=== PATIENT | male | born 1960 | race Caucasian/White ===

== ENCOUNTER → 2017-11-17 14:52 | Outpatient (CLI) | payer OTHER, SELFPAY ==
--- NOTE | 2017-11-17 14:56 | VDLE_ITS ---
Reason For Study: LEG PAIN RIGHT LEFT CFV is compressible, spontaneous, phasic, GSV is normal. competent and demonstrates normal CFV is compressible, spontaneous, phasic, augmentation. competent, and demonstrates normal Procedure augmentation. Exam performed in department. FV is compressible, spontaneous, phasic, A preliminary report was called and/or faxed competent and demonstrates normal to Renée Spaulding. augmentation. Acute deep vein thrombosis is noted in the left popliteal vein. Acute deep vein thrombosis noted in T/P trunk. Acute deep vein thrombosis is noted in the left peroneal vein. Acute deep vein thrombosis is noted in the left posterior tibial vein. Interpretation Summary Acute deep vein thrombosis is noted in the left popliteal vein. Acute deep vein thrombosis is noted in the left tibio-peroneal trunk. Acute deep vein thrombosis is noted in the left peroneal vein. Acute deep vein thrombosis is noted in the left posterior tibial vein. The left common femoral vein and femoral vein are patent, compressible, and competent. The left greater saphenous vein appears patent and compressible segmentally. Ordering Physician: Pancho Spaulding Referring Physician: Pancho Spaulding Performed By: Tatiana Kelsey RVT
== END ==
PROVIDERS: Family Provider Family Medicine; PCP Family Medicine; Visit Provider Physician Assistant Surgical
DX: M79.662 Pain in left lower leg (principal)
CPT/HCPCS: 93971

== ENCOUNTER → 2018-02-15 13:44 | Outpatient (CLI) | payer OTHER, SELFPAY ==
--- NOTE | 2018-02-15 09:39 | VDLE_ITS ---
Reason For Study: F/U DVT Procedure LEFT Exam performed in department. GSV is normal. CFV is compressible, spontaneous, phasic, competent, and demonstrates normal augmentation. FV is compressible, spontaneous, phasic, competent and demonstrates normal augmentation. POP V is compressible, spontaneous, phasic, competent and demonstrates normal augmentation. T/P Trunk is compressible. PTV is compressible. LT PerV is compressible. Interpretation Summary Deep veins of the left lower extremity are patent and compressible segmentally. There is no evidence of left lower extremity deep vein thrombosis. Valvular competence appears intact within the proximal deep venous system on the left . The left greater saphenous vein appears patent and compressible segmentally. Ordering Physician: Hao Kumari Referring Physician: Hao Kumari Performed By: Tatiana Kelsey RVT
--- NOTE | 2018-02-15 13:44 | DT_ITS ---
This patient was seen during an EMR downtime February 15, 2018 - February 22, 2018. This patient may have a combination of paper and electronic documentation or all paper documentation. All documentation is viewable within the e-chart portion of [employer] for each patient visit.
== END ==
PROVIDERS: Family Provider Family Medicine; PCP Family Medicine; Visit Provider Family Medicine
DX: I82.402 Acute embolism and thrombosis of unspecified deep veins of left lower extremity (principal)
CPT/HCPCS: 93970; 93971

== ENCOUNTER → 2018-03-01 12:15 | Outpatient (CLI) | payer OTHER, SELFPAY ==
--- NOTE | 2018-03-01 12:20 | RAD_ITS ---
STUDY: X-RAY CHEST REASON FOR EXAM: Male, 57 years old. Atypical chest pain. TECHNIQUE: PA and lateral views of the chest. COMPARISON: Comparison is made with prior study dated July 23, 2017. FINDINGS: Mild increased linear markings in the lingular segment of the left upper lobe. This may represent underlying atelectasis and/or early infiltrate. Follow-up is recommended. Scattered calcified granulomas. There is no demonstrated pleural abnormality. Normal size heart. Normal mediastinum and rubina. Normal visualized pulmonary arteries. Normal visualized aortic arch and descending thoracic aorta. There are mild degenerative changes of the visualized thoracic spine. Normal visualized ribs, clavicles, and shoulders. There is no demonstrated abnormality of the visualized soft tissue structures of the upper abdomen. RAD/Chest PA and Lateral IMPRESSION: Mild increased markings in the lingular segment of the left upper lobe. This may represent either linear atelectasis and/or early infiltrate. Follow-up is recommended. Electronically Signed: Al Beasley MD at 12:49 EDT Tel [phone], Service support ,
== END ==
PROVIDERS: Family Provider Family Medicine; PCP Family Medicine; Visit Provider Family Medicine
DX: R07.89 Other chest pain (principal)
CPT/HCPCS: 71046

== ENCOUNTER → 2018-04-09 11:19 | Outpatient (CLI) | payer OTHER, SELFPAY ==
--- NOTE | 2018-04-09 11:24 | CT_ITS ---
STUDY: CTA CHEST REASON FOR EXAM: Male, 57 years old. Worsening shortness of breath RADIATION DOSAGE (If Supplied By Facility): CTDIvol = ( 17.55 ) mGy, DLP = ( 1550.61 ) mGycm TECHNIQUE: The examination was performed with the intravenous administration of 100mL ml of Isovue 370 contrast material. Post-processing of the angiographic images was performed, with multiplanar reformation and 3D reconstruction. Individualized dose optimization techniques were used for this CT. COMPARISON: None. FINDINGS: Normal enhancement of the main pulmonary artery and right and left pulmonary arteries. Normal enhancement of the bilateral peripheral pulmonary arteries. There is no demonstrated pulmonary embolism. Normal thoracic aorta and visualized great vessels. There is no demonstrated aortic dissection. Normal heart and pericardium. Normal mediastinum. Normal hilar regions. There is peribronchial thickening. The lungs are well expanded. Normal pulmonary parenchyma. Normal pleura. Normal chest wall structures. There are degenerative changes of thoracic spine. Normal visualized upper abdomen. CT/CTA Chest W/WO Contrast IMPRESSION: No demonstrated PE, or thoracic aortic aneurysm or dissection No superimposed acute pulmonary process, evidence of chronic bronchitis Electronically Signed: Fernie Del Angel MD at 12:25 EDT , Service support ,
[2018-04-09 12:39] LABS: Anion Gap 9 (5-15); BUN 28 mg/dL (7-18); BUN/Creat Ratio 26.4 RATIO (10-20); Calcium,Total 8.7 mg/dL (8.5-10.1); Chloride 107 mmol/L (98-107); Creatinine, Serum 1.06 mg/dL (0.70-1.30); EST Glomerular Filtration Rate 76 mL/min (>60); Est Glom Filt Rate - Afr Amer 92 mL/min (>60); Glucose 94 mg/dL (74-106); Potassium 4.3 mmol/L (3.5-5.1); Sodium Level 141 mmol/L (136-145)
== END ==
PROVIDERS: Family Provider Family Medicine; PCP Family Medicine
DX: R06.00 Dyspnea, unspecified (principal)
CPT/HCPCS: 36415; 71275; 80048; Q9967

== ENCOUNTER → 2018-05-31 16:10 | Outpatient (CLI) | payer OTHER, SELFPAY ==
--- NOTE | 2018-05-31 16:40 | RAD_ITS ---
STUDY: X-RAY - LEFT ANKLE REASON FOR EXAM: Male, 58 years old. Left ankle pain TECHNIQUE: 3 view(s) of the ankle. COMPARISON: None. FINDINGS: Normal visualized distal tibia and fibula. Normal medial and lateral malleoli. Normal tibiotalar articulation and ankle mortise. Normal visualized talus and calcaneus. The visualized subtalar, talonavicular, calcaneocuboid and tarsal articulations are normal. The soft tissue structures are unremarkable. RAD/Ankle min 3 Views IMPRESSION: Normal x-ray examination of the ankle. Electronically Signed: Ángel Fernando DO at 12:38 EDT Tel , Service support ,
[2018-05-31 18:02] LABS: Uric Acid 6.4 mg/dL (3.5-7.2)
== END ==
PROVIDERS: Family Provider Family Medicine; PCP Family Medicine; Visit Provider Family Medicine
DX: M19.90 Unspecified osteoarthritis, unspecified site (principal)
CPT/HCPCS: 36415; 73610; 84550

== ENCOUNTER 2018-06-08 05:46 | Inpatient (IN) | payer OTHER, SELFPAY ==
[2018-06-08] VITALS (18 sets, daily range): BP systolic 98–138; BP diastolic 60–94; PULSE 74–156; RESP 14–18; TEMP 36.4–37; O2SAT 96–98; BMI 41.5; BMI 40.6; BMI 41.0
--- NOTE | 2018-06-08 05:49 | EKG12_ITS ---
Test Reason : CP Blood Pressure : / mmHG Vent. Rate : 160 BPM Atrial Rate : 178 BPM P-R Int : 000 ms QRS Dur : 078 ms QT Int : 272 ms P-R-T Axes : 000 002 166 degrees QTc Int : 443 ms Atrial fibrillation Nonspecific ST and T wave abnormality Abnormal ECG Confirmed by VIKTORIYA SHEA, VALENTINA ([id number]), editor city SIDDHARTH GUSTAFSON ([id number]) on 06/11/2018 2:03:54 PM Referred By: ROSANNA Confirmed By:VALENTINA SADLER MD
--- NOTE | 2018-06-08 05:49 | RAD_ITS ---
STUDY: X-RAY CHEST REASON FOR EXAM: Male, 58 years old. Chest pain with shortness of breath since 2200 last evening. TECHNIQUE: Single AP portable view of the chest. COMPARISON: March 01, 2018. FINDINGS: Cardiac monitoring leads are present. The lungs are expanded. There is mild prominence of bronchovascular markings. There is no demonstrated pleural abnormality. There is mild cardiac enlargement. Normal mediastinum and rubina. There is prominence of the pulmonary hilar arteries with peripheral pulmonary vascular congestion. There is atherosclerotic calcification of the aortic arch with tortuosity. Normal visualized thoracic spine. Normal visualized ribs, clavicles, and shoulders. There is no demonstrated abnormality of the visualized soft tissue structures of the upper abdomen. RAD/Chest 1 View (Portable) IMPRESSION: Mild cardiomegaly and pulmonary congestion. Electronically Signed: Darya Kumari MD at 6:43 EDT , Service support ,
--- NOTE | 2018-06-08 05:58 | ED.DCSUM_ITS ---
- ER Visit Summary Date of Service: 06/08/18 Chief Complaint: [] Chest pain History of Present Illness: The patient is a 58 M complaining of chest pain for last 8 hours. He was on light activity carrying some supplies in from outside. Is been a continuous waxing and waning pain in his chest diffusely. Current severity is mild. He took some Tylenol yesterday with moderate relief. Was able to sleep. Woke up and felt some palpitations intermittent weakness and some mild shortness of breath. He is never had A. fib and his last stress test was 2 years ago. It was normal per patient he is never had a heart cath. He has been having chest pain on and off for the last 6 months with negative workups. He did have a remote DVT and finished his blood thinning medications. He was unsure why that happened. Never had a PE. Physical Examination: [] Vital signs reviewed General: Well-nourished well-developed Head: Normocephalic atraumatic Eyes: Pupils equal round and reactive to light extraocular movements intact ENT: TMs clear no hemotympanum no trauma Neck: Nontender full range of motion Cardiovascular: Regular tachycardia no murmurs normal S1-S2 Respiratory: No distress clear to auscultation bilaterally chest nontender Abdomen: Soft nontender nondistended normal bowel sounds no masses Back: Nontender no CVA tenderness Extremities: Nontender active range of motion ?4 extremities no trauma Skin: Normal color no trauma Neuro alert oriented cranial nerves II through XII intact normal strength sensation reflexes Test Results: [] Emergency Department Course and Treatment: [] EKG shows atrial fibrillation at a rate of 160. No STEMI. Change from prior. Lab work obtained. Patient given oral aspirin and intravenous Cardizem. Chest x-ray obtained. Chest x-ray shows very mild pulmonary vascular congestion. CBC chemistry normal. Troponin negative. TSH normal. Patient heart rate responded dose of Cardizem. Heart rate in the 80s and asymptomatic after treatment. He will be admitted. Treatment Plan: [] Disposition: [] Impression: [] Atrial fibrillation with rapid ventricular response Chest pain secondary to A. fib with RVR Critical CARE time: 30-74 minutes This note was generated with [employer] dictation software. It may contain incorrect words, spelling, and punctuation that were not noted in review of the chart prior to signing ED Disposition - Plan for ED Patient: Chief Complaint: Chest Pain Referrals: Hao Kumari MD [Primary Care Provider] -
[2018-06-08] MEDS: dilTIAZem 25 MG/5 ML Vial 20 MG IV BOLUS (06:06)
[2018-06-08] MEDS: Aspirin 81 MG TAB.CHEW 324 MG PO (06:06)
[2018-06-08 06:18] LABS: Absolute Lymphocyte Count 2.49 X10^3/ul (0.83-4.51); Absolute Neutrophil Count 6.7 X10^3/uL (2.0-7.7); Basophil# 0.06 X10^3/uL; Basophil% 0.6 % (0-1); Eosinophil# 0.24 X10^3/uL; Eosinophils% 2.2 % (0-5); Hematocrit 44.7 % (40-54); Hemoglobin 15.3 g/dl (13.0-16.5); Lymphocyte # 2.49 X10^3/ul (4.0); Lymphocyte % 23.1 % (19-41); Mean Corp Hgb Conc 34.2 g/gl (32-36); Mean Corpuscular Hgb 32.6 pg (27.0-32.0); Mean Corpuscular Volume 95.1 fL (80-94); Mean Platelet Vol. 9.7 fl (6.2-12.0); Monocyte# 1.16 X10^3/uL; Monocyte% 10.8 % (0-10); Neutrophil # 6.69 X10^3/uL (2.7-7.7); Platelet Count 260 K/mm3 (150-450); RBC Distribution Width CV 13.2 % (11.6-14.6); RBC Distribution Width SD 44.6 fl (35.1-43.9); White Blood Count 10.8 K/mm3 (4.4-11.0)
[2018-06-08 06:19] LABS: POSITIVE COUNT NO; POSITIVE DIFFERENTIAL NO; POSITIVE MORPHOLOGY NO
[2018-06-08 06:45] LABS: Anion Gap 8 (5-15); BUN 28 mg/dL (7-18); BUN/Creat Ratio 25.9 RATIO (10-20); Calcium,Total 9.1 mg/dL (8.5-10.1); Chloride 104 mmol/L (98-107); Creatinine, Serum 1.08 mg/dL (0.70-1.30); EST Glomerular Filtration Rate 74 mL/min (>60); Est Glom Filt Rate - Afr Amer 90 mL/min (>60); Estimated Creatinine Clearance 77.47 ml/min; Glucose 115 mg/dL (74-106); Potassium 3.9 mmol/L (3.5-5.1); Sodium Level 139 mmol/L (136-145); Thyroid Stim Hormone (TSH) 2.39 uIU/mL (0.358-3.74)
--- NOTE | 2018-06-08 07:25 | PCM.HP.STD ---
Problem List (1) Dyspnea Status: Acute (2) Afib Status: Acute (3) Elevated d-dimer Status: Acute (4) Chest pain Status: Acute (5) BMI greater than 40 Status: Chronic (6) CORRINA (obstructive sleep apnea) Status: Chronic (7) Pain of left calf Status: Chronic (8) Acute bronchitis Status: Chronic Qualifiers: Bronchitis organism: unspecified organism Qualified Code(s): J20.9 - Acute bronchitis, unspecified; J20.9 - Acute bronchitis, unspecified (9) Anxiety Status: Chronic (10) Benign essential hypertension Status: Chronic (11) Gastroesophageal reflux disease Status: Chronic (12) Hyperlipidemia Status: Chronic (13) Back pain Status: Chronic History of Present Illness Date of Admission: 06/08/18 Chief Complaint: Shortness of breath The patient is a 58 year old M with past medical history cigar for hypertension who presented with shortness of breath and chest pain. The patient is shortness of breath has been ongoing for the past couple of weeks. He does notice shortness of breath with minimal exertion. He is also developed intermittent chest pain. Had been seen and evaluated by his primary care physician treated as a case of possible bronchitis his symptoms however persist symptoms became more intense on the night prior to his admission. Patient subsequently presented to the emergency department EKG on admission done demonstrated A. fib with RVR did receive Cardizem and subsequently admitted to a monitored bed for further management. Past Medical History Past Medical History (Chronic Problems): Chronic Problems (Last Reviewed 11/17/17 @ 06:39 by Peyton May) BMI greater than 40 (Chronic) CORRINA (obstructive sleep apnea) (Chronic) Pain of left calf (Chronic) Acute bronchitis (Chronic) Anxiety (Chronic) Benign essential hypertension (Chronic) Gastroesophageal reflux disease (Chronic) Hyperlipidemia (Chronic) Back pain (Chronic) Medical History: Medical History (Last Reviewed 11/17/17 @ 06:39 by Peyton May) Arthritis M19.90 Asthma J45.909 Hernia K46.9 HTN (hypertension) I10 Allergies No Known Allergies Allergy (Verified 06/08/18 05:46) Home Medications: Ambulatory Orders Medication Instructions Recorded Atorvastatin Calcium [Lipitor] 10 mg PO DAILY 06/08/18 Benazepril HCl 40 mg PO DAILY 06/08/18 Omeprazole 20 mg PO BID 06/08/18 Prednisone 20 mg PO DAILY 06/08/18 Triamterene 37.5MG/Hctz 25MG 1 cap PO DAILY 06/08/18 [Dyazide (G)] Surgical History: Surgical History (Last Reviewed 11/17/17 @ 06:39 by Peyton May) History of hip surgery Z98.890 Surgical History: no surgical history Smoking Status: Never smoker - *Family History Maternal History Items: Heart Disease Review of Systems Constitutional: Denies: Anorexia, Chills, Fever, Night Sweats, Weight Change HEENT: Denies: Head Aches, Sinus Congestion, Sinus Drainage Cardiovascular: Reports: Chest Pain. Denies: Orthopnea, Palpitations, Paroxysmal Noc. Dyspnea Respiratory: Reports: Shortness of breath upon exertion. Denies: Cough, Sputum production Gastrointestinal: Denies: Abdominal Pain, Hematemesis, Hematochezia, Nausea, Melena, Vomiting Genitourinary: Denies: Dysuria, Frequency, Hematuria, Urgency Musculoskeletal: Reports: Leg Pain. Denies: Joint Pain, Joint Tenderness Skin: Denies: Rash Neurological: Denies: Focal weakness, Numbness, Tingling Psychiatric: Denies: Homicidal Ideations, Suicidal Ideations Hematologic/ Lymphatic: Denies: Easy Bruising, Easy Bleeding VTE Information - Inpt Only VTE Present on Admission: No VTE Mechan Device Prophylaxis: Knee High NOAH Hose VTE Pharm Prophylaxis ordered?: Yes Patient Problems: Active and Suspected Problems (Last Reviewed 11/17/17 @ 06:39 by Peyton May) Dyspnea (Acute) Afib (Acute) Elevated d-dimer (Acute) Chest pain (Acute) - Physical Exam General: Alert, Oriented x3, Cooperative HEENT: Atraumatic Neck: Supple, No JVD, Thyroid Normal Size and Texture Lungs: No wheeze, Diminished Cardiovascular: Regular rate, Normal S1, Normal S2, PMI Normal, No rub noted Abdomen: Bowel Sounds Present, Soft, Non Tender Extremities: No clubbing, No cyanosis, No edema Skin: No rashes Musculoskeletal: - - Full range of motion in all major muscle groups. Lymphatic: No Cervical, Supraclavicular, or Inguinal Adenopathy Neurological: Neuro grossly intact Psych/Mental Status: Normal Affect Vital Signs Temp Pulse Resp BP Pulse Ox 98.1 F 102 H 18 98/74 98 06/08/18 05:47 06/08/18 07:20 06/08/18 07:20 06/08/18 07:20 06/08/18 07:20 Oxygen Flow Rate (L/min) 2 Oxygen Delivery Method Nasal Cannula Weight: 135 kg Body Mass Index (BMI) 41.5 Laboratory Tests Past 24 Hrs 06/08/18 06/08/18 06:00 06:00 WBC 10.8 RBC 4.70 Hgb 15.3 Hct 44.7 MCV 95.1 H MCH 32.6 H MCHC 34.2 RDW 13.2 RDW Differential 44.6 H Plt Count 260 MPV 9.7 Immature Gran % (Auto) 1.300 H Neut % (Auto) 62.0 Lymph % (Auto) 23.1 [place] % (Auto) 10.8 H Eos % (Auto) 2.2 Baso % (Auto) 0.6 Absolute Neuts (auto) 6.7 Absolute Lymphs (auto) 2.49 Total Counted Not Reportable Sodium 139 Potassium 3.9 Chloride 104 Carbon Dioxide 27.0 Anion Gap 8 BUN 28 H Creatinine 1.08 Estim Creat Clear Calc 77.47 Est GFR (MDRD) Af Amer 90 Est GFR (MDRD) Non-Af 74 BUN/Creatinine Ratio 25.9 H Glucose 115 H Calcium 9.1 Troponin I < 0.015 TSH 2.39 Assessment/Plan All Active Problems (Last Reviewed 11/17/17 @ 06:39 by Peyton May) Dyspnea (Acute) Afib (Acute) Elevated d-dimer (Acute) Chest pain (Acute) Patient is a 58-year-old gentleman presenting with chest pain, shortness of breath. Found to have A. fib with RVR on admission 1. New onset A. fib with RVR: Patient has been admitted to a monitored bed was started on Cardizem drip prior to patient being admitted. As part of his evaluation ordered serial cardiac enzymes 2D echo d-dimer TSH and nuclear stress test to be performed on 06/09/2018 2. Elevated d-dimer; ordered a CTA of the chest as well as the bilateral venous duplex to rule out VTE patient already on therapeutic dose of Lovenox as part of treatment of his new onset A. fib 3. Morbid obesity with BMI of 41.5 lifestyle modification including weight loss advised 4. GERD patient is on PPI 5. Obstructive sleep apnea diagnosed several years ago patient did not tolerate his CPAP ordered did discuss the patient on the need to undergo repeat sleep study as outpatient 6. Hypertension-blood pressure controlled, home medications continued with dose adjustment as needed 7. DVT prophylaxis Lovenox Code Visit Inpatient E&M: 15574 [facility] L3
--- NOTE | 2018-06-08 08:08 | ECHOCS_ITS ---
Reason For Study: DYSPNEA Procedure This was a 2D Doppler, Color Flow transthoracic echocardiogram. The study was technically difficult. Contrast injection was performed. Exam performed portable in patient room. Left Ventricle Normal LV size. Left ventricular systolic function is normal. The estimated ejection fraction is 65 %. Normal diastology for age. No regional wall motion abnormalities noted. Right Ventricle Normal RV size. Normal systolic function. Atria Normal left atrium. Normal right atrium. No doppler evidence for ASD. Mitral Valve There is no mitral annular calcification. Normal mitral valve. Trivial mitral valve insufficiency. Tricuspid Valve Normal tricuspid valve. Trivial tricuspid valve insufficiency. Right ventricular systolic pressure estimated to be 29 mmHg. Aortic Valve Trisinus/trileaflet aortic valve. Mild focal aortic valve thickening. Pulmonic Valve The pulmonic valve is not well visualized. Great Vessels Normal sized aortic root. Pericardium/Pleural No pericardial effusion. Medication Diluted definity 3ml given slow IV push to enhance endocardial definition. MMode/2D Measurements & Calculations LVIDd: 4.4 cm IVSd: 1.1 cm Ao root diam: 3.2 cm LVIDs: 3.1 cm LVPWd: 0.90 cm LA dimension: 3.0 cm RVDd: 3.5 cm FS: 30.2 % LAV(MOD-bp): 38.5 ml LVAd ap4: 26.5 cm2 SV(MOD-sp4): 46.0 ml LAV(MOD-bp) Indexed: 15.5 ml/m2 EDV(MOD-sp4): 70.1 ml LAV(MOD-sp2): 59.9 ml EDV(sp4-el): 72.9 ml LAV(MOD-sp4): 25.4 ml LVAs ap4: 14.5 cm2 ESV(MOD-sp4): 24.1 ml ESV(sp4-el): 25.5 ml EF(MOD-sp4): 65.6 % EF(sp4-el): 65.0 % SV(sp4-el): 47.4 ml LA A4 area: 12.9 cm2 RA A4 area: 13.6 cm2 Time Measurements MV dec time: 0.28 sec Doppler Measurements & Calculations MV E max bala: 56.4 cm/sec Lat Peak E' Bala: 7.9 cm/sec Med Peak E' Bala: 5.5 cm/sec MV A max bala: 65.8 cm/sec E/E' lat: 7.2 E/E' med: 10.3 MV E/A: 0.86 Ao V2 max: 109.1 cm/sec LV V1 max: 101.8 cm/sec PA V2 max: 80.7 cm/sec Ao max P.8 mmHg LV V1 max P.2 mmHg PI end-d bala: 120.6 cm/sec TR max bala: 229.3 cm/sec TR max P.0 mmHg Interpretation Summary The study was technically difficult. Contrast injection was performed. Left ventricular systolic function is normal. The estimated ejection fraction is 65 %. Trivial mitral valve insufficiency. Trivial tricuspid valve insufficiency. Mild focal aortic valve thickening. Right ventricular systolic pressure estimated to be 29 mmHg. Normal diastology for age. Ordering Physician: Sidney Dominguez Referring Physician: Harish Lr Performed By: Jennifer Avendaño RDCS, RVT
--- NOTE | 2018-06-08 08:17 | EKG12_ITS ---
Test Reason : ADMISSION EKG FOR CP Blood Pressure : / mmHG Vent. Rate : 078 BPM Atrial Rate : 078 BPM P-R Int : 156 ms QRS Dur : 086 ms QT Int : 340 ms P-R-T Axes : -04 000 -03 degrees QTc Int : 387 ms Normal sinus rhythm with sinus arrhythmia Normal ECG When compared with ECG of 08-JUN-2018 05:46, MANUAL COMPARISON REQUIRED, DATA IS UNCONFIRMED Confirmed by VIKTORIYA SHEA, VALENTINA ([id number]), online content editor SIDDHARTH GUSTAFSON ([id number]) on 06/11/2018 2:31:55 PM Referred By: YUAN Confirmed By:VALENTINA SALDER MD
[2018-06-08 08:25] LABS: D-Dimer Quantitative (DVT/PE) 1.55 FEU/ug/m (0.27-0.49)
--- NOTE | 2018-06-08 08:29 | CT_ITS ---
STUDY: CTA CHEST REASON FOR EXAM: Male, 58 years old. Elevated d-dimer. RADIATION DOSAGE (If Supplied By Facility): CTDIvol = ( 28.56 ) mGy, DLP = ( 1136.56 ) mGycm TECHNIQUE: The examination was performed with the intravenous administration of 100CC ml of Isovue 370 contrast material. Post-processing of the angiographic images was performed, with multiplanar reformation and 3D reconstruction. Individualized dose optimization techniques were used for this CT. COMPARISON: Comparison is made with prior study dated April 09, 2018. FINDINGS: Nonocclusive intraluminal filling defect are seen in the right upper lobe pulmonary arterial branches. Normal thoracic aorta and visualized great vessels. There is no demonstrated aortic dissection. Normal heart and pericardium. Normal mediastinum. Normal hilar regions. Normal visualized trachea and bronchi. The lungs are well expanded. Increased linear markings with areas of confluence at the left lung base suggestive of atelectasis and/or scarring. Normal pleura. Normal chest wall structures. There are degenerative changes of thoracic spine. Normal visualized upper abdomen. CT/CTA Chest W/WO Contrast IMPRESSION: Small intraluminal filling defects in branches of the right upper lobe pulmonary artery. This is in keeping with pulmonary embolism. Electronically Signed: Al Beasley MD at 13:02 EDT Tel [phone], Service support ,
--- NOTE | 2018-06-08 08:30 | VDLE_ITS ---
Reason For Study: Elevated D-dimer RIGHT LEFT GSV is normal. GSV is normal. CFV is compressible, spontaneous, phasic, CFV is compressible, spontaneous, phasic, competent and demonstrates normal competent, and demonstrates normal augmentation. augmentation. FV is compressible, spontaneous, phasic, FV is compressible, spontaneous, phasic, competent and demonstrates normal competent and demonstrates normal augmentation. augmentation. POP V is compressible, spontaneous, phasic, POP V is compressible, spontaneous, phasic, competent and demonstrates normal competent and demonstrates normal augmentation. augmentation. T/P Trunk is compressible. T/P Trunk is compressible. PTV is compressible. PTV is compressible. RT PerV is compressible. LT PerV is compressible. Procedure Exam performed portable in patient room. A preliminary report was called and/or faxed to U. Interpretation Summary Deep veins of the lower extremities are bilaterally patent and compressible segmentally. There is no evidence of deep vein thrombosis on either side. Valvular competence appears intact within the proximal deep venous systems bilaterally. The greater saphenous veins appear bilaterally patent and compressible segmentally. Ordering Physician: Sidney Dominguez Referring Physician: Hao Kumari M.D. Performed By: Tatiana Kelsey RVT and Student
[2018-06-08 09:05] LABS: BNP,B-Type NATRIURETIC PEPTIDE 44.4 pg/mL (0-100)
[2018-06-08] MEDS: Pantoprazole Sodium 20 MG Tablet PO ×2 (11:12→21:26)
[2018-06-08] MEDS: Triamterene 37.5MG/Hctz 25MG Capsule 1 CAP PO (11:12)
[2018-06-08] MEDS: Lisinopril 40 MG Tablet PO (11:13)
[2018-06-08] MEDS: predniSONE 20 MG Tablet PO (12:55)
[2018-06-08] MEDS: Atorvastatin Calcium 10 MG Tablet PO (21:26)
[2018-06-09 03:04] VITALS: PULSE 75
[2018-06-09 03:13] VITALS: BP 135/64; PULSE 76; RESP 16; TEMP 36.6; O2SAT 95
[2018-06-09 06:35] LABS: Anion Gap 8 (5-15); BUN 27 mg/dL (7-18); BUN/Creat Ratio 27.2 RATIO (10-20); Calcium,Total 8.8 mg/dL (8.5-10.1); Chloride 106 mmol/L (98-107); Creatinine, Serum 0.99 mg/dL (0.70-1.30); EST Glomerular Filtration Rate 82 mL/min (>60); Est Glom Filt Rate - Afr Amer 99 mL/min (>60); Estimated Creatinine Clearance 84.51 ml/min; Glucose 98 mg/dL (74-106); Potassium 4.5 mmol/L (3.5-5.1); Sodium Level 137 mmol/L (136-145)
[2018-06-09 07:12] VITALS: PULSE 72
[2018-06-09 08:27] VITALS: BP 123/68; PULSE 80; RESP 16; TEMP 36.4; O2SAT 98
[2018-06-09] MEDS: Furosemide 100 MG/10 ML Vial 80 MG IV (08:37)
--- NOTE | 2018-06-09 10:04 | CASEMGMT ---
Face to Face with patient for initial transition planning/care coordination assessment. OLY KAN introduced self and role at [facility], pt voices understanding and consents to assessment at this time. Pt is sitting up in chair in no distress at this time. Pt is A/O x4 at this time and answers all questions appropriately at this time. Care providers, pharmacy, and demographics verified. See attached link. Pt voices no further concerns/needs at this time. Advised pt to ask for CM if any further questions/concerns/needs arise, voices understanding. Pt to be sent home on Eliquis and this OLY KAN will check co-pay prior to discharge. Pt states has been on med before and he remembers, it was 'a little pricey.' This OLY KAN advised pt that we can provide an Eliquis co-pay card as well, voices understanding. PLAN[place] O[place] KAN
[2018-06-09] MEDS: Pantoprazole Sodium 20 MG Tablet PO (10:23)
[2018-06-09] MEDS: Triamterene 37.5MG/Hctz 25MG Capsule 1 CAP PO (10:23)
[2018-06-09] MEDS: Lisinopril 40 MG Tablet PO (10:23)
[2018-06-09] MEDS: APIXABAN 5 MG TABLET 10 MG PO (10:24)
--- NOTE | 2018-06-09 10:30 | DCINST_ITS ---
- Discharge Diagnoses Current Active Problems: Current Active and Chronic Problems (Last Reviewed 11/17/17 @ 06:39 by Peyton May) Dyspnea (Acute) Afib (Acute) Elevated d-dimer (Acute) Chest pain (Acute) BMI greater than 40 (Chronic) CORRINA (obstructive sleep apnea) (Chronic) You will use the following diet at home:: No restrictions Discharge Activity: Return to Normal Activity Allergies/Adverse Reactions: Allergies No Known Allergies Allergy (Verified 06/08/18 05:46) Medications to take at Discharge Atorvastatin Calcium [Lipitor] 10 mg PO DAILY 06/08/18 Benazepril HCl 40 mg PO DAILY 06/08/18 Omeprazole 20 mg PO BID 06/08/18 Triamterene 37.5MG/Hctz 25MG [Dyazide (G)] 1 cap PO DAILY 06/08/18 Apixaban [Eliquis] 5 mg PO BID #90 tablet 06/09/18 The following prescriptions were given: Apixaban [Eliquis] 5 mg PO BID #90 tablet Primary Care Physician: Hao Kumari MD [Primary Care Provider] - Please follow up with your Primary Care Physician in: IN 5-7 DAYS Test Results: Test results from this visit will be discussed in further detail at your follow- up appointment, if applicable. Proposed Discharge Date: 06/09/18
--- NOTE | 2018-06-09 10:32 | PCM.DC.SUM ---
Discharge Date and Diagnosis - Problem List Patient Problems: Active and Suspected Problems (Last Reviewed 11/17/17 @ 06:39 by Peyton May) Pulmonary embolism (Acute) Dyspnea (Acute) Afib (Acute) Elevated d-dimer (Acute) Chest pain (Acute) Date of Admission: 06/08/18 Date of Discharge: 06/09/18 - Primary Discharge Diagnosis Active and Suspected Problems (Last Reviewed 11/17/17 @ 06:39 by Peyton May) Pulmonary embolism (Acute) Dyspnea (Acute) Afib (Acute) Elevated d-dimer (Acute) Chest pain (Acute) - Secondary Discharge Diagnosis Chronic Problems (Last Reviewed 11/17/17 @ 06:39 by Peyton May) BMI greater than 40 (Chronic) CORRINA (obstructive sleep apnea) (Chronic) Pain of left calf (Chronic) Acute bronchitis (Chronic) Anxiety (Chronic) Benign essential hypertension (Chronic) Gastroesophageal reflux disease (Chronic) Hyperlipidemia (Chronic) Back pain (Chronic) Hospital Course and Treatment Imaging Results: Clinical Impression(s) from Imaging Studies Chest X-Ray 06/08/18 05:49 IMPRESSION: Mild cardiomegaly and pulmonary congestion. Electronically Signed: Darya Kumari MD at 6:43 EDT , Service support , Chest CTA 06/08/18 08:29 IMPRESSION: Small intraluminal filling defects in branches of the right upper lobe pulmonary artery. This is in keeping with pulmonary embolism. Electronically Signed: Al Beasley MD at 13:02 EDT Tel [phone], Service support , Summary of Care Provided: T Patient is a 58-year-old gentleman presenting with chest pain, shortness of breath. Found to have A. fib with RVR on admission 1. Acute pulmonary embolism involving the right upper lobe. Patient presented with new onset A. fib chest discomfort exertional dyspnea as well as elevated d-dimer. CTA of the chest obtained demonstrated; Small intraluminal filling defects in branches of the right upper lobe pulmonary artery in keeping with pulmonary embolism. Patient had initially been started on Lovenox this was transitioned to Eliquis on discharge. Patient was instructed to take the Eliquis 510 mg p.o. twice daily for 7 days and then switch to 5 mg p.o. twice daily indefinitely. 2. Transient A. fib possibly preceded by above of note patient was discharged home on systemic anticoagulation. His heart rate was however controlled he was therefore not discharged home on any rate controlling agents 3. Morbid obesity with BMI of 41.5 lifestyle modification including weight loss advised 4. GERD patient is on PPI 5. Obstructive sleep apnea diagnosed several years ago patient did not tolerate his CPAP ordered did discuss the patient on the need to undergo repeat sleep study as outpatient patient was instructed to follow-up with Dr. Kumari his PCP as soon as possible to have the sleep study ordered 6. Hypertension-blood pressure controlled, home medications continued with dose adjustment as needed 7. DVT prophylaxis Lovenox Physical examination at the time of discharge GENERAL: cooperative and in no apparent distress. HEENT: Atraumatic moist oral mucosa EYES; Anicteric, Normal Conjunctiva NECK; supple, normal thyroid, no distended JVD. RESPIRATORY: Diminished to auscultation bilaterally, CARDIOVASCULAR: Regular S1 S2, no audible murmurs GI: soft, non-tender, normoactive bowel sounds, SKIN: No Rash PSYCH; Normal affect Discharge Diet: No Restrictions Discharge Activity: Return to Normal Activity Home Medications: Medications to take at Discharge Atorvastatin Calcium [Lipitor] 10 mg PO DAILY 06/08/18 Benazepril HCl 40 mg PO DAILY 06/08/18 Omeprazole 20 mg PO BID 06/08/18 Triamterene 37.5MG/Hctz 25MG [Dyazide (G)] 1 cap PO DAILY 06/08/18 Apixaban [Eliquis] 5 mg PO BID #90 tablet 06/09/18 Following Prescrptions Were Given to Patient: Apixaban [Eliquis] 5 mg PO BID #90 tablet Primary Care Physician: Hao Kumari MD [Primary Care Provider] - Please follow up with your Primary Care Physician in: [place] 5-7 DAYS Disposition: Home Minutes spent on discharge:: 35 Medical Necessity - Tobacco Use Smoking Status: Never smoker Meaningful Use Info Meaningful Use Diagnoses (Choose all that apply): VTE - VTE Anticoag overlap given w/in hospital stay or rx'd at or?: No Pt receive overlap for 5 days?: No Reason overlap not ordered, prescribed, or given for 5 days: Treatment Not Indicated Code Visit Inpatient E&M: 36401 Disch Hosp
--- NOTE | 2018-06-09 10:35 | DS.PCM_ITS ---
Discharge Date and Diagnosis - Problem List Patient Problems: Active and Suspected Problems (Last Reviewed 11/17/17 @ 06:39 by Peyton May) Pulmonary embolism (Acute) Dyspnea (Acute) Afib (Acute) Elevated d-dimer (Acute) Chest pain (Acute) Date of Admission: 06/08/18 Date of Discharge: 06/09/18 - Primary Discharge Diagnosis Active and Suspected Problems (Last Reviewed 11/17/17 @ 06:39 by Peyton May) Pulmonary embolism (Acute) Dyspnea (Acute) Afib (Acute) Elevated d-dimer (Acute) Chest pain (Acute) - Secondary Discharge Diagnosis Chronic Problems (Last Reviewed 11/17/17 @ 06:39 by Peyton May) BMI greater than 40 (Chronic) CORRINA (obstructive sleep apnea) (Chronic) Pain of left calf (Chronic) Acute bronchitis (Chronic) Anxiety (Chronic) Benign essential hypertension (Chronic) Gastroesophageal reflux disease (Chronic) Hyperlipidemia (Chronic) Back pain (Chronic) Hospital Course and Treatment Imaging Results: Clinical Impression(s) from Imaging Studies Chest X-Ray 06/08/18 05:49 IMPRESSION: Mild cardiomegaly and pulmonary congestion. Electronically Signed: Darya Kumari MD at 6:43 EDT , Service support , Chest CTA 06/08/18 08:29 IMPRESSION: Small intraluminal filling defects in branches of the right upper lobe pulmonary artery. This is in keeping with pulmonary embolism. Electronically Signed: Al Beasley MD at 13:02 EDT Tel [phone], Service support , Summary of Care Provided: T Patient is a 58-year-old gentleman presenting with chest pain, shortness of breath. Found to have A. fib with RVR on admission 1. Acute pulmonary embolism involving the right upper lobe. Patient presented with new onset A. fib chest discomfort exertional dyspnea as well as elevated d-dimer. CTA of the chest obtained demonstrated; Small intraluminal filling defects in branches of the right upper lobe pulmonary artery in keeping with pulmonary embolism. Patient had initially been started on Lovenox this was transitioned to Eliquis on discharge. Patient was instructed to take the Eliquis 510 mg p.o. twice daily for 7 days and then switch to 5 mg p.o. twice daily indefinitely. 2. Transient A. fib possibly preceded by above of note patient was discharged home on systemic anticoagulation. His heart rate was however controlled he was therefore not discharged home on any rate controlling agents 3. Morbid obesity with BMI of 41.5 lifestyle modification including weight loss advised 4. GERD patient is on PPI 5. Obstructive sleep apnea diagnosed several years ago patient did not tolerate his CPAP ordered did discuss the patient on the need to undergo repeat sleep study as outpatient patient was instructed to follow-up with Dr. Kumari his PCP as soon as possible to have the sleep study ordered 6. Hypertension-blood pressure controlled, home medications continued with dose adjustment as needed 7. DVT prophylaxis Lovenox Physical examination at the time of discharge GENERAL: cooperative and in no apparent distress. HEENT: Atraumatic moist oral mucosa EYES; Anicteric, Normal Conjunctiva NECK; supple, normal thyroid, no distended JVD. RESPIRATORY: Diminished to auscultation bilaterally, CARDIOVASCULAR: Regular S1 S2, no audible murmurs GI: soft, non-tender, normoactive bowel sounds, SKIN: No Rash PSYCH; Normal affect Discharge Diet: No Restrictions Discharge Activity: Return to Normal Activity Home Medications: Medications to take at Discharge Atorvastatin Calcium [Lipitor] 10 mg PO DAILY 06/08/18 Benazepril HCl 40 mg PO DAILY 06/08/18 Omeprazole 20 mg PO BID 06/08/18 Triamterene 37.5MG/Hctz 25MG [Dyazide (G)] 1 cap PO DAILY 06/08/18 Apixaban [Eliquis] 5 mg PO BID #90 tablet 06/09/18 Following Prescrptions Were Given to Patient: Apixaban [Eliquis] 5 mg PO BID #90 tablet Primary Care Physician: Hao Kumari MD [Primary Care Provider] - Please follow up with your Primary Care Physician in: [place] 5-7 DAYS Disposition: Home Minutes spent on discharge:: 35 Medical Necessity - Tobacco Use Smoking Status: Never smoker Meaningful Use Info Meaningful Use Diagnoses (Choose all that apply): VTE - VTE Anticoag overlap given w/in hospital stay or rx'd at [place]?: No Pt receive overlap for 5 days?: No Reason overlap not ordered, prescribed, or given for 5 days: Treatment Not Indicated Code Visit Inpatient E&M: 52063 Disch Hosp
--- NOTE | 2018-06-09 11:02 | CASEMGMT ---
Per Dr. Dominguez, pt to go home on Eliquis and script e-scribed to [facility]. Call to pharmacist at [facility] and he states pt's co-pay is about $80 for 90 day supply. Pt provided with a $10 co-pay card and voices understanding. Sly ALDRIDGE CM
== END 2018-06-09 11:37 | disposition home or self-care (01) | DRG 176 ==
LOC: ED 07:02 → PCU 07:28
PROVIDERS: Admitting Provider Internal Medicine; Emergency Provider Emergency Medicine; Family Provider Family Medicine; PCP Family Medicine; Visit Provider Internal Medicine
DX: I26.99 Other pulmonary embolism without acute cor pulmonale (principal); Z68.41 Body mass index [BMI] 40.0-44.9, adult; Z23 Encounter for immunization; I48.91 Unspecified atrial fibrillation; E66.01 Morbid (severe) obesity due to excess calories; G47.33 Obstructive sleep apnea (adult) (pediatric); K21.9 Gastro-esophageal reflux disease without esophagitis; I10 Essential (primary) hypertension; E78.5 Hyperlipidemia, unspecified
CPT/HCPCS: 36415; 71045; 71275; 80048; 83880; 84443; 84484; 85025; 85379; 93005; 93306; 93970; 99251; 99285; Q9957; Q9967; 90686; A4216; C8929; G0463; J1940

== ENCOUNTER 2018-06-10 09:38 | Emergency (ER) | payer OTHER, SELFPAY ==
[2018-06-10] VITALS (7 sets, daily range): BP systolic 114–140; BP diastolic 59–82; PULSE 81–100; RESP 14–90; TEMP 36.1; O2SAT 97–100; BMI 40.3
--- NOTE | 2018-06-10 09:49 | RAD_ITS ---
STUDY: X-RAY CHEST REASON FOR EXAM: Male, 58 years old. Chest pain and shortness of breath. TECHNIQUE: Single AP portable view of the chest. COMPARISON: Comparison is made with prior examination dated June 08, 2018 FINDINGS: EKG electrodes are seen. The lungs are clear and expanded. There is no demonstrated pleural abnormality. There is mild cardiac enlargement. Normal mediastinum and rubina. Normal visualized pulmonary arteries. There is atherosclerotic tortuosity of the aortic arch and descending thoracic aorta. There are diffuse degenerative changes of the visualized thoracic spine. Normal visualized ribs, clavicles, and shoulders. There is no demonstrated abnormality of the visualized soft tissue structures of the upper abdomen. RAD/Chest 1 View (Portable) IMPRESSION: Cardiomegaly. The lungs are clear. Electronically Signed: Al Beasley MD at 10:16 EDT Tel [phone], Service support ,
--- NOTE | 2018-06-10 09:49 | EKG12_ITS ---
Test Reason : CP Blood Pressure : / mmHG Vent. Rate : 089 BPM Atrial Rate : 089 BPM P-R Int : 148 ms QRS Dur : 078 ms QT Int : 364 ms P-R-T Axes : 011 007 018 degrees QTc Int : 442 ms Sinus rhythm with Premature atrial complexes Otherwise normal ECG Confirmed by VIKTORIYA SHEA, VALENTINA ([id number]), photo editor SIDDHARTH GUSTAFSON ([id number]) on 06/14/2018 2:41:43 PM Referred By: Harish Lr Confirmed By:VALENTINA SADLER MD
[2018-06-10 10:00] LABS: Absolute Lymphocyte Count 1.74 X10^3/ul (0.83-4.51); Basophil# 0.04 X10^3/uL; Basophil% 0.5 % (0-1); Eosinophil# 0.17 X10^3/uL; Eosinophils% 1.9 % (0-5); Hematocrit 44.9 % (40-54); Hemoglobin 15.2 g/dl (13.0-16.5); Lymphocyte # 1.74 X10^3/ul (4.0); Lymphocyte % 19.7 % (19-41); Mean Corp Hgb Conc 33.9 g/gl (32-36); Mean Corpuscular Hgb 32.5 pg (27.0-32.0); Mean Corpuscular Volume 95.9 fL (80-94); Mean Platelet Vol. 9.5 fl (6.2-12.0); Monocyte# 0.87 X10^3/uL; Monocyte% 9.9 % (0-10); Neutrophil # 5.95 X10^3/uL (2.7-7.7); Neutrophil % 67.4 % (47-70); POSITIVE COUNT NO; POSITIVE DIFFERENTIAL NO; POSITIVE MORPHOLOGY NO; Platelet Count 221 K/mm3 (150-450); RBC Distribution Width CV 13.3 % (11.6-14.6); RBC Distribution Width SD 45.7 fl (35.1-43.9); Red Blood Count 4.68 M/mm3 (4.6-6.2); White Blood Count 8.8 K/mm3 (4.4-11.0)
--- NOTE | 2018-06-10 10:11 | CT_ITS ---
STUDY: CT BRAIN WITHOUT CONTRAST REASON FOR EXAM: Male, 58 years old. Headache. The patient is on 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s. RADIATION DOSAGE (If Supplied By Facility): CTDIvol = ( 44.99 ) mGy, DLP = ( 829.85 ) mGycm TECHNIQUE: Transaxial CT imaging of the brain was performed without administration of intravenous contrast material. Individualized dose optimization techniques were used for this CT. COMPARISON: None. FINDINGS: Normal soft tissue structures. Multiple small lucencies are seen in the left parietal bone. Correlation with a bone scan is recommended for further evaluation. There is mild cerebral atrophy with widening of the extra-axial spaces and ventricular dilatation. Normal white matter tracts of the cerebral hemispheres. Normal basal ganglia and thalami. Normal brainstem. Normal cerebellum. There is no intracranial hemorrhage. There are no findings of an acute ischemic infarction. Mild degree of mucosal thickening of the ethmoid sinuses bilaterally. CT/Brain/Head without Contrast IMPRESSION: Chronic involutional changes of the brain. Multiple small lucencies involving the left parietal bone as described. Correlation with nuclear bone scan is recommended. Electronically Signed: Al Beasley MD at 10:46 EDT Tel [phone], Service support ,
--- NOTE | 2018-06-10 10:14 | ED.DCSUM_ITS ---
- ER Visit Summary Date of Service: 06/10/18 Chief Complaint: Chest pain, shortness of breath and headache. History of Present Illness: The patient is a 58 M recently hospitalized and discharged yesterday diagnosed with a PE and also new onset A. fib. He has had a prior DVT in the past. They just recently started him on the blood thinner Eliquis. Patient states he felt fine this morning he had upper chest discomfort which he says was mild then he developed more severe shortness of breath and felt like he might pass out. He also has developed a mild posterior headache with some neck discomfort. He denies any fall or head trauma. States he feels much better. Physical Examination: Male. Vital signs are stable. He is in no distress. Pulse ox is 96% on room air no signs of hypoxia. HEENT exam unremarkable atraumatic. Pupils round reactive light. Neck nontender. No meningismus. Lungs clear to auscultation bilaterally. Heart regular rate and rhythm rate about 90 no murmur. Chest wall nontender. Abdomen soft nontender normal bowel sounds no peritoneal signs. Moving all 4 extremities. Neurovascular intact. 5 out of 5 parking meter servicer strength equal symmetrical. Dorsi plantar flexion intact. Back normal. Neurologically is awake and alert with no focal motor or sensory deficits. NIH is 0. Test Results: CBC shows a white count 8. Hemoglobin of 15. Chemistries show some dehydration with a BUN of 33 and a creatinine of 1.5. Gap is normal at 8. Troponin is normal. EKG is a sinus rhythm rate of 89 with a few PACs. No signs of dysrhythmia nor ischemia. Chest x-ray shows no acute process chronic cardiomegaly. Read both by myself the radiologist. CT of the brain shows no acute intracranial bleed. There was right parietal bone lucency that will need further evaluation. Emergency Department Course and Treatment: Patient with chest pain with a known PE on blood thinner with a headache. He will undergo a cardiac workup with a CT of his brain. Repeat exam patient is doing well at 1457. He has been up ambulating to the bathroom. States he feels much better after IV fluids. Clinically is doing well and is comfortable being discharged home. Treatment Plan: Discharged to follow-up with his primary care physician. Continue on his current medications. Disposition: Discharge Impression: Acute chest pain with dyspnea with a known pulmonary emboli Acute cephalgia on anticoagulation Acute dehydration This note was generated with [employer] dictation software. It may contain incorrect words, spelling, and punctuation that were not noted in review of the chart prior to signing ED Disposition - Plan for ED Patient: Chief Complaint: Chest Pain Referrals: Hao Kumari MD [Primary Care Provider] -
[2018-06-10 10:21] LABS: Anion Gap 8 (5-15); BUN 33 mg/dL (7-18); BUN/Creat Ratio 21.4 RATIO (10-20); Calcium,Total 9.3 mg/dL (8.5-10.1); Chloride 101 mmol/L (98-107); Creatinine, Serum 1.54 mg/dL (0.70-1.30); EST Glomerular Filtration Rate 49 mL/min (>60); Est Glom Filt Rate - Afr Amer 60 mL/min (>60); Estimated Creatinine Clearance 54.33 ml/min; Glucose 101 mg/dL (74-106); Potassium 4.2 mmol/L (3.5-5.1); Sodium Level 137 mmol/L (136-145)
[2018-06-10] MEDS: 0.9% Normal Saline 1,000 ML 999 ML IV (14:19)
--- NOTE | 2018-06-10 14:58 | ED.RN ---
pt ambulated after bolus. He denies dizziness, lightheadedness, or discomfort. Dr guzman aware.
--- NOTE | 2018-06-10 14:58 | ED.DEP ---
ED Disposition - Plan for ED Patient: Disposition: Home or Assisted Living Chief Complaint: Chest Pain Instructions: ED Chest Pain Atypical Unkn Cause Referrals: Hao Kumari MD [Primary Care Provider] - 3-5 Days if not improving Additional Instructions: Continue your current medications especially your blood thinner Eliquis. Plenty of fluids and rest.
== END 2018-06-10 15:14 | disposition home or self-care (01) ==
PROVIDERS: Emergency Provider Emergency Medicine; Family Provider Family Medicine; PCP Family Medicine
DX: I26.99 Other pulmonary embolism without acute cor pulmonale (principal); E86.0 Dehydration; R51 Headache; I48.91 Unspecified atrial fibrillation; I10 Essential (primary) hypertension; E78.00 Pure hypercholesterolemia, unspecified; Z86.718 Personal history of other venous thrombosis and embolism; Z79.01 Long term (current) use 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s; Z79.899 Other long term (current) drug therapy
CPT/HCPCS: 70450; 71045; 80048; 84484; 85025; 93005; 96360; 99285; J7030

== ENCOUNTER → 2018-06-16 08:53 | Outpatient (CLI) | payer OTHER, SELFPAY ==
[2018-06-16 10:18] LABS: AST(SGOT) 22 U/L (15-37); Alanine Aminotransfer ALT/SGPT 55 U/L (16-61); Albumin, Serum 3.6 g/dL (3.2-5.0); Alkaline Phosphatase 38 U/L (45-117); Bilirubin, Direct 0.18 mg/dL (0.00-0.30); Cholesterol 198 mg/dL (200); Globulin 3.6 g/dL (2.2-4.2); High Density Lipoprotein 39 mg/dL; Protein, Total 7.2 g/dL (6.4-8.2); Triglycerides 175 mg/dL; Very Low Density Lipoprotein 35 mg/dL (5-40)
== END ==
PROVIDERS: Family Provider Family Medicine; PCP Family Medicine; Referring Provider Internal Medicine Cardiovascular Disease; Visit Provider Internal Medicine Cardiovascular Disease
DX: E78.5 Hyperlipidemia, unspecified (principal)
CPT/HCPCS: 36415; 80061; 80076

== ENCOUNTER → 2018-06-30 11:48 | Outpatient (CLI) | payer OTHER, SELFPAY | PROVIDERS: Family Provider Family Medicine; PCP Family Medicine; Referring Provider Nurse Practitioner Family; Visit Provider Nurse Practitioner Family | DX: R07.9 Chest pain, unspecified (principal) | CPT/HCPCS: 36415; 84484 ==

== ENCOUNTER → 2018-07-01 19:45 | Outpatient (CLI) | payer OTHER, SELFPAY | PROVIDERS: Family Provider Family Medicine; PCP Family Medicine; Visit Provider Internal Medicine Cardiovascular Disease | DX: R06.83 Snoring (principal); R06.81 Apnea, not elsewhere classified; I48.91 Unspecified atrial fibrillation; I10 Essential (primary) hypertension | CPT/HCPCS: 95810 ==

== ENCOUNTER 2018-07-02 15:15 | Inpatient (IN) | payer OTHER, SELFPAY ==
[2018-07-02] VITALS (12 sets, daily range): BP systolic 88–117; BP diastolic 48–63; PULSE 72–119; RESP 12–21; TEMP 36.4–37.2; O2SAT 93–96; BMI 40.1; BMI 40.2; BMI 41.4
--- NOTE | 2018-07-02 15:48 | EKG12_ITS ---
Test Reason : Blood Pressure : / mmHG Vent. Rate : 110 BPM Atrial Rate : 110 BPM P-R Int : 142 ms QRS Dur : 082 ms QT Int : 340 ms P-R-T Axes : 049 023 035 degrees QTc Int : 460 ms Sinus tachycardia Otherwise normal ECG Confirmed by VIKTORIYA SHEA, VALENTINA ([id number]), editorial clerk PATRICIA ROMERO ([id number]) on 07/05/2018 12:22:43 PM Referred By: DAMON Confirmed By:VALENTINA SADLER MD
--- NOTE | 2018-07-02 15:50 | RAD_ITS ---
STUDY: X-RAY CHEST REASON FOR EXAM: Male, 58 years old. Chest pain TECHNIQUE: Single AP portable view of the chest. # of Images: 1 COMPARISON: None. FINDINGS: The lungs are clear and expanded. There is no demonstrated pleural abnormality. Normal size heart. Normal mediastinum and rubina. Normal visualized pulmonary arteries. Normal visualized aortic arch and descending thoracic aorta. Normal visualized thoracic spine. Normal visualized ribs, clavicles, and shoulders. There is no demonstrated abnormality of the visualized soft tissue structures of the upper abdomen. RAD/Chest 1 View (Portable) IMPRESSION: Normal x-ray examination of the chest. Electronically Signed: Radha Abernathy MD at 16:23 EDT Tel , Service support ,
--- NOTE | 2018-07-02 15:52 | ED.DCSUM_ITS ---
- ER Visit Summary Date of Service: 07/02/18 Chief Complaint: Chest pain History of Present Illness: The patient is a 58 M presenting with chest pain which started earlier this afternoon. Patient states his medications were recently changed by his gift shop clerk Dr. Jones. He was started on a beta-antolin. He states today he has not felt well all day. He started having midsternal chest achiness this afternoon. He states this feels different from when he had a PE in May. He is on Eliquis. He has a history of A. fib. He is not a smoker. He has shortness of breath which is worse with exertion. He has a nonproductive cough. He also complains of shaking chills earlier today as well as urinary frequency. Physical Examination: Vitals are stable. Patient is afebrile. Alert no acute distress. HEENT exam is unremarkable. Neck is supple. Lungs are clear and equal bilaterally. Heart is regular and tachycardic Abdomen is soft nontender nondistended. Extremities are unremarkable. Skin is warm and dry. No focal neurologic deficit. Remainder of exam is unremarkable. Emergency Department Course and Treatment: EKG is sinus tachycardia rate of 110. Patient was given aspirin. CBC shows hemoglobin 11.0. Chemistries show gl ucose 127, BUN 26, creatinine 1.67. Urinalysis shows 10-25 white blood cells, positive leukocytes. Troponin is negative. Repeat blood pressure is 88/50. He was given IV fluids and Rocephin. Blood and urine cultures were sent prior to antibiotics. Blood pressure after fluids was 103/63. Lactic acid is 2.3. Discussed with the hospitalist for admission. Disposition: Admission Impression: Sepsis, UTI, chest pain This note was generated with [employer] dictation software. It may contain incorrect words, spelling, and punctuation that were not noted in review of the chart prior to signing ED Disposition - Plan for ED Patient: Chief Complaint: Weakness Referrals: Hao Kumari MD [Primary Care Provider] -
[2018-07-02] MEDS: Aspirin 325 MG Tablet PO (16:02)
[2018-07-02 16:08] LABS: Absolute Neutrophil Count 9.4 X10^3/uL (2.0-7.7); Basophil# 0.01 X10^3/uL; Basophil% 0.1 % (0-1); Eosinophil# 0.02 X10^3/uL; Eosinophils% 0.2 % (0-5); Hematocrit 34.3 % (40-54); Hemoglobin 11.5 g/dl (13.0-16.5); Lymphocyte % 4.9 % (19-41); Mean Corp Hgb Conc 33.5 g/gl (32-36); Mean Corpuscular Volume 95.5 fL (80-94); Mean Platelet Vol. 9.4 fl (6.2-12.0); Monocyte# 0.29 X10^3/uL; Monocyte% 2.8 % (0-10); Neutrophil # 9.42 X10^3/uL (2.7-7.7); Neutrophil % 91.8 % (47-70); Platelet Count 218 K/mm3 (150-450); RBC Distribution Width CV 12.9 % (11.6-14.6); RBC Distribution Width SD 44.8 fl (35.1-43.9); Red Blood Count 3.59 M/mm3 (4.6-6.2); White Blood Count 10.3 K/mm3 (4.4-11.0)
[2018-07-02 16:13] LABS: Differential Indicated SCAN CRITERIA MET; POSITIVE COUNT NO; POSITIVE DIFFERENTIAL YES; POSITIVE MORPHOLOGY NO
[2018-07-02 16:14] LABS: Mucous, Urine 0 SEEN /hpf (<or=2+); Red Blood Cells-Urine 0 SEEN /hpf (0-5); Squamous Epithelial Cells - UA 0 SEEN /hpf (0-5)
[2018-07-02 16:17] LABS: Color, Urine Yellow (Yellow); Glucose, Dipstick Normal (Normal); Ketone-Dipstick Negative (Negative); Leukocyte Esterase-Dipstick 500 /ul (Negative); Nitrite-Dipstick Negative (Negative); Occult Blood-Urine 10 /ul (Negative); Protein-Dipstick Negative (Negative); Urine Bilirubin Dipstick Negative (Negative); Urine Clarity Sl. Cloudy (Clear); Urine Urobilinogen Normal (Normal)
[2018-07-02 16:25] LABS: Anion Gap 8 (5-15); BUN 26 mg/dL (7-18); BUN/Creat Ratio 15.6 RATIO (10-20); Calcium,Total 8.7 mg/dL (8.5-10.1); Chloride 104 mmol/L (98-107); Creatinine, Serum 1.67 mg/dL (0.70-1.30); EST Glomerular Filtration Rate 45 mL/min (>60); Est Glom Filt Rate - Afr Amer 54 mL/min (>60); Glucose 127 mg/dL (74-106); Potassium 3.7 mmol/L (3.5-5.1); Sodium Level 136 mmol/L (136-145)
[2018-07-02 16:26] LABS: Bacteria RARE /hpf (None Seen); White Blood Cells 10-25 SEEN /hpf (0-5)
[2018-07-02 16:34] LABS: Platelet Estimate ADEQUATE (ADEQ)
[2018-07-02 16:35] LABS: Anisocytosis RARE; Macrocytosis RARE
[2018-07-02] MEDS: 0.9% Normal Saline 1,000 ML 999 ML IV ×2 (16:35)
[2018-07-02] MEDS: Ceftriaxone 1 GM/50 ML BAG IV (17:08)
[2018-07-02 17:50] LABS: Lactic Acid 2.3 mmol/L (0.4-2.0)
--- NOTE | 2018-07-02 17:51 | ED.RN ---
LACTIC ACID 2.3, DR. DAMON VALENCIA.
--- NOTE | 2018-07-02 18:09 | PCM.HP.STD ---
Problem List (1) Pulmonary embolism Status: Chronic Qualifiers: (2) Afib Status: Chronic (3) CORRINA (obstructive sleep apnea) Status: Chronic (4) Benign essential hypertension Status: Chronic (5) Gastroesophageal reflux disease Status: Chronic (6) Hyperlipidemia Status: Chronic History of Present Illness Date of Admission: 07/02/18 Chief Complaint: Shaking chills, questionable chest pain. The patient is a 58 year old M with past medical history as mentioned above presented to the emergency room mainly because of shaking chills. Patient states that he had sleep study last night and he started having frequency and dysuria last night and today, he started having shaking chills, took some Tylenol at home, felt better but again he started having shaking chills badly. He mentioned that he was dizzy and lightheaded but he did not pass out. Today afternoon, he started having vague midsternal chest pain, described as ache, intermittent, not radiating, associated with mild shortness of breath but nothing unusual in terms of worsening shortness of breath and without aggravating or relieving factors., His main complaint was shaking chills, dizziness and lightheadedness. On May,, patient was admitted for shortness of breath and he was found to have acute pulmonary embolism as well as new onset A. fib with RVR. He has been on Eliquis for PE and A. fib since May,. 2 days ago, he had follow-up with his computer systems software architect and he was seen by the nurse practitioner and he complained of palpitation as well as lightheadedness and dizziness. He was started on Cardizem for rate control and he was continued on benazepril and Hyzaar for hypertension. He has history of hyperlipidemia and he has been on statins. He had a history of hypertension, his medication adjusted 2 years ago and he was started on Cardizem. In the emergency apartment, patient was tachycardic, hypotensive, other vital signs were stable. His routine blood work was remarkable for hemoglobin of 11.5 g/dL, creatinine of 1.67, BUN of 26. Lactic acid was 2.3. Troponin is negative. EKG revealed sinus tachycardia, no acute ischemic changes. Chest x-ray showed no acute findings. He is being admitted for hypotension probably due to medication side effects, complicated by mild acute kidney injury and also found to have probable acute cystitis and mild lactic acidosis. Past Medical History Past Medical History (Chronic Problems): Chronic Problems (Last Updated 07/02/18 @ 18:09 by Zayda Snyder MD) Anxiety (Chronic) Back pain (Chronic) BMI greater than 40 (Chronic) Arthritis (Chronic) Pulmonary embolism (Chronic 06/10/18) Afib (Chronic) CORRINA (obstructive sleep apnea) (Chronic) Benign essential hypertension (Chronic) Gastroesophageal reflux disease (Chronic) Hyperlipidemia (Chronic) Medical History: Medical History (Last Updated 07/02/18 @ 18:09 by Zayda Snyder MD) Arthritis (Chronic) M19.90 Pulmonary embolism (Chronic) Onset Date: 06/10/18 I26.99 Afib (Chronic) I48.91 CORRINA (obstructive sleep apnea) (Chronic) G47.33 Benign essential hypertension (Chronic) I10 Gastroesophageal reflux disease (Chronic) K21.9 Hyperlipidemia (Chronic) E78.5 Asthma J45.909 Allergies simvastatin Adverse Reaction (Severe, Verified 07/02/18 15:15) Myalgias doxycycline Adverse Reaction (Intermediate, Verified 07/02/18 15:15) GI upset Home Medications: Ambulatory Orders Medication Instructions Recorded Atorvastatin Calcium [Lipitor] 10 mg PO DAILY 06/08/18 Omeprazole 20 mg PO BID 06/08/18 Triamterene 37.5MG/Hctz 25MG 1 cap PO DAILY 06/08/18 [Dyazide (G)] Apixaban [Eliquis] 5 mg PO BID #90 tab 06/09/18 benazepril 40 mg tablet 20 mg PO DAILY tab 06/30/18 diltiazem ER 120 mg 120 mg PO DAILY #30 tab 06/30/18 tablet,extended release 24 hr Acetaminophen [Tylenol Extra 1,000 mg PO PRN PRN 07/02/18 Strength] Cholecalciferol (Vitamin D3) 2,000 unit PO DAILY 07/02/18 [Vitamin D3] Surgical History: Surgical History (Last Updated 07/02/18 @ 17:48 by Zayda Snyder MD) History of hip surgery Z98.890 Surgical History: appendectomy, herniorrhaphy Psychiatric History: No pertinent psych hx Lives: Spouse/ Significant Other Smoking Status: Never smoker Alcohol: None Drugs: None - *Family History Maternal Family History: Family History (Last Reviewed 06/15/18 @ 14:51 by Jennifer Coulter) Mother CAD (coronary artery disease) Diabetes Hypertension Hyperlipidemia Father CVA (cerebral vascular accident) History Items: Diabetes, Heart Disease, Hypertension, - Paternal Family History: Family History (Last Reviewed 06/15/18 @ 14:51 by Jennifer Coulter) Mother CAD (coronary artery disease) Diabetes Hypertension Hyperlipidemia Father CVA (cerebral vascular accident) History Items: - - Brain aneurysm. Review of Systems Constitutional: Reports: Fever, Weakness, Fatigue. Denies: Anorexia, Chills Eyes: Denies: Blurred vision, Double vision, Drainage, Redness HEENT: Denies: Difficulty Hearing, Ear Pain, Eye Pain, Nasal Congestion, Sore Throat Cardiovascular: Reports: Chest Pain, Light Headedness. Denies: Chest Tightness, Edema, Heaviness, Palpitations, Syncope Respiratory: Denies: Cough, Hemoptysis, Pleuritic Pain, Sputum production, Wheezing Gastrointestinal: Denies: Abdominal Pain, Constipation, Diarrhea, Nausea, Vomiting Genitourinary: Denies: Dysuria, Frequency, Hematuria Musculoskeletal: Denies: Arm Pain, Back Pain, Foot Pain Skin: Denies: Dryness, Rash Neurological: Denies: Balance problems, Double vision, Change in Speech, Slurred speech, Focal weakness, Incoordination, Numbness Psychiatric: Denies: Anxiety, Depression Endocrine: Denies: Change in Body Habitus, Polydipsia VTE Information - Inpt Only VTE Present on Admission: No VTE Mechan Device Prophylaxis: None VTE Pharm Prophylaxis ordered?: No - Physical Exam General: Alert, Oriented x3, Cooperative, No apparent distress HEENT: Atraumatic, PERRLA, EOMI, Normocephalic Oral: Moist Mucosa, No Gingival or Mucosal Lesions/ Ulcerations Neck: Supple, No JVD, Negative Carotid Bruits, Trachea Midline, Thyroid Normal Size and Texture Lungs: Clear to auscultation, No rhonchi, No wheeze, No rales, Diminished Cardiovascular: Normal S1, Normal S2, No murmurs, PMI Normal, Irregular Rate, Tachycardic Abdomen: Bowel Sounds Present, Soft, Non Tender, Non-Distended, No Hepato-splenomegaly, Obese Extremities: No clubbing, No cyanosis, No edema Skin: No rashes, No breakdown Lymphatic: No Cervical, Supraclavicular, or Inguinal Adenopathy Neurological: Cranial nerves II-XII grossly intact, Motor Exam 5/5 strength throughout Psych/Mental Status: Normal Affect, Appropriate, Alert and oriented to time, place, person, mood and affect Vital Signs Temp Pulse Resp BP Pulse Ox 98.9 F 89 17 101/58 L 94 07/02/18 17:08 07/02/18 18:04 07/02/18 18:04 07/02/18 18:04 07/02/18 18:04 Oxygen Delivery Method Room Air Weight: 288 lb Body Mass Index (BMI) 40.1 Laboratory Tests Past 24 Hrs 07/02/18 07/02/18 07/02/18 15:40 15:40 15:40 WBC 10.3 RBC 3.59 L Hgb 11.5 L Hct 34.3 L MCV 95.5 H MCH 32.0 MCHC 33.5 RDW 12.9 RDW Differential 44.8 H Plt Count 218 MPV 9.4 Immature Gran % (Auto) 0.200 Neut % (Auto) 91.8 H Lymph % (Auto) 4.9 L [place] % (Auto) 2.8 Eos % (Auto) 0.2 Baso % (Auto) 0.1 Absolute Neuts (auto) 9.4 H Absolute Lymphs (auto) 0.50 L Total Counted Not Reportable Differential Comment SEE COMMENT Platelet Estimate ADEQUATE Anisocytosis RARE Macrocytosis RARE Sodium 136 Potassium 3.7 Chloride 104 Carbon Dioxide 24.0 Anion Gap 8 BUN 26 H Creatinine 1.67 H Estim Creat Clear Calc 50.10 Est GFR (MDRD) Af Amer 54 L Est GFR (MDRD) Non-Af 45 L BUN/Creatinine Ratio 15.6 Glucose 127 H Lactic Acid 2.3 H Calcium 8.7 Troponin I < 0.015 Urine Color Urine Clarity Urine pH Ur Specific [place] Urine Protein Urine Glucose (UA) Urine Ketones Urine Occult Blood Urine Nitrite Urine Bilirubin Urine Urobilinogen Ur Leukocyte Esterase Urine RBC Urine WBC Ur Squamous Epith Cells Urine Bacteria Urine Mucus 07/02/18 15:50 WBC RBC Hgb Hct MCV MCH MCHC RDW RDW Differential Plt Count MPV Immature Gran % (Auto) Neut % (Auto) Lymph % (Auto) [place] % (Auto) Eos % (Auto) Baso % (Auto) Absolute Neuts (auto) Absolute Lymphs (auto) Total Counted Differential Comment Platelet Estimate Anisocytosis Macrocytosis Sodium Potassium Chloride Carbon Dioxide Anion Gap BUN Creatinine Estim Creat Clear Calc Est GFR (MDRD) Af Amer Est GFR (MDRD) Non-Af BUN/Creatinine Ratio Glucose Lactic Acid Calcium Troponin I Urine Color Yellow Urine Clarity Sl. Cloudy Urine pH 6.0 Ur Specific [place] 1.010 Urine Protein Negative Urine Glucose (UA) Normal Urine Ketones Negative Urine Occult Blood 10 H Urine Nitrite Negative Urine Bilirubin Negative Urine Urobilinogen Normal Ur Leukocyte Esterase 500 H Urine RBC 0 SEEN Urine WBC 10-25 SEEN Ur Squamous Epith Cells 0 SEEN Urine Bacteria RARE Urine Mucus 0 SEEN Clinical Impression(s) from Imaging Studies Chest X-Ray 07/02/18 15:50 IMPRESSION: Normal x-ray examination of the chest. Electronically Signed: Radha Abernathy MD at 16:23 EDT Tel , Service support , Assessment/Plan This is a 58 years old male patient presented to the ED because of shaking chills, lightheadedness and chest pain and was found to have hypotension probably due to multiple antihypertensive medications as well as addition of Cardizem 2 days ago, also found to have acute kidney injury, mild lactic acidosis and probable acute cystitis. #1 symptomatic hypotension: This is probably due to his antihypertensive medications including benazepril and Hyzaar and he was started on Cardizem 2 days ago. At this time, I doubt this is due to sepsis or infection. He could have mild acute cystitis but I doubt this hypotension is due to infection. Blood pressure improved with IV fluids. EKG revealed sinus tachycardia, otherwise normal. Patient complains of vague chest discomfort but he seemed less concerned about. Plan: Admit to PCU, cardiac monitoring, serial cardiac enzymes, repeat EKG tomorrow morning, IV fluids for hydration, repeat BMP and CBC tomorrow morning, hold benazepril and Hyzaar for now, close monitoring of blood pressure, repeat orthostatic vitals tomorrow morning. #2 acute kidney injury: This is secondary to above in addition to side effects of benazepril and Hyzaar. Baseline kidney function is normal. Admission creatinine is 1.67. Plan: IV fluids as above, input output chart, hold benazepril and Hyzaar, repeat BMP tomorrow morning. #3 mild lactic acidosis: Again, this is probably due to hypoperfusion secondary to hypotension. I doubt this is due to acute cystitis. Lactic acid is 2.3. Plan as above, IV fluids, repeat lactic acid and 3 hours. #4 probable acute cystitis: Urine culture and blood culture sent, plan to start empiric IV Rocephin, repeat lactic acid 3 hours. #5 hypertension: At this time, patient is hypotensive but improved with IV fluids. Plan to hold benazepril and Hyzaar, continue Cardizem for rate control for A. fib. #6 recent history of pulmonary embolism: Continue Eliquis. #7 recent atrial fibrillation: Heart rate has been around 90-100, blood pressure improved with IV fluids. Plan to continue Cardizem for rate control, continue Xarelto for anti-fibrillation. #8 hyperlipidemia: Continue statins. #9 DVT prophylaxis: Continue Eliquis. This note was generated with [employer] dictation software. It may contain incorrect words, spelling, and punctuation that were not noted in checking the note before signing. Code Visit Inpatient E&M: 76229 Init Hosp L3
[2018-07-02 20:18] LABS: International Normalized Ratio 1.4; Prothrombin Time (Protime)PT. 17.3 SECONDS (11.7-14.9)
[2018-07-02 21:19] LABS: Reflex Lactate? Y
[2018-07-02] MEDS: 0.9% Normal Saline 1,000 ML 150 ML IV (21:41)
[2018-07-02] MEDS: 0.9% NaCl Peripheral Flush Adult/Peds IV (21:41)
[2018-07-02] MEDS: Atorvastatin Calcium 10 MG Tablet PO (21:42)
[2018-07-02] MEDS: Pantoprazole Sodium 20 MG Tablet PO (21:42)
[2018-07-02] MEDS: APIXABAN 5 MG TABLET PO (21:43)
[2018-07-03] VITALS (15 sets, daily range): BP systolic 110–119; BP diastolic 55–69; PULSE 78–99; RESP 16–18; TEMP 36.7–37.3; O2SAT 95–99
[2018-07-03] MEDS: 0.9% Normal Saline 1,000 ML 150 ML IV ×3 (04:59→18:24)
--- NOTE | 2018-07-03 05:55 | EKG12_ITS ---
Test Reason : AM EKG Blood Pressure : / mmHG Vent. Rate : 084 BPM Atrial Rate : 084 BPM P-R Int : 158 ms QRS Dur : 084 ms QT Int : 366 ms P-R-T Axes : 009 011 011 degrees QTc Int : 432 ms Normal sinus rhythm Normal ECG Confirmed by VIKTORIYA SHEA, VALENTINA ([id number]), editor map SIDDHARTH GUSTAFSON ([id number]) on 07/07/2018 1:50:49 PM Referred By: TASHA Confirmed By:VALENTINA SADLER MD
[2018-07-03 07:04] LABS: Absolute Lymphocyte Count 1.21 X10^3/ul (0.83-4.51); Absolute Neutrophil Count 7.9 X10^3/uL (2.0-7.7); Basophil# 0.02 X10^3/uL; Basophil% 0.2 % (0-1); Eosinophil# 0.09 X10^3/uL; Eosinophils% 0.9 % (0-5); Hemoglobin 10.6 g/dl (13.0-16.5); Lymphocyte # 1.21 X10^3/ul (4.0); Lymphocyte % 11.7 % (19-41); Mean Corp Hgb Conc 33.1 g/gl (32-36); Mean Corpuscular Hgb 33.2 pg (27.0-32.0); Mean Corpuscular Volume 100.3 fL (80-94); Mean Platelet Vol. 10.4 fl (6.2-12.0); Monocyte# 1.08 X10^3/uL; Monocyte% 10.5 % (0-10); Neutrophil # 7.87 X10^3/uL (2.7-7.7); Neutrophil % 76.4 % (47-70); POSITIVE COUNT NO; POSITIVE DIFFERENTIAL NO; POSITIVE MORPHOLOGY NO; Platelet Count 204 K/mm3 (150-450); RBC Distribution Width SD 46.1 fl (35.1-43.9); Red Blood Count 3.19 M/mm3 (4.6-6.2); White Blood Count 10.3 K/mm3 (4.4-11.0)
[2018-07-03 07:26] LABS: Anion Gap 10 (5-15); BUN 26 mg/dL (7-18); BUN/Creat Ratio 18.4 RATIO (10-20); Calcium,Total 8.3 mg/dL (8.5-10.1); Chloride 109 mmol/L (98-107); Creatinine, Serum 1.41 mg/dL (0.70-1.30); EST Glomerular Filtration Rate 55 mL/min (>60); Est Glom Filt Rate - Afr Amer 66 mL/min (>60); Estimated Creatinine Clearance 57.53 ml/min; Glucose 101 mg/dL (74-106); Sodium Level 141 mmol/L (136-145)
[2018-07-03] MEDS: Pantoprazole Sodium 20 MG Tablet PO ×2 (10:26→21:23)
[2018-07-03] MEDS: APIXABAN 5 MG TABLET PO ×2 (10:26→21:23)
[2018-07-03] MEDS: dilTIAZem CD 120 MG Capsule PO (10:28)
--- NOTE | 2018-07-03 12:29 | PCM.PN.HOSP ---
Subjective: Patient was admitted yesterday with shaking and chills denied fever. He also had increased frequency, burning micturition but denies urgency. Overall, his assessment was consistent with UTI. Urine culture growing E. coli more than 100,000. Patient had mild/questionable chest pressure, localized without associated shortness of breath or palpitation. Not concerning for unstable angina. Patient has seen screw machine set up operator tool about 2 days ago. Serial troponin enzymes are negative. Vitals/I&O's: Vital Signs Temp Pulse Resp BP Pulse Ox 98.1 F 82 16 110/63 99 07/03/18 10:00 07/03/18 10:00 07/03/18 10:00 07/03/18 10:00 07/03/18 10:00 Oxygen Delivery Method Room Air Weight: 296 lb 4.82 oz Body Mass Index (BMI) 41.4 Orthostatic Vital Signs Start: 07/03/18 06:33 Freq: 0500 Status: Active Protocol: Activity Type Activity Date Activity User E-Sign Co-Sign Detail Recorded Client Recorded Date Recorded By Document 07/03/18 06:00 [facility] [id number] 07/03/18 06:34 [facility] 07/03/18 06:00 Orthostatic Vitals Standing -Blood Pressure (90/60-120/80) 113/64 -Extremity Use Left Arm -Pulse Rate (60-100) 99 Sitting -Blood Pressure (90/60-120/80) 115/69 -Extremity Use Left Arm -Pulse Rate (60-100) 95 Lying -Blood Pressure (90/60-120/80) 110/55 L -Extremity Use Left Arm -Pulse Rate (60-100) 83 Intake and Output for Last 24 Hours 07/01/18 07/02/18 07/03/18 23:59 23:59 23:59 Intake Total 355 / 355 959 / 959 Balance 355 / 355 959 / 959 General: Alert, Oriented x3, Cooperative HEENT: Atraumatic, PERRLA, EOMI, Normocephalic Neck: Supple, No JVD, Negative Carotid Bruits Lungs: Clear to auscultation, No rhonchi, No wheeze, No rales, Diminished Cardiovascular: Regular rate, Regular Rhythm, Normal S1, Normal S2, No murmurs Abdomen: Bowel Sounds Present, Soft, Non Tender, Non-Distended Extremities: No edema, Capillary Refill Less than 3 Seconds Skin: No rashes, No breakdown Musculoskeletal: No Tenderness to Palpation of Joints or Extremities, Arthritic Changes Lymphatic: No Cervical, Supraclavicular, or Inguinal Adenopathy Neurological: Cranial nerves II-XII grossly intact, Neuro grossly intact Psych/Mental Status: Normal Affect, Appropriate Microbiology Past 72 Hours 07/02/18 15:50 Urine, Clean Catch Urine Culture - Preliminary Presumptive E. coli Laboratory Results 07/02/18 15:40: WBC 10.3, RBC 3.59 L, Hgb 11.5 L, Hct 34.3 L, MCV 95.5 H, MCH 32.0, MCHC 33.5, RDW 12.9, RDW Differential 44.8 H, Plt Count 218, MPV 9.4, Immature Gran % (Auto) 0.200, Neut % (Auto) 91.8 H, Lymph % (Auto) 4.9 L, [place] % (Auto) 2.8, Eos % (Auto) 0.2, Baso % (Auto) 0.1, Absolute Neuts (auto) 9.4 H, Absolute Lymphs (auto) 0.50 L, Total Counted Not Reportable, Differential Comment SEE COMMENT, Platelet Estimate ADEQUATE, Anisocytosis RARE, Macrocytosis RARE 07/02/18 15:40: Sodium 136, Potassium 3.7, Chloride 104, Carbon Dioxide 24.0, Anion Gap 8, BUN 26 H, Creatinine 1.67 H, Estim Creat Clear Calc 50.10, Est GFR (MDRD) Af Amer 54 L, Est GFR (MDRD) Non-Af 45 L, BUN/Creatinine Ratio 15.6, Glucose 127 H, Calcium 8.7, Troponin I < 0.015 07/02/18 15:40: Lactic Acid 2.3 H 07/02/18 15:40: PT 17.3 H, INR 1.4 07/02/18 15:50: Urine Color Yellow, Urine Clarity Sl. Cloudy, Urine pH 6.0, Ur Specific [place] 1.010, Urine Protein Negative, Urine Glucose (UA) Normal, Urine Ketones Negative, Urine Occult Blood 10 H, Urine Nitrite Negative, Urine Bilirubin Negative, Urine Urobilinogen Normal, Ur Leukocyte Esterase 500 H, Urine RBC 0 SEEN, Urine WBC 10-25 SEEN, Ur Squamous Epith Cells 0 SEEN, Urine Bacteria RARE, Urine Mucus 0 SEEN 07/02/18 20:00: Troponin I < 0.015 07/02/18 21:42: Lactic Acid 1.0 07/02/18 22:50: Troponin I < 0.015 07/03/18 02:18: WBC 10.3, RBC 3.19 L, Hgb 10.6 L, Hct 32.0 L, MCV 100.3 H, MCH 33.2 H, MCHC 33.1, RDW 13.0, RDW Differential 46.1 H, Plt Count 204, MPV 10.4, Immature Gran % (Auto) 0.300, Neut % (Auto) 76.4 H, Lymph % (Auto) 11.7 L, [place] % (Auto) 10.5 H, Eos % (Auto) 0.9, Baso % (Auto) 0.2, Absolute Neuts (auto) 7.9 H, Absolute Lymphs (auto) 1.21, Total Counted Not Reportable 07/03/18 02:18: Sodium 141, Potassium 4.0, Chloride 109 H, Carbon Dioxide 22.0, Anion Gap 10, BUN 26 H, Creatinine 1.41 H, Estim Creat Clear Calc 57.53, Est GFR (MDRD) Af Amer 66, Est GFR (MDRD) Non-Af 55 L, BUN/Creatinine Ratio 18.4, Glucose 101, Calcium 8.3 L 07/03/18 02:18: Troponin I < 0.015 Current Medications Acetaminophen (Tylenol) 650 mg PO Q6H PRN PRN PRN Reason: Fever, headache, pain Apixaban (Eliquis) 5 mg PO BID [facility] Last Admin: 07/03/18 10:26 Dose: 5 mg Atorvastatin Calcium (Lipitor) 10 mg PO DAILY@2200 [facility] Last Admin: 07/02/18 21:42 Dose: 10 mg Diltiazem HCl (Cardizem Cd) 120 mg PO DAILY [facility] Last Admin: 07/03/18 10:28 Dose: 120 mg Sodium Chloride () 1,000 mls @ 150 mls/hr IV .Q6H40M [facility] Last Admin: 07/03/18 10:25 Dose: 150 mls/hr Ceftriaxone Sodium (Rocephin) 1 gm in 50 mls @ 100 mls/hr IV Q24 [facility] Magnesium Hydroxide (Milk Of Magnesia) 30 ml PO DAILY PRN PRN Reason: Constipation Ondansetron HCl (Zofran) 4 mg IV Q8H PRN PRN PRN Reason: NAUSEA/VOMITING Pantoprazole Sodium (Protonix) 20 mg PO BID [facility] Last Admin: 07/03/18 10:26 Dose: 20 mg Sodium Chloride () 5 - 30 ml IV UD PRN PRN Reason: SALINE FLUSH Last Admin: 07/02/18 21:41 Dose: 10 ml Medical Necessity - Tobacco Use Smoking Status: Never smoker Assessment/Plan This is a 58 years old male patient presented to the ED because of shaking chills, lightheadedness and questionable chest pressure and was found to have hypotension probably due to multiple antihypertensive medications as well as addition of Cardizem 2 days ago, also found to have acute kidney injury, mild lactic acidosis and probable acute cystitis. #1 symptomatic hypotension: This is probably due to his antihypertensive medications including benazepril and Hyzaar that was started on Cardizem 2 days ago by screw machine set up operator tool in the office and probably sepsis secondary to UTI. Resolved. Blood pressure is 117/58. Blood pressure improved with IV fluids. EKG revealed sinus tachycardia, otherwise normal. Patient complains of vague chest discomfort but he seemed less concerned about. Acute coronary syndrome ruled out with negative serial troponin enzymes. Patient did not had further chest discomfort or shortness of breath and comfortably sitting in the chair. #2 acute kidney injury, probably multifactorial ATN from UTI sepsis, and antihypertensive medications: This is secondary to above in addition to side effects of benazepril and Hyzaar. Baseline kidney function is normal. Admission creatinine is 1.67. BUN/creatinine ratio less than 20:1. Plan: IV fluids as above, input output chart, hold benazepril and Hyzaar. BUN is stable 26. Kidney function has improved with improvement in creatinine 1.41. Continue IV fluid. #3 mild lactic acidosis probably from UTI with sepsis (tachycardia, mild hypotension and lactic acidosis) or from hypoperfusion: Lactic acid is improved from 2.3 to normal. #4 source with sepsis (tachycardia, mild hypotension and lactic acidosis) secondary to UTI: Urine culture shows E. coli more than 100,000. Sensitivity report is pending. No previous urine culture report. Continue ceftriaxone. Blood culture x2 pending. Continue IV Rocephin #5 hypertension: Plan to hold benazepril and Hyzaar, continue Cardizem for rate control for A. fib. Patient blood pressure is normotensive. #6 recent history of pulmonary embolism: Continue Eliquis. #7 recent atrial fibrillation: Heart rate has been around 90-100, blood pressure improved with IV fluids. Plan to continue Cardizem for rate control, continue Xarelto for anti-fibrillation. #8 hyperlipidemia: Continue statins. #9 DVT prophylaxis: Continue Eliquis. Code Visit Inpatient E&M: 99210 [facility] Hosp L3
[2018-07-03] MEDS: Ceftriaxone 1 GM/50 ML BAG IV (12:53)
--- NOTE | 2018-07-03 14:38 | CM.UR ---
Met face to face with patient, introduced myself and explained my role. I mentioned that during last admission it was noted that they were going to be moving into a new home. State that is what he was supposed to be doing this weekend. I asked if he had his sleep study which was mentioned during last admission. States yes he had it done night --no results yet. He anticipates needing a cpap as he had one previously about 20 years ago. States he felt like he was suffocating so he just threw it away, back then. Encouraged him to talk to the [employer] company if he has trouble with thsi one. Explained there are multiple different masks that they can work with you and try to get something that works. Verb understanding. States they told him that too. Denies any needs. None anticipated at this time. Explained medical case manager will remain available should any needs arise. Verb understanding. Osmel Trevino RN, CCM.
[2018-07-03] MEDS: Acetaminophen 325 MG Tablet 650 MG PO (18:25)
[2018-07-03] MEDS: Atorvastatin Calcium 10 MG Tablet PO (21:23)
[2018-07-04] MEDS: 0.9% Normal Saline 1,000 ML 150 ML IV ×2 (01:14→07:05)
[2018-07-04 03:00] VITALS: PULSE 71
[2018-07-04 03:10] VITALS: BP 125/47; PULSE 82; RESP 18; TEMP 37.1; O2SAT 96
[2018-07-04 07:08] VITALS: PULSE 78
[2018-07-04 07:56] VITALS: O2SAT 96
[2018-07-04 09:10] VITALS: BP 117/68; PULSE 80; RESP 16; TEMP 36.7; O2SAT 99
[2018-07-04] MEDS: Ceftriaxone 1 GM/50 ML BAG IV (09:13)
[2018-07-04] MEDS: dilTIAZem CD 120 MG Capsule PO (09:13)
[2018-07-04] MEDS: APIXABAN 5 MG TABLET PO (09:13)
[2018-07-04] MEDS: Pantoprazole Sodium 20 MG Tablet PO (09:13)
--- NOTE | 2018-07-04 10:49 | DCINST_ITS ---
You will use the following diet at home:: Cardiac Your food should be the consistency of: Regular Discharge Activity: Return to Normal Activity Call your doctor if you observe: Fever of 101 or Higher, Inability to urinate, Shortness of breath, Dizziness, Fainting spells, Swelling in the ankles, Chest pain, Increased palpitations (irregular heartbeat) Allergies/Adverse Reactions: Allergies simvastatin Adverse Reaction (Severe, Verified 07/02/18 15:15) Myalgias doxycycline Adverse Reaction (Intermediate, Verified 07/02/18 15:15) GI upset Medications to take at Discharge Atorvastatin Calcium [Lipitor] 10 mg PO DAILY 06/08/18 Omeprazole 20 mg PO BID 06/08/18 Apixaban [Eliquis] 5 mg PO BID #90 tab 06/09/18 diltiazem ER 120 mg tablet,extended release 24 hr 120 mg PO DAILY #30 tab 06/30/18 Acetaminophen [Tylenol Extra Strength] 1,000 mg PO PRN PRN 07/02/18 Cholecalciferol (Vitamin D3) [Vitamin D3] 2,000 unit PO DAILY 07/02/18 Benazepril HCl 20 mg PO DAILY #0 tab 07/04/18 Cefadroxil [Duracef] 500 mg PO BID #10 capsule 07/04/18 Triamterene 37.5MG/Hctz 25MG [Dyazide (G)] 1 cap PO DAILY #0 07/04/18 The following prescriptions were given: Cefadroxil [Duracef] 500 mg PO BID #10 capsule Primary Care Physician: Hao Kumari MD [Primary Care Provider] - Please follow up with your Primary Care Physician in: in 1 week with BMP and assessment of BPH/UTI Test Results: Test results from this visit will be discussed in further detail at your follow- up appointment, if applicable. Please Follow Up With: Rick Jones MD When: IN 2-3 WEEKS FOR CAD
--- NOTE | 2018-07-04 10:50 | PCM.DC.SUM ---
Discharge Date and Diagnosis Date of Admission: 07/02/18 Date of Discharge: 07/04/18 - Secondary Discharge Diagnosis Chronic Problems (Last Updated 07/02/18 @ 18:09 by Zayda Snyder MD) Anxiety (Chronic) Back pain (Chronic) BMI greater than 40 (Chronic) Arthritis (Chronic) Pulmonary embolism (Chronic 06/10/18) Afib (Chronic) CORRINA (obstructive sleep apnea) (Chronic) Benign essential hypertension (Chronic) Gastroesophageal reflux disease (Chronic) Hyperlipidemia (Chronic) Hospital Course and Treatment Summary of Care Provided: [] This is a 58 years old male patient presented to the ED because of shaking chills, lightheadedness and questionable chest pressure and was found to have hypotension probably due to multiple antihypertensive medications as well as addition of Cardizem 2 days ago, also found to have acute kidney injury, mild lactic acidosis and probable acute cystitis. 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 Resolved. Blood pressure is 117/58. Blood pressure improved with IV fluids. EKG revealed sinus tachycardia, otherwise normal. Patient complains of vague chest discomfort but he seemed less concerned about. Acute coronary syndrome ruled out with negative serial troponin enzymes. Patient did not had further chest discomfort or shortness of breath and comfortably sitting in the chair. #2 acute kidney injury, probably multifactorial ATN from UTI sepsis, and antihypertensive medications: This is secondary to above in addition to side effects of benazepril and Hyzaar. Baseline kidney function is normal. Admission creatinine is 1.67. BUN/creatinine ratio less than 20:1. Plan: IV fluids as above, input output chart, hold benazepril and triamterene. BUN is stable 26. Kidney function has improved with improvement in creatinine 1.41. Continue IV fluid. The patient was advised to hold benazepril and triamterene and outpatient BMP on 07/03/2018 and check with PCP before resumption of benazepril and triamterene medications. #3 mild lactic acidosis probably from UTI with sepsis (tachycardia, mild hypotension and lactic acidosis) or from hypoperfusion: Lactic acid is improved from 2.3 to normal. #4 source with sepsis (tachycardia, mild hypotension and lactic acidosis) secondary to UTI: Urine culture shows E. coli more than 100,000. It is sensitive to ceftriaxone and cefazolin. Continue ceftriaxone. Blood culture x2 negative for about 48 hours. Patient was discharged on cefadroxil 500 mg twice daily for 5 more days to complete a total of 7 days. #5 hypertension: Plan to hold benazepril and Hyzaar, continue Cardizem for rate control for A. fib. Patient blood pressure is normotensive. #6 recent history of pulmonary embolism: Continue Eliquis. #7 recent atrial fibrillation: Heart rate has been around 90-100, blood pressure improved with IV fluids. Plan to continue Cardizem for rate control, continue Xarelto for anti-fibrillation. #8 hyperlipidemia: Continue statins. #9 DVT prophylaxis: Continue Eliquis. Discharge medication reconciliation done. Follow-up instructions completed. Discharge plan and follow-up instructions discussed with the patient's. Total time spent, exact 35 minutes on discharge meds reconciliation, examination, review of imaging and blood test and discussion with the patient on follow-up instructions. - Physical Exam Vital Signs Temp Pulse Resp BP Pulse Ox 98.0 F 80 16 117/68 99 07/04/18 09:10 07/04/18 09:10 07/04/18 09:10 07/04/18 09:10 07/04/18 09:10 Oxygen Delivery Method Room Air Weight: 296 lb 4.82 oz Body Mass Index (BMI) 41.4 Intake and Output for Last 24 Hours 07/02/18 07/03/18 07/04/18 23:59 23:59 23:59 Intake Total 355 / 355 4429 / 4429 868 / 868 Balance 355 / 355 4429 / 4429 868 / 868 Microbiology Past 72 Hours 07/02/18 15:50 Urine Culture - Final Urine, Clean Catch Presumptive E. coli Discharge Activity: Return to Normal Activity Call your doctor if you observe: Fever of 101 or Higher, Inability to urinate, Shortness of breath, Dizziness, Fainting spells, Swelling in the ankles, Chest pain, Increased palpitations (irregular heartbeat) Home Medications: Medications to take at Discharge Atorvastatin Calcium [Lipitor] 10 mg PO DAILY 06/08/18 Omeprazole 20 mg PO BID 06/08/18 Apixaban [Eliquis] 5 mg PO BID #90 tab 06/09/18 diltiazem ER 120 mg tablet,extended release 24 hr 120 mg PO DAILY #30 tab 06/30/18 Acetaminophen [Tylenol Extra Strength] 1,000 mg PO PRN PRN 07/02/18 Cholecalciferol (Vitamin D3) [Vitamin D3] 2,000 unit PO DAILY 07/02/18 Benazepril HCl 20 mg PO DAILY #0 tab 07/04/18 Cefadroxil [Duracef] 500 mg PO BID #10 capsule 07/04/18 Triamterene 37.5MG/Hctz 25MG [Dyazide (G)] 1 cap PO DAILY #0 07/04/18 Following Prescrptions Were Given to Patient: Cefadroxil [Duracef] 500 mg PO BID #10 capsule Other Amb Orders: Basic Metabolic Profile (BMP) Time Frame: 07/06/18, Location: Laboratory Primary Care Physician: Hao Kumari MD [Primary Care Provider] - Please follow up with your Primary Care Physician in: in 1 week with BMP and assessment of BPH/UTI Please Follow Up With: Rick Jones MD When: IN 2-3 WEEKS FOR CAD Medical Necessity - Tobacco Use Smoking Status: Never smoker Meaningful Use Info Meaningful Use Diagnoses (Choose all that apply): None applicable Code Visit Inpatient E&M: 32004 Disch Hosp
[2018-07-04 10:59] VITALS: PULSE 82
--- NOTE | 2018-07-05 14:17 | CASEMGMT ---
Discharge Follow-up phone call: STRATA: 10 LACE: 3 Discharge Date: . Adm Dx: Hypotension, SRINIVAS, Acute Cystitis, mild lactic acidosis. OLY KAN placed call to Mr Gunter to inquire how he has been feeling since being discharged from the hospital. Pt reported, I'm doing okay. He stated he still has a little bit of kidney pain but that is improving. Reports he has not made his aptt with Dr Kumari, but he plans on calling today yet to set that up and aware he is also to make an appt w/Dr Jones in 2-3 weeks. Mr Gunter states he was able to get his prescription filled and denies having any questions about the medication or discharge instructions. Provided Mr Gunter with CM phone number if he would have any questions or concerns. Thanked Mr Gunter for taking the time to talk w/OLY KAN and thanked him for choosing [facility]. Julian VINCENT RN, CM
== END 2018-07-04 11:20 | disposition home or self-care (01) | DRG 871 ==
LOC: ED 17:48 → PCU 18:48
PROVIDERS: Admitting Provider Hospitalist; Emergency Provider Emergency Medicine; Family Provider Family Medicine; PCP Family Medicine; Visit Provider Internal Medicine
DX: A41.51 Sepsis due to Escherichia coli [E. coli] (principal); N17.0 Acute kidney failure with tubular necrosis; E87.2 Acidosis; N30.00 Acute cystitis without hematuria; Z68.41 Body mass index [BMI] 40.0-44.9, adult; I48.91 Unspecified atrial fibrillation; E78.5 Hyperlipidemia, unspecified; I95.2 Hypotension due to drugs; T46.5X5A Adverse effect of other antihypertensive drugs, initial encounter; G47.33 Obstructive sleep apnea (adult) (pediatric); I10 Essential (primary) hypertension; K21.9 Gastro-esophageal reflux disease without esophagitis; F41.9 Anxiety disorder, unspecified; B96.20 Unspecified Escherichia coli [E. coli] as the cause of diseases classified elsewhere; Z86.711 Personal history of pulmonary embolism; Z79.01 Long term (current) use 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s; M19.90 Unspecified osteoarthritis, unspecified site; E66.9 Obesity, unspecified; R65.20 Severe sepsis without septic shock
CPT/HCPCS: 36415; 71045; 80048; 81001; 83605; 84484; 85025; 85610; 87040; 87086; 87088; 87186; 93005; 99285; J7030; J7040; A4216

== ENCOUNTER → 2018-07-06 09:20 | Outpatient (CLI) | payer OTHER, SELFPAY ==
[2018-07-06 12:15] LABS: Anion Gap 9 (5-15); BUN 19 mg/dL (7-18); BUN/Creat Ratio 16.8 RATIO (10-20); Calcium,Total 9.1 mg/dL (8.5-10.1); Chloride 104 mmol/L (98-107); Creatinine, Serum 1.13 mg/dL (0.70-1.30); EST Glomerular Filtration Rate 70 mL/min (>60); Est Glom Filt Rate - Afr Amer 85 mL/min (>60); Glucose 95 mg/dL (74-106); Potassium 3.8 mmol/L (3.5-5.1); Sodium Level 138 mmol/L (136-145)
== END ==
PROVIDERS: Family Provider Family Medicine; PCP Family Medicine; Referring Provider Internal Medicine; Visit Provider Internal Medicine
DX: N17.9 Acute kidney failure, unspecified (principal)
CPT/HCPCS: 36415; 80048

== ENCOUNTER → 2018-08-09 20:00 | Outpatient (CLI) | payer OTHER, SELFPAY | PROVIDERS: Family Provider Family Medicine; PCP Family Medicine; Visit Provider Internal Medicine Critical Care Medicine | DX: G47.33 Obstructive sleep apnea (adult) (pediatric) (principal); I48.91 Unspecified atrial fibrillation | CPT/HCPCS: 95811 ==

== ENCOUNTER → 2018-08-18 07:45 | Outpatient (CLI) | payer OTHER, SELFPAY ==
[2018-07-29 14:09] VITALS: BMI 41.7
--- NOTE | 2018-08-18 08:35 | STEWCON_ITS ---
Reason For Study: Chest Pain Stress Results Protocol: Jonathan Protocol Maximum Predicted HR: 160 bpm Target HR: 136 bpm % Maximum Predicted HR: 96 % DurationHeart Rate Stage (mm:ss) (bpm) BP Comment Baseline 95 132/66No Chest Pain; 2 ML Diluted Definity Given Jonathan Protocol Stage I 3:00 137 164/62No Chest Pain; Mild Dyspnea Jonathan Protocol Stage II 2:00 153 170/60No Chest Pain; Moderate Dyspnea Recovery 115 130/66No Chest Pain; No Dyspnea Stress Duration: 5:00 mm:ss Maximum Stress HR: 153 bpm METS: 7 Baseline Echocardiogram Findings The estimated ejection fraction is 65 %. Stress Echo Wall motion Data Resting WM Intermediate WM Stress WM Resting Wall Motion Wall Motion Stress No regional wall motion No regional wall motion abnormalities noted. abnormalities noted. EKG Data The baseline ECG displays normal sinus rhythm. The patient exercised according to the regular Jonathan protocol for a total duration of 5:00. The maximum heart rate attained was 157 beats per minute. This was 98% of maximum predicted heart rate. The patient exercised into stage 2 of the Jonathan protocol. During stress, there were no ST or T wave changes noted to suggest ischemia. Interpretation Summary The estimated ejection fraction is 65 %. Normal, adequate, treadmill echocardiogram. Negative for ischemia by EKG and echocardiographic criteria. No anginal symptoms noted. Appropriate blood pressure response to exercise. Below average exercise capacity for age. Rare PVC noted. Final LVEF is 75%. Test terminated due to dyspnea and fatigue. No complications. Ordering Physician: Rick Jones Referring Physician: Rick Jones Performed By: Teresa Cortez RDCS
--- NOTE | 2018-08-18 12:53 | PFT ---
INTRODUCTION: The patient is a 58-year-old male that presents for pulmonary function testing secondary to a diagnosis of chest pain. Respiratory therapy reports good patient effort. Bronchodilators were used during testing. INTERPRETATION: Forced expiration spirometry demonstrates no evidence of a large airways obstructive ventilatory defect. There was no significant response to aerosolized bronchodilators. Spirograms are of good quality and plateau normally. Body plethysmography was performed and reveals lung volumes to be within normal limits. Diffusing capacity by single breath CO is also within normal limits at 96% of predicted. IMPRESSION: Grossly normal pulmonary function testing.
== END ==
PROVIDERS: Family Provider Family Medicine; PCP Family Medicine; Referring Provider Internal Medicine Cardiovascular Disease; Visit Provider Internal Medicine Cardiovascular Disease
DX: I26.99 Other pulmonary embolism without acute cor pulmonale (principal); I48.91 Unspecified atrial fibrillation; R07.9 Chest pain, unspecified; R06.00 Dyspnea, unspecified; G47.33 Obstructive sleep apnea (adult) (pediatric)
CPT/HCPCS: 93017; 93350; 94060; 94726; 94729; Q9957; A4216; C8928

== ENCOUNTER → 2018-09-13 11:05 | Outpatient (CLI) | payer OTHER, SELFPAY ==
[2018-09-13 09:36] VITALS: BMI 41.7
[2018-09-13 11:44] LABS: Absolute Lymphocyte Count 1.62 X10^3/ul (0.83-4.51); Absolute Neutrophil Count 4.3 X10^3/uL (2.0-7.7); Basophil# 0.05 X10^3/uL; Basophil% 0.7 % (0-1); Eosinophil# 0.29 X10^3/uL; Eosinophils% 4.2 % (0-5); Hematocrit 43.7 % (40-54); Hemoglobin 14.8 g/dl (13.0-16.5); Lymphocyte # 1.62 X10^3/ul (4.0); Lymphocyte % 23.3 % (19-41); Mean Corp Hgb Conc 33.9 g/gl (32-36); Mean Corpuscular Hgb 32.5 pg (27.0-32.0); Mean Corpuscular Volume 95.8 fL (80-94); Mean Platelet Vol. 9.6 fl (6.2-12.0); Monocyte# 0.68 X10^3/uL; Monocyte% 9.8 % (0-10); Neutrophil # 4.29 X10^3/uL (2.7-7.7); Neutrophil % 61.7 % (47-70); Platelet Count 276 K/mm3 (150-450); RBC Distribution Width CV 11.7 % (11.6-14.6); RBC Distribution Width SD 40.2 fl (35.1-43.9); Red Blood Count 4.56 M/mm3 (4.6-6.2)
[2018-09-13 11:49] LABS: POSITIVE COUNT NO; POSITIVE DIFFERENTIAL NO; POSITIVE MORPHOLOGY NO
[2018-09-13 12:25] LABS: Anion Gap 10 (5-15); BUN 29 mg/dL (7-18); BUN/Creat Ratio 25.9 RATIO (10-20); Calcium,Total 9.1 mg/dL (8.5-10.1); Chloride 105 mmol/L (98-107); Cholesterol 179 mg/dL (200); Creatinine, Serum 1.12 mg/dL (0.70-1.30); EST Glomerular Filtration Rate 71 mL/min (>60); Est Glom Filt Rate - Afr Amer 86 mL/min (>60); Glucose 99 mg/dL (74-106); High Density Lipoprotein 41 mg/dL; PSA,Total - Annual Screen 1.67 ng/mL (0.00-4.00); Potassium 4.3 mmol/L (3.5-5.1); Sodium Level 138 mmol/L (136-145); Triglycerides 99 mg/dL; Very Low Density Lipoprotein 20 mg/dL (5-40)
== END ==
PROVIDERS: Family Provider Family Medicine; PCP Family Medicine; Referring Provider Physician Assistant Medical; Visit Provider Physician Assistant Medical
DX: R06.00 Dyspnea, unspecified (principal); I10 Essential (primary) hypertension; E78.00 Pure hypercholesterolemia, unspecified; Z12.5 Encounter for screening for malignant neoplasm of prostate
CPT/HCPCS: 36415; 80048; 80061; 84153; 85025; G0103

== ENCOUNTER 2018-10-21 06:37 | Day surgery (SDC) | payer OTHER, SELFPAY ==
[2018-10-15 14:25] VITALS: BMI 42.4
[2018-10-15 16:07] LABS: Absolute Lymphocyte Count 1.63 X10^3/ul (0.83-4.51); Absolute Neutrophil Count 4.3 X10^3/uL (2.0-7.7); Basophil# 0.05 X10^3/uL; Basophil% 0.7 % (0-1); Eosinophil# 0.32 X10^3/uL; Eosinophils% 4.4 % (0-5); Hematocrit 42.7 % (40-54); Hemoglobin 13.9 g/dl (13.0-16.5); Lymphocyte # 1.63 X10^3/ul (4.0); Lymphocyte % 22.4 % (19-41); Mean Corp Hgb Conc 32.6 g/gl (32-36); Mean Corpuscular Hgb 31.1 pg (27.0-32.0); Mean Corpuscular Volume 95.5 fL (80-94); Mean Platelet Vol. 9.4 fl (6.2-12.0); Monocyte# 0.93 X10^3/uL; Monocyte% 12.8 % (0-10); Neutrophil # 4.33 X10^3/uL (2.7-7.7); Neutrophil % 59.6 % (47-70); Platelet Count 239 K/mm3 (150-450); RBC Distribution Width CV 12.3 % (11.6-14.6); RBC Distribution Width SD 42.7 fl (35.1-43.9); Red Blood Count 4.47 M/mm3 (4.6-6.2); White Blood Count 7.3 K/mm3 (4.4-11.0)
[2018-10-15 16:13] LABS: POSITIVE COUNT NO; POSITIVE DIFFERENTIAL NO; POSITIVE MORPHOLOGY NO
[2018-10-15 16:45] LABS: Prothrombin Time (Protime)PT. 13.6 SECONDS (11.7-14.9)
[2018-10-15 16:52] LABS: Partial Thromboplast Time 27.2 Seconds (24.1-36.2)
[2018-10-15 16:53] LABS: Anion Gap 9 (5-15); BUN 28 mg/dL (7-18); BUN/Creat Ratio 24.8 RATIO (10-20); Calcium,Total 8.9 mg/dL (8.5-10.1); Chloride 107 mmol/L (98-107); Creatinine, Serum 1.13 mg/dL (0.70-1.30); EST Glomerular Filtration Rate 70 mL/min (>60); Est Glom Filt Rate - Afr Amer 85 mL/min (>60); Glucose 93 mg/dL (74-106); Potassium 3.7 mmol/L (3.5-5.1); Sodium Level 140 mmol/L (136-145)
[2018-10-20 09:53] VITALS: BMI 42.4
--- NOTE | 2018-10-21 08:35 | CL.D_ITS ---
Patient Name: MIGUE STROUD Study Date: 10/21/2018 Performing: Rick Jones MD Ht: 70.86 inches 180 cm : 1960 Wt: 304.24 lbs 138 kg Age: 58 Gender: male BSA: 2.52 PROCEDURE(S) PERFORMED AX00-YRT/COR/LV CLINICAL PROFILE AND INDICATIONS Indications: Suspected CAD, Cardiac Arrythmia, Evaluation for Exercise Clearance Heart Failure: None Stress/Imaging Stress Echocardiogram: Yes Result: IndeterminantStress Echocardiogram: Indetermina nt Angina Classification Anginal Classification w/in 2 Weeks: No symptoms CAD Presentations: No Sxs, no angina. Comorbidities/Risk Factors: Hypertension Chronic Lung Disease CONCLUSIONS Normal coronary arteries Normal LV size, wall motion,and systolic function Perserved Left Ventricular systolic function with normal EDP LVEF: by LV gram 75 % RECOMMENDATIONS No recommendations -> Normal findings D/c plavix, restart eliquis on 10/26/2018 for h/o PAF and pulmonary embolism. Manual sheath removal. Exercise program for weight loss. DESCRIPTION OF PROCEDURE The patient arrived to the procedure lab. The risks and benefits of the procedure as well as a full d escription of our services here and current unavailability of surgical backup were fully explained to the patient and/or their significant other prior to the catheterization. The Timeout was completed, verifying the correct patient and procedure. The patient's procedural site was prepped and draped in the usual fashion. Local anesthetic was given subcutaneously to right groin region with Lidocaine 2%. Using a modified Seldinger technique, arterial access was obtained via the right femoral artery, a 4 Fr sheath was inserted Left Coronary Artery selective angiography was performed in multiple views us ing a 4 Fr. JL5 catheter. Right Coronary Artery selective angiography was then performed in multiple views using a 4 Fr. 3DRC catheter. Left Ventriculography was performed in ROONEY projection using a 4 Fr . Pigtail catheter. LV to AO pullback pressures were then recorded.The arterial sheath was pulled and manual compression applied until hemostasis is achieved. CORONARY ANGIOGRAPHY DOMINANCE: Left Dominant LEFT HEART ASSESSMENT Left Ventricular Ejection Fraction: by LV Gram 75 % Normal LV wall motion Normal Left Ventricular systolic function Normal Left Ventricular systolic function LVEDP: 7-10 mmHg Normal Left Ventricular End Diastolic Pressure LEFT MAIN: Angiographically normal, Angiographically normal LEFT ANTERIOR DECENDING ARTERY: Angiographically normal, Angiographically normal CIRCUMFLEX ARTERY: Angiographically normal, Angiographically normal RIGHT CORONARY ARTERY: Angiographically normal Angiographically normal COMPLICATIONS No Complications PROCEDURE MEDICATIONS Oxygen: 2 L/min via nasal cannula SUMMARY OF HEMODYNAMIC DATA Time AIR REST ECG 07:01:32 AO 105/60 (80) SA 08:13:27 LV 129/-16, 12 08:19:16 LV 127/-10, 10 08:19:22 LVp 130/-20, 7 08:19:31 AOp 120/60 (84) 08:19:37 Signed By Rick Jones MD On 10/21/2018 8:33:19 AM Rick Jones MD
== END 2018-10-21 13:00 | disposition home or self-care (01) ==
LOC: CLSP 06:39
PROVIDERS: Family Provider Family Medicine; PCP Family Medicine; Referring Provider Internal Medicine Cardiovascular Disease; Visit Provider Internal Medicine Cardiovascular Disease
DX: I48.0 Paroxysmal atrial fibrillation (principal); I10 Essential (primary) hypertension; R06.09 Other forms of dyspnea; R07.89 Other chest pain; E78.5 Hyperlipidemia, unspecified; G47.33 Obstructive sleep apnea (adult) (pediatric); J45.909 Unspecified asthma, uncomplicated; K21.9 Gastro-esophageal reflux disease without esophagitis; M19.90 Unspecified osteoarthritis, unspecified site; E66.01 Morbid (severe) obesity due to excess calories; Z68.41 Body mass index [BMI] 40.0-44.9, adult; Z86.718 Personal history of other venous thrombosis and embolism; Z86.711 Personal history of pulmonary embolism; Z79.01 Long term (current) use 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s; Z79.899 Other long term (current) drug therapy
CPT/HCPCS: 36415; 80048; 85025; 85610; 85730; 93458; J7040; Q9967; C1769; C1894

== ENCOUNTER 2018-11-30 07:56 | Emergency (ER) | payer OTHER, SELFPAY ==
[2018-11-24 11:19] VITALS: BMI 42.4
[2018-11-30 07:57] VITALS: BP 148/77; PULSE 83; RESP 18; TEMP 36.4; O2SAT 96; BMI 41.0
--- NOTE | 2018-11-30 08:10 | CT_ITS ---
STUDY: CT ABDOMEN AND PELVIS WITH CONTRAST REASON FOR EXAM: Male, 58 years old. Left flank and lower abdomen pain, rectal pressure, nausea x 1 week. Prior left inguinal hernia repair, extremity, cholecystectomy, hypertension. RADIATION DOSAGE (If Supplied By Facility): CTDIvol = ( 22.05 ) mGy, DLP = ( 1445.82 ) mGycm TECHNIQUE: Transaxial images were obtained from the dome of the diaphragm to the symphysis pubis without oral contrast. Isovue 370 100mL IV was administered. Sagittal and coronal images were reconstructed. Individualized dose optimization techniques were used for this CT. COMPARISON: None. FINDINGS: The visualized lung bases are unremarkable. The visualized portions of the heart are within normal limits. There is decreased attenuation of the liver consistent with steatosis. Normal gallbladder and extrahepatic biliary system. Normal spleen. Normal pancreas. Normal bilateral adrenal glands. Normal right kidney. Normal left kidney. Normal visualized stomach. Normal small intestine. There are multiple colonic diverticula consistent with diverticulosis. There is non-visualization of the appendix. Normal abdominal aorta. Normal inferior vena cava. Normal retroperitoneum. Normal urinary bladder. Normal abdominal wall. There are diffuse degenerative changes of the visualized lumbar spine. CT/Abdomen/Pelvis W IV Cont ONLY IMPRESSION: Colon diverticulosis. Electronically Signed: Radha Abernathy, at 10:13 EDT Tel , Service support ,
--- NOTE | 2018-11-30 08:16 | ED.DCSUM_ITS ---
History of Present Illness Chief Complaint: Flank Pain Informant: Patient Onset: Weeks - 1 Context: Gradual Onset Timing: Intermittent - getting worse Quality: ache Location: left flank Current Severity: Mild Maximum Severity: Moderate Worsened by: nothing in particular Relieved by: nothing Associated Symptoms: nausea now. more frequent and severe. pain occ radiates into rectum - sharp Narrative: hx of several bowel surgeries including appendectomy, left inguinal herniorrhaphy, adhesions takedowns for bowel obstructions; none recent. Had recent heart cath that was normal; taken off of Plavix and put back on Eliquis, which he was on for PAF and a PE. Pt states he was also told to take a baby aspirin in addition. Denies any bleeding from anywhere, including stool/urine. Has no urinary symptoms with this. Symptoms do not seem to be changed by bowel movements. He chronically has had constipation and diarrhea off and on, sometimes in the same day. That is no different. Denies any fevers. Prior similar symptoms: No - Past Medical History (1) Paroxysmal atrial fibrillation Status: Chronic (2) Anxiety Status: Chronic (3) Arthritis Status: Chronic (4) Benign essential hypertension Status: Chronic (5) Gastroesophageal reflux disease Status: Chronic (6) Hyperlipidemia Status: Chronic (7) CORRINA (obstructive sleep apnea) Status: Chronic (8) Pulmonary embolism Status: Chronic Past Medical History - Allergies and Home Meds Allergies/Adverse Reactions: Allergies simvastatin Adverse Reaction (Severe, Verified 11/30/18 07:59) Myalgias doxycycline Adverse Reaction (Intermediate, Verified 11/30/18 07:59) GI upset Primary Care Physician: Hao Kumari MD [Primary Care Provider] - Surgical History: appendectomy, herniorrhaphy Lives: Spouse/ Significant Other Smoking Status: Never smoker - Family History Maternal Family History: Family History (Last Reviewed 11/04/18 @ 09:45 by June Barba) Mother CAD (coronary artery disease) Diabetes Hypertension Hyperlipidemia Father CVA (cerebral vascular accident) Family History: Reports: Diabetes, Heart Disease, Hypertension, - Paternal Family History: Family History (Last Reviewed 11/04/18 @ 09:45 by June Barba) Mother CAD (coronary artery disease) Diabetes Hypertension Hyperlipidemia Father CVA (cerebral vascular accident) Family History: Reports: - - Brain aneurysm. Review of Systems General: Denies: Chills, Fever, Sweats Eyes: Denies: Visual changes - bilaterally, Diplopia ENT: Denies: Rhinorrhea, Sore throat Cardiovascular: Denies: Chest pain, Palpitations Respiratory: Denies: Dyspnea, Cough, Dyspnea on exertion Gastrointestinal: Reports: Abdominal pain, Nausea, Diarrhea, Constipation. Denies: Vomiting, Melena, Hematochezia Genitourinary: Denies: Dysuria, Hematuria, Frequency Musculoskeletal: Reports: Arthralgias - chronic, Back pain - left low. Denies: Extremity Pain Skin: Denies: Rash, Wounds Neurological: Denies: Headache, Weakness, Numbness Physical Exam Vital Signs/Narrative: Vital Signs Temp Pulse Resp BP Pulse Ox 11/30/18 07:57 97.6 F L 83 18 148/77 H 96 Inital Vital Signs reviewed: Yes General: Well nourished, Well developed, No Acute Distress Head: Normocephalic, Atraumatic Eyes: Perrl, EOMI ENT: Moist mucous membranes, No rhinorrhea Neck: Supple, Nontender Cardiovascular: Regular rate, Regular rhythm, No murmurs. Negative for: Irregular Respiratory: No distress, CTA bilaterally, Chest nontender Abdomen: Soft, Nondistended, Normal bowel sounds, Tender - throughout left side and flank. Negative for: Guarding, Rebound tenderness Back: Nontender, Normal Inspection. Negative for: CVA tenderness Extremities: Nontender, No edema Skin: Normal color, No rash Neurological: Alert, Oriented x3, Cranial nerves II-XII grossly intact, Normal Strength, Normal Sensation, Normal Gait Psychological: Normal affect, Normal Mood Diagnostic/Tx/Re-eval Impressions Abdomen/Pelvis CT 11/30/18 08:10 IMPRESSION: Colon diverticulosis. Electronically Signed: Radha Abernathy, at 10:13 EDT Tel , Service support , 11/30/18 08:10 Abdomen/Pelvis W IV Cont ONLY [CT] Stat Laboratory Results 11/30/18 11/30/18 11/30/18 09:00 09:00 09:25 WBC 5.7 RBC 4.37 L Hgb 13.6 Hct 41.7 MCV 95.4 H MCH 31.1 MCHC 32.6 RDW 12.7 RDW Differential 44.3 H Plt Count 181 MPV 9.5 Immature Gran % (Auto) 0.200 Neut % (Auto) 61.0 Lymph % (Auto) 22.1 Bullock % (Auto) 12.1 H Eos % (Auto) 4.2 Baso % (Auto) 0.4 Absolute Neuts (auto) 3.5 Absolute Lymphs (auto) 1.26 Total Counted Not Reportable Sodium 135 L Potassium 4.1 Chloride 105 Carbon Dioxide 24.0 Anion Gap 6 BUN 25 H Creatinine 1.09 Estim Creat Clear Calc 76.76 Est GFR (MDRD) Af Amer 89 Est GFR (MDRD) Non-Af 73 BUN/Creatinine Ratio 22.9 H Glucose 110 H Calcium 8.5 Urine Color Yellow Urine Clarity Sl. Cloudy Urine pH 7.0 Ur Specific [place]ney 1.010 Urine Protein Negative Urine Glucose (UA) Normal Urine Ketones Negative Urine Occult Blood Negative Urine Nitrite Negative Urine Bilirubin Negative Urine Urobilinogen Normal Ur Leukocyte Esterase Negative Urine RBC 0-5 SEEN Urine WBC 0 SEEN Ur Squamous Epith Cells 0-5 SEEN Urine Bacteria 0 SEEN Urine Mucus 0 SEEN - Medical Decision Making Labs show no significant leukocytosis, given his history of bowel obstructions and adhesions, as well as discomfort with palpation throughout the left side of his abdomen, I obtained a CT with IV contrast. It shows diverticulosis without diverticulitis and no other acute abnormality or sign of obstruction. With fluids, Zofran, and oral Bentyl, his discomfort is improved, consistent with my suspicion of bowel discomfort/spasm as etiology of his pain. However the cause of that is unknown. If viral, it may resolve on its own, however it is already been there for a week. He has an appointment with Dr. Boland tomorrow. He may need colonoscopy if his discomfort continues. Will prescribe him these medications for use as needed for his symptoms and he is comfortable with this plan. ED Disposition - Plan for ED Patient: Disposition: Home or Assisted Living Diagnosis: Left sided abdominal pain Instructions: ED Abdominal Pain Unkn Cause Prescriptions: Ondansetron [Zofran] 8 mg PO Q8H PRN PRN #12 tablet PRN Reason: Nausea Dicyclomine HCl [Bentyl] 20 mg PO Q6H PRN #20 capsule PRN Reason: abdominal pain Referrals: Hao Kumari MD [Primary Care Provider] - 1 Week if not improving Alon Boland MD [STAFF PHYSICIAN] - Keep Cristina appointment
[2018-11-30] MEDS: Dicyclomine 10 MG Capsule 20 MG PO (09:08)
[2018-11-30] MEDS: Ondansetron 4 MG/2 ML Vial IV (09:08)
[2018-11-30] MEDS: 0.9% Normal Saline 1,000 ML 250 ML IV (09:08)
[2018-11-30 09:13] LABS: Absolute Lymphocyte Count 1.26 X10^3/ul (0.83-4.51); Absolute Neutrophil Count 3.5 X10^3/uL (2.0-7.7); Basophil# 0.02 X10^3/uL; Basophil% 0.4 % (0-1); Eosinophil# 0.24 X10^3/uL; Eosinophils% 4.2 % (0-5); Hematocrit 41.7 % (40-54); Hemoglobin 13.6 g/dl (13.0-16.5); Lymphocyte # 1.26 X10^3/ul (4.0); Lymphocyte % 22.1 % (19-41); Mean Corp Hgb Conc 32.6 g/gl (32-36); Mean Corpuscular Hgb 31.1 pg (27.0-32.0); Mean Corpuscular Volume 95.4 fL (80-94); Mean Platelet Vol. 9.5 fl (6.2-12.0); Monocyte# 0.69 X10^3/uL; Monocyte% 12.1 % (0-10); Neutrophil # 3.48 X10^3/uL (2.7-7.7); POSITIVE COUNT NO; POSITIVE DIFFERENTIAL NO; POSITIVE MORPHOLOGY NO; Platelet Count 181 K/mm3 (150-450); RBC Distribution Width CV 12.7 % (11.6-14.6); RBC Distribution Width SD 44.3 fl (35.1-43.9); Red Blood Count 4.37 M/mm3 (4.6-6.2); White Blood Count 5.7 K/mm3 (4.4-11.0)
[2018-11-30 09:31] LABS: Anion Gap 6 (5-15); BUN 25 mg/dL (7-18); BUN/Creat Ratio 22.9 RATIO (10-20); Calcium,Total 8.5 mg/dL (8.5-10.1); Chloride 105 mmol/L (98-107); Creatinine, Serum 1.09 mg/dL (0.70-1.30); EST Glomerular Filtration Rate 73 mL/min (>60); Est Glom Filt Rate - Afr Amer 89 mL/min (>60); Estimated Creatinine Clearance 76.76 ml/min; Glucose 110 mg/dL (74-106); Potassium 4.1 mmol/L (3.5-5.1); Sodium Level 135 mmol/L (136-145)
[2018-11-30 09:32] LABS: Bacteria 0 SEEN /hpf (None Seen); Mucous, Urine 0 SEEN /hpf (<or=2+); White Blood Cells 0 SEEN /hpf (0-5)
[2018-11-30 09:40] LABS: Color, Urine Yellow (Yellow); Glucose, Dipstick Normal (Normal); Ketone-Dipstick Negative (Negative); Leukocyte Esterase-Dipstick Negative /ul (Negative); Nitrite-Dipstick Negative (Negative); Occult Blood-Urine Negative /ul (Negative); Protein-Dipstick Negative (Negative); Urine Bilirubin Dipstick Negative (Negative); Urine Clarity Sl. Cloudy (Clear); Urine Urobilinogen Normal (Normal)
[2018-11-30 09:59] LABS: Red Blood Cells-Urine 0-5 SEEN /hpf (0-5); Squamous Epithelial Cells - UA 0-5 SEEN /hpf (0-5)
[2018-11-30 10:30] VITALS: BP 122/65; PULSE 70; RESP 16; O2SAT 98
== END 2018-11-30 10:59 | disposition home or self-care (01) ==
PROVIDERS: Emergency Provider Emergency Medicine; Family Provider Family Medicine; PCP Family Medicine
DX: R10.12 Left upper quadrant pain (principal); R10.32 Left lower quadrant pain; I48.0 Paroxysmal atrial fibrillation; I10 Essential (primary) hypertension; E78.5 Hyperlipidemia, unspecified; M19.90 Unspecified osteoarthritis, unspecified site; K21.9 Gastro-esophageal reflux disease without esophagitis; Z79.01 Long term (current) use 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s; Z86.711 Personal history of pulmonary embolism; Z79.82 Long term (current) use of aspirin; Z79.899 Other long term (current) drug therapy
CPT/HCPCS: 74177; 80048; 81001; 85025; 96361; 96374; 99285; Q9967; A4216; J2405

== ENCOUNTER 2018-12-03 06:18 | Day surgery (SDC) | payer OTHER, SELFPAY ==
[2018-12-01 15:07] VITALS: BMI 41.0
[2018-12-03] VITALS (7 sets, daily range): BP systolic 80–118; BP diastolic 50–62; PULSE 74–83; RESP 14–18; TEMP 36.2–37.2; O2SAT 96–98; BMI 40.3
--- NOTE | 2018-12-03 08:02 | OP.ENDO_ITS ---
12/03/2018 Hao Kumari [address] [place] [address] Re : Colonoscopy procedure for Maxime Gunter Dear Dr. Kumari This procedure was performed on Monday, December 03, 2018. My impressions and recommendations are as follows: Impressions : - Preparation of the colon was fair. - Hemorrhoids found on perianal exam. - Diverticulosis in the entire examined colon. - The examination was otherwise normal. - No specimens collected. Recommendations : - Discharge patient to home. - Resume previous diet. - Continue present medications. Resume eliquis this a.m. - Repeat colonoscopy in 5 years for surveillance. My findings are described in the full procedure note, which is enclosed. If I can be of further assistance, please feel free to contact me at Doctor phone number(s): Work: . Sincerely, Alon Boland MD 12/03/2018 8:02:15 AM This report has been signed electronically.
== END 2018-12-03 08:53 | disposition home or self-care (01) ==
LOC: EN 06:19 → AC 06:21
PROVIDERS: Family Provider Family Medicine; PCP Family Medicine; Referring Provider Surgery; Visit Provider Surgery
PROC: 0DJD8ZZ Inspection of Lower Intestinal Tract, Via Natural or Artificial Opening Endoscopic (ICD-10-PCS; CPT 45378; principal; 2018-12-03 07:25)
DX: K64.9 Unspecified hemorrhoids (principal); K57.30 Diverticulosis of large intestine without perforation or abscess without bleeding; R10.32 Left lower quadrant pain; K21.9 Gastro-esophageal reflux disease without esophagitis; I48.91 Unspecified atrial fibrillation; I10 Essential (primary) hypertension; M19.90 Unspecified osteoarthritis, unspecified site; G47.33 Obstructive sleep apnea (adult) (pediatric); E78.5 Hyperlipidemia, unspecified; E66.9 Obesity, unspecified; Z68.41 Body mass index [BMI] 40.0-44.9, adult; Z87.19 Personal history of other diseases of the digestive system; Z86.718 Personal history of other venous thrombosis and embolism; Z86.711 Personal history of pulmonary embolism; Z79.01 Long term (current) use 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s; Z79.82 Long term (current) use of aspirin; Z79.899 Other long term (current) drug therapy
CPT/HCPCS: 45378; J7120

== ENCOUNTER 2019-05-12 18:05 | Emergency (ER) | payer OTHER, SELFPAY ==
[2018-12-03 06:59] VITALS: BMI 40.3
[2019-05-12 18:06] VITALS: BP 122/60; PULSE 102; RESP 17; TEMP 36.4; O2SAT 97; BMI 41.6
[2019-05-12 18:11] VITALS: RESP 18
--- NOTE | 2019-05-12 18:49 | US_ITS ---
STUDY: VENOUS DOPPLER ULTRASOUND - LEFT LOWER EXTREMITY REASON FOR EXAM: Male, 59 years old. Left leg pain and swelling TECHNIQUE: Ultrasound evaluation of the deep vein system to include robert-scale imaging and compression was performed. Robert-scale imaging and Doppler sonographic evaluation, including duplex spectral analysis and qualitative color flow sonography, was performed. COMPARISON: None. FINDINGS: Common Femoral Vein: Normal compression, spontaneity and augmentation. Normal color Doppler. Common Femoral Vein/Greater Saphenous Junction: Normal compression, spontaneity and augmentation. Normal color Doppler. Deep Femoral Vein: Normal compression, spontaneity and augmentation. Normal color Doppler. Femoral Proximal: Normal compression, spontaneity and augmentation. Normal color Doppler. Femoral Middle: Normal compression, spontaneity and augmentation. Normal color Doppler. Femoral Distal: Normal compression, spontaneity and augmentation. Normal color Doppler. Popliteal Vein: Normal compression, spontaneity and augmentation. Normal color Doppler. Posterior Tibial Vein: Normal compression, spontaneity and augmentation. Normal color Doppler. Peroneal Vein: Normal compression, spontaneity and augmentation. Normal color Doppler. Subcutaneous edema noted left lower leg. US/Venous Duplex Imag/Limited/Uni IMPRESSION: No DVT Electronically Signed: Ian Freeman MD at 19:45 EDT , Service support ,
--- NOTE | 2019-05-12 19:41 | ED.VIS.GEN ---
History of Present Illness Chief Complaint: Lower Extremity Injury Detail of Chief Complaint: Left leg swelling and redness Informant: Patient Onset: Today Context: Gradual Onset Current Severity: Mild Maximum Severity: Moderate Narrative: Patient presents with swelling and redness to the left lower extremity today. He states when he tries to ambulate on his leg it is painful. He has a history of DVT and is concerned for this. He is on Eliquis. He states overall he just has not felt well today. He has some mild body aches. He has had some mild shortness of breath. No significant cough. Past Medical History - Allergies and Home Meds Allergies/Adverse Reactions: Allergies simvastatin Adverse Reaction (Severe, Verified 05/12/19 18:06) Myalgias doxycycline Adverse Reaction (Intermediate, Verified 05/12/19 18:06) GI upset Primary Care Physician: Hao Kumari MD [Primary Care Provider] - Prior records reviewed: Yes Past Medical History: - - Reviewed Surgical History: appendectomy, herniorrhaphy Lives: Spouse/ Significant Other Smoking Status: Never smoker - Family History Maternal Family History: Family History (Last Reviewed 05/11/19 @ 11:13 by Jennifer Coulter) Mother CAD (coronary artery disease) Diabetes Hypertension Hyperlipidemia Heart disease Father CVA (cerebral vascular accident) Family History: Reports: Diabetes, Heart Disease, Hypertension, - Paternal Family History: Family History (Last Reviewed 05/11/19 @ 11:13 by Jennifer Coulter) Mother CAD (coronary artery disease) Diabetes Hypertension Hyperlipidemia Heart disease Father CVA (cerebral vascular accident) Family History: Reports: - Review of Systems General: Reports: Chills. Denies: Fever Eyes: Denies: Visual changes - bilaterally ENT: Denies: Bilateral ear pain Cardiovascular: Denies: Chest pain Respiratory: Reports: Dyspnea. Denies: Cough Gastrointestinal: Denies: Abdominal pain, Nausea, Vomiting Musculoskeletal: Reports: Myalgias Skin: Reports: Rash Neurological: Denies: Headache Endocrine: Denies: Polyuria, Polydipsia Hematologic: Denies: Easy bruising Allergy: Denies: Uticaria Physical Exam Vital Signs/Narrative: Vital Signs Temp Pulse Resp BP Pulse Ox 05/12/19 18:11 18 05/12/19 18:06 97.5 F L 102 H 17 122/60 H 97 Inital Vital Signs reviewed: Yes General: Well nourished, Well developed Eyes: Perrl ENT: Moist mucous membranes Neck: Supple Cardiovascular: Regular rate, Regular rhythm Respiratory: No distress, CTA bilaterally Abdomen: Soft, Nontender Extremities: - - 2+ edema to the bilateral lower extremities. Left lower leg does have some chronic venous skin changes. There is also erythema and mild warmth up to the knee. There is a small abrasion over the anterior lopez. No drainage from the wound. Strong distal pulses are noted. No joint tenderness. Neurological: Alert, Oriented x3 Psychological: Normal affect Diagnostic/Tx/Re-eval - Medical Decision Making Venous ultrasound is obtained and reveals no evidence of DVT. I explained to the patient believe he is developing cellulitis. He will be given Bactrim and Keflex, first doses here. He is to return for worsening erythema or continued and worsening fevers. ED Disposition - Plan for ED Patient: Disposition: Home or Assisted Living Diagnosis: Cellulitis Instructions: Cellulitis Prescriptions: Smz/Tmp Ds [Bactrim Ds] 1 tablet PO BID #20 tablet Cephalexin [Keflex] 500 mg PO Q6 #40 capsule Referrals: Hao Kumari MD [Primary Care Provider] - 5-7 Days
[2019-05-12] MEDS: Smz/Tmp Ds Tablet 1 TABLET PO (19:52)
[2019-05-12] MEDS: Cephalexin 250 MG Capsule 500 MG PO (19:52)
[2019-05-12 19:54] VITALS: PULSE 94; RESP 18; O2SAT 98
== END 2019-05-12 19:56 | disposition home or self-care (01) ==
PROVIDERS: Emergency Provider Emergency Medicine; Family Provider Family Medicine; PCP Family Medicine
DX: L03.116 Cellulitis of left lower limb (principal); S80.812A Abrasion, left lower leg, initial encounter; X58.XXXA Exposure to other specified factors, initial encounter; Y93.9 Activity, unspecified; Y92.9 Unspecified place or not applicable; R06.00 Dyspnea, unspecified; Z86.718 Personal history of other venous thrombosis and embolism; Z79.01 Long term (current) use 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s
CPT/HCPCS: 93971; 99284

== ENCOUNTER → 2019-05-24 10:16 | Outpatient (CLI) | payer OTHER, SELFPAY ==
[2019-05-24 12:49] LABS: Absolute Lymphocyte Count 1.14 X10^3/uL (0.83-4.51); Absolute Neutrophil Count 3.3 X10^3/uL (2.0-7.7); Basophil# 0.05 X10^3/uL; Basophil% 0.9 % (0-1); Eosinophil# 0.24 X10^3/uL; Eosinophils% 4.5 % (0-5); Hematocrit 41.7 % (40-54); Hemoglobin 13.9 g/dL (13.0-16.5); Lymphocyte # 1.14 X10^3/ul (4.0); Lymphocyte % 21.5 % (19-41); Mean Corp Hgb Conc 33.3 g/dL (32-36); Mean Corpuscular Hgb 32.2 pg (27.0-32.0); Mean Corpuscular Volume 96.5 fL (80-94); Mean Platelet Vol. 9.7 fl (6.2-12.0); Monocyte# 0.51 X10^3/uL; Monocyte% 9.6 % (0-10); NRBC Flagged by Analyzer 0 % (0-5); Neutrophil # 3.32 X10^3/uL (2.7-7.7); Neutrophil % 62.7 % (47-70); Platelet Count 185 K/mm3 (150-450); RBC Distribution Width CV 12.3 % (11.6-14.6); RBC Distribution Width SD 43.8 fl (35.1-43.9); Red Blood Count 4.32 M/mm3 (4.6-6.2); White Blood Count 5.3 K/mm3 (4.4-11.0)
[2019-05-24 13:21] LABS: Anion Gap 6 (5-15); BUN 21 mg/dL (7-18); BUN/Creat Ratio 14.5 RATIO (10-20); Calcium,Total 9.5 mg/dL (8.5-10.1); Chloride 103 mmol/L (98-107); Creatinine, Serum 1.45 mg/dL (0.70-1.30); EST Glomerular Filtration Rate 53 mL/min (>60); Est Glom Filt Rate - Afr Amer 64 mL/min (>60); Glucose 102 mg/dL (74-106); Potassium 5.2 mmol/L (3.5-5.1); Sodium Level 135 mmol/L (136-145)
== END ==
PROVIDERS: Family Provider Family Medicine; PCP Family Medicine; Referring Provider Family Medicine; Visit Provider Family Medicine
DX: L03.90 Cellulitis, unspecified (principal)
CPT/HCPCS: 36415; 80048; 85025

== ENCOUNTER → 2019-06-06 10:05 | Outpatient (CLI) | payer OTHER, SELFPAY ==
[2019-06-06 12:26] LABS: Anion Gap 3 (5-15); BUN 22 mg/dL (7-18); Calcium,Total 8.9 mg/dL (8.5-10.1); Chloride 104 mmol/L (98-107); Creatinine, Serum 1.16 mg/dL (0.70-1.30); EST Glomerular Filtration Rate 68 mL/min (>60); Est Glom Filt Rate - Afr Amer 82 mL/min (>60); Glucose 101 mg/dL (74-106); Potassium 4.7 mmol/L (3.5-5.1); Sodium Level 136 mmol/L (136-145)
== END ==
PROVIDERS: Family Provider Family Medicine; PCP Family Medicine; Visit Provider Family Medicine
DX: I10 Essential (primary) hypertension (principal)
CPT/HCPCS: 36415; 80048

== ENCOUNTER 2019-06-16 09:01 | Emergency (ER) | payer OTHER, SELFPAY ==
[2019-06-16 09:02] VITALS: BP 131/71; PULSE 78; RESP 14; TEMP 36.7; O2SAT 97; BMI 43.0
--- NOTE | 2019-06-16 09:21 | RAD_ITS ---
STUDY: X-RAY CHEST REASON FOR EXAM: Male, 59 years old. Shortness of breath. TECHNIQUE: PA and lateral views of the chest. COMPARISON: Comparison is made with prior examination in July 02, 2015. FINDINGS: Hyperinflation. Stable increased linear markings at the lung bases slightly worse on the left side suggestive of scarring. There is no demonstrated pleural abnormality. Normal size heart. Normal mediastinum and rubina. Normal visualized pulmonary arteries. There is atherosclerotic tortuosity of the aortic arch and descending thoracic aorta. There is demineralization of the osseous structures. Normal visualized ribs, clavicles, and shoulders. There is no demonstrated abnormality of the visualized soft tissue structures of the upper abdomen. RAD/Chest PA and Lateral IMPRESSION: Stable increased linear markings at the lung bases suggestive of bibasilar scarring. Electronically Signed: Al Beasley, at 10:52 EDT , Service support ,
--- NOTE | 2019-06-16 09:21 | EKG12_ITS ---
Test Reason : CP Blood Pressure : / mmHG Vent. Rate : 075 BPM Atrial Rate : 075 BPM P-R Int : 156 ms QRS Dur : 080 ms QT Int : 388 ms P-R-T Axes : 003 002 003 degrees QTc Int : 433 ms Normal sinus rhythm Normal ECG Confirmed by LIZBETH HILARIO ([id number]), editor magazine DAVE RIVERA ([id number]) on 06/20/2019 12:27:03 PM Referred By: ASHLEIGH Confirmed By:LIZBETH HILARIO
--- NOTE | 2019-06-16 09:21 | VDLE_ITS ---
Reason For Study: Swelling RIGHT LEFT GSV is normal. GSV is normal. CFV is compressible, spontaneous, phasic, CFV is compressible, spontaneous, phasic, competent and demonstrates normal competent, and demonstrates normal augmentation. augmentation. FV is compressible, spontaneous, phasic, FV is compressible, spontaneous, phasic, competent and demonstrates normal competent and demonstrates normal augmentation. augmentation. POP V is compressible, spontaneous, phasic, POP V is compressible, spontaneous, phasic, competent and demonstrates normal competent and demonstrates normal augmentation. augmentation. T/P Trunk is compressible. T/P Trunk is compressible. PTV is compressible. PTV is compressible. RT PerV is compressible. LT PerV is compressible. Procedure Exam performed portable in ED. A preliminary report was called and/or faxed to [facility]. Interpretation Summary Deep veins of the lower extremities are bilaterally patent and compressible segmentally. There is no evidence of deep vein thrombosis on either side. Valvular competence appears intact within the proximal deep venous systems bilaterally. The great saphenous veins appear bilaterally patent and compressible segmentally. Ordering Physician: Harish Casanova Referring Physician: Hao Kumari M.D. Performed By: Carmel Collins RVT
--- NOTE | 2019-06-16 09:24 | ED.DCSUM_ITS ---
- ER Visit Summary Date of Service: 06/16/19 Chief Complaint: Leg edema and shortness of breath History of Present Illness: The patient is a 59 M who presents with lower extremity edema and shortness of breath is been getting worse over the past couple months. Patient states she feels short of breath and tightness in his chest. Patient states this is worse with any exertion. Patient states he has had a 10 pound weight gain in the past week and a 3 pound weight gain since yesterday. Patient states he does have some pain in his calves which is worse on the left. Patient denies any nausea or vomiting. Patient denies abdominal pain. Patient denies any fevers or chills. Physical Examination: Vital signs are stable. Patient is afebrile. Patient is in no acute distress. Oral mucosa is pink and moist. Oropharynx is clear. Pupils are equal, round, and reactive to light bilaterally. Extraocular muscles are intact. There is no scleral icterus noted. Neck is supple. Trachea is midline. There is no JVD noted. Heart with regular rate and rhythm. Lungs are clear and equal bilaterally. Abdomen is soft. Bowel sounds are normal. There is no tenderness. Cranial nerves II through XII are intact. There are no focal motor or sensory deficits noted. Extremities are intact. There is 2-3+ edema of the lower extremities bilaterally. There is some mild calf tenderness on the left. Test Results: CBC and comprehensive metabolic profile were obtained and were essentially within normal limits. BNP was normal. Troponin was normal. Urinalysis does not show any evidence of urinary tract infection. Venous duplex of the lower extremities was obtained bilaterally. There is no evidence of DVT. CTA of the chest was obtained. There is a small pulmonary embolism in the right lower lobe. Patient is on Eliquis for this. CT scan of the abdomen pelvis was obtained. There is a small umbilical hernia containing fat. There is no other intra-abdominal abnormality. EKG showed a normal sinus rhythm with a rate of 75. There are no acute ST or T wave changes. Emergency Department Course and Treatment: Patient was feeling better on reevaluation. Case was discussed with Dr. Jones. He recommended having the patient wrap his legs and keep them elevated. He does not want the patient to increase his Lasix because he is on Cardizem as well and this interaction may cause worsening. Patient was instructed to continue his Eliquis and other medications as previously prescribed. Patient was instructed to follow-up with his primary care physician in 3 to 5 days. Patient understood and was agreeable with the plan. All questions were answered. Disposition: Discharge home Impression: 1. Lower extremity edema This note was generated with Trunq[employer] dictation software. It may contain incorrect words, spelling, and punctuation that were not noted in review of the chart prior to signing ED Disposition - Plan for ED Patient: Disposition: Home or Assisted Living Diagnosis: Lower extremity edema, Pulmonary embolism Instructions: ED Peripheral Edema, Bilateral Referrals: Hao Kumari MD [Primary Care Provider] - 3-5 Days Additional Instructions: Wrap your legs with Facundo bandages and keep them elevated. Follow-up with your primary care physician in 3 to 5 days.
[2019-06-16 09:35] LABS: Bacteria 0 SEEN /hpf (None Seen); Mucous, Urine 0 SEEN /hpf (<or=2+); Red Blood Cells-Urine 0 SEEN /hpf (0-5); White Blood Cells 0 SEEN /hpf (0-5)
[2019-06-16 09:36] LABS: Color, Urine Straw (Yellow); Glucose, Dipstick Normal (Normal); Ketone-Dipstick Negative (Negative); Leukocyte Esterase-Dipstick Negative /ul (Negative); Nitrite-Dipstick Negative (Negative); Occult Blood-Urine Negative /ul (Negative); Protein-Dipstick Negative (Negative); Urine Bilirubin Dipstick Negative (Negative); Urine Clarity Clear (Clear); Urine Urobilinogen Normal (Normal); Urine pH 6.5 (5.0 - 8.0)
[2019-06-16 09:42] LABS: Squamous Epithelial Cells - UA 0-5 SEEN /hpf (0-5)
[2019-06-16 09:52] LABS: Absolute Lymphocyte Count 1.07 X10^3/uL (0.83-4.51); Absolute Neutrophil Count 4.5 X10^3/uL (2.0-7.7); Basophil# 0.03 X10^3/uL; Basophil% 0.5 % (0-1); Eosinophil# 0.19 X10^3/uL; Eosinophils% 2.9 % (0-5); Hematocrit 40.5 % (40-54); Hemoglobin 13.1 g/dL (13.0-16.5); Lymphocyte # 1.07 X10^3/ul (4.0); Lymphocyte % 16.4 % (19-41); Mean Corp Hgb Conc 32.3 g/dL (32-36); Mean Corpuscular Hgb 31.6 pg (27.0-32.0); Mean Corpuscular Volume 97.8 fL (80-94); Mean Platelet Vol. 9.2 fl (6.2-12.0); Monocyte# 0.68 X10^3/uL; Monocyte% 10.4 % (0-10); NRBC Flagged by Analyzer 0 % (0-5); Neutrophil # 4.53 X10^3/uL (2.7-7.7); Neutrophil % 69.5 % (47-70); Platelet Count 209 K/mm3 (150-450); RBC Distribution Width CV 12.6 % (11.6-14.6); RBC Distribution Width SD 45.2 fl (35.1-43.9); Red Blood Count 4.14 M/mm3 (4.6-6.2); White Blood Count 6.5 K/mm3 (4.4-11.0)
[2019-06-16 10:13] LABS: ALB/GLOB Ratio 1.1 RATIO (0.9-2.4); AST(SGOT) 17 U/L (15-37); Alanine Aminotransfer ALT/SGPT 30 U/L (16-61); Albumin, Serum 3.7 g/dL (3.2-5.0); Alkaline Phosphatase 50 U/L (45-117); Anion Gap 2 (5-15); BUN 20 mg/dL (7-18); BUN/Creat Ratio 17.7 RATIO (10-20); Calcium,Total 8.8 mg/dL (8.5-10.1); Chloride 108 mmol/L (98-107); Creatinine, Serum 1.13 mg/dL (0.70-1.30); EST Glomerular Filtration Rate 70 mL/min (>60); Est Glom Filt Rate - Afr Amer 85 mL/min (>60); Estimated Creatinine Clearance 73.12 ml/min; Globulin 3.5 g/dL (2.2-4.2); Glucose 102 mg/dL (74-106); Lipase 105 U/L (73-393); Potassium 3.9 mmol/L (3.5-5.1); Protein, Total 7.2 g/dL (6.4-8.2); Sodium Level 141 mmol/L (136-145)
[2019-06-16 10:30] LABS: BNP,B-Type NATRIURETIC PEPTIDE 41.7 pg/mL (0-100)
[2019-06-16 11:01] VITALS: BP 145/57; PULSE 71; RESP 18; O2SAT 98
--- NOTE | 2019-06-16 11:24 | CT_ITS ---
STUDY: CT ABDOMEN AND PELVIS WITH CONTRAST REASON FOR EXAM: Male, 59 years old. Abdominal pain. Shortness of breath. RADIATION DOSAGE (If Supplied By Facility): CTDIvol = ( 26.09 ) mGy, DLP = ( 2245.24 ) mGycm TECHNIQUE: Transaxial images were obtained from the dome of the diaphragm to the symphysis pubis without oral contrast. IV Isovue 370 100 was administered. Sagittal and coronal images were reconstructed. Individualized dose optimization techniques were used for this CT. COMPARISON: Comparison is made with prior study dated November 30, 2018. FINDINGS: The visualized lung bases are unremarkable. The visualized portions of the heart are within normal limits. Normal liver. Normal gallbladder and extrahepatic biliary system. Normal spleen. Normal pancreas. Normal bilateral adrenal glands. Normal right kidney. Normal left kidney. There is a small hiatal hernia. Normal small intestine. There are multiple colonic diverticula consistent with diverticulosis. There is non-visualization of the appendix. Normal abdominal aorta. Normal inferior vena cava. Normal retroperitoneum. Normal urinary bladder. There are prostatic calcifications. There is a small umbilical hernia containing fat. There are diffuse degenerative changes of the visualized lumbar spine. Minimal anterior listhesis of L4 on L5. Facet joint osteoarthritis. CT/Abdomen/Pelvis W IV Cont ONLY IMPRESSION: Small umbilical hernia containing fat. Sigmoid diverticulosis. Central prostatic calcifications. Electronically Signed: Al Beasley, at 12:46 EDT , Service support ,
--- NOTE | 2019-06-16 11:24 | CT_ITS ---
STUDY: CTA CHEST REASON FOR EXAM: Male, 59 years old. Shortness of breath. Abdominal pain. RADIATION DOSAGE (If Supplied By Facility): CTDIvol = ( 26.09 ) mGy, DLP = ( 2245.24 ) mGycm TECHNIQUE: The examination was performed with the intravenous administration of IV Isovue 370 100. Post-processing of the angiographic images was performed, with multiplanar reformation and 3D reconstruction. Individualized dose optimization techniques were used for this CT. COMPARISON: Chest x-ray June 16, 2019. Chest CT June 08, 2018.. FINDINGS: There is limited enhancement of the main pulmonary artery and right and left pulmonary arteries. There is focal diminished enhancement involving right lower lobe pulmonary artery branch in the mid chest, series 2 image 151/279 and series 601 image 220/332 . There are smaller similar appearing filling defect in the periphery of the left mid and lower lung. Normal thoracic aorta and visualized great vessels. There is no demonstrated aortic dissection. Normal heart and pericardium. Normal mediastinum. Normal hilar regions. Normal visualized trachea and bronchi. The lungs are well expanded. Normal pulmonary parenchyma. Normal pleura. Normal chest wall structures. There are degenerative changes of thoracic spine. Normal visualized upper abdomen. CT/CTA Chest W/WO Contrast IMPRESSION: Small pulmonary embolism. Electronically Signed: Artem Argueta MD at 12:23 EDT , Service support ,
[2019-06-16 13:36] VITALS: BP 119/69; PULSE 69; RESP 16; O2SAT 98
[2019-06-16 14:20] LABS: Thyroid Stim Hormone (TSH) 1.39 uIU/mL (0.358-3.74)
[2019-06-16 14:34] VITALS: BP 124/74; PULSE 70; RESP 16; O2SAT 98
== END 2019-06-16 14:35 | disposition home or self-care (01) ==
PROVIDERS: Emergency Provider Emergency Medicine; Family Provider Family Medicine; PCP Family Medicine
DX: R60.0 Localized edema (principal); R06.02 Shortness of breath; I10 Essential (primary) hypertension; K21.9 Gastro-esophageal reflux disease without esophagitis; I26.99 Other pulmonary embolism without acute cor pulmonale; I48.91 Unspecified atrial fibrillation; Z79.01 Long term (current) use 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s; Z79.82 Long term (current) use of aspirin; Z79.899 Other long term (current) drug therapy
CPT/HCPCS: 71046; 71275; 74177; 80053; 81001; 83690; 83880; 84443; 84484; 85025; 93005; 93970; 99285; Q9967

== ENCOUNTER → 2019-06-20 13:43 | Outpatient (CLI) | payer OTHER, SELFPAY ==
[2019-06-16 09:02] VITALS: BMI 43.0
--- NOTE | 2019-06-20 13:46 | ART_ITS ---
Reason For Study: Edema Procedure A bilateral lower extremity continuous wave Doppler with analog waveform analysis and ankle brachial indexes. Left Segmental Pressures Left brachial= 139mmHg. Left posterior tibial artery = 150mmHg. Left dorsalis pedis artery = 168mmHg. The left dorsalis pedis waveforms are triphasic. The left posterior tibial artery waveforms are triphasic. Right Segmental Pressures Right brachial= 138mmHg. Right posterior tibial artery = 159mmHg. Right dorsalis pedis artery = 151mmHg. The right dorsalis pedis waveforms are triphasic. The right posterior tibial artery waveforms are triphasic. Indices The right ankle brachial index by the dorsalis pedis is 1.09. The right ankle brachial index by the posterior tibial artery is 1.14. The left ankle brachial index by the dorsalis pedis is 1.21. The left ankle brachial index by the posterior tibial artery is 1.08. Interpretation Summary 1. No evidence occlussive disease at rest with WILFREDO 1.14 on right and 1.21 on left. Ordering Physician: Rick Jones Referring Physician: Hao Membreno Performed By: Carmel Collins RVT
== END ==
PROVIDERS: Family Provider Family Medicine; PCP Family Medicine; Referring Provider Internal Medicine Cardiovascular Disease; Visit Provider Internal Medicine Cardiovascular Disease
DX: R60.9 Edema, unspecified (principal); R63.5 Abnormal weight gain; Z86.718 Personal history of other venous thrombosis and embolism
CPT/HCPCS: 93922

== ENCOUNTER → 2019-07-06 07:22 | Outpatient (CLI) | payer OTHER, SELFPAY ==
[2019-06-16 09:02] VITALS: BMI 43.0
[2019-07-06 10:36] LABS: Anion Gap 8 (5-15); BUN 23 mg/dL (7-18); Chloride 106 mmol/L (98-107); EST Glomerular Filtration Rate 81 mL/min (>60); Est Glom Filt Rate - Afr Amer 98 mL/min (>60); Glucose 107 mg/dL (74-106); Sodium Level 139 mmol/L (136-145)
== END ==
PROVIDERS: Family Provider Family Medicine; PCP Family Medicine; Referring Provider Family Medicine; Visit Provider Family Medicine
DX: I10 Essential (primary) hypertension (principal)
CPT/HCPCS: 36415; 80048

== ENCOUNTER → 2019-07-08 08:13 | Outpatient (CLI) | payer OTHER, SELFPAY ==
[2019-06-16 09:02] VITALS: BMI 43.0
[2019-07-08 09:53] LABS: Absolute Lymphocyte Count 1.16 X10^3/uL (0.83-4.51); Absolute Neutrophil Count 3.3 X10^3/uL (2.0-7.7); Basophil# 0.04 X10^3/uL; Basophil% 0.7 % (0-1); Eosinophil# 0.22 X10^3/uL; Hematocrit 38.9 % (40-54); Hemoglobin 12.9 g/dL (13.0-16.5); Lymphocyte # 1.16 X10^3/ul (4.0); Lymphocyte % 21.2 % (19-41); Mean Corp Hgb Conc 33.2 g/dL (32-36); Mean Corpuscular Hgb 32.1 pg (27.0-32.0); Mean Corpuscular Volume 96.8 fL (80-94); Mean Platelet Vol. 9.8 fl (6.2-12.0); Monocyte# 0.68 X10^3/uL; Monocyte% 12.5 % (0-10); NRBC Flagged by Analyzer 0 % (0-5); Neutrophil # 3.34 X10^3/uL (2.7-7.7); Neutrophil % 61.2 % (47-70); Platelet Count 221 K/mm3 (150-450); RBC Distribution Width CV 12.3 % (11.6-14.6); RBC Distribution Width SD 43.9 fl (35.1-43.9); Red Blood Count 4.02 M/mm3 (4.6-6.2); White Blood Count 5.5 K/mm3 (4.4-11.0)
[2019-07-08 10:20] LABS: Hemoglobin A1c 5.7 % (4.2-6.3); Vitamin D,25 Hydroxy 41.9 ng/mL (29.95-100.01)
[2019-07-08 10:28] LABS: ALB/GLOB Ratio 1.1 RATIO (0.9-2.4); AST(SGOT) 15 U/L (15-37); Alanine Aminotransfer ALT/SGPT 29 U/L (16-61); Albumin, Serum 3.6 g/dL (3.2-5.0); Alkaline Phosphatase 50 U/L (45-117); Anion Gap 8 (5-15); BUN 20 mg/dL (7-18); CPK Total, Creatine Kinase 178 U/L (39-308); Calcium,Total 8.8 mg/dL (8.5-10.1); Chloride 107 mmol/L (98-107); Cholesterol 144 mg/dL (200); EST Glomerular Filtration Rate 81 mL/min (>60); Est Glom Filt Rate - Afr Amer 98 mL/min (>60); Ferritin 76 ng/mL (26-388); Globulin 3.2 g/dL (2.2-4.2); Glucose 105 mg/dL (74-106); High Density Lipoprotein 33 mg/dL; Magnesium 2.1 mg/dL (1.6-2.6); Potassium 3.8 mmol/L (3.5-5.1); Protein, Total 6.8 g/dL (6.4-8.2); Sodium Level 139 mmol/L (136-145); Thyroid Stim Hormone (TSH) 1.34 uIU/mL (0.358-3.74); Triglycerides 103 mg/dL; Very Low Density Lipoprotein 21 mg/dL (5-40)
== END ==
PROVIDERS: Family Provider Family Medicine; PCP Family Medicine; Referring Provider Family Medicine; Visit Provider Family Medicine
DX: I48.91 Unspecified atrial fibrillation (principal); E66.01 Morbid (severe) obesity due to excess calories; E78.00 Pure hypercholesterolemia, unspecified; E55.9 Vitamin D deficiency, unspecified; R25.2 Cramp and spasm; R73.09 Other abnormal glucose
CPT/HCPCS: 36415; 80053; 80061; 82306; 82550; 82728; 83036; 83735; 84443; 85025

== ENCOUNTER 2019-08-05 08:15 | Outpatient (RCR) | payer OTHER, SELFPAY ==
[2019-07-25 10:21] LABS: International Normalized Ratio 1.1; Prothrombin Time (Protime)PT. 14.1 SECONDS (11.7-14.9)
[2019-07-29 10:39] LABS: International Normalized Ratio 1.2; Prothrombin Time (Protime)PT. 15.2 SECONDS (11.7-14.9)
[2019-08-05 09:20] LABS: International Normalized Ratio 1.6
== END 2019-08-05 18:00 | disposition home or self-care (01) ==
LOC: LAB 08:15
PROVIDERS: Family Provider Family Medicine; PCP Family Medicine; Referring Provider Internal Medicine Cardiovascular Disease; Visit Provider Internal Medicine Cardiovascular Disease
DX: I26.99 Other pulmonary embolism without acute cor pulmonale (principal); I48.0 Paroxysmal atrial fibrillation; Z79.01 Long term (current) use 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s
CPT/HCPCS: 36415; 85610

== ENCOUNTER → 2019-08-10 09:15 | Outpatient (CLI) | payer OTHER, SELFPAY ==
[2019-07-25 12:57] VITALS: BMI 42.2
--- NOTE | 2019-08-10 09:27 | RAD_ITS ---
STUDY: X-RAY - LEFT KNEE REASON FOR EXAM: Male, 59 years old. TECHNIQUE: view(s) of the knee. COMPARISON: None. FINDINGS: There is mild narrowing of the lateral compartment of the left knee joint. Minimal chondrocalcinosis noted in the medial meniscus . The femoropatellar joint is unremarkable. No joint effusion is seen. RAD/Knee 4 or More Views IMPRESSION: Minimal chondrocalcinosis medial meniscus. Narrowing of the lateral compartment of the knee joint in the weightbearing image. Electronically Signed: Ananda Martinez, at 10:18 EST Tel , Service support ,
--- NOTE | 2019-08-10 09:27 | RAD_ITS ---
STUDY: X-RAY - RIGHT KNEE REASON FOR EXAM: Male, 59 years old. TECHNIQUE: view(s) of the knee. COMPARISON: None. FINDINGS: Normal visualized distal femur. Normal visualized proximal tibia and fibula. Normal proximal tibiofibular articulation. Normal medial femorotibial compartment. Normal lateral femorotibial compartment. Normal patellofemoral articulation. The soft tissue structures are unremarkable. No joint effusion. RAD/Knee 4 or More Views IMPRESSION: Normal x-ray examination of the knee. Electronically Signed: Ananda Martinez, at 10:19 EST Tel , Service support ,
--- NOTE | 2019-08-10 09:29 | RAD_ITS ---
STUDY: X-RAY - LUMBAR SPINE REASON FOR EXAM: Male, 59 years old. TECHNIQUE: view(s) of the lumbar spine were obtained. COMPARISON: None FINDINGS: The vertebral bodies are of normal height and alignment. Intervertebral discs are maintained except for mild narrowing at the level of L3-4 and L4-5. There is minimal slippage of L4 on L5. Mild hypertrophic arthropathy noted between L3-4. 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
--- NOTE | 2019-08-10 09:29 | RAD_ITS ---
STUDY: X-RAY - PELVIS AND BILATERAL HIPS REASON FOR EXAM: Male, 59 years old. TECHNIQUE: AP view of the pelvis.? 2 views of the right hip, and 2 views of the left hip were obtained. COMPARISON: None. FINDINGS: There is no abnormality detected in the right hip. Left hip reveals a shortening of the neck of the left femur with some calcification around the hip joint. The hip joint itself is preserved bilaterally. The sacroiliac joints and the iliac bones are unremarkable. Some calcification near the left iliac crest. RAD/Hips B/L min 2 views w/ Pelvis IMPRESSION: The hip joints are preserved. There is shortening of the neck on the left side with calcification. Electronically Signed: Ananda Martinez, at 10:39 EST Tel , Service support ,
--- NOTE | 2019-08-10 09:30 | RAD_ITS ---
STUDY: X-RAY - CERVICAL SPINE REASON FOR EXAM: Male, 59 years old. TECHNIQUE: 7 view(s) of the cervical spine were obtained. COMPARISON: None FINDINGS: Normal anterior atlantoaxial articulation. Normal odontoid process. Normal cervical lordosis. Normal vertebral bodies and endplates. Normal disc space heights. Normal visualized intervertebral neuroforamina. The soft tissue structures are unremarkable. RAD/Cerv Spine 4 or 5 Views IMPRESSION: Normal x-ray examination of the visualized cervical spine. Electronically Signed: Ananda Martinez, at 10:40 EST Tel , Service support ,
== END ==
PROVIDERS: Family Provider Family Medicine; PCP Family Medicine; Referring Provider Family Medicine; Visit Provider Family Medicine
DX: M11.262 Other chondrocalcinosis, left knee (principal); M25.862 Other specified joint disorders, left knee; M25.561 Pain in right knee; M25.552 Pain in left hip; M25.551 Pain in right hip; M46.96 Unspecified inflammatory spondylopathy, lumbar region; M54.2 Cervicalgia
CPT/HCPCS: 72050; 72110; 73521; 73564

== ENCOUNTER 2019-09-13 07:58 | Outpatient (RCR) | payer OTHER, SELFPAY ==
[2019-07-25 12:57] VITALS: BMI 42.2
[2019-08-17 10:59] LABS: International Normalized Ratio 3.7; Prothrombin Time (Protime)PT. 36.7 SECONDS (11.7-14.9)
[2019-08-26 09:14] LABS: International Normalized Ratio 1.5; Prothrombin Time (Protime)PT. 17.6 SECONDS (11.7-14.9)
[2019-09-02 08:22] LABS: International Normalized Ratio 1.5; Prothrombin Time (Protime)PT. 17.5 SECONDS (11.7-14.9)
[2019-09-13 09:31] LABS: International Normalized Ratio 1.7; Prothrombin Time (Protime)PT. 19.5 SECONDS (11.7-14.9)
== END 2019-09-13 18:00 | disposition home or self-care (01) ==
LOC: LAB 07:58
PROVIDERS: Family Provider Family Medicine; PCP Family Medicine; Referring Provider Internal Medicine Cardiovascular Disease; Visit Provider Internal Medicine Cardiovascular Disease
DX: I26.99 Other pulmonary embolism without acute cor pulmonale (principal); I48.0 Paroxysmal atrial fibrillation; Z79.01 Long term (current) use 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s
CPT/HCPCS: 36415; 85610

== ENCOUNTER 2019-09-19 05:06 | Emergency (ER) | payer OTHER, SELFPAY ==
[2019-07-25 12:57] VITALS: BMI 42.2
[2019-09-19 05:07] VITALS: BP 166/76; PULSE 72; RESP 16; TEMP 35.7; O2SAT 98; BMI 41.8
--- NOTE | 2019-09-19 05:30 | CT_ITS ---
STUDY: CT ABDOMEN AND PELVIS WITHOUT CONTRAST REASON FOR EXAM: Male, 59 years old. RIGHT FLANK PAIN X 4 DAYS, BACK PAIN X 3-4 MONTHS, HX PE, KS, A-FIB, HTN RADIATION DOSAGE (If Supplied By Facility): CTDIvol = ( 23.07 ) mGy, DLP = ( 1227.68 ) mGycm TECHNIQUE: Transaxial images were obtained from the dome of the diaphragm to the symphysis pubis without oral contrast, and without intravenous contrast. Sagittal and coronal images were reconstructed. Individualized dose optimization techniques were used for this CT. COMPARISON: None. FINDINGS: The visualized lung bases are unremarkable. The visualized portions of the heart are within normal limits. Normal liver. Normal gallbladder and extrahepatic biliary system. Normal spleen. Normal pancreas. Normal bilateral adrenal glands. Normal right kidney. Normal left kidney. No ureteral calculus or hydronephrosis. Normal visualized stomach. Normal small intestine. There are multiple colonic diverticula consistent with diverticulosis. There is non-visualization of the appendix. Normal abdominal aorta. Normal inferior vena cava. Normal retroperitoneum. Normal urinary bladder. There is a small umbilical hernia containing fat. There are diffuse degenerative changes of the visualized lumbar spine. CT/Abdomen/Pelvis without Cont IMPRESSION: Negative unenhanced CT of the abdomen and pelvis for acute intra-abdominal abnormality. Electronically Signed: Dontrell Naranjo, at 6:11 EST Tel , Service support ,
[2019-09-19 05:35] LABS: Bacteria 0 SEEN /hpf (None Seen); Mucous, Urine 0 SEEN /hpf (<or=2+); Red Blood Cells-Urine 0 SEEN /hpf (0-5); Squamous Epithelial Cells - UA 0 SEEN /hpf (0-5); White Blood Cells 0 SEEN /hpf (0-5)
--- NOTE | 2019-09-19 05:35 | ED.DCSUM_ITS ---
History of Present Illness Chief Complaint: Flank Pain Informant: Patient Onset: Days - 5 days Context: Gradual Onset Current Severity: Moderate Maximum Severity: Moderate Narrative: Patient reports having low back pain for the past couple of months. He was seen by his doctor and is scheduled to see pain management. Over the past 5 days pain is now wrapping around the right lower quadrant and into the suprapubic area. He has had kidney stones in the past but states this does not feel similar. He denies dysuria or hematuria. He did note a small amount of blood in his semen last weekend. Normal bowel movements with no pain on defecation. No fever or chills. He had mild nausea. - Past Medical History (1) jail current use 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 Status: Chronic (2) Back pain Status: Chronic (3) Arthritis Status: Chronic (4) Pulmonary embolism Status: Chronic (5) Afib Status: Chronic (6) CORRINA (obstructive sleep apnea) Status: Chronic (7) Benign essential hypertension Status: Chronic (8) Gastroesophageal reflux disease Status: Chronic (9) Hyperlipidemia Status: Chronic (10) History of appendectomy Status: Chronic (11) Kidney stone Status: Chronic Past Medical History - Allergies and Home Meds Allergies/Adverse Reactions: Allergies apixaban [From Eliquis] Adverse Reaction (Severe, Verified 06/23/19 11:26) Pt formed PE's in spite of taking routinely simvastatin Adverse Reaction (Severe, Verified 06/16/19 09:02) Myalgias doxycycline Adverse Reaction (Intermediate, Verified 06/16/19 09:02) GI upset Primary Care Physician: Hao Membreno MD [Primary Care Provider] - Prior records reviewed: Yes Surgical History: appendectomy, herniorrhaphy Lives: Spouse/ Significant Other Smoking Status: Never smoker - Family History Maternal Family History: Family History (Last Reviewed 07/25/19 @ 12:58 by Jennifer Coulter) Mother CAD (coronary artery disease) Diabetes Hypertension Hyperlipidemia Heart disease Father CVA (cerebral vascular accident) Family History: Reports: Diabetes, Heart Disease, Hypertension, - Paternal Family History: Family History (Last Reviewed 07/25/19 @ 12:58 by Jennifer Coulter) Mother CAD (coronary artery disease) Diabetes Hypertension Hyperlipidemia Heart disease Father CVA (cerebral vascular accident) Family History: Reports: - Review of Systems General: Denies: Chills, Fever Eyes: Denies: Visual changes - bilaterally ENT: Denies: Bilateral ear pain Cardiovascular: Denies: Chest pain Respiratory: Denies: Dyspnea, Cough Gastrointestinal: Reports: Abdominal pain, Nausea. Denies: Vomiting, Diarrhea Genitourinary: Denies: Dysuria, Hematuria Musculoskeletal: Reports: Back pain, Extremity Pain Skin: Denies: Rash Neurological: Denies: Headache Allergy: Denies: Uticaria Physical Exam Vital Signs/Narrative: Vital Signs Temp Pulse Resp BP Pulse Ox 09/19/19 05:07 96.2 F L 72 16 166/76 H 98 Inital Vital Signs reviewed: Yes General: Well nourished, Well developed Head: Normocephalic ENT: Moist mucous membranes Neck: Supple Cardiovascular: Regular rate, Regular rhythm Respiratory: No distress, CTA bilaterally Abdomen: Soft, Tender - Minimal tenderness to the right lower quadrant. No guarding or rebound. No palpable masses.. Negative for: Guarding, Rebound tenderness Back: Nontender - No reproducible tenderness along the midline spine or over the sciatic notch. Extremities: Tenderness - Mild tenderness around the lateral aspect of the right hip and on the lateral right thigh. Skin: Normal color Neurological: Alert, Oriented x3 Psychological: Normal affect Diagnostic/Tx/Re-eval Impressions Abdomen/Pelvis CT 09/19/19 05:30 IMPRESSION: Negative unenhanced CT of the abdomen and pelvis for acute intra-abdominal abnormality. Electronically Signed: Dontrell Naranjo, at 6:11 EST Tel , Service support , 09/19/19 05:30 Abdomen/Pelvis without Cont [CT] Stat Laboratory Results 09/19/19 09/19/19 09/19/19 05:20 05:20 05:20 WBC 9.4 RBC 4.54 L Hgb 14.0 Hct 42.3 MCV 93.2 MCH 30.8 MCHC 33.1 RDW Std Deviation 40.2 RDW Coeff of [place] 11.8 Plt Count 231 MPV 9.5 Immature Gran % (Auto) 0.500 Neut % (Auto) 77.0 H Lymph % (Auto) 14.4 L [place] % (Auto) 7.5 Eos % (Auto) 0.3 Baso % (Auto) 0.3 Absolute Neuts (auto) 7.2 Absolute Lymphs (auto) 1.35 Nucleated RBC % 0 PT 20.1 H INR 1.7 Sodium 140 Potassium 4.0 Chloride 108 H Carbon Dioxide 26.0 Anion Gap 6 BUN 20 H Creatinine 1.05 Estim Creat Clear Calc 78.69 Est GFR (MDRD) Af Amer 92 Est GFR (MDRD) Non-Af 76 BUN/Creatinine Ratio 19.0 Glucose 115 H Calcium 8.4 L Urine Color Urine Clarity Urine pH Ur Specific [place] Urine Protein Urine Glucose (UA) Urine Ketones Urine Occult Blood Urine Nitrite Urine Bilirubin Urine Urobilinogen Ur Leukocyte Esterase Urine RBC Urine WBC Ur Squamous Epith Cells Urine Bacteria Urine Mucus 09/19/19 05:25 WBC RBC Hgb Hct MCV MCH MCHC RDW Std Deviation RDW Coeff of [place] Plt Count MPV Immature Gran % (Auto) Neut % (Auto) Lymph % (Auto) [place] % (Auto) Eos % (Auto) Baso % (Auto) Absolute Neuts (auto) Absolute Lymphs (auto) Nucleated RBC % PT INR Sodium Potassium Chloride Carbon Dioxide Anion Gap BUN Creatinine Estim Creat Clear Calc Est GFR (MDRD) Af Amer Est GFR (MDRD) Non-Af BUN/Creatinine Ratio Glucose Calcium Urine Color Yellow Urine Clarity Clear Urine pH 7.0 Ur Specific [place] 1.010 Urine Protein Negative Urine Glucose (UA) NEGATIVE Urine Ketones Negative Urine Occult Blood Negative Urine Nitrite Negative Urine Bilirubin Negative Urine Urobilinogen Normal Ur Leukocyte Esterase Negative Urine RBC 0 SEEN Urine WBC 0 SEEN Ur Squamous Epith Cells 0 SEEN Urine Bacteria 0 SEEN Urine Mucus 0 SEEN - Medical Decision Making Patient is given morphine and Zofran here for pain. On repeat evaluation is resting comfortably. Test results are discussed with patient and at bedside. At this time I see no evidence of acute intra-abdominal or intrapelvic etiology of his pain. He may be having involvement of higher levels in his lumbar spine causing pain to wrap into the abdomen now rather than down his hip. He is already on prednisone. He will be given a short course of [place] for pain. He will follow-up with pain management on as planned. He was given return instructions. Patient did mention having blood in his semen over the weekend. Urinalysis is clean here. He will be given the phone number for Dr. Cortez to follow-up as needed. ED Disposition - Plan for ED Patient: Disposition: Home or Assisted Living Diagnosis: Flank pain Instructions: FLANK PAIN, Uncertain Cause Prescriptions: Hydrocodone Bitart/Apap 5-325 [[place] 5MG-325MG] 1 tablet PO Q6H PRN PRN 3 Days #10 tablet PRN Reason: Pain Transmission Status: Received by [id number] Referrals: Hao Membreno MD [Primary Care Provider] - Dale Jones MD [STAFF PHYSICIAN] - Keep Cristina appointment Shilo Cortez MD [STAFF PHYSICIAN] - As Needed
[2019-09-19 05:37] LABS: Absolute Lymphocyte Count 1.35 X10^3/uL (0.83-4.51); Absolute Neutrophil Count 7.2 X10^3/uL (2.0-7.7); Basophil# 0.03 X10^3/uL; Basophil% 0.3 % (0-1); Eosinophil# 0.03 X10^3/uL; Eosinophils% 0.3 % (0-5); Hematocrit 42.3 % (40-54); Lymphocyte # 1.35 X10^3/ul (4.0); Lymphocyte % 14.4 % (19-41); Mean Corp Hgb Conc 33.1 g/dL (32-36); Mean Corpuscular Hgb 30.8 pg (27.0-32.0); Mean Corpuscular Volume 93.2 fL (80-94); Mean Platelet Vol. 9.5 fl (6.2-12.0); Monocyte% 7.5 % (0-10); NRBC Flagged by Analyzer 0 % (0-5); Neutrophil # 7.22 X10^3/uL (2.7-7.7); Platelet Count 231 K/mm3 (150-450); RBC Distribution Width CV 11.8 % (11.6-14.6); RBC Distribution Width SD 40.2 fl (35.1-43.9); Red Blood Count 4.54 M/mm3 (4.6-6.2); White Blood Count 9.4 K/mm3 (4.4-11.0)
[2019-09-19] MEDS: 0.9% Normal Saline 1,000 ML 150 ML IV (05:37)
[2019-09-19] MEDS: Morphine 4 MG/ML Syringe IV (05:38)
[2019-09-19] MEDS: Ondansetron 4 MG/2 ML Vial IV (05:40)
[2019-09-19 05:49] LABS: Color, Urine Yellow (Yellow); Glucose, Dipstick NEGATIVE (Normal); Ketone-Dipstick Negative (Negative); Leukocyte Esterase-Dipstick Negative /ul (Negative); Nitrite-Dipstick Negative (Negative); Occult Blood-Urine Negative /ul (Negative); Protein-Dipstick Negative (Negative); Urine Bilirubin Dipstick Negative (Negative); Urine Clarity Clear (Clear); Urine Urobilinogen Normal (Normal)
[2019-09-19 05:50] LABS: Anion Gap 6 (5-15); BUN 20 mg/dL (7-18); Calcium,Total 8.4 mg/dL (8.5-10.1); Chloride 108 mmol/L (98-107); Creatinine, Serum 1.05 mg/dL (0.70-1.30); EST Glomerular Filtration Rate 76 mL/min (>60); Est Glom Filt Rate - Afr Amer 92 mL/min (>60); Estimated Creatinine Clearance 78.69 ml/min; Glucose 115 mg/dL (74-106); Sodium Level 140 mmol/L (136-145)
[2019-09-19 05:51] LABS: International Normalized Ratio 1.7; Prothrombin Time (Protime)PT. 20.1 SECONDS (11.7-14.9)
[2019-09-19 06:30] VITALS: BP 166/76; PULSE 70; RESP 18; O2SAT 100
== END 2019-09-19 06:32 | disposition home or self-care (01) ==
PROVIDERS: Emergency Provider Emergency Medicine; Family Provider Family Medicine; PCP Family Medicine
DX: R10.31 Right lower quadrant pain (principal); E78.5 Hyperlipidemia, unspecified; I10 Essential (primary) hypertension; I48.91 Unspecified atrial fibrillation; K21.9 Gastro-esophageal reflux disease without esophagitis; M19.90 Unspecified osteoarthritis, unspecified site; Z86.711 Personal history of pulmonary embolism; Z87.442 Personal history of urinary calculi; Z79.01 Long term (current) use 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s
CPT/HCPCS: 74176; 80048; 81001; 85025; 85610; 96361; 96374; 96375; 99282; J7030; A4216; J2405

== ENCOUNTER 2019-10-12 05:55 | Outpatient (RCR) | payer OTHER, SELFPAY ==
[2019-07-25 12:57] VITALS: BMI 42.2
[2019-09-28 08:06] LABS: Absolute Lymphocyte Count 2.54 X10^3/uL (0.83-4.51); Basophil# 0.05 X10^3/uL; Basophil% 0.5 % (0-1); Eosinophil# 0.15 X10^3/uL; Eosinophils% 1.5 % (0-5); Hematocrit 44.7 % (40-54); Hemoglobin 14.8 g/dL (13.0-16.5); Lymphocyte # 2.54 X10^3/ul (4.0); Lymphocyte % 26.1 % (19-41); Mean Corp Hgb Conc 33.1 g/dL (32-36); Mean Corpuscular Hgb 31.2 pg (27.0-32.0); Mean Corpuscular Volume 94.1 fL (80-94); Mean Platelet Vol. 9.6 fl (6.2-12.0); Monocyte# 0.92 X10^3/uL; Monocyte% 9.4 % (0-10); NRBC Flagged by Analyzer 0 % (0-5); Neutrophil # 6.02 X10^3/uL (2.7-7.7); Neutrophil % 61.9 % (47-70); Platelet Count 206 K/mm3 (150-450); RBC Distribution Width CV 12.1 % (11.6-14.6); RBC Distribution Width SD 42.1 fl (35.1-43.9); Red Blood Count 4.75 M/mm3 (4.6-6.2); White Blood Count 9.7 K/mm3 (4.4-11.0)
[2019-09-28 08:11] LABS: ALB/GLOB Ratio 1.1 RATIO (0.9-2.4); AST(SGOT) 10 U/L (15-37); Alanine Aminotransfer ALT/SGPT 34 U/L (16-61); Albumin, Serum 3.7 g/dL (3.2-5.0); Alkaline Phosphatase 67 U/L (45-117); Anion Gap 6 (5-15); BUN 33 mg/dL (7-18); BUN/Creat Ratio 28.2 RATIO (10-20); Calcium,Total 9.1 mg/dL (8.5-10.1); Chloride 109 mmol/L (98-107); Creatinine, Serum 1.17 mg/dL (0.70-1.30); EST Glomerular Filtration Rate 67 mL/min (>60); Est Glom Filt Rate - Afr Amer 81 mL/min (>60); Globulin 3.3 g/dL (2.2-4.2); Glucose 99 mg/dL (74-106); Magnesium 2.2 mg/dL (1.6-2.6); Potassium 3.6 mmol/L (3.5-5.1); Sodium Level 140 mmol/L (136-145)
[2019-09-28 08:12] LABS: Hemoglobin A1c 6.2 % (4.2-6.3)
[2019-09-28 08:43] LABS: International Normalized Ratio 1.9; Prothrombin Time (Protime)PT. 21.7 SECONDS (11.7-14.9)
[2019-10-12 07:18] LABS: International Normalized Ratio 2.8; Prothrombin Time (Protime)PT. 29.3 SECONDS (11.7-14.9)
== END 2019-10-12 18:00 | disposition home or self-care (01) ==
LOC: LAB 05:55
PROVIDERS: Family Provider Family Medicine; PCP Family Medicine; Referring Provider Internal Medicine Cardiovascular Disease; Visit Provider Internal Medicine Cardiovascular Disease
DX: I26.99 Other pulmonary embolism without acute cor pulmonale (principal); I48.0 Paroxysmal atrial fibrillation; Z79.01 Long term (current) use 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s
CPT/HCPCS: 36415; 80053; 83036; 83735; 85025; 85610

== ENCOUNTER 2019-10-26 06:02 | Outpatient (RCR) | payer OTHER, SELFPAY ==
[2019-10-26 09:45] LABS: International Normalized Ratio 2.2; Prothrombin Time (Protime)PT. 24.4 SECONDS (11.7-14.9)
== END 2019-10-26 18:00 | disposition home or self-care (01) ==
LOC: LAB 06:02
PROVIDERS: Family Provider Family Medicine; PCP Family Medicine; Referring Provider Internal Medicine Cardiovascular Disease; Visit Provider Internal Medicine Cardiovascular Disease
DX: I26.99 Other pulmonary embolism without acute cor pulmonale (principal); I48.0 Paroxysmal atrial fibrillation; Z79.01 Long term (current) use 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s
CPT/HCPCS: 36415; 85610

== ENCOUNTER 2019-10-31 11:14 | Emergency (ER) | payer OTHER, SELFPAY ==
[2019-10-31 11:16] VITALS: BP 143/75; PULSE 78; RESP 17; TEMP 36.4; O2SAT 97; BMI 40.9
--- NOTE | 2019-10-31 11:31 | EKG12_ITS ---
Test Reason : CP Blood Pressure : / mmHG Vent. Rate : 073 BPM Atrial Rate : 073 BPM P-R Int : 174 ms QRS Dur : 086 ms QT Int : 386 ms P-R-T Axes : 006 002 012 degrees QTc Int : 425 ms Normal sinus rhythm Normal ECG Confirmed by VIKTORIYA SHEA, VALENTINA ([id number]), online content editor JUANITO BONILLA ([id number]) on 11/02/2019 9:04:46 AM Referred By: Confirmed By:VALENTINA SADLER MD
--- NOTE | 2019-10-31 11:38 | ED.DCSUM_ITS ---
History of Present Illness Chief Complaint: Chest Pain Detail of Chief Complaint: Mitten midsternal chest pain and arm discomfort Informant: Patient Onset: Weeks Context: Sudden Onset Timing: Intermittent - Lasting from minutes to as great as 4 to 5 hours on Thursday Quality: Aching Location: Midsternal as well as right and left pectoral region Current Severity: - - Not present Maximum Severity: Moderate Worsened by: Nothing Relieved by: Nothing Associated Symptoms: Slight nausea Narrative: Patient is a 49-year-old male who presents with him and chest pain. He is had several episodes over the past week. The this comfort lasted for 5 hours on Thursday. There are no alleviating exacerbating precipitating factors. He had a cardiac catheterization fracture 2 months ago which was normal. He is on Coumadin secondary to atrial fibrillation and recent diagnosed pulmonary embolus. He denies increased orthopnea. He denies PND. He denies dyspnea on exertion. He denies leg swelling, asymmetry or discoloration. He presently has no discomfort. He denies black or maroon stool. Prior similar symptoms: No Recent Illness/Hospitalization: Yes - Pulmonary embolus - Past Medical History (1) Afib Status: Chronic (2) Anxiety Status: Chronic (3) BMI greater than 40 Status: Chronic (4) Benign essential hypertension Status: Chronic (5) Gastroesophageal reflux disease Status: Chronic (6) History of appendectomy Status: Chronic (7) History of left heart catheterization Status: Chronic Comment: Normal coronaries, EF 75% per Dr. Jones (done @[facility] 10/21/2018) (8) Hyperlipidemia Status: Chronic (9) detention current use 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 Status: Chronic (10) CORRINA (obstructive sleep apnea) Status: Chronic (11) Pulmonary embolism Status: Chronic Past Medical History - Allergies and Home Meds Allergies/Adverse Reactions: Allergies apixaban [From Eliquis] Adverse Reaction (Severe, Verified 10/31/19 11:15) Pt formed PE's in spite of taking routinely simvastatin Adverse Reaction (Severe, Verified 10/31/19 11:15) Myalgias doxycycline Adverse Reaction (Intermediate, Verified 10/31/19 11:15) GI upset Primary Care Physician: Hao Membreno MD [Primary Care Provider] - 3-5 Days if not improving Prior records reviewed: Yes Surgical History: appendectomy, herniorrhaphy Lives: Spouse/ Significant Other Smoking Status: Never smoker Alcohol: Rare Drugs: None - Family History Maternal Family History: Family History (Last Reviewed 07/25/19 @ 12:58 by Jennifer Coulter) Mother CAD (coronary artery disease) Diabetes Hypertension Hyperlipidemia Heart disease Father CVA (cerebral vascular accident) Family History: Reports: Diabetes, Heart Disease, Hypertension, - Paternal Family History: Family History (Last Reviewed 07/25/19 @ 12:58 by Jennifer Coulter) Mother CAD (coronary artery disease) Diabetes Hypertension Hyperlipidemia Heart disease Father CVA (cerebral vascular accident) Family History: Reports: - Review of Systems General: Denies: Chills, Fever, Malaise ENT: Denies: Rhinorrhea, Sore throat Cardiovascular: Reports: Chest pain Respiratory: Reports: Dyspnea on exertion. Denies: Dyspnea, Cough, Orthopnea, Paroxysmal nocturnal dyspnea Gastrointestinal: Reports: Nausea. Denies: Abdominal pain, Vomiting, Diarrhea, Melena, Hematochezia Genitourinary: Denies: Dysuria, Hematuria, Frequency Musculoskeletal: Reports: Back pain - Patient reports episode on Thursday was associated with pain upper back.. Denies: Myalgias, Arthralgias, Neck pain, Swelling, Extremity Pain, -, - Skin: Denies: Rash, Wounds Neurological: Denies: Headache, Weakness, Numbness Endocrine: Denies: Polyuria, Polydipsia Hematologic: Denies: Easy bruising, Easy bleeding Physical Exam Vital Signs/Narrative: Vital Signs Temp Pulse Resp BP Pulse Ox 10/31/19 11:16 97.6 F L 78 17 143/75 H 97 Inital Vital Signs reviewed: Yes General: Well nourished, Well developed, No Acute Distress Head: Normocephalic, Atraumatic Eyes: Perrl, EOMI ENT: Moist mucous membranes, No rhinorrhea Neck: Supple, Nontender, No lymphadenopathy, No JVD Cardiovascular: Regular rate, Regular rhythm, No murmurs, Normal S1, Normal S2 Respiratory: No distress, CTA bilaterally, Chest nontender Abdomen: Soft, Nontender, Nondistended, Normal bowel sounds Back: Nontender, Normal Inspection Extremities: Nontender, No edema Skin: Normal color, No rash, No Trauma. Negative for: Cyanosis, Diaphoresis, Jaundice Neurological: Alert, Oriented x3, Cranial nerves II-XII grossly intact, Normal Strength, Normal Sensation Psychological: Normal affect, Normal Mood Diagnostic/Tx/Re-eval Laboratory Results 10/31/19 10/31/19 10/31/19 11:43 11:43 11:43 WBC 6.9 RBC 4.54 L Hgb 14.3 Hct 42.7 MCV 94.1 H MCH 31.5 MCHC 33.5 RDW Std Deviation 43.4 RDW Coeff of [place] 12.6 Plt Count 217 MPV 9.5 PT 23.4 H INR 2.1 Sodium 142 Potassium 4.0 Chloride 110 H Carbon Dioxide 29.0 Anion Gap 3 L BUN 24 H Creatinine 1.15 Estim Creat Clear Calc 71.84 Est GFR (MDRD) Af Amer 83 Est GFR (MDRD) Non-Af 69 BUN/Creatinine Ratio 20.9 H Glucose 110 H Calcium 9.0 Troponin I < 0.015 Lab results are unremarkable. She was informed that there was a problem with the lab and reason for delay prior to informing him of results. - EKG Initial EKG Interpretation: Sinus Rhythm - Sinus rhythm with a ventricular rate of 73. [place] interval is under 74 ms. QRS duration 86 ms. QT duration 386 ms. The axis is normal. The EKG is normal. - Medical Decision Making AG was obtained to determine if there is any ischemic changes. Because patient had pain for 4 to 5 hours on Thursday troponin was obtained. Basic metabolic panel was obtained to assess renal function in the event imaging with contrast is indicated. CBC was obtained to assess for anemia. If patient's troponin is normal since his EKG is normal with a normal cardiac catheterization 12 months ago 1 can safely state this is not cardiac in etiology. Patient's work-up is unremarkable. Awaiting results of PT/INR. With a normal EKG and normal troponin and a normal 4 months ago 1 can conclude that he did not have a cardiac ischemic event. The cause of his chest pain is unknown. ED Disposition - Plan for ED Patient: Disposition: Home or Assisted Living Diagnosis: Chest pain Instructions: CHEST PAIN, NonCardiac Referrals: Hao Membreno MD [Primary Care Provider] - 3-5 Days if not improving
[2019-10-31 11:55] LABS: Hematocrit 42.7 % (40-54); Hemoglobin 14.3 g/dL (13.0-16.5); Mean Corp Hgb Conc 33.5 g/dL (32-36); Mean Corpuscular Hgb 31.5 pg (27.0-32.0); Mean Corpuscular Volume 94.1 fL (80-94); Mean Platelet Vol. 9.5 fl (6.2-12.0); Platelet Count 217 K/mm3 (150-450); RBC Distribution Width CV 12.6 % (11.6-14.6); RBC Distribution Width SD 43.4 fl (35.1-43.9); Red Blood Count 4.54 M/mm3 (4.6-6.2); White Blood Count 6.9 K/mm3 (4.4-11.0)
[2019-10-31 12:07] LABS: Anion Gap 3 (5-15); BUN 24 mg/dL (7-18); BUN/Creat Ratio 20.9 RATIO (10-20); Chloride 110 mmol/L (98-107); Creatinine, Serum 1.15 mg/dL (0.70-1.30); EST Glomerular Filtration Rate 69 mL/min (>60); Est Glom Filt Rate - Afr Amer 83 mL/min (>60); Estimated Creatinine Clearance 71.84 ml/min; Glucose 110 mg/dL (74-106); Sodium Level 142 mmol/L (136-145)
[2019-10-31 13:28] LABS: International Normalized Ratio 2.1; Prothrombin Time (Protime)PT. 23.4 SECONDS (11.7-14.9)
[2019-10-31 13:50] VITALS: BP 133/70; PULSE 69; RESP 16; O2SAT 98
[2019-10-31 14:49] VITALS: BP 130/70; PULSE 68; RESP 16; O2SAT 99
== END 2019-10-31 14:55 | disposition home or self-care (01) ==
PROVIDERS: Emergency Provider Emergency Medicine; PCP Family Medicine
DX: R07.89 Other chest pain (principal); I48.91 Unspecified atrial fibrillation; I10 Essential (primary) hypertension; K21.9 Gastro-esophageal reflux disease without esophagitis; E78.5 Hyperlipidemia, unspecified; Z86.711 Personal history of pulmonary embolism; Z79.01 Long term (current) use 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s; Z79.82 Long term (current) use of aspirin
CPT/HCPCS: 80048; 84484; 85027; 85610; 93005; 99284; A4216

== ENCOUNTER 2019-12-01 06:00 | Outpatient (RCR) | payer OTHER, SELFPAY ==
[2019-11-01 12:15] VITALS: BMI 40.3
[2019-11-16 06:53] LABS: International Normalized Ratio 1.9; Prothrombin Time (Protime)PT. 21.9 SECONDS (11.7-14.9)
[2019-12-01 09:09] LABS: International Normalized Ratio 2.1; Prothrombin Time (Protime)PT. 23.5 SECONDS (11.7-14.9)
== END 2019-12-01 18:00 | disposition home or self-care (01) ==
LOC: LAB 06:00
PROVIDERS: Family Provider Family Medicine; PCP Family Medicine; Referring Provider Internal Medicine Cardiovascular Disease; Visit Provider Internal Medicine Cardiovascular Disease
DX: I26.99 Other pulmonary embolism without acute cor pulmonale (principal); I48.0 Paroxysmal atrial fibrillation; Z79.01 Long term (current) use 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s
CPT/HCPCS: 36415; 85610

== ENCOUNTER 2019-12-22 05:58 | Outpatient (RCR) | payer OTHER, SELFPAY ==
[2019-11-28 11:37] VITALS: BMI 41.3
[2019-12-22 07:35] LABS: Absolute Lymphocyte Count 1.35 X10^3/uL (0.83-4.51); Absolute Neutrophil Count 3.4 X10^3/uL (2.0-7.7); Basophil# 0.04 X10^3/uL; Basophil% 0.7 % (0-1); Eosinophils% 5.2 % (0-5); Hematocrit 43.4 % (40-54); Hemoglobin 14.1 g/dL (13.0-16.5); Lymphocyte # 1.35 X10^3/ul (4.0); Lymphocyte % 23.5 % (19-41); Mean Corp Hgb Conc 32.5 g/dL (32-36); Mean Corpuscular Hgb 30.9 pg (27.0-32.0); Mean Corpuscular Volume 95.2 fL (80-94); Mean Platelet Vol. 10.7 fl (6.2-12.0); Monocyte# 0.66 X10^3/uL; Monocyte% 11.5 % (0-10); NRBC Flagged by Analyzer 0 % (0-5); Neutrophil # 3.38 X10^3/uL (2.7-7.7); Neutrophil % 58.9 % (47-70); Platelet Count 176 K/mm3 (150-450); RBC Distribution Width CV 12.8 % (11.6-14.6); RBC Distribution Width SD 44.6 fl (35.1-43.9); Red Blood Count 4.56 M/mm3 (4.6-6.2); White Blood Count 5.7 K/mm3 (4.4-11.0)
[2019-12-22 07:49] LABS: Prothrombin Time (Protime)PT. 22.4 SECONDS (11.7-14.9)
[2019-12-22 08:09] LABS: ALB/GLOB Ratio 1.2 RATIO (0.9-2.4); AST(SGOT) 21 U/L (15-37); Alanine Aminotransfer ALT/SGPT 30 U/L (16-61); Albumin, Serum 3.8 g/dL (3.2-5.0); Alkaline Phosphatase 74 U/L (45-117); Anion Gap 7 (5-15); BUN 24 mg/dL (7-18); BUN/Creat Ratio 22.4 RATIO (10-20); Calcium,Total 8.8 mg/dL (8.5-10.1); Chloride 105 mmol/L (98-107); Creatinine, Serum 1.07 mg/dL (0.70-1.30); EST Glomerular Filtration Rate 75 mL/min (>60); Est Glom Filt Rate - Afr Amer 90 mL/min (>60); Globulin 3.3 g/dL (2.2-4.2); Glucose 100 mg/dL (74-106); Magnesium 2.5 mg/dL (1.6-2.6); Potassium 3.9 mmol/L (3.5-5.1); Protein, Total 7.1 g/dL (6.4-8.2); Sodium Level 139 mmol/L (136-145)
[2019-12-22 08:42] LABS: Vitamin D,25 Hydroxy 43.2 ng/mL
[2019-12-22 09:10] LABS: Hemoglobin A1c 5.8 % (4.2-6.3)
== END 2020-01-12 18:00 | disposition home or self-care (01) ==
LOC: LAB 05:58
PROVIDERS: Family Provider Family Medicine; PCP Family Medicine; Referring Provider Internal Medicine Cardiovascular Disease; Visit Provider Internal Medicine Cardiovascular Disease
DX: I26.99 Other pulmonary embolism without acute cor pulmonale (principal); I48.0 Paroxysmal atrial fibrillation; Z79.01 Long term (current) use 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s
CPT/HCPCS: 36415; 80053; 82306; 83036; 83735; 85025; 85610

== ENCOUNTER 2020-01-26 06:11 | Outpatient (RCR) | payer OTHER, SELFPAY ==
[2019-11-28 11:37] VITALS: BMI 41.3
[2020-01-26 08:34] LABS: International Normalized Ratio 2.1; Prothrombin Time (Protime)PT. 22.9 SECONDS (11.7-14.9)
== END 2020-01-26 18:00 | disposition home or self-care (01) ==
LOC: LAB 06:11
PROVIDERS: Family Provider Family Medicine; PCP Family Medicine; Referring Provider Internal Medicine Cardiovascular Disease; Visit Provider Internal Medicine Cardiovascular Disease
DX: I26.99 Other pulmonary embolism without acute cor pulmonale (principal); I48.0 Paroxysmal atrial fibrillation; Z79.01 Long term (current) use 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s
CPT/HCPCS: 36415; 85610

== ENCOUNTER 2020-02-29 06:04 | Outpatient (RCR) | payer OTHER, SELFPAY ==
[2019-11-28 11:37] VITALS: BMI 41.3
[2020-02-29 08:12] LABS: International Normalized Ratio 2.1
== END 2020-02-29 18:00 | disposition home or self-care (01) ==
LOC: LAB 06:04
PROVIDERS: Family Provider Family Medicine; PCP Family Medicine; Referring Provider Internal Medicine Cardiovascular Disease; Visit Provider Internal Medicine Cardiovascular Disease
DX: I26.99 Other pulmonary embolism without acute cor pulmonale (principal); I48.0 Paroxysmal atrial fibrillation; Z79.01 Long term (current) use 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s
CPT/HCPCS: 36415; 85610

== ENCOUNTER → 2020-03-13 16:12 | Outpatient (CLI) | payer OTHER, SELFPAY ==
[2019-11-28 11:37] VITALS: BMI 41.3
--- NOTE | 2020-03-13 16:45 | MRI_ITS ---
STUDY: MRI LUMBAR SPINE WITHOUT CONTRAST REASON FOR EXAM: Male, 59 years old. LBP, RIGHT leg weakness x 6 months TECHNIQUE: Standardized fat and water weighted pulse sequences were obtained in the sagittal and axial planes. COMPARISON: X-ray 08/10/2019 FINDINGS: T12-L1: Normal endplates. Normal disc height, hydration and morphology. Normal bilateral facet joints. Normal central canal and bilateral lateral recesses. Normal bilateral intervertebral neural foramina. Normal lumbar lordosis. There is no substantial scoliosis. Normal conus medullaris that terminates at the T12/L1. L1-2: Normal endplates. Normal disc height, hydration and morphology. Normal bilateral facet joints. Normal central canal and bilateral lateral recesses. Normal bilateral intervertebral neural foramina. L2-3: Normal endplates. Normal disc height, hydration and morphology. Normal bilateral facet joints. Normal central canal and bilateral lateral recesses. Normal bilateral intervertebral neural foramina. L3-4: Mild bilateral facet hypertrophy and moderate ligament flavum hypertrophy. Mild broad disc protrusion produces mild spinal stenosis with mild bilateral lateral recess stenosis and mild bilateral neural foraminal stenosis. L4-5: Severe bilateral facet hypertrophy and mild ligament flavum hypertrophy. 2 mm of anterolisthesis of L4 and L5 with a mild broad disc protrusion produces mild spinal stenosis and moderate bilateral neural foraminal stenosis with abutment of the exiting L4 nerve roots bilaterally. L5-S1: Normal endplates. Normal disc height, hydration and morphology. Normal bilateral facet joints. Normal central canal and bilateral lateral recesses. Normal bilateral intervertebral neural foramina. Normal visualized sacral ala. Normal visualized paraspinous soft tissue structures. MRI/Spine Lumbar (Routine) IMPRESSION: Multilevel degenerative changes, as described above. Electronically Signed: Leon Son MD at 13:09 EDT Tel , Service support ,
== END ==
PROVIDERS: PCP Family Medicine; Referring Provider Anesthesiology Pain Medicine; Visit Provider Anesthesiology Pain Medicine
DX: M54.9 Dorsalgia, unspecified (principal); M62.81 Muscle weakness (generalized)
CPT/HCPCS: 72148

== ENCOUNTER 2020-04-09 05:51 | Outpatient (RCR) | payer OTHER, SELFPAY ==
[2019-11-28 11:37] VITALS: BMI 41.3
[2020-04-09 07:17] LABS: International Normalized Ratio 2.1; Prothrombin Time (Protime)PT. 22.9 SECONDS (11.7-14.9)
== END 2020-04-09 18:00 | disposition home or self-care (01) ==
LOC: LAB 05:51
PROVIDERS: Family Provider Family Medicine; PCP Family Medicine; Referring Provider Internal Medicine Cardiovascular Disease; Visit Provider Internal Medicine Cardiovascular Disease
DX: I26.99 Other pulmonary embolism without acute cor pulmonale (principal); I48.0 Paroxysmal atrial fibrillation; Z79.01 Long term (current) use 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s
CPT/HCPCS: 36415; 85610

== ENCOUNTER 2020-05-08 06:00 | Outpatient (RCR) | payer OTHER, SELFPAY ==
[2019-11-28 11:37] VITALS: BMI 41.3
[2020-05-08 08:04] LABS: Hemoglobin A1c 5.7 % (3.8-5.6)
[2020-05-08 08:08] LABS: ALB/GLOB Ratio 1.1 RATIO (0.9-2.4); AST(SGOT) 19 U/L (15-37); Alanine Aminotransfer ALT/SGPT 34 U/L (16-61); Albumin, Serum 3.6 g/dL (3.2-5.0); Alkaline Phosphatase 64 U/L (45-117); Anion Gap 6 (5-15); BUN 23 mg/dL (7-18); BUN/Creat Ratio 22.8 RATIO (10-20); Chloride 109 mmol/L (98-107); Cholesterol 161 mg/dL (200); Creatinine, Serum 1.01 mg/dL (0.70-1.30); EST Glomerular Filtration Rate 80 mL/min (>60); Est Glom Filt Rate - Afr Amer 96 mL/min (>60); Globulin 3.3 g/dL (2.2-4.2); Glucose 93 mg/dL (74-106); High Density Lipoprotein 45 mg/dL; Magnesium 2.3 mg/dL (1.6-2.6); Potassium 3.8 mmol/L (3.5-5.1); Protein, Total 6.9 g/dL (6.4-8.2); Sodium Level 141 mmol/L (136-145); Triglycerides 95 mg/dL; Very Low Density Lipoprotein 19 mg/dL (5-40)
[2020-05-08 08:22] LABS: International Normalized Ratio 2.3; Prothrombin Time (Protime)PT. 25.2 SECONDS (11.7-14.9)
[2020-05-08 08:44] LABS: Vitamin D,25 Hydroxy 45.6 ng/mL
== END 2020-05-14 18:00 | disposition home or self-care (01) ==
LOC: LAB 06:00
PROVIDERS: Family Provider Family Medicine; PCP Family Medicine; Referring Provider Internal Medicine Cardiovascular Disease; Visit Provider Internal Medicine Cardiovascular Disease
DX: I26.99 Other pulmonary embolism without acute cor pulmonale (principal); I48.0 Paroxysmal atrial fibrillation; E78.00 Pure hypercholesterolemia, unspecified; E55.9 Vitamin D deficiency, unspecified; R73.02 Impaired glucose tolerance (oral); Z79.01 Long term (current) use 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s
CPT/HCPCS: 36415; 80053; 80061; 82306; 83036; 83735; 85610

== ENCOUNTER 2020-06-05 05:56 | Outpatient (RCR) | payer OTHER, SELFPAY ==
[2019-11-28 11:37] VITALS: BMI 41.3
[2020-06-05 07:12] LABS: International Normalized Ratio 2.1; Prothrombin Time (Protime)PT. 23.2 SECONDS (11.7-14.9)
== END 2020-06-05 18:00 | disposition home or self-care (01) ==
LOC: LAB 05:56
PROVIDERS: Family Provider Family Medicine; PCP Family Medicine; Referring Provider Internal Medicine Cardiovascular Disease; Visit Provider Internal Medicine Cardiovascular Disease
DX: I48.0 Paroxysmal atrial fibrillation (principal); I26.99 Other pulmonary embolism without acute cor pulmonale; Z79.01 Long term (current) use 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s
CPT/HCPCS: 36415; 85610

== ENCOUNTER 2020-06-07 11:30 | Outpatient (RCR) | payer OTHER, SELFPAY ==
[2019-11-28 11:37] VITALS: BMI 41.3
--- NOTE | 2020-03-12 19:16 | HP.PTEVAL ---
Patient's Visit Information MIGUE STROUD is a 59 year old M referred to Physical Therapy by Dr. Richard Ordonez MD with a diagnosis of BACK PAIN AND LEG PAIN. Date of Evaluation: 03/12/20 Physical Therapist: Migue Pardo, PT, Cert MDT, OCS - Visit Plan Frequency: 2x /Week Duration: 4 Weeks Plan: REVIEW MRI. PT INTERVENTIONS LUMBAR FLEXION INTIALLY ,PROGRESS GRADED STABILIZATION,MODALTIES FOR PAIN ,POSTURAL EX'S - Subjective This 59 y/o male presents to physical therapy with back and leg pain. Patient has lumbar pain and radicular symptoms may year . But right leg symptoms have been worse .Patient has prior PT . Patient has comorbities recently PE'S and A-FIB about one year. Patient seen DR Jefferson plan for MRI tommorow . Patient MD wants to nerve block . Patient pain located right lateral hip to lateral legs . Also symptoms down left lower leg. Symptoms desribe as sharp pain. Aggravating factors standing,twisting,walking. Alleviating sitting,rest. Symptoms affects sleeping. Patient denies parathesia/tingling. Bowel/bladder-. Coughing/sneezing. Patient pain affects job demnads,housework tasks and ADLS'. Patient symptoms affects QOL. 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 SOCIAL: - Pain Right Back Pain Intensity (Out of 10): 0 Pain Intensity Range: 10 Right Lower Extremity Pain Intensity (Out of 10): 8 Pain Intensity Range: 10 - Objective POSTURE: mild foward posture. GAIT: reciprocal pattern antalgic gait Right side. NEURO:denies parathesia/tingling,reflexes L3-4,L4-5,L5-S1 1/3. SYMMTRIES: align. PALAPTION: tender L-S. LUMBAR ROM: flexion min loss,side glides min/mod loss pain on right,extension min loss. FLEXABILITY: hams mod tight - Special Tests L/S Slump test left side: Negative L/S Slump test right side: Negative L/S Left Straight Leg Raise: Negative L/S Right Straight Leg Raise: Negative Lumbar Standing: Flexion - Mechanical Response: No effect Lumbar Standing: Flexion - Symptoms During Testing: No effect Lumbar Standing: Flexion - Symptoms After Testing: No effect Lumbar Standing: Extension - Mechanical Response: No effect Lumbar Standing: Extension - Symptoms During Testing: No effect Lumbar Standing: Extension - Symptoms After Testing: No effect Lumbar Standing: Right Side Glides - Mechanical Response: No effect Lumbar Standing: Right Side [place] - Symptoms During Testing: Increases Lumbar Standing: Right Side [place] - Symptoms After Testing: Worse Lumbar Standing: Left Side [place] - Mechanical Response: No effect Lumbar Standing: Left Side [place] - Symptoms During Testing: No effect Lumbar Standing: Left Side [place] - Symptoms After Testing: No effect Lumbar Lying: Flexion - Mechanical Response: No effect Lumbar Lying: Flexion - Symptoms During Testing: Decreases Lumbar Lying: Flexion - Symptoms After Testing: Better Lumbar Lying: Extension - Mechanical Response: No effect Lumbar Lying: Extension - Symptoms During Testing: No effect Lumbar Lying: Extension - Symptoms After Testing: No effect - Goals Goal 1:: Patient to be I with HEP. Goal Time Frame: 4-6 Weeks Goal 2:: Patient improve posture for ADL'S Goal Time Frame: 4-6 Weeks Goal 3:: Patient decrease back and leg pain by 50% or > to improve function. Goal Time Frame: 4-6 Weeks Goal 4:: Patient improve standing and walking with less oain with ADLS Goal Time Frame: 4-6 Weeks Goal 5:: Patient improve back owestry score by 5 points or > to improve QOL. Goal Time Frame: 4-6 Weeks - Rehabilitation Potential Physical Therapy Diagnosis: Patient apears to have possible stenosis vs lateral derrangement with syptoms worse standing,walking , better with sitting min back pain worse in in leg. Rehabilitation Potential: Good - Anticipated Interventions Patient/Client Instruction: Educate patient on: Condition, Plan of Care For the Purpose of:: To decrease pain, To increase ROM, To increase oxygenation perfusion, To improve ability to perform ADL's, To increase tolerance to activity/condition/position, To improve ability of physical actions for home/community/work/leisure, To improve health of tissue, To decrease soft tissue restriction, To increase flexibility/ROM, To improve ability to perform tasks related to life management Therapeutic Exercise to Include: Strength training, Body mechanics, Postural training, Flexibilty training, Active ROM, Dynamic Lumbar Stabilization For the Purpose of:: To decrease pain, To increase ROM, To improve muscle performance and motor function, To improve ability to perform ADL's, To increase tolerance to activity/condition/position, To improve ability of physical actions for home/community/work/leisure, To improve health of tissue, To decrease soft tissue restriction, To increase flexibility/ROM, To improve ability to perform tasks related to life management TENS: Yes IF ES: Yes Cryotherapy (ice pack, ice massage): Yes Thermo therapy (hot pack): Yes Ultrasound (thermal/non thermal): Yes For the Purpose of:: To decrease pain, To decrease swelling/inflammation, To improve nutrient delivery to tissue, To increase oxygenation perfusion, To improve gait and locomotor functions, To improve health of tissue Thank you for the opportunity to evaluate your patient. For Medicare and Medicare HMO plans, please review the plan of care and approve it. It will need to be FAXED BACK to us at [phone] for Medicare purposes. For Medicare only, by signing this I certify the plan of care. Please let me know if there are questions or concerns regarding this plan of care. Physician Signature: Date:
--- NOTE | 2020-06-07 12:35 | HP.PTDCSUM ---
It has been my pleasure to treat MIGUE STROUD referred by Dr. Richard Ordonez MD, with the diagnosis of BACK PAIN AND LEG PAIN for a total of 9 visit(s). Discharge Date: 06/07/20 Please see the following information for a summary of their discharge status. Subjective: Doing alot better about 60 % improved. No leg pain . Injections has helped . Able to do job demands and general function Right Back Pain Intensity (Out of 10): 2 Right Lower Extremity Pain Intensity (Out of 10): 0 % Improvement: 65 Objective/Function: POSTURE: MILD FOWARD POSTURE. GAIT: RECIPROCAL PATTERN. MMT: 4/5. LUMBAR ROM: FLEXION WFL,EXTENSION MIN LOSS Goal 1:: Patient to be I with HEP. Goal Progress: Goal Met Goal 2:: Patient improve posture for ADL'S Goal Progress: Goal Met Goal 3:: Patient decrease back and leg pain by 50% or > to improve function. Goal Progress: Goal Met Goal 4:: Patient improve standing and walking with less oain with ADLS Goal Progress: Goal Met Goal 5:: Patient improve back owestry score by 5 points or > to improve QOL. Goal Progress: Goal Met Plan: D/C Discharge Comments: HEP AND GYM If there are questions or concerns regarding this patient's physical therapy, please feel free to call me at [phone]. Thank you for the referral of this patient. Sincerely, Migue Pardo, PT, Cert MDT, OCS
== END 2020-06-07 19:00 | disposition home or self-care (01) ==
LOC: PT 11:30
PROVIDERS: PCP Family Medicine; Referring Provider Anesthesiology Pain Medicine; Visit Provider Anesthesiology Pain Medicine
DX: M54.9 Dorsalgia, unspecified (principal); M79.604 Pain in right leg
CPT/HCPCS: 97014; 97110; 97162; G0283

== ENCOUNTER 2020-07-02 12:48 | Outpatient (RCR) | payer OTHER, SELFPAY ==
[2019-11-28 11:37] VITALS: BMI 41.3
[2020-07-02 13:48] LABS: International Normalized Ratio 1.9; Prothrombin Time (Protime)PT. 21.6 SECONDS (11.7-14.9)
== END 2020-07-02 18:00 | disposition home or self-care (01) ==
LOC: LAB 12:48
PROVIDERS: Family Provider Family Medicine; PCP Family Medicine; Referring Provider Internal Medicine Cardiovascular Disease; Visit Provider Internal Medicine Cardiovascular Disease
DX: I48.0 Paroxysmal atrial fibrillation (principal); I26.99 Other pulmonary embolism without acute cor pulmonale; Z79.01 Long term (current) use 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s
CPT/HCPCS: 36415; 85610

== ENCOUNTER 2020-08-01 05:49 | Outpatient (RCR) | payer OTHER, SELFPAY ==
[2020-07-11 09:59] VITALS: BMI 40.6
[2020-07-18 07:45] LABS: International Normalized Ratio 1.8; Prothrombin Time (Protime)PT. 20.5 SECONDS (11.7-14.9)
[2020-08-01 07:10] LABS: Prothrombin Time (Protime)PT. 22.3 SECONDS (11.7-14.9)
== END 2020-08-01 18:00 | disposition home or self-care (01) ==
LOC: LAB 05:49
PROVIDERS: Family Provider Family Medicine; PCP Family Medicine; Referring Provider Internal Medicine Cardiovascular Disease; Visit Provider Internal Medicine Cardiovascular Disease
DX: I48.0 Paroxysmal atrial fibrillation (principal); I26.99 Other pulmonary embolism without acute cor pulmonale; Z79.01 Long term (current) use 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s
CPT/HCPCS: 36415; 85610

== ENCOUNTER 2020-09-05 06:11 | Outpatient (RCR) | payer OTHER, SELFPAY ==
[2020-07-11 09:59] VITALS: BMI 40.6
[2020-08-21 07:22] LABS: International Normalized Ratio 1.9; Prothrombin Time (Protime)PT. 21.1 SECONDS (11.7-14.9)
[2020-09-05 07:16] LABS: International Normalized Ratio 1.9; Prothrombin Time (Protime)PT. 21.6 SECONDS (11.7-14.9)
== END 2020-09-05 18:00 | disposition home or self-care (01) ==
LOC: LAB 06:11
PROVIDERS: Internal Medicine Cardiovascular Disease; Family Provider Family Medicine; PCP Family Medicine; Referring Provider Internal Medicine Cardiovascular Disease; Visit Provider Internal Medicine Cardiovascular Disease
DX: I48.0 Paroxysmal atrial fibrillation (principal); Z79.01 Long term (current) use 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s
CPT/HCPCS: 36415; 85610

== ENCOUNTER 2020-09-27 05:55 | Outpatient (RCR) | payer OTHER, SELFPAY ==
[2020-07-11 09:59] VITALS: BMI 40.6
[2020-09-27 07:44] LABS: International Normalized Ratio 2.1; Prothrombin Time (Protime)PT. 23.3 SECONDS (11.7-14.9)
== END 2020-09-27 18:00 | disposition home or self-care (01) ==
LOC: LAB 05:55
PROVIDERS: Family Provider Family Medicine; PCP Family Medicine; Referring Provider Internal Medicine Cardiovascular Disease; Visit Provider Internal Medicine Cardiovascular Disease
DX: I48.0 Paroxysmal atrial fibrillation (principal); Z79.01 Long term (current) use 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s
CPT/HCPCS: 36415; 85610

== ENCOUNTER → 2020-10-11 09:49 | Outpatient (CLI) | payer OTHER, SELFPAY ==
[2020-07-11 09:59] VITALS: BMI 40.6
[2020-10-11 10:27] LABS: Absolute Lymphocyte Count 1.21 X10^3/uL (0.83-4.51); Absolute Neutrophil Count 5.4 X10^3/uL (2.0-7.7); Basophil# 0.05 X10^3/uL; Basophil% 0.7 % (0-1); Eosinophil# 0.13 X10^3/uL; Eosinophils% 1.8 % (0-5); Hematocrit 45.4 % (40-54); Hemoglobin 15.1 g/dL (13.0-16.5); Lymphocyte # 1.21 X10^3/ul (4.0); Lymphocyte % 16.5 % (19-41); Mean Corp Hgb Conc 33.3 g/dL (32-36); Mean Corpuscular Hgb 31.5 pg (27.0-32.0); Mean Corpuscular Volume 94.6 fL (80-94); Mean Platelet Vol. 9.9 fl (6.2-12.0); Monocyte# 0.56 X10^3/uL; Monocyte% 7.6 % (0-10); NRBC Flagged by Analyzer 0 % (0-5); Neutrophil # 5.36 X10^3/uL (2.7-7.7); Neutrophil % 73.1 % (47-70); Platelet Count 201 K/mm3 (150-450); RBC Distribution Width CV 12.3 % (11.6-14.6); RBC Distribution Width SD 42.9 fl (35.1-43.9); White Blood Count 7.3 K/mm3 (4.4-11.0)
[2020-10-11 10:45] LABS: Lactic Acid 0.6 mmol/L (0.4-1.9)
[2020-10-11 10:50] LABS: AST(SGOT) 19 U/L (15-37); Alanine Aminotransfer ALT/SGPT 29 U/L (16-61); Albumin, Serum 3.5 g/dL (3.2-5.0); Alkaline Phosphatase 62 U/L (45-117); Anion Gap 6 (5-15); BUN 22 mg/dL (7-18); BUN/Creat Ratio 22.7 RATIO (10-20); Calcium,Total 8.5 mg/dL (8.5-10.1); Chloride 109 mmol/L (98-107); Creatinine, Serum 0.97 mg/dL (0.70-1.30); EST Glomerular Filtration Rate 83 mL/min (>60); Est Glom Filt Rate - Afr Amer 101 mL/min (>60); Globulin 3.6 g/dL (2.2-4.2); Glucose 102 mg/dL (74-106); Potassium 3.9 mmol/L (3.5-5.1); Protein, Total 7.1 g/dL (6.4-8.2); Sodium Level 137 mmol/L (136-145)
== END ==
PROVIDERS: PCP Family Medicine; Referring Provider Family Medicine; Visit Provider Family Medicine
DX: K57.92 Diverticulitis of intestine, part unspecified, without perforation or abscess without bleeding (principal)
CPT/HCPCS: 36415; 80053; 83605; 85025

== ENCOUNTER → 2020-10-11 10:34 | Outpatient (CLI) | payer OTHER, SELFPAY ==
[2020-07-11 09:59] VITALS: BMI 40.6
--- NOTE | 2020-10-11 10:40 | CT_ITS ---
STUDY: CT ABDOMEN AND PELVIS WITH CONTRAST REASON FOR EXAM: Male, 60 years old. LLQ PAIN, HX-DIVERTICULITIS, HTN,SURG-appendectomy,, left inguinal hernia repair, Partial colectomy-d/t bowel herniation RADIATION DOSAGE (If Supplied By Facility): CTDIvol = ( 16.94 ) mGy, DLP = ( 1220.69 ) mGycm TECHNIQUE: Transaxial images were obtained from the dome of the diaphragm to the symphysis pubis with oral contrast. Oral and amp; IV Gastrografin and amp; 100mL Isovue-300 was administered. Sagittal and coronal images were reconstructed. Individualized dose optimization techniques were used for this CT. COMPARISON: Comparison is made with prior examination dated 09/19/2019. FINDINGS: Stable minimal degree of increased markings at the left lung base suggestive of scarring. The visualized portions of the heart are within normal limits. There is decreased attenuation of the liver consistent with steatosis. Normal gallbladder and extrahepatic biliary system. Normal spleen. Normal pancreas. Normal bilateral adrenal glands. Normal right kidney. Normal left kidney. Normal visualized stomach. Normal small intestine. There are multiple colonic diverticula consistent with diverticulosis. The patient is status post appendectomy. Normal abdominal aorta. Normal inferior vena cava. Normal retroperitoneum. Normal urinary bladder. There are prostatic calcifications. There is a small umbilical hernia containing fat. Normal osseous structures. CT/Abdomen/Pelvis WITH Contrast IMPRESSION: Sigmoid diverticulosis. Fatty infiltration of the liver. Electronically Signed: Al Beasley MD at 13:20 EST , Service support ,
== END ==
PROVIDERS: PCP Family Medicine; Referring Provider Family Medicine; Visit Provider Family Medicine
DX: K57.92 Diverticulitis of intestine, part unspecified, without perforation or abscess without bleeding (principal); K57.30 Diverticulosis of large intestine without perforation or abscess without bleeding; K76.0 Fatty (change of) liver, not elsewhere classified
CPT/HCPCS: 74177; Q9967; A4216

== ENCOUNTER 2020-10-23 05:58 | Outpatient (RCR) | payer OTHER, SELFPAY ==
[2020-07-11 09:59] VITALS: BMI 40.6
[2020-10-23 07:10] LABS: International Normalized Ratio 2.3
== END 2020-10-23 18:00 | disposition home or self-care (01) ==
LOC: LAB 05:58
PROVIDERS: Family Provider Family Medicine; PCP Family Medicine; Referring Provider Internal Medicine Cardiovascular Disease; Visit Provider Internal Medicine Cardiovascular Disease
DX: I48.0 Paroxysmal atrial fibrillation (principal); Z79.01 Long term (current) use 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s
CPT/HCPCS: 36415; 85610

== ENCOUNTER 2020-11-13 06:01 | Outpatient (RCR) | payer OTHER, SELFPAY ==
[2020-07-11 09:59] VITALS: BMI 40.6
[2020-11-13 06:42] LABS: Absolute Neutrophil Count 4.1 X10^3/uL (2.0-7.7); Basophil# 0.05 X10^3/uL; Basophil% 0.8 % (0-1); Eosinophil# 0.27 X10^3/uL; Eosinophils% 4.3 % (0-5); Hematocrit 46.9 % (40-54); Hemoglobin 15.1 g/dL (13.0-16.5); Mean Corp Hgb Conc 32.2 g/dL (32-36); Mean Corpuscular Hgb 30.8 pg (27.0-32.0); Mean Corpuscular Volume 95.5 fL (80-94); Mean Platelet Vol. 9.1 fl (6.2-12.0); Monocyte# 0.65 X10^3/uL; Monocyte% 10.3 % (0-10); NRBC Flagged by Analyzer 0 % (0-5); Neutrophil # 4.11 X10^3/uL (2.7-7.7); Neutrophil % 65.3 % (47-70); Platelet Count 198 K/mm3 (150-450); RBC Distribution Width CV 12.7 % (11.6-14.6); RBC Distribution Width SD 45.2 fl (35.1-43.9); Red Blood Count 4.91 M/mm3 (4.6-6.2); White Blood Count 6.3 K/mm3 (4.4-11.0)
[2020-11-13 06:53] LABS: International Normalized Ratio 2.2; Prothrombin Time (Protime)PT. 23.6 SECONDS (11.7-14.9)
[2020-11-13 07:17] LABS: AST(SGOT) 16 U/L (15-37); Alanine Aminotransfer ALT/SGPT 28 U/L (16-61); Albumin, Serum 3.5 g/dL (3.2-5.0); Alkaline Phosphatase 74 U/L (45-117); Anion Gap 7 (5-15); BUN 24 mg/dL (7-18); Calcium,Total 9.3 mg/dL (8.5-10.1); Chloride 111 mmol/L (98-107); Cholesterol 230 mg/dL (200); Creatinine, Serum 1.09 mg/dL (0.70-1.30); EST Glomerular Filtration Rate 73 mL/min (>60); Est Glom Filt Rate - Afr Amer 88 mL/min (>60); Globulin 3.5 g/dL (2.2-4.2); Glucose 104 mg/dL (74-106); High Density Lipoprotein 44 mg/dL; Magnesium 2.2 mg/dL (1.6-2.6); Potassium 3.8 mmol/L (3.5-5.1); Sodium Level 143 mmol/L (136-145); Triglycerides 122 mg/dL; Very Low Density Lipoprotein 24 mg/dL (5-40)
[2020-11-13 08:30] LABS: Vitamin D,25 Hydroxy 36.5 ng/mL
[2020-11-13 08:47] LABS: Hemoglobin A1c 5.5 % (3.8-5.6)
[2020-11-13 16:08] LABS: PSA,Total - Annual Screen 2.19 ng/mL (0.00-4.00)
== END 2020-11-13 18:00 | disposition home or self-care (01) ==
LOC: LAB 06:01
PROVIDERS: Family Provider Family Medicine; PCP Family Medicine; Referring Provider Internal Medicine Cardiovascular Disease; Visit Provider Internal Medicine Cardiovascular Disease
DX: I48.0 Paroxysmal atrial fibrillation (principal); Z79.01 Long term (current) use 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s
CPT/HCPCS: 36415; 80053; 80061; 82306; 83036; 83735; 84153; 85025; 85610; G0103

== ENCOUNTER 2021-01-09 05:58 | Outpatient (RCR) | payer OTHER, SELFPAY ==
[2020-11-13 14:02] VITALS: BMI 38.9
[2020-12-14 07:31] LABS: International Normalized Ratio 1.9; Prothrombin Time (Protime)PT. 21.3 SECONDS (11.7-14.9)
[2020-12-19 07:34] LABS: International Normalized Ratio 1.9; Prothrombin Time (Protime)PT. 21.4 SECONDS (11.7-14.9)
[2020-12-27 08:04] LABS: International Normalized Ratio 1.9; Prothrombin Time (Protime)PT. 20.8 SECONDS (11.7-14.9)
[2021-01-07 06:54] LABS: International Normalized Ratio 2.1
[2021-01-09 08:21] LABS: Prothrombin Time (Protime)PT. 21.9 SECONDS (11.7-14.9)
== END 2021-01-09 18:00 | disposition home or self-care (01) ==
LOC: LAB 05:58
PROVIDERS: Family Provider Family Medicine; PCP Family Medicine; Referring Provider Internal Medicine Cardiovascular Disease; Visit Provider Internal Medicine Cardiovascular Disease
DX: I48.0 Paroxysmal atrial fibrillation (principal); Z79.01 Long term (current) use 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s
CPT/HCPCS: 36415; 85610

== ENCOUNTER 2021-01-28 06:01 | Outpatient (RCR) | payer OTHER, SELFPAY ==
[2021-01-09 09:37] VITALS: BMI 38.9
[2021-01-28 08:13] LABS: International Normalized Ratio 2.2; Prothrombin Time (Protime)PT. 23.8 SECONDS (11.7-14.9)
== END 2021-01-28 18:00 | disposition home or self-care (01) ==
LOC: LAB 06:01
PROVIDERS: Family Provider Family Medicine; PCP Family Medicine; Referring Provider Internal Medicine Cardiovascular Disease; Visit Provider Internal Medicine Cardiovascular Disease
DX: I48.0 Paroxysmal atrial fibrillation (principal); Z79.01 Long term (current) use 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s
CPT/HCPCS: 36415; 85610

== ENCOUNTER 2021-02-18 06:47 | Outpatient (RCR) | payer OTHER, SELFPAY ==
[2021-01-09 09:37] VITALS: BMI 38.9
[2021-02-18 06:53] LABS: Bacteria 0 SEEN /hpf (None Seen); Mucous, Urine 0 SEEN /hpf (<or=2+); Red Blood Cells-Urine 0 SEEN /hpf (0-5); Squamous Epithelial Cells - UA 0 SEEN /hpf (0-5); White Blood Cells 0 SEEN /hpf (0-5)
[2021-02-18 07:22] LABS: Absolute Lymphocyte Count 1.69 X10^3/uL (0.83-4.51); Absolute Neutrophil Count 5.5 X10^3/uL (2.0-7.7); Basophil# 0.04 X10^3/uL; Basophil% 0.5 % (0-1); Eosinophil# 0.18 X10^3/uL; Eosinophils% 2.2 % (0-5); Hematocrit 42.5 % (40-54); Hemoglobin 13.9 g/dL (13.0-16.5); Lymphocyte # 1.69 X10^3/ul (0.83-4.51); Lymphocyte % 20.4 % (19-41); Mean Corp Hgb Conc 32.7 g/dL (32-36); Mean Corpuscular Hgb 31.7 pg (27.0-32.0); Mean Platelet Vol. 9.1 fl (6.2-12.0); Monocyte# 0.86 X10^3/uL; Monocyte% 10.4 % (0-10); NRBC Flagged by Analyzer 0 % (0-5); Neutrophil # 5.46 X10^3/uL (2.7-7.7); Neutrophil % 65.9 % (47-70); Platelet Count 229 K/mm3 (150-450); RBC Distribution Width CV 12.8 % (11.6-14.6); RBC Distribution Width SD 45.8 fl (35.1-43.9); Red Blood Count 4.38 M/mm3 (4.6-6.2); White Blood Count 8.3 K/mm3 (4.4-11.0)
[2021-02-18 07:25] LABS: International Normalized Ratio 2.4; Prothrombin Time (Protime)PT. 25.6 SECONDS (11.7-14.9)
[2021-02-18 07:34] LABS: Color, Urine Yellow (Yellow); Glucose, Dipstick Normal (Normal); Ketone-Dipstick Negative (Negative); Leukocyte Esterase-Dipstick Negative /ul (Negative); Nitrite-Dipstick Negative (Negative); Occult Blood-Urine Negative /ul (Negative); Protein-Dipstick 15 mg/dl (Negative); Specific Gravity, Urine 1.025 (1.002-1.030); Urine Bilirubin Dipstick Negative (Negative); Urine Clarity Clear (Clear); Urine Urobilinogen Normal (Normal)
[2021-02-18 07:49] LABS: AST(SGOT) 16 U/L (15-37); Alanine Aminotransfer ALT/SGPT 25 U/L (16-61); Albumin, Serum 3.5 g/dL (3.2-5.0); Alkaline Phosphatase 65 U/L (45-117); Anion Gap 10 (5-15); BUN 32 mg/dL (7-18); BUN/Creat Ratio 34.1 RATIO (10-20); Calcium,Total 8.6 mg/dL (8.5-10.1); Chloride 107 mmol/L (98-107); Cholesterol 170 mg/dL (200); Creatinine, Serum 0.94 mg/dL (0.70-1.30); EST Glomerular Filtration Rate 86 mL/min (>60); Est Glom Filt Rate - Afr Amer 105 mL/min (>60); Globulin 3.4 g/dL (2.2-4.2); Glucose 99 mg/dL (74-106); High Density Lipoprotein 46 mg/dL; Magnesium 2.4 mg/dL (1.6-2.6); Potassium 3.8 mmol/L (3.5-5.1); Protein, Total 6.9 g/dL (6.4-8.2); Sodium Level 142 mmol/L (136-145); Triglycerides 75 mg/dL; Very Low Density Lipoprotein 15 mg/dL (5-40)
[2021-02-18 07:57] LABS: Vitamin D,25 Hydroxy 52.5 ng/mL
[2021-02-18 08:24] LABS: Hemoglobin A1c 5.6 % (3.8-5.6)
== END 2021-02-18 18:00 | disposition home or self-care (01) ==
LOC: LAB 06:47
PROVIDERS: Family Provider Family Medicine; PCP Family Medicine; Referring Provider Internal Medicine Cardiovascular Disease; Visit Provider Internal Medicine Cardiovascular Disease
DX: I48.0 Paroxysmal atrial fibrillation (principal); Z79.01 Long term (current) use 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s; I10 Essential (primary) hypertension; R73.02 Impaired glucose tolerance (oral); E55.9 Vitamin D deficiency, unspecified; I48.91 Unspecified atrial fibrillation
CPT/HCPCS: 36415; 80053; 80061; 81001; 82306; 83036; 83735; 85025; 85610

== ENCOUNTER 2021-03-21 06:05 | Outpatient (RCR) | payer OTHER, SELFPAY ==
[2021-01-09 09:37] VITALS: BMI 38.9
[2021-03-21 08:19] LABS: International Normalized Ratio 2.2
== END 2021-03-21 18:00 | disposition home or self-care (01) ==
LOC: LAB 06:05
PROVIDERS: Family Provider Family Medicine; PCP Family Medicine; Referring Provider Internal Medicine Cardiovascular Disease; Visit Provider Internal Medicine Cardiovascular Disease
DX: I48.0 Paroxysmal atrial fibrillation (principal); Z79.01 Long term (current) use 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s
CPT/HCPCS: 36415; 85610

== ENCOUNTER 2021-04-19 06:21 | Outpatient (RCR) | payer OTHER, SELFPAY ==
[2021-01-09 09:37] VITALS: BMI 38.9
[2021-04-19 08:14] LABS: International Normalized Ratio 2.1; Prothrombin Time (Protime)PT. 23.2 SECONDS (11.7-14.9)
== END 2021-04-19 18:00 | disposition home or self-care (01) ==
LOC: LAB 06:21
PROVIDERS: Family Provider Family Medicine; PCP Family Medicine; Referring Provider Internal Medicine Cardiovascular Disease; Visit Provider Internal Medicine Cardiovascular Disease
DX: I48.0 Paroxysmal atrial fibrillation (principal); Z79.01 Long term (current) use 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s
CPT/HCPCS: 36415; 85610

== ENCOUNTER 2021-05-17 11:40 | Outpatient (RCR) | payer OTHER, SELFPAY ==
[2021-05-14 23:26] VITALS: BMI 38.9
[2021-05-17 12:35] LABS: International Normalized Ratio 2.6; Prothrombin Time (Protime)PT. 27.4 SECONDS (11.7-14.9)
== END 2021-05-17 18:00 | disposition home or self-care (01) ==
LOC: LAB 11:40
PROVIDERS: Family Provider Family Medicine; PCP Family Medicine; Referring Provider Internal Medicine Cardiovascular Disease; Visit Provider Internal Medicine Cardiovascular Disease
DX: I48.0 Paroxysmal atrial fibrillation (principal); Z79.01 Long term (current) use 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s
CPT/HCPCS: 36415; 85610

== ENCOUNTER 2021-06-19 05:58 | Outpatient (RCR) | payer OTHER, SELFPAY ==
[2021-06-13 21:16] VITALS: BMI 38.9
[2021-06-19 07:16] LABS: Absolute Lymphocyte Count 1.17 X10^3/uL (0.83-4.51); Absolute Neutrophil Count 3.5 X10^3/uL (2.0-7.7); Basophil# 0.03 X10^3/uL; Basophil% 0.6 % (0-1); Eosinophil# 0.17 X10^3/uL; Eosinophils% 3.1 % (0-5); Hemoglobin 13.9 g/dL (13.0-16.5); Lymphocyte # 1.17 X10^3/ul (0.83-4.51); Lymphocyte % 21.6 % (19-41); Mean Corp Hgb Conc 32.3 g/dL (32-36); Mean Corpuscular Hgb 31.3 pg (27.0-32.0); Mean Corpuscular Volume 96.8 fL (80-94); Mean Platelet Vol. 9.4 fl (6.2-12.0); Monocyte# 0.53 X10^3/uL; Monocyte% 9.8 % (0-10); NRBC Flagged by Analyzer 0 % (0-5); Neutrophil % 64.5 % (47-70); Platelet Count 243 K/mm3 (150-450); RBC Distribution Width CV 12.8 % (11.6-14.6); RBC Distribution Width SD 45.3 fl (35.1-43.9); Red Blood Count 4.44 M/mm3 (4.6-6.2); White Blood Count 5.4 K/mm3 (4.4-11.0)
[2021-06-19 07:37] LABS: Hemoglobin A1c 5.5 % (3.8-5.6)
[2021-06-19 08:06] LABS: AST(SGOT) 24 U/L (15-37); Alanine Aminotransfer ALT/SGPT 29 U/L (16-61); Albumin, Serum 3.3 g/dL (3.2-5.0); Alkaline Phosphatase 59 U/L (45-117); Anion Gap 8 (5-15); BUN 20 mg/dL (7-18); BUN/Creat Ratio 22.5 RATIO (10-20); Calcium,Total 8.3 mg/dL (8.5-10.1); Chloride 110 mmol/L (98-107); Cholesterol 149 mg/dL (200); Creatinine, Serum 0.89 mg/dL (0.70-1.30); EST Glomerular Filtration Rate 92 mL/min (>60); Est Glom Filt Rate - Afr Amer 111 mL/min (>60); Globulin 3.4 g/dL (2.2-4.2); Glucose 103 mg/dL (74-106); High Density Lipoprotein 44 mg/dL; Magnesium 2.2 mg/dL (1.6-2.6); Potassium 3.6 mmol/L (3.5-5.1); Protein, Total 6.7 g/dL (6.4-8.2); Sodium Level 141 mmol/L (136-145); Triglycerides 66 mg/dL; Very Low Density Lipoprotein 13 mg/dL (5-40)
[2021-06-19 08:21] LABS: International Normalized Ratio 2.6; Prothrombin Time (Protime)PT. 26.7 SECONDS (11.7-14.9)
[2021-06-19 08:43] LABS: Vitamin D,25 Hydroxy 41.8 ng/mL
== END 2021-07-14 19:47 | disposition home or self-care (01) ==
LOC: LAB 05:58
PROVIDERS: Family Provider Family Medicine; PCP Family Medicine; Referring Provider Internal Medicine Cardiovascular Disease; Visit Provider Internal Medicine Cardiovascular Disease
DX: I48.0 Paroxysmal atrial fibrillation (principal); Z79.01 Long term (current) use 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s; R39.89 Other symptoms and signs involving the genitourinary system; R73.02 Impaired glucose tolerance (oral); E78.00 Pure hypercholesterolemia, unspecified; E55.9 Vitamin D deficiency, unspecified; I10 Essential (primary) hypertension
CPT/HCPCS: 36415; 80053; 80061; 82306; 83036; 83735; 85025; 85610; 87086; 87088; 87186

== ENCOUNTER 2021-08-01 05:51 | Outpatient (RCR) | payer OTHER, SELFPAY ==
[2021-07-14 19:47] VITALS: BMI 38.9
[2021-07-16 08:20] LABS: International Normalized Ratio 1.8; Prothrombin Time (Protime)PT. 20.1 SECONDS (11.7-14.9)
[2021-08-01 08:36] LABS: International Normalized Ratio 2.1; Prothrombin Time (Protime)PT. 22.7 SECONDS (11.7-14.9)
== END 2021-08-13 18:00 | disposition home or self-care (01) ==
LOC: LAB 05:51
PROVIDERS: Family Provider Family Medicine; PCP Family Medicine; Referring Provider Internal Medicine Cardiovascular Disease; Visit Provider Internal Medicine Cardiovascular Disease
DX: I48.0 Paroxysmal atrial fibrillation (principal); Z79.01 Long term (current) use 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s
CPT/HCPCS: 36415; 85610

== ENCOUNTER → 2021-08-01 16:06 | Outpatient (CLI) | payer OTHER, SELFPAY ==
--- NOTE | 2021-08-01 16:07 | MRI_ITS ---
STUDY: MRI LUMBAR SPINE WITHOUT CONTRAST REASON FOR EXAM: Male, 61 years old. Low back pain, right leg pain TECHNIQUE: Standardized fat and water weighted pulse sequences were obtained in the sagittal and axial planes. COMPARISON: MRI lumbar spine without contrast 03/13/2020. FINDINGS: T10-T11, T11-T12 and T12-L1: (Sagittal only). Normal endplates. Normal disc height, hydration and morphology. No ventral extra dural defect. Normal central canal and bilateral intervertebral neural foramina. Normal lumbar lordosis. There is no substantial scoliosis. Normal conus medullaris that terminates at the lower L1 vertebral body level. L1-2: Normal endplates. Normal disc height, hydration and morphology. Normal bilateral facet joints. Normal central canal and bilateral lateral recesses. Normal bilateral intervertebral neural foramina. L2-3: Normal endplates. Mild disc space height narrowing. Mild bilateral degenerative facet arthropathy. Normal central canal and bilateral lateral recesses. Normal bilateral intervertebral foramina. L3-4: Normal endplates. Moderate disc space narrowing. Mild bilateral degenerative facet arthropathy. Mild central canal stenosis with an apical diameter 10 mm. Normal bilateral lateral recesses. Normal bilateral intervertebral foramina. L4-5: Normal endplates. Mild disc space height narrowing. Mild degenerative anterolisthesis of L4 on L5. Pronounced bilateral degenerative facet arthropathy. Moderate central canal stenosis with an AP canal diameter is 7.6 mm. Normal bilateral lateral recesses. Normal right intervertebral neural foramen. Mild stenosis of the left intervertebral neural foramen due to osteophytic encroachment comment from the left L5 superior articular facet. This is unchanged. L5-S1: Normal in place. Normal disc height, hydration and morphology. Mild bilateral degenerative facet arthropathy. Mild central canal stenosis with an apical diameter of 8.1 mm. Normal bilateral lateral recesses. Normal bilateral intervertebral foramina. Normal visualized sacral ala. Normal visualized paraspinous soft tissue structures. MRI/Spine Lumbar (Routine) IMPRESSION: 1. No MRI evidence of lumbar extruded disc fragment. 2. Moderate central canal stenosis at L4-L5 disc space level with an AP canal diameter of 7.6 mm, mild degenerative anterolisthesis of L4 on L5, pronounced bilateral degenerative facet arthropathy and mild stenosis of the left intervertebral foramen. This level is unchanged. 3. Mild central canal stenosis at L5-S1 disc space level with an apical diameter of 8.1 mm. 4. Mild central canal stenosis at L3-L4 disc space level with an AP canal diameter 10 mm. 5. No interval change when compared to 03/13/2020. Electronically Signed: Jeffrey Jameson MD at 11:42 EST , Service support ,
== END ==
PROVIDERS: PCP Family Medicine; Visit Provider Orthopaedic Surgery
DX: M43.16 Spondylolisthesis, lumbar region (principal); M48.061 Spinal stenosis, lumbar region without neurogenic claudication
CPT/HCPCS: 72148

== ENCOUNTER 2021-08-09 09:40 | Outpatient (CLI) | payer OTHER, SELFPAY ==
[2021-08-09] MEDS: 0.9% Saline Lock 10 ML Syringe IV (09:56)
[2021-08-09 09:57] VITALS: BP 135/64; PULSE 71; RESP 16; TEMP 36.4; O2SAT 98; BMI 39.3
[2021-08-09 10:44] VITALS: BP 127/65; PULSE 64; RESP 16; TEMP 36.4; O2SAT 98
[2021-08-09 11:32] VITALS: BP 127/68; PULSE 62; RESP 16; TEMP 36.5; O2SAT 98
== END 2021-08-09 11:44 | disposition home or self-care (01) ==
LOC: MS3OUT 09:40 → MS3 09:41
PROVIDERS: PCP Family Medicine; Referring Provider Nurse Practitioner Adult Health; Visit Provider Nurse Practitioner Adult Health
DX: U07.1 COVID-19 (principal)
CPT/HCPCS: J7050; M0245; Q0245; A4216

== ENCOUNTER 2021-09-04 06:00 | Outpatient (RCR) | payer OTHER, SELFPAY ==
[2021-08-14 03:25] VITALS: BMI 38.9
[2021-09-04 08:49] LABS: International Normalized Ratio 2.3; Prothrombin Time (Protime)PT. 24.8 SECONDS (11.7-14.9)
== END 2021-09-14 18:00 | disposition home or self-care (01) ==
LOC: LAB 06:00
PROVIDERS: Family Provider Family Medicine; PCP Family Medicine; Referring Provider Internal Medicine Cardiovascular Disease; Visit Provider Internal Medicine Cardiovascular Disease
DX: I48.0 Paroxysmal atrial fibrillation (principal); Z79.01 Long term (current) use 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s
CPT/HCPCS: 36415; 85610

== ENCOUNTER 2021-10-04 05:57 | Outpatient (RCR) | payer OTHER, SELFPAY ==
[2021-09-15 04:24] VITALS: BMI 38.9
[2021-10-04 08:37] LABS: International Normalized Ratio 2.1; Prothrombin Time (Protime)PT. 23.1 SECONDS (11.7-14.9)
== END 2021-10-14 18:00 | disposition home or self-care (01) ==
LOC: LAB 05:57
PROVIDERS: Family Provider Family Medicine; PCP Family Medicine; Referring Provider Internal Medicine Cardiovascular Disease; Visit Provider Internal Medicine Cardiovascular Disease
DX: I48.0 Paroxysmal atrial fibrillation (principal); Z79.01 Long term (current) use 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s
CPT/HCPCS: 36415; 85610

== ENCOUNTER 2021-11-04 06:09 | Outpatient (RCR) | payer OTHER, SELFPAY ==
[2021-10-15 01:15] VITALS: BMI 38.9
[2021-11-04 07:05] LABS: Prothrombin Time (Protime)PT. 21.6 SECONDS (11.7-14.9)
== END 2021-11-04 23:59 | disposition home or self-care (01) ==
LOC: LAB 06:09
PROVIDERS: Family Provider Family Medicine; PCP Family Medicine; Referring Provider Internal Medicine Cardiovascular Disease; Visit Provider Internal Medicine Cardiovascular Disease
DX: I48.0 Paroxysmal atrial fibrillation (principal); Z79.01 Long term (current) use 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s
CPT/HCPCS: 36415; 85610

== ENCOUNTER 2021-12-11 06:00 | Outpatient (RCR) | payer OTHER, SELFPAY ==
[2021-11-12 09:45] VITALS: BMI 38.9
[2021-12-11 10:48] LABS: International Normalized Ratio 1.9
== END 2021-12-12 18:00 | disposition home or self-care (01) ==
LOC: LAB 06:00
PROVIDERS: Family Provider Family Medicine; PCP Family Medicine; Referring Provider Internal Medicine Cardiovascular Disease; Visit Provider Internal Medicine Cardiovascular Disease
DX: I48.0 Paroxysmal atrial fibrillation (principal); Z79.01 Long term (current) use 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s
CPT/HCPCS: 36415; 85610

== ENCOUNTER 2022-01-08 06:04 | Outpatient (RCR) | payer OTHER, SELFPAY ==
[2021-12-13 02:32] VITALS: BMI 38.9
[2021-12-18 07:33] LABS: Absolute Lymphocyte Count 1.67 X10^3/uL (0.83-4.51); Absolute Neutrophil Count 4.7 X10^3/uL (2.0-7.7); Basophil# 0.07 X10^3/uL; Basophil% 0.9 % (0-1); Eosinophil# 0.45 X10^3/uL; Eosinophils% 5.9 % (0-5); Hemoglobin 13.8 g/dL (13.0-16.5); Lymphocyte # 1.67 X10^3/ul (0.83-4.51); Lymphocyte % 21.9 % (19-41); Mean Corp Hgb Conc 32.9 g/dL (32-36); Mean Corpuscular Hgb 31.2 pg (27.0-32.0); Mean Corpuscular Volume 94.8 fL (80-94); Mean Platelet Vol. 9.5 fl (6.2-12.0); Monocyte# 0.77 X10^3/uL; Monocyte% 10.1 % (0-10); NRBC Flagged by Analyzer 0 % (0-5); Neutrophil # 4.66 X10^3/uL (2.7-7.7); Neutrophil % 60.9 % (47-70); Platelet Count 278 K/mm3 (150-450); RBC Distribution Width CV 12.1 % (11.6-14.6); Red Blood Count 4.43 M/mm3 (4.6-6.2); White Blood Count 7.6 K/mm3 (4.4-11.0)
[2021-12-18 07:51] LABS: Hemoglobin A1c 5.5 % (3.8-5.6)
[2021-12-18 08:13] LABS: Vitamin D,25 Hydroxy 48.7 ng/mL
[2021-12-18 08:14] LABS: AST(SGOT) 19 U/L (15-37); Alanine Aminotransfer ALT/SGPT 30 U/L (16-61); Albumin, Serum 3.6 g/dL (3.2-5.0); Alkaline Phosphatase 56 U/L (45-117); Anion Gap 4 (5-15); BUN 25 mg/dL (7-18); BUN/Creat Ratio 26.5 RATIO (10-20); Calcium,Total 8.3 mg/dL (8.5-10.1); Chloride 108 mmol/L (98-107); Cholesterol 160 mg/dL (200); Creatinine, Serum 0.94 mg/dL (0.70-1.30); EST Glomerular Filtration Rate 85 mL/min (>60); Est Glom Filt Rate - Afr Amer 103 mL/min (>60); Globulin 3.5 g/dL (2.2-4.2); Glucose 101 mg/dL (74-106); High Density Lipoprotein 36 mg/dL; Magnesium 2.3 mg/dL (1.6-2.6); Potassium 3.9 mmol/L (3.5-5.1); Protein, Total 7.1 g/dL (6.4-8.2); Sodium Level 138 mmol/L (136-145); Thyroid Stim Hormone (TSH) 2.04 uIU/mL (0.358-3.74); Triglycerides 101 mg/dL; Very Low Density Lipoprotein 20 mg/dL (5-40)
[2021-12-18 09:16] LABS: International Normalized Ratio 1.9; Prothrombin Time (Protime)PT. 20.9 SECONDS (11.7-14.9)
[2022-01-08 07:26] LABS: International Normalized Ratio 1.9; Prothrombin Time (Protime)PT. 21.4 SECONDS (11.7-14.9)
== END 2022-01-08 18:00 | disposition home or self-care (01) ==
LOC: LAB 06:04
PROVIDERS: Family Provider Family Medicine; PCP Family Medicine; Referring Provider Internal Medicine Cardiovascular Disease; Visit Provider Internal Medicine Cardiovascular Disease
DX: I48.0 Paroxysmal atrial fibrillation (principal); Z79.01 Long term (current) use 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s
CPT/HCPCS: 36415; 80053; 80061; 82306; 83036; 83735; 84443; 85025; 85610

== ENCOUNTER 2022-01-21 06:04 | Outpatient (RCR) | payer OTHER, SELFPAY ==
[2022-01-12 03:27] VITALS: BMI 38.9
[2022-01-21 06:54] LABS: International Normalized Ratio 2.2; Prothrombin Time (Protime)PT. 24.3 SECONDS (11.7-14.9)
== END 2022-01-21 18:00 | disposition home or self-care (01) ==
LOC: LAB 06:04
PROVIDERS: Family Provider Family Medicine; PCP Family Medicine; Referring Provider Internal Medicine Cardiovascular Disease; Visit Provider Internal Medicine Cardiovascular Disease
DX: I48.0 Paroxysmal atrial fibrillation (principal); Z79.01 Long term (current) use 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s
CPT/HCPCS: 36415; 85610

== ENCOUNTER 2022-01-21 08:34 | Emergency (ER) | payer OTHER, SELFPAY ==
[2022-01-21 08:35] VITALS: BP 169/70; PULSE 76; RESP 16; TEMP 36.4; O2SAT 97; BMI 41.3
--- NOTE | 2022-01-21 08:45 | EKG12_ITS ---
Test Reason : CP Blood Pressure : / mmHG Vent. Rate : 074 BPM Atrial Rate : 074 BPM P-R Int : 174 ms QRS Dur : 082 ms QT Int : 386 ms P-R-T Axes : 007 -02 013 degrees QTc Int : 428 ms Normal sinus rhythm Normal ECG Confirmed by BANG CHAHAL MD ([id number]), script editor JUANITO BONILLA ([id number]) on 01/22/2022 12:51:14 PM Referred By: TL Confirmed By:BANG CHAHAL MD
--- NOTE | 2022-01-21 08:50 | RAD_ITS ---
STUDY: X-RAY CHEST REASON FOR EXAM: Male, 61 years old. Chest pain TECHNIQUE: Single AP portable view of the chest. COMPARISON: Comparison is made with prior study 06/16/2019. FINDINGS: EKG electrodes are seen. Stable minimal increased markings at the lung bases suggestive of linear scarring. There is no demonstrated pleural abnormality. Normal size heart. Normal mediastinum and rubina. Normal visualized pulmonary arteries. There is atherosclerotic tortuosity of the aortic arch and descending thoracic aorta. Normal visualized thoracic spine. Normal visualized ribs, clavicles, and shoulders. There is no demonstrated abnormality of the visualized soft tissue structures of the upper abdomen. RAD/Chest 1 View (Portable) IMPRESSION: No acute abnormality is seen. Stable mild linear scarring at the lung bases. Electronically Signed: Al Beasley MD at 9:18 EDT ,
--- NOTE | 2022-01-21 08:54 | ED.VIS.CHEST ---
HPI History of Present Illness Chief Complaint: Chest Pain Informant: patient Narrative Narrative: Chest pain at rest going to his back. No pain arms neck. No dyspnea nausea diaphoresis. Ate breakfast as indigestion took Rolaids. History of paroxysmal A. fib and PE on warfarin. INR checked today. Followed by Dr. Harris. Heart cath 3 to 4 years ago here states it was clean. Hypertension hypercholesterolemia. Denies diabetes. Pain currently a 4. INR from today was 2.2 in the system. Prior Similar Symptoms: Yes CVD Risk Factors: Positive for Hypertension and Hypercholesterolemia; Negative for Family History 1' </=55 [facility] Medical History (Updated 01/21/22 @ 12:[address] Aneudy Mir DO) Abdominal pain Afib Arthritis Asthma Benign essential hypertension Dyspnea on exertion Edema Gastroesophageal reflux disease Hyperlipidemia senior living current use 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 CORRINA (obstructive sleep apnea) Pulmonary embolism (06/10/18) Weight gain with edema Home Medications cholecalciferol (vitamin D3) 2,000 unit PO DAILY 06/16/19 [History Last Taken 06/16/19] furosemide 40 mg tablet 40 mg PO DAILY 06/16/19 [History Last Taken 06/16/19] benazepril 20 mg tablet 20 mg PO DAILY tab 01/09/21 [History Last Taken Unknown] sertraline 50 mg tablet 50 mg PO DAILY tab 01/09/21 [History Last Taken Unknown] diltiazem HCl 300 mg capsule,extended release 24 hr 300 mg PO DAILY #90 cap 05/06/21 [Rx Last Taken Unknown] cyclobenzaprine 5 mg tablet 5 mg PO TID PRN tab 10/25/21 [History Last Taken Unknown] omeprazole 20 mg capsule,delayed release 20 mg PO Q OTHER DAY PRN cap 10/25/21 [History Last Taken Unknown] aspirin 81 mg tablet,delayed release 81 mg PO DAILY #90 tab 11/20/21 [Rx Last Taken Unknown] rosuvastatin 5 mg tablet 5 mg PO Q OTHER DAY #45 tab 01/06/22 [Rx Last Taken Unknown] omeprazole 40 mg PO DAILY #30 cap 01/21/22 [Rx Last Taken Unknown] warfarin 8 mg PO SUMOTUTHFRSA 01/21/22 [History Last Taken Unknown] warfarin 10 mg PO WE 01/21/22 [History Last Taken Unknown] Allergy/AdvReac Type Severity Reaction Status Date / Time apixaban [From Eliquis] AdvReac Severe Pt formed Verified 01/21/22 08:35 PE's in spite of taking routinely simvastatin AdvReac Severe Myalgias Verified 01/21/22 08:35 doxycycline AdvReac Intermediate GI upset Verified 01/21/22 08:35 Family History Mother CAD (coronary artery disease) Diabetes Hypertension Hyperlipidemia Heart disease Father CVA (cerebral vascular accident) Surgical History History of appendectomy History of colonoscopy (~06/2016) History of hip surgery History of left heart catheterization (10/21/18) History of left inguinal hernia repair Social History Smoking Status: Never smoker alcohol intake: never substance use type: does not use caffeine: Yes Type: carbonated beverages Number of servings: 1 ROS ROS ED Constitutional Constitutional ED: Denies chills, fever(s) or sweats Eyes Eyes: Denies change in vision ENT ENT ED: Denies dysphagia or sore throat Cardiovascular Cardiovascular: Reports chest pain; Denies leg edema, palpitations or racing heartbeat Respiratory/Chest Respiratory/Chest: Denies cough, dyspnea or dyspnea on exertion Gastrointestinal Gastrointestinal: Denies abdominal pain, diarrhea, nausea or vomiting Genitourinary Genitourinary ED: Denies dysuria, hematuria or urinary frequency Musculoskeletal Musculoskeletal: Denies back pain, extremity pain or neck pain Integumentary Denies rash or wounds Neurologic Neurologic: Denies headache(s), paresthesias or weakness EXAM Physical Exam Const Vital Signs: 01/21/22 08:35 01/21/22 08:37 01/21/22 09:54 Temperature 97.6 F L Temperature Source Oral Pulse Rate 76 64 Respiratory Rate 16 17 Respiratory Effort Normal Non-Labored Blood Pressure 169/70 H 146/79 H Blood Pressure Mean 103 101 Pulse Ox 97 97 Oxygen Delivery Method Room Air Room Air 01/21/22 10:06 01/21/22 11:59 01/21/22 12:26 Temperature Temperature Source Pulse Rate 73 69 70 Respiratory Rate 19 H 19 H 16 Respiratory Effort Blood Pressure 151/72 H 149/81 H 147/82 H Blood Pressure Mean 98 103 103 Pulse Ox 96 98 95 Oxygen Delivery Method Room Air Room Air Room Air Positive well nourished and well developed General Appearance ED: well developed and NAD HEENT Reports moist mucous membranes normocephalic and atraumatic Eyes PERRL, EOMs intact bilaterally and conjunctivae normal General Eye ED: Yes normal appearance of both eyes Neck no lymphadenopathy and supple General: Negative for tenderness Chest Wall Chest: Negative for tenderness Resp normal respiratory effort and normal air movement Effort and Inspection: symmetric chest movement; Negative for respiratory distress Cardio regular rate, regular rhythm and no murmurs Peripheral Pulses: pulses 2+ throughout GI normal to inspection, nondistended, normoactive bowel sounds and non-tender Palpation: Negative for guarding or rebound tenderness present Back/Spine no CVA tenderness and no thoracic nor lumbar tenderness Extremity normal to inspection General Extremety ED: Negative for edema or tenderness General Extremity: Negative for edema Neuro oriented x3 and no sensory deficits noted Sensorium / Orientation: awake and alert Skin no rashes or lesions noted and no wounds Heart Score History: Slightly/Non-Suspicious ECG: Normal Age: >45 - <65 years Risk Factors: >/= 3 Risk Factors or History of CAD Troponin: </= Normal Limit Score: 3 MDM MDM MDM Narrative Medical decision making narrative: Patient EKG with no acute findings. INR in the lab review today was 2.2. Cardiac work-up negative with troponins x2. Chest x-ray 1 view reviewed by myself and read by radiology notes no acute process. GI cocktail added had some transient relief of symptoms. Heart score is a 3. He states he was on omeprazole in the past. He was restarted on this given GI follow-up. 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 Return precautions. With INR being therapeutic lower likelihood of PE. All questions were answered. Lab Data Attestation: I reviewed the patient's lab results. Labs: Laboratory Results - last 24 hr 01/21/22 01/21/22 01/21/22 08:45 08:45 10:54 WBC 6.8 RBC 4.43 L Hgb 14.1 Hct 42.7 MCV 96.4 H MCH 31.8 MCHC 33.0 RDW Std Deviation 44.5 H RDW Coeff of [place] 12.5 Plt Count 221 MPV 9.8 Immature Gran % (Auto) 0.300 Neut % (Auto) 66.6 Lymph % (Auto) 19.0 [place] % (Auto) 9.4 Eos % (Auto) 3.8 Baso % (Auto) 0.9 Absolute Neuts (auto) 4.5 Absolute Lymphs (auto) 1.29 Nucleated RBC % 0 Sodium 143 Potassium 3.7 Chloride 107 Carbon Dioxide 28.0 Anion Gap 8 BUN 23 H Creatinine 1.08 Estim Creat Clear Calc 74.56 Est GFR (MDRD) Af Amer 89 Est GFR (MDRD) Non-Af 73 BUN/Creatinine Ratio 21.3 H Glucose 124 H Calcium 9.0 Troponin I High Sens 8 8 Radiography Chest X-Ray - ED: Read by ED Physician and Read by Radiologist Diagnostic Testing: Clinical Impression(s) from Imaging Studies Chest X-Ray 01/21/22 08:50 IMPRESSION: No acute abnormality is seen. Stable mild linear scarring at the lung bases. Electronically Signed: Al Beasley MD at 9:18 EDT , EKG Initial EKG: Attestation: I personally reviewed and interpreted this EKG as follows: Comments: Sinus rate of 74, no ST or T wave changes. Discharge Plan Triage Chief Complaint: Chest Pain ED Provider: Aneudy Mir Dx/Rx/DC Orders Clinical Impression: Chest pain Instructions: ED Chest Pain, Uncertain Cause Prescriptions: New omeprazole 40 mg capsule,delayed release(DR/EC) 40 mg PO DAILY Qty: 30 RF: 0 No Action benazepril 20 mg tablet 20 mg PO DAILY RF: 0 sertraline 50 mg tablet 50 mg PO DAILY RF: 0 cyclobenzaprine 5 mg tablet 5 mg PO TID PRNRF: 0 cholecalciferol (vitamin D3) 2,000 UNIT capsule 2,000 unit PO DAILY RF: 0 omeprazole 20 mg capsule,delayed release(DR/EC) 20 mg PO Q OTHER DAY PRN (Reason: GERD) RF: 0 warfarin 5 mg tablet 10 mg PO WE RF: 0 warfarin 1 mg tablet 8 mg PO SUMOTUTHFRSA RF: 0 furosemide 40 mg tablet 40 mg PO DAILY RF: 0 diltiazem HCl 300 mg capsule,extended release 24hr 300 mg PO DAILY Qty: 90 RF: 3 aspirin [Enteric Coated Aspirin] 81 mg tablet,delayed release (DR/EC) 81 mg PO DAILY Qty: 90 RF: 3 rosuvastatin [Crestor] 5 mg tablet 5 mg PO Q OTHER DAY Qty: 45 RF: 3 Primary Care Provider: Hao Membreno Referrals: Hao Membreno MD [Primary Care Provider] - Ricki Harris MD [STAFF PHYSICIAN] - 3-5 Days Friend,DO Sree [STAFF PHYSICIAN] - 1 Week Activity Restrictions/Additional Instructions: Your cardiac work-up negative today. Your INR is 2.2 from outpatient labs today. Take omeprazole as prescribed. Follow-up with GI and your engineering and development director. Disposition Disposition: Home, Self Care Discharge Date/Time: 01/21/22 12:29
[2022-01-21 08:59] LABS: Absolute Lymphocyte Count 1.29 X10^3/uL (0.83-4.51); Absolute Neutrophil Count 4.5 X10^3/uL (2.0-7.7); Basophil# 0.06 X10^3/uL; Basophil% 0.9 % (0-1); Eosinophil# 0.26 X10^3/uL; Eosinophils% 3.8 % (0-5); Hematocrit 42.7 % (40-54); Hemoglobin 14.1 g/dL (13.0-16.5); Lymphocyte # 1.29 X10^3/ul (0.83-4.51); Mean Corpuscular Hgb 31.8 pg (27.0-32.0); Mean Corpuscular Volume 96.4 fL (80-94); Mean Platelet Vol. 9.8 fl (6.2-12.0); Monocyte# 0.64 X10^3/uL; Monocyte% 9.4 % (0-10); NRBC Flagged by Analyzer 0 % (0-5); Neutrophil # 4.53 X10^3/uL (2.7-7.7); Neutrophil % 66.6 % (47-70); Platelet Count 221 K/mm3 (150-450); RBC Distribution Width CV 12.5 % (11.6-14.6); RBC Distribution Width SD 44.5 fl (35.1-43.9); Red Blood Count 4.43 M/mm3 (4.6-6.2); White Blood Count 6.8 K/mm3 (4.4-11.0)
[2022-01-21 09:19] LABS: Anion Gap 8 (5-15); BUN 23 mg/dL (7-18); BUN/Creat Ratio 21.3 RATIO (10-20); Chloride 107 mmol/L (98-107); Creatinine, Serum 1.08 mg/dL (0.70-1.30); EST Glomerular Filtration Rate 73 mL/min (>60); Est Glom Filt Rate - Afr Amer 89 mL/min (>60); Estimated Creatinine Clearance 74.56 ml/min; Glucose 124 mg/dL (74-106); Potassium 3.7 mmol/L (3.5-5.1); Sodium Level 143 mmol/L (136-145); Troponin-I HS (w/2H Reflex) 8 pg/mL (3.0-78.0)
[2022-01-21 09:54] VITALS: BP 146/79; PULSE 64; RESP 17; O2SAT 97
[2022-01-21 10:06] VITALS: BP 151/72; PULSE 73; RESP 19; O2SAT 96
[2022-01-21] MEDS: Mag Hydrox/Al Hydrox/Simeth 30 ML UDC PO (10:06)
[2022-01-21 10:54] LABS: Reflex Troponin-HS? (from REC) Y
[2022-01-21 11:20] LABS: Troponin-I HS 8 pg/mL (3.0-78.0)
[2022-01-21 11:59] VITALS: BP 149/81; PULSE 69; RESP 19; O2SAT 98
[2022-01-21 12:26] VITALS: BP 147/82; PULSE 70; RESP 16; O2SAT 95
== END 2022-01-21 12:29 | disposition home or self-care (01) ==
PROVIDERS: Emergency Provider Emergency Medicine; PCP Family Medicine; Visit Provider Emergency Medicine
DX: R07.9 Chest pain, unspecified (principal); I48.0 Paroxysmal atrial fibrillation; E78.00 Pure hypercholesterolemia, unspecified; I10 Essential (primary) hypertension; K21.9 Gastro-esophageal reflux disease without esophagitis; Z79.01 Long term (current) use 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s; Z79.899 Other long term (current) drug therapy; Z86.711 Personal history of pulmonary embolism; Z82.49 Family history of ischemic heart disease and other diseases of the circulatory system
CPT/HCPCS: 36415; 71045; 80048; 84484; 85025; 85610; 93005; 99284; A4216

== ENCOUNTER 2022-02-19 05:59 | Outpatient (RCR) | payer OTHER, SELFPAY ==
[2022-02-11 20:46] VITALS: BMI 38.9
[2022-02-19 07:18] LABS: International Normalized Ratio 2.1; Prothrombin Time (Protime)PT. 23.5 SECONDS (11.7-14.9)
== END 2022-02-19 23:59 | disposition home or self-care (01) ==
LOC: LAB 05:59
PROVIDERS: Family Provider Family Medicine; PCP Family Medicine; Referring Provider Internal Medicine Cardiovascular Disease; Visit Provider Internal Medicine Cardiovascular Disease
DX: I48.0 Paroxysmal atrial fibrillation (principal); Z79.01 Long term (current) use 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s
CPT/HCPCS: 36415; 85610

== ENCOUNTER 2022-03-21 06:08 | Outpatient (RCR) | payer OTHER, SELFPAY ==
[2022-03-14 07:05] VITALS: BMI 38.9
[2022-03-21 07:24] LABS: Absolute Lymphocyte Count 1.31 X10^3/uL (0.83-4.51); Absolute Neutrophil Count 3.7 X10^3/uL (2.0-7.7); Basophil# 0.06 X10^3/uL; Eosinophil# 0.46 X10^3/uL; Eosinophils% 7.5 % (0-5); Hematocrit 42.1 % (40-54); Hemoglobin 13.7 g/dL (13.0-16.5); Lymphocyte # 1.31 X10^3/ul (0.83-4.51); Lymphocyte % 21.3 % (19-41); Mean Corp Hgb Conc 32.5 g/dL (32-36); Mean Corpuscular Hgb 31.6 pg (27.0-32.0); Mean Corpuscular Volume 97.2 fL (80-94); Monocyte# 0.64 X10^3/uL; Monocyte% 10.4 % (0-10); NRBC Flagged by Analyzer 0 % (0-5); Neutrophil # 3.65 X10^3/uL (2.7-7.7); Neutrophil % 59.3 % (47-70); Platelet Count 226 K/mm3 (150-450); RBC Distribution Width CV 12.9 % (11.6-14.6); RBC Distribution Width SD 46.1 fl (35.1-43.9); Red Blood Count 4.33 M/mm3 (4.6-6.2); White Blood Count 6.2 K/mm3 (4.4-11.0)
[2022-03-21 07:59] LABS: AST(SGOT) 24 U/L (15-37); Alanine Aminotransfer ALT/SGPT 28 U/L (16-61); Albumin, Serum 3.4 g/dL (3.2-5.0); Alkaline Phosphatase 60 U/L (45-117); Anion Gap 5 (5-15); BUN 22 mg/dL (7-18); BUN/Creat Ratio 18.8 RATIO (10-20); Calcium,Total 8.7 mg/dL (8.5-10.1); Chloride 110 mmol/L (98-107); Cholesterol 170 mg/dL (200); Creatinine, Serum 1.17 mg/dL (0.70-1.30); EST Glomerular Filtration Rate 67 mL/min (>60); Est Glom Filt Rate - Afr Amer 81 mL/min (>60); Globulin 3.4 g/dL (2.2-4.2); Glucose 117 mg/dL (74-106); High Density Lipoprotein 33 mg/dL; Magnesium 2.3 mg/dL (1.6-2.6); Potassium 3.9 mmol/L (3.5-5.1); Protein, Total 6.8 g/dL (6.4-8.2); Sodium Level 141 mmol/L (136-145); Triglycerides 242 mg/dL; Very Low Density Lipoprotein 48 mg/dL (5-40)
[2022-03-21 08:12] LABS: International Normalized Ratio 2.4; Prothrombin Time (Protime)PT. 25.4 SECONDS (11.7-14.9)
[2022-03-21 08:50] LABS: Hemoglobin A1c 5.8 % (3.8-5.6)
[2022-03-21 09:12] LABS: Vitamin D,25 Hydroxy 49.8 ng/mL
== END 2022-04-13 02:40 | disposition home or self-care (01) ==
LOC: LAB 06:08
PROVIDERS: Family Provider Family Medicine; PCP Family Medicine; Referring Provider Internal Medicine Cardiovascular Disease; Visit Provider Internal Medicine Cardiovascular Disease
DX: I48.0 Paroxysmal atrial fibrillation (principal); Z79.01 Long term (current) use 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s
CPT/HCPCS: 36415; 80053; 80061; 82306; 83036; 83735; 85025; 85610

== ENCOUNTER 2022-04-28 05:52 | Outpatient (RCR) | payer OTHER, SELFPAY ==
[2022-04-13 02:40] VITALS: BMI 38.9
[2022-04-28 07:34] LABS: International Normalized Ratio 2.7; Prothrombin Time (Protime)PT. 28.2 SECONDS (11.7-14.9)
== END 2022-04-28 18:00 | disposition home or self-care (01) ==
LOC: LAB 05:52
PROVIDERS: Family Provider Family Medicine; PCP Family Medicine; Referring Provider Internal Medicine Cardiovascular Disease; Visit Provider Internal Medicine Cardiovascular Disease
DX: I48.0 Paroxysmal atrial fibrillation (principal); Z79.01 Long term (current) use 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s
CPT/HCPCS: 36415; 85610

== ENCOUNTER → 2022-05-06 | Outpatient (CLI) | payer OTHER, SELFPAY ==
--- NOTE | 2022-05-06 16:31 | RAD_ITS ---
STUDY: X-RAY - PELVIS AND BILATERAL HIPS REASON FOR EXAM: Bilateral hip pain. TECHNIQUE: AP view of the pelvis.? 2 views of the right hip, and 2 views of the left hip were obtained. COMPARISON: Radiographs 08/10/2019. FINDINGS: There are chronic ossifications adjacent to the left iliac crest. There is mild prostatic calcification. There is chronic deformity of the left superior iliac spine likely from remote injury. There is incidental vacuum phenomenon in the sacroiliac joints bilaterally. Normal bilateral superior and inferior pubic rami. There is mild chronic widening of the pubic symphysis. Normal bilateral ischial tuberosities. Normal visualized right femoral head. Normal right acetabulum. There is mild joint space narrowing of the superior lateral right hip joint. There is chronic deformity of the of the left femoral head/neck, possibly a sequelae of Vnfo-Xngho-Ycxyiih disease. Normal left acetabulum. There is joint space narrowing of the left hip joint and a small intra-articular body at the medial aspect of the femoral neck. RAD/Hips B/L min 2 views w/ Pelvis IMPRESSION: Left hip arthrosis with small intra-articular body. Chronic deformity of the left femoral head/neck, possibly a sequelae of Ppee-Ppkuf-Utpkigl disease. Mild right hip arthrosis. Chronic deformity of the left superior iliac spine likely from remote injury and myositis ossificans adjacent to the left iliac wing. Mild chronic widening of the pubic symphysis. Electronically Signed: Francisco Bhakta MD at 9:03 EDT ,
== END | disposition home or self-care (01) ==
PROVIDERS: PCP Family Medicine; Referring Provider Family Medicine; Visit Provider Family Medicine
DX: M16.0 Bilateral primary osteoarthritis of hip (principal)
CPT/HCPCS: 73521

== ENCOUNTER 2022-05-28 05:58 | Outpatient (RCR) | payer OTHER, SELFPAY ==
[2022-05-14 23:07] VITALS: BMI 38.9
[2022-05-28 06:43] LABS: International Normalized Ratio 2.5
== END 2022-05-28 18:00 | disposition home or self-care (01) ==
LOC: LAB 05:58
PROVIDERS: Family Provider Family Medicine; PCP Family Medicine; Referring Provider Internal Medicine Cardiovascular Disease; Visit Provider Internal Medicine Cardiovascular Disease
DX: I48.0 Paroxysmal atrial fibrillation (principal); Z79.01 Long term (current) use 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s
CPT/HCPCS: 36415; 85610

== ENCOUNTER 2022-06-24 06:02 | Outpatient (RCR) | payer OTHER, SELFPAY ==
[2022-06-13 21:37] VITALS: BMI 38.9
[2022-06-24 06:54] LABS: International Normalized Ratio 2.6; Prothrombin Time (Protime)PT. 27.1 SECONDS (11.7-14.9)
== END 2022-06-24 18:00 | disposition home or self-care (01) ==
LOC: LAB 06:02
PROVIDERS: Family Provider Family Medicine; PCP Family Medicine; Referring Provider Internal Medicine Cardiovascular Disease; Visit Provider Internal Medicine Cardiovascular Disease
DX: I48.0 Paroxysmal atrial fibrillation (principal); Z79.01 Long term (current) use 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s
CPT/HCPCS: 36415; 85610

== ENCOUNTER 2022-07-23 05:52 | Outpatient (RCR) | payer OTHER, SELFPAY ==
[2022-07-15 09:42] VITALS: BMI 38.9
[2022-07-23 07:58] LABS: International Normalized Ratio 2.3; Prothrombin Time (Protime)PT. 25.3 SECONDS (11.7-14.9)
== END 2022-08-13 18:00 | disposition home or self-care (01) ==
LOC: LAB 05:52
PROVIDERS: Family Provider Family Medicine; PCP Family Medicine; Referring Provider Internal Medicine Cardiovascular Disease; Visit Provider Internal Medicine Cardiovascular Disease
DX: I48.0 Paroxysmal atrial fibrillation (principal); Z79.01 Long term (current) use 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s
CPT/HCPCS: 36415; 85610

== ENCOUNTER 2022-08-29 05:54 | Outpatient (RCR) | payer OTHER, SELFPAY ==
[2022-08-13 23:15] VITALS: BMI 38.9
[2022-08-29 07:37] LABS: Absolute Lymphocyte Count 1.34 X10^3/uL (0.83-4.51); Absolute Neutrophil Count 3.9 X10^3/uL (2.0-7.7); Basophil# 0.05 X10^3/uL; Basophil% 0.8 % (0-1); Eosinophil# 0.24 X10^3/uL; Eosinophils% 3.8 % (0-5); Hemoglobin 13.3 g/dL (13.0-16.5); Lymphocyte # 1.34 X10^3/ul (0.83-4.51); Lymphocyte % 21.5 % (19-41); Mean Corp Hgb Conc 32.4 g/dL (32-36); Mean Corpuscular Hgb 30.9 pg (27.0-32.0); Mean Corpuscular Volume 95.3 fL (80-94); Mean Platelet Vol. 9.7 fl (6.2-12.0); Monocyte# 0.73 X10^3/uL; Monocyte% 11.7 % (0-10); NRBC Flagged by Analyzer 0 % (0-5); Neutrophil # 3.85 X10^3/uL (2.7-7.7); Neutrophil % 61.7 % (47-70); Platelet Count 270 K/mm3 (150-450); RBC Distribution Width CV 12.8 % (11.6-14.6); RBC Distribution Width SD 44.5 fl (35.1-43.9); White Blood Count 6.2 K/mm3 (4.4-11.0)
[2022-08-29 07:45] LABS: Hemoglobin A1c 6.1 % (3.8-5.6)
[2022-08-29 07:53] LABS: Vitamin D,25 Hydroxy 46.3 ng/mL
[2022-08-29 07:59] LABS: International Normalized Ratio 2.7; Prothrombin Time (Protime)PT. 28.2 SECONDS (11.7-14.9)
[2022-08-29 08:00] LABS: AST(SGOT) 16 U/L (15-37); Alanine Aminotransfer ALT/SGPT 29 U/L (16-61); Albumin, Serum 3.3 g/dL (3.2-5.0); Alkaline Phosphatase 61 U/L (45-117); Anion Gap 5 (5-15); BUN 21 mg/dL (7-18); BUN/Creat Ratio 21.3 RATIO (10-20); Calcium,Total 8.6 mg/dL (8.5-10.1); Chloride 107 mmol/L (98-107); Cholesterol 155 mg/dL (200); Creatinine, Serum 0.99 mg/dL (0.70-1.30); EST Glomerular Filtration Rate 81 mL/min (>60); Est Glom Filt Rate - Afr Amer 98 mL/min (>60); Globulin 3.3 g/dL (2.2-4.2); Glucose 109 mg/dL (74-106); High Density Lipoprotein 38 mg/dL; Magnesium 2.2 mg/dL (1.6-2.6); Potassium 3.6 mmol/L (3.5-5.1); Protein, Total 6.6 g/dL (6.4-8.2); Sodium Level 140 mmol/L (136-145); Thyroid Stim Hormone (TSH) 1.94 uIU/mL (0.358-3.74); Triglycerides 104 mg/dL; Very Low Density Lipoprotein 21 mg/dL (5-40)
== END 2022-08-29 18:00 | disposition home or self-care (01) ==
LOC: LAB 05:54
PROVIDERS: Family Provider Family Medicine; PCP Family Medicine; Referring Provider Internal Medicine Cardiovascular Disease; Visit Provider Internal Medicine Cardiovascular Disease
DX: I48.0 Paroxysmal atrial fibrillation (principal); Z79.01 Long term (current) use 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s; I10 Essential (primary) hypertension; R73.02 Impaired glucose tolerance (oral); E55.9 Vitamin D deficiency, unspecified
CPT/HCPCS: 36415; 80053; 80061; 82306; 83036; 83735; 84443; 85025; 85610

== ENCOUNTER 2022-09-30 05:53 | Outpatient (RCR) | payer OTHER, SELFPAY ==
[2022-09-14 03:59] VITALS: BMI 38.9
[2022-09-30 07:56] LABS: International Normalized Ratio 2.2; Prothrombin Time (Protime)PT. 24.5 SECONDS (11.7-14.9)
== END 2022-09-30 18:00 | disposition home or self-care (01) ==
LOC: LAB 05:53
PROVIDERS: Family Provider Family Medicine; PCP Family Medicine; Referring Provider Internal Medicine Cardiovascular Disease; Visit Provider Internal Medicine Cardiovascular Disease
DX: I48.0 Paroxysmal atrial fibrillation (principal); Z79.01 Long term (current) use 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s
CPT/HCPCS: 36415; 85610

== ENCOUNTER → 2022-10-21 | Outpatient (CLI) | payer OTHER, SELFPAY ==
--- NOTE | 2022-10-21 16:45 | RAD_ITS ---
STUDY: X-RAY - CERVICAL SPINE REASON FOR EXAM: Male, 62 years old. CERVICALGIA TECHNIQUE: 3 view(s) of the cervical spine were obtained. COMPARISON: August 10, 2019 FINDINGS: Normal anterior atlantoaxial articulation. Normal odontoid process. Normal cervical lordosis. Normal vertebral bodies. There is disc space narrowing and spurring at C5-6 and C6-7. There is no acute fracture. The soft tissue structures are unremarkable. RAD/Cerv Spine 2 or 3 Views IMPRESSION: Degenerative change. Electronically Signed: Artem Argueta MD at 20:04 EST ,
== END | disposition home or self-care (01) ==
LOC: RAD 16:33
PROVIDERS: PCP Family Medicine; Referring Provider Anesthesiology Pain Medicine; Visit Provider Anesthesiology Pain Medicine
DX: M50.30 Other cervical disc degeneration, unspecified cervical region (principal)
CPT/HCPCS: 72040

== ENCOUNTER 2022-10-29 12:16 | Outpatient (RCR) | payer OTHER, SELFPAY ==
[2022-10-15 08:01] VITALS: BMI 38.9
[2022-10-29 15:01] LABS: International Normalized Ratio 2.6; Prothrombin Time (Protime)PT. 27.7 SECONDS (11.7-14.9)
== END 2022-10-29 18:00 | disposition home or self-care (01) ==
LOC: LAB 12:16
PROVIDERS: Family Provider Family Medicine; PCP Family Medicine; Referring Provider Internal Medicine Cardiovascular Disease; Visit Provider Internal Medicine Cardiovascular Disease
DX: I48.0 Paroxysmal atrial fibrillation (principal); Z79.01 Long term (current) use 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s
CPT/HCPCS: 85610

== ENCOUNTER → 2022-11-25 | Outpatient (CLI) | payer OTHER, SELFPAY ==
[2022-11-25 17:43] LABS: Hematocrit 45.4 % (40-54); Mean Corpuscular Hgb 31.3 pg (27.0-32.0); Mean Corpuscular Volume 94.6 fL (80-94); Mean Platelet Vol. 9.2 fl (6.2-12.0); Platelet Count 255 K/mm3 (150-450); RBC Distribution Width CV 12.6 % (11.6-14.6); RBC Distribution Width SD 43.8 fl (35.1-43.9); White Blood Count 6.1 K/mm3 (4.4-11.0)
[2022-11-25 19:17] LABS: ALB/GLOB Ratio 1.1 RATIO (0.9-2.4); AST(SGOT) 45 U/L (15-37); Alanine Aminotransfer ALT/SGPT 51 U/L (16-61); Albumin, Serum 3.7 g/dL (3.2-5.0); Alkaline Phosphatase 66 U/L (45-117); Amylase 59 U/L (25-115); Anion Gap 9 (5-15); BUN 19 mg/dL (7-18); Calcium,Total 8.8 mg/dL (8.5-10.1); Chloride 110 mmol/L (98-107); EST Glomerular Filtration Rate 90 mL/min (>60); Est Glom Filt Rate - Afr Amer 109 mL/min (>60); Globulin 3.3 g/dL (2.2-4.2); Glucose 96 mg/dL (74-106); Lipase 166 U/L (73-393); Potassium 3.5 mmol/L (3.5-5.1); Sodium Level 140 mmol/L (136-145)
== END | disposition home or self-care (01) ==
LOC: MFPLAB 14:21
PROVIDERS: PCP Family Medicine; Visit Provider Nurse Practitioner Family
DX: R19.7 Diarrhea, unspecified (principal)
CPT/HCPCS: 36415; 80053; 82150; 83690; 85027

== ENCOUNTER → 2022-12-03 | Outpatient (CLI) | payer OTHER, SELFPAY ==
[2022-12-03 16:24] LABS: Bacteria 0 SEEN /hpf (None Seen); Mucous, Urine 0 SEEN /hpf (<or=2+); Red Blood Cells-Urine 0 SEEN /hpf (0-5); Squamous Epithelial Cells - UA 0 SEEN /hpf (0-5); White Blood Cells 0 SEEN /hpf (0-5)
[2022-12-03 18:05] LABS: Color, Urine Yellow (Yellow); Glucose, Dipstick Normal (Normal); Ketone-Dipstick Negative (Negative); Leukocyte Esterase-Dipstick Negative /ul (Negative); Nitrite-Dipstick Negative (Negative); Occult Blood-Urine Negative /ul (Negative); Protein-Dipstick Negative (Negative); Urine Bilirubin Dipstick Negative (Negative); Urine Clarity Clear (Clear); Urine Urobilinogen Normal (Normal)
[2022-12-03 18:35] LABS: ALB/GLOB Ratio 1.1 RATIO (0.9-2.4); AST(SGOT) 23 U/L (15-37); Alanine Aminotransfer ALT/SGPT 39 U/L (16-61); Albumin, Serum 3.5 g/dL (3.2-5.0); Alkaline Phosphatase 58 U/L (45-117); Anion Gap 6 (5-15); BUN 22 mg/dL (7-18); Calcium,Total 8.4 mg/dL (8.5-10.1); Chloride 106 mmol/L (98-107); EST Glomerular Filtration Rate 80 mL/min (>60); Est Glom Filt Rate - Afr Amer 97 mL/min (>60); Globulin 3.2 g/dL (2.2-4.2); Glucose 95 mg/dL (74-106); PSA,Total - Annual Screen 1.49 ng/mL (0.00-4.00); Potassium 3.8 mmol/L (3.5-5.1); Protein, Total 6.7 g/dL (6.4-8.2); Sodium Level 141 mmol/L (136-145)
== END | disposition home or self-care (01) ==
LOC: MFPLAB 16:21
PROVIDERS: PCP Family Medicine; Referring Provider Family Medicine; Visit Provider Family Medicine
DX: I10 Essential (primary) hypertension (principal); R79.89 Other specified abnormal findings of blood chemistry; Z12.5 Encounter for screening for malignant neoplasm of prostate
CPT/HCPCS: 36415; 80053; 81001; 84153; G0103

== ENCOUNTER 2022-12-12 05:55 | Outpatient (RCR) | payer OTHER, SELFPAY ==
[2022-11-11 23:04] VITALS: BMI 38.9
[2022-11-28 07:17] LABS: Absolute Lymphocyte Count 1.04 X10^3/uL (0.83-4.51); Absolute Neutrophil Count 3.2 X10^3/uL (2.0-7.7); Basophil# 0.04 X10^3/uL; Basophil% 0.8 % (0-1); Eosinophil# 0.26 X10^3/uL; Hematocrit 41.4 % (40-54); Hemoglobin 13.9 g/dL (13.0-16.5); Lymphocyte # 1.04 X10^3/ul (0.83-4.51); Mean Corp Hgb Conc 33.6 g/dL (32-36); Mean Corpuscular Hgb 31.2 pg (27.0-32.0); Mean Corpuscular Volume 92.8 fL (80-94); Monocyte# 0.71 X10^3/uL; Monocyte% 13.6 % (0-10); NRBC Flagged by Analyzer 0 % (0-5); Neutrophil # 3.15 X10^3/uL (2.7-7.7); Neutrophil % 60.4 % (47-70); Platelet Count 245 K/mm3 (150-450); RBC Distribution Width CV 12.7 % (11.6-14.6); RBC Distribution Width SD 43.2 fl (35.1-43.9); Red Blood Count 4.46 M/mm3 (4.6-6.2); White Blood Count 5.2 K/mm3 (4.4-11.0)
[2022-11-28 07:27] LABS: International Normalized Ratio 3.2; Prothrombin Time (Protime)PT. 32.2 SECONDS (11.7-14.9)
[2022-11-28 08:12] LABS: Vitamin D,25 Hydroxy 50.5 ng/mL
[2022-11-28 08:23] LABS: Hemoglobin A1c 5.5 % (3.8-5.6)
[2022-11-28 08:32] LABS: ALB/GLOB Ratio 1.1 RATIO (0.9-2.4); AST(SGOT) 48 U/L (15-37); Alanine Aminotransfer ALT/SGPT 77 U/L (16-61); Albumin, Serum 3.4 g/dL (3.2-5.0); Alkaline Phosphatase 59 U/L (45-117); Anion Gap 10 (5-15); BUN 20 mg/dL (7-18); BUN/Creat Ratio 23.4 RATIO (10-20); Calcium,Total 8.5 mg/dL (8.5-10.1); Chloride 107 mmol/L (98-107); Cholesterol 94 mg/dL (200); Creatinine, Serum 0.86 mg/dL (0.70-1.30); EST Glomerular Filtration Rate 96 mL/min (>60); Est Glom Filt Rate - Afr Amer 116 mL/min (>60); Glucose 101 mg/dL (74-106); High Density Lipoprotein 29 mg/dL; Magnesium 2.2 mg/dL (1.6-2.6); Potassium 3.2 mmol/L (3.5-5.1); Protein, Total 6.4 g/dL (6.4-8.2); Sodium Level 141 mmol/L (136-145); Thyroid Stim Hormone (TSH) 1.42 uIU/mL (0.358-3.74); Triglycerides 81 mg/dL; Very Low Density Lipoprotein 16 mg/dL (5-40)
[2022-12-12 08:20] LABS: International Normalized Ratio 2.7
== END 2022-12-12 23:09 | disposition home or self-care (01) ==
LOC: LAB 05:55
PROVIDERS: Family Provider Family Medicine; PCP Family Medicine; Referring Provider Internal Medicine Cardiovascular Disease; Visit Provider Internal Medicine Cardiovascular Disease
DX: I48.0 Paroxysmal atrial fibrillation (principal); Z79.01 Long term (current) use 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s; I10 Essential (primary) hypertension; R73.02 Impaired glucose tolerance (oral); E55.9 Vitamin D deficiency, unspecified
CPT/HCPCS: 36415; 80053; 80061; 82306; 83036; 83735; 84443; 85025; 85610

== ENCOUNTER 2023-01-09 06:00 | Outpatient (RCR) | payer OTHER, SELFPAY ==
[2022-12-12 23:09] VITALS: BMI 38.9
[2023-01-09 06:55] LABS: Prothrombin Time (Protime)PT. 22.7 SECONDS (11.7-14.9)
== END 2023-01-11 01:22 | disposition home or self-care (01) ==
LOC: LAB 06:00
PROVIDERS: Family Provider Family Medicine; PCP Family Medicine; Referring Provider Internal Medicine Cardiovascular Disease; Visit Provider Internal Medicine Cardiovascular Disease
DX: I48.0 Paroxysmal atrial fibrillation (principal); Z79.01 Long term (current) use 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s
CPT/HCPCS: 36415; 85610

== ENCOUNTER 2023-02-10 12:19 | Outpatient (RCR) | payer OTHER, SELFPAY ==
[2023-01-11 01:23] VITALS: BMI 38.9
[2023-02-10 13:11] LABS: International Normalized Ratio 2.2; Prothrombin Time (Protime)PT. 24.6 SECONDS (11.7-14.9)
== END 2023-02-11 18:00 | disposition home or self-care (01) ==
LOC: LAB 12:19
PROVIDERS: Family Provider Family Medicine; PCP Family Medicine; Referring Provider Internal Medicine Cardiovascular Disease; Visit Provider Nurse Practitioner Family
DX: I48.0 Paroxysmal atrial fibrillation (principal); Z79.01 Long term (current) use 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s
CPT/HCPCS: 36415; 85610

== ENCOUNTER 2023-03-10 05:57 | Outpatient (RCR) | payer OTHER, SELFPAY ==
[2023-02-12 09:48] VITALS: BMI 38.9
[2023-03-10 08:27] LABS: International Normalized Ratio 2.3; Prothrombin Time (Protime)PT. 25.2 SECONDS (11.7-14.9)
== END 2023-03-10 18:00 | disposition home or self-care (01) ==
LOC: LAB 05:57
PROVIDERS: Family Provider Family Medicine; PCP Family Medicine; Referring Provider Nurse Practitioner Family; Visit Provider Nurse Practitioner Family
DX: I48.0 Paroxysmal atrial fibrillation (principal); Z79.01 Long term (current) use 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s
CPT/HCPCS: 36415; 85610

== ENCOUNTER 2023-03-24 17:30 | Outpatient (RCR) | payer OTHER, SELFPAY ==
--- NOTE | 2023-03-05 17:50 | HP.PTEVAL ---
Patient's Visit Information MIGUE STROUD is a 62 year old M referred to Physical Therapy by Dr. Richard Ordonez MD with a diagnosis of Back pain, hip pain. Date of Evaluation: 03/05/23 Physical Therapist: Harish Schwartz DPT, OCS, CSCS - Visit Plan Frequency: 2x /Week Duration: 4-6 Weeks Plan: 2x/week for 4-6 weeks for... 1. LB AROM focussing on NS pelvic tilt position, stretch quads and HS and progress to agressive flexion stretches to I. 2. Teach NS core strength and progress to I ass otlerated. - Subjective Chronic back and L hip pain for years. Had hip surgery when younger and limps. Seen José Luis for multiple injections including this past Thursday which helped 80% with back injections. has disc problems found by Robert and pain management is appropriate but not surgery. Pain is across LB 7/10 prior to injection with walking, better sitting. pain now about 3/10 intermittently, worse with walking and standing, sitting is comfortable. Sleep is not a problem, sleeps on side. 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 is working and is worse if on feet. Sitting is better. Hobbies: Race sprint cars, no problems with this. Basic ADLs: No problem unless on feet too much. No regular ex. Therapy has helped in the past. Legs weak and hard to get up off floor, can't walk far. No leg symptoms - Pain LBP Pain Intensity (Out of 10): 0 Pain Intensity Range: 0, 7 - Objective Walks into PT with a stiff back but I, transfers I showing weakness in core, chair trasnfers I without UE. Walks without antalgia but has a L trendelenberg. Steps are reciprocal without rail. LB ext max limited, flexion max limited. SB max limited. Only extension painful but flexion stiff. reflexes 2/3 patella and achilles B. Sensation LE WNL to gross light touch B LE. strength knees and ankles 5/5, hip abd L 3+ and R 3+, extension 3, flexion 4 B. No pain. AROM LE WFL, some IR pain L hip at end range. HS adn quad max tight B. - slump. - SLR. - Balance/Special Test Scores Oswestry Low Back Score: 10 - Goals Goal 1:: Work full day without feelingdone Goal Time Frame: 4-6 Weeks Goal 2:: I appropr leg stretches, back ROm and core strength to HEp to manage condition Goal Time Frame: 4-6 Weeks Goal 3:: Pain 2/10 at worst adn intermittent, 75% improved. Goal Time Frame: 4-6 Weeks Goal 4:: Stand at work in posture that does not increas pain Goal Time Frame: 4-6 Weeks Goal 5:: oswestry 3 or less Goal Time Frame: 4-6 Weeks - Rehabilitation Potential Physical Therapy Diagnosis: degenerative changes LB with spondylolisthesis effecting ability to be on feet alot. Rehabilitation Potential: Good - Anticipated Interventions Patient/Client Instruction: Educate patient on: Condition, Plan of Care For the Purpose of:: To decrease pain, To increase ROM, To improve nutrient delivery to tissue, To increase tolerance to activity/condition/position, To improve ability of physical actions for home/community/work/leisure, To improve gait and locomotor functions Therapeutic Exercise to Include: Strength training, Postural training, Flexibilty training, Passive ROM, Active ROM For the Purpose of:: To decrease pain, To increase ROM, To improve nutrient delivery to tissue, To improve muscle performance and motor function, To improve ability of physical actions for home/community/work/leisure Thank you for the opportunity to evaluate your patient. For Medicare and Medicare HMO plans, please review the plan of care and approve it. It will need to be FAXED BACK to us at [phone] for Medicare purposes. For Medicare only, by signing this I certify the plan of care. Please let me know if there are questions or concerns regarding this plan of care. Physician Signature: Date:
--- NOTE | 2023-05-25 07:28 | HP.PT.NRP ---
Patient Information Patient Information: MIGUE STROUD was seen in my office for initial evaluation on 03/05/23. The following Plan of Care was established for this patient: POC Established Initial Frequency: 2x /Week Initial Duration: 4-6 Weeks Anticipated Interventions Patient/Client Instruction: Educate patient on: Condition and Plan of Care For the Purpose of:: To decrease pain, To increase ROM, To improve nutrient delivery to tissue, To increase tolerance to activity/condition/position, To improve ability of physical actions for home/community/work/leisure and To improve gait and locomotor functions Therapeutic Exercise to Include: Strength training, Postural training, Flexibilty training, Passive ROM and Active ROM For the Purpose of:: To decrease pain, To increase ROM, To improve nutrient delivery to tissue, To improve muscle performance and motor function and To improve ability of physical actions for home/community/work/leisure Last Seen Last Seen: This patient was last seen in our office 03/24/23. Pertinent comments regarding their Physical therapy will appear below: Pt seen 5 visits of POC but did not attend any further visits. At this point, it has been two months and I will discontinue due to nonattendance. At this point I will be discontinuing this patient from physical therapy. I would be happy to see this patient again in the future if found appropriate by the physician. Thank you! Harish Schwartz, DPT, OCS, CSCS Balance/Gait/Functional tests Balance/Special Test Scores Oswestry Low Back Score: 10
== END 2023-03-24 19:00 | disposition home or self-care (01) ==
LOC: PT 17:30
PROVIDERS: PCP Family Medicine; Referring Provider Anesthesiology Pain Medicine; Visit Provider Anesthesiology Pain Medicine
DX: M54.9 Dorsalgia, unspecified (principal); M25.559 Pain in unspecified hip
CPT/HCPCS: 97110; 97161

== ENCOUNTER 2023-04-01 05:51 | Outpatient (RCR) | payer OTHER, SELFPAY ==
[2023-03-13 22:23] VITALS: BMI 38.9
[2023-04-01 07:03] LABS: Absolute Neutrophil Count 3.7 X10^3/uL (2.0-7.7); Basophil# 0.03 X10^3/uL; Basophil% 0.5 % (0-1); Eosinophil# 0.27 X10^3/uL; Eosinophils% 4.5 % (0-5); Hematocrit 43.5 % (40-54); Lymphocyte % 23.1 % (19-41); Mean Corp Hgb Conc 32.2 g/dL (32-36); Mean Corpuscular Hgb 30.9 pg (27.0-32.0); Mean Platelet Vol. 9.6 fl (6.2-12.0); Monocyte# 0.61 X10^3/uL; Monocyte% 10.1 % (0-10); NRBC Flagged by Analyzer 0 % (0-5); Neutrophil # 3.73 X10^3/uL (2.7-7.7); Neutrophil % 61.5 % (47-70); Platelet Count 216 K/mm3 (150-450); RBC Distribution Width CV 13.2 % (11.6-14.6); RBC Distribution Width SD 46.7 fl (35.1-43.9); Red Blood Count 4.53 M/mm3 (4.6-6.2); White Blood Count 6.1 K/mm3 (4.4-11.0)
[2023-04-01 07:30] LABS: ALB/GLOB Ratio 0.9 RATIO (0.9-2.4); AST(SGOT) 20 U/L (15-37); Alanine Aminotransfer ALT/SGPT 26 U/L (16-61); Albumin, Serum 3.4 g/dL (3.2-5.0); Alkaline Phosphatase 59 U/L (45-117); Anion Gap 5 (5-15); BUN 25 mg/dL (7-18); BUN/Creat Ratio 25.3 RATIO (10-20); Calcium,Total 8.6 mg/dL (8.5-10.1); Chloride 110 mmol/L (98-107); Cholesterol 171 mg/dL (200); Creatinine, Serum 0.99 mg/dL (0.70-1.30); EST Glomerular Filtration Rate 81 mL/min (>60); Est Glom Filt Rate - Afr Amer 98 mL/min (>60); Globulin 3.6 g/dL (2.2-4.2); Glucose 105 mg/dL (74-106); High Density Lipoprotein 41 mg/dL; Magnesium 2.3 mg/dL (1.6-2.6); Sodium Level 139 mmol/L (136-145); Thyroid Stim Hormone (TSH) 1.85 uIU/mL (0.358-3.74); Triglycerides 103 mg/dL; Very Low Density Lipoprotein 21 mg/dL (5-40)
[2023-04-01 08:17] LABS: International Normalized Ratio 2.2; Prothrombin Time (Protime)PT. 24.9 SECONDS (11.7-14.9)
[2023-04-01 08:47] LABS: Vitamin D,25 Hydroxy 70.1 ng/mL
[2023-04-01 09:18] LABS: Hemoglobin A1c 5.7 % (3.8-5.6)
== END 2023-04-13 18:00 | disposition home or self-care (01) ==
LOC: LAB 05:51
PROVIDERS: Family Provider Family Medicine; PCP Family Medicine; Referring Provider Nurse Practitioner Family; Visit Provider Nurse Practitioner Family
DX: I48.0 Paroxysmal atrial fibrillation (principal); Z79.01 Long term (current) use 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s
CPT/HCPCS: 36415; 80053; 80061; 82306; 83036; 83735; 84443; 85025; 85610

== ENCOUNTER 2023-05-05 08:12 | Day surgery (SDC) | payer OTHER, SELFPAY ==
[2023-05-05] VITALS (8 sets, daily range): BP systolic 98–138; BP diastolic 62–73; PULSE 72–97; RESP 16; TEMP 36.1–37.2; O2SAT 92–99; BMI 38.3
--- NOTE | 2023-05-05 | IMM_PTH ---
PATIENT: MIGUE STROUD LOC: EN U#:[id number] AGE/SX: 63/M ROOM: RE05/05/[address]: Dr. Alon Boland MD : 1960 BED: DIS: 05/05/2023 SPEC #: [id number] RECD: 05/07/23 06:08 STATUS: ASHLEY REViolet #: [id number] OFE: 05/05/23 00:[address]: Alon Boland DEPT: IMMUNOHISTOCHEMISTRY RECD BY: Malinda Tyler ENTERED: 05/07/23 06:11 SP TYPE: IMMUNO OTHR DR: Dr. Hao Membreno MD Tissues: Rectum, NOS Procedures: MSH2 (add) MLH-1 (add) MSH6 (add) Anti-PMS2 (add) HER2 SUE (add) P53 (add) CDX2 (add) MOC-31 (add) KI-67 (initial) PHYSICIAN & INSTITUTION [address] [address] SPECIMEN INFORMATION: Tissue Source: Rectal mass Clinical Info: GERD Specimen Number: [id number] CPT code: 82236, 49177 x8 METHODOLOGY: Deparaffinized sections of prefer/formalin-fixed tissue or PAP/DQ stained slides are incubated with monoclonal/polyclonal antibodies/oligonucleotide probes. Localization is made via biotin free immunoperoxidase method. Appropriate controls are performed and reacted as expected. Results on target cell population are indicated in the following table: RESULTS: ANTIBODY / CLONE RESULT Her-2neu (CB11) negative (0) MOC-31 (4561) positive MLH-1 (M1) positive MSH2 (25D12) positive MSH6 (44) positive PMS2 (CJC2475) positive Ki-67 (30-9) positive, >90% P53 (DO-7) positive, indeterminate pattern CDX2 ([id number]) positive Testing for Her2 by IHC if equivocal, recommend testing for Her2 by FISH(remove/not needed) These tests were developed and their performance characteristics determined by [facility]. They may not have been cleared or approved by the U.S. Food and Drug Administration. The FDA has determined that such clearance or approval is not necessary. The above immunohistochemical/dualISH markers are ordered and reviewed by the Pathologist. INTERPRETATION: Rectal mass, biopsy: Invasive adeno carcinoma Result of Microsatellite Instability Study: Negative (no loss of mismatch protein; no microsatellite instability detected). /SJ:cc 05/07/23
--- NOTE | 2023-05-05 | COLBX_PTH ---
PATIENT: MIGUE STROUD LOC: EN U#:[id number] AGE/SX: 63/M ROOM: RE05/05/[address]: Dr. Alon Boland MD : 1960 BED: DIS: 05/05/2023 SPEC #: [id number] RECD: 05/05/23 11:30 STATUS: ASHLEY COUGHLINViolet #: [id number] OFE: 05/05/23 00:[address]: Alon Boland DEPT: SURGICAL PATHOLOGY RECD BY: Josh Montiel ENTERED: 05/05/23 11:30 SP TYPE: COLON BX OTHR DR: Dr. Hao Membreno MD Tissues: Rectum, NOS Procedures: Surgery Specimen Level IV HEADER OPERATION: Colonoscopy, biopsy PRE-OP DIAGNOSIS: GERD TISSUE SUBMITTED: Rectal mass biopsy MICROSCOPIC DIAGNOSIS Rectal mass, biopsy: Invasive poorly differentiated adenocarcinoma. See Comment. AM/am 05/06/23 COMMENT Mucin stain with matched control is positive. MSI results by immunohistochemistry will be reported separately. MICROSCOPIC DESCRIPTION Slides are reviewed. GROSS DESCRIPTION Received in fixative is one container labeled with the patient's name and designated rectal mass biopsy. The specimen consists of multiple irregular fragments of light teague soft tissue that in aggregate measure 0.7 x 0.6 x 0.1 cm. The specimen is totally submitted in one cassette. / AM:anca 05/05/2023 TC:0 CPT: 68196 ADDENDUM ADDENDUM ADDENDUM ADDENDUM ADDENDUM ADDENDUM ADDENDUM ADDENDUM ADDENDUM ADDENDUM 05/21/2023 10:20 ADDENDUM 05/21/2023 10:20 ADDENDUM 05/21/2023 10:20 ADDENDUM 05/21/2023 10:20 ADDENDUM 05/21/2023 10:20 This addendum is added to incorporate an outside pathology consultation report. The case was examined at [facility] (#[id number]) and the following diagnosis was rendered. 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 Please see complete above mentioned consultation report in EMR
--- NOTE | 2023-05-05 08:20 | PCM.HP.BLA ---
History and Physical Date of Admission: 05/05/23 Visit Reasons: RECTAL BLEED Chief Complaint: rectal bleeding Master Of Ceremonies Required: No Is patient in pain?: No Allergies apixaban [From Eliquis] Adverse Reaction (Severe, Verified 04/13/23 08:10) Pt formed PE's in spite of taking routinelysimvastatin Adverse Reaction (Severe, Verified 04/13/23 08:10) Myalgiasdoxycycline Adverse Reaction (Intermediate, Verified 04/13/23 08:10) GI upset Medications cholecalciferol (vitamin D3) 50 mcg (2,000 unit) capsule 2,000 unit PO DAILY supplement 06/16/19 [History Confirmed 04/13/23] furosemide 40 mg tablet 40 mg PO DAILY 06/16/19 [History Confirmed 04/13/23] benazepril 20 mg tablet 20 mg PO DAILY 01/09/21 [History Confirmed 04/13/23] sertraline 50 mg tablet 50 mg PO DAILY 01/09/21 [History Confirmed 04/13/23] omeprazole 20 mg capsule,delayed release 20 mg PO Q OTHER DAY PRN GERD 10/25/21 [History Confirmed 04/13/23] diltiazem HCl 300 mg capsule,extended release 24 hr 300 mg PO DAILY #90 caps 04/28/22 [Rx Confirmed 04/13/23] warfarin 1 mg tablet See Rx Instructions .Route .COMPLEX #180 TABLETS 11/27/22 [Rx Confirmed 04/13/23] warfarin 3 mg tablet 3 mg PO DAILY #90 tabs 11/28/22 [Rx Confirmed 04/13/23] warfarin 5 mg tablet 5 mg PO DAILY 90 days #90 tabs 11/28/22 [Rx Confirmed 04/13/23] rosuvastatin 5 mg tablet (Crestor) 5 mg PO Q OTHER DAY #45 tabs 12/25/22 [Rx Confirmed 04/13/23] aspirin 81 mg tablet,delayed release (Enteric Coated Aspirin) 81 mg PO DAILY #90 tabs 01/11/23 [Rx Confirmed 04/13/23] PFSH Medical History Abdominal pain Acute cough Afib Arthritis Asthma Benign essential hypertension COVID-19 Dyspnea on exertion Edema Gastroesophageal reflux disease History of venous thromboembolism Hyperlipidemia Hypertension 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 CORRINA (obstructive sleep apnea) Pulmonary embolism (06/10/18) Sinusitis Weight gain with edema Surgical History History of appendectomy History of appendectomy History of colonoscopy (~06/2016) History of hip surgery History of left heart catheterization (10/21/18) History of left inguinal hernia repair Family History Mother CAD (coronary artery disease) Diabetes Hypertension Hyperlipidemia Heart diseaseFather CVA (cerebral vascular accident) Social History Smoking Status: Never smoker alcohol intake: never substance use type: does not use caffeine: Yes Type: carbonated beverages Number of servings: 1 HPI HPI HPI: 63-year-old gentleman who is referred by Dr Hao Membreno regarding concerns about rectal bleeding. A written compromise surgical consult recommendations will return to him. Reviewing medications it appears that he is on omeprazole and meloxicam and warfarin and low-dose aspirin in addition to his other medications. He has a history of paroxysmal atrial fibrillation and morbid obesity and pulmonary embolism and obstructive sleep apnea and gastroesophageal reflux disease and bilateral extremity edema. I assisted him on December 10, 2018 with a colonoscopy. The preparation was fair. Hemorrhoids were noted. Diverticulosis was noted in the entire colon. At that time the patient was on Eliquis and repeat exam at 5 years for screening was recommended. That examination was performed because of left lower quadrant abdominal pain. Previously on August 10, 2017 I assisted him with an esophagogastroduodenoscopy. Polyps were noted. Small to moderate-sized hiatal hernia. Pathology showed mild gastritisAnd H. pylori was negative. 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 Still doing heavy lifting and straining on occasion. He will note progressively frequent rectal bleeding noted on the tissue paper and on the stool. He denies any dark-colored stool. Denies any family history of colon cancer. He has been on omeprazole for period of time but he says his upper GI symptoms are really quite mild and infrequent. He now only takes the omeprazole every other day. He does have chronic bilateral extremity swelling. Occasionally he will use support hose. He has been more recently placed on a diuretic ROS General General: No weight change, appetite, fatigue, colon cancer, breast cancer or weakness HEENT HEENT: No difficulty swallowing, eye injury, eye surgery, swollen glands or hoarseness Endo Endocrine: No thyroid disease, diabetes mellitus, thyroid cancer, Hair loss, heat intolerance or cold intolerance Skin Skin: No rash or changing moles Breast Breast: No left breast lump, right breast lump, nipple discharge, breast pain, abnormal mammogram, abnormal US or breast enlargement Musc Musculoskeletal: Yes back problems and arthritis; No rheumatoid arthritis, gout or joint pain Cardio Cardiovascular: Yes atrial fibrillation and high blood pressure; No murmur, pacemaker, heart disease, heart attack, heart stent, palpitations, shortness of breat with exertion or chest pain Psych Psychiatric: Yes anxiety; No depression or hearing voices Resp Respiratory: No shortness of breath, Yes sleep apnea, No cough, No COPD, No asthma, No emphysema and No wheezing Gastro Gastrointestinal: No abdominal pain, No nausea or vomiting, No diarrhea, No constipation, No blood in stool, Yes acid reflux, Yes hemorrhoids, No ulcers, No gallbladder problem and No black,tarry stools Juma Hematologic: Yes blood thinners, No blood disorders, No bleeding, No anemia and Yes blood clots Neuro Neurologic: No system reviewed and no additional complaints, except as documented, No as per HPI, No abnormal gait, No abnormal hearing, No abnormal movements, No abnormal speech, No behavioral changes, No burning sensations, No confusion, No convulsions, No disequilibrium, No dizziness, No localized weakness, No frequent falls, No headache(s), No lack of coordination, No loss of vision, No memory loss, No numbness, No other visual disturbances, No radicular pain, No restless legs, No sensory deficit, No syncope, No tingling, No tremor(s), No weakness and No other Exam Const General: cooperative, comfortable and no acute distress [facility] Head: normal to inspection Eyes General: appearance normal, both eyes and all related structures Neck Neck: normal visual inspection Chest Chest palpation & inspection: normal inspection of the chest Resp Effort & Inspection: normal respiratory effort Auscultation: clear to auscultation bilaterally Cardio Rate: regular rate Rhythm: regular rhythm GI Auscultation: normal bowel sounds Other: Overweight, no focal mass, no focal tenderness, normal bowel sounds Musc Cervical Spine: normal cervical lordosis Skin General: no rashes or lesions noted Neuro General: patient alert and patient awake Extrem General: no calf tenderness Psych Appearance: grossly normal Assessment and Plan Assessment and Plan (1) Paroxysmal atrial fibrillation: Status: Chronic (2) half-way current use 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: Status: Chronic (3) Gastroesophageal reflux disease: Status: Chronic Qualifiers: Esophagitis presence: without esophagitis Qualified Code(s): K21.9 - Gastro-esophageal reflux disease without esophagitis (4) Rectal bleeding: Status: Acute (5) History of pulmonary embolism: Status: Acute Plan: The patient's upper GI study symptoms have moderated greatly. He is concerned at this time as the rectal bleeding. His previous bowel prep was only fair. We will have him hold his Coumadin for 2 days. We will perform a colonoscopy with possible biopsy or polypectomy as indicated. We will utilize monitored anesthesia care. Very careful inspection for potential source of rectal bleeding will be pursued. He has had an opportunity to ask and have questions answered. I appreciate the ongoing opportunity of assisting with the surgical care. Copy: Dr Hao Boland M.D., F.A.C.S I have examined the patient and the H&P has been reviewed. There are no clinical changes since date of exam. Alon Boland M.D., F.A.C.S.
[2023-05-05 08:35] LABS: INR Fingerstick 1.7; Prothrombin Time Fingerstick 19.1 SEC (11.7-14.9)
[2023-05-05] MEDS: Lactated Ringers 1,000 ML 15 ML IV (08:43)
--- NOTE | 2023-05-05 09:30 | OP.CCLET_ITS ---
05/05/2023 Hao Membreno [address] [place] [address] Re : Colonoscopy procedure for Maxime Gunter Dear Dr. Membreno This procedure was performed on Friday, May 05, 2023. My impressions and recommendations are as follows: Impressions : - Palpable rectal mass found on digital rectal exam. - Likely malignant tumor in the distal rectum. Biopsied. - Diverticulosis in the sigmoid colon. - The examination was otherwise normal. Recommendations : - Discharge patient to home. - Resume previous diet. - Continue present medications. - Repeat colonoscopy in 1 year for surveillance. - Return to my office in 2 days Clinically this is consistent with a rectal carcinoma left lateral wall approximately 2 to 3 cm from the anal verge. Plan for abdominal and pelvic and chest CT. We will recommend tertiary referral for colorectal surgery We will recommend hematology oncology consultation. My findings are described in the full procedure note, which is enclosed. If I can be of further assistance, please feel free to contact me at Doctor phone number(s): Work: . Sincerely, Alon Boland MD 05/05/2023 9:29:54 AM This report has been signed electronically.
--- NOTE | 2023-05-05 09:30 | OP.COLON_ITS ---
Patient Name: Maxime Gunter Procedure Date: 05/05/2023 8:57 AM Date of : 1960 Age: 63 Procedure: Colonoscopy Indications: Rectal bleeding Providers: Alon Boland MD Referring MD: Hao Membreno Medicines: See the Anesthesia note for documentation of the administered medications Patient Profile: Last Colonoscopy: 2017. Complications: No immediate complications. Procedure: Pre-Anesthesia Assessment: - Prior to the procedure, a History and Physical was performed, and patient medications and allergies were reviewed. The patient's tolerance of previous anesthesia was also reviewed. The risks and benefits of the procedure and the sedation options and risks were discussed with the patient. All questions were answered, and informed consent was obtained. Prior Anticoagulants: The patient has taken Coumadin (warfarin), last dose was 2 days prior to procedure. ASA Grade Assessment: II - A patient with mild systemic disease. After reviewing the risks and benefits, the patient was deemed in satisfactory condition to undergo the procedure. After I obtained informed consent, the scope was passed under direct vision. Throughout the procedure, the patient's blood pressure, pulse, and oxygen saturations were monitored continuously. The adult colonoscope was introduced through the anus and advanced to the cecum, identified by appendiceal orifice and ileocecal valve. The colonoscopy was performed without difficulty. The patient tolerated the procedure well. The quality of the bowel preparation was good. The ileocecal valve and the appendiceal orifice were photographed. Scope In: 9:10:17 AM Scope Withdrawal Time 0 hours 7 minutes 44 seconds Scope Out: 9:21:19 AM Total Procedure Duration Time 0 hours 11 minutes 2 seconds Findings: The digital rectal exam findings include palpable rectal mass. Pertinent negatives include normal prostate (size, shape, and consistency). An ulcerated non-obstructing medium-sized mass was found in the distal rectum. The mass was non-circumferential. The mass measured five cm in length. In addition, its diameter measured four mm. No bleeding was present. Mucosa was biopsied with a cold forceps for histology. Multiple diverticula were found in the sigmoid colon. The exam was otherwise without abnormality. Impression: - Palpable rectal mass found on digital rectal exam. - Likely malignant tumor in the distal rectum. Biopsied. - Diverticulosis in the sigmoid colon. - The examination was otherwise normal. Recommendation: - Discharge patient to home. - Resume previous diet. - Continue present medications. - Repeat colonoscopy in 1 year for surveillance. - Return to my office in 2 days Clinically this is consistent with a rectal carcinoma left lateral wall approximately 2 to 3 cm from the anal verge. Plan for abdominal and pelvic and chest CT. We will recommend tertiary referral for colorectal surgery We will recommend hematology oncology consultation. Procedure Code(s): --- Professional --- 72566, Colonoscopy, flexible; diagnostic, including collection of specimen(s) by brushing or washing, when performed (separate procedure) Diagnosis Code(s): --- Professional --- K62.89, Other specified diseases of anus and rectum D49.0, Neoplasm of unspecified behavior of digestive system K62.5, Hemorrhage of anus and rectum K57.30, Diverticulosis of large intestine without perforation or abscess without bleeding CPT copyright 2021 [employer]. All rights reserved. The codes documented in this report are preliminary and upon retail wireless associate review may be revised to meet current compliance requirements. Alon Boland MD 05/05/2023 9:29:54 AM This report has been signed electronically. Number of Addenda: 0 Note Initiated On: 05/05/2023 8:57 AM
== END 2023-05-05 12:09 | disposition home or self-care (01) ==
LOC: EN 08:12 → AC 08:15
PROVIDERS: PCP Family Medicine; Referring Provider Family Medicine; Visit Provider Surgery
PROC: 0DJD8ZZ Inspection of Lower Intestinal Tract, Via Natural or Artificial Opening Endoscopic (ICD-10-PCS; CPT 45378; principal; 2023-05-05 09:25)
DX: C20 Malignant neoplasm of rectum (principal); I48.0 Paroxysmal atrial fibrillation; E66.01 Morbid (severe) obesity due to excess calories; K57.30 Diverticulosis of large intestine without perforation or abscess without bleeding; K21.9 Gastro-esophageal reflux disease without esophagitis; I10 Essential (primary) hypertension; E78.00 Pure hypercholesterolemia, unspecified; Z68.38 Body mass index [BMI] 38.0-38.9, adult; Z79.01 Long term (current) use 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s; Z79.82 Long term (current) use of aspirin; Z79.899 Other long term (current) drug therapy; Z86.16 Personal history of COVID-19; Z86.711 Personal history of pulmonary embolism
CPT/HCPCS: 45380; 36416; 81002; 85610; 88305; 88341; 88342; J7120

== ENCOUNTER → 2023-05-05 | Outpatient (CLI) | payer OTHER, SELFPAY ==
--- NOTE | 2023-05-05 10:33 | CT_ITS ---
INDICATION: RECTAL MASS EXAMINATION: CT CHEST, ABDOMEN AND PELVIS WITH CONTRAST - CT Chest Abdomen And Pelvis W/ Contrast Injection TECHNIQUE: Helically acquired images were obtained of the chest, abdomen, and pelvis following IV contrast. Non-angiographic protocol was performed. A radiation dose optimization technique was used for this scan. IV Contrast dosage and agent: 100 cc of Isovue-300 Oral contrast: Oral Gastrografin. COMPARISON: CT abdomen/pelvis from 10/11/2020. CTA chest from 06/16/2019. FINDINGS: CHEST: Lungs/pleura: The central airways are patent. Segmental and subsegmental atelectasis in the left lower lobe and lingula. Additional trace areas of scattered subsegmental atelectasis. No focal consolidations or suspicious masses. No pleural effusion or pneumothorax. Mediastinum: Heart size is normal. No pericardial effusion. No masses or lymphadenopathy. Indeterminate 1.1 cm low-attenuation left thyroid nodule. Vasculature: Normal course and caliber of the pulmonary trunk with no aneurysmal dilatation or large central filling defects. Normal course and caliber of the thoracic aorta with no aneurysmal dilatation or dissection. Bones/soft tissues: No acute fracture or subluxation. No destructive osseous lesions. Soft tissues are unremarkable. ABDOMEN/PELVIS: Liver: Stable atrophy of the left hepatic lobe. There are a few scattered subcentimeter low-attenuation lesions that are too small to characterize but stable since 2020 and favored to relate to benign cysts. No acute findings. Gallbladder: Normal appearance. No significant bile duct dilation. Spleen: Unremarkable. Pancreas: No parenchymal lesions or duct dilation. Adrenal glands: Unremarkable. Kidneys: There are a few punctate subcentimeter low-attenuation lesions that are too small to characterize but favored to relate to benign cysts. No hydronephrosis. No acute findings. Bladder: Normal appearance. GI tract: Oral contrast reaches the level of the rectum. There is asymmetrical wall thickening along the left lateral rectal wall from the 12:00 to 6:00 position measuring up to 1.3 cm in thickness. No other significant areas of bowel wall thickening. Colonic diverticulosis without findings of acute diverticulitis. Small hiatal hernia. Appendectomy. No significant bowel dilation. No pericolonic inflammatory stranding. Peritoneum/mesentery/retroperitoneum: No free air or free fluid. No masses or lymphadenopathy. Pelvis: No free air or free fluid. There are a few round lymph nodes in the left perirectal fat measuring up to 0.6 cm. Vasculature: No acute findings. Bones/soft tissues: Grade 1 anterolisthesis of L4 on L5. No acute fracture or subluxation. Remote left iliac bone fracture deformity with ectopic ossification in the adjacent soft tissues. Moderate osteoarthritis and stable chronic deformity of the left femoral head. No destructive osseous lesions. Soft tissues are unremarkable. CT/CT Chest, Abd, Pel w/Contrast IMPRESSION: 1. Asymmetrical wall thickening along the left lateral rectal wall from the 12:00 to 6:00 position may relate to a rectal mass given clinical indication. Correlation with colonoscopy findings and further characterization with pelvic MRI is recommended if clinically warranted. 2. There are a few round lymph nodes in the left perirectal fat measuring up to 0.6 cm. In setting of rectal malignancy, these would be considered to have abnormal morphology. Attention on pelvic MRI for staging purposes. 3. No other significant findings concerning for malignancy/metastasis in the remainder of the chest, abdomen, or pelvis. 4. Indeterminate 1.1 cm hypodense left thyroid nodule. Further characterization with ultrasound is recommended. 5. Colonic diverticulosis without findings of acute diverticulitis. 6. Small hiatal hernia. Electronically Signed: Jt Quijano DO at 13:31 EDT ,
[2023-05-05 12:30] LABS: CREATININE FINGERSTICK 1.1 mg/dL (0.70-1.30); EGFR FINGERSTICK > 60.0000 mL/min (>60)
== END | disposition home or self-care (01) ==
LOC: CT 10:19
PROVIDERS: PCP Family Medicine; Referring Provider Surgery; Visit Provider Surgery
DX: K62.89 Other specified diseases of anus and rectum (principal)
CPT/HCPCS: 71260; 74177; Q9967

== ENCOUNTER → 2023-05-13 | Outpatient (CLI) | payer OTHER, SELFPAY ==
--- NOTE | 2023-05-13 10:47 | ECHOD_ITS ---
Reason For Study: PAROXYSMAL AFIB Procedure This was a 2D Doppler, Color Flow transthoracic echocardiogram. Exam performed in department. Left Ventricle Normal LV size. Left ventricular systolic function is normal. The estimated ejection fraction is 60 %. Normal diastology for age. No regional wall motion abnormalities noted. Right Ventricle Normal RV size. Normal systolic function. Atria Normal left atrium. Normal right atrium. Mitral Valve Normal mitral valve. Tricuspid Valve Normal tricuspid valve. Aortic Valve The aortic valve is not well visualized. Pulmonic Valve Normal pulmonic valve. Great Vessels Normal aortic root. The pulmonary artery is normal size. Normal inferior vena cava. Pericardium/Pleural No pericardial effusion. MMode/2D Measurements & Calculations LVIDd: 3.9 cm IVSd: 1.0 cm Ao root diam: 3.1 cm LVIDs: 2.6 cm LVPWd: 1.2 cm RVDd: 3.3 cm FS: 32.6 % LAV(MOD-bp): 67.1 ml LVAd ap4: 32.1 cm2 LVAd ap2: 22.9 cm2 LAV(MOD-bp) Indexed: 27.2 ml/m2 LVLd ap4: 8.1 cm LVLd ap2: 7.1 cm LAV(MOD-sp2): 67.3 ml EDV(MOD-sp4): 105.8 ml EDV(MOD-sp2): 64.6 ml LAV(MOD-sp4): 64.4 ml EDV(sp4-el): 108.6 ml EDV(sp2-el): 62.4 ml LVAs ap4: 19.2 cm2 LVAs ap2: 13.9 cm2 LVLs ap4: 7.3 cm LVLs ap2: 5.8 cm ESV(MOD-sp4): 43.1 ml ESV(MOD-sp2): 28.4 ml ESV(sp4-el): 42.9 ml ESV(sp2-el): 28.5 ml EF(MOD-sp4): 59.2 % EF(MOD-sp2): 56.0 % EF(sp4-el): 60.5 % SV(MOD-sp4): 62.6 ml SV(MOD-sp2): 36.2 ml SV(sp4-el): 65.7 ml LA dimension(2D): 4.0 cm LA A4 area: 21.6 cm2 RA A4 area: 18.5 cm2 Time Measurements MV dec time: 0.26 sec Doppler Measurements & Calculations MV E max bala: 80.3 cm/sec Lat Peak E' Bala: 12.7 cm/sec Med Peak E' Bala: 13.4 cm/sec MV A max bala: 72.8 cm/sec E/E' lat: 6.3 E/E' med: 6.0 MV E/A: 1.1 MV V2 max: 100.2 cm/sec Ao V2 max: 148.3 cm/sec LV V1 max: 114.3 cm/sec MV max P.0 mmHg Ao max P.8 mmHg LV V1 max P.2 mmHg MV V2 mean: 56.1 cm/sec Ao V2 mean: 97.9 cm/sec LV V1 mean P.9 mmHg MV mean P.4 mmHg Ao mean P.5 mmHg LV V1 mean: 78.3 cm/sec MV V2 VTI: 29.9 cm Ao V2 VTI: 30.1 cm LV V1 VTI: 24.6 cm AV (velocity ratio): 0.82 PA V2 max: 107.7 cm/sec PA V2 mean: 66.9 cm/sec ECHO/Echo Complete Interpretation Summary Normal LV size. Left ventricular systolic function is normal. The estimated ejection fraction is 60 %. Structurally normal valves. Ordering Physician: Hao Bird Referring Physician: Hao Membreno Performed By: Nathalia Villalta RDCS, RVT
--- NOTE | 2023-05-13 10:59 | US_ITS ---
INDICATION: thyroid nodule on CT EXAMINATION: Ultrasound US Thyroid (eg thyroid, parathyroid, parotid) TECHNIQUE: Smith scale and color doppler imaging was performed of the thyroid gland. COMPARISON: None. FINDINGS: RIGHT THYROID LOBE: 6.0 x 1.4 x 1.2 cm. Homogeneous echotexture with normal vascularity. [No thyroid nodules are present. LEFT THYROID LOBE: 4.5 x 1.8 x 1.5 cm. Homogeneous echotexture with normal vascularity. [Heterogeneous nodule identified within the lower pole of the left thyroid lobe measuring 1.9 x 1.3 x 1.6 cm with partial cystic changes and partial hypoechoic rim. The margins are irregular with peripheral nodular flow. ISTHMUS: 0.68 cm. No thyroid nodules are present. US/Thyroid IMPRESSION: Left lower thyroid nodule measuring 1.9 cm in maximum dimension and morphology favoring benign process. Note to be made that benign versus malignant nodule cannot be adequately determined without microscopic evaluation for documentation of stability. If indicated, follow-up ultrasound in 8-12 months to document stability. Electronically Signed: Lizzy Herring MD at 17:20 EDT ,
== END | disposition home or self-care (01) ==
PROVIDERS: PCP Family Medicine; Referring Provider Nurse Practitioner Family; Visit Provider Nurse Practitioner Family
DX: I48.0 Paroxysmal atrial fibrillation (principal); I10 Essential (primary) hypertension; E78.00 Pure hypercholesterolemia, unspecified; E04.1 Nontoxic single thyroid nodule
CPT/HCPCS: 76536; 93306

== ENCOUNTER → 2023-05-20 | Outpatient (CLI) | payer OTHER, SELFPAY ==
--- NOTE | 2023-05-20 08:34 | MRI_ITS ---
STUDY: MR PELVIS WITH T WITHOUT CONTRAST REASON FOR EXAM: Male, 63 years old. RECTAL CANCER TECHNIQUE: Standardized fat and water weighted pulse sequences were obtained in all 3 orthogonal planes, pre-and post contrast administration. IV 28ml clariscan was administered for the contrast portion of the examination. COMPARISON: None. FINDINGS: Normal urinary bladder. Normal visualized small intestine. Localized wall thickening/mass of the left rectal wall is seen extending from the 1:00 position to the 6:00 position on image 34 of series 3. Inferior border of the mass is 1.2 cm above the internal sphincter. There is extension (6 mm) into the adjacent mesorectal fat on image 33-34 of series 4. Following IV contrast, there is moderate homogenous enhancement of the mass (image 50 series 11). Round, heterogeneous lymph nodes in the mesorectal fat (at least 5 meet malignant criteria) for demonstrate moderate enhancement. The lymph nodes measure up to 9.6 mm x 7.1 mm (image 34 series 4). There are also lymph nodes along the superior rectal chain (total 3) with similar appearance measuring 7.5 x 8.7 mm (image 24 series 4). There is NOT clear peritoneal reflection involvement. There is no pelvic fluid. Normal visualized pelvic arteries. No bone marrow edema. No inguinal adenopathy. MRI/Pelvis W/WO Contrast IMPRESSION: 1. Low rectal mass (T3b) with at least 8 regional lymph nodes (N2b). Electronically Signed: Hever Forrester MD ([place]) at 15:41 EDT Reading Location ID and State: [id number] , Service support ,
== END | disposition home or self-care (01) ==
LOC: MRI 08:00
PROVIDERS: PCP Family Medicine; Referring Provider Internal Medicine Medical Oncology; Visit Provider Internal Medicine Medical Oncology
DX: C20 Malignant neoplasm of rectum (principal)
CPT/HCPCS: 72197; A9585

== ENCOUNTER 2023-05-28 06:07 | Outpatient (RCR) | payer OTHER, SELFPAY ==
[2023-04-14 00:46] VITALS: BMI 38.9
[2023-05-28 07:47] LABS: Prothrombin Time (Protime)PT. 22.7 SECONDS (11.7-14.9)
[2023-05-28 08:10] LABS: Creatinine, Serum 0.87 mg/dL (0.70-1.30); EST Glomerular Filtration Rate 94 mL/min (>60); Est Glom Filt Rate - Afr Amer 114 mL/min (>60)
== END 2023-05-28 18:00 | disposition home or self-care (01) ==
LOC: LAB 06:07
PROVIDERS: Student in an Organized Health Care Education/Training Program; Family Provider Family Medicine; PCP Family Medicine; Referring Provider Nurse Practitioner Family; Visit Provider Nurse Practitioner Family
DX: I48.0 Paroxysmal atrial fibrillation (principal); Z79.01 Long term (current) use 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s
CPT/HCPCS: 36415; 82565; 85610

== ENCOUNTER → 2023-06-22 | Outpatient (CLI) | payer OTHER, SELFPAY ==
--- NOTE | 2023-06-22 14:00 | ASPS_PTH ---
PATIENT: MIGUE STROUD LOC: [facility] U#:[id number] AGE/SX: 63/M ROOM: RE06/22/[address]: Dr. Alon Boland MD : 1960 BED: DIS: 06/22/2023 SPEC #: [id number] RECD: 06/22/23 15:20 STATUS: ASHLEY KALLIE #: [id number] OFE: 06/22/23 14:[address]: Alon Boland DEPT: CYTOLOGY RECD BY: Zohreh Mclaughlin ENTERED: 06/23/23 09:02 SP TYPE: ASPIRATION OTHR DR: Dr. 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 See comment. AM:anca 06/23/2023 COMMENT The [place] System for thyroid diagnostic categorization was used in the evaluation of this case. Per recommendations and a clinician-approved plan (a call was made to the referring doctor about the recommendation), genomic testing (Afirma) has been submitted. Results will be reported as an addendum and faxed to clinician. CYTOLOGY STUDY Slides are reviewed. CYTOLOGY GROSS Received are eight smears labeled with the patient's name and designated per the requisition as left thyroid nodule. Submitted for staining. / anca 06/22/2023 TC:? CPT: 56296 ADDENDUM ADDENDUM ADDENDUM ADDENDUM ADDENDUM ADDENDUM ADDENDUM 07/13/2023 10:09 ADDENDUM 07/13/2023 10:09 ADDENDUM 07/13/2023 10:09 ADDENDUM 07/13/2023 10:09 ADDENDUM 07/13/2023 10:09 AFIRMA RESULTS REPORT RESULTS INTERPRETATION: The result of this 1.9 cm [place] III nodule A is Afirma GSC Benign, which suggests a low risk of cancer of approximately 4%. Please see complete report in e-chart or EMR
== END | disposition home or self-care (01) ==
LOC: LABSPEC 15:48
PROVIDERS: PCP Family Medicine; Referring Provider Surgery; Visit Provider Surgery
DX: E04.1 Nontoxic single thyroid nodule (principal)
CPT/HCPCS: 88161; 88313

== ENCOUNTER 2023-07-12 09:20 | Emergency (ER) | payer OTHER, SELFPAY ==
[2023-07-12 09:21] VITALS: BP 140/70; PULSE 79; RESP 18; TEMP 36.3; O2SAT 95; BMI 40.4
[2023-07-12 10:31] LABS: Absolute Lymphocyte Count 0.24 X10^3/uL (0.83-4.51); Absolute Neutrophil Count 4.3 X10^3/uL (2.0-7.7); Basophil# 0.02 X10^3/uL; Basophil% 0.4 % (0-1); Eosinophil# 0.13 X10^3/uL; Eosinophils% 2.4 % (0-5); Hematocrit 34.9 % (40-54); Hemoglobin 11.6 g/dL (13.0-16.5); Lymphocyte # 0.24 X10^3/ul (0.83-4.51); Lymphocyte % 4.5 % (19-41); Mean Corp Hgb Conc 33.2 g/dL (32-36); Mean Corpuscular Volume 99.1 fL (80-94); Mean Platelet Vol. 8.9 fl (6.2-12.0); Monocyte# 0.72 X10^3/uL; Monocyte% 13.4 % (0-10); NRBC Flagged by Analyzer 0 % (0-5); Neutrophil # 4.25 X10^3/uL (2.7-7.7); Neutrophil % 78.7 % (47-70); POSITIVE DIFFERENTIAL YES; Platelet Count 200 K/mm3 (150-450); RBC Distribution Width CV 18.4 % (11.6-14.6); RBC Distribution Width SD 62.9 fl (35.1-43.9); Red Blood Count 3.52 M/mm3 (4.6-6.2); White Blood Count 5.4 K/mm3 (4.4-11.0)
[2023-07-12 10:33] LABS: Differential Indicated SCAN CRITERIA MET
[2023-07-12 10:46] LABS: AST(SGOT) 20 U/L (15-37); Alanine Aminotransfer ALT/SGPT 23 U/L (16-61); Albumin, Serum 3.1 g/dL (3.2-5.0); Alkaline Phosphatase 70 U/L (45-117); Anion Gap 4 (5-15); BUN 20 mg/dL (7-18); BUN/Creat Ratio 20.6 RATIO (10-20); Calcium,Total 8.7 mg/dL (8.5-10.1); Chloride 112 mmol/L (98-107); Creatinine, Serum 0.97 mg/dL (0.70-1.30); EST Glomerular Filtration Rate 82 mL/min (>60); Est Glom Filt Rate - Afr Amer 100 mL/min (>60); Estimated Creatinine Clearance 80.86 ml/min; Glucose 106 mg/dL (74-106); Potassium 3.7 mmol/L (3.5-5.1); Protein, Total 6.1 g/dL (6.4-8.2); Sodium Level 144 mmol/L (136-145)
[2023-07-12 10:50] LABS: Prothrombin Time (Protime)PT. 80.7 SECONDS (11.7-14.9)
--- NOTE | 2023-07-12 11:01 | EDS_ITS ---
HPI History of Present Illness Chief Complaint: GI Bleed Narrative Narrative: Patient is a 63-year-old male who is presenting to the ER today with chief complaint of a small sore that was caused from his dog at home yesterday that is continuously bleeding to left lower anterior lopez. Patient has multiple sores to his arms, scratches from his dog. There are no bite wounds. Patient has a lab at home, and is continuously climbing on the patient, and causing intermittent small sores. Patient is on Coumadin. Patient does have a history of rectal cancer and has intermittent rectal bleeding that is normal from what he was told. He just finished radiation and chemo recently, he is starting chemo again in 4 weeks. Patient states that since he started chemo, he has been having more bleeding. Patient had his INR checked on Thursday was 2.2. Patient is not diabetic. Patient has no acute care concern for infection. Patient's small puncture to the right lopez has stopped, the left anterior lopez puncture has been bleeding throughout the evening. Patient's been having bandages and pressure dressings on it. Patient woke up at 4:00 this morning and noted that there was blood on his sheets in bed because it continued to keep bleeding. He has a very small puncture wounds, no laceration, no skin tear. Patient has no other signs of bleeding, irritation, infections. No acute complaints. Not lightheaded, dizzy, no chest pain or shortness of breath patient states he has been having intermittent rectal bleeding, he does have rectal cancer. Patient was told this was going to be normal and expected after his chemoradiation and treatments from the rectal cancer. Patient does not have continuous rectal bleeding, it is intermittent and nothing significant today.. [facility] Medical History (Updated 07/12/23 @ 12:[address] 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 Non-smoker CORRINA (obstructive sleep apnea) Pulmonary embolism (06/10/18) Rectal cancer Rectal mass Sinusitis Thyroid disease Weight gain with edema Home Medications cholecalciferol (vitamin D3) 50 mcg (2,000 unit) capsule 2,000 unit PO DAILY supplement 06/16/19 [History Last Taken 06/16/19] furosemide 40 mg tablet 40 mg PO DAILY 06/16/19 [History Last Taken 06/16/19] benazepril 20 mg tablet 20 mg PO DAILY 01/09/21 [History Last Taken 05/05/23] sertraline 50 mg tablet 50 mg PO DAILY 01/09/21 [History Last Taken Unknown] omeprazole 20 mg capsule,delayed release 20 mg PO Q OTHER DAY PRN GERD 10/25/21 [History Last Taken Unknown] rosuvastatin 5 mg tablet (Crestor) 5 mg PO Q OTHER DAY #45 tabs 12/25/22 [Rx Last Taken Unknown] aspirin 81 mg tablet,delayed release (Enteric Coated Aspirin) 81 mg PO DAILY #90 tabs 01/11/23 [Rx Last Taken 05/04/23] diltiazem HCl 300 mg capsule,extended release 24 hr 300 mg PO DAILY #90 caps 04/30/23 [Rx Last Taken 05/05/23] ondansetron 8 mg disintegrating tablet 8 mg PO Q12H PRN nausea and vomiting #30 tabs 05/25/23 [Rx Last Taken Unknown] diclofenac sodium 1 % topical gel 2 g topical BID #100 grams 05/28/23 [Rx Last Taken Unknown] prochlorperazine maleate 10 mg tablet 10 mg PO Q6H PRN nausea and vomiting #30 tabs 05/28/23 [Rx Last Taken Unknown] potassium chloride 20 mEq tablet,extended release 20 meq PO DAILY #14 tabs 07/07/23 [Rx Last Taken Unknown] hydrocortisone acetate 25 mg rectal suppository 25 mg MI BID PRN itching 07/09/23 [History Last Taken Unknown] warfarin 3 mg tablet 3 mg PO QHS 07/09/23 [History Last Taken Unknown] warfarin 5 mg tablet 5 mg PO QHS 07/09/23 [History Last Taken Unknown] Allergy/AdvReac Type Severity Reaction Status Date / Time apixaban [From Eliquis] AdvReac Severe Pt formed Verified 07/12/23 09:24 PE's in spite of taking routinely simvastatin AdvReac Severe Myalgias Verified 07/12/23 09:24 doxycycline AdvReac Intermediate GI upset Verified 07/12/23 09:24 Family History Mother CAD (coronary artery disease) Diabetes Hypertension Hyperlipidemia Heart disease Father CVA (cerebral vascular accident) Surgical History History of appendectomy History of appendectomy History of cardiac catheterization History of colonoscopy (~06/2016) History of hip surgery History of left heart catheterization (10/21/18) History of left inguinal hernia repair Social History Smoking Status: Never smoker alcohol intake: never substance use type: does not use caffeine: Yes Type: carbonated beverages Number of servings: 1 ROS ROS ED ROS Narrative REVIEW OF SYSTEMS: Unless otherwise stated in this report the patient's positive and negative responses for review of systems for constitutional, eyes, ENT, cardiovascular, respiratory, gastrointestinal, neurological, , musculoskeletal, and integument systems and related systems to the presenting problem are either stated in the history of present illness or were not pertinent or were negative for the symptoms and/or complaints related to the presenting medical problem. EXAM Physical Exam Narrative Exam Narrative: Vital signs reviewed and patient is not hypoxic. General: The patient appears well and in no apparent distress. Patient is resting comfortably on cart. Not toxic, lethargic, or listless. Skin: Warm, dry, no pallor noted. There is no rash noted. Expanding or developing hematoma. No laceration or skin tear. A very tiny pinpoint puncture wound to the right anterior lopez have stopped bleeding. They do have very slow venous bleeding, nothing pulsatile. Noted patient has very small pinpoint puncture wound to the left anterior lopez Head: Normocephalic, atraumatic Eye: Normal conjunctiva, no drainage, EOMI. PERRL. Ears, Nose, Mouth, and Throat: oral mucosa is moist. Nares patent. Mouth without vesicles. Cardiovascular: Regular Rate and Rhythm, no murmurs, gallops, or rubs Respiratory: Patient is in no distress, no accessory muscle use, lungs are clear to auscultation, no wheezing, rales or rhonchi Back: non-tender, no CVA tenderness bilaterally to percussion. NO CTLS midline or paraspinal tenderness to palpation. GI: Soft, obese, no tenderness to palpation, no masses appreciated. No rebound, guarding, or rigidity noted. Musculoskeletal: The patient has full range of motion of all extremities and joints with no difficulty. Patient has no motor, no sensory deficits. Neurological: A&O x4, normal speech, no focal neurological deficits. Psychiatric: Cooperative Const Vital Signs: 07/12/23 09:21 07/12/23 11:44 Temperature 97.3 F L Temperature Source Temporal Pulse Rate 79 70 Respiratory Rate 18 16 Blood Pressure 140/70 H 127/76 H Blood Pressure Mean 93 93 Pulse Ox 95 96 Oxygen Delivery Method Room Air Room Air MDM MDM MDM Narrative Medical decision making narrative: Patient initially had a Surgicel placed on the small tiny pinpoint area that was bleeding to the left anterior lopez over a varicosity. A pressure dressing was placed for 1 hour, the bleeding had not stopped. Patient then had a second Surgicel placed along with 3 cc of 1% lidocaine with epinephrine. Pressure was held by electromechanical inspector for 25 minutes, the bleeding has stopped. Telfa and dry dressing was placed. Patient's CBC shows no significant findings, platelets are 200. Patient will hold Coumadin today and tomorrow, follow-up with oncology for outpatient INR order on Thursday and then continue dosing as recommended. Patient's been very pleasant to take care of, no questions at discharge. Patient was given a dose of vitamin K IV 10mg in the ER. History & Record Review Discussion w/independent historian: Patient Lab Data Attestation: I reviewed the patient's lab results. Labs: Laboratory Results - last 24 hr 07/12/23 10:15 WBC 5.4 RBC 3.52 L Hgb 11.6 L Hct 34.9 L MCV 99.1 H MCH 33.0 H MCHC 33.2 RDW Std Deviation 62.9 H RDW Coeff of [place] 18.4 H Plt Count 200 MPV 8.9 Immature Gran % (Auto) 0.600 Neut % (Auto) 78.7 H Lymph % (Auto) 4.5 L [place] % (Auto) 13.4 H Eos % (Auto) 2.4 Baso % (Auto) 0.4 Absolute Neuts (auto) 4.3 Absolute Lymphs (auto) 0.24 L Nucleated RBC % 0 Differential Comment SCANNED PT 80.7 H INR 9.8 H* Sodium 144 Potassium 3.7 Chloride 112 H Carbon Dioxide 28.0 Anion Gap 4 L BUN 20 H Creatinine 0.97 Estim Creat Clear Calc 80.86 Est GFR (MDRD) Af Amer 100 Est GFR (MDRD) Non-Af 82 BUN/Creatinine Ratio 20.6 H Glucose 106 Calcium 8.7 Total Bilirubin 0.60 AST 20 ALT 23 Alkaline Phosphatase 70 Total Protein 6.1 L Albumin 3.1 L Globulin 3.0 Albumin/Globulin Ratio 1.0 Discharge Plan Triage Chief Complaint: GI Bleed ED Provider: Dale Rosales Dx/Rx/DC Orders Clinical Impression: Bleeding, Supratherapeutic INR Prescriptions: No Action benazepril 20 mg tablet 20 mg PO DAILY Patient Comments: TAKE 1 TABLET BY MOUTH EVERY DAY sertraline 50 mg tablet 50 mg PO DAILY ondansetron 8 mg tablet,disintegrating 8 mg PO Q12H PRN (Reason: nausea and vomiting) Qty: 30 0RF prochlorperazine maleate 10 mg tablet 10 mg PO Q6H PRN (Reason: nausea and vomiting) Qty: 30 2RF diclofenac sodium 1 % gel 2 g topical BID Qty: 100 2RF Rx Instructions: apply to hands and feet twice daily potassium chloride 20 mEq tablet extended release 20 meq PO DAILY Qty: 14 0RF cholecalciferol (vitamin D3) 2,000 UNIT capsule 2,000 unit PO DAILY omeprazole 20 mg capsule,delayed release(DR/EC) 20 mg PO Q OTHER DAY PRN (Reason: GERD) hydrocortisone acetate 25 mg suppository 25 mg MI BID PRN (Reason: itching) Rx Instructions: rectal insertion twice per day prn warfarin 3 mg tablet 3 mg PO QHS Protocol: Dose Management Condition: Thursday Dose/Route: 8 mg Instruction: 1 x 3 mg tablet, 1 x 5 mg tablet Condition: Thursday Dose/Route: 8 mg Instruction: 1 x 3 mg tablet, 1 x 5 mg tablet Condition: Thursday Dose/Route: 8 mg Instruction: 1 x 3 mg tablet, 1 x 5 mg tablet Condition: Thursday Dose/Route: 8 mg Instruction: 1 x 3 mg tablet, 1 x 5 mg tablet Condition: Dose/Route: 8 mg Instruction: 1 x 3 mg tablet, 1 x 5 mg tablet Condition: Thursday Dose/Route: 8 mg Instruction: 1 x 3 mg tablet, 1 x 5 mg tablet Condition: Thursday Dose/Route: 8 mg Instruction: 1 x 3 mg tablet, 1 x 5 mg tablet Protocol Text: Adjustment Start Date: 05/28/23 INR Value: 2.0 INR Date: 05/28/23 Recheck Date: 06/27/23 Patient Comments: STOPPING 2 DAYS BEFORE SCOPE Rx Instructions: Dose change to 8mg daily: needs 5mg +3mg tabs warfarin 5 mg tablet 5 mg PO QHS Protocol: Dose Management Condition: Thursday Dose/Route: 8 mg Instruction: 1 x 3 mg tablet, 1 x 5 mg tablet Condition: Thursday Dose/Route: 8 mg Instruction: 1 x 3 mg tablet, 1 x 5 mg tablet Condition: Thursday Dose/Route: 8 mg Instruction: 1 x 3 mg tablet, 1 x 5 mg tablet Condition: Thursday Dose/Route: 8 mg Instruction: 1 x 3 mg tablet, 1 x 5 mg tablet Condition: Dose/Route: 8 mg Instruction: 1 x 3 mg tablet, 1 x 5 mg tablet Condition: Thursday Dose/Route: 8 mg Instruction: 1 x 3 mg tablet, 1 x 5 mg tablet Condition: Thursday Dose/Route: 8 mg Instruction: 1 x 3 mg tablet, 1 x 5 mg tablet Protocol Text: Adjustment Start Date: 05/28/23 INR Value: 2.0 INR Date: 05/28/23 Recheck Date: 06/27/23 Patient Comments: STOPPING 2 DAYS BEFORE SCOPE Rx Instructions: Dose change to 8mg daily so needs 5mg + 3mg tabs furosemide 40 mg tablet 40 mg PO DAILY rosuvastatin [Crestor] 5 mg tablet 5 mg PO Q OTHER DAY Qty: 45 3RF aspirin [Enteric Coated Aspirin] 81 mg tablet,delayed release (DR/EC) 81 mg PO DAILY Qty: 90 3RF diltiazem HCl 300 mg capsule,extended release 24hr 300 mg PO DAILY Qty: 90 3RF Primary Care Provider: Hao Membreno Referrals: Hao Membreno MD [Primary Care Provider] -
[2023-07-12 11:03] LABS: International Normalized Ratio 9.8
[2023-07-12 11:18] LABS: Differential Comment SCANNED
[2023-07-12] MEDS: Phytonadione (Vit K) 10 MG in 0.9% Normal Saline (50mL Bag) 50 ML 150 MG IV (11:34)
[2023-07-12 11:44] VITALS: BP 127/76; PULSE 70; RESP 16; O2SAT 96
== END 2023-07-12 13:29 | disposition home or self-care (01) ==
PROVIDERS: Emergency Provider Emergency Medicine; PCP Family Medicine; Visit Provider Emergency Medicine
DX: K92.2 Gastrointestinal hemorrhage, unspecified (principal); I48.91 Unspecified atrial fibrillation; R79.1 Abnormal coagulation profile; Z79.01 Long term (current) use 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s; Z86.718 Personal history of other venous thrombosis and embolism; Z86.16 Personal history of COVID-19; Z86.711 Personal history of pulmonary embolism
CPT/HCPCS: 80053; 85025; 85610; 96365; 99284; J7050; A4216; J3490

== ENCOUNTER 2023-07-14 09:21 | Outpatient (RCR) | payer OTHER, SELFPAY ==
[2023-06-14 02:48] VITALS: BMI 38.9
[2023-07-14 09:52] LABS: International Normalized Ratio 1.3; Prothrombin Time (Protime)PT. 16.4 SECONDS (11.7-14.9)
== END 2023-07-14 18:00 | disposition home or self-care (01) ==
LOC: LAB 09:21
PROVIDERS: Physician Assistant; Family Provider Family Medicine; PCP Family Medicine; Referring Provider Nurse Practitioner Family; Visit Provider Nurse Practitioner Family
DX: I48.0 Paroxysmal atrial fibrillation (principal); Z79.01 Long term (current) use 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s
CPT/HCPCS: 36415; 85610

== ENCOUNTER 2023-07-15 15:02 | Inpatient (IN) | payer OTHER, SELFPAY ==
[2023-07-15 15:02] VITALS: BP 126/69; PULSE 90; RESP 18; TEMP 35.7; O2SAT 96; BMI 39.9
--- NOTE | 2023-07-15 15:21 | CT_ITS ---
STUDY: CT ABDOMEN AND PELVIS WITH CONTRAST REASON FOR EXAM: Male, 63 years old. abdominal pain RADIATION DOSAGE (If Supplied By Facility): CTDIvol = ( 20.39 ) mGy, DLP = ( 1389.93 ) mGycm TECHNIQUE: Transaxial images were obtained from the dome of the diaphragm to the symphysis pubis without oral contrast. IV 100mL Isovue-300 was administered. Sagittal and coronal images were reconstructed. Individualized dose optimization techniques were used for this CT. COMPARISON: 05/05/2023 FINDINGS: The visualized lung bases are unremarkable. The visualized portions of the heart are within normal limits. Normal liver. The gallbladder is contracted. Normal spleen. Normal pancreas. Normal bilateral adrenal glands. Normal right kidney. Normal left kidney. Normal visualized stomach. Loop of distal ileum in the right upper quadrant demonstrates circumferential wall thickening and stranding of surrounding fat suggestive of enteritis. No loculated fluid collection to suggest of a abscess. No pneumoperitoneum to suggest perforation. There are multiple colonic diverticula consistent with diverticulosis. Circumferential wall thickening of the rectum worrisome for proctitis or mass. Clinical correlation is recommended. Normal abdominal aorta. Normal inferior vena cava. Normal retroperitoneum. Normal urinary bladder. There are prostatic calcifications. Small amount of free fluid in the pelvis and the left paracolic gutter. There is a small umbilical hernia containing fat. Small right inguinal hernia containing fat and fluid. Normal osseous structures. CT/Abdomen/Pelvis W IV Cont ONLY IMPRESSION: 1. Suspect enteritis of a loop of distal ileum in the right upper quadrant with a small amount of free fluid suggestive of peritonitis. No abscess or perforation. 2. Sigmoid diverticulosis without diverticulitis. 3. Possible proctitis or rectal mass. Clinical correlation is recommended. 4. Small right inguinal hernia containing fat and fluid. Electronically Signed: Leon Son MD at 17:35 EDT ,
--- NOTE | 2023-07-15 15:21 | ED.VIS.GI ---
HPI HPI - GI History of Present Illness Chief Complaint: Abd Pain Detail of Chief Complaint: Abdominal pain Informant: patient Narrative Narrative: Patient presents to the emergency department with complaint of abdominal pain that started yesterday. Patient states the pain came on pretty quickly. He has had no fevers or chills or sweats. Pain mostly left-sided. Patient states that a little over a week ago he finished radiation chemotherapy for history of rectal cancer. Patient on Coumadin for history of A-fib. He denies urinary symptoms. He has had prior history of kidney stone and diverticulitis. Patient has had a appendectomy. Patient denies any blood in his stool or black tarry stools. He has had some diarrhea. 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 Non-smoker CORRINA (obstructive sleep apnea) Pulmonary embolism (06/10/18) Rectal cancer Rectal mass Sinusitis Thyroid disease Weight gain with edema Home Medications cholecalciferol (vitamin D3) 50 mcg (2,000 unit) capsule 2,000 unit PO DAILY supplement 06/16/19 [History Last Taken 06/16/19] furosemide 40 mg tablet 40 mg PO DAILY 06/16/19 [History Last Taken 06/16/19] benazepril 20 mg tablet 20 mg PO DAILY 01/09/21 [History Last Taken 05/05/23] sertraline 50 mg tablet 50 mg PO DAILY 01/09/21 [History Last Taken Unknown] omeprazole 20 mg capsule,delayed release 20 mg PO Q OTHER DAY PRN GERD 10/25/21 [History Last Taken Unknown] rosuvastatin 5 mg tablet (Crestor) 5 mg PO Q OTHER DAY #45 tabs 12/25/22 [Rx Last Taken Unknown] aspirin 81 mg tablet,delayed release (Enteric Coated Aspirin) 81 mg PO DAILY #90 tabs 01/11/23 [Rx Last Taken 05/04/23] diltiazem HCl 300 mg capsule,extended release 24 hr 300 mg PO DAILY #90 caps 04/30/23 [Rx Last Taken 05/05/23] ondansetron 8 mg disintegrating tablet 8 mg PO Q12H PRN nausea and vomiting #30 tabs 05/25/23 [Rx Last Taken Unknown] diclofenac sodium 1 % topical gel 2 g topical BID #100 grams 05/28/23 [Rx Last Taken Unknown] prochlorperazine maleate 10 mg tablet 10 mg PO Q6H PRN nausea and vomiting #30 tabs 05/28/23 [Rx Last Taken Unknown] potassium chloride 20 mEq tablet,extended release 20 meq PO DAILY #14 tabs 07/07/23 [Rx Last Taken Unknown] hydrocortisone acetate 25 mg rectal suppository 25 mg LA BID PRN itching 07/09/23 [History Last Taken Unknown] warfarin 3 mg tablet 3 mg PO QHS 07/09/23 [History Last Taken Unknown] warfarin 5 mg tablet 5 mg PO QHS 07/09/23 [History Last Taken Unknown] Allergy/AdvReac Type Severity Reaction Status Date / Time apixaban [From [facility]] AdvReac Severe Pt formed Verified 07/15/23 15:04 PE's in spite of taking routinely simvastatin AdvReac Severe Myalgias Verified 07/15/23 15:04 doxycycline AdvReac Intermediate GI upset Verified 07/15/23 15:04 Family History Mother CAD (coronary artery disease) Diabetes Hypertension Hyperlipidemia Heart disease Father CVA (cerebral vascular accident) Surgical History History of appendectomy History of appendectomy History of cardiac catheterization History of colonoscopy (~06/2016) History of hip surgery History of left heart catheterization (10/21/18) History of left inguinal hernia repair Social History Smoking Status: Never smoker alcohol intake: never substance use type: does not use caffeine: Yes Type: carbonated beverages Number of servings: 1 ROS ROS ED Review of Systems ROS Unobtainable: other Constitutional Constitutional ED: Reports lethargy; Denies chills, fever(s), sweats or weight loss Eyes Eyes: Denies blurry vision, change in vision or diplopia ENT ENT ED: Denies rhinorrhea or sore throat Cardiovascular Cardiovascular: Denies chest pain, orthopnea or racing heartbeat Respiratory/Chest Respiratory/Chest: Denies cough, dyspnea, dyspnea on exertion, orthopnea or sputum Gastrointestinal Gastrointestinal: Reports abdominal pain and diarrhea; Denies nausea or vomiting Genitourinary Genitourinary ED: Denies dysuria, hematuria or urinary frequency Musculoskeletal Musculoskeletal: Denies arthralgias, back pain, myalgias or neck pain Integumentary Denies abscess, Abrasions or rash Neurologic Neurologic: Denies headache(s) or weakness Psychiatric Psychiatric: Denies anxiety, depression or suicidal thoughts Endocrine Endocrinology: Denies polydipsia, polyphagia or polyuria Hematologic/Lymphatic Hematologic/Lymphatic: Denies easy bleeding, easy bruising or lymphadenopathy Allergic/Immunologic Allergic/Immunologic ED: Denies mouth swelling, tongue swelling or urticaria EXAM Physical Exam Const Vital Signs: 07/15/23 15:02 07/15/23 16:18 07/15/23 16:18 Temperature 96.2 F L 98.2 F Temperature Source Temporal Oral Pulse Rate 90 82 81 Respiratory Rate 18 18 18 Blood Pressure 126/69 H 124/57 H 124/57 H Blood Pressure Mean 88 79 79 Pulse Ox 96 96 95 Oxygen Delivery Method Room Air Room Air Room Air Positive well nourished and well developed General Appearance ED: well developed and NAD HEENT Reports TM's clear and moist mucous membranes normocephalic and atraumatic; Negative for trauma or tenderness Tympanic Membrane ED: Yes TM's clear Eyes PERRL and EOMs intact bilaterally General Eye ED: Negative for pale conjunctiva or scleral icterus Neck no lymphadenopathy, supple and no JVD General: Negative for tenderness Chest Wall inspection of chest normal and palpation of chest normal Chest: Negative for tenderness Resp normal respiratory effort and clear to auscultation bilaterally Effort and Inspection: Negative for respiratory distress or pain with movement Auscultation: Negative for rhonchi, wheezes or diminished lung sounds Cardio regular rate, regular rhythm, S1 normal heart sound, S2 normal heart sound and no murmurs Peripheral Pulses: pulses 2+ throughout GI normal to inspection, nondistended, normoactive bowel sounds, soft to palpation, non-distended and no masses GI Narrative: Tenderness palpation over left lower quadrant with some guarding. There is no rebound, rigidity, or. Signs. No mass palpated. Back/Spine no CVA tenderness and no thoracic nor lumbar tenderness Extremity normal to inspection General Extremety ED: Negative for edema General Extremity: Negative for edema Neuro oriented x3, CN's II-XII intact bilaterally, no sensory deficits noted and gait normal Sensorium / Orientation: awake, alert, oriented to person, oriented to place and oriented to time Motor Exam: strength 5/5 throughout and strength abnormal Psych mental status grossly normal Skin no rashes or lesions noted and no wounds MDM MDM MDM Narrative Medical decision making narrative: Patient presents with left-sided abdominal pain as her yesterday. In the differential would be kidney stone versus diverticulitis versus bowel obstruction or bowel perforation. IV line established. CBC with differential obtained showed a white count 7.8 with hemoglobin of 12 and platelet count of 204. Chemistries unremarkable. Lactate was normal at 1.4. LFTs were unremarkable. Lipase normal at 26. Urinalysis unremarkable for action. CT scan the pelvis with IV contrast showed an area in the right upper quadrant of active enteritis. Patient also noted to have a mass versus proctitis in the rectum and he does certainly have a history of a rectal mass. No other acute process noted. Patient was medicated with morphine and Zofran initially and required a second dose of morphine. At this point etiology of his pain is unclear. We will discuss case with general surgeon on-call. I did discuss case with Dr. Kwon who postulated the enteritis and peritonitis may be related either to chemo or radiation. Recommended admission for IV fluids and antibiotics. Will discuss case with hospitalist to evaluate patient for admission. Lab Data Attestation: I reviewed the patient's lab results. Labs: Laboratory Results - last 24 hr 07/15/23 07/15/23 07/15/23 15:50 16:00 17:10 WBC 7.8 RBC 3.75 L Hgb 12.3 L Hct 36.9 L MCV 98.4 H MCH 32.8 H MCHC 33.3 RDW Std Deviation 64.7 H RDW Coeff of [place] 18.8 H Plt Count 204 MPV 9.6 Immature Gran % (Auto) 0.600 Neut % (Auto) 80.7 H Lymph % (Auto) 5.4 L [place] % (Auto) 11.1 H Eos % (Auto) 1.9 Baso % (Auto) 0.3 Absolute Neuts (auto) 6.3 Absolute Lymphs (auto) 0.42 L Nucleated RBC % 0 Differential Comment SCANNED PT 18.3 H INR 1.5 Sodium 141 Potassium 3.7 Chloride 108 H Carbon Dioxide 25.0 Anion Gap 8 BUN 20 H Creatinine 0.96 Estim Creat Clear Calc 81.71 Est GFR (MDRD) Af Amer 101 Est GFR (MDRD) Non-Af 83 BUN/Creatinine Ratio 20.8 H Glucose 114 H Lactic Acid 1.4 Calcium 8.8 Total Bilirubin 0.90 AST 21 ALT 23 Alkaline Phosphatase 76 Total Protein 6.3 L Albumin 3.1 L Globulin 3.2 Albumin/Globulin Ratio 1.0 Lipase 26 Urine Color Yellow Urine Clarity Clear Urine pH 6.0 Ur Specific [place] 1.015 Urine Protein 15 H Urine Glucose (UA) Normal Urine Ketones Negative Urine Occult Blood Negative Urine Nitrite Negative Urine Bilirubin Negative Urine Urobilinogen 4 H Ur Leukocyte Esterase 25 H Urine RBC 0 SEEN Urine WBC 0 SEEN Ur Squamous Epith Cells 0-5 SEEN Calcium Oxalate Crystal 1+ Urine Bacteria 0 SEEN Urine Mucus 0 SEEN Radiography Diagnostic Testing: Clinical Impression(s) from Imaging Studies Abdomen/Pelvis CT 07/15/23 15:21 IMPRESSION: 1. Suspect enteritis of a loop of distal ileum in the right upper quadrant with a small amount of free fluid suggestive of peritonitis. No abscess or perforation. 2. Sigmoid diverticulosis without diverticulitis. 3. Possible proctitis or rectal mass. Clinical correlation is recommended. 4. Small right inguinal hernia containing fat and fluid. Electronically Signed: Leon Son MD at 17:35 EDT , Discharge Plan Triage Chief Complaint: Abd Pain ED Provider: Ildefonso Rockwell Dx/Rx/DC Orders Clinical Impression: History of rectal cancer, Enteritis, Abdominal pain Prescriptions: No Action benazepril 20 mg tablet 20 mg PO DAILY Patient Comments: TAKE 1 TABLET BY MOUTH EVERY DAY sertraline 50 mg tablet 50 mg PO DAILY ondansetron 8 mg tablet,disintegrating 8 mg PO Q12H PRN (Reason: nausea and vomiting) Qty: 30 0RF prochlorperazine maleate 10 mg tablet 10 mg PO Q6H PRN (Reason: nausea and vomiting) Qty: 30 2RF diclofenac sodium 1 % gel 2 g topical BID Qty: 100 2RF Rx Instructions: apply to hands and feet twice daily potassium chloride 20 mEq tablet extended release 20 meq PO DAILY Qty: 14 0RF cholecalciferol (vitamin D3) 2,000 UNIT capsule 2,000 unit PO DAILY omeprazole 20 mg capsule,delayed release(DR/EC) 20 mg PO Q OTHER DAY PRN (Reason: GERD) hydrocortisone acetate 25 mg suppository 25 mg LA BID PRN (Reason: itching) Rx Instructions: rectal insertion twice per day prn warfarin 3 mg tablet 3 mg PO QHS Protocol: Dose Management Condition: Thursday Dose/Route: 0 mg Instruction: 0 tablets Condition: Thursday Dose/Route: 0 mg Instruction: 0 tablets Condition: Thursday Dose/Route: 6 mg Instruction: 2 x 3 mg tablets Condition: Thursday Dose/Route: 6 mg Instruction: 2 x 3 mg tablets Condition: Dose/Route: 6 mg Instruction: 2 x 3 mg tablets Condition: Thursday Dose/Route: 0 mg Instruction: 0 tablets Condition: Thursday Dose/Route: 0 mg Instruction: 0 tablets Protocol Text: Adjustment Start Date: Thursday07/14/23 INR Value: 1.3 INR Date: 07/14/23 Recheck Date: 07/27/23 Patient Comments: STOPPING 2 DAYS BEFORE SCOPE- on hold Rx Instructions: Dose change to 8mg daily: needs 5mg +3mg tabs warfarin 5 mg tablet 5 mg PO QHS Protocol: Dose Management Condition: Thursday Dose/Route: 0 mg Instruction: 0 tablets Condition: Thursday Dose/Route: 0 mg Instruction: 0 tablets Condition: Thursday Dose/Route: 6 mg Instruction: 2 x 3 mg tablets Condition: Thursday Dose/Route: 6 mg Instruction: 2 x 3 mg tablets Condition: Dose/Route: 6 mg Instruction: 2 x 3 mg tablets Condition: Thursday Dose/Route: 0 mg Instruction: 0 tablets Condition: Thursday Dose/Route: 0 mg Instruction: 0 tablets Protocol Text: Adjustment Start Date: Thursday07/14/23 INR Value: 1.3 INR Date: 07/14/23 Recheck Date: 07/27/23 Patient Comments: STOPPING 2 DAYS BEFORE SCOPE- on hold Rx Instructions: Dose change to 8mg daily so needs 5mg + 3mg tabs furosemide 40 mg tablet 40 mg PO DAILY rosuvastatin [Crestor] 5 mg tablet 5 mg PO Q OTHER DAY Qty: 45 3RF aspirin [Enteric Coated Aspirin] 81 mg tablet,delayed release (DR/EC) 81 mg PO DAILY Qty: 90 3RF diltiazem HCl 300 mg capsule,extended release 24hr 300 mg PO DAILY Qty: 90 3RF Primary Care Provider: Hao Membreno Referrals: Hao Membreno MD [Primary Care Provider] - Disposition Disposition: Acute Care Hospital [facility]
[2023-07-15] MEDS: Morphine 4 MG/ML Syringe IV ×2 (15:35→18:25)
[2023-07-15] MEDS: 0.9% Normal Saline (1000mL) 1,000 ML 125 ML IV ×2 (15:35→21:06)
[2023-07-15] MEDS: Ondansetron 4 MG/2 ML Vial IV (15:35)
[2023-07-15 16:16] LABS: Absolute Lymphocyte Count 0.42 X10^3/uL (0.83-4.51); Absolute Neutrophil Count 6.3 X10^3/uL (2.0-7.7); Basophil# 0.02 X10^3/uL; Basophil% 0.3 % (0-1); Eosinophil# 0.15 X10^3/uL; Eosinophils% 1.9 % (0-5); Hematocrit 36.9 % (40-54); Hemoglobin 12.3 g/dL (13.0-16.5); Lymphocyte # 0.42 X10^3/ul (0.83-4.51); Lymphocyte % 5.4 % (19-41); Mean Corp Hgb Conc 33.3 g/dL (32-36); Mean Corpuscular Hgb 32.8 pg (27.0-32.0); Mean Corpuscular Volume 98.4 fL (80-94); Mean Platelet Vol. 9.6 fl (6.2-12.0); Monocyte# 0.87 X10^3/uL; Monocyte% 11.1 % (0-10); NRBC Flagged by Analyzer 0 % (0-5); Neutrophil # 6.33 X10^3/uL (2.7-7.7); Neutrophil % 80.7 % (47-70); POSITIVE COUNT YES; POSITIVE DIFFERENTIAL YES; Platelet Count 204 K/mm3 (150-450); RBC Distribution Width CV 18.8 % (11.6-14.6); RBC Distribution Width SD 64.7 fl (35.1-43.9); Red Blood Count 3.75 M/mm3 (4.6-6.2); White Blood Count 7.8 K/mm3 (4.4-11.0)
[2023-07-15 16:18] VITALS: BP 124/57; PULSE 81; PULSE 82; RESP 18; TEMP 36.8; O2SAT 95; O2SAT 96
[2023-07-15 16:24] LABS: International Normalized Ratio 1.5; Prothrombin Time (Protime)PT. 18.3 SECONDS (11.7-14.9)
[2023-07-15 16:27] LABS: Differential Indicated SCAN CRITERIA MET
[2023-07-15 16:33] LABS: AST(SGOT) 21 U/L (15-37); Alanine Aminotransfer ALT/SGPT 23 U/L (16-61); Albumin, Serum 3.1 g/dL (3.2-5.0); Alkaline Phosphatase 76 U/L (45-117); Anion Gap 8 (5-15); BUN 20 mg/dL (7-18); BUN/Creat Ratio 20.8 RATIO (10-20); Calcium,Total 8.8 mg/dL (8.5-10.1); Chloride 108 mmol/L (98-107); Creatinine, Serum 0.96 mg/dL (0.70-1.30); EST Glomerular Filtration Rate 83 mL/min (>60); Est Glom Filt Rate - Afr Amer 101 mL/min (>60); Estimated Creatinine Clearance 81.71 ml/min; Globulin 3.2 g/dL (2.2-4.2); Glucose 114 mg/dL (74-106); Lipase 26 U/L (13-75); Potassium 3.7 mmol/L (3.5-5.1); Protein, Total 6.3 g/dL (6.4-8.2); Sodium Level 141 mmol/L (136-145)
[2023-07-15 16:37] LABS: Differential Comment SCANNED
[2023-07-15 17:13] LABS: Lactic Acid 1.4 mmol/L (0.4-1.9)
[2023-07-15 17:25] LABS: Bacteria 0 SEEN /hpf (None Seen); Mucous, Urine 0 SEEN /hpf (<or=2+); Red Blood Cells-Urine 0 SEEN /hpf (0-5); White Blood Cells 0 SEEN /hpf (0-5)
[2023-07-15 17:36] LABS: Color, Urine Yellow (Yellow); Glucose, Dipstick Normal (Normal); Ketone-Dipstick Negative (Negative); Leukocyte Esterase-Dipstick 25 /ul (Negative); Nitrite-Dipstick Negative (Negative); Occult Blood-Urine Negative /ul (Negative); Protein-Dipstick 15 mg/dl (Negative); Specific Gravity, Urine 1.015 (1.002-1.030); Urine Bilirubin Dipstick Negative (Negative); Urine Clarity Clear (Clear); Urine Urobilinogen 4 mg/dl (Normal)
[2023-07-15 17:45] LABS: Calcium Oxalate Crystals Ur 1+ /hpf (<or=2+); Squamous Epithelial Cells - UA 0-5 SEEN /hpf (0-5)
[2023-07-15 18:00] VITALS: BP 122/57; PULSE 79; RESP 18; O2SAT 99
[2023-07-15] MEDS: Piperacil/Tazobactam 4.5 GM in 0.9% Normal Saline (100mL MB+) 100 ML IV (18:49)
--- NOTE | 2023-07-15 19:46 | PCM.HP.STD ---
HPI - General General Date of Admission: 07/15/23 Date of Service: 07/15/23 Chief Complaint: Abdominal pain HPI Narrative MIGUE STROUD, is a 63 M who presents to the emergency room at [facility] for evaluation of abdominal pain which started yesterday afternoon, he states that most of the abdominal pain is on the right side and also left middle abdomen to left lower abdomen. Patient has a history of diarrhea due to recent radiation treatment for rectal cancer, he underwent chemotherapy last Thursday, he is on Xeloda, his oncologist is Dr. Quesada. Patient denies any fever or chills. Work-up in the emergency room included a CBC which showed a normal white count, hemoglobin was 12.3, chemistry profile showed a BUN of 20, urinalysis was unremarkable, INR was 1.4. CT of the abdomen pelvis was performed which showed suspicious for enteritis of a loop of distal ileum in the right upper quadrant with a small amount of free fluid suggestive of peritonitis, no abscess or perforation was noted, there was noted to be possible proctitis or rectal mass. Small right inguinal hernia was noted. This case was discussed with Dr. Kwon of general surgery, he felt that the patient could possibly have typhlitis or radiation inflammation. Patient was given IV Zosyn in the emergency room, he will be admitted to [facility], given IV fluids, he will be placed on clear liquids and he will be seen in consultation by general surgery. 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 Non-smoker CORRINA (obstructive sleep apnea) Pulmonary embolism (06/10/18) Rectal cancer Rectal mass Sinusitis Thyroid disease Weight gain with edema Home Medications cholecalciferol (vitamin D3) 50 mcg (2,000 unit) capsule 2,000 unit PO DAILY supplement 06/16/19 [History Last Taken 06/16/19] furosemide 40 mg tablet 40 mg PO DAILY diuretic 06/16/19 [History Last Taken 06/16/19] benazepril 20 mg tablet 20 mg PO DAILY blood pressure 01/09/21 [History Last Taken 05/05/23] sertraline 50 mg tablet 50 mg PO DAILY depression 01/09/21 [History Last Taken Unknown] omeprazole 20 mg capsule,delayed release 20 mg PO Q OTHER DAY PRN GERD 10/25/21 [History Last Taken Unknown] rosuvastatin 5 mg tablet (Crestor) 5 mg PO Q OTHER DAY cholesterol #45 tabs 12/25/22 [Rx Last Taken Unknown] aspirin 81 mg tablet,delayed release (Enteric Coated Aspirin) 81 mg PO DAILY heart #90 tabs 01/11/23 [Rx Last Taken 05/04/23] diltiazem HCl 300 mg capsule,extended release 24 hr 300 mg PO DAILY heart #90 caps 04/30/23 [Rx Last Taken 05/05/23] potassium chloride 20 mEq tablet,extended release 20 meq PO DAILY low potassium #14 tabs 07/07/23 [Rx Last Taken Unknown] warfarin 3 mg tablet 3 mg PO QHS blood thinner 07/09/23 [History Last Taken Unknown] Allergy/AdvReac Type Severity Reaction Status Date / Time apixaban [From Eliquis] AdvReac Severe Pt formed Verified 07/15/23 15:04 PE's in spite of taking routinely simvastatin AdvReac Severe Myalgias Verified 07/15/23 15:04 doxycycline AdvReac Intermediate GI upset Verified 07/15/23 15:04 Family History Mother CAD (coronary artery disease) Diabetes Hypertension Hyperlipidemia Heart disease Father CVA (cerebral vascular accident) Surgical History History of appendectomy History of appendectomy History of cardiac catheterization History of colonoscopy (~06/2016) History of hip surgery History of left heart catheterization (10/21/18) History of left inguinal hernia repair Social History Smoking Status: Never smoker alcohol intake: never substance use type: does not use caffeine: Yes Type: carbonated beverages Number of servings: 1 ROS Constitutional Constitutional: Denies anorexia, change in weight, chills, fatigue, fever(s), malaise, night sweats or weakness Eyes Eyes: Denies blurry vision, change in vision, discharge from eye(s) or eye pain Cardiovascular Cardiovascular: Denies chest pain, claudication, dyspnea on exertion, edema, lightheadedness or palpitations Respiratory/Chest Respiratory/Chest: Denies cough, hemoptysis, shortness of breath at rest or shortness of breath with exertion Gastrointestinal Gastrointestinal: Reports abdominal pain and diarrhea; Denies constipation, hematemesis, hematochezia, melena, nausea or vomiting Genitourinary Genitourinary: Denies dysuria, hematuria, urinary frequency, urinary hesitancy, urinary incontinence or urinary urgency Musculoskeletal Musculoskeletal: Denies back pain, joint pain, joint stiffness, joint swelling, myalgias or neck pain Neurologic Neurologic: Denies abnormal gait, abnormal speech, confusion, dizziness, focal weakness, headache(s), loss of vision, numbness, other visual disturbances, paresthesias, syncope or tingling Psychiatric Psychiatric: Denies anxiety, cognitive impairment, depression, irritability, mood swings or suicidal ideation Endocrine Endocrinology: Denies change in body appearance, cold intolerance, excessive sweating, heat intolerance, polydipsia or polyuria Hematologic/Lymphatic Hematologic/Lymphatic: Denies none, anemia, easy bleeding, easy bruising or lymphadenopathy Allergic/Immunologic Allergic/Immunologic: Denies rhinitis, urticaria, eczemia or asthma Vital Signs Vital Signs Vital Signs: 07/15/23 15:02 07/15/23 16:18 07/15/23 16:18 Temperature 96.2 F L 98.2 F Temperature Source Temporal Oral Pulse Rate 90 82 81 Respiratory Rate 18 18 18 Blood Pressure 126/69 H 124/57 H 124/57 H Blood Pressure Mean 88 79 79 Pulse Ox 96 96 95 Oxygen Delivery Method Room Air Room Air Room Air 07/15/23 18:00 Temperature Temperature Source Pulse Rate 79 Respiratory Rate 18 Blood Pressure 122/57 H Blood Pressure Mean 78 Pulse Ox 99 Oxygen Delivery Method Room Air Weight Weight: 129.727 kg Body Mass Index (BMI) 39.9 Physical Exam Const alert, oriented x3, no apparent distress and healthy appearing General Appearance: cooperative, well kempt and well developed Orientation / Consciousness: awake, oriented to person, oriented to place and oriented to time HEENT normocephalic, head/scalp atraumatic, hearing grossly normal bilaterally and moist oral mucous membranes Eyes PERRL, EOMs intact bilaterally and conjunctivae normal Neck supple, no JVD, thyroid normal and no carotid bruits General: trachea midline Resp normal respiratory effort, no retractions, no use of accessory muscles and clear to auscultation bilaterally Auscultation: Negative for rales, rhonchi or wheezes Cardio regular rate, regular rhythm, S1 normal heart sound, S2 normal heart sound, no murmurs, no rub and no gallops GI GI Narrative: Abdomen is mildly distended, there is abdominal tenderness to palpation in the right upper quadrant noted and in the mid left lower quadrant. No rebound abdominal tenderness was noted, bowel sounds are present in all 4 quadrants. Extremity no clubbing, cyanosis or edema Skin no rashes or lesions noted General Skin Exam: no breakdown Neuro oriented x3, CN's II-XII intact bilaterally, moves all extremities, no focal motor deficits and no sensory deficits noted Sensorium / Orientation: awake and alert Speech: speech normal Psych affect normal Results Lab / Micro Data 07/15/23 15:50 07/15/23 15:50 Labs: Laboratory Results - last 24 hr 07/15/23 15:50: WBC 7.8, RBC 3.75 L, Hgb 12.3 L, Hct 36.9 L, MCV 98.4 H, MCH 32.8 H, MCHC 33.3, RDW Std Deviation 64.7 H, RDW Coeff of [place] 18.8 H, Plt Count 204, MPV 9.6, Immature Gran % (Auto) 0.600, Neut % (Auto) 80.7 H, Lymph % (Auto) 5.4 L, [place] % (Auto) 11.1 H, Eos % (Auto) 1.9, Baso % (Auto) 0.3, Absolute Neuts (auto) 6.3, Absolute Lymphs (auto) 0.42 L, Nucleated RBC % 0, Differential Comment SCANNED, PT 18.3 H, INR 1.5, Sodium 141, Potassium 3.7, Chloride 108 H, Carbon Dioxide 25.0, Anion Gap 8, BUN 20 H, Creatinine 0.96, Estim Creat Clear Calc 81.71, Est GFR (MDRD) Af Amer 101, Est GFR (MDRD) Non-Af 83, BUN/Creatinine Ratio 20.8 H, Glucose 114 H, Calcium 8.8, Total Bilirubin 0.90, AST 21, ALT 23, Alkaline Phosphatase 76, Total Protein 6.3 L, Albumin 3.1 L, Globulin 3.2, Albumin/Globulin Ratio 1.0, Lipase 26 07/15/23 16:00: Lactic Acid 1.4 07/15/23 17:10: Urine Color Yellow, Urine Clarity Clear, Urine pH 6.0, Ur Specific [place] 1.015, Urine Protein 15 H, Urine Glucose (UA) Normal, Urine Ketones Negative, Urine Occult Blood Negative, Urine Nitrite Negative, Urine Bilirubin Negative, Urine Urobilinogen 4 H, Ur Leukocyte Esterase 25 H, Urine RBC 0 SEEN, Urine WBC 0 SEEN, Ur Squamous Epith Cells 0-5 SEEN, Calcium Oxalate Crystal 1+, Urine Bacteria 0 SEEN, Urine Mucus 0 SEEN Radiology Impression Abdomen/Pelvis CT 07/15/23 15:21 IMPRESSION: 1. Suspect enteritis of a loop of distal ileum in the right upper quadrant with a small amount of free fluid suggestive of peritonitis. No abscess or perforation. 2. Sigmoid diverticulosis without diverticulitis. 3. Possible proctitis or rectal mass. Clinical correlation is recommended. 4. Small right inguinal hernia containing fat and fluid. Electronically Signed: Leon Son MD at 17:35 EDT , Assessment & Plan Assessment/Plan (1) Abdominal pain: PLAN: Plan 1. Acute enteritis with possible peritonitis-patient will be admitted to [facility] 3, he will be placed on clear liquids, he will remain on his home medications with the exception of his vitamins and cholesterol meds, he will be seen in consultation by general surgery, he will be given IV fluids #2 recent diagnosis of rectal cancer-patient has completed his radiotherapy and had his first dose of chemotherapy this week, Dr. Quesada sees the patient #3 essential hypertension-patient will remain on his home medications #4 past history of pulmonary embolism/DVT of the leg several years ago on chronic Coumadin-patient states he was on Eliquis for a time and it was discontinued after the leg DVT resolved, he then had a embolus in the pulmonary artery and was placed on Eliquis, this was then changed to Coumadin, patient had been in the emergency room recently on 07/12/2023 and his INR was elevated at 9.8, he was given IV vitamin K 10 mg, and he was told to stop his Coumadin-he did not take it on Thursday and Thursday and resumed it on Thursday. He states he resumed it at 7 mg/day on Thursday. I have elected to resume his Coumadin at 6 mg daily, it may take several days for the patient's INR to become therapeutic, I will give the patient an extra dosage of warfarin 5 mg tonight in addition to his 6 mg. Patient's INR today was 1.5. #5 morbid obesity-complicates care, medical course, recovery, and prognosis Total clinical time spent by myself addressing the patient's medical issues, reviewing all of his data, and collaborating with patient's care team: 55 minutes Charges/Coding Visit Charges Inpatient E&M: 16427 Init Hosp L2
--- NOTE | 2023-07-15 20:15 | EX.PCM.CON.S ---
Assessment & Plan Assessment/Plan (1) Enteritis: PLAN: This is a 63-year-old male who is evaluated for acute onset abdominal pain and CT imaging that shows evidence of terminal ileitis. Given patient's recent completion of both oral chemotherapy with Xeloda and radiation his presentation is concerning for possible typhlitis (but not neutropenic enterocolitis) versus radiation enteritis. His exam is reassuring and he does report spontaneous improvement of his abdominal discomfort. Therefore I have recommended conservative management with bowel rest (patient okay for clear liquids) and IV antibiotic therapy. We will continue to trend serial abdominal exams. For now recommend: ? Clear liquid diet with IV fluid support ? Empiric IV antibiotics with Zosyn ? Consider stool sample ? AM CBC ? Trend abdominal exams (2) History of rectal cancer: HPI Consult Data Date of Consult: 07/15/23 HPI Narrative Reason for Consultation: Enteritis HPI Narrative: MIGUE GUNTER, is a 63 M who presents to [facility] with complaints of acute onset abdominal pain that began yesterday following a visit with general surgery for consideration of port placement. Patient is known to the general surgery service after a colonoscopy with Dr. Alon Boland identified a rectal mass on 05/05/2023. Patient was referred to the [facility] where patient is now under the care of Dr. Ernesto Villeda for consideration of tumor resection. Patient reports that it has been approximately 1 week since his completion of neoadjuvant chemoradiation with Xeloda. He states that his bowels had been rather loose until yesterday when they were about as normal as they ever were yesterday. Mr. Gunter describes migratory pain that begins in his right lower abdomen and moved to his left lower abdomen. This pain was shortly followed by return of looser stools. He states that the pain was particularly bad yesterday and improved today, but due to its persistence decided to seek evaluation. ER work-up is notable for CBC that shows normal WBC and normal neutrophil count. CT imaging of the abdomen pelvis shows inflammatory change of the ileum consistent with diagnosis of enteritis and some mild free fluid which radiology read as indicating possible peritonitis. 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 Non-smoker CORRINA (obstructive sleep apnea) Pulmonary embolism (06/10/18) Rectal cancer Rectal mass Sinusitis Thyroid disease Weight gain with edema Home Medications cholecalciferol (vitamin D3) 50 mcg (2,000 unit) capsule 2,000 unit PO DAILY supplement 06/16/19 [History Last Taken 06/16/19] furosemide 40 mg tablet 40 mg PO DAILY diuretic 06/16/19 [History Last Taken 06/16/19] benazepril 20 mg tablet 20 mg PO DAILY blood pressure 01/09/21 [History Last Taken 05/05/23] sertraline 50 mg tablet 50 mg PO DAILY depression 01/09/21 [History Last Taken Unknown] omeprazole 20 mg capsule,delayed release 20 mg PO Q OTHER DAY PRN GERD 10/25/21 [History Last Taken Unknown] rosuvastatin 5 mg tablet (Crestor) 5 mg PO Q OTHER DAY cholesterol #45 tabs 12/25/22 [Rx Last Taken Unknown] aspirin 81 mg tablet,delayed release (Enteric Coated Aspirin) 81 mg PO DAILY heart #90 tabs 01/11/23 [Rx Last Taken 05/04/23] diltiazem HCl 300 mg capsule,extended release 24 hr 300 mg PO DAILY heart #90 caps 04/30/23 [Rx Last Taken 05/05/23] potassium chloride 20 mEq tablet,extended release 20 meq PO DAILY low potassium #14 tabs 07/07/23 [Rx Last Taken Unknown] warfarin 3 mg tablet 3 mg PO QHS blood thinner 07/09/23 [History Last Taken Unknown] Allergy/AdvReac Type Severity Reaction Status Date / Time apixaban [From Eliquis] AdvReac Severe Pt formed Verified 07/15/23 15:04 PE's in spite of taking routinely simvastatin AdvReac Severe Myalgias Verified 07/15/23 15:04 doxycycline AdvReac Intermediate GI upset Verified 07/15/23 15:04 Family History Mother CAD (coronary artery disease) Diabetes Hypertension Hyperlipidemia Heart disease Father CVA (cerebral vascular accident) Surgical History History of appendectomy History of appendectomy History of cardiac catheterization History of colonoscopy (~06/2016) History of hip surgery History of left heart catheterization (10/21/18) History of left inguinal hernia repair Social History Smoking Status: Never smoker alcohol intake: never substance use type: does not use caffeine: Yes Type: carbonated beverages Number of servings: 1 Physical Exam Const alert, oriented x3 and no apparent distress General Appearance: cooperative Nutritional Appearance: obese Resp normal respiratory effort GI GI Narrative: Midline scar is well-healed, mildly distended, soft, mildly tender to palpation in the right lower quadrant (rated a 4 out of 10) Lab / Micro Data 07/15/23 15:50 07/15/23 15:50 Labs: Laboratory Results - last 24 hr 07/15/23 15:50: WBC 7.8, RBC 3.75 L, Hgb 12.3 L, Hct 36.9 L, MCV 98.4 H, MCH 32.8 H, MCHC 33.3, RDW Std Deviation 64.7 H, RDW Coeff of [place] 18.8 H, Plt Count 204, MPV 9.6, Immature Gran % (Auto) 0.600, Neut % (Auto) 80.7 H, Lymph % (Auto) 5.4 L, [place] % (Auto) 11.1 H, Eos % (Auto) 1.9, Baso % (Auto) 0.3, Absolute Neuts (auto) 6.3, Absolute Lymphs (auto) 0.42 L, Nucleated RBC % 0, Differential Comment SCANNED, PT 18.3 H, INR 1.5, Sodium 141, Potassium 3.7, Chloride 108 H, Carbon Dioxide 25.0, Anion Gap 8, BUN 20 H, Creatinine 0.96, Estim Creat Clear Calc 81.71, Est GFR (MDRD) Af Amer 101, Est GFR (MDRD) Non-Af 83, BUN/Creatinine Ratio 20.8 H, Glucose 114 H, Calcium 8.8, Total Bilirubin 0.90, AST 21, ALT 23, Alkaline Phosphatase 76, Total Protein 6.3 L, Albumin 3.1 L, Globulin 3.2, Albumin/Globulin Ratio 1.0, Lipase 26 07/15/23 16:00: Lactic Acid 1.4 07/15/23 17:10: Urine Color Yellow, Urine Clarity Clear, Urine pH 6.0, Ur Specific [place] 1.015, Urine Protein 15 H, Urine Glucose (UA) Normal, Urine Ketones Negative, Urine Occult Blood Negative, Urine Nitrite Negative, Urine Bilirubin Negative, Urine Urobilinogen 4 H, Ur Leukocyte Esterase 25 H, Urine RBC 0 SEEN, Urine WBC 0 SEEN, Ur Squamous Epith Cells 0-5 SEEN, Calcium Oxalate Crystal 1+, Urine Bacteria 0 SEEN, Urine Mucus 0 SEEN Radiology Impression Abdomen/Pelvis CT 07/15/23 15:21 IMPRESSION: 1. Suspect enteritis of a loop of distal ileum in the right upper quadrant with a small amount of free fluid suggestive of peritonitis. No abscess or perforation. 2. Sigmoid diverticulosis without diverticulitis. 3. Possible proctitis or rectal mass. Clinical correlation is recommended. 4. Small right inguinal hernia containing fat and fluid. Electronically Signed: Leon Son MD at 17:35 EDT ,
[2023-07-15 21:46] VITALS: BP 133/64; PULSE 73; RESP 16; TEMP 36.5; O2SAT 95; BMI 40.2
[2023-07-16] MEDS: 0.9% Normal Saline (1000mL) 1,000 ML 125 ML IV ×3 (04:59→20:51)
[2023-07-16] MEDS: Piperacil/Tazobactam 3.375 GM in 0.9% Normal Saline (50mL MB+) 50 ML IV ×3 (04:59→20:50)
[2023-07-16 07:04] LABS: Absolute Lymphocyte Count 0.31 X10^3/uL (0.83-4.51); Absolute Neutrophil Count 4.7 X10^3/uL (2.0-7.7); Basophil# 0.03 X10^3/uL; Basophil% 0.5 % (0-1); Eosinophil# 0.18 X10^3/uL; Hemoglobin 11.3 g/dL (13.0-16.5); Lymphocyte # 0.31 X10^3/ul (0.83-4.51); Lymphocyte % 5.2 % (19-41); Mean Corp Hgb Conc 32.3 g/dL (32-36); Mean Corpuscular Hgb 32.7 pg (27.0-32.0); Mean Corpuscular Volume 101.2 fL (80-94); Mean Platelet Vol. 8.9 fl (6.2-12.0); Monocyte# 0.72 X10^3/uL; NRBC Flagged by Analyzer 0 % (0-5); Neutrophil # 4.71 X10^3/uL (2.7-7.7); Neutrophil % 78.6 % (47-70); POSITIVE DIFFERENTIAL YES; POSITIVE MORPHOLOGY YES; Platelet Count 194 K/mm3 (150-450); RBC Distribution Width SD 67.7 fl (35.1-43.9); Red Blood Count 3.46 M/mm3 (4.6-6.2)
[2023-07-16 07:24] LABS: Anion Gap 6 (5-15); BUN 16 mg/dL (7-18); BUN/Creat Ratio 17.4 RATIO (10-20); Calcium,Total 8.3 mg/dL (8.5-10.1); Chloride 112 mmol/L (98-107); Creatinine, Serum 0.92 mg/dL (0.70-1.30); EST Glomerular Filtration Rate 88 mL/min (>60); Est Glom Filt Rate - Afr Amer 106 mL/min (>60); Estimated Creatinine Clearance 85.26 ml/min; Glucose 103 mg/dL (74-106); Potassium 3.9 mmol/L (3.5-5.1); Sodium Level 141 mmol/L (136-145)
[2023-07-16 07:25] LABS: Differential Indicated SCAN CRITERIA MET
[2023-07-16 07:38] LABS: Anisocytosis 1+
[2023-07-16 08:00] VITALS: BP 130/67; PULSE 73; RESP 15; TEMP 36.6; O2SAT 96
[2023-07-16 08:18] LABS: International Normalized Ratio 1.7; Prothrombin Time (Protime)PT. 20.4 SECONDS (11.7-14.9)
[2023-07-16] MEDS: Sertraline 50 MG Tablet PO (08:56)
[2023-07-16] MEDS: Lisinopril 20 MG Tablet PO (08:56)
[2023-07-16] MEDS: dilTIAZem CD 300 MG Capsule PO (08:56)
[2023-07-16] MEDS: Pantoprazole Sodium 20 MG Tablet PO (09:02)
--- NOTE | 2023-07-16 10:05 | CASEMGMT ---
RN?CM?[employer] MANAGER?CM?to room to meet with patient for initial transition planning/care coordination?assessment.?RN?CM?introduced self and role at [facility].? Pt voices understanding and consents to?assessment?at this time.? Pt resting in bed in no distress at this time.? Pt is A/O at this time and answers all questions appropriately.?? Care providers, pharmacy, and demographics verified/updated at this time. PCP: Dr Membreno Specialists: Dr Quesada-oncology, Dr Childers- radiation onc Preferred Pharmacy: [facility] Retail pharmacy Insurance: [employer] through his place of employment. Prescription Benefit:?Yes Living Will/HPOA:? Pt does not currently have LW/HCPOA and declines info at this time.? Pt made aware that he can contact as an out-pt and make appt in the future if he decides he would like to talk with someone about this or would like to utilize [facility] social work for advanced directive completion.? LNOK: , Myriam. 2 adult children Living Arrangements: Lives w/. Independent. Works full-time Transportation:?Pt states drives self and states no transportation concerns at this time.? also drives. DME: ?States has a BIPAP thru [employer]. Pt states no need for further DME at this time.? HHC/SNF: No hx of either. No needs identified. Pt wishes to return home and states has no concerns with going home at time of discharge.? CM?to follow for home oxygen needs and any discharge planning/needs.? Pt voices no concerns/needs at this time.? Advised pt to ask for?CM?if any questions/concerns/needs arise.? Voices understanding. PLAN:??Home Julian BSN?RN?CM
--- NOTE | 2023-07-16 10:05 | CASEMGMT ---
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.? Pt voices understanding and consents to?assessment?at this time.? Pt resting in bed in no distress at this time.? Pt is A/O at this time and answers all questions appropriately.?? Care providers, pharmacy, and demographics verified/updated at this time. PCP: Dr Membreno Specialists: Dr Quesada-oncology, Dr Childers- radiation onc Preferred Pharmacy: [facility] Retail pharmacy Insurance: [employer] through his place of employment. Prescription Benefit:?Yes Living Will/HPOA:? Pt does not currently have LW/HCPOA and declines info at this time.? Pt made aware that he can contact as an out-pt and make appt in the future if he decides he would like to talk with someone about this or would like to utilize [facility] social work for advanced directive completion.? LNOK: , Myriam. 2 adult children Living Arrangements: Lives w/. Independent. Works full-time Transportation:?Pt states drives self and states no transportation concerns at this time.? also drives. DME: ?States has a BIPAP thru [employer]. Pt states no need for further DME at this time.? HHC/SNF: No hx of either. No needs identified. Pt wishes to return home and states has no concerns with going home at time of discharge.? Pt states does not smoke or drink ETOH.??CM?to follow for home oxygen needs and any further discharge planning/needs.? Pt voices no further concerns/needs at this time.? Advised pt to ask for?CM?if any further questions/concerns/needs arise.? Voices understanding. PLAN:?? Julian BSN?RN?CM
--- NOTE | 2023-07-16 10:31 | PN.HOSP_ITS ---
Reason for Visit Reason for Visit: Diagnoses Noninfective gastroenteritis and colitis, unspecified (07/15/23) Unspecified abdominal pain (07/15/23) Personal history of other malignant neoplasm of rectum, rectosigmoid junction, and anus (07/15/23) Subjective Subjective Patient a 63-year-old gentleman with history of rectal CA admitted with abdomi nal pain with associated diarrhea Objective Data Objective Data Vital Signs: Vital Signs Temp Pulse Resp BP Pulse Ox O2 Del Method 98 F 73 15 130/67 H 96 Room Air 07/16/23 08:00 07/16/23 08:00 07/16/23 08:00 07/16/23 08:00 07/16/23 08:00 07/16/23 08:00 Oxygen Delivery Method Room Air Weight: 130.8 kg Body Mass Index (BMI) 40.2 Intake & Output: Intake and Output for Last 24 Hours 07/14/23 07/15/23 07/16/23 23:59 23:59 23:59 Intake Total 789.58 / 1029.58 1275.42 / 1275.42 Balance 789.58 / 1029.58 1275.42 / 1275.42 Lab / Micro Data 07/16/23 06:37 07/16/23 06:37 Labs: Laboratory Results - last 24 hr 07/15/23 15:50: WBC 7.8, RBC 3.75 L, Hgb 12.3 L, Hct 36.9 L, MCV 98.4 H, MCH 32.8 H, MCHC 33.3, RDW Std Deviation 64.7 H, RDW Coeff of [place] 18.8 H, Plt Count 204, MPV 9.6, Immature Gran % (Auto) 0.600, Neut % (Auto) 80.7 H, Lymph % (Auto) 5.4 L, [place] % (Auto) 11.1 H, Eos % (Auto) 1.9, Baso % (Auto) 0.3, Absolute Neuts (auto) 6.3, Absolute Lymphs (auto) 0.42 L, Nucleated RBC % 0, Differential Comment SCANNED, PT 18.3 H, INR 1.5, Sodium 141, Potassium 3.7, Chloride 108 H, Carbon Dioxide 25.0, Anion Gap 8, BUN 20 H, Creatinine 0.96, Estim Creat Clear Calc 81.71, Est GFR (MDRD) Af Amer 101, Est GFR (MDRD) Non-Af 83, BUN/Creatinine Ratio 20.8 H, Glucose 114 H, Calcium 8.8, Total Bilirubin 0.90, AST 21, ALT 23, Alkaline Phosphatase 76, Total Protein 6.3 L, Albumin 3.1 L, Globulin 3.2, Albumin/Globulin Ratio 1.0, Lipase 26 07/15/23 16:00: Lactic Acid 1.4 07/15/23 17:10: Urine Color Yellow, Urine Clarity Clear, Urine pH 6.0, Ur Specific [place] 1.015, Urine Protein 15 H, Urine Glucose (UA) Normal, Urine Ketones Negative, Urine Occult Blood Negative, Urine Nitrite Negative, Urine Bilirubin Negative, Urine Urobilinogen 4 H, Ur Leukocyte Esterase 25 H, Urine RBC 0 SEEN, Urine WBC 0 SEEN, Ur Squamous Epith Cells 0-5 SEEN, Calcium Oxalate Crystal 1+, Urine Bacteria 0 SEEN, Urine Mucus 0 SEEN 07/16/23 06:37: WBC 6.0, RBC 3.46 L, Hgb 11.3 L, Hct 35.0 L, MCV 101.2 H, MCH 32.7 H, MCHC 32.3, RDW Std Deviation 67.7 H, RDW Coeff of [place] 19.0 H, Plt Count 194, MPV 8.9, Immature Gran % (Auto) 0.700, Neut % (Auto) 78.6 H, Lymph % (Auto) 5.2 L, [place] % (Auto) 12.0 H, Eos % (Auto) 3.0, Baso % (Auto) 0.5, Absolute Neuts (auto) 4.7, Absolute Lymphs (auto) 0.31 L, Nucleated RBC % 0, Differential Comment COMMENT, Anisocytosis 1+, PT 20.4 H, INR 1.7, Sodium 141, Potassium 3.9, Chloride 112 H, Carbon Dioxide 23.0, Anion Gap 6, BUN 16, Creatinine 0.92, Estim Creat Clear Calc 85.26, Est GFR (MDRD) Af Amer 106, Est GFR (MDRD) Non-Af 88, BUN/Creatinine Ratio 17.4, Glucose 103, Calcium 8.3 L Radiography Diagnostic Testing: Radiology Impression Abdomen/Pelvis CT 07/15/23 15:21 IMPRESSION: 1. Suspect enteritis of a loop of distal ileum in the right upper quadrant with a small amount of free fluid suggestive of peritonitis. No abscess or perforation. 2. Sigmoid diverticulosis without diverticulitis. 3. Possible proctitis or rectal mass. Clinical correlation is recommended. 4. Small right inguinal hernia containing fat and fluid. Electronically Signed: Leon Son MD at 17:35 EDT , Physical Exam Narrative GENERAL: cooperative HEENT: Atraumatic; normocephalic EYES; Anicteric, Normal Conjunctiva NECK; supple, normal thyroid, RESPIRATORY: Diminished to auscultation CARDIOVASCULAR: Regular S1 S2, GI: soft, normoactive bowel sounds, : No Renal angle tenderness; EXTREMITIES: No edema, no clubbing, MUSCULOSKELETAL: no muscle wasting NEURO: Awake; no lateralizing signs. SKIN: No Rash PSYCH; Flat affect Assessment & Plan Assessment/Plan (1) Abdominal pain: PLAN: Plan Patient a 63-year-old gentleman with history of Rectal CA admitted with ab dominal pain with associated diarrhea 1. Acute enteritis CT of the abdomen and pelvis obtained on admission demonstrated Suspected enteritis of a loop of distal ileum in the right upper quadrant with a small amount of free fluid suggestive of peritonitis. No abscess or perforation. Sigmoid diverticulosis without diverticulitis. Possible proctitis or rectal mass. Patient admitted to regular nursing floor started on empiric antibiotic therapy with Zosyn with consultation placed to general surgery seen by Dr. Kwon he is noted recommendations reviewed 2. Recent diagnosis of rectal CA ? Patient has completed radiation therapy started his chemo a week prior to his admission follows with oncology?Dr. Dia outpatient 3. Hypertension - Blood pressure controlled, home medications continued with dose adjustment as needed 4. Dyslipidemia -Patient is on statin therapy, continued at home dose 5. History of previous VTE with PE/DVT ? Patient is on Coumadin which is currently being monitored with daily INR. Patient had apparently received vitamin K on 07/12/2023 when his INR was noted to be 10.8 Coumadin subsequently held. INR on admission was 1.5 Coumadin resumed with subsequent monitoring ordered 6. Class II obesity with BMI 40.2 ? Complicating care weight loss advised 7. GERD ? Patient on PPI 8. Depression ? Patient is on sertraline continue 9. 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 Dermatic treatment 10. DVT prophylaxis ? On Coumadin no additional measures warranted Time spent in the patient's overall evaluation,decision-making process, review of diagnostic data, adjustment of management, discussion with other providers, nursing nursing and ancillary staff involved in patient's care documentation, 52 Minutes Advance planning; did discuss with the patient and family regarding advanced directives as well as CODE STATUS. Did explain the various scenarios involved ( FULL CODE, DNR CCA, DNR CCA with no intubation, and DNR CC and what each meant) patient elected full code with CPR and intubation if warranted. Order was placed. Time spent on discussion 18 minutes. Charges/Coding Visit Charges Inpatient E&M: 70768 Subs Hosp L3 Procedures Hospitalists Procedures: 74348 Advncd Care Plan 30 Min
--- NOTE | 2023-07-16 11:31 | PN.SURG_ITS ---
Subjective Subjective Patient evaluated resting comfortably in bed. Patient notes his abdominal discomfort is improved. He denies nausea, vomiting, fever. He notes his stools are starting to firm up. Objective Data Objective Data Vital Signs: Vital Signs Temp Pulse Resp BP Pulse Ox O2 Del Method 98 F 73 15 130/67 H 96 Room Air 07/16/23 08:00 07/16/23 08:00 07/16/23 08:00 07/16/23 08:00 07/16/23 08:00 07/16/23 08:00 Oxygen Delivery Method Room Air Weight: 288 lb 5.834 oz Body Mass Index (BMI) 40.2 Intake & Output: Intake and Output for Last 24 Hours 07/14/23 07/15/23 07/16/23 23:59 23:59 23:59 Intake Total 789.58 / 1029.58 1275.42 / 1275.42 Balance 789.58 / 1029.58 1275.42 / 1275.42 Lab / Micro Data 07/16/23 06:37 07/16/23 06:37 Labs: Laboratory Results - last 24 hr 07/15/23 15:50: WBC 7.8, RBC 3.75 L, Hgb 12.3 L, Hct 36.9 L, MCV 98.4 H, MCH 32.8 H, MCHC 33.3, RDW Std Deviation 64.7 H, RDW Coeff of [place] 18.8 H, Plt Count 204, MPV 9.6, Immature Gran % (Auto) 0.600, Neut % (Auto) 80.7 H, Lymph % (Auto) 5.4 L, [place] % (Auto) 11.1 H, Eos % (Auto) 1.9, Baso % (Auto) 0.3, Absolute Neuts (auto) 6.3, Absolute Lymphs (auto) 0.42 L, Nucleated RBC % 0, Differential Comment SCANNED, PT 18.3 H, INR 1.5, Sodium 141, Potassium 3.7, Chloride 108 H, Carbon Dioxide 25.0, Anion Gap 8, BUN 20 H, Creatinine 0.96, Estim Creat Clear Calc 81.71, Est GFR (MDRD) Af Amer 101, Est GFR (MDRD) Non-Af 83, BUN/Creatinine Ratio 20.8 H, Glucose 114 H, Calcium 8.8, Total Bilirubin 0.90, AST 21, ALT 23, Alkaline Phosphatase 76, Total Protein 6.3 L, Albumin 3.1 L, Globulin 3.2, Albumin/Globulin Ratio 1.0, Lipase 26 07/15/23 16:00: Lactic Acid 1.4 07/15/23 17:10: Urine Color Yellow, Urine Clarity Clear, Urine pH 6.0, Ur Specific [place] 1.015, Urine Protein 15 H, Urine Glucose (UA) Normal, Urine Ketones Negative, Urine Occult Blood Negative, Urine Nitrite Negative, Urine Bilirubin Negative, Urine Urobilinogen 4 H, Ur Leukocyte Esterase 25 H, Urine RBC 0 SEEN, Urine WBC 0 SEEN, Ur Squamous Epith Cells 0-5 SEEN, Calcium Oxalate Crystal 1+, Urine Bacteria 0 SEEN, Urine Mucus 0 SEEN 07/16/23 06:37: WBC 6.0, RBC 3.46 L, Hgb 11.3 L, Hct 35.0 L, MCV 101.2 H, MCH 32.7 H, MCHC 32.3, RDW Std Deviation 67.7 H, RDW Coeff of [place] 19.0 H, Plt Count 194, MPV 8.9, Immature Gran % (Auto) 0.700, Neut % (Auto) 78.6 H, Lymph % (Auto) 5.2 L, [place] % (Auto) 12.0 H, Eos % (Auto) 3.0, Baso % (Auto) 0.5, Absolute Neuts (auto) 4.7, Absolute Lymphs (auto) 0.31 L, Nucleated RBC % 0, Differential Comment COMMENT, Anisocytosis 1+, PT 20.4 H, INR 1.7, Sodium 141, Potassium 3.9, Chloride 112 H, Carbon Dioxide 23.0, Anion Gap 6, BUN 16, Creatinine 0.92, Estim Creat Clear Calc 85.26, Est GFR (MDRD) Af Amer 106, Est GFR (MDRD) Non-Af 88, BUN/Creatinine Ratio 17.4, Glucose 103, Calcium 8.3 L Radiography Diagnostic Testing: Radiology Impression Abdomen/Pelvis CT 07/15/23 15:21 IMPRESSION: 1. Suspect enteritis of a loop of distal ileum in the right upper quadrant with a small amount of free fluid suggestive of peritonitis. No abscess or perforation. 2. Sigmoid diverticulosis without diverticulitis. 3. Possible proctitis or rectal mass. Clinical correlation is recommended. 4. Small right inguinal hernia containing fat and fluid. Electronically Signed: Leon Son MD at 17:35 EDT , Physical Exam GI GI Narrative: Abdomen- minimal tenderness in the right abdomen. Positive bowel sounds Assessment & Plan Assessment/Plan (1) Enteritis: PLAN: I am following this patient in conjunction with Dr. Kwon. Patient seems to be improving well Increase patient's diet to full liquids. If he tolerates full liquids, I would recommend increase to transitional diet Continue transitional diet at discharge for 2 weeks Recommend Cipro/Flagyl for 14 days at discharge Patient was scheduled for a port-a-cath placement with Dr. Boland on 07/20. This procedure well be canceled until patient has improved. Our office will reach out to the patient or his to reschedule his port placement. We will continue to monitor this patient Charges/Coding Visit Charges Inpatient E&M: 62912 Subs Hosp L1
[2023-07-16] MEDS: Acetaminophen 325 MG Tablet 650 MG PO (13:48)
[2023-07-16 14:47] VITALS: BP 157/67; PULSE 72; RESP 15; TEMP 36.6; O2SAT 95
[2023-07-16 21:00] VITALS: BP 126/66; PULSE 70; RESP 16; TEMP 36.7; O2SAT 95
[2023-07-17 03:00] VITALS: BP 128/61; PULSE 72; RESP 16; TEMP 36.6; O2SAT 97
[2023-07-17] MEDS: 0.9% Normal Saline (1000mL) 1,000 ML 125 ML IV (04:35)
[2023-07-17] MEDS: Piperacil/Tazobactam 3.375 GM in 0.9% Normal Saline (50mL MB+) 50 ML IV (04:35)
[2023-07-17 07:20] LABS: Absolute Lymphocyte Count 0.27 X10^3/uL (0.83-4.51); Basophil# 0.02 X10^3/uL; Basophil% 0.5 % (0-1); Eosinophil# 0.19 X10^3/uL; Eosinophils% 4.7 % (0-5); Hematocrit 34.6 % (40-54); Hemoglobin 11.6 g/dL (13.0-16.5); Lymphocyte # 0.27 X10^3/ul (0.83-4.51); Lymphocyte % 6.6 % (19-41); Mean Corp Hgb Conc 33.5 g/dL (32-36); Mean Corpuscular Hgb 34.1 pg (27.0-32.0); Mean Corpuscular Volume 101.8 fL (80-94); Mean Platelet Vol. 8.9 fl (6.2-12.0); Monocyte# 0.53 X10^3/uL; NRBC Flagged by Analyzer 0 % (0-5); Neutrophil # 3.04 X10^3/uL (2.7-7.7); Neutrophil % 74.7 % (47-70); POSITIVE DIFFERENTIAL YES; POSITIVE MORPHOLOGY YES; Platelet Count 182 K/mm3 (150-450); RBC Distribution Width CV 18.9 % (11.6-14.6); RBC Distribution Width SD 67.4 fl (35.1-43.9); White Blood Count 4.1 K/mm3 (4.4-11.0)
[2023-07-17 07:27] LABS: Differential Indicated SCAN CRITERIA MET
--- NOTE | 2023-07-17 07:36 | PN.HOSP_ITS ---
Reason for Visit Reason for Visit: Diagnoses Noninfective gastroenteritis and colitis, unspecified (07/15/23) Unspecified abdominal pain (07/15/23) Personal history of other malignant neoplasm of rectum, rectosigmoid junction, and anus (07/15/23) Subjective Subjective Patient seen overall clinical condition improved plan is for patient to be ass essed for possible discharge Objective Data Objective Data Vital Signs: Vital Signs Temp Pulse Resp BP Pulse Ox O2 Del Method 98 F 72 16 128/61 H 97 Room Air 07/17/23 03:00 07/17/23 03:00 07/17/23 03:00 07/17/23 03:00 07/17/23 03:00 07/17/23 03:00 Oxygen Delivery Method Room Air Weight: 130.8 kg Body Mass Index (BMI) 40.2 Intake & Output: Intake and Output for Last 24 Hours 07/15/23 07/16/23 07/17/23 23:59 23:59 23:59 Intake Total 789.58 / 1029.58 3077.50 / 3317.50 1256.67 / 1256.67 Balance 789.58 / 1029.58 3077.50 / 3317.50 1256.67 / 1256.67 Lab / Micro Data 07/17/23 06:10 07/17/23 06:10 Labs: Laboratory Results - last 24 hr 07/16/23 06:37: Differential Comment COMMENT, Anisocytosis 1+, PT 20.4 H, INR 1.7 07/17/23 06:10: WBC 4.1 L, RBC 3.40 L, Hgb 11.6 L, Hct 34.6 L, MCV 101.8 H, MCH 34.1 H, MCHC 33.5, RDW Std Deviation 67.4 H, RDW Coeff of [place] 18.9 H, Plt Count 182, MPV 8.9, Immature Gran % (Auto) 0.500, Neut % (Auto) 74.7 H, Lymph % (Auto) 6.6 L, [place] % (Auto) 13.0 H, Eos % (Auto) 4.7, Baso % (Auto) 0.5, Absolute Neuts (auto) 3.0, Absolute Lymphs (auto) 0.27 L, Nucleated RBC % 0 Micro: Microbiology 07/16/23 15:00 Stool Enteric Bacteriology - Final Physical Exam Narrative GENERAL: cooperative HEENT: Atraumatic; normocephalic EYES; Anicteric, Normal Conjunctiva NECK; supple, normal thyroid, RESPIRATORY: Diminished to auscultation CARDIOVASCULAR: Regular S1 S2, GI: soft, normoactive bowel sounds, : No Renal angle tenderness; EXTREMITIES: No edema, no clubbing, MUSCULOSKELETAL: no muscle wasting NEURO: Awake; no lateralizing signs. SKIN: No Rash PSYCH; Flat affect Assessment & Plan Assessment/Plan (1) Abdominal pain: PLAN: Plan Patient a 63-year-old gentleman with history of Rectal CA admitted with abdominal pain with associated diarrhea 1. Acute enteritis CT of the abdomen and pelvis obtained on admission demonstrated Suspected enteritis of a loop of distal ileum in the right upper quadrant with a small amount of free fluid suggestive of peritonitis. No abscess or perforation. Sigmoid diverticulosis without diverticulitis. Possible proctitis or rectal mass. Patient admitted to regular nursing floor started on empiric antibiotic therapy with Zosyn with consultation placed to general surgery seen by Dr. Kwon he is noted recommendations reviewed ? 07/17/2023: Patient seen symptoms improved plan is for patient to be discharged 2. Recent diagnosis of rectal CA ? Patient has completed radiation therapy started his chemo a week prior to his admission follows with oncology?Dr. Dia outpatient 3. Hypertension - Blood pressure controlled, home medications continued with dose adjustment as needed 4. Dyslipidemia -Patient is on statin therapy, continued at home dose 5. History of previous VTE with PE/DVT ? Patient is on Coumadin which is currently being monitored with daily INR. Patient had apparently received vitamin K on 07/12/2023 when his INR was noted to be 10.8 Coumadin subsequently held. INR on admission was 1.5 Coumadin resumed with subsequent monitoring ordered 6. Class II obesity with BMI 40.2 ? Complicating care weight loss advised 7. GERD ? Patient on PPI 8. Depression ? Patient is on sertraline continue 9. 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 Dermatic treatment 10. DVT prophylaxis ? On Coumadin no additional measures warranted Time spent in the patient's overall evaluation,decision-making process, review of diagnostic data, adjustment of management, discussion with other providers, nursing nursing and ancillary staff involved in patient's care documentation, 35 Minutes Charges/Coding Visit Charges Inpatient E&M: 37336 Subs Hosp L2
[2023-07-17 07:41] LABS: International Normalized Ratio 2.1; Prothrombin Time (Protime)PT. 23.4 SECONDS (11.7-14.9)
[2023-07-17 08:00] LABS: Anion Gap 5 (5-15); BUN 11 mg/dL (7-18); BUN/Creat Ratio 11.9 RATIO (10-20); Calcium,Total 8.6 mg/dL (8.5-10.1); Chloride 111 mmol/L (98-107); Creatinine, Serum 0.93 mg/dL (0.70-1.30); EST Glomerular Filtration Rate 87 mL/min (>60); Est Glom Filt Rate - Afr Amer 105 mL/min (>60); Estimated Creatinine Clearance 84.34 ml/min; Glucose 99 mg/dL (74-106); Magnesium 2.4 mg/dL (1.6-2.6); Phosphorus 2.2 mg/dL (2.5-4.9); Potassium 3.9 mmol/L (3.5-5.1); Sodium Level 142 mmol/L (136-145)
[2023-07-17 08:26] VITALS: BP 138/77; PULSE 73; RESP 16; TEMP 36.6; O2SAT 97
--- NOTE | 2023-07-17 08:26 | PCM.PN.SRG ---
Subjective Subjective Patient seen and examined during AM rounds. Is found sitting out of bed in the chair. He states that he feels rather well this morning. He denies any significant abdominal pain. He confirms that he has been tolerating his diet. He does state that he is having persistent diarrhea when he has bowel movements. Objective Data Objective Data Vital Signs: Vital Signs Temp Pulse Resp BP Pulse Ox O2 Del Method 98 F 72 16 128/61 H 97 Room Air 07/17/23 03:00 07/17/23 03:00 07/17/23 03:00 07/17/23 03:00 07/17/23 03:00 07/17/23 03:00 Oxygen Delivery Method Room Air Weight: 288 lb 5.834 oz Body Mass Index (BMI) 40.2 Intake & Output: Intake and Output for Last 24 Hours 07/15/23 07/16/23 07/17/23 23:59 23:59 23:59 Intake Total 789.58 / 1029.58 3077.50 / 3317.50 1256.67 / 1256.67 Balance 789.58 / 1029.58 3077.50 / 3317.50 1256.67 / 1256.67 Lab / Micro Data 07/17/23 06:10 07/17/23 06:10 Labs: Laboratory Results - last 24 hr 07/17/23 06:10: WBC 4.1 L, RBC 3.40 L, Hgb 11.6 L, Hct 34.6 L, MCV 101.8 H, MCH 34.1 H, MCHC 33.5, RDW Std Deviation 67.4 H, RDW Coeff of [place] 18.9 H, Plt Count 182, MPV 8.9, Immature Gran % (Auto) 0.500, Neut % (Auto) 74.7 H, Lymph % (Auto) 6.6 L, [place] % (Auto) 13.0 H, Eos % (Auto) 4.7, Baso % (Auto) 0.5, Absolute Neuts (auto) 3.0, Absolute Lymphs (auto) 0.27 L, Nucleated RBC % 0, PT 23.4 H, INR 2.1, Sodium 142, Potassium 3.9, Chloride 111 H, Carbon Dioxide 26.0, Anion Gap 5, BUN 11, Creatinine 0.93, Estim Creat Clear Calc 84.34, Est GFR (MDRD) Af Amer 105, Est GFR (MDRD) Non-Af 87, BUN/Creatinine Ratio 11.9, Glucose 99, Calcium 8.6, Phosphorus 2.2 L, Magnesium 2.4 Micro: Microbiology 07/16/23 15:00 Stool Enteric Bacteriology - Final Physical Exam Const oriented x3 and no apparent distress Resp normal respiratory effort GI GI Narrative: Mildly distended, soft, minimally tender to palpation in the right lower quadrant with deeper palpation Assessment & Plan Assessment/Plan (1) Enteritis: PLAN: Patient with further clinical improvements. Tolerating transitional diet without issue. At this point I believe he is nearing readiness for discharge and outpatient management. At present recommend: Continuation of transitional diet x2 weeks as an outpatient Recommend Cipro/Flagyl for 14 days at discharge Patient was scheduled for a port-a-cath placement with Dr. Boland on 07/20. This procedure well be canceled until patient has improved. Our office will reach out to the patient or his to reschedule his port placement. Above plan has been communicated to patient's primary hospitalist, Dr. Dominguez Charges/Coding Visit Charges Inpatient E&M: 89741 Subs Hosp L2
[2023-07-17] MEDS: Lisinopril 20 MG Tablet PO (08:28)
[2023-07-17] MEDS: Sertraline 50 MG Tablet PO (08:28)
[2023-07-17] MEDS: dilTIAZem CD 300 MG Capsule PO (08:29)
[2023-07-17] MEDS: Pantoprazole Sodium 20 MG Tablet PO (08:29)
[2023-07-17 08:33] LABS: Anisocytosis 2+; Differential Comment SCANNED; Macrocytosis 1+; Microcytosis 1+
--- NOTE | 2023-07-17 10:01 | PCM.DC.SUM ---
Providers Date of Admission: 07/15/23 Date of Discharge: 07/17/23 Primary Care Physician: Dr. Hao Membreno MD Consultations 07/15/23 19:59 Consult: General Surgery Routine Consulting Provider: Wili Kwon Reason for Consult: peritonitis EMERGENT Consult: No Notified: Yes Date Notified: 07/15/23 Time Notified: 19:25 Method of Notification: Verbal Reason For Visit: PERITONITIS, ENTERITIS Diagnosis Discharge Diagnosis (1) Abdominal pain: Status: Acute Code(s): R10.9 - Unspecified abdominal pain Plan Patient a 63-year-old gentleman with history of Rectal CA admitted with abdominal pain with associated diarrhea 1. Acute enteritis CT of the abdomen and pelvis obtained on admission demonstrated Suspected enteritis of a loop of distal ileum in the right upper quadrant with a small amount of free fluid suggestive of peritonitis. No abscess or perforation. Sigmoid diverticulosis without diverticulitis. Possible proctitis or rectal mass. Patient admitted to regular nursing floor started on empiric antibiotic therapy with Zosyn with consultation placed to general surgery seen by Dr. Kwon he is noted recommendations reviewed ? 07/17/2023: Patient seen symptoms improved plan is for patient to be discharged 2. Recent diagnosis of rectal CA ? Patient has completed radiation therapy started his chemo a week prior to his admission follows with oncology?Dr. Dia outpatient 3. Hypertension - Blood pressure controlled, home medications continued with dose adjustment as needed 4. Dyslipidemia -Patient is on statin therapy, continued at home dose 5. History of previous VTE with PE/DVT ? Patient is on Coumadin which is currently being monitored with daily INR. Patient had apparently received vitamin K on 07/12/2023 when his INR was noted to be 10.8 Coumadin subsequently held. INR on admission was 1.5 Coumadin resumed with subsequent monitoring ordered 6. Class II obesity with BMI 40.2 ? Complicating care weight loss advised 7. GERD ? Patient on PPI 8. Depression ? Patient is on sertraline continue 9. 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 Dermatic treatment 10. DVT prophylaxis ? On Coumadin no additional measures warranted Time spent in the patient's overall evaluation,decision-making process, review of diagnostic data, adjustment of management, discussion with other providers, nursing nursing and ancillary staff involved in patient's care documentation, 35 Minutes Medications at Discharge Home Medications cholecalciferol (vitamin D3) 50 mcg (2,000 unit) capsule 2,000 unit PO DAILY supplement 06/16/19 furosemide 40 mg tablet 40 mg PO DAILY diuretic 06/16/19 benazepril 20 mg tablet 20 mg PO DAILY blood pressure 01/09/21 sertraline 50 mg tablet 50 mg PO DAILY depression 01/09/21 omeprazole 20 mg capsule,delayed release 20 mg PO Q OTHER DAY PRN GERD 10/25/21 rosuvastatin 5 mg tablet (Crestor) 5 mg PO Q OTHER DAY cholesterol #45 tabs 12/25/22 aspirin 81 mg tablet,delayed release (Enteric Coated Aspirin) 81 mg PO DAILY heart #90 tabs 01/11/23 diltiazem HCl 300 mg capsule,extended release 24 hr 300 mg PO DAILY heart #90 caps 04/30/23 potassium chloride 20 mEq tablet,extended release 20 meq PO DAILY low potassium #14 tabs 07/07/23 warfarin 3 mg tablet 3 mg PO QHS blood thinner 07/09/23 ciprofloxacin HCl 500 mg tablet (Cipro) 500 mg PO BID #28 tabs 07/17/23 metronidazole 500 mg tablet 500 mg PO TID 14 days #42 tabs 07/17/23 Hospital Course Summary of Care Provided Minutes Spent on Discharge: 35 Physical Exam Narrative GENERAL: cooperative HEENT: Atraumatic; normocephalic EYES; Anicteric, Normal Conjunctiva NECK; supple, normal thyroid, RESPIRATORY: Diminished to auscultation CARDIOVASCULAR: Regular S1 S2, GI: soft, normoactive bowel sounds, : No Renal angle tenderness; EXTREMITIES: No edema, no clubbing, MUSCULOSKELETAL: no muscle wasting NEURO: Awake; no lateralizing signs. SKIN: No Rash PSYCH; Flat affect Weight / BMI Weight Weight: 130.8 kg Body Mass Index (BMI) 40.2 ABG / Lab / Microbiology Data 07/17/23 06:10 07/17/23 06:10 Laboratory: Laboratory Results - last 24 hr 07/17/23 06:10: WBC 4.1 L, RBC 3.40 L, Hgb 11.6 L, Hct 34.6 L, MCV 101.8 H, MCH 34.1 H, MCHC 33.5, RDW Std Deviation 67.4 H, RDW Coeff of [place] 18.9 H, Plt Count 182, MPV 8.9, Immature Gran % (Auto) 0.500, Neut % (Auto) 74.7 H, Lymph % (Auto) 6.6 L, [place] % (Auto) 13.0 H, Eos % (Auto) 4.7, Baso % (Auto) 0.5, Absolute Neuts (auto) 3.0, Absolute Lymphs (auto) 0.27 L, Nucleated RBC % 0, Differential Comment SCANNED, Diff Path Review May foll, Anisocytosis 2+, Microcytosis 1+, Macrocytosis 1+, PT 23.4 H, INR 2.1, Sodium 142, Potassium 3.9, Chloride 111 H, Carbon Dioxide 26.0, Anion Gap 5, BUN 11, Creatinine 0.93, Estim Creat Clear Calc 84.34, Est GFR (MDRD) Af Amer 105, Est GFR (MDRD) Non-Af 87, BUN/Creatinine Ratio 11.9, Glucose 99, Calcium 8.6, Phosphorus 2.2 L, Magnesium 2.4 Microbiology: Microbiology 07/16/23 15:00 Stool Enteric Bacteriology - Final D/C Instructions Discharge Diet: No restrictions Discharge Activity: Return to Normal Activity Call your doctor if you observe: Fever of 101 or Higher, Shortness of breath, Fainting spells and Chest pain Meaningful Use Info Meaningful Use Diagnoses (Choose all that apply): None applicable Discharge Plan Admission Admit Date/Time: 07/15/23 19:13 Attending Provider: Sidney Dominguez Primary Care Provider: Hao Membreno Consulting Providers: Wili Kwon; Kevin Veras Discharge Orders/Prescriptions Prescriptions: New ciprofloxacin HCl [Cipro] 500 mg tablet 500 mg PO BID Qty: 28 0RF metronidazole 500 mg tablet 500 mg PO TID 14 Days Qty: 42 0RF Continued benazepril 20 mg tablet 20 mg PO DAILY Patient Comments: TAKE 1 TABLET BY MOUTH EVERY DAY sertraline 50 mg tablet 50 mg PO DAILY potassium chloride 20 mEq tablet extended release 20 meq PO DAILY Qty: 14 0RF cholecalciferol (vitamin D3) 2,000 UNIT capsule 2,000 unit PO DAILY omeprazole 20 mg capsule,delayed release(DR/EC) 20 mg PO Q OTHER DAY PRN (Reason: GERD) warfarin 3 mg tablet 3 mg PO QHS Protocol: Dose Management Condition: Thursday Dose/Route: 0 mg Instruction: 0 tablets Condition: Thursday Dose/Route: 0 mg Instruction: 0 tablets Condition: Thursday Dose/Route: 6 mg Instruction: 2 x 3 mg tablets Condition: Thursday Dose/Route: 6 mg Instruction: 2 x 3 mg tablets Condition: Dose/Route: 6 mg Instruction: 2 x 3 mg tablets Condition: Thursday Dose/Route: 0 mg Instruction: 0 tablets Condition: Thursday Dose/Route: 0 mg Instruction: 0 tablets Protocol Text: Adjustment Start Date: Thursday07/14/23 INR Value: 1.3 INR Date: 07/14/23 Recheck Date: 07/27/23 Rx Instructions: Dose change to 8mg daily: needs 5mg +3mg tabs furosemide 40 mg tablet 40 mg PO DAILY rosuvastatin [Crestor] 5 mg tablet 5 mg PO Q OTHER DAY Qty: 45 3RF aspirin [Enteric Coated Aspirin] 81 mg tablet,delayed release (DR/EC) 81 mg PO DAILY Qty: 90 3RF diltiazem HCl 300 mg capsule,extended release 24hr 300 mg PO DAILY Qty: 90 3RF Referrals / Follow Up: Hao Membreno MD [Primary Care Provider] - Within 2 Weeks Wili Kwon MD [Med Staff - Active Staff] - Within 2 Weeks Disposition Disposition (needs filled in before D/C Order can be placed): Home, Self Care Charges/Coding Visit Charges Inpatient E&M: 86875 Disch Hosp >30min
--- NOTE | 2023-07-17 10:33 | PHA.DC.MC.R ---
Pharmacy [facility] has performed discharge medication reconciliation and counseling for this patient. The patient's discharge medication list was reviewed for discrepancies and discrepancies were resolved. The patient was counseled on the following discharge medications and changes in medications for homegoing were reviewed. The Reason for Use, instructions for use, and potential side effects were reviewed for all new medications. The patient's questions regarding all of their medications were answered. 1. Ciprofloxacin 500 mg PO BID x 14 days 2. Metronidazole 500 mg PO TID x 14 days The patient was able to verbally demonstrate an understanding of their discharge medications. Medications at Discharge Home Medications cholecalciferol (vitamin D3) 50 mcg (2,000 unit) capsule 2,000 unit PO DAILY supplement 06/16/19 furosemide 40 mg tablet 40 mg PO DAILY diuretic 06/16/19 benazepril 20 mg tablet 20 mg PO DAILY blood pressure 01/09/21 sertraline 50 mg tablet 50 mg PO DAILY depression 01/09/21 omeprazole 20 mg capsule,delayed release 20 mg PO Q OTHER DAY PRN GERD 10/25/21 rosuvastatin 5 mg tablet (Crestor) 5 mg PO Q OTHER DAY cholesterol #45 tabs 12/25/22 aspirin 81 mg tablet,delayed release (Enteric Coated Aspirin) 81 mg PO DAILY heart #90 tabs 01/11/23 diltiazem HCl 300 mg capsule,extended release 24 hr 300 mg PO DAILY heart #90 caps 04/30/23 potassium chloride 20 mEq tablet,extended release 20 meq PO DAILY low potassium #14 tabs 07/07/23 warfarin 3 mg tablet 3 mg PO QHS blood thinner 07/09/23 ciprofloxacin HCl 500 mg tablet (Cipro) 500 mg PO BID #28 tabs 07/17/23 metronidazole 500 mg tablet 500 mg PO TID 14 days #42 tabs 07/17/23
[2023-07-17 12:10] VITALS: BP 115/66; PULSE 73; RESP 18; O2SAT 95
--- NOTE | 2023-07-17 12:13 | CASEMGMT ---
Patient has order for discharge. RN CM in to inquire about needs at discharge. Patient denies needs at discharge. Patient had no further questions or concerns at this time.
[2023-07-20 08:47] LABS: Pathologist Review Reviewed
== END 2023-07-17 12:23 | disposition home or self-care (01) | DRG 392 ==
LOC: ED 18:22 → PCU 19:28
PROVIDERS: Admitting Provider Internal Medicine; Emergency Provider Emergency Medicine; PCP Family Medicine; Visit Provider Internal Medicine
DX: K52.9 Noninfective gastroenteritis and colitis, unspecified (principal); C20 Malignant neoplasm of rectum; Z68.41 Body mass index [BMI] 40.0-44.9, adult; E66.01 Morbid (severe) obesity due to excess calories; E78.00 Pure hypercholesterolemia, unspecified; K21.9 Gastro-esophageal reflux disease without esophagitis; I48.91 Unspecified atrial fibrillation; F32.A Depression, unspecified; I10 Essential (primary) hypertension; K57.30 Diverticulosis of large intestine without perforation or abscess without bleeding; K62.89 Other specified diseases of anus and rectum; M47.816 Spondylosis without myelopathy or radiculopathy, lumbar region; Z90.49 Acquired absence of other specified parts of digestive tract; Z79.01 Long term (current) use 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s; Z79.82 Long term (current) use of aspirin; Z79.899 Other long term (current) drug therapy; Z86.711 Personal history of pulmonary embolism; Z86.718 Personal history of other venous thrombosis and embolism; Z86.16 Personal history of COVID-19
CPT/HCPCS: 36415; 74177; 80048; 80053; 81001; 83605; 83690; 83735; 84100; 85025; 85610; 87506; 99284; J7030; J7040; Q9967; A4216; J2405

== ENCOUNTER 2023-07-19 13:14 | Emergency (ER) | payer OTHER, SELFPAY ==
[2023-07-19 13:16] VITALS: BP 112/58; PULSE 93; RESP 18; TEMP 36.4; O2SAT 96; BMI 40.1
--- NOTE | 2023-07-19 13:36 | RAD_ITS ---
STUDY: XR Chest 2 Views 07/19/2023 2:42 PM REASON FOR EXAM: Male, 63 years old. cough COMPARISON: 01/21/2022 TECHNIQUE: XR Chest 2 Views FINDINGS: There is no demonstrated pleural abnormality. Lower lobe atelectasis. Normal heart size. Normal mediastinum. Normal rubina. Prominent appearing increased interstitial lung markings. Normal visualized pulmonary arteries. There is atherosclerotic calcification of the aortic arch with tortuosity. There are diffuse degenerative changes of the visualized thoracic spine. There is degenerative osteoarthritis of the bilateral shoulders. There are no acute findings of the upper abdomen. RAD/Chest PA and Lateral IMPRESSION: There are no acute findings. Electronically Signed: Ephraim Martin MD at 15:13 EST ,
--- NOTE | 2023-07-19 13:39 | EDS_ITS ---
HPI <YAKOV Li - Last Filed: 07/19/23 16:02> History of Present Illness Chief Complaint: Fever Narrative Narrative: Patient is a 63-year-old male with history of atrial fibrillation, on Coumadin, hypertension, obesity, history of rectal cancer currently under treatment. Patient's last radiation, chemotherapy was 2 weeks ago. Patient was recently discharged which was 4 days ago. Patient states this morning, he had the shakes, had a fever of 100.7 and called his oncologist who told him to go to the emergency department. Patient states that he does still have some abdominal tenderness however is nowhere near when he was here last week. Patient is currently taking Cipro, Flagyl. He denies any cough, denies any nausea or vomiting. Patient states he continues to have diarrhea. He denies any sick contacts other than being in the hospital. Patient is here for evaluation PFS <YAKOV Li - Last Filed: 07/19/23 16:02> [facility] Medical History Abdominal pain Acute cough Afib Arthritis Asthma Benign essential hypertension BiPAP (biphasic positive airway pressure) dependence Cancer Cardiology follow-up encounter COVID-19 DVT (deep venous thrombosis) Dyspnea on exertion Edema Encounter for education Gastric reflux Gastroesophageal reflux disease High cholesterol History of atrial fibrillation History of echocardiogram History of edema History of steroid therapy History of venous thromboembolism Hyperlipidemia Hypertension 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 Non-smoker CORRINA (obstructive sleep apnea) Pulmonary embolism (06/10/18) Rectal cancer Rectal mass Sinusitis Thyroid disease Weight gain with edema Home Medications cholecalciferol (vitamin D3) 50 mcg (2,000 unit) capsule 2,000 unit PO DAILY supplement 06/16/19 [History Last Taken 06/16/19] furosemide 40 mg tablet 40 mg PO DAILY diuretic 06/16/19 [History Last Taken 06/16/19] benazepril 20 mg tablet 20 mg PO DAILY blood pressure 01/09/21 [History Last Taken 05/05/23] sertraline 50 mg tablet 50 mg PO DAILY depression 01/09/21 [History Last Taken Unknown] omeprazole 20 mg capsule,delayed release 20 mg PO Q OTHER DAY PRN GERD 10/25/21 [History Last Taken Unknown] rosuvastatin 5 mg tablet (Crestor) 5 mg PO Q OTHER DAY cholesterol #45 tabs 12/25/22 [Rx Last Taken Unknown] aspirin 81 mg tablet,delayed release (Enteric Coated Aspirin) 81 mg PO DAILY heart #90 tabs 01/11/23 [Rx Last Taken 05/04/23] diltiazem HCl 300 mg capsule,extended release 24 hr 300 mg PO DAILY heart #90 caps 04/30/23 [Rx Last Taken 05/05/23] potassium chloride 20 mEq tablet,extended release 20 meq PO DAILY low potassium #14 tabs 07/07/23 [Rx Last Taken Unknown] warfarin 3 mg tablet 3 mg PO QHS blood thinner 07/09/23 [History Last Taken Unknown] ciprofloxacin HCl 500 mg tablet (Cipro) 500 mg PO BID #28 tabs 07/17/23 [Rx Last Taken Unknown] metronidazole 500 mg tablet 500 mg PO TID 14 days #42 tabs 07/17/23 [Rx Last Taken Unknown] nirmatrelvir 300 mg (150 mg x2)-ritonavir 100 mg tablet,dose pack (Paxlovid) See Rx Instructions PO .COMPLEX #30 tabs 07/19/23 [Rx Last Taken Unknown] Allergy/AdvReac Type Severity Reaction Status Date / Time apixaban [From Eliquis] AdvReac Severe Pt formed Verified 07/19/23 13:16 PE's in spite of taking routinely simvastatin AdvReac Severe Myalgias Verified 07/19/23 13:16 doxycycline AdvReac Intermediate GI upset Verified 07/19/23 13:16 Family History Mother CAD (coronary artery disease) Diabetes Hypertension Hyperlipidemia Heart disease Father CVA (cerebral vascular accident) Surgical History History of appendectomy History of appendectomy History of cardiac catheterization History of colonoscopy (~06/2016) History of hip surgery History of left heart catheterization (10/21/18) History of left inguinal hernia repair Social History Smoking Status: Never smoker alcohol intake: never substance use type: does not use caffeine: Yes Type: carbonated beverages Number of servings: 1 ROS <YAKOV Li - Last Filed: 07/19/23 16:02> ROS ED ROS Narrative Constitutional: Negative for weight loss, weakness. Positive for fever and chills Eyes: Negative for vision loss, vision change, double vision ENT: Negative for any sore throat, ear pain, congestion Cardiovascular: Negative for any chest pain, tightness, palpitations Respiratory: Negative for any cough, sputum production, hemoptysis, dyspnea, dyspnea on exertion, orthopnea Gastrointestinal: Negative for any abdominal pain, nausea, vomiting, diarrhea, constipation, blood in stool, blood in vomit : Negative for any urinary frequency, dysuria, retention, blood in urine Muscle skeletal: Negative for any stiffness, arthralgias, neck pain, back pain. Positive for myalgias, body aches Neurological: Negative for any headache, syncope, numbness or tingling, dizziness Skin: Negative for any rashes, lumps, itching, abrasions, lacerations Psychiatric: Negative for any depression, anxiety, stress, suicidal ideation, homicidal ideation Hematologic: Negative for any easy bruising, excessive bruising, easy bleeding Allergies: Negative for any eczema, hives, rash EXAM <YAKOV Li - Last Filed: 07/19/23 16:02> Physical Exam Narrative Exam Narrative: Vital signs reviewed. I did take the patient's temperature orally, it was 99.0. HEET: Head normocephalic atraumatic, TMs clear bilaterally. Posterior pharynx is clear, dry mucous membranes. Nares clear bilaterally. Neck: Supple with no lymphadenopathy or tenderness. No signs of meningismus, negative jolt sign. Cardiac: Regular rate and rhythm no murmurs gallops or rubs, equal peripheral pulses bilaterally. Respiratory: Lungs clear to auscultation bilaterally. No chest tenderness. Abdomen: Soft, nontender, nondistended. No abdominal bruit or pulsatile masses. No hepatosplenomegaly. Patient is in no distress Extremities: No peripheral edema, no signs of gross trauma or deformity. Active full range of motion of all extremities. Neuro: Cranial nerves II through XII intact, no focal neurological deficits. Skin: Clean dry and intact with no rash, purpura, petechiae, vesicles or pustules. Backs/flank: No CVA tenderness, no midline spinal tenderness, no deformity. Psych: Normal mood and affect. No SI, HI or acute psychosis. Const Vital Signs: 07/19/23 13:16 07/19/23 14:18 07/19/23 16:26 Temperature 97.6 F L Temperature Source Temporal Pulse Rate 93 62 Respiratory Rate 18 15 Respiratory Effort Normal Non-Labored Respiratory Pattern Normal Blood Pressure 112/58 L 138/77 H Blood Pressure Mean 76 97 Pulse Ox 96 97 Oxygen Delivery Method Room Air Positive well nourished and well developed General Appearance ED: well developed <Dr. Nomi Clay DO - Last Filed: 07/20/23 09:44> Physical Exam Const Vital Signs: 07/19/23 13:16 07/19/23 14:18 07/19/23 16:26 Temperature 97.6 F L Temperature Source Temporal Pulse Rate 93 62 Respiratory Rate 18 15 Respiratory Effort Normal Non-Labored Respiratory Pattern Normal Blood Pressure 112/58 L 138/77 H Blood Pressure Mean 76 97 Pulse Ox 96 97 Oxygen Delivery Method Room Air MDM <YAKOV Li - Last Filed: 07/19/23 16:02> MDM Lab Data Labs: Laboratory Results - last 24 hr 07/19/23 07/19/23 14:00 14:36 WBC 3.9 L RBC 3.17 L Hgb 11.0 L Hct 31.4 L MCV 99.1 H MCH 34.7 H MCHC 35.0 RDW Std Deviation 64.8 H RDW Coeff of [place] 18.6 H Plt Count 163 MPV 9.4 Immature Gran % (Auto) 0.500 Neut % (Auto) 81.7 H Lymph % (Auto) 2.6 L [place] % (Auto) 12.1 H Eos % (Auto) 2.6 Baso % (Auto) 0.5 Absolute Neuts (auto) 3.2 Absolute Lymphs (auto) 0.10 L Nucleated RBC % 0 Differential Comment SCANNED Diff Path Review January foll PT 23.8 H INR 2.1 Sodium 140 Potassium 3.4 L Chloride 107 Carbon Dioxide 25.0 Anion Gap 8 BUN 17 Creatinine 1.12 Estim Creat Clear Calc 70.03 Est GFR (MDRD) Af Amer 85 Est GFR (MDRD) Non-Af 70 BUN/Creatinine Ratio 15.2 Glucose 128 H Lactic Acid 2.1 H* Calcium 8.7 Total Bilirubin 0.60 AST 45 H ALT 36 Alkaline Phosphatase 67 Total Protein 6.0 L Albumin 3.1 L Globulin 2.9 Albumin/Globulin Ratio 1.1 Lipase 25 Urine Color Yellow Urine Clarity Clear Urine pH 7.0 Ur Specific [place] 1.015 Urine Protein 15 H Urine Glucose (UA) Normal Urine Ketones 5 H Urine Occult Blood Negative Urine Nitrite Negative Urine Bilirubin Negative Urine Urobilinogen Normal Ur Leukocyte Esterase 25 H Urine RBC 0 SEEN Urine WBC 0-5 SEEN Ur Squamous Epith Cells 0-5 SEEN Urine Bacteria 0 SEEN Urine Mucus 0 SEEN Radiography Diagnostic Testing: Clinical Impression(s) from Imaging Studies Chest X-Ray 07/19/23 13:36 IMPRESSION: There are no acute findings. Electronically Signed: Ephraim Martin MD at 15:13 EST , Abdomen/Pelvis CT 07/19/23 14:04 IMPRESSION: (NOT LISTED IN ORDER OF SIGNIFICANCE) There is rectal wall thickening and inflammation which may suggest proctitis. Underlying mass is difficult to exclude. Overall stable size of the fluid in the right lower quadrant. Presently this measures 44 mm. The patient has history of left inguinal hernia repair. However, this may actually represent a right inguinal hernia repair hematoma or seroma. Correlation with sidedness of the surgery is recommended. There are prominent small bowel loops containing air-fluid levels. This may suggest an ileus. Enteritis or partial small bowel obstruction is also in the differential. There is hepatomegaly with diffuse hepatic enlargement. Other findings as above. Electronically Signed: Ephraim Martin MD at 15:37 EST , Treatment and Re-Evaluation :: Patient is in no obvious distress, vital signs are stable, patient appears nontoxic. Presenting to the emergency department, patient has been having fever and chills this morning, he recently was discharged in the hospital and secondary to his history of rectal cancer, 2 weeks post radiation, chemotherapy he is here for evaluation.Looking at the patient's last chart, patient did receive a CT scan of the abdomen pelvis 4 days ago, this showed suspect enteritis of a loop of distal ileum in the right upper quadrant with a small amount of free fluid suggestive of peritonitis. No abscess or perforation. Sigmoid diverticulosis without diverticulitis, possible proctitis or rectal ma ss. Small right inguinal hernia containing fat and fluid. Patient will receive a septic work-up including 2 sets of blood cultures, lactic acid. Basic laboratory values to ensure there is no leukocytosis, leukopenia, anemia, electrolyte imbalance. Patient was given 1 L of normal saline. Patient did take Tylenol prior to arrival. Patient is laboratory values showed slight leukopenia with a white blood count of 3.9, patient's hemoglobin is 11. This is baseline for the patient. Patient's PT/INR shows a normal INR 2.1. Patient's chemistries were unremarkable, lactic acid was slightly elevated 2.1. Lipase was negative. Patient's chest x-ray showed no acute process. Patient CT scan of the abdomen pelvis showed findings that are stable with previous from 4 days ago. Such as a rectal wall thickening and inflammation which may suggest proctitis or underlying mass. There is still some fluid in the right lower quadrant. Prominent bowel loops, concerning for any enteritis. Patient is current on antibiotics for this. Patient's COVID-19, influenza was positive for COVID-19. This does explain the patient's fevers and chills. I will speak with the patient's oncologist who sent him in. He did receive 2 sets of blood cultures. At this time, I do believe patient stable for discharge. However I will close the loop with the patient's oncologist. I spoke with the patient's oncologist, he will follow-up outpatient. The oncologist did recommend Paxlovid. Patient instructed to return for any worsening symptoms. All questions were answered, patient stable for discharge. <Dr. Nomi Clay, DO - Last Filed: 07/20/23 09:44> [facility] Narrative Medical decision making narrative: Patient is in no obvious distress, vital signs are stable, patient appears nontoxic. Presenting to the emergency department, patient has been having fever and chills this morning, he recently was discharged in the hospital and secondary to his history of rectal cancer, 2 weeks post radiation, chemotherapy he is here for evaluation.Looking at the patient's last chart, patient did receive a CT scan of the abdomen pelvis 4 days ago, this showed suspect enteritis of a loop of distal ileum in the right upper quadrant with a small amount of free fluid suggestive of peritonitis. No abscess or perforation. Sigmoid diverticulosis without diverticulitis, possible proctitis or rectal mass. Small right inguinal hernia containing fat and fluid. Patient will receive a septic work-up including 2 sets of blood cultures, lactic acid. Basic laboratory values to ensure there is no leukocytosis, leukopenia, anemia, electrolyte imbalance. Patient was given 1 L of normal saline. Patient did take Tylenol prior to arrival. Patient is laboratory values showed slight leukopenia with a white blood count of 3.9, patient's hemoglobin is 11. This is baseline for the patient. Patient's PT/INR shows a normal INR 2.1. Patient's chemistries were unremarkable, lactic acid was slightly elevated 2.1. Lipase was negative. Patient's chest x-ray showed no acute process. Patient CT scan of the abdomen pelvis showed findings that are stable with previous from 4 days ago. Such as a rectal wall thickening and inflammation which may suggest proctitis or underlying mass. There is still some fluid in the right lower quadrant. Prominent bowel loops, concerning for any enteritis. Patient is current on antibiotics for this. Patient's COVID-19, influenza was positive for COVID-19. This does explain the patient's fevers and chills. I will speak with the patient's oncologist who sent him in. He did receive 2 sets of blood cultures. At this time, I do believe patient stable for discharge. However I will close the loop with the patient's oncologist. I spoke with the patient's oncologist, he will follow-up outpatient. The oncologist did recommend Paxlovid. Patient instructed to return for any worsening symptoms. All questions were answered, patient stable for discharge. This patient was seen with a PA/CEMENT TESTER ASSISTANT Individually assessed they patient including history and physical. I have reviewed everything on the chart that is available and agree with the documentation provided by the PA/CEMENT TESTER ASSISTANT including discussion about the assessment, treatment plan, discussion, and return precautions. 63-year-old male with history of rectal cancer recently hospitalized for colitis presenting with diarrhea and fever which is his biggest concern. He has not had a fever. States his pain is actually little better and not worse. Septic work- up was pursued due to his history and with a fever. Patient pancultured. Ultimately his blood work looked reassuring. His lactic acid was 2.1 which is fairly high. Is already given IV fluids. His CT of the pelvis was similar to previous. His COVID swab ended up being positive and his oncologist requested that we put him on Paxlovid. Patient ultimately discharged home in stable condition. Return precautions discussed. Lab Data Attestation: I reviewed the patient's lab results. Labs: Laboratory Results - last 24 hr 07/19/23 07/19/23 14:00 14:36 WBC 3.9 L RBC 3.17 L Hgb 11.0 L Hct 31.4 L MCV 99.1 H MCH 34.7 H MCHC 35.0 RDW Std Deviation 64.8 H RDW Coeff of [place] 18.6 H Plt Count 163 MPV 9.4 Immature Gran % (Auto) 0.500 Neut % (Auto) 81.7 H Lymph % (Auto) 2.6 L [place] % (Auto) 12.1 H Eos % (Auto) 2.6 Baso % (Auto) 0.5 Absolute Neuts (auto) 3.2 Absolute Lymphs (auto) 0.10 L Nucleated RBC % 0 Differential Comment SCANNED Diff Path Review January foll PT 23.8 H INR 2.1 Sodium 140 Potassium 3.4 L Chloride 107 Carbon Dioxide 25.0 Anion Gap 8 BUN 17 Creatinine 1.12 Estim Creat Clear Calc 70.03 Est GFR (MDRD) Af Amer 85 Est GFR (MDRD) Non-Af 70 BUN/Creatinine Ratio 15.2 Glucose 128 H Lactic Acid 2.1 H* Calcium 8.7 Total Bilirubin 0.60 AST 45 H ALT 36 Alkaline Phosphatase 67 Total Protein 6.0 L Albumin 3.1 L Globulin 2.9 Albumin/Globulin Ratio 1.1 Lipase 25 Urine Color Yellow Urine Clarity Clear Urine pH 7.0 Ur Specific [place] 1.015 Urine Protein 15 H Urine Glucose (UA) Normal Urine Ketones 5 H Urine Occult Blood Negative Urine Nitrite Negative Urine Bilirubin Negative Urine Urobilinogen Normal Ur Leukocyte Esterase 25 H Urine RBC 0 SEEN Urine WBC 0-5 SEEN Ur Squamous Epith Cells 0-5 SEEN Urine Bacteria 0 SEEN Urine Mucus 0 SEEN Radiography Diagnostic Testing: Clinical Impression(s) from Imaging Studies Chest X-Ray 07/19/23 13:36 IMPRESSION: There are no acute findings. Electronically Signed: Ephraim Martin MD at 15:13 EST , Abdomen/Pelvis CT 07/19/23 14:04 IMPRESSION: (NOT LISTED IN ORDER OF SIGNIFICANCE) There is rectal wall thickening and inflammation which may suggest proctitis. Underlying mass is difficult to exclude. Overall stable size of the fluid in the right lower quadrant. Presently this measures 44 mm. The patient has history of left inguinal hernia repair. However, this may actually represent a right inguinal hernia repair hematoma or seroma. Correlation with sidedness of the surgery is recommended. There are prominent small bowel loops containing air-fluid levels. This may suggest an ileus. Enteritis or partial small bowel obstruction is also in the differential. There is hepatomegaly with diffuse hepatic enlargement. Other findings as above. Electronically Signed: Ephraim Martin MD at 15:37 EST Reading Location ID and [facility] [place] , Service support , Discharge Plan Triage Chief Complaint: Fever ED Midlevel Provider: Ricki Freeman ED Provider: Nomi Clay Dx/Rx/DC Orders Clinical Impression: COVID-19, History of rectal cancer, Chills with fever Instructions: Caring for Someone Who Has COVID-19 Prescriptions: New Paxlovid 300 mg (150 mg x 2)-100 mg tablets,dose pack See Rx Instructions .ROUTE .COMPLEX Qty: 30 0RF Rx Instructions: take TWO 150 mg tablets of nirmatrelvir with ONE 100 mg tablet of ritonavir twice daily for 5 days No Action benazepril 20 mg tablet 20 mg PO DAILY Patient Comments: TAKE 1 TABLET BY MOUTH EVERY DAY sertraline 50 mg tablet 50 mg PO DAILY potassium chloride 20 mEq tablet extended release 20 meq PO DAILY Qty: 14 0RF cholecalciferol (vitamin D3) 2,000 UNIT capsule 2,000 unit PO DAILY omeprazole 20 mg capsule,delayed release(DR/EC) 20 mg PO Q OTHER DAY PRN (Reason: GERD) ciprofloxacin HCl [Cipro] 500 mg tablet 500 mg PO BID Qty: 28 0RF metronidazole 500 mg tablet 500 mg PO TID 14 Days Qty: 42 0RF warfarin 3 mg tablet 3 mg PO QHS Protocol: Dose Management Condition: Thursday Dose/Route: 0 mg Instruction: 0 tablets Condition: Thursday Dose/Route: 0 mg Instruction: 0 tablets Condition: Thursday Dose/Route: 6 mg Instruction: 2 x 3 mg tablets Condition: Thursday Dose/Route: 6 mg Instruction: 2 x 3 mg tablets Condition: Dose/Route: 6 mg Instruction: 2 x 3 mg tablets Condition: Thursday Dose/Route: 0 mg Instruction: 0 tablets Condition: Thursday Dose/Route: 0 mg Instruction: 0 tablets Protocol Text: Adjustment Start Date: Thursday07/14/23 INR Value: 1.3 INR Date: 07/14/23 Recheck Date: 07/27/23 Rx Instructions: Dose change to 8mg daily: needs 5mg +3mg tabs furosemide 40 mg tablet 40 mg PO DAILY rosuvastatin [Crestor] 5 mg tablet 5 mg PO Q OTHER DAY Qty: 45 3RF aspirin [Enteric Coated Aspirin] 81 mg tablet,delayed release (DR/EC) 81 mg PO DAILY Qty: 90 3RF diltiazem HCl 300 mg capsule,extended release 24hr 300 mg PO DAILY Qty: 90 3RF Primary Care Provider: Hao Membreno Referrals: Hao Membreno MD [Primary Care Provider] - Activity Restrictions/Additional Instructions: Please follow-up with your oncologist. Hold your statin until finished with Paxlovid. Make sure you maintain hydration, use ibuprofen, Tylenol Disposition Disposition: Home, Self Care Discharge Date/Time: 07/19/23 16:27
--- NOTE | 2023-07-19 14:04 | CT_ITS ---
STUDY: CT Abdomen And Pelvis W/ Contrast Injection 07/19/2023 3:30 PM REASON FOR EXAM: Male, 63 years old. Abdominal pain llq abdominal pain Individualized dose optimization techniques were used for this CT. COMPARISON: None. TECHNIQUE: CT Abdomen And Pelvis W/ Contrast Injection IV 100mL [id number] FINDINGS: There are atherosclerotic calcifications of visualized coronary arteries. The visualized portions of the heart are within normal limits. There is hepatomegaly with diffuse hepatic enlargement. Normal gallbladder and extrahepatic biliary system. Normal spleen. Normal pancreas. Normal bilateral adrenal glands. No acute findings of the right kidney. No acute findings of the left kidney. Normal visualized stomach. There is a paralytic ileus of the small intestine with mild gaseous distention. Overall stable size of the fluid in the right lower quadrant. Presently this measures 44 mm. The patient has history of left inguinal hernia repair. However, this may actually represent a right inguinal hernia repair hematoma or seroma. Correlation with sidedness of the surgery is recommended. There are multiple colonic diverticula consistent with diverticulosis. There is non-visualization of the appendix. There is rectal wall thickening and inflammation which may suggest proctitis. Underlying mass is difficult to exclude. There are calcifications of the abdominal aorta. This is consistent for atherosclerotic disease. There is NO abdominal aortic aneurysm. Vascular workup can be obtained based on clinical correlation. Normal inferior vena cava. Subcentimeter mesenteric lymph nodes. Normal urinary bladder. There are prostatic calcifications. There is a right-sided inguinal hernia containing adipose tissue. There is an umbilical hernia containing fat. There are diffuse degenerative changes of the visualized lumbar spine. There is bilateral neural foraminal stenosis at L4-5 and L5-S1. There is a Grade 1 anterolisthesis of L4 on L5. CT/Abdomen/Pelvis W IV Cont ONLY IMPRESSION: (NOT LISTED IN ORDER OF SIGNIFICANCE) There is rectal wall thickening and inflammation which may suggest proctitis. Underlying mass is difficult to exclude. Overall stable size of the fluid in the right lower quadrant. Presently this measures 44 mm. The patient has history of left inguinal hernia repair. However, this may actually represent a right inguinal hernia repair hematoma or seroma. Correlation with sidedness of the surgery is recommended. There are prominent small bowel loops containing air-fluid levels. This may suggest an ileus. Enteritis or partial small bowel obstruction is also in the differential. There is hepatomegaly with diffuse hepatic enlargement. Other findings as above. Electronically Signed: Ephraim Martin MD at 15:37 EST ,
[2023-07-19 14:14] LABS: Absolute Neutrophil Count 3.2 X10^3/uL (2.0-7.7); Basophil# 0.02 X10^3/uL; Basophil% 0.5 % (0-1); Eosinophils% 2.6 % (0-5); Hematocrit 31.4 % (40-54); Lymphocyte % 2.6 % (19-41); Mean Corpuscular Hgb 34.7 pg (27.0-32.0); Mean Corpuscular Volume 99.1 fL (80-94); Mean Platelet Vol. 9.4 fl (6.2-12.0); Monocyte# 0.47 X10^3/uL; Monocyte% 12.1 % (0-10); NRBC Flagged by Analyzer 0 % (0-5); Neutrophil # 3.16 X10^3/uL (2.7-7.7); Neutrophil % 81.7 % (47-70); POSITIVE DIFFERENTIAL YES; Platelet Count 163 K/mm3 (150-450); RBC Distribution Width CV 18.6 % (11.6-14.6); RBC Distribution Width SD 64.8 fl (35.1-43.9); Red Blood Count 3.17 M/mm3 (4.6-6.2); White Blood Count 3.9 K/mm3 (4.4-11.0)
[2023-07-19 14:28] LABS: Differential Indicated SCAN CRITERIA MET
[2023-07-19 14:30] LABS: International Normalized Ratio 2.1; Prothrombin Time (Protime)PT. 23.8 SECONDS (11.7-14.9)
[2023-07-19 14:31] LABS: ALB/GLOB Ratio 1.1 RATIO (0.9-2.4); AST(SGOT) 45 U/L (15-37); Alanine Aminotransfer ALT/SGPT 36 U/L (16-61); Albumin, Serum 3.1 g/dL (3.2-5.0); Alkaline Phosphatase 67 U/L (45-117); Anion Gap 8 (5-15); BUN 17 mg/dL (7-18); BUN/Creat Ratio 15.2 RATIO (10-20); Calcium,Total 8.7 mg/dL (8.5-10.1); Chloride 107 mmol/L (98-107); Creatinine, Serum 1.12 mg/dL (0.70-1.30); EST Glomerular Filtration Rate 70 mL/min (>60); Est Glom Filt Rate - Afr Amer 85 mL/min (>60); Estimated Creatinine Clearance 70.03 ml/min; Globulin 2.9 g/dL (2.2-4.2); Glucose 128 mg/dL (74-106); Lipase 25 U/L (13-75); Potassium 3.4 mmol/L (3.5-5.1); Sodium Level 140 mmol/L (136-145)
[2023-07-19 14:33] LABS: Lactic Acid 2.1 mmol/L (0.4-1.9)
[2023-07-19] MEDS: 0.9% Normal Saline (1000mL) 1,000 ML 1000 ML IV (14:35)
[2023-07-19 14:46] LABS: Bacteria 0 SEEN /hpf (None Seen); Mucous, Urine 0 SEEN /hpf (<or=2+); Red Blood Cells-Urine 0 SEEN /hpf (0-5)
[2023-07-19 15:06] LABS: Color, Urine Yellow (Yellow); Glucose, Dipstick Normal (Normal); Ketone-Dipstick 5 mg/dl (Negative); Leukocyte Esterase-Dipstick 25 /ul (Negative); Nitrite-Dipstick Negative (Negative); Occult Blood-Urine Negative /ul (Negative); Protein-Dipstick 15 mg/dl (Negative); Specific Gravity, Urine 1.015 (1.002-1.030); Urine Bilirubin Dipstick Negative (Negative); Urine Clarity Clear (Clear); Urine Urobilinogen Normal (Normal)
[2023-07-19 15:09] LABS: Differential Comment SCANNED
[2023-07-19 15:26] LABS: Squamous Epithelial Cells - UA 0-5 SEEN /hpf (0-5); White Blood Cells 0-5 SEEN /hpf (0-5)
[2023-07-19 16:26] VITALS: BP 138/77; PULSE 62; RESP 15; O2SAT 97
[2023-07-19 18:04] LABS: Reflex Lactate? Y
[2023-07-21 15:05] LABS: Pathologist Review Reviewed
== END 2023-07-19 16:27 | disposition home or self-care (01) ==
PROVIDERS: Nurse Practitioner; Emergency Provider Student in an Organized Health Care Education/Training Program; PCP Family Medicine; Visit Provider Student in an Organized Health Care Education/Training Program
DX: U07.1 COVID-19 (principal); G47.33 Obstructive sleep apnea (adult) (pediatric); Z86.718 Personal history of other venous thrombosis and embolism; Z86.711 Personal history of pulmonary embolism
CPT/HCPCS: 71046; 74177; 80053; 81001; 83605; 83690; 85025; 85610; 87040; 87633; 87811; 96360; 99283; J7030; Q9967; A4216

== ENCOUNTER 2023-08-03 07:51 | Day surgery (SDC) | payer OTHER, SELFPAY ==
[2023-08-03 08:19] VITALS: BP 152/68; PULSE 72; RESP 16; TEMP 36.1; O2SAT 96; BMI 40.2
[2023-08-03] MEDS: Lactated Ringers 1,000 ML 15 ML IV (08:22)
[2023-08-03 08:25] LABS: INR Fingerstick 1.8; Prothrombin Time Fingerstick 19.9 SEC (11.7-14.9)
--- NOTE | 2023-08-03 08:44 | PCM.HP.BLA ---
History and Physical Date of Admission: 08/03/23 Chief Complaint: port consult Industrial Relations Specialist Required: No Is patient in pain?: No Allergies apixaban [From Eliquis] Adverse Reaction (Severe, Verified 07/15/23 15:04) Pt formed PE's in spite of taking routinelysimvastatin Adverse Reaction (Severe, Verified 07/15/23 15:04) Myalgiasdoxycycline Adverse Reaction (Intermediate, Verified 07/15/23 15:04) GI upset Medications cholecalciferol (vitamin D3) 50 mcg (2,000 unit) capsule 2,000 unit PO DAILY supplement 06/16/19 [History Confirmed 07/15/23] furosemide 40 mg tablet 40 mg PO DAILY diuretic 06/16/19 [History Confirmed 07/15/23] benazepril 20 mg tablet 20 mg PO DAILY blood pressure 01/09/21 [History Confirmed 07/15/23] sertraline 50 mg tablet 50 mg PO DAILY depression 01/09/21 [History Confirmed 07/15/23] omeprazole 20 mg capsule,delayed release 20 mg PO Q OTHER DAY PRN GERD 10/25/21 [History Confirmed 07/15/23] rosuvastatin 5 mg tablet (Crestor) 5 mg PO Q OTHER DAY cholesterol #45 tabs 12/25/22 [Rx Confirmed 07/15/23] aspirin 81 mg tablet,delayed release (Enteric Coated Aspirin) 81 mg PO DAILY heart #90 tabs 01/11/23 [Rx Confirmed 07/15/23] diltiazem HCl 300 mg capsule,extended release 24 hr 300 mg PO DAILY heart #90 caps 04/30/23 [Rx Confirmed 07/15/23] potassium chloride 20 mEq tablet,extended release 20 meq PO DAILY low potassium #14 tabs 07/07/23 [Rx Confirmed 07/15/23] warfarin 3 mg tablet 3 mg PO QHS blood thinner 07/09/23 [History Confirmed 07/15/23] PFSH Medical History Abdominal pain Acute cough Afib Arthritis Asthma Benign essential hypertension BiPAP (biphasic positive airway pressure) dependence Cancer Cardiology follow-up encounter COVID-19 DVT (deep venous thrombosis) Dyspnea on exertion Edema Encounter for education Gastric reflux Gastroesophageal reflux disease High cholesterol History of atrial fibrillation History of echocardiogram History of edema History of steroid therapy History of venous thromboembolism Hyperlipidemia Hypertension Kidney stone residential current use 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 Non-smoker CORRINA (obstructive sleep apnea) Pulmonary embolism (06/10/18) Rectal cancer Rectal mass Sinusitis Thyroid disease Weight gain with edema Surgical History History of appendectomy History of appendectomy History of cardiac catheterization History of colonoscopy (~06/2016) History of hip surgery History of left heart catheterization (10/21/18) History of left inguinal hernia repair Family History Mother CAD (coronary artery disease) Diabetes Hypertension Hyperlipidemia Heart diseaseFather CVA (cerebral vascular accident) Social History Smoking Status: Never smoker alcohol intake: never substance use type: does not use caffeine: Yes Type: carbonated beverages Number of servings: 1 HPI HPI HPI: Patient is a 63 y/o M I am following with new diagnosed rectal cancer. Patient is scheduled to start chemotherapy at the end of July. Patient denies previous port-a-cath placement. He denies previous central lines. Patient is right handed. Patient denies previous complications with anesthesia. Patient recently have a fine needle aspiration of a left thyroid nodule by Dr. Boland on 06/22/23. 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 See comment. AM:anca 06/23/2023 COMMENT The Gipsy System for thyroid diagnostic categorization was used in the evaluation of this case. Per recommendations and a clinician-approved plan (a call was made to the referring doctor about the recommendation), genomic testing (Afirma) has been submitted. Results will be reported as an addendum and faxed to clinician. Afirma testing was completed and suggested a low risk of cancer. ROS General General: No weight change, appetite, fatigue, colon cancer, breast cancer or weakness HEENT HEENT: No difficulty swallowing, eye injury, eye surgery, swollen glands or hoarseness Endo Endocrine: No thyroid disease, diabetes mellitus, thyroid cancer, Hair loss, heat intolerance or cold intolerance Skin Skin: No rash or changing moles Breast Breast: No left breast lump, right breast lump, nipple discharge, breast pain, abnormal mammogram, abnormal US or breast enlargement Musc Musculoskeletal: Yes back problems and arthritis; No rheumatoid arthritis, gout or joint pain Cardio Cardiovascular: Yes atrial fibrillation and high blood pressure; No murmur, pacemaker, heart disease, heart attack, heart stent, palpitations, shortness of breat with exertion or chest pain Psych Psychiatric: Yes anxiety; No depression or hearing voices Resp Respiratory: No shortness of breath, Yes sleep apnea, No cough, No COPD, No asthma, No emphysema and No wheezing Gastro Gastrointestinal: No abdominal pain, No nausea or vomiting, No diarrhea, No constipation, No blood in stool, Yes acid reflux, Yes hemorrhoids, No ulcers, No gallbladder problem and No black,tarry stools Juma Hematologic: Yes blood thinners, No blood disorders, No bleeding, No anemia and Yes blood clots Neuro Neurologic: No system reviewed and no additional complaints, except as documented, No as per HPI, No abnormal gait, No abnormal hearing, No abnormal movements, No abnormal speech, No behavioral changes, No burning sensations, No confusion, No convulsions, No disequilibrium, No dizziness, No localized weakness, No frequent falls, No headache(s), No lack of coordination, No loss of vision, No memory loss, No numbness, No other visual disturbances, No radicular pain, No restless legs, No sensory deficit, No syncope, No tingling, No tremor(s), No weakness and No other Exam Const General: cooperative, healthy appearing, comfortable and no acute distress [facility] Head: normal to inspection Eyes General: appearance normal, both eyes and all related structures Neck Neck: normal visual inspection Neck mass: No Resp Effort & Inspection: normal respiratory effort Auscultation: clear to auscultation bilaterally Cardio Rate: regular rate Rhythm: regular rhythm GI Inspection: normal to inspection Palpation: soft Auscultation: normal bowel sounds Musc Cervical Spine: normal cervical lordosis Skin General: no rashes or lesions noted Neuro General: no focal motor deficits and CN's II-XI intact bilaterally Extrem General: normal to inspection Psych Appearance: grossly normal Affect: normal affect Assessment and Plan Assessment and Plan (1) Rectal cancer: Status: Acute Plan: Dr. Boland will plan to perform a right possible left chest port-a-cath placement. Procedure details, risks and benefits have been explained. Patient will plan to hold his Coumadin 3 days prior to the procedure. Patient has had the opportunity to ask and have questions answered. Patient verbally understands and agrees with the plan. Plan for repeat thyroid ultrasound in 1 year. Patient will be placed in recall. \ \The patient had previously been scheduled to have the port placed but arrived with acute abdominal pain and enteritis. Procedure needed to be postponed. He returns today for planned port placement to facilitate management of his rectal cancer. He is still having frequent stools. No bright red blood per rectum or melena. He did have COVID when he was hospitalized as well. He feels that those symptoms have abated. He is scheduled to see Dr. Ernesto Villeda colorectal surgery tomorrow. We will proceed with port placement Alon Boland M.D., F.A.C.S.
--- NOTE | 2023-08-03 08:45 | EX.PCM.DISCH ---
Discharge Instructions Procedure Port-A-Cath Diet Discharge Diet: No restrictions (Pain medication may cause nausea. You should typically eat light foods as you take your pain medication.) Activity Discharge Activity: Return to Normal Activity and May Shower (Leave the bandage on for 2-3 days. When you remove the bandage, leave the steri-strips intact until they fall off.) Additional Activity Instructions:: May not drive, work with heavy equipment, or sign legal documents for [address]. [address] if you are no longer taking narcotic pain medications. You may drive when you are no longer taking pain medications. Dressing / Incision Additional Dressing/Incision Instructions:: Leave the bandage on for 2-3 days. When you remove the bandage, leave the steri-strips intact until they fall off. Follow Up Care Test Results: Test results from this visit will be discussed in further detail at your follow-up appointment, if applicable. Discharge Plan Admission Attending Provider: Alon Boland Primary Care Provider: Hao Membreno Discharge Orders/Prescriptions Prescriptions: No Action benazepril 20 mg tablet 20 mg PO DAILY Patient Comments: TAKE 1 TABLET BY MOUTH EVERY DAY sertraline 50 mg tablet 50 mg PO DAILY potassium chloride 20 mEq tablet extended release 20 meq PO DAILY Qty: 14 0RF lidocaine-prilocaine 2.5-2.5 % cream 1 applic topical ONCE PRN (Reason: port access) 30 Days Qty: 30 2RF cholecalciferol (vitamin D3) 2,000 UNIT capsule 2,000 unit PO DAILY omeprazole 20 mg capsule,delayed release(DR/EC) 20 mg PO Q OTHER DAY PRN (Reason: GERD) warfarin 3 mg tablet 3 mg PO QHS Protocol: Dose Management Condition: Thursday Dose/Route: 0 mg Instruction: 0 tablets Condition: Thursday Dose/Route: 0 mg Instruction: 0 tablets Condition: Thursday Dose/Route: 6 mg Instruction: 2 x 3 mg tablets Condition: Thursday Dose/Route: 6 mg Instruction: 2 x 3 mg tablets Condition: Dose/Route: 6 mg Instruction: 2 x 3 mg tablets Condition: Thursday Dose/Route: 0 mg Instruction: 0 tablets Condition: Thursday Dose/Route: 0 mg Instruction: 0 tablets Protocol Text: Adjustment Start Date: Thursday07/14/23 INR Value: 1.3 INR Date: 07/14/23 Recheck Date: 07/27/23 Rx Instructions: Dose change to 8mg daily: needs 5mg +3mg tabs furosemide 40 mg tablet 40 mg PO DAILY rosuvastatin [Crestor] 5 mg tablet 5 mg PO Q OTHER DAY Qty: 45 3RF aspirin [Enteric Coated Aspirin] 81 mg tablet,delayed release (DR/EC) 81 mg PO DAILY Qty: 90 3RF diltiazem HCl 300 mg capsule,extended release 24hr 300 mg PO DAILY Qty: 90 3RF Other Ambulatory Orders: 12 Lead EKG (Routine) Timeframe: [id number] Facility: [facility] - Location: Cardiovascular Services Ordered By: Dr. Alon Boland Referrals / Follow Up: Hao Membreno MD [Primary Care Provider] - Disposition Disposition (needs filled in before D/C Order can be placed): Home, Self Care
[2023-08-03] MEDS: Cefazolin 2 GM in 0.9% Normal Saline (100mL Bag) 100 ML IV (09:21)
[2023-08-03] MEDS: BUPIVACAINE LIPOSOME/PF 20 ML VIAL OPERA.SITE (10:10)
[2023-08-03] MEDS: Bupivacaine Mpf 0.5% 30 ML VIAL (10:10)
[2023-08-03 10:18] VITALS: BP 107/72; BP 152/68; PULSE 70; RESP 16; TEMP 36.6; O2SAT 97
--- NOTE | 2023-08-03 10:19 | OP.PCM_ITS ---
Report of Operation Date of Procedure: 08/03/23 Pre-Operative Diagnosis: Rectal cancer Post-Operative Diagnosis: Same Surgery/Procedure Performed:: Right internal jugular 6 [place] PowerPort placement Reference [id number], lot [id number], expiry date 04/13/2024 Description of Surgical Findings:: Timeout informed consent was obtained. 63-year-old gentleman was taken to the operating placed on the table underwent monitored anesthesia care. Ancef 3 g given intravenously. The right neck and chest were sterilely prepped and draped. 2.5% Marcaine mixed 50-50 with Exparel was split used as local anesthetic. A total of 20 cc was used. Under ultrasound guidance local was instilled into the right neck. Then a micropuncture needle was used to gain access the right internal jugular vein followed by micropuncture wire. Local instilled down upon the chest wall. Second intercostal space midclavicular line transverse incision was created electrocautery dissection was used to make a subcutaneous pocket the tubing was tunneled from the chest to the neck then I exchanged out with a micropuncture sheath 035 J-wire fluoroscopy demonstrated good positioning sheath dilator was inserted the wire and dilator removed catheter advanced through the sheath the sheath was split the catheter was positioned using fluoroscopy at 26 cm was connected the port seemed to aspirate well I closed the port site and then it would not aspirate so I reopen the port site shorten the tubing to 25 cm used a pressure attachment advised to be attached to the port placed the port in the pocket secured that with 2-0 silk sutures to close the port site with interrupted 3-0 Vicryl subdermal stitch the neck was closed with 5-0 Vicryl subdermal stitch the port was vaccinated aspirates easily and was flushed with saline and 2 cc heparinized saline. Steri-Strip Telfa OpSite dressings applied. Sponge and instrument and needle counts were reported to surgically correct. Blood loss minimal. No apparent complications he tolerated procedure well he was taken to the recovery room in stable condition with stat portable chest x-ray is pending. Specimens none. Drains none. Blood loss minimal. Alon Boland M.D., F.A.C.S. Surgeon: Alon Boland Type of Anesthesia: Local MAC Anesthesiologist: Harish Alexander
--- NOTE | 2023-08-03 10:26 | RAD_ITS ---
STUDY: X-RAY CHEST REASON FOR EXAM: Male, 63 years old. Port placement. TECHNIQUE: Single frontal view of the chest on 2 images. COMPARISON: July 19, 2023. FINDINGS: Placement of right internal jugular catheter with tip projected over the mid-SVC. Stable cardiomegaly with aortic tortuosity, prominent central pulmonary arteries and hyperinflation. No acute or emergent finding. No abnormality of the visualized soft tissue structures of the upper abdomen. RAD/Chest 1 View (Portable) IMPRESSION: Placement of right internal jugular catheter without complications. Stable chest with no acute or active cardiopulmonary disease. Electronically Signed: Graham Saba MD at 10:35 EST ,
[2023-08-03 10:27] VITALS: BP 107/72; BP 152/68; PULSE 74; RESP 16; O2SAT 98
[2023-08-03 10:30] VITALS: BP 107/54; BP 152/68; PULSE 70; RESP 16; O2SAT 98
[2023-08-03 10:35] VITALS: BP 111/65; BP 152/68; PULSE 73; RESP 16; TEMP 36.9; O2SAT 97
[2023-08-03 11:01] VITALS: BP 152/68
== END 2023-08-03 11:09 | disposition home or self-care (01) ==
LOC: SDC 07:52 → AC 07:53
PROVIDERS: PCP Family Medicine; Visit Provider Surgery
PROC: (CPT 36561; principal; 2023-08-03 09:40)
DX: Z45.2 Encounter for adjustment and management of vascular access device (principal); C20 Malignant neoplasm of rectum; I48.91 Unspecified atrial fibrillation; Z68.41 Body mass index [BMI] 40.0-44.9, adult; I10 Essential (primary) hypertension; E78.00 Pure hypercholesterolemia, unspecified; K21.9 Gastro-esophageal reflux disease without esophagitis; Z79.01 Long term (current) use 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s; E66.9 Obesity, unspecified; Z79.82 Long term (current) use of aspirin; Z79.899 Other long term (current) drug therapy
CPT/HCPCS: 36561; 00532; 36416; 71045; 77001; 85610; C1894; J7120

== ENCOUNTER 2023-08-18 07:32 | Outpatient (RCR) | payer OTHER, SELFPAY ==
[2023-07-14 22:50] VITALS: BMI 38.9
[2023-08-18 08:19] LABS: International Normalized Ratio 3.5; Prothrombin Time (Protime)PT. 35.4 SECONDS (11.7-14.9)
== END 2023-09-13 18:00 | disposition home or self-care (01) ==
LOC: LAB 07:32
PROVIDERS: Family Provider Family Medicine; PCP Family Medicine; Referring Provider Nurse Practitioner Family; Visit Provider Nurse Practitioner Family
DX: I48.0 Paroxysmal atrial fibrillation (principal); Z79.01 Long term (current) use 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s
CPT/HCPCS: 36591; 85610; A4216

== ENCOUNTER 2023-09-04 08:00 | Outpatient (CLI) | payer OTHER, SELFPAY ==
[2023-09-04 08:57] LABS: International Normalized Ratio 2.5
== END 2023-09-04 08:01 | disposition home or self-care (01) ==
LOC: MEDOUTP 08:01
PROVIDERS: PCP Family Medicine; Referring Provider Nurse Practitioner Family; Visit Provider Nurse Practitioner Family
DX: I48.0 Paroxysmal atrial fibrillation (principal); Z79.01 Long term (current) use 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s
CPT/HCPCS: 36591; 85610; A4216

== ENCOUNTER 2023-10-25 08:39 | Emergency (ER) | payer MEDICARE, OTHER, SELFPAY ==
[2023-10-25 08:40] VITALS: BP 160/55; PULSE 86; RESP 18; TEMP 35.9; O2SAT 98; BMI 42.4
--- NOTE | 2023-10-25 09:10 | CT_ITS ---
STUDY: CT ABDOMEN AND PELVIS WITH CONTRAST - URINARY TRACT REASON FOR EXAM: Male, 63 years old. RLQ abd and flank pain RADIATION DOSAGE (If Supplied By Facility): CTDIvol = ( 40.34 ) mGy, DLP = ( 1365.84 ) mGycm TECHNIQUE: IV 100mL [id number]-[id number] was administered. Transaxial images were obtained from the dome of the diaphragm to the symphysis pubis subsequent to intravenous contrast administration. Multiplanar coronal and sagittal images were reformatted. Individualized Dose Optimization Techniques Were Used For This CT. COMPARISON: July 19, 2023 FINDINGS: The visualized lung bases are unremarkable. The visualized portions of the heart are within normal limits. There is decreased attenuation of the liver consistent with steatosis. There is hepatomegaly Normal gallbladder and extrahepatic biliary system. Normal spleen. Normal pancreas. Normal bilateral adrenal glands. Normal visualized stomach. Normal small intestine. There are multiple colonic diverticula consistent with diverticulosis. The appendix is surgically absent. Normal abdominal aorta. No retroperitoneal adenopathy. Normal right kidney. Normal left kidney. Normal urinary bladder. Normal abdominal wall. There are diffuse degenerative changes of the visualized lumbar spine. There is a stable grade 1 anterior spondylolisthesis of L4 on L5. There is a stable deformity of the left femoral neck, may be secondary to an old injury. CT/Abdomen/Pelvis W IV Cont ONLY IMPRESSION: Fatty infiltration of the liver associated with hepatomegaly. Colonic diverticulosis. Electronically Signed: Nica Kumar MD at 11:10 EST ,
--- NOTE | 2023-10-25 09:11 | ED.VIS.GI ---
HPI HPI - GI History of Present Illness Chief Complaint: Flank Pain Informant: patient Abdominal Pain/Flank Pain Onset: Days Context: Gradual Onset Timing: Continuous Quality: Aching Location: RLQ and Right Flank Current Severity: Moderate Maximum Severity: Moderate Worsened by: Movement Relieved by: Nothing Nausea/Vomiting/Emesis GI Symptom: Negative for Nausea or Vomiting Diarrhea/Melena/Hematochezia GI Symptom: Negative for Diarrhea, Melena or Hematochezia Associated Symptoms Associated Symptoms: Negative for Dysuria, Frequency, Hematuria or Urgency Narrative Narrative: 63-year-old male history of prior kidney stone x 1., Prior DVT and PE on Coumadin and rectal cancer for which she is undergoing chemotherapy as previously had radiation therapy also. Surgery is possibly pending. States on Thursday he got, right lower flank right lower quadrant abdominal pain sometimes radiates to the left side also from his back. Denies any fall injury or trauma. No dysuria. No change in his bowel movements. Worse with movement. Denies any fever or chills. Said this really does not feel like his prior kidney stone. Prior similar symptoms: Yes Recent Illness/Hospitalization: No PFSH PFSH Medical History Abdominal pain Acute cough Afib Arthritis Asthma Benign essential hypertension BiPAP (biphasic positive airway pressure) dependence Cancer Cardiology follow-up encounter COVID-19 Dry skin DVT (deep venous thrombosis) Dyspnea on exertion Edema Encounter for education Fatigue Gastric reflux Gastroesophageal reflux disease High cholesterol History of atrial fibrillation History of echocardiogram History of edema History of steroid therapy History of venous thromboembolism Hyperlipidemia Hypertension Hypokalemia Kidney stone intermediate current use 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 Non-smoker CORRINA (obstructive sleep apnea) Pulmonary embolism (06/10/18) Rectal cancer Rectal mass Sinusitis Thyroid disease Weight gain with edema Home Medications cholecalciferol (vitamin D3) 50 mcg (2,000 unit) capsule 2,000 unit PO DAILY supplement 06/16/19 [History Last Taken 06/16/19] furosemide 40 mg tablet 40 mg PO DAILY diuretic 06/16/19 [History Last Taken 08/02/23] benazepril 20 mg tablet 20 mg PO DAILY blood pressure 01/09/21 [History Last Taken 08/02/23] sertraline 50 mg tablet 50 mg PO DAILY depression 01/09/21 [History Last Taken Unknown] omeprazole 20 mg capsule,delayed release 20 mg PO Q OTHER DAY PRN GERD 10/25/21 [History Last Taken 08/02/23] rosuvastatin 5 mg tablet (Crestor) 5 mg PO Q OTHER DAY cholesterol #45 tabs 12/25/22 [Rx Last Taken Unknown] aspirin 81 mg tablet,delayed release (Enteric Coated Aspirin) 81 mg PO DAILY heart #90 tabs 01/11/23 [Rx Last Taken 08/02/23] diltiazem HCl 300 mg capsule,extended release 24 hr 300 mg PO DAILY heart #90 caps 04/30/23 [Rx Last Taken 08/02/23] warfarin 3 mg tablet 3 mg PO QHS blood thinner 07/09/23 [History Last Taken 07/30/23] lidocaine-prilocaine 2.5 %-2.5 % topical cream 1 applic topical ONCE PRN port access 30 days #30 grams 07/29/23 [Rx Last Taken Unknown] warfarin 5 mg tablet 5 mg PO DAILY 08/10/23 [History Last Taken Unknown] diclofenac sodium 1 % topical gel See Rx Instructions .Route .COMPLEX #100 grams 08/31/23 [Rx Last Taken Unknown] potassium chloride 20 mEq tablet,extended release 20 meq PO ONCE low potassium #30 tabs 09/15/23 [Rx Last Taken Unknown] warfarin 1 mg tablet 1 mg PO .COMPLEX 10/12/23 [History Last Taken Unknown] oxycodone-acetaminophen 5 mg-325 mg tablet (Percocet) 1 tab PO Q6H PRN pain 3 days #10 tabs 10/25/23 [Rx Last Taken Unknown] prednisone 20 mg tablet 40 mg (2 x 20 mg) PO DAILY 7 days #14 tabs 10/25/23 [Rx Last Taken Unknown] Allergy/AdvReac Type Severity Reaction Status Date / Time apixaban [From Eliquis] AdvReac Severe Pt formed Verified 10/25/23 08:40 PE's in spite of taking routinely simvastatin AdvReac Severe Myalgias Verified 10/25/23 08:40 doxycycline AdvReac Intermediate GI upset Verified 10/25/23 08:40 Family History Mother CAD (coronary artery disease) Diabetes Hypertension Hyperlipidemia Heart disease Father CVA (cerebral vascular accident) Surgical History History of appendectomy History of appendectomy History of cardiac catheterization History of colonoscopy (~06/2016) History of hip surgery History of left heart catheterization (10/21/18) History of left inguinal hernia repair Social History Smoking Status: Never smoker alcohol intake: never substance use type: does not use caffeine: Yes Type: carbonated beverages Number of servings: 1 ROS ROS ED ROS Narrative Right lower flank and abdominal pain. Denies any nausea vomiting diarrhea. No constipation. No dysuria or hematuria. No fever or chills. Review of Systems ROS Unobtainable: Denies due to encephalopathy Constitutional Constitutional ED: Denies chills or fever(s) ENT ENT ED: Denies ear pain Cardiovascular Cardiovascular: Denies chest pain Respiratory/Chest Respiratory/Chest: Denies cough or dyspnea Gastrointestinal Gastrointestinal: Reports abdominal pain; Denies constipation, diarrhea, melena, nausea or vomiting Genitourinary Genitourinary ED: Denies dysuria, hematuria or urinary frequency Musculoskeletal Musculoskeletal: Denies arthralgias Neurologic Neurologic: Denies headache(s) Psychiatric Psychiatric: Denies anxiety or depression Endocrine Endocrinology: Denies polydipsia Hematologic/Lymphatic Hematologic/Lymphatic: Denies easy bleeding Allergic/Immunologic Allergic/Immunologic ED: Denies mouth swelling or tongue swelling EXAM Physical Exam Narrative Exam Narrative: 63-year-old male no acute distress vital signs stable afebrile. Sitting upright in bed. at bedside. H EENT exam unremarkable. Lungs clear to auscultation bilaterally. Heart regular rhythm no murmur rate about 85. Chest wall and ribs nontender. Abdomen soft, nontender, nondistended, normal bowel sounds without peritoneal signs. No hernia or mass. Right upper or right lower quadrant have no reproducible pain. External exam is unremarkable and nontender. Back and flank is nontender. There is no reproducible pain. It is worse when he went from a lying to a sitting upright position. There is no rash or shingles. There is no signs of trauma. Moving all 4 extremities. Neurovascularly intact. No edema in his lower extremities. 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 Bilaterally. Normal dorsi plantarflexion bilaterally. Neurologically is awake and alert with no focal motor deficits. Benign exam. Const Vital Signs: 10/25/23 08:40 10/25/23 10:52 Temperature 96.7 F L Temperature Source Temporal Pulse Rate 86 50 L Respiratory Rate 18 16 Blood Pressure 160/55 H 138/63 H Blood Pressure Mean 90 88 Pulse Ox 98 96 Oxygen Delivery Method Room Air Room Air Positive well nourished and well developed; Negative for cachectic, contractures or unkempt General Appearance ED: well developed and NAD; Negative for unkempt, cachectic, contractures or pallor Nutritional Appearance: Negative for cachectic HEENT Reports moist mucous membranes normocephalic and atraumatic; Negative for trauma or tenderness Eyes PERRL and EOMs intact bilaterally General Eye ED: Negative for pale conjunctiva or scleral icterus Neck no lymphadenopathy, supple and no JVD General: Negative for tenderness Carotids: Negative for other Lymph Lymphatic: Negative for other Resp normal respiratory effort and clear to auscultation bilaterally Effort and Inspection: Negative for respiratory distress Auscultation: Negative for rales, rhonchi or wheezes Cardio regular rate, regular rhythm, S1 normal heart sound, S2 normal heart sound and no murmurs Rate: Negative for bradycardia or tachycardic Rhythm: Negative for abnormal rhythm GI non-tender, non-distended and no masses Inspection: Negative for abdominal distention Auscultation: normoactive bowel sounds Palpation: soft; Negative for tender, guarding, pulsatile mass or rebound tenderness present Back/Spine no CVA tenderness General Back: Negative for CVA tenderness Cervical Spine: Negative for cervical spine tenderness Thoracic Spine / Upper Back: Negative for thoracic spinal tenderness Lumbar Spine / Lower Back: Negative for lumbar spinal tenderness Coccyx: Negative for other Extremity full ROM General Extremety ED: Negative for edema or tenderness General Extremity: Negative for edema Neuro CN's II-XII intact bilaterally and moves all extremities Sensorium / Orientation: alert, oriented to person, oriented to place and oriented to time; Negative for orientation impaired or confused Motor Exam: strength 5/5 throughout Psych mental status grossly normal and thought process normal Appearance: Negative for unkempt Attitude: No agitated Mood & Affect: Negative for depressed, anxious or tearful Skin no wounds General Skin Exam: Negative for jaundice or pallor Lesions: no lesions Rashes: no rashes Trauma: Negative for abrasion Nails: Negative for discolored MDM MDM MDM Narrative Medical decision making narrative: 63-year-old male with 3-day history of right flank and right lower quadrant abdominal pain. Not reproducible on exam. Clinically unlikely to be appendicitis. Seems too low to be kidney stone. It may be musculoskeletal back pain that is worse when he went from a lying to a seated upright position in bed. There is no rash like shingles. CAT scan labs and urinalysis are being obtained. Patient states its moderate pain he is being given morphine IV and Zofran. Repeat exam at 12PM.Patient doing well. No change. Abdomen benign. Again pain primarily with movement.We went over all his test results. We placed on prednisone 40 mg a day for a week. 10 Percocet for more severe pain. And outpatient follow-up. History & Record Review Discussion w/independent historian: Patient Additional record(s) reviewed:: Prior inpatient record, Prior outpatient record, Prior ED visit and Prior labs Lab Data Attestation: I reviewed the patient's lab results. Lab results narrative: CBC shows a white count of 4. H&H 10 and 29. Platelets 152. Patient is on Coumadin his INR is 3.6. Electrolytes show sodium 146. Potassium 3.4. Gap of 9. BUN of 23 and creatinine of 1. Glucose 165. UA normal. CAT scan shows no significant cause of his pain. Labs: Laboratory Results - last 24 hr 10/25/23 10/25/23 09:25 10:45 WBC 4.1 L RBC 2.85 L Hgb 10.2 L Hct 29.8 L MCV 104.6 H MCH 35.8 H MCHC 34.2 RDW Std Deviation 66.4 H RDW Coeff of [place] 18.2 H Plt Count 152 MPV 9.0 Immature Gran % (Auto) 0.700 Neut % (Auto) 82.9 H Lymph % (Auto) 6.1 L [place] % (Auto) 9.1 Eos % (Auto) 0.5 Baso % (Auto) 0.7 Absolute Neuts (auto) 3.4 Absolute Lymphs (auto) 0.25 L Nucleated RBC % 0 Differential Comment SCANNED Hypochromasia 1+ Anisocytosis 2+ Microcytosis 1+ Macrocytosis 1+ PT 36.1 H INR 3.6 Sodium 146 H Potassium 3.4 L Chloride 114 H Carbon Dioxide 23.0 Anion Gap 9 BUN 23 H Creatinine 1.03 Estim Creat Clear Calc 101.49 Est GFR (MDRD) Af Amer 93 Est GFR (MDRD) Non-Af 77 BUN/Creatinine Ratio 22.3 H Glucose 165 H Calcium 8.2 L Urine Color Yellow Urine Clarity Clear Urine pH 6.5 Ur Specific [place] 1.015 Urine Protein 15 H Urine Glucose (UA) 250 H Urine Ketones Negative Urine Occult Blood 10 H Urine Nitrite Negative Urine Bilirubin Negative Urine Urobilinogen Normal Ur Leukocyte Esterase Negative Urine RBC 0 SEEN Urine WBC 0 SEEN Ur Squamous Epith Cells 0-5 SEEN Urine Bacteria 0 SEEN Urine Mucus 0 SEEN Radiography Diagnostic Testing: Clinical Impression(s) from Imaging Studies Abdomen/Pelvis CT 10/25/23 09:10 IMPRESSION: Fatty infiltration of the liver associated with hepatomegaly. Colonic diverticulosis. Electronically Signed: Nica Kumar MD at 11:10 EST , Discharge Plan Triage Chief Complaint: Flank Pain ED Provider: Glenn Coreas Dx/Rx/DC Orders Clinical Impression: Bilateral flank pain, Chronic anticoagulation, History of pulmonary embolus (PE) Instructions: ED Flank Pain, Uncertain Cause Prescriptions: New prednisone 20 mg tablet 40 mg PO DAILY 7 Days Qty: 14 0RF oxycodone-acetaminophen [Percocet] 5-325 mg tablet 1 tab PO Q6H PRN (Reason: pain) 3 Days Qty: 10 0RF No Action benazepril 20 mg tablet 20 mg PO DAILY Patient Comments: TAKE 1 TABLET BY MOUTH EVERY DAY sertraline 50 mg tablet 50 mg PO DAILY lidocaine-prilocaine 2.5-2.5 % cream 1 applic topical ONCE PRN (Reason: port access) 30 Days Qty: 30 2RF potassium chloride 20 mEq tablet extended release 20 meq PO ONCE Qty: 30 1RF cholecalciferol (vitamin D3) 2,000 UNIT capsule 2,000 unit PO DAILY omeprazole 20 mg capsule,delayed release(DR/EC) 20 mg PO Q OTHER DAY PRN (Reason: GERD) warfarin 3 mg tablet 3 mg PO QHS Protocol: Dose Management Condition: Thursday Dose/Route: 3 mg Instruction: 1 x 3 mg tablet Condition: Thursday Dose/Route: 1 mg Instruction: 1 x 1 mg tablet Condition: Thursday Dose/Route: 3 mg Instruction: 1 x 3 mg tablet Condition: Thursday Dose/Route: 3 mg Instruction: 1 x 3 mg tablet Condition: Dose/Route: 3 mg Instruction: 1 x 3 mg tablet Condition: Thursday Dose/Route: 3 mg Instruction: 1 x 3 mg tablet Condition: Thursday Dose/Route: 3 mg Instruction: 1 x 3 mg tablet Protocol Text: Adjustment Start Date: Thursday10/12/23 INR Value: 3.2 INR Date: 10/12/23 Recheck Date: 10/26/23 Rx Instructions: Dose change to 8mg daily: needs 5mg +3mg tabs furosemide 40 mg tablet 40 mg PO DAILY rosuvastatin [Crestor] 5 mg tablet 5 mg PO Q OTHER DAY Qty: 45 3RF aspirin [Enteric Coated Aspirin] 81 mg tablet,delayed release (DR/EC) 81 mg PO DAILY Qty: 90 3RF diltiazem HCl 300 mg capsule,extended release 24hr 300 mg PO DAILY Qty: 90 3RF warfarin 5 mg tablet 5 mg PO DAILY Protocol: Dose Management Condition: Thursday Dose/Route: 3 mg Instruction: 1 x 3 mg tablet Condition: Thursday Dose/Route: 1 mg Instruction: 1 x 1 mg tablet Condition: Thursday Dose/Route: 3 mg Instruction: 1 x 3 mg tablet Condition: Thursday Dose/Route: 3 mg Instruction: 1 x 3 mg tablet Condition: Dose/Route: 3 mg Instruction: 1 x 3 mg tablet Condition: Thursday Dose/Route: 3 mg Instruction: 1 x 3 mg tablet Condition: Thursday Dose/Route: 3 mg Instruction: 1 x 3 mg tablet Protocol Text: Adjustment Start Date: Thursday10/12/23 INR Value: 3.2 INR Date: 10/12/23 Recheck Date: 10/26/23 diclofenac sodium 1 % gel See Rx Instructions .ROUTE .COMPLEX Qty: 100 2RF Dose Instruction: 2 G TOPICALLY TWICE A DAY APPLY TO HANDS AND FEET TWICE DAILY Rx Instructions: 2 G TOPICALLY TWICE A DAY APPLY TO HANDS AND FEET TWICE DAILY warfarin 1 mg tablet 1 mg PO .COMPLEX Protocol: Dose Management Condition: Thursday Dose/Route: 3 mg Instruction: 1 x 3 mg tablet Condition: Thursday Dose/Route: 1 mg Instruction: 1 x 1 mg tablet Condition: Thursday Dose/Route: 3 mg Instruction: 1 x 3 mg tablet Condition: Thursday Dose/Route: 3 mg Instruction: 1 x 3 mg tablet Condition: Dose/Route: 3 mg Instruction: 1 x 3 mg tablet Condition: Thursday Dose/Route: 3 mg Instruction: 1 x 3 mg tablet Condition: Thursday Dose/Route: 3 mg Instruction: 1 x 3 mg tablet Protocol Text: Adjustment Start Date: Thursday10/12/23 INR Value: 3.2 INR Date: 10/12/23 Recheck Date: 10/26/23 Rx Instructions: 1 mg orally as directed for dose changes; Primary Care Provider: Hao Membreno Referrals: Hao Membreno MD [Primary Care Provider] - As Needed Activity Restrictions/Additional Instructions: Percocet for more severe pain. Prednisone daily for a week Follow-up with your doctor if not improving. Disposition Disposition: Home, Self Care
[2023-10-25] MEDS: Ondansetron 4 MG/2 ML Vial IV (09:27)
[2023-10-25] MEDS: morphine 8 MG/ML Syringe IV (09:27)
--- OUTSIDE RECORDS SUMMARY | 2023-10-25 09:41 | XMS RPT_ITS | CCD ---
Author Name Unknown Address [id number] [place] [address] Organization [facility] Care Team Providers Care Irrigation Teacher Name Role Phone DEANNA ACKERMAN Unavailable Unavailable JT GUSTAFSON Unavailable Unavailable Jt Stokes MD Primary Care Provider Andre Quesada MD Unavailable JT STOKES Primary Care Unavailable ERNESTO AGUIAR Referring Unavailable JT STOKES Primary Care Unavailable ERNESTO AGUIAR Attending Unavailable JT STOKES Referring Unavailable JT STOKES Primary Care Unavailable ERNESTO AGIUAR Attending Unavailable JT STOKES Referring Unavailable JT STOKES Primary Care Unavailable ERNESTO AGUIAR Referring Unavailable JT STOKES Primary Care Unavailable ERNESTO AGUIAR Referring Unavailable JT STOKES Primary Care Unavailable Medications Completed/Discontinued Medications Medication Drug Class(es) Dates Sig (Normalized) Sig (Original) aspirin 81 mg delayed release oral tablet (8 sources) Platelet Aggregation Inhibitor, Nonsteroidal Anti-inflammatory Drug take 1 tablet by mouth once daily aspirin, enteric coated (ASPIRIN, ENTERIC COATED) 81 mg EC tablet Take 81 mg by mouth once daily. 0 Active Problems Active Problems Problem Classification Problem Date Documented Da te Episodic/Chronic Anal and rectal conditions (1 source) Other specified diseases of anus and rectum; Translations: [Rectal mass] Onset: 07-09-2023 Episodic Cancer of rectum and anus (4 sources) Malignant tumor of rectum; Translations: [Malignant neoplasm of rectum] Onset: 07-13-2023 07-13-2023 Chronic Past or Other Problems Problem Classification Problem Date Documented Da te Episodic/Chronic Other and unspecified benign neoplasm (8 sources) History of polyp of colon; Translations: [Personal history of colonic polyps] Onset: 06-30-2016 06-30-2016 Episodic Results Test Name Value Interpretation Reference Range Facil ity Vital Signs Date Time Vital Sign Value Performing Clinician Faci lity 08-04-2023 12:050 Body height 180.3 cm Ernesto Aguiar MD Work Phone: [facility] 08-04-2023 12:050 Body weight 129.73 kg Ernesto Aguiar MD Work Phone: [facility] Encounters Encounter Date Encounter Type Care Provider Facility Start: 08-04-2023 End: 08-04-2023 ambulatory ERNESTO AGUIAR Facility:[facility] Start: 08-04-2023 End: 08-04-2023 Patient encounter procedure Ernesto Aguiar MD Work Phone: Colorectal Surgery Procedures Date Procedure Procedure Detail Performing Clinician Start: 08-04-2023 Sigmoidoscopy flx dx w/collj spec br/wa if pfrmd [facility] Provider Start: 07-27-2023 Ct thorax w/contrast material Ernesto Aguiar MD Work Phone: Start: 07-27-2023 Ct abdomen & pelvis w/contrast material Ernesto Aguiar MD Work Phone: Start: 07-13-2023 Mri pelvis w/o & w/c ontrast material Ernesto Aguiar MD Work Phone: Start: 07-11-2016 Colonoscopy Kesha glass RN Plan of Treatment Date Care Activity Detail Author Start: 11-12-2030 Urine microalbumin profile DTa P,Tdap,Td Vaccine (2 - Td or Tdap) [facility] Start: 08-04-2028 Sigmoidoscopy Sigmoidoscopy [facility] Start: 05-12-2028 SIGMOIDOSCOPY SIGMOIDOSCOPY [facility] Start: 08-05-2023 Colorectal Cancer Screening Colorectal Cancer Screening [facility] Start: 05-15-2023 Covid-19 Vaccine ( season) Covid-19 Vaccine () [facility] Start: 05-15-2023 Influenza vaccination [facility] Start: 05-13-2023 COLORECTAL CANCER SCREENING COLORECTAL CANCER SCREENING [facility] Start: 2023 ADVANCE DIRECTIVE DISCUSSION ADVANCE DIRECTIVE DISCUSSION [facility] Start: 2023 Pneumococcal Vaccine : 65+ (1 - PCV) Pneumococcal Vaccine: 65+ (1 - PCV) [facility] Start: 2023 PNEUMOCOCCAL: 65+ (1 - PCV) PNEUMOCOCCAL: 65+ (1 - PCV) [facility] Start: 09-14-2022 DEPRESSION ASSESSMENT DEPRESSION ASS ESSMENT [facility] Start: 04-03-2022 COVID-19 VACCINE (4 - Moderna series) COVID-19 VACCINE (4 - Moderna series) [facility] Start: 07-11-2019 Colonoscopy COLONOSCOPY [facility] Start: 2018 RSV Vaccine (1 - 1-d ose 60+ series) RSV Vaccine (1 - 1-dose 60+ series) [facility] Start: 2013 PROSTATE CANCER SCRE ENING DISCUSSION PROSTATE CANCER SCREENING DISCUSSION [facility] Start: 2008 SHINGRIX VACCINE (1 of 2) SHINGRIX V ACCINE (1 of 2) [facility] Start: 2003 COLOGUARD (FIT-DNA) COLOGUARD (FIT-D NA) [facility] Start: [address] COLONOGRAPHY [facility] Start: 2003 DIABETES SCREEN DIABETES SCREEN [facility] Start: 2003 Diabetes Screening Diabetes Screenin g [facility] Start: 2003 FECAL OCCULT BLOOD FECAL OCCULT BLOO D [facility] Start: 1993 Lipid 1996 panel - S vi or Plasma Lipid Screening [facility] Start: 1993 LIPID SCREEN LIPID SCREEN [facility] Start: 1977 Urine microalbumin profile DTAP,TDAP ,TD (1 - Tdap) [facility] Start: 1976 HEPATITIS C SCREENING HEPATITIS C SC REENING [facility] Start: 1976 [facility] Immunizations Immunization Date Immunization Notes Care Provider Asad dickey 08-04-2022 influenza virus vacc ine, unspecified formulation Kesha Quinn RN [facility] Payers Date Payer Category Payer Private Health Insurance [id number] 2022 Private Health Insurance [id number] 2017 Unknown [id number] Social History Date Type Detail Facility Start: 05-12-2023 Tobacco smoking stat us NHIS Never smoked tobacco [facility] Start: 05-12-2023 Tobacco use and exposure Smoke less tobacco non-user [facility] Start: 05-12-2023 End: 08-04-2023 Alcohol intake Current drinker of alcohol (finding) [facility] Start: 05-12-2023 End: 08-04-2023 History of Social function [facility] Start: 05-12-2023 End: 08-04-2023 Tobacco use panel [facility] National Score (1-10 0), lower number is lower risk 54 [facility] Start: 1960 Sex Assigned At Male C [facility] Start: 05-11-2023 Gender identity Identifies as male gender (finding) [facility] Start: 05-11-2023 Sexual orientation Heterosexual (fin ding) [facility] Clinical Notes 05-25-2023 to 08-04-2023 Ernesto Aguiar MD - 08/04/2023 1:00 PM ESTTelephone Encounter - Jonna Cartwright PA-C - 07/27/2023 4:19 PM Zenaida Buchanan RT(R) - 07/27/2023 2:00 PM EST Note Date & Type Note Facility 08-04-2023 Note HNO ID: [id number] Author: Ernesto Aguiar MD Service: ? Author Type: Physician Type: Progress Notes Filed: 08/04/2023 12:55 PM Note Text: COLORECTAL SURGERY Follow-up August 04, 2023 Chief complaint: rectal cancer follow-up HPI: Migue Gunter is a 63 year old year old male with a history of pAF, VTE (warfarin), CORRINA, HTN, GERD and cT3 N1 M0 locally advanced rectal adenocarcinoma. He completed chemoradiation 06/01/23-07/07/23. Here for restaging prior to proceeding with consolidation FOLFOX. Doing well overall. Was initially due to start chemo yesterday but held off so he could come to clinic appointment. Has had some fecal urgency and loose stools. 07/28/[address] Alcala 07/27/23 CT Chest IMPRESSION: No CT evidence of acute abnormality. No findings of metastatic disease in the thorax. 07/27/23 CT ABD/PEL IMPRESSION: No metastatic disease in the abdomen or pelvis. 07/13/23 MRI RECTUM IMPRESSION: PARTIAL RESPONSE, WITH DECREASE IN INTRALUMINAL TUMOR THICKNESS AND DECREASED SIZE OF MESORECTAL FAT TUMOR DEPOSIT. TWO SUSPICIOUS LYMPH NODES ARE AGAIN NOTED. 0.7 CM ENHANCING FOCUS IN THE LEFT SACRUM IS INDETERMINATE. CLOSE ATTENTION ON FOLLOW-UP IS RECOMMENDED. Since 05/20/2023, post treatment primary tumor assessment: Incomplete response (likely residual tumor). mrTRG: Grade 4 - Partial response Suspicious Mesorectal lymph nodes: Yes. Suspicious Extramesorectal lymph nodes: No. 07/09/23 CEA 1.8 05/29/23 MDT Tumor board discussion and recommendation: Neoadjuvant therapy recommended: Yes Total Neoadjuvant Therapy: Long-course chemoradiation (5 weeks) followed by consolidation chemotherapy (4 months) if responsive to chemoradiotherapy. After completion of CORKY, assessment for complete clinical response and discussion regarding active surveillance versus surgery.. Anticipated surgical treatment: Low anterior resection. Vs APR Anticipated en bloc resection: No Anticipated metastasectomy: No. Clinical Trial Candidate: No. Other Discussion: Will keep an eye out on chest and see for repeat staging after sees oncology and radiology. Physical Exam: Ht 180.3 cm (5' 11 ) Wt 129.7 kg (286 lb) BMI 39.89 kg/m? General - awake, alert, no acute distress Abdominal - soft, nontender, nondistended Anorectal: Perianal skin is intact. No erythema, induration or excoriation. No fissure, fistula or external hemorrhoids. Digital Rectal Exam: Anus: closed Resting tone: NORMAL Squeeze tone: NORMAL Mobile Disc Jockey present: Yes, Miranda Gutierrez Palpable mass at about 3-4cm, left lateral, mobile, not fixed Flexible sigmoidoscopy: Procedure: The patient was placed in left lateral position. After digital exam with a lubricated finger, the scope was easily inserted to 20 cm. Findings: Residual tumor at about 4cm from anal verge - left lateral, smaller compared to prior. Not obstructing. The remainder of the sigmoid, rectum and anal canal were entirely normal. Biopsies were not taken. Assessment Medical Decision Making: Assessment AND Diagnosis: Migue Gunter is a 63 year old year old male with a history of pAF, VTE (warfarin), CORRINA, HTN, GERD and cT3 N1 M0 locally advanced rectal adenocarcinoma. He completed chemoradiation 06/01/23-07/07/23. Here for restaging prior to proceeding with consolidation FOLFOX. Partial response endoscopically and on imaging Data Reviewed: Tests AND Documents Reviewed/ordered: Review of prior notes from medical record Review of Pathology Review of Imaging: CT Abdomen, CT Pelvis, MRI Pelvis, CT Chest Review of Labs: CEA Review of Procedures / Tests: Flexible Sigmoidoscopy I have independently interpreted: CT Abdomen, CT Pelvis, MRI Pelvis, CT Chest I have discussed Migue Gunter's treatment plan and/or results with the patient and his . Treatment plan: - Proceed with consolidation chemotherapy. Return for restaging and repeat endoscopic evaluation after CORKY complete - PRN imodium to alleviate fecal urgency and frequency Risk of morbidity, mortality and/or complications of treatment plan: [facility] STAFF PHYSICIAN NOTE OF PERSONAL INVOLVEMENT IN CARE I have reviewed the progress note and procedure note obtained and documented by the fellow and I personally participated in the donovan components. I have discussed the case and management of the patient's care. The following comments revise or confirm relevant donovan components of their note. IMPRESSION: This is a 63 year old male who presents with rectal cancer. Still mobile and palpable on the left lateral side. Scope with tumor visible but has a response. PLAN: Completion chemotherapy, restaging, present at MDT, will determine non-op vs operative at that stage. Plan of care discussed with Patient and Family/Significant Other: family CARE COORDINATION: Continue to see oncology. SIGNATURE: Ernesto Aguiar MD DATE of SERVICE: August 04, 2023 (more content not included)... [facility] 08-04-2023 History of Presen t illness Narrative COLORECTAL SURGERY Follow-up August 04, 2023 Chief complaint: rectal cancer follow-up HPI: Migue Gunter is a 63 year old year old male with a history of pAF, VTE (warfarin), CORRINA, HTN, GERD and cT3 N1 M0 locally advanced rectal adenocarcinoma. He completed chemoradiation 06/01/23-07/07/23. Here for restaging prior to proceeding with consolidation FOLFOX. Doing well overall. Was initially due to start chemo yesterday but held off so he could come to clinic appointment. Has had some fecal urgency and loose stools. 07/28/[address] Alcala 07/27/23 CT Chest IMPRESSION: No CT evidence of acute abnormality. No findings of metastatic disease in the thorax. 07/27/23 CT ABD/PEL IMPRESSION: No metastatic disease in the abdomen or pelvis. 07/13/23 MRI RECTUM IMPRESSION: PARTIAL RESPONSE, WITH DECREASE IN INTRALUMINAL TUMOR THICKNESS AND DECREASED SIZE OF MESORECTAL FAT TUMOR DEPOSIT. TWO SUSPICIOUS LYMPH NODES ARE AGAIN NOTED. 0.7 CM ENHANCING FOCUS IN THE LEFT SACRUM IS INDETERMINATE. CLOSE ATTENTION ON FOLLOW-UP IS RECOMMENDED. Since 05/20/2023, post treatment primary tumor assessment: Incomplete response (likely residual tumor). mrTRG: Grade 4 - Partial response Suspicious Mesorectal lymph nodes: Yes. Suspicious Extramesorectal lymph nodes: No. 07/09/23 CEA 1.8 05/29/23 MDT Tumor board discussion and recommendation: Neoadjuvant therapy recommended: Yes Total Neoadjuvant Therapy: Long-course chemoradiation (5 weeks) followed by consolidation chemotherapy (4 months) if responsive to chemoradiotherapy. After completion of CORKY, assessment for complete clinical response and discussion regarding active surveillance versus surgery.. Anticipated surgical treatment: Low anterior resection. Vs APR Anticipated en bloc resection: No Anticipated metastasectomy: No. Clinical Trial Candidate: No. Other Discussion: Will keep an eye out on chest and see for repeat staging after sees oncology and radiology. Physical Exam: Ht 180.3 cm (5' 11 ) Wt 129.7 kg (286 lb) BMI 39.89 kg/m General - awake, alert, no acute distress Abdominal - soft, nontender, nondistended Anorectal: Perianal skin is intact. No erythema, induration or excoriation. No fissure, fistula or external hemorrhoids. Digital Rectal Exam: Anus: closed Resting tone: NORMAL Squeeze tone: NORMAL Mobile Disc Jockey present: Yes, Miranda Matt Palpable mass at about 3-4cm, left lateral, mobile, not fixed Flexible sigmoidoscopy: Procedure: The patient was placed in left lateral position. After digital exam with a lubricated finger, the scope was easily inserted to 20 cm. Findings: Residual tumor at about 4cm from anal verge - left lateral, smaller compared to prior. Not obstructing. The remainder of the sigmoid, rectum and anal canal were entirely normal. Biopsies were not taken. Assessment Medical Decision Making: Assessment & Diagnosis: Migue Gunter is a 63 year old year old male with a history of pAF, VTE (warfarin), CORRINA, HTN, GERD and cT3 N1 M0 locally advanced rectal adenocarcinoma. He completed chemoradiation 06/01/23-07/07/23. Here for restaging prior to proceeding with consolidation FOLFOX. Partial response endoscopically and on imaging Data Reviewed: Tests & Documents Reviewed/ordered: Review of prior notes from medical record Review of Pathology Review of Imaging: CT Abdomen, CT Pelvis, MRI Pelvis, CT Chest Review of Labs: CEA Review of Procedures / Tests: Flexible Sigmoidoscopy I have independently interpreted: CT Abdomen, CT Pelvis, MRI Pelvis, CT Chest I have discussed Migue Gunter's treatment plan and/or results with the patient and his . Treatment plan: - Proceed with consolidation chemotherapy. Return for restaging and repeat endoscopic evaluation after CORKY complete - PRN imodium to alleviate fecal urgency and frequency Risk of morbidity, mortality and/or complications of treatment plan: moderate [facility] STAFF PHYSICIAN NOTE OF PERSONAL INVOLVEMENT IN CARE I have reviewed the progress note and procedure note obtained and documented by the fellow and I personally participated in the donovan components. I have discussed the case and management of the patient's care. The following comments revise or confirm relevant donovan components of their note. IMPRESSION: This is a 63 year old male who presents with rectal cancer. Still mobile and palpable on the left lateral side. Scope with tumor visible but has a response. PLAN: Completion chemotherapy, restaging, present at MDT, will determine non-op vs operative at that stage. Plan of care discussed with Patient and Family/Significant Other: family CARE COORDINATION: Continue to see oncology. SIGNATURE: Ernesto Aguiar MD DATE of SERVICE: August 04, 2023 TIME of SERVICE: 12:54 PM documented in this encounter [facility] 07-27-2023 Miscellaneous Notes Called and let patient know CT chest/abd/pel showed no signs of metastatic disease. Advised him that Dr. Aguiar would review the MRI rectum results in more detail with him next week at his clinic appt. He did report he is having increasing diarrhea that started shortly after radiation. He has taken imodium as needed for this. I told him he can start taking fiber powder daily and imodium occasionally, but to stop these if he began to feel bloated, N/V, or constipated and he understands. Jonna Cartwright PA-C 07/27/2023 4:21 PM documented in this encounter [facility] 07-27-2023 Note HNO ID: [id number] Author: Zenaida Garland RT(R) Service: ? Author Type: Fusion Operator Type: Progress Notes Filed: 07/27/2023 4:09 PM Note Text: Radiology Service Progress Note DATE OF SERVICE: July 27, 2023 TIME: 4:08 PM PATIENT IDENTITY VERIFICATION COMPLETED USING TWO (2) STANDARD IDENTIFIERS: Name and Date of confirmed by patient verbally. FALL SCREENING: Has the patient had 2 falls in the last year or 1 fall with injury or currently using an Ambulatory Assistive Device (Walker, Cane, Wheelchair, Crutches, etc.)? No PATIENT GENDER DATA: Male PATIENT RELEVANT IMPLANT DATA REVIEWED: Yes ALLERGIES: Reviewed and unchanged CONTRAST ALLERGY: NO. EXAM: CT -CONTRAST INDUCED NEPHROPATHY RISK FACTORS: Patient age > 60 years CREATININE: Creatinine Date Value Ref Range Status 07/09/2023 0.97 0.73 - 1.22 mg/dL Final Estimated Glomerular Filtration Rate Date Value Ref Range Status 07/09/2023 87 >=60 mL/min/1.73m? Final Comment: Estimated Glomerular Filtration Rate (eGFR) is calculated using the 2020 CKD-EPI creatinine equation. This equation utilizes serum creatinine, sex, and age as parameters. The creatinine assay has traceable calibration to isotope dilution-mass spectrometry. Refer to KDIGO guidelines for clinical interpretation. In patients with unstable renal function, e.g. those with acute kidney injury, the eGFR may not accurately reflect actual GFR. P.O.C.T. RESULTS: POC done: Yes, See Lab Tab July 27, 2023 TREATMENT: N/A PERIPHERAL IV DATA: Ambulatory: A peripheral IV was started in the Left antecubital site with a Angio cath: 22 gauge. RADIOLOGY DEPARTMENT: CT; Exam(s) Completed: Chest Abdomen Pelvis SIGNATURE: RT Maryanne(R) PATIENT NAME: Migue Gunter DATE: July 27, 2023 TIME: 4:08 PM [facility] 07-27-2023 History of Presen t illness Narrative Radiology Service Progress Note DATE OF SERVICE: July 27, 2023 TIME: 4:08 PM PATIENT IDENTITY VERIFICATION COMPLETED USING TWO (2) STANDARD IDENTIFIERS: Name and Date of confirmed by patient verbally. FALL SCREENING: Has the patient had 2 falls in the last year or 1 fall with injury or currently using an Ambulatory Assistive Device (Walker, Cane, Wheelchair, Crutches, etc.)? No PATIENT GENDER DATA: Male PATIENT RELEVANT IMPLANT DATA REVIEWED: Yes ALLERGIES: Reviewed and unchanged CONTRAST ALLERGY: NO. EXAM: CT -CONTRAST INDUCED NEPHROPATHY RISK FACTORS: Patient age > 60 years CREATININE: Creatinine Date Value Ref Range Status 07/09/2023 0.97 0.73 - 1.22 mg/dL Final Estimated Glomerular Filtration Rate Date Value Ref Range Status 07/09/2023 87 >=60 mL/min/1.73m Final Comment: Estimated Glomerular Filtration Rate (eGFR) is calculated using the 2020 CKD-EPI creatinine equation. This equation utilizes serum creatinine, sex, and age as parameters. The creatinine assay has traceable calibration to isotope dilution-mass spectrometry. Refer to KDIGO guidelines for clinical interpretation. In patients with unstable renal function, e.g. those with acute kidney injury, the eGFR may not accurately reflect actual GFR. P.O.C.T. RESULTS: POC done: Yes, See Lab Tab July 27, 2023 TREATMENT: N/A PERIPHERAL IV DATA: Ambulatory: A peripheral IV was started in the Left antecubital site with a Angio cath: 22 gauge. RADIOLOGY DEPARTMENT: CT; Exam(s) Completed: Chest Abdomen Pelvis SIGNATURE: RT Maryanne(R) PATIENT NAME: Migue Gunter DATE: July 27, 2023 TIME: 4:08 PM documented in this encounter [facility] 07-15-2023 Miscellaneous Notes SPECIALTY CARE COORDINATION FOLLOW-UP NOTE Spoke with patient. Advised that MRI was done on 07/13 so additional MRI scheduled on 08/[address] Aguiar will see patient on 08/04 in office for a flex sig and he will be presented at MDT for formal recommendations Kesha Quinn RN July 15, 2023 documented in this encounter [facility] 07-13-2023 Note HNO ID: [id number] Author: Alia Anderson RT(Cassius) Service: ? Author Type: Technologist Type: Progress Notes Filed: 07/13/2023 9:13 AM Note Text: Radiology Service Progress Note DATE OF SERVICE: July 13, 2023 TIME: 9:12 AM PATIENT IDENTITY VERIFICATION COMPLETED USING TWO (2) STANDARD IDENTIFIERS: Name and Date of confirmed by patient verbally. FALL SCREENING: Has the patient had 2 falls in the last year or 1 fall with injury or currently using an Ambulatory Assistive Device (Walker, Cane, Wheelchair, Crutches, etc.)? No PATIENT GENDER DATA: Male PATIENT RELEVANT IMPLANT DATA REVIEWED: Yes ALLERGIES: Reviewed and unchanged CONTRAST ALLERGY: NO. EXAM: MRI - CONTRAST TYPE: GROUP II PERIPHERAL IV DATA: Ambulatory: A peripheral IV was started in the Left forearm with a Angio cath: 22 gauge. RADIOLOGY DEPARTMENT: MR; Exam(s) Completed: Body: Rectal SIGNATURE: RT Henrique(R) PATIENT NAME: Migue Gunter DATE: July 13, 2023 TIME: 9:12 AM [facility] 07-13-2023 History of Presen t illness Narrative Radiology Service Progress Note DATE OF SERVICE: July 13, 2023 TIME: 9:12 AM PATIENT IDENTITY VERIFICATION COMPLETED USING TWO (2) STANDARD IDENTIFIERS: Name and Date of confirmed by patient verbally. FALL SCREENING: Has the patient had 2 falls in the last year or 1 fall with injury or currently using an Ambulatory Assistive Device (Walker, Cane, Wheelchair, Crutches, etc.)? No PATIENT GENDER DATA: Male PATIENT RELEVANT IMPLANT DATA REVIEWED: Yes ALLERGIES: Reviewed and unchanged CONTRAST ALLERGY: NO. EXAM: MRI - CONTRAST TYPE: GROUP II PERIPHERAL IV DATA: Ambulatory: A peripheral IV was started in the Left forearm with a Angio cath: 22 gauge. RADIOLOGY DEPARTMENT: MR; Exam(s) Completed: Body: Rectal SIGNATURE: RT Henrique(R) PATIENT NAME: Migue Gunter DATE: July 13, 2023 TIME: 9:12 AM documented in this encounter [facility] 07-08-2023 Miscellaneous Notes I spoke with the patient's and advised that is preferred that the imaging is done here. If they wished to have them locally, we would need a fax order to send the orders. A follow up call was made, and a detailed message was left with these details as well. [phone] documented in this encounter [facility] 07-03-2023 Miscellaneous Notes SPECIALTY CARE COORDINATION FOLLOW-UP NOTE Received call from patient. States he is having rectal pressure and pain, with bowel frequency. Soft formed stool in the morning and smaller painful stools during the day. States he spoke to oncologist and was told this is normal. Advised that this is not uncommon with treatment, and he should increase fluid intake and can take miralax and stool softener to assist with keeping bowels moving and soft. Patent currently in treatment will have last chemoradiation on 07/07 followed by 4 week break. Patient asking if imaging needs to be done before her proceeds with chemotherapy. Advised we can order scans and he can be seen in office for flex sig. Kesha Quinn RN July 03, 2023 documented in this encounter [facility] 05-29-2023 Note HNO ID: [id number] Author: Ernesto Aguiar MD Service: ? Author Type: Physician Type: Progress Notes Filed: 05/29/2023 12:25 PM Note Text: Rectal Cancer Tumor Board Initial Presentation Date of conference: 05/29/2023. Date of Diagnosis: 05/05/2023. 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 Performing Lab Diagnostic interpretation performed at [facility], [facility] [address] CLIA# [id number] Imaging Reviewed: MRI of pelvis: 05/20/2023. MRI performed at: Outside but re-read by Radiology. Relation to peritoneal reflection: Below. Tumor location in the rectum: Middle and Lower. Tumor height from anal verge: (#) cm. 2.7. Relation to sphincter: No sphincter invasion. Mesorectal lymph nodes: Yes Likely Benign: Multiple < 0.4 mesorectal nodes Indeterminate: 0.4-0.5 cm T2 intermediate nodes posterior mesorectal fat (7:10) Likely Malignant: 0.8 and 0.7 cm lower LEFT mesorectal nodes (7:11) Extra-mesorectal lymph nodes: Yes 0.5 cm superior rectal node (11:32). <0.5 cm RIGHT common iliac and internal iliac nodes (11:20, 23) Other structures involved: No. Circumferential resection margin: Not threatened. MRI Stage: T3 N1 Tumor deposits: Yes Mucinous: No EMVI negative CT chest: 05/05/2023. Metastases: No evidence of metastases CT abdomen: 05/05/2023. Metastases: No evidence of metastases Other Imaging reviewed: No. Distant metastases: No. CEA results: Pending (ordered) Pre-treatment clinical stage: [id number]. Tumor board discussion and recommendation: Neoadjuvant therapy recommended: Yes Total Neoadjuvant Therapy: Long-course chemoradiation (5 weeks) followed by consolidation chemotherapy (4 months) if responsive to chemoradiotherapy. After completion of CORKY, assessment for complete clinical response and discussion regarding active surveillance versus surgery.. Anticipated surgical treatment: Low anterior resection. Vs APR Anticipated en bloc resection: No Anticipated metastasectomy: No. Clinical Trial Candidate: No. Other Discussion: Will keep an eye out on chest and see for repeat staging after sees oncology and radiology. . Disciplines present: Colorectal Surgery, Medical Oncology, Radiation Oncology, Radiology, Anatomic Pathology. This is the summary of the general discussion provided at tumor board conference. The final recommendations will be made by the primary health care team and the patient after discussing the benefits, risks and alternatives to the various treatment options. [facility] 05-25-2023 Miscellaneous Notes SPECIALTY CARE COORDINATION FOLLOW-UP NOTE Informed that we received outside imaging, he will be presented at [facility] on Thursday and will received official recommendation from Dr. Aguiar. Patient states that current plan is to start chemo and radiation for 27 days 06/01. Kesha Quinn RN May 25, 2023 ----- Message from [facility] sent at 05/25/2023 10:35 AM EDT ----- Regarding: Questions/update Please call the patients Myriam to discuss some additional questions about the plan. She report he saw a local oncologist Dr. Quesada and feels that a chemo treatment preference was discussed in the office with Dr. Aguiar. [phone] documented in this encounter [facility] Diagnosis Malignant neoplasm of rectum (HCC) Malignant neoplasm of rectum [facility] Diagnosis Rectal cancer (HCC)- Primary Malignant neoplasm of rectum documented in this encounter [facility] Summary Purpose Family History No Family History Records FoundNo Family History Records Found Advance Directives No Advanced Directives Records FoundNo Advanced Directives Records Found Reason for Referral Specialty Diagnoses / Procedures Referred By Contac t Referred To Contact MR IMAGING Diagnoses Malignant neoplasm of rectum (HCC) Procedures MRI RECTUM WO/W IVCON MRI PELVIS W/O & W/CONTRAST MATERIAL Ernesto Aguiar MD [address] [place] [address] Mr Imaging [id number] Referral ID Status Reason Start Date Expiration Date V isits Requested Visits Authorized [id number] Closed Auto-Generate d Referral 07/09/2023 09/13/2023 1 1 Specialty Diagnoses / Procedures Referred By Iggy t Referred To Contact CT IMAGING Diagnoses Malignant neoplasm of rectum (HCC) Procedures CT ABD/PEL W IVCON CT ABD & PELVIS W/CONTRAST Ernesto Aguiar MD [address] [place] [id number] [place] [address] Referral ID Status Reason Start Date Expiration Date V isits Requested Visits Authorized [id number] Closed Auto-Generate d Referral 07/09/2023 09/13/2023 1 1 Specialty Diagnoses / Procedures Referred By Contac t Referred To Contact CT IMAGING Diagnoses Malignant neoplasm of rectum (HCC) Procedures CT CHEST W IVCON DIAGNOSTIC COMPUTED TOMOGRAPHY THORAX W/CONTRAST Ernesto Aguiar MD [address] [facility] [place] [id number] [place] [address] Referral ID Status Reason Start Date Expiration Date V isits Requested Visits Authorized [id number] Closed Auto-Generate d Referral 07/09/2023 09/13/2023 1 1 Additional Source Comments (unrecognized sect ion and content) No Status Records FoundNo Status Records Found INFORMATION SOURCE (unrecogn ized section and content) DATE CREATED AUTHOR AUTHOR'S ORGANIZ ATION 08/06/2023 [facility] Source Comments (unrecognize d section and content) In the event this informatio n is protected by the Federal Confidentiality of Alcohol and Drug Abuse Patient Records regulations: The Federal rules restrict any use of the information to criminally investigate or prosecute any alcohol or drug abuse patient.[facility] the event this information is protected by the Federal Confidentiality of Alcohol and Drug Abuse Patient Records regulations: The Federal rules restrict any use of the information to criminally investigate or prosecute any alcohol or drug abuse patient.[facility] the event this information is protected by the Federal Confidentiality of Alcohol and Drug Abuse Patient Records regulations: The Federal rules restrict any use of the information to criminally investigate or prosecute any alcohol or drug abuse patient.[facility] the event this information is protected by the Federal Confidentiality of Alcohol and Drug Abuse Patient Records regulations: The Federal rules restrict any use of the information to criminally investigate or prosecute any alcohol or drug abuse patient.[facility] the event this information is protected by the Federal Confidentiality of Alcohol and Drug Abuse Patient Records regulations: The Federal rules restrict any use of the information to criminally investigate or prosecute any alcohol or drug abuse patient.[facility] the event this information is protected by the Federal Confidentiality of Alcohol and Drug Abuse Patient Records regulations: The Federal rules restrict any use of the information to criminally investigate or prosecute any alcohol or drug abuse patient.[facility] the event this information is protected by the Federal Confidentiality of Alcohol and Drug Abuse Patient Records regulations: The Federal rules restrict any use of the information to criminally investigate or prosecute any alcohol or drug abuse patient.[facility] the event this information is protected by the Federal Confidentiality of Alcohol and Drug Abuse Patient Records regulations: The Federal rules restrict any use of the information to criminally investigate or prosecute any alcohol or drug abuse patient.[facility] Care Teams (unrecognized sec tion and content) Irrigation Teacher Relationship Specialty Start Date End Date Jt Stokes MD [address] [place] [address] PCP - General Family Medicine 07/21/19 Andre Quesada MD [address] [place], [place] [id number] Oncology 05/25/23 Irrigation Teacher Relationship Specialty Start Date End Date Jt Stokes MD [address] [place] [address] PCP - General Family Medicine 07/21/19 Andre Quesada MD [address] [place], [place] [address] Oncology 05/25/23 Irrigation Teacher Relationship Specialty Start Date End Date Jt Stokes MD [address] [facility] [address] [place], [place] [address] PCP - General Family Medicine 07/21/19 Andre Quesada MD [address] [place], [place] [address] Oncology 05/25/23 Irrigation Teacher Relationship Specialty Start Date End Date Jt Stokes MD [address] [facility] [address] [place], [place] [id number] PCP - General Family Medicine 07/21/19 Andre Quesada MD [address] [facility] [address] [place], [place] [address] Oncology 05/25/23 Reason for Visit (unrecogniz ed section and content) Reason Comments Patient Question Reason Comments Care Coordination Specialty Diagnoses / Procedures Referred By Contac t Referred To Contact MR IMAGING Diagnoses Malignant neoplasm of rectum (HCC) Procedures MRI RECTUM WO/W IVCON MRI PELVIS W/O & W/CONTRAST MATERIAL Ernesto Aguiar MD [address] [place] [address] Mr Imaging [place] [address] Referral ID Status Reason Start Date Expiration Date V isits Requested Visits Authorized [id number] Closed Auto-Generate d Referral 07/09/2023 09/13/2023 [address] chest/abd/pel res ults Reason Comments Radiology CT Specialty Diagnoses / Procedures Referred By Contac t Referred To Contact CT IMAGING Diagnoses Malignant neoplasm of rectum (HCC) Procedures CT ABD/PEL W IVCON CT ABD & PELVIS W/CONTRAST Ernesto Aguiar MD [id number] [facility] [place] [address] Referral ID Status Reason Start Date Expiration Date V isits Requested Visits Authorized [id number] Closed Auto-Generate d Referral 07/09/2023 09/13/2023 1 1 Reason Comments Established Patient Specialty Diagnoses / Procedures Referred By Contac t Referred To Contact Colon and Rectal Surgery / COLORECTAL SURGERY Diagnoses Discussing imaging from 07/29 rectal cancer/flex sig - completed chemoradiation on 07/07 Procedures OFFICE/OUTPATIENT ESTABLISHED MOD MDM 30-39 MIN EST DDI PATIENT Jt Stokes MD [address] [place] [address] Ernesto Aguiar MD [address] [place] [id number] Referral ID Status Reason Start Date Expiration Date Visits Re quested Visits Authorized [id number] Closed 08/04/2023 09/13/2023 1 1 FOR RECORDS PERTAINING TO PATIENTS WHO ARE OR HAVE BEEN ENROLLED IN A CHEMICAL DEPENDENCY/SUBSTANCEABUSE PROGRAM, SOME INFORMATION MAY BE OMITTED. This clinical summary was aggregated from multiple sources. Caution should be exercised in using it in the provision of clinical care. This summary normalizes information from multiple sources, and as a consequence, information in this document may materially change the coding, format and clinical context of patient data. In addition, data may be omitted in some cases. CLINICAL DECISIONS SHOULD BE BASED ON THE PRIMARY CLINICAL RECORDS. [employer] provides no warranty or guarantee of the accuracy or completeness of information in this document.
[2023-10-25 09:42] LABS: Absolute Lymphocyte Count 0.25 X10^3/uL (0.83-4.51); Absolute Neutrophil Count 3.4 X10^3/uL (2.0-7.7); Basophil# 0.03 X10^3/uL; Basophil% 0.7 % (0-1); Eosinophil# 0.02 X10^3/uL; Eosinophils% 0.5 % (0-5); Hematocrit 29.8 % (40-54); Hemoglobin 10.2 g/dL (13.0-16.5); Lymphocyte # 0.25 X10^3/ul (0.83-4.51); Lymphocyte % 6.1 % (19-41); Mean Corp Hgb Conc 34.2 g/dL (32-36); Mean Corpuscular Hgb 35.8 pg (27.0-32.0); Mean Corpuscular Volume 104.6 fL (80-94); Monocyte# 0.37 X10^3/uL; Monocyte% 9.1 % (0-10); NRBC Flagged by Analyzer 0 % (0-5); Neutrophil # 3.38 X10^3/uL (2.7-7.7); Neutrophil % 82.9 % (47-70); POSITIVE DIFFERENTIAL YES; POSITIVE MORPHOLOGY YES; Platelet Count 152 K/mm3 (150-450); RBC Distribution Width CV 18.2 % (11.6-14.6); RBC Distribution Width SD 66.4 fl (35.1-43.9); Red Blood Count 2.85 M/mm3 (4.6-6.2); White Blood Count 4.1 K/mm3 (4.4-11.0)
[2023-10-25 09:47] LABS: Differential Indicated SCAN CRITERIA MET
[2023-10-25 09:49] LABS: Anion Gap 9 (5-15); BUN 23 mg/dL (7-18); BUN/Creat Ratio 22.3 RATIO (10-20); Calcium,Total 8.2 mg/dL (8.5-10.1); Chloride 114 mmol/L (98-107); Creatinine, Serum 1.03 mg/dL (0.70-1.30); EST Glomerular Filtration Rate 77 mL/min (>60); Est Glom Filt Rate - Afr Amer 93 mL/min (>60); Estimated Creatinine Clearance 101.49 ml/min; Glucose 165 mg/dL (74-106); Potassium 3.4 mmol/L (3.5-5.1); Sodium Level 146 mmol/L (136-145)
[2023-10-25 10:12] LABS: International Normalized Ratio 3.6; Prothrombin Time (Protime)PT. 36.1 SECONDS (11.7-14.9)
[2023-10-25 10:17] LABS: Anisocytosis 2+; Differential Comment SCANNED; Hypochromasia 1+; Macrocytosis 1+; Microcytosis 1+
[2023-10-25 10:52] VITALS: BP 138/63; PULSE 50; RESP 16; O2SAT 96
[2023-10-25 10:54] LABS: Bacteria 0 SEEN /hpf (None Seen); Mucous, Urine 0 SEEN /hpf (<or=2+); Red Blood Cells-Urine 0 SEEN /hpf (0-5); White Blood Cells 0 SEEN /hpf (0-5)
[2023-10-25 11:01] LABS: Color, Urine Yellow (Yellow); Glucose, Dipstick 250 mg/dl (Normal); Ketone-Dipstick Negative (Negative); Leukocyte Esterase-Dipstick Negative /ul (Negative); Nitrite-Dipstick Negative (Negative); Occult Blood-Urine 10 /ul (Negative); Protein-Dipstick 15 mg/dl (Negative); Specific Gravity, Urine 1.015 (1.002-1.030); Urine Bilirubin Dipstick Negative (Negative); Urine Clarity Clear (Clear); Urine Urobilinogen Normal (Normal); Urine pH 6.5 (5.0 - 8.0)
[2023-10-25 11:17] LABS: Squamous Epithelial Cells - UA 0-5 SEEN /hpf (0-5)
[2023-10-25] MEDS: 0.9% Saline Lock 10 ML Syringe IV (12:48)
[2023-10-25 12:49] VITALS: BP 115/65; PULSE 70
== END 2023-10-25 12:50 | disposition home or self-care (01) ==
PROVIDERS: Emergency Provider Emergency Medicine; PCP Family Medicine; Visit Provider Emergency Medicine
DX: R10.31 Right lower quadrant pain (principal); C20 Malignant neoplasm of rectum; I48.91 Unspecified atrial fibrillation; R10.32 Left lower quadrant pain; I10 Essential (primary) hypertension; Z90.49 Acquired absence of other specified parts of digestive tract; Z79.01 Long term (current) use 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s; Z79.82 Long term (current) use of aspirin; Z79.899 Other long term (current) drug therapy; Z86.711 Personal history of pulmonary embolism; Z87.442 Personal history of urinary calculi; Z86.16 Personal history of COVID-19
CPT/HCPCS: 36591; 74177; 80048; 81001; 85025; 85610; 96374; 96375; 99285; Q9967; A4216; J2405

== ENCOUNTER → 2023-10-29 | Outpatient (CLI) | payer MEDICARE, OTHER, SELFPAY ==
--- NOTE | 2023-10-29 12:57 | US_ITS ---
INDICATION: right sided back pain EXAMINATION: Ultrasound US Kidney(s) complete (eg, kidneys and bladder) TECHNIQUE: Robert scale and color doppler images were obtained of the kidneys. COMPARISON: FINDINGS: RIGHT KIDNEY: 12.1 x 5.5 x 5.4 cm. The cortex is 17 mm.. There is no hydronephrosis. No shadowing calculus. No focal lesion . There is mild perinephric edema. LEFT KIDNEY: 12.4 x 5.5 x 6.2 cm. The cortex is 18 mm. There is no hydronephrosis. No shadowing calculus. No focal lesion. There is mild perinephric edema. URINARY BLADDER: Incompletely distended limiting evaluation. US/Kidney and Bladder IMPRESSION: Perinephric edema/fluid bilaterally. Electronically Signed: Ko Cabrera DO at 21:51 EST ,
--- OUTSIDE RECORDS SUMMARY | 2023-10-29 19:08 | XMS RPT_ITS | CCD ---
Author Name Unknown Address [address] [place] [address] Organization [facility] Care Team Providers Care Butter Maker Name Role Phone DEANNA ACKERMAN Unavailable Unavailable JT GUSTAFSON Unavailable Unavailable Temi SHEA, Jt Dodd Primary Care Provider Andre Quesada MD Unavailable JT STOKES Primary Care Unavailable JT STOKES Primary Care Unavailable ERNESTO AGUIAR Referring Unavailable JT STOKES Referring Unavailable JT STOKES Primary Care Unavailable ERNESTO AGUIAR Attending Unavailable JT STOKES Primary Care Unavailable JT STOKES Referring Unavailable ERNESTO AGUIAR Attending Unavailable JT STOKES Primary Care Unavailable ERNESTO AGUIAR Referring Unavailable JT STOKES Primary Care Unavailable ERNESTO AGUIAR Referring Unavailable Medications Current Medications Medication Drug Class(es) Dates Sig (Normalized) Sig (Original) enteric contrast (will be provided with radiology test) (1 source) Start: 10-28-2023 End: 10-29-2023 enteric contrast (will be provided with radiology test) MRI RECTUM WO/W. Administer, As Directed One Time Only, via Oral, Rectal, both Oral and Rectal, Enteric Tube, Stoma or Indwelling Catheter, Enteric Contrast as designated per enteric contrast guidelines 1 Each 0 10/28/2023 10/29/2023 Active Completed/Discontinued Medications Medication Drug Class(es) Dates Sig (Normalized) Sig (Original) aspirin 81 mg delayed release oral tablet (11 sources) Platelet Aggregation Inhibitor, Nonsteroidal Anti-inflammatory Drug take 1 tablet by mouth once daily aspirin, enteric coated (ASPIRIN, ENTERIC COATED) 81 mg EC tablet Take 81 mg by mouth once daily. 0 Active Problems Active Problems Problem Classification Problem Date Documented Da te Episodic/Chronic Cancer of rectum and anus (5 sources) Malignant tumor of rectum; Translations: [Malignant neoplasm of rectum] Onset: 07-13-2023 07-13-2023 Chronic Past or Other Problems Problem Classification Problem Date Documented Da te Episodic/Chronic Anal and rectal conditions (1 source) Other specified diseases of anus and rectum; Translations: [Rectal mass] Onset: 07-09-2023 Episodic Other and unspecified benign neoplasm (11 sources) History of polyp of colon; Translations: [Personal history of colonic polyps] Onset: 06-30-2016 06-30-2016 Episodic Results Test Name Value Interpretation Reference Range Facil ity Vital Signs Date Time Vital Sign Value Performing Clinician Faci lit 08-04-2023 12:050 Body height 180.3 cm Ernesto Aguiar MD Work Phone: [facility] 08-04-2023 12:050 Body weight 129.73 kg Ernesto Aguiar MD Work Phone: [facility] Encounters Encounter Date Encounter Type Care Provider Facility Start: 10-28-2023 Telephone encounter Ernesto Cornell MD Work Phone: Colorectal Surgery Procedures Date [...] Detail Author Start: 11-12-2030 Urine microalbumin profile DTaP,Tdap,Td Vaccine (2 - Td or Tdap) [facility] Start: 08-04-2028 Screening for malignant neoplasm of colon Sigmoidoscopy [facility] Start: 08-04-2028 Sigmoidoscopy Sigmoidoscopy [facility] Start: 05-12-2028 SIGMOIDOSCOPY SIGMOIDOSCOPY [facility] Start: 10-28-2023 End: 01-27-2024 Carcinoembryonic Ag [Mass/volume] in Serum or Plasma CEA BLD Lab Routine Malignant neoplasm of rectum (HCC) Expected: 10/28/2023, Expires: 01/27/2024 [facility] Work Phone: Immunizations Immunization Date Immunization Notes Care Provider Asad dickey 08-04-2022 influenza virus vacc ine, unspecified formulation Kesha Quinn RN [facility] Payers Date Payer Category Payer Medicare MEDICARE MEDICAR E A AND B [id number] 2023-Present [phone] [place] [address] Medicare [id number] 2022 Private Health Insurance [id number] 2022 Private Health Insurance [facility] [id number] 2017 Unknown [id number] Social History Date Type Detail Facility Start: 05-12-2023 Tobacco smoking stat us [facility]IS Never smoked tobacco [facility] Start: 05-12-2023 Tobacco use and exposure Smoke less tobacco non-user [facility] Start: 05-12-2023 End: 08-04-2023 Alcohol intake Current drinker of alcohol (finding) [facility] Start: 05-12-2023 End: 08-04-2023 History of Social function [facility] Start: 05-12-2023 End: 08-04-2023 Tobacco use panel [facility] National Score (1-10 0), lower number is lower risk 54 [facility] Start: 1960 Sex Assigned At Male C [facility] Start: 05-11-2023 Gender identity Identifies as male gender (finding) [facility] Start: 05-11-2023 Sexual orientation Heterosexual (siomara victoria) [facility] Clinical Notes 05-25-2023 to 10-28-2023 Telephone Encounter - Maryann Maier RN - 10/28/2023 3:13 PM ESTTelephone Encounter - June Veras - 10/28/2023 2:59 PM ESTTelephone Encounter - Maryann Maier RN - 10/27/2023 5:52 PM EST Note Date & Type Note Facility 10-28-2023 Miscellaneous Notes Called and spoke with Patient completed CORKY on 10.26.[address] scan done locally Needs MRI rectum, cea, and scope Patient prefers MRI and cea locally - asked schedulers to reach out Scope schduled 11/17/23 returning nurse's call from yesterday. documented in this encounter [facility] 10-27-2023 Miscellaneous Notes Called patient number listed in message, no answer, left detailed VM requesting patient or to call back to discuss scheduling imaging and scope after CORKY - happy to coordinate all in one day here at [facility]am, the patient's is calling to discuss his complete of his CORKY treatment. She wants to discuss the timing for his next colonoscopy and having it done locally. She needs the orders placed for the repeat imaging. [phone] documented in this encounter [facility] 08-04-2023 Note HNO ID: [id number] Author: Ernesto Aguiar MD Service: ? Author Type: Physician Type: Progress Notes Filed: 08/04/2023 12:55 PM Note Text: COLORECTAL SURGERY Follow-up August 04, 2023 Chief complaint: rectal cancer follow-up HPI: Maxime Gunter is a 63 year old year [...] closed Resting tone: NORMAL Squeeze tone: NORMAL Supervisor Litharge present: Yes, Miranda Matt Palpable mass at [...] Assessment Medical Decision Making: Assessment AND Diagnosis: Maxime Gunter is a 63 year old year [...] MRI Pelvis, CT Chest I have discussed Maxime Gunter's treatment plan and/or results with the patient and his . Treatment plan: - Proceed with consolidation chemotherapy. Return for restaging and repeat endoscopic evaluation after CORKY complete - PRN imodium to alleviate fecal urgency and frequency Risk of morbidity, mortality and/or complications of treatment plan: moderate [facility] STAFF PHYSICIAN NOTE OF PERSONAL [...] August 04, 2023 (more content not included)... [facility] 08-04-2023 History of Presen t illness Narrative COLORECTAL SURGERY Follow-up August 04, 2023 Chief complaint: rectal cancer follow-up HPI: Maxime Gunter is a 63 year old year [...] closed Resting tone: NORMAL Squeeze tone: NORMAL Supervisor Litharge present: Yes, Miranda Gutierrez Palpable mass at [...] Assessment Medical Decision Making: Assessment & Diagnosis: Maxime Gunter is a 63 year old year [...] MRI Pelvis, CT Chest I have discussed Maxime Gunter's treatment plan and/or results with the patient and his . Treatment plan: - Proceed with consolidation chemotherapy. Return for restaging and repeat endoscopic evaluation after CORKY complete - PRN imodium to alleviate fecal urgency and frequency Risk of morbidity, mortality and/or complications of treatment plan: moderate [facility] STAFF PHYSICIAN NOTE OF PERSONAL [...] SERVICE: 12:54 PM documented in this encounter [facility] 07-27-2023 Miscellaneous Notes Called and let patient [...] 07/27/2023 4:21 PM documented in this encounter [facility] 07-27-2023 Note HNO ID: [id number] Author: Zenaida Garland RT(R) Service: ? Author Type: Supervisor Accounts Receivable Type: Progress Notes Filed: 07/27/2023 4:09 PM [...] Abdomen Pelvis SIGNATURE: RT Maryanne(R) PATIENT NAME: Maxime Gunter DATE: July 27, 2023 TIME: 4:08 PM [facility] 07-27-2023 History of Presen t illness [...] Abdomen Pelvis SIGNATURE: RT Maryanne(R) PATIENT NAME: Maxime Gunter DATE: July 27, 2023 TIME: 4:08 PM documented in this encounter [facility] 07-15-2023 Miscellaneous Notes SPECIALTY CARE COORDINATION FOLLOW-UP NOTE Spoke with patient. Advised that MRI was done on 07/13 so additional MRI scheduled on 08/[address] Aguiar will see patient on 08/04 in office for a flex sig and he will be presented at MDT for formal recommendations Kesha Quinn RN July 15, 2023 documented in this encounter [facility] 07-13-2023 Note HNO ID: [id number] Author: Alia Anderson RT(R) Service: ? Author Type: Technologist Type: Progress [...] Body: Rectal SIGNATURE: RT Henrique(R) PATIENT NAME: Maxime Gunter DATE: July 13, 2023 TIME: 9:12 AM [facility] 07-13-2023 History of Presen t illness [...] Body: Rectal SIGNATURE: RT Henrique(R) PATIENT NAME: Maxime Gunter DATE: July 13, 2023 TIME: 9:12 AM documented in this encounter [facility] 07-08-2023 Miscellaneous Notes I spoke with the patient's and advised that is preferred that the imaging is done here. If they wished to have them locally, we would need a fax order to send the orders. A follow up call was made, and a detailed message was left with these details as well. [phone] documented in this encounter [facility] 07-03-2023 Miscellaneous Notes SPECIALTY CARE COORDINATION FOLLOW-UP [...] July 03, 2023 documented in this encounter [facility] 05-29-2023 Note HNO ID: [id number] Author: Ernesto Aguiar MD Service: ? Author Type: Physician Type: Progress Notes Filed: 05/29/2023 12:25 PM Note Text: Rectal Cancer Tumor Board Initial Presentation Date of conference: 05/29/2023. Date of Diagnosis: 05/05/2023. 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 Performing Lab Diagnostic interpretation performed at [facility], [facility] [address] CLIA# [id number] Imaging Reviewed: MRI of pelvis: 05/20/2023. MRI [...] CEA results: Pending (ordered) Pre-treatment clinical stage: [id number]. Tumor board discussion and recommendation: Neoadjuvant therapy [...] and alternatives to the various treatment options. [facility] 05-25-2023 Miscellaneous Notes SPECIALTY CARE COORDINATION FOLLOW-UP NOTE Informed that we received outside imaging, he will be presented at MDT on Thursday and will received official recommendation from Dr. Aguiar. Patient states that current plan is to start chemo and radiation for 27 days 06/01. Kesha Quinn RN May 25, 2023 ----- Message from Mary Kay Herron [facility] sent at 05/25/2023 10:35 AM EDT ----- Regarding: Questions/update Please call the patients Myriam to discuss some additional questions about the plan. She report he saw a local oncologist Dr. Quesada and feels that a chemo treatment preference was discussed in the office with Dr. Aguiar. [phone] documented in this encounter [facility] documented [facility] this [facility] Diagnosis Malignant neoplasm of rectum (HCC) Malignant neoplasm of rectum [facility] Diagnosis Rectal cancer (HCC)- Primary Malignant neoplasm of rectum [facility] Diagnosis Malignant neoplasm of rectum (HCC)- Primary Malignant neoplasm of rectum documented in this encounter [facility] Summary Purpose Family History No Family History Records FoundNo Family History Records Found Advance Directives No Advanced Directives Records FoundNo Advanced Directives Records Found Reason for Referral Specialty Diagnoses / Procedures Referred By Iggy t Referred To Contact MR IMAGING Diagnoses Malignant neoplasm of rectum (HCC) Procedures MRI RECTUM WO/W IVCON MRI PELVIS W/O & W/CONTRAST MATERIAL Ernesto Aguiar MD [address] [place] [address] [place] [address] Referral ID Status Reason Start Date Expiration Date V isits Requested Visits Authorized [id number] Closed Auto-Generate d Referral 07/09/2023 09/13/2023 1 1 Specialty Diagnoses / Procedures Referred By Contac t Referred To Contact CT IMAGING Diagnoses Malignant neoplasm of rectum (HCC) Procedures CT ABD/PEL W IVCON CT ABD & PELVIS W/CONTRAST Ernesto Aguiar MD [id number] [place] [address] Referral ID Status Reason Start Date Expiration Date V isits Requested Visits Authorized [id number] Closed Auto-Generate d Referral 07/09/2023 09/13/2023 1 1 Specialty Diagnoses / Procedures Referred By Contac t Referred To Contact CT IMAGING Diagnoses Malignant neoplasm of rectum (HCC) Procedures CT CHEST W IVCON DIAGNOSTIC COMPUTED TOMOGRAPHY THORAX W/CONTRAST Ernesto Aguiar MD [id number] [facility] [place] [address] Referral ID Status Reason Start Date Expiration Date V isits Requested Visits Authorized [id number] Closed Auto-Generate d Referral 07/09/2023 09/13/2023 1 1 Referral ID Status Reason Start Date Expiration Date Visits Requested Visits Authorized [id number] Pending Review Auto-Generat ed Referral 10/28/2023 11/26/2024 1 1 Additional Source Comments (unrecognized sect ion and content) No Status Records FoundNo Status Records Found INFORMATION SOURCE (unrecogn ized section and content) DATE CREATED AUTHOR AUTHOR'S ORGANIZ ATION 10/29/2023 [facility] Source Comments (unrecognize d section and content) In the event this informatio n is protected by the Federal Confidentiality of Alcohol and Drug Abuse Patient Records regulations: The Federal rules restrict any use of the information to criminally investigate or prosecute any alcohol or drug abuse patient.[facility] the event this information is protected by the Federal Confidentiality of Alcohol and Drug Abuse Patient Records regulations: The Federal rules restrict any use of the information to criminally investigate or prosecute any alcohol or drug abuse patient.[facility] the event this information is protected by the Federal Confidentiality of Alcohol and Drug Abuse Patient Records regulations: The Federal rules restrict any use of the information to criminally investigate or prosecute any alcohol or drug abuse patient.[facility] the event this information is protected by the Federal Confidentiality of Alcohol and Drug Abuse Patient Records regulations: The Federal rules restrict any use of the information to criminally investigate or prosecute any alcohol or drug abuse patient.[facility] the event this information is protected by the Federal Confidentiality of Alcohol and Drug Abuse Patient Records regulations: The Federal rules restrict any use of the information to criminally investigate or prosecute any alcohol or drug abuse patient.[facility] the event this information is protected by the Federal Confidentiality of Alcohol and Drug Abuse Patient Records regulations: The Federal rules restrict any use of the information to criminally investigate or prosecute any alcohol or drug abuse patient.[facility] the event this information is protected by the Federal Confidentiality of Alcohol and Drug Abuse Patient Records regulations: The Federal rules restrict any use of the information to criminally investigate or prosecute any alcohol or drug abuse patient.[facility] the event this information is protected by the Federal Confidentiality of Alcohol and Drug Abuse Patient Records regulations: The Federal rules restrict any use of the information to criminally investigate or prosecute any alcohol or drug abuse patient.[facility] the event this information is protected by the Federal Confidentiality of Alcohol and Drug Abuse Patient Records regulations: The Federal rules restrict any use of the information to criminally investigate or prosecute any alcohol or drug abuse patient.[facility] the event this information is protected by the Federal Confidentiality of Alcohol and Drug Abuse Patient Records regulations: The Federal rules restrict any use of the information to criminally investigate or prosecute any alcohol or drug abuse patient.[facility] the event this information is protected by the Federal Confidentiality of Alcohol and Drug Abuse Patient Records regulations: The Federal rules restrict any use of the information to criminally investigate or prosecute any alcohol or drug abuse patient.[facility] Care Teams (unrecognized sec tion and content) Butter Maker Relationship Specialty Start Date End Date Jt Stokes MD [address] [place] [address] PCP - General Family Medicine 07/21/19 Andre Quesada MD [address] [place], [place] [address] Oncology 05/25/23 Butter Maker Relationship Specialty Start Date End Date Jt Stokes MD [address] [place] [address] PCP - General Family Medicine 07/21/19 Andre Quesada MD [address] [place], [place] [address] [phone] Oncology 05/25/23 Butter Maker Relationship Specialty Start Date End Date Jt Stokes MD [address] [facility] [address] [place], [place] [address] PCP - General Family Medicine 07/21/19 Andre Quesada MD [address] [place], [place] [address] [phone] Oncology 05/25/23 Butter Maker Relationship Specialty Start Date End Date Jt Stokes MD [address] [facility] [address] [place], [place] [address] PCP - General Family Medicine 07/21/19 Andre Quesada MD [address] [place], [place] [address] [phone] Oncology 05/25/23 Butter Maker Relationship Specialty Start Date End Date Jt Stokes MD [address] [facility] [address] [place], [place] [address] PCP - General Family Medicine 07/21/19 Andre Quesada MD [address] [place] [address] Oncology 05/25/23 Reason for Visit (unrecogniz ed section and content) Reason Comments Patient Question Reason Comments Care Coordination Specialty Diagnoses / Procedures Referred By Contac t Referred To Contact MR IMAGING Diagnoses Malignant neoplasm of rectum (HCC) Procedures MRI RECTUM WO/W IVCON MRI PELVIS W/O & W/CONTRAST MATERIAL Ernesto Aguiar MD [address] [place] [address] [place] [address] Referral ID Status Reason Start Date Expiration Date V isits Requested Visits Authorized [id number] Closed Auto-Generate d Referral 07/09/2023 09/13/2023 [address] chest/abd/pel res ults Reason Comments Radiology CT Specialty Diagnoses / Procedures Referred By Contac t Referred To Contact CT IMAGING Diagnoses Malignant neoplasm of rectum (HCC) Procedures CT ABD/PEL W IVCON CT ABD & PELVIS W/CONTRAST Ernesto Aguiar MD [id number] [place] [address] Referral ID Status Reason Start Date Expiration Date V isits Requested Visits Authorized [id number] Closed Auto-Generate d Referral 07/09/2023 09/13/2023 1 1 Reason Comments Established Patient Specialty Diagnoses / Procedures Referred By Contac t Referred To Contact Colon and Rectal Surgery / COLORECTAL SURGERY Diagnoses Discussing imaging from 07/29 rectal cancer/flex sig - completed chemoradiation on 07/07 Procedures OFFICE/OUTPATIENT ESTABLISHED MOD MDM 30-39 MIN EST DDI PATIENT Jt Stokes MD [address] [facility] [address] [place] [address] Ernesto Aguiar MD [id number] Referral ID Status Reason Start Date Expiration Date Visits Re quested Visits Authorized [id number] Closed 08/04/2023 09/13/2023 1 1 Reason Comments Patient Update FOR RECORDS PERTAINING TO PATIENTS WHO ARE [...] BE BASED ON THE PRIMARY CLINICAL RECORDS. [employer] [facility]. provides no warranty or guarantee of the accuracy or completeness of information in this document.
== END | disposition home or self-care (01) ==
LOC: US 12:56
PROVIDERS: PCP Family Medicine; Referring Provider Nurse Practitioner Family; Visit Provider Nurse Practitioner Family
DX: M54.50 Low back pain, unspecified (principal)
CPT/HCPCS: 76770

== ENCOUNTER 2023-11-10 07:55 | Outpatient (RCR) | payer MEDICARE, OTHER, SELFPAY ==
[2023-09-13 20:54] VITALS: BMI 38.9
[2023-11-10 09:21] LABS: International Normalized Ratio 1.9; Prothrombin Time (Protime)PT. 21.5 SECONDS (11.7-14.9)
== END 2023-11-12 18:00 | disposition home or self-care (01) ==
LOC: LAB 07:55
PROVIDERS: Family Provider Family Medicine; PCP Family Medicine; Referring Provider Nurse Practitioner Family; Visit Provider Nurse Practitioner Family
DX: I48.0 Paroxysmal atrial fibrillation (principal); Z79.01 Long term (current) use 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s
CPT/HCPCS: 36415; 85610

== ENCOUNTER → 2023-11-10 | Outpatient (CLI) | payer MEDICARE, OTHER, SELFPAY ==
--- OUTSIDE RECORDS SUMMARY | 2023-11-10 07:56 | XMS RPT_ITS | CCD ---
Author Name Unknown Address [address] [place] [address] Organization [facility] Care Team Providers Care Handle Turner Name Role Phone DEANNA ACKERMAN Unavailable Unavailable [...] aspirin 81 mg delayed release oral tablet (12 sources) Platelet Aggregation Inhibitor, Nonsteroidal Anti-inflammatory Drug [...] 07-09-2023 Episodic Other and unspecified benign neoplasm (12 sources) History of polyp of colon; Translations: [Personal history of colonic polyps] Onset: 06-30-2016 06-30-2016 Episodic Results Test Name Value Interpretation Reference Range Facil ity Vital Signs Date Time Vital Sign Value Performing Clinician Faci lit 08-04-2023 12:050 Body height 180.3 cm Ernesto Aguiar MD Work Phone: [facility] 08-04-2023 12:050 Body weight 129.73 kg Ernesto Aguiar MD Work Phone: [facility] Encounters Encounter Date Encounter Type Care Provider Facility Start: 11-02-2023 Telephone encounter Ricki billingsley DO Work Phone: Hematology/Oncology Procedures Date Procedure Procedure Detail Performing Clinician [...] DTaP,Tdap,Td Vaccine (2 - Td or Tdap) [facility] Start: 08-04-2028 Screening for malignant neoplasm of colon Sigmoidoscopy [facility] Start: 08-04-2028 Sigmoidoscopy Sigmoidoscopy [facility] Start: 05-12-2028 SIGMOIDOSCOPY SIGMOIDOSCOPY [facility] Start: 10-28-2023 End: 01-27-2024 Carcinoembryonic Ag [Mass/volume] in Serum or Plasma CEA BLD Lab Routine Malignant neoplasm of rectum (HCC) Expected: 10/28/2023, Expires: 01/27/2024 [facility] Work Phone: Immunizations Immunization Date Immunization Notes Care Provider Asad dickey 08-04-2022 influenza virus vacc ine, unspecified formulation Kesha Quinn RN [facility] Payers Date Payer Category Payer Medicare MEDICARE MEDICAR E A AND B [id number] 2023-Present [phone] [place] [address] Medicare [id number] 2022 Private Health Insurance [id number] 2022 Private Health Insurance [facility] [id number] 2017 Unknown [id number] Social History Date Type Detail Facility Start: 05-12-2023 Tobacco smoking stat us [facility] Never smoked tobacco [facility] Start: 05-12-2023 Tobacco use and exposure Smoke less tobacco non-user [facility] Start: 05-12-2023 End: 08-04-2023 Alcohol intake Current drinker of alcohol (finding) [facility] Start: 05-12-2023 End: 08-04-2023 History of Social function [facility] Start: 05-12-2023 End: 08-04-2023 Tobacco use panel [facility] National Score (1-10 0), lower number is lower risk 54 [facility] Start: 1960 Sex Assigned At Male [facility] Start: 05-11-2023 Gender identity Identifies as male gender (finding) [facility] Start: 05-11-2023 Sexual orientation Heterosexual (siomara victoria) [facility] Clinical Notes 05-25-2023 to 11-02-2023 Telephone Encounter - Pilar Alfredo - 11/02/2023 4:27 PM ESTTelephone Encounter - Zuleyma Pinto - 11/02/2023 4:20 PM ESTTelephone Encounter - Carolina Cristobal PSS - 11/02/2023 4:13 PM EST Note Date & Type Note Facility 11-02-2023 Miscellaneous Notes Pt given information below. Left message for patient to return call. When he calls, please advise that he is to report at 12:45 to the [facility] for port access for his MRI appointment on 11/04. Zuleyma Pinto Pt would like to use port for appt on 11/04/23 @ 1pm MRI .. Please call pt to confirm time documented in this encounter [facility] 10-28-2023 Miscellaneous Notes Called and spoke with Patient completed CORKY on 10.26.[address] scan done locally Needs MRI rectum, cea, and scope Patient prefers MRI and cea locally - asked schedulers to reach out Scope schduled 11/17/23 returning nurse's call from yesterday. documented in this encounter [facility] 10-27-2023 Miscellaneous Notes Called patient number listed in message, no answer, left detailed VM requesting patient or to call back to discuss scheduling imaging and scope after CORKY - happy to coordinate all in one day here at [facility], the patient's is calling to discuss his complete of his CORKY treatment. She wants to discuss the timing for his next colonoscopy and having it done locally. She needs the orders placed for the repeat imaging. [phone] documented in this encounter [facility] 08-04-2023 Note HNO ID: [id number] Author: Ernesto Aguiar MD Service: ? Author [...] closed Resting tone: NORMAL Squeeze tone: NORMAL Mail Officer present: Yes, Miranda Gutierrez Palpable mass at [...] mortality and/or complications of treatment plan: moderate [facility] STAFF PHYSICIAN NOTE OF PERSONAL INVOLVEMENT IN [...] August 04, 2023 (more content not included)... [facility] 08-04-2023 History of Presen t illness Narrative [...] closed Resting tone: NORMAL Squeeze tone: NORMAL Mail Officer present: Yes, Miranda Gutierrez Palpable mass at [...] mortality and/or complications of treatment plan: moderate [facility] STAFF PHYSICIAN NOTE OF PERSONAL INVOLVEMENT IN [...] SERVICE: 12:54 PM documented in this encounter [facility] 07-27-2023 Miscellaneous Notes Called and let [...] 07/27/2023 4:21 PM documented in this encounter [facility] 07-27-2023 Note HNO ID: [id number] Author: Zenaida Garland, RT(R) Service: ? Author Type: Web Press Operator Helper Offset Type: Progress Notes Filed: 07/27/2023 4:09 PM [...] DATE: July 27, 2023 TIME: 4:08 PM [facility] 07-27-2023 History of Presen t illness Narrative [...] TIME: 4:08 PM documented in this encounter [facility] 07-15-2023 Miscellaneous Notes SPECIALTY CARE COORDINATION FOLLOW-UP NOTE Spoke with patient. Advised that MRI was done on 07/13 so additional MRI scheduled on 08/[address] Aguiar will see patient on 08/04 in office for a flex sig and he will be presented at MDT for formal recommendations Kesha Quinn RN July 15, 2023 documented in this encounter [facility] 07-13-2023 Note HNO ID: [id number] Author: Alia Anderson RT(R) Service: ? Author [...] DATE: July 13, 2023 TIME: 9:12 AM [facility] 07-13-2023 History of Presen t illness Narrative [...] TIME: 9:12 AM documented in this encounter [facility] 07-08-2023 Miscellaneous Notes I spoke with the patient's and advised that is preferred that the imaging is done here. If they wished to have them locally, we would need a fax order to send the orders. A follow up call was made, and a detailed message was left with these details as well. [phone] documented in this encounter [facility] 07-03-2023 Miscellaneous Notes SPECIALTY CARE COORDINATION [...] July 03, 2023 documented in this encounter [facility] 05-29-2023 Note HNO ID: [id number] Author: Ernesto Aguiar MD Service: ? Author Type: Physician Type: Progress Notes Filed: 05/29/2023 12:25 PM Note Text: Rectal Cancer Tumor Board Initial Presentation Date of conference: 05/29/2023. Date of Diagnosis: 05/05/2023. 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 Performing Lab Diagnostic interpretation performed at [facility], [address] [place] [id number] [place]# [id number] Imaging Reviewed: MRI of pelvis: 05/20/2023. MRI [...] CEA results: Pending (ordered) Pre-treatment clinical stage: [id number]. Tumor board discussion and recommendation: Neoadjuvant therapy [...] and alternatives to the various treatment options. [facility] 05-25-2023 Miscellaneous Notes SPECIALTY CARE COORDINATION FOLLOW-UP NOTE Informed that we received outside imaging, he will be presented at MDT on Thursday and will received official recommendation from Dr. Aguiar. Patient states that current plan is to start chemo and radiation for 27 days 06/01. Kesha Quinn RN May 25, 2023 ----- Message from Mary Kay Herron [facility] sent at 05/25/2023 10:35 AM EDT ----- Regarding: Questions/update Please call the patients Myriam to discuss some additional questions about the plan. She report he saw a local oncologist Dr. Quesada and feels that a chemo treatment preference was discussed in the office with Dr. Aguiar. [phone] documented in this encounter [facility] Diagnosis Malignant neoplasm of rectum (HCC) Malignant neoplasm of rectum documented in this encounter [facility] note* Diagnosis Rectal cancer (HCC)- Primary Malignant neoplasm of rectum documented in this encounter [facility] note* Diagnosis Malignant neoplasm of rectum (HCC)- Primary Malignant neoplasm of rectum documented in this encounter [facility] Summary Purpose Family History No Family History Records FoundNo Family History Records Found Advance Directives No Advanced Directives Records FoundNo Advanced Directives Records Found Reason for Referral Specialty Diagnoses / Procedures Referred By Contac t Referred To Contact MR IMAGING Diagnoses Malignant neoplasm of rectum (HCC) Procedures MRI RECTUM WO/W IVCON MRI PELVIS W/O & W/CONTRAST MATERIAL Ernesto Aguiar MD [address] [place] [address] [facility] [place] [address] Referral ID Status Reason Start Date Expiration Date V isits Requested Visits Authorized [id number] Closed Auto-Generate d Referral 07/09/2023 09/13/2023 1 1 Specialty Diagnoses / Procedures Referred By Contac t Referred To Contact CT IMAGING Diagnoses Malignant neoplasm of rectum (HCC) Procedures CT ABD/PEL W IVCON CT ABD & PELVIS W/CONTRAST Ernesto Aguiar MD [address] [place] [address] [facility] [place] [address] Referral ID Status Reason Start Date Expiration Date V isits Requested Visits Authorized [id number] Closed Auto-Generate d Referral 07/09/2023 09/13/2023 1 1 Specialty Diagnoses / Procedures Referred By Contac t Referred To Contact CT IMAGING Diagnoses Malignant neoplasm of rectum (HCC) Procedures CT CHEST W IVCON DIAGNOSTIC COMPUTED TOMOGRAPHY THORAX W/CONTRAST Ernesto Aguiar MD [address] [place] [address] [facility] [place] [address] Referral ID Status Reason Start Date Expiration Date V isits Requested Visits Authorized [id number] Closed Auto-Generate d Referral 07/09/2023 09/13/2023 1 1 Referral ID Status Reason Start Date Expiration Date Visits Requested Visits Authorized [id number] Pending Review Auto-Generat ed Referral 10/28/2023 11/26/2024 1 1 Additional Source Comments (unrecognized sect ion and content) No Status Records FoundNo Status Records Found INFORMATION SOURCE (unrecogn ized section and content) DATE CREATED AUTHOR AUTHOR'S ERIN FRAZIER 11/04/2023 [facility] Source Comments (unrecognize d section and content) In the event this informatio n is protected by the Federal Confidentiality of Alcohol and Drug Abuse Patient Records regulations: The Federal rules restrict any use of the information to criminally investigate or prosecute any alcohol or drug abuse patient.[facility] the event this information is protected by the Federal Confidentiality of Alcohol and Drug Abuse Patient Records regulations: The Federal rules restrict any use of the information to criminally investigate or prosecute any alcohol or drug abuse patient.[facility] the event this information is protected by the Federal Confidentiality of Alcohol and Drug Abuse Patient Records regulations: The Federal rules restrict any use of the information to criminally investigate or prosecute any alcohol or drug abuse patient.[facility] the event this information is protected by the Federal Confidentiality of Alcohol and Drug Abuse Patient Records regulations: The Federal rules restrict any use of the information to criminally investigate or prosecute any alcohol or drug abuse patient.[facility] the event this information is protected by the Federal Confidentiality of Alcohol and Drug Abuse Patient Records regulations: The Federal rules restrict any use of the information to criminally investigate or prosecute any alcohol or drug abuse patient.[facility] the event this information is protected by the Federal Confidentiality of Alcohol and Drug Abuse Patient Records regulations: The Federal rules restrict any use of the information to criminally investigate or prosecute any alcohol or drug abuse patient.[facility] the event this information is protected by the Federal Confidentiality of Alcohol and Drug Abuse Patient Records regulations: The Federal rules restrict any use of the information to criminally investigate or prosecute any alcohol or drug abuse patient.[facility] the event this information is protected by the Federal Confidentiality of Alcohol and Drug Abuse Patient Records regulations: The Federal rules restrict any use of the information to criminally investigate or prosecute any alcohol or drug abuse patient.[facility] the event this information is protected by the Federal Confidentiality of Alcohol and Drug Abuse Patient Records regulations: The Federal rules restrict any use of the information to criminally investigate or prosecute any alcohol or drug abuse patient.[facility] the event this information is protected by the Federal Confidentiality of Alcohol and Drug Abuse Patient Records regulations: The Federal rules restrict any use of the information to criminally investigate or prosecute any alcohol or drug abuse patient.[facility] the event this information is protected by the Federal Confidentiality of Alcohol and Drug Abuse Patient Records regulations: The Federal rules restrict any use of the information to criminally investigate or prosecute any alcohol or drug abuse patient.[facility] Hospital[facility] the event this information is protected by the Federal Confidentiality of Alcohol and Drug Abuse Patient Records regulations: The Federal rules restrict any use of the information to criminally investigate or prosecute any alcohol or drug abuse patient.[facility] Care Teams (unrecognized sec tion and content) Handle Turner Relationship Specialty Start Date End Date Jt Stokes MD [address] [place] [address] PCP - General Family Medicine 07/21/19 Andre Quesada MD [address] [place] [address] Oncology 05/25/23 Handle Turner Relationship Specialty Start Date End Date Jt Stokes MD [address] [place] [address] PCP - General Family Medicine 07/21/19 Andre Quesada MD [address] [place] [address] Oncology 05/25/23 Handle Turner Relationship Specialty Start Date End Date Jt Stokes MD [address] [place] [address] PCP - General Family Medicine 07/21/19 Andre Quesada MD [address] [place] [address] Oncology 05/25/23 Handle Turner Relationship Specialty Start Date End Date Jt Stokes MD [address] [facility] [address] [place], [place] [address] PCP - General Family Medicine 07/21/19 Andre Quesada MD [address] [facility] [address] [place] [address] Oncology 05/25/23 Handle Turner Relationship Specialty Start Date End Date Jt Stokes MD [address] [facility] [address] [place], [place] [id number] PCP - General Family Medicine 07/21/19 Andre Quesada MD [address] [facility] [address] [place] [address] Oncology 05/25/23 Handle Turner Relationship Specialty Start Date End Date Jt tSokes MD [address] [facility] [address] [place], [place] [id number] PCP - General Family Medicine 07/21/19 Andre Quesada MD [address] [facility] [address] [place] [address] Oncology 05/25/23 Reason for Visit (unrecogniz ed section and content) Reason Comments Patient Question Reason Comments Care Coordination Specialty Diagnoses / Procedures Referred By Contac t Referred To Contact MR IMAGING Diagnoses Malignant neoplasm of rectum (HCC) Procedures MRI RECTUM WO/W IVCON MRI PELVIS W/O & W/CONTRAST MATERIAL Ernesto Aguiar MD [address] [place] [address] [place] [address] Referral ID Status Reason Start Date Expiration Date V isits Requested Visits Authorized [id number] Closed Auto-Generate d Referral 07/09/2023 09/13/2023 [address] chest/abd/pel res ults Reason Comments Radiology CT Specialty Diagnoses / Procedures Referred By Contac t Referred To Contact CT IMAGING Diagnoses Malignant neoplasm of rectum (HCC) Procedures CT ABD/PEL W IVCON CT ABD & PELVIS W/CONTRAST Ernesto Aguiar MD [address] [facility] [address] [place] [id number] [facility] [place] [address] Referral ID Status Reason Start Date Expiration Date V isits Requested Visits Authorized [id number] Closed Auto-Generate d Referral 07/09/2023 09/13/2023 1 1 Reason Comments Established Patient Specialty Diagnoses / Procedures Referred By Contac t Referred To Contact Colon and Rectal Surgery / COLORECTAL SURGERY Diagnoses Discussing imaging from 07/29 rectal cancer/flex sig - completed chemoradiation on 07/07 Procedures OFFICE/OUTPATIENT ESTABLISHED MOD MDM 30-39 MIN EST DDI PATIENT Jt Stokes MD [address] [place] [address] Ernesto Aguiar MD [address] [facility] [place] [id number] Referral ID Status Reason Start Date Expiration Date Visits Re quested Visits Authorized [id number] Closed 08/04/2023 09/13/2023 1 1 Reason Comments Patient Update Reason Comments Appointment FOR RECORDS PERTAINING TO PATIENTS WHO ARE [...] BE BASED ON THE PRIMARY CLINICAL RECORDS. [employer] provides no warranty or guarantee of the accuracy or completeness of information in this document.
--- NOTE | 2023-11-10 08:01 | MRI_ITS ---
STUDY: MRI LUMBAR SPINE WITH AND WITHOUT CONTRAST REASON FOR EXAM: Male, 63 years old. radiculopathy TECHNIQUE: Standardized fat and water weighted pulse sequences were obtained in the sagittal and axial planes. IV 27ml clariscan was administered for the contrast portion of the examination. COMPARISON: None FINDINGS: T12-L1: Normal endplates. Normal disc height, hydration and morphology. Normal bilateral facet joints. Normal central canal and bilateral lateral recesses. Normal bilateral intervertebral neural foramina. Normal lumbar lordosis. There is no substantial scoliosis. Normal conus medullaris that terminates at T12 L1-2: Normal endplates. Normal disc height, hydration and morphology. Normal bilateral facet joints. Normal central canal and bilateral lateral recesses. Normal bilateral intervertebral neural foramina. L2-3: Normal endplates. Normal disc height, desiccation and minimal annular bulge.. Normal bilateral facet joints. Normal central canal and bilateral lateral recesses. Minor bilateral neural foraminal encroachment L3-4: Normal endplates. Narrowed disc space with desiccation of the disc and minor bulging of the annulus.. Facet arthropathy and thickening of ligamenta flava.. Normal central canal and bilateral lateral recesses. Moderate bilateral neural foraminal stenosis. L4-5: Grade 1 spondylolisthesis Normal endplates. Normal disc height, desiccation and mild bulging disc osteophyte complex.. Facet arthropathy and thickening of the ligamentum flavum on the left.. Normal central canal. Moderate bilateral lateral recess and neural foraminal stenosis. L5-S1: There is low signal intensity within the inferior aspect of the L5 vertebral body on T1 which is increasing in signal intensity on T2 and STIR imaging sequences and enhances following contrast administration which may be consistent with bone metastasis.. Normal disc height, desiccation and tiny central disc protrusion.. Mild facet arthropathy. Normal central canal and bilateral lateral recesses. Normal bilateral intervertebral neural foramina. There is diffuse fatty marrow of the sacrum likely due to postradiation change Normal visualized paraspinous soft tissue structures. MRI/Spine Lumbar W/WO Contrast IMPRESSION: Diffuse fatty replacement of the sacrum most likely due to postradiation changes. Multilevel spinal stenosis secondary to disc disease and bony hypertrophy. Findings which may be consistent with metastatic lesion involving the L5 vertebral body . However clinical correlation is recommended and correlation with CAT scan or radionuclide bone scan for further assessment Electronically Signed: Dale Monahan MD at 22:33 EST ,
[2023-11-10] MEDS: 0.9% Saline Lock 10 ML Syringe IV (09:02)
== END | disposition home or self-care (01) ==
LOC: MRI 07:54
PROVIDERS: PCP Family Medicine; Referring Provider Student in an Organized Health Care Education/Training Program; Visit Provider Student in an Organized Health Care Education/Training Program
DX: M54.16 Radiculopathy, lumbar region (principal)
CPT/HCPCS: 72158; A9575; A4216

== ENCOUNTER 2023-11-11 12:55 | Inpatient (IN) | payer MEDICARE, OTHER, SELFPAY ==
[2023-11-11] VITALS (9 sets, daily range): BP systolic 118–151; BP diastolic 60–108; PULSE 66–155; RESP 14–22; TEMP 35.5–37; O2SAT 94–99; BMI 42.6; BMI 19.3
--- NOTE | 2023-11-11 13:38 | CT_ITS ---
STUDY: CT ABDOMEN AND PELVIS WITH CONTRAST REASON FOR EXAM: Male, 63 years old. Right flank pain. Hematuria. Rectal carcinoma. RADIATION DOSAGE (If Supplied By Facility): CTDIvol = ( 17.22 ) mGy, DLP = ( 1418.93 ) mGycm TECHNIQUE: Transaxial images were obtained from the dome of the diaphragm to the symphysis pubis without oral contrast. IV 100mL Isovue-370 was administered. Sagittal and coronal images were reconstructed. Individualized dose optimization techniques were used for this CT. COMPARISON: Comparison is made with prior study dated October 25, 2023. FINDINGS: The visualized lung bases are unremarkable. The visualized portions of the heart are within normal limits. There is decreased attenuation of the liver consistent with steatosis. Hepatomegaly. Normal gallbladder and extrahepatic biliary system. Normal spleen. Normal pancreas. Normal bilateral adrenal glands. Mild degree of right hydronephrosis. Tiny calculus is seen at the right ureterovesical junction. Normal left kidney. Normal visualized stomach. Normal small intestine. There are scattered colonic diverticula consistent with diverticulosis. The patient is status post cholecystectomy. Normal abdominal aorta. Normal inferior vena cava. Normal retroperitoneum. Normal urinary bladder. There is enlargement of the prostate gland. There is a small umbilical hernia containing fat. There are diffuse degenerative changes of the visualized lumbar spine. Stable grade 1 anterolisthesis of L4 on L5 with spondylolysis of the pars interarticularis of the L5 vertebrae. CT/Abdomen/Pelvis W IV Cont ONLY IMPRESSION: Mild degree of right hydronephrosis due to a tiny calculus at the right ureterovesical junction. The remainder of the examination is unchanged. Electronically Signed: Al Beasley MD at 15:40 EST ,
[2023-11-11] MEDS: 0.9% Normal Saline (1000mL) 1,000 ML 125 ML IV ×2 (13:58→23:12)
[2023-11-11] MEDS: HYDROmorphone 1 MG/ML Syringe IV ×2 (13:59→15:16)
[2023-11-11] MEDS: Ondansetron 4 MG/2 ML Vial IV (13:59)
[2023-11-11 14:14] LABS: Absolute Lymphocyte Count 0.31 X10^3/uL (0.83-4.51); Absolute Neutrophil Count 6.8 X10^3/uL (2.0-7.7); Basophil# 0.01 X10^3/uL; Basophil% 0.1 % (0-1); Hematocrit 34.5 % (40-54); Hemoglobin 11.6 g/dL (13.0-16.5); Lymphocyte # 0.31 X10^3/ul (0.83-4.51); Lymphocyte % 3.9 % (19-41); Mean Corp Hgb Conc 33.6 g/dL (32-36); Mean Corpuscular Hgb 35.8 pg (27.0-32.0); Mean Corpuscular Volume 106.5 fL (80-94); Mean Platelet Vol. 9.4 fl (6.2-12.0); Monocyte# 0.62 X10^3/uL; Monocyte% 7.9 % (0-10); NRBC Flagged by Analyzer 0 % (0-5); Neutrophil # 6.84 X10^3/uL (2.7-7.7); Neutrophil % 87.2 % (47-70); POSITIVE DIFFERENTIAL YES; POSITIVE MORPHOLOGY YES; Platelet Count 151 K/mm3 (150-450); RBC Distribution Width CV 17.9 % (11.6-14.6); RBC Distribution Width SD 70.9 fl (35.1-43.9); Red Blood Count 3.24 M/mm3 (4.6-6.2); White Blood Count 7.9 K/mm3 (4.4-11.0)
[2023-11-11 14:30] LABS: AST(SGOT) 14 U/L (15-37); Alanine Aminotransfer ALT/SGPT 29 U/L (16-61); Albumin, Serum 3.1 g/dL (3.2-5.0); Alkaline Phosphatase 94 U/L (45-117); Anion Gap 9 (5-15); BUN 24 mg/dL (7-18); Calcium,Total 8.8 mg/dL (8.5-10.1); Chloride 110 mmol/L (98-107); Creatinine, Serum 1.26 mg/dL (0.70-1.30); EST Glomerular Filtration Rate 61 mL/min (>60); Est Glom Filt Rate - Afr Amer 74 mL/min (>60); Estimated Creatinine Clearance 83.18 ml/min; Globulin 3.1 g/dL (2.2-4.2); Glucose 131 mg/dL (74-106); Potassium 3.9 mmol/L (3.5-5.1); Protein, Total 6.2 g/dL (6.4-8.2); Sodium Level 142 mmol/L (136-145)
[2023-11-11 14:38] LABS: Lactic Acid 2.6 mmol/L (0.4-1.9)
[2023-11-11 14:45] LABS: Differential Indicated SCAN CRITERIA MET
[2023-11-11 15:10] LABS: Anisocytosis 1+; Differential Comment SCANNED
[2023-11-11 15:26] LABS: Bacteria 0 SEEN /hpf (None Seen); Mucous, Urine 0 SEEN /hpf (<or=2+); White Blood Cells 0 SEEN /hpf (0-5)
[2023-11-11 15:31] LABS: Color, Urine Yellow (Yellow); Glucose, Dipstick 50 mg/dl (Normal); Ketone-Dipstick Negative (Negative); Leukocyte Esterase-Dipstick 25 /ul (Negative); Nitrite-Dipstick Negative (Negative); Occult Blood-Urine 250 /ul (Negative); Protein-Dipstick 30 mg/dl (Negative); Specific Gravity, Urine 1.015 (1.002-1.030); Urine Bilirubin Dipstick Negative (Negative); Urine Clarity Sl. Cloudy (Clear); Urine Urobilinogen 1 mg/dl (Normal)
[2023-11-11 15:39] LABS: International Normalized Ratio 1.6; Prothrombin Time (Protime)PT. 19.4 SECONDS (11.7-14.9)
--- NOTE | 2023-11-11 16:44 | EDS_ITS ---
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 Patient states that started at rest this morning and is quite severe. Describes the pain as constant. Notes that he think he saw some blood in his urine. Has not tried thing for pain today. He has been having ongoing back pain as well for the past 2 weeks but actually an MRI for this yesterday. Has tried Tylenol and oxycodone for this back pain (over the past 2 weeks) but states it does not help . Today the pain is in his right lower quadrant and radiates to his flank and down to his groin. Denies any dysuria. States this feels different than his bilateral flank pain has been having associated with his back pain. Denies any fever or chills. No systemic symptoms reported. No other complaints or concerns at this time. 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 Low back pain Non-smoker CORRINA (obstructive sleep apnea) Pulmonary embolism (06/10/18) Rectal cancer Rectal mass Sinusitis Thyroid disease Weight gain with edema Home Medications cholecalciferol (vitamin D3) 50 mcg (2,000 unit) capsule 2,000 unit PO DAILY supplement 06/16/19 [History Last Taken 06/16/19] furosemide 40 mg tablet 40 mg PO DAILY diuretic 06/16/19 [History Last Taken 08/02/23] benazepril 20 mg tablet 20 mg PO DAILY blood pressure 01/09/21 [History Last Taken 08/02/23] sertraline 50 mg tablet 50 mg PO DAILY depression 01/09/21 [History Last Taken Unknown] omeprazole 20 mg capsule,delayed release 20 mg PO Q OTHER DAY PRN GERD 10/25/21 [History Last Taken 08/02/23] rosuvastatin 5 mg tablet (Crestor) 5 mg PO Q OTHER DAY cholesterol #45 tabs 12/25/22 [Rx Last Taken Unknown] aspirin 81 mg tablet,delayed release (Enteric Coated Aspirin) 81 mg PO DAILY heart #90 tabs 01/11/23 [Rx Last Taken 08/02/23] diltiazem HCl 300 mg capsule,extended release 24 hr 300 mg PO DAILY heart #90 caps 04/30/23 [Rx Last Taken 08/02/23] warfarin 3 mg tablet 3 mg PO QHS blood thinner 07/09/23 [History Last Taken 07/30/23] lidocaine-prilocaine 2.5 %-2.5 % topical cream 1 applic topical ONCE PRN port access 30 days #30 grams 07/29/23 [Rx Last Taken Unknown] warfarin 5 mg tablet 5 mg PO DAILY 08/10/23 [History Last Taken Unknown] diclofenac sodium 1 % topical gel See Rx Instructions .Route .COMPLEX #100 grams 08/31/23 [Rx Last Taken Unknown] warfarin 1 mg tablet 1 mg PO .COMPLEX 10/12/23 [History Last Taken Unknown] Allergy/AdvReac Type Severity Reaction Status Date / Time apixaban [From Eliquis] AdvReac Severe Pt formed Verified 11/11/23 12:56 PE's in spite of taking routinely simvastatin AdvReac Severe Myalgias Verified 11/11/23 12:56 doxycycline AdvReac Intermediate GI upset Verified 11/11/23 12:56 Family History Mother CAD (coronary artery disease) Diabetes Hypertension Hyperlipidemia Heart disease Father CVA (cerebral vascular accident) Surgical History History of appendectomy History of appendectomy History of cardiac catheterization History of colonoscopy (~06/2016) History of hip surgery History of left heart catheterization (10/21/18) History of left inguinal hernia repair Social History Smoking Status: Never smoker alcohol intake: never substance use type: does not use caffeine: Yes Type: carbonated beverages Number of servings: 1 ROS ROS ED Constitutional Constitutional ED: Denies chills or fever(s) Respiratory/Chest Respiratory/Chest: Denies cough Gastrointestinal Gastrointestinal: Reports abdominal pain and nausea; Denies diarrhea or vomiting Genitourinary Genitourinary ED: Reports hematuria; Denies dysuria Musculoskeletal Musculoskeletal: Reports back pain; Denies arthralgias or myalgias Integumentary Denies rash Neurologic Neurologic: Denies headache(s) Psychiatric Psychiatric: Denies anxiety Hematologic/Lymphatic Hematologic/Lymphatic: Reports easy bleeding and easy bruising EXAM Physical Exam Const Vital Signs: 11/11/23 12:56 11/11/23 13:05 11/11/23 13:05 Temperature 95.9 F L 97.9 F Temperature Source Temporal Oral Pulse Rate 155 H 140 H 140 H Respiratory Rate 22 H 16 15 Blood Pressure 136/108 H 146/78 H 146/78 H Blood Pressure Mean 117 100 100 Pulse Ox 97 97 97 Oxygen Delivery Method Room Air Room Air Room Air 11/11/23 13:27 11/11/23 15:00 Temperature Temperature Source Pulse Rate 80 130 H Respiratory Rate 14 16 Blood Pressure 151/72 H 132/66 H Blood Pressure Mean 98 88 Pulse Ox 99 96 Oxygen Delivery Method Room Air Room Air Positive well nourished, well developed and obese General Appearance ED: well developed and NAD Nutritional Appearance: obese HEENT Reports moist mucous membranes Chest Wall inspection of chest normal Resp normal respiratory effort and clear to auscultation bilaterally Cardio regular rate, regular rhythm and no murmurs GI normal to inspection, nondistended, normoactive bowel sounds, non-tender and non-distended Back/Spine no CVA tenderness Back/Spine Narrative: No midline tenderness. Band-Aid over approximately L5 from recent injection. Right lower lumbar paraspinal tenderness however this is different from his acute pain per patient. Extremity normal to inspection Neuro oriented x3 Sensorium / Orientation: alert Motor Exam: Negative for general weakness Psych mental status grossly normal Skin no rashes or lesions noted and no wounds MDM MDM MDM Narrative Medical decision making narrative: Patient evaluated for severe right flank pain. This is acute today but he is also been having ongoing issues with bilateral back and flank pain. Chart review shows that patient had an outpatient lumbar MRI of the spine yesterday which showed postradiation changes to the sacrum, multilevel spinal stenosis secondary to his disease and bony hypertrophy and findings which may be consistent with metastatic lesion involving L5 vertebral body. In addition patient had an outpatient renal ultrasound on 10/29 for right-sided back pain which showed perinephric edema/fluid bilaterally but no kidney stone. On 10/[address] flank study which showed fatty liver, colonic diverticulosis but normal kidneys. Per nursing report patient is intermittently tachycardic however every time I am in the room patient is normal sinus rhythm. Urinalysis shows 250 blood on dip but only 25 leukocyte esterase and no nitrites. Microscopy is still pending. CBC is largely normal he has a mild but stable anemia with a hemoglobin of 11.6. His CMP is normal with a creatinine of 1.26 which appears to be his baseline. He does have an elevated creatinine of 2.6 which is obtained because patient has some slight pain on proportion. INR is subtherapeutic at 1.6. Patient is go to tell me that he did not really drink any water yesterday. He is given some IV fluids in the ER. CT abdomen pelvis shows mild degree of right hydronephrosis due to a tiny calculus on the right UVJ with no other acute changes. Patient is initially given 1 mg IV Dilaudid for pain control as well as IV fluids. He continues to have significant pain is given a second dose of 1 mg IV Dilaudid. He continues to have significant pain and was given 100 mcg of fentanyl and a dose of Toradol (since his INR subtherapeutic). I will admit for pain control to urology given this kidney stone which should pass on its own. Patient is agreeable this plan of care. Of note besides recent prescription for Percocet patient is not on chronic pain medication. Case is discussed with Dr. Cortez who accepts the patient to his service. Lab Data Attestation: I reviewed the patient's lab results. Labs: Laboratory Results - last 24 hr 11/11/23 11/11/23 14:00 15:22 WBC 7.9 RBC 3.24 L Hgb 11.6 L Hct 34.5 L MCV 106.5 H MCH 35.8 H MCHC 33.6 RDW Std Deviation 70.9 H RDW Coeff of [place] 17.9 H Plt Count 151 MPV 9.4 Immature Gran % (Auto) 0.900 Neut % (Auto) 87.2 H Lymph % (Auto) 3.9 L [place] % (Auto) 7.9 Eos % (Auto) 0.0 Baso % (Auto) 0.1 Absolute Neuts (auto) 6.8 Absolute Lymphs (auto) 0.31 L Nucleated RBC % 0 Differential Comment SCANNED Anisocytosis 1+ PT 19.4 H INR 1.6 Sodium 142 Potassium 3.9 Chloride 110 H Carbon Dioxide 23.0 Anion Gap 9 BUN 24 H Creatinine 1.26 Estim Creat Clear Calc 83.18 Est GFR (MDRD) Af Amer 74 Est GFR (MDRD) Non-Af 61 BUN/Creatinine Ratio 19.0 Glucose 131 H Lactic Acid 2.6 H* Calcium 8.8 Total Bilirubin 0.60 AST 14 L ALT 29 Alkaline Phosphatase 94 Total Protein 6.2 L Albumin 3.1 L Globulin 3.1 Albumin/Globulin Ratio 1.0 Urine Color Yellow Urine Clarity Sl. Cloudy Urine pH 7.0 Ur Specific [place] 1.015 Urine Protein 30 H Urine Glucose (UA) 50 H Urine Ketones Negative Urine Occult Blood 250 H Urine Nitrite Negative Urine Bilirubin Negative Urine Urobilinogen 1 H Ur Leukocyte Esterase 25 H Urine RBC 50-100 SEEN Urine WBC 0 SEEN Ur Squamous Epith Cells 0-5 SEEN Urine Bacteria 0 SEEN Urine Mucus 0 SEEN Radiography Diagnostic Testing: Clinical Impression(s) from Imaging Studies Abdomen/Pelvis CT 11/11/23 13:38 IMPRESSION: Mild degree of right hydronephrosis due to a tiny calculus at the right ureterovesical junction. The remainder of the examination is unchanged. 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 Discharge Plan Triage Chief Complaint: Abd Pain ED Provider: Yun Sarmiento Dx/Rx/DC Orders Clinical Impression: Renal colic on right side, Hydroureter, right Prescriptions: No Action benazepril 20 mg tablet 20 mg PO DAILY Patient Comments: TAKE 1 TABLET BY MOUTH EVERY DAY sertraline 50 mg tablet 50 mg PO DAILY lidocaine-prilocaine 2.5-2.5 % cream 1 applic topical ONCE PRN (Reason: port access) 30 Days Qty: 30 2RF cholecalciferol (vitamin D3) 2,000 UNIT capsule 2,000 unit PO DAILY omeprazole 20 mg capsule,delayed release(DR/EC) 20 mg PO Q OTHER DAY PRN (Reason: GERD) warfarin 3 mg tablet 3 mg PO QHS Protocol: Dose Management Condition: Thursday Dose/Route: 3 mg Instruction: 1 x 3 mg tablet Condition: Thursday Dose/Route: 3 mg Instruction: 1 x 3 mg tablet Condition: Thursday Dose/Route: 3 mg Instruction: 1 x 3 mg tablet Condition: Thursday Dose/Route: 3 mg Instruction: 1 x 3 mg tablet Condition: Dose/Route: 3 mg Instruction: 1 x 3 mg tablet Condition: Thursday Dose/Route: 3 mg Instruction: 1 x 3 mg tablet Condition: Thursday Dose/Route: 3 mg Instruction: 1 x 3 mg tablet Protocol Text: Adjustment Start Date: Thursday11/10/23 INR Value: 1.9 INR Date: 11/10/23 Recheck Date: 11/24/23 Rx Instructions: Dose change to 8mg daily: needs 5mg +3mg tabs furosemide 40 mg tablet 40 mg PO DAILY rosuvastatin [Crestor] 5 mg tablet 5 mg PO Q OTHER DAY Qty: 45 3RF aspirin [Enteric Coated Aspirin] 81 mg tablet,delayed release (DR/EC) 81 mg PO DAILY Qty: 90 3RF diltiazem HCl 300 mg capsule,extended release 24hr 300 mg PO DAILY Qty: 90 3RF warfarin 5 mg tablet 5 mg PO DAILY Protocol: Dose Management Condition: Thursday Dose/Route: 3 mg Instruction: 1 x 3 mg tablet Condition: Thursday Dose/Route: 3 mg Instruction: 1 x 3 mg tablet Condition: Thursday Dose/Route: 3 mg Instruction: 1 x 3 mg tablet Condition: Thursday Dose/Route: 3 mg Instruction: 1 x 3 mg tablet Condition: Dose/Route: 3 mg Instruction: 1 x 3 mg tablet Condition: Thursday Dose/Route: 3 mg Instruction: 1 x 3 mg tablet Condition: Thursday Dose/Route: 3 mg Instruction: 1 x 3 mg tablet Protocol Text: Adjustment Start Date: Thursday11/10/23 INR Value: 1.9 INR Date: 11/10/23 Recheck Date: 11/24/23 diclofenac sodium 1 % gel See Rx Instructions .ROUTE .COMPLEX Qty: 100 2RF Dose Instruction: 2 G TOPICALLY TWICE A DAY APPLY TO HANDS AND FEET TWICE DAILY Rx Instructions: 2 G TOPICALLY TWICE A DAY APPLY TO HANDS AND FEET TWICE DAILY warfarin 1 mg tablet 1 mg PO .COMPLEX Protocol: Dose Management Condition: Thursday Dose/Route: 3 mg Instruction: 1 x 3 mg tablet Condition: Thursday Dose/Route: 3 mg Instruction: 1 x 3 mg tablet Condition: Thursday Dose/Route: 3 mg Instruction: 1 x 3 mg tablet Condition: Thursday Dose/Route: 3 mg Instruction: 1 x 3 mg tablet Condition: Dose/Route: 3 mg Instruction: 1 x 3 mg tablet Condition: Thursday Dose/Route: 3 mg Instruction: 1 x 3 mg tablet Condition: Thursday Dose/Route: 3 mg Instruction: 1 x 3 mg tablet Protocol Text: Adjustment Start Date: Thursday11/10/23 INR Value: 1.9 INR Date: 11/10/23 Recheck Date: 11/24/23 Rx Instructions: 1 mg orally as directed for dose changes; Primary Care Provider: Hao Membreno Referrals: Hao Membreno MD [Primary Care Provider] -
[2023-11-11 16:51] LABS: Red Blood Cells-Urine 50-100 SEEN /hpf (0-5)
[2023-11-11 16:52] LABS: Squamous Epithelial Cells - UA 0-5 SEEN /hpf (0-5)
[2023-11-11] MEDS: fentaNYL 100 MCG/2 ML Ampul IV (16:59)
[2023-11-11] MEDS: Ketorolac 15 MG/ML Vial IV (16:59)
--- NOTE | 2023-11-11 17:05 | HP.PCM_ITS ---
HPI - General General Date of Admission: 11/11/23 Chief Complaint: right ureteral calculi HPI Narrative MIGUE STROUD, is a 63 M who presents severe pain intractable , admitted from ER with small stone stuck in the rught [facility] Medical History Abdominal pain Acute cough Afib Arthritis Asthma Benign essential hypertension BiPAP (biphasic positive airway pressure) dependence Cancer Cardiology follow-up encounter COVID-19 Dry skin DVT (deep venous thrombosis) Dyspnea on exertion Edema Encounter for education Fatigue Gastric reflux Gastroesophageal reflux disease High cholesterol History of atrial fibrillation History of echocardiogram History of edema History of steroid therapy History of venous thromboembolism Hyperlipidemia Hypertension Hypokalemia Kidney stone USP current use 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 Low back pain Non-smoker CORRINA (obstructive sleep apnea) Pulmonary embolism (06/10/18) Rectal cancer Rectal mass Sinusitis Thyroid disease Weight gain with edema Home Medications cholecalciferol (vitamin D3) 50 mcg (2,000 unit) capsule 2,000 unit PO DAILY supplement 06/16/19 [History Last Taken 06/16/19] furosemide 40 mg tablet 40 mg PO DAILY diuretic 06/16/19 [History Last Taken 08/02/23] benazepril 20 mg tablet 20 mg PO DAILY blood pressure 01/09/21 [History Last Taken 08/02/23] sertraline 50 mg tablet 50 mg PO DAILY depression 01/09/21 [History Last Taken Unknown] omeprazole 20 mg capsule,delayed release 20 mg PO Q OTHER DAY PRN GERD 10/25/21 [History Last Taken 08/02/23] rosuvastatin 5 mg tablet (Crestor) 5 mg PO Q OTHER DAY cholesterol #45 tabs 12/25/22 [Rx Last Taken Unknown] aspirin 81 mg tablet,delayed release (Enteric Coated Aspirin) 81 mg PO DAILY heart #90 tabs 01/11/23 [Rx Last Taken 08/02/23] diltiazem HCl 300 mg capsule,extended release 24 hr 300 mg PO DAILY heart #90 caps 04/30/23 [Rx Last Taken 08/02/23] warfarin 3 mg tablet 3 mg PO QHS blood thinner 07/09/23 [History Last Taken 07/30/23] lidocaine-prilocaine 2.5 %-2.5 % topical cream 1 applic topical ONCE PRN port access 30 days #30 grams 07/29/23 [Rx Last Taken Unknown] warfarin 5 mg tablet 5 mg PO DAILY 08/10/23 [History Last Taken Unknown] diclofenac sodium 1 % topical gel See Rx Instructions .Route .COMPLEX #100 grams 08/31/23 [Rx Last Taken Unknown] warfarin 1 mg tablet 1 mg PO .COMPLEX 10/12/23 [History Last Taken Unknown] Allergy/AdvReac Type Severity Reaction Status Date / Time apixaban [From Eliquis] AdvReac Severe Pt formed Verified 11/11/23 12:56 PE's in spite of taking routinely simvastatin AdvReac Severe Myalgias Verified 11/11/23 12:56 doxycycline AdvReac Intermediate GI upset Verified 11/11/23 12:56 Family History Mother CAD (coronary artery disease) Diabetes Hypertension Hyperlipidemia Heart disease Father CVA (cerebral vascular accident) Surgical History History of appendectomy History of appendectomy History of cardiac catheterization History of colonoscopy (~06/2016) History of hip surgery History of left heart catheterization (10/21/18) History of left inguinal hernia repair Social History Smoking Status: Never smoker alcohol intake: never substance use type: does not use caffeine: Yes Type: carbonated beverages Number of servings: 1 ROS Constitutional Constitutional: Denies chills, fever(s) or malaise Eyes Eyes: Denies blurry vision or change in vision ENT HEENT: Reports none Cardiovascular Cardiovascular: Denies chest pain or palpitations Respiratory/Chest Respiratory/Chest: Denies cough or shortness of breath with exertion Gastrointestinal Gastrointestinal: Denies abdominal pain, constipation or diarrhea Musculoskeletal Musculoskeletal: Denies back pain, joint stiffness or joint swelling Integumentary Integumentary: Denies dry skin, jaundice, lesions or rash Neurologic Neurologic: Denies confusion, syncope or weakness Psychiatric Psychiatric: Reports none; Denies anxiety or depression Endocrine Endocrinology: Denies excessive sweating, fatigue or flushing Hematologic/Lymphatic Hematologic/Lymphatic: Denies anemia, easy bleeding or easy bruising Vital Signs Vital Signs Vital Signs: 11/11/23 12:56 11/11/23 13:05 11/11/23 13:05 Temperature 95.9 F L 97.9 F Temperature Source Temporal Oral Pulse Rate 155 H 140 H 140 H Respiratory Rate 22 H 16 15 Blood Pressure 136/108 H 146/78 H 146/78 H Blood Pressure Mean 117 100 100 Pulse Ox 97 97 97 Oxygen Delivery Method Room Air Room Air Room Air 11/11/23 13:27 11/11/23 15:00 Temperature Temperature Source Pulse Rate 80 130 H Respiratory Rate 14 16 Blood Pressure 151/72 H 132/66 H Blood Pressure Mean 98 88 Pulse Ox 99 96 Oxygen Delivery Method Room Air Room Air Weight Weight: 138.6 kg Body Mass Index (BMI) 42.6 Physical Exam Const alert and oriented x3 General Appearance: cooperative HEENT normocephalic, head/scalp atraumatic, EAC's normal and TM's normal bilaterally Eyes PERRL and EOMs intact bilaterally Pupil: sluggish Neck no lymphadenopathy, supple and no JVD General: trachea midline Lymph Lymphatic: no lymphadenopathy noted, lymphedema and lymphadenopathy Resp normal respiratory effort, normal air movement and clear to auscultation bilaterally Cardio regular rate, regular rhythm and peripheral pulses 2+ throughout GI soft to palpation, non-tender and non-distended Extremity normal capillary refill and no clubbing, cyanosis or edema General Extremity: no tenderness to palpation of joints or extremities Skin no rashes or lesions noted General Skin Exam: turgor normal Lesions: no lesions Rashes: no rashes Neuro CN's II-XII intact bilaterally Speech: speech normal Motor Exam: strength 5/5 throughout; Negative for general weakness Psych thought process normal, cooperative and affect normal Appearance: appropriate Results Medical Records Data Attestation: I reviewed the patient's medical records Lab / Micro Data 11/11/23 14:00 11/11/23 14:00 Labs: Laboratory Results - last 24 hr 11/11/23 14:00: WBC 7.9, RBC 3.24 L, Hgb 11.6 L, Hct 34.5 L, MCV 106.5 H, MCH 35.8 H, MCHC 33.6, RDW Std Deviation 70.9 H, RDW Coeff of [place] 17.9 H, Plt Count 151, MPV 9.4, Immature Gran % (Auto) 0.900, Neut % (Auto) 87.2 H, Lymph % (Auto) 3.9 L, [place] % (Auto) 7.9, Eos % (Auto) 0.0, Baso % (Auto) 0.1, Absolute Neuts (auto) 6.8, Absolute Lymphs (auto) 0.31 L, Nucleated RBC % 0, Differential Comment SCANNED, Anisocytosis 1+, PT 19.4 H, INR 1.6, Sodium 142, Potassium 3.9, Chloride 110 H, Carbon Dioxide 23.0, Anion Gap 9, BUN 24 H, Creatinine 1.26, Estim Creat Clear Calc 83.18, Est GFR (MDRD) Af Amer 74, Est GFR (MDRD) Non-Af 61, BUN/Creatinine Ratio 19.0, Glucose 131 H, Lactic Acid 2.6 H*, Calcium 8.8, Total Bilirubin 0.60, AST 14 L, ALT 29, Alkaline Phosphatase 94, Total Protein 6.2 L, Albumin 3.1 L, Globulin 3.1, Albumin/Globulin Ratio 1.0 11/11/23 15:22: Urine Color Yellow, Urine Clarity Sl. Cloudy, Urine pH 7.0, Ur Specific [place] 1.015, Urine Protein 30 H, Urine Glucose (UA) 50 H, Urine Ketones Negative, Urine Occult Blood 250 H, Urine Nitrite Negative, Urine Bilirubin Negative, Urine Urobilinogen 1 H, Ur Leukocyte Esterase 25 H, Urine RBC 50-100 SEEN, Urine WBC 0 SEEN, Ur Squamous Epith Cells 0-5 SEEN, Urine Bacteria 0 SEEN, Urine Mucus 0 SEEN Imaging Radiology Impression Abdomen/Pelvis CT 11/11/23 13:38 IMPRESSION: Mild degree of right hydronephrosis due to a tiny calculus at the right ureterovesical junction. The remainder of the examination is unchanged. Electronically Signed: Al Beasley MD at 15:40 EST , Assessment & Plan Assessment/Plan (1) Renal colic on right side: PLAN: admit for severe intracable pain from kidney stone (2) Hydroureter, right:
[2023-11-11 18:07] LABS: Reflex Lactate? Y
[2023-11-11 19:21] LABS: Lactic Acid 1.8 mmol/L (0.4-1.9)
[2023-11-12] MEDS: Sertraline 50 MG Tablet PO ×2 (00:18→21:16)
[2023-11-12 03:50] VITALS: BP 127/64; PULSE 68; RESP 16; TEMP 36.5; O2SAT 98
--- NOTE | 2023-11-12 06:00 | EKG12_ITS ---
Test Reason : PRE OP Blood Pressure : / mmHG Vent. Rate : 066 BPM Atrial Rate : 066 BPM P-R Int : 202 ms QRS Dur : 086 ms QT Int : 394 ms P-R-T Axes : 005 007 022 degrees QTc Int : 413 ms Normal sinus rhythm Normal ECG When compared with ECG of 21-JAN-2022 08:40, No significant change was found Confirmed by ANAMARIA SHEA, NASEEM ([id number]), web content editor AMISHA PULIDO [id number]) on 11/16/2023 6:51:32 AM Referred By: ELIZABETH Confirmed By:RANJANA CONRAD MD
[2023-11-12] MEDS: 0.9% Normal Saline (1000mL) 1,000 ML 125 ML IV ×3 (06:56→19:42)
--- NOTE | 2023-11-12 07:01 | PCM.PN.GU ---
Subjective Subjective 63-year-old male has a very small stone in the distal right ureter very likely can pass it on his own this morning he has much less pain and is doing well. Will watch him for another 24 hours if he is still pain-free he can discharge home tomorrow. Objective Data Objective Data Vital Signs: Vital Signs Temp Pulse Resp BP Pulse Ox O2 Del Method 97.4 F L 70 16 118/64 94 Room Air 11/11/23 23:25 11/11/23 23:25 11/11/23 23:25 11/11/23 23:25 11/11/23 23:25 11/11/23 23:25 Oxygen Delivery Method Room Air Weight: 62.737 kg Body Mass Index (BMI) 19.3 Intake & Output: Intake and Output for Last 24 Hours 11/10/23 11/11/23 11/12/23 23:59 23:59 23:59 Intake Total 1300 / 1300 818.75 / 818.75 Balance 1300 / 1300 818.75 / 818.75 Lab / Micro Data 11/11/23 14:00 11/11/23 14:00 Labs: Laboratory Results - last 24 hr 11/11/23 14:00: WBC 7.9, RBC 3.24 L, Hgb 11.6 L, Hct 34.5 L, MCV 106.5 H, MCH 35.8 H, MCHC 33.6, RDW Std Deviation 70.9 H, RDW Coeff of [place] 17.9 H, Plt Count 151, MPV 9.4, Immature Gran % (Auto) 0.900, Neut % (Auto) 87.2 H, Lymph % (Auto) 3.9 L, [place] % (Auto) 7.9, Eos % (Auto) 0.0, Baso % (Auto) 0.1, Absolute Neuts (auto) 6.8, Absolute Lymphs (auto) 0.31 L, Nucleated RBC % 0, Differential Comment SCANNED, Anisocytosis 1+, PT 19.4 H, INR 1.6, Sodium 142, Potassium 3.9, Chloride 110 H, Carbon Dioxide 23.0, Anion Gap 9, BUN 24 H, Creatinine 1.26, Estim Creat Clear Calc 83.18, Est GFR (MDRD) Af Amer 74, Est GFR (MDRD) Non-Af 61, BUN/Creatinine Ratio 19.0, Glucose 131 H, Lactic Acid 2.6 H*, Calcium 8.8, Total Bilirubin 0.60, AST 14 L, ALT 29, Alkaline Phosphatase 94, Total Protein 6.2 L, Albumin 3.1 L, Globulin 3.1, Albumin/Globulin Ratio 1.0 11/11/23 15:22: Urine Color Yellow, Urine Clarity Sl. Cloudy, Urine pH 7.0, Ur Specific [place] 1.015, Urine Protein 30 H, Urine Glucose (UA) 50 H, Urine Ketones Negative, Urine Occult Blood 250 H, Urine Nitrite Negative, Urine Bilirubin Negative, Urine Urobilinogen 1 H, Ur Leukocyte Esterase 25 H, Urine RBC 50-100 SEEN, Urine WBC 0 SEEN, Ur Squamous Epith Cells 0-5 SEEN, Urine Bacteria 0 SEEN, Urine Mucus 0 SEEN 11/11/23 18:39: Lactic Acid 1.8 Radiography Diagnostic Testing: Radiology Impression Abdomen/Pelvis CT 11/11/23 13:38 IMPRESSION: Mild degree of right hydronephrosis due to a tiny calculus at the right ureterovesical junction. The remainder of the examination is unchanged. Electronically Signed: Al Beasley MD at 15:40 EST ,
--- NOTE | 2023-11-12 07:04 | DCINST_ITS ---
Discharge Instructions Diet Discharge Diet: No restrictions Activity Discharge Activity: Return to Normal Activity and May Not Drive (while taking narcotic pain medications.) Dressing / Incision Call your doctor if you observe: Fever of 101 or Higher Follow Up Care Please Follow Up With: Shilo Cortez MD When: Call [phone] for an appointment Test Results: Test results from this visit will be discussed in further detail at your follow- up appointment, if applicable. Discharge Plan Admission Admit Date/Time: 11/11/23 17:44 Primary Reason for Your Visit: kidney stone Attending Provider: Shilo Cortez Primary Care Provider: Hao Membreno Discharge Orders/Prescriptions Prescriptions: New oxycodone 5 mg tablet 5 mg PO Q6H PRN (Reason: pain) 7 Days Qty: 14 0RF Continued benazepril 20 mg tablet 20 mg PO DAILY Patient Comments: TAKE 1 TABLET BY MOUTH EVERY DAY sertraline 50 mg tablet 50 mg PO DAILY lidocaine-prilocaine 2.5-2.5 % cream 1 applic topical ONCE PRN (Reason: port access) 30 Days Qty: 30 2RF Hold Instructions: Ordered cholecalciferol (vitamin D3) 2,000 UNIT capsule 2,000 unit PO DAILY omeprazole 20 mg capsule,delayed release(DR/EC) 20 mg PO Q OTHER DAY PRN (Reason: GERD) warfarin [Jantoven] 3 mg tablet 3 mg PO DAILY furosemide 40 mg tablet 40 mg PO DAILY rosuvastatin [Crestor] 5 mg tablet 5 mg PO Q OTHER DAY Qty: 45 3RF aspirin [Enteric Coated Aspirin] 81 mg tablet,delayed release (DR/EC) 81 mg PO DAILY Qty: 90 3RF diltiazem HCl 300 mg capsule,extended release 24hr 300 mg PO DAILY Qty: 90 3RF diclofenac sodium 1 % gel See Rx Instructions .ROUTE .COMPLEX Qty: 100 2RF Dose Instruction: 2 G TOPICALLY TWICE A DAY APPLY TO HANDS AND FEET TWICE DAILY Rx Instructions: 2 G TOPICALLY TWICE A DAY APPLY TO HANDS AND FEET TWICE DAILY Referrals / Follow Up: Shilo Cortez MD [Med Staff - Active Staff] - Hao Membreno MD [Primary Care Provider] -
[2023-11-12] MEDS: dilTIAZem CD 300 MG Capsule PO (08:37)
[2023-11-12] MEDS: Lisinopril 20 MG Tablet PO (08:37)
[2023-11-12] MEDS: Furosemide 40 MG Tablet PO (08:37)
[2023-11-12 08:40] VITALS: BP 142/67; PULSE 73; RESP 16; TEMP 36.6; O2SAT 98
--- NOTE | 2023-11-12 15:52 | CASEMGMT ---
Met with patient to complete GREGG form. GREGG form explained to patient who voiced understanding and signed form. Original form placed in pt?s chart and copy provided to?patient. Jennifer Escobar, Discharge Planning Asst
[2023-11-12 15:55] VITALS: BP 138/71; PULSE 82; RESP 16; TEMP 36.8; O2SAT 96
[2023-11-12] MEDS: Rosuvastatin Calcium 5 MG Tablet PO (21:16)
[2023-11-12 21:17] VITALS: BP 125/65; PULSE 75; RESP 16; TEMP 36.4; O2SAT 96
[2023-11-13] MEDS: 0.9% Normal Saline (1000mL) 1,000 ML 125 ML IV (03:17)
[2023-11-13 03:18] VITALS: BP 133/67; PULSE 73; RESP 16; TEMP 36.4; O2SAT 100
[2023-11-13] MEDS: Ketorolac 15 MG/ML Vial IV (03:21)
--- NOTE | 2023-11-13 07:22 | PCM.DC.SUM ---
Providers Date of Admission: 11/11/23 Date of Discharge: 11/13/23 Primary Care Physician: Dr. Hao Membreno MD Reason For Visit: KIDNEY Diagnosis Discharge Diagnosis (1) Renal colic on right side: Status: Acute Code(s): N23 - Unspecified renal colic Plan: admit for severe intracable pain from kidney stone (2) Hydroureter, right: Status: Acute Code(s): N13.4 - Hydroureter Medications at Discharge Home Medications cholecalciferol (vitamin D3) 50 mcg (2,000 unit) capsule 2,000 unit PO DAILY supplement 06/16/19 furosemide 40 mg tablet 40 mg PO DAILY diuretic 06/16/19 benazepril 20 mg tablet 20 mg PO DAILY blood pressure 01/09/21 sertraline 50 mg tablet 50 mg PO DAILY depression 01/09/21 omeprazole 20 mg capsule,delayed release 20 mg PO Q OTHER DAY PRN GERD 10/25/21 rosuvastatin 5 mg tablet (Crestor) 5 mg PO Q OTHER DAY cholesterol #45 tabs 12/25/22 aspirin 81 mg tablet,delayed release (Enteric Coated Aspirin) 81 mg PO DAILY heart #90 tabs 01/11/23 diltiazem HCl 300 mg capsule,extended release 24 hr 300 mg PO DAILY heart #90 caps 04/30/23 lidocaine-prilocaine 2.5 %-2.5 % topical cream 1 applic topical ONCE PRN port access 30 days #30 grams 07/29/23 diclofenac sodium 1 % topical gel See Rx Instructions .Route .COMPLEX #100 grams 08/31/23 warfarin 3 mg tablet (Jantoven) 3 mg PO DAILY 11/11/23 oxycodone 5 mg tablet 5 mg PO Q6H PRN pain 7 days #14 tabs 11/12/23 Hospital Course Summary of Care Provided Hospital Course: Patient was admitted for a very small stone in the distal right ureter. Severe intractable pain was not able to go home from the ER he was admitted stay stay in the hospital for 48 hours pain resolved completely he now just has some mild chronic lower back pain. Stone was very small presumably had passed no more imaging was done I discharged him home today follow-up in my office in a few weeks Physical Exam Const alert and oriented x3 General Appearance: cooperative HEENT normocephalic, head/scalp atraumatic, EAC's normal and TM's normal bilaterally Eyes PERRL and EOMs intact bilaterally Pupil: sluggish Neck no lymphadenopathy, supple and no JVD General: trachea midline Lymph Lymphatic: no lymphadenopathy noted, lymphedema and lymphadenopathy Resp normal respiratory effort, normal air movement and clear to auscultation bilaterally Cardio regular rate, regular rhythm and peripheral pulses 2+ throughout GI soft to palpation, non-tender and non-distended Extremity normal capillary refill and no clubbing, cyanosis or edema General Extremity: no tenderness to palpation of joints or extremities Skin no rashes or lesions noted General Skin Exam: turgor normal Lesions: no lesions Rashes: no rashes Neuro CN's II-XII intact bilaterally Speech: speech normal Motor Exam: strength 5/5 throughout; Negative for general weakness Psych thought process normal, cooperative and affect normal Appearance: appropriate Weight / BMI Weight Weight: 62.737 kg Body Mass Index (BMI) 19.3 ABG / Lab / Microbiology Data 11/11/23 14:00 11/11/23 14:00 D/C Instructions Discharge Diet: No restrictions Call your doctor if you observe: Fever of 101 or Higher Please Follow Up With: Shilo Cortez MD When: Call [phone] for an appointment Meaningful Use Info Meaningful Use Diagnoses (Choose all that apply): None applicable Discharge Plan Admission Admit Date/Time: 11/12/23 15:02 Primary Reason for Your Visit: kidney stone Attending Provider: Shilo Cortez Primary Care Provider: Hao Membreno Discharge Orders/Prescriptions Prescriptions: New oxycodone 5 mg tablet 5 mg PO Q6H PRN (Reason: pain) 7 Days Qty: 14 0RF Continued benazepril 20 mg tablet 20 mg PO DAILY Patient Comments: TAKE 1 TABLET BY MOUTH EVERY DAY sertraline 50 mg tablet 50 mg PO DAILY lidocaine-prilocaine 2.5-2.5 % cream 1 applic topical ONCE PRN (Reason: port access) 30 Days Qty: 30 2RF Hold Instructions: Ordered cholecalciferol (vitamin D3) 2,000 UNIT capsule 2,000 unit PO DAILY omeprazole 20 mg capsule,delayed release(DR/EC) 20 mg PO Q OTHER DAY PRN (Reason: GERD) warfarin [Jantoven] 3 mg tablet 3 mg PO DAILY furosemide 40 mg tablet 40 mg PO DAILY rosuvastatin [Crestor] 5 mg tablet 5 mg PO Q OTHER DAY Qty: 45 3RF aspirin [Enteric Coated Aspirin] 81 mg tablet,delayed release (DR/EC) 81 mg PO DAILY Qty: 90 3RF diltiazem HCl 300 mg capsule,extended release 24hr 300 mg PO DAILY Qty: 90 3RF diclofenac sodium 1 % gel See Rx Instructions .ROUTE .COMPLEX Qty: 100 2RF Dose Instruction: 2 G TOPICALLY TWICE A DAY APPLY TO HANDS AND FEET TWICE DAILY Rx Instructions: 2 G TOPICALLY TWICE A DAY APPLY TO HANDS AND FEET TWICE DAILY Referrals / Follow Up: Shilo Cortez MD [Med Staff - Active Staff] - Hao Membreno MD [Primary Care Provider] -
[2023-11-13 08:00] VITALS: BP 149/79; PULSE 74; RESP 16; TEMP 36.6; O2SAT 98
[2023-11-13] MEDS: 0.9% Saline Lock 10 ML Syringe IV (08:17)
--- NOTE | 2023-11-13 08:44 | CASEMGMT ---
OLY CM to see pt for assessment, pt has been dc'd and left the building at this time.
== END 2023-11-13 08:35 | disposition home or self-care (01) | DRG 694 ==
LOC: ED 17:22 → MS3 18:33
PROVIDERS: Admitting Provider Urology; Emergency Provider Emergency Medicine; PCP Family Medicine; Visit Provider Urology
DX: N13.2 Hydronephrosis with renal and ureteral calculous obstruction (principal); N13.4 Hydroureter; E78.00 Pure hypercholesterolemia, unspecified; I10 Essential (primary) hypertension; I48.0 Paroxysmal atrial fibrillation; G47.33 Obstructive sleep apnea (adult) (pediatric); M54.16 Radiculopathy, lumbar region; N23 Unspecified renal colic; Z79.01 Long term (current) use 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s; Z79.82 Long term (current) use of aspirin; Z79.899 Other long term (current) drug therapy; Z86.16 Personal history of COVID-19; Z86.718 Personal history of other venous thrombosis and embolism; Z86.711 Personal history of pulmonary embolism; Z87.442 Personal history of urinary calculi
CPT/HCPCS: 36415; 36591; 72158; 74177; 80053; 81001; 83605; 85025; 85610; 93005; 99285; A9575; Q9967; A4216; J2405

== ENCOUNTER → 2023-11-20 | Outpatient (CLI) | payer MEDICARE, OTHER, SELFPAY ==
--- NOTE | 2023-11-20 08:48 | NM_ITS ---
CLINICAL: 63-year-old male with history of colorectal carcinoma. WHOLE BODY 99m Tc MDP RADIONUCLIDE BONE SCINTIGRAPHY COMPARISON: None available FINDINGS: Following the intravenous administration of 28.0 mCi of 99m Tc MDP, whole body bone images reveal: 1. Increased tracer uptake is noted in the acromioclavicular and sternoclavicular compartments of both shoulders, the wrist articulations bilaterally, right-left sacroiliac joints, the left knee. 2. The remaining skeletal structures are scintigraphically unremarkable with normal-appearing renal images and urinary bladder activity identified. Mild enhanced tracer uptake is noted in the lesser trochanteric aspect of the right proximal femur most consistent with periostitis or trochanteric bursitis. NM/Bone Scan Whole Body IMPRESSION: 1. Facilitated radiotracer identified in the bilateral shoulder and wrist articulations, the left and right sacroiliac joints and left knee is commensurate with degenerative arthritis. 2. There is no definitive scintigraphic evidence of diffuse axial skeletal metastatic disease on the current examination. Electronically Signed: Leon Staples DO at 9:36 EST ,
--- OUTSIDE RECORDS SUMMARY | 2023-11-20 09:14 | XMS RPT_ITS | CCD ---
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 Name Role Phone DEANNA ACKERMAN Unavailable Unavailable JT GUSTAFSON Unavailable Unavailable Kike SHEA, Jt Dodd Primary Care Provider Andre Quesada MD Unavailable JT STOKES Primary Care Unavailable ERNESTO AGUIAR Referring Unavailable KIKE, JT Dodd Primary Care Unavailable ERNESTO AGUIAR Referring Unavailable KIKE, JT Dodd Primary Care Unavailable KIKE, JT Dodd Primary Care Unavailable KIKE, JT Dodd Referring Unavailable ERNESTO AGUIAR Attending Unavailable ERNESTO AGUIAR Attending Unavailable SCHJOSY, JT Dodd Referring Unavailable KIKE, JT Dodd Primary Care Unavailable ERNESTO AGUIAR Referring Unavailable KIKE, JT Dodd Primary Care Unavailable ERNESTO AGUIAR Referring Unavailable SCHJOSY, JT Dodd Primary Care Unavailable KIKE, TJ Dodd Referring Unavailable KIKE, JT Dodd Primary Care Unavailable ERNESTO AGUIAR Attending Unavailable ERNESTO AGUIAR Referring Unavailable SCHJOSY, JT Dodd Primary Care Unavailable Medications Current Medications Medication Drug Class(es) [...] aspirin 81 mg delayed release oral tablet (16 sources) Platelet Aggregation Inhibitor, Nonsteroidal Anti-inflammatory Drug take 1 tablet by mouth once daily aspirin, enteric coated (ASPIRIN, ENTERIC COATED) 81 mg EC tablet Take 81 mg by mouth once daily. 0 Active Problems Active Problems Problem Classification Problem Date Documented Da te Episodic/Chronic Cancer of rectum and anus (8 sources) Malignant tumor of rectum; Translations: [Malignant neoplasm of rectum] Onset: 07-13-2023 07-13-2023 Chronic Past or Other Problems Problem Classification Problem Date Documented Da te Episodic/Chronic Anal and rectal conditions (1 source) Other specified diseases of anus and rectum; Translations: [Rectal mass] Onset: 07-09-2023 Episodic Other and unspecified benign neoplasm (16 sources) History of polyp of colon; Translations: [Personal history of colonic polyps] Onset: 06-30-2016 06-30-2016 Episodic Other and unspecified benign neoplasm (1 source) Personal history of colonic polyps; Translations: [Personal history of colonic polyps] Onset: 06-30-2016 Episodic Results Test Name Value Interpretation Reference Range Facil ity Vital Signs Date Time Vital Sign Value Performing Clinician Faci lity 11-17-2023 07:50-0500 Body height 180.3 cm Ernesto Aguiar MD Work Phone: [facility] 11-17-2023 07:50-0500 Body weight 137 kg Ernesto Aguiar MD Work Phone: [facility] 08-04-2023 12:21-0500 Body height 180.3 cm Ernesto Aguiar MD Work Phone: [facility] 08-04-2023 12:21-0500 Body weight 129.73 kg Ernesto Aguiar MD Work Phone: [facility] Encounters Encounter Date Encounter Type Care Provider Facility Start: 11-18-2023 Telephone encounter Maryann Rothman ) D[facility] Colorectal Surgery Start: 11-17-2023 End: 11-17-2023 ambulatory ERNESTO AGUIAR Facility:[facility] Start: 11-17-2023 End: 11-17-2023 Patient encounter procedure Ernesto Aguiar MD Work Phone: Colorectal Surgery Procedures Date Procedure Procedure Detail Performing Clinician Start: 11-17-2023 Sigmoidoscopy flx dx w/collj spec br/wa if pfrmd [facility] Provider Start: 08-04-2023 Sigmoidoscopy flx dx w/collj spec [...] DTaP,Tdap,Td Vaccine (2 - Td or Tdap) [facility] Start: 11-16-2028 Screening for malignant neoplasm of colon Sigmoidoscopy [facility] Start: 08-04-2028 Screening for malignant neoplasm of colon Sigmoidoscopy [facility] Start: 08-04-2028 Sigmoidoscopy Sigmoidoscopy [facility] Start: 05-12-2028 SIGMOIDOSCOPY SIGMOIDOSCOPY [facility] Start: 11-18-2023 Screening for malignant neoplasm of colon Colorectal Cancer Screening [facility] Start: 10-28-2023 End: 01-27-2024 Carcinoembryonic Ag [Mass/volume] in Serum or Plasma CEA BLD Lab Routine Malignant neoplasm of rectum (HCC) Expected: 10/28/2023, Expires: 01/27/2024 [facility] Work Phone: Immunizations Immunization Date Immunization Notes Care Provider Fa cility 08-04-2022 influenza virus vacc ine, unspecified formulation Kesha Quinn RN [facility] Payers Date Payer Category Payer Medicare [id number] 2023 Medicare MEDICARE MEDICAR E A AND B [id number] 2023-Present [phone] [place] [address] Medicare [id number] 2023 Medicare [id number] 2022 Private Health Insurance [id number] 2022 Private Health Insurance [id number] 2017 Unknown [id number] Social History Date Type Detail Facility Start: 05-12-2023 Tobacco smoking stat us NHIS Never smoked tobacco [facility] Start: 05-12-2023 Tobacco use and exposure Smoke less tobacco non-user [facility] Start: 05-12-2023 End: 11-17-2023 Alcohol intake Current drinker of alcohol (finding) [facility] Start: 05-12-2023 End: 11-17-2023 History of Social function [facility] Start: 05-12-2023 End: 11-17-2023 Tobacco use panel [facility] National Score (1-10 0), lower number is lower risk 54 [facility] Start: 1960 Sex Assigned At Male C [facility] Start: 05-11-2023 Gender identity Identifies as male gender (finding) [facility] Start: 05-11-2023 Sexual orientation Heterosexual (fin ding) [facility] Clinical Notes 05-25-2023 to 11-18-2023 Telephone Encounter - Maryann Maier RN - 11/18/2023 8:13 AM Jon Barrientos MD - 11/17/2023 8:15 AM Alia Mejia RT(R) - 11/04/2023 1:00 PM Ernesto Trujillo MD - 08/04/2023 1:00 PM EST Note Date & Type Note Facility 11-18-2023 Note HNO ID: [id number] Author: ERNESTO AGUIAR MD Service: ? Author Type: Physician Type: Progress Notes Filed: 11/18/2023 09:41 Note Text: Rectal Cancer Tumor Board [id number] Discussion Note Date of conference: 11/18/2023 Date of diagnosis: 05/05/2023 Pre-treatment clinical stage: [id number]. Type of neoadjuvant therapy completed: Long course chemoradiotherapy followed by consolidation chemotherapy (CORKY) Neoadjuvant therapy date of completion: 11/04/2023 Pre-treatment CEA level: 1.8 Current CEA level: CEA (ng/mL) Date Value 11/04/2023 2.8 Treatment response on digital rectal examination and flexible sigmoidoscopy: Date: 11/17/2023 Complete response Post treatment MRI: Date: 11/04/2023 mrTR (this was addended in the chart) MRI performed at: [facility]. Relation to peritoneal reflection: Below. Tumor location in the rectum: Lower. Tumor height from anal verge: (#) cm. 2.9. Relation to sphincter: Sphincter abutment. Mesorectal lymph nodes: No. Extra-mesorectal lymph nodes: No. Other structures involved: No. Circumferential resection margin: Not threatened. MRI Stage: T2 N0 Tumor deposit: No Mucinous: Yes Other Imaging Reviewed: NA Metastatic disease present:No Overall clinical assessment of treatment response: Near-complete response Tumor board discussion and recommendation: Active surveillance (Watch AND Wait) Discussion: Good endoscopic and radiologic response. Clinical Trial Candidate: No Disciplines present: Colorectal Surgery, Medical Oncology, Radiation Oncology, Radiology and Anatomic Pathology This is the summary of the general discussion provided at tumor board conference. The final recommendations will be made by the primary health care team and the patient after discussing the benefits, risks and alternatives to the various treatment options. [facility] 11-18-2023 Miscellaneous Notes Called and spoke with patient Advised of watch and wait recommendations from TB Scheduled three month follow up with marta in February documented in this encounter [facility] 11-17-2023 Note HNO ID: [id number] Author: ERNESTO AGUIAR MD Service: ? Author Type: Fellow Type: Progress Notes Filed: 11/17/2023 08:58 Note Text: Attestation signed by Ernesto Aguiar MD at 11/17/2023 8:58 AM [facility] STAFF PHYSICIAN NOTE OF PERSONAL INVOLVEMENT IN [...] 63 year old male who presents with history of rectal cancer. Done with CORKY and no sign of disease. Scope with no sign of tumor PLAN: An extensive discussion was had with the patient and family regarding the treatment of rectal cancer as a multidisciplinary approach using radiation, chemotherapy, and/or surgery. In a subset of cases, there will be a clinical response to chemoradiation such that there is no grossly remaining detectable tumor by physical exam, imaging, and endoscopy. In those select circumstances, deferral of surgery is a treatment option, allowing for rectal preservation and avoidance of an ileostomy or colostomy. In these cases, approximately 80% of patients will have a sustained clinical response and not require surgery. The patient understands that if we proceeded with this option, there will be an active surveillance protocol to help detect any signs of recurrence. Any evidence or suspicion of recurrent disease will require additional treatments including likely surgery. We also discussed that if there is local recurrence, approximately 15% of these cases may not be cured by surgery. The patient understands and wishes to proceed with this plan. This multidisciplinary plan will be discussed at the Rectal Cancer Multidisciplinary Conference. Plan of care discussed with Patient and family CARE COORDINATION: Present at MDT as above SIGNATURE: Ernesto Aguiar MD DATE of SERVICE: November 17, 2023 TIME of SERVICE: 8:57 AM COLORECTAL SURGERY Follow-up November 08, 2023 Chief complaint: rectal cancer HPI: Rectal Cancer Oncologist: Dr. Quesada ([place]) Maxime Gunter is a 63-year-old year old male with a history of pAF, VTE (warfarin), CORRINA, HTN, GERD and cT3 N1 M0 locally advanced rectal adenocarcinoma. He completed chemoradiation 06/01/23-07/07/23. He saw Dr Aguiar in July 2023 for intermediate staging and had partial response to treatment, so recommended to proceed with CORKY. He completed CORKY on 10/26/2023. MRI rectum on 11-04-23 showed complete/near complete response to treatment. His mesorectal lymph nodes also showed resolution on MRI. He also had CT scans done locally. He is getting scope today. No local or abdominal symptoms. He has gained weight 20 lbs over last few months. No blood in bowel movements. Sometimes stinging pain on bowel movement. No abdominal pain. Endorses worsening of chronic back pain, getting work up with his Pain physician. Last full colonoscopy in May 2023. 11/04/23 CEA 2.8 11/04/2023 MRI rectum IMPRESSION: Resolution of prior viable tumor with new scar and mucin. Resolution of prior left mesorectal tumor deposit. Decrease in size/resolution of prior left lateral mesorectal nodes now within normal limits of size. Stable indeterminate 0.7 cm left sacral lesion. Since 07/13/2023, post treatment primary tumor assessment: Complete/near complete response. mrTRG: Grade 2 - Good response Suspicious Mesorectal lymph nodes: No. Suspicious Extramesorectal lymph nodes: No. 08/04/23 flex sig, Findings: The digital rectal exam revealed a mobile (not fixed) rectal mass palpated at about 4cm from the anal verge. The mass was non-circumferential and located predominantly at the left bowel wall. A non-obstructing mass was found in the rectum. The mass was non-circumferential. No bleeding was present. Smaller compared to prior - located left lateral. Impression: - Residual rectal mass about 4 cm from the anal verge - left lateral. - No specimens collected. 07/27/23 CT Chest IMPRESSION: No CT evidence of acute abnormality. No findings of metastatic disease in the thorax. 07/27/23 CT ABD/PEL IMPRESSION: No metastatic disease in the abdomen or pelvis. 07/13/23 MRI RECTUM IMPRESSION: PARTIAL RESPONSE, WITH DECREASE IN INTRALUMINAL TUMOR THICKNESS AND DECREASED IZE OF MESORECTAL FAT TUMOR DEPOSIT. TWO SUSPICIOUS LYMPH NODES ARE AGAIN NOTED. 0.7 CM ENHANCING FOCUS IN THE LEFT SACRUM IS INDETERMINATE. CLOSE ATTENTION ON FOLLOW-UP IS RECOMMENDED. Since 05/20/2023, post treatment primary tumor assessment: Incomplete response (likely residual tumor). mrTRG: Grade 4 - Partial response Suspicious Mesorecta (more content not included)... [facility] 11-17-2023 History of Presen t illness Narrative COLORECTAL SURGERY Follow-up November 08, 2023 Chief complaint: rectal cancer HPI: Rectal Cancer Oncologist: Dr. Quesada ([place]) Maxime Gunter is a 63-year-old year old male with a history of pAF, VTE (warfarin), CORRINA, HTN, GERD and cT3 N1 M0 locally advanced rectal adenocarcinoma. He completed chemoradiation 06/01/23-07/07/23. He saw Dr Aguiar in July 2023 for intermediate staging and had partial response to treatment, so recommended to proceed with CORKY. He completed CORKY on 10/26/2023. MRI rectum on 11-04-23 showed complete/near complete response to treatment. His mesorectal lymph nodes also showed resolution on MRI. He also had CT scans done locally. He is getting scope today. No local or abdominal symptoms. He has gained weight 20 lbs over last few months. No blood in bowel movements. Sometimes stinging pain on bowel movement. No abdominal pain. Endorses worsening of chronic back pain, getting work up with his Pain physician. Last full colonoscopy in May 2023. 11/04/23 CEA 2.8 11/04/2023 MRI rectum IMPRESSION: Resolution of prior viable tumor with new scar and mucin. Resolution of prior left mesorectal tumor deposit. Decrease in size/resolution of prior left lateral mesorectal nodes now within normal limits of size. Stable indeterminate 0.7 cm left sacral lesion. Since 07/13/2023, post treatment primary tumor assessment: Complete/near complete response. mrTRG: Grade 2 - Good response Suspicious Mesorectal lymph nodes: No. Suspicious Extramesorectal lymph nodes: No. 08/04/23 flex sig, Findings: The digital rectal exam revealed a mobile (not fixed) rectal mass palpated at about 4cm from the anal verge. The mass was non-circumferential and located predominantly at the left bowel wall. A non-obstructing mass was found in the rectum. The mass was non-circumferential. No bleeding was present. Smaller compared to prior - located left lateral. Impression: - Residual rectal mass about 4 cm from the anal verge - left lateral. - No specimens collected. 07/27/23 CT Chest IMPRESSION: No CT evidence of acute abnormality. No findings of metastatic disease in the thorax. 07/27/23 CT ABD/PEL IMPRESSION: No metastatic disease in the abdomen or pelvis. 07/13/23 MRI RECTUM IMPRESSION: PARTIAL RESPONSE, WITH DECREASE IN INTRALUMINAL TUMOR THICKNESS AND DECREASED IZE OF MESORECTAL FAT TUMOR DEPOSIT. TWO SUSPICIOUS LYMPH NODES ARE AGAIN NOTED. 0.7 CM ENHANCING FOCUS IN THE LEFT SACRUM IS INDETERMINATE. CLOSE ATTENTION ON FOLLOW-UP IS RECOMMENDED. Since 05/20/2023, post treatment primary tumor assessment: Incomplete response (likely residual tumor). mrTRG: Grade 4 - Partial response Suspicious Mesorectal lymph nodes: Yes. Suspicious Extramesorectal lymph nodes: No. 07/09/23 CEA 1.8 Physical Exam: Ht 180.3 cm (5' 11 ) Wt (!) 137 kg (302 lb 0.5 oz) BMI 42.12 kg/m General - awake, alert, no acute distress Abdominal - well healed skin incision Anorectal: Perianal skin is intact. No erythema, induration or excoriation. No fissure, fistula or external hemorrhoids. Digital Rectal Exam: Anus: closed Resting tone: NORMAL Squeeze tone: NORMAL Toe Former Stitchdowns present: Yes, Flexible sigmoidoscopy: Procedure: The patient was placed in left lateral position. After digital exam with a lubricated finger, the scope was easily inserted to 15 cm. Findings: Scope advanced to upper rectum Evidence of complete endoscopic response with scar and telegiectasia at left lateral region below first valve approx 2 cm above anal verge with no other suspicious lesions seen. No specimens collected. Assessment Medical Decision Making: Assessment & Diagnosis: 63-year-old year old male with a history of pAF, VTE (warfarin), CORRINA, HTN, GERD and cT3 N1 M0 locally advanced rectal adenocarcinoma. He completed chemoradiation 06/01/23-07/07/23 and CORKY on 10/26/2023. Complete endoscopic response on endoscopic surveillance and mTRG2 on MRI. Data Reviewed: Tests & Documents Reviewed/ordered: Review of prior notes from clinic visit, EHR Review of Imaging: MRI Abdomen, MRI Pelvis Review of Labs: CBC, BMP, CEA I have independently interpreted: MRI Pelvis I have discussed Maxime Gunter's treatment plan and/or results with patient and family. . Treatment plan: Discuss in tumor board tomorrow. 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 Full colonoscopy in May 2024, MRI In May 2024 CT C/A/P in April 2024 F/up exam in three months. F/up work up for increasing back pain with primary ordered bone scan and MRI back. Risk of morbidity, mortality and/or complications of treatment plan: moderate Associated attestation - Ernesto Aguiar MD - 11/17/2023 8:58 AM EST [facility] STAFF PHYSICIAN NOTE OF PERSONAL INVOLVEMENT IN [...] 63 year old male who presents with history of rectal cancer. Done with CORKY and no sign of disease. Scope with no sign of tumor PLAN: An extensive discussion was had with the patient and family regarding the treatment of rectal cancer as a multidisciplinary approach using radiation, chemotherapy, and/or surgery. In a subset of cases, there will be a clinical response to chemoradiation such that there is no grossly remaining detectable tumor by physical exam, imaging, and endoscopy. In those select circumstances, deferral of surgery is a treatment option, allowing for rectal preservation and avoidance of an ileostomy or colostomy. In these cases, approximately 80% of patients will have a sustained clinical response and not require surgery. The patient understands that if we proceeded with this option, there will be an active surveillance protocol to help detect any signs of recurrence. Any evidence or suspicion of recurrent disease will require additional treatments including likely surgery. We also discussed that if there is local recurrence, approximately 15% of these cases may not be cured by surgery. The patient understands and wishes to proceed with this plan. This multidisciplinary plan will be discussed at the Rectal Cancer Multidisciplinary Conference. Plan of care discussed with Patient and family CARE COORDINATION: Present at MDT as above SIGNATURE: Ernesto Aguiar MD DATE of SERVICE: November 17, 2023 TIME of SERVICE: 8:57 AM documented in this encounter [facility] 11-04-2023 Note HNO ID: [id number] Author: ALIA MULLINS RT(R) Service: ? Author Type: Technologist Type: Progress Notes Filed: 11/04/2023 12:50 Note Text: Radiology Service Progress Note PATIENT NAME: Maxime Gunter DATE OF SERVICE: November 04, 2023 TIME: 12:50 PM PATIENT IDENTITY VERIFICATION COMPLETED USING TWO (2) IDENTIFIERS: Name and Date of confirmed by patient verbally. FALL SCREENING: Has the patient had 2 falls in the last year or 1 fall with injury or currently using an Ambulatory Assistive Device (Walker, Cane, Wheelchair, Crutches, etc.)? No PATIENT GENDER DATA: Male PATIENT RELEVANT IMPLANT DATA REVIEWED: Yes PATIENT PRESENTS WITH AN IMPLANTABLE OR ATTACHED CLERICAL DENTIST ASSISTANT: No RADIOLOGY DEPARTMENT: MR; Exam(s) Completed: Body: Rectal PERIPHERAL IV DATA: Site assessment: Clean,Dry and Intact, Site disposition Discontinued SIGNED BY: RT Henrique(R) November 04, 2023 12:50 PM [facility] 11-04-2023 History of Presen t illness Narrative Radiology Service Progress Note PATIENT NAME: Maxime Gunter DATE OF SERVICE: November 04, 2023 TIME: 12:50 PM PATIENT IDENTITY VERIFICATION COMPLETED USING TWO (2) IDENTIFIERS: Name and Date of confirmed by patient verbally. FALL SCREENING: Has the patient had 2 falls in the last year or 1 fall with injury or currently using an Ambulatory Assistive Device (Walker, Cane, Wheelchair, Crutches, etc.)? No PATIENT GENDER DATA: Male PATIENT RELEVANT IMPLANT DATA REVIEWED: Yes PATIENT PRESENTS WITH AN IMPLANTABLE OR ATTACHED CLERICAL DENTIST ASSISTANT: No RADIOLOGY DEPARTMENT: MR; Exam(s) Completed: Body: Rectal PERIPHERAL IV DATA: Site assessment: Clean,Dry and Intact, Site disposition Discontinued SIGNED BY: RT Henrique(Cassius) November 04, 2023 12:50 PM documented in this encounter [facility] 11-04-2023 Note HNO ID: [id number] Author: YON JIMENEZ RN Service: ? Author Type: Registered Nurse Type: Progress Notes Filed: 11/04/2023 12:46 Note Text: Patient is here for IVAD port flush/blood draw per Nursing Cooks protocol. IVAD is located in left upper chest. Site cleansed with Chloraprep IVAD accessed with a #20 gauge 3/4 non-coring Gripper needle Flush with 5cc's Normal Saline. Blood Return: Good. 10 cc's blood aspirated and discarded. Blood drawn for CEA. Flushed with: 20 ml Normal Saline. Non-coring needle left intact for further therapy. Opsite applied to puncture site. Site negative for redness, edema or tenderness. Patient tolerated procedure well. [facility] 11-02-2023 Miscellaneous Notes Pt given information below. Left message for patient to return call. When he calls, please advise that he is to report at 12:45 to the [facility] center for port access for his MRI appointment on 11/04. Zuleyma Pinto Pt would like to use port for appt on 11/04/23 @ 1pm MRI .. Please call pt to confirm time documented in this encounter [facility] 10-28-2023 Miscellaneous Notes Called and spoke with Patient completed CORKY on 10.26.[address] scan done locally Needs MRI rectum, cea, and scope Patient prefers MRI and cea locally - asked schedulers to reach out Scope jules 11/17/23 returning nurse's call from yesterday. documented in this encounter [facility] 10-27-2023 Miscellaneous Notes Called patient number [...] the orders placed for the repeat imaging. [phone] documented in this encounter [facility] 08-04-2023 Note HNO ID: [id number] Author: Ernesto Aguiar MD Service: ? Author [...] closed Resting tone: NORMAL Squeeze tone: NORMAL Toe Former Stitchdowns present: Yes, Miranda Matt Palpable mass at [...] morbidity, mortality and/or complications of treatment plan: [facility] STAFF PHYSICIAN NOTE OF PERSONAL INVOLVEMENT IN [...] August 04, 2023 (more content not included)... [facility] 08-04-2023 History of Presen t illness [...] closed Resting tone: NORMAL Squeeze tone: NORMAL Toe Former Stitchdowns present: Yes, Miranda Matt Palpable mass at [...] mortality and/or complications of treatment plan: moderate [facility] STAFF PHYSICIAN NOTE OF PERSONAL INVOLVEMENT IN [...] SERVICE: 12:54 PM documented in this encounter [facility] 07-27-2023 Miscellaneous Notes Called and let [...] 07/27/2023 4:21 PM documented in this encounter [facility] 07-27-2023 Note HNO ID: [id number] Author: Zenaida Garland RT(R) Service: ? Author Type: Flower Planter Type: Progress Notes Filed: 07/27/2023 4:09 PM [...] DATE: July 27, 2023 TIME: 4:08 PM [facility] 07-27-2023 History of Presen t illness [...] TIME: 4:08 PM documented in this encounter [facility] 07-15-2023 Miscellaneous Notes SPECIALTY CARE COORDINATION FOLLOW-UP NOTE Spoke with patient. Advised that MRI was done on 07/13 so additional MRI scheduled on 08/[address] Aguiar will see patient on 08/04 in office for a flex sig and he will be presented at MDT for formal recommendations Kesha Quinn RN July 15, 2023 documented in this encounter [facility] 07-13-2023 Note HNO ID: [id number] Author: Alia Mullins RT(Cassius) Service: ? Author Type: Technologist Type: [...] DATE: July 13, 2023 TIME: 9:12 AM [facility] 07-13-2023 History of Presen t illness [...] TIME: 9:12 AM [facility] [facility] 07-08-2023 Miscellaneous Notes I spoke with the patient's and advised that is preferred that the imaging is done here. If they wished to have them locally, we would need a fax order to send the orders. A follow up call was made, and a detailed message was left with these details as well. [phone] documented in this encounter [facility] 07-03-2023 Miscellaneous Notes SPECIALTY CARE COORDINATION [...] July 03, 2023 documented in this encounter [facility] 05-29-2023 Note HNO ID: [id number] Author: Ernesto Aguiar MD Service: ? Author Type: Physician Type: Progress Notes Filed: 05/29/2023 12:25 PM Note Text: Rectal Cancer Tumor Board Initial Presentation Date of conference: 05/29/2023. Date of Diagnosis: 05/05/2023. 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 Performing Lab Diagnostic interpretation performed at [facility], [address] [place] [id number] [facility]# [id number] Imaging Reviewed: MRI of pelvis: 05/20/2023. MRI [...] CEA results: Pending (ordered) Pre-treatment clinical stage: [id number]. Tumor board discussion and recommendation: Neoadjuvant therapy [...] and alternatives to the various treatment options. [facility] 05-25-2023 Miscellaneous Notes SPECIALTY CARE COORDINATION FOLLOW-UP NOTE Informed that we received outside imaging, he will be presented at [facility] on Thursday and will received official recommendation from Dr. Aguiar. Patient states that current plan is to start chemo and radiation for 27 days 06/01. Kesha Quinn RN May 25, 2023 ----- Message from Mary Kay Herron [facility] sent at 05/25/2023 10:35 AM EDT ----- Regarding: Questions/update Please call the patients Myriam to discuss some additional questions about the plan. She report he saw a local oncologist Dr. Quesada and feels that a chemo treatment preference was discussed in the office with Dr. Aguiar. [phone] documented in this encounter [facility] documented in this encounter [facility] note* Diagnosis Malignant neoplasm of rectum (HCC) Malignant neoplasm of rectum documented in this encounter [facility] note* Diagnosis Rectal cancer (HCC)- Primary Malignant neoplasm of rectum documented in this encounter [facility] note* Diagnosis Malignant neoplasm of rectum (HCC)- Primary Malignant neoplasm of rectum documented in this encounter [facility] note* Diagnosis Malignant neoplasm of rectum (HCC) Malignant neoplasm of rectum documented in this encounter [facility] note* Diagnosis Rectal cancer (HCC)- Primary Malignant neoplasm of rectum documented in this encounter [facility] note* Diagnosis Rectal cancer (HCC)- Primary Malignant neoplasm of rectum documented in this encounter [facility] Summary Purpose Family History No Family History Records FoundNo Family History Records Found Advance Directives No Advanced Directives Records FoundNo Advanced Directives Records Found Reason for Referral Specialty Diagnoses / Procedures Referred By Contac t Referred To Contact MR IMAGING Diagnoses Malignant neoplasm of rectum (HCC) Procedures MRI RECTUM WO/W IVCON MRI PELVIS W/O & W/CONTRAST MATERIAL Ernesto Aguiar MD [address] [place] [address] Mr Imaging [place] [address] Referral ID Status Reason Start Date Expiration Date V isits Requested Visits Authorized [id number] Closed Auto-Generate d Referral 07/09/2023 09/13/2023 1 1 Specialty Diagnoses / Procedures Referred By Contac t Referred To Contact CT IMAGING Diagnoses Malignant neoplasm of rectum (HCC) Procedures CT ABD/PEL W IVCON CT ABD & PELVIS W/CONTRAST Ernesto Aguiar MD [address] [place] [address] Ct [facility] [place] [address] Referral ID Status Reason Start Date Expiration Date V isits Requested Visits Authorized [id number] Closed Auto-Generate d Referral 07/09/2023 09/13/2023 1 1 Specialty Diagnoses / Procedures Referred By Contac t Referred To Contact CT IMAGING Diagnoses Malignant neoplasm of rectum (HCC) Procedures CT CHEST W IVCON DIAGNOSTIC COMPUTED TOMOGRAPHY THORAX W/CONTRAST Ernesto Aguiar MD [address] [place] [address] [place] [address] Referral ID Status Reason Start Date Expiration Date V isits Requested Visits Authorized [id number] Closed Auto-Generate d Referral 07/09/2023 09/13/2023 1 1 Referral ID Status Reason Start Date Expiration Date Visits Requested Visits Authorized [id number] Pending Review Auto-Generat ed Referral 10/28/2023 11/26/2024 1 1 Additional Source Comments (unrecognized sect ion and content) No Status Records FoundNo Status Records Found INFORMATION SOURCE (unrecogn ized section and content) DATE CREATED AUTHOR AUTHOR'S ORGANIZ ATION 11/18/2023 [facility] Source Comments (unrecognize d section and content) In the event this informatio n is protected by the Federal Confidentiality of Alcohol and Drug Abuse Patient Records regulations: The Federal rules restrict any use of the information to criminally investigate or prosecute any alcohol or drug abuse patient.[facility] the event this information is protected by the Federal Confidentiality of Alcohol and Drug Abuse Patient Records regulations: The Federal rules restrict any use of the information to criminally investigate or prosecute any alcohol or drug abuse patient.[facility] the event this information is protected by the Federal Confidentiality of Alcohol and Drug Abuse Patient Records regulations: The Federal rules restrict any use of the information to criminally investigate or prosecute any alcohol or drug abuse patient.[facility] the event this information is protected by the Federal Confidentiality of Alcohol and Drug Abuse Patient Records regulations: The Federal rules restrict any use of the information to criminally investigate or prosecute any alcohol or drug abuse patient.[facility] the event this information is protected by the Federal Confidentiality of Alcohol and Drug Abuse Patient Records regulations: The Federal rules restrict any use of the information to criminally investigate or prosecute any alcohol or drug abuse patient.[facility] the event this information is protected by the Federal Confidentiality of Alcohol and Drug Abuse Patient Records regulations: The Federal rules restrict any use of the information to criminally investigate or prosecute any alcohol or drug abuse patient.[facility] the event this information is protected by the Federal Confidentiality of Alcohol and Drug Abuse Patient Records regulations: The Federal rules restrict any use of the information to criminally investigate or prosecute any alcohol or drug abuse patient.[facility] the event this information is protected by the Federal Confidentiality of Alcohol and Drug Abuse Patient Records regulations: The Federal rules restrict any use of the information to criminally investigate or prosecute any alcohol or drug abuse patient.[facility] the event this information is protected by the Federal Confidentiality of Alcohol and Drug Abuse Patient Records regulations: The Federal rules restrict any use of the information to criminally investigate or prosecute any alcohol or drug abuse patient.[facility] the event this information is protected by the Federal Confidentiality of Alcohol and Drug Abuse Patient Records regulations: The Federal rules restrict any use of the information to criminally investigate or prosecute any alcohol or drug abuse patient.[facility] the event this information is protected by the Federal Confidentiality of Alcohol and Drug Abuse Patient Records regulations: The Federal rules restrict any use of the information to criminally investigate or prosecute any alcohol or drug abuse patient.[facility] the event this information is protected by the Federal Confidentiality of Alcohol and Drug Abuse Patient Records regulations: The Federal rules restrict any use of the information to criminally investigate or prosecute any alcohol or drug abuse patient.[facility] the event this information is protected by the Federal Confidentiality of Alcohol and Drug Abuse Patient Records regulations: The Federal rules restrict any use of the information to criminally investigate or prosecute any alcohol or drug abuse patient.[facility] the event this information is protected by the Federal Confidentiality of Alcohol and Drug Abuse Patient Records regulations: The Federal rules restrict any use of the information to criminally investigate or prosecute any alcohol or drug abuse patient.[facility] the event this information is protected by the Federal Confidentiality of Alcohol and Drug Abuse Patient Records regulations: The Federal rules restrict any use of the information to criminally investigate or prosecute any alcohol or drug abuse patient.[facility] the event this information is protected by the Federal Confidentiality of Alcohol and Drug Abuse Patient Records regulations: The Federal rules restrict any use of the information to criminally investigate or prosecute any alcohol or drug abuse patient.[facility] Care Teams (unrecognized sec tion and content) [employer] Relationship Specialty Start Date End Date Jt Stokes MD [address] [facility] [address] [place] [address] PCP - General Family Medicine 07/21/19 Andre Quesada MD [address] [place] [address] 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 Relationship Specialty Start Date End Date Jt Stokes MD [address] [place], [place] [address] PCP - General Family Medicine 07/21/19 Andre Quesada MD [address] [place] [address] 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 Relationship Specialty Start Date End Date Jt Stokes MD [address] [place] [address] PCP - General Family Medicine 07/21/19 Andre Quesada MD [address] [place] [address] 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 Relationship Specialty Start Date End Date Jt Stokes MD [address] [facility] [address] [place] [address] PCP - General Family Medicine 07/21/19 Andre Quesada MD [address] [place] [address] 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 Relationship Specialty Start Date End Date Jt Stokes MD [address] [facility] [address] [place] [address] PCP - General Family Medicine 07/21/19 Andre Quesada MD [address] [place] [address] 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 Relationship Specialty Start Date End Date Jt Stokes MD [address] [facility] [address] [place] [address] PCP - General Family Medicine 07/21/19 Andre Quesada MD [address] [place] [address] 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 Relationship Specialty Start Date End Date Jt Stokes MD [address] [facility] [address] [place] [address] PCP - General Family Medicine 07/21/19 [place] [address] [place] [address] [address] [place] [address] 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 Relationship Specialty Start Date End Date Jt Stokes MD [address] [facility] [address] [place] [address] PCP - General Family Medicine 07/21/19 [place] [address] [place] [address] [address] [place] [address] Oncology 05/25/23 Reason for Visit (unrecogniz ed section and content) Reason Comments Patient Question Reason Comments Care Coordination Specialty Diagnoses / Procedures Referred By Iggy Referred To Contact MR IMAGING Diagnoses Malignant neoplasm of rectum (HCC) Procedures MRI RECTUM WO/W IVCON MRI PELVIS W/O & W/CONTRAST MATERIAL Ernesto Aguiar MD [address] [place] [address] Mr Imaging [place] [address] Referral ID Status Reason Start Date Expiration Date V isits Requested Visits Authorized [id number] Closed Auto-Generate d Referral 07/09/2023 09/13/2023 [address] chest/abd/pel res ults Reason Comments Radiology CT Specialty Diagnoses / Procedures Referred By Iggy t Referred To Contact CT IMAGING Diagnoses Malignant neoplasm of rectum (HCC) Procedures CT ABD/PEL W IVCON CT ABD & PELVIS W/CONTRAST Ernesto Aguiar MD [address] [place] [id number] [facility] [place] [address] Referral ID Status Reason Start Date Expiration Date V isits Requested Visits Authorized [id number] Closed Auto-Generate d Referral 07/09/2023 09/13/2023 1 1 Reason Comments Established Patient Specialty Diagnoses / Procedures Referred By Iggy t Referred To Contact Colon and Rectal Surgery / COLORECTAL SURGERY Diagnoses Discussing imaging from 07/29 rectal cancer/flex sig - completed chemoradiation on 07/07 Procedures OFFICE/OUTPATIENT ESTABLISHED MOD MDM 30-39 MIN EST DDI PATIENT Jt Stokes MD [address] [place] [address] Ernesto Aguiar MD [address] [place] [address] Referral ID Status Reason Start Date Expiration Date Visits Re quested Visits Authorized [id number] Closed 08/04/2023 09/13/2023 1 1 Reason Comments Patient Update Reason Comments Appointment Referral ID Status Reason Start Date Expiration Date V isits Requested Visits Authorized [id number] Closed Auto-Generate d Referral 10/28/2023 11/26/2024 1 1 FOR RECORDS PERTAINING TO PATIENTS [...] BE BASED ON THE PRIMARY CLINICAL RECORDS. [employer] provides no warranty or guarantee of the accuracy or completeness of information in this document.
== END | disposition home or self-care (01) ==
LOC: NM 08:46
PROVIDERS: PCP Family Medicine; Referring Provider Orthopaedic Surgery; Visit Provider Orthopaedic Surgery
DX: C20 Malignant neoplasm of rectum (principal)
CPT/HCPCS: 78306; A9503

== ENCOUNTER 2023-12-03 20:27 | Emergency (ER) | payer MEDICARE, OTHER, SELFPAY ==
[2023-12-03 20:28] VITALS: BP 161/81; PULSE 76; RESP 16; TEMP 36.6; O2SAT 96; BMI 41.6
--- NOTE | 2023-12-03 21:21 | US_ITS ---
INDICATION: RT LOWER LEG REDNESS AND SWELLING EXAMINATION: Ultrasound US Venous Duplex LE Unilat / Limited TECHNIQUE: Robert scale, pulse wave, and color flow Doppler imaging was performed of the lower extremity venous system. The right greater saphenous, common femoral, femoral, and popliteal veins were interrogated. COMPARISON: None. FINDINGS: There is normal compression, augmentation, and signal throughout the visualized deep lower extremity veins. Prominent right calf subcutaneous soft tissue edema without organized fluid collection US/Venous Duplex Imag/Limited/Uni IMPRESSION: No sonographic evidence of deep venous thrombosis. Right calf subcutaneous soft tissue edema Electronically Signed: Ángel Lopez MD at 22:32 EDT ,
[2023-12-03 21:35] LABS: International Normalized Ratio 1.2; Prothrombin Time (Protime)PT. 14.9 SECONDS (11.7-14.9)
--- NOTE | 2023-12-03 21:35 | ED.VIS.LOWEX ---
HPI History of Present Illness Chief Complaint: Lower Extremity Injury Informant: patient and spouse/S.O. Narrative Narrative: Sudden worsening swelling right lower extremity this afternoon. Yesterday had pain behind his knee. No recent travel or surgeries. 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 Last INR check a week ago states it was 1.6. He had slight dyspnea earlier today resolved. No chest pains. Remote rectal cancer status postchemotherapy none recently. Prior similar symptoms: Yes PFSH PFSH Medical History Abdominal pain Acute cough Afib Arthritis Asthma Benign essential hypertension BiPAP (biphasic positive airway pressure) dependence Cancer Cardiology follow-up encounter COVID-19 Dry skin DVT (deep venous thrombosis) Dyspnea on exertion Edema Encounter for education Fatigue Gastric reflux Gastroesophageal reflux disease High cholesterol History of atrial fibrillation History of echocardiogram History of edema History of steroid therapy History of venous thromboembolism Hyperlipidemia Hypertension Hypokalemia Kidney stone halfway current use 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 Low back pain Non-smoker CORRINA (obstructive sleep apnea) Pulmonary embolism (06/10/18) Rectal cancer Rectal mass Sinusitis Thyroid disease Weight gain with edema Home Medications cholecalciferol (vitamin D3) 50 mcg (2,000 unit) capsule 2,000 unit PO DAILY supplement 06/16/19 [History Last Taken 06/16/19] furosemide 40 mg tablet 40 mg PO DAILY diuretic 06/16/19 [History Last Taken 08/02/23] benazepril 20 mg tablet 20 mg PO DAILY blood pressure 01/09/21 [History Last Taken 08/02/23] sertraline 50 mg tablet 50 mg PO DAILY depression 01/09/21 [History Last Taken Unknown] omeprazole 20 mg capsule,delayed release 20 mg PO Q OTHER DAY PRN GERD 10/25/21 [History Last Taken 08/02/23] rosuvastatin 5 mg tablet (Crestor) 5 mg PO Q OTHER DAY cholesterol #45 tabs 12/25/22 [Rx Last Taken Unknown] aspirin 81 mg tablet,delayed release (Enteric Coated Aspirin) 81 mg PO DAILY heart #90 tabs 01/11/23 [Rx Last Taken 08/02/23] diltiazem HCl 300 mg capsule,extended release 24 hr 300 mg PO DAILY heart #90 caps 04/30/23 [Rx Last Taken 08/02/23] lidocaine-prilocaine 2.5 %-2.5 % topical cream 1 applic topical ONCE PRN port access 30 days #30 grams 07/29/23 [Rx Last Taken Unknown] diclofenac sodium 1 % topical gel See Rx Instructions .Route .COMPLEX #100 grams 08/31/23 [Rx Last Taken Unknown] oxycodone 5 mg tablet 5 mg PO Q6H PRN pain 7 days #14 tabs 11/12/23 [Rx Last Taken Unknown] warfarin 3 mg tablet (Jantoven) 3 mg PO DAILY #90 tabs 11/19/23 [Rx Last Taken Unknown] enoxaparin 150 mg/mL subcutaneous syringe (Lovenox) 150 mg subcut Q12H #30 mL 12/03/23 [Rx Last Taken Unknown] Allergy/AdvReac Type Severity Reaction Status Date / Time apixaban [From Eliquis] AdvReac Severe Pt formed Verified 12/03/23 20:29 PE's in spite of taking routinely simvastatin AdvReac Severe Myalgias Verified 12/03/23 20:29 doxycycline AdvReac Intermediate GI upset Verified 12/03/23 20:29 Family History Mother CAD (coronary artery disease) Diabetes Hypertension Hyperlipidemia Heart disease Father CVA (cerebral vascular accident) Surgical History History of appendectomy History of appendectomy History of cardiac catheterization History of colonoscopy (~06/2016) History of hip surgery History of left heart catheterization (10/21/18) History of left inguinal hernia repair Social History Smoking Status: Never smoker alcohol intake: never substance use type: does not use caffeine: Yes Type: carbonated beverages Number of servings: 1 ROS ROS ED Constitutional Constitutional ED: Denies chills, fever(s) or sweats Eyes Eyes: Denies change in vision ENT ENT ED: Denies dysphagia or sore throat Cardiovascular Cardiovascular: Denies chest pain, leg edema, palpitations or racing heartbeat Respiratory/Chest Respiratory/Chest: Denies cough, dyspnea or dyspnea on exertion Gastrointestinal Gastrointestinal: Denies abdominal pain, diarrhea, nausea or vomiting Genitourinary Genitourinary ED: Denies dysuria, hematuria or urinary frequency Musculoskeletal Musculoskeletal: Reports extremity pain; Denies back pain or neck pain Integumentary Denies rash or wounds Neurologic Neurologic: Denies headache(s), paresthesias or weakness EXAM Physical Exam Const Vital Signs: 12/03/23 20:28 12/03/23 23:30 Temperature 98 F 98.2 F Temperature Source Temporal Pulse Rate 76 81 Respiratory Rate 16 16 Blood Pressure 161/81 H 129/71 H Blood Pressure Mean 107 90 Pulse Ox 96 97 Oxygen Delivery Method Room Air Positive well nourished and well developed General Appearance ED: well developed and NAD HEENT Reports moist mucous membranes normocephalic and atraumatic Eyes PERRL, EOMs intact bilaterally and conjunctivae normal General Eye ED: Yes normal appearance of both eyes Neck no lymphadenopathy and supple General: Negative for tenderness Chest Wall Chest: Negative for tenderness Resp normal respiratory effort and normal air movement Effort and Inspection: symmetric chest movement; Negative for respiratory distress Cardio regular rate, regular rhythm and no murmurs Peripheral Pulses: pulses 2+ throughout GI normal to inspection, nondistended, normoactive bowel sounds and non-tender Palpation: Negative for guarding or rebound tenderness present Back/Spine no CVA tenderness and no thoracic nor lumbar tenderness Extremity Extremity Narrative: Asymmetric swelling right lower extremity compared to the left. Slight calf tenderness. Skin intact. Some erythema lateral aspect distal leg. No crepitus. Distal pulses intact. General Extremety ED: Yes edema and tenderness General Extremity: edema Neuro oriented x3 and no sensory deficits noted Sensorium / Orientation: awake and alert Skin no rashes or lesions noted and no wounds MDM MDM MDM Narrative Medical decision making narrative: Interventions / MDM: Differential diagnosis: Peripheral edema, subtherapeutic INR Diagnosis considered but do not suspect: DVT however ultrasound negative. My EKG interpretation: N/A Imaging independently reviewed and interpreted by myself: Right lower extremity ultrasound discussion with apprentice instrument technician negative for DVT. External documents reviewed: N/A Test considered but not ordered:N/A ED course: Patient unilateral swelling history of DVT on warfarin. INR ordered, DVT studies ordered. Results of ultrasound negative for DVT, subtherapeutic INR of 1.2. She reported transient dyspnea earlier today. Not hypoxic no Rester distress. He has history of PE. Discussed with the concerns can workup further with CT scans however treatment would be the same, ankle treatment would be anticoagulation until therapeutic. Discussed importance for bridging with Lovenox and continuing his Coumadin which will be adjusted by his cardiology clinic. He was given therapeutic Lovenox in the ED 150 mg subcu he was shown how to use this. Meds to bed provided with prescription for Lovenox which had a low copayment. They had a 5-day supply additional 10 days will be available in next couple days. This was discussed with patient and significant other. They understand and agree with plan. They will call loan processor office tomorrow for adjustments of his warfarin. All questions were answered. Re-evaluation: stable Disposition discussed with patient/family/significant other: Patient significant other Case discussed with consulting clinician: N/A This note was generated with [employer] dictation software. It may contain incorrect words, spelling, and punctuation that were not noted in checking the note before signing. Lab Data Attestation: I reviewed the patient's lab results. Labs: Laboratory Results - last 24 hr 12/03/23 21:18 PT 14.9 INR 1.2 Radiography Diagnostic Testing: Clinical Impression(s) from Imaging Studies Venous Duplex 12/03/23 21:21 IMPRESSION: No sonographic evidence of deep venous thrombosis. Right calf subcutaneous soft tissue edema Electronically Signed: Ángel Lopez MD at 22:32 EDT Reading Location ID and State: [facility] / [place] Tel , Service support , Discharge Plan Triage Chief Complaint: Lower Extremity Injury ED Provider: Aneudy Mir Dx/Rx/DC Orders Clinical Impression: Subtherapeutic international normalized ratio (INR), Right leg swelling Instructions: ED Peripheral Edema, Unilateral Prescriptions: New enoxaparin [Lovenox] 150 mg/mL syringe 150 mg subcut Q12H Qty: 30 0RF Rx Instructions: Use as prescribed until INR is therapeutic. No Action benazepril 20 mg tablet 20 mg PO DAILY Patient Comments: TAKE 1 TABLET BY MOUTH EVERY DAY sertraline 50 mg tablet 50 mg PO DAILY lidocaine-prilocaine 2.5-2.5 % cream 1 applic topical ONCE PRN (Reason: port access) 30 Days Qty: 30 2RF Hold Instructions: Ordered cholecalciferol (vitamin D3) 2,000 UNIT capsule 2,000 unit PO DAILY omeprazole 20 mg capsule,delayed release(DR/EC) 20 mg PO Q OTHER DAY PRN (Reason: GERD) oxycodone 5 mg tablet 5 mg PO Q6H PRN (Reason: pain) 7 Days Qty: 14 0RF furosemide 40 mg tablet 40 mg PO DAILY rosuvastatin [Crestor] 5 mg tablet 5 mg PO Q OTHER DAY Qty: 45 3RF aspirin [Enteric Coated Aspirin] 81 mg tablet,delayed release (DR/EC) 81 mg PO DAILY Qty: 90 3RF diltiazem HCl 300 mg capsule,extended release 24hr 300 mg PO DAILY Qty: 90 3RF diclofenac sodium 1 % gel See Rx Instructions .ROUTE .COMPLEX Qty: 100 2RF Dose Instruction: 2 G TOPICALLY TWICE A DAY APPLY TO HANDS AND FEET TWICE DAILY Rx Instructions: 2 G TOPICALLY TWICE A DAY APPLY TO HANDS AND FEET TWICE DAILY warfarin [Jantoven] 3 mg tablet 3 mg PO DAILY Qty: 90 3RF Protocol: Dose Management Condition: Thursday Dose/Route: 3 mg Instruction: 1 x 3 mg tablet Condition: Thursday Dose/Route: 4.5 mg Instruction: 1.5 x 3 mg tablets Condition: Thursday Dose/Route: 3 mg Instruction: 1 x 3 mg tablet Condition: Thursday Dose/Route: 4.5 mg Instruction: 1.5 x 3 mg tablets Condition: Dose/Route: 3 mg Instruction: 1 x 3 mg tablet Condition: Thursday Dose/Route: 4.5 mg Instruction: 1.5 x 3 mg tablets Condition: Thursday Dose/Route: 3 mg Instruction: 1 x 3 mg tablet Protocol Text: Adjustment Start Date: Thursday11/18/23 INR Value: 1.5 INR Date: 11/18/23 Recheck Date: 11/25/23 Primary Care Provider: Hao Membreno Referrals: Hao eMmbreno MD [Primary Care Provider] - Hao Bird [employer], [facility] [Med Staff - Adv Practice Prof] - 1 Day Activity Restrictions/Additional Instructions: Ultrasound of your right leg negative for DVT this evening. Your INR subtherapeutic at 1.2. You were started on Lovenox bridge therapy to take twice a day. You are given 15-day supply. 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 Call cardiology office tomorrow for adjustments of your warfarin and to continue the bridging until you are therapeutic with your DVT and PE history. Disposition Disposition: Home, Self Care Discharge Date/Time: 12/03/23 23:30
[2023-12-03] MEDS: Enoxaparin 150 MG/ML Syringe SC (22:45)
[2023-12-03 23:30] VITALS: BP 129/71; PULSE 81; RESP 16; TEMP 36.8; O2SAT 97
== END 2023-12-03 23:30 | disposition home or self-care (01) ==
PROVIDERS: Emergency Provider Emergency Medicine; PCP Family Medicine; Visit Provider Emergency Medicine
DX: M79.89 Other specified soft tissue disorders (principal); Z79.01 Long term (current) use 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s; Z79.82 Long term (current) use of aspirin; Z86.711 Personal history of pulmonary embolism; Z86.718 Personal history of other venous thrombosis and embolism; Z86.16 Personal history of COVID-19
CPT/HCPCS: 85610; 93971; 96372; 99282

== ENCOUNTER 2023-12-10 06:54 | Outpatient (RCR) | payer MEDICARE, OTHER, SELFPAY ==
[2023-11-12 23:51] VITALS: BMI 38.9
[2023-12-07 08:42] LABS: International Normalized Ratio 1.3; Prothrombin Time (Protime)PT. 16.5 SECONDS (11.7-14.9)
[2023-12-10 08:07] LABS: International Normalized Ratio 1.6; Prothrombin Time (Protime)PT. 19.1 SECONDS (11.7-14.9)
[2023-12-10 15:30] LABS: Absolute Lymphocyte Count 0.42 X10^3/uL (0.83-4.51); Absolute Neutrophil Count 4.9 X10^3/uL (2.0-7.7); Basophil# 0.05 X10^3/uL; Basophil% 0.8 % (0-1); Eosinophil# 0.18 X10^3/uL; Eosinophils% 2.9 % (0-5); Hematocrit 36.9 % (40-54); Hemoglobin 12.1 g/dL (13.0-16.5); Lymphocyte # 0.42 X10^3/ul (0.83-4.51); Lymphocyte % 6.7 % (19-41); Mean Corp Hgb Conc 32.8 g/dL (32-36); Mean Corpuscular Hgb 35.3 pg (27.0-32.0); Mean Corpuscular Volume 107.6 fL (80-94); Monocyte# 0.65 X10^3/uL; Monocyte% 10.4 % (0-10); NRBC Flagged by Analyzer 0 % (0-5); Neutrophil # 4.89 X10^3/uL (2.7-7.7); Neutrophil % 77.9 % (47-70); POSITIVE DIFFERENTIAL YES; Platelet Count 276 K/mm3 (150-450); RBC Distribution Width CV 13.8 % (11.6-14.6); RBC Distribution Width SD 55.1 fl (35.1-43.9); Red Blood Count 3.43 M/mm3 (4.6-6.2); White Blood Count 6.3 K/mm3 (4.4-11.0)
[2023-12-10 15:51] LABS: Differential Indicated SCAN CRITERIA MET
[2023-12-10 16:00] LABS: ALB/GLOB Ratio 0.9 RATIO (0.9-2.4); AST(SGOT) 36 U/L (15-37); Alanine Aminotransfer ALT/SGPT 48 U/L (16-61); Albumin, Serum 3.3 g/dL (3.2-5.0); Alkaline Phosphatase 84 U/L (45-117); Anion Gap 6 (5-15); BUN 25 mg/dL (7-18); BUN/Creat Ratio 29.8 RATIO (10-20); Calcium,Total 9.1 mg/dL (8.5-10.1); Chloride 110 mmol/L (98-107); Creatinine, Serum 0.84 mg/dL (0.70-1.30); EST Glomerular Filtration Rate 97 mL/min (>60); Est Glom Filt Rate - Afr Amer 118 mL/min (>60); Globulin 3.7 g/dL (2.2-4.2); Glucose 95 mg/dL (74-106); Magnesium 2.6 mg/dL (1.6-2.6); Potassium 4.1 mmol/L (3.5-5.1); Sodium Level 139 mmol/L (136-145)
[2023-12-10 16:15] LABS: Platelet Estimate ADEQUATE (ADEQ); Red Cell Morphology N CHROM NORMAL (NORM C&C)
[2023-12-10 16:16] LABS: Anisocytosis 1+; Macrocytosis 1+; Ovalocyte RARE
== END 2023-12-12 18:00 | disposition home or self-care (01) ==
LOC: LAB 06:54
PROVIDERS: Family Provider Family Medicine; PCP Family Medicine; Referring Provider Nurse Practitioner Family; Visit Provider Nurse Practitioner Family
DX: I48.0 Paroxysmal atrial fibrillation (principal); Z79.01 Long term (current) use 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s; I48.91 Unspecified atrial fibrillation
CPT/HCPCS: 36415; 80053; 83735; 85025; 85610

== ENCOUNTER 2023-12-30 06:16 | Outpatient (RCR) | payer MEDICARE, OTHER, SELFPAY ==
[2023-12-12 22:39] VITALS: BMI 38.9
[2023-12-18 07:52] LABS: International Normalized Ratio 1.6; Prothrombin Time (Protime)PT. 19.2 SECONDS (11.7-14.9)
[2023-12-22 07:29] LABS: International Normalized Ratio 1.9; Prothrombin Time (Protime)PT. 21.8 SECONDS (11.7-14.9)
[2023-12-30 09:36] LABS: International Normalized Ratio 2.2; Prothrombin Time (Protime)PT. 24.1 SECONDS (11.7-14.9)
== END 2024-01-12 23:10 | disposition home or self-care (01) ==
LOC: LAB 06:16
PROVIDERS: Family Provider Family Medicine; PCP Family Medicine; Referring Provider Nurse Practitioner Family; Visit Provider Nurse Practitioner Family
DX: I48.0 Paroxysmal atrial fibrillation (principal); Z79.01 Long term (current) use 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s
CPT/HCPCS: 36415; 85610

== ENCOUNTER 2024-02-03 06:00 | Outpatient (RCR) | payer MEDICARE, OTHER, SELFPAY ==
[2024-01-12 23:10] VITALS: BMI 38.9
[2024-01-13 11:07] LABS: International Normalized Ratio 2.4; Prothrombin Time (Protime)PT. 25.7 SECONDS (11.7-14.9)
[2024-02-03 06:47] LABS: International Normalized Ratio 2.5; Prothrombin Time (Protime)PT. 27.2 SECONDS (11.7-14.9)
== END 2024-02-03 08:32 | disposition home or self-care (01) ==
LOC: LAB 06:00
PROVIDERS: Family Provider Family Medicine; PCP Family Medicine; Referring Provider Nurse Practitioner Family; Visit Provider Nurse Practitioner Family
DX: I48.0 Paroxysmal atrial fibrillation (principal); Z79.01 Long term (current) use 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s
CPT/HCPCS: 36415; 85610

== ENCOUNTER → 2024-02-10 | Outpatient (CLI) | payer MEDICARE, OTHER, SELFPAY ==
[2024-02-10 18:12] LABS: Absolute Lymphocyte Count 0.64 X10^3/uL (0.83-4.51); Absolute Neutrophil Count 5.4 X10^3/uL (2.0-7.7); Basophil# 0.05 X10^3/uL; Basophil% 0.6 % (0-1); Eosinophil# 0.78 X10^3/uL; Hematocrit 39.7 % (40-54); Lymphocyte # 0.64 X10^3/ul (0.83-4.51); Lymphocyte % 8.2 % (19-41); Mean Corp Hgb Conc 32.7 g/dL (32-36); Mean Corpuscular Hgb 31.9 pg (27.0-32.0); Mean Corpuscular Volume 97.5 fL (80-94); Mean Platelet Vol. 9.4 fl (6.2-12.0); Monocyte# 0.89 X10^3/uL; Monocyte% 11.4 % (0-10); NRBC Flagged by Analyzer 0 % (0-5); Neutrophil # 5.44 X10^3/uL (2.7-7.7); Neutrophil % 69.4 % (47-70); Platelet Count 254 K/mm3 (150-450); RBC Distribution Width CV 12.7 % (11.6-14.6); RBC Distribution Width SD 45.1 fl (35.1-43.9); Red Blood Count 4.07 M/mm3 (4.6-6.2); White Blood Count 7.8 K/mm3 (4.4-11.0)
[2024-02-10 18:27] LABS: Vitamin D,25 Hydroxy 48.3 ng/mL
[2024-02-10 18:29] LABS: Hemoglobin A1c 5.5 % (3.8-5.6)
[2024-02-10 18:38] LABS: AST(SGOT) 27 U/L (15-37); Alanine Aminotransfer ALT/SGPT 29 U/L (16-61); Albumin, Serum 3.7 g/dL (3.2-5.0); Alkaline Phosphatase 111 U/L (45-117); Anion Gap 6 (5-15); BUN 21 mg/dL (7-18); BUN/Creat Ratio 20.8 RATIO (10-20); Calcium,Total 8.9 mg/dL (8.5-10.1); Chloride 109 mmol/L (98-107); Cholesterol 158 mg/dL (200); Creatinine, Serum 1.01 mg/dL (0.70-1.30); EST Glomerular Filtration Rate 79 mL/min (>60); Est Glom Filt Rate - Afr Amer 95 mL/min (>60); Globulin 3.7 g/dL (2.2-4.2); Glucose 91 mg/dL (74-106); High Density Lipoprotein 41 mg/dL; Magnesium 2.1 mg/dL (1.6-2.6); Potassium 3.7 mmol/L (3.5-5.1); Protein, Total 7.4 g/dL (6.4-8.2); Sodium Level 139 mmol/L (136-145); Thyroid Stim Hormone (TSH) 1.52 uIU/mL (0.358-3.74); Triglycerides 152 mg/dL; Very Low Density Lipoprotein 30 mg/dL (5-40)
== END | disposition home or self-care (01) ==
LOC: MFPLAB 17:02
PROVIDERS: PCP Family Medicine; Visit Provider Family Medicine
DX: E55.9 Vitamin D deficiency, unspecified (principal); I10 Essential (primary) hypertension; R73.02 Impaired glucose tolerance (oral)
CPT/HCPCS: 36415; 80053; 80061; 82306; 83036; 83735; 84443; 85025

== ENCOUNTER 2024-02-14 14:59 | Inpatient (IN) | payer MEDICARE, OTHER, SELFPAY ==
[2024-02-14] VITALS (8 sets, daily range): BP systolic 113–152; BP diastolic 57–96; PULSE 76–86; RESP 16–18; TEMP 36–36.7; O2SAT 95–98; BMI 42.5
--- NOTE | 2024-02-14 15:19 | CT_ITS ---
STUDY: CT BRAIN WITHOUT CONTRAST REASON FOR EXAM: Male, 63 years old. head injury TECHNIQUE: Transaxial CT imaging of the brain was performed without administration of intravenous contrast material. Individualized dose optimization techniques were used for this CT. COMPARISON: 06/10/2018 FINDINGS: Normal calvarium. Normal soft tissues. Normal size ventricles and extra-axial spaces for the patient''s age. Normal white matter tracts of the cerebral hemispheres. Normal basal ganglia and thalami. Normal brainstem. Normal cerebellum. There is no intracranial hemorrhage. There are no findings of an acute ischemic infarction. Degenerative changes of the mandibular condyles. ASPECTS 10 CT/Brain/Head without Contrast IMPRESSION: There are no acute intracranial findings. Electronically Signed: Ephraim Martin MD at 15:50 EDT ,
--- NOTE | 2024-02-14 15:19 | RAD_ITS ---
EXAM: XR LEFT SHOULDER COMPLETE, 2 OR MORE VIEWS CLINICAL INDICATION: fall TECHNIQUE: Two or more views of the left shoulder. COMPARISON: No relevant prior studies available. FINDINGS: BONES/JOINTS: Unremarkable. No acute fracture. No subluxation. Normal alignment. Preservation of the joint space. No sclerotic or destructive changes observed. SOFT TISSUES: Unremarkable. No soft tissue swelling or gas. No radiopaque foreign body. RAD/Shoulder min 2 Views IMPRESSION: Negative left shoulder x-rays. Electronically Signed: Ephraim Martin MD at 16:29 EDT ,
--- NOTE | 2024-02-14 15:19 | CT_ITS ---
EXAM: CT SPINE - CERVICAL WITHOUT IV REASON FOR EXAM: Male, 63 years old. NECK PAIN fall HISTORY: NECK PAIN fall Individualized dose optimization techniques were used for this CT. TECHNIQUE: Multiplanar images were obtained of the cervical spine. IV contrast was not utilized. Comparison: 27 xr FINDINGS: The vertebral bodies do maintain their height. The odontoid process is intact. No pre-vertebral soft tissue swelling is seen. The intravertebral disc height is lost. There are scattered lymph nodes in the neck. There are degenerative changes of the osseous structures. There is bilateral facet arthropathy. There are scattered levels of foraminal stenosis. There are vascular calcifications. CT/Spine Cervical without Contras IMPRESSION: Degenerative changes of the cervical spine. There are no acute findings. Electronically Signed: Ephraim Martin MD at 15:49 EDT ,
[2024-02-14] MEDS: Oxycodone/Apap 5/325 Tablet PO (15:25)
--- NOTE | 2024-02-14 15:27 | EDS_ITS ---
HPI <YAKOV Li - Last Filed: 02/14/24 17:32> History of Present Illness Chief Complaint: Fall Narrative Narrative: Patient is a 63-year-old male with history of rectal cancer, hypertension, obesity, atrial fibrillation, pulmonary embolus on Coumadin who presents to the emergency department after mechanical fall last evening. [place] he had a fall backwards to the left. He struck the back of his head, he did not have any LOC. He is has more pain to the left shoulder, left hip. Patient states he was able to stand however he is unable to walk. He states he has decreased motion in his left shoulder. He denies any other injuries. PFS <YAKOV Li - Last Filed: 02/14/24 17:32> [facility] Medical History Low back pain Fatigue Dry skin Hypokalemia Thyroid disease History of echocardiogram Cancer Encounter for education Rectal cancer Rectal mass High cholesterol DVT (deep venous thrombosis) Gastric reflux Non-smoker BiPAP (biphasic positive airway pressure) dependence History of edema Cardiology follow-up encounter History of atrial fibrillation History of steroid therapy Hypertension Sinusitis Acute cough COVID-19 Kidney stone retirement current use 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 Abdominal pain Weight gain with edema Edema Dyspnea on exertion History of venous thromboembolism Pulmonary embolism (06/10/18) CORRINA (obstructive sleep apnea) Afib Asthma Arthritis Hyperlipidemia Gastroesophageal reflux disease Benign essential hypertension Home Medications ?Medication ?Instructions ?Recorded ?Last Taken ?Type cholecalciferol (vitamin D3) 50 2,000 unit PO DAILY supplement 06/16/19 06/16/19 History mcg (2,000 unit) capsule furosemide 40 mg tablet 40 mg PO DAILY diuretic 06/16/19 08/02/23 History benazepril 20 mg tablet 20 mg PO DAILY blood pressure 01/09/21 08/02/23 History sertraline 50 mg tablet 50 mg PO DAILY depression 01/09/21 Unknown History omeprazole 20 mg capsule,delayed 20 mg PO Q OTHER DAY PRN GERD 10/25/21 08/02/23 History release diltiazem HCl 300 mg 300 mg PO DAILY heart #90 caps 04/30/23 08/02/23 Rx capsule,extended release 24 hr aspirin 81 mg tablet,delayed 81 mg PO DAILY heart #90 tabs 01/15/24 Unknown Rx release (Enteric Coated Aspirin) warfarin 3 mg tablet (Jantoven) 3 mg PO DAILY blood thinner #90 01/19/24 Unknown Rx tabs rosuvastatin 5 mg tablet (Crestor) 5 mg PO Q OTHER DAY cholesterol 01/22/24 Unknown Rx #45 tabs diclofenac sodium 1 % topical gel 2 g topical BID pain 02/14/24 Unknown History warfarin 5 mg tablet 5 mg PO DAILY blood thinner 02/14/24 Unknown History Allergy/AdvReac Type Severity Reaction Status Date / Time apixaban (From Eliquis) AdvReac Severe Pt formed Verified 02/14/24 15:01 PE's in spite of taking routinely simvastatin AdvReac Severe Myalgias Verified 02/14/24 15:01 doxycycline AdvReac Intermediate GI upset Verified 02/14/24 15:01 Family History Mother CAD (coronary artery disease) Diabetes Hypertension Hyperlipidemia Heart disease Father CVA (cerebral vascular accident) Surgical History History of cardiac catheterization History of appendectomy History of colonoscopy (~06/2016) History of left heart catheterization (10/21/18) History of left inguinal hernia repair History of appendectomy History of hip surgery Social History Smoking Status: Never smoker alcohol intake: never substance use type: does not use caffeine: Yes Type: carbonated beverages Number of servings: 1 ROS <YAKOV Li - Last Filed: 02/14/24 17:32> ROS ED ROS Narrative Constitutional: Negative for fever, chills, weight loss, weakness Eyes: Negative for vision loss, vision change, double vision ENT: Negative for any sore throat, ear pain, congestion Cardiovascular: Negative for any chest pain, tightness, palpitations Respiratory: Negative for any cough, sputum production, hemoptysis, dyspnea, dyspnea on exertion, orthopnea Gastrointestinal: Negative for any abdominal pain, nausea, vomiting, diarrhea, constipation, blood in stool, blood in vomit : Negative for any urinary frequency, dysuria, retention, blood in urine Muscle skeletal: Negative for any neck pain, back pain. Positive for left hip, left shoulder pain Neurological: Negative for any headache, syncope, dizziness Skin: Negative for any rashes, itching, abrasions, lacerations Psychiatric: Negative for any depression, anxiety, stress, suicidal ideation, homicidal ideation Hematologic: Negative for any excessive bruising, easy bleeding EXAM <YAKOV Li - Last Filed: 02/14/24 17:32> Physical Exam Narrative Exam Narrative: Vital signs reviewed. HEET: Head normocephalic atraumatic, TMs clear bilaterally. Posterior pharynx is clear, moist mucous membranes. Nares clear bilaterally. Pupils are equal round reactive to light. Neck: Supple with no lymphadenopathy or tenderness. No signs of meningismus. Cardiac: Regular rate and rhythm no murmurs gallops or rubs, equal peripheral pulses bilaterally. Respiratory: Lungs clear to auscultation bilaterally. No chest tenderness. Abdomen: Soft, nontender, nondistended. No abdominal bruit or pulsatile masses. No hepatosplenomegaly Extremities: No peripheral edema, no signs of gross trauma or deformity. Active full range of motion of all extremities. Patient increased pain with flexion of the left hip. No pain or obvious deformity of the left lower extremity. Significant pain to the left anterior shoulder. Worsening pain with any abduction or adduction Neuro: Cranial nerves II through XII intact, no focal neurological deficits. Skin: Clean dry and intact with no rash, purpura, petechiae, vesicles or pustules. Backs/flank: No CVA tenderness, no midline spinal tenderness, no deformity. Psych: Normal mood and affect. No SI, HI or acute psychosis. Const Vital Signs: 02/14/24 14:59 02/14/24 15:08 02/14/24 16:45 Temperature 96.8 F L Temperature Source Temporal Pulse Rate 78 Respiratory Rate 16 Respiratory Effort Normal Non-Labored Respiratory Depth Normal Respiratory Pattern Normal Blood Pressure 137/67 H 113/57 L Blood Pressure Mean 90 74 Pulse Ox 96 Oxygen Delivery Method Room Air Room Air 02/14/24 16:59 02/14/24 17:00 Temperature Temperature Source Pulse Rate 76 Respiratory Rate 18 Respiratory Effort Respiratory Depth Respiratory Pattern Blood Pressure 129/61 H 135/61 H Blood Pressure Mean 83 81 Pulse Ox 98 96 Oxygen Delivery Method Room Air Positive well nourished and well developed General Appearance ED: well developed <Jeffrey Arizmendi MD - Last Filed: 02/14/24 21:17> Physical Exam Const Vital Signs: 02/14/24 14:59 02/14/24 15:08 02/14/24 16:45 Temperature 96.8 F L Temperature Source Temporal Pulse Rate 78 Respiratory Rate 16 Respiratory Effort Normal Non-Labored Respiratory Depth Normal Respiratory Pattern Normal Blood Pressure 137/67 H 113/57 L Blood Pressure Mean 90 74 Pulse Ox 96 Oxygen Delivery Method Room Air Room Air 02/14/24 16:59 02/14/24 17:00 Temperature Temperature Source Pulse Rate 76 Respiratory Rate 18 Respiratory Effort Respiratory Depth Respiratory Pattern Blood Pressure 129/61 H 135/61 H Blood Pressure Mean 83 81 Pulse Ox 98 96 Oxygen Delivery Method Room Air MDM <YAKOV Li - Last Filed: 02/14/24 17:32> [facility] Lab Data Labs: Laboratory Results - last 24 hr 02/14/24 02/14/24 16:45 17:20 WBC 8.7 RBC 3.65 L Hgb 11.7 L Hct 35.9 L MCV 98.4 H MCH 32.1 H MCHC 32.6 RDW Std Deviation 45.5 H RDW Coeff of [place] 12.7 Plt Count 235 MPV 9.1 Immature Gran % (Auto) 0.500 Neut % (Auto) 83.2 H Lymph % (Auto) 4.8 L [place] % (Auto) 9.6 Eos % (Auto) 1.4 Baso % (Auto) 0.5 Absolute Neuts (auto) 7.3 Absolute Lymphs (auto) 0.42 L Nucleated RBC % 0 PT 26.9 H INR 2.5 Sodium 139 Potassium 3.4 L Chloride 107 Carbon Dioxide 25.0 Anion Gap 7 BUN 24 H Creatinine 0.95 Estim Creat Clear Calc 110.29 Est GFR (MDRD) Af Amer 102 Est GFR (MDRD) Non-Af 85 BUN/Creatinine Ratio 25.3 H Glucose 133 H Calcium 8.8 Radiography Diagnostic Testing: Clinical Impression(s) from Imaging Studies Brain CT 02/14/24 15:19 IMPRESSION: There are no acute intracranial findings. Electronically Signed: Ephraim Martin MD at 15:50 EDT , Cervical Spine CT 02/14/24 15:19 IMPRESSION: Degenerative changes of the cervical spine. There are no acute findings. Electronically Signed: Ephraim Martin MD at 15:49 EDT , Shoulder X-Ray 02/14/24 15:19 IMPRESSION: Negative left shoulder x-rays. Electronically Signed: Ephraim Martin MD at 16:29 EDT , Hip/Pelvis X-Ray 02/14/24 15:50 IMPRESSION: No acute findings in the pelvis or left hip. Electronically Signed: Ephraim Martin MD at 16:30 EDT Reading Location ID and State: [place] / [place] , Service support , Chest X-Ray 02/14/24 16:01 IMPRESSION: There are no acute findings. Electronically Signed: Ephraim Martin MD at 16:37 EDT , Lower Extremity CT 02/14/24 16:39 IMPRESSION: 1. Soft tissue edema or ecchymosis along the left hip. 2. Acute slightly displaced fracture of the left greater trochanter. Electronically Signed: Ephraim Martin MD at 17:04 EDT , Treatment and Re-Evaluation :: Differential diagnosis includes however is not limited to: Concussion, to cranial bleeding, skull fracture, hip fracture, pelvic fracture, left shoulder fracture, left shoulder contusion Patient appears to be in no obvious respiratory distress vital signs are stable. Patient presents to the emergency department with complaints of left shoulder, left hip pain following mechanical fall last evening. Patient states he did hit his head last evening, secondary to the patient being on Coumadin, I do believe that a CT scan of the brain and cervical spine will be obtained. Patient was given oral Percocet. X-rays of the left shoulder, left hip will be obtained. All radiologic examinations were read, reviewed by the emergency department attending. From these reads, a plan of care will be put in place. Patient's x-ray of the chest shows no acute findings. X-ray of the hip and pelvis shows no acute findings in the pelvis or left hip. X-ray of the left shoulder shows negative left shoulder x-rays. Secondary to the worsening pain, inability to ambulate, patient received a CT scan of the left hip. Patient be given IV morphine, IV Zofran. Patient will be redosed on IV morphine secondary to worsening pain. CT scans of the left hip shows acute slightly displaced fracture of the left greater trochanter. Secondary to this finding, the patient being unable to walk with a walker, needing multiple pain medicines, patient will need to be admitted to hospital. Patient will need to be sent for rehab. I will reach out to orthopedics, and then I will speak with the hospitalist. Spoke with orthopedic attending, this is a nonsurgical injury. I spoke with the patient, he is agreeable to admission. I spoke with hospitalist, patient stable for admission <Jeffrey Arizmendi MD - Last Filed: 02/14/24 21:17> [facility] Narrative Medical decision making narrative: Dr. Arizmendi: I have personally performed a face to face assessment of the patient and have reviewed the JULIETTE Note. I performed a substantive portion of the visit including all aspects of the following. My donovan findings include: History is left shoulder and left hip pain status post fall yesterday evening at [employer]. Patient tripped over a bobo and fell forward onto his left shoulder and hip. Awoke today and is having difficulty ambulating. Exam is GCS 15. ABCs intact. Diffuse tenderness to palpation left shoulder, no crepitance, no clinical dislocation. Positive tenderness to palpation left hip diffusely, no significant pain with logrolling of femur. Pelvis stable. Medical Decision Making: Check x-ray hip, x-ray of the left hip interpreted by myself independently shows chronic changes, but no overt fracture. X-ray of the left shoulder interpreted by myself independently shows no fracture or dislocation. I reviewed the radiology report of the left shoulder which confirms my independent interpretation. Additionally I reviewed the radiology report of the left hip which states there is no evidence of fracture. However, the patient unable to stand and ambulate. With the suspicion of occult fracture, CT of the left hip was obtained and radiology report reviewed. While there is no intertrochanteric hip fracture, there is evidence of fracture of the greater trochanter. Patient was discussed with orthopedic surgery, Dr. Kumari which confirms that this is nonoperative. However, given his immobility to ambulate, he may need to be admitted for rehab. Laboratory work was obtained and reviewed. Patient was discussed with the hospitalist for admission. He is in stable condition. Other additions or changes: [None] History & Record Review Discussion w/independent historian: Patient Lab Data Attestation: I reviewed the patient's lab results. Labs: Laboratory Results - last 24 hr 02/14/24 02/14/24 16:45 17:20 WBC 8.7 RBC 3.65 L Hgb 11.7 L Hct 35.9 L MCV 98.4 H MCH 32.1 H MCHC 32.6 RDW Std Deviation 45.5 H RDW Coeff of [place] 12.7 Plt Count 235 MPV 9.1 Immature Gran % (Auto) 0.500 Neut % (Auto) 83.2 H Lymph % (Auto) 4.8 L [place] % (Auto) 9.6 Eos % (Auto) 1.4 Baso % (Auto) 0.5 Absolute Neuts (auto) 7.3 Absolute Lymphs (auto) 0.42 L Nucleated RBC % 0 PT 26.9 H INR 2.5 Sodium 139 Potassium 3.4 L Chloride 107 Carbon Dioxide 25.0 Anion Gap 7 BUN 24 H Creatinine 0.95 Estim Creat Clear Calc 110.29 Est GFR (MDRD) Af Amer 102 Est GFR (MDRD) Non-Af 85 BUN/Creatinine Ratio 25.3 H Glucose 133 H Calcium 8.8 Radiography Diagnostic Testing: Clinical Impression(s) from Imaging Studies Brain CT 02/14/24 15:19 IMPRESSION: There are no acute intracranial findings. Electronically Signed: Ephraim Martin MD at 15:50 EDT , Cervical Spine CT 02/14/24 15:19 IMPRESSION: Degenerative changes of the cervical spine. There are no acute findings. Electronically Signed: Ephraim Martin MD at 15:49 EDT Reading Location ID and State: [facility] / [place] , Service support , Shoulder X-Ray 02/14/24 15:19 IMPRESSION: Negative left shoulder x-rays. Electronically Signed: Ephraim Martin MD at 16:29 EDT Reading Location ID and State: [facility] / [place] , Service support , Hip/Pelvis X-Ray 02/14/24 15:50 IMPRESSION: No acute findings in the pelvis or left hip. Electronically Signed: Ephraim Martin MD at 16:30 EDT Reading Location ID and State: [facility] / [place] , Service support , Chest X-Ray 02/14/24 16:01 IMPRESSION: There are no acute findings. Electronically Signed: Ephraim Martin MD at 16:37 EDT Reading Location ID and State: [facility] / [place] , Service support , Lower Extremity CT 02/14/24 16:39 IMPRESSION: 1. Soft tissue edema or ecchymosis along the left hip. 2. Acute slightly displaced fracture of the left greater trochanter. Electronically Signed: Ephraim Martin MD at 17:04 EDT , Discharge Plan Dx/Rx/DC Orders Clinical Impression: Fall, CHI (closed head injury), Left shoulder strain, Closed fracture of greater trochanter of femur, History of atrial fibrillation, History of blood clots, Inability to ambulate due to hip Disposition Disposition: [facility] Care [facility] Discharge Date/Time: 02/14/24 18:17
--- NOTE | 2024-02-14 15:50 | RAD_ITS ---
EXAM: XR LEFT HIP WITH PELVIS WHEN PERFORMED, 2 OR 3 VIEWS CLINICAL INDICATION: left TECHNIQUE: Two or three views of the left hip with pelvis when performed. COMPARISON: No relevant prior studies available. FINDINGS: BONES/JOINTS: Degenerative findings in the lumbar spine. No displaced fracture. No destructive or sclerotic lesions. Note that overlapping bowel shadows may however obscure fine detail. Sacroiliac joint is unremarkable. No widening of the pubic symphysis. SOFT TISSUES: Unremarkable. No soft tissue swelling or gas. RAD/HIP, UNI W/ Pelvis 2-3 Views IMPRESSION: No acute findings in the pelvis or left hip. Electronically Signed: Ephraim Martin MD at 16:30 EDT Reading Location ID and State: [facility] / [place] , Service support ,
--- NOTE | 2024-02-14 16:01 | RAD_ITS ---
STUDY: XR Chest 1 View 02/14/2024 3:40 PM REASON FOR EXAM: Male, 63 years old. pre op COMPARISON: 08.03.23 TECHNIQUE: XR Chest 1 View FINDINGS: There is no demonstrated pleural abnormality. There is a right Port-A-Cath and/or mediport in place. The tip is in the atrium. There is no pneumothorax. Enlarged heart size. Normal mediastinum. Normal rubina. Prominent appearing increased interstitial lung markings. Normal visualized pulmonary arteries. There is atherosclerotic calcification of the aortic arch with tortuosity. There are diffuse degenerative changes of the visualized thoracic spine. There is degenerative osteoarthritis of the bilateral shoulders. There are no acute findings of the upper abdomen. RAD/Chest 1 View (Portable) IMPRESSION: There are no acute findings. Electronically Signed: Ephraim Martin MD at 16:37 EDT ,
[2024-02-14] MEDS: Ondansetron 4 MG/2 ML Vial IV (16:37)
[2024-02-14] MEDS: Morphine 4 MG/ML Syringe IV ×2 (16:37→17:20)
--- NOTE | 2024-02-14 16:39 | CT_ITS ---
EXAM: CT LEFT LOWER EXTREMITY WITHOUT INTRAVENOUS CONTRAST, HIP CLINICAL INDICATION: hip pain TECHNIQUE: Helically acquired images were obtained of the left hip without intravenous contrast. This CT exam was performed using one or more of the following dose reduction techniques: automated exposure control, adjustment of the mA and/or kV according to patient size, and/or use of iterative reconstruction technique. RADIATION DOSE: CTDIvol = 47.13 mGy, DLP = 1353.05 mGy-cm COMPARISON: 2.28.24 ctap FINDINGS: BONES/JOINTS: Acute slightly displaced fracture of the left greater trochanter. Degenerative findings in the lumbar spine. Stable shortened appearance of the left femoral neck. SOFT TISSUES: Soft tissue edema or ecchymosis along the left hip. No radiopaque foreign body. BOWEL: Diverticulosis but no evidence for diverticula. REPRODUCTIVE: Calcifications noted in the prostate gland. CT/Extremity Lower without Contra IMPRESSION: 1. Soft tissue edema or ecchymosis along the left hip. 2. Acute slightly displaced fracture of the left greater trochanter. Electronically Signed: Ephraim Martin MD at 17:04 EDT ,
[2024-02-14 16:49] LABS: Absolute Lymphocyte Count 0.42 X10^3/uL (0.83-4.51); Absolute Neutrophil Count 7.3 X10^3/uL (2.0-7.7); Basophil# 0.04 X10^3/uL; Basophil% 0.5 % (0-1); Eosinophil# 0.12 X10^3/uL; Eosinophils% 1.4 % (0-5); Hematocrit 35.9 % (40-54); Hemoglobin 11.7 g/dL (13.0-16.5); Lymphocyte # 0.42 X10^3/ul (0.83-4.51); Lymphocyte % 4.8 % (19-41); Mean Corp Hgb Conc 32.6 g/dL (32-36); Mean Corpuscular Hgb 32.1 pg (27.0-32.0); Mean Corpuscular Volume 98.4 fL (80-94); Mean Platelet Vol. 9.1 fl (6.2-12.0); Monocyte# 0.84 X10^3/uL; Monocyte% 9.6 % (0-10); NRBC Flagged by Analyzer 0 % (0-5); Neutrophil # 7.26 X10^3/uL (2.7-7.7); Neutrophil % 83.2 % (47-70); POSITIVE DIFFERENTIAL YES; Platelet Count 235 K/mm3 (150-450); RBC Distribution Width CV 12.7 % (11.6-14.6); RBC Distribution Width SD 45.5 fl (35.1-43.9); Red Blood Count 3.65 M/mm3 (4.6-6.2); White Blood Count 8.7 K/mm3 (4.4-11.0)
[2024-02-14 17:18] LABS: Anion Gap 7 (5-15); BUN 24 mg/dL (7-18); BUN/Creat Ratio 25.3 RATIO (10-20); Calcium,Total 8.8 mg/dL (8.5-10.1); Chloride 107 mmol/L (98-107); Creatinine, Serum 0.95 mg/dL (0.70-1.30); EST Glomerular Filtration Rate 85 mL/min (>60); Est Glom Filt Rate - Afr Amer 102 mL/min (>60); Estimated Creatinine Clearance 110.29 ml/min; Glucose 133 mg/dL (74-106); Potassium 3.4 mmol/L (3.5-5.1); Sodium Level 139 mmol/L (136-145)
--- NOTE | 2024-02-14 17:32 | PCM.HP.STD ---
HPI - General General Date of Admission: 02/14/24 Date of Service: 02/14/24 Chief Complaint: Nondisplaced fracture of left hip, left shoulder injury HPI Narrative MIGUE STROUD, is a 63 M with past medical history of rectal cancer, hypertension, obesity, atrial fibrillation, pulm embolus on Coumadin therapy who [place] he fell on his left side and on his back. He also hit his head but there was no associated LOC. At the time he tripped on the floor but did not does not endorse any dizziness lightheadedness blackout or palpitations around the time. At the time of presentation to the ED, Blood pressure 135/61 WBC 8.5 hemoglobin 11.7 sodium 139 potassium 3.4 BUN 24 glucose 133. Imaging evaluation in the ED showed normal CT head, normal CT neck, displaced fracture of the left greater trochanter. He is having significant difficulty in mobilization and in taking care of himself at home. The case was discussed with orthopedic surgery and he is not deemed to be a surgical candidate at this time. He is being further admitted for evaluation and management of his hip fracture, pain control and rehabilitation. 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 Abdominal pain Weight gain with edema Edema Dyspnea on exertion History of venous thromboembolism Pulmonary embolism (06/10/18) CORRINA (obstructive sleep apnea) Afib Asthma Arthritis Hyperlipidemia Gastroesophageal reflux disease Benign essential hypertension Home Medications ?Medication ?Instructions ?Recorded ?Last Taken ?Type cholecalciferol (vitamin D3) 50 2,000 unit PO DAILY supplement 06/16/19 06/16/19 History mcg (2,000 unit) capsule furosemide 40 mg tablet 40 mg PO DAILY diuretic 06/16/19 08/02/23 History benazepril 20 mg tablet 20 mg PO DAILY blood pressure 01/09/21 08/02/23 History sertraline 50 mg tablet 50 mg PO DAILY depression 01/09/21 Unknown History omeprazole 20 mg capsule,delayed 20 mg PO Q OTHER DAY PRN GERD 10/25/21 08/02/23 History release diltiazem HCl 300 mg 300 mg PO DAILY heart #90 caps 04/30/23 08/02/23 Rx capsule,extended release 24 hr aspirin 81 mg tablet,delayed 81 mg PO DAILY heart #90 tabs 01/15/24 Unknown Rx release (Enteric Coated Aspirin) warfarin 3 mg tablet (Jantoven) 3 mg PO DAILY #90 tabs 01/19/24 Unknown Rx rosuvastatin 5 mg tablet (Crestor) 5 mg PO Q OTHER DAY cholesterol 01/22/24 Unknown Rx #45 tabs diclofenac sodium 1 % topical gel 2 g topical BID pain 02/14/24 Unknown History warfarin 5 mg tablet 5 mg PO DAILY blood thinner 02/14/24 Unknown History Allergy/AdvReac Type Severity Reaction Status Date / Time apixaban (From [employer]) AdvReac Severe Pt formed Verified 02/14/24 15:01 PE's in spite of taking routinely simvastatin AdvReac Severe Myalgias Verified 02/14/24 15:01 doxycycline AdvReac Intermediate GI upset Verified 02/14/24 15:01 Family History Mother CAD (coronary artery disease) Diabetes Hypertension Hyperlipidemia Heart disease Father CVA (cerebral vascular accident) Surgical History History of cardiac catheterization History of appendectomy History of colonoscopy (~06/2016) History of left heart catheterization (10/21/18) History of left inguinal hernia repair History of appendectomy History of hip surgery Social History Smoking Status: Never smoker alcohol intake: never substance use type: does not use caffeine: Yes Type: carbonated beverages Number of servings: 1 ROS Review of Systems ROS Unobtainable: Denies due to encephalopathy, due to endotracheal tube, due to mental condition, due to mental status or other Constitutional Constitutional: Reports malaise Eyes Eyes: Denies blurry vision, change in eye color, change in vision, discharge from eye(s), double vision, erythema, eye pain, loss of vision or other ENT HEENT: Denies abnormal hearing, dysphagia, ear pain, epistaxis, headache(s), hearing loss, nasal congestion, nasal discharge, post nasal drip, sinus pressure, sore throat or other Cardiovascular Cardiovascular: Denies chest pain, claudication, dyspnea on exertion, edema, lightheadedness, orthopnea, palpitations, paroxysmal nocturnal dyspnea, rapid heart rate, syncope or other Respiratory/Chest Respiratory/Chest: Denies cough, dyspnea, excessive phlegm production, hemoptysis, productive cough, shortness of breath at rest, shortness of breath with exertion, wheezing or other Gastrointestinal Gastrointestinal: Denies abdominal pain, coffee ground emesis, constipation, diarrhea, dyspepsia, hematemesis, hematochezia, loose stools, melena, nausea, vomiting or other Genitourinary Genitourinary: Denies burning urination, difficulty urinating, dysuria, hematuria, nocturia, urinary frequency, urinary hesitancy, urinary incontinence, urinary urgency or other Musculoskeletal Musculoskeletal: Reports arthralgias, back pain, joint pain, joint stiffness and joint swelling Neurologic Neurologic: Denies abnormal gait, abnormal speech, confusion, disequilibrium, dizziness, focal weakness, headache(s), numbness, paresthesias, seizure-like activity, seizures, syncope, tingling, tremor(s) or other Psychiatric Psychiatric: Denies anxiety, depression, homicidal ideation, suicidal ideation or other Vital Signs Vital Signs Vital Signs: 02/14/24 14:59 02/14/24 15:08 02/14/24 16:45 Temperature 96.8 F L Temperature Source Temporal Pulse Rate 78 Respiratory Rate 16 Respiratory Effort Normal Non-Labored Respiratory Depth Normal Respiratory Pattern Normal Blood Pressure 137/67 H 113/57 L Blood Pressure Mean 90 74 Pulse Ox 96 Oxygen Delivery Method Room Air Room Air 02/14/24 16:59 02/14/24 17:00 Temperature Temperature Source Pulse Rate 76 Respiratory Rate 18 Respiratory Effort Respiratory Depth Respiratory Pattern Blood Pressure 129/61 H 135/61 H Blood Pressure Mean 83 81 Pulse Ox 98 96 Oxygen Delivery Method Room Air Weight Weight: 305 lb 5.443 oz Body Mass Index (BMI) 42.5 Physical Exam Const alert and oriented x3 HEENT normocephalic and head/scalp atraumatic Eyes PERRL Neck no lymphadenopathy Resp normal respiratory effort, no retractions and no use of accessory muscles Cardio regular rate and regular rhythm GI normal to inspection, nondistended, normoactive bowel sounds Extremity Extremity Narrative: Pain stiffness and inability to move his left shoulder to overhead extension, left hips are painful, movement avoided given the severity of pain. No ankle swelling or edema. Neuro oriented x3 and moves all extremities Results Medical Records Data Attestation: I reviewed the patient's medical records Lab / Micro Data Attestation: I reviewed the patient's lab results. 02/14/24 16:45 02/14/24 16:45 Labs: Laboratory Results - last 24 hr 02/14/24 16:45: WBC 8.7, RBC 3.65 L, Hgb 11.7 L, Hct 35.9 L, MCV 98.4 H, MCH 32.1 H, MCHC 32.6, RDW Std Deviation 45.5 H, RDW Coeff of [place] 12.7, Plt Count 235, MPV 9.1, Immature Gran % (Auto) 0.500, Neut % (Auto) 83.2 H, Lymph % (Auto) 4.8 L, [place] % (Auto) 9.6, Eos % (Auto) 1.4, Baso % (Auto) 0.5, Absolute Neuts (auto) 7.3, Absolute Lymphs (auto) 0.42 L, Nucleated RBC % 0, Sodium 139, Potassium 3.4 L, Chloride 107, Carbon Dioxide 25.0, Anion Gap 7, BUN 24 H, Creatinine 0.95, Estim Creat Clear Calc 110.29, Est GFR (MDRD) Af Amer 102, Est GFR (MDRD) Non-Af 85, BUN/Creatinine Ratio 25.3 H, Glucose 133 H, Calcium 8.8 Imaging Radiology Impression Brain CT 02/14/24 15:19 IMPRESSION: There are no acute intracranial findings. Electronically Signed: Ephraim Martin MD at 15:50 EDT , Cervical Spine CT 02/14/24 15:19 IMPRESSION: Degenerative changes of the cervical spine. There are no acute findings. Electronically Signed: Ephraim Martin MD at 15:49 EDT , Shoulder X-Ray 02/14/24 15:19 IMPRESSION: Negative left shoulder x-rays. Electronically Signed: Ephraim Martin MD at 16:29 EDT , Hip/Pelvis X-Ray 02/14/24 15:50 IMPRESSION: No acute findings in the pelvis or left hip. Electronically Signed: Ephraim Martin MD at 16:30 EDT , Chest X-Ray 02/14/24 16:01 IMPRESSION: There are no acute findings. Electronically Signed: Ephraim Martin MD at 16:37 EDT , Lower Extremity CT 02/14/24 16:39 IMPRESSION: 1. Soft tissue edema or ecchymosis along the left hip. 2. Acute slightly displaced fracture of the left greater trochanter. Electronically Signed: Ephraim Martin MD at 17:04 EDT , Assessment & Plan Assessment/Plan (1) Inability to ambulate due to hip: PLAN: Plan 63-year-old gentleman with prior history of rectal carcinoma, dyslipidemia, obesity, presents following a fall and now with a displaced left greater trochanter fracture, injury to his left shoulder and inability to take care of himself at home. There are no concerns regarding head injury or trauma at this time. #Hip fracture: -Orthopedic consult -Pain management with oxycodone, Tylenol -PT/OT evaluation -Case management for disposition -Evaluation acute rehab/SNF placement #Left shoulder pain: -PT OT evaluation -Pain control as above #Hypertension: Continue benazepril 20 mg daily #A-fib: -Continue diltiazem 350 -Continue warfarin as home medication, monitor INR #History of pulmonary embolism: Not requiring any supplemental oxygen at this time, continue warfarin #Heart failure: Continue furosemide 40 mg daily, no changes functional status, follow-up with outpatient cardiology #GERD: Continue omeprazole 20 mg daily #Dyslipidemia-continue Crestor 40 g daily #Depression continue sertraline 50 mg daily #DVT/PE continue warfarin 3 mg daily, monitor INR Charges/Coding Visit Charges Inpatient E&M: 97412 Init Hosp L2
[2024-02-14 17:39] LABS: International Normalized Ratio 2.5; Prothrombin Time (Protime)PT. 26.9 SECONDS (11.7-14.9)
[2024-02-14] MEDS: oxyCODONE 5 MG Tablet PO (22:45)
[2024-02-14] MEDS: Acetaminophen 325 MG Tablet 650 MG PO (22:45)
[2024-02-15 06:00] VITALS: BP 101/56; PULSE 64; RESP 18; TEMP 36.5; O2SAT 96
[2024-02-15] MEDS: oxyCODONE 5 MG Tablet PO ×2 (06:11→16:24)
[2024-02-15] MEDS: Acetaminophen 325 MG Tablet 650 MG PO ×2 (06:12→16:23)
[2024-02-15 07:04] LABS: Absolute Neutrophil Count 4.7 X10^3/uL (2.0-7.7); Basophil# 0.04 X10^3/uL; Basophil% 0.6 % (0-1); Eosinophil# 0.34 X10^3/uL; Eosinophils% 5.3 % (0-5); Hematocrit 35.9 % (40-54); Hemoglobin 11.5 g/dL (13.0-16.5); Lymphocyte % 7.8 % (19-41); Mean Platelet Vol. 9.2 fl (6.2-12.0); Monocyte# 0.87 X10^3/uL; Monocyte% 13.5 % (0-10); NRBC Flagged by Analyzer 0 % (0-5); Neutrophil # 4.66 X10^3/uL (2.7-7.7); Neutrophil % 72.5 % (47-70); POSITIVE DIFFERENTIAL YES; Platelet Count 227 K/mm3 (150-450); RBC Distribution Width CV 12.9 % (11.6-14.6); RBC Distribution Width SD 47.7 fl (35.1-43.9); Red Blood Count 3.59 M/mm3 (4.6-6.2); White Blood Count 6.4 K/mm3 (4.4-11.0)
[2024-02-15 07:27] LABS: International Normalized Ratio 2.5; Prothrombin Time (Protime)PT. 27.2 SECONDS (11.7-14.9)
[2024-02-15 07:33] LABS: ALB/GLOB Ratio 0.9 RATIO (0.9-2.4); AST(SGOT) 17 U/L (15-37); Alanine Aminotransfer ALT/SGPT 22 U/L (16-61); Alkaline Phosphatase 93 U/L (45-117); Anion Gap 5 (5-15); BUN 20 mg/dL (7-18); BUN/Creat Ratio 23.6 RATIO (10-20); Bilirubin, Direct 0.19 mg/dL (0.00-0.30); Calcium,Total 8.2 mg/dL (8.5-10.1); Chloride 108 mmol/L (98-107); Creatinine, Serum 0.85 mg/dL (0.70-1.30); EST Glomerular Filtration Rate 96 mL/min (>60); Est Glom Filt Rate - Afr Amer 117 mL/min (>60); Estimated Creatinine Clearance 123.26 ml/min; Globulin 3.5 g/dL (2.2-4.2); Glucose 108 mg/dL (74-106); Magnesium 2.3 mg/dL (1.6-2.6); Potassium 3.5 mmol/L (3.5-5.1); Protein, Total 6.5 g/dL (6.4-8.2); Sodium Level 139 mmol/L (136-145); Thyroid Stim Hormone (TSH) 2.13 uIU/mL (0.358-3.74)
[2024-02-15] MEDS: Aspirin E.C. 81 MG Tablet PO (07:47)
[2024-02-15] MEDS: dilTIAZem CD 300 MG Capsule PO (07:47)
[2024-02-15] MEDS: Sertraline 50 MG Tablet PO (07:48)
[2024-02-15] MEDS: Lisinopril 20 MG Tablet PO (07:48)
[2024-02-15] MEDS: Furosemide 40 MG Tablet PO (07:48)
--- NOTE | 2024-02-15 08:27 | PN.HOSP_ITS ---
Reason for Visit Reason for Visit: Diagnoses Difficulty in walking, not elsewhere classified (02/14/24) Objective Data Objective Data Vital Signs: Vital Signs Temp Pulse Resp BP Pulse Ox O2 Del Method 97.7 F L 64 18 101/56 L 96 Room Air 02/15/24 06:00 02/15/24 06:00 02/15/24 06:00 02/15/24 06:00 02/15/24 06:00 02/15/24 07:37 Oxygen Delivery Method Room Air Weight: 138.5 kg Body Mass Index (BMI) 42.5 Lab / Micro Data 02/15/24 06:35 02/15/24 06:35 Labs: Laboratory Results - last 24 hr 02/14/24 16:45: WBC 8.7, RBC 3.65 L, Hgb 11.7 L, Hct 35.9 L, MCV 98.4 H, MCH 32.1 H, MCHC 32.6, RDW Std Deviation 45.5 H, RDW Coeff of [place] 12.7, Plt Count 235, MPV 9.1, Immature Gran % (Auto) 0.500, Neut % (Auto) 83.2 H, Lymph % (Auto) 4.8 L, [place] % (Auto) 9.6, Eos % (Auto) 1.4, Baso % (Auto) 0.5, Absolute Neuts (auto) 7.3, Absolute Lymphs (auto) 0.42 L, Nucleated RBC % 0, Sodium 139, P otassium 3.4 L, Chloride 107, Carbon Dioxide 25.0, Anion Gap 7, BUN 24 H, Creatinine 0.95, Estim Creat Clear Calc 110.29, Est GFR (MDRD) Af Amer 102, Est GFR (MDRD) Non-Af 85, BUN/Creatinine Ratio 25.3 H, Glucose 133 H, Calcium 8.8 02/14/24 17:20: PT 26.9 H, INR 2.5 02/15/24 06:35: WBC 6.4, RBC 3.59 L, Hgb 11.5 L, Hct 35.9 L, MCV 100.0 H, MCH 32.0, MCHC 32.0, RDW Std Deviation 47.7 H, RDW Coeff of [place] 12.9, Plt Count 227, MPV 9.2, Immature Gran % (Auto) 0.300, Neut % (Auto) 72.5 H, Lymph % (Auto) 7.8 L, [place] % (Auto) 13.5 H, Eos % (Auto) 5.3 H, Baso % (Auto) 0.6, Absolute Neuts (auto) 4.7, Absolute Lymphs (auto) 0.50 L, Nucleated RBC % 0, PT 27.2 H, INR 2.5, Sodium 139, Potassium 3.5, Chloride 108 H, Carbon Dioxide 26.0, Anion Gap 5, BUN 20 H, Creatinine 0.85, Estim Creat Clear Calc 123.26, Est GFR (MDRD) Af Amer 117, Est GFR (MDRD) Non-Af 96, BUN/Creatinine Ratio 23.6 H, Glucose 108 H, Calcium 8.2 L, Phosphorus 3.0, Magnesium 2.3, Total Bilirubin 0.50, Direct Bilirubin 0.19, AST 17, ALT 22, Alkaline Phosphatase 93, Total Protein 6.5, A lbumin 3.0 L, Globulin 3.5, Albumin/Globulin Ratio 0.9, TSH 2.13 Radiography Diagnostic Testing: Radiology Impression Brain CT 02/14/24 15:19 IMPRESSION: There are no acute intracranial findings. Electronically Signed: Ephraim Martin MD at 15:50 EDT , Cervical Spine CT 02/14/24 15:19 IMPRESSION: Degenerative changes of the cervical spine. There are no acute findings. Electronically Signed: Ephraim Martin MD at 15:49 EDT , Shoulder X-Ray 02/14/24 15:19 IMPRESSION: Negative left shoulder x-rays. Electronically Signed: Ephraim Martin MD at 16:29 EDT , Hip/Pelvis X-Ray 02/14/24 15:50 IMPRESSION: No acute findings in the pelvis or left hip. Electronically Signed: Ephraim Martin MD at 16:30 EDT , Chest X-Ray 02/14/24 16:01 IMPRESSION: There are no acute findings. Electronically Signed: Ephraim Martin MD at 16:37 EDT , Lower Extremity CT 02/14/24 16:39 IMPRESSION: 1. Soft tissue edema or ecchymosis along the left hip. 2. Acute slightly displaced fracture of the left greater trochanter. Electronically Signed: Ephraim Martin MD at 17:04 EDT , Assessment & Plan Assessment/Plan (1) Inability to ambulate due to hip: PLAN: Plan Patient is a 63-year-old gentleman with multiple comorbidities who presented with a fall. Imaging studies obtained on admission demonstrated acute slightly displaced fracture of the left greater trochanter. 1. Fall with Acute slightly displaced fracture of the left greater trochanter. ?Case was apparently discussed with Dr. Aguila Kumari from the emergency department and per documentations from the ED attending he recommended a nonsurgical approach. Patient has been admitted to regular nursing floor requested for PT OT eval, pain management with consultation placed to Dr. Kumari 2. Physical debility with left hip fracture as well as left shoulder contusion - Requested for PT OT eval and secondary social studies teacher to assist with discharge planning 3. Hypertension - Blood pressure controlled, home medications continued with dose adjustment as needed 4. Paroxysmal A-fib ? Rate controlled on diltiazem on systemic anticoagulation with warfarin with a therapeutic INR. Daily monitoring of INR ordered 5. History of pulmonary embolism ? Patient is on systemic anticoagulation with warfarin with a therapeutic INR 6. Class III obesity with BMI of 42.6 ? Complicating care weight loss advised 7. History of rectal CA ? Treated with Xeloda and radiation therapy. Patient is followed by [facility] oncology 8. Obstructive sleep apnea ? Consistent use of PAP therapy encourage 9. Chronic congestive heart failure with preserved ejection fraction ? Currently euvolemic patient is on furosemide continued 10. Degenerative joint disease ? Symptomatic treatment 11. Depression ? Patient is on sertraline continue 12. DVT prophylaxis ? Patient is on warfarin Time spent in the patient's overall evaluation,decision-making process, review of diagnostic data, adjustment of management, discussion with other providers, nursing nursing and ancillary staff involved in patient's care documentation, 52 Minutes Advance planning; did discuss with the patient and family regarding advanced directives as well as CODE STATUS. Did explain the various scenarios involved ( FULL CODE, DNR CCA, DNR CCA with no intubation, and DNR CC and what each meant) patient elected to remain full code with CPR and intubation if needed. Order was placed. Time spent on discussion 18 minutes. Charges/Coding Visit Charges Inpatient E&M: 32505 Subs Hosp L3 Procedures Hospitalists Procedures: 71312 Advncd Care Plan 30 Min
--- NOTE | 2024-02-15 10:31 | CASEMGMT ---
Discharge Planning A list of SNF providers including quality and resource use data and consistent with the patient's preferred geographic region, medical needs, and insurance network was created in [employer] Guide.? This list was provided to the SW. Jennifer Escobar Discharge Planning Asst.
[2024-02-15 11:15] VITALS: BP 121/58; PULSE 66; RESP 18; TEMP 36.5; O2SAT 99
--- NOTE | 2024-02-15 13:20 | CASEMGMT ---
OLY KAN Assessment: Face to Face with pt for initial transition planning/care coordination assessment. OLY KAN introduced self and role at [facility], pt voices understanding and consents to assessment. Pt sitting up in bed in no distress, sitting at bedside. Pt is A&O x4 and answers all questions appropriately at this time. Care providers, pharmacy, and demographics verified/updated. Admitting Dx: Acute Fall PCP: Temi Specialists: Marge Rodriguez - Professor Of Nursing, José Luis - Pain management, Robert - Ortho, Liseth - Radiation Onc., Dipak - Oncology, Dung - [employer] Engagement Planning Operator, Ronla - [facility]. Preferred Pharmacy: [facility] Insurance: Medicare, [employer] Prescription Benefit: yes LNOK: Myriam - , 2 adult children Living Arrangements: Pt lives with and son in a ranch home with 2 steps to enter. Pt states I with ADLs and IADLs prior to fall and injury. Transportation: Pt drives self, able to transport pt until he can drive again. DME:BIPAP, 2 walkers available but does not use at baseline. HHC/SNF: Denies Hx of Provided pt with information regarding RU, SNF, HHC and Outpatient services. Pt made aware for Medicare's 3 midnight in-patient stay to qualify for SNF. Pt states no further concerns/needs. CM or SW to follow. Advised pt to ask CM if any further question/concerns/needs arise, voices understanding. Pt Goal: TBD Plan: TBD will follow therapy and ortho consult. Arvind ALDRIDGE CM
[2024-02-15 14:48] VITALS: BP 111/60; PULSE 67; RESP 18; TEMP 36.3; O2SAT 96
--- NOTE | 2024-02-15 17:34 | NURSING ---
SPOKE W/DR Cassius GUSTAFSON TO SEE IF HE WAS GOING TO BE SEEING PT D/T CONSULT FROM ER IN COMPUTER. DR GUSTAFSON STATES THAT HE WAS NOT EVEN MADE AWARE THAT PT WAS ADMITTED BUT THAT HE HAD TOLD THE DR LAST NIGHT THAT THIS WAS NONSURGICAL (HE WAS TOLD IT WAS NONDISPLACED GREATER TROCHANTER FX). PER THE ORDER OF THE CONSULT, THIS IS A DISPLACED FX. DR GUSTAFSON SAID IT WOULD STILL NOT BE SURGICAL, PT WOULD NEED WALKER OR SUCH TO ENABLE HIM TO AMBULATE AND HE COULD F/U AT HIS OFFICE. DR GUSTAFSON WAS GOING TO REVIEW THE SCANS AT THIS TIME.
--- NOTE | 2024-02-15 17:37 | CASEMGMT ---
OLY KAN NOTE: Therapy notes reviewed. Pt able to ambulate 35 ft w/use of WW and SBA. OP therapy recommended. Shower chair also recommended. OLY KAN to room. Pt sitting up in chair in room. and another visitor @ bedside. Discussed therapy's eval and pt's wishes. He states he feels safe to discharge home. Discussed HHC and OP therapy in further detail and questions answered. Pt states he prefers to do OP therapy. Made aware a script can be provided and he can take to location of choice. Script prepared and placed on chart. MD to sign and to be given to pt prior to discharge. Pt and confirm he does have a walker @ home to use. Made aware [facility] does not cover for shower chairs and verbal list given re: places one can be purchased from. Also given [employer] on-line store information. Pt states therapy has not worked w/him on steps yet, but states he was able to navigate them (with some difficulty) after injury prior to coming to [facility]. He states he also was able to maneuver in/out of vehicle. Pt inquiring if it is an option to have surgery vs medical mgnt and what pro's/cons are re: if he would or would not have surgery. Loren, fire extinguisher charger, made aware of pt's questions. He denies having other discharge needs at this time. Julian VINCENT RN, CM
[2024-02-15 20:31] VITALS: BP 132/69; PULSE 73; RESP 18; TEMP 36.6; O2SAT 94
[2024-02-15] MEDS: Atorvastatin Calcium 10 MG Tablet PO (20:35)
[2024-02-16 03:51] VITALS: BP 124/79; PULSE 72; RESP 18; TEMP 36.6; O2SAT 96
[2024-02-16] MEDS: oxyCODONE 5 MG Tablet PO (03:56)
[2024-02-16] MEDS: Acetaminophen 325 MG Tablet 650 MG PO (03:56)
[2024-02-16 06:38] LABS: Absolute Lymphocyte Count 0.88 X10^3/uL (0.83-4.51); Basophil# 0.07 X10^3/uL; Basophil% 0.8 % (0-1); Eosinophil# 0.74 X10^3/uL; Eosinophils% 8.5 % (0-5); Hematocrit 40.6 % (40-54); Hemoglobin 12.6 g/dL (13.0-16.5); Lymphocyte # 0.88 X10^3/ul (0.83-4.51); Lymphocyte % 10.1 % (19-41); Mean Corpuscular Hgb 31.4 pg (27.0-32.0); Mean Corpuscular Volume 101.2 fL (80-94); Mean Platelet Vol. 9.1 fl (6.2-12.0); Monocyte# 1.04 X10^3/uL; Monocyte% 11.9 % (0-10); NRBC Flagged by Analyzer 0 % (0-5); Neutrophil # 5.95 X10^3/uL (2.7-7.7); Neutrophil % 68.2 % (47-70); Platelet Count 281 K/mm3 (150-450); RBC Distribution Width CV 12.9 % (11.6-14.6); Red Blood Count 4.01 M/mm3 (4.6-6.2); White Blood Count 8.7 K/mm3 (4.4-11.0)
[2024-02-16 07:29] LABS: Anion Gap 13 (5-15); BUN 22 mg/dL (7-18); BUN/Creat Ratio 23.9 RATIO (10-20); Calcium,Total 8.9 mg/dL (8.5-10.1); Chloride 104 mmol/L (98-107); Creatinine, Serum 0.92 mg/dL (0.70-1.30); EST Glomerular Filtration Rate 87 mL/min (>60); Est Glom Filt Rate - Afr Amer 106 mL/min (>60); Estimated Creatinine Clearance 113.88 ml/min; Glucose 106 mg/dL (74-106); Magnesium 2.3 mg/dL (1.6-2.6); Phosphorus 2.6 mg/dL (2.5-4.9); Potassium 3.3 mmol/L (3.5-5.1); Sodium Level 138 mmol/L (136-145)
[2024-02-16 09:50] VITALS: BP 131/66; PULSE 76; RESP 16; TEMP 37; O2SAT 94
--- NOTE | 2024-02-16 09:50 | DS.PCM_ITS ---
Providers Date of Admission: 02/14/24 Date of Discharge: 02/16/24 Primary Care Physician: Dr. Hao Membreno MD Consultations 02/14/24 19:09 Consult: Orthopedics Routine Consulting Provider: Aguila Kumari Reason for Consult: Displaced greater trochanter fracture EMERGENT Consult: Yes Notified: Yes Date Notified: 02/14/24 Time Notified: 18:35 Method of Notification: ED Physician Initiated Reason For Visit: ACUTE FALL Diagnosis Discharge Diagnosis (1) Inability to ambulate due to hip: Status: Acute Code(s): R26.2 - Difficulty in walking, not elsewhere classified Plan Patient is a 63-year-old gentleman with multiple comorbidities who presented with a fall. Imaging studies obtained on admission demonstrated acute slightly displaced fracture of the left greater trochanter. 1. Fall with Acute slightly displaced fracture of the left greater trochanter. ?Case was apparently discussed with Dr. Aguila Kumari from the emergency department and per documentations from the ED attending he recommended a nonsurgical approach. Patient has been admitted to regular nursing floor requested for PT OT eval, pain management with consultation placed to Dr. Kumari ?02/16/2024 Dr. Kumari recommended conservative management patient was discharged home to follow-up with Dr. Montilla as outpatient and also for outpatient PT 2. Physical debility with left hip fracture as well as left shoulder contusion - Requested for PT OT eval and criminal justice social worker to assist with discharge planning 3. Hypertension - Blood pressure controlled, home medications continued with dose adjustment as needed 4. Paroxysmal A-fib ? Rate controlled on diltiazem on systemic anticoagulation with warfarin with a therapeutic INR. Daily monitoring of INR ordered 5. History of pulmonary embolism ? Patient is on systemic anticoagulation with warfarin with a therapeutic INR 6. Class III obesity with BMI of 42.6 ? Complicating care weight loss advised 7. History of rectal CA ? Treated with Xeloda and radiation therapy. Patient is followed by [facility]ology 8. Obstructive sleep apnea ? Consistent use of PAP therapy encourage 9. Chronic congestive heart failure with preserved ejection fraction ? Currently euvolemic patient is on furosemide continued 10. Degenerative joint disease ? Symptomatic treatment 11. Depression ? Patient is on sertraline continue 12. DVT prophylaxis ? Patient is on warfarin Time spent in the patient's overall evaluation,decision-making process, review of diagnostic data, adjustment of management, discussion with other providers, nursing nursing and ancillary staff involved in patient's care documentation, 35 minutes Medications at Discharge Home Medications cholecalciferol (vitamin D3) 50 mcg (2,000 unit) capsule 2,000 unit PO DAILY supplement 06/16/19 furosemide 40 mg tablet 40 mg PO DAILY diuretic 06/16/19 benazepril 20 mg tablet 20 mg PO DAILY blood pressure 01/09/21 sertraline 50 mg tablet 50 mg PO DAILY depression 01/09/21 omeprazole 20 mg capsule,delayed release 20 mg PO Q OTHER DAY PRN GERD 10/25/21 diltiazem HCl 300 mg capsule,extended release 24 hr 300 mg PO DAILY heart #90 caps 04/30/23 aspirin 81 mg tablet,delayed release (Enteric Coated Aspirin) 81 mg PO DAILY heart #90 tabs 01/15/24 warfarin 3 mg tablet (Jantoven) 3 mg PO DAILY blood thinner #90 tabs 01/19/24 rosuvastatin 5 mg tablet (Crestor) 5 mg PO Q OTHER DAY cholesterol #45 tabs 01/22/24 diclofenac sodium 1 % topical gel 2 g topical BID pain 02/14/24 warfarin 5 mg tablet 5 mg PO DAILY blood thinner 02/14/24 oxycodone 5 mg tablet 5 mg PO Q4H PRN PRN Pain Score 4-10 5 days #20 tabs 02/16/24 Physical Exam Narrative GENERAL: cooperative HEENT: Atraumatic; normocephalic EYES; Anicteric, Normal Conjunctiva NECK; supple, normal thyroid, RESPIRATORY: Diminished to auscultation CARDIOVASCULAR: Regular S1 S2, GI: soft, normoactive bowel sounds, : No Renal angle tenderness; EXTREMITIES: No edema, no clubbing, MUSCULOSKELETAL: no muscle wasting NEURO: Awake; no lateralizing signs. SKIN: No Rash PSYCH; Flat affect Weight / BMI Weight Weight: 138.5 kg Body Mass Index (BMI) 42.5 ABG / Lab / Microbiology Data 02/16/24 06:27 02/16/24 06:27 Laboratory: Laboratory Results - last 24 hr 02/16/24 06:27: WBC 8.7, RBC 4.01 L, Hgb 12.6 L, Hct 40.6, MCV 101.2 H, MCH 31.4, MCHC 31.0 L, RDW Std Deviation 48.0 H, RDW Coeff of [place] 12.9, Plt Count 281, MPV 9.1, Immature Gran % (Auto) 0.500, Neut % (Auto) 68.2, Lymph % (Auto) 10.1 L, [place] % (Auto) 11.9 H, Eos % (Auto) 8.5 H, Baso % (Auto) 0.8, Absolute Neuts (auto) 6.0, Absolute Lymphs (auto) 0.88, Nucleated RBC % 0, Sodium 138, P otassium 3.3 L, Chloride 104, Carbon Dioxide 21.0, Anion Gap 13, BUN 22 H, Creatinine 0.92, Estim Creat Clear Calc 113.88, Est GFR (MDRD) Af Amer 106, Est GFR (MDRD) Non-Af 87, BUN/Creatinine Ratio 23.9 H, Glucose 106, Calcium 8.9, Phosphorus 2.6, Magnesium 2.3 D/C Instructions Discharge Diet: No restrictions Discharge Activity: Use Walker Call your doctor if you observe: Fever of 101 or Higher, Shortness of breath, Fainting spells and Chest pain Meaningful Use Info Meaningful Use Meaningful Use Diagnoses (Choose all that apply): None applicable Ischemic Stroke Statin Dosing Therapy Reference: STATIN DOSE THERAPY REFERENCE: * Patients > 75 years receive moderate or high dose statin therapy. * Patients 75 years or YOUNGER should receive HIGH intensity statin dose unless contraindicated. You will be required to document reason for non-treatment if statin daily dose does not meet guidelines. HIGH DOSE STATIN THERAPY DAILY Atorvastatin > than or = to 40 mg Rosuvastatin > than or = to 20 mg Amlodipine + Atorvastatin > than or = to 2.5/40 mg Ezetimibe + Simvastatin 10/80 mg Simvastatin 80mg Discharge Plan Admission Admit Date/Time: 02/14/24 17:37 Attending Provider: Sidney Dominguez Primary Care Provider: Hao Membreno Consulting Providers: Campbell Oseguera; Aguila Kumari Discharge Orders/Prescriptions Prescriptions: New oxycodone 5 mg Tablet 5 mg PO Q4H PRN PRN (Reason: Pain Score 4-10) 5 Days Qty: 20 0RF Continued benazepril 20 mg tablet 20 mg PO DAILY Patient Comments: TAKE 1 TABLET BY MOUTH EVERY DAY sertraline 50 mg tablet 50 mg PO DAILY cholecalciferol (vitamin D3) 2,000 UNIT capsule 2,000 unit PO DAILY omeprazole 20 mg capsule,delayed release(DR/EC) 20 mg PO Q OTHER DAY PRN (Reason: GERD) warfarin 5 mg tablet 5 mg PO DAILY Protocol: Dose Management Condition: Thursday Dose/Route: 8 mg Instruction: 1 x 3 mg tablet, 1 x 5 mg tablet Condition: Thursday Dose/Route: 8 mg Instruction: 1 x 3 mg tablet, 1 x 5 mg tablet Condition: Thursday Dose/Route: 8 mg Instruction: 1 x 3 mg tablet, 1 x 5 mg tablet Condition: Thursday Dose/Route: 8 mg Instruction: 1 x 3 mg tablet, 1 x 5 mg tablet Condition: Dose/Route: 8 mg Instruction: 1 x 3 mg tablet, 1 x 5 mg tablet Condition: Thursday Dose/Route: 8 mg Instruction: 1 x 3 mg tablet, 1 x 5 mg tablet Condition: Thursday Dose/Route: 8 mg Instruction: 1 x 3 mg tablet, 1 x 5 mg tablet Protocol Text: Adjustment Start Date: Thursday02/03/24 INR Value: 2.5 INR Date: 02/03/24 Recheck Date: 03/02/24 Rx Instructions: 5 mg oral +3mg daily = 8mg daily diclofenac sodium 1 % gel 2 g topical BID Rx Instructions: 2 G TOPICALLY TWICE A DAY APPLY TO HANDS AND FEET TWICE DAILY furosemide 40 mg tablet 40 mg PO DAILY diltiazem HCl 300 mg capsule,extended release 24hr 300 mg PO DAILY Qty: 90 3RF aspirin [Enteric Coated Aspirin] 81 mg tablet,delayed release (DR/EC) 81 mg PO DAILY Qty: 90 3RF warfarin [Jantoven] 3 mg tablet 3 mg PO DAILY Qty: 90 3RF Protocol: Dose Management Condition: Thursday Dose/Route: 8 mg Instruction: 1 x 3 mg tablet, 1 x 5 mg tablet Condition: Thursday Dose/Route: 8 mg Instruction: 1 x 3 mg tablet, 1 x 5 mg tablet Condition: Thursday Dose/Route: 8 mg Instruction: 1 x 3 mg tablet, 1 x 5 mg tablet Condition: Thursday Dose/Route: 8 mg Instruction: 1 x 3 mg tablet, 1 x 5 mg tablet Condition: Dose/Route: 8 mg Instruction: 1 x 3 mg tablet, 1 x 5 mg tablet Condition: Thursday Dose/Route: 8 mg Instruction: 1 x 3 mg tablet, 1 x 5 mg tablet Condition: Thursday Dose/Route: 8 mg Instruction: 1 x 3 mg tablet, 1 x 5 mg tablet Protocol Text: Adjustment Start Date: Thursday02/03/24 INR Value: 2.5 INR Date: 02/03/24 Recheck Date: 03/02/24 rosuvastatin [Crestor] 5 mg tablet 5 mg PO Q OTHER DAY Qty: 45 3RF Referrals / Follow Up: Hao Membreno MD [Primary Care Provider] - Within 2 Weeks Aguila Kumari MD [Med Staff - Active Staff] - Within 1 Week Disposition Disposition (needs filled in before D/C Order can be placed): Home Health Service Charges/Coding Visit Charges Inpatient E&M: 29493 Disch Hosp >30min
--- NOTE | 2024-02-16 09:55 | PCA ---
Addendum entered by María Keith 02/16/24 09:57: Patient and aware of this and will be expecting phone call. Original Note: Call placed to Dr. Kumari (ortho) to make follow up appointment. Office is unsure when they can get patient in because their schedule is pretty full, office aware to call patient back for appointment.
[2024-02-16] MEDS: dilTIAZem CD 300 MG Capsule PO (10:38)
[2024-02-16] MEDS: Pantoprazole Sodium 20 MG Tablet PO (10:39)
[2024-02-16] MEDS: Lisinopril 20 MG Tablet PO (10:39)
[2024-02-16] MEDS: Sertraline 50 MG Tablet PO (10:39)
[2024-02-16] MEDS: Potassium Chloride Oral Tablet 20 MEQ 40 MEQ PO (10:39)
[2024-02-16] MEDS: Furosemide 40 MG Tablet PO (10:39)
[2024-02-16] MEDS: Aspirin E.C. 81 MG Tablet PO (10:39)
--- NOTE | 2024-02-16 10:56 | CASEMGMT ---
OLY KAN NOTE: Discharge order is in. RN CM to room. Pt sitting up in chair, @ bedside. Pt confirms he is comfortable w/discharging home and wants to do OP therapy. Script obtained from Dr Dominguez and provided to pt and and they are aware pt can go to OP center of his choice and verbal list reviewed again of local OP centers. They voice appreciation. states they have ordered a shower chair and it will be delivered tomorrow. Pt wishes to work w/therapy today on steps and in/out of vehicle prior to discharging. Call to therapy and they were made aware. Pt and state they have an appt scheduled w/Dr Aguila Kumari for Wed @ 3 PM. This was added in pt's discharge plan. Pt inquired if he should wait to start therapy until he sees Dr Aguila Kumari. OLY KAN advised he call Dr Kumari's office to inquire about this, as Dr Kumari has reviewed his x-ray @ [facility] and will be f/u with him as an OP. Oxy Rx has been sent to [facility] retail pharmacy. Pt/ would like it delivered to his room. Call to pharmacy and they were notified. Pt would like to shower prior to discharging home. SET UP TECHNICIAN's and RN, Miranda, made aware. Pt and deny having other discharge needs/concerns. Julian VINCENT RN, CM
--- NOTE | 2024-02-16 16:48 | PHA.DC.MR.R ---
Pharmacy [place] Med Reconciliation Pharmacy Service has performed discharge medication reconciliation for this patient. Medication education papers prepared, patient discharged when counseling was attempted. Medications reviewed. The patient's discharge medication list was reviewed for discrepancies and discrepancies were resolved. Medications at Discharge Home Medications cholecalciferol (vitamin D3) 50 mcg (2,000 unit) capsule 2,000 unit PO DAILY supplement 06/16/19 furosemide 40 mg tablet 40 mg PO DAILY diuretic 06/16/19 benazepril 20 mg tablet 20 mg PO DAILY blood pressure 01/09/21 sertraline 50 mg tablet 50 mg PO DAILY depression 01/09/21 omeprazole 20 mg capsule,delayed release 20 mg PO Q OTHER DAY PRN GERD 10/25/21 diltiazem HCl 300 mg capsule,extended release 24 hr 300 mg PO DAILY heart #90 caps 04/30/23 aspirin 81 mg tablet,delayed release (Enteric Coated Aspirin) 81 mg PO DAILY heart #90 tabs 01/15/24 warfarin 3 mg tablet (Jantoven) 3 mg PO DAILY blood thinner #90 tabs 01/19/24 rosuvastatin 5 mg tablet (Crestor) 5 mg PO Q OTHER DAY cholesterol #45 tabs 01/22/24 diclofenac sodium 1 % topical gel 2 g topical BID pain 02/14/24 warfarin 5 mg tablet 5 mg PO DAILY blood thinner 02/14/24 oxycodone 5 mg tablet 5 mg PO Q4H PRN PRN Pain Score 4-10 5 days #20 tabs 02/16/24
== END 2024-02-16 12:46 | disposition home or self-care (01) | DRG 536 ==
LOC: ED 17:34 → MS3 17:43
PROVIDERS: Nurse Practitioner; Admitting Provider Internal Medicine; Emergency Provider Emergency Medicine; PCP Family Medicine; Visit Provider Internal Medicine
DX: S72.112A Displaced fracture of greater trochanter of left femur, initial encounter for closed fracture (principal); I50.32 Chronic diastolic (congestive) heart failure; Z68.41 Body mass index [BMI] 40.0-44.9, adult; S09.90XA Unspecified injury of head, initial encounter; I11.0 Hypertensive heart disease with heart failure; I48.0 Paroxysmal atrial fibrillation; E66.01 Morbid (severe) obesity due to excess calories; F32.A Depression, unspecified; R26.2 Difficulty in walking, not elsewhere classified; E78.5 Hyperlipidemia, unspecified; K21.9 Gastro-esophageal reflux disease without esophagitis; S46.912A Strain of unspecified muscle, fascia and tendon at shoulder and upper arm level, left arm, initial encounter; G47.33 Obstructive sleep apnea (adult) (pediatric); M19.90 Unspecified osteoarthritis, unspecified site; S40.012A Contusion of left shoulder, initial encounter; Z86.16 Personal history of COVID-19; Z82.3 Family history of stroke; Z79.01 Long term (current) use 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s; Z79.82 Long term (current) use of aspirin; Z66 Do not resuscitate; Z86.711 Personal history of pulmonary embolism; Z85.048 Personal history of other malignant neoplasm of rectum, rectosigmoid junction, and anus
CPT/HCPCS: 36415; 36591; 70450; 71045; 72125; 73030; 73502; 73700; 80048; 80053; 80076; 83735; 84100; 84443; 85025; 85610; 97162; 97166; 97530; 97535; 99285; A4216; J2405

== ENCOUNTER 2024-03-03 11:41 | Outpatient (CLI) | payer MEDICARE, OTHER, SELFPAY ==
[2024-03-03 12:26] LABS: International Normalized Ratio 2.2; Prothrombin Time (Protime)PT. 24.3 SECONDS (11.7-14.9)
== END 2024-03-03 23:59 | disposition home or self-care (01) ==
LOC: MEDOUTP 11:42
PROVIDERS: Nurse Practitioner Family; PCP Family Medicine; Visit Provider Internal Medicine Cardiovascular Disease
DX: I48.0 Paroxysmal atrial fibrillation (principal); Z79.01 Long term (current) use 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s
CPT/HCPCS: 36591; 85610; A4216

== ENCOUNTER 2024-03-23 14:17 | Emergency (ER) | payer MEDICARE, OTHER, SELFPAY ==
[2024-03-23 14:18] VITALS: BP 146/84; PULSE 134; RESP 16; TEMP 36.1; O2SAT 96; BMI 42.0
[2024-03-23 15:13] LABS: Absolute Lymphocyte Count 0.44 X10^3/uL (0.83-4.51); Absolute Neutrophil Count 5.6 X10^3/uL (2.0-7.7); Basophil# 0.04 X10^3/uL; Basophil% 0.6 % (0-1); Eosinophil# 0.23 X10^3/uL; Eosinophils% 3.3 % (0-5); Hematocrit 37.2 % (40-54); Lymphocyte # 0.44 X10^3/ul (0.83-4.51); Lymphocyte % 6.3 % (19-41); Mean Corp Hgb Conc 32.3 g/dL (32-36); Mean Corpuscular Hgb 29.9 pg (27.0-32.0); Mean Corpuscular Volume 92.8 fL (80-94); Mean Platelet Vol. 8.9 fl (6.2-12.0); Monocyte# 0.72 X10^3/uL; Monocyte% 10.3 % (0-10); NRBC Flagged by Analyzer 0 % (0-5); Neutrophil # 5.57 X10^3/uL (2.7-7.7); Neutrophil % 79.2 % (47-70); POSITIVE DIFFERENTIAL YES; Platelet Count 242 K/mm3 (150-450); RBC Distribution Width CV 13.2 % (11.6-14.6); RBC Distribution Width SD 45.4 fl (35.1-43.9); Red Blood Count 4.01 M/mm3 (4.6-6.2)
[2024-03-23 15:29] LABS: Color, Urine Yellow (Yellow); Glucose, Dipstick Normal (Normal); Ketone-Dipstick Negative (Negative); Leukocyte Esterase-Dipstick 25 /ul (Negative); Nitrite-Dipstick Negative (Negative); Occult Blood-Urine 250 /ul (Negative); Protein-Dipstick 30 mg/dl (Negative); Specific Gravity, Urine 1.025 (1.002-1.030); Urine Bilirubin Dipstick Negative (Negative); Urine Clarity Sl. Cloudy (Clear); Urine Urobilinogen 1 mg/dl (Normal)
--- NOTE | 2024-03-23 15:41 | CT_ITS ---
STUDY: CT ABDOMEN AND PELVIS WITHOUT CONTRAST REASON FOR EXAM: Male, 63 years old. left flank pain RADIATION DOSAGE (If Supplied By Facility): CTDIvol = ( 28.07 ) mGy, DLP = ( 1491.69 ) mGycm TECHNIQUE: Transaxial images were obtained from the dome of the diaphragm to the symphysis pubis without oral contrast, and without intravenous contrast. Sagittal and coronal images were reconstructed. Individualized dose optimization techniques were used for this CT. COMPARISON: November 11, 2023 FINDINGS: Minor subsegmental atelectasis of the left lower lobe.. The visualized portions of the heart are within normal limits. Mild nonspecific fatty infiltrated liver.. Normal gallbladder and extrahepatic biliary system. Normal spleen. Normal pancreas. Normal bilateral adrenal glands. Normal right kidney. No evidence for renal obstruction however there is a tiny calculus in the mid ureter measuring approximately 2 to 3 mm in size.. Normal visualized stomach. Normal small intestine. Diverticular changes of the distal descending colon without evidence for acute diverticulitis.. No evidence for acute appendicitis.. Normal abdominal aorta. Normal inferior vena cava. Normal retroperitoneum. Incompletely distended mildly thick walled bladder likely of no significance. Small fat-containing umbilical hernia. Fat-containing right inguinal hernia. Lumbar spine demonstrates degenerative changes Grade 1 spondylolisthesis at L4-5 CT/Abdomen/Pelvis without Cont IMPRESSION: Tiny nonobstructing calculus in the mid left ureter.. Mild diverticular disease of the descending colon without evidence for acute diverticulitis Electronically Signed: Dale Monahan MD at 16:15 EDT ,
[2024-03-23 15:46] LABS: AST(SGOT) 15 U/L (15-37); Alanine Aminotransfer ALT/SGPT 24 U/L (16-61); Albumin, Serum 3.5 g/dL (3.2-5.0); Alkaline Phosphatase 100 U/L (45-117); Anion Gap 7 (5-15); BUN 25 mg/dL (7-18); BUN/Creat Ratio 22.5 RATIO (10-20); Calcium,Total 9.4 mg/dL (8.5-10.1); Chloride 108 mmol/L (98-107); Creatinine, Serum 1.11 mg/dL (0.70-1.30); EST Glomerular Filtration Rate 71 mL/min (>60); Est Glom Filt Rate - Afr Amer 85 mL/min (>60); Estimated Creatinine Clearance 93.79 ml/min; Globulin 3.5 g/dL (2.2-4.2); Glucose 112 mg/dL (74-106); Potassium 3.5 mmol/L (3.5-5.1); Sodium Level 141 mmol/L (136-145)
--- NOTE | 2024-03-23 15:46 | EX.ED.DYSGE1 ---
HPI History of Present Illness Chief Complaint: Abd Pain Informant: patient and spouse/S.O. Narrative Narrative: 63-year-old male presenting to the emergency room with abdominal pain. Patient states that this morning just before lunch he ate some peanuts and shortly thereafter developed a significant pain in the left inguinal region rating up towards the left flank. States he had some nausea vomiting. He took Tylenol. He notes the pain seems to be significantly better at this time. He has had recent recta cancer diagnosis status post radiation and chemotherapy. He states that his last oncology visit in February he was negative. He has had prior kidney stone. Did not require surgery. He notes his urine is darker than normal. Patient also notes he has a history of diverticulitis that has occasionally been flared up by eating nuts [facility] Medical History Diverticulitis Low back pain Fatigue Dry skin Hypokalemia Thyroid disease History of echocardiogram Cancer Encounter for education Rectal cancer Rectal mass High cholesterol DVT (deep venous thrombosis) Gastric reflux Non-smoker BiPAP (biphasic positive airway pressure) dependence History of edema Cardiology follow-up encounter History of atrial fibrillation History of steroid therapy Hypertension Sinusitis Acute cough COVID-19 Kidney stone [facility] current use 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 Abdominal pain Weight gain with edema Edema Dyspnea on exertion History of venous thromboembolism Pulmonary embolism (06/10/18) CORRINA (obstructive sleep apnea) Afib Asthma Arthritis Hyperlipidemia Gastroesophageal reflux disease Benign essential hypertension Home Medications ?Medication ?Instructions ?Recorded ?Last Taken ?Type cholecalciferol (vitamin D3) 50 2,000 unit PO DAILY supplement 06/16/19 06/16/19 History mcg (2,000 unit) capsule furosemide 40 mg tablet 40 mg PO DAILY diuretic 06/16/19 08/02/23 History benazepril 20 mg tablet 20 mg PO DAILY blood pressure 01/09/21 08/02/23 History sertraline 50 mg tablet 50 mg PO DAILY depression 01/09/21 Unknown History omeprazole 20 mg capsule,delayed 20 mg PO Q OTHER DAY PRN GERD 10/25/21 08/02/23 History release diltiazem HCl 300 mg 300 mg PO DAILY heart #90 caps 04/30/23 08/02/23 Rx capsule,extended release 24 hr aspirin 81 mg tablet,delayed 81 mg PO DAILY heart #90 tabs 01/15/24 Unknown Rx release (Enteric Coated Aspirin) warfarin 3 mg tablet (Jantoven) 3 mg PO DAILY blood thinner #90 01/19/24 Unknown Rx tabs rosuvastatin 5 mg tablet (Crestor) 5 mg PO Q OTHER DAY cholesterol 01/22/24 Unknown Rx #45 tabs diclofenac sodium 1 % topical gel 2 g topical BID pain 02/14/24 Unknown History warfarin 5 mg tablet 5 mg PO DAILY blood thinner 02/14/24 Unknown History oxycodone 5 mg tablet 5 mg PO Q4H PRN PRN Pain Score 02/16/24 Unknown Rx 4-10 5 days #20 tabs ondansetron 4 mg disintegrating 4 mg PO Q6H PRN PRN Nausea #10 tabs 03/23/24 Unknown Rx tablet oxycodone-acetaminophen 5 mg-325 1 - 2 tab (1 - 2 x 5-325 mg) PO 03/23/24 Unknown Rx mg tablet Q6H PRN PRN Pain 3 days #12 TABLETS Allergy/AdvReac Type Severity Reaction Status Date / Time apixaban (From [employer]) AdvReac Severe Pt formed Verified 03/23/24 14:18 PE's in spite of taking routinely simvastatin AdvReac Severe Myalgias Verified 03/23/24 14:18 doxycycline AdvReac Intermediate GI upset Verified 03/23/24 14:18 Family History Mother CAD (coronary artery disease) Diabetes Hypertension Hyperlipidemia Heart disease Father CVA (cerebral vascular accident) Surgical History History of cardiac catheterization History of appendectomy History of colonoscopy (~06/2016) History of left heart catheterization (10/21/18) History of left inguinal hernia repair History of appendectomy History of hip surgery Social History Smoking Status: Never smoker alcohol intake: never substance use type: does not use caffeine: Yes Type: carbonated beverages Number of servings: 1 ROS ROS ED Constitutional Constitutional ED: Denies chills, fever(s) or weight loss Eyes Eyes: Denies change in vision or diplopia ENT ENT ED: Denies ear pain, rhinorrhea or sore throat Cardiovascular Cardiovascular: Denies chest pain, orthopnea, palpitations or racing heartbeat Respiratory/Chest Respiratory/Chest: Denies cough, dyspnea or orthopnea Gastrointestinal Gastrointestinal: Reports abdominal pain, nausea and vomiting; Denies diarrhea Genitourinary Genitourinary ED: Denies dysuria, hematuria or urinary frequency Musculoskeletal Musculoskeletal: Denies arthralgias or myalgias Integumentary Denies abscess or rash Neurologic Neurologic: Denies headache(s) or weakness Psychiatric Psychiatric: Denies anxiety, depression, suicidal ideation or suicidal thoughts Endocrine Endocrinology: Denies polydipsia, polyphagia or polyuria Allergic/Immunologic Allergic/Immunologic ED: Denies mouth swelling, tongue swelling or urticaria EXAM Physical Exam Const Vital Signs: 03/23/24 14:18 03/23/24 16:18 Temperature 97 F L Temperature Source Temporal Pulse Rate 134 H 115 H Respiratory Rate 16 16 Blood Pressure 146/84 H 136/64 H Blood Pressure Mean 104 88 Pulse Ox 96 97 Oxygen Delivery Method Room Air Room Air Positive well nourished and well developed General Appearance ED: well developed HEENT Reports normocephalic, head/scalp atraumatic and moist mucous membranes Eyes PERRL and EOMs intact bilaterally Neck no lymphadenopathy, supple and no JVD Resp normal respiratory effort and clear to auscultation bilaterally Cardio regular rate, regular rhythm and no murmurs GI normal to inspection, nondistended, normoactive bowel sounds and non-tender Palpation: soft Back/Spine no CVA tenderness and normal ROM Extremity normal to inspection General Extremety ED: Negative for edema General Extremity: Negative for edema Neuro oriented x3 and CN's II-XII intact bilaterally Sensorium / Orientation: alert Motor Exam: strength 5/5 throughout Psych mental status grossly normal Mood & Affect: Negative for depressed or tearful Skin no rashes or lesions noted and no wounds MDM MDM MDM Narrative Medical decision making narrative: Differential diagnosis includes but not limited to ureterolithiasis diverticulitis diverticular abscess hernia volvulus small bowel obstruction White count 7.0 with a hemoglobin of 12.0. INR is therapeutic at 2.8. Creatinine is 1.11 urinalysis shows hematuria and 1+ bacteria but 5-10 squamous cells and it is not overtly infected negative nitrates. CT abdomen pelvis demonstrates a 2 to 3 mm mid ureteral stone with some associated hydronephroureter. There is diverticulosis without obvious inflammatory changes to make a diagnosis of diverticulitis and his exam does not support this. Patient did not require any pain or nausea medication here in the department. I reviewed the above results with the patient the diagnosis of kidney stone. I will be writing for pain and nausea medication. I would recommend returning if he is not able to control his pain. Patient noted to be tachycardic and his vital signs. He has a heart rate of 92 on my examination when I speak with him regarding his results at 1635 hrs. History & Record Review Discussion w/independent historian: Patient and Significant other Lab Data Attestation: I reviewed the patient's lab results. Labs: Laboratory Results - last 24 hr 03/23/24 03/23/24 14:55 15:16 WBC 7.0 RBC 4.01 L Hgb 12.0 L Hct 37.2 L MCV 92.8 MCH 29.9 MCHC 32.3 RDW Std Deviation 45.4 H RDW Coeff of [place] 13.2 Plt Count 242 MPV 8.9 Immature Gran % (Auto) 0.300 Neut % (Auto) 79.2 H Lymph % (Auto) 6.3 L [place] % (Auto) 10.3 H Eos % (Auto) 3.3 Baso % (Auto) 0.6 Absolute Neuts (auto) 5.6 Absolute Lymphs (auto) 0.44 L Nucleated RBC % 0 PT 29.6 H INR 2.8 Sodium 141 Potassium 3.5 Chloride 108 H Carbon Dioxide 26.0 Anion Gap 7 BUN 25 H Creatinine 1.11 Estim Creat Clear Calc 93.79 Est GFR (MDRD) Af Amer 85 Est GFR (MDRD) Non-Af 71 BUN/Creatinine Ratio 22.5 H Glucose 112 H Calcium 9.4 Total Bilirubin 0.30 AST 15 ALT 24 Alkaline Phosphatase 100 Total Protein 7.0 Albumin 3.5 Globulin 3.5 Albumin/Globulin Ratio 1.0 Urine Color Yellow Urine Clarity Sl. Cloudy Urine pH 5.0 Ur Specific [place] 1.025 Urine Protein 30 H Urine Glucose (UA) Normal Urine Ketones Negative Urine Occult Blood 250 H Urine Nitrite Negative Urine Bilirubin Negative Urine Urobilinogen 1 H Ur Leukocyte Esterase 25 H Urine RBC > 100 SEEN Urine WBC 0-5 SEEN Ur Squamous Epith Cells 5-10 SEEN Ur Transition Epith Cell 0-5 SEEN Urine Bacteria 1+ Urine Mucus 1+ Radiography Diagnostic Testing: Clinical Impression(s) from Imaging Studies Abdomen/Pelvis CT 03/23/24 15:41 IMPRESSION: Tiny nonobstructing calculus in the mid left ureter.. Mild diverticular disease of the descending colon without evidence for acute diverticulitis Electronically Signed: Dale Monahan MD at 16:15 EDT Reading Location ID and State: [address] [place] [address] Tel , Service support , Discharge Plan Triage Chief Complaint: Abd Pain ED Provider: Rick Esparza Dx/Rx/DC Orders Clinical Impression: Abdominal pain, acute, Kidney stone on left side, Anticoagulated on Coumadin Instructions: ED Kidney Stone with Pain Prescriptions: New oxycodone-acetaminophen 5-325 mg tablet 1 - 2 tab PO Q6H PRN PRN (Reason: Pain) 3 Days Qty: 12 0RF ondansetron 4 mg tablet,disintegrating 4 mg PO Q6H PRN PRN (Reason: Nausea) Qty: 10 0RF No Action benazepril 20 mg tablet 20 mg PO DAILY Patient Comments: TAKE 1 TABLET BY MOUTH EVERY DAY sertraline 50 mg tablet 50 mg PO DAILY cholecalciferol (vitamin D3) 2,000 UNIT capsule 2,000 unit PO DAILY omeprazole 20 mg capsule,delayed release(DR/EC) 20 mg PO Q OTHER DAY PRN (Reason: GERD) warfarin 5 mg tablet 5 mg PO DAILY Protocol: Dose Management Condition: Thursday Dose/Route: 8 mg Instruction: 1 x 3 mg tablet, 1 x 5 mg tablet Condition: Thursday Dose/Route: 8 mg Instruction: 1 x 3 mg tablet, 1 x 5 mg tablet Condition: Thursday Dose/Route: 8 mg Instruction: 1 x 3 mg tablet, 1 x 5 mg tablet Condition: Thursday Dose/Route: 8 mg Instruction: 1 x 3 mg tablet, 1 x 5 mg tablet Condition: Dose/Route: 8 mg Instruction: 1 x 3 mg tablet, 1 x 5 mg tablet Condition: Thursday Dose/Route: 8 mg Instruction: 1 x 3 mg tablet, 1 x 5 mg tablet Condition: Thursday Dose/Route: 8 mg Instruction: 1 x 3 mg tablet, 1 x 5 mg tablet Protocol Text: Adjustment Start Date: 03/03/24 INR Value: 2.2 INR Date: 03/03/24 Recheck Date: 03/31/24 Rx Instructions: 5 mg oral +3mg daily = 8mg daily diclofenac sodium 1 % gel 2 g topical BID Rx Instructions: 2 G TOPICALLY TWICE A DAY APPLY TO HANDS AND FEET TWICE DAILY oxycodone 5 mg Tablet 5 mg PO Q4H PRN PRN (Reason: Pain Score 4-10) 5 Days Qty: 20 0RF furosemide 40 mg tablet 40 mg PO DAILY diltiazem HCl 300 mg capsule,extended release 24hr 300 mg PO DAILY Qty: 90 3RF aspirin [Enteric Coated Aspirin] 81 mg tablet,delayed release (DR/EC) 81 mg PO DAILY Qty: 90 3RF warfarin [Jantoven] 3 mg tablet 3 mg PO DAILY Qty: 90 3RF Protocol: Dose Management Condition: Thursday Dose/Route: 8 mg Instruction: 1 x 3 mg tablet, 1 x 5 mg tablet Condition: Thursday Dose/Route: 8 mg Instruction: 1 x 3 mg tablet, 1 x 5 mg tablet Condition: Thursday Dose/Route: 8 mg Instruction: 1 x 3 mg tablet, 1 x 5 mg tablet Condition: Thursday Dose/Route: 8 mg Instruction: 1 x 3 mg tablet, 1 x 5 mg tablet Condition: Dose/Route: 8 mg Instruction: 1 x 3 mg tablet, 1 x 5 mg tablet Condition: Thursday Dose/Route: 8 mg Instruction: 1 x 3 mg tablet, 1 x 5 mg tablet Condition: Thursday Dose/Route: 8 mg Instruction: 1 x 3 mg tablet, 1 x 5 mg tablet Protocol Text: Adjustment Start Date: 03/03/24 INR Value: 2.2 INR Date: 03/03/24 Recheck Date: 03/31/24 rosuvastatin [Crestor] 5 mg tablet 5 mg PO Q OTHER DAY Qty: 45 3RF Primary Care Provider: Hao Membreno Referrals: Shilo Cortez MD [Med Staff - Active Staff] - As Needed (for Urology evaluation ) Hao Membreno MD [Primary Care Provider] - Activity Restrictions/Additional Instructions: Your INR (Coumadin level) today is 2.8 Print Language: Swazi Disposition Disposition: Home, Self Care
[2024-03-23 15:51] LABS: Bacteria 1+ /hpf (None Seen); Mucous, Urine 1+ /hpf (<or=2+); Red Blood Cells-Urine > 100 SEEN /hpf (0-5); Squamous Epithelial Cells - UA 5-10 SEEN /hpf (0-5); White Blood Cells 0-5 SEEN /hpf (0-5)
[2024-03-23 15:52] LABS: Transitional Epithelial - Ur 0-5 SEEN /hpf (0-5)
[2024-03-23 16:10] LABS: International Normalized Ratio 2.8; Prothrombin Time (Protime)PT. 29.6 SECONDS (11.7-14.9)
[2024-03-23 16:18] VITALS: BP 136/64; PULSE 115; RESP 16; O2SAT 97
[2024-03-23] MEDS: 0.9 % NaCl (Sterile) Posiflush 10 mL IV (16:55)
[2024-03-23] MEDS: 0.9% Saline Lock 10 ML Syringe IV (16:55)
[2024-03-23 16:59] VITALS: BP 138/72; PULSE 64; RESP 18; TEMP 36.4; O2SAT 99
== END 2024-03-23 17:01 | disposition home or self-care (01) ==
PROVIDERS: Emergency Provider Emergency Medicine; PCP Family Medicine; Visit Provider Emergency Medicine
DX: N20.1 Calculus of ureter (principal); I10 Essential (primary) hypertension; Z90.49 Acquired absence of other specified parts of digestive tract; Z79.01 Long term (current) use 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s; Z79.82 Long term (current) use of aspirin; Z79.899 Other long term (current) drug therapy; Z87.442 Personal history of urinary calculi; Z86.16 Personal history of COVID-19; Z86.711 Personal history of pulmonary embolism; Z86.718 Personal history of other venous thrombosis and embolism
CPT/HCPCS: 36591; 74176; 80053; 81001; 85025; 85610; 96374; 99284; A4216

== ENCOUNTER 2024-04-03 16:45 | Emergency (ER) | payer MEDICARE, OTHER, SELFPAY ==
[2024-04-03 16:46] VITALS: BP 155/77; PULSE 81; RESP 16; TEMP 36.8; O2SAT 97; BMI 41.4
--- NOTE | 2024-04-03 16:58 | EDS_ITS ---
HPI History of Present Illness Chief Complaint: Wound Check Narrative Narrative: Patient is a 63-year-old male with a past medical history of DVT/PE on warfarin, hypertension who presents to the emergency department with chief complaint of concern for a high INR. Patient states that this morning his dog scratched his leg he noted that he had a fair amount of bleeding throughout the morning they originally had to stop and then when he went to stand up again and noted that he started bleeding. He came here to have his INR checked. He states that when he has blood like this in the past his INR was elevated. [facility] Medical History (Updated 04/03/24 @ 20:[address] Barak Miranda, DO) Anxiety CPAP (continuous positive airway pressure) dependence Diverticulitis Low back pain Fatigue Dry skin Hypokalemia Thyroid disease History of echocardiogram Cancer Encounter for education Rectal cancer Rectal mass High cholesterol DVT (deep venous thrombosis) Gastric reflux Non-smoker History of edema Cardiology follow-up encounter History of atrial fibrillation Hypertension Sinusitis Acute cough COVID-19 Kidney stone [employer] current use 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 Abdominal pain Weight gain with edema Edema Dyspnea on exertion History of venous thromboembolism Pulmonary embolism (06/10/18) CORRINA (obstructive sleep apnea) Afib Asthma Arthritis Hyperlipidemia Gastroesophageal reflux disease Benign essential hypertension Home Medications ?Medication ?Instructions ?Recorded ?Last Taken ?Type cholecalciferol (vitamin D3) 50 2,000 unit PO DAILY supplement 06/16/19 06/16/19 History mcg (2,000 unit) capsule furosemide 40 mg tablet 40 mg PO DAILY diuretic 06/16/19 08/02/23 History benazepril 20 mg tablet 20 mg PO DAILY blood pressure 01/09/21 08/02/23 History sertraline 50 mg tablet 50 mg PO QHS depression 01/09/21 Unknown History omeprazole 20 mg capsule,delayed 20 mg PO Q OTHER DAY PRN GERD 10/25/21 08/02/23 History release aspirin 81 mg tablet,delayed 81 mg PO DAILY heart #90 tabs 01/15/24 Unknown Rx release (Enteric Coated Aspirin) warfarin 3 mg tablet (Jantoven) 3 mg PO DAILY blood thinner #90 01/19/24 Unknown Rx tabs rosuvastatin 5 mg tablet (Crestor) 5 mg PO Q OTHER DAY cholesterol 01/22/24 Unknown Rx #45 tabs warfarin 5 mg tablet 5 mg PO DAILY blood thinner 02/14/24 Unknown History oxycodone 5 mg tablet 5 mg PO Q4H PRN PRN Pain Score 02/16/24 Unknown Rx 4-10 5 days #20 tabs ondansetron 4 mg disintegrating 4 mg PO Q6H PRN PRN Nausea #10 tabs 03/23/24 Unknown Rx tablet diltiazem HCl 300 mg 300 mg PO 1200 heart 03/30/24 Unknown History capsule,extended release 24 hr Allergy/AdvReac Type Severity Reaction Status Date / Time simvastatin AdvReac Severe Myalgias Verified 04/03/24 16:46 doxycycline AdvReac Intermediate GI upset Verified 04/03/24 16:46 Family History Mother CAD (coronary artery disease) Diabetes Hypertension Hyperlipidemia Heart disease Father CVA (cerebral vascular accident) Surgical History (Updated 03/30/24 @ 14:10 by Mojgan Torres) History of vascular access device History of cardiac catheterization History of appendectomy History of colonoscopy (~06/2016) History of left heart catheterization (10/21/18) History of left inguinal hernia repair History of appendectomy History of hip surgery Social History Smoking Status: Never smoker alcohol intake: never substance use type: does not use caffeine: Yes Type: carbonated beverages Number of servings: 1 ROS ROS ED ROS Narrative Constitutional: Denies any lightheadedness, dizziness, fevers, chills Cardiovascular: Denies chest pain or palpitations Respiratory: Denies cough or wheezing shortness of breath skin : Complains of dog scratch and bleeding as noted above in the left leg EXAM Physical Exam Narrative Exam Narrative: General: Patient lying in bed resting comfortably did not appear to be in acute distress Head: Atraumatic, normocephalic Eyes: Pupils equal round reactive to light bilaterally, extraocular muscles intact bilaterally, no conjunctival injection noted Cardiovascular: Regular rhythm Neurological: Patient following commands knew he is [facility] the year is 2023 Skin: Patient has superficial abrasion noted to the anterior left lower lopez no active bleeding noted. No surrounding erythema no purulent discharge noted this once again just happened this morning. Const Vital Signs: 04/03/24 16:46 Temperature 98.2 F Temperature Source Temporal Pulse Rate 81 Respiratory Rate 16 Blood Pressure 155/77 H Blood Pressure Mean 103 Pulse Ox 97 Oxygen Delivery Method Room Air MDM MDM MDM Narrative Medical decision making narrative: Patient is a 63-year-old male who presented to the emergency department with chief complaint of left leg scratch and concern for elevated INR. Patient will have his INR checked and then be reevaluated. Patient's INR was checked and was noted to be 3.7 mildly supratherapeutic. On reevaluation of the patient the bleeding has stopped. He was encouraged to hold his next dose of warfarin and then resume after this. He is encouraged to follow-up with his primary care physician and have his INR rechecked. He is encouraged to return with worsening symptoms or other concerns. He is encouraged to follow-up with his physician in 2 to 3 days as well. All question concerns answered he would like to go home and is discharged home in stable condition. Lab Data Labs: Laboratory Results - last 24 hr 04/03/24 17:09 PT 36.0 H INR 3.7 Discharge Plan Triage Chief Complaint: Wound Check ED Provider: Barak Miranda Dx/Rx/DC Orders Clinical Impression: Superficial abrasion Prescriptions: No Action benazepril 20 mg tablet 20 mg PO DAILY Patient Comments: TAKE 1 TABLET BY MOUTH EVERY DAY sertraline 50 mg tablet 50 mg PO QHS cholecalciferol (vitamin D3) 2,000 UNIT capsule 2,000 unit PO DAILY omeprazole 20 mg capsule,delayed release(DR/EC) 20 mg PO Q OTHER DAY PRN (Reason: GERD) ondansetron 4 mg tablet,disintegrating 4 mg PO Q6H PRN PRN (Reason: Nausea) Qty: 10 0RF warfarin 5 mg tablet 5 mg PO DAILY Protocol: Dose Management Condition: Thursday Dose/Route: 8 mg Instruction: 1 x 3 mg tablet, 1 x 5 mg tablet Condition: Thursday Dose/Route: 8 mg Instruction: 1 x 3 mg tablet, 1 x 5 mg tablet Condition: Thursday Dose/Route: 8 mg Instruction: 1 x 3 mg tablet, 1 x 5 mg tablet Condition: Thursday Dose/Route: 8 mg Instruction: 1 x 3 mg tablet, 1 x 5 mg tablet Condition: Dose/Route: 8 mg Instruction: 1 x 3 mg tablet, 1 x 5 mg tablet Condition: Thursday Dose/Route: 8 mg Instruction: 1 x 3 mg tablet, 1 x 5 mg tablet Condition: Thursday Dose/Route: 8 mg Instruction: 1 x 3 mg tablet, 1 x 5 mg tablet Protocol Text: Adjustment Start Date: 03/03/24 INR Value: 2.2 INR Date: 03/03/24 Recheck Date: 03/31/24 Rx Instructions: 5 mg oral +3mg daily = 8mg daily oxycodone 5 mg Tablet 5 mg PO Q4H PRN PRN (Reason: Pain Score 4-10) 5 Days Qty: 20 0RF diltiazem HCl 300 mg capsule,extended release 24hr 300 mg PO 1200 furosemide 40 mg tablet 40 mg PO DAILY aspirin [Enteric Coated Aspirin] 81 mg tablet,delayed release (DR/EC) 81 mg PO DAILY Qty: 90 3RF warfarin [Jantoven] 3 mg tablet 3 mg PO DAILY Qty: 90 3RF Protocol: Dose Management Condition: Thursday Dose/Route: 8 mg Instruction: 1 x 3 mg tablet, 1 x 5 mg tablet Condition: Thursday Dose/Route: 8 mg Instruction: 1 x 3 mg tablet, 1 x 5 mg tablet Condition: Thursday Dose/Route: 8 mg Instruction: 1 x 3 mg tablet, 1 x 5 mg tablet Condition: Thursday Dose/Route: 8 mg Instruction: 1 x 3 mg tablet, 1 x 5 mg tablet Condition: Dose/Route: 8 mg Instruction: 1 x 3 mg tablet, 1 x 5 mg tablet Condition: Thursday Dose/Route: 8 mg Instruction: 1 x 3 mg tablet, 1 x 5 mg tablet Condition: Thursday Dose/Route: 8 mg Instruction: 1 x 3 mg tablet, 1 x 5 mg tablet Protocol Text: Adjustment Start Date: 03/03/24 INR Value: 2.2 INR Date: 03/03/24 Recheck Date: 03/31/24 rosuvastatin [Crestor] 5 mg tablet 5 mg PO Q OTHER DAY Qty: 45 3RF Primary Care Provider: Hao Membreno Referrals: Hao Membreno MD [Primary Care Provider] - Activity Restrictions/Additional Instructions: Have your INR checked by your primary care physician. Hold your next dose of warfarin. Return with worsening symptoms or concerns. Print Language: Paraguayan Disposition Disposition: Home, Self Care
[2024-04-03 17:24] LABS: International Normalized Ratio 3.7
[2024-04-03 20:16] VITALS: BP 140/98; PULSE 72; RESP 16; TEMP 36.7; O2SAT 98
== END 2024-04-03 20:18 | disposition home or self-care (01) ==
PROVIDERS: Emergency Provider Emergency Medicine; PCP Family Medicine; Visit Provider Emergency Medicine
DX: S80.812A Abrasion, left lower leg, initial encounter (principal); I48.91 Unspecified atrial fibrillation; W54.8XXA Other contact with dog, initial encounter; I10 Essential (primary) hypertension; E78.00 Pure hypercholesterolemia, unspecified; Z79.01 Long term (current) use 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s; Z79.899 Other long term (current) drug therapy; Z86.711 Personal history of pulmonary embolism; Z86.718 Personal history of other venous thrombosis and embolism; Z86.16 Personal history of COVID-19
CPT/HCPCS: 85610; 99282

== ENCOUNTER → 2024-04-08 | Outpatient (CLI) | payer MEDICARE, OTHER, SELFPAY ==
[2024-04-08 17:41] LABS: Absolute Lymphocyte Count 0.62 X10^3/uL (0.83-4.51); Absolute Neutrophil Count 4.6 X10^3/uL (2.0-7.7); Basophil# 0.04 X10^3/uL; Basophil% 0.6 % (0-1); Eosinophil# 0.23 X10^3/uL; Eosinophils% 3.6 % (0-5); Hematocrit 38.2 % (40-54); Hemoglobin 12.5 g/dL (13.0-16.5); Lymphocyte # 0.62 X10^3/ul (0.83-4.51); Lymphocyte % 9.8 % (19-41); Mean Corp Hgb Conc 32.7 g/dL (32-36); Mean Corpuscular Hgb 30.6 pg (27.0-32.0); Mean Corpuscular Volume 93.4 fL (80-94); Mean Platelet Vol. 9.5 fl (6.2-12.0); Monocyte# 0.79 X10^3/uL; Monocyte% 12.5 % (0-10); NRBC Flagged by Analyzer 0 % (0-5); Neutrophil # 4.61 X10^3/uL (2.7-7.7); Neutrophil % 73.2 % (47-70); Platelet Count 255 K/mm3 (150-450); RBC Distribution Width CV 13.4 % (11.6-14.6); RBC Distribution Width SD 45.4 fl (35.1-43.9); Red Blood Count 4.09 M/mm3 (4.6-6.2); White Blood Count 6.3 K/mm3 (4.4-11.0)
[2024-04-08 17:59] LABS: Hemoglobin A1c 5.6 % (3.8-5.6)
[2024-04-08 18:04] LABS: ALB/GLOB Ratio 0.8 RATIO (0.9-2.4); AST(SGOT) 18 U/L (15-37); Alanine Aminotransfer ALT/SGPT 24 U/L (16-61); Albumin, Serum 3.3 g/dL (3.2-5.0); Alkaline Phosphatase 92 U/L (45-117); Anion Gap 6 (5-15); BUN 22 mg/dL (7-18); BUN/Creat Ratio 16.4 RATIO (10-20); Calcium,Total 8.9 mg/dL (8.5-10.1); Chloride 109 mmol/L (98-107); Cholesterol 145 mg/dL (200); Creatinine, Serum 1.34 mg/dL (0.70-1.30); EST Glomerular Filtration Rate 57 mL/min (>60); Est Glom Filt Rate - Afr Amer 69 mL/min (>60); Globulin 3.9 g/dL (2.2-4.2); Glucose 102 mg/dL (74-106); High Density Lipoprotein 37 mg/dL; Magnesium 2.3 mg/dL (1.6-2.6); Protein, Total 7.2 g/dL (6.4-8.2); Sodium Level 141 mmol/L (136-145); Thyroid Stim Hormone (TSH) 1.75 uIU/mL (0.358-3.74); Triglycerides 146 mg/dL; Very Low Density Lipoprotein 29 mg/dL (5-40)
== END | disposition home or self-care (01) ==
LOC: MFPLAB 16:29
PROVIDERS: PCP Family Medicine; Visit Provider Family Medicine
DX: I10 Essential (primary) hypertension (principal); I48.91 Unspecified atrial fibrillation; R73.02 Impaired glucose tolerance (oral)
CPT/HCPCS: 36415; 80053; 80061; 83036; 83735; 84443; 85025

== ENCOUNTER 2024-04-11 15:05 | Outpatient (CLI) | payer MEDICARE, OTHER, SELFPAY ==
[2024-04-11 15:46] LABS: International Normalized Ratio 2.3; Prothrombin Time (Protime)PT. 25.1 SECONDS (11.7-14.9)
== END 2024-04-11 23:59 | disposition home or self-care (01) ==
LOC: MEDOUTP 15:06
PROVIDERS: PCP Family Medicine; Referring Provider Nurse Practitioner Family; Visit Provider Nurse Practitioner Family
DX: I48.0 Paroxysmal atrial fibrillation (principal); Z79.01 Long term (current) use 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s
CPT/HCPCS: 36591; 85610; A4216

== ENCOUNTER 2024-04-27 10:08 | Emergency (ER) | payer MEDICARE, OTHER, SELFPAY ==
[2024-04-27 10:08] VITALS: BP 163/85; PULSE 149; RESP 20; TEMP 36; O2SAT 97; BMI 43.4
--- NOTE | 2024-04-27 10:35 | ED.VIS.CHEST ---
HPI History of Present Illness Chief Complaint: Palpitations Informant: patient Onset/Context/Timing Onset: Today and Hours Activity at onset: sudden Timing: Continuous Worsened By: Nothing Relieved By: Nothing Narrative Narrative: 4-year-old male history of A-fib on Cardizem and Coumadin for that. Was at work today had palpitations decelerate heart rate broke a sweat. No chest pain. No shortness of breath. Said he was feeling fine prior to this episode. Also has a history of colon cancer which was treated with chemotherapy and radiation. Prior Similar Symptoms: Yes Recent Illness/Hospitalization: Yes PE Risk Factors: Negative for Recent Travel/Surgery, Recent Immobilization, Prior DVT or PE, Cancer or OCP + Smoking + >/=35 TAD Risk Factors: Negative for Marfan's Syndrome PFSH [facility] Medical History Anxiety CPAP (continuous positive airway pressure) dependence Diverticulitis Low back pain Fatigue Dry skin Hypokalemia Thyroid disease History of echocardiogram Cancer Encounter for education Rectal cancer Rectal mass High cholesterol DVT (deep venous thrombosis) Gastric reflux Non-smoker History of edema Cardiology follow-up encounter History of atrial fibrillation Hypertension Sinusitis Acute cough COVID-19 Kidney stone [facility] current use 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 Abdominal pain Weight gain with edema Edema Dyspnea on exertion History of venous thromboembolism Pulmonary embolism (06/10/18) CORRINA (obstructive sleep apnea) Afib Asthma Arthritis Hyperlipidemia Gastroesophageal reflux disease Benign essential hypertension Home Medications ?Medication ?Instructions ?Recorded ?Last Taken ?Type cholecalciferol (vitamin D3) 50 2,000 unit PO DAILY supplement 06/16/19 06/16/19 History mcg (2,000 unit) capsule furosemide 40 mg tablet 40 mg PO DAILY diuretic 06/16/19 08/02/23 History benazepril 20 mg tablet 20 mg PO DAILY blood pressure 01/09/21 08/02/23 History sertraline 50 mg tablet 50 mg PO QHS depression 01/09/21 Unknown History omeprazole 20 mg capsule,delayed 20 mg PO Q OTHER DAY PRN GERD 10/25/21 08/02/23 History release aspirin 81 mg tablet,delayed 81 mg PO DAILY heart #90 tabs 01/15/24 Unknown Rx release (Enteric Coated Aspirin) warfarin 3 mg tablet (Jantoven) 3 mg PO DAILY blood thinner #90 01/19/24 Unknown Rx tabs rosuvastatin 5 mg tablet (Crestor) 5 mg PO Q OTHER DAY cholesterol 01/22/24 Unknown Rx #45 tabs warfarin 5 mg tablet 5 mg PO DAILY blood thinner 02/14/24 Unknown History oxycodone 5 mg tablet 5 mg PO Q4H PRN PRN Pain Score 02/16/24 Unknown Rx 4-10 5 days #20 tabs ondansetron 4 mg disintegrating 4 mg PO Q6H PRN PRN Nausea #10 tabs 03/23/24 Unknown Rx tablet diltiazem HCl 300 mg 300 mg PO QDAY heart #90 caps 04/26/24 Unknown Rx capsule,extended release 24 hr Allergy/AdvReac Type Severity Reaction Status Date / Time simvastatin AdvReac Severe Myalgias Verified 04/27/24 10:08 doxycycline AdvReac Intermediate GI upset Verified 04/27/24 10:08 Family History Mother CAD (coronary artery disease) Diabetes Hypertension Hyperlipidemia Heart disease Father CVA (cerebral vascular accident) Surgical History History of vascular access device History of cardiac catheterization History of appendectomy History of colonoscopy (~06/2016) History of left heart catheterization (10/21/18) History of left inguinal hernia repair History of appendectomy History of hip surgery Social History Smoking Status: Never smoker alcohol intake: never substance use type: does not use caffeine: Yes Type: carbonated beverages Number of servings: 1 ROS ROS ED ROS Narrative Denies recent illness. Constitutional Constitutional ED: Denies chills or fever(s) Eyes Eyes: Reports none ENT ENT ED: Denies ear pain Cardiovascular Cardiovascular: Reports as per HPI, palpitations and racing heartbeat; Denies chest pain Respiratory/Chest Respiratory/Chest: Denies cough Genitourinary Genitourinary ED: Denies dysuria Musculoskeletal Musculoskeletal: Denies arthralgias Integumentary Denies abscess Neurologic Neurologic: Denies headache(s) Psychiatric Psychiatric: Denies anxiety Endocrine Endocrinology: Denies cold intolerance Hematologic/Lymphatic Hematologic/Lymphatic: Denies lymphadenopathy or other Allergic/Immunologic Allergic/Immunologic ED: Denies mouth swelling, tongue swelling or urticaria EXAM Physical Exam Narrative Exam Narrative: Well-appearing 64-year-old male. Vital signs he is A-fib flutter heart rate 140s. Pulse ox 97% on room air no hypoxia. H EENT exam unremarkable. Mytrex membranes. Neck nontender. No JVD. Lungs clear to auscultation bilaterally. Heart A-fib or flutter rate about 120 currently. No murmur. Abdomen soft nontender. Moving all 4 extremities. Nontender no edema. Normal strength. Neurologically is awake and alert no focal motor deficits. Answering questions and following commands. Const Vital Signs: 04/27/24 10:08 04/27/24 10:54 04/27/24 10:55 Temperature 96.8 F L Temperature Source Temporal Pulse Rate 149 H Respiratory Rate 20 H Respiratory Effort Normal Non-Labored Blood Pressure 163/85 H Blood Pressure Mean 111 Pulse Ox 97 Oxygen Delivery Method Room Air Room Air 04/27/24 11:08 04/27/24 12:00 Temperature Temperature Source Pulse Rate 109 H 71 Respiratory Rate 15 14 Respiratory Effort Blood Pressure 166/80 H 142/72 H Blood Pressure Mean 108 95 Pulse Ox 95 96 Oxygen Delivery Method Room Air Room Air Positive well nourished and well developed; Negative for cachectic or contractures General Appearance ED: well developed and NAD; Negative for cachectic, contractures or pallor Nutritional Appearance: Negative for cachectic HEENT Reports moist mucous membranes normocephalic and atraumatic; Negative for trauma or tenderness Eyes PERRL and EOMs intact bilaterally General Eye ED: Negative for pale conjunctiva Neck no lymphadenopathy, supple and no JVD General: Negative for tenderness Chest Wall inspection of chest normal and palpation of chest normal Resp normal respiratory effort and clear to auscultation bilaterally Effort and Inspection: Negative for respiratory distress Auscultation: Negative for rales or rhonchi Cardio regular rhythm, S1 normal heart sound, S2 normal heart sound and no murmurs; Negative for regular rate Rate: tachycardic Rhythm: abnormal rhythm GI normal to inspection, nondistended, normoactive bowel sounds, soft to palpation, non-tender, non-distended and no masses Back/Spine no CVA tenderness Extremity normal to inspection General Extremety ED: Negative for edema, pulses abnormal or tenderness General Extremity: Negative for edema or pulses abnormal Neuro oriented x3 and CN's II-XII intact bilaterally Sensorium / Orientation: awake, alert, oriented to person, oriented to place and oriented to time; Negative for confused, lethargic or stuporous Motor Exam: strength 5/5 throughout Psych mental status grossly normal Attitude: No agitated Mood & Affect: Negative for depressed, anxious or tearful Skin no rashes or lesions noted and no wounds General Skin Exam: Negative for jaundice or pallor Rashes: No rashes noted Trauma: Negative for abrasion, laceration or puncture MDM MDM MDM Narrative Medical decision making narrative: 64-year-old male history of A-fib on Cardizem and Coumadin. A-fib flutter today with a set rate heart rate. Cardiac workup. Repeat exam at 11:43 AM patient doing well. Heart rate still 106 in A-fib flutter. Will be given 20 of Cardizem and observe. Repeat exam patient doing well at 12:10 PM. Heart rate in the 70s. He remains in A-fib flutter. Rates controlled. He is on Cardizem and Coumadin at home. He will be discharged to use his Cardizem as prescribed. Follow-up as needed. History & Record Review Discussion w/independent historian: Patient Additional record(s) reviewed:: Prior inpatient record, Prior outpatient record, Prior ED visit and Prior labs Lab Data Attestation: I reviewed the patient's lab results. Lab results narrative: CBC unremarkable. White count of 7. H&H 13 and 41. Platelets 228. Patient is on Coumadin and his INR is 2.3. Electrolytes show a gap 7. BUN of 27 creatinine 1. Glucose is 105. Troponin is 9. Labs: Laboratory Results - last 24 hr 04/27/24 10:50 WBC 7.1 RBC 4.41 L Hgb 13.2 Hct 41.1 MCV 93.2 MCH 29.9 MCHC 32.1 RDW Std Deviation 49.3 H RDW Coeff of [place] 14.4 Plt Count 228 MPV 9.3 Immature Gran % (Auto) 0.300 Neut % (Auto) 78.1 H Lymph % (Auto) 7.5 L Brooke % (Auto) 11.0 H Eos % (Auto) 2.4 Baso % (Auto) 0.7 Absolute Neuts (auto) 5.6 Absolute Lymphs (auto) 0.53 L Nucleated RBC % 0 PT 24.9 H INR 2.3 Sodium 139 Potassium 3.8 Chloride 105 Carbon Dioxide 27.0 Anion Gap 7 BUN 27 H Creatinine 1.08 Estim Creat Clear Calc 96.87 Est GFR (MDRD) Af Amer 88 Est GFR (MDRD) Non-Af 73 BUN/Creatinine Ratio 25.0 H Glucose 105 Calcium 9.3 Troponin I High Sens 9 Radiography Chest X-Ray - ED: 1 View, Read by ED Physician, Heart, Lungs, Bony Structures, No Acute Disease and Chronic Changes Diagnostic Testing: Clinical Impression(s) from Imaging Studies Chest X-Ray 04/27/24 11:05 IMPRESSION: No radiographic evidence of acute cardiopulmonary disease. Electronically Signed: Devendra Mason MD at 11:28 EDT , Chest x-ray, portable, single view, interpreted by myself shows no acute abnormality. Normal cardiac silhouette. Normal lung katz. Right-sided Mediport. Chronic changes no acute process. Rhythm Strip Rhythm Strip: Atrial flutter Rate: 113 Ectopy: None EKG Initial EKG: Attestation: I personally reviewed and interpreted this EKG as follows: Interpretation: Atrial Flutter Comments: Atrial flutter rate 113 no acute signs of AK or ischemia. Discharge Plan Triage Chief Complaint: Palpitations ED Provider: Glenn Coreas Dx/Rx/DC Orders Clinical Impression: A-fib, Chronic anticoagulation, Heart palpitations Instructions: AFib Prescriptions: No Action benazepril 20 mg tablet 20 mg PO DAILY Patient Comments: TAKE 1 TABLET BY MOUTH EVERY DAY sertraline 50 mg tablet 50 mg PO QHS cholecalciferol (vitamin D3) 2,000 UNIT capsule 2,000 unit PO DAILY omeprazole 20 mg capsule,delayed release(DR/EC) 20 mg PO Q OTHER DAY PRN (Reason: GERD) ondansetron 4 mg tablet,disintegrating 4 mg PO Q6H PRN PRN (Reason: Nausea) Qty: 10 0RF warfarin 5 mg tablet 5 mg PO DAILY Protocol: Dose Management Condition: Thursday Dose/Route: 8 mg Instruction: 1 x 3 mg tablet, 1 x 5 mg tablet Condition: Thursday Dose/Route: 5 mg Instruction: 1 x 5 mg tablet Condition: Thursday Dose/Route: 8 mg Instruction: 1 x 3 mg tablet, 1 x 5 mg tablet Condition: Thursday Dose/Route: 8 mg Instruction: 1 x 3 mg tablet, 1 x 5 mg tablet Condition: Dose/Route: 8 mg Instruction: 1 x 3 mg tablet, 1 x 5 mg tablet Condition: Thursday Dose/Route: 8 mg Instruction: 1 x 3 mg tablet, 1 x 5 mg tablet Condition: Thursday Dose/Route: 8 mg Instruction: 1 x 3 mg tablet, 1 x 5 mg tablet Protocol Text: Adjustment Start Date: Thursday04/11/24 INR Value: 2.3 INR Date: 04/11/24 Recheck Date: 04/25/24 Rx Instructions: 5 mg oral +3mg daily = 8mg daily oxycodone 5 mg Tablet 5 mg PO Q4H PRN PRN (Reason: Pain Score 4-10) 5 Days Qty: 20 0RF furosemide 40 mg tablet 40 mg PO DAILY aspirin [Enteric Coated Aspirin] 81 mg tablet,delayed release (DR/EC) 81 mg PO DAILY Qty: 90 3RF warfarin [Jantoven] 3 mg tablet 3 mg PO DAILY Qty: 90 3RF Protocol: Dose Management Condition: Thursday Dose/Route: 8 mg Instruction: 1 x 3 mg tablet, 1 x 5 mg tablet Condition: Thursday Dose/Route: 5 mg Instruction: 1 x 5 mg tablet Condition: Thursday Dose/Route: 8 mg Instruction: 1 x 3 mg tablet, 1 x 5 mg tablet Condition: Thursday Dose/Route: 8 mg Instruction: 1 x 3 mg tablet, 1 x 5 mg tablet Condition: Dose/Route: 8 mg Instruction: 1 x 3 mg tablet, 1 x 5 mg tablet Condition: Thursday Dose/Route: 8 mg Instruction: 1 x 3 mg tablet, 1 x 5 mg tablet Condition: Thursday Dose/Route: 8 mg Instruction: 1 x 3 mg tablet, 1 x 5 mg tablet Protocol Text: Adjustment Start Date: Thursday04/11/24 INR Value: 2.3 INR Date: 04/11/24 Recheck Date: 04/25/24 rosuvastatin [Crestor] 5 mg tablet 5 mg PO Q OTHER DAY Qty: 45 3RF diltiazem HCl 300 mg capsule,extended release 24hr 300 mg PO QDAY Qty: 90 3RF Primary Care Provider: Hao Membreno Referrals: Watson Rodriguez MD [Med Staff - Active Staff] - As Needed Hao Membreno MD [Primary Care Provider] - As Needed Activity Restrictions/Additional Instructions: Follow-up with your PCP and/or web site specialist as needed. Take your Cardizem as prescribed. I would take it later today. Print Language: Upper Sorbian Disposition Disposition: Home, Self Care
[2024-04-27 11:02] LABS: Absolute Lymphocyte Count 0.53 X10^3/uL (0.83-4.51); Absolute Neutrophil Count 5.6 X10^3/uL (2.0-7.7); Basophil# 0.05 X10^3/uL; Basophil% 0.7 % (0-1); Eosinophil# 0.17 X10^3/uL; Eosinophils% 2.4 % (0-5); Hematocrit 41.1 % (40-54); Hemoglobin 13.2 g/dL (13.0-16.5); Lymphocyte # 0.53 X10^3/ul (0.83-4.51); Lymphocyte % 7.5 % (19-41); Mean Corp Hgb Conc 32.1 g/dL (32-36); Mean Corpuscular Hgb 29.9 pg (27.0-32.0); Mean Corpuscular Volume 93.2 fL (80-94); Mean Platelet Vol. 9.3 fl (6.2-12.0); Monocyte# 0.78 X10^3/uL; NRBC Flagged by Analyzer 0 % (0-5); Neutrophil # 5.55 X10^3/uL (2.7-7.7); Neutrophil % 78.1 % (47-70); POSITIVE DIFFERENTIAL YES; Platelet Count 228 K/mm3 (150-450); RBC Distribution Width CV 14.4 % (11.6-14.6); RBC Distribution Width SD 49.3 fl (35.1-43.9); Red Blood Count 4.41 M/mm3 (4.6-6.2); White Blood Count 7.1 K/mm3 (4.4-11.0)
--- NOTE | 2024-04-27 11:05 | RAD_ITS ---
INDICATION: Chest pain EXAMINATION/TECHNIQUE: X-RAY - XR Chest 1 View COMPARISON: Prior study dated: 02/14/2020 FINDINGS: LINES/DEVICES: Right-sided Port-A-Cath in stable position. LUNGS: No consolidation, edema or effusion. No pneumothorax. MEDIASTINUM AND CARDIOVASCULAR STRUCTURES: Cardiac silhouette not enlarged. Central airways and mediastinal contour are unremarkable. BONES AND SOFT TISSUES: Unremarkable. RAD/Chest 1 View (Portable) IMPRESSION: No radiographic evidence of acute cardiopulmonary disease. Electronically Signed: Devendra Mason MD at 11:28 EDT ,
[2024-04-27 11:08] VITALS: BP 166/80; PULSE 109; RESP 15; O2SAT 95
[2024-04-27 11:19] LABS: International Normalized Ratio 2.3; Prothrombin Time (Protime)PT. 24.9 SECONDS (11.7-14.9)
[2024-04-27 11:21] LABS: Anion Gap 7 (5-15); BUN 27 mg/dL (7-18); Calcium,Total 9.3 mg/dL (8.5-10.1); Chloride 105 mmol/L (98-107); Creatinine, Serum 1.08 mg/dL (0.70-1.30); EST Glomerular Filtration Rate 73 mL/min (>60); Est Glom Filt Rate - Afr Amer 88 mL/min (>60); Estimated Creatinine Clearance 96.87 ml/min; Glucose 105 mg/dL (74-106); Potassium 3.8 mmol/L (3.5-5.1); Sodium Level 139 mmol/L (136-145); Troponin-I HS 9 pg/mL (3.0-78.0)
[2024-04-27] MEDS: dilTIAZem 25 MG/5 ML Vial 20 MG IV BOLUS (11:55)
[2024-04-27 12:00] VITALS: BP 142/72; PULSE 71; RESP 14; O2SAT 96
[2024-04-27 12:17] VITALS: BP 132/71; PULSE 71; RESP 18; TEMP 36.7; O2SAT 97
== END 2024-04-27 12:30 | disposition home or self-care (01) ==
PROVIDERS: Emergency Provider Emergency Medicine; PCP Family Medicine; Visit Provider Emergency Medicine
DX: I48.91 Unspecified atrial fibrillation (principal); R00.2 Palpitations; G47.33 Obstructive sleep apnea (adult) (pediatric); Z79.01 Long term (current) use 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s; Z86.718 Personal history of other venous thrombosis and embolism; Z86.711 Personal history of pulmonary embolism; Z86.16 Personal history of COVID-19
CPT/HCPCS: 36591; 71045; 80048; 84484; 85025; 85610; 93005; 96374; 99283; A4216

== ENCOUNTER 2024-05-03 06:16 | Day surgery (SDC) | payer MEDICARE, OTHER, SELFPAY ==
[2024-05-03] VITALS (7 sets, daily range): BP systolic 84–114; BP diastolic 34–85; PULSE 69–91; RESP 16–18; TEMP 36.3–36.9; O2SAT 97–98; BMI 39.5
--- NOTE | 2024-05-03 | COLBX_PTH ---
PATIENT: MIGUE STROUD LOC: EN U#:[id number] AGE/SX: 64/M ROOM: RE05/03/[address]: Dr. Daniel Ramirez MD : 1960 BED: DIS: 05/03/2024 SPEC #: [id number] RECD: 05/03/24 13:13 STATUS: ASHLEY KALLIE #: [id number] OFE: 05/03/24 00:[address]: Daniel Ramirez DEPT: SURGICAL PATHOLOGY RECD BY: Josh Montiel ENTERED: 05/03/24 13:13 SP TYPE: COLON BX OTHR DR: Dr. Hao Membreno MD Tissues: COLON BIOPSY Procedures: Surgery Specimen Level IV HEADER OPERATION: Colonoscopy, polypectomy PRE-OP DIAGNOSIS: History of blood clots, history of rectal cancer TISSUE SUBMITTED: Hepatic flexure polyp MICROSCOPIC DIAGNOSIS Colonic polyp at hepatic flexure, biopsy: Fragments of tubular adenoma. AM/mr 05/04/2024 MICROSCOPIC DESCRIPTION Slides are reviewed. GROSS DESCRIPTION Received in fixative is one container labeled with the patient's name and designated Hepatic flexure polyp. The specimen consists of multiple irregular fragments of light teague soft tissue mixed with fecal material that in aggregate measure 3.0 x 1.0 x 0.3 cm. The specimen predominantly consists of fecal material. The specimen is totally submitted in one cassette. 05/03/2024 TC:5 CPT:95194
[2024-05-03 06:25] LABS: INR Fingerstick 1.1; Prothrombin Time Fingerstick 12.9 SEC (11.7-14.9)
[2024-05-03] MEDS: Lactated Ringers 1,000 ML 15 ML IV (06:55)
--- NOTE | 2024-05-03 06:55 | PCM.HP.BLA ---
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 Required: No Is patient in pain?: No Allergies simvastatin Adverse Reaction (Severe, Verified 04/19/24 08:32) Myalgiasdoxycycline Adverse Reaction (Intermediate, Verified 04/19/24 08:32) GI upset Medications ?Medication ?Instructions ?Recorded ?Confirmed ?Type cholecalciferol (vitamin D3) 50 2,000 unit PO DAILY supplement 06/16/19 04/19/24 History mcg (2,000 unit) capsule furosemide 40 mg tablet 40 mg PO DAILY diuretic 06/16/19 04/19/24 History benazepril 20 mg tablet 20 mg PO DAILY blood pressure 01/09/21 04/19/24 History sertraline 50 mg tablet 50 mg PO QHS depression 01/09/21 04/19/24 History omeprazole 20 mg capsule,delayed 20 mg PO Q OTHER DAY PRN GERD 10/25/21 04/19/24 History release aspirin 81 mg tablet,delayed 81 mg PO DAILY heart #90 tabs 01/15/24 04/19/24 Rx release (Enteric Coated Aspirin) warfarin 3 mg tablet (Jantoven) 3 mg PO DAILY blood thinner #90 01/19/24 04/19/24 Rx tabs rosuvastatin 5 mg tablet (Crestor) 5 mg PO Q OTHER DAY cholesterol 01/22/24 04/19/24 Rx #45 tabs warfarin 5 mg tablet 5 mg PO DAILY blood thinner 02/14/24 04/19/24 History oxycodone 5 mg tablet 5 mg PO Q4H PRN PRN Pain Score 02/16/24 04/19/24 Rx 4-10 5 days #20 tabs ondansetron 4 mg disintegrating 4 mg PO Q6H PRN PRN Nausea #10 tabs 03/23/24 04/19/24 Rx tablet diltiazem HCl 300 mg 300 mg PO 1200 heart 03/30/24 04/19/24 History capsule,extended release 24 hr Have you fallen in the past year?: No PFSH Medical History Anxiety CPAP (continuous positive airway pressure) dependence Diverticulitis Low back pain Fatigue Dry skin Hypokalemia Thyroid disease History of echocardiogram Cancer Encounter for education Rectal cancer Rectal mass High cholesterol DVT (deep venous thrombosis) Gastric reflux Non-smoker History of edema Cardiology follow-up encounter History of atrial fibrillation Hypertension Sinusitis Acute cough COVID-19 Kidney 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 Abdominal pain Weight gain with edema Edema Dyspnea on exertion History of venous thromboembolism Pulmonary embolism (06/10/18) CORRINA (obstructive sleep apnea) Afib Asthma Arthritis Hyperlipidemia Gastroesophageal reflux disease Benign essential hypertension Surgical History History of vascular access device History of cardiac catheterization History of appendectomy History of colonoscopy (~06/2016) History of left heart catheterization (10/21/18) History of left inguinal hernia repair History of appendectomy History of hip surgery Family History Mother CAD (coronary artery disease) Diabetes Hypertension Hyperlipidemia Heart diseaseFather CVA (cerebral vascular accident) Social History Smoking Status: Never smoker alcohol intake: never substance use type: does not use caffeine: Yes Type: carbonated beverages Number of servings: 1 HPI HPI HPI: Patient is a 64-year-old male here with need for colonoscopy. He was diagnosed with rectal cancer a year ago. He does not have any plans for surgery and reports that his latest scans have been negative. He is here for colonoscopy for surveillance. He denies abdominal pain but he does occasionally have blood in the stool. He is on Coumadin for history of blood clots as well as aspirin. ROS General General: No weight change, appetite, fatigue, colon cancer, breast cancer or weakness HEENT HEENT: No difficulty swallowing, eye injury, eye surgery, swollen glands or hoarseness Endo Endocrine: No thyroid disease, diabetes mellitus, thyroid cancer, Hair loss, heat intolerance or cold intolerance Skin Skin: No rash or changing moles Breast Breast: No left breast lump, right breast lump, nipple discharge, breast pain, abnormal mammogram, abnormal US or breast enlargement Musc Musculoskeletal: Yes back problems and arthritis; No rheumatoid arthritis, gout or joint pain Cardio Cardiovascular: Yes heart disease, atrial fibrillation and high blood pressure; No murmur, pacemaker, heart attack, heart stent, palpitations, shortness of breat with exertion or chest pain Psych Psychiatric: No depression, anxiety or hearing voices Resp Respiratory: No shortness of breath, Yes sleep apnea, No cough, No COPD, No asthma, No emphysema and No wheezing Gastro Gastrointestinal: No abdominal pain, No nausea or vomiting, No diarrhea, No constipation, No blood in stool, No acid reflux, No hemorrhoids, No ulcers, No gallbladder problem and No black,tarry stools Juma Hematologic: Yes blood thinners, No blood disorders, No bleeding, No anemia and Yes blood clots Neuro Neurologic: No system reviewed and no additional complaints, except as documented, No as per HPI, No abnormal gait, No abnormal hearing, No abnormal movements, No abnormal speech, No behavioral changes, No burning sensations, No confusion, No convulsions, No disequilibrium, No dizziness, No localized weakness, No frequent falls, No headache(s), No lack of coordination, No loss of vision, No memory loss, No numbness, No other visual disturbances, No radicular pain, No restless legs, No sensory deficit, No syncope, No tingling, No tremor(s), No weakness and No other Exam Const General: cooperative Orientation: alert and oriented x3 HENMT Head: normal to inspection Neck Neck: normal visual inspection and full ROM Chest Chest palpation & inspection: normal inspection of the chest Resp Effort & Inspection: normal respiratory effort Auscultation: clear to auscultation bilaterally Cardio Rate: regular rate Rhythm: regular rhythm GI Inspection: non-distended Palpation: soft and nontender Skin General: no rashes or lesions noted Neuro General: patient alert and patient oriented x3 Extrem General: full ROM Psych Appearance: grossly normal Mental Status: mental status grossly normal Assessment and Plan Assessment and Plan (1) History of blood clots: Status: Acute (2) History of rectal cancer: Status: Acute Plan The patient needs surveillance colonoscopy to evaluate the rectum. He has had CT scans and blood work that is shown that he is responding to treatment he is scheduled for an MRI for the lymph nodes soon. I discussed surveillance colonoscopy with him in detail. I explained endoscopy in detail to the patient. I explained the risks including but not limited to stroke or heart attack with anesthesia, perforation of the GI tract, bleeding, infection. I explained that any of these could necessitate further emergency surgery. The patient understands and all questions were answered sufficiently. The patient wishes to proceed with procedure. Daniel Ramirez MD Pager: [facility] [address] [place] [address] [address] [place] [address] Office: I have reviewed the H&P and reexamined the patient. There are no changes since prior exam.
--- NOTE | 2024-05-03 07:22 | PCM.PRE.AN2 ---
ASA Classification* ASA Classification ASA Classification: 3 Assessment & Plan Anesthesia* Anesthesia Assessment Anesthesia Assessment: Discussed sedation and/or anesthesia options, risks, benefits, and alternatives with patient/parents/legal guardian/POA. Questions invited. The patient/parents/legal guardian/POA seems to understand and agrees to proceed with anesthesia plan. Reviewed the physical assessment, medical history, allergy history and patient home medications list prior to surgery/procedure/anesthetic and documented any changes. Performed airway and anesthesia risk assessments. Anesthesia Type Anesthesia Type: MAC (see written pre anesthesia record for full assessment) Anesthesia Focused Assessment* Temperature: 97.3 F Pulse Rate: 91 Blood Pressure: 114/85 Respiratory Rate: 18 Pulse Ox: 97 Airway Assessment Mouth opens: >3 cm Mallampati Score: II Focused Labs Anesthesia Preop lab: CBC WBC 7.1 K/mm3 (4.4-11.0) 04/27/24 10:50 RBC 4.41 M/mm3 (4.6-6.2) L 04/27/24 10:50 Hgb 13.2 g/dL (13.0-16.5) 04/27/24 10:50 Hct 41.1 % (40-54) 04/27/24 10:50 Plt Count 228 K/mm3 (150-450) 04/27/24 10:50 CHEMISTRY Potassium 3.8 mmol/L (3.5-5.1) 04/27/24 10:50 Sodium 139 mmol/L (136-145) 04/27/24 10:50 Magnesium 2.3 mg/dL (1.6-2.6) 04/08/24 16:30 Phosphorus 2.6 mg/dL (2.5-4.9) 02/16/24 06:27 BUN 27 mg/dL (7-18) H 04/27/24 10:50 Creatinine 1.08 mg/dL (0.70-1.30) 04/27/24 10:50 Glucose 105 mg/dL (74-106) 04/27/24 10:50 TSH 1.75 uIU/mL (0.358-3.74) 04/08/24 16:30 COAG PT 24.9 SECONDS (11.7-14.9) H 04/27/24 10:50 Pre-Assessment Diagnosis/Proposed Procedure Planned Operative Procedure(s): CSCOPE Anesthesia History 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 When Was Last Pacemaker Check QUESTION #4 FULL TEXT: You/Your Family Experience fever (hyperthermia) with Anesthesia Last Oral Intake Last Oral intake: Last Oral Intake NPO since 00:00 05/03/24 06:57 Meds taken in AM with sips of Yes 05/03/24 06:57 water? Meds patient instructed to take am of surgery PONV PONV - epitaxial reactor operator: PONV - epitaxial reactor operator Female No 04/28/24 13:40 HX of Motion Sickness No 04/28/24 13:40 HX of N/V After Surgery No 04/28/24 13:40 Non-Smoker Yes 04/28/24 13:40 Duration of Surgery greater No 04/28/24 13:40 than 60 minutes Number of Risk Factors 1 04/28/24 13:40 PONV Score Low Risk 04/28/24 13:40 Height & Weight Height & Weight: Anesthesia: Height & Weight Height 5 ft 11 in 05/03/24 06:57 Weight: 128.73 kg 05/03/24 06:57 Body Mass Index (BMI) 39.5 05/03/24 06:57 Respiratory Assessment Respiratory Assessment - epitaxial reactor operator: Respiratory Tract Infection Hx - epitaxial reactor operator Hx Respiratory Tract Infection No 04/28/24 13:40 STOP Sleep Apnea STOP Sleep Apnea - epitaxial reactor operator: STOP Sleep Apnea - epitaxial reactor operator Hx Hypertension Yes: CONTROLLED WITH MED 04/28/24 13:40 Hx Sleep Apnea Yes 04/28/24 13:40 CPAP Yes 04/28/24 13:40 BIPAP No 04/28/24 13:40 Do you snore loudly (louder than talking or can be heard Do you often feel tired/ fatigued/ sleepy during daytime? Has anyone observed you stop breathing during sleep? STOP Results Positive 04/28/24 13:40 QUESTION #5 FULL TEXT : Do you snore loudly (louder than talking or can be heard through closed doors)? 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 Specify any problems Hx of Preganancy in last 3 N/A 04/28/24 13:40 Months Nurse Filling Out Transfusion [facility]BU[facility]ER 04/28/24 13:40 & Questions: Date: 04/28/24 04/28/24 13:40 Time: 13:42 04/28/24 13:40 Patient unable to answer at this time (ie. confused, unrespo /Reproduction History /Reproductive History - epitaxial reactor operator: /Reproductive Hx- epitaxial reactor operator Hx Now No 04/28/24 13:40 Gestational Age (in weeks): EDC: Hx Hx Para Hx Section SAB No 04/28/24 13:40 Active Medications Active Medications: Current Medications Generic Name Dose Route Start Last Admin Trade Name Freq PRN Reason Stop Dose Admin Lactated Ringer's 1,000 mls @ 15 mls/hr 05/03/24 06:30 05/03/24 06:55 IV 15 mls/hr .Q48H DINA Administration PFSH Medical History History of kidney stones Anxiety CPAP (continuous positive airway pressure) dependence Diverticulitis Low back pain Fatigue Dry skin Hypokalemia Thyroid disease History of echocardiogram Cancer Encounter for education Rectal cancer Rectal mass High cholesterol DVT (deep venous thrombosis) Gastric reflux Non-smoker History of edema Cardiology follow-up encounter History of atrial fibrillation Hypertension Sinusitis Acute cough COVID-19 Kidney stone nursing home current use 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 Abdominal pain Weight gain with edema Edema Dyspnea on exertion History of venous thromboembolism Pulmonary embolism (06/10/18) CORRINA (obstructive sleep apnea) Afib Asthma Arthritis Hyperlipidemia Gastroesophageal reflux disease Benign essential hypertension Home Medications ?Medication ?Instructions ?Recorded ?Last Taken ?Type cholecalciferol (vitamin D3) 50 2,000 unit PO DAILY supplement 06/16/19 05/02/24 History mcg (2,000 unit) capsule furosemide 40 mg tablet 40 mg PO DAILY diuretic 06/16/19 05/02/24 History benazepril 20 mg tablet 20 mg PO DAILY blood pressure 01/09/21 05/03/24 History sertraline 50 mg tablet 50 mg PO QHS depression 01/09/21 05/02/24 History omeprazole 20 mg capsule,delayed 20 mg PO Q OTHER DAY PRN GERD 10/25/21 08/02/23 History release aspirin 81 mg tablet,delayed 81 mg PO DAILY heart #90 tabs 01/15/24 05/02/24 Rx release (Enteric Coated Aspirin) rosuvastatin 5 mg tablet (Crestor) 5 mg PO Q OTHER DAY cholesterol 01/22/24 05/02/24 Rx #45 tabs warfarin 5 mg tablet 5 mg PO DAILY blood thinner 02/14/24 04/27/24 History oxycodone 5 mg tablet 5 mg PO Q4H PRN PRN Pain Score 02/16/24 Unknown Rx 4-10 5 days #20 tabs diltiazem HCl 300 mg 300 mg PO QDAY heart #90 caps 04/26/24 05/02/24 Rx capsule,extended release 24 hr metoprolol tartrate 25 mg tablet 25 mg PO BID #60 tabs 04/27/24 05/02/24 Rx warfarin 1 mg tablet 2 mg PO DAILY 04/28/24 04/27/24 History Allergy/AdvReac Type Severity Reaction Status Date / Time simvastatin AdvReac Severe Myalgias Verified 05/03/24 07:03 doxycycline AdvReac Intermediate GI upset Verified 05/03/24 07:03 Family History Mother CAD (coronary artery disease) Diabetes Hypertension Hyperlipidemia Heart disease Father CVA (cerebral vascular accident) Surgical History History of vascular access device History of cardiac catheterization History of appendectomy History of colonoscopy (~06/2016) History of left heart catheterization (10/21/18) History of left inguinal hernia repair History of appendectomy History of hip surgery Social History Smoking Status: Never smoker alcohol intake: never substance use type: does not use caffeine: Yes Type: carbonated beverages Number of servings: 1 Review of Systems (Anesthesia) ROS Narrative System reviewed and no additional complaints, except as documented.
--- NOTE | 2024-05-03 07:47 | OP.CCLET_ITS ---
05/03/2024 Hao Membreno [address] [place] [address] Re : Colonoscopy procedure for Maxime Gunter Dear Dr. Membreno This procedure was performed on Friday, May 03, 2024. My impressions and recommendations are as follows: Impressions : - One medium polyp at the hepatic flexure, removed with a hot snare. Resected and retrieved. - The examination was otherwise normal on direct and retroflexion views. Recommendations : - Discharge patient to home. - Resume previous diet. - Continue present medications. - Resume Coumadin (warfarin) at prior dose tomorrow. - Await pathology results. - Repeat colonoscopy in 1 year for surveillance. My findings are described in the full procedure note, which is enclosed. If I can be of further assistance, please feel free to contact me at Doctor phone number(s): , Work: . Sincerely, Daniel Ramirez MD 05/03/2024 7:46:32 AM This report has been signed electronically.
--- NOTE | 2024-05-03 07:47 | OP.COLON_ITS ---
Patient Name: Maxime Gunter Procedure Date: 05/03/2024 6:45 AM Date of : 1960 Age: 64 Procedure: Colonoscopy Indications: High risk colon cancer surveillance: Personal history of colon cancer Providers: Daniel Ramirez MD Medicines: Propofol per Anesthesia Patient Profile: This is a 64 year old male. Refer to note in patient chart for documentation of history and physical. Last Colonoscopy: 1 year ago. Complications: No immediate complications. Estimated blood loss: Minimal. Procedure: Pre-Anesthesia Assessment: - Prior to the procedure, a History and Physical was performed, and patient medications and allergies were reviewed. The patient's tolerance of previous anesthesia was also reviewed. The risks and benefits of the procedure and the sedation options and risks were discussed with the patient. All questions were answered, and informed consent was obtained. Prior Anticoagulants: The patient has taken no 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 or antiplatelet agents. After reviewing the risks and benefits, the patient was deemed in satisfactory condition to undergo the procedure. After I obtained informed consent, the scope was passed under direct vision. Throughout the procedure, the patient's blood pressure, pulse, and oxygen saturations were monitored continuously. The Colonoscope was introduced through the anus and advanced to the cecum, identified by appendiceal orifice and ileocecal valve. The colonoscopy was performed without difficulty. The patient tolerated the procedure well. The quality of the bowel preparation was good. The ileocecal valve, appendiceal orifice, and rectum were photographed. Scope In: 7:31:29 AM Scope Withdrawal Time 0 hours 3 minutes 35 seconds Scope Out: 7:39:34 AM Total Procedure Duration Time 0 hours 8 minutes 5 seconds Findings: A medium polyp was found in the hepatic flexure. The polyp was removed with a hot snare. Resection and retrieval were complete. The exam was otherwise without abnormality on direct and retroflexion views. Impression: - One medium polyp at the hepatic flexure, removed with a hot snare. Resected and retrieved. - The examination was otherwise normal on direct and retroflexion views. Recommendation: - Discharge patient to home. - Resume previous diet. - Continue present medications. - Resume Coumadin (warfarin) at prior dose tomorrow. - Await pathology results. - Repeat colonoscopy in 1 year for surveillance. Procedure Code(s): --- Professional --- 03099, Colonoscopy, flexible; with removal of tumor(s), polyp(s), or other lesion(s) by snare technique Diagnosis Code(s): --- Professional --- Z85.038, Personal history of other malignant neoplasm of large intestine D12.3, Benign neoplasm of transverse colon (hepatic flexure or splenic flexure) CPT copyright 2021 [employer]. All rights reserved. The codes documented in this report are preliminary and upon junior software developer review may be revised to meet current compliance requirements. Daniel Ramirez MD 05/03/2024 7:46:32 AM This report has been signed electronically. Number of Addenda: 0 Note Initiated On: 05/03/2024 6:45 AM
--- NOTE | 2024-05-03 07:52 | PCM.POST.ANE ---
Anesthesia: Postop Eval I Current Vital Signs Temperature: 97.8 F Pulse Rate: 72 Blood Pressure: 84/54 Respiratory Rate: 16 Pulse Ox: 98 Oxygen Delivery Method: Room Air Assessment Airway patent: Yes Spontaneous unlabored respirations: Yes Mental status: Awake and Calm nausea: No Vomiting: No Anesthesia Complication: No Fluid Hydration Crystalloid volume administer (ml): 500 Total IV fluid infused: 500 Progress Note Anesthesia document: Postop Eval 1 completed: Yes
--- NOTE | 2024-05-03 07:53 | PCM.POSTANE2 ---
Anesthesia Postop Eval I Sum Postop Eval Completion status Anesthesia document: Postop Eval 1 completed: Yes Anesthesia Postop Eval I Summary Anesthesia Postop Eval I Summary: Anesthesia Postop Eval I: Assessment Summary Airway patent Yes 05/03/24 07:52 [email or web address] Spontaneous unlabored Yes 05/03/24 07:52 [email or web address] respirations Mental status Awake,Calm 05/03/24 07:52 [email or web address] nausea No 05/03/24 07:52 [email or web address] Vomiting No 05/03/24 07:52 [email or web address] Anesthesia Postop Eval I: Fluid Summary Crystalloid volume administer 500 05/03/24 07:52 [email or web address] (ml) Colloids volume administered ( ml) Blood Product volume administered (ml) Total IV fluid infused 500 05/03/24 07:52 [email or web address] Anesthesia Postop Eval I: Summary Notes Anesthesia Complication No 05/03/24 07:52 [email or web address] Anesthesia Complication Comment: Post-operative progress note Anesthesia: Postop Eval II Evaluation Mental status: Awake Pain Level: 0 nausea: No Vomiting: No
[2024-05-03] MEDS: 0.9 % NaCl (Sterile) Posiflush 10 mL IV (08:15)
== END 2024-05-03 08:38 | disposition home or self-care (01) ==
LOC: EN 06:17 → AC 06:17
PROVIDERS: PCP Family Medicine; Referring Provider Surgery; Visit Provider Surgery
PROC: 0DJD8ZZ Inspection of Lower Intestinal Tract, Via Natural or Artificial Opening Endoscopic (ICD-10-PCS; CPT 45378; principal; 2024-05-03 07:25)
DX: Z12.11 Encounter for screening for malignant neoplasm of colon (principal); Z68.41 Body mass index [BMI] 40.0-44.9, adult; D12.3 Benign neoplasm of transverse colon; I10 Essential (primary) hypertension; E78.00 Pure hypercholesterolemia, unspecified; K21.9 Gastro-esophageal reflux disease without esophagitis; E66.9 Obesity, unspecified; Z79.01 Long term (current) use 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s; Z79.82 Long term (current) use of aspirin; Z79.899 Other long term (current) drug therapy; Z85.048 Personal history of other malignant neoplasm of rectum, rectosigmoid junction, and anus; Z86.711 Personal history of pulmonary embolism; Z86.718 Personal history of other venous thrombosis and embolism; Z86.16 Personal history of COVID-19
CPT/HCPCS: 45385; 36416; 85610; 88305; J7120; A4216; J2405

== ENCOUNTER 2024-05-23 11:19 | Day surgery (SDC) | payer MEDICARE, OTHER, SELFPAY ==
[2024-05-23] VITALS (9 sets, daily range): BP systolic 117–134; BP diastolic 60–73; PULSE 59–68; RESP 14–18; TEMP 36.1–36.4; O2SAT 93–98; BMI 39.6
[2024-05-23 11:32] LABS: INR Fingerstick 1.3; Prothrombin Time Fingerstick 13.9 SEC (11.7-14.9)
--- NOTE | 2024-05-23 11:49 | PRE.ANES_ITS ---
ASA Classification* ASA Classification ASA Classification: 3 Assessment & Plan Anesthesia* Anesthesia Assessment Anesthesia Assessment: Discussed sedation and/or anesthesia options, risks, benefits, and alternatives with patient/parents/legal guardian/POA. Questions invited. The patient/parents/legal guardian/POA seems to understand and agrees to proceed with anesthesia plan. Reviewed the physical assessment, medical history, allergy history and patient home medications list prior to surgery/procedure/anesthetic and documented any changes. Performed airway and anesthesia risk assessments. Anesthesia Type Anesthesia Type: General Anesthesia Focused Assessment* Airway Assessment Mouth opens: >3 cm Mallampati Score: II Focused Labs Anesthesia Preop lab: CBC WBC 7.1 K/mm3 (4.4-11.0) 04/27/24 10:50 RBC 4.41 M/mm3 (4.6-6.2) L 04/27/24 10:50 Hgb 13.2 g/dL (13.0-16.5) 04/27/24 10:50 Hct 41.1 % (40-54) 04/27/24 10:50 Plt Count 228 K/mm3 (150-450) 04/27/24 10:50 CHEMISTRY Potassium 3.8 mmol/L (3.5-5.1) 04/27/24 10:50 Sodium 139 mmol/L (136-145) 04/27/24 10:50 Magnesium 2.3 mg/dL (1.6-2.6) 04/08/24 16:30 Phosphorus 2.6 mg/dL (2.5-4.9) 02/16/24 06:27 BUN 27 mg/dL (7-18) H 04/27/24 10:50 Creatinine 1.08 mg/dL (0.70-1.30) 04/27/24 10:50 Glucose 105 mg/dL (74-106) 04/27/24 10:50 TSH 1.75 uIU/mL (0.358-3.74) 04/08/24 16:30 COAG PT 24.9 SECONDS (11.7-14.9) H 04/27/24 10:50 Pre-Assessment Diagnosis/Proposed Procedure Planned Operative Procedure(s): LEFT SHOULDER ARTHROSCOPY RTC REPAIR Anesthesia History 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 When Was Last Pacemaker Check QUESTION #4 FULL TEXT: You/Your Family Experience fever (hyperthermia) with Anesthesia Last Oral Intake Last Oral intake: Last Oral Intake NPO since Meds taken in AM with sips of water? Meds patient instructed to take am of surgery PONV PONV - biostatistics manager: PONV - biostatistics manager Female No 05/12/24 14:19 HX of Motion Sickness No 05/12/24 14:19 HX of N/V After Surgery No 05/12/24 14:19 Non-Smoker Yes 05/12/24 14:19 Duration of Surgery greater Yes 05/12/24 14:19 than 60 minutes Number of Risk Factors 2 05/12/24 14:19 PONV Score Moderate Risk 05/12/24 14:19 Height & Weight Height & Weight: Anesthesia: Height & Weight Height 5 ft 11 in 05/03/24 06:57 Respiratory Assessment Respiratory Assessment - biostatistics manager: Respiratory Tract Infection Hx - biostatistics manager Hx Respiratory Tract Infection No 05/12/24 14:19 STOP Sleep Apnea STOP Sleep Apnea - biostatistics manager: STOP Sleep Apnea - biostatistics manager Hx Hypertension Yes: CONTROLLED WITH MED 05/12/24 14:19 Hx Sleep Apnea Yes 05/12/24 14:19 CPAP Yes 05/12/24 14:19 BIPAP No 05/12/24 14:19 Do you snore loudly (louder than talking or can be heard Do you often feel tired/ fatigued/ sleepy during daytime? Has anyone observed you stop breathing during sleep? STOP Results Positive 05/12/24 14:19 QUESTION #5 FULL TEXT : Do you snore loudly (louder than talking or can be heard through closed doors)? 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 Specify any problems Hx of Preganancy in last 3 N/A 05/12/24 14:19 Months Nurse Filling Out Transfusion [facility] 05/12/24 14:19 & Questions: Date: 05/12/24 05/12/24 14:19 Time: 14:19 05/12/24 14:19 Patient unable to answer at this time (ie. confused, unrespo /Reproduction History /Reproductive History - biostatistics manager: /Reproductive Hx- biostatistics manager Hx Now No 05/12/24 14:19 Gestational Age (in weeks): EDC: Hx Hx Para Hx Section SAB No 05/12/24 14:19 Active Medications Active Medications: Current Medications Generic Name Dose Route Start Last Admin Trade Name Freq PRN Reason Stop Dose Admin Cefazolin Sodium 3 gm/ Sodium 115 mls @ 150 mls/hr 05/23/24 13:30 Chloride IV 05/23/24 14:15 PREOP ONE Lactated Ringer's 1,000 mls @ 15 mls/hr 05/23/24 11:30 IV .Q48H DINA PFSH Medical History History of kidney stones Anxiety CPAP (continuous positive airway pressure) dependence Diverticulitis Low back pain Fatigue Dry skin Hypokalemia Thyroid disease History of echocardiogram Cancer Encounter for education Rectal cancer Rectal mass High cholesterol DVT (deep venous thrombosis) Gastric reflux Non-smoker History of edema Cardiology follow-up encounter History of atrial fibrillation Hypertension Sinusitis Acute cough COVID-19 Kidney stone skilled nursing current use 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 Abdominal pain Weight gain with edema Edema Dyspnea on exertion History of venous thromboembolism Pulmonary embolism (06/10/18) CORRINA (obstructive sleep apnea) Afib Asthma Arthritis Hyperlipidemia Gastroesophageal reflux disease Benign essential hypertension Home Medications ?Medication ?Instructions ?Recorded ?Last Taken ?Type cholecalciferol (vitamin D3) 50 2,000 unit PO DAILY supplement 06/16/19 05/02/24 History mcg (2,000 unit) capsule furosemide 40 mg tablet 40 mg PO DAILY diuretic 06/16/19 05/02/24 History benazepril 20 mg tablet 20 mg PO DAILY blood pressure 01/09/21 05/03/24 History sertraline 50 mg tablet 50 mg PO QHS depression 01/09/21 05/02/24 History omeprazole 20 mg capsule,delayed 20 mg PO Q OTHER DAY PRN GERD 10/25/21 08/02/23 History release aspirin 81 mg tablet,delayed 81 mg PO DAILY heart #90 tabs 01/15/24 05/02/24 Rx release (Enteric Coated Aspirin) rosuvastatin 5 mg tablet (Crestor) 5 mg PO Q OTHER DAY cholesterol 01/22/24 05/02/24 Rx #45 tabs warfarin 5 mg tablet 5 mg PO DAILY blood thinner 02/14/24 04/27/24 History oxycodone 5 mg tablet 5 mg PO Q4H PRN PRN Pain Score 02/16/24 Unknown Rx 4-10 5 days #20 tabs diltiazem HCl 300 mg 300 mg PO QDAY heart #90 caps 04/26/24 05/02/24 Rx capsule,extended release 24 hr metoprolol tartrate 25 mg tablet 25 mg PO BID #60 tabs 04/27/24 05/02/24 Rx warfarin 1 mg tablet 2 mg PO DAILY 04/28/24 04/27/24 History Allergy/AdvReac Type Severity Reaction Status Date / Time simvastatin AdvReac Severe Myalgias Verified 05/03/24 07:03 doxycycline AdvReac Intermediate GI upset Verified 05/03/24 07:03 Family History Mother CAD (coronary artery disease) Diabetes Hypertension Hyperlipidemia Heart disease Father CVA (cerebral vascular accident) Surgical History History of vascular access device History of cardiac catheterization History of appendectomy History of colonoscopy (~06/2016) History of left heart catheterization (10/21/18) History of left inguinal hernia repair History of appendectomy History of hip surgery Social History Smoking Status: Never smoker alcohol intake: never substance use type: does not use caffeine: Yes Type: carbonated beverages Number of servings: 1 Review of Systems (Anesthesia) ROS Narrative System reviewed and no additional complaints, except as documented.
[2024-05-23] MEDS: Lactated Ringers 1,000 ML 15 ML IV (12:00)
[2024-05-23] MEDS: Cefazolin 3 GM in 0.9% Normal Saline (100mL Bag) 100 ML IV (12:58)
[2024-05-23] MEDS: Epinephrine (1 mg/ml) 1 MG/ML VIAL (13:25)
[2024-05-23] MEDS: Bupivacaine Mpf 0.5% 30 ML VIAL (14:55)
--- NOTE | 2024-05-23 15:22 | PCM.POST.ANE ---
Anesthesia: Postop Eval I Current Vital Signs Temperature: 97.6 F Pulse Rate: 65 Blood Pressure: 125/60 Respiratory Rate: 14 Pulse Ox: 94 Oxygen Delivery Method: Nasal Cannula Oxygen Flow Rate (L/min): 2 Assessment Airway patent: Yes Spontaneous unlabored respirations: Yes Mental status: Awake and Calm nausea: No Vomiting: No Anesthesia Complication: No Fluid Hydration Crystalloid volume administer (ml): 1,200 Total IV fluid infused: 1,200 Progress Note Anesthesia document: Postop Eval 1 completed: Yes
--- NOTE | 2024-05-23 15:38 | PCM.OPRPT ---
Report of Operation Date of Procedure: 05/23/24 Description of Surgical Findings:: Preoperative diagnosis: 1. Left shoulder rotator cuff tear 2. Left shoulder SLAP tear, biceps tendon instability Postoperative diagnosis: 1. Left shoulder rotator cuff tear 2. Left shoulder SLAP tear, biceps tendon instability Procedure 1. Left shoulder rotator cuff repair 2. Left shoulder arthroscopic biceps tenotomy Surgeon: Mendez Gibbons DO Astrochemist: Jayshree Castro PA-C Anesthesia: General LMA Dental Chair Assembler: Jonny Meadows CRNA Estimated blood loss: 5 cc IV fluids: Per anesthesia record Urine output: None recorded Packing/drains: None Implants: Arthrex 4.75 self punching bio composite swivel lock anchors x 3 Preoperative indications: This is a 64-year-old male who sustained an injury to his left shoulder several months ago. MRI demonstrated massive rotator cuff tear. He had pseudoparalysis. There was no significant muscle atrophy. I recommend surgical intervention in the form of left shoulder arthroscopic rotator cuff repair and a biceps tenotomy due to instability biceps tendon and suspected SLAP tear. Informed consent was obtained in the outpatient setting. Risks, benefits, terms the procedure reviewed with the patient at length and he agreed to proceed. Risk included but were not limited to bleeding, infection, loss of life or limb, need for additional surgery, persistent pain, nonhealing tendon or wounds, stiffness, neurovascular injury, DVT or PE. Patient expressed understanding of these risks and wished to proceed with surgery. Description of procedure: Patient was identified in preoperative holding area by name, medical record number, and date of . The operative extremity was marked. All questions were answered to the patient's satisfaction. Patient was then brought to the operative suite at time of his procedure. He was positioned supine a sterile operating table. General anesthesia was induced and LMA was placed. Patient was then placed in lateral decubitus position with the left side up. A beanbag was used to hold the patient in the lateral decubitus position. An axillary roll was placed. Pillows were placed beneath and between his legs to for any bony prominences. We prepped and draped the left upper extremity in normal, sterile orthopedic fashion. The operative extremity was placed in traction utilizing arthroscopic bedroom with 15 pounds of tension applied to the operative extremity throughout the arthroscopic portion of the case. We performed a timeout with all parties in attendance in agreement with the side, site, and operation be performed. No concerns were voiced and we elected to proceed with surgery. 3 g Ancef was administered IV prior to incision by anesthesia staff. I first established a standard posterior portal 2 fingerbreadths inferior medial to the posterior lateral border of the scapular spine. Blunt tipped trocar and arthroscopic cannula was introduced into the glenohumeral joint. Joint was inflated with normal saline with epinephrine. Arthroscope was then introduced. Diagnostic arthroscopy was commenced. Massive rotator cuff tear was noted. Capsulitis was noted. Anterior interval portal was established. Rigid cannula was placed. Type II SLAP tear and graham instability of the biceps tendon out of its groove was noted. Biceps tenotomy was performed at the biceps labral junction with arthroscopic cautery. The tendon was allowed to retract into the groove. Subscapularis was mobile and completely torn. An inverted mattress suture was placed with a fiber tape in the upper third of the subscapularis. The footprint was prepped and debrided. He self punching bio composite swivel lock anchor was then placed after sutures tensioned at the medial of subscapularis insertion. Sutures were cut flush with the anchor. I then turned my attention to the subacromial space. Arthroscopic instruments were removed. I reentered the shoulder in the subacromial space with blunt tipped trocar. Standard lateral portal was established with an 11 blade scalpel. Passport was placed for suture management during rotator cuff repair. I then skeletonized the undersurface of the acromion. I then assessed the mobility of the rotator cuff tear. The supra and infraspinatus was significantly contracted. I began with releasing bursal adhesions with cautery. A traction stitch was placed in the lateral margin of the supraspinatus. I then proceeded with anterior interval sliding continuity as well as a posterior interval slide due to the amount of contraction. There was still limited mobility of the cough and elected to proceed with a approximately 5 mm medialized repair. 5 mm of articular cartilage was excised at the greater tuberosity with the arthroscopic bur. I then proceeded with single row fixation with 2 inverted mattress sutures with fiber tape placed in 2 to single row swivel lock anchors. This reapproximated the supraspinatus tendon well to the medialized footprint. Infraspinatus was completely contracted and unable to be mobilized. There was excellent purchase of our anchors. I then thoroughly lavaged the subacromial space. Arthroscopic instruments were removed. Portal sites were closed in standard fashion with a [id number] 3-0 nylon suture. Bulky sterile compression dressing was applied. Patient was placed in UltraSling. He tolerated the procedure well without apparent complication. He was safely awoken the operative suite and extubated. He was transferred to his gurney and subsequently to PACU in stable condition. Need for skilled district administrative assistant: Jayshree Castro PA-C was critical to the outcome of the case. During the course of the procedure the physician district administrative assistant played a vital role. Her intimate knowledge of my steps in the procedure aided in safe and expedient completion of the procedure. The PA played a vital role in positioning particularly in obtaining the appropriate positioning. The PA was also vital in the retraction of soft tissues during the exposure and protecting vital structures. The PA was also vital and obtaining tendon reduction and assisting with hardware placement. She also played a vital role in closure and sling application with my direct supervision. Post Operative Plan: Weightbearing: Nonweightbearing right upper extremity, okay for pendulums. Range of motion of wrist elbow and hand as tolerated. Plan to start physical therapy at 4 weeks postoperatively. Antibiotics: 2 g Ancef IV prior to incision DVT Prophylaxis: Restart home aspirin and Coumadin this evening. [place]: None Dressing: Maintain dressing x 2 days then ok to shower X-Rays: 2 weeks postop in the office Pain Medication: Oxycodone Rx upon discharge Follow-up: 2 weeks post-operatively with me in the office
--- NOTE | 2024-05-23 16:03 | POSTOPAN2_ITS ---
Anesthesia Postop Eval I Sum Postop Eval Completion status Anesthesia document: Postop Eval 1 completed: Yes Anesthesia Postop Eval I Summary Anesthesia Postop Eval I Summary: Anesthesia Postop Eval I: Assessment Summary Airway patent Yes 05/23/24 15:23 [email or web address] Spontaneous unlabored Yes 05/23/24 15:23 [email or web address] respirations Mental status Awake,Calm 05/23/24 15:23 [email or web address] nausea No 05/23/24 15:23 [email or web address] Vomiting No 05/23/24 15:23 [email or web address] Anesthesia Postop Eval I: Fluid Summary Crystalloid volume administer 1,200 05/23/24 15:23 [email or web address] (ml) Colloids volume administered ( ml) Blood Product volume administered (ml) Total IV fluid infused 1,200 05/23/24 15:23 [email or web address] Anesthesia Postop Eval I: Summary Notes Anesthesia Complication No 05/23/24 15:23 [email or web address] Anesthesia Complication Comment: Post-operative progress note Anesthesia: Postop Eval II Evaluation Mental status: Awake and Calm Pain Level: 1 nausea: No Vomiting: No Complications Anesthesia Complication: No
--- NOTE | 2024-05-23 16:03 | PCM.POSTANE2 ---
Anesthesia Postop Eval I Sum Postop Eval Completion status Anesthesia document: Postop Eval 1 completed: Yes Anesthesia Postop Eval I Summary Anesthesia Postop Eval I Summary: Anesthesia Postop Eval I: Assessment Summary Airway patent Yes 05/23/24 15:23 [email or web address] Spontaneous unlabored Yes 05/23/24 15:23 [email or web address] respirations Mental status Awake,Calm 05/23/24 15:23 [email or web address] nausea No 05/23/24 15:23 [email or web address] Vomiting No 05/23/24 15:23 [email or web address] Anesthesia Postop Eval I: Fluid Summary Crystalloid volume administer 1,200 05/23/24 15:23 [email or web address] (ml) Colloids volume administered ( ml) Blood Product volume administered (ml) Total IV fluid infused 1,200 05/23/24 15:23 [email or web address] Anesthesia Postop Eval I: Summary Notes Anesthesia Complication No 05/23/24 15:23 [email or web address] Anesthesia Complication Comment: Post-operative progress note Anesthesia: Postop Eval II Evaluation Mental status: Awake and Calm Pain Level: 1 nausea: No Vomiting: No Complications Anesthesia Complication: No
[2024-05-23] MEDS: oxyCODONE 5 MG Tablet 10 MG PO (16:19)
== END 2024-05-23 17:09 | disposition home or self-care (01) ==
LOC: SDC 11:22 → AC 11:23
PROVIDERS: PCP Family Medicine; Referring Provider Student in an Organized Health Care Education/Training Program; Visit Provider Student in an Organized Health Care Education/Training Program
PROC: (CPT 29827; principal; 2024-05-23 13:10)
DX: S46.012A Strain of muscle(s) and tendon(s) of the rotator cuff of left shoulder, initial encounter (principal); I48.91 Unspecified atrial fibrillation; S43.432A Superior glenoid labrum lesion of left shoulder, initial encounter; X58.XXXA Exposure to other specified factors, initial encounter; M25.312 Other instability, left shoulder; I10 Essential (primary) hypertension; E78.00 Pure hypercholesterolemia, unspecified; K21.9 Gastro-esophageal reflux disease without esophagitis; Z79.01 Long term (current) use 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s; Z79.899 Other long term (current) drug therapy; Z85.048 Personal history of other malignant neoplasm of rectum, rectosigmoid junction, and anus; Z86.711 Personal history of pulmonary embolism; Z86.718 Personal history of other venous thrombosis and embolism; Z86.16 Personal history of COVID-19
CPT/HCPCS: 29827; 29828; 01630; 36416; 85610; J7120

== ENCOUNTER 2024-06-09 15:39 | Outpatient (RCR) | payer MEDICARE, OTHER, SELFPAY ==
[2024-06-02 11:46] LABS: International Normalized Ratio 1.6; Prothrombin Time (Protime)PT. 19.2 SECONDS (11.7-14.9)
[2024-06-09 16:31] LABS: International Normalized Ratio 2.3; Prothrombin Time (Protime)PT. 25.1 SECONDS (11.7-14.9)
== END 2024-06-13 23:59 ==
LOC: PAVLAB 15:39
PROVIDERS: PCP Family Medicine; Referring Provider Nurse Practitioner Family; Visit Provider Nurse Practitioner Family
DX: I48.91 Unspecified atrial fibrillation (principal); Z79.01 Long term (current) use 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s
CPT/HCPCS: 36415; 85610

== ENCOUNTER → 2024-07-14 | Outpatient (CLI) | payer MEDICARE, OTHER, SELFPAY ==
[2024-07-14 09:54] LABS: PSA,Total - Annual Screen 0.61 ng/mL (0.00-4.00)
--- OUTSIDE RECORDS SUMMARY | 2024-07-14 09:59 | XMS RPT_ITS | CCD ---
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 Name Role Phone DEANNA ACKERMAN Unavailable Unavailable JT GUSTAFSON Unavailable Unavailable Temi SHEA, Jt Dodd Primary Care Provider Dipak SHEA, Andre Unavailable Temi SHEA, Jt Dodd Primary Care Provider ERNESTO AGUIAR Referring Unavailable SCHINCHUY, JT E Primary Care Unavailable SCHJOSY, JT E Primary Care Unavailable ERNESTO AGUIAR Referring Unavailable SCHJOSY, JT E Primary Care Unavailable ERNESTO AGUIAR Referring Unavailable ERNESTO AGUIAR Referring Unavailable ERNESTO AGUIAR Attending Unavailable SCHJOSY, JT E Primary Care Unavailable ERNESTO AGUIAR Referring Unavailable SCHJOSY, JT E Primary Care Unavailable ERNESTO AGUIAR Referring Unavailable SCHCAMDENNER, JT E Primary Care Unavailable SCHINNER, JT E Primary Care Unavailable ERNESTO AGUIAR Attending Unavailable SCHINNER, JT E Primary Care Unavailable ERNESTO AGUIAR Referring Unavailable ERNESTO AGUIAR Attending Unavailable SCHINNER, JT E Primary Care Unavailable ERNESTO AGUIAR Referring Unavailable ERNESTO AGUIAR Attending Unavailable SCHINNER, JT E Primary Care Unavailable ERNESTO AGUIAR Attending Unavailable SCHINNER, JT E Referring Unavailable SCHINNER, JT E Primary Care Unavailable SCHINNER, JT E Primary Care Unavailable ERNESTO AGUIAR Referring Unavailable SCHCAMDENNER, JT E Primary Care Unavailable ERNESTO AGUIAR Attending Unavailable SCHINCHUY, JT Dodd Referring Unavailable ERNESTO AGUIAR Referring Unavailable SCHINNER, JT E Primary Care Unavailable ERNESTO AGUIAR R Attending Unavailable SCHINNER, JT E Referring Unavailable SCHINNER, JT E Primary Care Unavailable Medications Current Medications Medication Drug Class(es) Dates Sig (Normalized) Sig (Original) aspirin 81 mg delayed release oral tablet (20 sources) Platelet Aggregation Inhibitor, Nonsteroidal Anti-inflammatory Drug take 1 tablet by mouth once daily aspirin, enteric coated (ASPIRIN, ENTERIC COATED) 81 mg EC tablet Take 81 mg by mouth once daily. Active Comment on above: Take 81 mg by mouth once daily. atorvastatin 40 mg oral tablet (20 sources) HMG-CoA Reductase Inhibitor take 10 mg by mouth once daily atorvastatin (LIPITOR) 40 mg tablet Indications: Personal history of colonic polyps Take 10 mg by mouth once daily. Active Comment on above: Take 10 mg by mouth once daily. benazepril hydrochloride 40 mg oral tablet (20 sources) Angiotensin Converting Enzyme Inhibitor Benazepril HCl 40 mg tablet Indications: Personal history of colonic polyps Take 20 mg by mouth once daily. Active Comment on above: Take 20 mg by mouth once daily. cholecalciferol 0.05 mg oral tablet (20 sources) Vitamin D take 1 tablet by mouth once daily cholecalciferol (VITAMIN D-3) 2,000 unit tablet Take 2,000 Units by mouth once daily. Active Comment on above: Take 2,000 Units by mouth once daily. dilTIAZem hydrochloride 120 mg oral tablet (20 sources) Calcium Channel Landen take 1 tablet by mouth once daily diltiazem (CARDIZEM) 120 mg tablet Take 120 mg by mouth once daily. Active Comment on above: Take 120 mg by mouth once daily. 1 ml enoxaparin sodium 150 mg/ml prefilled syringe (20 sources) Low Molecular Weight Heparin Start: 07-21-2019 inject 140 mg by subcutaneous injection every twelve hours enoxaparin (LOVENOX) 150 mg/mL syrg Inject 0.9 mL subcutaneously q 12 HR. 28 Syringe 2 07/21/2019 Active Comment on above: Inject 0.9 mL subcut aneously q 12 HR. enteric contrast (will be provided with radiology test) (4 sources) Start: 04-18-2024 End: 04-19-2024 enteric contrast (will be provided with radiology test) MRI RECTUM WO/W. Administer, As Directed One Time Only, via Oral, Rectal, both Oral and Rectal, Enteric Tube, Stoma or Indwelling Catheter, Enteric Contrast as designated per enteric contrast guidelines 1 Each 0 04/18/2024 04/19/2024 Active Start: 03-25-2024 End: 03-26-2024 enteric contrast (will be pr ovided with radiology test) For CT CHESTABD/PEL W IVCON Routine order Administer, As Directed One Time Only, via Oral, Rectal, both Oral and Rectal, Enteric Tube, Stoma or Indwelling Catheter, Enteric Contrast as designated per enteric contrast guidelines 1 Each 0 03/25/2024 03/26/2024 Active Start: 10-28-2023 End: 10-29-2023 enteric contrast (will be pr ovided with radiology test) MRI RECTUM WO/W. Administer, As Directed One Time Only, via Oral, Rectal, both Oral and Rectal, Enteric Tube, Stoma or Indwelling Catheter, Enteric Contrast as designated per enteric contrast guidelines 1 Each 0 10/28/2023 10/29/2023 Active Comment on above: MRI RECTUM WO/W. Adm inister, As Directed One Time Only, via Oral, Rectal, both Oral and Rectal, Enteric Tube, Stoma or Indwelling Catheter, Enteric Contrast as designated per enteric contrast guidelines furosemide 40 mg oral tablet (20 sources) Loop Diuretic take 1 tablet by mouth once daily furosemide (LASIX) 40 mg tablet Take 40 mg by mouth once daily. Active Comment on above: Take 40 mg by mouth once daily. iv contrast (will be provided with radiology test) (4 sources) Start: 4 End: 4 iv contrast (will be provided with radiology test) MRI Rectum Inject, intravenously, once for 1 dose. No IV access, insert saline lock prior to the beginning of sedation, infusion, injection of imaging exam. Discontinue saline lock post exam. If Pt has a central line or IVAD, may access for administration according to line specific nursing protocol. Once exam is complete flush line and de-access according to line specific nursing protocol in the MR contrast administration guidelines link. 1 Each 0 04/18/2024 04/19/2024 Active Start: 03-25-2024 End: 03-26-2024 iv contrast (will be provide d with radiology test) CT Chest ABD/PEL-Inject, intravenously, once for 1 dose.No IV access, insert saline lock prior to the beginning of sedation, infusion, injection of imaging exam. Discontinue saline lock post exam. If Pt. has a central line or IVAD, may access for administration according to line specific nursing protocol. Once exam is complete flush line and de-access according to line specific nursing protocol in the CT contrast administration guidelines link. 1 Each 0 03/25/2024 03/26/2024 Active Start: 10-28-2023 End: 10-29-2023 iv contrast (will be provide d with radiology test) MRI Rectum Inject, intravenously, once for 1 dose. No IV access, insert saline lock prior to the beginning of sedation, infusion, injection of imaging exam. Discontinue saline lock post exam. If Pt has a central line or IVAD, may access for administration according to line specific nursing protocol. Once exam is complete flush line and de-access according to line specific nursing protocol in the MR contrast administration guidelines link. 1 Each 0 10/28/2023 10/29/2023 Active Comment on above: MRI Rectum Inject, i ntravenously, once for 1 dose. No IV access, insert saline lock prior to the beginning of sedation, infusion, injection of imaging exam. Discontinue saline lock post exam. If Pt has a central line or IVAD, may access for administration according to line specific nursing protocol. Once exam is complete flush line and de-access according to line specific nursing protocol in the MR contrast administration guidelines link. omeprazole 20 mg delayed release oral capsule (20 sources) Proton Pump Inhibitor take 1 capsule by mouth twice daily omeprazole (PRILOSEC) 20 mg capsule Take 20 mg by mouth twice daily. Active Comment on above: Take 20 mg by mouth twice daily. pantoprazole 40 mg delayed release oral tablet (20 sources) Proton Pump Inhibitor take 1 tablet by mouth once daily pantoprazole DR (PROTONIX) 40 mg tablet Indications: Personal history of colonic polyps Take 40 mg by mouth once daily. Active Comment on above: Take 40 mg by mouth once daily. warfarin sodium 5 mg oral tablet (20 sources) Vitamin K Antagonist Start: 07-21-20 19 take 1 tablet by mouth once daily warfarin (COUMADIN) 5 mg tablet Take 1 tablet by mouth once daily. 30 tablet 5 07/21/2019 Active Comment on above: Take 1 tablet by thaddeus th once daily. Problems Active Problems Problem Classification Problem Date Documented Da te Episodic/Chronic Cancer of rectum and anus (16 sources) Malignant tumor of rectum; Translations: [Malignant neoplasm of rectum] Onset: 03-28-2024 07-13-2023 Chronic Past or Other Problems Problem Classification Problem Date Documented Da te Episodic/Chronic Anal and rectal conditions (1 source) Other specified diseases of anus and rectum; Translations: [Rectal mass] Onset: 07-09-2023 Episodic Other and unspecified benign neoplasm (20 sources) History of polyp of colon; Translations: [Personal history of colonic polyps] Onset: 06-30-2016 06-30-2016 Episodic Other and unspecified benign neoplasm (1 source) Personal history of colonic polyps; Translations: [Personal history of colonic polyps] Onset: 06-30-2016 Episodic Results Test Name Value Interpretation Reference Range Facility [facility] 05-20-2024 CNPN Telephone ([facility]) MIGUE GUNTER ([id number]) 1960 M Date Time Provider Department 05/20/24 MARYANN BACON During your visit today, we recorded the following information about you: Maryann Bacon RN 05/20/2024 1:27 PM Signed Called and spoke with patient Advised MRI was reviewed at MDT today : Overall clinical assessment: No evidence of tumor regrowth or metastasis. Tumor board discussion and recommendation: Continue active surveillance (Watch AND Wait) with following schedule: Exam, MELINDA, CEA AND Flex Sig: Years 0-2 every 3 months; Years 3-4 every 6 months; Years 5-10 yearly MRI Pelvis: Years 0-4 every 6 months; Years 5-[address] C/A/P with Contrast: Years 0-2 every 6 months; Years 3-10 yearly Colonoscopy: 1 year after treatment then every 3 years Discussion: recent MRI shows complete MRI response with no sign for a cancerous mass. Patient will follow up in three months for flex sig with Dr Aguiar, will call to schedule appt Patient verbalized understanding and appreciative of call Allergies As of Date: 05/20/2024 (No Known Allergies) Date Reviewed: 05/17/2024 Reviewed by: Ernesto Aguiar MD - Fully Assessed Prescriptions as of 05/20/2024 - omeprazole (PRILOSEC) 20 mg capsule Take 20 mg by mouth twice daily. - aspirin, enteric coated (ASPIRIN, ENTERIC COATED) 81 mg EC tablet Take 81 mg by mouth once daily. - cholecalciferol (VITAMIN D-3) 2,000 unit tablet Take 2,000 Units by mouth once daily. - furosemide (LASIX) 40 mg tablet Take 40 mg by mouth once daily. - diltiazem (CARDIZEM) 120 mg tablet Take 120 mg by mouth once daily. - enoxaparin (LOVENOX) 150 mg/mL syrg Inject 0.9 mL subcutaneously q 12 HR. - warfarin (COUMADIN) 5 mg tablet Take 1 tablet by mouth once daily. - pantoprazole DR (PROTONIX) 40 mg tablet Take 40 mg by mouth once daily. - Benazepril HCl 40 mg tablet Take 20 mg by mouth once daily. - atorvastatin (LIPITOR) 40 mg tablet Take 10 mg by mouth once daily. Problem List As Of Date 05/20/2024 Noted Resolved Personal history of colonic polyps [Z86.010] 06/30/2016 Encounter Status:Closed by MARYANN BACON on 05/20/24 [facility] 05-17-2024 OV Office Visit ([facility] ) MIGUE GUNTER ([id number]) 1960 M Date Time Provider Department 05/17/24 11:00 AM ERNESTO AGUIAR [facility] During your visit today, we recorded the following information about you: Willie Chamorro MD 05/17/2024 11:51 AM Attested Attestation signed by Ernesto Aguiar MD at 05/17/2024 11:51 AM [facility] STAFF PHYSICIAN NOTE OF PERSONAL INVOLVEMENT IN CARE I have reviewed the progress note and procedure note obtained and documented by the fellow and I personally participated in the donovan components. I have discussed the case and management of the patient's care. The following comments revise or confirm relevant donovan components of their note. IMPRESSION: This is a 64 year old male who presents with watch and wait for rectal cancer. Scope today with no sign of any lesion. I do see some radiation changes but having a hard time to see the scar but no mass PLAN: On review the MRI was read as mucin and decrease interval but I cannot see a lesion. Will add back on to MDT to review. If continue to WANDW: Continue active surveillance (Watch AND Wait) with following schedule: Exam, MELINDA, CEA AND Flex Sig: Years 0-2 every 3 months; Years 3-4 every 6 months; Years 5-10 yearly MRI Pelvis: Years 0-4 every 6 months; Years 5-[address] C/A/P with Contrast: Years 0-2 every 6 months; Years 3-10 yearly Colonoscopy: 1 year after treatment then every 3 years Plan of care discussed with Patient and Family/Significant Other: family CARE COORDINATION: Consult MDT for opinion and advice regarding as above SIGNATURE: Ernesto Aguiar MD DATE of SERVICE: May 17, 2024 TIME of SERVICE: 11:50 AM [facility]OR[facility] SURGERY Follow-up May 12, 2024 Chief complaint: rectal cancer HPI: Migue Gunter is a 63-year-old year old male [...] 11-04-23 showed complete/near complete response to treatment. He also had CT scans done locally. Flex sig done during appt on 11.17.2023 and showed complete endoscopic response. His case was presented to [facility] and recommended to undergo watch and wait protocol. He is due for flex sig and CEA today. He had MRI and CT scans in April - all stable, no evidence of metastatic disease or recurrence. No new symptoms. Denies abdominal pain, nausea or vomiting. No weight changes. No rectal pain, denies any hematochezia or melena. Reports that he had a complete colonoscopy a few weeks ago with polypectomy. 04/21/2024 MRI rectum IMPRESSION: Slight interval decrease in size of low rectal tumor with mucin. No abnormal lymph nodes. Stable indeterminate 0.7 cm left sacral lesion. Since 11/04/2023, post treatment primary tumor assessment: Complete/near complete response. mrTRG: Grade 2 - Good response Suspicious Mesorectal lymph nodes: No. Suspicious Extramesorectal lymph nodes: No. 04/14/2024 CT C/A/P IMPRESSION: No CT evidence of metastatic disease in the chest. Little interval change since 07/27/2023. IMPRESSION: New fracture of the left greater trochanter relative to 11/11/2023. No metastatic disease in the abdomen or pelvis. 03.01.2024 flex sig Findings: The perianal and digital rectal examinations were normal. Post-treatment scar and mild radiation change No evidence of disease recurrence Impression: - Post-treatment scar and mild radiation change No evidence of disease recurrence - No specimens collected. 11.18.2023 MDT RECS Tumor board discussion and recommendation: Active surveillance (Watch AND Wait) Discussion: Good endoscopic and radiologic response. 11.17.2023 flex sig Findings: The perianal and digital rectal examinations were normal. Scope advanced to upper rectum Enema and irrigation required for optimal view No endoscopic lesion Evidence of complete endoscopic response with scar and telegiectasia at left lateral region below first valve approx 2 cm above anal verge with no other suspicious lesions seen. Estimated blood loss: none. Impression: - Scope advanced to upper rectum No endoscopic lesion Evidence of complete endoscopic response with scar and telegiectasia at left lateral region below first valve approx 2 cm above anal verge with no other suspicious lesions seen. - No specimens collected. 11/04/23 CEA 2.8 11/04/2023 MRI rectum IMPRESSION: Resolution of prior viable tumor with new scar and mucin. Resolution of prior left mesorectal tumor deposit. De (more content not included)... Normal [facility] Flexible Sigmoidoscopyon Flexible sigmoidoscopy [facility] Gastrointestinal Endoscopy Patient Name: Migue Gunter Procedure Date: 05/17/2024 7:56 AM Date of : 1960 Admit Type: Ambulatory Age: 64 Room: Room 210 ([place] [address]) Gender: Male Note Status: Finalized Attending MD: Ernesto Aguiar MD, [id number] Procedure: Flexible Sigmoidoscopy Indications: Personal history of malignant rectal neoplasm Providers: Ernesto Aguiar MD Patient Profile: This is a 64 year old male. Refer to note in patient chart for documentation of history and physical. Referring Physician: Medicines: None Complications: No immediate complications. Requesting Provider: Procedure: Pre-Anesthesia Assessment: - Prior to the procedure, a History and Physical was performed, and patient medications and allergies were reviewed. The patient is competent. The risks and benefits of the procedure and the sedation options and risks were discussed with the patient. All questions were answered and informed consent was obtained. Patient identification and proposed procedure were verified in the procedure room. Mental Status Examination: alert and oriented. Airway Examination: normal oropharyngeal airway and neck mobility. Respiratory Examination: clear to auscultation. CV Examination: normal. Prophylactic Antibiotics: The patient does not require prophylactic antibiotics. Prior Anticoagulants: The patient has taken no 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 or antiplatelet agents. ASA Grade Assessment: II - A patient with mild systemic disease. After reviewing the risks and benefits, the patient was deemed in satisfactory condition to undergo the procedure. The anesthesia plan was to use no sedation or anesthesia. Immediately prior to administration of medications, the patient was re-assessed for adequacy to receive sedatives. The heart rate, respiratory rate, oxygen saturations, blood pressure, adequacy of pulmonary ventilation, and response to care were monitored throughout the procedure. The physical status of the patient was re-assessed after the procedure. After obtaining informed consent, the scope was passed under direct vision. The Flexible sigmoidoscope was introduced through the anus and advanced to the rectosigmoid junction. I was present and participated during the entire procedure, including non-donovan portions, and during the administration and monitoring of Moderate Sedation. The flexible sigmoidoscopy was accomplished without difficulty. The patient tolerated the procedure well. The quality of the bowel preparation was adequate. Moderate Sedation: No sedation No sedation was administered for this procedure. Findings: The perianal and digital rectal examinations were normal aside from hemorrhoids The entire examined colon appeared normal. No evidence of recurrence Impression: - The entire examined colon is normal. - No specimens collected. Recommendation: - Discharge patient to home (ambulatory). - The patient is not currently taking 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 or antiplatelet agents. Procedure Code(s): --- Professional --- 81246, 52 CPT copyright 2020 [employer]. All rights reserved. The codes documented in this report are preliminary and upon pre coder review may be revised to meet current compliance requirements. Attending Participation: I was present and participated during the entire procedure, including non-donovan portions. Scope In: Scope Out: MD Ernesto Mckeon MD 05/17/2024 11:10:29 AM This report has been signed electronically by Ernesto Aguiar MD Number of Addenda: 0 Note Initiated On: 05/17/2024 7:56 AM Estimated Blood Loss: Estimated blood loss: none. Normal [facility] Flexible sigmoidoscopy study on 05-17-2024 [facility] Cancer Gastrointestinal Endoscopy Patient Name: Migue Gunter Procedure Date: 05/17/2024 7:56 AM Date of : 1960 Admit Type: Ambulatory Age: 64 Room: Room 210 ([facility]) Gender: Male Note Status: Finalized Attending MD: Ernesto Aguiar MD, [id number] Procedure: Flexible Sigmoidoscopy Indications: Personal history of malignant rectal neoplasm Providers: Ernesto Aguiar MD Patient Profile: This is a 64 year old male. Refer to note in patient chart for documentation of history and physical. Referring Physician: Medicines: None Complications: No immediate complications. Requesting Provider: Procedure: Pre-Anesthesia Assessment: - Prior to the procedure, a History and Physical was performed, and patient medications and allergies were reviewed. The patient is competent. The risks and benefits of the procedure and the sedation options and risks were discussed with the patient. All questions were answered and informed consent was obtained. Patient identification and proposed procedure were verified in the procedure room. Mental Status Examination: alert and oriented. Airway Examination: normal oropharyngeal airway and neck mobility. Respiratory Examination: clear to auscultation. CV Examination: normal. Prophylactic Antibiotics: The patient does not require prophylactic antibiotics. Prior Anticoagulants: The patient has taken no 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 or antiplatelet agents. ASA Grade Assessment: II - A patient with mild systemic disease. After reviewing the risks and benefits, the patient was deemed in satisfactory condition to undergo the procedure. The anesthesia plan was to use no sedation or anesthesia. Immediately prior to administration of medications, the patient was re-assessed for adequacy to receive sedatives. The heart rate, respiratory rate, oxygen saturations, blood pressure, adequacy of pulmonary ventilation, and response to care were monitored throughout the procedure. The physical status of the patient was re-assessed after the procedure. After obtaining informed consent, the scope was passed under direct vision. The Flexible sigmoidoscope was introduced through the anus and advanced to the rectosigmoid junction. I was present and participated during the entire procedure, including non-donovan portions, and during the administration and monitoring of Moderate Sedation. The flexible sigmoidoscopy was accomplished without difficulty. The patient tolerated the procedure well. The quality of the bowel preparation was adequate. Moderate Sedation: No sedation No sedation was administered for this procedure. Findings: The perianal and digital rectal examinations were normal aside from hemorrhoids The entire examined colon appeared normal. No evidence of recurrence Impression: - The entire examined colon is normal. - No specimens collected. Recommendation: - Discharge patient to home (ambulatory). - The patient is not currently taking 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 or antiplatelet agents. Procedure Code(s): --- Professional --- 57759, 52 CPT copyright 2020 [employer]. All rights reserved. The codes documented in this report are preliminary and upon pre coder review may be revised to meet current compliance requirements. Attending Participation: I was present and participated during the entire procedure, including non-donovan portions. Scope In: Scope Out: MD Ernesto Mckeon MD 05/17/2024 11:10:29 AM This report has been signed electronically by Ernesto Aguiar MD Number of Addenda: 0 Note Initiated On: 05/17/2024 7: (more content not included)... PROVATION [facility] Radiology Study observation (narrative) [facility] [place] 05-13-2024 [facility] Telephone ([facility]) JANIMIGUE Mansi ([id number]) 1960 M Date Time Provider Department 05/13/24 ERNESTO AGUIAR During your visit today, we recorded the following information about you: June Denton 05/13/2024 8:19 AM Signed [phone] Migue called and wanted to confirm if they still needed to come to the appointment on Thursday or not. Colonoscopy report was faxed over and scanned into the chart. Allergies As of Date: 05/13/2024 (No Known Allergies) Date Reviewed: 04/21/2024 Reviewed by: Bipin Dean RN - Fully Assessed Reason for Visit: Patient Update [1234] Prescriptions as of 05/13/2024 - omeprazole (PRILOSEC) 20 mg capsule Take 20 mg by mouth twice daily. - aspirin, enteric coated (ASPIRIN, ENTERIC COATED) 81 mg EC tablet Take 81 mg by mouth once daily. - cholecalciferol (VITAMIN D-3) 2,000 unit tablet Take 2,000 Units by mouth once daily. - furosemide (LASIX) 40 mg tablet Take 40 mg by mouth once daily. - diltiazem (CARDIZEM) 120 mg tablet Take 120 mg by mouth once daily. - enoxaparin (LOVENOX) 150 mg/mL syrg Inject 0.9 mL subcutaneously q 12 HR. - warfarin (COUMADIN) 5 mg tablet Take 1 tablet by mouth once daily. - pantoprazole DR (PROTONIX) 40 mg tablet Take 40 mg by mouth once daily. - Benazepril HCl 40 mg tablet Take 20 mg by mouth once daily. - atorvastatin (LIPITOR) 40 mg tablet Take 10 mg by mouth once daily. Problem List As Of Date 05/13/2024 Noted Resolved Personal history of colonic polyps [Z86.010] 06/30/2016 Encounter Status:Closed by JUNE DENTON on 05/13/24 [facility] MRI RECTUM WO/W IVCONon 08-0 MRI RECTUM WO/W IVCON * * *Final Report* * * * * * SEE BOTTOM OF REPORT FOR ADDENDED TEXT * * * DATE OF EXAM: Apr 21 2024 1:13PM Q 0754 - MRI RECTUM WO/W IVCON / PROCEDURE REASON: Malignant neoplasm of rectum (HCC) * * * * Physician Interpretation * * * * * * * * * * * * ORIGINAL REPORT * * * * * * * * MRI OF THE PELVIS WITHOUT AND WITH CONTRAST: RECTAL CANCER RESTAGING CLINICAL HISTORY: Rectal Cancer RESTAGING Pretreatment Tumor Staging: T3 N1 Rectal tumor histology: Invasive adenocarcinoma, poorly differentiated. Prior chemotherapy or radiation: Yes Other: No COMPARISON: MRI rectum 07/13/2023, MRI 11/04/2023 TECHNIQUE: Magnet: Siemens [place] 3T scanner. Multiplanar MRI with multiple sequences before and after contrast. Contrast: IV: 20 ml of Dotarem Rectal: 60 ml of Surgilube RESULT: TREATED PRIMARY TUMOR CHARACTERISTICS (Compare to pre-treatment): DWI (with associated low ADC) ? restricted diffusion and low ADC in tumor or tumor bed: Absent. MRI-T2W: Entirely dark T2 signal/scar and T2 bright mucin. T2 bright mucin (cannot distinguish between cellular and acellular mucin): Present. Description: Similar-appearing eccentric thickening along the left lateral anorectal wall (7:28) with intrinsic T2 bright mucin. Distance of the inferior margin of treated tumor to the anal verge: 3.1 cm (2:20) Distance of the inferior margin to the top of sphincter complex/anorectal junction: 0 cm (2:20) Relationship to anterior peritoneal reflection: Below Craniocaudal length: 3.6 cm (2:20) Pre-treatment craniocaudal length: 6.6 cm Tumor location: Low rectal Maximal wall thickness: 0.9 cm (7:20), previously 1.0 cm on 11/04/2023 Pre-treatment wall thickness: 1.1 cm Invasion of anal sphincter complex: Abuts internal sphincter (IAS) without definite invasion. Anal canal involvement: None. TUMOR DEPOSITS AND EXTRAMURAL VASCULAR INVASION (EMVI): Tumor deposits:(separate from metastatic lymph nodes): No. EMVI: No (none evident pre-treatment). MESORECTAL FASCIA (MRF): Shortest distance of extraluminal part of the tumor to MRF: 0.8 Tumor extension through the peritonealized portion of the rectum into peritoneal fat: No extension into peritoneal fat. Is there a separate tumor deposit, LN or EMVI threatening (?1mm and ?2 mm) or invading (< 1 mm) the MRF? No. T4 disease interval change: Not applicable POST-TREATMENT TUMOR REGRESSION: mrTRG: Grade 2 - Good response LYMPH NODES: Mesorectal/superior rectal lymph nodes and/or tumor deposits: N0 (no visible lymph nodes/deposits or only < 5 mm short axis) Suspicious extra mesorectal lymph nodes: None. OTHER STRUCTURES/ ORGANS INVOLVED: none OTHER FINDINGS: * Left inguinal hernia repair. Small fat-containing right inguinal hernia. * Enhancement along the right greater than left sacroiliac joints, likely degenerative. * Stable 0.7 cm enhancing focus in the left sacrum (22:6). * Widening of the symphysis pubis with fluid, unchanged. * Diverticulosis. The study was reviewed with Dr Blair, a member of the rectal cancer multidisciplinary tumor board. IMPRESSION: Slight interval decrease in size of low rectal tumor with mucin. No abnormal lymph nodes. Stable indeterminate 0.7 cm left sacral lesion. Since 11/04/2023, post treatment primary tumor assessment: Complete/near complete response. mrTRG: Grade 2 - Good response Suspicious Mesorectal lymph nodes: No. Suspicious Extramesorectal lymph nodes: No. * * * * * * * * ADDENDUM #1 * * * * * * * * Addendum to update the impression of the report, which should read as follows: Slight interval decrease in size of treated low rectal tumor with mucin. Note that MRI cannot distinguish between cellular and acellular mucin; however there is no residual soft tissue component to suggest viable disease. No abnormal lymph nodes. Stable indeterminate 0.7 cm left sacral lesion. Since 11/04/2023, post treatment primary tumor assessment: Complete/near complete response. mrTRG: Grade 2 - Good response Suspicious Mesorectal lymph nodes: No. Suspicious Extramesorectal lymph nodes: No. Paradichlorobenzene Machine Operator: PSCB Transcribe Date/Time: May 20 2024 3:44P Dictated by : CALLIE MIRAMONTES MD This examination was interpreted and the report reviewed and electronically signed by: CALLIE MIRAMONTES MD on Apr 22 2024 1:06PM EST This document has been addended by: CALLIE MIRAMONTES MD on May 20 2024 3:54PM EST [id number] Normal [facility] 04-19-2024 ANGELICAN Telephone (CORKALEIGHN) MIGUE GUNTER ([id number]) 1960 M Date Time Provider Department 04/19/24 ERNESTO AGUIAR During your visit today, we recorded the following information about you: Germaine WhitmanfitzFarshad 04/19/2024 12:14 PM Signed The patient calling to discuss the timeframe for rescheduling his ortho shoulder surgery. He reports he cancelled his 04/25 surgery to proceed with the 04/21 MRI and 05/03 scope locally. [phone] Maryann Bacon RN 04/19/2024 1:34 PM Signed Called and spoke with patient Canceled ortho surgery for now and will reschedule in May Discussed CT scan results, MRI scheduled 04/21 Colonoscopy 05/03 and results will review with DR Aguiar Follow up with Marta scheduled in May Patient appreciative of call Allergies As of Date: 04/19/2024 (No Known Allergies) Date Reviewed: 04/13/2024 Reviewed by: Zenaida Garland, RT(R) - Fully Assessed Reason for Visit: Patient Question [7762] Prescriptions as of 04/19/2024 - iv contrast (will be provided with radiology test) MRI Rectum Inject, intravenously, once for 1 dose. No IV access, insert saline lock prior to the beginning of sedation, infusion, injection of imaging exam. Discontinue saline lock post exam. If Pt has a central line or IVAD, may access for administration according to line specific nursing protocol. Once exam is complete flush line and de-access according to line specific nursing protocol in the MR contrast administration guidelines link. - enteric contrast (will be provided with radiology test) MRI RECTUM WO/W. Administer, As Directed One Time Only, via Oral, Rectal, both Oral and Rectal, Enteric Tube, Stoma or Indwelling Catheter,? Enteric Contrast as designated per enteric contrast guidelines - omeprazole (PRILOSEC) 20 mg capsule Take 20 mg by mouth twice daily. - aspirin, enteric coated (ASPIRIN, ENTERIC COATED) 81 mg EC tablet Take 81 mg by mouth once daily. - cholecalciferol (VITAMIN D-3) 2,000 unit tablet Take 2,000 Units by mouth once daily. - furosemide (LASIX) 40 mg tablet Take 40 mg by mouth once daily. - diltiazem (CARDIZEM) 120 mg tablet Take 120 mg by mouth once daily. - enoxaparin (LOVENOX) 150 mg/mL syrg Inject 0.9 mL subcutaneously q 12 HR. - warfarin (COUMADIN) 5 mg tablet Take 1 tablet by mouth once daily. - pantoprazole DR (PROTONIX) 40 mg tablet Take 40 mg by mouth once daily. - Benazepril HCl 40 mg tablet Take 20 mg by mouth once daily. - atorvastatin (LIPITOR) 40 mg tablet Take 10 mg by mouth once daily. Problem List As Of Date 04/19/2024 Noted Resolved Personal history of colonic polyps [Z86.010] 06/30/2016 Encounter Status:Closed by MARYANN BACON on 04/19/24 [facility] 04-15-2024 ANGELICAN Telephone (JUAN) MIGUE GUNTER ([id number]) 1960 M Date Time Provider Department 04/15/24 ERNESTO AGUIAR During your visit today, we recorded the following information about you: Marquis Dentonssica 04/15/2024 3:16 PM Signed [phone] Myriam called back and states they are ok with getting MRI rectum done at [facility]. Would like the order placed for scheduling. Allergies As of Date: 04/15/2024 (No Known Allergies) Date Reviewed: 04/13/2024 Reviewed by: Zenaida Garland, RT(R) - Fully Assessed Reason for Visit: Patient Update [1234] Prescriptions as of 04/15/2024 - omeprazole (PRILOSEC) 20 mg capsule Take 20 mg by mouth twice daily. - aspirin, enteric coated (ASPIRIN, ENTERIC COATED) 81 mg EC tablet Take 81 mg by mouth once daily. - cholecalciferol (VITAMIN D-3) 2,000 unit tablet Take 2,000 Units by mouth once daily. - furosemide (LASIX) 40 mg tablet Take 40 mg by mouth once daily. - diltiazem (CARDIZEM) 120 mg tablet Take 120 mg by mouth once daily. - enoxaparin (LOVENOX) 150 mg/mL syrg Inject 0.9 mL subcutaneously q 12 HR. - warfarin (COUMADIN) 5 mg tablet Take 1 tablet by mouth once daily. - pantoprazole DR (PROTONIX) 40 mg tablet Take 40 mg by mouth once daily. - Benazepril HCl 40 mg tablet Take 20 mg by mouth once daily. - atorvastatin (LIPITOR) 40 mg tablet Take 10 mg by mouth once daily. Problem List As Of Date 04/15/2024 Noted Resolved Personal history of colonic polyps [Z86.010] 06/30/2016 Encounter Status:Closed by JUNE DENTON on 04/15/[address] [facility] [address] ABD/PEL W IVCONon 024 CT ABD/PEL W IVCON * * *Final Report* * * DATE OF EXAM: Apr 14 2024 3:46PM [facility] 0530 - CT ABD/PEL W IVCON / PROCEDURE REASON: Malignant neoplasm of rectum (HCC) * * * * Physician Interpretation * * * * EXAMINATION: CT ABDOMEN AND PELVIS WITH IV CONTRAST CLINICAL HISTORY: 64-year-old man with a history of rectal cancer status post total neoadjuvant therapy now on watch and wait protocol TECHNIQUE: CT of the abdomen and pelvis was performed using standard technique, scanning from just above the dome of the diaphragm to the symphysis pubis. MQ: CTAP_3 Contrast: Central IV: 100 ml of Omnipaque 350 Oral: 10 ml of Omni 240 10-25ml diluted with water CT Radiation dose: Integrated Dose-length product (DLP) for this visit = 1910 mGy*cm. CT Dose Reduction Employed: Automated exposure control(AEC) and iterative recon COMPARISON: 07/27/2023 and 11/11/2023 RESULT: Liver: No mass. Marked left lobe atrophy, unchanged. Few subcentimeter low-attenuation lesions in the atrophic left lobe and caudate, similar to the prior exam, although too small to characterize. Biliary: No bile duct dilation. Gallbladder is unremarkable. Spleen: No mass. No splenomegaly. Pancreas: No mass or duct dilation. Adrenals: No mass. Kidneys: No mass, calculus or hydronephrosis. GI tract: No dilation or wall thickening. Colonic diverticulosis, without acute diverticulitis. Lymph nodes: No abdominal or pelvic lymphadenopathy. Mesentery/Peritoneum: No ascites or mass. Retroperitoneum: No mass. Vasculature: - Abdominal aorta and iliac arteries: No aneurysm. - Celiac and SMA: Patent without stenosis. - Portal venous system (SMV, splenic vein, portal vein and branches): Patent aside from left hepatic lobe vasculature which is presumed atrophic. - Hepatic veins: Otherwise patent. Pelvis: No mass, ascites or fluid collection. Bones/Soft Tissues: Degenerative changes. Fracture of the left greater trochanter (8:128), new since 11/11/2023. Probable injury to the inferior endplate of L5, also present on 11/11/2023. Tiny fat-containing umbilical hernia. Lower thorax: A chest CT performed will be reported separately. Localizer images: No additional findings. IMPRESSION: New fracture of the left greater trochanter relative to 11/11/2023. No metastatic disease in the abdomen or pelvis. Paradichlorobenzene Machine Operator: CLAUS Transcribe Date/Time: Apr 14 2024 4:00P Dictated by : ANDERS LILLY MD This examination was interpreted and the report reviewed and electronically signed by: ANDERS LILLY MD on Apr 14 2024 4:12PM EST [id number] [facility] CT Abdomen and Pelvis W cont rast Yancy 04-14-2024 IMPRESSION: New fracture of the left greater trochanter relative to 11/11/2023. No metastatic disease in the abdomen or pelvis. Paradichlorobenzene Machine Operator: [facility] Transcribe Date/Time: Apr 14 2024 4:00P Dictated by : ANDERS LILLY MD This examination was interpreted and the report reviewed and electronically signed by: ANDERS LILLY MD on Apr 14 2024 4:12PM EST DIVISION OF RADIOLOGY * * *Final Report* * * DATE OF EXAM: Apr 14 2024 3:46PM [facility] 0530 - CT ABD/PEL W IVCON / PROCEDURE REASON: Malignant neoplasm of rectum (HCC) * * * * Physician Interpretation * * * * EXAMINATION: CT ABDOMEN AND PELVIS WITH IV CONTRAST CLINICAL HISTORY: 64-year-old man with a history of rectal cancer status post total neoadjuvant therapy now on watch and wait protocol TECHNIQUE: CT of the abdomen and pelvis was performed using standard technique, scanning from just above the dome of the diaphragm to the symphysis pubis. MQ: CTAP_3 Contrast: Central IV: 100 ml of Omnipaque 350 Oral: 10 ml of Omni 240 10-25ml diluted with water CT Radiation dose: Integrated Dose-length product (DLP) for this visit = 1910 mGy*cm. CT Dose Reduction Employed: Automated exposure control(AEC) and iterative recon COMPARISON: 07/27/2023 and 11/11/2023 RESULT: Liver: No mass. Marked left lobe atrophy, unchanged. Few subcentimeter low-attenuation lesions in the atrophic left lobe and caudate, similar to the prior exam, although too small to characterize. Biliary: No bile duct dilation. Gallbladder is unremarkable. Spleen: No mass. No splenomegaly. Pancreas: No mass or duct dilation. Adrenals: No mass. Kidneys: No mass, calculus or hydronephrosis. GI tract: No dilation or wall thickening. Colonic diverticulosis, without acute diverticulitis. Lymph nodes: No abdominal or pelvic lymphadenopathy. Mesentery/Peritoneum: No ascites or mass. Retroperitoneum: No mass. Vasculature: - Abdominal aorta and iliac arteries: No aneurysm. - Celiac and SMA: Patent without stenosis. - Portal venous system (SMV, splenic vein, portal vein and branches): Patent aside from left hepatic lobe vasculature which is presumed atrophic. - Hepatic veins: Otherwise patent. Pelvis: No mass, ascites or fluid collection. Bones/Soft Tissues: Degenerative changes. Fracture of the left greater trochanter (8:128), new since 11/11/2023. Probable injury to the inferior endplate of L5, also present on 11/11/2023. Tiny fat-containing umbilical hernia. Lower thorax: A chest CT performed will be reported separately. Localizer images: No additional findings. DIVISION OF RADIOLOGY Provider, [facility] - 04/14/2024 * * *Final Report* * * DATE OF EXAM: Apr 14 2024 3:46PM [facility] 0530 - CT ABD/PEL W IVCON / PROCEDURE REASON: Malignant neoplasm of rectum (HCC) * * * * Physician Interpretation * * * * EXAMINATION: CT ABDOMEN AND PELVIS WITH IV CONTRAST CLINICAL HISTORY: 64-year-old man with a history of rectal cancer status post total neoadjuvant therapy now on watch and wait protocol TECHNIQUE: CT of the abdomen and pelvis was performed using standard technique, scanning from just above the dome of the diaphragm to the symphysis pubis. MQ: CTAP_3 Contrast: Central IV: 100 ml of Omnipaque 350 Oral: 10 ml of Omni 240 10-25ml diluted with water CT Radiation dose: Integrated Dose-length product (DLP) for this visit = 1910 mGy*cm. CT Dose Reduction Employed: Automated exposure control(AEC) and iterative recon COMPARISON: 07/27/2023 and 11/11/2023 RESULT: Liver: No mass. Marked left lobe atrophy, unchanged. Few subcentimeter low-attenuation lesions in the atrophic left lobe and caudate, similar to the prior exam, although too small to characterize. Biliary: No bile duct dilation. Gallbladder is unremarkable. Spleen: No mass. No splenomegaly. Pancreas: No mass or duct dilation. Adrenals: No mass. Kidneys: No mass, calculus or hydronephrosis. GI tract: No dilation or wall thickening. Colonic diverticulosis, without acute diverticulitis. Lymph nodes: No abdominal or pelvic lymphadenopathy. Mesentery/Peritoneum: No ascites or mass. Retroperitoneum: No mass. Vasculature: - Abdominal aorta and iliac arteries: No aneurysm. - Celiac and SMA: Patent without stenosis. - Portal venous system (SMV, splenic vein, portal vein and branches): Patent aside from left hepatic lobe vasculature which is presumed atrophic. - Hepatic veins: Otherwise patent. Pelvis: No mass, ascites or fluid collection. Bones/Soft Tissues: Degenerative changes. Fracture of the left greater trochanter (8:128), new since 11/11/2023. Probable injury to the inferior endplate of L5, also present on 11/11/2023. Tiny fat-containing umbilical hernia. Lower thorax: A chest CT performed will be reported separately. Localizer images: No additional findings. IMPRESSION IMPRESSION: New fracture of the left greater trochanter relative to 11/11/2023. No metastatic disease in the abdomen or pelvis. Paradichlorobenzene Machine Operator: CLAUS Transcribe Date/Time: Apr 14 2024 4:00P Dictated by : ANDERS LILLY MD This examination was interpreted and the report reviewed and electronically signed by: ANDERS LILLY MD on Apr 14 2024 4:12PM EST [facility] Radiology Study observation (narrative) [facility] CT Abdomen and Pelvis W cont rast IVOrdered By: [facility] Provider on 04-14-2024 [facility] CT CHEST W IVCONon CT CHEST W IVCON * * *Final Report* * * DATE OF EXAM: Apr 14 2024 3:46PM [facility] 0539 - CT CHEST W IVCON / PROCEDURE REASON: Malignant neoplasm of rectum (HCC) * * * * Physician Interpretation * * * * EXAMINATION: CHEST CT WITH CONTRAST CLINICAL HISTORY: Malignant neoplasm of rectum (HCC). Technique: Spiral CT acquisition of the chest from the thoracic inlet to the upper abdomen following IV contrast. MQ: CTCW_6 Contrast: 100 mL Omnipaque [address] Radiation dose: Integrated Dose-length product (DLP) for this visit = 1910 mGy*cm CT Dose Reduction Employed: Automated exposure control(AEC) and iterative recon Comparison: Post-contrast CT scan of the chest 07/27/2023 RESULT: Limitations: None. Lines, tubes, and devices: The tip of the right IJ port catheter is in the right atrium. Lung parenchyma and airways: The trachea and mainstem bronchi appear patent and devoid of endobronchial lesion. The lungs appear clear of focal consolidation, indeterminant nodule or mass. There are scattered areas of bilateral bronchial wall thickening, particularly at the lung bases, consistent with remote or chronic airways inflammation. There is stable mild relative elevation of the left hemidiaphragm. There is passive atelectasis of the lung bases. Pleural space: No pleural effusion or focal pleural thickening is identified. There is no pneumothorax. Lower neck, lymph nodes, and mediastinum: There is a stable subcentimeter low-density nodule of the left thyroid lobe. No supraclavicular lymphadenopathy is identified. No region of intrathoracic lymphadenopathy has developed, including the axillae. The esophagus appears nondilated. Heart, pericardium, and thoracic vessels: The thoracic aorta appears normal in course and caliber. The main and central pulmonary arteries are within normal limits of diameter. No specific cardiac chamber enlargement is identified. There is no pericardial effusion. Bones and soft tissues: The vertebral body heights appear symmetric and well-maintained. There are mild degenerative changes in the thoracic spine. No lytic or destructive osseous lesion is identified. The soft tissues of the chest wall appear unremarkable. Upper abdomen: Concurrently performed CT examination of the abdomen and pelvis has been interpreted separately. Localizer images: No additional findings. The greater trochanteric fracture of the left femur identified on the abdominal CT is not clearly visible on the rigger up image. IMPRESSION: No CT evidence of metastatic disease in the chest. Little interval change since 07/27/2023. Paradichlorobenzene Machine Operator: CLAUS Transcribe Date/Time: Apr 14 2024 6:00P Dictated by : MARTHA CARMONA MD This examination was interpreted and the report reviewed and electronically signed by: MARTHA CARMONA MD on Apr 14 2024 6:10PM EST [id number] [facility] CT Chest W contrast Yancy IMPRESSION: No CT evidence of metastatic disease in the chest. Little interval change since 07/27/2023. Paradichlorobenzene Machine Operator: [facility] Transcribe Date/Time: Apr 14 2024 6:00P Dictated by : MARTHA CARMONA MD This examination was interpreted and the report reviewed and electronically signed by: MARTHA CARMONA MD on Apr 14 2024 6:10PM [facility] DIVISION OF RADIOLOGY * * *Final Report* * * DATE OF EXAM: Apr 14 2024 3:46PM [facility] 0539 - CT CHEST W IVCON / PROCEDURE REASON: Malignant neoplasm of rectum (HCC) * * * * Physician Interpretation * * * * EXAMINATION: CHEST CT WITH CONTRAST CLINICAL HISTORY: Malignant neoplasm of rectum (HCC). Technique: Spiral CT acquisition of the chest from the thoracic inlet to the upper abdomen following IV contrast. MQ: CTCW_6 Contrast: 100 mL Omnipaque [address] Radiation dose: Integrated Dose-length product (DLP) for this visit = 1910 mGy*cm CT Dose Reduction Employed: Automated exposure control(AEC) and iterative recon Comparison: Post-contrast CT scan of the chest 07/27/2023 RESULT: Limitations: None. Lines, tubes, and devices: The tip of the right IJ port catheter is in the right atrium. Lung parenchyma and airways: The trachea and mainstem bronchi appear patent and devoid of endobronchial lesion. The lungs appear clear of focal consolidation, indeterminant nodule or mass. There are scattered areas of bilateral bronchial wall thickening, particularly at the lung bases, consistent with remote or chronic airways inflammation. There is stable mild relative elevation of the left hemidiaphragm. There is passive atelectasis of the lung bases. Pleural space: No pleural effusion or focal pleural thickening is identified. There is no pneumothorax. Lower neck, lymph nodes, and mediastinum: There is a stable subcentimeter low-density nodule of the left thyroid lobe. No supraclavicular lymphadenopathy is identified. No region of intrathoracic lymphadenopathy has developed, including the axillae. The esophagus appears nondilated. Heart, pericardium, and thoracic vessels: The thoracic aorta appears normal in course and caliber. The main and central pulmonary arteries are within normal limits of diameter. No specific cardiac chamber enlargement is identified. There is no pericardial effusion. Bones and soft tissues: The vertebral body heights appear symmetric and well-maintained. There are mild degenerative changes in the thoracic spine. No lytic or destructive osseous lesion is identified. The soft tissues of the chest wall appear unremarkable. Upper abdomen: Concurrently performed CT examination of the abdomen and pelvis has been interpreted separately. Localizer images: No additional findings. The greater trochanteric fracture of the left femur identified on the abdominal CT is not clearly visible on the rigger up image. DIVISION OF RADIOLOGY Provider, [facility] - 04/14/2024 * * *Final Report* * * DATE OF EXAM: Apr 14 2024 3:46PM [facility] 0539 - CT CHEST W IVCON / PROCEDURE REASON: Malignant neoplasm of rectum (HCC) * * * * Physician Interpretation * * * * EXAMINATION: CHEST CT WITH CONTRAST CLINICAL HISTORY: Malignant neoplasm of rectum (HCC). Technique: Spiral CT acquisition of the chest from the thoracic inlet to the upper abdomen following IV contrast. MQ: CTCW_6 Contrast: 100 mL Omnipaque [address] Radiation dose: Integrated Dose-length product (DLP) for this visit = 1910 mGy*cm CT Dose Reduction Employed: Automated exposure control(AEC) and iterative recon Comparison: Post-contrast CT scan of the chest 07/27/2023 RESULT: Limitations: None. Lines, tubes, and devices: The tip of the right IJ port catheter is in the right atrium. Lung parenchyma and airways: The trachea and mainstem bronchi appear patent and devoid of endobronchial lesion. The lungs appear clear of focal consolidation, indeterminant nodule or mass. There are scattered areas of bilateral bronchial wall thickening, particularly at the lung bases, consistent with remote or chronic airways inflammation. There is stable mild relative elevation of the left hemidiaphragm. There is passive atelectasis of the lung bases. Pleural space: No pleural effusion or focal pleural thickening is identified. There is no pneumothorax. Lower neck, lymph nodes, and mediastinum: There is a stable subcentimeter low-density nodule of the left thyroid lobe. No supraclavicular lymphadenopathy is identified. No region of intrathoracic lymphadenopathy has developed, including the axillae. The esophagus appears nondilated. Heart, pericardium, and thoracic vessels: The thoracic aorta appears normal in course and caliber. The main and central pulmonary arteries are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 Rectal, Enteric Tube, Stoma or Indwelling Catheter,? Enteric Contrast as designated per enteric contrast guidelines - omeprazole (PRILOSEC) 20 mg capsule Take 20 mg by mouth twice daily. - aspirin, enteric coated (ASPIRIN, ENTERIC COATED) 81 mg EC tablet Take 81 mg by mouth once daily. - cholecalciferol (VITAMIN D-3) 2,000 unit tablet Take 2,000 Units by mouth once daily. - furosemide (LASIX) 40 mg tablet Take 40 mg by mouth once daily. - diltiazem (CARDIZEM) 120 mg tablet Take 120 mg by mouth once daily. - enoxaparin (LOVENOX) 150 mg/mL syrg Inject 0.9 mL subcutaneously q 12 HR. - warfarin (COUMADIN) 5 mg tablet Take 1 tablet by mouth once daily. - pantoprazole DR (PROTONIX) 40 mg tablet Take 40 mg by mouth once daily. - Benazepril HCl 40 mg tablet Take 20 mg by mouth once daily. - atorvastatin (LIPITOR) 40 mg tablet Take 10 mg by mouth once daily. Problem List As Of Date 10/28/2023 Noted Resolved Personal history of colonic polyps [Z86.010] 06/30/2016 Encounter Status:Closed by JUNE DENTON [facility] ([id number]) 1960 M Date Time Provider Department 10/26/23 ERNESTO AGUIAR During your visit today, we recorded the following information about you: Germaine Jennifer Farshad 10/29/2023 9:19 AM Addendum Myriam, the patient's is calling to discuss his completion of his CORKY treatment. She wants to discuss the timing for his next colonoscopy and having it done locally. She needs the orders placed for the repeat imaging. [phone] Maryann Bacon RN 10/27/2023 5:54 PM Signed Called patient number listed in message, no answer, left detailed VM requesting patient or to call back to discuss scheduling imaging and scope after CORKY - happy to coordinate all in one day here at [facility] Allergies As of Date: 10/26/2023 (No Known Allergies) Date Reviewed: 08/04/2023 Reviewed by: Ernesto Aguiar MD - Fully Assessed Prescriptions as of 10/29/2023 - iv contrast (will be provided with radiology test) MRI Rectum Inject, intravenously, once for 1 dose. No IV access, insert saline lock prior to the beginning of sedation, infusion, injection of imaging exam. Discontinue saline lock post exam. If Pt has a central line or IVAD, may access for administration according to line specific nursing protocol. Once exam is complete flush line and de-access according to line specific nursing protocol in the MR contrast administration guidelines link. - enteric contrast (will be provided with radiology test) MRI RECTUM WO/W. Administer, As Directed One Time Only, via Oral, Rectal, both Oral and Rectal, Enteric Tube, Stoma or Indwelling Catheter,? Enteric Contrast as designated per enteric contrast guidelines - omeprazole (PRILOSEC) 20 mg capsule Take 20 mg by mouth twice daily. - aspirin, enteric coated (ASPIRIN, ENTERIC COATED) 81 mg EC tablet Take 81 mg by mouth once daily. - cholecalciferol (VITAMIN D-3) 2,000 unit tablet Take 2,000 Units by mouth once daily. - furosemide (LASIX) 40 mg tablet Take 40 mg by mouth once daily. - diltiazem (CARDIZEM) 120 mg tablet Take 120 mg by mouth once daily. - enoxaparin (LOVENOX) 150 mg/mL syrg Inject 0.9 mL subcutaneously q 12 HR. - warfarin (COUMADIN) 5 mg tablet Take 1 tablet by mouth once daily. - pantoprazole DR (PROTONIX) 40 mg tablet Take 40 mg by mouth once daily. - Benazepril HCl 40 mg tablet Take 20 mg by mouth once daily. - atorvastatin (LIPITOR) 40 mg tablet Take 10 mg by mouth once daily. Problem List As Of Date 10/26/2023 Noted Resolved Personal history of colonic polyps [Z86.010] 06/30/2016 Encounter Status:Closed by [facility] Office Visit (JUAN ) MIGUE GUNTER ([id number]) 1960 M Date Time Provider Department 08/04/23 1:00 PM ERNESTO AGUIAR During your visit today, we recorded the following information about you: Weight Height 129.7 kg 1.803 m Ernesto Aguiar MD 08/04/2023 12:55 PM Signed COLORECTAL SURGERY Follow-up August 04, 2023 Chief [...] closed Resting tone: NORMAL Squeeze tone: NORMAL Soil Checker present: Yes, Miranda Gutierrez Palpable mass at [...] mortality and/or complications of treatment plan: moderate [facility] STAFF PHYSICIAN NOTE OF PERSONAL [...] restaging, present at MDT, will determine non-op (more content not included)... [facility] Flexible Sigmoidoscopyon Flexible sigmoidoscopy A30 Gastrointestinal Endoscopy Patient Name: Migue Gunter Procedure Date: 08/04/2023 9:14 AM Date of : 1960 Admit Type: Ambulatory Age: 63 Gender: Male Note Status: Finalized Attending MD: Ernesto Aguiar MD Procedure: Flexible Sigmoidoscopy Indications: Personal history of malignant rectal neoplasm Providers: Ernesto Aguiar MD Patient Profile: This is a 63 year old male. Refer to note in patient chart for documentation of history and physical. Referring Physician: Medicines: None Complications: No immediate complications. Estimated blood loss: None. Requesting Provider: Procedure: Pre-Anesthesia Assessment: - Prior to the procedure, a History and Physical was performed, and patient medications and allergies were reviewed. The patient's tolerance of previous anesthesia was also reviewed. The risks and benefits of the procedure and the sedation options and risks were discussed with the patient. All questions were answered, and informed consent was obtained. Prior Anticoagulants: The patient has taken no 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 or antiplatelet agents. ASA Grade Assessment: II - A patient with mild systemic disease. After reviewing the risks and benefits, the patient was deemed in satisfactory condition to undergo the procedure. After obtaining informed consent, the scope was passed under direct vision. The was introduced through the anus and advanced to the sigmoid colon. The flexible sigmoidoscopy was accomplished without difficulty. The patient tolerated the procedure well. Moderate Sedation: No sedation was administered for this procedure. Findings: The digital rectal exam revealed a [...] - left lateral. - No specimens collected. Estimated Blood Loss: Estimated blood loss: none. Recommendation: - Discharge patient to home. - Resume previous diet. - Continue with neoadjuvant treatment Procedure Code(s): --- Professional --- 96060, Sigmoidoscopy, flexible; diagnostic, including collection of specimen(s) by brushing or washing, when performed (separate procedure) CPT copyright 2020 [employer]. All rights reserved. The codes documented in this report are preliminary and upon pre coder review may be revised to meet current compliance requirements. Attending Participation: I was present and participated during the entire procedure, including non-donovan portions. Scope In: Scope Out: MD Ernesto Mckeon MD 08/04/2023 12:53:30 PM This report has been signed electronically. Number of Addenda: 0 Note Initiated On: 08/04/2023 9:14 AM [facility] SIGMOIDOSCOPYon 08-04-2023 [facility] CNPNon 07-27-2023 CNPN Telephone (CORSMN) MIGUE GUNTER ([id number]) 1960 M Date Time Provider Department 07/27/23 JONNA CARTWRIGHT During your visit today, we recorded the following information about you: Jonna Cartwright PA-C 07/27/2023 4:22 PM Signed Called and let patient know CT chest/abd/pel [...] understands. Jonna Cartwright PA-C 07/27/2023 4:21 PM Allergies As of Date: 07/27/2023 (No Known Allergies) Date Reviewed: 07/24/2023 Reviewed by: Zenaida Garland, RT(R) - Fully Assessed Reason for Visit: Results [95] Cmt: CT chest/abd/pel results Prescriptions as of 07/27/2023 - omeprazole (PRILOSEC) 20 mg capsule Take 20 mg by mouth twice daily. - aspirin, enteric coated (ASPIRIN, ENTERIC COATED) 81 mg EC tablet Take 81 mg by mouth once daily. - cholecalciferol (VITAMIN D-3) 2,000 unit tablet Take 2,000 Units by mouth once daily. - furosemide (LASIX) 40 mg tablet Take 40 mg by mouth once daily. - diltiazem (CARDIZEM) 120 mg tablet Take 120 mg by mouth once daily. - enoxaparin (LOVENOX) 150 mg/mL syrg Inject 0.9 mL subcutaneously q 12 HR. - warfarin (COUMADIN) 5 mg tablet Take 1 tablet by mouth once daily. - pantoprazole DR (PROTONIX) 40 mg tablet Take 40 mg by mouth once daily. - Benazepril HCl 40 mg tablet Take 20 mg by mouth once daily. - atorvastatin (LIPITOR) 40 mg tablet Take 10 mg by mouth once daily. Problem List As Of Date 07/27/2023 Noted Resolved Personal history of colonic polyps [Z86.010] 06/30/2016 Encounter Status:Closed by JONNA CARTWRIGHT on 07/27/[address] [facility] [address] ABD/PEL W IVCONon 023 CT ABD/PEL W IVCON * * *Final Report* * * DATE OF EXAM: Jul 27 2023 2:45PM [facility] 0530 - CT ABD/PEL W IVCON / PROCEDURE REASON: Malignant neoplasm of rectum (HCC) * * * * Physician Interpretation * * * * EXAMINATION: CT ABDOMEN AND PELVIS WITH IV CONTRAST CLINICAL HISTORY: 63-year-old man with a history of rectal cancer TECHNIQUE: CT of the abdomen and pelvis was performed using standard technique, scanning from just above the dome of the diaphragm to the symphysis pubis. MQ: CTAP_3 Contrast: IV: 100 ml of Omnipaque 350 Oral: 12 ml of Omni 240 10-25ml diluted with water CT Radiation dose: Integrated Dose-length product (DLP) for this visit = 1919 mGy*cm. CT Dose Reduction Employed: Automated exposure control(AEC) and iterative recon COMPARISON: 05/05/2023 RESULT: Liver: No mass. Marked left lobe atrophy, unchanged. Few subcentimeter low-attenuation lesions in the atrophic left lobe and caudate, similar to the prior exam, although too small to accurately characterize. Biliary: No bile duct dilation. Gallbladder is unremarkable. Spleen: No mass. No splenomegaly. Pancreas: No mass or duct dilation. Adrenals: No mass. Kidneys: No mass, calculus or hydronephrosis. GI tract: No dilation or wall thickening. Colonic diverticulosis, without acute diverticulitis. Lymph nodes: No abdominal or pelvic lymphadenopathy. Mesentery/Peritoneum: No ascites or mass. Retroperitoneum: No mass. Vasculature: - Abdominal aorta and iliac arteries: No aneurysm. - Celiac and SMA: Patent without stenosis. - Portal venous system (SMV, splenic vein, portal vein and branches): Patent. - Hepatic veins: Patent. Pelvis: No mass, ascites or fluid collection. Bones/Soft Tissues: Degenerative changes without suspicious osseous lesion. Lower thorax: A chest CT performed will be reported separately. Patient Educator (topogram) images: No additional findings. IMPRESSION: No metastatic disease in the abdomen or pelvis. Paradichlorobenzene Machine Operator: PSCB Transcribe Date/Time: Jul 27 2023 3:22P Dictated by : ANDERS LILLY MD This examination was interpreted and the report reviewed and electronically signed by: ANDERS LILLY MD on Jul 27 2023 3:27PM EST [id number] [facility] CT CHEST W IVCONon 3 CT CHEST W IVCON * * *Final Report* * * DATE OF EXAM: Jul 27 2023 2:45PM [facility] 0539 - CT CHEST W IVCON / PROCEDURE REASON: Malignant neoplasm of rectum (HCC) * * * * Physician Interpretation * * * * EXAMINATION: CHEST CT WITH CONTRAST CLINICAL HISTORY: Malignant neoplasm of rectum Technique: Spiral CT acquisition of the chest from the thoracic inlet to the upper abdomen following IV contrast. MQ: CTCW_6 Contrast: 100 mL Omnipaque [address] Radiation dose: Integrated Dose-length product (DLP) for this visit = 1919 mGy*cm CT Dose Reduction Employed: Automated exposure control(AEC) and iterative recon Comparison: None. RESULT: Limitations: None. Lines, tubes, and devices: None. Lung parenchyma and airways: No consolidation. Mild scarring with bronchiectasis in left lung base, likely sequela of previous infection or aspiration. No suspicious pulmonary nodule. The central airways are patent. Pleural space: No pleural effusion. No pleural thickening. Lower neck, lymph nodes, and mediastinum: The imaged thyroid gland is normal. No lymphadenopathy in the supraclavicular, axillary, mediastinal, or hilar regions. Heart, pericardium, and thoracic vessels: The thoracic aorta and main pulmonary artery are normal in caliber. The cardiac chambers are normal in size. No coronary artery atherosclerotic calcifications are noted, although the study is not optimized for coronary assessment. No pericardial effusion or thickening. Bones and soft tissues: No destructive bone lesion. Chest wall is unremarkable. Upper abdomen: Dictated separately. Patient Educator (topogram) images: No additional findings. IMPRESSION: No CT evidence of acute abnormality. No findings of metastatic disease in the thorax. COMMUNICATION:? Results will be communicated with the ordering provider via [employer] staff message by [facility] within 2 business days of report finalization. Paradichlorobenzene Machine Operator: CLAUS Transcribe Date/Time: Jul 27 2023 3:10P Dictated by : CELY MILLER MD This examination was interpreted and the report reviewed and electronically signed by: CELY MILLER MD on Jul 27 2023 3:13PM EST [id number] [facility] No Panel Informationon 07-27 [facility] CNPN Telephone (CORSMN) MIGUE GUNTER ([id number]) 1960 M Date Time Provider Department 07/15/23 LAURENCE QUINN During your visit today, we recorded the following information about you: Laurence Quinn RN 07/15/2023 12:53 PM Signed SPECIALTY CARE COORDINATION FOLLOW-UP NOTE Spoke with patient. Advised that MRI was done on 07/13 so additional MRI scheduled on 08/[address] Aguiar will see patient on 08/04 in office for a flex sig and he will be presented at MDT for formal recommendations Laurence Quinn RN July 15, 2023 Allergies As of Date: 07/15/2023 (No Known Allergies) Date Reviewed: 05/12/2023 Reviewed by: Ernesto Aguiar MD - Fully Assessed Reason for Visit: Care Coordination [8241] Prescriptions as of 07/15/2023 - omeprazole (PRILOSEC) 20 mg capsule Take 20 mg by mouth twice daily. - aspirin, enteric coated (ASPIRIN, ENTERIC COATED) 81 mg EC tablet Take 81 mg by mouth once daily. - cholecalciferol (VITAMIN D-3) 2,000 unit tablet Take 2,000 Units by mouth once daily. - furosemide (LASIX) 40 mg tablet Take 40 mg by mouth once daily. - diltiazem (CARDIZEM) 120 mg tablet Take 120 mg by mouth once daily. - enoxaparin (LOVENOX) 150 mg/mL syrg Inject 0.9 mL subcutaneously q 12 HR. - warfarin (COUMADIN) 5 mg tablet Take 1 tablet by mouth once daily. - pantoprazole DR (PROTONIX) 40 mg tablet Take 40 mg by mouth once daily. - Benazepril HCl 40 mg tablet Take 20 mg by mouth once daily. - atorvastatin (LIPITOR) 40 mg tablet Take 10 mg by mouth once daily. Problem List As Of Date 07/15/2023 Noted Resolved Personal history of colonic polyps [Z86.010] 06/30/2016 Encounter Status:Closed by LAURENCE QUINN on 07/15/23 [facility] MRI RECTUM WO/W IVCONon 10-3 MRI RECTUM WO/W IVCON * * *Final Report* * * DATE OF EXAM: Jul 13 2023 10:03AM [facility] 0754 - MRI RECTUM WO/W IVCON / PROCEDURE REASON: Malignant neoplasm of rectum (HCC) * * * * Physician Interpretation * * * * MRI OF THE PELVIS WITHOUT AND WITH CONTRAST: RECTAL CANCER RESTAGING CLINICAL HISTORY: Rectal Cancer RESTAGING Pretreatment Tumor Staging: T3 N1 Rectal tumor histology: Invasive adenocarcinoma, 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 Prior chemotherapy or radiation: Yes COMPARISON: MRI pelvis 05/20/2023 TECHNIQUE: Magnet: Siemens Altea 1.5T scanner. Multiplanar MRI with multiple sequences before and after contrast. Contrast: IV: 20 ml of Dotarem Rectal: 60 ml of Surgilube RESULT: TREATED PRIMARY TUMOR CHARACTERISTICS (Compare to pre-treatment): DWI (with associated low ADC) ? restricted diffusion and low ADC in tumor or tumor bed: Artifact/indeterminant . MRI-T2W: Intermediate signal intensity, no dark T2/scar. T2 bright mucin (cannot distinguish between cellular and acellular mucin): Absent. Description: Wall thickening involving the anterior, left lateral, and posterior wall is of intermediate T2 signal, likely reflective of post-treatment edema with residual tumor. Distance to the anal verge: 2.9 cm (2:18) Distance to the top of sphincter complex/anorectal junction: 0 cm (2:18) Relationship to anterior peritoneal reflection: Below Craniocaudal length: 5.0 cm (25:39) Pre-treatment craniocaudal length: 6.6 cm Tumor location: Low rectum (0-5 cm) Maximal wall thickness: 1.9 cm (7:5), may be secondary to edema Pre-treatment wall thickness: 1.1 cm Invasion of anal sphincter complex: Abuts internal sphincter (IAS) without definite invasion. Anal canal involvement: None. TUMOR DEPOSITS AND EXTRAMURAL VASCULAR INVASION (EMVI): Tumor deposits:(separate from metastatic lymph nodes): 0.6 x 0.6 cm enhancing tumor deposit with restricted diffusion on the left, previously measuring 0.8 cm in greatest dimension. EMVI: No (none evident pre-treatment). MESORECTAL FASCIA (MRF): Shortest distance of extraluminal part of the tumor to MRF: 1.0 cm (7:7) Tumor extension through the peritonealized portion of the rectum into peritoneal fat: No extension into peritoneal fat. Is there a separate tumor deposit, LN or EMVI threatening (?1mm and ?2 mm) or invading (< 1 mm) the MRF? No. T4 disease interval change: None POST-TREATMENT TUMOR REGRESSION: mrTRG: Grade 4 - Partial response LYMPH NODES: Mesorectal/superior rectal lymph nodes and/or tumor deposits: N+ (any nodes ? 5 mm) Index nodes: Left lateral mesorectal, (7:6) Left posterolateral mesorectal, (7:2) Suspicious extra mesorectal lymph nodes: None. OTHER STRUCTURES/ ORGANS INVOLVED: 0.7 cm enhancing focus in the left sacrum (20:21) is indeterminate. OTHER FINDINGS: Left inguinal hernia mesh repair. T2 hypointense, enhancing foci in the sacrum at the bilateral superior sacroiliac joints correspond with areas of sclerosis seen on pretreatment CT 05/05/2023, and likely reflect degenerative changes. The study was interpreted by Dr. Mccord, a member of the rectal cancer multidisciplinary tumor board. IMPRESSION: PARTIAL RESPONSE, WITH DECREASE IN INTRALUMINAL [...] nodes: Yes. Suspicious Extramesorectal lymph nodes: No. v 02/13/21 Paradichlorobenzene Machine Operator: CLAUS Transcribe Date/Time: Jul 13 2023 10:47A Dictated by : YAMILEX YEE, This examination was interpreted and the report reviewed and electronically signed by: SAM MCCORD MD on Jul 13 2023 4:29PM EST [id number] Normal [facility] CEA SerPl-ncon 07-09-2023 Carcinoembryonic Ag [Mass/Vol] 1.8 ng/mL Normal <=2.9 [facility] Comment on above: Order Comment: Speci men Type: BLOOD SPECIMEN Ordering Facility: [facility] Address: [address] [place] [address] Result Comment: Carc inoembryonic antigen test is used as an aid in monitoring response to treatment or recurrence in patients with established colorectal, breast, lung, prostatic, pancreatic, and ovarian carcinomas. Clinical correlation is required. The Carcinoembryonic antigen test was performed using the [employer] DXI paramagnetic particle chemiluminescent immunoassay method. Results obtained with different assay methods or kits cannot be used interchangeably. Performed By: #### 2 039-6 #### [facility] CLIA [id number] [address] [place] [address] [place] CREATININE Don 07-09-2023 Creatinine [Mass/Vol] 0.97 mg/dL Normal 0.73-1.22 [facility] Comment on above: Order Comment: Speci men Type: BLOOD SPECIMEN Ordering Facility: [facility] Address: [address] [place] [address] Performed By: #### 2 039-6 #### [facility] CLIA [id number] [address] [place] [address] [place] [facility] Creatinine and Glomerular filtration rate.predicted panel (S/P/Bld) 87 mL/min/1.73m??? Normal >=60 [facility] Comment on above: Order Comment: Percy sydnie Type: BLOOD SPECIMEN Ordering Facility: [facility] Address: [address] [place] [address] Result Comment: Laureen mated Glomerular Filtration Rate (eGFR) is calculated using the 2020 CKD-EPI creatinine equation. This equation utilizes serum creatinine, sex, and age as parameters. The creatinine assay has traceable calibration to isotope dilution-mass spectrometry. Refer to KDIGO guidelines for clinical interpretation. In patients with unstable renal function, e.g. those with acute kidney injury, the eGFR may not accurately reflect actual GFR. Performed By: #### 2 039-6 #### [facility] CLIA [id number] [address] [place] [address] [place] 07-08-2023 MARY Telephone (JUAN) MIGUE GUNTER ([id number]) 1960 M Date Time Provider Department 07/08/23 ERNESTO AGUIAR During your visit today, we recorded the following information about you: Germaine WhitmanFarshad curry 07/08/2023 10:34 AM Signed I spoke with the patient's and advised that is preferred that the imaging is done here. If they wished to have them locally, we would need a fax order to send the orders. A follow up call was made, and a detailed message was left with these details as well. [phone] Allergies As of Date: 07/08/2023 (No Known Allergies) Date Reviewed: 05/12/2023 Reviewed by: Ernesto Aguiar MD - Fully Assessed Reason for Visit: Patient Question [5557] Prescriptions as of 07/08/2023 - omeprazole (PRILOSEC) 20 mg capsule Take 20 mg by mouth twice daily. - aspirin, enteric coated (ASPIRIN, ENTERIC COATED) 81 mg EC tablet Take 81 mg by mouth once daily. - cholecalciferol (VITAMIN D-3) 2,000 unit tablet Take 2,000 Units by mouth once daily. - furosemide (LASIX) 40 mg tablet Take 40 mg by mouth once daily. - diltiazem (CARDIZEM) 120 mg tablet Take 120 mg by mouth once daily. - enoxaparin (LOVENOX) 150 mg/mL syrg Inject 0.9 mL subcutaneously q 12 HR. - warfarin (COUMADIN) 5 mg tablet Take 1 tablet by mouth once daily. - pantoprazole DR (PROTONIX) 40 mg tablet Take 40 mg by mouth once daily. - Benazepril HCl 40 mg tablet Take 20 mg by mouth once daily. - atorvastatin (LIPITOR) 40 mg tablet Take 10 mg by mouth once daily. Problem List As Of Date 07/08/2023 Noted Resolved Personal history of colonic polyps [Z86.010] 06/30/2016 Encounter Status:Closed by FARSHAD MITCHELL on [facility]/08/23 [facility] Tele[facility] (JUAN) MIGUE GUNTER ([id number]) 1960 M Date Time Provider Department 07/03/23 LAURENCE QUINN During your visit today, we recorded the following information about you: Laurence Quinn RN 07/03/2023 10:47 AM Signed SPECIALTY CARE COORDINATION FOLLOW-UP NOTE Received call [...] be seen in office for flex sig. Laurence Quinn RN July 03, 2023 Allergies As of Date: 07/03/2023 (No Known Allergies) Date Reviewed: 05/12/2023 Reviewed by: Ernesto Aguiar MD - Fully Assessed Reason for Visit: Patient Question [5478] Care Coordination [0467] Prescriptions as of 07/03/2023 - omeprazole (PRILOSEC) 20 mg capsule Take 20 mg by mouth twice daily. - aspirin, enteric coated (ASPIRIN, ENTERIC COATED) 81 mg EC tablet Take 81 mg by mouth once daily. - cholecalciferol (VITAMIN D-3) 2,000 unit tablet Take 2,000 Units by mouth once daily. - furosemide (LASIX) 40 mg tablet Take 40 mg by mouth once daily. - diltiazem (CARDIZEM) 120 mg tablet Take 120 mg by mouth once daily. - enoxaparin (LOVENOX) 150 mg/mL syrg Inject 0.9 mL subcutaneously q 12 HR. - warfarin (COUMADIN) 5 mg tablet Take 1 tablet by mouth once daily. - pantoprazole DR (PROTONIX) 40 mg tablet Take 40 mg by mouth once daily. - Benazepril HCl 40 mg tablet Take 20 mg by mouth once daily. - atorvastatin (LIPITOR) 40 mg tablet Take 10 mg by mouth once daily. Problem List As Of Date 07/03/2023 Noted Resolved Personal history of colonic polyps [Z86.010] 06/30/2016 Encounter Status:[facility] ([employer]) MIGUE GUNTER ([id number]) 1960 M Date Time Provider Department 05/25/23 LAURENCE QUINN During your visit today, we recorded the following information about you: Laurence Quinn RN 05/25/2023 11:21 AM Signed ----- Message from Farshad Herron [facility] sent at 05/25/2023 10:35 AM EDT ----- Regarding: Questions/update Please call the patients Myriam to discuss some additional questions about the plan. She report he saw a local oncologist Dr. Quesada and feels that a chemo treatment preference was discussed in the office with Dr. Aguiar. [phone] Laurence Quinn RN 05/25/2023 11:24 AM Signed SPECIALTY CARE COORDINATION FOLLOW-UP NOTE Informed that we received outside imaging, he will be presented at [facility]T on Thursday and will received official recommendation from Dr. Aguiar. Patient states that current plan is to start chemo and radiation for 27 days 06/01. Laurence Quinn RN May 25, 2023 Allergies As of Date: 05/25/2023 (No Known Allergies) Date Reviewed: 05/12/2023 Reviewed by: Ernesto Aguiar MD - Fully Assessed Prescriptions as of 05/25/2023 - omeprazole (PRILOSEC) 20 mg capsule Take 20 mg by mouth twice daily. - aspirin, enteric coated (ASPIRIN, ENTERIC COATED) 81 mg EC tablet Take 81 mg by mouth once daily. - cholecalciferol (VITAMIN D-3) 2,000 unit tablet Take 2,000 Units by mouth once daily. - furosemide (LASIX) 40 mg tablet Take 40 mg by mouth once daily. - diltiazem (CARDIZEM) 120 mg tablet Take 120 mg by mouth once daily. - enoxaparin (LOVENOX) 150 mg/mL syrg Inject 0.9 mL subcutaneously q 12 HR. - warfarin (COUMADIN) 5 mg tablet Take 1 tablet by mouth once daily. - pantoprazole DR (PROTONIX) 40 mg tablet Take 40 mg by mouth once daily. - Benazepril HCl 40 mg tablet Take 20 mg by mouth once daily. - atorvastatin (LIPITOR) 40 mg tablet Take 10 mg by mouth once daily. Problem List As Of Date 05/25/2023 Noted Resolved Personal history of colonic polyps [Z86.010] 06/30/2016 Encounter Status:Closed by LAURENCE QUINN on 05/25/[address] [facility] [address] HEAD OR BRAIN W/O TESSAVALERIE William 06-23-2017 CT HEAD OR BRAIN W/O CONTRAST ORIGINALCT HEAD OR BRAIN W/O CONTRAST Clinical Statement: head injury TECHNIQUE: Axial CT images from skull base to vertex without IV contrast. This exam was performed according to our departmental dose optimization program, and includes the following measures where applicable: automated exposure control, adjustment of the mAs and/or kVp according to patient size and/or exam, and an iterative reconstruction algorithm. COMPARISON: None. FINDINGS: There is mild streak artifact which compromises evaluation. There is no definite intracranial hemorrhage, mass effect, or abnormal extra-axial fluid collection. Hyperdensity along the right cerebellum is within area of artifact and is confirmed artifactual on review of thin section reformats. No CT evidence for acute territorial infarct. Scattered foci of white matter hypoattenuation are noted in the cerebral white matter which are nonspecific but may represent mild chronic microvascular angiopathy in a patient of this age. There is proportionate enlargement of the ventricular system and cortical sulci, compatible with mild parenchymal volume loss. The skull base and calvarium demonstrate no acute abnormality. The included paranasal sinuses and mastoid air cells are clear. Soft tissue density in the bilateral external auditory canals likely represents cerumen. Soft tissue swelling is noted on the left superiorly and at the vertex. IMPRESSION: No acute intracranial findings within the limits imposed by artifact. Interpreted By: Gloria GamezPreliminary Report By: Gloria GamezElectronically Signed By: Gloria Gamez Dictated Date: 06/23/2017 1:25:51 PM Prelim Date: 06/23/2017 1:31:13 PM Sign Date: 06/23/2017 1:39:51 PM Normal [facility] ([place]) Vital Signs Date Time Vital Sign Value Performing Clinician Faci tejal 11-17-2023 07:50-0500 Body height 180.3 cm Ernesto Aguiar MD Work Phone: [facility] 11-17-2023 07:50-0500 Body weight 137 kg Ernesto Aguiar MD Work Phone: [facility] 08-04-2023 12:0500 Body height 180.3 cm Ernesto Aguiar MD Work Phone: [facility] 08-04-2023 12:-0500 Body weight 129.73 kg Ernesto Aguiar MD Work Phone: [facility] Encounters Encounter Date Encounter Type Care Provider Facility Start: 05-20-2024 End: 05-20-2024 Telephone encounter Maryann Bacon RN Colorectal Surgery Start: 05-17-2024 End: 05-17-2024 Orders Only Ernesto Aguiar MD Work Phone: Colorectal Surgery Comment on above: Rectal cancer (HCC) (Primary Dx) Start: 05-13-2024 End: 05-13-2024 Telephone encounter Ernesto Aguiar MD Work Phone: Colorectal Surgery Comment on above: Patient Update Start: 04-21-2024 End: 04-21-2024 ambulatory ERNESTO AGUIAR Facility:[facility] Start: 04-21-2024 End: 04-21-2024 Subsequent hospital visit by physician Mri [facility] (I-Stat/1.5t/3t) Work Phone: MRI Q Comment on above: Malignant neoplasm o f rectum (HCC) [C20] Start: 04-19-2024 Telephone encounter Ernesto Cornell MD Work Phone: Colorectal Surgery Comment on above: Patient Question Start: 04-18-2024 Orders Only Ernesto Aguiar MD Work Phone: Colorectal Surgery Comment on above: Malignant neoplasm o f rectum (HCC) (Primary Dx) Start: 04-15-2024 Telephone encounter Ernesto Cornell MD Work Phone: Colorectal Surgery Comment on above: Patient Update Start: 04-14-2024 End: 04-14-2024 ambulatory Ernesto Aguiar MD Work Phone: Hematology/Oncology Comment on above: Malignant neoplasm o f rectum (HCC) (Primary Dx) Start: 04-14-2024 End: 04-14-2024 Subsequent hospital visit by physician Ernesto Aguiar MD Work Phone: Cat Scan Comment on above: Malignant neoplasm o f rectum (HCC) [C20] Start: 03-28-2024 End: 03-28-2024 ambulatory ERNESTO AGUIAR Facility:[facility] Start: 03-25-2024 Orders Only Ernesto Aguiar MD Work Phone: Colorectal Surgery Comment on above: Malignant neoplasm o f rectum (HCC) (Primary Dx) Start: 03-01-2024 End: 03-01-2024 ambulatory ERNESTO AGUIAR Facility:[facility] Start: 03-01-2024 End: 03-01-2024 Patient encounter procedure Ernesto Aguiar MD Work Phone: Colorectal Surgery Comment on above: Rectal cancer (HCC) (Primary Dx) Start: 11-18-2023 Telephone encounter Maryann (Rn ) Darrion ALDRIDGE Colorectal Surgery Start: 11-17-2023 End: 11-17-2023 ambulatory ERNESTO AGUIAR Facility:[facility] Start: 11-17-2023 End: 11-17-2023 Patient encounter procedure Ernesto Aguiar MD Work Phone: Colorectal Surgery Comment on above: Rectal cancer (HCC) (Primary Dx) Start: 11-08-2023 Orders Only Ernesto Aguiar MD Work Phone: Colorectal Surgery Comment on above: Rectal cancer (HCC) (Primary Dx) Start: 11-04-2023 End: 11-04-2023 ambulatory JT STOKES Facility:[facility] Start: 11-04-2023 End: 11-04-2023 Subsequent hospital visit by physician Mri [facility] (I-Stat/1.5t) Work Phone: Radiology Comment on above: Malignant neoplasm o f rectum (HCC) [C20] Start: 11-02-2023 Telephone encounter Ricki billingsley DO Work Phone: Hematology/Oncology Comment on above: Appointment Start: 10-28-2023 Telephone encounter Ernesto Cornell MD Work Phone: Colorectal Surgery Comment on above: Patient Update Malignant neoplasm o f rectum (HCC) (Primary Dx) Start: 10-26-2023 Telephone encounter Ernesto Cornell MD Work Phone: Colorectal Surgery Start: 08-04-2023 End: 08-04-2023 ambulatory [facility] Facility:[facility] Start: 08-04-2023 End: 08-04-2023 Patient encounter procedure Ernesto Aguiar MD Work Phone: Colorectal Surgery Comment on above: Rectal cancer (HCC) (Primary Dx) Start: 07-27-2023 Telephone encounter Jonna rubio PA-C Work Phone: Colorectal Surgery Comment on above: Results (CT chest/ab d/pel results) Start: 07-27-2023 End: 07-27-2023 ambulatory [facility] Facility:[facility] Start: 07-27-2023 End: 07-27-2023 Subsequent hospital visit by physician Ct [facility] (I-Stat) Work Phone: Cat Scan Comment on above: Malignant neoplasm o f rectum (HCC) [C20] Start: 07-15-2023 Telephone encounter Laurence Quinn RN C olorectal Surgery Comment on above: Care Coordination Start: 07-13-2023 End: 07-13-2023 ambulatory [facility] Facility:[facility] Start: 07-13-2023 End: 07-13-2023 Subsequent hospital visit by physician Mri [facility] (I-Stat/1.5t) Work Phone: Radiology Comment on above: Malignant neoplasm o f rectum (HCC) [C20] Start: 07-09-2023 End: 07-09-2023 ambulatory ERNESTO AGUIAR Facility:[facility] Start: 07-08-2023 Telephone encounter Ernesto Cornell MD Work Phone: Colorectal Surgery Comment on above: Patient Question Start: 07-03-2023 Telephone encounter Laurence Quinn RN C olorectal Surgery Comment on above: Patient Question; Ca re Coordination Start: 05-25-2023 Telephone encounter Laurence Curry olorectal Surgery Start: 06-23-2017 End: 06-24-2017 Ambulatory DEANNA ACKERMAN Facility:B Procedures Date Procedure Procedure Detail Performing Clinician Start: 05-17-2024 Sigmoidoscopy flx dx w/collj spec br/wa if pfrmd [facility] Provider Start: 04-14-2024 Ct abdomen & pelvis w/contrast material Ernesto Aguiar MD Work Phone: Start: 04-14-2024 Ct thorax w/contrast material Ernesto Aguiar MD Work Phone: Start: 03-01-2024 Sigmoidoscopy flx dx w/collj spec br/wa if pfrmd [facility] Provider Start: 11-17-2023 Sigmoidoscopy flx dx w/collj spec [...] Aguiar MD Work Phone: Start: 07-11-2016 Colonoscopy Laurence glass RN Plan of Treatment Date Care Activity Detail Author Start: 11-12-2030 Urine microalbumin profile DTa P,Tdap,Td Vaccine (2 - Td or Tdap) [facility] Start: 05-17-2029 Screening for malign ant neoplasm of colon Sigmoidoscopy [facility] Start: 03-01-2029 Screening for malign ant neoplasm of colon Sigmoidoscopy [facility] Start: 11-16-2028 Screening for malign ant neoplasm of colon Sigmoidoscopy [facility] Start: 08-04-2028 Screening for malign ant neoplasm of colon Sigmoidoscopy [facility] Start: 08-04-2028 Sigmoidoscopy Sigmoidoscopy [facility] Start: 05-12-2028 SIGMOIDOSCOPY SIGMOIDOSCOPY [facility] Start: 05-18-2024 Screening for malign ant neoplasm of colon Colorectal Cancer Screening [facility] Start: 05-17-2024 End: 05-17-2024 Patient encounter procedure 05/17/2024 11:00 AM EDT Office Visit Colorectal Surgery [address] [place] [address] Ernesto Aguiar MD [address] [place] [address] flex sig watch and wait Colorectal Surgery Comment on above: flex sig watch and w ait Start: 05-15-2024 Covid-19 Vaccine () Covid-19 Vaccine () [facility] Start: 05-15-2024 Influenza vaccination Influenza Vacc ine (#1) [facility] Start: 04-21-2024 End: 04-21-2024 Patient encounter procedure 04/21/2024 11:10 AM EDT Appointment MRI Q [address] [place] [address] Malignant neoplasm of rectum (HCC) [C20] MRI Q Comment on above: Malignant neoplasm o f rectum (HCC) [C20] Start: 04-21-2024 Subsequent hospital visit by physician 04/21/2024 11:10 AM EDT Hospital Encounter MRI Q [address] [place] [id number] Malignant neoplasm of rectum (HCC) [C20] MRI Q Comment on above: Malignant neoplasm o f rectum (HCC) [C20] Start: 03-28-2024 End: 03-28-2024 ambulatory 03/28/2024 4:45 PM EDT Results Only [facility] [address] [place] [address] [facility] Start: 03-25-2024 End: 06-24-2024 CREATININE BLD CREATININE BLD Lab Routine Malignant neoplasm of rectum (HCC) Expected: 03/25/2024, Expires: 06/24/2024 [facility] Comment on above: Expected: 03/25/2024 , Expires: 06/24/2024 Start: 03-02-2024 Screening for malign ant neoplasm of colon Colorectal Cancer Screening [facility] Start: 11-18-2023 Screening for malign ant neoplasm of colon Colorectal Cancer Screening [facility] Start: 10-28-2023 End: 01-27-2024 Carcinoembryonic Ag [Mass/volume] in Serum or Plasma CEA BLD Lab Routine Malignant neoplasm of rectum (HCC) Expected: 10/28/2023, Expires: 01/27/2024 [facility] Work Phone: Comment on above: Expected: 10/28/2023 , Expires: 01/27/2024 Start: 09-14-2023 Advance Directive Discussion Advance Directive Discussion [facility] Start: 09-14-2023 Behavioral Health Screening Behavioral Health Screening [facility] Start: 09-14-2023 Depression Assessment Depression Ass essment [facility] Start: 08-05-2023 Colorectal Cancer Screening Colorectal Cancer Screening [facility] Start: 08-05-2023 Screening for malign ant neoplasm of colon Colorectal Cancer Screening [facility] Start: 05-15-2023 Covid-19 Vaccine () Covid-19 Vaccine () [facility] Start: 05-15-2023 Influenza vaccination [facility] Start: 05-13-2023 COLORECTAL CANCER SCREENING COLORECTAL CANCER SCREENING [facility] Start: 2023 ADVANCE DIRECTIVE DISCUSSION ADVANCE DIRECTIVE DISCUSSION [facility] Start: 2023 Pneumococcal Vaccine : 65+ (1 - PCV) Pneumococcal Vaccine: 65+ (1 - PCV) [facility] Start: 2023 Pneumococcal Vaccine : 65+ (1 of 1 - PCV) Pneumococcal Vaccine: 65+ (1 of 1 - PCV) [facility] Start: 2023 PNEUMOCOCCAL: 65+ (1 - PCV) PNEUMOCOCCAL: 65+ (1 - PCV) [facility] Start: 09-14-2022 DEPRESSION ASSESSMENT DEPRESSION ASS ESSMENT [facility] Start: 04-03-2022 COVID-19 VACCINE (4 - Moderna series) COVID-19 VACCINE (4 - Moderna series) [facility] Start: 07-11-2019 Colonoscopy COLONOSCOPY [facility] Start: 07-11-2019 Screening for malign ant neoplasm of colon Colonoscopy [facility] Start: 2018 RSV Vaccine (1 - 1-d ose 60+ series) RSV Vaccine (1 - 1-dose 60+ series) [facility] Start: 2013 PROSTATE CANCER SCRE ENING DISCUSSION PROSTATE CANCER SCREENING DISCUSSION [facility] Start: 2013 Prostate specific an tigen measurement Prostate Cancer Screening Discussion [facility] Start: 2008 SHINGRIX VACCINE (1 of 2) GRAHAM GRIX VACCINE (1 of 2) [facility] Start: 2003 COLOGUARD (FIT-DNA) COLOGUARD (FIT-D NA) [facility] Start: [address] COLONOGRAPHY [facility] Start: 2003 DIABETES SCREEN DIABETES SCREEN [facility] Start: 2003 Diabetes Screening Diabetes Screenin g [facility] Start: 2003 FECAL OCCULT BLOOD FECAL OCCULT BLOO D [facility] Start: 2003 Screening for malign ant neoplasm of colon [facility] Start: 1993 Lipid 1996 panel - S vi or Plasma Lipid Screening [facility] Start: 1993 Lipid panel Lipid Screening [facility] Start: 1993 LIPID SCREEN LIPID SCREEN [facility] Start: 1977 Urine microalbumin profile DTAP,TDAP ,TD (1 - Tdap) [facility] Start: 1976 Anxiety Screening Anxiety Screening [facility] Start: 1976 Depression Screening Depression Scre ening [facility] Start: 1976 HEPATITIS C SCREENING HEPATITIS C [facility] Start: 1976 Hepatitis C screening Hepatitis C [facility] Start: 1976 HIV SCREENING HIV SCREENING [facility] Start: 1976 HIV screening HIV Screening [facility] End: 04-24-2025 CT Abdomen and Pelvis W contrast IV CT ABD/PEL W IVCON Radiology Routine Malignant neoplasm of rectum (HCC) 1 Occurrences starting 03/25/2024 until 04/24/2025 [facility] Work Phone: Comment on above: 1 Occurrences starti ng 03/25/2024 until 04/24/2025 End: 04-24-2025 CT Chest W contrast IV CT CHEST W IVCON Radiology Routine Malignant neoplasm of rectum (HCC) 1 Occurrences starting 03/25/2024 until 04/24/2025 [facility] Comment on above: 1 Occurrences starti ng 03/25/2024 until 04/24/2025 End: 11-26-2024 MR Pelvis WO contrast MRI RECTUM WO/W IVCON Radiology Routine Malignant neoplasm of rectum (HCC) 1 Occurrences starting 10/28/2023 until 11/26/2024 [facility] Work Phone: Comment on above: 1 Occurrences starti ng 10/28/2023 until 11/26/2024 MR Pelvis WO contrast MRI RECTUM WO/W IVCON Radiology Routine Malignant neoplasm of rectum (HCC) 11/04/2023 2:05 PM EST [facility] Work Phone: End: 05-18-2025 MR Pelvis WO contrast MRI RECTUM WO/W IVCON Radiology Routine Malignant neoplasm of rectum (HCC) 1 Occurrences starting 04/18/2024 until 05/18/2025 [facility] Work Phone: Comment on above: 1 Occurrences starti ng 04/18/2024 until 05/18/2025 MR Pelvis WO contrast MRI RECTUM WO/W IVCON Radiology Routine Malignant neoplasm of rectum (HCC) 04/21/2024 1:13 PM EDT [facility] Work Phone: [facility] Immunizations Immunization Date Immunization Notes Care Provider [facility] 05-29-2023 influenza virus vacc ine, unspecified formulation Ernesto Aguiar MD Work Phone: [facility] 08-04-2022 influenza virus vacc ine, unspecified formulation Laurence Quinn RN [facility] Payers Date Payer Category Payer Medicare [id number] 2023 Medicare MEDICARE MEDICAR E A AND B [id number] 2023-Present [phone] [place] [address] Medicare [id number] 2023 Medicare [id number] 2022 Private Health Insurance [id number] 2022 Private Health Insurance [id number] 2017 Unknown [id number] Social History Date Type Detail Facility Start: 05-12-2023 Tobacco smoking stat us NHIS Never smoked tobacco [facility] Start: 05-12-2023 Tobacco use and exposure Smoke less tobacco non-user [facility] Start: 05-12-2023 End: 05-17-2024 Alcohol intake Current drinker of alcohol (finding) [facility] Start: 05-12-2023 End: 05-17-2024 History of Social function [facility] Start: 05-12-2023 End: 05-17-2024 Tobacco use panel [facility] National Score (1-10 0), lower number is lower risk 54 [facility] Start: 1960 Sex Assigned At Male C [facility] Start: 05-11-2023 Gender identity Identifies as male gender (finding) [facility] Start: 05-11-2023 Sexual orientation Heterosexual (fin ding) [facility] Clinical Notes 05-25-2023 to 05-20-2024 Telephone Encounter - Maryann Bacon RN - 05/20/2024 1:26 PM EDTTelephone Encounter - Maryann Bacon RN - 05/20/2024 1:26 PM Willie Brown MD - 05/17/2024 11:00 AM EDT Note Date & Type Note Facility 05-20-2024 Telephone encounter Note Called and spoke with patient Advised MRI was reviewed at MDT today : Overall clinical assessment: No evidence of tumor regrowth or metastasis. Tumor board discussion and recommendation: Continue active surveillance (Watch & Wait) with following schedule: Exam, MELINDA, CEA & Flex Sig: Years 0-2 every 3 months; Years 3-4 every 6 months; Years 5-10 yearly MRI Pelvis: Years 0-4 every 6 months; Years 5-[address] C/A/P with Contrast: Years 0-2 every 6 months; Years 3-10 yearly Colonoscopy: 1 year after treatment then every 3 years Discussion: recent MRI shows complete MRI response with no sign for a cancerous mass. Patient will follow up in three months for flex sig with Dr Aguiar, will call to schedule appt Patient verbalized understanding and appreciative of call [facility] 05-20-2024 Miscellaneous Notes Called and spoke with patient Advised MRI was reviewed at MDT today : Overall clinical assessment: No evidence of tumor regrowth or metastasis. Tumor board discussion and recommendation: Continue active surveillance (Watch & Wait) with following schedule: Exam, MELINDA, CEA & Flex Sig: Years 0-2 every 3 months; Years 3-4 every 6 months; Years 5-10 yearly MRI Pelvis: Years 0-4 every 6 months; Years 5-[address] C/A/P with Contrast: Years 0-2 every 6 months; Years 3-10 yearly Colonoscopy: 1 year after treatment then every 3 years Discussion: recent MRI shows complete MRI response with no sign for a cancerous mass. Patient will follow up in three months for flex sig with Dr Aguiar, will call to schedule appt Patient verbalized understanding and appreciative of call documented in this encounter [facility] 05-20-2024 Note HNO ID: [id number] Author: OPHELIA CHAPMAN MD Service: ? Author Type: Physician Type: Progress Notes Filed: 05/20/2024 12:59 Note Text: Rectal Cancer Tumor Board Non-Operative / Active Surveillance Discussion Note Date of conference: 05/20/2024 Date of diagnosis: 05/05/2023 Pre-treatment clinical stage: [id number]. Type of neoadjuvant therapy completed: Long course chemoradiotherapy followed by consolidation chemotherapy (CORKY) Neoadjuvant therapy date of completion: 11/04/2023 Pre-treatment CEA level: 1.8 Current CEA level: CEA (ng/mL) Date Value 11/04/2023 2.8 Findings on most recent digital rectal examination and flexible sigmoidoscopy: Date: 05/17/2024 No evidence of recurrence Biopsy: No Most recent MRI: Date: 04/21/2024 MRI performed at: [facility]. mrTR Suspicious for tumor regrowth: No Tumor deposits: No Mucinous: Yes Most recent CT Chest/Abdomen/Pelvis: Date: 04/14/2024 Metastases: No evidence of metastases Other Imaging Reviewed: NA Metastatic disease present:No Overall clinical assessment: No evidence of tumor regrowth or metastasis. Tumor board discussion and recommendation: Continue active surveillance (Watch AND Wait) with following schedule: Exam, MELINDA, CEA AND Flex Sig: Years 0-2 every 3 months; Years 3-4 every 6 months; Years 5-10 yearly MRI Pelvis: Years 0-4 every 6 months; Years 5-[address] C/A/P with Contrast: Years 0-2 every 6 months; Years 3-10 yearly Colonoscopy: 1 year after treatment then every 3 years Discussion: recent MRI shows complete MRI response with no sign for a cancerous mass. Clinical Trial Candidate: No Disciplines present: Colorectal Surgery, Medical Oncology, Radiation Oncology, Radiology and Anatomic Pathology This is the summary of the general discussion provided at tumor board conference. The final recommendations will be made by the primary health care team and the patient after discussing the benefits, risks and alternatives to the various treatment options. [facility] 05-17-2024 History of Presen t illness Narrative COLORECTAL SURGERY Follow-up May 12, 2024 Chief complaint: rectal cancer HPI: Migue Gunter is a 63-year-old year old male [...] 11-04-23 showed complete/near complete response to treatment. He also had CT scans done locally. Flex sig done during appt on 11.17.2023 and showed complete endoscopic response. His case was presented to [facility] and recommended to undergo watch and wait protocol. He is due for flex sig and CEA today. He had MRI and CT scans in April - all stable, no evidence of metastatic disease or recurrence. No new symptoms. Denies abdominal pain, nausea or vomiting. No weight changes. No rectal pain, denies any hematochezia or melena. Reports that he had a complete colonoscopy a few weeks ago with polypectomy. 04/21/2024 MRI rectum IMPRESSION: Slight interval decrease in size of low rectal tumor with mucin. No abnormal lymph nodes. Stable indeterminate 0.7 cm left sacral lesion. Since 11/04/2023, post treatment primary tumor assessment: Complete/near complete response. mrTRG: Grade 2 - Good response Suspicious Mesorectal lymph nodes: No. Suspicious Extramesorectal lymph nodes: No. 04/14/2024 CT C/A/P IMPRESSION: No CT evidence of metastatic disease in the chest. Little interval change since 07/27/2023. IMPRESSION: New fracture of the left greater trochanter relative to 11/11/2023. No metastatic disease in the abdomen or pelvis. 03.01.2024 flex sig Findings: The perianal and digital rectal examinations were normal. Post-treatment scar and mild radiation change No evidence of disease recurrence Impression: - Post-treatment scar and mild radiation change No evidence of disease recurrence - No specimens collected. 11.18.2023 MDT RECS Tumor board discussion and recommendation: Active surveillance (Watch & Wait) Discussion: Good endoscopic and radiologic response. 11.17.2023 flex sig Findings: The perianal and digital rectal examinations were normal. Scope advanced to upper rectum Enema and irrigation required for optimal view No endoscopic lesion Evidence of complete endoscopic response with scar and telegiectasia at left lateral region below first valve approx 2 cm above anal verge with no other suspicious lesions seen. Estimated blood loss: none. Impression: - Scope advanced to upper rectum No endoscopic lesion Evidence of complete endoscopic response with scar and telegiectasia at left lateral region below first valve approx 2 cm above anal verge with no other suspicious lesions seen. - No specimens collected. 11/04/23 CEA 2.8 11/04/2023 MRI rectum IMPRESSION: [...] Suspicious Extramesorectal lymph nodes: No. 08/04/23 flex sig Findings: The digital rectal exam revealed a [...] nodes: No. 07/09/23 CEA 1.8 Physical Exam: There were no vitals taken for this visit. General - awake, alert, no acute distress Abdominal - soft, nontender Anorectal: Perianal skin is intact. No erythema, induration or excoriation. No fissure, fistula. External hemorrhoids. Digital Rectal Exam: Anus: closed Resting tone: NORMAL Squeeze tone: NORMAL Soil Checker present: Yes Assessment Medical Decision Making: Assessment & Diagnosis: Migue Gunter is a 64 year old male with a history of pAF, VTE (warfarin), CORRINA, HTN, GERD and cT3 N1 M0 locally advanced rectal adenocarcinoma. He completed chemoradiation 06/01/23-07/07/23. He saw Dr Aguiar in July 2023 for intermediate staging and had partial response to treatment, so recommended to proceed with CORKY. He completed CORKY on 10/26/2023 with subsequent complete clinical response. On watch and wait surveillance No evidence disease recurrence today Data Reviewed: Tests & Documents Reviewed/ordered: Review of Imaging: CT Abdomen, CT Pelvis, MRI Pelvis I have independently interpreted: CT Abdomen, CT Pelvis, MRI Pelvis I have discussed Migue Gunter's treatment plan and/or results with the patient and his . Treatment plan: - Flexible sigmoidoscopy in six months - MRI, CT scans in October 2024 - Follow up CEA - Colonoscopy completed recently at outside facility, will obtain record Risk of morbidity, mortality and/or complications of treatment plan: low Associated attestation - Ernesto gAuiar MD - 05/17/2024 11:51 AM EDT [facility] STAFF PHYSICIAN NOTE OF PERSONAL INVOLVEMENT IN CARE I have reviewed the progress note and procedure note obtained and documented by the fellow and I personally participated in the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 Note HNO ID: [id number] Author: Alia Mullins RT(Cassius) Service: ? Author [...] DATE: July 13, 2023 TIME: 9:12 AM [facility] 07-08-2023 Miscellaneous Notes I spoke with the patient's and advised that is preferred that the imaging is done here. If they wished to have them locally, we would need a fax order to send the orders. A follow up call was made, and a detailed message was left with these details as well. [phone] documented in this encounter [facility] 07-03-2023 Miscellaneous Notes SPECIALTY CARE COORDINATION FOLLOW-UP [...] in treatment will have last chemoradiation on 10/24 followed by 4 week break. Patient asking if imaging needs to be done before her proceeds with chemotherapy. Advised we can order scans and he can be seen in office for flex sig. Laurence Quinn RN July 03, 2023 documented in this encounter [facility] 05-29-2023 Note HNO ID: [id number] Author: Ernesto Aguiar MD Service: ? Author Type: Physician Type: Progress Notes Filed: 05/29/2023 12:25 PM Note Text: Rectal Cancer Tumor Board Initial Presentation Date of conference: 05/29/2023. Date of Diagnosis: 05/05/2023. 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 Performing Lab Diagnostic interpretation performed at [facility], [address] [place] [id number] CLIA# [id number] Imaging Reviewed: MRI of pelvis: 05/20/2023. MRI [...] CEA results: Pending (ordered) Pre-treatment clinical stage: [id number]. Tumor board discussion and recommendation: Neoadjuvant therapy [...] and alternatives to the various treatment options. [facility] 05-25-2023 Miscellaneous Notes SPECIALTY CARE COORDINATION FOLLOW-UP NOTE Informed that we received outside imaging, he will be presented at MDT on Thursday and will received official recommendation from Dr. Aguiar. Patient states that current plan is to start chemo and radiation for 27 days 06/01. Laurence Quinn RN May 25, 2023 ----- Message from Farshad Herron [facility] sent at 05/25/2023 10:35 AM EDT ----- Regarding: Questions/update Please call the patients Myriam to discuss some additional questions about the plan. She report he saw a local oncologist Dr. Quesada and feels that a chemo treatment preference was discussed in the office with Dr. Aguiar. [phone] documented in this encounter [facility] Evaluation note Diagnosis Malignant neoplasm of rectum (HCC) Malignant neoplasm of rectum [facility] Malignant neoplasm of rectum (HCC) Malignant neoplasm of rectum [facility] Rectal cancer (HCC)- Primary Malignant neoplasm of rectum documented in this encounter [facility] note* Diagnosis Malignant neoplasm of rectum (HCC)- Primary Malignant neoplasm of rectum documented in this encounter [facility] note* Diagnosis Malignant neoplasm of rectum (HCC) Malignant neoplasm of rectum documented in this encounter [facility] note* Diagnosis Rectal cancer (HCC)- Primary Malignant neoplasm of rectum documented in this encounter [facility] note* Diagnosis Rectal cancer (HCC)- Primary Malignant neoplasm of rectum documented in this encounter [facility] note* Diagnosis Malignant neoplasm of rectum (HCC)- Primary Malignant neoplasm of rectum documented in this encounter [facility] note* Diagnosis Malignant neoplasm of rectum (HCC)- Primary Malignant neoplasm of rectum documented in this encounter [facility] note* Diagnosis Malignant neoplasm of rectum (HCC) Malignant neoplasm of rectum documented in this encounter [facility] note* Diagnosis Malignant neoplasm of rectum (HCC)- Primary Malignant neoplasm of rectum documented in this encounter [facility] note* Diagnosis Malignant neoplasm of rectum (HCC) Malignant neoplasm of rectum documented in this encounter [facility] note* Diagnosis Rectal cancer (HCC)- Primary Malignant neoplasm of rectum documented in this encounter [facility] note* Diagnosis Rectal cancer (HCC)- Primary Malignant neoplasm of rectum documented in this encounter [facility] Summary Purpose Family History No Family History Records FoundNo Family History Records Found Advance Directives No Advanced Directives Records FoundNo Advanced Directives Records Found Reason for Referral Specialty Diagnoses / Procedures Referred By Contac t Referred To Contact MR IMAGING Diagnoses Malignant neoplasm of rectum (HCC) Procedures MRI RECTUM WO/W IVCON MRI PELVIS W/O & W/CONTRAST MATERIAL Ernesto Aguiar MD [address] [place] [address] [facility] [place] [address] Referral ID Status Reason Start Date Expiration Date V isits Requested Visits Authorized [id number] Closed Auto-Generate d Referral 07/09/2023 09/13/2023 1 1 Specialty Diagnoses / Procedures Referred By Contac t Referred To Contact CT IMAGING Diagnoses Malignant neoplasm of rectum (HCC) Procedures CT ABD/PEL W IVCON CT ABD & PELVIS W/CONTRAST Ernesto Aguiar MD [address] [place] [address] [place] [address] Referral ID Status Reason Start Date Expiration Date V isits Requested Visits Authorized [id number] Closed Auto-Generate d Referral 07/09/2023 09/13/2023 1 1 Specialty Diagnoses / Procedures Referred By Contac t Referred To Contact CT IMAGING Diagnoses Malignant neoplasm of rectum (HCC) Procedures CT CHEST W IVCON DIAGNOSTIC COMPUTED TOMOGRAPHY THORAX W/CONTRAST Ernesto Aguiar MD [address] [place] [address] Ct Imaging [facility] Referral ID Status Reason Start Date Expiration Date V isits Requested Visits Authorized [id number] Closed Auto-Generate d Referral 07/09/2023 09/13/2023 1 1 Referral ID Status Reason Start Date Expiration Date Visits Requested Visits Authorized [id number] Pending Review Auto-Generat ed Referral 10/28/2023 11/26/2024 1 1 Referral ID Status Reason Start Date Expiration Date Visits Requested Visits Authorized [id number] New Request Auto-Generat ed Referral 03/25/2024 04/24/2025 1 1 Referral ID Status Reason Start Date Expiration Date Visits Requested Visits Authorized [id number] New Request Auto-Generat ed Referral 03/25/2024 04/24/2025 1 1 Referral ID Status Reason Start Date Expiration Date V isits Requested Visits Authorized [id number] Closed Auto-Generate d Referral 03/25/2024 04/24/2025 1 1 Referral ID Status Reason Start Date Expiration Date V isits Requested Visits Authorized [id number] Closed Auto-Generate d Referral 03/25/2024 04/24/2025 1 1 Referral ID Status Reason Start Date Expiration Date Visits Requested Visits Authorized [id number] Authorized Auto-Generat ed Referral 04/18/2024 05/18/2025 1 1 Additional Source Comments (unrecognized sect ion and content) No Status Records FoundNo Status Records Found INFORMATION SOURCE (unrecogn ized section and content) DATE CREATED AUTHOR 03/05/2018 [facility] ([place]) DATE CREATED AUTHOR AUTHOR'S ORGANIZ ATION 05/22/2024 [facility] Source Comments (unrecognize d section and content) In the event this informatio n is protected by the Federal Confidentiality of Alcohol and Drug Abuse Patient Records regulations: The Federal rules restrict any use of the information to criminally investigate or prosecute any alcohol or drug abuse patient.[facility] the event this information is protected by the Federal Confidentiality of Alcohol and Drug Abuse Patient Records regulations: The Federal rules restrict any use of the information to criminally investigate or prosecute any alcohol or drug abuse patient.[facility] the event this information is protected by the Federal Confidentiality of Alcohol and Drug Abuse Patient Records regulations: The Federal rules restrict any use of the information to criminally investigate or prosecute any alcohol or drug abuse patient.[facility] the event this information is protected by the Federal Confidentiality of Alcohol and Drug Abuse Patient Records regulations: The Federal rules restrict any use of the information to criminally investigate or prosecute any alcohol or drug abuse patient.[facility] the event this information is protected by the Federal Confidentiality of Alcohol and Drug Abuse Patient Records regulations: The Federal rules restrict any use of the information to criminally investigate or prosecute any alcohol or drug abuse patient.[facility] the event this information is protected by the Federal Confidentiality of Alcohol and Drug Abuse Patient Records regulations: The Federal rules restrict any use of the information to criminally investigate or prosecute any alcohol or drug abuse patient.[facility] the event this information is protected by the Federal Confidentiality of Alcohol and Drug Abuse Patient Records regulations: The Federal rules restrict any use of the information to criminally investigate or prosecute any alcohol or drug abuse patient.[facility] the event this information is protected by the Federal Confidentiality of Alcohol and Drug Abuse Patient Records regulations: The Federal rules restrict any use of the information to criminally investigate or prosecute any alcohol or drug abuse patient.[facility] the event this information is protected by the Federal Confidentiality of Alcohol and Drug Abuse Patient Records regulations: The Federal rules restrict any use of the information to criminally investigate or prosecute any alcohol or drug abuse patient.[facility] the event this information is protected by the Federal Confidentiality of Alcohol and Drug Abuse Patient Records regulations: The Federal rules restrict any use of the information to criminally investigate or prosecute any alcohol or drug abuse patient.[facility] the event this information is protected by the Federal Confidentiality of Alcohol and Drug Abuse Patient Records regulations: The Federal rules restrict any use of the information to criminally investigate or prosecute any alcohol or drug abuse patient.[facility] the event this information is protected by the Federal Confidentiality of Alcohol and Drug Abuse Patient Records regulations: The Federal rules restrict any use of the information to criminally investigate or prosecute any alcohol or drug abuse patient.[facility] the event this information is protected by the Federal Confidentiality of Alcohol and Drug Abuse Patient Records regulations: The Federal rules restrict any use of the information to criminally investigate or prosecute any alcohol or drug abuse patient.[facility] the event this information is protected by the Federal Confidentiality of Alcohol and Drug Abuse Patient Records regulations: The Federal rules restrict any use of the information to criminally investigate or prosecute any alcohol or drug abuse patient.[facility] Center[facility] the event this information is protected by the Federal Confidentiality of Alcohol and Drug Abuse Patient Records regulations: The Federal rules restrict any use of the information to criminally investigate or prosecute any alcohol or drug abuse patient.[facility] Center[facility] the event this information is protected by the Federal Confidentiality of Alcohol and Drug Abuse Patient Records regulations: The Federal rules restrict any use of the information to criminally investigate or prosecute any alcohol or drug abuse patient.[facility] Center[facility] the event this information is protected by the Federal Confidentiality of Alcohol and Drug Abuse Patient Records regulations: The Federal rules restrict any use of the information to criminally investigate or prosecute any alcohol or drug abuse patient.[facility] Center[facility] the event this information is protected by the Federal Confidentiality of Alcohol and Drug Abuse Patient Records regulations: The Federal rules restrict any use of the information to criminally investigate or prosecute any alcohol or drug abuse patient.[facility] Center[facility] the event this information is protected by the Federal Confidentiality of Alcohol and Drug Abuse Patient Records regulations: The Federal rules restrict any use of the information to criminally investigate or prosecute any alcohol or drug abuse patient.[facility] Center[facility] the event this information is protected by the Federal Confidentiality of Alcohol and Drug Abuse Patient Records regulations: The Federal rules restrict any use of the information to criminally investigate or prosecute any alcohol or drug abuse patient.[facility] Center[facility] the event this information is protected by the Federal Confidentiality of Alcohol and Drug Abuse Patient Records regulations: The Federal rules restrict any use of the information to criminally investigate or prosecute any alcohol or drug abuse patient.[facility] Center[facility] the event this information is protected by the Federal Confidentiality of Alcohol and Drug Abuse Patient Records regulations: The Federal rules restrict any use of the information to criminally investigate or prosecute any alcohol or drug abuse patient.[facility] Center[facility] the event this information is protected by the Federal Confidentiality of Alcohol and Drug Abuse Patient Records regulations: The Federal rules restrict any use of the information to criminally investigate or prosecute any alcohol or drug abuse patient.[facility] CenterIn the event this information is protected by the Federal Confidentiality of Alcohol and Drug Abuse Patient Records regulations: The Federal rules restrict any use of the information to criminally investigate or prosecute any alcohol or drug abuse patient.[facility] CenterIn the event this information is protected by the Federal Confidentiality of Alcohol and Drug Abuse Patient Records regulations: The Federal rules restrict any use of the information to criminally investigate or prosecute any alcohol or drug abuse patient.[facility] Center[facility] the event this information is protected by the Federal Confidentiality of Alcohol and Drug Abuse Patient Records regulations: The Federal rules restrict any use of the information to criminally investigate or prosecute any alcohol or drug abuse patient.[facility] Center[facility] the event this information is protected by the Federal Confidentiality of Alcohol and Drug Abuse Patient Records regulations: The Federal rules restrict any use of the information to criminally investigate or prosecute any alcohol or drug abuse patient.[facility] Center[facility] the event this information is protected by the Federal Confidentiality of Alcohol and Drug Abuse Patient Records regulations: The Federal rules restrict any use of the information to criminally investigate or prosecute any alcohol or drug abuse patient.[facility] Center[facility] the event this information is protected by the Federal Confidentiality of Alcohol and Drug Abuse Patient Records regulations: The Federal rules restrict any use of the information to criminally investigate or prosecute any alcohol or drug abuse patient.[facility] Care Teams (unrecognized sec tion and content) Embedded Firmware Developer Relationship Specialty Start Date End Date Jt Stokes MD [address] [place] [address] PCP - General Family Medicine 07/21/19 Andre Quesada MD [address] [place] [address] Oncology 05/25/23 Embedded Firmware Developer Relationship Specialty Start Date End Date Jt Stokes MD [address] [place], [place] [address] PCP - General Family Medicine 07/21/19 Andre Quesada MD [address] [place] [address] Oncology 05/25/23 Embedded Firmware Developer Relationship Specialty Start Date End Date Jt Stokes MD [address] [place] [address] PCP - General Family Medicine 07/21/19 Andre Quesada MD [address] [place] [address] Oncology 05/25/23 Embedded Firmware Developer Relationship Specialty Start Date End Date Jt Stokes MD [address] [place] [address] PCP - General Family Medicine 07/21/19 Andre Quesada MD [address] [place] [address] Oncology 05/25/23 Embedded Firmware Developer Relationship Specialty Start Date End Date Jt Stokes MD [address] [place] [address] PCP - General Family Medicine 07/21/19 Andre Quesada MD [address] [facility] [address] Oncology 05/25/23 Embedded Firmware Developer Relationship Specialty Start Date End Date Jt Stokes MD [address] [place] [address] PCP - General Family Medicine 07/21/19 Andre Quesada MD [address] [place] [address] Oncology 05/25/23 Embedded Firmware Developer Relationship Specialty Start Date End Date Jt Stokes MD [address] [place] [address] PCP - General Family Medicine 07/21/19 Andre Quesada MD [address] [place] [address] Oncology 05/25/23 Embedded Firmware Developer Relationship Specialty Start Date End Date Jt Stokes MD [address] [place] [address] PCP - General Family Medicine 07/21/19 Andre Quesada MD [address] [place] [address] Oncology 05/25/23 Embedded Firmware Developer Relationship Specialty Start Date End Date Jt Stokes MD [address] [place] [address] PCP - General Family Medicine 07/21/19 Andre Quesada MD [address] [place] [address] Oncology 05/25/23 Embedded Firmware Developer Relationship Specialty Start Date End Date Jt Stokes MD [address] [place] [address] PCP - General Family Medicine 07/21/19 Andre Quesada MD [address] [place] [address] Oncology 05/25/23 Embedded Firmware Developer Relationship Specialty Start Date End Date Jt Stokes MD [address] [facility] [address] [place] [address] PCP - General Family Medicine 07/21/19 Andre Quesada MD [address] [facility] [address] [place], [place] [id number] [phone] Oncology 05/25/23 Embedded Firmware Developer Relationship Specialty Start Date End Date Jt Stokes MD [address] [facility] [address] [place], [place] [id number] PCP - General Family Medicine 07/21/19 Andre Quesada MD [address] [facility] [address] [place] [address] Oncology 05/25/23 Embedded Firmware Developer Relationship Specialty Start Date End Date Jt Stokes MD [address] [facility] [address] [place], [place] [address] PCP - General Family Medicine 07/21/19 Andre Quesada MD [address] [facility] [address] [place] [address] Oncology 05/25/23 Reason for Visit (unrecogniz ed section and content) Reason Comments Patient Question Care Coordination Reason Comments Patient Question Reason Comments Care Coordination Specialty Diagnoses / Procedures Referred By Contac t Referred To Contact MR IMAGING Diagnoses Malignant neoplasm of rectum (HCC) Procedures MRI RECTUM WO/W IVCON MRI PELVIS W/O & W/CONTRAST MATERIAL Ernesto Aguiar MD [address] [place] [address] [place] [address] Referral ID Status Reason Start Date Expiration Date V isits Requested Visits Authorized [id number] Closed Auto-Generate d Referral 07/09/2023 09/13/2023 [address] chest/abd/pel res ults Reason Comments Radiology CT Specialty Diagnoses / Procedures Referred By Contac t Referred To Contact CT IMAGING Diagnoses Malignant neoplasm of rectum (HCC) Procedures CT ABD/PEL W IVCON CT ABD & PELVIS W/CONTRAST Ernesto Aguiar MD [address] [place] [address] [place] [address] Referral ID Status Reason Start Date Expiration Date V isits Requested Visits Authorized [id number] Closed Auto-Generate d Referral 07/09/2023 09/13/2023 1 1 Reason Comments Established Patient Specialty Diagnoses / Procedures Referred By Contac t Referred To Contact Colon and Rectal Surgery / COLORECTAL SURGERY Diagnoses Discussing imaging from 07/29 rectal cancer/flex sig - completed chemoradiation on 07/07 Procedures OFFICE/OUTPATIENT ESTABLISHED MOD MDM 30-39 MIN EST DDI PATIENT Jt Stokes MD [address] [facility] [address] [place] [address] Ernesto Aguiar MD [address] [facility] [place] [id number] Referral ID Status Reason Start Date Expiration Date Visits Re quested Visits Authorized [id number] Closed 08/04/2023 09/13/2023 1 1 Reason Comments Patient Update Reason Comments Appointment Referral ID Status Reason Start Date Expiration Date V isits Requested Visits Authorized [id number] Closed Auto-Generate d Referral 10/28/2023 11/26/2024 1 1 Reason Comments CVAD Access Specialty Diagnoses / Procedures Referred By Contac t Referred To Contact CT IMAGING Diagnoses Malignant neoplasm of rectum (HCC) Procedures CT CHEST W IVCON DIAGNOSTIC COMPUTED TOMOGRAPHY THORAX W/CONTRAST Ernesto Aguiar MD [address] [place] [address] [place] [address] Referral ID Status Reason Start Date Expiration Date V isits Requested Visits Authorized [id number] Closed Auto-Generate d Referral 03/25/2024 04/24/2025 1 1 Reason Comments Radiology MRI Specialty Diagnoses / Procedures Referred By Contac t Referred To Contact MR IMAGING Diagnoses Malignant neoplasm of rectum (HCC) Procedures MRI RECTUM WO/W IVCON MRI PELVIS W/O & W/CONTRAST MATERIAL Ernesto Aguiar MD [address] [place] [address] [place] [address] Referral ID Status Reason Start Date Expiration Date V isits Requested Visits Authorized [id number] Closed Auto-Generate d Referral 04/18/2024 05/18/2025 1 1 Reason Comments Follow Up Rectal Cancer FOR RECORDS PERTAINING TO PATIENTS WHO ARE [...] BE BASED ON THE PRIMARY CLINICAL RECORDS. [employer] provides no warranty or guarantee of the accuracy or completeness of information in this document.
== END | disposition home or self-care (01) ==
LOC: PAVLAB 09:14
PROVIDERS: PCP Family Medicine; Referring Provider Family Medicine; Visit Provider Family Medicine
DX: Z12.5 Encounter for screening for malignant neoplasm of prostate (principal)
CPT/HCPCS: 36415; 84153; G0103

== ENCOUNTER 2024-08-03 06:04 | Outpatient (RCR) | payer MEDICARE, OTHER, SELFPAY ==
[2024-08-03 06:56] LABS: International Normalized Ratio 2.4; Prothrombin Time (Protime)PT. 25.6 SECONDS (11.7-14.9)
== END 2024-08-13 18:00 | disposition home or self-care (01) ==
LOC: LAB 06:04
PROVIDERS: PCP Family Medicine; Referring Provider Nurse Practitioner Family; Visit Provider Nurse Practitioner Family
DX: Z86.79 Personal history of other diseases of the circulatory system (principal); I26.99 Other pulmonary embolism without acute cor pulmonale; Z79.01 Long term (current) use 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s
CPT/HCPCS: 36415; 85610

== ENCOUNTER → 2024-08-10 | Outpatient (CLI) | payer MEDICARE, OTHER, SELFPAY ==
[2024-08-10 08:38] LABS: Bacteria 0 SEEN /hpf (None Seen); Mucous, Urine 0 SEEN /hpf (<or=2+); Red Blood Cells-Urine 0 SEEN /hpf (0-5); White Blood Cells 0 SEEN /hpf (0-5)
[2024-08-10 10:37] LABS: Color, Urine Yellow (Yellow); Glucose, Dipstick Normal (Normal); Ketone-Dipstick Negative (Negative); Leukocyte Esterase-Dipstick Negative /ul (Negative); Nitrite-Dipstick Negative (Negative); Occult Blood-Urine Negative /ul (Negative); Protein-Dipstick Negative (Negative); Specific Gravity, Urine 1.015 (1.002-1.030); Urine Bilirubin Dipstick Negative (Negative); Urine Clarity Clear (Clear); Urine Urobilinogen Normal (Normal)
[2024-08-10 10:38] LABS: Absolute Lymphocyte Count 0.64 X10^3/uL (0.83-4.51); Absolute Neutrophil Count 5.3 X10^3/uL (2.0-7.7); Basophil# 0.03 X10^3/uL; Basophil% 0.4 % (0-1); Eosinophil# 0.19 X10^3/uL; Eosinophils% 2.8 % (0-5); Hematocrit 43.3 % (40-54); Hemoglobin 14.2 g/dL (13.0-16.5); Lymphocyte # 0.64 X10^3/ul (0.83-4.51); Lymphocyte % 9.5 % (19-41); Mean Corp Hgb Conc 32.8 g/dL (32-36); Mean Corpuscular Hgb 30.5 pg (27.0-32.0); Mean Corpuscular Volume 93.1 fL (80-94); Mean Platelet Vol. 9.5 fl (6.2-12.0); Monocyte# 0.59 X10^3/uL; Monocyte% 8.8 % (0-10); NRBC Flagged by Analyzer 0 % (0-5); Neutrophil # 5.25 X10^3/uL (2.7-7.7); Neutrophil % 78.2 % (47-70); Platelet Count 242 K/mm3 (150-450); RBC Distribution Width CV 14.6 % (11.6-14.6); RBC Distribution Width SD 50.4 fl (35.1-43.9); Red Blood Count 4.65 M/mm3 (4.6-6.2); White Blood Count 6.7 K/mm3 (4.4-11.0)
[2024-08-10 10:53] LABS: Squamous Epithelial Cells - UA 0-5 SEEN /hpf (0-5)
[2024-08-10 11:04] LABS: Vitamin D,25 Hydroxy 43.6 ng/mL
[2024-08-10 11:09] LABS: Hemoglobin A1c 5.8 % (3.8-5.6)
[2024-08-10 12:26] LABS: AST(SGOT) 18 U/L (15-37); Alanine Aminotransfer ALT/SGPT 27 U/L (16-61); Albumin, Serum 3.7 g/dL (3.2-5.0); Alkaline Phosphatase 86 U/L (45-117); Anion Gap 7 (5-15); BUN 24 mg/dL (7-18); BUN/Creat Ratio 24.1 RATIO (10-20); Calcium,Total 8.7 mg/dL (8.5-10.1); Chloride 112 mmol/L (98-107); Cholesterol 172 mg/dL (200); EST Glomerular Filtration Rate 80 mL/min (>60); Est Glom Filt Rate - Afr Amer 97 mL/min (>60); Globulin 3.6 g/dL (2.2-4.2); Glucose 111 mg/dL (74-106); High Density Lipoprotein 44 mg/dL; Magnesium 2.2 mg/dL (1.6-2.6); Potassium 3.7 mmol/L (3.5-5.1); Protein, Total 7.3 g/dL (6.4-8.2); Sodium Level 141 mmol/L (136-145); Triglycerides 74 mg/dL; Very Low Density Lipoprotein 15 mg/dL (5-40)
== END | disposition home or self-care (01) ==
LOC: MFPLAB 08:31
PROVIDERS: PCP Family Medicine; Visit Provider Family Medicine
DX: I48.91 Unspecified atrial fibrillation (principal); I10 Essential (primary) hypertension; E78.00 Pure hypercholesterolemia, unspecified; E55.9 Vitamin D deficiency, unspecified; R73.02 Impaired glucose tolerance (oral)
CPT/HCPCS: 36415; 80053; 80061; 81001; 82306; 83036; 83735; 84443; 85025

== ENCOUNTER → 2024-08-22 | Outpatient (CLI) | payer MEDICARE, OTHER, SELFPAY ==
--- NOTE | 2024-08-22 12:40 | US_ITS ---
STUDY: THYROID ULTRASOUND REASON FOR EXAM: Male, 64 years old. Thyroid nodule. TECHNIQUE: Ultrasound evaluation of the thyroid was performed with real-time and static zavala-scale imaging. COMPARISON: Comparison is made with prior study May 13, 2023. FINDINGS: RIGHT LOBE: The right lobe of the thyroid gland measures 4.6 x 1.4 cm x 1.2 cm. There is a heterogeneous echotexture. There are no demonstrated solid, cystic or complex lesions. LEFT LOBE: The left lobe of the thyroid gland measures 3.6 cm x 1.8 cm x 1.4 cm. There is a heterogeneous echotexture. There is a 1.3 cm x 0.9 cm x 0.9 cm heterogeneous hypoechoic nodule in the lower pole of the left lobe the thyroid. This has decreased in size as compared to prior study. ISTHMUS: The isthmus measures 2 mm. The regional lymph nodes are normal. US/Thyroid IMPRESSION: Heterogeneous echotexture of both lobes of the thyroid gland. 1.3 cm x 0.9 cm x 0.9 cm heterogeneous nodule in the lower pole of the left lobe of the thyroid. This is unchanged. Correlation with a nuclear medicine uptake and thyroid scan recommended. Electronically Signed: Al Beasley MD at 14:35 EST ,
== END | disposition home or self-care (01) ==
LOC: US 12:39
PROVIDERS: PCP Family Medicine; Referring Provider Family Medicine; Visit Provider Family Medicine
DX: E04.1 Nontoxic single thyroid nodule (principal)
CPT/HCPCS: 76536

== ENCOUNTER 2024-08-24 15:01 | Outpatient (CLI) | payer MEDICARE, OTHER, SELFPAY ==
[2024-08-24 15:38] LABS: International Normalized Ratio 2.3; Prothrombin Time (Protime)PT. 25.2 SECONDS (11.7-14.9)
== END 2024-08-24 23:59 | disposition home or self-care (01) ==
PROVIDERS: PCP Family Medicine; Referring Provider Internal Medicine Cardiovascular Disease; Visit Provider Internal Medicine Cardiovascular Disease
DX: Z86.79 Personal history of other diseases of the circulatory system (principal); Z79.01 Long term (current) use 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s; Z86.711 Personal history of pulmonary embolism
CPT/HCPCS: 36591; 85610; A4216

== ENCOUNTER → 2024-09-20 | Outpatient (CLI) | payer MEDICARE, OTHER, SELFPAY ==
--- NOTE | 2024-09-20 14:18 | RAD_ITS ---
STUDY: X-RAY CHEST REASON FOR EXAM: Male, 64 years old. Atypical chest pain TECHNIQUE: PA and lateral views of the chest. COMPARISON: 04/27/2024 FINDINGS: Stable appearance of a right subclavian port Lungs are mildly hyperexpanded with chronic interstitial changes and bibasilar atelectasis. Normal size heart. Normal mediastinum and rubina. Normal visualized pulmonary arteries. Normal visualized aortic arch and descending thoracic aorta. There are diffuse degenerative changes of the visualized thoracic spine. Normal visualized ribs, clavicles, and shoulders. There is no demonstrated abnormality of the visualized soft tissue structures of the upper abdomen. RAD/Chest PA and Lateral IMPRESSION: Mildly hyperexpanded lungs with chronic interstitial changes and bibasilar atelectasis. Electronically Signed: Fernie Del Angel MD at 18:56 EST ,
[2024-09-20 18:06] LABS: Absolute Neutrophil Count 4.1 X10^3/uL (2.0-7.7); Basophil# 0.03 X10^3/uL; Basophil% 0.5 % (0-1); Eosinophil# 0.21 X10^3/uL; Eosinophils% 3.8 % (0-5); Hematocrit 41.5 % (40-54); Hemoglobin 13.2 g/dL (13.0-16.5); Lymphocyte % 10.9 % (19-41); Mean Corp Hgb Conc 31.8 g/dL (32-36); Mean Corpuscular Hgb 29.7 pg (27.0-32.0); Mean Corpuscular Volume 93.5 fL (80-94); Mean Platelet Vol. 9.2 fl (6.2-12.0); Monocyte# 0.54 X10^3/uL; Monocyte% 9.8 % (0-10); NRBC Flagged by Analyzer 0 % (0-5); Neutrophil # 4.09 X10^3/uL (2.7-7.7); Neutrophil % 74.5 % (47-70); POSITIVE DIFFERENTIAL YES; Platelet Count 261 K/mm3 (150-450); RBC Distribution Width CV 14.3 % (11.6-14.6); RBC Distribution Width SD 49.2 fl (35.1-43.9); Red Blood Count 4.44 M/mm3 (4.6-6.2); White Blood Count 5.5 K/mm3 (4.4-11.0)
[2024-09-20 18:08] LABS: Differential Indicated SCAN CRITERIA MET
[2024-09-20 18:11] LABS: International Normalized Ratio 2.7; Prothrombin Time (Protime)PT. 29.5 SECONDS (11.7-14.9)
[2024-09-20 19:14] LABS: Anion Gap 4 (5-15); BUN 23 mg/dL (7-18); BUN/Creat Ratio 22.3 RATIO (10-20); Calcium,Total 8.9 mg/dL (8.5-10.1); Chloride 108 mmol/L (98-107); Creatinine, Serum 1.03 mg/dL (0.70-1.30); EST Glomerular Filtration Rate 77 mL/min (>60); Est Glom Filt Rate - Afr Amer 93 mL/min (>60); Glucose 108 mg/dL (74-106); Potassium 3.8 mmol/L (3.5-5.1); Sodium Level 141 mmol/L (136-145)
== END | disposition home or self-care (01) ==
PROVIDERS: Internal Medicine Clinical Cardiac Electrophysiology; PCP Family Medicine; Referring Provider Internal Medicine Cardiovascular Disease; Visit Provider Internal Medicine Cardiovascular Disease
DX: I48.91 Unspecified atrial fibrillation (principal); R07.9 Chest pain, unspecified
CPT/HCPCS: 36415; 71046; 80048; 85025; 85610

== ENCOUNTER → 2024-09-23 | Outpatient (CLI) | payer MEDICARE, OTHER, SELFPAY ==
--- NOTE | 2024-09-23 16:33 | STRESSREP_ITS ---
Stress Test Report Date: 09/23/2024 Procedure: Pharmacologic stress nuclear imaging study Indications: Chest pain Consent: Per the patient Procedure: The patient underwent pharmacologic (Regadenoson) evaluation with a peak heart rate of 90 beats per minute (58%predicted maximal heart rate) and a peak blood pressure of 128/50 mmHg. The baseline ECG demonstrated normal sinus rhythm. EKG during lexiscan infusion revealed no significant ischemic changes. EKG post infusion revealed no significant ischemic changes [There were no cardiac dysrhythmias pretest, during pharmacologic infusion, or recovery]. [There was no complaint of chest discomfort during pharmacologic infusion or recovery]. The examination was discontinued secondary to completion of protocol. Impression: 1. Lexiscan stress test test is negative for Lexiscan infusion induced EKG changes of ischemia. 2. Lexiscan stress test test is negative for Lexiscan infusion induced chest pain. 3. Results of the nuclear portion of the test is as below Myocardial perfusion imaging study: Technique: The patient was injected with 14.6 millicuries of technetium 99m Cardiolite and subsequently rest SPECT Cardiolite nuclear imaging was obtained in the horizontal long, vertical long, and short axis views. The patient underwent pharmacologic [Regadenoson 0.4mg] evaluation. Please see above for details. The patient was injected with 44.8 millicuries of technetium 99m Cardiolite and subsequently stress SPECT Cardiolite nuclear imaging was obtained in the horizontal long, vertical long, and short axis views. A gated Cardiolite study at peak stress was obtained. Interpretation: Rest and stress SPECT Cardiolite nuclear imaging status post realignment, normalization, and attenuation correction demonstrate no evidence of significant ischemia or infarction. Gated images reveal no significant regional wall motion abnormalities. The reported LVEF is 70%. Impression: 1. There is no evidence of significant ischemia or infarction. 2. Estimated ejection fraction is 70%. This note was generated with [employer] software. It may contain incorrect words, spelling, and punctuation that were not noted in checking the note before signing.
== END | disposition home or self-care (01) ==
LOC: CVS 06:35
PROVIDERS: PCP Family Medicine; Referring Provider Family Medicine; Visit Provider Family Medicine
DX: R07.9 Chest pain, unspecified (principal)
CPT/HCPCS: 78452; 93017; A9500; A4216; J2785

== ENCOUNTER → 2024-09-27 | Outpatient (CLI) | payer MEDICARE, OTHER, SELFPAY ==
[2024-09-27 18:18] LABS: International Normalized Ratio 2.6; Prothrombin Time (Protime)PT. 28.3 SECONDS (11.7-14.9)
== END | disposition home or self-care (01) ==
PROVIDERS: PCP Family Medicine
DX: I48.0 Paroxysmal atrial fibrillation (principal)
CPT/HCPCS: 36415; 85610

== ENCOUNTER 2024-10-19 14:27 | Outpatient (CLI) | payer MEDICARE, OTHER, SELFPAY ==
[2024-10-19 15:11] LABS: International Normalized Ratio 1.8; Prothrombin Time (Protime)PT. 21.4 SECONDS (11.7-14.9)
== END 2024-10-19 23:59 | disposition home or self-care (01) ==
LOC: MEDOUTP 14:28
PROVIDERS: PCP Family Medicine; Referring Provider Nurse Practitioner Family; Visit Provider Nurse Practitioner Family
DX: Z79.01 Long term (current) use 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s (principal); Z86.711 Personal history of pulmonary embolism; Z86.79 Personal history of other diseases of the circulatory system
CPT/HCPCS: 36415; 85610; 96523; A4216

== ENCOUNTER → 2024-11-07 | Outpatient (CLI) | payer MEDICARE, OTHER, SELFPAY ==
[2024-11-07 10:38] LABS: International Normalized Ratio 2.1; Prothrombin Time (Protime)PT. 24.1 SECONDS (11.7-14.9)
== END | disposition home or self-care (01) ==
PROVIDERS: PCP Family Medicine; Visit Provider Internal Medicine Cardiovascular Disease
DX: Z79.01 Long term (current) use 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s (principal); Z86.79 Personal history of other diseases of the circulatory system; Z86.711 Personal history of pulmonary embolism
CPT/HCPCS: 36415; 85610

== ENCOUNTER → 2024-12-01 | Outpatient (CLI) | payer MEDICARE, OTHER, SELFPAY ==
[2024-12-01 15:47] LABS: International Normalized Ratio 2.1; Prothrombin Time (Protime)PT. 23.8 SECONDS (11.7-14.9)
== END | disposition home or self-care (01) ==
PROVIDERS: PCP Family Medicine; Visit Provider Internal Medicine Cardiovascular Disease
DX: Z79.01 Long term (current) use 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s (principal)
CPT/HCPCS: 36415; 85610

== ENCOUNTER → 2024-12-09 | Outpatient (CLI) | payer MEDICARE, OTHER, SELFPAY ==
[2024-12-09 08:46] LABS: Bacteria 0 SEEN /hpf (None Seen)
[2024-12-09 10:09] LABS: Absolute Lymphocyte Count 0.51 X10^3/uL (0.83-4.51); Absolute Neutrophil Count 3.7 X10^3/uL (2.0-7.7); Basophil# 0.04 X10^3/uL; Basophil% 0.8 % (0-1); Eosinophil# 0.18 X10^3/uL; Eosinophils% 3.6 % (0-5); Hemoglobin 13.6 g/dL (13.0-16.5); Lymphocyte # 0.51 X10^3/ul (0.83-4.51); Lymphocyte % 10.3 % (19-41); Mean Corp Hgb Conc 33.2 g/dL (32-36); Mean Corpuscular Hgb 30.8 pg (27.0-32.0); Mean Corpuscular Volume 92.8 fL (80-94); Mean Platelet Vol. 9.1 fl (6.2-12.0); Monocyte# 0.51 X10^3/uL; Monocyte% 10.3 % (0-10); NRBC Flagged by Analyzer 0 % (0-5); Neutrophil # 3.72 X10^3/uL (2.7-7.7); Neutrophil % 74.8 % (47-70); POSITIVE DIFFERENTIAL YES; Platelet Count 266 K/mm3 (150-450); RBC Distribution Width CV 13.8 % (11.6-14.6); Red Blood Count 4.42 M/mm3 (4.6-6.2)
[2024-12-09 11:25] LABS: Color, Urine Yellow (Yellow); Glucose, Dipstick Normal (Normal); Ketone-Dipstick Negative (Negative); Leukocyte Esterase-Dipstick 500 /ul (Negative); Nitrite-Dipstick Negative (Negative); Occult Blood-Urine 10 /ul (Negative); Protein-Dipstick 15 mg/dl (Negative); Specific Gravity, Urine 1.015 (1.002-1.030); Urine Bilirubin Dipstick Negative (Negative); Urine Clarity Clear (Clear); Urine Urobilinogen Normal (Normal)
[2024-12-09 11:38] LABS: Hemoglobin A1c 5.8 % (<=5.6)
[2024-12-09 11:39] LABS: Mucous, Urine 1+ /hpf (<or=2+); Red Blood Cells-Urine 0 SEEN /hpf (0-5); Squamous Epithelial Cells - UA 0-5 SEEN /hpf (0-5); White Blood Cells 10-25 SEEN /hpf (0-5)
[2024-12-09 11:57] LABS: ALB/GLOB Ratio 1.4 RATIO (0.9-2.4); AST(SGOT) 20 U/L (<=37); Alanine Aminotransfer ALT/SGPT 19 U/L (<=46); Albumin, Serum 4.1 g/dL (3.4-4.8); Alkaline Phosphatase 87 U/L (40-129); Anion Gap 14 (5-15); BUN 23 mg/dL (4-19); BUN/Creat Ratio 23.1 RATIO (10-20); Calcium,Total 9.2 mg/dL (7.6-11.0); Carbon Dioxide 18.8 mmol/L (21.0-32.0); Chloride 105 mmol/L (98-108); EST Glomerular Filtration Rate 83 (>60); Glucose 114 mg/dL (70-99); Magnesium 2.1 mg/dL (1.5-2.2); Potassium 4.1 mmol/L (3.3-5.1); Protein, Total 7.1 g/dL (5.9-8.4); Sodium Level 138 mmol/L (133-145); Total Bilirubin 0.38 mg/dL (0.00-1.30)
[2024-12-09 12:13] LABS: Cholesterol 176 mg/dL (<=200); High Density Lipoprotein 40 mg/dL; Low Density Lipoprotein Calc. 113 mg/dL; Triglycerides 112 mg/dL; Very Low Density Lipoprotein 22 mg/dL (5-40); cholesterol:hdl ratio screen 4.36
== END | disposition home or self-care (01) ==
LOC: MFPLAB 08:36
PROVIDERS: PCP Family Medicine; Referring Provider Family Medicine; Visit Provider Family Medicine
DX: R73.02 Impaired glucose tolerance (oral) (principal); E78.00 Pure hypercholesterolemia, unspecified; I10 Essential (primary) hypertension; E55.9 Vitamin D deficiency, unspecified
CPT/HCPCS: 36415; 80053; 80061; 81001; 82306; 83036; 83735; 85025

== ENCOUNTER → 2024-12-14 | Outpatient (CLI) | payer MEDICARE, OTHER, SELFPAY ==
[2024-12-14 11:20] LABS: Bacteria 0 SEEN /hpf (None Seen); Mucous, Urine 0 SEEN /hpf (<or=2+); Red Blood Cells-Urine 0 SEEN /hpf (0-5)
[2024-12-14 12:22] LABS: Color, Urine Yellow (Yellow); Glucose, Dipstick Normal (Normal); Ketone-Dipstick Negative (Negative); Leukocyte Esterase-Dipstick 100 /ul (Negative); Nitrite-Dipstick Negative (Negative); Occult Blood-Urine Negative /ul (Negative); Protein-Dipstick Negative (Negative); Urine Bilirubin Dipstick Negative (Negative); Urine Clarity Clear (Clear); Urine Urobilinogen Normal (Normal)
[2024-12-14 12:34] LABS: Squamous Epithelial Cells - UA 0-5 SEEN /hpf (0-5); White Blood Cells 5-10 SEEN /hpf (0-5)
== END | disposition home or self-care (01) ==
LOC: MFPLAB 11:15
PROVIDERS: PCP Family Medicine; Referring Provider Family Medicine; Visit Provider Family Medicine
DX: R39.89 Other symptoms and signs involving the genitourinary system (principal)
CPT/HCPCS: 81001

== ENCOUNTER → 2024-12-30 | Outpatient (CLI) | payer MEDICARE, OTHER, SELFPAY ==
[2024-12-30 12:46] LABS: International Normalized Ratio 2.2; Prothrombin Time (Protime)PT. 25.2 SECONDS (11.7-14.9)
== END | disposition home or self-care (01) ==
PROVIDERS: PCP Family Medicine; Visit Provider Internal Medicine Cardiovascular Disease
DX: Z86.73 Personal history of transient ischemic attack (TIA), 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 deficits (principal); Z79.01 Long term (current) use 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s
CPT/HCPCS: 36415; 85610

== ENCOUNTER → 2025-02-28 | Outpatient (CLI) | payer MEDICARE, OTHER, SELFPAY ==
[2025-02-28 12:38] LABS: Prothrombin Time (Protime)PT. 23.3 SECONDS (11.7-14.9)
== END | disposition home or self-care (01) ==
PROVIDERS: PCP Family Medicine; Visit Provider Internal Medicine Cardiovascular Disease
DX: Z79.01 Long term (current) use 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s (principal)
CPT/HCPCS: 36415; 85610

== ENCOUNTER 2025-03-24 07:22 | Day surgery (SDC) | payer MEDICARE, OTHER, SELFPAY ==
--- NOTE | 2025-03-23 10:48 | PAT.ANESEVAL ---
Pre-Assessment Diagnosis/Proposed Procedure Planned Operative Procedure(s): CSCOPE Anesthesia History Anesthesia History - credit charge authorizer: Anesthesia History - credit charge authorizer Hx Hospitalization No 03/23/25 08:21 Any Problems With Anesthesia No 03/23/25 08:21 Cholinesterase deficiency No 03/23/25 08:21 You/Your Family Experience No 03/23/25 08:21 fever (hyperthermia) with Relationship Recent Exposure to Contagious No 05/23/24 12:19 Disease Does patient have nerve No 03/23/25 08:21 stimulator Patient instructed to have device shut off --Does patient have Pacemaker or ICD? When Was Last Pacemaker Check QUESTION #4 FULL TEXT: You/Your Family Experience fever (hyperthermia) with Anesthesia Last Oral Intake Last Oral intake: Last Oral Intake NPO since Meds taken in AM with sips of water? Meds patient instructed to take am of surgery PONV PONV - credit charge authorizer: PONV - credit charge authorizer Female No 03/23/25 08:21 HX of Motion Sickness No 03/23/25 08:21 HX of N/V After Surgery No 03/23/25 08:21 Non-Smoker No 03/23/25 08:21 Duration of Surgery greater No 03/23/25 08:21 than 60 minutes Number of Risk Factors PONV Score Height & Weight Height & Weight: Anesthesia: Height & Weight Height 5 ft 11 in 02/03/25 06:54 Respiratory Assessment Respiratory Assessment - credit charge authorizer: Respiratory Tract Infection Hx - credit charge authorizer Hx Respiratory Tract Infection No 03/23/25 08:21 STOP Sleep Apnea STOP Sleep Apnea - credit charge authorizer: STOP Sleep Apnea - credit charge authorizer Hx Hypertension Yes: CONTROLLED WITH MED 03/23/25 08:21 Hx Sleep Apnea Yes 03/23/25 08:21 CPAP Yes 03/23/25 08:21 BIPAP No 03/23/25 08:21 Do you snore loudly (louder than talking or can be heard Do you often feel tired/ fatigued/ sleepy during daytime? Has anyone observed you stop breathing during sleep? STOP Results Positive 03/23/25 08:21 QUESTION #5 FULL TEXT : Do you snore loudly (louder than talking or can be heard through closed doors)? 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 Specify any problems Hx of Preganancy in last 3 N/A 03/23/25 08:21 Months Nurse Filling Out Transfusion DSCHRIBER 03/23/25 08:21 & Questions: Date: 03/23/25 03/23/25 08:21 Time: 08:22 03/23/25 08:21 Patient unable to answer at this time (ie. confused, unrespo /Reproduction History /Reproductive History - credit charge authorizer: /Reproductive Hx- credit charge authorizer Hx Now Gestational Age (in weeks): EDC: Hx Hx Para Hx Section SAB No 03/23/25 08:21 PFSH Medical History (Updated 03/23/25 @ 08:29 by Mojgan Torres) History of stress test Anxiety CPAP (continuous positive airway pressure) dependence Diverticulitis Low back pain Thyroid disease History of echocardiogram Cancer Rectal cancer High cholesterol DVT (deep venous thrombosis) Gastric reflux Non-smoker History of edema Cardiology follow-up encounter Hypertension Weight gain with edema History of venous thromboembolism Pulmonary embolism (06/10/18) Arthritis Home Medications ?Medication ?Instructions ?Recorded ?Last Taken ?Type cholecalciferol (vitamin D3) 50 2,000 unit PO DAILY supplement 06/16/19 05/22/24 History mcg (2,000 unit) capsule furosemide 40 mg tablet 40 mg PO DAILY diuretic 06/16/19 05/22/24 History benazepril 20 mg tablet 20 mg PO DAILY blood pressure 01/09/21 05/23/24 History sertraline 50 mg tablet 50 mg PO QHS depression 01/09/21 05/22/24 History omeprazole 20 mg capsule,delayed 20 mg PO Q OTHER DAY GERD 10/25/21 05/22/24 History release aspirin 81 mg tablet,delayed 81 mg PO DAILY heart #90 tabs 01/15/24 03/17/25 Rx release (Enteric Coated Aspirin) warfarin 5 mg tablet 7 mg PO MOTUWETHFR blood thinner 02/14/24 03/16/25 History diltiazem HCl 300 mg 300 mg PO QDAY heart #90 caps 04/26/24 05/23/24 Rx capsule,extended release 24 hr acetaminophen 500 mg tablet 500 mg PO Q6H PRN pain 06/09/24 Unknown History (Tylenol Extra Strength) rosuvastatin 5 mg tablet (Crestor) 5 mg PO Q OTHER DAY cholesterol 01/12/25 Unknown Rx #45 tabs tirzepatide (weight loss) 2.5 2.5 mg subcut KOEHLER 02/03/25 03/12/25 History mg/0.5 mL subcutaneous pen injector (Zepbound) warfarin 5 mg tablet 8 mg PO SUSA 03/23/25 03/16/25 History Allergy/AdvReac Type Severity Reaction Status Date / Time simvastatin AdvReac Severe Myalgias Verified 03/23/25 08:17 doxycycline AdvReac Intermediate GI upset Verified 03/23/25 08:17 Family History Mother CAD (coronary artery disease) Diabetes Hypertension Hyperlipidemia Heart disease Father CVA (cerebral vascular accident) Surgical History (Updated 03/23/25 @ 08:29 by Mojgan Torres) History of cardiac ablation for atrial fibrillation S/P left rotator cuff repair S/P ablation of atrial fibrillation History of vascular access device History of cardiac catheterization History of colonoscopy (~06/2016) History of left heart catheterization (10/21/18) History of left inguinal hernia repair History of appendectomy History of hip surgery Social History Smoking Status: Never smoker second hand exposure: Yes alcohol intake: never substance use type: does not use caffeine: Yes Type: carbonated beverages Number of servings: 1 Audit: Pertinent Findings Pertinent Findings EKG Perinent findings: 08/03/2024. Sinus rhythm. Left atrial enlargement. Stress test pertinent findings: September 23, 2024. EF of 70%. No evidence of significant ischemia or infarction. Echo (EF%) pertinent findings: May 13, 2023. EF of 60%. No aortic stenosis noted. Heart catheterization pertinent findings: October 21, 2018. Normal coronary arteries. EF of 75%. Consult pertinent findings: February 03, 2025. Keron NAGY. 1. Paroxysmal atrial fibrillation?chronic-status post ablation. Patient does acknowledge occasional palpitations. Denies any recurrence of A-fib. Normal sinus rhythm on exam today. Continue diltiazem and warfarin. 2. Long-term current use 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?chronic-patient has a history of pulmonary emboli. And paroxysmal atrial fibrillation. Continue warfarin therapy. Recommendation Anesthesia Recommendation Anesthesia recommendation: OPTIMIZED for anesthesia
--- NOTE | 2025-03-24 07:27 | PRE.ANES_ITS ---
ASA Classification* ASA Classification ASA Classification: 2 Assessment & Plan Anesthesia* Anesthesia Assessment Anesthesia Assessment: Discussed sedation and/or anesthesia options, risks, benefits, and alternatives with patient/parents/legal guardian/POA. Questions invited. The patient/parents/legal guardian/POA seems to understand and agrees to proceed with anesthesia plan. Reviewed the physical assessment, medical history, allergy history and patient home medications list prior to surgery/procedure/anesthetic and documented any changes. Performed airway and anesthesia risk assessments. Anesthesia Type Anesthesia Type: MAC Anesthesia Focused Assessment* Airway Assessment Mouth opens: >3 cm Mallampati Score: II Labs Anesthesia Preop lab: CBC WBC 5.0 K/mm3 (4.4-11.0) 12/09/24 08:37 12/09/24 RBC 4.42 M/mm3 (4.6-6.2) L 12/09/24 08:37 12/09/24 Hgb 13.6 g/dL (13.0-16.5) 12/09/24 08:37 12/09/24 Hct 41.0 % (40-54) 12/09/24 08:37 12/09/24 Plt Count 266 K/mm3 (150-450) 12/09/24 08:37 12/09/24 CHEMISTRY Potassium 4.1 mmol/L (3.3-5.1) 12/09/24 08:37 12/09/24 Sodium 138 mmol/L (133-145) 12/09/24 08:37 12/09/24 Magnesium 2.1 mg/dL (1.5-2.2) 12/09/24 08:37 12/09/24 Phosphorus 2.6 mg/dL (2.5-4.9) 02/16/24 06:02/16/24 BUN 23 mg/dL (4-19) H 12/09/24 08:37 12/09/24 Creatinine 1.00 mg/dL (0.70-1.20) 12/09/24 08:37 12/09/24 Glucose 114 mg/dL (70-99) H 12/09/24 08:37 12/09/24 TSH 1.250 uIU/mL (0.358-3.740) 08/10/24 08:31 07/16 04/06 COAG PT 23.3 SECONDS (11.7-14.9) H 02/28/25 09:50 02/12 04/07 Pre-Assessment Diagnosis/Proposed Procedure Planned Operative Procedure(s): CSCOPE Anesthesia History Anesthesia History - marketing project specialist: Anesthesia History - marketing project specialist Hx Hospitalization No 03/23/25 08:21 Any Problems With Anesthesia No 03/23/25 08:21 Cholinesterase deficiency No 03/23/25 08:21 You/Your Family Experience No 03/23/25 08:21 fever (hyperthermia) with Relationship Recent Exposure to Contagious No 05/23/24 12:19 Disease Does patient have nerve No 03/23/25 08:21 stimulator Patient instructed to have device shut off --Does patient have Pacemaker or ICD? When Was Last Pacemaker Check QUESTION #4 FULL TEXT: You/Your Family Experience fever (hyperthermia) with Anesthesia Last Oral Intake Last Oral intake: Last Oral Intake NPO since Meds taken in AM with sips of water? Meds patient instructed to take am of surgery PONV PONV - marketing project specialist: PONV - marketing project specialist Female No 03/23/25 08:21 HX of Motion Sickness No 03/23/25 08:21 HX of N/V After Surgery No 03/23/25 08:21 Non-Smoker No 03/23/25 08:21 Duration of Surgery greater No 03/23/25 08:21 than 60 minutes Number of Risk Factors PONV Score Height & Weight Height & Weight: Anesthesia: Height & Weight Height 5 ft 11 in 02/03/25 06:54 Respiratory Assessment Respiratory Assessment - marketing project specialist: Respiratory Tract Infection Hx - marketing project specialist Hx Respiratory Tract Infection No 03/23/25 08:21 STOP Sleep Apnea STOP Sleep Apnea - marketing project specialist: STOP Sleep Apnea - marketing project specialist Hx Hypertension Yes: CONTROLLED WITH MED 03/23/25 08:21 Hx Sleep Apnea Yes 03/23/25 08:21 CPAP Yes 03/23/25 08:21 BIPAP No 03/23/25 08:21 Do you snore loudly (louder than talking or can be heard Do you often feel tired/ fatigued/ sleepy during daytime? Has anyone observed you stop breathing during sleep? STOP Results Positive 03/23/25 08:21 QUESTION #5 FULL TEXT : Do you snore loudly (louder than talking or can be heard through closed doors)? Tobacco Use History Tobacco Use History - marketing project specialist: Tobacco Use History - marketing project specialist Tobacco Use Non-smoker 05/13/22 13:48 Smoking Status Never smoker 03/23/25 08:21 Hx Tobacco Use No 03/23/25 08:21 Years Smoking Packs Smoked per Day Smoking Cessation Date was within the last 15 years Hx Smoking Cessation Date Hx Smoking Cessation Counseling Hematologic Medial History Hematologic Hx - marketing project specialist: Hematologic Medical Hx - email production consultant Hx of Blood Transfusion No 03/23/25 08:21 Hx of Transfusion in last 3 No 03/23/25 08:21 Months Date of Last Transfusion (if within last 3 months) Ever experience any problems No 03/23/25 08:21 with transfusion(s)? Specify any problems Hx of Preganancy in last 3 N/A 03/23/25 08:21 Months Nurse Filling Out Transfusion DSCHRIBER 03/23/25 08:21 & Questions: Date: 03/23/25 03/23/25 08:21 Time: 08:22 03/23/25 08:21 Patient unable to answer at this time (ie. confused, unrespo /Reproduction History /Reproductive History - marketing project specialist: /Reproductive Hx- marketing project specialist Hx Now Gestational Age (in weeks): EDC: Hx Hx Para Hx Section SAB No 03/23/25 08:21 PFSH Medical History History of stress test Anxiety CPAP (continuous positive airway pressure) dependence Diverticulitis Low back pain Thyroid disease History of echocardiogram Cancer Rectal cancer High cholesterol DVT (deep venous thrombosis) Gastric reflux Non-smoker History of edema Cardiology follow-up encounter Hypertension Weight gain with edema History of venous thromboembolism Pulmonary embolism (06/10/18) Arthritis Home Medications ?Medication ?Instructions ?Recorded ?Last Taken ?Type cholecalciferol (vitamin D3) 50 2,000 unit PO DAILY massey pplement 06/16/19 05/22/24 History mcg (2,000 unit) capsule furosemide 40 mg tablet 40 mg PO DAILY diuretic 11/3005/22/24 History benazepril 20 mg tablet 20 mg PO DAILY blood pressur e 01/09/21 05/23/24 History sertraline 50 mg tablet 50 mg PO QHS depression 12/1405/22/24 History omeprazole 20 mg capsule,delayed 20 mg PO Q OTHER DAY GERD 10/25/21 05/22/24 History release aspirin 81 mg tablet,delayed 81 mg PO DAILY heart #90 tabs 01/15/24 03/17/25 Rx release (Enteric Coated Aspirin) warfarin 5 mg tablet 7 mg PO MOTUWETHFR blood thi nner 02/14/24 03/16/25 History diltiazem HCl 300 mg 300 mg PO QDAY heart #90 cap s 04/26/24 05/23/24 Rx capsule,extended release 24 hr acetaminophen 500 mg tablet 500 mg PO Q6H PRN pain Unknown History (Tylenol Extra Strength) rosuvastatin 5 mg tablet (Crestor) 5 mg PO Q OTHER DAY cholesterol 01/12/25 Unknown Rx #45 tabs tirzepatide (weight loss) 2.5 2.5 mg subcut MASSEY 5 03/12/25 History mg/0.5 mL subcutaneous pen injector (Zepbound) warfarin 5 mg tablet 8 mg PO SUSA 03/23/25 History Allergy/AdvReac Type Severity Reaction Status Date / Time simvastatin AdvReac Severe Myalgias Verified 03/23/25 08:17 doxycycline AdvReac Intermediate GI upset Verified 03/23/25 08:17 Family History Mother CAD (coronary artery disease) Diabetes Hypertension Hyperlipidemia Heart disease Father CVA (cerebral vascular accident) Surgical History History of cardiac ablation for atrial fibrillation S/P left rotator cuff repair S/P ablation of atrial fibrillation History of vascular access device History of cardiac catheterization History of colonoscopy (~06/2016) History of left heart catheterization (10/21/18) History of left inguinal hernia repair History of appendectomy History of hip surgery Social History Smoking Status: Never smoker second hand exposure: Yes alcohol intake: never substance use type: does not use caffeine: Yes Type: carbonated beverages Number of servings: 1 Review of Systems (Anesthesia) ROS Narrative System reviewed and no additional complaints, except as documented.
--- OUTSIDE RECORDS SUMMARY | 2025-03-24 07:30 | XMS RPT_ITS | CCD ---
Author Organization [facility] [place] [facility] Team Providers Care Pleater Hand Name Role Phone DEANNA ACKERMAN Unavailable Unavailable JT GUSTAFSON Unavailable Dr. Jt Casiano Primary Care Provider Dr. Ricki Harris Attending Provider [phone] Ricki Harris Referring Provider [phone] Jt Membreno Referring Provider Dr. Sheng Jones Attending Provider [phone] Keron FIELD REP, FIELD REP-C Gloria Attending Provider Stephanie FIELD REP, FIELD REP-C Soheila Attending Provider [phone] DILIP Aragon-C Saundra Attending Provider [phone] Dr. Jt Membreno Primary Care Provider [phone] Dr. Jt Membreno Referring Provider Dr. Jt Membreno Primary Care Provider Dr. Jt Membreno Referring Provider Dr. Jt Membreno Primary Care Provider Dr. Jt Membreno Referring Provider Dr. Andre Banks Attending Provider [phone] Jt Membreno Primary Care Provider Dr. Jt Membreno Referring Provider Dr. Andre Banks Attending Provider [phone] REY Hyde Attending Provider [phone] Dr. Ricki Harris Attending Provider [phone] Martin Razo Attending Provider 1([facility])[phone] Jt Membreno Primary Care Provider 1([facility] )[phone] Dr. Jt Membreno Referring Provider 1([facility])[phone] Dr. Jt Membreno Primary Care Provider 1([facility] )[phone] Dr. Jt Membreno Referring Provider 1([facility])[phone] Dr. Ricki Harris Attending Provider 1([facility])[phone] REY Hyde Attending Provider 1([facility])[phone] Dr. Martin Razo Attending Provider 1([facility])[phone] Jt Membreno Primary Care Provider 1([facility] )[phone] Dr. Jt Membreno Referring Provider 1([facility])[phone] Dr. Jt Membreno Primary Care Provider 1([facility] )[phone] Dr. Jt Membreno Referring Provider 1([facility])[phone] Marge FIELD REP, FIELD REP-C Jt Vasquez Attending Provider 1([facility])[phone] Dr. Sheng Jones Attending Provider 1([facility])[phone] Dr. Watson Rodriguez Attending Provider 1([facility])[phone]. Alon Boland Attending Provider 1([facility])[phone] Dr. Alon Boland Other Provider 1([facility])[phone] Andre Quesada Attending Provider 1([facility])[phone]. Cameron Childers Attending Provider 1([facility])[phone] Jt Membreno MD Primary Care Provider Andre Quesada MD Unavailable Dr. Jt Membreno Primary Care Provider 1([facility] )[phone] Dr. Jt Membreno Referring Provider 1([facility])[phone] Dr. Cameron Childers Referring Provider 1([facility])[phone] Marge FIELD REP, FIELD REP-C Jt Vasquez Attending Provider 1([facility])[phone] Marguerite FIELD REP, FIELD REP-C Brittni Attending Provider 1([facility] )[phone] Dr. Jt Membreno Primary Care Provider 1([facility] )[phone] Dr. Jt Membreno Referring Provider Dr. Watson Rodriguez Attending Provider REZA Cruz Attending Provider Dr. Jt Membreno Primary Care Provider Dr. Jt Membreno Referring Provider Dr. Alon Boland Attending Provider Dr. Alon Boland Other Provider Dr. Andre Quesada Attending Provider Dr. Watson Rodriguez Attending Provider [phone] Cameron Childers Attending Provider Dr. Cameron Childers Referring Provider Roof FIELD REP, FIELD REP-C Jt Vasquez Attending Provider Marguerite FIELD REP, FIELD REP-C Brittni Attending Provider REZA Cruz Attending Provider Dr. Ildefonso Rockwell Emergency Provider Dr. Kevin Veras Admit Provider Dr. Kevin Veras Attending Provider Dr. Kevin Veras Other Provider Dr. Estela Kwon Other Provider Dr. Estela Kwon Attending Provider Dr. Sidney Dominguez Attending Provider Unavailable Dr. Sidney Dominguez Other Provider Unavailable Dr. Jt Membreno Primary Care Provider Dr. Jt Membreno Referring Provider Dr. Alon Boland Attending Provider Dr. Alon Boland Other Provider Dr. Andre Quesada Attending Provider Dr. Watson Rodriguez Attending Provider Dr. Cameron Childers Attending Provider Dr. Cameron Childers Referring Provider Marge FIELD REP, FIELD REP-Jon Vasquez Attending Provider Marguerite FIELD REP, FIELD REP-C Brittni Attending Provider REZA Cruz Attending Provider Dr. Ildefonso Rockwell Emergency Provider Eda, Dr. Brown Admit Provider Dr. Kevin Veras Attending Provider Dr. Kevin Veras Other Provider Dr. Estela Kwon Other Provider Dr. Estela Kwon Attending Provider Dr. Sidney Dominguez Attending Provider Unavailable Alberto, Dr. Little Other Provider Unavailable Dr. Sidney Dominguez Referring Provider Unavailable Dr. Jt Membreno Primary Care Provider 1([facility] )[phone] Dr. Jt Membreno Referring Provider Dr. Alon Boland Attending Provider Dr. Alon Boland Referring Provider Dr. Alon Boland Other Provider Dr. Martin Razo Attending Provider 1([facility])[phone] Jt Membreno Primary Care Provider 1([facility] )[phone] Dr. Cameron Childers Attending Provider Dr. Jt Membreno Referring Provider Dr. Andre Quesada Attending Provider Dr. Jt Membreno Primary Care Provider Dr. Jt Membreno Referring Provider Marguerite FIELD REP, FIELD REP-Jon Elkins Attending Provider Dr. Cameron Childers Attending Provider Dr. Cameron Childers Referring Provider Dr. Andre Quesada Attending Provider 1([facility])[phone] Alon Boland Attending Provider Dr. Jt Membreno Primary Care Provider Dr. Jt Membreno Referring Provider Dr. Cameron Childers Attending Provider Dr. Cameron Childers Referring Provider Marguerite FIELD REP, FIELD REP-C Brittni Attending Provider Dr. Jt Membreno Primary Care Provider Dr. Jt Membreno Referring Provider Dr. Cameron Childers Attending Provider Dr. Andre Quesada Attending Provider 1([facility])[phone] Sheng Jones Attending Provider 1([facility])[phone] Dr. Jt Membreno Primary Care Provider 1([facility] )[phone] Dr. Ildefonso Rockwell Emergency Provider 1([facility])[phone] Kevin Veras Admit Provider 1([facility])[phone] Kevin Veras Other Provider Dr. Estela Kwon Other Provider 1([facility])[phone] REZA Cruz Attending Provider Dr. Estela Kwon Attending Provider Dr. Jt Membreno Referring Provider Dr. Jt Membreno Primary Care Provider 1([facility] )[phone] Dr. Jt Membreno Primary Care Provider Dr. Cameron Childers Attending Provider Dr. Jt Membreno Referring Provider Marguerite FIELD REP, FIELD REP-C Brittni Attending Provider Dr. Alon Boland Attending Provider Dr. Alon Boland Referring Provider Dr. Alon Boland Other Provider 1([facility])[phone] Andre Quesada Attending Provider 1([facility])[phone] Martin Razo Attending Provider Dr. Sheng Jones Attending Provider Dr. Jt Membreno Primary Care Provider 1([facility] )[phone] Dr. Jt Membreno Referring Provider 1([facility])[phone] Marguerite FIELD REP, FIELD REP-C Brittni Attending Provider 1([facility] )[phone] Dr. Cameron Childers Attending Provider 1([facility])[phone] Dr. Jt Membreno Primary Care Provider 1([facility] )[phone] Dr. Jt Membreno Referring Provider 1([facility])[phone] Dr. Andre Quesada Attending Provider 1([facility])[phone] Jt Membreno Primary Care Provider 1([facility] )[phone] Dr. Jt Membreno Referring Provider 1([facility])[phone] Marguerite FIELD REP, FIELD REP-C Brittni Attending Provider 1([facility] )[phone] Dr. Andre Quesada Attending Provider 1([facility])[phone] Jt Membreno MD Primary Care Provider Jt Membreno MD Primary Care Provider Cameron Childers DO Unavailable Dr. Jt Membreno MD Primary Care Provider [phone] Dr. Jt Membreno MD Attending Provider 1([facility] )[phone] Dr. Jt Membreno MD Referring Provider 1([facility] )[phone] Soheila Evans Attending Provider Dr. Watson Rodriguez MD Attending Provider 1([facility])[phone] Dr. Watson Rodriguez MD Referring Provider 1([facility])[phone] Dr. Jt Membreno MD Other Provider 1([facility])[phone] Josh Lr MD Other Provider Deb SHEA, Dr. Escalera Attending Provider JONNA SIERRA Attending Provider 1([facility])[phone] Roof FIELD REP-CJt Attending Provider 1([facility])[phone] Roof FIELD REP-C, Jt Vasquez Referring Provider Liseth PORTILLO, Dr. Barnes Attending Provider Dipak SHEA, Dr. Powell Referring Provider Temi SHEA, Dr. Jt Dodd Primary Care Provider Temi SHEA, Dr. Jt Dodd Attending Provider [phone] Liseth PORTILLO, Dr. Barnes Attending Provider Dipak SHEA, Dr. Powell Referring Provider Dipak SHEA, Dr. Powell Attending Provider KURTNER, JT E Primary Care Unavailable ERNESTO AGUIAR Attending Unavailable SCHINNER, JT E Primary Care Unavailable ERNESTO AGUIAR R Referring Unavailable SCHINNER, JT E Primary Care Unavailable ERNESTO AGUIAR R Attending Unavailable ERNESTO AGUIAR R Referring Unavailable SCHINNER, JT E Primary Care Unavailable ERNESTO AGUIAR R Attending Unavailable ERNESTO AGUIAR R Referring Unavailable SCHINNER, JT E Primary Care Unavailable ERNESTO AGUIAR R Attending Unavailable ERNESTO AGUIAR R Referring Unavailable SCHINNER, JT E Primary Care Unavailable AGUIARERNESTO Dodd R Referring Unavailable SCHINNER, JT E Referring Unavailable SCHINNER, JT E Primary Care Unavailable ERNETSO AGUIAR Attending Unavailable SCHINNER, JT E Primary Care Unavailable AGUIARERNESTO Dodd R Referring Unavailable SCHINNER, JT E Primary Care Unavailable AGUIARERNESTO Dodd R Referring Unavailable SCHINNER, JT E Primary Care Unavailable AGUIARERNESTO Dodd R Referring Unavailable SCHINNER, JT E Primary Care Unavailable AGUIARERNESTO Dodd R Referring Unavailable SCHINNER, JT E Primary Care Unavailable AGUIARERNESTO Dodd R Referring Unavailable SCHINNER, JT E Primary Care Unavailable ERNESTO AGUIAR R Attending Unavailable SCHINNER, JT E Primary Care Unavailable AGUIARERNESTO Dodd R Referring Unavailable LUCIO RODRIGUEZ Attending Unavailable SCHINNER, JT E Primary Care Unavailable AGUIARERNESTO Dodd R Referring Unavailable SCHINNER, JT E Primary Care Unavailable ERNESTO AGUIAR R Referring Unavailable SCHINNER, JT E Primary Care Unavailable AGUIARERNESTO Dodd R Attending Unavailable SCHINNER, JT Primary Care Unavailable CARL, MEET Attending Unavailable CHETNA SOLOMON Attending Unavailable SCHINDELIA, JT Primary Care Unavailable JOSH LR Attending Unavailable JT BIRD Referring Unavailable SCHINNER, JT Primary Care Unavailable CARL, MEET Attending Unavailable CARL, MEET Admitting Unavailable SCHINNER, JT Primary Care Unavailable Daniel Ramirez MD Unavailable Jt Membreno E Primary Care Unavailable Roof FIELD REP, Jt Vasquez Referring Unavailable Roof FIELD REP, Jt Vasquez Attending Unavailable SchinJt lin Attending Unavailable Schinner, Jt E Primary Care Unavailable Schinner, Jt E Referring Unavailable SchinnerJt E Attending Unavailable Schinner, Jt E Primary Care Unavailable Schinner, Jt E Primary Care Unavailable Roof FIELD REP, Jt H Referring Unavailable Roof FIELD REP, Jt Vasquez Attending Unavailable SchinJt lin E Referring Unavailable SchinnerJt E Attending Unavailable SchinJt lin E Primary Care Unavailable Schindelia, Jt E Primary Care Unavailable Glenn Coreas Attending Unavailable Schindelia, Jt E Primary Care Unavailable SchJt vallecillo E Attending Unavailable Schindelia, Jt E Primary Care Unavailable Daniel Ramirez Attending Unavailable Daniel Ramirez Referring Unavailable Michael, Watson Referring Unavailable Michael, [place] Attending Unavailable Schruth ann, Jt E Primary Care Unavailable Schruth ann, Jt E Primary Care Unavailable Roof FIELD REP, Jt Vasquez Referring Unavailable Roof FIELD REP, Jt Vasquez Attending Unavailable Jt Membreno Attending Unavailable SchJt vallecillo Referring Unavailable SchJt vallecillo Primary Care Unavailable SchJt vallecillo Referring Unavailable JUNE STEINBERG DNP EP TECHNOLOGIST- RHEUMATOLOGIST Attending Unavailable Schruth ann, Jt E Primary Care Unavailable Schindelia, Jt E Primary Care Unavailable Roof FIELD REP, Jt Vasquez Referring Unavailable Roof FIELD REP, Jt Vasquez Attending Unavailable SchinJt lin E Primary Care Unavailable Michael, Watson Attending Unavailable Schindelia, Jt E Primary Care Unavailable Rick Esparza Attending Unavailable Schruth ann, Jt E Primary Care Unavailable Barak Miranda Attending Unavailable SchJt vallecillo E Primary Care Unavailable SchJt vallecillo E Referring Unavailable Michael, [place] Attending Unavailable Schindelia, Jt E Primary Care Unavailable Cameron Childers Attending Unavailable Andre Quesaad Referring Unavailable Schindelia, Jt E Primary Care Unavailable Daniel Ramirez Attending Unavailable Schruth ann, Jt E Primary Care Unavailable SchJt vallecillo Attending Unavailable Schindelia, Jt E Referring Unavailable Schinner, Jt E Primary Care Unavailable Mendez Gibbons Referring Unavailable Mendez Gibbons Attending Unavailable Schinner, Jt E Primary Care Unavailable Michael, Watson Attending Unavailable Schinner, Jt E Referring Unavailable Schinner, Jt E Primary Care Unavailable Estela Youngblood Attending Unavailable Schinner, Jt E Primary Care Unavailable Schinner, Jt E Referring Unavailable Andre Quesada Attending Unavailable Schinner, Jt E Primary Care Unavailable Schinner, Jt E Referring Unavailable Vicky De La Rosa Attending Unavailable Schinner, Jt E Primary Care Unavailable Michael, Watson Attending Unavailable Schinner, Jt E Primary Care Unavailable Schinner, Jt E Referring Unavailable Daniel Ramirez Attending Unavailable Schinner, Jt E Primary Care Unavailable Schinner, Jt E Referring Unavailable Gloria Cabrales NP Attending Unavailable Schinner, Jt E Primary Care Unavailable Schinner, Jt E Referring Unavailable Jt Bird NP Attending Unavailable Schinner, Jt E Primary Care Unavailable Cameron Childers Attending Unavailable Schinner, Jt E Referring Unavailable Schinner, Jt E Primary Care Unavailable Andre Quesada Attending Unavailable Schinner, Jt E Primary Care Unavailable Schinner, Jt E Referring Unavailable Cameron Childers Attending Unavailable Schinner, Jt E Referring Unavailable Lali Boyd Attending Unavailabl yousif SchinnerJt E Consulting Unavailable Schinner, Jt E Primary Care Unavailable Schinner, Jt E Primary Care Unavailable Daniel Ramirez Attending Unavailable Daniel Ramirez Consulting Unavailable Daniel Ramirez Referring Unavailable Schinner, Jt E Referring Unavailable Soheila Brown NP Attending Unavailable Schinner, Jt E Primary Care Unavailable Schinner, Jt E Primary Care Unavailable SchJt vallecillo E Referring Unavailable Daniel Ramirez Attending Unavailable Cristinaindelia, Jt E Primary Care Unavailable Jt Bird NP Referring Unavailable Jt Bird NP Attending Unavailable Schinner, Jt E Primary Care Unavailable Michael, [place] Attending Unavailable Schinner, Jt E Primary Care Unavailable Michael, [place] Attending Unavailable Schinner, Jt E Primary Care Unavailable SchinnerJt E Attending Unavailable Schinner, Jt E Referring Unavailable Michael, [place] Referring Unavailable Schinner, Jt E Consulting Unavailable Michael, [place] Attending Unavailable Schinner, Jt E Primary Care Unavailable Josh Lr Consulting Unavailable Allergies Allergy Classification Reported Allergen(s) Allergy Type Date of Onset Reaction(s) Facility (20 sources) apixaban; Translations: [APIXABAN] Drug Allergy 9 Other: See Comments [facility] (20 sources) Doxycycline; Translations: [DOXYCYCLINE] Drug Allergy 9 GI Upset [facility] (20 sources) Simvastatin; Translations: [SIMVASTATIN] Drug Allergy 9 Myalgia [facility] (1 source) Doxycycline Drug Allergy 5 [facility] (1 source) Simvastatin Drug Allergy 5 [facility] Medications Current Medications Medication Drug Class(es) Dates Sig (Normalized) Sig (Original) benazepril hydrochloride 20 mg oral tablet (20 sources) Angiotensin Converting Enzyme Inhibitor Start: 01-09-2021 take 1 tablet by mouth once daily Benazepril 20 mg tablet Active 20 mg PO DAILY January 09, 2021 12:00am Start: 06-30-2018 End: 07-04-2018 Benazepril 40 mg tablet Disc ontinued 20 mg PO DAILY June 30, 2018 11:37am July 04, 2018 10:44am Start: 06-08-2018 End: 06-30-2018 take 1 tablet by mouth once daily Benazepril 40 MG tablet Discontinued 40 mg PO DAILY June 08, 2018 12:00am June 30, 2018 11:40am Start: 06-08-2018 End: 07-04-2018 Comment on above: Take 20 mg by mouth once daily. cholecalciferol 0.05 mg oral capsule (20 sources) Vitamin D Start: 06-16-20 take 1 capsule by mouth once daily Cholecalciferol (Vitamin D3) 2,000 UNIT capsule Active 2000 U PO DAILY June 16, 2019 12:00am take 1 tablet by mouth once jeremy y cholecalciferol (VITAMIN D-3) 2,000 unit tablet Take 2,000 Units by mouth once daily. Active take 1 tablet by mouth in the mo rning cholecalciferol (Vitamin D-3) 50 MCG (2000 UT) tablet Take 2,000 Units by mouth in the morning. Active Comment on above: Take 2,000 Units by mouth once daily. 24 hr dilTIAZem hydrochloride 300 mg extended release oral capsule (20 sources) Calcium Channel Landen Start: 04-26-2024 take 1 capsule by mouth once daily Diltiazem Hcl 300 mg capsule,extended release 24hr Active 300 mg PO daily April 26, 2024 7:52am Start: 03-30-2024 End: 04-26-2024 take 1 capsule by mouth every twenty-four hours Diltiazem Hcl 300 mg capsule,extended release 24hr Discontinued 300 mg PO 1200 March 30, 2024 12:00am April 26, 2024 7:53am Start: 07-29-2019 End: 03-30-2024 take 1 capsule by mouth once daily Diltiazem Hcl 300 mg capsule,extended release 24hr Discontinued 300 mg PO DAILY April 30, 2023 1:02pm March 30, 2024 2:03pm Start: 07-22-2019 End: 07-29-2019 take 1 capsule by mouth once daily Diltiazem Hcl 240 mg capsule,extended release 24hr Discontinued 240 mg PO DAILY July 22, 2019 1:00am July 29, 2019 10:32am Start: 06-16-2019 End: 06-20-2019 take 1 tablet by mouth every twenty-four hours Diltiazem Hcl 120 MG tablet extended release 24 hr Discontinued 120 mg PO 1800 June 16, 2019 9:35am June 20, 2019 1:45pm Start: 06-30-2018 End: 07-22-2019 take 1 tablet by mouth once daily Diltiazem Hcl 120 mg tablet extended release 24 hr Discontinued 120 mg PO DAILY June 20, 2019 1:44pm July 22, 2019 10:49am take 1 tablet by thaddeus th once daily diltiazem (CARDIZEM) 120 mg tablet Take 120 mg by mouth once daily. Active Comment on above: Take 120 mg by mouth once daily. enteric contrast (will be provided with radiology test) (8 sources) Start: 03-14-2025 End: 03-15-2025 enteric contrast (will be provided with radiology test) MRI RECTUM WO/W. Administer, As Directed One Time Only, via Oral, Rectal, both Oral and Rectal, Enteric Tube, Stoma or Indwelling Catheter, Enteric Contrast as designated per enteric contrast guidelines 1 each 03/14/2025 03/15/2025 Active Start: 01-10-2025 End: 01-11-2025 enteric contrast (will be pr ovided with radiology test) For CT CHESTABD/PEL W IVCON Routine order Administer, As Directed One Time Only, via Oral, Rectal, both Oral and Rectal, Enteric Tube, Stoma or Indwelling Catheter, Enteric Contrast as designated per enteric contrast guidelines 1 each 01/10/2025 01/11/2025 Active Start: 09-13-2024 End: 09-14-2024 enteric contrast (will be pr ovided with radiology test) MRI RECTUM WO/W. Administer, As Directed One Time Only, via Oral, Rectal, both Oral and Rectal, Enteric Tube, Stoma or Indwelling Catheter, Enteric Contrast as designated per enteric contrast guidelines 1 Each 09/13/2024 09/14/2024 Active Start: 09-13-2024 End: 09-14-2024 enteric contrast (will be pr ovided with radiology test) For CT CHESTABD/PEL W IVCON Routine order Administer, As Directed One Time Only, via Oral, Rectal, both Oral and Rectal, Enteric Tube, Stoma or Indwelling Catheter, Enteric Contrast as designated per enteric contrast guidelines 1 Each 09/13/2024 09/14/2024 Active Start: 04-18-2024 End: 04-19-2024 enteric contrast (will be pr ovided with [...] mg oral tablet (20 sources) Loop Diuretic Start: take 1 tablet by mouth once daily Furosemide 40 mg tablet Active 40 mg PO DAILY June 16, 2019 12:00am Comment on above: Take 40 mg by mouth once daily. iv contrast (will be provided with radiology test) (8 sources) Start: End: iv contrast (will be provided with radiology [...] the MR contrast administration guidelines link. 1 each 03/14/2025 03/15/2025 Active Start: 01-10-2025 End: 01-11-2025 iv contrast (will be provide d with [...] the CT contrast administration guidelines link. 1 each 01/10/2025 01/11/2025 Active Start: 09-13-2024 End: 09-14-2024 iv contrast (will be provide d with [...] MR contrast administration guidelines link. 1 Each 09/13/2024 09/14/2024 Active Start: 09-13-2024 End: 09-14-2024 iv contrast (will be provide d with [...] CT contrast administration guidelines link. 1 Each 09/13/2024 09/14/2024 Active Start: 04-18-2024 End: 04-19-2024 iv contrast (will be provide d with [...] in the MR contrast administration guidelines link. 24 hr metFORMIN hydrochloride 500 mg extended release oral tablet (12 sources) Biguanide Start: 10-17-2024 metFORMIN ER (GLUCOPHAGE XR) 500 mg 24 hr tablet Indications: prevention of type 2 diabetes mellitus Take 1 tablet at dinner for 2 weeks and then increase to 2 tablets. 180 tablet 1 10/17/2024 Active take 1 tablet by thaddeus th once daily at breakfast metFORMIN (Glucophage) 500 MG tablet Zan e 500 mg by mouth daily (with breakfast). Active oxyCODONE hydrochloride 5 mg oral tablet (20 sources) Opioid Agonist Start: 11-12-2023 End: 11-04-2024 take 1 tablet by mouth every four hours as needed oxyCODONE IR (ROXICODONE) 5 mg immediate release tablet Take 5 mg by mouth every 4 hours as needed. 11/12/2023 Active Start: 11-12-2023 End: 02-14-2024 take 1 tablet by mouth every six hours as needed for pain Oxycodone 5 mg tablet Discontinued 5 mg PO EVERY 6 HOURS as needed for pain 14 7 November 12, 2023 February 14, 2024 6:14pm sertraline 50 mg oral tablet (20 sources) Serotonin Reuptake Inhibitor Start: 01-09-2021 take 1 tablet by mouth once daily sertraline (ZOLOFT) 50 mg tablet Take 50 mg by mouth once daily. 01/09/2021 Active tirzepatide, weight loss (ZEPBOUND) 2.5 mg/0.5 mL pen injector (15 sources) Start: 10-10-2024 inject 2.5 mg by subcutaneous injection every week tirzepatide, weight loss (ZEPBOUND) 2.5 mg/0.5 mL pen injector Indications: Obesity, unspecified class, unspecified obesity type, unspecified whether serious comorbidity present , CORRINA (obstructive sleep apnea) Inject 2.5 mg subcutaneously one time a week. 2 mL 10/10/2024 Active Start: 10-10-2024 End: 11-09-2024 inject 2.5 mg by subcutaneous injection every week tirzepatide, weight loss (ZEPBOUND) 2.5 mg/0.5 mL pen injector Indications: Obesity, unspecified class, unspecified obesity type, unspecified whether serious comorbidity present , CORRINA (obstructive sleep apnea) Inject 2.5 mg subcutaneously one time a week. 2 mL 10/10/2024 11/09/2024 Active Start: 10-10-2024 End: 10-10-2024 inject 2.5 mg by subcutaneous injection every week tirzepatide, weight loss (ZEPBOUND) 2.5 mg/0.5 mL pen injector Indications: Obesity, unspecified class, unspecified obesity type, unspecified whether serious comorbidity present , CORRINA (obstructive sleep apnea) Inject 2.5 mg subcutaneously one time a week. 2 mL 10/10/2024 10/10/2024 Discontinued tirzepatide, weight loss (ZEPBOUND) 5 mg/0.5 mL pen injector (15 sources) Start: 11-07-2024 tirzepatide, w eight loss (ZEPBOUND) 5 mg/0.5 mL pen injector Indications: Obesity, unspecified class, unspecified obesity type, unspecified whether serious comorbidity present , CORRINA (obstructive sleep apnea) Inject 5 mg subcutaneously one time a week. Patient should start on November 07, 2024. 2 mL 2 11/07/2024 Active Start: 11-07-2024 End: 10-10-2024 tirzepatide, weight loss (ZE PBOUND) 5 mg/0.5 mL pen injector Indications: Obesity, unspecified class, unspecified obesity type, unspecified whether serious comorbidity present , CORRINA (obstructive sleep apnea) Inject 5 mg subcutaneously one time a week. Patient should start on November 07, 2024. 2 mL 2 11/07/2024 10/10/2024 Discontinued Start: 11-07-2024 End: 02-05-2025 tirzepatide, weight loss (ZE PBOUND) 5 mg/0.5 mL pen injector Indications: Obesity, unspecified class, unspecified obesity type, unspecified whether serious comorbidity present , CORRINA (obstructive sleep apnea) Inject 5 mg subcutaneously one time a week. Patient should start on November 07, 2024. 2 mL 2 11/07/2024 02/05/2025 Active warfarin sodium 1 mg oral tablet (20 sources) Vitamin K Antagonist Start: 12-01-2024 take 1 tablet by mouth once daily Warfarin 1 mg tablet Active 1 mg PO DAILY December 01, 2024 4:14pm use as directed Please contact the information source for Protocol details. Start: 04-28-2024 End: 12-01-2024 take 2 tablets by mouth once daily Warfarin 1 mg tablet Discontinued 2 mg PO DAILY December 01, 2024 4:12pm December 01, 2024 4:16pm use as directed Please contact the information source for Protocol details. Start: 10-12-2023 End: 11-11-2023 Warfarin 1 mg tablet Discont inued 1 mg PO .COMPLEX October 12, 2023 1:00am November 11, 2023 6:10pm 1 mg orally as directed for dose changes; Please contact the information source for Protocol details. Start: 11-28-2022 End: 04-28-2024 take 1 tablet by mouth once daily Warfarin (Jantoven) 3 mg tablet Discontinued 3 mg PO DAILY January 19, 2024 1:08pm April 28, 2024 1:39pm Please contact the information source for Protocol details. Start: 05-12-2022 End: 11-27-2022 Warfarin 1 mg tablet Discont inued 0 mg .ROUTE .COMPLEX 180 May 12, 2022 1:31pm November 27, 2022 10:58am TAKE 2 TABS DAILY WITH 5 MG TO = 7MG OR DIRECTED FOR DOSE CHANGES Please contact the information source for Protocol details. Start: 01-21-2022 End: 05-12-2022 Warfarin 1 mg tablet Discont inued 8 mg PO SUMOTUTHFRSA January 21, 2022 8:42am May 12, 2022 1:31pm Please contact the information source for Protocol details. Start: 01-21-2022 End: 11-28-2022 Warfarin 5 mg tablet Discont inued 10 mg PO WE November 06, 2022 10:59pm November 28, 2022 4:14pm Please contact the information source for Protocol details. Start: 01-21-2022 End: 05-12-2022 Warfarin Discontinued 8 MG P O SUMOTUTHFRSA January 21, 2022 8:42am May 12, 2022 1:31pm Start: 01-21-2022 End: 11-28-2022 Warfarin Discontinued 10 MG PO WE 26 90 November 06, 2022 10:59pm November 28, 2022 4:14pm Start: 09-09-2021 End: 01-21-2022 take 3 tablets by mouth once daily Warfarin 1 mg tablet Discontinued 2 mg PO .COMPLEX 270 September 09, 2021 12:02pm January 21, 2022 8:42am Take 3 tabs daily with 5 mg tablet to = 8 mg for 5 days and take 2 tabs daily with 5mg tab =7mg x2 days, or as directed. Please contact the information source for Protocol details. Start: 02-02-2020 End: 09-09-2021 take 2 tablets by mouth once daily Warfarin 1 mg tablet Discontinued 2 mg PO .COMPLEX 180 May 06, 2021 11:23am September 09, 2021 12:07pm Take 2 tablets daily with 5 mg tablet to = 7 mg, or as directed for dose changes. Please contact the information source for Protocol details. Start: 09-19-2019 End: 02-02-2020 Warfarin 1 mg tablet Discont inued 7 mg PO .COMPLEX December 19, 2019 11:09am February 02, 2020 11:08am 7 mg PO TH,FR,SA,KOEHLER and as directed; Please contact the information source for Protocol details. Start: 09-19-2019 End: 11-28-2019 take 6 mg by mouth once Warfarin 5 MG tablet Discont inued 6 mg PO September 19, 2019 6:12am November 28, 2019 11:47am KOEHLER,MO,TU,WE Please contact the information source for Protocol details. Start: 09-19-2019 End: 02-02-2020 Warfarin Discontinued 7 MG P O .COMPLEX December 19, 2019 11:09am February 02, 2020 11:08am 7 mg PO TH,FR,SA,KOEHLER and as directed; Start: 09-19-2019 End: 11-28-2019 take 6 mg by mouth once Warfarin Discontinued 6 MG P O September 19, 2019 6:12am November 28, 2019 11:47am KOEHLER,MO,TU,WE Start: 08-26-2019 End: 09-19-2019 take 2 tablets by mouth once daily in the evening Warfarin (Coumadin) 1 mg tablet Discontinued 2 mg PO DAILY 60 August 26, 2019 1:00am September 19, 2019 6:12am take 2 tablets with a 5 mg tablet every evening Please contact the information source for Protocol details. Start: 08-26-2019 End: 11-27-2022 Start: 08-26-2019 End: 11-27-2022 Warfarin Discontinued 0 MG . ROUTE .COMPLEX 180 May 12, 2022 1:31pm November 27, 2022 10:58am TAKE 2 TABS DAILY WITH 5 MG TO = 7MG OR DIRECTED FOR DOSE CHANGES Start: 07-21-2019 End: 10-10-2024 take 1 tablet by mouth once daily Warfarin 5 mg tablet Discontinued 5 mg PO .COMPLEX 90 January 19, 2024 1:07pm February 14, 2024 6:15pm 5 mg orally daily or as directed for dose changes; Please contact the information source for Protocol details. Comment on above: Take 1 tablet by thaddeus th once daily. Completed/Discontinued Medications Medication Drug Class(es) Dates Sig (Normalized) Sig (Original) acetaminophen 325 mg oral tablet (5 sources) Start: 10-04-2024 End: 10-04-2024 take 1 tablet by mouth every four hours as needed for pain 650 mg, Oral, Every 4 hours PRN, mild pain (1-3), Fever > 100.5 F (38 C), Starting on Thu10/04/24 at 1416, Recovery & On Unit, Maximum dose of acetaminophen is 4000 mg from all sources in 24 hours. Start: 06-09-2024 take 1 tablet by thaddeus th every six hours as needed Acetaminophen (Tylenol Extra Strength) 500 mg tablet Active 500 mg PO EVERY 6 HOURS as needed June 09, 2024 12:00am acetaminophen 325 mg / HYDROcodone bitartrate 5 mg oral tablet (20 sources) Opioid Agonist Start: 09-19-2019 End: 09-22-2019 Hydrocodone-Acetaminophen 1 TABLET tablet Discontinued 1 {tbl} PO EVERY 6 HOURS NEEDED as needed for Pain 10 3 September 19, 2019 September 21, 2019 1:00am September 22, 2019 1:08am Start: 09-19-2019 End: 09-22-2019 Start: 09-19-2019 End: 09-22-2019 take 1 tablet by mouth every six hours as needed Hydrocodone-Acetaminophen Discontinued 1 TABLET PO EVERY 6 HOURS NEEDED 06 16September 19, 2019 September 22, 2019 1:08am acetaminophen 325 mg / oxyCODONE hydrochloride 5 mg oral tablet (16 sources) Opioid Agonist Start: 03-23-2024 End: 03-30-2024 Oxycodone-Acetaminophen 5-32 5 mg tablet Discontinued 1 - 2 {tbl} PO EVERY 6 HOURS NEEDED as needed for Pain 08 16March 23, 2024 March 30, 2024 2:01pm Start: 10-25-2023 End: 11-09-2023 Oxycodone-Acetaminophen (Per cocet) 5-325 mg tablet Discontinued 1 {tbl} PO EVERY 6 HOURS as needed for pain 06 16October 25, 2023 November 09, 2023 12:47pm Start: 10-25-2023 End: 11-09-2023 Albuterol Sulfate (20 sources) beta2-Adrenergic Agonist Start: 06-14-2018 End: 06-15-2018 take 1 puff(s) by inhalation every six hours Albuterol Sulfate (Proair Hfa) 90 mcg/actuation HFA aerosol inhaler Discontinued 2 PUFF INHALATION EVERY 6 HOURS June 14, 2018 5:21pm June 15, 2018 2:56pm Start: 06-14-2018 End: 06-15-2018 Albuterol Sulfate (Proair Hf a) 90 mcg/actuation HFA aerosol inhaler Discontinued 2 NMA INHALATION EVERY 6 HOURS as needed June 14, 2018 12:00am June 15, 2018 2:56pm Start: 06-14-2018 End: 06-15-2018 Start: 06-14-2018 End: 06-15-2018 take 1 puff(s) by inhalation every six hours Albuterol Sulfate (Proair Hfa) 90 mcg/actuation HFA aerosol inhaler Discontinued 2 PUFF INHALATION EVERY 6 HOURS June 14, 2018 12:00am June 15, 2018 2:56pm amoxicillin 875 mg / clavulanate 125 mg oral tablet (20 sources) Penicillin-class Antibacterial Start: 12-08-2021 End: 12-18-2021 Amoxicillin-Pot Clavulanate 875-125 mg tablet Discontinued 1 {tbl} PO TWICE A DAY 03 07December 08, 2021 12:00am December 17, 2021 12:00am December 18, 2021 12:03am Start: 12-08-2021 End: 12-18-2021 Start: 12-08-2021 End: 12-18-2021 take 1 tablet by mouth twice daily Amoxicillin-Pot Clavulanate Discontinued 1 TABLET PO TWICE A DAY 03 07December 08, 2021 12:00am December 18, 2021 12:03am apixaban 5 mg oral tablet (20 sources) Factor Xa Inhibitor Start: 06-09-2018 End: 06-23-2019 take 1 tablet by mouth twice daily Apixaban 5 mg tablet Discontinued 5 mg PO TWICE A DAY April 04, 2019 6:40pm June 23, 2019 11:02am aspirin 81 mg delayed release oral tablet (20 sources) Platelet Aggregation Inhibitor, Nonsteroidal Anti-inflammatory Drug Start: 02-10-2019 End: 01-15-2024 take 1 tablet by mouth once daily Aspirin (Enteric Coated Aspirin) 81 mg tablet,delayed release (DR/EC) Discontinued 81 mg PO DAILY January 11, 2023 8:05am January 15, 2024 1:02pm Start: 10-15-2018 End: 12-10-2018 take 1 tablet by mouth once daily Aspirin (Adult Aspirin Regimen) 81 mg tablet,delayed release (DR/EC) Discontinued 81 mg PO DAILY October 15, 2018 1:00am December 10, 2018 10:15am Comment on above: Take 81 mg by mouth once daily. atorvastatin 10 mg oral tablet (20 sources) HMG-CoA Reductase Inhibitor Start: End: take 1 tablet by mouth at bedtime Atorvastatin 10 mg tablet Discontinued 10 mg PO AT BEDTIME January 09, 2021 12:00am January 09, 2021 10:10am Start: 01-09-2021 End: 01-09-2021 Start: 06-08-2018 End: 08-06-2020 take 1 tablet by mouth at bedtime Atorvastatin 10 MG tablet Discontinued 10 mg PO AT BEDTIME June 08, 2018 12:00am August 06, 2020 3:24pm Start: 06-08-2018 End: 08-06-2020 take 10 mg by mouth once daily a torvastatin (LIPITOR) 40 mg tablet Indications: Personal history of colonic polyps Take 10 mg by mouth once daily. Active Comment on above: Take 10 mg by mouth once daily. azithromycin 250 mg oral tablet (20 sources) Macrolide Antimicrobial Start: End: take 2 tablets by mouth once daily, then take 1 tablet by mouth once daily Azithromycin (Zithromax Z-Lavelle) 250 mg tablet Discontinued 250 mg PO .COMPLEX 6 5 September 20, 2017 1:00am September 24, 2017 1:00am September 25, 2017 1:11am 2 250 mg tabs on first day then 1 250mg tab daily next 4 days cefadroxil 500 mg oral capsule (20 sources) Cephalosporin Antibacterial Start: End: take 1 capsule by mouth twice daily Cefadroxil 500 MG capsule Discontinued 500 mg PO TWICE A DAY July 04, 2018 12:00am August 26, 2018 12:16pm ciprofloxacin 500 mg oral tablet (18 sources) Quinolone Antimicrobial Start: End: take 1 tablet by mouth twice daily Ciprofloxacin Hcl (Cipro) 500 mg tablet Discontinued 500 mg PO TWICE A DAY July 17, 2023 12:00am August 03, 2023 9:11am clopidogrel 75 mg oral tablet (20 sources) P2Y12 Platelet Inhibitor Start: End: take 1 tablet by mouth once daily Clopidogrel (Plavix) 75 mg tablet Discontinued 75 mg PO .COMPLEX October 15, 2018 1:00am October 21, 2018 10:51am 75 mg PO 4 tablets on ThursdayOct 17 , then 1 tablet daily for heart cath on Oct 20; cyclobenzaprine hydrochloride 5 mg oral tablet (20 sources) Muscle Relaxant Start: End: take 1 tablet by mouth three times daily as needed Cyclobenzaprine 5 mg tablet Discontinued 5 mg PO THREE TIMES A DAY as needed October 25, 2021 1:00am August 13, 2022 11:57am Start: 09-22-2018 End: 10-15-2018 take 1 tablet by mouth three times daily as needed for muscle spasms Cyclobenzaprine 10 mg tablet Discontinued 10 mg PO THREE TIMES A DAY as needed for muscle spasm September 22, 2018 1:00am October 15, 2018 3:33pm dexamethasone 4 mg oral tablet (20 sources) Corticosteroid Start: 08-07-2021 End: 10-25-2021 take 1 tablet by mouth once daily Dexamethasone (Decadron) 4 mg tablet Discontinued 4 mg PO DAILY August 07, 2021 1:00am October 25, 2021 12:12pm diclofenac sodium 0.01 mg/mg topical gel (20 sources) Nonsteroidal Anti-inflammatory Drug Start: 08-18-2023 End: 03-30-2024 Diclofenac Sodium 1 % gel Discontinued 0 .ROUTE .COMPLEX August 31, 2023 1:58pm February 14, 2024 6:15pm 2 G TOPICALLY TWICE A DAY APPLY TO HANDS AND FEET TWICE DAILY Start: 07-29-2023 End: 08-03-2023 apply 2 g topically twice daily Diclofenac Sodium 1 % gel Discontinued 2 g TOPICAL TWICE A DAY July 29, 2023 3:42pm August 03, 2023 9:11am apply to hands and feet twice daily Start: 05-28-2023 End: 07-15-2023 apply 2 g topically twice daily Diclofenac Sodium 1 % gel Discontinued 2 g TOPICAL TWICE A DAY May 28, 2023 12:00am July 15, 2023 7:29pm apply to hands and feet twice daily Start: 05-28-2023 End: 07-15-2023 1 ml enoxaparin sodium 150 mg/ml prefilled syringe (20 sources) Low Molecular Weight Heparin Start: 12-03-2023 End: 01-13-2024 Enoxaparin (Lovenox) 150 mg/mL syringe Discontinued 150 mg SC Q12H December 16, 2023 3:54pm January 13, 2024 4:18pm Use as prescribed until INR is therapeutic. Start: 11-28-2019 End: 07-11-2020 Enoxaparin (Lovenox) 120 mg/ 0.8 mL syringe Discontinued 120 mg SC Q12H November 28, 2019 12:00am July 11, 2020 10:01am Start: 11-28-2019 End: 07-11-2020 Start: 07-21-2019 End: 10-10-2024 inject 140 mg by subcutaneous injection every twelve hours enoxaparin (LOVENOX) 150 mg/mL syrg Inject 0.9 mL subcutaneously q 12 HR. 28 Syringe 2 07/21/2019 10/10/2024 Discontinued (Course of therapy completed) Comment on above: Inject 0.9 mL subcut aneously q 12 HR. hydroCHLOROthiazide 25 mg / triamterene 37.5 mg oral capsule (20 sources) Potassium-sparing Diuretic, Thiazide Diuretic Start: 8 End: 9 Triamterene-Hydrochlo rothiazid 1 CAP capsule Discontinued 1 NMA PO DAILY 0 July 04, 2018 10:44am June 16, 2019 8:47am Start: 06-08-2018 End: 06-16-2019 Start: 06-08-2018 End: 06-16-2019 take 1 capsule by mouth once daily Triamterene-Hydrochlorothiazid Discontinued 1 CAP PO DAILY 0 July 04, 2018 10:44am June 16, 2019 8:47am hydrocortisone acetate 25 mg rectal suppository (20 sources) Corticosteroid Start: 06-29-2023 End: 07-15-2023 take 25 mg rectal route twice daily as needed Hydrocortisone Acetate 25 mg suppository Discontinued 25 mg RC TWICE A DAY as needed for itching July 09, 2023 12:00am July 15, 2023 7:29pm rectal insertion twice per day prn Hydrocortisone Acetate 25 mg suppository (3 sources) Start: 06-29-2023 End: 07-09-2023 take 25 mg rectal route twice daily as needed Hydrocortisone Acetate 25 mg suppository Discontinued 25 mg RC TWICE A DAY June 29, 2023 12:00am July 09, 2023 11:16am rectal insertion twice per day prn lidocaine 25 mg/ml / prilocaine 25 mg/ml topical cream (16 sources) Antiarrhythmic, Amide Local Anesthetic Start: 07-29-2023 End: 02-14-2024 Lidocaine-Prilocain e 2.5-2.5 % cream Discontinued 1 NMA TOPICAL ONCE as needed for port access July 29, 2023 1:00am February 14, 2024 6:14pm Start: 07-29-2023 methylPREDNISolone 4 mg oral tablet (20 sources) Corticosteroid Start: 07-22-2022 End: 07-28-2022 take 1 tablet by mouth once Methylprednisolone (Medrol (Lavelle)) 4 mg tablets,dose pack Discontinued 4 mg PO per package directions 04 03July 22, 2022 1:00am July 27, 2022 1:00am July 28, 2022 1:04am Start: 07-22-2022 End: 07-28-2022 Start: 09-20-2017 End: 09-25-2017 take 1 tablet by mouth once Methylprednisolone (Medrol (Lavelle)) 4 mg tablets,dose pack Discontinued 4 mg PO per package directions 21 September 20, 2017 1:00am September 24, 2017 1:00am September 25, 2017 1:11am Start: 09-20-2017 End: 09-25-2017 metoprolol tartrate 25 mg oral tablet (20 sources) beta-Adrenergic Landen Start: 04-27-2024 End: 10-04-2024 take 1 tablet by mouth twice daily Metoprolol Tartrate 25 mg tablet Discontinued 25 mg PO TWICE A DAY April 27, 2024 12:00am August 03, 2024 10:03am metroNIDAZOLE 500 mg oral tablet (18 sources) Nitroimidazole Antimicrobial Start: 07-17-2023 End: 08-03-2023 take 1 tablet by mouth three times daily Metronidazole 500 mg tablet Discontinued 500 mg PO THREE TIMES A DAY July 17, 2023 12:00am August 03, 2023 9:12am Nirmatrelvir-Ritona vir (17 sources) Start: 07-19-2023 End: 07-29-2023 Nirmatrelvir-Riton avir (Paxlovid) 300 mg (150 mg x 2)-100 mg tablets,dose pack Discontinued 0 PO .COMPLEX July 19, 2023 12:00am July 29, 2023 3:30pm take TWO 150 mg tablets of nirmatrelvir with ONE 100 mg tablet of ritonavir twice daily for 5 days Start: 07-19-2023 End: 07-29-2023 Start: 07-19-2023 omeprazole 40 mg delayed release oral capsule (20 sources) Proton Pump Inhibitor Start: 01-21-2022 End: 08-13-2022 take 1 capsule by mouth once daily Omeprazole 40 mg capsule,delayed release(DR/EC) Discontinued 40 mg PO DAILY January 21, 2022 12:00am August 13, 2022 11:56am Start: 06-16-2019 End: 10-25-2021 take 1 capsule by mouth twice daily Omeprazole 20 MG capsule Discontinued 20 mg PO TWICE A DAY June 16, 2019 12:00am July 11, 2020 10:02am Start: 06-16-2019 End: 10-25-2021 take 1 capsule by mouth every other day Omeprazole 20 mg capsule,delayed release(DR/EC) Discontinued 20 mg PO .qod July 11, 2020 10:00am October 25, 2021 12:15pm take 1 tablet by thaddeus th once daily before breakfast omeprazole OTC (PriLOSEC OTC) 20 MG EC tablet Take 20 mg by mouth every morning (before breakfast). Do not crush, chew, or split. Active Comment on above: Take 20 mg by mouth twice daily. ondansetron 4 mg disintegrating oral tablet (20 sources) Serotonin-3 Receptor Antagonist Start: End: take 1 tablet by mouth every six hours as needed for nausea Ondansetron 4 mg tablet,disintegratin g Discontinued 4 mg PO EVERY 6 HOURS NEEDED as needed for Nausea March 23, 2024 4:39pm April 27, 2024 2:01pm Start: 05-25-2023 End: 07-15-2023 take 1 tablet by mouth every twelve hours as needed for nausea and vomiting Ondansetron 8 mg tablet,disintegrating Discontinued 8 mg PO Q12H as needed for nausea and vomiting May 25, 2023 12:00am July 15, 2023 7:29pm Start: 11-30-2018 End: 12-01-2018 take 1 tablet by mouth every eight hours as needed for nausea Ondansetron Hcl 8 MG tablet Discontinued 8 mg PO EVERY 8 HOURS NEEDED as needed for Nausea November 30, 2018 12:00am December 01, 2018 3:05pm pantoprazole 40 mg delayed release oral tablet (20 sources) Proton Pump Inhibitor End: 10-10-2024 take 1 tablet by mouth once daily pantoprazole DR (PROTONIX) 40 mg tablet Indications: Personal history of colonic polyps Take 40 mg by mouth once daily. 10/10/2024 Discontinued (Changing Therapy/Dosage Form) Comment on above: Take 40 mg by mouth once daily. potassium chloride 20 meq extended release oral tablet (20 sources) Start: 08-24-2023 End: 09-15-2023 take 1 tablet by mouth twice daily Potassium Chloride 20 mEq tablet extended release Discontinued 20 meq PO TWICE A DAY August 24, 2023 2:46pm September 15, 2023 11:06am Start: 07-07-2023 End: 11-09-2023 take 1 tablet by mouth once Potassium Chloride 20 mEq tablet extended release Discontinued 20 meq PO ONCE September 15, 2023 11:06am November 09, 2023 12:47pm Start: 05-13-2019 End: 05-17-2019 take 1 capsule by mouth once daily Potassium Chloride 10 mEq capsule, extended release Discontinued 10 meq PO DAILY May 13, 2019 12:00am May 17, 2019 11:39am monobasic potassium phosphate 0.0408 meq/ml oral solution (13 sources) Start: 09-21-2023 End: 09-28-2023 Potassium Phosphate, Monobasic 500 mg tablet,soluble Discontinued 1000 mg PO DAILY 14 September 21, 2023 1:00am September 27, 2023 1:00am September 28, 2023 1:04am Potassium, Sodium Phosphates 280-160-250 mg powder in packet (3 sources) Start: 08-31-2023 End: 09-14-2023 Potassium, Sodium Phosphates 280-160-250 mg powder in packet Discontinued 1 NMA PO ONCE 14 August 31, 2023 1:00am September 13, 2023 1:00am September 14, 2023 1:04am predniSONE 20 mg oral tablet (20 sources) Start: 10-25-2023 End: 11-09-2023 take 2 tablets by mouth once daily Prednisone 20 mg tablet Discontinued 40 mg PO DAILY 14 October 25, 2023 1:00am November 09, 2023 12:47pm Start: 06-08-2018 End: 06-09-2018 Prednisone 20 MG tablet Disc ontinued 20 mg PO DAILY June 08, 2018 12:00am June 09, 2018 10:24am FINISHING LAST DOSE ON 06/08 prochlorperazine 10 mg oral tablet (20 sources) Phenothiazine Start: 05-28-2023 End: 07-15-2023 take 1 tablet by mouth every six hours as needed for nausea and vomiting Prochlorperazine Maleate 10 mg tablet Discontinued 10 mg PO EVERY 6 HOURS as needed for nausea and vomiting May 28, 2023 12:00am July 15, 2023 7:30pm rivaroxaban 20 mg oral tablet (20 sources) Factor Xa Inhibitor Start: 06-23-2019 End: 07-22-2019 take 1 tablet by mouth twice daily at mealtime Rivaroxaban (Xarelto) 15 mg tablet Discontinued 15 mg PO TWICE A DAY June 23, 2019 12:00am July 22, 2019 10:48am must administer with a meal/food for 21 days Start: 06-23-2019 End: 07-22-2019 take 1 tablet by mouth once daily at mealtime Rivaroxaban (Xarelto) 20 mg tablet Discontinued 20 mg PO DAILY June 24, 2019 10:42am July 22, 2019 10:50am must administer with a meal/food rosuvastatin calcium 5 mg oral tablet (20 sources) HMG-CoA Reductase Inhibitor Start: 01-09-2021 End: 01-22-2024 take 1 tablet by mouth every other day Rosuvastatin (Crestor) 5 mg tablet Discontinued 5 mg PO every other day December 25, 2022 8:12am January 22, 2024 4:33pm 5 ml sodium chloride 9 mg/ml injection (6 sources) Start: 10-04-2024 End: 10-04-2024 take 5-40 mL intravenously every twelve hours 5-40 mL, IntraVENous, Every 12 hours, First dose on Thu10/04/24 at 1430, Recovery & On Unit, For Line Patency: Peripheral IV = 5 mL; Midline or Central Line = 10 mL/lumen. If following IV push medication, administer flush at same rate as the IV push. Flush volume is determined by type of infusion therapy being given. For non-viscous solutions use: Peripheral IV = 5 mL Midline or Central Line = 10 mL/lumen For viscous solutions (i.e. blood components, parenteral nutrition, contrast media, or after obtaining blood sample) use: Peripheral IV = 10 mL Midline or Central Line = 20 mL/lumen Start: 10-04-2024 End: 10-04-2024 take 100 mL intravenously every hour as needed, then take 20 mL intravenously every hour as needed 5-250 mL/hr, IntraVENous, PRN, if patient receiving piggyback infusions and maintenance fluids are not ordered OR KVO fluids to protect IV site / prevent frequent line interruptions / long duration, Starting on Thu10/04/24 at 1416, Recovery & On Unit, For piggyback infusion, administer at same rate as piggyback for a total of 25 mL. Enter 25 mL into dose field and piggyback rate into rate field of order. If piggyback is infusing at a rate less than 100 mL/hr, enter 25 mL into dose field and 100 mL/hr into rate field of order. For KVO fluids, enter rate of 20 mL/hr or less into rate field of order. Start: 10-04-2024 End: 10-04-2024 5-40 mL, IntraVENous, PRN, l ine care, After every IV line use, Starting on Thu10/04/24 at 1416, Recovery & On Unit, For Line Patency: Peripheral IV = 5 mL; Midline or Central Line = 10 mL/lumen. If following IV push medication, administer flush at same rate as the IV push. Flush volume is determined by type of infusion therapy being given. For non-viscous solutions use: Peripheral IV = 5 mL Midline or Central Line = 10 mL/lumen For viscous solutions (i.e. blood components, parenteral nutrition, contrast media, or after obtaining blood sample) use: Peripheral IV = 10 mL Midline or Central Line = 20 mL/lumen (20 sources) Start: 08-31-2023 End: 09-14-2023 Start: 08-31-2023 Start: 06-29-2023 End: 07-09-2023 Problems Active Problems Problem Classification Problem Date Documented Date Episodic/Chronic Administrative/socia l admission (20 sources) Patient encounter status; Translations: [Counseling, unspecified] 05-28-2023 Episodic Anxiety disorders (20 sources) Anxiety; Translations: [Anxiety disorder, unspecified] 11-30-2018 Chronic Asthma (20 sources) Asthma; Translations: [Unspecified asthma, uncomplicated] Onset: 10-10-2024 11-01-2019 Chronic Cancer of rectum and anus (20 sources) Malignant tumor of rectum; Translations: [Malignant neoplasm of rectum] Onset: 04-21-2024 05-06-2023 Chronic Comment on above: Finished chemoradiat ion therapy and chemo on 10/25/2023.ctDNA was 1.87 on 05/25/2023.ctDNA on 08/24/2023 was 0. ctDNA on 11/18/2023 was 0.Comes for follow up.ctDNA on 05/20/2024 was negative.Now on observation as he had complete resolution of tumor. Finished chemoradiat ion therapy and chemo on 10/25/2023.On observationComes for follow up.ctDNA on 11/16/2024 was negative. CEA on 12/08/2024 was 2.2.No clinical evidence of disease. Cardiac dysrhythmias (20 sources) Atrial fibrillation; Translations: [Unspecified atrial fibrillation] Onset: 12-12-2023 Chronic Disorders of lipid metabolism (20 sources) Hyperlipidemia; Translations: [Hyperlipidemia, unspecified] Onset: 04-14-2023 Chronic E Codes: Fall (3 sources) Fall; Translations: [Unspecified fall, initial encounter] 02-14-2024 Episodic Esophageal disorders (20 sources) Gastroesophageal reflux disease; Translations: [Gastro-esophageal reflux disease without esophagitis] Onset: 04-13-2023 11-30-2018 Chronic Essential hypertension (20 sources) Benign essential hypertension; Translations: [Essential (primary) hypertension] Onset: 05-02-2024 Chronic Fever of unknown origin (17 sources) Fever with chills; Translations: [Fever, unspecified] 07-19-2023 Episodic Fracture of neck of femur (hip) (3 sources) Closed fracture of femur, greater trochanter; Translations: [Displaced fracture of greater trochanter of unspecified femur, initial encounter for closed fracture] 02-14-2024 Episodic Genitourinary symptoms and ill-defined conditions (1 source) Other symptoms and signs involving the genitourinary system; Translations: [Other symptoms and signs involving the genitourinary system] Onset: 12-20-2024 Episodic Maintenance chemotherapy; radiotherapy (20 sources) Patient encounter status; Translations: [Encounter for antineoplastic chemotherapy] 08-10-2023 Chronic Comment on above: Counts and chemistry reviewed and OK. Malaise and fatigue (20 sources) Fatigue; Translations: [Other fatigue] 10-05-2023 Episodic Nutritional deficiencies (20 sources) Iron deficiency; Translations: [Iron deficiency] Onset: 12-25-2023 12-15-2023 Episodic Comment on above: Labs 12/15/2023 review ed, Iron level 62 which is lower than normal. Osteoarthritis (20 sources) Arthritis; Translations: [Unspecified osteoarthritis, unspecified site] Onset: 10-10-2024 11-30-2018 Chronic Other acquired deformities (20 sources) Degenerative spondylolisthesis; Translations: [Spondylolisthesis, site unspecified] 07-22-2021 Episodic Other acquired deformities (10 sources) Spondylolisthesis, site unspecified; Translations: [Acquired spondylolisthesis] Episodic Other acquired deformities (20 sources) Unspecified acquired deformity of left thigh; Translations: [Acquired deformity of left hip] Episodic Other acquired deformities (13 sources) Spondylolisthesis, lumbar region; Translations: [Spondylolisthesis] Onset: 01-12-2025 Episodic Other acquired deformities (13 sources) Acquired deformity of left hip; Translations: [Unspecified acquired deformity of left thigh] 07-20-2023 Episodic Other aftercare (20 sources) 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; Translations: [Long-term (current) use 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s] Onset: 12-08-2024 04-13-2023 Episodic Other aftercare (12 sources) Follow-up status; Translations: [Encounter for follow-up examination after completed treatment for conditions other than malignant neoplasm] 11-02-2023 Episodic Other aftercare (9 sources) Encounter for follow-up examination after completed treatment for conditions other than malignant neoplasm; Translations: [Follow-up examination, following chemotherapy] 11-02-2023 Episodic Other aftercare (3 sources) Anticoagulant effect; Translations: [prison (current) use 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s] 03-31-2024 Episodic Other circulatory disease (20 sources) Bleeding; Translations: [Hemorrhage, not elsewhere classified] 07-12-2023 Episodic Other circulatory disease (9 sources) H/O: atrial fibrillation; Translations: [Personal history of other diseases of the circulatory system] 02-14-2024 Episodic Comment on above: ON COUMADIN Other circulatory disease (1 source) Personal history of transient ischemic attack (TIA), 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 deficits; Translations: [Personal history of transient ischemic attack (TIA), 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 deficits] Onset: 01-04-2025 Episodic Other congenital anomalies (14 sources) Xeroderma; 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, unspecified] Onset: 10-10-2024 10-10-2024 Chronic Other connective tissue disease (13 sources) Tendinitis of shoulder region; Translations: [Other enthesopathies, not elsewhere classified] 07-22-2022 Episodic Other connective tissue disease (13 sources) Other enthesopathies, not elsewhere classified; Translations: [Disorders of bursae and tendons in shoulder region, unspecified] Episodic Other connective tissue disease (6 sources) Swelling of right lower limb; Translations: [Other specified soft tissue disorders] 12-03-2023 Episodic Other diseases of kidney and ureters (8 sources) Hydroureter; Translations: [Hydroureter] 11-11-2023 Episodic Other injuries and conditions due to external causes (3 sources) Abrasion; Translations: [Other injury of unspecified body region, initial encounter] 2024 Episodic Other injuries and conditions due to external causes (3 sources) Closed injury of head; Translations: [Unspecified injury of head, initial encounter] 02-14-2024 Episodic Other lower respiratory disease (20 sources) Cough; Translations: [Acute cough] Episodic Other lower respiratory disease (3 sources) Cough; Translations: [Acute cough] 08-04-2022 Episodic Other nervous system disorders (3 sources) Unable to walk; Translations: [Difficulty in walking, not elsewhere classified] 02-14-2024 Chronic Other nutritional; endocrine; and metabolic disorders (20 sources) Obesity; Translations: [Obesity, unspecified] 11-15-2021 Chronic Other nutritional; endocrine; and metabolic disorders (20 sources) Obesity, unspecified; Translations: [Obesity, unspecified] Onset: 10-10-2024 Chronic Other nutritional; endocrine; and metabolic disorders (20 sources) Hypophosphatemia; Translations: [Other disorders of phosphorus metabolism] Onset: 09-21-2023 08-31-2023 Chronic Other nutritional; endocrine; and metabolic disorders (20 sources) Other disorders of phosphorus metabolism; Translations: [Disorders of phosphorus metabolism] 08-31-2023 Chronic Other nutritional; endocrine; and metabolic disorders (18 sources) Body mass index 40+ - severely obese; Translations: [Morbid (severe) obesity due to excess calories] Onset: 10-10-2024 10-10-2024 Chronic Other nutritional; endocrine; and metabolic disorders (20 sources) Weight gain; Translations: [Abnormal weight gain] 11-30-2018 Episodic Other nutritional; endocrine; and metabolic disorders (3 sources) Weight increased; Translations: [Abnormal weight gain] 10-15-2018 Episodic Other skin disorders (13 sources) Xeroderma; Translations: [Xerosis cutis] 09-15-2023 Episodic Other skin disorders (10 sources) Xerosis cutis; Translations: [Keratoderma, acquired] 09-15-2023 Episodic Other upper respiratory infections (20 sources) Sinusitis; Translations: [Chronic sinusitis, unspecified] Onset: 10-10-2024 Chronic Residual codes; unclassified (20 sources) Obstructive sleep apnea syndrome; Translations: [Obstructive sleep apnea (adult) (pediatric)] Onset: 09-15-2023 11-30-2018 Chronic Residual codes; unclassified (20 sources) Obstructive sleep apnea (adult) (pediatric); Translations: [Obstructive sleep apnea (adult)(pediatric)] Onset: 11-03-2024 Chronic Residual codes; unclassified (1 source) Swelling - edema - symptom; Translations: [Edema, unspecified] Episodic Residual codes; unclassified (20 sources) Edema; Translations: [Edema, unspecified] 11-30-2018 Episodic Spondylosis; intervertebral disc disorders; other back problems (20 sources) Degeneration of lumbar intervertebral disc; Translations: [Other intervertebral disc degeneration, lumbar region] Onset: 10-10-2024 Chronic Spondylosis; intervertebral disc disorders; other back problems (20 sources) Backache; Translations: [Dorsalgia, unspecified] Onset: 01-12-2025 11-30-2018 Episodic Comment on above: SPINAL STENOSIS/NERV E PAIN/BILAT LEG PAIN Thyroid disorders (20 sources) Thyroid nodule; Translations: [Nontoxic single thyroid nodule] Onset: 06-26-2023 05-07-2023 Chronic Unclassified (20 sources) Body mass index 40+ - severely obese; Translations: [Body mass index (BMI) greater than 40] 11-30-2018 Unclassified (1 source) Low back pain, unspecified; Translations: [Low back pain, unspecified] Onset: 01-12-2025 Viral infection (20 sources) Disease caused by 2019-nCoV; Translations: [COVID-19] 08-04-2022 Episodic Past or Other Problems Problem Classification Problem Date Documented Da te Episodic/Chronic Abdominal pain (20 sources) Flank pain; Translations: [Unspecified abdominal pain] Onset: 04-08-2024 09-20-2019 Episodic Anal and rectal conditions (20 sources) Rectal mass; Translations: [Other specified diseases of anus and rectum] Onset: 05-10-2023 05-05-2023 Episodic Calculus of urinary tract (20 sources) Kidney stone; Translations: [Calculus of kidney] Onset: 11-18-2023 08-04-2022 Episodic Cancer of rectum and anus (20 sources) History of malignant neoplasm of rectum; Translations: [Personal history of other malignant neoplasm of rectum, rectosigmoid junction, and anus] Onset: 07-24-2023 07-15-2023 Episodic Cardiac dysrhythmias (4 sources) Palpitations; Translations: [Palpitations] Onset: 05-06-2024 05-05-2024 Episodic Deficiency and other anemia (1 source) Anemia, unspecified; Translations: [Anemia, unspecified] Onset: 12-08-2024 Episodic Diabetes mellitus without complication (1 source) Impaired glucose tolerance (oral); Translations: [Impaired glucose tolerance (oral)] Onset: 12-13-2024 Episodic Fluid and electrolyte disorders (20 sources) Hypokalemia; Translations: [Hypokalemia] Onset: 09-21-2023 08-24-2023 Episodic Comment on above: K 3.4 TODAY. Gastrointestinal hemorrhage (20 sources) Rectal hemorrhage; Translations: [Hemorrhage of anus and rectum] Onset: 05-11-2023 04-13-2023 Episodic Noninfectious gastroenteritis (20 sources) Enteritis of small intestine; Translations: [Noninfective gastroenteritis and colitis, unspecified] Onset: 07-24-2023 07-15-2023 Episodic Nonspecific chest pain (20 sources) Chest pain; Translations: [Chest pain, unspecified] Onset: 10-10-2024 11-01-2019 Episodic Other acquired deformities (20 sources) Lumbar spondylolisthesis; Translations: [Spondylolisthesis, lumbar region] Onset: 12-23-2023 05-21-2022 Episodic Other aftercare (20 sources) Long-term current use 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; Translations: [prison (current) use 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s] Onset: 02-15-2024 09-19-2019 Episodic Other and unspecified benign neoplasm (20 sources) History of polyp of colon; Translations: [Personal history of colonic polyps] Onset: 06-30-2016 06-30-2016 Episodic Other circulatory disease (1 source) Personal history of other diseases of the circulatory system; Translations: [Personal history of other diseases of the circulatory system] Onset: 08-25-2024 Episodic Other connective tissue disease (20 sources) Tendonitis of right shoulder; Translations: [Other enthesopathies, not elsewhere classified] Onset: 10-10-2024 07-22-2022 Episodic Other diseases of kidney and ureters (20 sources) Hydroureter; Translations: [Hydroureter] Onset: 10-10-2024 11-11-2023 Episodic Other lower respiratory disease (20 sources) Dyspnea on exertion; Translations: [Dyspnea, unspecified] Onset: 10-10-2024 11-30-2018 Episodic Other screening for suspected conditions (not mental disorders or infectious disease) (20 sources) INR raised; Translations: [Abnormal coagulation profile] Onset: 05-27-2024 07-12-2023 Episodic Phlebitis; thrombophlebitis and thromboembolism (20 sources) History of thromboembolism of vein; Translations: [Personal history of other venous thrombosis and embolism] Onset: 10-10-2024 08-04-2022 Episodic Pulmonary heart disease (20 sources) Pulmonary embolism; Translations: [Other pulmonary embolism without acute cor pulmonale] Onset: 06-10-2018 06-16-2019 Episodic Comment on above: ON WARFARIN Residual codes; unclassified (20 sources) Edema of lower extremity; Translations: [Localized edema] Onset: 10-10-2024 06-17-2019 Episodic Residual codes; unclassified (20 sources) History of cardiac catheterization; Translations: [Other specified postprocedural states] Onset: 10-21-2018 11-01-2019 Episodic Comment on above: Normal coronaries, E F 75% per Dr. Jones (done @[facility] 10/21/2018) Skin and subcutaneous tissue infections (20 sources) Cellulitis; Translations: [Cellulitis, unspecified] Onset: 10-10-2024 05-13-2019 Episodic Sprains and strains (20 sources) Low back strain; Translations: [Strain of muscle, fascia and tendon of lower back, initial encounter] Onset: 06-13-2024 11-30-2018 Episodic Superficial injury; contusion (1 source) Abrasion, left lower leg, initial encounter; Translations: [Abrasion, left lower leg, initial encounter] Onset: 04-18-2024 Episodic Results Test Name Value Interpretation Reference Range Facility Prothrombin Time w/INRon INR Coag (PPP) [Relative time] 2.0 {INR} Normal [facility] Comment on above: Performed By: #### L 300.3900 ####[facility] [id number] [place], [address] PT Coag (PPP) [Time] 23.3 s High 11.7-14.9 [facility] Comment on above: Performed By: #### L 300.3900 ####[facility] [id number] [place], [address] Cardiology Visit Reporton Cardiology Visit Report Normal [facility] Surgery Visit Reporton 01-20 Surgery Visit Report Normal [facility] Office Visiton 01-16-2025 Follow-up visit [id number] JaniZay netta 1960 Date Provider Department Center 01/16/2025 [id number], MEET S [facility] [address] No family history on file Level of Service:81841 [place] OFFICE/OUTPATIENT ESTABLISHED MOD MDM 30 MIN Reason for Visit and Comments: Follow-up [[id number]] Normal [facility] Progress Noteon 01-16-2025 Progress Note [facility] Cardiology [facility] [place] [address] [facility] [address] Dept: [phone] Dept Loc: [phone] Visit type: Established : 1960 Chief Complaint: Chief Complaint Patient presents with Follow-up History of Present Illness: Migue Gunter is a 64 y.o. male known to Dr Lr with a history of CORRINA/CPAP, HTN, HPL, rectal cancer s/p chemo/radiation, hx of PE on warfarin, paroxysmal atrial fibrillation s/p PVI+PWI 09/2024 presents for follow-up. Since ablation, he thinks that he had a couple short episodes of atrial fibrillation. He has not had any sustained episodes. He has no issues with bleeding. No other acute complaints. Past Medical History: Past Medical History: Diagnosis Date Atrial flutter (HCC) DVT (deep venous thrombosis) (HCC) 2018 HTN (hypertension) Hyperlipemia Obese CORRINA on CPAP PAF (paroxysmal atrial fibrillation) (HCC) Pulmonary emboli (HCC) Past Surgical History Past Surgical History: Procedure Laterality Date APPENDECTOMY CARDIAC ELECTROPHYSIOLOGY PROCEDURE N/A 10/04/2024 Performed by Aylin Henry MD at [facility] Cardiac Cath/EP Lab [employer] PRO[employer] REPORT (HISTORICAL) 2019 HERNIA REPAIR Left HIP ARTHROPLASTY Family History No family history on file. Social History Allergies: No Known Allergies Medications: Current Outpatient Medications: Aspirin Low Dose 81 MG EC tablet, Take 81 mg by mouth daily., Disp: , Rfl: benazepril (Lotensin) 20 MG tablet, Take 20 mg by mouth daily., Disp: , Rfl: cholecalciferol (Vitamin D-3) 50 MCG (2000 UT) tablet, Take 2,000 Units by mouth in the morning., Disp: , Rfl: dilTIAZem CD (Cardizem CD) 300 MG 24 hr capsule, Take 300 mg by mouth daily., Disp: , Rfl: furosemide (Lasix) 40 MG tablet, Take 40 mg by mouth daily., Disp: , Rfl: omeprazole OTC (PriLOSEC OTC) 20 MG EC tablet, Take 20 mg by mouth every morning (before breakfast). Do not crush, chew, or split., Disp: , Rfl: sertraline (Zoloft) 50 MG tablet, Take by mouth daily., Disp: , Rfl: warfarin (Coumadin) 3 MG tablet, Take by mouth. Take as directed per After Visit Summary., Disp: , Rfl: metFORMIN (Glucophage) 500 MG tablet, Take 500 mg by mouth daily (with breakfast). (Patient not taking: Reported on 01/16/2025), Disp: , Rfl: Review of Systems: Review of Systems Constitutional: Negative. HENT: Negative. Eyes: Negative. Respiratory: Positive for apnea. Cardiovascular: Positive for palpitations. Gastrointestinal: Negative. Endocrine: Negative. Genitourinary: Negative. Musculoskeletal: Negative. Skin: Negative. Allergic/Immunologic: Negative. Neurological: Negative. Hematological: Negative. Psychiatric/Behavioral: Negative. Physical Examination: Vitals: Vitals: 01/16/25 1047 BP: 136/74 BP Location: Right arm Patient Position: Sitting BP Cuff Size: Large adult Pulse: 66 SpO2: 95% Weight: 298 lb (135 kg) Height: 5' 11 (1.803 m) Body mass index is 41.56 kg/m?. Physical Exam Constitutional: Appearance: Normal appearance. HENT: Head: Normocephalic and atraumatic. Mouth/Throat: Mouth: Mucous membranes are moist. Eyes: Extraocular Movements: Extraocular movements intact. Cardiovascular: Rate and Rhythm: Normal rate and regular rhythm. Pulses: Normal pulses. Heart sounds: Normal heart sounds. Pulmonary: Effort: Pulmonary effort is normal. Breath sounds: Normal breath sounds. Abdominal: Palpations: Abdomen is soft. Musculoskeletal: General: Normal range of motion. Cervical back: Normal range of motion and neck supple. Skin: General: Skin is warm and dry. Neurological: General: No focal deficit present. Mental Status: He is alert and oriented to person, place, and time. Psychiatric: Mood and Affect: Mood normal. Behavior: Behavior normal. Thought Content: Thought content normal. Judgment: Judgment normal. Laboratory Tests: Lab Results Component Value Date WBC 5.5 09/20/2024 HGB 13.2 09/20/2024 HCT 41.5 09/20/2024 MCV 93.5 09/20/2024 PLT 261 09/20/2024 Lab Results Component Value Date GLUCOSE 106 10/04/2024 CALCIUM 8.9 10/04/2024 NA 137 10/04/2024 K 5.1 10/04/2024 CO2 17 (L) 10/04/2024 CL 110 (H) 10/04/2024 BUN 25 (H) 10/04/2024 CREATININE 0.95 10/04/2024 @LASTCMP@ No results found for: CHLPL, CHOL No results found for: TRIG No results found for: HDL No results found for: LDLCALC No results found for: BNP Assessment and Plan: 1. Primary hypertension 2. Paroxysmal atrial fibrillation (HCC) Paroxysmal atrial fibrillation - No significant episodes of atrial fibrillation since his PVI+PWI 09/2024 - Anticoagulated with Coumadin. INRs followed in [place]. Hypertension - Blood pressure is well-controlled current regimen - Continue current antihypertensive regimen Mr. Gunter will follow-up with Dr. Lr in 6 months. Normal [facility] Creatinine + eGFR Pnl SerPlB ldon 01-12-2025 Creatinine and Glomerular filtration rate.predicted panel (S/P/Bld) 73 mL/min/1.73m??? Normal >=60 [facility] Comment on above: Order Comment: Percy otoole Type: BLOOD SPECIMENOrdering Facility: [facility] Address: [address] [place] [address] [place] [address] Result Comment: Laureen mated Glomerular Filtration Rate [...] accurately reflect actual GFR. Performed By: #### 4 5066-8 ####[facility] [id number] [place] [address] [place] Creatinine and Glomerular fi ltration rate.predicted panel (S/P/Bld)on 01-12-2025 Creatinine [Mass/Vol] 1.11 mg/dL Normal 0.73-1.22 [facility] Comment on above: Order Comment: Percy otoole Type: BLOOD SPECIMENOrdering Facility: [facility] Address: [address] [place] [address] Performed By: #### 4 5066-8 ####[facility] [id number] [place] [address] [place] L/S Spine Min 4 Viewson 05 L/S Spine Min 4 Views Normal [facility] Orthopedic Visit Reporton Orthopedic Visit Report Normal [facility] CNOVon 01-10-2025 CNOV Office Visit ([facility] ) -- MIGUE GUNTER ([id number]) 1960 M Date Time Provider Department 01/10/25 10:00 AM ERNESTO AUGIAR [facility] During your visit today, we recorded the following information about you: Ernesto Aguiar MD 01/10/2025 10:16 AM Signed [facility] Follow-up January 02, 2025 Chief complaint: rectal malignancy , WW follow up HPI: Migue Gunter is a 64-year-old year old male with a history of [...] endoscopic response. His case was presented to [facility] and recommended to undergo watch and wait protocol. He had MRI and CT scans Oct 2024 - all stable, no evidence of metastatic disease or recurrence. He was presented to MDT in Oct 2024 as well and review of MRI advised continue with surveillance (presented due to noted left sacral lesion, verified continuation of WANDW plan). Plan: CEA today, flex sig today Scans due again in April 2025 Colonoscopy was done in April 2024, but technically per protocol he needs a full colonoscopy one year after completing treatment which would have been Oct 2024 - so he is overdue for this. 10.15.23 CEA was 2.[address] C/A/P IMPRESSION: 1 No abdominopelvic metastatic disease. 2. Since 04/14/2024, interval progressive healing of previously noted left proximal femur greater trochanter fracture. 3. Please refer to concurrently acquired and separately reported chest CT for findings related to the thorax. IMPRESSION: Stable CT examination with no compelling evidence of intrathoracic metastatic disease. 10.17.24 MRI rectum IMPRESSION: Stable size of the low rectal tumor with mucin. No pelvic lymphadenopathy. Decreased size and conspicuity of the indeterminate left sacral lesion. Since 04/21/2024, post treatment primary tumor assessment: Complete/near complete response. mrTRG: Grade 2 - Good response Suspicious Mesorectal lymph nodes: No. Suspicious Extramesorectal lymph nodes: No. 12 flex sig Findings: The perianal and digital rectal examinations were normal. Pertinent negatives include no palpable rectal lesions. The entire examined colon appeared normal. Impression: - The entire examined colon is normal. - No specimens collected. 05.20.2024 MDT Discussion: recent MRI shows complete MRI response with no sign for a cancerous mass. Clinical Trial Candidate: No 05.20.2024 mDT Tumor board discussion and recommendation: Continue active surveillance (Watch AND Wait) with following schedule: Exam, MELINDA, CEA AND Flex Sig: Years 0-2 every 3 months; Years 3-4 every 6 months; Years 5-10 yearly MRI Pelvis: Years 0-4 every 6 months; Years 5- yearly CT C/A/P with Contrast: Years 0-2 every 6 months; Years 3-10 yearly Colonoscopy: 1 year after treatment then every 3 years Discussion: recent MRI shows complete MRI response with no sign for a cancerous mass. 05.17.2024 flex sig Findings: The perianal and digital rectal examinations were normal aside from hemorrhoids The entire examined colon appeared normal. No evidence of recurrence Impression: - The entire examined colon is normal. - No specimens collected. 04/21/2024 MRI rectum Addendum to update the impression of the [...] metastatic disease in the abdomen or pelvis. 05/03/2024 colonoscopy Pathology 03.01.2024 flex sig Findings: The perianal and digital rectal examinations were normal. Post-treatment scar and mild radiation change No evidence of disease recurrence Impression: - Post-treatment scar and mild radiation change No evidence of disease recurrence - No specimens collected. 11.18.2023 MDT RECS Tumor board discussion and recommendation: Active (more content not included)... Normal [facility] Flexible Sigmoidoscopyon Flexible sigmoidoscopy [facility] Cancer Gastrointestinal Endoscopy Patient Name: Migue Gunter Procedure Date: 01/10/2025 7:38 AM Account Number: Date of : 1960 Admit Type: Ambulatory Age: 64 Room: Room 209 ([id number]) Gender: Male Note Status: Finalized Attending MD: Ernesto Aguiar MD, [id number] Procedure: Flexible Sigmoidoscopy Indications: Personal history of malignant rectal neoplasm Providers: Ernesto Aguiar MD Patient Profile: This is a 64 year old male. Referring Physician: Medicines: None Complications: No immediate complications. Requesting Provider: Procedure: Pre-Anesthesia Assessment: - ASA Grade Assessment: II - A patient with mild systemic disease. - After reviewing the risks and benefits, the [...] perianal and digital rectal examinations were normal. healing scar in the 1st rectal valve, otherwise normal mucusa. Impression: - The entire examined colon is normal. - No specimens collected. Recommendation: - Use fiber, for example Citrucel, Fibercon, Konsyl or Metamucil. Attending Participation: I personally performed the entire procedure. Scope In: Scope Out: MD Ernesto Mckeon MD 01/10/2025 9:51:47 AM This report has been signed electronically by Ernesto Aguiar MD Number of Addenda: 0 Note Initiated On: 01/10/2025 7:38 AM Estimated Blood Loss: Estimated blood loss: none. Normal [facility] CARCINOEMBRYONIC ANTIGENon 0 01-03-2025 Carcinoembryonic Ag [Mass/Vol] 1.5 ng/mL NINF - 2.9 ng/mL [facility] Comment on above: Carcinoembryonic ant igen test is used as an aid in monitoring response to treatment or recurrence in patients with established colorectal, breast, lung, prostatic, pancreatic, and ovarian carcinomas. Clinical correlation is required. The Carcinoembryonic antigen test was performed using the [employer] DXI paramagnetic particle chemiluminescent immunoassay method. Results obtained with different assay methods or kits cannot be used interchangeably. Carcinoembryonic Ag [Mass/Vo l]on 01-03-2025 Interpretation and review of laboratory results Normal [facility] CEA SerPl-mCncon 01-02-2025 Carcinoembryonic Ag [Mass/Vol] 1.5 ng/mL Normal <=2.9 [facility] Comment on above: Order Comment: Speci men Type: BLOOD SPECIMENOrdering Facility: [facility] Address: [address] [place] [address] Result Comment: Carc inoembryonic antigen test is used as an aid in monitoring response to treatment or recurrence in patients with established colorectal, breast, lung, prostatic, pancreatic, and ovarian carcinomas. Clinical correlation is required. The Carcinoembryonic antigen test was performed using the [employer] DXI paramagnetic particle chemiluminescent immunoassay method. Results obtained with different assay methods or kits cannot be used interchangeably. Performed By: #### 2 039-6 ####[facility] LABCLIA [id number] [place] [address] [place] Prothrombin Time w/INRon INR Coag (PPP) [Relative time] 2.2 {INR} Normal [facility] Comment on above: Performed By: #### L 300.3900 ####[facility] [address] [place], [address] PT Coag (PPP) [Time] 25.2 s High 11.7-14.9 [facility] Comment on above: Performed By: #### L 300.3900 ####[facility] [address] [place], [address] Oncology Visit Reporton Oncology Visit Report Normal [facility] Bilirubin Test strip Ql (U)O rdered By: Jt Membreno on 12-14-2024 Bilirubin Ql (U) Negative Negative [facility] Epithelial cells.squamous LM Ql (Urine sed)Ordered By: Jt Membreno on 12-14-2024 Epithelial cells.squamous LM.HPF (Urine sed) [#/Area] 0 /[HPF] 0-5 [facility] Glucose Ql (U)Ordered By: Luzmaria Membreno on 12-14-2024 Urine Glucose (UA) Normal mg/dl Normal [facility] Ketones Test strip Ql (U)Ord ered By: Jt Membreno on 12-14-2024 Ketones Ql (U) Negative Negative [facility] Microscopic analysis of urin e for red blood cells (RBC)Ordered By: Jt Membreno on 12-14-2024 Urine RBC 0 SEEN /hpf 0-5 [facility] Mucus LM Ql (Urine sed)Order ed By: Jt Membreno on 12-14-2024 Mucus Ql (Urine sed) 0 SEEN /hpf [facility] Nitrite Test strip Ql (U)Ord ered By: Jt Membreno on 12-14-2024 Nitrite Ql (U) Negative Negative [facility] Protein Test strip Ql (U)Ord ered By: Jt Membreno on 12-14-2024 Protein Ql (U) Negative Negative [facility] Urinalysis, Completeon 12-14 EPI,SQUAMOUS 0-5 SEEN Normal 0-5 [facility] Comment on above: Order Comment: Urine , Random Performed By: #### L 400.0001 ####[facility] [address] [place], [place], [address] WBC 5-10 SEEN Normal 0-5 [facility] Comment on above: Order Comment: Urine , Random Performed By: #### L 400.0001 ####[facility] [address] [place], [place], [address] BACTERIA 0 SEEN Normal None Seen [facility] Comment on above: Order Comment: Urine , Random Performed By: #### L 400.0001 ####[facility] [address] [place], [address] Mucus Ql (Urine sed) 0 SEEN Normal [facility] Comment on above: Order Comment: Urine , Random Performed By: #### L 400.0001 ####[facility] [address] [place], [address] RBC 0 SEEN Normal 0-5 [facility] Comment on above: Order Comment: Urine , Random Performed By: #### L 400.0001 ####[facility] [address] [place], [place], [address] Urine blood detectionOrdered By: Jt Membreno on 12-14-2024 Urine Occult Blood Negative Negative [facility] Urine clarityOrdered By: Mark Membreno on 12-14-2024 Clarity (U) Clear Clear [facility] Urine color determinationOrd ered By: Jt Membreno on 12-14-2024 Color (U) Yellow Yellow [facility] Urine leukocyte esterase det ection by dipstickOrdered By: Jt Membreno on 12-14-2024 Leukocyte esterase Test strip Ql (U) 100 /ul High Negative [facility] Urine pHOrdered By: Jt vallecillo on 12-14-2024 pH (U) 5.0 [pH] 5.0 - 8.0 [facility] Urine sediment bacteria coun t by microscopy (number/high power field)Ordered By: Jt Membreno on 12-14-2024 Bacteria LM.HPF (Urine sed) [#/Area] 0 /[HPF] None Seen [facility] Urine specific gravity measu rementOrdered By: Jt Membreno on 12-14-2024 Specific gravity (U) [Rel density] 1.010 1.002-1.030 [facility] Urobilinogen Ql (U)Ordered B y: Jt Membreno on 12-14-2024 Urine Urobilinogen Normal mg/dl Normal [facility] White blood cell countOrdere d By: Jt Membreno on 12-14-2024 Urine WBC 5-10 SEEN /hpf 0-5 [facility] Carcinoembryonic Antigenon 0 3-29-2025 CEA 2.2 ng/mL Normal 0.0-4.7 [facility] Comment on above: Result Comment: Nons mokers <3.9 Smokers <5.6[employer] Electrochemiluminescence Immunoassay(ECLIA)Values obtained with different assay methods or kitscannot be used interchangeably. Results cannot beinterpreted as absolute evidence of the presence orabsence of malignant disease.Performed at: [facility] [address] [id number] Director: Ed Ramirez PhD, Phone: [phone] Performed By: #### L 504.2610, L503.6030, L500.4050, L100.0100, L3100.2300, L503.6550 ####[facility] [address] [place], [place], [address] Absolute neutrophil countOrd ered By: Jt Membreno on 12-09-2024 Neutrophils (Bld) [#/Vol] 3.7 10*3/uL 2.0-7.7 [facility] Anion gap in Serum or Plasma Ordered By: Jt Membreno on 12-09-2024 Anion gap [Moles/Vol] 14 mmol/L 5-15 [facility] BUN/creatinine ratioOrdered By: Jt Membreno on 12-09-2024 Urea nitrogen/Creatinine [Mass ratio] 23.1 mg/mg High 10-20 [facility] Basophil percentageOrdered B y: Jt Membreno on 12-09-2024 Basophils/100 WBC (Bld) 0.8 % 0-1 [facility] Bilirubin Test strip Ql (U)O rdered By: Jt Membreno on 12-09-2024 Bilirubin Ql (U) Negative Negative [facility] Bilirubin, totalOrdered By: Jt Membreno on 12-09-2024 Bilirubin [Mass/Vol] 0.38 mg/dL 0.00-1.30 [facility] CBC W/Diff, Automatedon 11-13 Absolute Lymph 0.51 X10 3/uL Low 0.83-4.51 [facility] Comment on above: Order Comment: Order Date: 12/09/24Order Info: [id number] - CBCD Performed By: #### L 100.0100, L501.5200, L500.4050, L501.9985, L500.4100 ####[facility] [address] [place], [address] Absolute Neut 3.7 X10 3/uL Normal 2.0-7.7 [facility] Comment on above: Order Comment: Order Date: 12/09/24Order Info: [id number] - CBCD Performed By: #### L 100.0100, L501.5200, L500.4050, L501.9985, L500.4100 ####[facility] [address] [place], [address] Basophils/100 WBC (Bld) 0.8 % Normal 0-1 [facility] Comment on above: Order Comment: Order Date: 12/09/24Order Info: [id number] - CBCD Performed By: #### L 100.0100, L501.5200, L500.4050, L501.9985, L500.4100 ####[facility] [address] [place], [address] Eosinophils/100 WBC (Bld) 3.6 % Normal 0-5 [facility] Comment on above: Order Comment: Order Date: 12/09/24Order Info: [id number] - CBCD Performed By: #### L 100.0100, L501.5200, L500.4050, L501.9985, L500.4100 ####[facility] [address] [place], [address] Erythrocyte distribution width (RBC) [Ratio] 13.8 % Normal 11.6-14.6 [facility] Comment on above: Order Comment: Order Date: 12/09/24Order Info: [id number] - CBCD Performed By: #### L 100.0100, L501.5200, L500.4050, L501.9985, L500.4100 ####[facility] [address] [place], [address] Hematocrit (Bld) [Volume fraction] 41.0 % Normal 40-54 [facility] Comment on above: Order Comment: Order Date: 12/09/24Order Info: [id number] - CBCD Performed By: #### L 100.0100, L501.5200, L500.4050, L501.9985, L500.4100 ####[facility] [address] [place], [address] Hemoglobin (Bld) [Mass/Vol] 13.6 g/dL Normal 13.0-16.5 [facility] Comment on above: Order Comment: Order Date: 12/09/24Order Info: [id number] - CBCD Performed By: #### L 100.0100, L501.5200, L500.4050, L501.9985, L500.4100 ####[facility] [address] [place], [address] IG% 0.200 Normal 0.0-0.9 [facility] Comment on above: Order Comment: Order Date: 12/09/24Order Info: [id number] - CBCD Result Comment: IG% - Immature Granulocytes (promyelocytes, myelocytes andmetamyelocytes) > 1% indicates that a LEFT SHIFT is Present. Performed By: #### L 100.0100, L501.5200, L500.4050, L501.9985, L500.4100 ####[facility] [address] [place], [address] Lymphocytes/100 WBC (Bld) 10.3 % Low 19-41 [facility] Comment on above: Order Comment: Order Date: 12/09/24Order Info: [id number] - CBCD Performed By: #### L 100.0100, L501.5200, L500.4050, L501.9985, L500.4100 ####[facility] [address] [place], [address] MCH (RBC) [Entitic mass] 30.8 pg Normal 27.0-32.0 [facility] Comment on above: Order Comment: Order Date: 12/09/24Order Info: [id number] - CBCD Performed By: #### L 100.0100, L501.5200, L500.4050, L501.9985, L500.4100 ####[facility] [address] [place], [address] MCHC (RBC) [Mass/Vol] 33.2 g/dL Normal 32-36 [facility] Comment on above: Order Comment: Order Date: 12/09/24Order Info: [id number] - CBCD Performed By: #### L 100.0100, L501.5200, L500.4050, L501.9985, L500.4100 ####[facility] [address] [place], [address] MCV (RBC) [Entitic vol] 92.8 fL Normal 80-94 [facility] Comment on above: Order Comment: Order Date: 12/09/24Order Info: [id number] - CBCD Performed By: #### L 100.0100, L501.5200, L500.4050, L501.9985, L500.4100 ####[facility] [address] [place], [address] Monocytes/100 WBC (Bld) 10.3 % High 0-10 [facility] Comment on above: Order Comment: Order Date: 12/09/24Order Info: [id number] - CBCD Performed By: #### L 100.0100, L501.5200, L500.4050, L501.9985, L500.4100 ####[facility] [address] [place], [address] Neutrophils/100 WBC (Bld) 74.8 % High 47-70 [facility] Comment on above: Order Comment: Order Date: 12/09/24Order Info: [id number] - CBCD Performed By: #### L 100.0100, L501.5200, L500.4050, L501.9985, L500.4100 ####[facility] [address] [place], [address] Nucleated RBC (Bld) [#/Vol] 0 10*3/uL Normal 0-5 [facility] Comment on above: Order Comment: Order Date: 12/09/24Order Info: [id number]- - CBCD Performed By: #### L 100.0100, L501.5200, L500.4050, L501.9985, L500.4100 ####[facility] [address] [place], [address] Platelet mean volume (Bld) [Entitic vol] 9.1 fL Normal 6.2-12.0 [facility] Comment on above: Order Comment: Order Date: 12/09/24Order Info: [id number]- - CBCD Performed By: #### L 100.0100, L501.5200, L500.4050, L501.9985, L500.4100 ####[facility] [address] [place], [address] Platelets (Bld) [#/Vol] 266 10*3/uL Normal 150-450 [facility] Comment on above: Order Comment: Order Date: 12/09/24Order Info: [id number]- - CBCD Performed By: #### L 100.0100, L501.5200, L500.4050, L501.9985, L500.4100 ####[facility] [address] [place], [address] RBC (Bld) [#/Vol] 4.42 10*6/uL Low 4.6-6.2 [facility] Comment on above: Order Comment: Order Date: 12/09/24Order Info: [id number] - CBCD Performed By: #### L 100.0100, L501.5200, L500.4050, L501.9985, L500.4100 ####[facility] [address] [place], [address] RDW SD 47.0 fl High 35.1-43.9 [facility] Comment on above: Order Comment: Order Date: 12/09/24Order Info: [id number] - CBCD Performed By: #### L 100.0100, L501.5200, L500.4050, L501.9985, L500.4100 ####[facility] [address] [place], [address] WBC (Bld) [#/Vol] 5.0 10*3/uL Normal 4.4-11.0 [facility] Comment on above: Order Comment: Order Date: 12/09/24Order Info: [id number] - CBCD Performed By: #### L 100.0100, L501.5200, L500.4050, L501.9985, L500.4100 ####[facility] [address] [place], [place], [address] Calculated very low density lipoprotein (VLDL) cholesterol measurementOrdered By: Jt Membreno on 12-09-2024 VLDL Cholesterol 22 mg/dL 5-40 [facility] Carbon dioxide, total [Moles /volume] in Central venous bloodOrdered By: Jt Membreno on 12-09-2024 CO2 [Moles/Vol] 18.8 mmol/L Low 21.0-32.0 [facility] Chloride assayOrdered By: Luzmaria Membreno on 12-09-2024 Chloride [Moles/Vol] 105 mmol/L 98-108 [facility] Comprehensive Metabolic Prof ilon 12-09-2024 Albumin [Mass/Vol] 4.1 g/dL Normal 3.4-4.8 [facility] Comment on above: Order Comment: Order Date: 12/09/24Order Info: [id number] - CMPOrder Info: [id number] - LIPIDOrder Info: [id number] - MG Performed By: #### L 100.0100, L501.5200, L500.4050, L501.9985, L500.4100 ####[facility] [address] [place], [address] Albumin/Globulin [Mass ratio] 1.4 {ratio} Normal 0.9-2.4 [facility] Comment on above: Order Comment: Order Date: 12/09/24Order Info: [id number] - CMPOrder Info: [id number] - LIPIDOrder Info: [id number] - MG Performed By: #### L 100.0100, L501.5200, L500.4050, L501.9985, L500.4100 ####[facility] [address] [place], [address] ALK PHOS 87 U/L Normal 40-129 [facility] Comment on above: Order Comment: Order Date: 12/09/24Order Info: [id number] - CMPOrder Info: [id number] - LIPIDOrder Info: [id number] - MG Performed By: #### L 100.0100, L501.5200, L500.4050, L501.9985, L500.4100 ####[facility] [address] [place], [address] ALT [Catalytic activity/Vol] 19 U/L Normal <=46 [facility] Comment on above: Order Comment: Order Date: 12/09/24Order Info: [id number] - CMPOrder Info: [id number] - LIPIDOrder Info: [id number] - MG Performed By: #### L 100.0100, L501.5200, L500.4050, L501.9985, L500.4100 ####[facility] [address] [place], [address] AST [Catalytic activity/Vol] 20 U/L Normal <=37 [facility] Comment on above: Order Comment: Order Date: 12/09/24Order Info: [id number] - CMPOrder Info: [id number] - LIPIDOrder Info: [id number] - MG Performed By: #### L 100.0100, L501.5200, L500.4050, L501.9985, L500.4100 ####[facility] [address] [place], [address] Bilirubin [Mass/Vol] 0.38 mg/dL Normal 0.00-1.30 [facility] Comment on above: Order Comment: Order Date: 12/09/24Order Info: [id number] - CMPOrder Info: [id number] - LIPIDOrder Info: [id number] - MG Performed By: #### L 100.0100, L501.5200, L500.4050, L501.9985, L500.4100 ####[facility] [address] [place], [address] BUN/CRE 23.1 RATIO High 10-20 [facility] Comment on above: Order Comment: Order Date: 12/09/24Order Info: [id number] - CMPOrder Info: [id number] - LIPIDOrder Info: [id number] - MG Performed By: #### L 100.0100, L501.5200, L500.4050, L501.9985, L500.4100 ####[facility] [address] [place], [address] Calcium [Mass/Vol] 9.2 mg/dL Normal 7.6-11.0 [facility] Comment on above: Order Comment: Order Date: 12/09/24Order Info: [id number] - CMPOrder Info: [id number] - LIPIDOrder Info: [id number] - MG Performed By: #### L 100.0100, L501.5200, L500.4050, L501.9985, L500.4100 ####[facility] [address] [place], [address] Chloride [Moles/Vol] 105 mmol/L Normal 98-108 [facility] Comment on above: Order Comment: Order Date: 12/09/24Order Info: [id number] - CMPOrder Info: [id number] - LIPIDOrder Info: [id number] - MG Performed By: #### L 100.0100, L501.5200, L500.4050, L501.9985, L500.4100 ####[facility] [address] [place], [address] CO2 [Moles/Vol] 18.8 mmol/L Low 21.0-32.0 [facility] Comment on above: Order Comment: Order Date: 12/09/24Order Info: [id number] - CMPOrder Info: [id number] - LIPIDOrder Info: [id number] - MG Performed By: #### L 100.0100, L501.5200, L500.4050, L501.9985, L500.4100 ####[facility] [address] [place], [place], [address] Creatinine [Mass/Vol] 1.00 mg/dL Normal 0.70-1.20 [facility] Comment on above: Order Comment: Order Date: 12/09/24Order Info: [id number] - CMPOrder Info: [id number] - LIPIDOrder Info: [id number] - MG Performed By: #### L 100.0100, L501.5200, L500.4050, L501.9985, L500.4100 ####[facility] [address] [place], [address] GAP 14 Normal 5-15 [facility] Comment on above: Order Comment: Order Date: 12/09/24Order Info: [id number] - CMPOrder Info: [id number] - LIPIDOrder Info: [id number] - MG Performed By: #### L 100.0100, L501.5200, L500.4050, L501.9985, L500.4100 ####[facility] [address] [place], [address] GFR/1.73 sq M.predicted among non-blacks MDRD (S/P/Bld) [Vol rate/Area] 83 mL/min/{1.73_m2} Normal >60 [facility] Comment on above: Order Comment: Order Date: 12/09/24Order Info: [id number] - CMPOrder Info: [id number] - LIPIDOrder Info: [id number] - MG Result Comment: mL/m in/1.73m2 CKD-EPI Creatinine Equation (2020) Performed By: #### L 100.0100, L501.5200, L500.4050, L501.9985, L500.4100 ####[facility] [address] [place], [address] Globulin (S) [Mass/Vol] 3.0 g/dL Normal 2.2-4.2 [facility] Comment on above: Order Comment: Order Date: 12/09/24Order Info: [id number] - CMPOrder Info: [id number] - LIPIDOrder Info: [id number] - MG Performed By: #### L 100.0100, L501.5200, L500.4050, L501.9985, L500.4100 ####[facility] [address] [place], [place], [address] Glucose [Mass/Vol] 114 mg/dL High 70-99 [facility] Comment on above: Order Comment: Order Date: 12/09/24Order Info: [id number] - CMPOrder Info: [id number] - LIPIDOrder Info: [id number] - MG Performed By: #### L 100.0100, L501.5200, L500.4050, L501.9985, L500.4100 ####[facility] [address] [place], [place], [address] Potassium [Moles/Vol] 4.1 mmol/L Normal 3.3-5.1 [facility] Comment on above: Order Comment: Order Date: 12/09/24Order Info: [id number] - CMPOrder Info: [id number] - LIPIDOrder Info: [id number] - MG Performed By: #### L 100.0100, L501.5200, L500.4050, L501.9985, L500.4100 ####[facility] [address] [place], [address] Sodium [Moles/Vol] 138 mmol/L Normal 133-145 [facility] Comment on above: Order Comment: Order Date: 12/09/24Order Info: [id number] - CMPOrder Info: [id number] - LIPIDOrder Info: [id number] - MG Performed By: #### L 100.0100, L501.5200, L500.4050, L501.9985, L500.4100 ####[facility] [address] [place], [address] T PROT 7.1 g/dL Normal 5.9-8.4 [facility] Comment on above: Order Comment: Order Date: 12/09/24Order Info: [id number] - CMPOrder Info: [id number] - LIPIDOrder Info: - MG Performed By: #### L 100.0100, L501.5200, L500.4050, L501.9985, L500.4100 ####[facility] [address] [place], [address] Urea nitrogen [Mass/Vol] 23 mg/dL High 4-19 [facility] Comment on above: Order Comment: Order Date: 12/09/24Order Info: [id number] - CMPOrder Info: [id number] - LIPIDOrder Info: [id number] - MG Performed By: #### L 100.0100, L501.5200, L500.4050, L501.9985, L500.4100 ####[facility] [address] [place], [address] Eosinophil percentageOrdered By: Jt Membreno on 12-09-2024 Eosinophils/100 WBC (Bld) 3.6 % 0-5 [facility] Epithelial cells.squamous LM Ql (Urine sed)Ordered By: Jt Membreno on 12-09-2024 Epithelial cells.squamous LM.HPF (Urine sed) [#/Area] 0 /[HPF] 0-5 [facility] Erythrocyte distribution wid th ratioOrdered By: Jt Membreno on 12-09-2024 Erythrocyte distribution width (RBC) [Ratio] 13.8 % 11.6-14.6 [facility] Erythrocyte distribution wid th standard deviationOrdered By: Jt Membreno on 12-09-2024 Erythrocyte distribution width (RBC) [Entitic vol] 47.0 fL High 35.1-43.9 [facility] GFR/1.73 sq M.predicted yamil g non-blacks MDRD (S/P/Bld) [Vol rate/Area]Ordered By: Jt Membreno on 12-09-2024 Estimated GFR (MDRD) Non-Af Amer 83 >60 [facility] Comment on above: mL/min/1.73m2 CKD-EP I Creatinine Equation (2020) Glucose Ql (U)Ordered By: Luzmaria Membreno on 12-09-2024 Urine Glucose (UA) Normal mg/dl Normal [facility] Hematocrit Auto (Bld) [Volum e fraction]Ordered By: Jt Membreno on 12-09-2024 Hematocrit (Bld) [Volume fraction] 41.0 % 40-54 [facility] Hemoglobin A1con 12-09-2024 HbA1c (Bld) [Mass fraction] 5.8 % Normal <=5.6 [facility] Comment on above: Order Comment: Order Date: 12/09/24Order Info: [id number] - A1C Performed By: #### L 100.0100, L501.5200, L500.4050, L501.9985, L500.4100 ####[facility] [address] [place], [address] Hemoglobin A1c percentageOrd ered By: Jt Membreno on 12-09-2024 HbA1c (Bld) [Mass fraction] 5.8 % >5.7 [facility] Hemoglobin measurementOrdere d By: Jt Membreno on 12-09-2024 Hemoglobin (Bld) [Mass/Vol] 13.6 g/dL 13.0-16.5 [facility] Immature granulocytes/100 WB C Auto (Bld)Ordered By: Jt Membreno on 12-09-2024 Immature granulocytes/100 WBC (Bld) 0.200 % 0.0-0.9 [facility] Comment on above: IG% - Immature Granu locytes (promyelocytes, myelocytes and metamyelocytes) > 1% indicates that a LEFT SHIFT is Present. Ketones Test strip Ql (U)Ord ered By: Jt Membreno on 12-09-2024 Ketones Ql (U) Negative Negative [facility] L506.1001on 12-09-2024 Vitamin D 25-OH 35.0 ng/mL Normal 30-100 [facility] Comment on above: Order Comment: Order Date: 12/09/24Order Info: [id number] - CMPOrder Info: [id number] - LIPIDOrder Info: [id number] - MG Result Comment: Neva min D StatusDeficiency: <20 ng/mL (50nmol/L)Insufficiency: 20-30 ng/mL (50-75 nmol/L)Sufficiency: 30-100 ng/mL (75-250 nmol/L)Toxicity: >100 ng/mL (>250 nmol/L) Performed By: #### L 506.1001 ####[facility] [address] [place], [address] LDL calc ser/plasOrdered By: Jt Membreno on 12-09-2024 LDL Cholesterol, Calculated 113 mg/dL [facility] Comment on above: Zmvzbuilir=789-468 m g/dL & Higher Taut=242 mg/dL or greater Laboratory - Chemistry and C hemistry - challengeOrdered By: Jt Membreno on 12-09-2024 AST [Catalytic activity/Vol] 20 U/L <38 [facility] Lipid Profileon 12-09-2024 CHOL:HDL 4.36 Normal [facility] Comment on above: Order Comment: Order Date: 12/09/24Order Info: [id number] - CMPOrder Info: [id number] - LIPIDOrder Info: [id number] - MG Performed By: #### L 100.0100, L501.5200, L500.4050, L501.9985, L500.4100 ####[facility] [address] [place], [address] Cholesterol [Mass/Vol] 176 mg/dL Normal <=200 [facility] Comment on above: Order Comment: Order Date: 12/09/24Order Info: [id number] - CMPOrder Info: [id number] - LIPIDOrder Info: [id number] - MG Result Comment: Chol esterol level, Desirable <200 mg/dLBorderline high cholesterol 200-239 mg/dLHigh cholesterol >=240 mg/dLRecommendations of the NCEP Adult Treatment Panel for thefollowing risk-cutoff thresholds for the [place] [facility] [place]. Performed By: #### L 100.0100, L501.5200, L500.4050, L501.9985, L500.4100 ####[facility] [address] [place], [address] Cholesterol in HDL [Mass/Vol] 40 mg/dL Normal [facility] Comment on above: Order Comment: Order Date: 12/09/24Order Info: [id number] - CMPOrder Info: [id number] - LIPIDOrder Info: [id number] - MG Result Comment: Francoise onal Cholesterol Education Program (NCEP) guidelines:<40 mg/dL: Low HDL-cholesterol (major risk factor for CHD)>= 60 mg/dL: High HDL-cholesterol (negative risk factor forCHD)HDL-cholesterol is affected by a number of factors, e.g.smoking, exercise, hormones, sex and age. Performed By: #### L 100.0100, L501.5200, L500.4050, L501.9985, L500.4100 ####[facility] [address] [place], [address] Cholesterol in LDL [Mass/Vol] 113 mg/dL Normal [facility] Comment on above: Order Comment: Order Date: 12/09/24Order Info: [id number] - CMPOrder Info: [id number] - LIPIDOrder Info: [id number] - MG Result Comment: Bord jpbllt=521-209 mg/dL Higher Jpsj=132 mg/dL or greater Performed By: #### L 100.0100, L501.5200, L500.4050, L501.9985, L500.4100 ####[facility] [address] [place], [address] Cholesterol in VLDL [Mass/Vol] 22 mg/dL Normal 5-40 [facility] Comment on above: Order Comment: Order Date: 12/09/24Order Info: [id number] - CMPOrder Info: [id number] - LIPIDOrder Info: [id number] - MG Performed By: #### L 100.0100, L501.5200, L500.4050, L501.9985, L500.4100 ####[facility] [address] [place], [address] Triglyceride [Mass/Vol] 112 mg/dL Normal [facility] Comment on above: Order Comment: Order Date: 12/09/24Order Info: [id number] - CMPOrder Info: [id number] - LIPIDOrder Info: [id number] - MG Result Comment: The drugs N-Acetylcysteine and Metamizole may falselydepress this assay.Normal range: <150 mg/dLBorderline High: 150-199 mg/dLHigh: 200-499 mg/dLVery High: >500 mg/dL Performed By: #### L 100.0100, L501.5200, L500.4050, L501.9985, L500.4100 ####[facility] [address] [place], [address] Lymphocytes Auto (Unsp spec) [#/Vol]Ordered By: Jt Membreno on 12-09-2024 Lymphocytes (Bld) [#/Vol] 0.51 10*3/uL Low 0.83-4.51 [facility] Lymphocytes/100 WBC Auto (Un sp spec)Ordered By: Jt Membreno on 12-09-2024 Lymphocytes/100 WBC (Bld) 10.3 % Low 19-41 [facility] MCV (mean corpuscular volume ) determinationOrdered By: Jt Membreno on 12-09-2024 MCV (RBC) [Entitic vol] 92.8 fL 80-94 [facility] Magnesiumon 12-09-2024 Magnesium [Mass/Vol] 2.1 mg/dL Normal 1.5-2.2 [facility] Comment on above: Order Comment: Order Date: 12/09/24Order Info: [id number] - CMPOrder Info: [id number] - LIPIDOrder Info: [id number] - MG Performed By: #### L 100.0100, L501.5200, L500.4050, L501.9985, L500.4100 ####[facility] [address] [place], [place], [id number] Magnesium (Unsp spec) [Mass/ Vol]Ordered By: Jt Membreno on 12-09-2024 Magnesium [Mass/Vol] 2.1 mg/dL 1.5-2.2 [facility] Mean corpuscular hemoglobin (MCH) determinationOrdered By: Jt Membreno on 12-09-2024 MCH (RBC) [Entitic mass] 30.8 pg 27.0-32.0 [facility] Mean corpuscular hemoglobin concentration (MCHC) determinationOrdered By: Jt Membreno on 12-09-2024 MCHC (RBC) [Mass/Vol] 33.2 g/dL 32-36 [facility] Mean platelet volume determi nationOrdered By: Jt Membreno on 12-09-2024 Platelet mean volume (Bld) [Entitic vol] 9.1 fL 6.2-12.0 [facility] Microscopic analysis of urin e for red blood cells (RBC)Ordered By: Jt Membreno on 12-09-2024 Urine RBC 0 SEEN /hpf 0-5 [facility] Monocyte percentageOrdered B y: Jt Membreno on 12-09-2024 Monocytes/100 WBC (Bld) 10.3 % High 0-10 [facility] Mucus LM Ql (Urine sed)Order ed By: Jt Membreno on 12-09-2024 Mucus Ql (Urine sed) 1+ /hpf [facility] Neutrophil percentageOrdered By: Jt Membreno on 12-09-2024 Neutrophils/100 WBC (Bld) 74.8 % High 47-70 [facility] Nitrite Test strip Ql (U)Ord ered By: Jt Membreno on 12-09-2024 Nitrite Ql (U) Negative Negative [facility] Nucleated red blood cell per centageOrdered By: Jt Membreno on 12-09-2024 Nucleated RBC/100 WBC (Bld) [Ratio] 0 % 0-5 [facility] Platelet countOrdered By: Luzmaria Membreno on 12-09-2024 Platelets (Bld) [#/Vol] 266 10*3/uL 150-450 [facility] Potassium (Unsp spec) [Mass/ Vol]Ordered By: Jt Membreno on 12-09-2024 Potassium [Moles/Vol] 4.1 mmol/L 3.3-5.1 [facility] Protein Test strip Ql (U)Ord ered By: Jt Membreno on 12-09-2024 Protein Ql (U) 15 mg/dl High Negative [facility] RBC Auto (Bld) [#/Vol]Ordere d By: Jt Membreno on 12-09-2024 RBC (Bld) [#/Vol] 4.42 10*6/uL Low 4.6-6.2 [facility] Screening total cholesterol/ high density lipoprotein (HDL) cholesterol ratioOrdered By: Jt Membreno on 12-09-2024 Cholesterol.total/Chol esterol in HDL [Mass ratio] 4.36 {ratio} [facility] Serum creatinine measurement (mass/volume)Ordered By: tJ Membreno on 12-09-2024 Creatinine [Mass/Vol] 1.00 mg/dL 0.70-1.20 [facility] Serum globulin measurementOr dered By: Jt Membreno on 12-09-2024 Globulin (S) [Mass/Vol] 3.0 g/dL 2.2-4.2 [facility] Serum glucose measurement (m ass/volume)Ordered By: Jt Membreno on 12-09-2024 Glucose [Mass/Vol] 114 mg/dL High 70-99 [facility] Serum or plasma alanine alvarez otransferase (ALT) measurementOrdered By: Jt Membreno on 12-09-2024 ALT [Catalytic activity/Vol] 19 U/L <47 [facility] Serum or plasma albumin wilner urement (mass/volume)Ordered By: Jt Membreno on 12-09-2024 Albumin [Mass/Vol] 4.1 g/dL 3.4-4.8 [facility] Serum or plasma albumin/glob ulin mass ratioOrdered By: Jt Membreno on 12-09-2024 Albumin/Globulin [Mass ratio] 1.4 {ratio} 0.9-2.4 [facility] Serum or plasma alkaline pat sphatase measurementOrdered By: Jt Membreno on 12-09-2024 ALP [Catalytic activity/Vol] 87 U/L 40-129 [facility] Serum or plasma calcium wilner urement (mass/volume)Ordered By: Jt Membreno on 12-09-2024 Calcium [Mass/Vol] 9.2 mg/dL 7.6-11.0 [facility] Serum or plasma cholesterol in HDL measurement (mass/volume)Ordered By: Jt Membreno on 12-09-2024 Cholesterol in HDL [Mass/Vol] 40 mg/dL >40 [facility] Comment on above: National Cholesterol Education Program (NCEP) guidelines:<40 mg/dL: Low HDL-cholesterol (major risk factor for CHD)>= 60 mg/dL: High HDL-cholesterol (negative risk factor for CHD)HDL-cholesterol is affected by a number of factors, e.g. smoking, exercise, hormones, sex and age. Serum or plasma cholesterol measurement (mass/volume)Ordered By: Jt Membreno on 12-09-2024 Cholesterol [Mass/Vol] 176 mg/dL <201 [facility] Comment on above: Cholesterol level, D esirable <200 mg/dLBorderline high cholesterol 200-239 mg/dLHigh cholesterol >=240 mg/dLRecommendations of the NCEP Adult Treatment Panel for the following risk-cutoff thresholds for the [place] population. Serum or plasma urea nitroge n measurement (mass/volume)Ordered By: Jt Membreno on 12-09-2024 Urea nitrogen [Mass/Vol] 23 mg/dL High 4-19 [facility] Sodium levelOrdered By: Jt Membreno on 12-09-2024 Sodium [Moles/Vol] 138 mmol/L 133-145 [facility] Total proteinOrdered By: Mark Membreno on 12-09-2024 Protein [Mass/Vol] 7.1 g/dL 5.9-8.4 [facility] Triglycerides measurementOrd ered By: Jt Membreno on 12-09-2024 Triglyceride [Mass/Vol] 112 mg/dL <199 [facility] Comment on above: The drugs N-Acetylcy steine and Metamizole may falsely depress this assay. Normal range: <150 mg/dLBorderline High: 150-199 mg/dLHigh: 200-499 mg/dLVery High: >500 mg/dL Urinalysis, Completeon 12-09 EPI,SQUAMOUS 0-5 SEEN Normal 0-5 [facility] Comment on above: Order Comment: CLEAN CATCH Performed By: #### L 400.0001 ####[facility] [address] [place], [address] Mucus Ql (Urine sed) 1+ /hpf Normal [facility] Comment on above: Order Comment: CLEAN CATCH Performed By: #### L 400.0001 ####[facility] [address] [place], [address] RBC 0 SEEN Normal 0-5 [facility] Comment on above: Order Comment: CLEAN CATCH Performed By: #### L 400.0001 ####[facility] [address] [place], [address] WBC 10-25 SEEN Normal 0-5 [facility] Comment on above: Order Comment: CLEAN CATCH Performed By: #### L 400.0001 ####[facility] [address] [place], [address] BACTERIA 0 SEEN Normal None Seen [facility] Comment on above: Order Comment: CLEAN CATCH Performed By: #### L 400.0001 ####[facility] [address] [place], [address] Urine blood detectionOrdered By: Jt Membreno on 12-09-2024 Urine Occult Blood 10 /ul High Negative [facility] Urine clarityOrdered By: Mark Membreno on 12-09-2024 Clarity (U) Clear Clear [facility] Urine color determinationOrd ered By: Jt Membreno on 12-09-2024 Color (U) Yellow Yellow [facility] Urine leukocyte esterase det ection by dipstickOrdered By: Jt Membreno on 12-09-2024 Leukocyte esterase Test strip Ql (U) 500 /ul High Negative [facility] Urine pHOrdered By: Jt vallecillo on 12-09-2024 pH (U) 6.0 [pH] 5.0 - 8.0 [facility] Urine sediment bacteria coun t by microscopy (number/high power field)Ordered By: Jt Membreno on 12-09-2024 Bacteria LM.HPF (Urine sed) [#/Area] 0 /[HPF] None Seen [facility] Urine specific gravity measu rementOrdered By: Jt Membreno on 12-09-2024 Specific gravity (U) [Rel density] 1.015 1.002-1.030 [facility] Urobilinogen Ql (U)Ordered B y: Jt Membreno on 12-09-2024 Urine Urobilinogen Normal mg/dl Normal [facility] Vitamin D, 25-hydroxyOrdered By: Jt Membreno on 12-09-2024 Vitamin D 25-Hydroxy 35.0 ng/mL 30-100 [facility] Comment on above: Vitamin D StatusDefi ciency: <20 ng/mL (50nmol/L)Insufficiency: 20-30 ng/mL (50-75 nmol/L)Sufficiency: 30-100 ng/mL (75-250 nmol/L)Toxicity: >100 ng/mL (>250 nmol/L) White blood cell (WBC) count Ordered By: Jt Membreno on 12-09-2024 WBC (Bld) [#/Vol] 5.0 10*3/uL 4.4-11.0 [facility] White blood cell countOrdere d By: Jt Membreno on 12-09-2024 Urine WBC 10-25 SEEN /hpf 0-5 [facility] Absolute neutrophil countOrd ered By: Andre Quesada on 03-27-2025 Neutrophils (Bld) [#/Vol] 4.4 10*3/uL 2.0-7.7 [facility] Anion gap in Serum or Plasma Ordered By: Andre Quesada on 12-08-2024 Anion gap [Moles/Vol] 15 mmol/L 5-15 [facility] BUN/creatinine ratioOrdered By: Andre Quesada on 12-08-2024 Urea nitrogen/Creatinine [Mass ratio] 21.1 mg/mg High 10-20 [facility] Basophil percentageOrdered B y: Andre Quesada on 12-08-2024 Basophils/100 WBC (Bld) 0.8 % 0-1 [facility] Bilirubin, totalOrdered By: Andre Quesada on 12-08-2024 Bilirubin [Mass/Vol] 0.21 mg/dL 0.00-1.30 [facility] CBC W/Diff, Automatedon 11-13 Absolute Lymph 0.68 X10 3/uL Low 0.83-4.51 [facility] Comment on above: Performed By: #### L 504.2610, L503.6030, L500.4050, L100.0100, L3100.2300, L503.6550 ####[facility] [address] [place], [address] Absolute Neut 4.4 X10 3/uL Normal 2.0-7.7 [facility] Comment on above: Performed By: #### L 504.2610, L503.6030, L500.4050, L100.0100, L3100.2300, L503.6550 ####[facility] [address] [place], [address] Basophils/100 WBC (Bld) 0.8 % Normal 0-1 [facility] Comment on above: Performed By: #### L 504.2610, L503.6030, L500.4050, L100.0100, L3100.2300, L503.6550 ####[facility] [address] [place], [address] Eosinophils/100 WBC (Bld) 3.6 % Normal 0-5 [facility] Comment on above: Performed By: #### L 504.2610, L503.6030, L500.4050, L100.0100, L3100.2300, L503.6550 ####[facility] [address] [place], [address] Erythrocyte distribution width (RBC) [Ratio] 13.8 % Normal 11.6-14.6 [facility] Comment on above: Performed By: #### L 504.2610, L503.6030, L500.4050, L100.0100, L3100.2300, L503.6550 ####[facility] [address] [place], [address] Hematocrit (Bld) [Volume fraction] 40.8 % Normal 40-54 [facility] Comment on above: Performed By: #### L 504.2610, L503.6030, L500.4050, L100.0100, L3100.2300, L503.6550 ####[facility] [address] [place], [address] Hemoglobin (Bld) [Mass/Vol] 13.6 g/dL Normal 13.0-16.5 [facility] Comment on above: Performed By: #### L 504.2610, L503.6030, L500.4050, L100.0100, L3100.2300, L503.6550 ####[facility] [address] [place], [address] IG% 0.300 Normal 0.0-0.9 [facility] Comment on above: Result Comment: IG% - Immature Granulocytes (promyelocytes, myelocytes andmetamyelocytes) > 1% indicates that a LEFT SHIFT is Present. Performed By: #### L 504.2610, L503.6030, L500.4050, L100.0100, L3100.2300, L503.6550 ####[facility] [address] [place], [address] Lymphocytes/100 WBC (Bld) 11.2 % Low 19-41 [facility] Comment on above: Performed By: #### L 504.2610, L503.6030, L500.4050, L100.0100, L3100.2300, L503.6550 ####[facility] [address] [place], [address] MCH (RBC) [Entitic mass] 31.3 pg Normal 27.0-32.0 [facility] Comment on above: Performed By: #### L 504.2610, L503.6030, L500.4050, L100.0100, L3100.2300, L503.6550 ####[facility] [address] [place], [address] MCHC (RBC) [Mass/Vol] 33.3 g/dL Normal 32-36 [facility] Comment on above: Performed By: #### L 504.2610, L503.6030, L500.4050, L100.0100, L3100.2300, L503.6550 ####[facility] [address] [place], [address] MCV (RBC) [Entitic vol] 93.8 fL Normal 80-94 [facility] Comment on above: Performed By: #### L 504.2610, L503.6030, L500.4050, L100.0100, L3100.2300, L503.6550 ####[facility] [address] [place], [address] Monocytes/100 WBC (Bld) 11.7 % High 0-10 [facility] Comment on above: Performed By: #### L 504.2610, L503.6030, L500.4050, L100.0100, L3100.2300, L503.6550 ####[facility] [address] [place], [address] Neutrophils/100 WBC (Bld) 72.4 % High 47-70 [facility] Comment on above: Performed By: #### L 504.2610, L503.6030, L500.4050, L100.0100, L3100.2300, L503.6550 ####[facility] [address] [place], [address] Nucleated RBC (Bld) [#/Vol] 0 10*3/uL Normal 0-5 [facility] Comment on above: Performed By: #### L 504.2610, L503.6030, L500.4050, L100.0100, L3100.2300, L503.6550 ####[facility] [address] [place], [address] Platelet mean volume (Bld) [Entitic vol] 8.9 fL Normal 6.2-12.0 [facility] Comment on above: Performed By: #### L 504.2610, L503.6030, L500.4050, L100.0100, L3100.2300, L503.6550 ####[facility] [address] [place], [address] Platelets (Bld) [#/Vol] 253 10*3/uL Normal 150-450 [facility] Comment on above: Performed By: #### L 504.2610, L503.6030, L500.4050, L100.0100, L3100.2300, L503.6550 ####[facility] [address] [place], [address] RBC (Bld) [#/Vol] 4.35 10*6/uL Low 4.6-6.2 [facility] Comment on above: Performed By: #### L 504.2610, L503.6030, L500.4050, L100.0100, L3100.2300, L503.6550 ####[facility] [address] [place], [address] RDW SD 47.4 fl High 35.1-43.9 [facility] Comment on above: Performed By: #### L 504.2610, L503.6030, L500.4050, L100.0100, L3100.2300, L503.6550 ####[facility] [address] [place], [place], [id number] WBC (Bld) [#/Vol] 6.1 10*3/uL Normal 4.4-11.0 [facility] Comment on above: Performed By: #### L 504.2610, L503.6030, L500.4050, L100.0100, L3100.2300, L503.6550 ####[facility] [address] [place], [address] Calculated total iron bindin g capacityOrdered By: Andre Quesada on 12-08-2024 Total Iron Binding Capacity 305 ug/dL 250-450 [facility] Carbon dioxide, total [Moles /volume] in Central venous bloodOrdered By: Andre Quesada on 12-08-2024 CO2 [Moles/Vol] 20.0 mmol/L Low 21.0-32.0 [facility] Chloride assayOrdered By: Luzmaria Quesada on 12-08-2024 Chloride [Moles/Vol] 106 mmol/L 98-108 [facility] Comprehensive Metabolic Prof ilon 12-08-2024 Albumin [Mass/Vol] 3.7 g/dL Normal 3.4-4.8 [facility] Comment on above: Performed By: #### L 504.2610, L503.6030, L500.4050, L100.0100, L3100.2300, L503.6550 ####[facility] [address] [place], [address] Albumin/Globulin [Mass ratio] 1.5 {ratio} Normal 0.9-2.4 [facility] Comment on above: Performed By: #### L 504.2610, L503.6030, L500.4050, L100.0100, L3100.2300, L503.6550 ####[facility] [address] [place], [address] ALK PHOS 88 U/L Normal 40-129 [facility] Comment on above: Performed By: #### L 504.2610, L503.6030, L500.4050, L100.0100, L3100.2300, L503.6550 ####[facility] [address] [place], [address] ALT [Catalytic activity/Vol] 17 U/L Normal <=46 [facility] Comment on above: Performed By: #### L 504.2610, L503.6030, L500.4050, L100.0100, L3100.2300, L503.6550 ####[facility] [address] [place], [address] AST [Catalytic activity/Vol] 22 U/L Normal <=37 [facility] Comment on above: Performed By: #### L 504.2610, L503.6030, L500.4050, L100.0100, L3100.2300, L503.6550 ####[facility] [address] [place], [address] Bilirubin [Mass/Vol] 0.21 mg/dL Normal 0.00-1.30 [facility] Comment on above: Performed By: #### L 504.2610, L503.6030, L500.4050, L100.0100, L3100.2300, L503.6550 ####[facility] [address] [place], [address] BUN/CRE 21.1 RATIO High 10-20 [facility] Comment on above: Performed By: #### L 504.2610, L503.6030, L500.4050, L100.0100, L3100.2300, L503.6550 ####[facility] [address] [place], [address] Calcium [Mass/Vol] 8.5 mg/dL Normal 7.6-11.0 [facility] Comment on above: Performed By: #### L 504.2610, L503.6030, L500.4050, L100.0100, L3100.2300, L503.6550 ####[facility] [address] [place], [address] Chloride [Moles/Vol] 106 mmol/L Normal 98-108 [facility] Comment on above: Performed By: #### L 504.2610, L503.6030, L500.4050, L100.0100, L3100.2300, L503.6550 ####[facility] [address] [place], [address] CO2 [Moles/Vol] 20.0 mmol/L Low 21.0-32.0 [facility] Comment on above: Performed By: #### L 504.2610, L503.6030, L500.4050, L100.0100, L3100.2300, L503.6550 ####[facility] [address] [place], [address] Creatinine [Mass/Vol] 1.08 mg/dL Normal 0.70-1.20 [facility] Comment on above: Performed By: #### L 504.2610, L503.6030, L500.4050, L100.0100, L3100.2300, L503.6550 ####[facility] [address] [place], [address] ECRCL 93.95 ml/min Normal 50-250 [facility] Comment on above: Performed By: #### L 504.2610, L503.6030, L500.4050, L100.0100, L3100.2300, L503.6550 ####[facility] [address] [place], [address] GAP 15 Normal 5-15 [facility] Comment on above: Performed By: #### L 504.2610, L503.6030, L500.4050, L100.0100, L3100.2300, L503.6550 ####[facility] [address] [place], [address] GFR/1.73 sq M.predicted among non-blacks MDRD (S/P/Bld) [Vol rate/Area] 76 mL/min/{1.73_m2} Normal >60 [facility] Comment on above: Result Comment: mL/m in/1.73m2 CKD-EPI Creatinine Equation (2020) Performed By: #### L 504.2610, L503.6030, L500.4050, L100.0100, L3100.2300, L503.6550 ####[facility] [address] [place], [address] Globulin (S) [Mass/Vol] 2.5 g/dL Normal 2.2-4.2 [facility] Comment on above: Performed By: #### L 504.2610, L503.6030, L500.4050, L100.0100, L3100.2300, L503.6550 ####[facility] [address] [place], [address] Glucose [Mass/Vol] 98 mg/dL Normal 70-99 [facility] Comment on above: Performed By: #### L 504.2610, L503.6030, L500.4050, L100.0100, L3100.2300, L503.6550 ####[facility] [address] [place], [address] Potassium [Moles/Vol] 4.1 mmol/L Normal 3.3-5.1 [facility] Comment on above: Performed By: #### L 504.2610, L503.6030, L500.4050, L100.0100, L3100.2300, L503.6550 ####[facility] [address] [place], [address] Sodium [Moles/Vol] 141 mmol/L Normal 133-145 [facility] Comment on above: Performed By: #### L 504.2610, L503.6030, L500.4050, L100.0100, L3100.2300, L503.6550 ####[facility] [address] [place], [address] T PROT 6.2 g/dL Normal 5.9-8.4 [facility] Comment on above: Performed By: #### L 504.2610, L503.6030, L500.4050, L100.0100, L3100.2300, L503.6550 ####[facility] [address] [place], [address] Urea nitrogen [Mass/Vol] 23 mg/dL High 4-19 [facility] Comment on above: Performed By: #### L 504.2610, L503.6030, L500.4050, L100.0100, L3100.2300, L503.6550 ####[facility] [address] [place], [address] Eosinophil percentageOrdered By: Andre Quesada on 12-08-2024 Eosinophils/100 WBC (Bld) 3.6 % 0-5 [facility] Erythrocyte distribution wid th ratioOrdered By: Andre Quesada on 12-08-2024 Erythrocyte distribution width (RBC) [Ratio] 13.8 % 11.6-14.6 [facility] Erythrocyte distribution wid th standard deviationOrdered By: Andre Quesada on 12-08-2024 Erythrocyte distribution width (RBC) [Entitic vol] 47.4 fL High 35.1-43.9 [facility] Estimation of creatinine barbie aranceOrdered By: Andre Quesada on 12-08-2024 Estimated Creatinine Clearance Calc 93.95 ml/min 50-250 [facility] Ferritinon 12-08-2024 Ferritin [Mass/Vol] 50 ng/mL Normal 37-417 [facility] Comment on above: Performed By: #### L 504.2610, L503.6030, L500.4050, L100.0100, L3100.2300, L503.6550 ####[facility] [address] [place], [address] GFR/1.73 sq M.predicted yamil g non-blacks MDRD (S/P/Bld) [Vol rate/Area]Ordered By: Andre Quesada on 12-08-2024 Estimated GFR (MDRD) Non-Af Amer 76 >60 [facility] Comment on above: mL/min/1.73m2 CKD-EP I Creatinine Equation (2020) Hematocrit Auto (Bld) [Volum e fraction]Ordered By: Andre Quesada on 12-08-2024 Hematocrit (Bld) [Volume fraction] 40.8 % 40-54 [facility] Hemoglobin measurementOrdere d By: Andre Quesada on 12-08-2024 Hemoglobin (Bld) [Mass/Vol] 13.6 g/dL 13.0-16.5 [facility] Immature granulocytes/100 WB C Auto (Bld)Ordered By: Andre Quesada on 12-08-2024 Immature granulocytes/100 WBC (Bld) 0.300 % 0.0-0.9 [facility] Comment on above: IG% - Immature Granu locytes (promyelocytes, myelocytes and metamyelocytes) > 1% indicates that a LEFT SHIFT is Present. Iron (Unsp spec) [Mass/Mass] Ordered By: Andre Quesada on 12-08-2024 Iron [Mass/Vol] 45 ug/dL Low 65-175 [facility] Iron saturation [Mass fracti on]Ordered By: Andre Quesada on 12-08-2024 Iron Saturation 14.8 % 9-55 [facility] Comment on above: Previous reported re sult: 15.0 %Edited by: BROOKLYNN on 12/08/24:1625 AMENDED REPORT 12/08/24 1625 IRON SATURATION previously reported as: 15.0 % Iron+Iron Binding Capacityon 12-08-2024 Iron [Mass/Vol] 45 ug/dL Low 65-175 [facility] Comment on above: Performed By: #### L 504.2610, L503.6030, L500.4050, L100.0100, L3100.2300, L503.6550 ####[facility] [address] [place], [address] UIBC 260 ug/dL Normal 228-428 [facility] Comment on above: Performed By: #### L 504.2610, L503.6030, L500.4050, L100.0100, L3100.2300, L503.6550 ####[facility] [address] [place], [address] LDHon 12-08-2024 LDH 227 U/L Normal 87-241 [facility] Comment on above: Order Comment: 1 Result Comment: Hemo lysis present, Results??could be affected.?? Performed By: #### L 504.2610, L503.6030, L500.4050, L100.0100, L3100.2300, L503.6550 ####[facility] [address] [place], [place], [id number] Laboratory - Chemistry and C hemistry - challengeOrdered By: Andre Quesada on 12-08-2024 AST [Catalytic activity/Vol] 22 U/L <38 [facility] Lactate dehydrogenase (LDH) measurementOrdered By: Andre Quesada on 12-08-2024 LDH [Catalytic activity/Vol] 227 U/L 87-241 [facility] Comment on above: Hemolysis present, R esults could be affected. Lymphocytes Auto (Unsp spec) [#/Vol]Ordered By: Andre Quesada on 12-08-2024 Lymphocytes (Bld) [#/Vol] 0.68 10*3/uL Low 0.83-4.51 [facility] Lymphocytes/100 WBC Auto (Un sp spec)Ordered By: Andre Quesada on 12-08-2024 Lymphocytes/100 WBC (Bld) 11.2 % Low 19-41 [facility] MCV (mean corpuscular volume ) determinationOrdered By: Andre Quesada on 12-08-2024 MCV (RBC) [Entitic vol] 93.8 fL 80-94 [facility] Mean corpuscular hemoglobin (MCH) determinationOrdered By: Andre Quesada on 12-08-2024 MCH (RBC) [Entitic mass] 31.3 pg 27.0-32.0 [facility] Mean corpuscular hemoglobin concentration (MCHC) determinationOrdered By: Andre Quesada on 12-08-2024 MCHC (RBC) [Mass/Vol] 33.3 g/dL 32-36 [facility] Mean platelet volume determi nationOrdered By: Andre Quesada on 12-08-2024 Platelet mean volume (Bld) [Entitic vol] 8.9 fL 6.2-12.0 [facility] Monocyte percentageOrdered B y: Andre Quesada on 12-08-2024 Monocytes/100 WBC (Bld) 11.7 % High 0-10 [facility] Neutrophil percentageOrdered By: Andre Quesada on 12-08-2024 Neutrophils/100 WBC (Bld) 72.4 % High 47-70 [facility] No Panel InformationOrdered By: Andre Quesada on 12-08-2024 Unsaturated Iron Binding Capacity 260 ug/dL 228-428 [facility] Nucleated red blood cell per centageOrdered By: Andre Quesada on 12-08-2024 Nucleated RBC/100 WBC (Bld) [Ratio] 0 % 0-5 [facility] Platelet countOrdered By: Luzmaria Quesada on 12-08-2024 Platelets (Bld) [#/Vol] 253 10*3/uL 150-450 [facility] Potassium (Unsp spec) [Mass/ Vol]Ordered By: Andre Quesada on 12-08-2024 Potassium [Moles/Vol] 4.1 mmol/L 3.3-5.1 [facility] RBC Auto (Bld) [#/Vol]Ordere d By: Andre Quesada on 12-08-2024 RBC (Bld) [#/Vol] 4.35 10*6/uL Low 4.6-6.2 [facility] Radiation Oncology Visiton 0 12-08-2024 Radiation Oncology Visit Normal [facility] Serum creatinine measurement (mass/volume)Ordered By: Andre Quesada on 12-08-2024 Creatinine [Mass/Vol] 1.08 mg/dL 0.70-1.20 [facility] Serum globulin measurementOr dered By: Andre Quesada on 12-08-2024 Globulin (S) [Mass/Vol] 2.5 g/dL 2.2-4.2 [facility] Serum glucose measurement (m ass/volume)Ordered By: Andre Quesada on 12-08-2024 Glucose [Mass/Vol] 98 mg/dL 70-99 [facility] Serum or plasma alanine alvarez otransferase (ALT) measurementOrdered By: Andre Quesada on 12-08-2024 ALT [Catalytic activity/Vol] 17 U/L <47 [facility] Serum or plasma albumin wilner urement (mass/volume)Ordered By: Andre Quesada on 12-08-2024 Albumin [Mass/Vol] 3.7 g/dL 3.4-4.8 [facility] Serum or plasma albumin/glob ulin mass ratioOrdered By: Ander Quesada on 12-08-2024 Albumin/Globulin [Mass ratio] 1.5 {ratio} 0.9-2.4 [facility] Serum or plasma alkaline pat sphatase measurementOrdered By: Andre Quesada on 12-08-2024 ALP [Catalytic activity/Vol] 88 U/L 40-129 [facility] Serum or plasma calcium wilner urement (mass/volume)Ordered By: Andre Quesada on 12-08-2024 Calcium [Mass/Vol] 8.5 mg/dL 7.6-11.0 [facility] Serum or plasma ferritin blanche surement (mass/volume)Ordered By: Andre Quesada on 12-08-2024 Ferritin [Mass/Vol] 50 ng/mL 37-417 [facility] Serum or plasma urea nitroge n measurement (mass/volume)Ordered By: Andre Quesada on 12-08-2024 Urea nitrogen [Mass/Vol] 23 mg/dL High 4-19 [facility] Sodium levelOrdered By: Yg Quesada on 12-08-2024 Sodium [Moles/Vol] 141 mmol/L 133-145 [facility] Total proteinOrdered By: Jose Alfredo Quesada on 12-08-2024 Protein [Mass/Vol] 6.2 g/dL 5.9-8.4 [facility] White blood cell (WBC) count Ordered By: Andre Quesada on 12-08-2024 WBC (Bld) [#/Vol] 6.1 10*3/uL 4.4-11.0 [facility] International normalized rat io (INR) calculationOrdered By: Watson Rodriguez on 12-01-2024 INR Coag (Bld) [Relative time] 2.1 {INR} [facility] Prothrombin Time w/INRon INR Coag (PPP) [Relative time] 2.1 {INR} Normal [facility] Comment on above: Performed By: #### L 300.3900 ####[facility] [address] [place], [place], [phone] PT Coag (PPP) [Time] 23.8 s High 11.7-14.9 [facility] Comment on above: Performed By: #### L 300.3900 ####[facility] [address] [place], [address] Prothrombin timeOrdered By: Watson Rodriguez on 12-01-2024 PT Coag (PPP) [Time] 23.8 s High 11.7-14.9 [facility] Carcinoembryonic Antigenon 0 - CEA 2.1 ng/mL Normal 0.0-4.7 [facility] Comment on above: Result Comment: Nons mokers <3.9 Smokers <5.6[employer] Electrochemiluminescence Immunoassay(ECLIA)Values obtained with different assay methods or kitscannot be used interchangeably. Results cannot beinterpreted as absolute evidence of the presence orabsence of malignant disease.Performed at: [facility] [id number] [id number] Director: Ed Ramirez PhD, Phone: [phone] Performed By: #### L 3100.2300, L100.0100, L504.2610, L500.4050 ####[facility] [address] [place], [address] Absolute neutrophil countOrd ered By: Andre Quesada on 11-16-2024 Neutrophils (Bld) [#/Vol] 4.6 10*3/uL 2.0-7.7 [facility] Anion gap in Serum or Plasma Ordered By: Andre Quesada on 11-16-2024 Anion gap [Moles/Vol] 13 mmol/L 5- [facility] BUN/creatinine ratioOrdered By: Andre [facility] on 11-16-2024 Urea nitrogen/Creatinine [Mass ratio] 24.6 mg/mg High 10- [facility] Basophil percentageOrdered B y: Andre Quesada on 11-16-2024 Basophils/100 WBC (Bld) 0.7 % 0-1 [facility] Bilirubin, totalOrdered By: Andre Quesada on 11-16-2024 Bilirubin [Mass/Vol] 0.42 mg/dL 0.00-1.30 [facility] CBC W/Diff, Automatedon 03- Absolute Lymph 0.59 X10 3/uL Low 0.83-4.51 [facility] Comment on above: Performed By: #### L 3100.2300, L100.0100, L504.2610, L500.4050 ####[facility] [address] [place], [address] Absolute Neut 4.6 X10 3/uL Normal 2.0-7.7 [facility] Comment on above: Performed By: #### L 3100.2300, L100.0100, L504.2610, L500.4050 ####[facility] [address] [place], [address] Basophils/100 WBC (Bld) 0.7 % Normal 0-1 [facility] Comment on above: Performed By: #### L 3100.2300, L100.0100, L504.2610, L500.4050 ####[facility] [address] [place], [address] Eosinophils/100 WBC (Bld) 2.0 % Normal 0-5 [facility] Comment on above: Performed By: #### L 3100.2300, L100.0100, L504.2610, L500.4050 ####[facility] [address] [place], [address] Erythrocyte distribution width (RBC) [Ratio] 14.0 % Normal 11.6-14.6 [facility] Comment on above: Performed By: #### L 3100.2300, L100.0100, L504.2610, L500.4050 ####[facility] [address] [place], [address] Hematocrit (Bld) [Volume fraction] 41.4 % Normal 40-54 [facility] Comment on above: Performed By: #### L 3100.2300, L100.0100, L504.2610, L500.4050 ####[facility] [address] [place], [address] Hemoglobin (Bld) [Mass/Vol] 13.8 g/dL Normal 13.0-16.5 [facility] Comment on above: Performed By: #### L 3100.2300, L100.0100, L504.2610, L500.4050 ####[facility] [address] [place], [address] IG% 0.500 Normal 0.0-0.9 [facility] Comment on above: Result Comment: IG% - Immature Granulocytes (promyelocytes, myelocytes andmetamyelocytes) > 1% indicates that a LEFT SHIFT is Present. Performed By: #### L 3100.2300, L100.0100, L504.2610, L500.4050 ####[facility] [address] [place], [address] Lymphocytes/100 WBC (Bld) 9.8 % Low 19-41 [facility] Comment on above: Performed By: #### L 3100.2300, L100.0100, L504.2610, L500.4050 ####[facility] [address] [place], [address] MCH (RBC) [Entitic mass] 30.7 pg Normal 27.0-32.0 [facility] Comment on above: Performed By: #### L 3100.2300, L100.0100, L504.2610, L500.4050 ####[facility] [address] [place], [address] MCHC (RBC) [Mass/Vol] 33.3 g/dL Normal 32-36 [facility] Comment on above: Performed By: #### L 3100.2300, L100.0100, L504.2610, L500.4050 ####[facility] [address] [place], [address] MCV (RBC) [Entitic vol] 92.2 fL Normal 80-94 [facility] Comment on above: Performed By: #### L 3100.2300, L100.0100, L504.2610, L500.4050 ####[facility] [address] [place], [address] Monocytes/100 WBC (Bld) 10.0 % Normal 0-10 [facility] Comment on above: Performed By: #### L 3100.2300, L100.0100, L504.2610, L500.4050 ####[facility] [address] [place], [address] Neutrophils/100 WBC (Bld) 77.0 % High 47-70 [facility] Comment on above: Performed By: #### L 3100.2300, L100.0100, L504.2610, L500.4050 ####[facility] [address] [place], [address] Nucleated RBC (Bld) [#/Vol] 0 10*3/uL Normal 0-5 [facility] Comment on above: Performed By: #### L 3100.2300, L100.0100, L504.2610, L500.4050 ####[facility] [address] [place], [address] Platelet mean volume (Bld) [Entitic vol] 9.1 fL Normal 6.2-12.0 [facility] Comment on above: Performed By: #### L 3100.2300, L100.0100, L504.2610, L500.4050 ####[facility] [address] [place], [address] Platelets (Bld) [#/Vol] 254 10*3/uL Normal 150-450 [facility] Comment on above: Performed By: #### L 3100.2300, L100.0100, L504.2610, L500.4050 ####[facility] [address] [place], [address] RBC (Bld) [#/Vol] 4.49 10*6/uL Low 4.6-6.2 [facility] Comment on above: Performed By: #### L 3100.2300, L100.0100, L504.2610, L500.4050 ####[facility] [address] [place], [address] RDW SD 47.3 fl High 35.1-43.9 [facility] Comment on above: Performed By: #### L 3100.2300, L100.0100, L504.2610, L500.4050 ####[facility] [address] [place], [address] WBC (Bld) [#/Vol] 6.0 10*3/uL Normal 4.4-11.0 [facility] Comment on above: Performed By: #### L 3100.2300, L100.0100, L504.2610, L500.4050 ####[facility] [address] [place], [address] Carbon dioxide, total [Moles /volume] in Central venous bloodOrdered By: Andre Quesada on 11-16-2024 CO2 [Moles/Vol] 23.0 mmol/L 21.0-32.0 [facility] Chloride assayOrdered By: Luzmaria Quesada on 11-16-2024 Chloride [Moles/Vol] 102 mmol/L 98-108 [facility] Comprehensive Metabolic Prof ilon 11-16-2024 Albumin [Mass/Vol] 4.2 g/dL Normal 3.4-4.8 [facility] Comment on above: Performed By: #### L 3100.2300, L100.0100, L504.2610, L500.4050 ####[facility] [address] [place], [address] Albumin/Globulin [Mass ratio] 1.4 {ratio} Normal 0.9-2.4 [facility] Comment on above: Performed By: #### L 3100.2300, L100.0100, L504.2610, L500.4050 ####[facility] [address] [place], [address] ALK PHOS 98 U/L Normal 40-129 [facility] Comment on above: Performed By: #### L 3100.2300, L100.0100, L504.2610, L500.4050 ####[facility] [address] [place], [address] ALT [Catalytic activity/Vol] 19 U/L Normal <=46 [facility] Comment on above: Performed By: #### L 3100.2300, L100.0100, L504.2610, L500.4050 ####[facility] [address] [place], [address] AST [Catalytic activity/Vol] 24 U/L Normal <=37 [facility] Comment on above: Performed By: #### L 3100.2300, L100.0100, L504.2610, L500.4050 ####[facility] [address] [place], [address] Bilirubin [Mass/Vol] 0.42 mg/dL Normal 0.00-1.30 [facility] Comment on above: Performed By: #### L 3100.2300, L100.0100, L504.2610, L500.4050 ####[facility] [address] [place], [address] BUN/CRE 24.6 RATIO High 10-20 [facility] Comment on above: Performed By: #### L 3100.2300, L100.0100, L504.2610, L500.4050 ####[facility] [address] [place], [address] Calcium [Mass/Vol] 9.1 mg/dL Normal 7.6-11.0 [facility] Comment on above: Performed By: #### L 3100.2300, L100.0100, L504.2610, L500.4050 ####[facility] [address] [place], [address] Chloride [Moles/Vol] 102 mmol/L Normal 98-108 [facility] Comment on above: Performed By: #### L 3100.2300, L100.0100, L504.2610, L500.4050 ####[facility] [address] [place], [address] CO2 [Moles/Vol] 23.0 mmol/L Normal 21.0-32.0 [facility] Comment on above: Performed By: #### L 3100.2300, L100.0100, L504.2610, L500.4050 ####[facility] [address] [place], [address] Creatinine [Mass/Vol] 1.04 mg/dL Normal 0.70-1.20 [facility] Comment on above: Performed By: #### L 3100.2300, L100.0100, L504.2610, L500.4050 ####[facility] [address] [place], [address] ECRCL 97.54 ml/min Normal 50-250 [facility] Comment on above: Performed By: #### L 3100.2300, L100.0100, L504.2610, L500.4050 ####[facility] [address] [place], [address] GAP 13 Normal 5-15 [facility] Comment on above: Performed By: #### L 3100.2300, L100.0100, L504.2610, L500.4050 ####[facility] [address] [place], [address] GFR/1.73 sq M.predicted among non-blacks MDRD (S/P/Bld) [Vol rate/Area] 79 mL/min/{1.73_m2} Normal >60 [facility] Comment on above: Result Comment: mL/m in/1.73m2 CKD-EPI Creatinine Equation (2020) Performed By: #### L 3100.2300, L100.0100, L504.2610, L500.4050 ####[facility] [address] [place], [address] Globulin (S) [Mass/Vol] 3.1 g/dL Normal 2.2-4.2 [facility] Comment on above: Performed By: #### L 3100.2300, L100.0100, L504.2610, L500.4050 ####[facility] [address] [place], [address] Glucose [Mass/Vol] 99 mg/dL Normal 70-99 [facility] Comment on above: Performed By: #### L 3100.2300, L100.0100, L504.2610, L500.4050 ####[facility] [address] [place], [address] Potassium [Moles/Vol] 4.3 mmol/L Normal 3.3-5.1 [facility] Comment on above: Performed By: #### L 3100.2300, L100.0100, L504.2610, L500.4050 ####[facility] [address] [place], [address] Sodium [Moles/Vol] 138 mmol/L Normal 133-145 [facility] Comment on above: Performed By: #### L 3100.2300, L100.0100, L504.2610, L500.4050 ####[facility] [address] [place], [address] T PROT 7.3 g/dL Normal 5.9-8.4 [facility] Comment on above: Performed By: #### L 3100.2300, L100.0100, L504.2610, L500.4050 ####[facility] [address] [place], [address] Urea nitrogen [Mass/Vol] 26 mg/dL High 4-19 [facility] Comment on above: Performed By: #### L 3100.2300, L100.0100, L504.2610, L500.4050 ####[facility] [address] [place], [address] Eosinophil percentageOrdered By: Andre Quesada on 11-16-2024 Eosinophils/100 WBC (Bld) 2.0 % 0-5 [facility] Erythrocyte distribution wid th ratioOrdered By: Andre Quesada on 11-16-2024 Erythrocyte distribution width (RBC) [Ratio] 14.0 % 11.6-14.6 [facility] Erythrocyte distribution wid th standard deviationOrdered By: Andre Quesada on 11-16-2024 Erythrocyte distribution width (RBC) [Entitic vol] 47.3 fL High 35.1-43.9 [facility] Estimation of creatinine barbie aranceOrdered By: Andre Quesada on 11-16-2024 Estimated Creatinine Clearance Calc 97.54 ml/min 50-250 [facility] GFR/1.73 sq M.predicted yamil g non-blacks MDRD (S/P/Bld) [Vol rate/Area]Ordered By: Andre Quesada on 11-16-2024 Estimated GFR (MDRD) Non-Af Amer 79 >60 [facility] Comment on above: mL/min/1.73m2 CKD-EP I Creatinine Equation (2020) Hematocrit Auto (Bld) [Volum e fraction]Ordered By: Andre Quesada on 11-16-2024 Hematocrit (Bld) [Volume fraction] 41.4 % 40-54 [facility] Hemoglobin measurementOrdere d By: Andre Quesada on 11-16-2024 Hemoglobin (Bld) [Mass/Vol] 13.8 g/dL 13.0-16.5 [facility] Immature granulocytes/100 WB C Auto (Bld)Ordered By: Andre Quesada on 11-16-2024 Immature granulocytes/100 WBC (Bld) 0.500 % 0.0-0.9 [facility] Comment on above: IG% - Immature Granu locytes (promyelocytes, myelocytes and metamyelocytes) > 1% indicates that a LEFT SHIFT is Present. LDHon 11-16-2024 LDH 238 U/L Normal 87-241 [facility] Comment on above: Order Comment: 1 Performed By: #### L 3100.2300, L100.0100, L504.2610, L500.4050 ####[facility] [id number] [place], [address] Laboratory - Chemistry and C hemistry - challengeOrdered By: Andre Quesada on 11-16-2024 AST [Catalytic activity/Vol] 24 U/L <38 [facility] Lactate dehydrogenase (LDH) measurementOrdered By: Andre Quesada on 11-16-2024 LDH [Catalytic activity/Vol] 238 U/L 87-241 [facility] Lymphocytes Auto (Unsp spec) [#/Vol]Ordered By: Andre Quesada on 11-16-2024 Lymphocytes (Bld) [#/Vol] 0.59 10*3/uL Low 0.83-4.51 [facility] Lymphocytes/100 WBC Auto (Un sp spec)Ordered By: Andre Quesada on 11-16-2024 Lymphocytes/100 WBC (Bld) 9.8 % Low 19-41 [facility] MCV (mean corpuscular volume ) determinationOrdered By: Andre Dipak on 11-16-2024 MCV (RBC) [Entitic vol] 92.2 fL 80-94 [facility] Mean corpuscular hemoglobin (MCH) determinationOrdered By: [facility] on 11-16-2024 MCH (RBC) [Entitic mass] 30.7 pg 27.0-32.0 [facility] Mean corpuscular hemoglobin concentration (MCHC) determinationOrdered By: [facility] on 11-16-2024 MCHC (RBC) [Mass/Vol] 33.3 g/dL 32-36 [facility] Mean platelet volume determi nationOrdered By: Andre Dipak on 11-16-2024 Platelet mean volume (Bld) [Entitic vol] 9.1 fL 6.2-12.0 [facility] Miscellaneous procedureOrder ed By: Andre Quesada on 11-16-2024 Miscellaneous Test Comment SEE SCANNED REPORT [facility] Monocyte percentageOrdered B y: [facility] on 11-16-2024 Monocytes/100 WBC (Bld) 10.0 % 0-10 [facility] NATERAon 11-16-2024 NATURA SEE SCANNED REPORT Normal [facility] Comment on above: Performed By: #### L 900.0098 ####[facility] [id number] [place], [address] Neutrophil percentageOrdered By: Andre Quesada on 11-16-2024 Neutrophils/100 WBC (Bld) 77.0 % High 47-70 [facility] Nucleated red blood cell per centageOrdered By: Andre Quesada on 11-16-2024 Nucleated RBC/100 WBC (Bld) [Ratio] 0 % 0-5 [facility] Platelet countOrdered By: Luzmaria Quesada on 11-16-2024 Platelets (Bld) [#/Vol] 254 10*3/uL 150-450 [facility] Potassium (Unsp spec) [Mass/ Vol]Ordered By: Andre Quesada on 11-16-2024 Potassium [Moles/Vol] 4.3 mmol/L 3.3-5.1 [facility] RBC Auto (Bld) [#/Vol]Ordere d By: Andre Quesada on 11-16-2024 RBC (Bld) [#/Vol] 4.49 10*6/uL Low 4.6-6.2 [facility] Serum creatinine measurement (mass/volume)Ordered By: Andre Quesada on 11-16-2024 Creatinine [Mass/Vol] 1.04 mg/dL 0.70-1.20 [facility] Serum globulin measurementOr dered By: Andre Quesada on 11-16-2024 Globulin (S) [Mass/Vol] 3.1 g/dL 2.2-4.2 [facility] Serum glucose measurement (m ass/volume)Ordered By: Andre Quesada on 11-16-2024 Glucose [Mass/Vol] 99 mg/dL 70-99 [facility] Serum or plasma alanine alvarez otransferase (ALT) measurementOrdered By: Andre Quesada on 11-16-2024 ALT [Catalytic activity/Vol] 19 U/L <47 [facility] Serum or plasma albumin wilner urement (mass/volume)Ordered By: Andre Quesada on 11-16-2024 Albumin [Mass/Vol] 4.2 g/dL 3.4-4.8 [facility] Serum or plasma albumin/glob ulin mass ratioOrdered By: Andre Quesada on 11-16-2024 Albumin/Globulin [Mass ratio] 1.4 {ratio} 0.9-2.4 [facility] Serum or plasma alkaline pat sphatase measurementOrdered By: Andre Quesada on 11-16-2024 ALP [Catalytic activity/Vol] 98 U/L 40-129 [facility] Serum or plasma calcium wilner urement (mass/volume)Ordered By: Andre Quesada on 11-16-2024 Calcium [Mass/Vol] 9.1 mg/dL 7.6-11.0 [facility] Serum or plasma urea nitroge n measurement (mass/volume)Ordered By: Andre Quesada on 11-16-2024 Urea nitrogen [Mass/Vol] 26 mg/dL High 4-19 [facility] Sodium levelOrdered By: Yg Quesada on 11-16-2024 Sodium [Moles/Vol] 138 mmol/L 133-145 [facility] Total proteinOrdered By: Jose Alfredo Quesada on 11-16-2024 Protein [Mass/Vol] 7.3 g/dL 5.9-8.4 [facility] White blood cell (WBC) count Ordered By: Andre Quesada on 11-16-2024 WBC (Bld) [#/Vol] 6.0 10*3/uL 4.4-11.0 [facility] CNPNon 11-10-2024 CNPN Telephone (JUAN) -- MIGUE GUNTER ([id number]) 1960 M Date Time Provider Department 11/10/24 ERNESTO AGUIAR During your visit today, we recorded the following information about you: Mary Kay Mitchell 11/10/2024 1:48 PM Signed The patient is calling to discuss the results of his CT scan. [phone] Maryann Maier, OLY 11/10/2024 2:29 PM Addendum Called and spoke with patient Advised of CT scans - no evidence of metastatic disease Patient appreciative of call, verbalized understanding Allergies As of Date: 11/10/2024 Noted Allergy Reaction APIXABAN 06/23/2019 14 - Other: See Comments SIMVASTATIN 06/16/2019 17 - Myalgia DOXYCYCLINE 06/16/2019 8 - GI Upset Date Reviewed: 10/24/2024 Reviewed by: Zenaida Conte RT(R) - Fully Assessed Reason for Visit: Results [95] Prescriptions as of 11/10/2024 - metFORMIN ER (GLUCOPHAGE XR) 500 mg 24 hr tablet Take 1 tablet at dinner for 2 weeks and then increase to 2 tablets. - oxyCODONE IR (ROXICODONE) 5 mg immediate release tablet Take 5 mg by mouth every 4 hours as needed. - sertraline (ZOLOFT) 50 mg tablet Take 50 mg by mouth once daily. - warfarin (COUMADIN) 3 mg tablet Take 3 mg by mouth once daily. - tirzepatide, weight loss (ZEPBOUND) 5 mg/0.5 mL pen injector Inject 5 mg subcutaneously one time a week. Patient should start on November 07, 2024. - tirzepatide, weight loss (ZEPBOUND) 2.5 mg/0.5 mL pen injector Inject 2.5 mg subcutaneously one time a week. - omeprazole (PRILOSEC) 20 mg capsule Take [...] 120 mg by mouth once daily. - Benazepril HCl 40 mg tablet Take 20 mg by mouth once daily. - atorvastatin (LIPITOR) 40 mg tablet Take 10 mg by mouth once daily. Problem List As Of Date 11/10/2024 Noted Resolved Personal history of colonic polyps [Z86.0100] 06/30/2016 Arthritis [M19.90] 10/10/2024 Asthma [J45.909] 10/10/2024 Calculus of kidney [N20.0] 11/18/2023 Cellulitis [L03.90] 10/10/2024 Degeneration of intervertebral disc of lumbar r*10/10/2024 Dyspnea on exertion [R06.09] 10/10/2024 Edema of lower extremity [R60.0] 10/10/2024 Essential (primary) hypertension [I10] 05/02/2024 Gastroesophageal reflux disease [K21.9] 04/13/2023 History of appendectomy [Z90.49] 10/10/2024 History of cardiac catheterization [Z98.890] 10/21/2018 History of inguinal hernia repair [Z98.890, Z87*10/10/2024 History of malignant neoplasm of rectum [Z85.04*07/24/2023 History of thromboembolism of vein [Z86.718] 10/10/2024 Hydroureter [N13.4] 10/10/2024 Hyperlipidemia [E78.5] 04/14/2023 Hypokalemia [E87.6] 09/21/2023 Hypophosphatemia [E83.39] 09/21/2023 Iron deficiency [E61.1] 12/25/2023 Inflammation of small intestine [K52.9] 07/24/2023 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 *02/15/2024 Chest pain [R07.9] 10/10/2024 Obstructive sleep apnea syndrome [G47.33] 09/15/2023 Paroxysmal atrial fibrillation (HCC) [I48.0] 12/12/2023 Pulmonary embolism (HCC) [I26.99] 06/10/2018 Rectal hemorrhage [K62.5] 05/11/2023 Rectal mass [K62.89] 05/10/2023 Sinusitis [J32.9] 10/10/2024 Spondylolisthesis of lumbar region [M43.16] 12/23/2023 Tendinitis of right shoulder [M77.8] 10/10/2024 Thyroid nodule [E04.1] 06/26/2023 Xeroderma [Q80.9] 10/10/2024 Obesity, Class III, BMI >= 40 [E66.01] 10/10/2024 Encounter Status:Closed by MARYANN MAIER on 11/10/24 [facility] normalized rat io (INR) calculationOrdered By: Watson Rodriguez on 11-07-2024 INR Coag (Bld) [Relative time] 2.1 {INR} [facility] Prothrombin Time w/INRon 02- 24-2025 INR Coag (PPP) [Relative time] 2.1 {INR} Normal [facility] Comment on above: Performed By: #### L 300.3900 ####[facility] [id number] [place], [place], [address] PT Coag (PPP) [Time] 24.1 s High 11.7-14.9 [facility] Comment on above: Performed By: #### L 300.3900 ####[facility] [id number] [place], [address] Prothrombin timeOrdered By: Watson Rodriguez on 11-07-2024 PT Coag (PPP) [Time] 24.1 s High 11.7-14.9 [facility] Office Visiton 11-04-2024 Follow-up visit [id number] Zay Gunter 1960 M Date Provider Department Center 11/04/2024 [id number]-YFEBIRUOCCHETNA SAUER [facility] [address] No family history on file Level of Service:84861 [place] OFFICE/OUTPATIENT ESTABLISHED MOD MDM 30 MIN Reason for Visit and Comments: 1 Month Follow Up [[id number]] Normal [facility] Progress Noteon 11-04-2024 Progress Note Well controlled. Con tinue benazepril. Normal [facility] Progress Note Compliant with CPAP. He is also working with a weight loss clinic at [facility]. Normal [facility] Progress Note S/p PVI 1 month ago. He is maintaining normal rhythm. He is appropriately anticoagulated with coumadin. INR's being monitored through [facility]. Normal [facility] Progress Note [facility] C[facility] - [place] [address] [facility] [id number] Dept: [phone] Dept Visit type: Established : 1960 Reason for Visit: 1 Month Follow Up Assessment and Plan 1. Paroxysmal atrial fibrillation (HCC) Assessment & Plan: S/p PVI 1 month ago. He is maintaining normal rhythm. He is appropriately anticoagulated with coumadin. INR's being monitored through [facility]. Orders: - ECG 12 lead - CLINIC PERFORMED 2. CORRINA (obstructive sleep apnea) Assessment & Plan: Compliant with CPAP. He is also working with a weight loss clinic at [facility]. 3. Primary hypertension Assessment & Plan: Well controlled. Continue benazepril. Follow up in about 2 months (around 01/02/2025) for Dr. Henry. Subjective Migue Gunter is a 64 y.o. male known to Dr Lr with a history of CORRINA/CPAP, HTN, HPL, rectal cancer s/p chemo/radiation, hx of PE on warfarin, paroxysmal atrial fibrillation. He was referred to Dr Henry for PVI consideration. On 10/04/24 he underwent successful ablation for atrial fibrillation with pulse field ablation of all four pulmonary veins and posterior wall isolation. He presents for follow up. He states he is doing well overall. Noticed a few episodes of atrial fibrillation not too long after the ablation but recently has not felt any episodes. He denies any groin pain or swelling post procedure. No bleeding concerns on warfarin. Review of Systems Constitutional: Negative for fatigue. HENT: Negative for nosebleeds. Respiratory: Negative for shortness of breath. Cardiovascular: Negative for chest pain and palpitations. Gastrointestinal: Negative for blood in stool. Genitourinary: Negative for hematuria. Musculoskeletal: Positive for back pain. Neurological: Negative for dizziness, syncope and light-headedness. Hematological: Does not bruise/bleed easily. No Known Allergies Outpatient Medications Prior to Visit Medication Sig Dispense Refill Aspirin Low Dose 81 MG EC tablet Take 81 mg by mouth daily. benazepril (Lotensin) 20 MG tablet Take 20 mg by mouth daily. cholecalciferol (Vitamin D-3) 50 MCG (2000 UT) tablet Take 2,000 Units by mouth in the morning. dilTIAZem CD (Cardizem CD) 300 MG 24 hr capsule Take 300 mg by mouth daily. furosemide (Lasix) 40 MG tablet Take 40 mg by mouth daily. metFORMIN (Glucophage) 500 MG tablet Take 500 mg by mouth daily (with breakfast). omeprazole OTC (PriLOSEC OTC) 20 MG EC tablet Take 20 mg by mouth every morning (before breakfast). Do not crush, chew, or split. sertraline (Zoloft) 50 MG tablet Take by mouth daily. warfarin (Coumadin) 3 MG tablet Take by mouth. Take as directed per After Visit Summary. oxyCODONE (Roxicodone) 5 MG immediate release tablet Take 5 mg by mouth every 4 hours as needed for severe pain (7-10). No facility-administered medications prior to visit. Past Medical History: Diagnosis Date Atrial flutter (HCC) DVT (deep venous thrombosis) (HCC) 2018 HTN (hypertension) Hyperlipemia Obese CORRINA on CPAP PAF (paroxysmal atrial fibrillation) (HCC) Pulmonary emboli (HCC) Social History Tobacco Use Smoking status: Not on file Smokeless tobacco: Not on file Substance Use Topics Alcohol use: Not on file Past Surgical History: Procedure Laterality Date APPENDECTOMY CARDIAC ELECTROPHYSIOLOGY PROCEDURE N/A 10/04/2024 Performed by Aylin Henry MD at [facility] Cardiac Cath/EP Lab [employer]IN[employer] PROGRAMMER REPORT (HISTORICAL) 2019 HERNIA REPAIR Left HIP ARTHROPLASTY No family history on file. Objective Vitals: 11/04/24 1304 BP: 132/60 BP Location: Left arm Patient Position: Sitting BP Cuff Size: Large adult Pulse: 81 SpO2: 96% Weight: (!) 301 lb (137 kg) Height: 5' 11 (1.803 m) Physical Exam Vitals reviewed. Constitutional: General: He is not in acute distress. Appearance: Normal appearance. He is obese. HENT: Head: Normocephalic and atraumatic. Cardiovascular: Rate and Rhythm: Normal rate and regular rhythm. Heart sounds: Normal heart sounds. No murmur heard. No friction rub. No gallop. Pulmonary: Effort: Pulmonary effort is normal. Breath sounds: Normal breath sounds. No wheezing, rhonchi or rales. Skin: General: Skin is warm and dry. Neurological: Mental Status: He is alert and oriented to person, place, and time. Data Reviewed and Summarized No results found for: EFBP, PLVEF, LVEFPHYS, LVEF2D, EF Review of tests/labs done/ordered within my specialty: EKG in office: See HPI Review of tests/labs done/ordered outside my specialty: Independent interpretation of tests: Chetna Solomon, RHEUMATOLOGIST - CLINICAL LAB SCIENTIST [facility] CT ABD/PEL W IVCONon 025 CT ABD/PEL W IVCON * * *Final Report* * * DATE OF EXAM: Oct 25 2024 11:36AM [facility] - CT ABD/PEL W IVCON / PROCEDURE REASON: Malignant neoplasm of rectum (HCC) * * * * Physician Interpretation * * * * EXAMINATION: CT ABDOMEN AND PELVIS WITH IV CONTRAST CLINICAL HISTORY: Rectal cancer. Examination for follow-up. TECHNIQUE: CT of the abdomen and pelvis was performed using standard technique, scanning from just above the dome of the diaphragm to the symphysis pubis. MQ: CTAP_3 Contrast: IV: 100 ml of Omnipaque 350 Oral: 10 ml of Omni 240 10-25ml diluted with water CT Radiation dose: Integrated Dose-length product (DLP) for this visit = 1802 mGy*cm. CT Dose Reduction Employed: Automated exposure control(AEC) and iterative recon COMPARISON: Rectal MRI 10/17/2024; 04/21/2024; CT abdomen/pelvis 04/14/2024, 11/11/2023 and 07/27/2023 RESULT: Liver: Unchanged atrophy of the left hepatic lobe. Diffuse hypodensity of the hepatic parenchyma is compatible with hepatic steatosis. Again noted are a few subcentimeter hypodensities (series 8, image 27 and 24), measuring up to 0.6 cm, unchanged and too small to characterize. No new or enlarging hepatic lesion. Biliary: No bile duct dilation. Gallbladder is unremarkable. Spleen: No mass. No splenomegaly. Pancreas: No mass or duct dilation. Adrenals: No mass. Kidneys: The kidneys enhance symmetrically. No suspicious renal mass. No collecting system dilatation. There is a 0.2 cm nonobstructive calculus within the interpolar left kidney (series 8, image 65). GI tract: The bowel is normal in caliber and without evidence of wall thickening or obstruction. There are scattered colonic diverticula, without associated inflammation. Known rectal neoplasm is better evaluated on the recently performed rectal MRI of 10/17/2024. Lymph nodes: No abdominal or pelvic lymphadenopathy. Unchanged nonspecific subcentimeter short axis retroperitoneal lymph nodes. Mesentery/Peritoneum: No ascites or mass. Retroperitoneum: No mass. Vasculature: - Abdominal aorta and iliac arteries: No aneurysm. - Celiac and SMA: Patent without stenosis. - Portal venous system (SMV, splenic vein, portal vein and branches): Patent. Stable attenuation of left hepatic lobe vasculature. - Hepatic veins: Incompletely opacified, likely due to early phase of enhancement. Pelvis: The rectum and prostate are unremarkable. Circumferential urinary bladder wall thickening, likely secondary to treatment related change. Bones/Soft Tissues: No destructive lytic or blastic osseous abnormality. Degenerative changes involve the left hip. Interval progressive healing of previously noted left proximal femur greater trochanter fracture. Lower thorax: A chest CT performed will be reported separately. Localizer images: No additional findings. IMPRESSION: 1. No abdominopelvic metastatic disease. 2. Since 04/14/2024, interval progressive healing of previously noted left proximal femur greater trochanter fracture. 3. Please refer to concurrently acquired and separately reported chest CT for findings related to the thorax. Transmission Builder: [facility] Transcribe Date/Time: Oct 25 2024 11:43A Dictated by : JAYNA NEVILLE MD This examination was interpreted and the report reviewed and electronically signed by: JAYNA NEVILLE MD on Oct 25 2024 12:19PM EST [id number] Normal [facility] CT Abdomen and Pelvis W cont rast Yancy 10-25-2024 IMPRESSION: 1. No abdominopelvic metastatic disease. 2. Since 04/14/2024, interval progressive healing of previously noted left proximal femur greater trochanter fracture. 3. Please refer to concurrently acquired and separately reported chest CT for findings related to the thorax. Transmission Builder: [facility] Transcribe Date/Time: Oct 25 2024 11:43A Dictated by : JAYNA NEVILLE MD This examination was interpreted and the report reviewed and electronically signed by: JAYNA NEVILLE MD on Oct 25 2024 12:19PM EST DIVISION OF RADIOLOGY * * *Final Report* * * DATE OF EXAM: Oct 25 2024 11:36AM [facility] 0530 - CT ABD/PEL W IVCON / PROCEDURE REASON: Malignant neoplasm of rectum (HCC) * * * * Physician Interpretation * * * * EXAMINATION: CT ABDOMEN AND PELVIS WITH IV CONTRAST CLINICAL HISTORY: Rectal cancer. Examination for follow-up. TECHNIQUE: CT of the abdomen and pelvis was performed using standard technique, scanning from just above the dome of the diaphragm to the symphysis pubis. MQ: CTAP_3 Contrast: IV: 100 ml of Omnipaque 350 Oral: 10 ml of Omni 240 10-25ml diluted with water CT Radiation dose: Integrated Dose-length product (DLP) for this visit = 1802 mGy*cm. CT Dose Reduction Employed: Automated exposure control(AEC) and iterative recon COMPARISON: Rectal MRI 10/17/2024; 04/21/2024; CT abdomen/pelvis 04/14/2024, 11/11/2023 and 07/27/2023 RESULT: Liver: Unchanged atrophy of the left hepatic lobe. Diffuse hypodensity of the hepatic parenchyma is compatible with hepatic steatosis. Again noted are a few subcentimeter hypodensities (series 8, image 27 and 24), measuring up to 0.6 cm, unchanged and too small to characterize. No new or enlarging hepatic lesion. Biliary: No bile duct dilation. Gallbladder is unremarkable. Spleen: No mass. No splenomegaly. Pancreas: No mass or duct dilation. Adrenals: No mass. Kidneys: The kidneys enhance symmetrically. No suspicious renal mass. No collecting system dilatation. There is a 0.2 cm nonobstructive calculus within the interpolar left kidney (series 8, image 65). GI tract: The bowel is normal in caliber and without evidence of wall thickening or obstruction. There are scattered colonic diverticula, without associated inflammation. Known rectal neoplasm is better evaluated on the recently performed rectal MRI of 10/17/2024. Lymph nodes: No abdominal or pelvic lymphadenopathy. Unchanged nonspecific subcentimeter short axis retroperitoneal lymph nodes. Mesentery/Peritoneum: No ascites or mass. Retroperitoneum: No mass. Vasculature: - Abdominal aorta and iliac arteries: No aneurysm. - Celiac and SMA: Patent without stenosis. - Portal venous system (SMV, splenic vein, portal vein and branches): Patent. Stable attenuation of left hepatic lobe vasculature. - Hepatic veins: Incompletely opacified, likely due to early phase of enhancement. Pelvis: The rectum and prostate are unremarkable. Circumferential urinary bladder wall thickening, likely secondary to treatment related change. Bones/Soft Tissues: No destructive lytic or blastic osseous abnormality. Degenerative changes involve the left hip. Interval progressive healing of previously noted left proximal femur greater trochanter fracture. Lower thorax: A chest CT performed will be reported separately. Localizer images: No additional findings. DIVISION OF RADIOLOGY Provider, [facility] - 10/25/2024 * * *Final Report* * * DATE OF EXAM: Oct 25 2024 11:36AM [facility] 0530 - CT ABD/PEL W IVCON / PROCEDURE REASON: Malignant neoplasm of rectum (HCC) * * * * Physician Interpretation * * * * EXAMINATION: CT ABDOMEN AND PELVIS WITH IV CONTRAST CLINICAL HISTORY: Rectal cancer. Examination for follow-up. TECHNIQUE: CT of the abdomen and pelvis was performed using standard technique, scanning from just above the dome of the diaphragm to the symphysis pubis. MQ: CTAP_3 Contrast: IV: 100 ml of Omnipaque 350 Oral: 10 ml of Omni 240 10-25ml diluted with water CT Radiation dose: Integrated Dose-length product (DLP) for this visit = 1802 mGy*cm. CT Dose Reduction Employed: Automated exposure control(AEC) and iterative recon COMPARISON: Rectal MRI 10/17/2024; 04/21/2024; CT abdomen/pelvis 04/14/2024, 11/11/2023 and 07/27/2023 RESULT: Liver: Unchanged atrophy of the left hepatic lobe. Diffuse hypodensity of the hepatic parenchyma is compatible with hepatic steatosis. Again noted are a few subcentimeter hypodensities (series 8, image 27 and 24), measuring up to 0.6 cm, unchanged and too small to characterize. No new or enlarging hepatic lesion. Biliary: No bile duct dilation. Gallbladder is unremarkable. Spleen: No mass. No splenomegaly. Pancreas: No mass or duct dilation. Adrenals: No mass. Kidneys: The kidneys enhance symmetrically. No suspicious renal mass. No collecting system dilatation. There is a 0.2 cm nonobstructive calculus within the interpolar left kidney (series 8, image 65). GI tract: The bowel is normal in caliber and without evidence of wall thickening or obstruction. There are scattered colonic diverticula, without associated inflammation. Known rectal neoplasm is better evaluated on the recently performed rectal MRI of 10/17/2024. Lymph nodes: No abdominal or pelvic lymphadenopathy. Unchanged nonspecific subcentimeter short axis retroperitoneal lymph nodes. Mesentery/Peritoneum: No ascites or mass. Retroperitoneum: No mass. Vasculature: - Abdominal aorta and iliac arteries: No aneurysm. - Celiac and SMA: Patent without stenosis. - Portal venous system (SMV, splenic vein, portal vein and branches): Patent. Stable attenuation of left hepatic lobe vasculature. - Hepatic veins: Incompletely opacified, likely due to early phase of enhancement. Pelvis: The rectum and prostate are unremarkable. Circumferential urinary bladder wall thickening, likely secondary to treatment related change. Bones/Soft Tissues: No destructive lytic or blastic osseous abnormality. Degenerative changes involve the left hip. Interval progressive healing of previously noted left proximal femur greater trochanter fracture. Lower thorax: A chest CT performed will be reported separately. Localizer images: No additional findings. IMPRESSION IMPRESSION: 1. No abdominopelvic metastatic disease. 2. Since 04/14/2024, interval progressive healing of previously noted left proximal femur greater trochanter fracture. 3. Please refer to concurrently acquired and separately reported chest CT for findings related to the thorax. Transmission Builder: PSCB Transcribe Date/Time: Oct 25 2024 11:43A Dictated by : JAYNA NEVILLE MD This examination was interpreted and the report reviewed and electronically signed by: JAYNA NEVILLE MD on Oct 25 2024 12:19PM EST [facility] CT Abdomen and Pelvis W cont rast IVOrdered By: Ccf Provider on 10-25-2024 [facility] CT CHEST W IVCONon CT CHEST W IVCON * * *Final Report* * * DATE OF EXAM: Oct 25 2024 11:36AM [facility] 0539 - CT CHEST W IVCON / PROCEDURE REASON: Malignant neoplasm of rectum (HCC) * * * * Physician Interpretation * * * * EXAMINATION: CHEST CT WITH CONTRAST CLINICAL HISTORY: Rectal adenocarcinoma Technique: Spiral CT acquisition of the chest from the thoracic inlet to the upper abdomen following IV contrast. MQ: CTCW_6 Contrast: 100 mL Omnipaque [address] Radiation dose: Integrated Dose-length product (DLP) for this visit = 1802 mGy*cm CT Dose Reduction Employed: Automated exposure control(AEC) and iterative recon Comparison: 04/14/2024 RESULT: Limitations: None. Lines, tubes, and devices: Right chest port terminates in the right atrium. Lung parenchyma and airways: A 2 mm nodule is noted close to the right major fissure, likely a lymph node, image 106. Linear bands of atelectasis/scarring are noted bilaterally. There is mild central and peripheral bronchial wall thickening. Pleural space: No pleural effusion. No pleural thickening. Lower neck, lymph nodes, and mediastinum: The imaged thyroid gland is normal. No lymphadenopathy in the supraclavicular, axillary, mediastinal, or hilar regions. Nonspecific thickening of the distal esophagus may be secondary to underdistention or reflux disease. Heart, pericardium, and thoracic vessels: The thoracic aorta and main pulmonary artery are normal in caliber. The cardiac chambers are remarkable for left atrial enlargement. No coronary artery atherosclerotic calcifications are noted, although the study is not optimized for coronary assessment. No pericardial effusion or thickening. Bones and soft tissues: No destructive bone lesion. Chest wall is unremarkable. Mild degenerative changes are noted in the thoracic spine. Upper abdomen: Images of the abdomen and pelvis are dictated separately. Localizer images: No additional findings. The greater trochanteric fracture of the left femur identified on the abdominal CT is not clearly visible on the [employer] image. - IMPRESSION: Stable CT examination with no compelling evidence of intrathoracic metastatic disease. Transmission Builder: CLAUS Transcribe Date/Time: Oct 25 2024 11:46A Dictated by : JT JOHANSEN MD This examination was interpreted and the report reviewed and electronically signed by: JT JOHANSEN MD on Oct 25 2024 11:54AM EST [id number] Normal [facility] CT Chest W contrast Yancy IMPRESSION: Stable CT examination with no compelling evidence of intrathoracic metastatic disease. Transmission Builder: [facility] Transcribe Date/Time: Oct 25 2024 11:46A Dictated by : JT JOHANSEN MD This examination was interpreted and the report reviewed and electronically signed by: JT JOHANSEN MD on Oct 25 2024 11:54AM EST DIVISION OF RADIOLOGY * * *Final Report* * * DATE OF EXAM: Oct 25 2024 11:36AM [facility] 0539 - CT CHEST W IVCON / PROCEDURE REASON: Malignant neoplasm of rectum (HCC) * * * * Physician Interpretation * * * * EXAMINATION: CHEST CT WITH CONTRAST CLINICAL HISTORY: Rectal adenocarcinoma Technique: Spiral CT acquisition of the chest from the thoracic inlet to the upper abdomen following IV contrast. MQ: CTCW_6 Contrast: 100 mL Omnipaque [address] Radiation dose: Integrated Dose-length product (DLP) for this visit = 1802 mGy*cm CT Dose Reduction Employed: Automated exposure control(AEC) and iterative recon Comparison: 04/14/2024 RESULT: Limitations: None. Lines, tubes, and devices: Right chest port terminates in the right atrium. Lung parenchyma and airways: A 2 mm nodule is noted close to the right major fissure, likely a lymph node, image 106. Linear bands of atelectasis/scarring are noted bilaterally. There is mild central and peripheral bronchial wall thickening. Pleural space: No pleural effusion. No pleural thickening. Lower neck, lymph nodes, and mediastinum: The imaged thyroid gland is normal. No lymphadenopathy in the supraclavicular, axillary, mediastinal, or hilar regions. Nonspecific thickening of the distal esophagus may be secondary to underdistention or reflux disease. Heart, pericardium, and thoracic vessels: The thoracic aorta and main pulmonary artery are normal in caliber. The cardiac chambers are remarkable for left atrial enlargement. No coronary artery atherosclerotic calcifications are noted, although the study is not optimized for coronary assessment. No pericardial effusion or thickening. Bones and soft tissues: No destructive bone lesion. Chest wall is unremarkable. Mild degenerative changes are noted in the thoracic spine. Upper abdomen: Images of the abdomen and pelvis are dictated separately. Localizer images: No additional findings. The greater trochanteric fracture of the left femur identified on the abdominal CT is not clearly visible on the [employer] image. - DIVISION OF RADIOLOGY Provider, [facility] - 10/25/2024 * * *Final Report* * * DATE OF EXAM: Oct 25 2024 11:36AM [facility] 0539 - CT CHEST W IVCON / PROCEDURE REASON: Malignant neoplasm of rectum (HCC) * * * * Physician Interpretation * * * * EXAMINATION: CHEST CT WITH CONTRAST CLINICAL HISTORY: Rectal adenocarcinoma Technique: Spiral CT acquisition of the chest from the thoracic inlet to the upper abdomen following IV contrast. MQ: CTCW_6 Contrast: 100 mL Omnipaque [address] Radiation dose: Integrated Dose-length product (DLP) for this visit = 1802 mGy*cm CT Dose Reduction Employed: Automated exposure control(AEC) and iterative recon Comparison: 04/14/2024 RESULT: Limitations: None. Lines, tubes, and devices: Right chest port terminates in the right atrium. Lung parenchyma and airways: A 2 mm nodule is noted close to the right major fissure, likely a lymph node, image 106. Linear bands of atelectasis/scarring are noted bilaterally. There is mild central and peripheral bronchial wall thickening. Pleural space: No pleural effusion. No pleural thickening. Lower neck, lymph nodes, and mediastinum: The imaged thyroid gland is normal. No lymphadenopathy in the supraclavicular, axillary, mediastinal, or hilar regions. Nonspecific thickening of the distal esophagus may be secondary to underdistention or reflux disease. Heart, pericardium, and thoracic vessels: The thoracic aorta and main pulmonary artery are normal in caliber. The cardiac chambers are remarkable for left atrial enlargement. No coronary artery atherosclerotic calcifications are noted, although the study is not optimized for coronary assessment. No pericardial effusion or thickening. Bones and soft tissues: No destructive bone lesion. Chest wall is unremarkable. Mild degenerative changes are noted in the thoracic spine. Upper abdomen: Images of the abdomen and pelvis are dictated separately. Localizer images: No additional findings. The greater trochanteric fracture of the left femur identified on the abdominal CT is not clearly visible on the [employer] image. - IMPRESSION IMPRESSION: Stable CT examination with no compelling evidence of intrathoracic metastatic disease. Transmission Builder: [facility] Transcribe Date/Time: Oct 25 2024 11:46A Dictated by : JT JOHANSEN MD This examination was interpreted and the report reviewed and electronically signed by: JT JOHANSEN MD on Oct 25 2024 11:54AM EST [facility] No Panel Informationon 10-25 Radiology Study observation (narrative) [facility] [place] 10-24-2024 MARY Telephone (CORSMN) -- MIGUE GUNTER ([id number]) 1960 M Date Time Provider Department 10/24/24 MARYANN MAIER During your visit today, we recorded the following information about you: Maryann Maier, OLY 10/24/2024 9:38 AM Signed Called and spoke with patient Advised of MDT recommendations from meeting 10/21 Overall clinical assessment: No evidence of tumor [...] MRI response with no sign for a viable tumor. Flex sig scheduled in December 2024 for surveillance Allergies As of Date: 10/24/2024 Noted Allergy Reaction APIXABAN 06/23/2019 14 - Other: See Comments SIMVASTATIN 06/16/2019 17 - Myalgia DOXYCYCLINE 06/16/2019 8 - GI Upset Date Reviewed: 10/17/2024 Reviewed by: Lucio Rodriguez APRN.CLINICAL LAB SCIENTIST - Fully Assessed Prescriptions as of 10/24/2024 - metFORMIN ER (GLUCOPHAGE XR) 500 mg 24 hr tablet Take 1 tablet at dinner for 2 weeks and then increase to 2 tablets. - oxyCODONE IR (ROXICODONE) 5 mg immediate release tablet Take 5 mg by mouth every 4 hours as needed. - sertraline (ZOLOFT) 50 mg tablet Take 50 mg by mouth once daily. - warfarin (COUMADIN) 3 mg tablet Take 3 mg by mouth once daily. - tirzepatide, weight loss (ZEPBOUND) 5 mg/0.5 mL pen injector Inject 5 mg subcutaneously one time a week. Patient should start on November 07, 2024. - tirzepatide, weight loss (ZEPBOUND) 2.5 mg/0.5 mL pen injector Inject 2.5 mg subcutaneously one time a week. - omeprazole (PRILOSEC) 20 mg capsule Take [...] 120 mg by mouth once daily. - Benazepril HCl 40 mg tablet Take 20 mg by mouth once daily. - atorvastatin (LIPITOR) 40 mg tablet Take 10 mg by mouth once daily. 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*10/10/2024 Dyspnea on exertion [R06.09] 10/10/2024 Edema of lower extremity [R60.0] 10/10/2024 Essential (primary) hypertension [I10] 05/02/2024 Gastroesophageal reflux disease [K21.9] 04/13/2023 History of appendectomy [Z90.49] 10/10/2024 History of cardiac catheterization [Z98.890] 10/21/2018 History of inguinal hernia repair [Z98.890, Z87*10/10/2024 History of malignant neoplasm of rectum [Z85.04*07/24/2023 History of thromboembolism of vein [Z86.718] 10/10/2024 Hydroureter [N13.4] 10/10/2024 Hyperlipidemia [E78.5] 04/14/2023 Hypokalemia [E87.6] 09/21/2023 Hypophosphatemia [E83.39] 09/21/2023 Iron deficiency [E61.1] 12/25/2023 Inflammation of small intestine [K52.9] 07/24/2023 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 *02/15/2024 Chest pain [R07.9] 10/10/2024 Obstructive sleep apnea syndrome [G47.33] 09/15/2023 Paroxysmal atrial fibrillation (HCC) [I48.0] 12/12/2023 Pulmonary embolism (HCC) [I26.99] 06/10/2018 Rectal hemorrhage [K62.5] 05/11/2023 Rectal mass [K62.89] 05/10/2023 Sinusitis [J32.9] 10/10/2024 Spondylolisthesis of lumbar region [M43.16] 12/23/2023 Tendinitis of right shoulder [M77.8] 10/10/2024 Thyroid nodule [E04.1] 06/26/2023 Xeroderma [Q80.9] 10/10/2024 Obesity, Class III, BMI >= 40 [E66.01] 10/10/2024 Encounter Status:Closed by MARYANN MAIER on 10/24/24 Normal [facility] International normalized rat io (INR) calculationOrdered By: Jt Bird on 10-19-2024 INR Coag (Bld) [Relative time] 1.8 {INR} [facility] Prothrombin Time w/INRon INR Coag (PPP) [Relative time] 1.8 {INR} Normal [facility] Comment on above: Order Comment: UTO F ROM PORT Performed By: #### L 300.3900 ####[facility] [id number] [place], [place], [id number] PT Coag (PPP) [Time] 21.4 s High 11.7-14.9 [facility] Comment on above: Order Comment: UTO F ROM PORT Performed By: #### L 300.3900 ####[facility] [id number] [place], [address] Prothrombin timeOrdered By: Jt Bird on 10-19-2024 PT Coag (PPP) [Time] 21.4 s High 11.7-14.9 [facility] MRI RECTUM WO/W IVCONon 02-0 MRI RECTUM WO/W IVCON * * *Final Report* * * DATE OF EXAM: Oct 17 2024 1:00PM [facility] 0754 - MRI RECTUM WO/W IVCON / PROCEDURE REASON: Malignant neoplasm of rectum (HCC) * * * * Physician Interpretation * * * * MRI OF THE PELVIS WITHOUT AND WITH CONTRAST: RECTAL CANCER RESTAGING CLINICAL HISTORY: Rectal Cancer RESTAGING Pretreatment Tumor Staging: T3 N1 Rectal tumor histology: Adenocarcinoma Prior chemotherapy or radiation: Yes chemoradiation completed completed 07/07/2023 and CORKY completed 08/25/2024 Other: N/A COMPARISON: MRI 04/21/2024, 11/04/2023 TECHNIQUE: Magnet: Siemens Altea 1.5T scanner. Multiplanar MRI with multiple sequences before and after contrast. Contrast: IV: 10 ml of Elucirem Rectal: 60 ml of Surgilube RESULT: TREATED PRIMARY TUMOR CHARACTERISTICS (Compare to pre-treatment): DWI (with associated low ADC) ? restricted diffusion and low ADC in tumor or tumor bed: Absent. MRI-T2W: Dark T2 signal/scar and T2 bright mucin. T2 bright mucin (cannot distinguish between cellular and acellular mucin): Present. Description: Similar-appearing mixed T2 dark scarring and T2 bright mucin with eccentric thickening of the left lateral wall (4:36). Distance of the inferior margin of treated tumor to the anal verge: 3.3 cm (2:18) Distance of the inferior margin to the top of sphincter complex/anorectal junction: 0 cm (2:18) Relationship to anterior peritoneal reflection: Below Craniocaudal length: 3.7 cm (7:8) Pre-treatment craniocaudal length: 6.6 cm Tumor location: Low rectum (0-5 cm) Maximal wall thickness: 0.7 cm (6:18) Pre-treatment wall thickness: 1.1 cm Invasion of anal sphincter complex: Abuts internal sphincter (IAS) without definite invasion. Anal canal involvement: None. TUMOR DEPOSITS AND EXTRAMURAL VASCULAR INVASION (EMVI): Tumor deposits:(separate from metastatic lymph nodes): No. EMVI: No (none evident pre-treatment). MESORECTAL FASCIA (MRF): Shortest distance of extraluminal part of the tumor to MRF: Tumor does not extend into the mesorectal fat. Tumor extension through the peritonealized portion of the rectum into peritoneal fat: No extension into peritoneal fat. Is there a separate tumor deposit, LN or EMVI threatening (?1mm and ?2 mm) or invading (< 1 mm) the MRF? No. Comments: N/A T4 disease interval change: N/A POST-TREATMENT TUMOR REGRESSION: mrTRG: Grade 2 - Good response LYMPH NODES: Mesorectal/superior rectal lymph nodes and/or tumor deposits: N0 (no visible lymph nodes/deposits or only < 5 mm short axis) Index nodes: Suspicious extra mesorectal lymph nodes: None. OTHER STRUCTURES/ ORGANS INVOLVED: none OTHER FINDINGS: * Left inguinal hernia repair. Stable fat-containing right inguinal hernia. * Stable widening of the pubic symphysis with fluid. * Decreased conspicuity of previously noted left sacral wing enhancing focus, now 3 mm (20:25). The study was reviewed with Dr. Torres a member of the rectal cancer multidisciplinary tumor board. IMPRESSION: Stable size of the low rectal tumor with mucin. No pelvic lymphadenopathy. Decreased size and conspicuity of the indeterminate left sacral lesion. Since 04/21/2024, post treatment primary tumor assessment: Complete/near complete response. mrTRG: Grade 2 - Good response Suspicious Mesorectal lymph nodes: No. Suspicious Extramesorectal lymph nodes: No. Transmission Builder: PSCB Transcribe Date/Time: Oct 17 2024 1:12P Dictated by : TADEO GARAY, This examination was interpreted and the report reviewed and electronically signed by: OSEAS TORRES MD on Oct 18 2024 9:13AM EST [id number] Normal [facility] CNOVon 10-10-2024 CNOV Office Visit (BMIREJ ) -- MIGUE GUNTER ([id number]) 1960 M Date Time Provider Department 10/10/24 10:30 AM [facility] During your visit today, we recorded the following information about you: Pulse Blood pressure Weight Height 88/minute 139/72 135.7 kg 1.803 m Lucio Rodriguez APRN.CLINICAL LAB SCIENTIST 10/10/2024 11:22 AM Signed BMI Obesity Medicine Consult October 10, 2024 Consultation requested by Ernesto Aguiar MD for an opinion regarding Obesity. My final recommendations will be communicated back to the requesting physician by way of shared Medical record or letter to requesting physician via [place] mail. Patient Summary: Migue Gunter is a 64 year old male with obesity who presents to the [facility] [place] for an initial evaluation of his obesity and is interested in non-surgical weight loss approaches. Primary reason for wanting obesity treatment : Reduction of cancer risk Overall goal: 220 lbs Weight History: He reports a family history of obesity and early onset weight gain. He states his weight gain is related to the following factors, including reduced physical activity, consumption of unhealthy foods, and inadequate sleep duration. Weight Graph: (please see graph scanned in chart) Medications: NA Weight Promoting Medications: SSRI Diet: Quality of diet: 24hr recall suggests unhealthy diet. Characterization of diet:Unstructured, increased consumption of sugar sweetened beverages, and skip meals. 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 Eating Disorder no B: skips or egg sandwich L: doesn't pack lunch, eats out subway or BBQ D:chili Snacks: popcorn or crackers Beverages:water and pop 2 regular per week. Diet History: Past weight loss attempts? self-directed. Increased physical activity. Low-sodium diet. Exercise: Regular exercise: No Strength/resistance exercise:No Barriers to regular exercise? Back pain Work-related activity:Sedentary. ?Sleep: Duration: 7 hours. CORRINA YES ; CPAP YES Quality:adequate, Few awakenings :Sleep-wake cycle disruption:No. Take naps. Wakes: 6 am Bedtime: 9 pm ??Stress: Some, Cause:Work Obesity Related Comorbidities: Prior Weight Loss Surgery:No ACTIVE PROBLEM LIST Personal History of Colonic Polyps PAST SURGICAL HISTORY Procedure Laterality Date COLONOSCOPY FLX DX W/COLLJ SPEC WHEN PFRMD PAST SURGICAL HISTORY OF 1990 herniated bowel PAST SURGICAL HISTORY OF [facility] PAST SURGICAL HISTORY OF Left 1970 left hip displacement Obesity ROS/ FHx GEN: Fatigue:Yes CV: h/o palpitations/cardiac arrhythmia, CP:Yes, afib with ablation last week. On coumadin. PULM: Asthma:Yes, hx of pulmonary embolism GI: GERD:Yes; Gallstones: Yes; Fatty liver disease:Yes; H/o hernia:Yes, inguinal, herniated bowel Rectal cancer MSK: Joint Pain:Yes, right hip arthritis, Spinal stenosis : Nephrolithiasis:Yes; Stress incontinence:No Thyroid nodules, has been told he has had some high blood sugars NEURO: Migraines/DOMÍNGUEZ:No; H/o seizures: No Glaucoma:No; Cataracts No Symptoms of pseudotumor cerebri:No The physical systems reviewed reveal no pathological symptoms that are pertinent to this visit Family History Problem Relation Age of Onset Cancer Paternal Uncle lung Coronary Artery Disease Maternal Grandmother Allergies Sister Ischemic Heart Disease Mother Diabetes Mother Hypertension Mother Aneurysm Father No Known Problems Brother Heart disease Paternal Grandmother PREV: PAP n/a, Mammogram n/a and Colonoscopy UTD Social History Social History Tobacco Use Smoking status: Never Smokeless tobacco: Never Substance Use Topics Alcohol use: Yes Comment: little Drug use: No 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 NAD. Central adiposity. Waist circumference not measured. No acanthosis, no lipoma, no pallor. No supraclavicular adiposity. No dorsal adiposity. PERRL. Tongue moist, pink. + OP crowding. Good dental hygiene RRR nl. s1s2 CTAB Abdomen Soft Protuberant ; No striae. NT/ND. No peripheral edema Results: reviewed with the patient Appointment on 09/13/2024 Component Date Value Ref Range Status Creatinine 09/13/2024 0.98 0.73 - 1.22 mg/dL Final Estimated Glomerular Filtration Ra* 09/13/2024 85 >=60 mL/min/1.73m? Final Impression: Migue Gunter is a 64 year old male with Class III obesity (There is no height or weight on file to calculate BMI.) who has early onset obesity with gradual weight gain. The causes of his obesity are multifactorial, biological, psychological and social and environmental. Specific factors include a genetic component related to a strong family of obesity, exposure to weight gain promoting medication(s) , increased consumpt (more content not included)... Normal [facility] ECG 12-LEADon 10-05-2024 ECG 12-LEAD IMPRESSION: Sinus rhythm Prolonged NH interval Electronically Signed On 10-05-2024 11:47:13 EST by Tung Lopez Normal [facility] BASIC METABOLIC PANELon 09-15 Anion gap [Moles/Vol] 10 mmol/L Normal - [facility] Comment on above: Performed By: #### L [id number] #### Custom Bike Builder: DEANNA CORREA ([id number]) [facility] ([facility]) [address] [place] [address] Calcium [Mass/Vol] 8.9 mg/dL Normal 8.8-10.0 [facility] Comment on above: Performed By: #### L AB15 #### Custom Bike Builder: DEANNA CORREA ([id number]) [facility] ([facility] [address] [place] [address] Chloride [Moles/Vol] 110 mmol/L High 98-107 [facility] Comment on above: Performed By: #### L AB15 #### Custom Bike Builder: DEANNA CORREA ([id number]) [facility] ([facility] [address] [place] [address] [place] CO2 [Moles/Vol] 17 mmol/L Low 23-31 [facility] Comment on above: Performed By: #### L AB15 #### Custom Bike Builder: DEANNA CORREA ([id number]) [facility] ([facility] [address] [place] [address] Creatinine [Mass/Vol] 0.95 mg/dL Normal 0.72-1.25 [facility] Comment on above: Performed By: #### L AB15 #### Custom Bike Builder: DEANNA CORREA ([id number]) [facility] ([facility]) [address] [place] [address] GLOMERULAR FILTRATION RATE ML/MIN/1.73 SQ M.PREDICTED 88.3 mL/min/1.73m*2 Normal >60.0 [facility] Comment on above: Result Comment: Calc ulation based on the Chronic Kidney Disease Epidemiology Collaboration (CKD-EPI) equation refit without adjustment for race ORDER COMMENTS: Moderately Hemolyzed. Interpret with caution. Performed By: #### L AB15 #### Custom Bike Builder: DEANNA CORREA ([id number]) [facility] ([facility]) [address] [place] [address] [place] Glucose [Mass/Vol] 106 mg/dL Normal 82-115 [facility] Comment on above: Performed By: #### L AB15 #### Custom Bike Builder: DEANNA CORREA ([id number]) [facility] ([facility] [address] [place] [address] [place] Potassium [Moles/Vol] 5.1 mmol/L Normal 3.5-5.1 [facility] Comment on above: Result Comment: TC Significant interference from hemolysis. Result integrity compromised. Interpret with caution. Performed By: #### L AB15 #### Custom Bike Builder: DEANNA CORREA ([phone]) [facility] ([facility]) [address] [place] [address] Sodium [Moles/Vol] 137 mmol/L Normal 136-145 [facility] Comment on above: Performed By: #### L AB15 #### Custom Bike Builder: DEANNA CORREA ([id number]) [facility] ([facility]) [address] [place] [address] Urea nitrogen [Mass/Vol] 25 mg/dL High 9-23 [facility] Comment on above: Performed By: #### L AB15 #### Custom Bike Builder: DEANNA CORREA ([id number]) [facility] ([facility]) [address] [place] [address] Basic metabolic 1998 panelon 10-04-2024 Anion gap [Moles/Vol] 10 mmol/L 3 - 13 mmol/L [facility] Calcium [Mass/Vol] 8.9 mg/dL 8.8 - 10. 0 mg/dL [facility] Chloride [Moles/Vol] 110 mmol/L High 98 - 10 7 mmol/L [facility] CO2 [Moles/Vol] 17 mmol/L Low 23 - 31 mmol/L [facility] Creatinine [Mass/Vol] 0.95 mg/dL 0.72 - 1.25 mg/dL [facility] GFR/1.73 sq M.predicted (S/P/Bld) [Vol rate/Area] 88.3 mL/min - PINF [facility] Comment on above: Calculation based on the Chronic Kidney Disease Epidemiology Collaboration (CKD-EPI) equation refit without adjustment for race Glucose [Mass/Vol] 106 mg/dL 82 - 115 mg/dL [facility] Interpretation and review of laboratory results Abnormal [facility] Potassium [Moles/Vol] 5.1 mmol/L 3.5 - 5.1 mmol/L [facility] Comment on above: TC Significant interference from hemolysis. Result integrity compromised. Interpret with caution. Sodium [Moles/Vol] 137 mmol/L 136 - 145 mmol/L [facility] Urea nitrogen [Mass/Vol] 25 mg/dL High 9 - 23 mg/dL [facility] Moderately Hemolyzed . Interpret with caution. [facility] Electrophysiology studyon Successful ablation for atrial fibrillation with pulse field ablation of all four pulmonary veins and posterior wall isolation. The patient tolerated the procedure well with no immediate complications. Plan: 1. Transfer to PACU for observation 2. Bedrest for 2.5 hours post-sheath pull, then ambulate as tolerated 3. Resume anticoagulation. 4. Cont current home meds as prescribed 5. Discharge home this afternoon pending above Procedure Details Procedure: Atrial Fibrillation Ablation with PFA Assistants: None Catheters or Drains: Not Applicable Specimens: Not Applicable Estimated Blood Loss: < 10mL Complications: None Procedure Description: The indications, risks, benefits, alternatives, and details of the procedure were explained to the patient who expressed understanding of the risks including but are not limited to: pain, bleeding, and infection for which the risk is less than 1%. More serious risks, including cardiac perforation and tamponade, vascular trauma, pulmonary vein stenosis, atrio-esophageal fistula, diaphragmatic paralysis, life-threatening arrhythmia, need for permanent pacemaker, stroke, heart attack, and/or , for which the overall risk ranges 0.1-1%. After all questions were answered, the patient provided informed and written consent. The pt was brought to the EP lab in the fasting state. The presenting rhythm was normal sinus. Access was obtained in the right femoral vein using the modified Seldinger technique with the aid of ultrasound. Three sheaths (8Fr, 8.5Fr, 8.5Fr) were placed in the right femoral vein.A Owusu CS catheter was placed in the CS. An ICE transducer was advanced into the right atrium via the sheath in the right femoral vein. Echocardiography was used to guide the transseptal puncture, guide positioning of the ablation tip electrode at the target sites and monitor for complications. No pericardial effusion noted pre or post ablation. The sheath in the right femoral vein was exchanged over a wire for a Versacross Faradrive sheath. Heparin was given prior to transseptal puncture. A transseptal access was performed using a Versacross needle assembly and sheath was advanced into the left atrium. Additional heparin boluses were given to maintain an ACT between 300-400 sec throughout the procedure. A left atrial voltage map was constructed using Eden and an Grand Marsh mapping catheter which showed no significant areas of low voltage (scar). PV potentials were present at the antrum of all four PVs. Atropine was given to avoid vagal events during ablation. A Farwave catheter was used for ablation. Isolation of all 4 PVs was achieved with eight applications in each vein (4 flower, 4 basket). Post ablation, the Grand Marsh catheter showed continued signals in the RSPV and a narrow channel of healthy tissue on the posterior wall. An additional eight applications were given in the RSPV and two applications in four locations were given on the posterior wall to isolate it. Protamine was given to reverse the heparin. All catheters and sheaths were removed and Vascade devices were used for hemostasis. [facility] Electrophysiology studyOrder ed By: Aylin Henry on 10-04-2024 [facility] Work Phone: No Panel Informationon 10-04 Interpretation and review of laboratory results Abnormal [facility] POCT ACT 382 [facility] Performed by: [facility], [address] [place] [address] CLIA ID: [id number] [facility] Interpretation and review of laboratory results Abnormal [facility] POCT ACT 406 [facility] Performed by: [facility], [address] [place] [address] CLIA ID: [id number] [facility] Nursing Noteon 10-04-2024 Nursing Note Pt ambulated in [address] with supervision. Right groin dressing remains dry and intact. Normal [facility] Progress Noteon 10-04-2024 Progress Note Patient seen in prep and recovery s/p PVI + PW. Resting comfortably in bed without complaints. Right groin stable without hematoma. Post-PVI restrictions reviewed. Ambulation after 2 1/2 hours of bedrest. If groin remains stable after ambulation, plan for discharge home. Follow up with Chetna Solomon APRN in one month. Remain on uninterrupted anticoagulation unless otherwise instructed by our office. [facility] 36on 10-03-2024 36 Patient called in, inquiring about medications instructions. I read the RN's note to take no morning meds. Patient had not further questions and verbalized understanding. [facility] 36on 09-30-2024 36 INR 2.6 on 09/27/24 [facility] 36on 09-29-2024 36 Caitlyn from [facility] INR 2.7, protime 29.5 09/20/24. [facility] 36 Faxed stat request f or INR results from [place] outpatient lab. Will await response. [facility] 36 Spoke to RN at [facility] o [facility]. Last INR result they have is 09-20-24. Reached out to [facility] via fax request for INR results. [place] [address]on 09-28-2024 36 Patient collected IN R yesterday, will wait for results. [facility] 36on 09-27-2024 36 INR order faxed to [facility] lab [phone] [facility] 36 INR order placed [facility] International normalized rat io (INR) calculationon 09-27-2024 INR Coag (Bld) [Relative time] 2.6 {INR} [facility] Laboratory - CoagulationOrde red By: Peter Pabon on 09-27-2024 INR Coag (PPP) [Relative time] 2.6 {INR} Abnormal 0.9 - 1.1 [facility] No Panel InformationOrdered By: Peter Pabon on 09-27-2024 Interpretation and review of laboratory results Abnormal [facility] Prothrombin Time w/INRon INR Coag (PPP) [Relative time] 2.6 {INR} Normal [facility] Comment on above: Performed By: #### L 300.3900 ####[facility] [address] [place], [place], [id number] PT Coag (PPP) [Time] 28.3 s High 11.7-14.9 [facility] Comment on above: Performed By: #### L 300.3900 ####[facility] [address] [place], [place], [id number] Prothrombin timeon PT Coag (PPP) [Time] 28.3 s High 11.7-14.9 [facility] MIGUE GUNTER ([id number]) 1960 M Date Time Provider Department 09/26/24 ERNESTO AGUIAR During your visit today, we recorded the following information about you: Mary Kay Mitchell 09/26/2024 8:50 AM Signed The patient is calling to discuss some rectal bleeding and the passing some blood clots on Thursday. He also wants to discuss having his imaging done locally. [phone] Mrayann Maier, OLY 09/26/2024 5:16 PM Signed Called and spoke with patient On Watch and wait protocol AM bowel movement was WNL, PM bowel movement had small amount of blood. Has had completely normal BMs since that time. Advised that he proceed with imaging, most recent scope a few weeks ago was WNL, so not too concerned with one episode of bleeding but w his history if it occurs again he should call the office and we can get him in for an exam Imaging can be done locally,w ill ask schedulers to call him to schedule Allergies As of Date: 09/26/2024 (No Known Allergies) Date Reviewed: 05/17/2024 Reviewed by: Ernesto Aguiar MD - Fully Assessed Reason for Visit: Patient Update [1234] Prescriptions as of 09/26/2024 - omeprazole (PRILOSEC) 20 mg capsule Take [...] once daily. Problem List As Of Date 09/26/2024 Noted Resolved Personal history of colonic polyps [Z86.0100] 06/30/2016 Encounter Status:Closed by MARYANN MAIER on 09/26/24 Normal [facility] Stress Reporton 09-23-2024 Stress Report Normal [facility] 36on 09-22-2024 36 Suspect chloride lev el of 4 on BMP is an error. Will redraw. Normal [facility] 36on 09-21-2024 36 Therapeutic at 2.7. Need to make sure he gets another INR drawn on 09/27. [facility] 36 Received INR results for patient on 09-20-24. KM reviewed will have MA's enter into chart. Normal [facility] 36on 09-20-2024 36 Spoke to patient, he has had INR's done at [facility] outpatient lab. Sent request to obtain those weekly results from 09-05-24 on going. Fax request sent [phone] [facility] 36 Patient requesting l abs be sent to [facility] outpatient lab. I faxed those over [phone] Left patient VM, to inquire INR results. Normal [facility] Absolute neutrophil countOrd ered By: Josh Lr on 09-20-2024 Neutrophils (Bld) [#/Vol] 4.1 10*3/uL 2.0-7.7 [facility] Basic Metabolic Profile (BMP )on 09-20-2024 BUN/CRE 22.3 RATIO High 10-20 [facility] Comment on above: Performed By: #### L 500.2500, L100.0100 ####[facility] [address] [place], [address] CA,Total 8.9 mg/dL Normal 8.5-10.1 [facility] Comment on above: Performed By: #### L 500.2500, L100.0100 ####[facility] [address] [place], [address] Chloride [Moles/Vol] 108 mmol/L High 98-107 [facility] Comment on above: Performed By: #### L 500.2500, L100.0100 ####[facility] [address] [place], [address] CO2 [Moles/Vol] 28.0 mmol/L Normal 21.0-32.0 [facility] Comment on above: Performed By: #### L 500.2500, L100.0100 ####[facility] [address] [place], [address] Creatinine [Mass/Vol] 1.03 mg/dL Normal 0.70-1.30 [facility] Comment on above: Result Comment: The validity of the calculated GFR GFRAA in patients over70 years has not been determined. Clinical correlation isessential. Performed By: #### L 500.2500, L100.0100 ####[facility] [address] [place], [address] EST GFR - AA 93 mL/min Normal >60 [facility] Comment on above: Result Comment: Afri can Nigerien GFR Calc Performed By: #### L 500.2500, L100.0100 ####[facility] [address] [place], [address] GAP 4 Low 5-15 [facility] Comment on above: Performed By: #### L 500.2500, L100.0100 ####[facility] [address] [place], [address] GFR/1.73 sq M.predicted among non-blacks MDRD (S/P/Bld) [Vol rate/Area] 77 mL/min/{1.73_m2} Normal >60 [facility] Comment on above: Result Comment: Non- GFR Calc Performed By: #### L 500.2500, L100.0100 ####[facility] [address] [place], [address] Glucose [Mass/Vol] 108 mg/dL High 74-106 [facility] Comment on above: Result Comment: Fast ing Glucose result from 100 to 125 mg/dLsuggests IMPAIRED HOMEOSTASIS per A.D.A. criteria. Performed By: #### L 500.2500, L100.0100 ####[facility] [address] [place], [address] Potassium [Moles/Vol] 3.8 mmol/L Normal 3.5-5.1 [facility] Comment on above: Performed By: #### L 500.2500, L100.0100 ####[facility] [address] [place], [address] Sodium [Moles/Vol] 141 mmol/L Normal 136-145 [facility] Comment on above: Performed By: #### L 500.2500, L100.0100 ####[facility] [address] [place], [address] Urea nitrogen [Mass/Vol] 23 mg/dL High 7-18 [facility] Comment on above: Performed By: #### L 500.2500, L100.0100 ####[facility] [address] [place], [address] Basophil percentageOrdered B y: Josh Lr on 09-20-2024 Basophils/100 WBC (Bld) 0.5 % 0-1 [facility] Blood urea nitrogen (BUN)/cr eatinine ratioOrdered By: Josh Lr on 09-20-2024 Urea nitrogen/Creatinine [Mass ratio] 22.3 mg/mg High 10-20 [facility] CBC W/Diff, Automatedon -2024 Absolute Lymph 0.60 X10 3/uL Low 0.83-4.51 [facility] Comment on above: Performed By: #### L 500.2500, L100.0100 ####[facility] [address] [place], [address] Absolute Neut 4.1 X10 3/uL Normal 2.0-7.7 [facility] Comment on above: Performed By: #### L 500.2500, L100.0100 ####[facility] [address] [place], [address] Basophils/100 WBC (Bld) 0.5 % Normal 0-1 [facility] Comment on above: Performed By: #### L 500.2500, L100.0100 ####[facility] [address] [place], [address] Eosinophils/100 WBC (Bld) 3.8 % Normal 0-5 [facility] Comment on above: Performed By: #### L 500.2500, L100.0100 ####[facility] [address] [place], [address] Erythrocyte distribution width (RBC) [Ratio] 14.3 % Normal 11.6-14.6 [facility] Comment on above: Performed By: #### L 500.2500, L100.0100 ####[facility] [address] [place], [address] Hematocrit (Bld) [Volume fraction] 41.5 % Normal 40-54 [facility] Comment on above: Performed By: #### L 500.2500, L100.0100 ####[facility] [address] [place], [address] Hemoglobin (Bld) [Mass/Vol] 13.2 g/dL Normal 13.0-16.5 [facility] Comment on above: Performed By: #### L 500.2500, L100.0100 ####[facility] [address] [place], [address] IG% 0.500 Normal 0.0-0.9 [facility] Comment on above: Result Comment: IG% - Immature Granulocytes (promyelocytes, myelocytes andmetamyelocytes) > 1% indicates that a LEFT SHIFT is Present. Performed By: #### L 500.2500, L100.0100 ####[facility] [address] [place], [address] Lymphocytes/100 WBC (Bld) 10.9 % Low 19-41 [facility] Comment on above: Performed By: #### L 500.2500, L100.0100 ####[facility] [address] [place], [address] MCH (RBC) [Entitic mass] 29.7 pg Normal 27.0-32.0 [facility] Comment on above: Performed By: #### L 500.2500, L100.0100 ####[facility] [address] [place], [address] MCHC (RBC) [Mass/Vol] 31.8 g/dL Low 32-36 [facility] Comment on above: Performed By: #### L 500.2500, L100.0100 ####[facility] [address] [place], [address] MCV (RBC) [Entitic vol] 93.5 fL Normal 80-94 [facility] Comment on above: Performed By: #### L 500.2500, L100.0100 ####[facility] [address] [place], [address] Monocytes/100 WBC (Bld) 9.8 % Normal 0-10 [facility] Comment on above: Performed By: #### L 500.2500, L100.0100 ####[facility] [address] [place], [address] Neutrophils/100 WBC (Bld) 74.5 % High 47-70 [facility] Comment on above: Performed By: #### L 500.2500, L100.0100 ####[facility] [address] [place], [address] Nucleated RBC (Bld) [#/Vol] 0 10*3/uL Normal 0-5 [facility] Comment on above: Performed By: #### L 500.2500, L100.0100 ####[facility] [address] [place], [address] Platelet mean volume (Bld) [Entitic vol] 9.2 fL Normal 6.2-12.0 [facility] Comment on above: Performed By: #### L 500.2500, L100.0100 ####[facility] [address] [place], [address] Platelets (Bld) [#/Vol] 261 10*3/uL Normal 150-450 [facility] Comment on above: Performed By: #### L 500.2500, L100.0100 ####[facility] [address] [place], [address] RBC (Bld) [#/Vol] 4.44 10*6/uL Low 4.6-6.2 [facility] Comment on above: Performed By: #### L 500.2500, L100.0100 ####[facility] [address] [place], [address] RDW SD 49.2 fl High 35.1-43.9 [facility] Comment on above: Performed By: #### L 500.2500, L100.0100 ####[facility] [address] [place], [address] WBC (Bld) [#/Vol] 5.5 10*3/uL Normal 4.4-11.0 [facility] Comment on above: Performed By: #### L 500.2500, L100.0100 ####[facility] [address] [place], [address] Carbon dioxide measurementOr dered By: Josh Lr on 09-20-2024 CO2 [Moles/Vol] 28.0 mmol/L 21.0-32.0 [facility] Chest PA and Lateralon 09-20 Chest PA and Lateral Normal [facility] Chloride measurementOrdered By: Josh Lr on 09-20-2024 Chloride [Moles/Vol] 108 mmol/L High 98-107 [facility] Eosinophil percentageOrdered By: Josh Lr on 09-20-2024 Eosinophils/100 WBC (Bld) 3.8 % 0-5 [facility] Erythrocyte distribution wid th ratioOrdered By: Josh Lr on 09-20-2024 Erythrocyte distribution width (RBC) [Ratio] 14.3 % 11.6-14.6 [facility] Erythrocyte distribution wid th standard deviationOrdered By: Josh Lr on 09-20-2024 Erythrocyte distribution width (RBC) [Entitic vol] 49.2 fL High 35.1-43.9 [facility] Estimated glomerular filtrat ion rate (GFR) AmericanOrdered By: Josh Lr on 09-20-2024 Estimated GFR (MDRD) Amer 93 mL/min >60 [facility] Comment on above: GFR Calc Glomerular filtration rate ( GFR) estimationOrdered By: Josh Lr on 09-20-2024 Estimated GFR (MDRD) Non-Af Amer 77 mL/min >60 [facility] Comment on above: Non- GFR Calc Glucose measurementOrdered B y: Josh Lr on 09-20-2024 Glucose [Mass/Vol] 108 mg/dL High 74-106 [facility] Comment on above: Fasting Glucose resu lt from 100 to 125 mg/dL suggests IMPAIRED HOMEOSTASIS per A.D.A. criteria. Hematocrit Auto (Bld) [Volum e fraction]Ordered By: Josh Lr on 09-20-2024 Hematocrit (Bld) [Volume fraction] 41.5 % 40-54 [facility] Hemoglobin measurementOrdere d By: Josh Lr on 09-20-2024 Hemoglobin (Bld) [Mass/Vol] 13.2 g/dL 13.0-16.5 [facility] Immature granulocytes/100 WB C Auto (Bld)Ordered By: Josh Lr on 09-20-2024 Immature granulocytes/100 WBC (Bld) 0.500 % 0.0-0.9 [facility] Comment on above: IG% - Immature Granu locytes (promyelocytes, myelocytes and metamyelocytes) > 1% indicates that a LEFT SHIFT is Present. International normalized rat io (INR) calculationOrdered By: Watson Rodriguez on 09-20-2024 INR Coag (Bld) [Relative time] 2.7 {INR} [facility] Lymphocytes Auto (Unsp spec) [#/Vol]Ordered By: Josh Lr on 09-20-2024 Lymphocytes (Bld) [#/Vol] 0.60 10*3/uL Low 0.83-4.51 [facility] Lymphocytes/100 WBC Auto (Un sp spec)Ordered By: Josh Lr on 09-20-2024 Lymphocytes/100 WBC (Bld) 10.9 % Low 19-41 [facility] MCV (mean corpuscular volume ) determinationOrdered By: Josh Lr on 09-20-2024 MCV (RBC) [Entitic vol] 93.5 fL 80-94 [facility] Mean corpuscular hemoglobin (MCH) determinationOrdered By: Josh Lr on 09-20-2024 MCH (RBC) [Entitic mass] 29.7 pg 27.0-32.0 [facility] Mean corpuscular hemoglobin concentration (MCHC) determinationOrdered By: Josh Lr on 09-20-2024 MCHC (RBC) [Mass/Vol] 31.8 g/dL Low 32-36 [facility] Mean platelet volume determi nationOrdered By: Josh Lr on 09-20-2024 Platelet mean volume (Bld) [Entitic vol] 9.2 fL 6.2-12.0 [facility] Monocyte percentageOrdered B y: Josh Lr on 09-20-2024 Monocytes/100 WBC (Bld) 9.8 % 0-10 [facility] Neutrophil percentageOrdered By: Josh Lr on 09-20-2024 Neutrophils/100 WBC (Bld) 74.5 % High 47-70 [facility] Nucleated red blood cell per centageOrdered By: Jsoh Lr on 09-20-2024 Nucleated RBC/100 WBC (Bld) [Ratio] 0 % 0-5 [facility] Platelet countOrdered By: Dani Lr on 09-20-2024 Platelets (Bld) [#/Vol] 261 10*3/uL 150-450 [facility] Potassium measurementOrdered By: Josh Lr on 09-20-2024 Potassium [Moles/Vol] 3.8 mmol/L 3.5-5.1 [facility] Prothrombin Time w/INRon INR Coag (PPP) [Relative time] 2.7 {INR} Normal [facility] Comment on above: Order Comment: Comme nts: STANDING ORDER: Fax to [phone] Performed By: #### L 300.3900 ####[facility] [address] [place], [place], [id number] PT Coag (PPP) [Time] 29.5 s High 11.7-14.9 [facility] Comment on above: Order Comment: Comme nts: STANDING ORDER: Fax to [phone] Performed By: #### L 300.3900 ####[facility] [address] [place], [place], [address] Prothrombin timeOrdered By: Watson Rodriguez on 09-20-2024 PT Coag (PPP) [Time] 29.5 s High 11.7-14.9 [facility] RBC Auto (Bld) [#/Vol]Ordere d By: Josh Lr on 09-20-2024 RBC (Bld) [#/Vol] 4.44 10*6/uL Low 4.6-6.2 [facility] Serum anion gap measurementO rdered By: Josh Lr on 09-20-2024 Anion gap [Moles/Vol] 4 mmol/L Low 5-15 [facility] Serum or plasma calcium wilner urement (mass/volume)Ordered By: Josh Lr on 09-20-2024 Calcium [Mass/Vol] 8.9 mg/dL 8.5-10.1 [facility] Serum or plasma creatinine m easurement (mass/volume)Ordered By: Josh Lr on 09-20-2024 Creatinine [Mass/Vol] 1.03 mg/dL 0.70-1.30 [facility] Comment on above: The validity of the calculated GFR & GFRAA in patients over 70 years has not been determined. Clinical correlation is essential. Serum or plasma urea nitroge n measurement (mass/volume)Ordered By: Josh Lr on 09-20-2024 Urea nitrogen [Mass/Vol] 23 mg/dL High 7-18 [facility] Sodium levelOrdered By: Gabriella Lr on 09-20-2024 Sodium [Moles/Vol] 141 mmol/L 136-145 [facility] White blood cell (WBC) count Ordered By: Josh Lr on 09-20-2024 WBC (Bld) [#/Vol] 5.5 10*3/uL 4.4-11.0 [facility] 36on 09-19-2024 36 LVM for patient requ esting update on INR status Normal [facility] 36 See message below fr om me. Do we have weekly INR's on him? Where is he getting them drawn? Normal [facility] CNOVon 09-13-2024 CNOV Office Visit ([facility] ) -- MIGUE GUNTER ([id number]) 1960 M Date Time Provider Department 09/13/24 8:15 AM [facility] your visit today, we recorded the following information about you: Ernesto Aguiar MD 09/13/2024 8:42 AM Signed COLORECTAL SURGERY Follow-up September 08, 2024 Chief complaint: rectaql cancer HPI: Migue Gunter is a 64-year-old year old male with a history of [...] to undergo watch and wait protocol. He had MRI and CT scans in April 2024 - all stable, no evidence of metastatic disease or recurrence. Flex sig in April as well was WNL. He is here today for surveillance scope, imaging due in Oct 2024. Colonoscopy due in Oct 2024 . 05.20.2024 MDT Discussion: recent MRI shows complete MRI response with no sign for a cancerous mass. Clinical Trial Candidate: No 9 flex sig Findings: The perianal and digital rectal examinations were normal aside from hemorrhoids The entire examined colon appeared normal. No evidence of recurrence Impression: - The entire examined colon is normal. - No specimens collected. 04/21/2024 MRI rectum Addendum to update the impression of the [...] Wait) Discussion: Good endoscopic and radiologic response. 3 flex sig Findings: The perianal and digital [...] the thorax. 07/27/23 CT ABD/PEL IMPRESSION: No (more content not included)... Normal [facility] CREATININE Don 09-13-2024 Creatinine [Mass/Vol] 0.98 mg/dL Normal 0.73-1.22 [facility] Comment on above: Order Comment: Speci men Type: BLOOD SPECIMENOrdering Facility: [facility] Address: [address] [place] [address] [place] [address] Performed By: #### C RET1 ####[facility] [id number] [place] [address] [place] [facility] Creatinine and Glomerular filtration rate.predicted panel (S/P/Bld) 85 mL/min/1.73m??? Normal >=60 [facility] Comment on above: Order Comment: Speci men Type: BLOOD SPECIMENOrdering Facility: [facility] Address: [facility] [place] [address] Result Comment: Laureen mated Glomerular Filtration Rate [...] accurately reflect actual GFR. Performed By: #### C RET1 ####[facility] [id number] [address] [place] Flexible Sigmoidoscopyon Flexible sigmoidoscopy [facility] Cancer Gastrointestinal Endoscopy Patient Name: Migue Gunter Procedure Date: 09/13/2024 7:18 AM Date of : 1960 Admit Type: Ambulatory Age: 64 Room: [place] [address] ([place] [address]) Gender: Male Note Status: Finalized Attending MD: Ernesto Aguiar MD, [id number] Procedure: Flexible Sigmoidoscopy Indications: High risk colon cancer surveillance: Personal history of rectal cancer Providers: Ernesto Aguiar MD Patient Profile: This [...] Patient identification and proposed procedure were verified by the physician and the nurse in the pre-procedure area in the procedure room. Mental Status Examination: [...] introduced through the anus and advanced to 20 cm from the anal verge. I was present and participated during the entire procedure, including non-donovan portions, and during the administration and monitoring of Moderate Sedation. The flexible sigmoidoscopy was accomplished without difficulty. The patient tolerated the procedure well. The quality of the bowel preparation was Not given. Moderate Sedation: No sedation was administered for this procedure. Findings: The perianal and digital rectal examinations were normal. Pertinent negatives include no palpable rectal lesions. The entire examined colon appeared normal. Impression: - The entire examined colon is normal. - No specimens collected. Recommendation: - Use fiber, for example Citrucel, Fibercon, Konsyl or Metamucil. - The patient is not currently taking 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 or antiplatelet agents and therefore does not require instructions for their resumption. Procedure Code(s): --- Professional --- 74135 CPT copyright 2020 [employer]. All rights reserved. The codes documented in this report are preliminary and upon radiologist review may be revised to meet current compliance requirements. Attending Participation: I personally performed the entire procedure. Scope In: Scope Out: MD Ernesto Mckeon MD 09/13/2024 8:32:50 AM This report has been signed electronically by Ernesto Aguiar MD Number of Addenda: 0 Note Initiated On: 09/13/2024 7:18 AM Estimated Blood Loss: Estimated blood loss: none. Normal [facility] Flexible sigmoidoscopy study on 09-13-2024 [facility] Cancer Gastrointestinal Endoscopy Patient Name: Migue Gunter Procedure Date: 09/13/2024 7:18 AM Date of : 1960 Admit Type: Ambulatory Age: 64 Room: Room 209 (CA3-209) Gender: Male Note Status: Finalized Attending MD: Ernesto Aguiar MD, [id number] Procedure: Flexible Sigmoidoscopy Indications: High risk colon cancer surveillance: Personal history of rectal cancer Providers: Ernesto Aguiar MD Patient Profile: This [...] Patient identification and proposed procedure were verified by the physician and the nurse in the pre-procedure area in the procedure room. Mental Status Examination: [...] introduced through the anus and advanced to 20 cm from the anal verge. I was present and participated during the entire procedure, including non-donovan portions, and during the administration and monitoring of Moderate Sedation. The flexible sigmoidoscopy was accomplished without difficulty. The patient tolerated the procedure well. The quality of the bowel preparation was Not given. Moderate Sedation: No sedation was administered for this procedure. Findings: The perianal and digital rectal examinations were normal. Pertinent negatives include no palpable rectal lesions. The entire examined colon appeared normal. Impression: - The entire examined colon is normal. - No specimens collected. Recommendation: - Use fiber, for example Citrucel, Fibercon, Konsyl or Metamucil. - The patient is not currently taking 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 or antiplatelet agents and therefore does not require instructions for their resumption. Procedure Code(s): --- Professional --- 35910 CPT copyright 2020 [employer]. All rights reserved. The codes documented in this report are preliminary and upon radiologist review may be revised to meet current compliance requirements. Attending Pa (more content not included)... PROVATION [facility] Radiology Study observation (narrative) [facility] 36on 09-06-2024 36 No auth needed for P (AF) Ablation CPT 13391/85593 per Traditional Medicare and [employer] Medicare Supplement Guidelines [facility] 36 Can I have an auth f or PVI 10-04-24? [facility] 29on 09-05-2024 29 Addended by: CHETNA JACINTO on: 09/22/2024 08:36 AM Modules accepted: Orders [facility] 36on 09-05-2024 36 Case request placed. Prep for proc complete. [facility] 36 Educated Patient abo ut PVI on 10/04/[address] Henry. Arrive at [facility] Main Entrance at [address], and then take the East Elevators to the 1st floor [facility] where you will check in. The hospital will call you the day prior to procedure to give you your arrival time. If you do not receive a call by 5:30 pm the day prior, call Assistant Front Office Manager at [phone]. Netting Inspector parking is available for free day of procedure, please plan accordingly. Nothing to eat or drink after midnight the night before procedure Hold all morning medications on the day of procedure. Someone must drive patient to and from procedure Please get lab work done 2 weeks prior to procedure Any questions please call Lisa at [phone] [facility] Office Visiton 09-05-2024 Follow-up visit [id number] Zay Gunter 1960 M Date Provider Department Center 09/05/2024 [facility] [address] No family history on file Level of Service:96714 [place] OFFICE/OUTPATIENT NEW MODERATE MDM 45 MINUTES Reason for Visit and Comments: New Patient [542] Normal [facility] Progress Noteon 09-05-2024 Progress Note [facility] Cardiology Note Chief Complaint: Chief Complaint Patient presents with New Patient History of Present Illness: Migue Gunter is a 64 y.o. male presents for evaluation of atrial fibrillation. Is very pleasant gentleman with 6 years of atrial fibrillation initially the paroxysms were much less bothersome and much less frequent. He is in sinus rhythm today, he reports that on recent pulmonary visit he was in atrial fibrillation, and he has symptoms of intermittent palpitation without chest pain or significant shortness of breath. No lightheadedness presyncope or syncope. He has CPAP for sleep apnea. No obvious triggers as the events appear to be quite random. He has never had a cardioversion. His rate control and anticoagulation strategy includes diltiazem and warfarin. He has not been on antiarrhythmic drug. Records are reviewed. Ejection fraction from summer 2022 was normal with normal left atrial size. BMI is 34. 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 Social History Allergies: No Known Allergies Medications: Current Outpatient Medications: Aspirin Low Dose 81 MG EC tablet, Take 81 mg by mouth daily., Disp: , Rfl: benazepril (Lotensin) 20 MG tablet, Take 20 mg by mouth daily., Disp: , Rfl: cholecalciferol (Vitamin D-3) 50 MCG (1999) tablet, Take 2,000 Units by mouth in the morning., Disp: , Rfl: dilTIAZem CD (Cardizem CD) 300 MG 24 hr capsule, Take 300 mg by mouth daily., Disp: , Rfl: furosemide (Lasix) 40 MG tablet, Take 40 mg by mouth daily., Disp: , Rfl: omeprazole OTC (PriLOSEC OTC) 20 MG EC tablet, Take 20 mg by mouth every morning (before breakfast). Do not crush, chew, or split., Disp: , Rfl: oxyCODONE (Roxicodone) 5 MG immediate release tablet, Take 5 mg by mouth every 4 hours as needed for severe pain (7-10)., Disp: , Rfl: sertraline (Zoloft) 50 MG tablet, Take by mouth daily., Disp: , Rfl: warfarin (Coumadin) 3 MG tablet, Take by mouth. Take as directed per After Visit Summary. (Patient taking differently: Take 8 mg by mouth. Take as directed per After Visit Summary.), Disp: , Rfl: metoprolol tartrate (Lopressor) 25 MG tablet, Take by mouth 2 times daily. (Patient not taking: Reported on 09/05/2024), Disp: , Rfl: Review of Systems: Review of Systems Constitutional: Negative. HENT: Negative. Eyes: Negative. Respiratory: Positive for apnea. Cardiovascular: Positive for palpitations. Gastrointestinal: Negative. Endocrine: Negative. Genitourinary: Negative. Musculoskeletal: Negative. Skin: Negative. Allergic/Immunologic: Negative. Neurological: Negative. Hematological: Negative. Psychiatric/Behavioral: Negative. Physical Examination: Vitals: Vitals: 09/05/24 0956 BP: 120/80 BP Location: Right arm Patient Position: Sitting BP Cuff Size: Large adult Pulse: 72 SpO2: 95% Weight: 244 lb (111 kg) Height: 5' 11 (1.803 m) Body mass index is 34.03 kg/m?. Physical Exam Vitals reviewed. Constitutional: Appearance: Normal appearance. HENT: Head: Normocephalic. Right Ear: External ear normal. Left Ear: External ear normal. Nose: Nose normal. Mouth/Throat: Mouth: Mucous membranes are moist. Eyes: Pupils: Pupils are equal, round, and reactive to light. Cardiovascular: Rate and Rhythm: Normal rate and regular rhythm. Heart sounds: No murmur heard. Pulmonary: Effort: No respiratory distress. Musculoskeletal: General: Normal range of motion. Right lower leg: No edema. Left lower leg: No edema. Skin: General: Skin is warm and dry. Coloration: Skin is not jaundiced. Neurological: General: No focal deficit present. Mental Status: He is alert. Cranial Nerves: No cranial nerve deficit. Motor: No weakness. Psychiatric: Mood and Affect: Mood normal. Behavior: Behavior normal. Thought Content: Thought content normal. Judgment: Judgment normal. Laboratory Tests: No results found for: WBC, HGB, HCT, MCV, PLT No results found for: GLUCOSE, CALCIUM, NA, K, CO2, CL, BUN, CREATININE @LASTCMP@ No results found for: CHLPL, CHOL No results found for: TRIG No results found for: HDL No results found for: LDLCALC Assessment and Plan: Atrial fibrillation: Paroxysmal occurring in the setting of a structurally normal heart and at least as of last summer, normal left atrial size. He has increased risk of stroke he is anticoagulated with warfarin without bleeding issues. At this point his paroxysms are worsening in (more content not included)... Normal [facility] International normalized rat io (INR) calculationOrdered By: Watson Rodriguez on 08-24-2024 INR Coag (Bld) [Relative time] 2.3 {INR} [facility] Prothrombin Time w/INRon INR Coag (PPP) [Relative time] 2.3 {INR} Normal [facility] Comment on above: Performed By: #### L 300.3900 ####[facility] [address] [place], [place], [phone] PT Coag (PPP) [Time] 25.2 s High 11.7-14.9 [facility] Comment on above: Performed By: #### L 300.3900 ####[facility] [address] [place], [place], [phone] Prothrombin timeOrdered By: Watson Rodriguez on 08-24-2024 PT Coag (PPP) [Time] 25.2 s High 11.7-14.9 [facility] Pulmonary Visit Reporton Pulmonary Visit Report Normal [facility] Thyroidon 08-22-2024 Thyroid Normal [facility] [id number]-Skjkson DOrdered By: Delaney Membreno on 08-10-2024 Vitamin D 25-Hydroxy 43.6 ng/mL [facility] Comment on above: Vitamin D 25(OH) Sta tus Range Deficiency <20 ng/mL (50nmol/L) Insufficiency 20 - 30 ng/mL (50 - 75 nmol/L) Sufficiency 30 - 100 ng/mL (75 - 250 nmol/L) Toxicity >100 ng/mL (>250 nmol/L) Absolute neutrophil countOrd ered By: Jt Membreno on 08-10-2024 Neutrophils (Bld) [#/Vol] 5.3 10*3/uL 2.0-7.7 [facility] Albumin to globulin ratioOrd ered By: Jt Membreno on 08-10-2024 Albumin/Globulin [Mass ratio] 1.0 {ratio} 0.9-2.4 [facility] Basophil percentageOrdered B y: Jt Membreno on 08-10-2024 Basophils/100 WBC (Bld) 0.4 % 0-1 [facility] Bilirubin Test strip Ql (U)O rdered By: Jt Membreno on 08-10-2024 Bilirubin Ql (U) Negative Negative [facility] Bilirubin, totalOrdered By: Jt Membreno on 08-10-2024 Bilirubin [Mass/Vol] 0.30 mg/dL 0.20-1.00 [facility] Comment on above: For patients on eltr ombopag therapy, use of Dimension [place] TBIL is not recommended. Blood urea nitrogen (BUN)/cr eatinine ratioOrdered By: Jt Membreno on 08-10-2024 Urea nitrogen/Creatinine [Mass ratio] 24.1 mg/mg High 10-20 [facility] CBC W/Diff, Automatedon 07-16 Absolute Lymph 0.64 X10 3/uL Low 0.83-4.51 [facility] Comment on above: Order Comment: Order Date: 08/10/24Order Info: 0184-1 - CBCD Performed By: #### L 100.0100, L501.9985, L506.1000, L500.4050, L501.5200, L501.9520, L500.4100 ####[facility] [address] [place], [address] Absolute Neut 5.3 X10 3/uL Normal 2.0-7.7 [facility] Comment on above: Order Comment: Order Date: 08/10/24Order Info: 0184-1 - CBCD Performed By: #### L 100.0100, L501.9985, L506.1000, L500.4050, L501.5200, L501.9520, L500.4100 ####[facility] [address] [place], [address] Basophils/100 WBC (Bld) 0.4 % Normal 0-1 [facility] Comment on above: Order Comment: Order Date: 08/10/24Order Info: 0184-1 - CBCD Performed By: #### L 100.0100, L501.9985, L506.1000, L500.4050, L501.5200, L501.9520, L500.4100 ####[facility] [address] [place], [place], [phone] Eosinophils/100 WBC (Bld) 2.8 % Normal 0-5 [facility] Comment on above: Order Comment: Order Date: 08/10/24Order Info: 0184-1 - CBCD Performed By: #### L 100.0100, L501.9985, L506.1000, L500.4050, L501.5200, L501.9520, L500.4100 ####[facility] [address] [place], [address] Erythrocyte distribution width (RBC) [Ratio] 14.6 % Normal 11.6-14.6 [facility] Comment on above: Order Comment: Order Date: 08/10/24Order Info: 0184-1 - CBCD Performed By: #### L 100.0100, L501.9985, L506.1000, L500.4050, L501.5200, L501.9520, L500.4100 ####[facility] [address] [place], [address] Hematocrit (Bld) [Volume fraction] 43.3 % Normal 40-54 [facility] Comment on above: Order Comment: Order Date: 08/10/24Order Info: 0184-1 - CBCD Performed By: #### L 100.0100, L501.9985, L506.1000, L500.4050, L501.5200, L501.9520, L500.4100 ####[facility] [address] [place], [address] Hemoglobin (Bld) [Mass/Vol] 14.2 g/dL Normal 13.0-16.5 [facility] Comment on above: Order Comment: Order Date: 08/10/24Order Info: 0184-1 - CBCD Performed By: #### L 100.0100, L501.9985, L506.1000, L500.4050, L501.5200, L501.9520, L500.4100 ####[facility] [address] [place], [address] IG% 0.300 Normal 0.0-0.9 [facility] Comment on above: Order Comment: Order Date: 08/10/24Order Info: 0184-1 - CBCD Result Comment: IG% - Immature Granulocytes (promyelocytes, myelocytes andmetamyelocytes) > 1% indicates that a LEFT SHIFT is Present. Performed By: #### L 100.0100, L501.9985, L506.1000, L500.4050, L501.5200, L501.9520, L500.4100 ####[facility] [address] [place], [address] Lymphocytes/100 WBC (Bld) 9.5 % Low 19-41 [facility] Comment on above: Order Comment: Order Date: 08/10/24Order Info: 0184-1 - CBCD Performed By: #### L 100.0100, L501.9985, L506.1000, L500.4050, L501.5200, L501.9520, L500.4100 ####[facility] [address] [place], [address] MCH (RBC) [Entitic mass] 30.5 pg Normal 27.0-32.0 [facility] Comment on above: Order Comment: Order Date: 08/10/24Order Info: 018-1 - CBCD Performed By: #### L 100.0100, L501.9985, L506.1000, L500.4050, L501.5200, L501.9520, L500.4100 ####[facility] [address] [place], [address] MCHC (RBC) [Mass/Vol] 32.8 g/dL Normal 32-36 [facility] Comment on above: Order Comment: Order Date: 08/10/24Order Info: 018- - CBCD Performed By: #### L 100.0100, L501.9985, L506.1000, L500.4050, L501.5200, L501.9520, L500.4100 ####[facility] [address] [place], [address] MCV (RBC) [Entitic vol] 93.1 fL Normal 80-94 [facility] Comment on above: Order Comment: Order Date: 08/10/24Order Info: 0184-1 - CBCD Performed By: #### L 100.0100, L501.9985, L506.1000, L500.4050, L501.5200, L501.9520, L500.4100 ####[facility] [address] [place], [address] Monocytes/100 WBC (Bld) 8.8 % Normal 0-10 [facility] Comment on above: Order Comment: Order Date: 08/10/24Order Info: 0184-1 - CBCD Performed By: #### L 100.0100, L501.9985, L506.1000, L500.4050, L501.5200, L501.9520, L500.4100 ####[facility] [address] [place], [address] Neutrophils/100 WBC (Bld) 78.2 % High 47-70 [facility] Comment on above: Order Comment: Order Date: 08/10/24Order Info: 018- - CBCD Performed By: #### L 100.0100, L501.9985, L506.1000, L500.4050, L501.5200, L501.9520, L500.4100 ####[facility] [address] [place], [address] Nucleated RBC (Bld) [#/Vol] 0 10*3/uL Normal 0-5 [facility] Comment on above: Order Comment: Order Date: 08/10/24Order Info: 018- - CBCD Performed By: #### L 100.0100, L501.9985, L506.1000, L500.4050, L501.5200, L501.9520, L500.4100 ####[facility] [address] [place], [address] Platelet mean volume (Bld) [Entitic vol] 9.5 fL Normal 6.2-12.0 [facility] Comment on above: Order Comment: Order Date: 08/10/24Order Info: 018- - CBCD Performed By: #### L 100.0100, L501.9985, L506.1000, L500.4050, L501.5200, L501.9520, L500.4100 ####[facility] [address] [place], [address] Platelets (Bld) [#/Vol] 242 10*3/uL Normal 150-450 [facility] Comment on above: Order Comment: Order Date: 08/10/24Order Info: 018- - CBCD Performed By: #### L 100.0100, L501.9985, L506.1000, L500.4050, L501.5200, L501.9520, L500.4100 ####[facility] [address] [place], [place], [address] RBC (Bld) [#/Vol] 4.65 10*6/uL Normal 4.6-6.2 [facility] Comment on above: Order Comment: Order Date: 08/10/24Order Info: 183- - CBCD Performed By: #### L 100.0100, L501.9985, L506.1000, L500.4050, L501.5200, L501.9520, L500.4100 ####[facility] [address] [place], [place], [id number] RDW SD 50.4 fl High 35.1-43.9 [facility] Comment on above: Order Comment: Order Date: 08/10/24Order Info: 183- - CBCD Performed By: #### L 100.0100, L501.9985, L506.1000, L500.4050, L501.5200, L501.9520, L500.4100 ####[facility] [address] [place], [address] WBC (Bld) [#/Vol] 6.7 10*3/uL Normal 4.4-11.0 [facility] Comment on above: Order Comment: Order Date: 08/10/24Order Info: 018- - CBCD Performed By: #### L 100.0100, L501.9985, L506.1000, L500.4050, L501.5200, L501.9520, L500.4100 ####[facility] [address] [place], [id number] Carbon dioxide measurementOr dered By: Jt Membreno on 08-10-2024 CO2 [Moles/Vol] 22.0 mmol/L 21.0-32.0 [facility] Chloride measurementOrdered By: Jt Membreno on 08-10-2024 Chloride [Moles/Vol] 112 mmol/L High 98-107 [facility] Comprehensive Metabolic Prof ilon 08-10-2024 Albumin [Mass/Vol] 3.7 g/dL Normal 3.2-5.0 [facility] Comment on above: Order Comment: Order Date: 08/10/24Order Info: 86-1 - CMPOrder Info: [id number] - LIPIDOrder Info: [id number] - MGOrder Info: [id number] - TSH Performed By: #### L 100.0100, L501.9985, L506.1000, L500.4050, L501.5200, L501.9520, L500.4100 ####[facility] [address] [place], [address] Albumin/Globulin [Mass ratio] 1.0 {ratio} Normal 0.9-2.4 [facility] Comment on above: Order Comment: Order Date: 08/10/24Order Info: [id number] - CMPOrder Info: - LIPIDOrder Info: [id number] - MGOrder Info: [id number] - TSH Performed By: #### L 100.0100, L501.9985, L506.1000, L500.4050, L501.5200, L501.9520, L500.4100 ####[facility] [address] [place], [address] ALK P 86 U/L Normal 45-117 [facility] Comment on above: Order Comment: Order Date: 08/10/24Order Info: 07-1 - CMPOrder Info: - LIPIDOrder Info: [id number] - MGOrder Info: [id number] - TSH Performed By: #### L 100.0100, L501.9985, L506.1000, L500.4050, L501.5200, L501.9520, L500.4100 ####[facility] [address] [place], [address] ALT [Catalytic activity/Vol] 27 U/L Normal 16-61 [facility] Comment on above: Order Comment: Order Date: 08/10/24Order Info: [id number] - CMPOrder Info: [id number] - LIPIDOrder Info: [id number] - MGOrder Info: [id number] - TSH Performed By: #### L 100.0100, L501.9985, L506.1000, L500.4050, L501.5200, L501.9520, L500.4100 ####[facility] [address] [place], [place], [phone] AST [Catalytic activity/Vol] 18 U/L Normal 15-37 [facility] Comment on above: Order Comment: Order Date: 08/10/24Order Info: 86-1 - CMPOrder Info: [id number] - LIPIDOrder Info: - MGOrder Info: [id number] - TSH Performed By: #### L 100.0100, L501.9985, L506.1000, L500.4050, L501.5200, L501.9520, L500.4100 ####[facility] [address] [place], [place], [phone] Bilirubin [Mass/Vol] 0.30 mg/dL Normal 0.20-1.00 [facility] Comment on above: Order Comment: Order Date: 08/10/24Order Info: [id number]- - CMPOrder Info: [id number] - LIPIDOrder Info: - MGOrder Info: [id number] - TSH Result Comment: For patients on eltrombopag therapy, use of Dimension [place] TBIL is not recommended. Performed By: #### L 100.0100, L501.9985, L506.1000, L500.4050, L501.5200, L501.9520, L500.4100 ####[facility] [address] [place], [place], [phone]) BUN/CRE 24.1 RATIO High 10-20 [facility] Comment on above: Order Comment: Order Date: 08/10/24Order Info: 86-1 - CMPOrder Info: [id number] - LIPIDOrder Info: - MGOrder Info: [id number] - TSH Performed By: #### L 100.0100, L501.9985, L506.1000, L500.4050, L501.5200, L501.9520, L500.4100 ####[facility] [address] [place], [address] CA,Total 8.7 mg/dL Normal 8.5-10.1 [facility] Comment on above: Order Comment: Order Date: 08/10/24Order Info: 86-1 - CMPOrder Info: [id number] - LIPIDOrder Info: [id number] - MGOrder Info: [id number] - TSH Performed By: #### L 100.0100, L501.9985, L506.1000, L500.4050, L501.5200, L501.9520, L500.4100 ####[facility] [address] [place], [place], [phone] Chloride [Moles/Vol] 112 mmol/L High 98-107 [facility] Comment on above: Order Comment: Order Date: 08/10/24Order Info: [id number]- - CMPOrder Info: - LIPIDOrder Info: - MGOrder Info: [id number] - TSH Performed By: #### L 100.0100, L501.9985, L506.1000, L500.4050, L501.5200, L501.9520, L500.4100 ####[facility] [address] [place], [address] CO2 [Moles/Vol] 22.0 mmol/L Normal 21.0-32.0 [facility] Comment on above: Order Comment: Order Date: 08/10/24Order Info: 785- - CMPOrder Info: [id number] - LIPIDOrder Info: - MGOrder Info: [id number] - TSH Performed By: #### L 100.0100, L501.9985, L506.1000, L500.4050, L501.5200, L501.9520, L500.4100 ####[facility] [address] [place], [address] Creatinine [Mass/Vol] 1.00 mg/dL Normal 0.70-1.30 [facility] Comment on above: Order Comment: Order Date: 08/10/24Order Info: [id number] - CMPOrder Info: [id number] - LIPIDOrder Info: [id number] - MGOrder Info: [id number] - TSH Result Comment: The validity of the calculated GFR GFRAA in patients over70 years has not been determined. Clinical correlation isessential. Performed By: #### L 100.0100, L501.9985, L506.1000, L500.4050, L501.5200, L501.9520, L500.4100 ####[facility] [address] [place], [address] EST GFR - AA 97 mL/min Normal >60 [facility] Comment on above: Order Comment: Order Date: 08/10/24Order Info: [id number] - CMPOrder Info: [id number] - LIPIDOrder Info: [id number] - MGOrder Info: [id number] - TSH Result Comment: Afri can Nigerien GFR Calc Performed By: #### L 100.0100, L501.9985, L506.1000, L500.4050, L501.5200, L501.9520, L500.4100 ####[facility] [address] [place], [address] GAP 7 Normal 5-15 [facility] Comment on above: Order Comment: Order Date: 08/10/24Order Info: 86-1 - CMPOrder Info: [id number] - LIPIDOrder Info: [id number] - MGOrder Info: [id number] - TSH Performed By: #### L 100.0100, L501.9985, L506.1000, L500.4050, L501.5200, L501.9520, L500.4100 ####[facility] [address] [place], [address] GFR/1.73 sq M.predicted among non-blacks MDRD (S/P/Bld) [Vol rate/Area] 80 mL/min/{1.73_m2} Normal >60 [facility] Comment on above: Order Comment: Order Date: 08/10/24Order Info: 07-1 - CMPOrder Info: [id number] - LIPIDOrder Info: [id number] - MGOrder Info: [id number] - TSH Result Comment: Non- GFR Calc Performed By: #### L 100.0100, L501.9985, L506.1000, L500.4050, L501.5200, L501.9520, L500.4100 ####[facility] [address] [place], [place], [phone] Globulin (S) [Mass/Vol] 3.6 g/dL Normal 2.2-4.2 [facility] Comment on above: Order Comment: Order Date: 08/10/24Order Info: [id number] - CMPOrder Info: - LIPIDOrder Info: [id number] - MGOrder Info: [id number] - TSH Performed By: #### L 100.0100, L501.9985, L506.1000, L500.4050, L501.5200, L501.9520, L500.4100 ####[facility] [address] [place], [address] Glucose [Mass/Vol] 111 mg/dL High 74-106 [facility] Comment on above: Order Comment: Order Date: 08/10/24Order Info: [id number]- - CMPOrder Info: [id number] - LIPIDOrder Info: [id number] - MGOrder Info: [id number] - TSH Result Comment: Fast ing Glucose result from 100 to 125 mg/dLsuggests IMPAIRED HOMEOSTASIS per A.D.A. criteria. Performed By: #### L 100.0100, L501.9985, L506.1000, L500.4050, L501.5200, L501.9520, L500.4100 ####[facility] [address] [place], [address] Potassium [Moles/Vol] 3.7 mmol/L Normal 3.5-5.1 [facility] Comment on above: Order Comment: Order Date: 08/10/24Order Info: [id number] - CMPOrder Info: [id number] - LIPIDOrder Info: [id number] - MGOrder Info: [id number] - TSH Performed By: #### L 100.0100, L501.9985, L506.1000, L500.4050, L501.5200, L501.9520, L500.4100 ####[facility] [address] [place], [address] Sodium [Moles/Vol] 141 mmol/L Normal 136-145 [facility] Comment on above: Order Comment: Order Date: 08/10/24Order Info: [id number]- - CMPOrder Info: [id number] - LIPIDOrder Info: [id number] - MGOrder Info: [id number] - TSH Performed By: #### L 100.0100, L501.9985, L506.1000, L500.4050, L501.5200, L501.9520, L500.4100 ####[facility] [address] [place], [address] T PROT 7.3 g/dL Normal 6.4-8.2 [facility] Comment on above: Order Comment: Order Date: 08/10/24Order Info: 07-1 - CMPOrder Info: [id number] - LIPIDOrder Info: [id number] - MGOrder Info: [id number] - TSH Performed By: #### L 100.0100, L501.9985, L506.1000, L500.4050, L501.5200, L501.9520, L500.4100 ####[facility] [address] [place], [address] Urea nitrogen [Mass/Vol] 24 mg/dL High 7-18 [facility] Comment on above: Order Comment: Order Date: 08/10/24Order Info: [id number] - CMPOrder Info: [id number] - LIPIDOrder Info: [id number] - MGOrder Info: [id number] - TSH Performed By: #### L 100.0100, L501.9985, L506.1000, L500.4050, L501.5200, L501.9520, L500.4100 ####[facility] [address] [place], [address] Eosinophil percentageOrdered By: Jt Membreno on 08-10-2024 Eosinophils/100 WBC (Bld) 2.8 % 0-5 [facility] Epithelial cells.squamous LM Ql (Urine sed)Ordered By: Jt Membreno on 08-10-2024 Epithelial cells.squamous LM.HPF (Urine sed) [#/Area] 0 /[HPF] 0-5 [facility] Erythrocyte distribution wid th ratioOrdered By: Jt Membreno on 08-10-2024 Erythrocyte distribution width (RBC) [Ratio] 14.6 % 11.6-14.6 [facility] Erythrocyte distribution wid th standard deviationOrdered By: Jt Membreno on 08-10-2024 Erythrocyte distribution width (RBC) [Entitic vol] 50.4 fL High 35.1-43.9 [facility] Estimated glomerular filtrat ion rate (GFR) AmericanOrdered By: Jt Membreno on 08-10-2024 Estimated GFR (MDRD) Amer 97 mL/min >60 [facility] Comment on above: GFR Calc Glomerular filtration rate ( GFR) estimationOrdered By: Jt Membreno on 08-10-2024 Estimated GFR (MDRD) Non-Af Amer 80 mL/min >60 [facility] Comment on above: Non- GFR Calc Glucose Ql (U)Ordered By: Luzmaria Membreno on 08-10-2024 Urine Glucose (UA) Normal mg/dl Normal [facility] Glucose measurementOrdered B y: Jt Membreno on 08-10-2024 Glucose [Mass/Vol] 111 mg/dL High 74-106 [facility] Comment on above: Fasting Glucose resu lt from 100 to 125 mg/dL suggests IMPAIRED HOMEOSTASIS per A.D.A. criteria. Hematocrit Auto (Bld) [Volum e fraction]Ordered By: Jt Membreno on 08-10-2024 Hematocrit (Bld) [Volume fraction] 43.3 % 40-54 [facility] Hemoglobin A1con 08-10-2024 HbA1c (Bld) [Mass fraction] 5.8 % High 3.8-5.6 [facility] Comment on above: Order Comment: Order Date: 08/10/24Order Info: [id number] - A1C Result Comment: Norm al < 5.7 % Prediabetic 5.7 - 6.4 % Diabetic >or= 6.5 % Please note range changes. Performed By: #### L 100.0100, L501.9985, L506.1000, L500.4050, L501.5200, L501.9520, L500.4100 ####[facility] [address] [place], [address] Hemoglobin A1c percentageOrd ered By: Jt Membreno on 08-10-2024 HbA1c (Bld) [Mass fraction] 5.8 % High 3.8-5.6 [facility] Comment on above: Normal < 5.7 % Predi abetic 5.7 - 6.4 % Diabetic >or= 6.5 % Please note range changes. Hemoglobin measurementOrdere d By: Jt Membreno on 08-10-2024 Hemoglobin (Bld) [Mass/Vol] 14.2 g/dL 13.0-16.5 [facility] High density lipoprotein (HD L) measurementOrdered By: Jt Membreno on 08-10-2024 Cholesterol in HDL [Mass/Vol] 44 mg/dL >40 [facility] Comment on above: The drugs N-Acetylcy steine and Metamizole may falsely depress this assay. Reference Range HDL <40 mg/dL Low HDL Cholesterol HDL >or= 60 mg/dL High HDL Cholesterol Immature granulocytes/100 WB C Auto (Bld)Ordered By: Jt Membreno on 08-10-2024 Immature granulocytes/100 WBC (Bld) 0.300 % 0.0-0.9 [facility] Comment on above: IG% - Immature Granu locytes (promyelocytes, myelocytes and metamyelocytes) > 1% indicates that a LEFT SHIFT is Present. Ketones Test strip Ql (U)Ord ered By: Jt Membreno on 08-10-2024 Ketones Ql (U) Negative Negative [facility] Laboratory - Chemistry and C hemistry - challengeOrdered By: Jt Membreno on 08-10-2024 AST [Catalytic activity/Vol] 18 U/L 15-37 [facility] Lipid Profileon 08-10-2024 Cholesterol [Mass/Vol] 172 mg/dL Normal 200 [facility] Comment on above: Order Comment: Order Date: 08/10/24Order Info: [id number] - CMPOrder Info: [id number] - LIPIDOrder Info: [id number] - MGOrder Info: [id number] - TSH Result Comment: <200 mg/dL Desirable 200-240 mg/dL Borderline >240 mg/dL High Risk Performed By: #### L 100.0100, L501.9985, L506.1000, L500.4050, L501.5200, L501.9520, L500.4100 ####[facility] [address] [place], [address] Cholesterol in HDL [Mass/Vol] 44 mg/dL Normal [facility] Comment on above: Order Comment: Order Date: 08/10/24Order Info: [id number]- - CMPOrder Info: [id number] - LIPIDOrder Info: [id number] - MGOrder Info: [id number] - TSH Result Comment: The drugs N-Acetylcysteine and Metamizole may falselydepress this assay. Reference Range HDL <40 mg/dL Low HDL Cholesterol HDL >or= 60 mg/dL High HDL Cholesterol Performed By: #### L 100.0100, L501.9985, L506.1000, L500.4050, L501.5200, L501.9520, L500.4100 ####[facility] [address] [place], [address] Cholesterol in LDL [Mass/Vol] 113 mg/dL Normal 0-130 [facility] Comment on above: Order Comment: Order Date: 08/10/24Order Info: [id number] - CMPOrder Info: - LIPIDOrder Info: [id number] - MGOrder Info: [id number] - TSH Performed By: #### L 100.0100, L501.9985, L506.1000, L500.4050, L501.5200, L501.9520, L500.4100 ####[facility] [address] [place], [place], [phone] Cholesterol in VLDL [Mass/Vol] 15 mg/dL Normal 5-40 [facility] Comment on above: Order Comment: Order Date: 08/10/24Order Info: [id number] - CMPOrder Info: - LIPIDOrder Info: - MGOrder Info: 3 - TSH Performed By: #### L 100.0100, L501.9985, L506.1000, L500.4050, L501.5200, L501.9520, L500.4100 ####[facility] [address] [place], [place], [phone] Triglyceride [Mass/Vol] 74 mg/dL Normal [facility] Comment on above: Order Comment: Order Date: 08/10/24Order Info: [id number] - CMPOrder Info: - LIPIDOrder Info: - MGOrder Info: [id number] - TSH Result Comment: The drugs N-Acetylcysteine and Metamizole may falselydepress this assay.Serum Triglycerides Reference Interval Normal <150 mg/dL Borderline high 150 - 199 mg/dL High 200 - 499 mg/dL Very High > or = 500 mg/dL Performed By: #### L 100.0100, L501.9985, L506.1000, L500.4050, L501.5200, L501.9520, L500.4100 ####[facility] [address] [place], [place], [phone] Low density lipoprotein (LDL ) cholesterol measurementOrdered By: Jt Membreno on 08-10-2024 Cholesterol in LDL [Mass/Vol] 113 mg/dL 0-130 [facility] Lymphocytes Auto (Unsp spec) [#/Vol]Ordered By: Jt Membreno on 08-10-2024 Lymphocytes (Bld) [#/Vol] 0.64 10*3/uL Low 0.83-4.51 [facility] Lymphocytes/100 WBC Auto (Un sp spec)Ordered By: Jt Membreno on 08-10-2024 Lymphocytes/100 WBC (Bld) 9.5 % Low 19-41 [facility] MCV (mean corpuscular volume ) determinationOrdered By: Jt Membreno on 08-10-2024 MCV (RBC) [Entitic vol] 93.1 fL 80-94 [facility] Magnesiumon 08-10-2024 Magnesium [Mass/Vol] 2.2 mg/dL Normal 1.6-2.6 [facility] Comment on above: Order Comment: Order Date: 08/10/24Order Info: [id number] - CMPOrder Info: [id number] - LIPIDOrder Info: [id number] - MGOrder Info: [id number] - TSH Performed By: #### L 100.0100, L501.9985, L506.1000, L500.4050, L501.5200, L501.9520, L500.4100 ####[facility] [address] [place], [address] Magnesium measurementOrdered By: Jt Membreno on 08-10-2024 Magnesium [Mass/Vol] 2.2 mg/dL 1.6-2.6 [facility] Mean corpuscular hemoglobin (MCH) determinationOrdered By: Jt Membreno on 08-10-2024 MCH (RBC) [Entitic mass] 30.5 pg 27.0-32.0 [facility] Mean corpuscular hemoglobin concentration (MCHC) determinationOrdered By: Jt Membreno on 08-10-2024 MCHC (RBC) [Mass/Vol] 32.8 g/dL 32-36 [facility] Mean platelet volume determi nationOrdered By: Jt Membreno on 08-10-2024 Platelet mean volume (Bld) [Entitic vol] 9.5 fL 6.2-12.0 [facility] Microscopic analysis of urin e for red blood cells (RBC)Ordered By: Jt Membreno on 08-10-2024 Urine RBC 0 SEEN /hpf 0-5 [facility] Monocyte percentageOrdered B y: Jt Membreno on 08-10-2024 Monocytes/100 WBC (Bld) 8.8 % 0-10 [facility] Mucus LM Ql (Urine sed)Order ed By: Jt Membreno on 08-10-2024 Mucus Ql (Urine sed) 0 SEEN /hpf [facility] Neutrophil percentageOrdered By: Jt Membreno on 08-10-2024 Neutrophils/100 WBC (Bld) 78.2 % High 47-70 [facility] Nitrite Test strip Ql (U)Ord ered By: Jt Membreno on 08-10-2024 Nitrite Ql (U) Negative Negative [facility] Nucleated red blood cell per centageOrdered By: Jt Membreno on 08-10-2024 Nucleated RBC/100 WBC (Bld) [Ratio] 0 % 0-5 [facility] Platelet countOrdered By: Luzmaria Membreno on 08-10-2024 Platelets (Bld) [#/Vol] 242 10*3/uL 150-450 [facility] Potassium measurementOrdered By: Jt Membreno on 08-10-2024 Potassium [Moles/Vol] 3.7 mmol/L 3.5-5.1 [facility] Protein Test strip Ql (U)Ord ered By: Jt Membreno on 08-10-2024 Protein Ql (U) Negative Negative [facility] RBC Auto (Bld) [#/Vol]Ordere d By: Jt Membreno on 08-10-2024 RBC (Bld) [#/Vol] 4.65 10*6/uL 4.6-6.2 [facility] Serum anion gap measurementO rdered By: Jt Membreno on 08-10-2024 Anion gap [Moles/Vol] 7 mmol/L 5-15 [facility] Serum globulin measurementOr dered By: Jt Membreno on 08-10-2024 Globulin (S) [Mass/Vol] 3.6 g/dL 2.2-4.2 [facility] Serum or plasma alanine alvarez otransferase (ALT) measurementOrdered By: Jt Membreno on 08-10-2024 ALT [Catalytic activity/Vol] 27 U/L 16-61 [facility] Serum or plasma albumin wilner urement (mass/volume)Ordered By: Jt Membreno on 08-10-2024 Albumin [Mass/Vol] 3.7 g/dL 3.2-5.0 [facility] Serum or plasma alkaline pat sphatase measurementOrdered By: Jt Membreno on 08-10-2024 ALP [Catalytic activity/Vol] 86 U/L 45-117 [facility] Serum or plasma calcium wilner urement (mass/volume)Ordered By: Jt Membreno on 08-10-2024 Calcium [Mass/Vol] 8.7 mg/dL 8.5-10.1 [facility] Serum or plasma cholesterol measurement (mass/volume)Ordered By: Jt Membreno on 08-10-2024 Cholesterol [Mass/Vol] 172 mg/dL <200 [facility] Comment on above: <200 mg/dL Desirable 200-240 mg/dL Borderline >240 mg/dL High Risk Serum or plasma creatinine m easurement (mass/volume)Ordered By: Jt Membreno on 08-10-2024 Creatinine [Mass/Vol] 1.00 mg/dL 0.70-1.30 [facility] Comment on above: The validity of the calculated GFR & GFRAA in patients over 70 years has not been determined. Clinical correlation is essential. Serum or plasma urea nitroge n measurement (mass/volume)Ordered By: Jt Membreno on 08-10-2024 Urea nitrogen [Mass/Vol] 24 mg/dL High 7-18 [facility] Sodium levelOrdered By: Jt Membreno on 08-10-2024 Sodium [Moles/Vol] 141 mmol/L 136-145 [facility] TSH QnOrdered By: Jt lin on 08-10-2024 Thyroid Stimulating Hormone (TSH) 1.250 uIU/mL 0.358-3.740 [facility] Thyroid Stim Hormone (TSH)on 08-10-2024 TSH 1.250 uIU/mL Normal 0.358-3.740 [facility] Comment on above: Order Comment: Order Date: 08/10/24Order Info: [id number] - CMPOrder Info: [id number] - LIPIDOrder Info: [id number] - MGOrder Info: [id number] - TSH Performed By: #### L 100.0100, L501.9985, L506.1000, L500.4050, L501.5200, L501.9520, L500.4100 ####[facility] [address] [place], [address] Total proteinOrdered By: Mark Membreno on 08-10-2024 Protein [Mass/Vol] 7.3 g/dL 6.4-8.2 [facility] Triglycerides measurementOrd ered By: Jt Membreno on 08-10-2024 Triglyceride [Mass/Vol] 74 mg/dL <199 [facility] Comment on above: The drugs N-Acetylcy steine and Metamizole may falsely depress this assay.Serum Triglycerides Reference Interval Normal <150 mg/dL Borderline high 150 - 199 mg/dL High 200 - 499 mg/dL Very High > or = 500 mg/dL Urinalysis, Completeon 08-10 EPI,SQUAMOUS 0-5 SEEN Normal 0-5 [facility] Comment on above: Order Comment: CLEAN CATCH Performed By: #### L 400.0001 ####[facility] [address] [place], [address] BACTERIA 0 SEEN Normal None Seen [facility] Comment on above: Order Comment: CLEAN CATCH Performed By: #### L 400.0001 ####[facility] [address] [place], [address] Mucus Ql (Urine sed) 0 SEEN Normal [facility] Comment on above: Order Comment: CLEAN CATCH Performed By: #### L 400.0001 ####[facility] [address] [place], [address] RBC 0 SEEN Normal 0-5 [facility] Comment on above: Order Comment: CLEAN CATCH Performed By: #### L 400.0001 ####[facility] [address] [place], [address] WBC 0 SEEN Normal 0-5 [facility] Comment on above: Order Comment: CLEAN CATCH Performed By: #### L 400.0001 ####[facility] [address] [place], [address] Urine blood detectionOrdered By: Jt Membreno on 08-10-2024 Urine Occult Blood Negative Negative [facility] Urine clarityOrdered By: Mark Membreno on 08-10-2024 Clarity (U) Clear Clear [facility] Urine color determinationOrd ered By: Jt Membreno on 08-10-2024 Color (U) Yellow Yellow [facility] Urine leukocyte esterase det ection by dipstickOrdered By: Jt Membreno on 08-10-2024 Leukocyte esterase Test strip Ql (U) Negative Negative [facility] Urine pHOrdered By: Jt vallecillo on 08-10-2024 pH (U) 6.0 [pH] 5.0 - 8.0 [facility] Urine sediment bacteria coun t by microscopy (number/high power field)Ordered By: Jt Membreno on 08-10-2024 Bacteria LM.HPF (Urine sed) [#/Area] 0 /[HPF] None Seen [facility] Urine specific gravity measu rementOrdered By: Jt Membreno on 08-10-2024 Specific gravity (U) [Rel density] 1.015 1.002-1.030 [facility] Urobilinogen Ql (U)Ordered B y: Jt Membreno on 08-10-2024 Urine Urobilinogen Normal mg/dl Normal [facility] Very low density lipoprotein (VLDL) cholesterol measurementOrdered By: Jt Membreno on 08-10-2024 VLDL Cholesterol 15 mg/dL 5-40 [facility] Vitamin D,25 Hydroxyon 08-10 Vitamin D 25-OH 43.6 ng/mL Normal [facility] Comment on above: Order Comment: Order Date: 08/10/24Order Info: [id number] - [id number] Result Comment: Neva min D 25(OH) Status Range Deficiency <20 ng/mL (50nmol/L) Insufficiency 20 - 30 ng/mL (50 - 75 nmol/L) Sufficiency 30 - 100 ng/mL (75 - 250 nmol/L) Toxicity >100 ng/mL (>250 nmol/L) Performed By: #### L 100.0100, L501.9985, L506.1000, L500.4050, L501.5200, L501.9520, L500.4100 ####[facility] [address] [place], [address] White blood cell (WBC) count Ordered By: Jt Membreno on 08-10-2024 WBC (Bld) [#/Vol] 6.7 10*3/uL 4.4-11.0 [facility] White blood cell countOrdere d By: Jt Membreno on 08-10-2024 Urine WBC 0 SEEN /hpf 0-5 [facility] 12 Lead EKG performed by BMS on 08-03-2024 12 Lead EKG performed by BMS Normal [facility] Cardiology Visit Reporton Cardiology Visit Report Normal [facility] Prothrombin Time w/INRon INR Coag (PPP) [Relative time] 2.4 {INR} Normal [facility] Comment on above: Performed By: #### L 300.3900 ####[facility] [address] [place], [address] PT Coag (PPP) [Time] 25.6 s High 11.7-14.9 [facility] Comment on above: Performed By: #### L 300.3900 ####[facility] [address] [place], [address] PSA,Total - Annual Screenon 07-14-2024 PSA,TOT SCREEN 0.61 ng/mL Normal 0.00-4.00 [facility] Comment on above: Result Comment: This test was performed using the TPSA assay method for the[facility] chemistry system. Values obtained with differentassay methods cannot be used interchangably.When changing PSA assays in the course of monitoring apatient, additional sequential testing should be carriedout to confirm baseline values. Performed By: #### L 501.9910 ####[facility] [address] [place], [place], [address] Carcinoembryonic Antigenon 1 CEA 2.4 ng/mL Normal 0.0-4.7 [facility] Comment on above: Result Comment: Nons mokers <3.9 Smokers <5.6[employer] Electrochemiluminescence Immunoassay(ECLIA)Values obtained with different assay methods or kitscannot be used interchangeably. Results cannot beinterpreted as absolute evidence of the presence orabsence of malignant disease.Performed at: [facility] [id number] Director: Ed Ramirez PhD, Phone: [phone] Performed By: #### L 2690.8192 ####[facility] [address] [place], [place], [id number] Ferritinon 06-27-2024 Ferritin [Mass/Vol] 26 ng/mL Normal 26-388 [facility] Comment on above: Order Comment: *ADD ON*CAN YOU PLEASE ADD THESE TO BLOODWORK DONE ON 06 27 2024 Performed By: #### L 503.6006, L503.6540 ####[facility] [address] [place], [place], [address] Ferritin measurementOrdered By: Andre Quesada on 06-27-2024 Ferritin [Mass/Vol] 26 ng/mL 26-388 [facility] normalized rat io (INR) calculationOrdered By: Cameron Childers on 06-27-2024 INR Coag (Bld) [Relative time] 2.5 {INR} [facility] Iron (Unsp spec) [Mass/Mass] Ordered By: Andre Quesada on 06-27-2024 Iron [Mass/Vol] 46 ug/dL Low 65-175 [facility] Iron saturation [Mass fracti on]Ordered By: Andre Quesada on 06-27-2024 Iron Saturation 14.0 % Low 15.0-55.0 [facility] Iron+Iron Binding Capacityon 06-27-2024 Iron [Mass/Vol] 46 ug/dL Low 65-175 [facility] Comment on above: Order Comment: *ADD ON*CAN YOU PLEASE ADD THESE TO BLOODWORK DONE ON 06 27 2024 Performed By: #### L 503.6030, L503.6550 ####[facility] [address] [place], [address] IRON SATURATION 14.0 Low 15.0-55.0 [facility] Comment on above: Order Comment: *ADD ON*CAN YOU PLEASE ADD THESE TO BLOODWORK DONE ON 06 27 2024 Performed By: #### L 503.6030, L503.6550 ####[facility] [address] [place], [address] TIBC 329 ug/dL Normal 250-450 [facility] Comment on above: Order Comment: *ADD ON*CAN YOU PLEASE ADD THESE TO BLOODWORK DONE ON 06 27 2024 Performed By: #### L 503.6030, L503.6550 ####[facility] [address] [place], [address] Oncology Visit Reporton 06-14 Oncology Visit Report Normal [facility] Prothrombin Time w/INRon INR Coag (PPP) [Relative time] 2.5 {INR} Normal [facility] Comment on above: Performed By: #### L 300.3900 ####[facility] [address] [place], [address] PT Coag (PPP) [Time] 26.8 s High 11.7-14.9 [facility] Comment on above: Performed By: #### L 300.3900 ####[facility] [address] [place], [address] Prothrombin timeOrdered By: Cameron Childers on 06-27-2024 PT Coag (PPP) [Time] 26.8 s High 11.7-14.9 [facility] TIBCOrdered By: Andre Quesada on 06-27-2024 Total Iron Binding Capacity 329 ug/dL 250-450 [facility] Prothrombin Time w/INRon INR Coag (PPP) [Relative time] 2.3 {INR} Normal [facility] Comment on above: Performed By: #### L 300.3900 ####[facility] [address] [place], [address] PT Coag (PPP) [Time] 25.1 s High 11.7-14.9 [facility] Comment on above: Performed By: #### L 300.3900 ####[facility] [address] [place], [address] Radiation Oncology Visiton 0 06-09-2024 Radiation Oncology Visit Normal [facility] Prothrombin Time w/INRon INR Coag (PPP) [Relative time] 1.6 {INR} Normal [facility] Comment on above: Performed By: #### L 300.3900 ####[facility] [address] [place], [address] PT Coag (PPP) [Time] 19.2 s High 11.7-14.9 [facility] Comment on above: Performed By: #### L 300.3900 ####[facility] [address] [place], [address] MR/POSTOP.ANEon 05-23-2024 MR/POSTOP.ANE Normal [facility] MR/FAJDTRTC8bb 05-23-2024 MR/POSTOPAN2 Normal [facility] Operative Reporton Operative Report Normal [facility] Protime w/INR Fingerstickon 05-23-2024 INR Coag (PPP) [Relative time] 1.3 {INR} Normal [facility] Comment on above: Result Comment: Crit ical Value > 4.0 Performed By: #### L 9200.0000 ####[facility] [address] [place], [address] Protime Coagsen 13.9 SEC Normal 11.7-14.9 [facility] Comment on above: Performed By: #### L 9200.0000 ####[facility] [address] [place], [address] [facility] 05-20-2024 CNPN Telephone (JUAN) -- MIGUE GUNTER ([id number]) 1960 M Date Time Provider Department 05/20/24 MARYANN MAIER During your visit today, we recorded the following information about you: Maryann Maier, OLY 05/20/2024 1:27 PM Signed Called and spoke [...] polyps [Z86.010] 06/30/2016 Encounter Status:Closed by MARYANN MAIER on 05/20/24 Normal [facility] NATERAon 05-20-2024 CHIARA SEE SCANNED REPORT Normal [facility] Comment on above: Performed By: #### L 900.0098 ####[facility] [address] [place], [address] CNOVon 05-17-2024 [facility] Office Visit (CORHIC ) -- MIGUE GUNTER ([id number]) 1960 M Date Time Provider Department 05/17/24 11:00 AM ERNESTO AGUIAR [facility] During your visit today, we recorded the following information about you: Willie Chamorro MD 05/17/2024 11:51 AM Attested -- Attestation signed by Ernesto Aguiar MD at 05/17/2024 11:51 AM [facility] STAFF PHYSICIAN NOTE [...] 17, 2024 TIME of SERVICE: 11:50 AM -- COLORECTAL SURGERY Follow-up May 12, 2024 Chief [...] deposit. De (more content not included)... Normal [facility] Flexible Sigmoidoscopyon Flexible sigmoidoscopy [facility] Gastrointestinal Endoscopy Patient Name: Migue Gunter Procedure Date: 05/17/2024 7:56 AM Date of : 1960 Admit Type: Ambulatory Age: 64 Room: Room 210 ([facility]-210) Gender: Male Note Status: Finalized Attending MD: Ernesto Aguiar MD, [id number] Procedure: Flexible Sigmoidoscopy Indications: Personal history of [...] antiplatelet agents. Procedure Code(s): --- Professional --- 45876, 52 CPT copyright 2020 [employer]. All rights reserved. The codes documented in this report are preliminary and upon radiologist review may be revised to meet current compliance requirements. Attending Participation: I was present and participated during the entire procedure, including non-donovan portions. Scope In: Scope Out: MD Ernesto Mckeon MD 05/17/2024 11:10:29 AM This report has been signed electronically by Ernesto Aguiar MD Number of Addenda: 0 Note Initiated On: 05/17/2024 7:56 AM Estimated Blood Loss: Estimated blood loss: none. Normal [facility] Flexible sigmoidoscopy study on 05-17-2024 [facility]astrointestinal Endoscopy Patient Name: Migue Gunter Procedure Date: 05/17/2024 7:56 AM Date of : 1960 Admit Type: Ambulatory Age: 64 Room: [place] [address] ([place] [address]) Gender: Male Note Status: Finalized Attending MD: Ernesto Aguiar MD, [id number] Procedure: Flexible Sigmoidoscopy Indications: Personal history of [...] antiplatelet agents. Procedure Code(s): --- Professional --- 68760, 52 CPT copyright 2020 [employer]. All rights reserved. The codes documented in this report are preliminary and upon radiologist review may be revised to meet current compliance requirements. Attending Participation: I was present and participated during the entire procedure, including non-donovan portions. Scope In: Scope Out: MD Ernesto Mckeon MD 05/17/2024 11:10:29 AM This report has been signed electronically by Ernesto Aguiar MD Number of Addenda: 0 Note Initiated On: 05/17/2024 7: (more content not included)... PROVATION [facility] Radiology Study observation (narrative) [facility] Ganga 05-13-2024 CNPN Telephone (CORSMN) -- JANIMIGUE Mansi ([id number]) 1960 M Date Time Provider Department 05/13/24 ERNESTO AGUIAR During your visit today, we recorded the following information about you: June Veras 05/13/2024 8:19 AM Signed [phone] Migue called and wanted to confirm if they still needed to come to the appointment on Thursday or not. Colonoscopy report was faxed over and scanned into the chart. Allergies As of Date: 05/13/2024 (No Known Allergies) Date Reviewed: 04/21/2024 Reviewed by: Darya Dean, RN - Fully Assessed Reason for Visit: [...] polyps [Z86.010] 06/30/2016 Encounter Status:Closed by JUNE VERAS on 05/13/24 Normal [facility] Colonoscopy Reporton 2 024 Colonoscopy Report Normal [facility] MR/POSTOP.ANEon 05-03-2024 MR/POSTOP.ANE Normal [facility] MR/YKTMMLHA6he 05-03-2024 MR/POSTOPAN2 Normal [facility] Protime w/INR Fingerstickon 05-03-2024 INR Coag (PPP) [Relative time] 1.1 {INR} Normal [facility] Comment on above: Result Comment: Crit ical Value > 4.0 Performed By: #### L 9200.0000 ####[facility] [address] [place], [address] Protime Coagsen 12.9 SEC Normal 11.7-14.9 [facility] Comment on above: Performed By: #### L 9200.0000 ####[facility] [address] [place], [address] Surgery Specimen Level Yancy 05-03-2024 Surgery Specimen Level IV Normal [facility] Comment on above: Performed By: #### P SUIV ####[facility] [address] [place], [address] Basic Metabolic Profile (BMP )on 04-27-2024 BUN/CRE 25.0 RATIO High 10-20 [facility] Comment on above: Order Comment: 'TROP ' Serial specimen #1, #2 or #3: 1 Performed By: #### L 100.0100, L500.2500, L501.4020 ####[facility] [address] [place], [address] CA,Total 9.3 mg/dL Normal 8.5-10.1 [facility] Comment on above: Order Comment: 'TROP ' Serial specimen #1, #2 or #3: 1 Performed By: #### L 100.0100, L500.2500, L501.4020 ####[facility] [address] [place], [address] Chloride [Moles/Vol] 105 mmol/L Normal 98-107 [facility] Comment on above: Order Comment: 'TROP ' Serial specimen #1, #2 or #3: 1 Performed By: #### L 100.0100, L500.2500, L501.4020 ####[facility] [address] [place], [address] CO2 [Moles/Vol] 27.0 mmol/L Normal 21.0-32.0 [facility] Comment on above: Order Comment: 'TROP ' Serial specimen #1, #2 or #3: 1 Performed By: #### L 100.0100, L500.2500, L501.4020 ####[facility] [address] [place], [address] Creatinine [Mass/Vol] 1.08 mg/dL Normal 0.70-1.30 [facility] Comment on above: Order Comment: 'TROP ' Serial specimen #1, #2 or #3: 1 Result Comment: The validity of the calculated GFR GFRAA in patients over70 years has not been determined. Clinical correlation isessential. Performed By: #### L 100.0100, L500.2500, L501.4020 ####[facility] [address] [place], [address] ECRCL 96.87 ml/min Normal [facility] Comment on above: Order Comment: 'TROP ' Serial specimen #1, #2 or #3: 1 Performed By: #### L 100.0100, L500.2500, L501.4020 ####[facility] [address] [place], [address] EST GFR - AA 88 mL/min Normal >60 [facility] Comment on above: Order Comment: 'TROP ' Serial specimen #1, #2 or #3: 1 Result Comment: Afri can Nigerien GFR Calc Performed By: #### L 100.0100, L500.2500, L501.4020 ####[facility] [address] [place], [address] GAP 7 Normal 5-15 [facility] Comment on above: Order Comment: 'TROP ' Serial specimen #1, #2 or #3: 1 Performed By: #### L 100.0100, L500.2500, L501.4020 ####[facility] [address] [place], [address] GFR/1.73 sq M.predicted among non-blacks MDRD (S/P/Bld) [Vol rate/Area] 73 mL/min/{1.73_m2} Normal >60 [facility] Comment on above: Order Comment: 'TROP ' Serial specimen #1, #2 or #3: 1 Result Comment: Non- GFR Calc Performed By: #### L 100.0100, L500.2500, L501.4020 ####[facility] [address] [place], [address] Glucose [Mass/Vol] 105 mg/dL Normal 74-106 [facility] Comment on above: Order Comment: 'TROP ' Serial specimen #1, #2 or #3: 1 Result Comment: Fast ing Glucose result from 100 to 125 mg/dLsuggests IMPAIRED HOMEOSTASIS per A.D.A. criteria. Performed By: #### L 100.0100, L500.2500, L501.4020 ####[facility] [address] [place], [address] Potassium [Moles/Vol] 3.8 mmol/L Normal 3.5-5.1 [facility] Comment on above: Order Comment: 'TROP ' Serial specimen #1, #2 or #3: 1 Performed By: #### L 100.0100, L500.2500, L501.4020 ####[facility] [address] [place], [address] Sodium [Moles/Vol] 139 mmol/L Normal 136-145 [facility] Comment on above: Order Comment: 'TROP ' Serial specimen #1, #2 or #3: 1 Performed By: #### L 100.0100, L500.2500, L501.4020 ####[facility] [address] [place], [address] Urea nitrogen [Mass/Vol] 27 mg/dL High 7-18 [facility] Comment on above: Order Comment: 'TROP ' Serial specimen #1, #2 or #3: 1 Performed By: #### L 100.0100, L500.2500, L501.4020 ####[facility] [address] [place], [address] CBC W/Diff, Automatedon 04-14 Absolute Lymph 0.53 X10 3/uL Low 0.83-4.51 [facility] Comment on above: Performed By: #### L 100.0100, L500.2500, L501.4020 ####[facility] [address] [place], [address] Absolute Neut 5.6 X10 3/uL Normal 2.0-7.7 [facility] Comment on above: Performed By: #### L 100.0100, L500.2500, L501.4020 ####[facility] [address] [place], [address] Basophils/100 WBC (Bld) 0.7 % Normal 0-1 [facility] Comment on above: Performed By: #### L 100.0100, L500.2500, L501.4020 ####[facility] [address] [place], [address] Eosinophils/100 WBC (Bld) 2.4 % Normal 0-5 [facility] Comment on above: Performed By: #### L 100.0100, L500.2500, L501.4020 ####[facility] [address] [place], [address] Erythrocyte distribution width (RBC) [Ratio] 14.4 % Normal 11.6-14.6 [facility] Comment on above: Performed By: #### L 100.0100, L500.2500, L501.4020 ####[facility] [address] [place], [address] Hematocrit (Bld) [Volume fraction] 41.1 % Normal 40-54 [facility] Comment on above: Performed By: #### L 100.0100, L500.2500, L501.4020 ####[facility] [address] [place], [address] Hemoglobin (Bld) [Mass/Vol] 13.2 g/dL Normal 13.0-16.5 [facility] Comment on above: Performed By: #### L 100.0100, L500.2500, L501.4020 ####[facility] [address] [place], [address] IG% 0.300 Normal 0.0-0.9 [facility] Comment on above: Result Comment: IG% - Immature Granulocytes (promyelocytes, myelocytes andmetamyelocytes) > 1% indicates that a LEFT SHIFT is Present. Performed By: #### L 100.0100, L500.2500, L501.4020 ####[facility] [address] [place], [address] Lymphocytes/100 WBC (Bld) 7.5 % Low 19-41 [facility] Comment on above: Performed By: #### L 100.0100, L500.2500, L501.4020 ####[facility] [address] [place], [address] MCH (RBC) [Entitic mass] 29.9 pg Normal 27.0-32.0 [facility] Comment on above: Performed By: #### L 100.0100, L500.2500, L501.4020 ####[facility] [address] [place], [address] MCHC (RBC) [Mass/Vol] 32.1 g/dL Normal 32-36 [facility] Comment on above: Performed By: #### L 100.0100, L500.2500, L501.4020 ####[facility] [address] [place], [address] MCV (RBC) [Entitic vol] 93.2 fL Normal 80-94 [facility] Comment on above: Performed By: #### L 100.0100, L500.2500, L501.4020 ####[facility] [address] [place], [address] Monocytes/100 WBC (Bld) 11.0 % High 0-10 [facility] Comment on above: Performed By: #### L 100.0100, L500.2500, L501.4020 ####[facility] [address] [place], [address] Neutrophils/100 WBC (Bld) 78.1 % High 47-70 [facility] Comment on above: Performed By: #### L 100.0100, L500.2500, L501.4020 ####[facility] [address] [place], [address] Nucleated RBC (Bld) [#/Vol] 0 10*3/uL Normal 0-5 [facility] Comment on above: Performed By: #### L 100.0100, L500.2500, L501.4020 ####[facility] [address] [place], [address] Platelet mean volume (Bld) [Entitic vol] 9.3 fL Normal 6.2-12.0 [facility] Comment on above: Performed By: #### L 100.0100, L500.2500, L501.4020 ####[facility] [address] [place], [address] Platelets (Bld) [#/Vol] 228 10*3/uL Normal 150-450 [facility] Comment on above: Performed By: #### L 100.0100, L500.2500, L501.4020 ####[facility] [address] [place], [address] RBC (Bld) [#/Vol] 4.41 10*6/uL Low 4.6-6.2 [facility] Comment on above: Performed By: #### L 100.0100, L500.2500, L501.4020 ####[facility] [address] [place], [address] RDW SD 49.3 fl High 35.1-43.9 [facility] Comment on above: Performed By: #### L 100.0100, L500.2500, L501.4020 ####[facility] [address] [place], [address] WBC (Bld) [#/Vol] 7.1 10*3/uL Normal 4.4-11.0 [facility] Comment on above: Performed By: #### L 100.0100, L500.2500, L501.4020 ####[facility] [address] [place], [address] Cardiology Visit Reporton Cardiology Visit Report Normal [facility] Chest 1 View (Portable)on Chest 1 View (Portable) Normal [facility] Emergency Department Summary on 04-27-2024 Emergency Department Summary Normal [facility] L501.4020on 04-27-2024 TROPONIN-I HS 9 pg/mL Normal 3.0-78.0 [facility] Comment on above: Order Comment: 'TROP ' Serial specimen #1, #2 or #3: 1 Result Comment: Plea se Note: New Test Units and Gender Specific Reference Ranges. For more information see Policy Stat Procedure [place] High Sensitivity Troponin (TNIH) and attachments. Performed By: #### L 100.0100, L500.2500, L501.4020 ####[facility] [address] [place], [address] Prothrombin Time w/INRon INR Coag (PPP) [Relative time] 2.3 {INR} Normal [facility] Comment on above: Performed By: #### L 300.3900 ####[facility] [address] [place], [address] PT Coag (PPP) [Time] 24.9 s High 11.7-14.9 [facility] Comment on above: Performed By: #### L 300.3900 ####[facility] [address] [place], [address] MRI RECTUM WO/W IVCONon 08-0 MRI RECTUM [...] rectum 07/13/2023, MRI 11/04/2023 TECHNIQUE: Magnet: Siemens Saundra 3T scanner. Multiplanar MRI with multiple sequences [...] nodes: No. Suspicious Extramesorectal lymph nodes: No. Transmission Builder: PSCB Transcribe Date/Time: May 20 2024 3:44P Dictated by : CALLIE MIRAMONTES MD This examination was interpreted and the report reviewed and electronically signed by: CALLIE MIRAMONTES MD on Apr 22 2024 1:06PM EST This document has been addended by: CALLIE MIRAMONTES MD on May 20 2024 3:54PM EST [id number] Normal [facility] CNPNon 04-19-2024 CNPN Telephone ([facility]) -- MIGUE GUNTER ([id number]) 1960 M Date Time Provider Department 04/19/24 ERNESTO AGUIAR During your visit today, we recorded the following information about you: Mary Kay Mitchell 04/19/2024 12:14 PM Signed The patient calling to discuss the timeframe for rescheduling his ortho shoulder surgery. He reports he cancelled his 04/25 surgery to proceed with the 04/21 MRI and 05/03 scope locally. [phone] Maryann Maier, OLY 04/19/2024 1:34 PM Signed Called and spoke with patient Canceled ortho surgery for now and will reschedule in May Discussed CT scan results, MRI scheduled 04/21 Colonoscopy 05/03 and results will review with DR Aguiar Follow up with Marta scheduled in May Patient appreciative of call Allergies As of Date: 04/19/2024 (No Known Allergies) Date Reviewed: 04/13/2024 Reviewed by: Zenaida Conte, RT(R) - Fully Assessed Reason for Visit: Patient Question [9107] Prescriptions as of 04/19/2024 - iv contrast [...] polyps [Z86.010] 06/30/2016 Encounter Status:Closed by MARYANN MAIER on 04/19/24 Normal [facility] Surgery Visit Reporton 04-19 Surgery Visit Report Normal [facility] ([facility] -- JANIMIGUE Mansi ([id number]) 1960 M Date Time Provider Department 04/15/24 ERNESTO AGUIAR During your visit today, we recorded the following information about you: June Veras 04/15/2024 3:16 PM Signed [phone] Myriam called back and states they are ok with getting MRI rectum done at [facility]. Would like the order placed for scheduling. Allergies As of Date: 04/15/2024 (No Known Allergies) Date Reviewed: 04/13/2024 Reviewed by: Zenaida Conte, RT(R) - Fully Assessed Reason for Visit: [...] polyps [Z86.010] 06/30/2016 Encounter Status:Closed by JUNE VERAS on 04/15/24 Normal [facility] CT ABD/PEL W IVCONon 024 CT ABD/PEL W IVCON * * *Final Report* * * DATE OF EXAM: Apr 14 2024 3:46PM [facility] 0530 - CT ABD/PEL W IVCON [...] metastatic disease in the abdomen or pelvis. Transmission Builder: [facility] Transcribe Date/Time: Apr 14 2024 4:00P Dictated by : ANDERS LILLY MD This examination was interpreted and the report reviewed and electronically signed by: ANDERS LILLY MD on Apr 14 2024 4:12PM EST [id number] Normal [facility] CT Abdomen and Pelvis W cont rast Yancy 04-14-2024 IMPRESSION: New fracture of the left greater trochanter relative to 11/11/2023. No metastatic disease in the abdomen or pelvis. Transmission Builder: [facility] Transcribe Date/Time: Apr 14 2024 4:00P Dictated by : ANDERS LILLY MD This examination was interpreted and the report reviewed and electronically signed by: ANDERS LILLY MD on Apr 14 2024 4:12PM EST DIVISION OF RADIOLOGY * * *Final Report* * * DATE OF EXAM: Apr 14 2024 3:46PM [facility] 0530 - CT ABD/PEL W IVCON [...] No additional findings. DIVISION OF RADIOLOGY Provider, [facility] - 04/14/2024 * * *Final Report* * * DATE OF EXAM: Apr 14 2024 3:46PM [facility] 0530 - CT ABD/PEL W IVCON [...] metastatic disease in the abdomen or pelvis. Transmission [facility] Transcribe Date/Time: Apr 14 2024 4:00P Dictated by : ANDERS LILLY MD This examination was interpreted and the report reviewed and electronically signed by: ANDERS LILLY MD on Apr 14 2024 4:12PM EST [facility] Radiology Study observation (narrative) [facility] CT Abdomen and Pelvis W cont rast IVOrdered By: Ccf Provider on 04-14-2024 [facility] CT CHEST W IVCONon CT CHEST W IVCON * * *Final Report* * * DATE OF EXAM: Apr 14 2024 3:46PM [facility] 0539 - CT CHEST W IVCON [...] CT is not clearly visible on the [employer] image. IMPRESSION: No CT evidence of metastatic disease in the chest. Little interval change since 07/27/2023. Transmission Builder: [facility] Transcribe Date/Time: Apr 14 2024 6:00P Dictated by : MARTHA CARMONA MD This examination was interpreted and the report reviewed and electronically signed by: MARTHA CARMONA MD on Apr 14 2024 6:10PM EST [id number] Normal [facility] CT Chest W contrast Yancy IMPRESSION: No CT evidence of metastatic disease in the chest. Little interval change since 07/27/2023. Transmission Builder: [facility] Transcribe Date/Time: Apr 14 2024 6:00P Dictated by : MARTHA CARMONA MD This examination was interpreted and the report reviewed and electronically signed by: MARTHA CARMONA MD on Apr 14 2024 6:10PM [facility] DIVISION OF RADIOLOGY * * *Final Report* * * DATE OF EXAM: Apr 14 2024 3:46PM [facility] 0539 - CT CHEST W IVCON [...] CT is not clearly visible on the [employer] image. DIVISION OF RADIOLOGY Provider, [facility] [place] - 04/14/2024 * * *Final Report* * * DATE OF EXAM: Apr 14 2024 3:46PM [facility] 0539 - CT CHEST W IVCON [...] CT is not clearly visible on the [employer] image. IMPRESSION IMPRESSION: No CT evidence of metastatic disease in the chest. Little interval change since 07/27/2023. Transmission Builder: [facility] Transcribe Date/Time: Apr 14 2024 6:00P Dictated by : MARTHA CARMONA MD This examination was interpreted and the report reviewed and electronically signed by: MARTHA CARMONA MD on Apr 14 2024 6:10PM EST [facility] Radiology Study observation (narrative) [facility] Prothrombin Time w/INRon INR Coag (PPP) [Relative time] 2.3 {INR} Normal [facility] Comment on above: Performed By: #### L 300.3900 ####[facility] [address] [place], [address] PT Coag (PPP) [Time] 25.1 s High 11.7-14.9 [facility] Comment on above: Performed By: #### L 300.3900 ####[facility] [address] [place], [address] CBC W/Diff, Automatedon 03-15 Absolute Lymph 0.62 X10 3/uL Low 0.83-4.51 [facility] Comment on above: Order Comment: Order Date: 04/08/24Order Info: [id number] - CBCD Performed By: #### L 100.0100, L501.9520, L501.9985, L501.5200, L500.4050, L500.4100 ####[facility] [address] [place], [address] Absolute Neut 4.6 X10 3/uL Normal 2.0-7.7 [facility] Comment on above: Order Comment: Order Date: 04/08/24Order Info: [id number] - CBCD Performed By: #### L 100.0100, L501.9520, L501.9985, L501.5200, L500.4050, L500.4100 ####[facility] [address] [place], [address] Basophils/100 WBC (Bld) 0.6 % Normal 0-1 [facility] Comment on above: Order Comment: Order Date: 04/08/24Order Info: [id number] - CBCD Performed By: #### L 100.0100, L501.9520, L501.9985, L501.5200, L500.4050, L500.4100 ####[facility] [address] [place], [address] Eosinophils/100 WBC (Bld) 3.6 % Normal 0-5 [facility] Comment on above: Order Comment: Order Date: 04/08/24Order Info: [id number] - CBCD Performed By: #### L 100.0100, L501.9520, L501.9985, L501.5200, L500.4050, L500.4100 ####[facility] [address] [facility] [place], [address] Erythrocyte distribution width (RBC) [Ratio] 13.4 % Normal 11.6-14.6 [facility] Comment on above: Order Comment: Order Date: 04/08/24Order Info: [id number] - CBCD Performed By: #### L 100.0100, L501.9520, L501.9985, L501.5200, L500.4050, L500.4100 ####[facility] [address] [place], [address] Hematocrit (Bld) [Volume fraction] 38.2 % Low 40-54 [facility] Comment on above: Order Comment: Order Date: 04/08/24Order Info: [id number] - CBCD Performed By: #### L 100.0100, L501.9520, L501.9985, L501.5200, L500.4050, L500.4100 ####[facility] [address] [place], [address] Hemoglobin (Bld) [Mass/Vol] 12.5 g/dL Low 13.0-16.5 [facility] Comment on above: Order Comment: Order Date: 04/08/24Order Info: 0184-1 - CBCD Performed By: #### L 100.0100, L501.9520, L501.9985, L501.5200, L500.4050, L500.4100 ####[facility] [address] [place], [address] IG% 0.300 Normal 0.0-0.9 [facility] Comment on above: Order Comment: Order Date: 04/08/24Order Info: [id number]- - CBCD Result Comment: IG% - Immature Granulocytes (promyelocytes, myelocytes andmetamyelocytes) > 1% indicates that a LEFT SHIFT is Present. Performed By: #### L 100.0100, L501.9520, L501.9985, L501.5200, L500.4050, L500.4100 ####[facility] [address] [place], [address] Lymphocytes/100 WBC (Bld) 9.8 % Low 19-41 [facility] Comment on above: Order Comment: Order Date: 04/08/24Order Info: [id number] - CBCD Performed By: #### L 100.0100, L501.9520, L501.9985, L501.5200, L500.4050, L500.4100 ####[facility] [address] [place], [address] MCH (RBC) [Entitic mass] 30.6 pg Normal 27.0-32.0 [facility] Comment on above: Order Comment: Order Date: 04/08/24Order Info: [id number] - CBCD Performed By: #### L 100.0100, L501.9520, L501.9985, L501.5200, L500.4050, L500.4100 ####[facility] [address] [place], [address] MCHC (RBC) [Mass/Vol] 32.7 g/dL Normal 32-36 [facility] Comment on above: Order Comment: Order Date: 04/08/24Order Info: [id number] - CBCD Performed By: #### L 100.0100, L501.9520, L501.9985, L501.5200, L500.4050, L500.4100 ####[facility] [address] [place], [address] MCV (RBC) [Entitic vol] 93.4 fL Normal 80-94 [facility] Comment on above: Order Comment: Order Date: 04/08/24Order Info: 0184- - CBCD Performed By: #### L 100.0100, L501.9520, L501.9985, L501.5200, L500.4050, L500.4100 ####[facility] [address] [place], [address] Monocytes/100 WBC (Bld) 12.5 % High 0-10 [facility] Comment on above: Order Comment: Order Date: 04/08/24Order Info: [id number] - CBCD Performed By: #### L 100.0100, L501.9520, L501.9985, L501.5200, L500.4050, L500.4100 ####[facility] [address] [place], [address] Neutrophils/100 WBC (Bld) 73.2 % High 47-70 [facility] Comment on above: Order Comment: Order Date: 04/08/24Order Info: [id number] - CBCD Performed By: #### L 100.0100, L501.9520, L501.9985, L501.5200, L500.4050, L500.4100 ####[facility] [address] [place], [address] Nucleated RBC (Bld) [#/Vol] 0 10*3/uL Normal 0-5 [facility] Comment on above: Order Comment: Order Date: 04/08/24Order Info: [id number] - CBCD Performed By: #### L 100.0100, L501.9520, L501.9985, L501.5200, L500.4050, L500.4100 ####[facility] [address] [place], [address] Platelet mean volume (Bld) [Entitic vol] 9.5 fL Normal 6.2-12.0 [facility] Comment on above: Order Comment: Order Date: 04/08/24Order Info: 018-1 - CBCD Performed By: #### L 100.0100, L501.9520, L501.9985, L501.5200, L500.4050, L500.4100 ####[facility] [address] [place], [address] Platelets (Bld) [#/Vol] 255 10*3/uL Normal 150-450 [facility] Comment on above: Order Comment: Order Date: 04/08/24Order Info: [id number] - CBCD Performed By: #### L 100.0100, L501.9520, L501.9985, L501.5200, L500.4050, L500.4100 ####[facility] [address] [place], [address] RBC (Bld) [#/Vol] 4.09 10*6/uL Low 4.6-6.2 [facility] Comment on above: Order Comment: Order Date: 04/08/24Order Info: [id number] - CBCD Performed By: #### L 100.0100, L501.9520, L501.9985, L501.5200, L500.4050, L500.4100 ####[facility] [address] [place], [address] RDW SD 45.4 fl High 35.1-43.9 [facility] Comment on above: Order Comment: Order Date: 04/08/24Order Info: [id number] - CBCD Performed By: #### L 100.0100, L501.9520, L501.9985, L501.5200, L500.4050, L500.4100 ####[facility] [address] [place], [address] WBC (Bld) [#/Vol] 6.3 10*3/uL Normal 4.4-11.0 [facility] Comment on above: Order Comment: Order Date: 04/08/24Order Info: [id number] - CBCD Performed By: #### L 100.0100, L501.9520, L501.9985, L501.5200, L500.4050, L500.4100 ####[facility] [address] [place], [address] Comprehensive Metabolic Prof [facility] 04-08-2024 Albumin [Mass/Vol] 3.3 g/dL Normal 3.2-5.0 [facility] Comment on above: Order Comment: Order Date: 04/08/24Order Info: [id number] - CMPOrder Info: [id number] - LIPIDOrder Info: [id number] - MGOrder Info: [id number] - TSH Performed By: #### L 100.0100, L501.9520, L501.9985, L501.5200, L500.4050, L500.4100 ####[facility] [address] [place], [address] Albumin/Globulin [Mass ratio] 0.8 {ratio} Low 0.9-2.4 [facility] Comment on above: Order Comment: Order Date: 04/08/24Order Info: 86-1 - CMPOrder Info: [id number] - LIPIDOrder Info: [id number] - MGOrder Info: [id number] - TSH Performed By: #### L 100.0100, L501.9520, L501.9985, L501.5200, L500.4050, L500.4100 ####[facility] [address] [place], [address] ALK P 92 U/L Normal 45-117 [facility] Comment on above: Order Comment: Order Date: 04/08/24Order Info: [id number] - CMPOrder Info: [id number] - LIPIDOrder Info: - MGOrder Info: 3 - TSH Performed By: #### L 100.0100, L501.9520, L501.9985, L501.5200, L500.4050, L500.4100 ####[facility] [address] [place], [place], [address] ALT [Catalytic activity/Vol] 24 U/L Normal 16-61 [facility] Comment on above: Order Comment: Order Date: 04/08/24Order Info: [id number] - CMPOrder Info: [id number] - LIPIDOrder Info: - MGOrder Info: [id number] - TSH Performed By: #### L 100.0100, L501.9520, L501.9985, L501.5200, L500.4050, L500.4100 ####[facility] [address] [place], [address] AST [Catalytic activity/Vol] 18 U/L Normal 15-37 [facility] Comment on above: Order Comment: Order Date: 04/08/24Order Info: 86-1 - CMPOrder Info: [id number] - LIPIDOrder Info: [id number] - MGOrder Info: [id number] - TSH Performed By: #### L 100.0100, L501.9520, L501.9985, L501.5200, L500.4050, L500.4100 ####[facility] [address] [place], [address] Bilirubin [Mass/Vol] 0.30 mg/dL Normal 0.20-1.00 [facility] Comment on above: Order Comment: Order Date: 04/08/24Order Info: 86-1 - CMPOrder Info: [id number] - LIPIDOrder Info: [id number] - MGOrder Info: [id number] - TSH Result Comment: For patients on eltrombopag therapy, use of Dimension [place] TBIL is not recommended. Performed By: #### L 100.0100, L501.9520, L501.9985, L501.5200, L500.4050, L500.4100 ####[facility] [address] [place], [address] BUN/CRE 16.4 RATIO Normal 10-20 [facility] Comment on above: Order Comment: Order Date: 04/08/24Order Info: 785-1 - CMPOrder Info: [id number] - LIPIDOrder Info: [id number] - MGOrder Info: [id number] - TSH Performed By: #### L 100.0100, L501.9520, L501.9985, L501.5200, L500.4050, L500.4100 ####[facility] [address] [place], [address] CA,Total 8.9 mg/dL Normal 8.5-10.1 [facility] Comment on above: Order Comment: Order Date: 04/08/24Order Info: 86-1 - CMPOrder Info: [id number] - LIPIDOrder Info: [id number] - MGOrder Info: [id number] - TSH Performed By: #### L 100.0100, L501.9520, L501.9985, L501.5200, L500.4050, L500.4100 ####[facility] [address] [place], [address] Chloride [Moles/Vol] 109 mmol/L High 98-107 [facility] Comment on above: Order Comment: Order Date: 04/08/24Order Info: 86-1 - CMPOrder Info: [id number] - LIPIDOrder Info: [id number] - MGOrder Info: [id number] - TSH Performed By: #### L 100.0100, L501.9520, L501.9985, L501.5200, L500.4050, L500.4100 ####[facility] [address] [place], [address] CO2 [Moles/Vol] 26.0 mmol/L Normal 21.0-32.0 [facility] Comment on above: Order Comment: Order Date: 04/08/24Order Info: 785- - CMPOrder Info: [id number] - LIPIDOrder Info: [id number] - MGOrder Info: [id number] - TSH Performed By: #### L 100.0100, L501.9520, L501.9985, L501.5200, L500.4050, L500.4100 ####[facility] [address] [place], [address] Creatinine [Mass/Vol] 1.34 mg/dL High 0.70-1.30 [facility] Comment on above: Order Comment: Order Date: 04/08/24Order Info: 785- - CMPOrder Info: - LIPIDOrder Info: [id number] - MGOrder Info: [id number] - TSH Result Comment: The validity of the calculated GFR GFRAA in patients over70 years has not been determined. Clinical correlation isessential. Performed By: #### L 100.0100, L501.9520, L501.9985, L501.5200, L500.4050, L500.4100 ####[facility] [address] [place], [address] EST GFR - AA 69 mL/min Normal >60 [facility] Comment on above: Order Comment: Order Date: 04/08/24Order Info: [id number] - CMPOrder Info: [id number] - LIPIDOrder Info: [id number] - MGOrder Info: [id number] - TSH Result Comment: Afri can Nigerien GFR Calc Performed By: #### L 100.0100, L501.9520, L501.9985, L501.5200, L500.4050, L500.4100 ####[facility] [address] [place], [address] GAP 6 Normal 5-15 [facility] Comment on above: Order Comment: Order Date: 04/08/24Order Info: [id number] - CMPOrder Info: [id number] - LIPIDOrder Info: [id number] - MGOrder Info: [id number] - TSH Performed By: #### L 100.0100, L501.9520, L501.9985, L501.5200, L500.4050, L500.4100 ####[facility] [address] [place], [address] GFR/1.73 sq M.predicted among non-blacks MDRD (S/P/Bld) [Vol rate/Area] 57 mL/min/{1.73_m2} Low >60 [facility] Comment on above: Order Comment: Order Date: 04/08/24Order Info: 785- - CMPOrder Info: [id number] - LIPIDOrder Info: [id number] - MGOrder Info: [id number] - TSH Result Comment: Non- GFR Calc Performed By: #### L 100.0100, L501.9520, L501.9985, L501.5200, L500.4050, L500.4100 ####[facility] [address] [place], [address] Globulin (S) [Mass/Vol] 3.9 g/dL Normal 2.2-4.2 [facility] Comment on above: Order Comment: Order Date: 04/08/24Order Info: 785- - CMPOrder Info: [id number] - LIPIDOrder Info: [id number] - MGOrder Info: 3 - TSH Performed By: #### L 100.0100, L501.9520, L501.9985, L501.5200, L500.4050, L500.4100 ####[facility] [address] [place], [address] Glucose [Mass/Vol] 102 mg/dL Normal 74-106 [facility] Comment on above: Order Comment: Order Date: 04/08/24Order Info: [id number] - CMPOrder Info: [id number] - LIPIDOrder Info: [id number] - MGOrder Info: [id number] - TSH Result Comment: Fast ing Glucose result from 100 to 125 mg/dLsuggests IMPAIRED HOMEOSTASIS per A.D.A. criteria. Performed By: #### L 100.0100, L501.9520, L501.9985, L501.5200, L500.4050, L500.4100 ####[facility] [address] [place], [address] Potassium [Moles/Vol] 4.0 mmol/L Normal 3.5-5.1 [facility] Comment on above: Order Comment: Order Date: 04/08/24Order Info: 785- - CMPOrder Info: - LIPIDOrder Info: [id number] - MGOrder Info: [id number] - TSH Performed By: #### L 100.0100, L501.9520, L501.9985, L501.5200, L500.4050, L500.4100 ####[facility] [address] [place], [address] Sodium [Moles/Vol] 141 mmol/L Normal 136-145 [facility] Comment on above: Order Comment: Order Date: 04/08/24Order Info: 785- - CMPOrder Info: [id number] - LIPIDOrder Info: [id number] - MGOrder Info: [id number] - TSH Performed By: #### L 100.0100, L501.9520, L501.9985, L501.5200, L500.4050, L500.4100 ####[facility] [address] [place], [address] T PROT 7.2 g/dL Normal 6.4-8.2 [facility] Comment on above: Order Comment: Order Date: 04/08/24Order Info: [id number] - CMPOrder Info: [id number] - LIPIDOrder Info: [id number] - MGOrder Info: [id number] - TSH Performed By: #### L 100.0100, L501.9520, L501.9985, L501.5200, L500.4050, L500.4100 ####[facility] [address] [place], [address] Urea nitrogen [Mass/Vol] 22 mg/dL High 7-18 [facility] Comment on above: Order Comment: Order Date: 04/08/24Order Info: [id number] - CMPOrder Info: [id number] - LIPIDOrder Info: [id number] - MGOrder Info: [id number] - TSH Performed By: #### L 100.0100, L501.9520, L501.9985, L501.5200, L500.4050, L500.4100 ####[facility] [address] [place], [address] Hemoglobin A1con 04-08-2024 HbA1c (Bld) [Mass fraction] 5.6 % Normal 3.8-5.6 [facility] Comment on above: Order Comment: Order Date: 04/08/24Order Info: [id number] - A1C Result Comment: Norm al < 5.7 % Prediabetic 5.7 - 6.4 % Diabetic >or= 6.5 % Please note range changes. Performed By: #### L 100.0100, L501.9520, L501.9985, L501.5200, L500.4050, L500.4100 ####[facility] [address] [place], [address] Lipid Profileon 04-08-2024 Cholesterol [Mass/Vol] 145 mg/dL Normal 200 [facility] Comment on above: Order Comment: Order Date: 04/08/24Order Info: 86-1 - CMPOrder Info: [id number] - LIPIDOrder Info: [id number] - MGOrder Info: [id number] - TSH Result Comment: <200 mg/dL Desirable 200-240 mg/dL Borderline >240 mg/dL High Risk Performed By: #### L 100.0100, L501.9520, L501.9985, L501.5200, L500.4050, L500.4100 ####[facility] [address] [place], [address] Cholesterol in HDL [Mass/Vol] 37 mg/dL Low [facility] Comment on above: Order Comment: Order Date: 04/08/24Order Info: 785- - CMPOrder Info: - LIPIDOrder Info: - MGOrder Info: [id number] - TSH Result Comment: The drugs N-Acetylcysteine and Metamizole may falselydepress this assay. Reference Range HDL <40 mg/dL Low HDL Cholesterol HDL >or= 60 mg/dL High HDL Cholesterol Performed By: #### L 100.0100, L501.9520, L501.9985, L501.5200, L500.4050, L500.4100 ####[facility] [address] [place], [address] Cholesterol in LDL [Mass/Vol] 79 mg/dL Normal 0-130 [facility] Comment on above: Order Comment: Order Date: 04/08/24Order Info: [id number] - CMPOrder Info: [id number] - LIPIDOrder Info: [id number] - MGOrder Info: [id number] - TSH Performed By: #### L 100.0100, L501.9520, L501.9985, L501.5200, L500.4050, L500.4100 ####[facility] [address] [place], [address] Cholesterol in VLDL [Mass/Vol] 29 mg/dL Normal 5-40 [facility] Comment on above: Order Comment: Order Date: 04/08/24Order Info: [id number] - CMPOrder Info: - LIPIDOrder Info: - MGOrder Info: 3 - TSH Performed By: #### L 100.0100, L501.9520, L501.9985, L501.5200, L500.4050, L500.4100 ####[facility] [address] [place], [place], [phone] Triglyceride [Mass/Vol] 146 mg/dL Normal [facility] Comment on above: Order Comment: Order Date: 04/08/24Order Info: [id number] - CMPOrder Info: - LIPIDOrder Info: - MGOrder Info: 3 - TSH Result Comment: The drugs N-Acetylcysteine and Metamizole may falselydepress this assay.Serum Triglycerides Reference Interval Normal <150 mg/dL Borderline high 150 - 199 mg/dL High 200 - 499 mg/dL Very High > or = 500 mg/dL Performed By: #### L 100.0100, L501.9520, L501.9985, L501.5200, L500.4050, L500.4100 ####[facility] [address] [place], [place], [id number] Magnesiumon 04-08-2024 Magnesium [Mass/Vol] 2.3 mg/dL Normal 1.6-2.6 [facility] Comment on above: Order Comment: Order Date: 04/08/24Order Info: [id number] - CMPOrder Info: - LIPIDOrder Info: - MGOrder Info: [id number] - TSH Performed By: #### L 100.0100, L501.9520, L501.9985, L501.5200, L500.4050, L500.4100 ####[facility] [address] [place], [place], [phone] Thyroid Stim Hormone (TSH)on 07-26-2024 TSH 1.75 uIU/mL Normal 0.358-3.74 [facility] Comment on above: Order Comment: Order Date: 04/08/24Order Info: [id number] - CMPOrder Info: [id number] - LIPIDOrder Info: [id number] - MGOrder Info: [id number] - TSH Performed By: #### L 100.0100, L501.9520, L501.9985, L501.5200, L500.4050, L500.4100 ####[facility] [address] [place], [address] Emergency Department Summary on 04-03-2024 Emergency Department Summary Normal [facility] Prothrombin Time w/INRon INR Coag (PPP) [Relative time] 3.7 {INR} Normal [facility] Comment on above: Performed By: #### L 300.3900 ####[facility] [address] [place], [address] PT Coag (PPP) [Time] 36.0 s High 11.7-14.9 [facility] Comment on above: Performed By: #### L 300.3905 ####[facility] [address] [place], [address] CREATININE BLDon 03-28-2024 Creatinine [Mass/Vol] 1.06 mg/dL Normal 0.73-1.22 [facility] Comment on above: Order Comment: Speci men Type: BLOOD SPECIMENOrdering Facility: [facility] Address: [address] [id number] Performed By: #### C RET1 ####[facility] LABCLIA [id number] [place] [id number] [place] Creatinine and Glomerular filtration rate.predicted panel (S/P/Bld) 78 mL/min/1.73m??? Normal >=60 [facility] Comment on above: Order Comment: Speci men Type: BLOOD SPECIMENOrdering Facility: [facility] Address: [address], [place] [address] Result Comment: Laureen mated Glomerular Filtration Rate [...] accurately reflect actual GFR. Performed By: #### C RET1 ####[facility] LABCLIA [id number] [facility] [place] [address] [place] Abdomen/Pelvis without Conto n 03-23-2024 Abdomen/Pelvis without Cont Normal [facility] CBC W/Diff, Automatedon 03-14-2023 Absolute Lymph 0.44 X10 3/uL Low 0.83-4.51 [facility] Comment on above: Performed By: #### L 500.4050, L100.0100 ####[facility] [address] [place], [address] Absolute Neut 5.6 X10 3/uL Normal 2.0-7.7 [facility] Comment on above: Performed By: #### L 500.4050, L100.0100 ####[facility] [address] [place], [address] Basophils/100 WBC (Bld) 0.6 % Normal 0-1 [facility] Comment on above: Performed By: #### L 500.4050, L100.0100 ####[facility] [address] [place], [address] Eosinophils/100 WBC (Bld) 3.3 % Normal 0-5 [facility] Comment on above: Performed By: #### L 500.4050, L100.0100 ####[facility] [address] [place], [address] Erythrocyte distribution width (RBC) [Ratio] 13.2 % Normal 11.6-14.6 [facility] Comment on above: Performed By: #### L 500.4050, L100.0100 ####[facility] [address] [place], [address] Hematocrit (Bld) [Volume fraction] 37.2 % Low 40-54 [facility] Comment on above: Performed By: #### L 500.4050, L100.0100 ####[facility] [address] [place], [address] Hemoglobin (Bld) [Mass/Vol] 12.0 g/dL Low 13.0-16.5 [facility] Comment on above: Performed By: #### L 500.4050, L100.0100 ####[facility] [address] [place], [address] IG% 0.300 Normal 0.0-0.9 [facility] Comment on above: Result Comment: IG% - Immature Granulocytes (promyelocytes, myelocytes andmetamyelocytes) > 1% indicates that a LEFT SHIFT is Present. Performed By: #### L 500.4050, L100.0100 ####[facility] [address] [place], [address] Lymphocytes/100 WBC (Bld) 6.3 % Low 19-41 [facility] Comment on above: Performed By: #### L 500.4050, L100.0100 ####[facility] [address] [place], [address] MCH (RBC) [Entitic mass] 29.9 pg Normal 27.0-32.0 [facility] Comment on above: Performed By: #### L 500.4050, L100.0100 ####[facility] [address] [place], [address] MCHC (RBC) [Mass/Vol] 32.3 g/dL Normal 32-36 [facility] Comment on above: Performed By: #### L 500.4050, L100.0100 ####[facility] [address] [place], [address] MCV (RBC) [Entitic vol] 92.8 fL Normal 80-94 [facility] Comment on above: Performed By: #### L 500.4050, L100.0100 ####[facility] [address] [place], [address] Monocytes/100 WBC (Bld) 10.3 % High 0-10 [facility] Comment on above: Performed By: #### L 500.4050, L100.0100 ####[facility] [address] [place], [address] Neutrophils/100 WBC (Bld) 79.2 % High 47-70 [facility] Comment on above: Performed By: #### L 500.4050, L100.0100 ####[facility] [address] [place], [address] Nucleated RBC (Bld) [#/Vol] 0 10*3/uL Normal 0-5 [facility] Comment on above: Performed By: #### L 500.4050, L100.0100 ####[facility] [address] [place], [address] Platelet mean volume (Bld) [Entitic vol] 8.9 fL Normal 6.2-12.0 [facility] Comment on above: Performed By: #### L 500.4050, L100.0100 ####[facility] [address] [place], [address] Platelets (Bld) [#/Vol] 242 10*3/uL Normal 150-450 [facility] Comment on above: Performed By: #### L 500.4050, L100.0100 ####[facility] [address] [place], [address] RBC (Bld) [#/Vol] 4.01 10*6/uL Low 4.6-6.2 [facility] Comment on above: Performed By: #### L 500.4050, L100.0100 ####[facility] [address] [place], [address] RDW SD 45.4 fl High 35.1-43.9 [facility] Comment on above: Performed By: #### L 500.4050, L100.0100 ####[facility] [address] [place], [address] WBC (Bld) [#/Vol] 7.0 10*3/uL Normal 4.4-11.0 [facility] Comment on above: Performed By: #### L 500.4050, L100.0100 ####[facility] [address] [place], [address] Comprehensive Metabolic Prof [facility] 03-23-2024 Albumin [Mass/Vol] 3.5 g/dL Normal 3.2-5.0 [facility] Comment on above: Performed By: #### L 500.4050, L100.0100 ####[facility] [address] [place], [address] Albumin/Globulin [Mass ratio] 1.0 {ratio} Normal 0.9-2.4 [facility] Comment on above: Performed By: #### L 500.4050, L100.0100 ####[facility] [address] [place], [address] ALK P 100 U/L Normal 45-117 [facility] Comment on above: Performed By: #### L 500.4050, L100.0100 ####[facility] [address] [place], [address] ALT [Catalytic activity/Vol] 24 U/L Normal 16-61 [facility] Comment on above: Performed By: #### L 500.4050, L100.0100 ####[facility] [address] [place], [address] AST [Catalytic activity/Vol] 15 U/L Normal 15-37 [facility] Comment on above: Performed By: #### L 500.4050, L100.0100 ####[facility] [address] [place], [address] Bilirubin [Mass/Vol] 0.30 mg/dL Normal 0.20-1.00 [facility] Comment on above: Result Comment: For patients on eltrombopag therapy, use of Dimension [place] TBIL is not recommended. Performed By: #### L 500.4050, L100.0100 ####[facility] [address] [place], [address] BUN/CRE 22.5 RATIO High 10-20 [facility] Comment on above: Performed By: #### L 500.4050, L100.0100 ####[facility] [address] [place], [address] CA,Total 9.4 mg/dL Normal 8.5-10.1 [facility] Comment on above: Performed By: #### L 500.4050, L100.0100 ####[facility] [address] [place], [address] Chloride [Moles/Vol] 108 mmol/L High 98-107 [facility] Comment on above: Performed By: #### L 500.4050, L100.0100 ####[facility] [address] [place], [address] CO2 [Moles/Vol] 26.0 mmol/L Normal 21.0-32.0 [facility] Comment on above: Performed By: #### L 500.4050, L100.0100 ####[facility] [address] [place], [address] Creatinine [Mass/Vol] 1.11 mg/dL Normal 0.70-1.30 [facility] Comment on above: Result Comment: The validity of the calculated GFR GFRAA in patients over70 years has not been determined. Clinical correlation isessential. Performed By: #### L 500.4050, L100.0100 ####[facility] [address] [place], [address] ECRCL 93.79 ml/min Normal [facility] Comment on above: Performed By: #### L 500.4050, L100.0100 ####[facility] [address] [place], [address] EST GFR - AA 85 mL/min Normal >60 [facility] Comment on above: Result Comment: Afri can [place] GFR Calc Performed By: #### L 500.4050, L100.0100 ####[facility] [address] [place], [address] GAP 7 Normal 5-15 [facility] Comment on above: Performed By: #### L 500.4050, L100.0100 ####[facility] [address] [place], [address] GFR/1.73 sq M.predicted among non-blacks MDRD (S/P/Bld) [Vol rate/Area] 71 mL/min/{1.73_m2} Normal >60 [facility] Comment on above: Result Comment: Non- GFR Calc Performed By: #### L 500.4050, L100.0100 ####[facility] [address] [place], [address] Globulin (S) [Mass/Vol] 3.5 g/dL Normal 2.2-4.2 [facility] Comment on above: Performed By: #### L 500.4050, L100.0100 ####[facility] [address] [place], [address] Glucose [Mass/Vol] 112 mg/dL High 74-106 [facility] Comment on above: Result Comment: Fast ing Glucose result from 100 to 125 mg/dLsuggests IMPAIRED HOMEOSTASIS per A.D.A. criteria. Performed By: #### L 500.4050, L100.0100 ####[facility] [address] [place], [address] Potassium [Moles/Vol] 3.5 mmol/L Normal 3.5-5.1 [facility] Comment on above: Performed By: #### L 500.4050, L100.0100 ####[facility] [address] [place], [address] Sodium [Moles/Vol] 141 mmol/L Normal 136-145 [facility] Comment on above: Performed By: #### L 500.4050, L100.0100 ####[facility] [address] [place], [address] T PROT 7.0 g/dL Normal 6.4-8.2 [facility] Comment on above: Performed By: #### L 500.4050, L100.0100 ####[facility] [address] [place], [address] Urea nitrogen [Mass/Vol] 25 mg/dL High 7-18 [facility] Comment on above: Performed By: #### L 500.4050, L100.0100 ####[facility] [address] [place], [address] Emergency Department Summary on 03-23-2024 Emergency Department Summary Normal [facility] Prothrombin Time w/INRon INR Coag (PPP) [Relative time] 2.8 {INR} Normal [facility] Comment on above: Performed By: #### L 300.3900 ####[facility] [address] [place], [address] PT Coag (PPP) [Time] 29.6 s High 11.7-14.9 [facility] Comment on above: Performed By: #### L 300.3900 ####[facility] [address] [place], [address] Urinalysis, Completeon 03-23 EPI,TRANSITION 0-5 SEEN Normal 0-5 [facility] Comment on above: Order Comment: COLLE CTOR TO SPECIFY Performed By: #### L 400.0001 ####[facility] [address] [place], [address] BACTERIA 1+ /hpf Normal None Seen [facility] Comment on above: Order Comment: KATELYN CTOR TO SPECIFY Performed By: #### L 400.0001 ####[facility] [address] [place], [address] EPI,SQUAMOUS 5-10 SEEN Normal 0-5 [facility] Comment on above: Order Comment: KATELYN CTOR TO SPECIFY Performed By: #### L 400.0001 ####[facility] [address] [place], [address] Mucus Ql (Urine sed) 1+ /hpf Normal [facility] Comment on above: Order Comment: KATELYN CTOR TO SPECIFY Performed By: #### L 400.0001 ####[facility] [address] [place], [address] RBC > 100 SEEN Normal 0-5 [facility] Comment on above: Order Comment: KATELYN CTOR TO SPECIFY Performed By: #### L 400.0001 ####[facility] [address] [place], [address] WBC 0-5 SEEN Normal 0-5 [facility] Comment on above: Order Comment: KATELYN CTOR TO SPECIFY Performed By: #### L 400.0001 ####[facility] [address] [place], [address] CNOVon 03-01-2024 CNOV Office Visit ([facility] ) -- MIGUE GUNTER ([id number]) 1960 M Date Time Provider Department 03/01/24 8:30 AM ERNESTO AGUIAR [facility] During your visit today, we recorded the [...] closed Resting tone: NORMAL Squeeze tone: NORMAL Hospital Account Manager present: Yes, Miranda Gutierrez Flexible sigmoidoscopy: Procedure: [...] locally advanced (more content not included)... Normal [facility] Flexible Sigmoidoscopyon Flexible sigmoidoscopy [facility] Cancer Gastrointestinal Endoscopy Patient Name: Migue Gunter Procedure Date: 03/01/2024 7:21 AM Date of : 1960 Admit Type: Ambulatory Age: 63 Room: [address] ([address] [address]) Gender: Male Note Status: Finalized Attending MD: Ernesto Aguiar MD, [id number] Procedure: Flexible Sigmoidoscopy Indications: Personal history of [...] prior dose. Procedure Code(s): --- Professional --- 72329, Sigmoidoscopy, flexible; diagnostic, including collection of specimen(s) by brushing or washing, when performed (separate procedure) CPT copyright 2020 [employer]. All rights reserved. The codes documented in this report are preliminary and upon radiologist review may be revised to meet current compliance requirements. Attending Participation: I personally performed the entire procedure. Scope In: Scope Out: MD Ernesto Mckeon MD 03/01/2024 8:52:16 AM This report has been signed electronically by Ernesto Aguiar MD Number of Addenda: 0 Note Initiated On: 03/01/2024 7:21 AM Estimated Blood Loss: Estimated blood loss: none. Normal [facility] Flexible sigmoidoscopy study on 03-01-2024 [facility] Cancer Gastrointestinal Endoscopy Patient Name: Migue Gunter Procedure Date: 03/01/2024 7:21 AM Date of : 1960 Admit Type: Ambulatory Age: 63 Room: [address] [address] ([place] [address]) Gender: Male Note Status: Finalized Attending MD: Ernesto Aguiar MD, [id number] Procedure: Flexible Sigmoidoscopy Indications: Personal history of [...] prior dose. Procedure Code(s): --- Professional --- 41346, Sigmoidoscopy, flexible; diagnostic, including collection of specimen(s) by brushing or washing, when performed (separate procedure) CPT copyright 202 [employer]. All rights reserved. The codes documented in this report are preliminary and upon radiologist review may be revised to meet current compliance requirements. Attending Participation: I personally performed the entire procedure. Scope In: Scope Out: MD Ernesto Mckeon MD 03/01/2024 8:52:16 AM This report has been signed electronically by Ernesto Aguiar MD Number of Addenda: 0 Note Initiated On: 03/01/2024 7:21 AM Estimated Blood Loss: Estimated blood loss: none. PROVATION [facility] Radiology Study observation (narrative) [facility] No Panel InformationOrdered By: Jt Bird on 12-30-2023 24.1 SECONDS 11.7-14.9 [facility] 2.2 [facility] Absolute lymphocyte countOrd ered By: Andre Quesada on 12-15-2023 Lymphocytes Auto (Unsp spec) [#/Vol] 0.38 10*3/uL 0.83-4.51 [facility] Automated lymphocyte count a s percentage of total leukocytesOrdered By: Andre Quesada on 12-15-2023 Lymphocytes/100 WBC Auto (Unsp spec) 6.1 % 19-41 [facility] Basophil percentageOrdered B y: Andre Quesada on 12-15-2023 Basophil percentage 11.7 g/dL 13.0-16.5 [facility] Basophil percentage 102 mg/dL 74-106 [facility] Basophil percentage 6.6 g/dL 6.4-8.2 [facility] Basophil percentage 0.30 mg/dL 0.20-1.00 [facility] Basophil percentage 142 mmol/L 136-145 [facility] Basophil percentage 3.6 mmol/L 3.5-5.1 [facility] Basophil percentage 109 mmol/L 98-107 [facility] Basophil percentage 248 U/L 87-241 [facility] Basophils (Bld) [#/Vol] 6.3 10*3/uL 4.4-11.0 [facility] Basophils (Bld) [#/Vol] 4.9 10*3/uL 2.0-7.7 [facility] Basophils/100 WBC (Bld) 78.2 % 47-70 [facility] Basophils/100 WBC (Bld) 11.5 % 0-10 [facility] Basophils/100 WBC (Bld) 2.6 % 0-5 [facility] Basophils/100 WBC (Bld) 1.0 % 0-1 [facility] Determination of erythrocyte mean corpuscular volume (MCV)Ordered By: Andre Quesada on 12-15-2023 MCV (RBC) [Entitic vol] 106.6 fL 80-94 [facility] Erythrocyte distribution wid th ratioOrdered By: Andre Quesada on 12-15-2023 Erythrocyte distribution width (RBC) [Ratio] 13.2 % 11.6-14.6 [facility] Erythrocyte distribution wid th standard deviationOrdered By: Andre Quesada on 12-15-2023 Erythrocyte distribution width (RBC) [Entitic vol] 51.9 fL 35.1-43.9 [facility] Estimated glomerular filtrat ion rate (GFR) AmericanOrdered By: Andre Quesada on 12-15-2023 Estimated GFR (MDRD) Amer 121 mL/min >60 [facility] Comment on above: GFR Calc Hematocrit Auto (Bld) [Volum e fraction]Ordered By: Andre Quesada on 12-15-2023 Hematocrit (Bld) [Volume fraction] 35.5 % 40-54 [facility] Immature granulocytes/100 WB C Auto (Bld)Ordered By: Andre Quesada on 12-15-2023 Immature granulocytes/100 WBC (Bld) 0.600 % 0.0-0.9 [facility] Iron measurement (mass/mass) Ordered By: Andre Quesada on 12-15-2023 Iron (Unsp spec) [Mass/Mass] 62 ug/dL 65-175 [facility] No Panel InformationOrdered By: Andre Quesada on 12-15-2023 35.1 pg 27.0-32.0 [facility] 33.0 g/dL 32-36 [facility] 246 K/mm3 150-450 [facility] 9.0 fl 6.2-12.0 [facility] 0 % 0-5 [facility] 100 mL/min >60 [facility] 121 mL/min >60 [facility] 127.10 ml/min [facility] 24.4 RATIO 10-20 [facility] 3.6 g/dL 2.2-4.2 [facility] 0.8 RATIO 0.9-2.4 [facility] 71 U/L 45-117 [facility] 42 U/L 16-61 [facility] 27.0 mmol/L 21.0-32.0 [facility] 253 ug/dL 250-450 [facility] 65 ng/mL 26-388 [facility] No Panel InformationOrdered By: Cameron Childers on 12-15-2023 19.9 SECONDS 11.7-14.9 [facility] 1.7 [facility] RBC Auto (Bld) [#/Vol]Ordere d By: Andre Quesada on 12-15-2023 RBC (Bld) [#/Vol] 3.33 10*6/uL 4.6-6.2 [facility] Serum or plasma calcium wilner urement (mass/volume)Ordered By: Andre Quesada on 12-15-2023 Calcium [Mass/Vol] 8.9 mg/dL 8.5-10.1 [facility] Serum or plasma carcinoembry onic antigen measurement (mass/volume)Ordered By: Andre Quesada on 12-15-2023 Carcinoembryonic Ag [Mass/Vol] 1.7 ng/mL 0.0-4.7 [facility] Serum or plasma creatinine m easurement (mass/volume)Ordered By: Andre Quesada on 12-15-2023 Creatinine [Mass/Vol] 0.82 mg/dL 0.70-1.30 [facility] Serum or plasma iron saturat ion measurement (mass fraction)Ordered By: Andre Quesada on 12-15-2023 Iron saturation [Mass fraction] 24.5 % 15.0-55.0 [facility] Serum or plasma urea nitroge n measurement (mass/volume)Ordered By: Andre Quesada on 12-15-2023 Urea nitrogen [Mass/Vol] 20 mg/dL 7-18 [facility] Thin prep Papanicolaou smear with manual screeningOrdered By: Andre Quesada on 12-15-2023 Thin prep Papanicolaou smear with manual screening 3.0 g/dL 3.2-5.0 [facility] Thin prep Papanicolaou smear with manual screening 22 U/L 15-37 [facility] Thin prep Papanicolaou smear with manual screening 6 5-15 [facility] Absolute lymphocyte countOrd ered By: Jt Membreno on 12-10-2023 Lymphocytes Auto (Unsp spec) [#/Vol] 0.42 10*3/uL 0.83-4.51 [facility] Automated lymphocyte count a s percentage of total leukocytesOrdered By: Jt Membreno on 12-10-2023 Lymphocytes/100 WBC Auto (Unsp spec) 6.7 % 19-41 [facility] Basophil percentageOrdered B y: Jt Membreno on 12-10-2023 Basophil percentage 12.1 g/dL 13.0-16.5 [facility] Basophil percentage 95 mg/dL 74-106 [facility] Basophil percentage 7.0 g/dL 6.4-8.2 [facility] Basophil percentage 0.40 mg/dL 0.20-1.00 [facility] Basophil percentage 139 mmol/L 136-145 [facility] Basophil percentage 4.1 mmol/L 3.5-5.1 [facility] Basophil percentage 110 mmol/L 98-107 [facility] Basophils (Bld) [#/Vol] 6.3 10*3/uL 4.4-11.0 [facility] Basophils (Bld) [#/Vol] 4.9 10*3/uL 2.0-7.7 [facility] Basophils/100 WBC (Bld) 77.9 % 47-70 [facility] Basophils/100 WBC (Bld) 10.4 % 0-10 [facility] Basophils/100 WBC (Bld) 2.9 % 0-5 [facility] Basophils/100 WBC (Bld) 0.8 % 0-1 [facility] Blood manual differential co mment interpretation (narrative result)Ordered By: Jt Membreno on 12-10-2023 Manual differential comment Aime (Bld) [Interp] SEE COMMENT [facility] Blood platelet adequacy dete ction by light microscopyOrdered By: Jt Membreno on 12-10-2023 Platelets LM Ql (Bld) ADEQUATE ADEQ [facility] Determination of erythrocyte mean corpuscular volume (MCV)Ordered By: Jt Membreno on 12-10-2023 MCV (RBC) [Entitic vol] 107.6 fL 80-94 [facility] Erythrocyte distribution wid th ratioOrdered By: Jt Membreno on 12-10-2023 Erythrocyte distribution width (RBC) [Ratio] 13.8 % 11.6-14.6 [facility] Erythrocyte distribution wid th standard deviationOrdered By: Jt Membreno on 12-10-2023 Erythrocyte distribution width (RBC) [Entitic vol] 55.1 fL 35.1-43.9 [facility] Hematocrit Auto (Bld) [Volum e fraction]Ordered By: Jt Membreno on 12-10-2023 Hematocrit (Bld) [Volume fraction] 36.9 % 40-54 [facility] Immature granulocytes/100 WB C Auto (Bld)Ordered By: Jt Membreno on 12-10-2023 Immature granulocytes/100 WBC (Bld) 1.300 % 0.0-0.9 [facility] Macrocytes detectionOrdered By: Jt Membreno on 12-10-2023 Macrocytes Ql (Bld) 1+ [facility] No Panel InformationOrdered By: Jt Membreno on 12-10-2023 35.3 pg 27.0-32.0 [facility] 32.8 g/dL 32-36 [facility] 276 K/mm3 150-450 [facility] 9.0 fl 6.2-12.0 [facility] 0 % 0-5 [facility] 1+ [facility] 97 mL/min >60 [facility] 118 mL/min >60 [facility] 29.8 RATIO 10-20 [facility] 3.7 g/dL 2.2-4.2 [facility] 0.9 RATIO 0.9-2.4 [facility] 84 U/L 45-117 [facility] 48 U/L 16-61 [facility] 2.6 mg/dL 1.6-2.6 [facility] 23.0 mmol/L 21.0-32.0 [facility] No Panel InformationOrdered By: Jt Bird on 12-10-2023 19.1 SECONDS 11.7-14.9 [facility] 1.6 [facility] Ovalocyte detectionOrdered B y: Jt Membreno on 12-10-2023 Ovalocytes LM Ql (Bld) RARE [facility] RBC Auto (Bld) [#/Vol]Ordere d By: Jt Membreno on 12-10-2023 RBC (Bld) [#/Vol] 3.43 10*6/uL 4.6-6.2 [facility] RBC morphologyOrdered By: Luzmaria Membreno on 12-10-2023 RBC morphology finding Nom (Bld) N CHROM NORMAL NORM C&C [facility] Serum or plasma calcium wilner urement (mass/volume)Ordered By: Jt Membreno on 12-10-2023 Calcium [Mass/Vol] 9.1 mg/dL 8.5-10.1 [facility] Serum or plasma creatinine m easurement (mass/volume)Ordered By: Jt Membreno on 12-10-2023 Creatinine [Mass/Vol] 0.84 mg/dL 0.70-1.30 [facility] Serum or plasma urea nitroge n measurement (mass/volume)Ordered By: Jt Membreno on 12-10-2023 Urea nitrogen [Mass/Vol] 25 mg/dL 7-18 [facility] Thin prep Papanicolaou smear with manual screeningOrdered By: Jt Membreno on 12-10-2023 Thin prep Papanicolaou smear with manual screening 3.3 g/dL 3.2-5.0 [facility] Thin prep Papanicolaou smear with manual screening 36 U/L 15-37 [facility] Thin prep Papanicolaou smear with manual screening 6 5-15 [facility] No Panel InformationOrdered By: Aneudy Mir on 12-03-2023 14.9 SECONDS 11.7-14.9 [facility] 1.2 [facility] No Panel InformationOrdered By: Andre Quesada on 11-18-2023 18.5 SECONDS 11.7-14.9 [facility] 1.5 [facility] SEE SCANNED REPORT [facility] Flexible sigmoidoscopy study on 11-17-2023 [facility] Absolute lymphocyte countOrd ered By: Yun Sarmiento on 11-11-2023 Lymphocytes Auto (Unsp spec) [#/Vol] 0.31 10*3/uL 0.83-4.51 [facility] Automated lymphocyte count a s percentage of total leukocytesOrdered By: Yun Sarmiento on 11-11-2023 Lymphocytes/100 WBC Auto (Unsp spec) 3.9 % 19-41 [facility] Basophil percentageOrdered B y: Yun Sarmiento on 11-11-2023 Basophil percentage 1.8 mmol/L 0.4-2.0 [facility] Basophil percentage 0 SEEN /hpf 0-5 [facility] Basophil percentage 11.6 g/dL 13.0-16.5 [facility] Basophil percentage 131 mg/dL 74-106 [facility] Basophil percentage 6.2 g/dL 6.4-8.2 [facility] Basophil percentage 0.60 mg/dL 0.20-1.00 [facility] Basophil percentage 142 mmol/L 136-145 [facility] Basophil percentage 3.9 mmol/L 3.5-5.1 [facility] Basophil percentage 110 mmol/L 98-107 [facility] Basophils (Bld) [#/Vol] 7.9 10*3/uL 4.4-11.0 [facility] Basophils (Bld) [#/Vol] 6.8 10*3/uL 2.0-7.7 [facility] Basophils/100 WBC (Bld) 87.2 % 47-70 [facility] Basophils/100 WBC (Bld) 7.9 % 0-10 [facility] Basophils/100 WBC (Bld) 0.0 % 0-5 [facility] Basophils/100 WBC (Bld) 0.1 % 0-1 [facility] Bilirubin Test strip Ql (U)O rdered By: Yun Sarmiento on 11-11-2023 Bilirubin Ql (U) Negative Negative [facility] Blood manual differential co mment interpretation (narrative result)Ordered By: Yun Sarmiento on 11-11-2023 Manual differential comment Aime (Bld) [Interp] SCANNED [facility] Determination of erythrocyte mean corpuscular volume (MCV)Ordered By: Yun Sarmiento on 11-11-2023 MCV (RBC) [Entitic vol] 106.5 fL 80-94 [facility] Erythrocyte distribution wid th ratioOrdered By: Yun Sarmiento on 11-11-2023 Erythrocyte distribution width (RBC) [Ratio] 17.9 % 11.6-14.6 [facility] Erythrocyte distribution wid th standard deviationOrdered By: Yun Sarmiento on 11-11-2023 Erythrocyte distribution width (RBC) [Entitic vol] 70.9 fL 35.1-43.9 [facility] Hematocrit Auto (Bld) [Volum e fraction]Ordered By: Yun Sarmiento on 11-11-2023 Hematocrit (Bld) [Volume fraction] 34.5 % 40-54 [facility] Immature granulocytes/100 WB C Auto (Bld)Ordered By: Yun Sarmiento on 11-11-2023 Immature granulocytes/100 WBC (Bld) 0.900 % 0.0-0.9 [facility] Ketones Test strip Ql (U)Ord ered By: Yun Sarmiento on 11-11-2023 Ketones Ql (U) Negative Negative [facility] Mucus LM Ql (Urine sed)Order ed By: Yun Sarmiento on 11-11-2023 Mucus Ql (Urine sed) 0 SEEN /hpf [facility] Nitrite Test strip Ql (U)Ord ered By: Yun Sarmiento on 11-11-2023 Nitrite Ql (U) Negative Negative [facility] No Panel InformationOrdered By: Yun Sarmiento on 11-11-2023 50-100 SEEN /hpf 0-5 [facility] 35.8 pg 27.0-32.0 [facility] 33.6 g/dL 32-36 [facility] 151 K/mm3 150-450 [facility] 9.4 fl 6.2-12.0 [facility] 0 % 0-5 [facility] 1+ [facility] 19.4 SECONDS 11.7-14.9 [facility] 1.6 [facility] 61 mL/min >60 [facility] 74 mL/min >60 [facility] 83.18 ml/min [facility] 19.0 RATIO 10-20 [facility] 3.1 g/dL 2.2-4.2 [facility] 1.0 RATIO 0.9-2.4 [facility] 94 U/L 45-117 [facility] 29 U/L 16-61 [facility] 23.0 mmol/L 21.0-32.0 [facility] Protein Test strip Ql (U)Ord ered By: Yun Sarmiento on 11-11-2023 Protein Ql (U) 30 mg/dl Negative [facility] RBC Auto (Bld) [#/Vol]Ordere d By: Yun Sarmiento on 11-11-2023 RBC (Bld) [#/Vol] 3.24 10*6/uL 4.6-6.2 [facility] Serum or plasma calcium wilner urement (mass/volume)Ordered By: Yun Sarmiento on 11-11-2023 Calcium [Mass/Vol] 8.8 mg/dL 8.5-10.1 [facility] Serum or plasma creatinine m easurement (mass/volume)Ordered By: Yun Sarmiento on 11-11-2023 Creatinine [Mass/Vol] 1.26 mg/dL 0.70-1.30 [facility] Serum or plasma urea nitroge n measurement (mass/volume)Ordered By: Yun Sarmiento on 11-11-2023 Urea nitrogen [Mass/Vol] 24 mg/dL 7-18 [facility] Squamous epithelial cells de tection in urine sediment by light microscopyOrdered By: Yun Sarmiento on 11-11-2023 Epithelial cells.squamous LM Ql (Urine sed) 0-5 SEEN /hpf 0-5 [facility] Thin prep Papanicolaou smear with manual screeningOrdered By: Yun Sarmiento on 11-11-2023 Thin prep Papanicolaou smear with manual screening 3.1 g/dL 3.2-5.0 [facility] Thin prep Papanicolaou smear with manual screening 14 U/L 15-37 [facility] Thin prep Papanicolaou smear with manual screening 9 5-15 [facility] Urine blood detectionOrdered By: Yun Sarmiento on 11-11-2023 RBC Ql (U) 250 /ul Negative [facility] Urine clarityOrdered By: Tati Sarmiento on 11-11-2023 Clarity (U) Sl. Cloudy Clear [facility] Urine color determinationOrd ered By: Yun Sarmiento on 11-11-2023 Color (U) Yellow Yellow [facility] Urine glucose detectionOrder ed By: Yun Sarmiento on 11-11-2023 Glucose Ql (U) 50 mg/dl Normal [facility] Urine leukocyte esterase det ection by dipstickOrdered By: Yun Sarmiento on 11-11-2023 Leukocyte esterase Test strip Ql (U) 25 /ul Negative [facility] Urine pHOrdered By: Yun conrad on 11-11-2023 pH (U) 7.0 [pH] 5.0 - 8.0 [facility] Urine sediment bacteria coun t by microscopy (number/high power field)Ordered By: Yun Sarmiento on 11-11-2023 Bacteria LM.HPF (Urine sed) [#/Area] 0 /[HPF] None Seen [facility] Urine specific gravity measu rementOrdered By: Yun Sarmiento on 11-11-2023 Specific gravity (U) [Rel density] 1.015 1.002-1.030 [facility] Urine urobilinogen measureme ntOrdered By: Yun Sarmiento on 11-11-2023 Urobilinogen Ql (U) 1 mg/dl Normal [facility] No Panel InformationOrdered By: Jt Bird on 11-10-2023 21.5 SECONDS 11.7-14.9 [facility] 1.9 [facility] Absolute lymphocyte countOrd ered By: Andre Dipak on 11-02-2023 Lymphocytes Auto (Unsp spec) [#/Vol] 0.36 10*3/uL 0.83-4.51 [facility] Automated lymphocyte count a s percentage of total leukocytesOrdered By: Andre Quesada on 11-02-2023 Lymphocytes/100 WBC Auto (Unsp spec) 6.6 % 19-41 [facility] Basophil percentageOrdered B y: Andre Quesada on 11-02-2023 Basophil percentage 12.0 g/dL 13.0-16.5 [facility] Basophil percentage 115 mg/dL 74-106 [facility] Basophil percentage 6.0 g/dL 6.4-8.2 [facility] Basophil percentage 3.7 mg/dL 2.5-4.9 [facility] Basophil percentage 1.00 mg/dL 0.20-1.00 [facility] Basophil percentage 142 mmol/L 136-145 [facility] Basophil percentage 3.5 mmol/L 3.5-5.1 [facility] Basophil percentage 109 mmol/L 98-107 [facility] Basophil percentage 336 U/L 87-241 [facility] Basophils (Bld) [#/Vol] 5.5 10*3/uL 4.4-11.0 [facility] Basophils (Bld) [#/Vol] 4.1 10*3/uL 2.0-7.7 [facility] Basophils/100 WBC (Bld) 75.6 % 47-70 [facility] Basophils/100 WBC (Bld) 16.5 % 0-10 [facility] Basophils/100 WBC (Bld) 0.4 % 0-5 [facility] Basophils/100 WBC (Bld) 0.2 % 0-1 [facility] Blood platelet adequacy dete ction by light microscopyOrdered By: Andre Quesada on 11-02-2023 Platelets LM Ql (Bld) ADEQUATE ADEQ [facility] Blood polychromasia detectio n by light microscopyOrdered By: Andre Quesada on 11-02-2023 Polychromasia LM Ql (Bld) 1+ [facility] Determination of erythrocyte mean corpuscular volume (MCV)Ordered By: nAdre Quesada on 11-02-2023 MCV (RBC) [Entitic vol] 107.9 fL 80-94 [facility] Erythrocyte distribution wid th ratioOrdered By: Andre Quesada on 11-02-2023 Erythrocyte distribution width (RBC) [Ratio] 20.5 % 11.6-14.6 [facility] Erythrocyte distribution wid th standard deviationOrdered By: Andre Quesada on 11-02-2023 Erythrocyte distribution width (RBC) [Entitic vol] 81.0 fL 35.1-43.9 [facility] Hematocrit Auto (Bld) [Volum e fraction]Ordered By: Andre Quesada on 11-02-2023 Hematocrit (Bld) [Volume fraction] 35.4 % 40-54 [facility] Immature granulocytes/100 WB C Auto (Bld)Ordered By: Andre Quesada on 11-02-2023 Immature granulocytes/100 WBC (Bld) 0.700 % 0.0-0.9 [facility] Laboratory - Chemistry and C hemistry - challengeOrdered By: Andre Quesada on 11-02-2023 Magnesium [Mass/Vol] 2.7 mg/dL High 1.6-2.6 [facility] Laboratory - Hematology and Cell countsOrdered By: Andre Quesada on 11-02-2023 Anisocytosis Ql (Bld) 2+ [facility] Macrocytes Ql (Bld)Ordered B y: Andre Quesada on 11-02-2023 Macrocytosis 2+ [facility] Macrocytes detectionOrdered By: Andre Quesada on 11-02-2023 Macrocytes Ql (Bld) 2+ [facility] No Panel InformationOrdered By: Andre Quesada on 11-02-2023 36.6 pg 27.0-32.0 [facility] 33.9 g/dL 32-36 [facility] 177 K/mm3 150-450 [facility] 9.1 fl 6.2-12.0 [facility] 0.4 % 0-5 [facility] 2+ [facility] 65 mL/min >60 [facility] 78 mL/min >60 [facility] 86.85 ml/min [facility] 28.3 RATIO 10-20 [facility] 2.8 g/dL 2.2-4.2 [facility] 1.1 RATIO 0.9-2.4 [facility] 97 U/L 45-117 [facility] 27 U/L 16-61 [facility] 2.7 mg/dL 1.6-2.6 [facility] 26.0 mmol/L 21.0-32.0 [facility] No Panel InformationOrdered By: Jt Bird on 11-02-2023 42.2 SECONDS 11.7-14.9 [facility] 4.3 [facility] Platelets LM Ql (Bld)Ordered By: Andre Quesada on 11-02-2023 Platelet Estimate ADEQUATE ADEQ [facility] Polychromasia LM Ql (Bld)Ord ered By: Andre Quesada on 11-02-2023 Polychromasia 1+ [facility] RBC Auto (Bld) [#/Vol]Ordere d By: Andre Quesada on 11-02-2023 RBC (Bld) [#/Vol] 3.28 10*6/uL 4.6-6.2 [facility] Serum or plasma calcium wilner urement (mass/volume)Ordered By: Andre Quesada on 11-02-2023 Calcium [Mass/Vol] 8.8 mg/dL 8.5-10.1 [facility] Serum or plasma carcinoembry onic antigen measurement (mass/volume)Ordered By: nAdre Quesada on 11-02-2023 Carcinoembryonic Ag [Mass/Vol] 4.0 ng/mL 0.0-4.7 [facility] Serum or plasma creatinine m easurement (mass/volume)Ordered By: Andre Quesada on 11-02-2023 Creatinine [Mass/Vol] 1.20 mg/dL 0.70-1.30 [facility] Serum or plasma urea nitroge n measurement (mass/volume)Ordered By: Andre Quesada on 11-02-2023 Urea nitrogen [Mass/Vol] 34 mg/dL 7-18 [facility] Thin prep Papanicolaou smear with manual screeningOrdered By: Andre Quesada on 11-02-2023 Thin prep Papanicolaou smear with manual screening 3.2 g/dL 3.2-5.0 [facility] Thin prep Papanicolaou smear with manual screening 17 U/L 15-37 [facility] Thin prep Papanicolaou smear with manual screening 7 5-15 [facility] Trichomonas screening testOr dered By: Andre Quesada on 11-02-2023 Phosphorus Level 3.7 mg/dL 2.5-4.9 [facility] Basophil percentageOrdered B y: Brittni Everett on 10-27-2023 Basophil percentage 0-5 SEEN /hpf 0-5 [facility] Bilirubin Test strip Ql (U)O rdered By: Brittni Everett on 10-27-2023 Bilirubin Ql (U) Negative Negative [facility] Blood manual differential co mment interpretation (narrative result)Ordered By: Brittni Everett on 10-27-2023 Manual differential comment Aime (Bld) [Interp] SEE COMMENT [facility] Calcium oxalate crystals LM Ql (Urine sed)Ordered By: Brittni Everett on 10-27-2023 Urine Calcium Oxalate Crystals RARE /hpf [facility] Calcium oxalate crystals det ection in urine sediment by light microscopyOrdered By: Brittni Everett on 10-27-2023 Calcium oxalate crystals LM Ql (Urine sed) RARE /hpf [facility] Epithelial cells.squamous LM Ql (Urine sed)Ordered By: Brittni Everett on 10-27-2023 Epithelial cells.squamous LM.HPF (Urine sed) [#/Area] 0 /[HPF] 0-5 [facility] Glucose Ql (U)Ordered By: German Everett on 10-27-2023 Glucose (U) [Mass/Vol] 250 mg/dL High Normal [facility] Ketones Test strip Ql (U)Ord ered By: Brittni Everett on 10-27-2023 Ketones Ql (U) 5 mg/dl High Negative [facility] Manual differential comment Aime (Bld) [Interp]Ordered By: Brittni Everett on 10-27-2023 Differential Comment SEE COMMENT [facility] Comment on above: LYMPHOPENIA NOTED Mucus LM Ql (Urine sed)Order ed By: Brittni Everett on 10-27-2023 Mucus Ql (Urine sed) RARE /hpf [facility] Nitrite Test strip Ql (U)Ord ered By: Brittni Everett on 10-27-2023 Nitrite Ql (U) Negative Negative [facility] No Panel InformationOrdered By: Brittni Everett on 10-27-2023 Urine RBC 0-5 SEEN /hpf 0-5 [facility] 0-5 SEEN /hpf 0-5 [facility] Protein Test strip Ql (U)Ord ered By: Brittni Everett on 10-27-2023 Protein Ql (U) 15 mg/dl High Negative [facility] RBC Ql (U)Ordered By: Brittni smith on 10-27-2023 Urine Occult Blood 10 /ul High Negative [facility] RBC morphologyOrdered By: German Everett on 10-27-2023 RBC morphology finding Nom (Bld) N CHROM NORMAL NORM C&C [facility] RBC morphology finding Nom ( Bld)Ordered By: Brittni Everett on 10-27-2023 Red Blood Cell Morphology N CHROM NORMAL NORM C&C [facility] Squamous epithelial cells de tection in urine sediment by light microscopyOrdered By: Brittni Everett on 10-27-2023 Epithelial cells.squamous LM Ql (Urine sed) 0 SEEN /hpf 0-5 [facility] Trichomonas screening testOr dered By: Brittni Everett on 10-27-2023 Urine WBC 0-5 SEEN /hpf 0-5 [facility] Urine blood detectionOrdered By: Brittni Everett on 10-27-2023 RBC Ql (U) 10 /ul Negative [facility] Urine clarityOrdered By: Komal Everett on 10-27-2023 Clarity (U) Clear Clear [facility] Urine color determinationOrd ered By: Brittni Everett on 10-27-2023 Color (U) Yellow Yellow [facility] Urine glucose detectionOrder ed By: Brittni Everett on 10-27-2023 Glucose Ql (U) 250 mg/dl Normal [facility] Urine leukocyte esterase det ection by dipstickOrdered By: Brittni Everett on 10-27-2023 Leukocyte esterase Test strip Ql (U) Negative Negative [facility] Urine pHOrdered By: Brittni herring on 10-27-2023 pH (U) 6.0 [pH] 5.0 - 8.0 [facility] Urine sediment bacteria coun t by microscopy (number/high power field)Ordered By: Brittni Everett on 10-27-2023 Bacteria LM.HPF (Urine sed) [#/Area] 0 /[HPF] None Seen [facility] Urine specific gravity measu rementOrdered By: Brittni Everett on 10-27-2023 Specific gravity (U) [Rel density] 1.025 1.002-1.030 [facility] Urine urobilinogen measureme ntOrdered By: Brittni Everett on 10-27-2023 Urobilinogen Ql (U) 1 mg/dl Normal [facility] Urobilinogen Ql (U)Ordered B y: Brittni Everett on 10-27-2023 Urobilinogen (U) [Mass/Vol] 1 mg/dL High Normal [facility] Absolute lymphocyte countOrd ered By: Glenn Coreas on 10-25-2023 Lymphocytes Auto (Unsp spec) [#/Vol] 0.25 10*3/uL 0.83-4.51 [facility] Automated lymphocyte count a s percentage of total leukocytesOrdered By: Glenn Coreas on 10-25-2023 Lymphocytes/100 WBC Auto (Unsp spec) 6.1 % 19-41 [facility] Basophil percentageOrdered B y: Glenn Coreas on 10-25-2023 Basophil percentage 0 SEEN /hpf 0-5 [facility] Basophil percentage 10.2 g/dL 13.0-16.5 [facility] Basophil percentage 165 mg/dL 74-106 [facility] Basophil percentage 146 mmol/L 136-145 [facility] Basophil percentage 3.4 mmol/L 3.5-5.1 [facility] Basophil percentage 114 mmol/L 98-107 [facility] Basophils (Bld) [#/Vol] 4.1 10*3/uL 4.4-11.0 [facility] Basophils (Bld) [#/Vol] 3.4 10*3/uL 2.0-7.7 [facility] Basophils/100 WBC (Bld) 82.9 % 47-70 [facility] Basophils/100 WBC (Bld) 9.1 % 0-10 [facility] Basophils/100 WBC (Bld) 0.5 % 0-5 [facility] Basophils/100 WBC (Bld) 0.7 % 0-1 [facility] Bilirubin Test strip Ql (U)O rdered By: Glenn Coreas on 10-25-2023 Bilirubin Ql (U) Negative Negative [facility] Blood manual differential co mment interpretation (narrative result)Ordered By: Glenn Coreas on 10-25-2023 Manual differential comment Aime (Bld) [Interp] SCANNED [facility] Determination of erythrocyte mean corpuscular volume (MCV)Ordered By: Glenn Coreas on 10-25-2023 MCV (RBC) [Entitic vol] 104.6 fL 80-94 [facility] Erythrocyte distribution wid th ratioOrdered By: Glenn Coreas on 10-25-2023 Erythrocyte distribution width (RBC) [Ratio] 18.2 % 11.6-14.6 [facility] Erythrocyte distribution wid th standard deviationOrdered By: Glenn Coreas on 10-25-2023 Erythrocyte distribution width (RBC) [Entitic vol] 66.4 fL 35.1-43.9 [facility] Hematocrit Auto (Bld) [Volum e fraction]Ordered By: Glenn Coreas on 10-25-2023 Hematocrit (Bld) [Volume fraction] 29.8 % 40-54 [facility] Hypochromatic red blood cell detectionOrdered By: Glenn Coreas on 10-25-2023 Hypochromia Ql (Bld) 1+ [facility] Immature granulocytes/100 WB C Auto (Bld)Ordered By: Glenn Coreas on 10-25-2023 Immature granulocytes/100 WBC (Bld) 0.700 % 0.0-0.9 [facility] Ketones Test strip Ql (U)Ord ered By: Glenn Coreas on 10-25-2023 Ketones Ql (U) Negative Negative [facility] Macrocytes detectionOrdered By: Glenn Coreas on 10-25-2023 Macrocytes Ql (Bld) 1+ [facility] Mucus LM Ql (Urine sed)Order ed By: Glenn Coreas on 10-25-2023 Mucus Ql (Urine sed) 0 SEEN /hpf [facility] Nitrite Test strip Ql (U)Ord ered By: Glenn Coreas on 10-25-2023 Nitrite Ql (U) Negative Negative [facility] No Panel InformationOrdered By: Glenn Coreas on 10-25-2023 0 SEEN /hpf 0-5 [facility] 35.8 pg 27.0-32.0 [facility] 34.2 g/dL 32-36 [facility] 152 K/mm3 150-450 [facility] 9.0 fl 6.2-12.0 [facility] 0 % 0-5 [facility] 2+ [facility] 36.1 SECONDS 11.7-14.9 [facility] 3.6 [facility] 77 mL/min >60 [facility] 93 mL/min >60 [facility] 101.49 ml/min [facility] 22.3 RATIO 10-20 [facility] 23.0 mmol/L 21.0-32.0 [facility] Protein Test strip Ql (U)Ord ered By: Glenn Coreas on 10-25-2023 Protein Ql (U) 15 mg/dl Negative [facility] RBC Auto (Bld) [#/Vol]Ordere d By: Glenn Coreas on 10-25-2023 RBC (Bld) [#/Vol] 2.85 10*6/uL 4.6-6.2 [facility] Serum or plasma calcium wilner urement (mass/volume)Ordered By: Glenn Coreas on 10-25-2023 Calcium [Mass/Vol] 8.2 mg/dL 8.5-10.1 [facility] Serum or plasma creatinine m easurement (mass/volume)Ordered By: Glenn Coreas on 10-25-2023 Creatinine [Mass/Vol] 1.03 mg/dL 0.70-1.30 [facility] Serum or plasma urea nitroge n measurement (mass/volume)Ordered By: Glenn Coreas on 10-25-2023 Urea nitrogen [Mass/Vol] 23 mg/dL 7-18 [facility] Squamous epithelial cells de tection in urine sediment by light microscopyOrdered By: Glenn Coreas on 10-25-2023 Epithelial cells.squamous LM Ql (Urine sed) 0-5 SEEN /hpf 0-5 [facility] Thin prep Papanicolaou smear with manual screeningOrdered By: Glenn Coreas on 10-25-2023 Thin prep Papanicolaou smear with manual screening 1+ [facility] Thin prep Papanicolaou smear with manual screening 9 5-15 [facility] Urine blood detectionOrdered By: Glenn Coreas on 10-25-2023 RBC Ql (U) 10 /ul Negative [facility] Urine clarityOrdered By: Aaron Coreas on 10-25-2023 Clarity (U) Clear Clear [facility] Urine color determinationOrd ered By: Glenn Coreas on 10-25-2023 Color (U) Yellow Yellow [facility] Urine glucose detectionOrder ed By: Glenn Coreas on 10-25-2023 Glucose Ql (U) 250 mg/dl Normal [facility] Urine leukocyte esterase det ection by dipstickOrdered By: Glenn Coreas on 10-25-2023 Leukocyte esterase Test strip Ql (U) Negative Negative [facility] Urine pHOrdered By: Glenn Cuba ghraphael on 10-25-2023 pH (U) 6.5 [pH] 5.0 - 8.0 [facility] Urine sediment bacteria coun t by microscopy (number/high power field)Ordered By: Glenn Coreas on 10-25-2023 Bacteria LM.HPF (Urine sed) [#/Area] 0 /[HPF] None Seen [facility] Urine specific gravity measu rementOrdered By: Glenn Coreas on 10-25-2023 Specific gravity (U) [Rel density] 1.015 1.002-1.030 [facility] Urine urobilinogen measureme ntOrdered By: Glenn Coreas on 10-25-2023 Urobilinogen Ql (U) Normal mg/dl Normal [facility] Absolute lymphocyte countOrd ered By: Andre Quesada on 10-12-2023 Lymphocytes Auto (Unsp spec) [#/Vol] 0.43 10*3/uL 0.83-4.51 [facility] Automated lymphocyte count a s percentage of total leukocytesOrdered By: Andre Quesada on 10-12-2023 Lymphocytes/100 WBC Auto (Unsp spec) 12.9 % 19-41 [facility] Basophil percentageOrdered B y: Andre Quesada on 10-12-2023 Basophil percentage 11.4 g/dL 13.0-16.5 [facility] Basophil percentage 131 mg/dL 74-106 [facility] Basophil percentage 6.3 g/dL 6.4-8.2 [facility] Basophil percentage 2.5 mg/dL 2.5-4.9 [facility] Basophil percentage 0.60 mg/dL 0.20-1.00 [facility] Basophil percentage 141 mmol/L 136-145 [facility] Basophil percentage 3.6 mmol/L 3.5-5.1 [facility] Basophil percentage 111 mmol/L 98-107 [facility] Basophils (Bld) [#/Vol] 3.3 10*3/uL 4.4-11.0 [facility] Basophils (Bld) [#/Vol] 2.2 10*3/uL 2.0-7.7 [facility] Basophils/100 WBC (Bld) 67.0 % 47-70 [facility] Basophils/100 WBC (Bld) 18.0 % 0-10 [facility] Basophils/100 WBC (Bld) 0.9 % 0-5 [facility] Basophils/100 WBC (Bld) 0.6 % 0-1 [facility] Determination of erythrocyte mean corpuscular volume (MCV)Ordered By: Andre Quesada on 10-12-2023 MCV (RBC) [Entitic vol] 106.1 fL 80-94 [facility] Erythrocyte distribution wid th ratioOrdered By: Andre Quesada on 10-12-2023 Erythrocyte distribution width (RBC) [Ratio] 18.9 % 11.6-14.6 [facility] Erythrocyte distribution wid th standard deviationOrdered By: Andre Quesada on 10-12-2023 Erythrocyte distribution width (RBC) [Entitic vol] 71.1 fL 35.1-43.9 [facility] Hematocrit Auto (Bld) [Volum e fraction]Ordered By: Andre Quesada on 10-12-2023 Hematocrit (Bld) [Volume fraction] 33.2 % 40-54 [facility] Immature granulocytes/100 WB C Auto (Bld)Ordered By: Andre Quesada on 10-12-2023 Immature granulocytes/100 WBC (Bld) 0.600 % 0.0-0.9 [facility] No Panel InformationOrdered By: Andre Quesada on 10-12-2023 36.4 pg 27.0-32.0 [facility] 34.3 g/dL 32-36 [facility] 173 K/mm3 150-450 [facility] 0 % 0-5 [facility] 1+ [facility] 62 mL/min >60 [facility] 75 mL/min >60 [facility] 83.85 ml/min [facility] 17.7 RATIO 10-20 [facility] 3.1 g/dL 2.2-4.2 [facility] 1.0 RATIO 0.9-2.4 [facility] 89 U/L 45-117 [facility] 26 U/L 16-61 [facility] 2.2 mg/dL 1.6-2.6 [facility] 26.0 mmol/L 21.0-32.0 [facility] No Panel InformationOrdered By: Jt Bird on 10-12-2023 33.2 SECONDS 11.7-14.9 [facility] Platelet mean volume Jarred-Ec ker (Bld) [Entitic vol]Ordered By: Andre Quesada on 10-12-2023 Platelet mean volume (Bld) [Entitic vol] 8.5 fL 6.2-12.0 [facility] Platelet poor plasma interna tional normalized ratio (INR)Ordered By: Jt Bird on 10-12-2023 INR Coag (PPP) [Relative time] 3.2 {INR} [facility] RBC Auto (Bld) [#/Vol]Ordere d By: Andre Quesada on 10-12-2023 RBC (Bld) [#/Vol] 3.13 10*6/uL 4.6-6.2 [facility] Serum or plasma calcium wilner urement (mass/volume)Ordered By: Andre Quesada on 10-12-2023 Calcium [Mass/Vol] 9.0 mg/dL 8.5-10.1 [facility] Serum or plasma creatinine m easurement (mass/volume)Ordered By: Andre Quesada on 10-12-2023 Creatinine [Mass/Vol] 1.24 mg/dL 0.70-1.30 [facility] Serum or plasma urea nitroge n measurement (mass/volume)Ordered By: Andre Quesada on 10-12-2023 Urea nitrogen [Mass/Vol] 22 mg/dL 7-18 [facility] Thin prep Papanicolaou smear with manual screeningOrdered By: Andre Quesada on 10-12-2023 Thin prep Papanicolaou smear with manual screening 3.2 g/dL 3.2-5.0 [facility] Thin prep Papanicolaou smear with manual screening 21 U/L 15-37 [facility] Thin prep Papanicolaou smear with manual screening 4 5-15 [facility] Absolute lymphocyte countOrd ered By: Brittni Everett on 10-05-2023 Lymphocytes Auto (Unsp spec) [#/Vol] 0.42 10*3/uL 0.83-4.51 [facility] Automated lymphocyte count a s percentage of total leukocytesOrdered By: Brittni Everett on 10-05-2023 Lymphocytes/100 WBC Auto (Unsp spec) 8.8 % 19-41 [facility] Basophil percentageOrdered B y: Brittni Everett on 10-05-2023 Basophil percentage 12.0 g/dL 13.0-16.5 [facility] Basophil percentage 111 mg/dL 74-106 [facility] Basophil percentage 6.5 g/dL 6.4-8.2 [facility] Basophil percentage 2.5 mg/dL 2.5-4.9 [facility] Basophil percentage 0.60 mg/dL 0.20-1.00 [facility] Basophil percentage 142 mmol/L 136-145 [facility] Basophil percentage 3.9 mmol/L 3.5-5.1 [facility] Basophil percentage 108 mmol/L 98-107 [facility] Basophils (Bld) [#/Vol] 4.8 10*3/uL 4.4-11.0 [facility] Basophils (Bld) [#/Vol] 3.6 10*3/uL 2.0-7.7 [facility] Basophils/100 WBC (Bld) 74.6 % 47-70 [facility] Basophils/100 WBC (Bld) 14.6 % 0-10 [facility] Basophils/100 WBC (Bld) 0.4 % 0-5 [facility] Basophils/100 WBC (Bld) 0.8 % 0-1 [facility] Basophil percentageOrdered B y: Andre Quesada on 10-05-2023 Basophil percentage 524 U/L 87-241 [facility] Determination of erythrocyte mean corpuscular volume (MCV)Ordered By: Brittni Everett on 10-05-2023 MCV (RBC) [Entitic vol] 103.6 fL 80-94 [facility] Erythrocyte distribution wid th ratioOrdered By: Brittni Everett on 10-05-2023 Erythrocyte distribution width (RBC) [Ratio] 17.2 % 11.6-14.6 [facility] Erythrocyte distribution wid th standard deviationOrdered By: Brittni Everett on 10-05-2023 Erythrocyte distribution width (RBC) [Entitic vol] 61.2 fL 35.1-43.9 [facility] Hematocrit Auto (Bld) [Volum e fraction]Ordered By: Brittni Everett on 10-05-2023 Hematocrit (Bld) [Volume fraction] 34.7 % 40-54 [facility] Immature granulocytes/100 WB C Auto (Bld)Ordered By: Brittni Everett on 10-05-2023 Immature granulocytes/100 WBC (Bld) 0.800 % 0.0-0.9 [facility] No Panel InformationOrdered By: Brittni Everett on 10-05-2023 35.8 pg 27.0-32.0 [facility] 34.6 g/dL 32-36 [facility] 220 K/mm3 150-450 [facility] 0.4 % 0-5 [facility] 1+ [facility] 26.3 SECONDS 11.7-14.9 [facility] 84 mL/min >60 [facility] 102 mL/min >60 [facility] 109.45 ml/min [facility] 24.2 RATIO 10-20 [facility] 3.2 g/dL 2.2-4.2 [facility] 1.0 RATIO 0.9-2.4 [facility] 93 U/L 45-117 [facility] 33 U/L 16-61 [facility] 2.2 mg/dL 1.6-2.6 [facility] 23.0 mmol/L 21.0-32.0 [facility] Platelet mean volume Jarred-Ec ker (Bld) [Entitic vol]Ordered By: Brittni Everett on 10-05-2023 Platelet mean volume (Bld) [Entitic vol] 9.0 fL 6.2-12.0 [facility] Platelet poor plasma interna tional normalized ratio (INR)Ordered By: Brittni Everett on 10-05-2023 INR Coag (PPP) [Relative time] 2.4 {INR} [facility] RBC Auto (Bld) [#/Vol]Ordere d By: Brittni Everett on 10-05-2023 RBC (Bld) [#/Vol] 3.35 10*6/uL 4.6-6.2 [facility] [place] or plasma calcium wilner urement (mass/volume)Ordered By: Brittni Everett on 10-05-2023 Calcium [Mass/Vol] 8.7 mg/dL 8.5-10.1 [facility] or plasma creatinine m easurement (mass/volume)Ordered By: Brittni Everett on 10-05-2023 Creatinine [Mass/Vol] 0.95 mg/dL 0.70-1.30 [facility] Serum or plasma urea nitroge n measurement (mass/volume)Ordered By: Brittni Everett on 10-05-2023 Urea nitrogen [Mass/Vol] 23 mg/dL 7-18 [facility] Thin prep Papanicolaou smear with manual screeningOrdered By: Brittni Everett on 10-05-2023 Thin prep Papanicolaou smear with manual screening 3.3 g/dL 3.2-5.0 [facility] Thin prep Papanicolaou smear with manual screening 35 U/L 15-37 [facility] Thin prep Papanicolaou smear with manual screening 11 5-15 [facility] Pathologist review Aime (Unsp spec) [Interp]Ordered By: Andre Quesada on 09-21-2023 Differential Pathologist's Review Reviewed [facility] Comment on above: Previous reported re sult: Gloria corea Edited by: RGOOD on 09/21/23:1214LeukopeniaMacrocytic anemia.Clinical correlation necessary.Ricardo Lopez M.D. 09/21/23 AMENDED REPORT 09/21/23 1214 PATH REV previously reported as: Gloria corea Review by pathologistOrdered By: Andre Quesada on 09-21-2023 Pathologist review Aime (Unsp spec) [Interp] Reviewed [facility] Blood manual differential co mment interpretation (narrative result)Ordered By: Andre Quesada on 09-15-2023 Manual differential comment Aime (Bld) [Interp] COMMENT [facility] INR in Blood by Coagulation assayOrdered By: Jt Bird on 09-04-2023 INR Coag (Bld) [Relative time] 2.5 {INR} [facility] No Panel InformationOrdered By: Jt Bird on 09-04-2023 27.0 SECONDS 11.7-14.9 [facility] Absolute lymphocyte countOrd ered By: Andre Quesada on 08-31-2023 Lymphocytes Auto (Unsp spec) [#/Vol] 0.40 10*3/uL 0.83-4.51 [facility] Basophil percentageOrdered B y: Andre Quesada on 08-31-2023 Basophil percentage 126 mg/dL 74-106 [facility] Basophil percentage 6.4 g/dL 6.4-8.2 [facility] Basophil percentage 2.1 mg/dL 2.5-4.9 [facility] Basophil percentage 0.60 mg/dL 0.20-1.00 [facility] Basophil percentage 145 mmol/L 136-145 [facility] Basophil percentage 3.4 mmol/L 3.5-5.1 [facility] Basophil percentage 112 mmol/L 98-107 [facility] Basophils (Bld) [#/Vol] 4.1 10*3/uL 4.4-11.0 [facility] Basophils (Bld) [#/Vol] 2.9 10*3/uL 2.0-7.7 [facility] Basophils/100 WBC (Bld) 72.6 % 47-70 [facility] Basophils/100 WBC (Bld) 1.2 % 0-5 [facility] Basophils/100 WBC (Bld) 0.5 % 0-1 [facility] Blood erythrocytes count (nu mber/volume)Ordered By: Andre Quesada on 08-31-2023 RBC (Bld) [#/Vol] 3.47 10*6/uL 4.6-6.2 [facility] Blood hemoglobin measurement (mass/volume)Ordered By: Andre Quesada on 08-31-2023 Hemoglobin (Bld) [Mass/Vol] 11.8 g/dL 13.0-16.5 [facility] Blood lymphocytes/100 leukoc ytesOrdered By: Andre Quesada on 08-31-2023 Lymphocytes/100 WBC (Bld) 9.9 % 19-41 [facility] Blood manual differential co mment interpretation (narrative result)Ordered By: Andre Quesada on 08-31-2023 Manual differential comment Aime (Bld) [Interp] SCANNED [facility] Blood monocytes/100 leukocyt esOrdered By: Andre Quesada on 08-31-2023 Monocytes/100 WBC (Bld) 15.1 % 0-10 [facility] Blood platelet mean volumeOr dered By: Andre Quesada on 08-31-2023 Platelet mean volume (Bld) [Entitic vol] 8.9 fL 6.2-12.0 [facility] Determination of erythrocyte mean corpuscular volume (MCV)Ordered By: Andre Quesada on 08-31-2023 MCV (RBC) [Entitic vol] 101.4 fL 80-94 [facility] Hematocrit Auto (Bld) [Volum e fraction]Ordered By: Andre Quesada on 08-31-2023 Hematocrit (Bld) [Volume fraction] 35.2 % 40-54 [facility] INR in Blood by Coagulation assayOrdered By: Jt Bird on 08-31-2023 INR Coag (Bld) [Relative time] 4.5 {INR} [facility] MCHC Auto (RBC) [Mass/Vol]Or dered By: Andre Quesada on 08-31-2023 MCHC (RBC) [Mass/Vol] 33.5 g/dL 32-36 [facility] No Panel InformationOrdered By: Andre Quesada on 08-31-2023 34.0 pg 27.0-32.0 [facility] 17.2 % 11.6-14.6 [facility] 62.2 fl 35.1-43.9 [facility] 0.700 % 0.0-0.9 [facility] 0 % 0-5 [facility] 94 mL/min >60 [facility] 114 mL/min >60 [facility] 90.16 ml/min [facility] 24.2 RATIO 10-20 [facility] 3.3 g/dL 2.2-4.2 [facility] 76 U/L 45-117 [facility] 24 U/L 16-61 [facility] 2.3 mg/dL 1.6-2.6 [facility] 28.0 mmol/L 21.0-32.0 [facility] No Panel InformationOrdered By: Jt Bird on 08-31-2023 43.5 SECONDS 11.7-14.9 [facility] Platelets bldOrdered By: Jose Alfredo Quesada on 08-31-2023 Platelets (Bld) [#/Vol] 188 10*3/uL 150-450 [facility] Review by pathologistOrdered By: Andre Quesada on 08-31-2023 Pathologist review Aime (Unsp spec) [Interp] Reviewed [facility] Serum or plasma albumin wilner urement (mass/volume)Ordered By: Andre Quesada on 08-31-2023 Albumin [Mass/Vol] 3.1 g/dL 3.2-5.0 [facility] Serum or plasma albumin/glob ulin mass ratioOrdered By: Andre Quesada on 08-31-2023 Albumin/Globulin [Mass ratio] 0.9 {ratio} 0.9-2.4 [facility] Serum or plasma calcium wilner urement (mass/volume)Ordered By: Andre Quesada on 08-31-2023 Calcium [Mass/Vol] 8.5 mg/dL 8.5-10.1 [facility] Serum or plasma carcinoembry onic antigen measurement (mass/volume)Ordered By: Brittni Everett on 08-31-2023 Carcinoembryonic Ag [Mass/Vol] 2.1 ng/mL 0.0-4.7 [facility] Serum or plasma creatinine m easurement (mass/volume)Ordered By: Andre Quesada on 08-31-2023 Creatinine [Mass/Vol] 0.87 mg/dL 0.70-1.30 [facility] Serum or plasma urea nitroge n measurement (mass/volume)Ordered By: Andre Quesada on 08-31-2023 Urea nitrogen [Mass/Vol] 21 mg/dL 7-18 [facility] Thin prep Papanicolaou smear with manual screeningOrdered By: Andre Quesada on 08-31-2023 Thin prep Papanicolaou smear with manual screening 20 U/L 15-37 [facility] Thin prep Papanicolaou smear with manual screening 5 5-15 [facility] Basophil percentageOrdered B y: Andre Quesada on 08-24-2023 Basophil percentage 267 U/L 87-241 [facility] No Panel InformationOrdered By: Andre Quesada on 08-24-2023 MAILED SPECIMEN [facility] INR in Blood by Coagulation assayOrdered By: Jt Bird on 08-18-2023 INR Coag (Bld) [Relative time] 3.5 {INR} [facility] No Panel InformationOrdered By: Jt Bird on 08-18-2023 35.4 SECONDS 11.7-14.9 [facility] SIGMOIDOSCOPYon 08-04-2023 [facility] No Panel InformationOrdered By: Alon Boland on 08-03-2023 1.8 [facility] Whole blood prothrombin time Ordered By: lAon Boland on 08-03-2023 PT Coag (Bld) [Time] 19.9 s 11.7-14.9 [facility] No Panel Informationon 07-27 [facility] Absolute lymphocyte countOrd ered By: Ricki Freeman on 07-19-2023 Lymphocytes Auto (Unsp spec) [#/Vol] 0.10 10*3/uL 0.83-4.51 [facility] Basophil percentageOrdered B y: Ricki Freeman on 07-19-2023 Basophil percentage 0-5 SEEN /hpf 0-5 [facility] Basophil percentage 128 mg/dL 74-106 [facility] Basophil percentage 6.0 g/dL 6.4-8.2 [facility] Basophil percentage 0.60 mg/dL 0.20-1.00 [facility] Basophil percentage 140 mmol/L 136-145 [facility] Basophil percentage 3.4 mmol/L 3.5-5.1 [facility] Basophil percentage 107 mmol/L 98-107 [facility] Basophil percentage 2.1 mmol/L 0.4-2.0 [facility] Basophils (Bld) [#/Vol] 3.9 10*3/uL 4.4-11.0 [facility] Basophils (Bld) [#/Vol] 3.2 10*3/uL 2.0-7.7 [facility] Basophils/100 WBC (Bld) 81.7 % 47-70 [facility] Basophils/100 WBC (Bld) 2.6 % 0-5 [facility] Basophils/100 WBC (Bld) 0.5 % 0-1 [facility] Bilirubin Test strip Ql (U)O rdered By: Ricki Freeman on 07-19-2023 Bilirubin Ql (U) Negative Negative [facility] Blood erythrocytes count (nu mber/volume)Ordered By: Ricki Freeman on 07-19-2023 RBC (Bld) [#/Vol] 3.17 10*6/uL 4.6-6.2 [facility] Blood hemoglobin measurement (mass/volume)Ordered By: Ricki Freeman on 07-19-2023 Hemoglobin (Bld) [Mass/Vol] 11.0 g/dL 13.0-16.5 [facility] Blood lymphocytes/100 leukoc ytesOrdered By: Ricki Freeman on 07-19-2023 Lymphocytes/100 WBC (Bld) 2.6 % 19-41 [facility] Blood manual differential co mment interpretation (narrative result)Ordered By: Ricki Freeman on 07-19-2023 Manual differential comment Aime (Bld) [Interp] SCANNED [facility] Blood monocytes/100 leukocyt esOrdered By: Ricki Freeman on 07-19-2023 Monocytes/100 WBC (Bld) 12.1 % 0-10 [facility] Blood platelet mean volumeOr dered By: Ricki Freeman on 07-19-2023 Platelet mean volume (Bld) [Entitic vol] 9.4 fL 6.2-12.0 [facility] Determination of erythrocyte mean corpuscular volume (MCV)Ordered By: Ricki Freeman on 07-19-2023 MCV (RBC) [Entitic vol] 99.1 fL 80-94 [facility] Hematocrit Auto (Bld) [Volum e fraction]Ordered By: Ricki Freeman on 07-19-2023 Hematocrit (Bld) [Volume fraction] 31.4 % 40-54 [facility] INR in Blood by Coagulation assayOrdered By: Ricki Freeman on 07-19-2023 INR Coag (Bld) [Relative time] 2.1 {INR} [facility] Ketones Test strip Ql (U)Ord ered By: Ricki Freeman on 07-19-2023 Ketones Ql (U) 5 mg/dl Negative [facility] MCHC Auto (RBC) [Mass/Vol]Or dered By: Ricki Freeman on 07-19-2023 MCHC (RBC) [Mass/Vol] 35.0 g/dL 32-36 [facility] Mucus LM Ql (Urine sed)Order ed By: Ricki Freeman on 07-19-2023 Mucus Ql (Urine sed) 0 SEEN /hpf [facility] Nitrite Test strip Ql (U)Ord ered By: Ricki Freeman on 07-19-2023 Nitrite Ql (U) Negative Negative [facility] No Panel InformationOrdered By: Ricki Freeman on 07-19-2023 No growth in 5 days. [facility] 34.7 pg 27.0-32.0 [facility] 18.6 % 11.6-14.6 [facility] 64.8 fl 35.1-43.9 [facility] 0.500 % 0.0-0.9 [facility] 0 % 0-5 [facility] 23.8 SECONDS 11.7-14.9 [facility] 70 mL/min >60 [facility] 85 mL/min >60 [facility] 70.03 ml/min [facility] 15.2 RATIO 10-20 [facility] 2.9 g/dL 2.2-4.2 [facility] 25 U/L 13-75 [facility] 67 U/L 45-117 [facility] 36 U/L 16-61 [facility] 25.0 mmol/L 21.0-32.0 [facility] Platelets bldOrdered By: Moira Freeman on 07-19-2023 Platelets (Bld) [#/Vol] 163 10*3/uL 150-450 [facility] Protein Test strip Ql (U)Ord ered By: Ricki Freeman on 07-19-2023 Protein Ql (U) 15 mg/dl Negative [facility] Review by pathologistOrdered By: Ricki Freeman on 07-19-2023 Pathologist review Aime (Unsp spec) [Interp] May foll [facility] Pathologist review Aime (Unsp spec) [Interp] Reviewed [facility] SARS-CoV-2 (COVID-19) Ag IA. rapid Ql (Resp)Ordered By: Ricki Freeman on 07-19-2023 COVID-19 virus antigen assay SARS-CoV-2 (COVID 19) [facility] Serum or plasma albumin wilner urement (mass/volume)Ordered By: Ricki Freeman on 07-19-2023 Albumin [Mass/Vol] 3.1 g/dL 3.2-5.0 [facility] Serum or plasma albumin/glob ulin mass ratioOrdered By: Ricki Freeman on 07-19-2023 Albumin/Globulin [Mass ratio] 1.1 {ratio} 0.9-2.4 [facility] Serum or plasma calcium wilner urement (mass/volume)Ordered By: Ricki Freeman on 07-19-2023 Calcium [Mass/Vol] 8.7 mg/dL 8.5-10.1 [facility] Serum or plasma creatinine m easurement (mass/volume)Ordered By: Ricki Freeman on 07-19-2023 Creatinine [Mass/Vol] 1.12 mg/dL 0.70-1.30 [facility] Serum or plasma urea nitroge n measurement (mass/volume)Ordered By: Ricki Freeman on 07-19-2023 Urea nitrogen [Mass/Vol] 17 mg/dL 7-18 [facility] Squamous epithelial cells de tection in urine sediment by light microscopyOrdered By: Ricki Freeman on 07-19-2023 Epithelial cells.squamous LM Ql (Urine sed) 0-5 SEEN /hpf 0-5 [facility] Thin prep Papanicolaou smear with manual screeningOrdered By: Ricki Freeman on 07-19-2023 Thin prep Papanicolaou smear with manual screening 45 U/L 15-37 [facility] Thin prep Papanicolaou smear with manual screening 8 5-15 [facility] Urine blood detectionOrdered By: Ricki Freeman on 07-19-2023 RBC Ql (U) Negative Negative [facility] RBC Ql (U) 0 SEEN /hpf 0-5 [facility] Urine clarityOrdered By: Moira Freeman on 07-19-2023 Clarity (U) Clear Clear [facility] Urine color determinationOrd ered By: Ricki Freeman on 07-19-2023 Color (U) Yellow Yellow [facility] Urine glucose detectionOrder ed By: Ricki Freeman on 07-19-2023 Glucose Ql (U) Normal mg/dl Normal [facility] Urine leukocyte esterase det ection by dipstickOrdered By: Ricki Freeman on 07-19-2023 Leukocyte esterase Test strip Ql (U) 25 /ul Negative [facility] Urine pHOrdered By: Ricki lombardo on 07-19-2023 pH (U) 7.0 [pH] 5.0 - 8.0 [facility] Urine sediment bacteria coun t by microscopy (number/high power field)Ordered By: Ricki Freeman on 07-19-2023 Bacteria LM.HPF (Urine sed) [#/Area] 0 /[HPF] None Seen [facility] Urine specific gravity measu rementOrdered By: Ricki Freeman on 07-19-2023 Specific gravity (U) [Rel density] 1.015 1.002-1.030 [facility] Urobilinogen Auto test strip Ql (U)Ordered By: Ricki Freeman on 07-19-2023 Urobilinogen Ql (U) Normal mg/dl Normal [facility] Absolute lymphocyte countOrd ered By: Sidney Dominguez on 07-17-2023 Lymphocytes Auto (Unsp spec) [#/Vol] 0.27 10*3/uL 0.83-4.51 [facility] Basophil percentageOrdered B y: Sidney Dominguez on 07-17-2023 Basophil percentage 99 mg/dL 74-106 [facility] Basophil percentage 2.2 mg/dL 2.5-4.9 [facility] Basophil percentage 142 mmol/L 136-145 [facility] Basophil percentage 3.9 mmol/L 3.5-5.1 [facility] Basophil percentage 111 mmol/L 98-107 [facility] Basophils (Bld) [#/Vol] 4.1 10*3/uL 4.4-11.0 [facility] Basophils (Bld) [#/Vol] 3.0 10*3/uL 2.0-7.7 [facility] Basophils/100 WBC (Bld) 74.7 % 47-70 [facility] Basophils/100 WBC (Bld) 4.7 % 0-5 [facility] Basophils/100 WBC (Bld) 0.5 % 0-1 [facility] Blood erythrocytes count (nu mber/volume)Ordered By: Sidney Dominguez on 07-17-2023 RBC (Bld) [#/Vol] 3.40 10*6/uL 4.6-6.2 [facility] Blood hemoglobin measurement (mass/volume)Ordered By: Sidney Dominguez on 07-17-2023 Hemoglobin (Bld) [Mass/Vol] 11.6 g/dL 13.0-16.5 [facility] Blood lymphocytes/100 leukoc ytesOrdered By: Sidney Dominguez on 07-17-2023 Lymphocytes/100 WBC (Bld) 6.6 % 19-41 [facility] Blood manual differential co mment interpretation (narrative result)Ordered By: Sidney Dominguez on 07-17-2023 Manual differential comment Aime (Bld) [Interp] SCANNED [facility] Blood monocytes/100 leukocyt esOrdered By: Sidney Dominguez on 07-17-2023 Monocytes/100 WBC (Bld) 13.0 % 0-10 [facility] Blood platelet mean volumeOr dered By: Sidney Dominguez on 07-17-2023 Platelet mean volume (Bld) [Entitic vol] 8.9 fL 6.2-12.0 [facility] Determination of erythrocyte mean corpuscular volume (MCV)Ordered By: Sidney Dominguez on 07-17-2023 MCV (RBC) [Entitic vol] 101.8 fL 80-94 [facility] Hematocrit Auto (Bld) [Volum e fraction]Ordered By: Sidney Dominguez on 07-17-2023 Hematocrit (Bld) [Volume fraction] 34.6 % 40-54 [facility] INR in Blood by Coagulation assayOrdered By: Kevin Veras on 07-17-2023 INR Coag (Bld) [Relative time] 2.1 {INR} [facility] MCHC Auto (RBC) [Mass/Vol]Or dered By: Sidney Dominguez on 07-17-2023 MCHC (RBC) [Mass/Vol] 33.5 g/dL 32-36 [facility] Macrocytes detectionOrdered By: Sidney Dominguez on 07-17-2023 Macrocytes Ql (Bld) 1+ [facility] No Panel InformationOrdered By: Sidney Dominugez on 07-17-2023 34.1 pg 27.0-32.0 [facility] 18.9 % 11.6-14.6 [facility] 67.4 fl 35.1-43.9 [facility] 0.500 % 0.0-0.9 [facility] 0 % 0-5 [facility] 2+ [facility] 87 mL/min >60 [facility] 105 mL/min >60 [facility] 84.34 ml/min [facility] 11.9 RATIO 10-20 [facility] 2.4 mg/dL 1.6-2.6 [facility] 26.0 mmol/L 21.0-32.0 [facility] No Panel InformationOrdered By: Kevin Veras on 07-17-2023 23.4 SECONDS 11.7-14.9 [facility] Platelets bldOrdered By: Geovanny Dominguez on 07-17-2023 Platelets (Bld) [#/Vol] 182 10*3/uL 150-450 [facility] Review by pathologistOrdered By: Sidney Dominguez on 07-17-2023 Pathologist review Aime (Unsp spec) [Interp] May [facility] Pathologist review Aime (Unsp spec) [Interp] Reviewed [facility] Serum or plasma calcium wilner urement (mass/volume)Ordered By: Sidney Dominguez on 07-17-2023 Calcium [Mass/Vol] 8.6 mg/dL 8.5-10.1 [facility] Serum or plasma creatinine m easurement (mass/volume)Ordered By: Sidney Dominguez on 07-17-2023 Creatinine [Mass/Vol] 0.93 mg/dL 0.70-1.30 [facility] Serum or plasma urea nitroge n measurement (mass/volume)Ordered By: Sidney Dominguez on 07-17-2023 Urea nitrogen [Mass/Vol] 11 mg/dL 7-18 [facility] Thin prep Papanicolaou smear with manual screeningOrdered By: Sidney Dominguez on 07-17-2023 Thin prep Papanicolaou smear with manual screening 1+ [facility] Thin prep Papanicolaou smear with manual screening 5 5-15 [facility] Stool enteric pathogen panel by probe and target amplification methodOrdered By: Estela Kwon on 07-16-2023 Gastrointestinal pathogens panel DONITA+probe (Stl) [facility] Absolute lymphocyte countOrd ered By: Ildefonso Rockwell on 07-15-2023 Lymphocytes Auto (Unsp spec) [#/Vol] 0.42 10*3/uL 0.83-4.51 [facility] Basophil percentageOrdered B y: Ildefonso Rhodesmike on 07-15-2023 Basophil percentage 0 SEEN /hpf 0-5 [facility] Basophil percentage 1.4 mmol/L 0.4-2.0 [facility] Lactate [Moles/Vol] 1.4 mmol/L 0.4-2.0 [facility] Basophil percentage 6.3 g/dL 6.4-8.2 [facility] Basophil percentage 0.90 mg/dL 0.20-1.00 [facility] Basophils/100 WBC (Bld) 0.3 % 0-1 [facility] Bilirubin [Mass/Vol] 0.90 mg/dL 0.20-1.00 [facility] Comment on above: For patients on eltr ombopag therapy, use of Dimension [place] TBIL is not recommended. Chloride [Moles/Vol] 108 mmol/L 98-107 [facility] Eosinophils/100 WBC (Bld) 1.9 % 0-5 [facility] Glucose [Mass/Vol] 114 mg/dL 74-106 [facility] Comment on above: Fasting Glucose resu lt from 100 to 125 mg/dL suggests IMPAIRED HOMEOSTASIS per A.D.A. criteria. Neutrophils (Bld) [#/Vol] 6.3 10*3/uL 2.0-7.7 [facility] Neutrophils/100 WBC (Bld) 80.7 % 47-70 [facility] Potassium [Moles/Vol] 3.7 mmol/L 3.5-5.1 [facility] Comment on above: Slight Hemolysis, Re sult may be falsely increased. Protein [Mass/Vol] 6.3 g/dL 6.4-8.2 [facility] Sodium [Moles/Vol] 141 mmol/L 136-145 [facility] WBC (Bld) [#/Vol] 7.8 10*3/uL 4.4-11.0 [facility] Bilirubin Test strip Ql (U)O rdered By: Ildefonso Rockwell on 07-15-2023 Bilirubin Ql (U) Negative Negative [facility] Blood erythrocytes count (nu mber/volume)Ordered By: Ildefonso Rockwell on 07-15-2023 RBC (Bld) [#/Vol] 3.75 10*6/uL 4.6-6.2 [facility] Blood hemoglobin measurement (mass/volume)Ordered By: Ildefonso Rockwell on 07-15-2023 Hemoglobin (Bld) [Mass/Vol] 12.3 g/dL 13.0-16.5 [facility] Blood lymphocytes/100 leukoc ytesOrdered By: Ildefonso Rockwell on 07-15-2023 Lymphocytes/100 WBC (Bld) 5.4 % 19-41 [facility] Blood manual differential co mment interpretation (narrative result)Ordered By: Ildefonso Rockwell on 07-15-2023 Manual differential comment Aime (Bld) [Interp] SCANNED [facility] Comment on above: LYMPHOPENIA NOTED Blood monocytes/100 leukocyt esOrdered By: Ildefonso Rockwell on 07-15-2023 Monocytes/100 WBC (Bld) 11.1 % 0-10 [facility] Blood platelet mean volumeOr dered By: Ildefonso Rockwell on 07-15-2023 Platelet mean volume (Bld) [Entitic vol] 9.6 fL 6.2-12.0 [facility] Calcium oxalate crystals det ection in urine sediment by light microscopyOrdered By: Ildefonso Rockwell on 07-15-2023 Calcium oxalate crystals LM Ql (Urine sed) 1+ /hpf [facility] Determination of erythrocyte mean corpuscular volume (MCV)Ordered By: Ildefonso Rockwell on 07-15-2023 MCV (RBC) [Entitic vol] 98.4 fL 80-94 [facility] Hematocrit Auto (Bld) [Volum e fraction]Ordered By: Ildefonso Rockwell on 07-15-2023 Hematocrit (Bld) [Volume fraction] 36.9 % 40-54 [facility] INR in Blood by Coagulation assayOrdered By: Ildefonso Rockwell on 07-15-2023 INR Coag (Bld) [Relative time] 1.5 {INR} [facility] Ketones Test strip Ql (U)Ord ered By: Ildefonso Rockwell on 07-15-2023 Ketones Ql (U) Negative Negative [facility] Laboratory - Chemistry and C hemistry - challengeOrdered By: Ildefonso Rockwell on 07-15-2023 ALP [Catalytic activity/Vol] 76 U/L 45-117 [facility] ALT [Catalytic activity/Vol] 23 U/L 16-61 [facility] CO2 [Moles/Vol] 25.0 mmol/L 21.0-32.0 [facility] Globulin (S) [Mass/Vol] 3.2 g/dL 2.2-4.2 [facility] Lipase [Catalytic activity/Vol] 26 U/L 13-75 [facility] Comment on above: Please note:LIPASE r evised reference range effective 22. New Lipase methodology. Expected to produce lower values than the previous assay method. NEW Reference Range: 13 - 75 U/L Urea nitrogen/Creatinine [Mass ratio] 20.8 mg/mg 10-20 [facility] Laboratory - CoagulationOrde red By: Ildefonso Rockwell on 07-15-2023 PT Coag (PPP) [Time] 18.3 s 11.7-14.9 [facility] Laboratory - Hematology and Cell countsOrdered By: Ildefonso Rockwell on 07-15-2023 Erythrocyte distribution width (RBC) [Entitic vol] 64.7 fL 35.1-43.9 [facility] Erythrocyte distribution width (RBC) [Ratio] 18.8 % 11.6-14.6 [facility] Immature granulocytes/100 WBC (Bld) 0.600 % 0.0-0.9 [facility] Comment on above: IG% - Immature Granu locytes (promyelocytes, myelocytes and metamyelocytes) > 1% indicates that a LEFT SHIFT is Present. MCH (RBC) [Entitic mass] 32.8 pg 27.0-32.0 [facility] Nucleated RBC/100 WBC (Bld) [Ratio] 0 % 0-5 [facility] MCHC Auto (RBC) [Mass/Vol]Or dered By: Ildefonso Rockwell on 07-15-2023 MCHC (RBC) [Mass/Vol] 33.3 g/dL 32-36 [facility] Mucus LM Ql (Urine sed)Order ed By: Ildefonso Rockwell on 07-15-2023 Mucus Ql (Urine sed) 0 SEEN /hpf [facility] Nitrite Test strip Ql (U)Ord ered By: Ildefonso Rockwell on 07-15-2023 Nitrite Ql (U) Negative Negative [facility] No Panel InformationOrdered By: Ildefonso Rockwell on 07-15-2023 Estimated Creatinine Clearance Calc 81.71 ml/min [facility] Estimated GFR (MDRD) Amer 101 mL/min >60 [facility] Comment on above: GFR Calc Estimated GFR (MDRD) Non-Af Amer 83 mL/min >60 [facility] Comment on above: Non- GFR Calc 3.2 g/dL 2.2-4.2 [facility] 26 U/L 13-75 [facility] 76 U/L 45-117 [facility] 23 U/L 16-61 [facility] Platelets bldOrdered By: Milvia Rockwell on 07-15-2023 Platelets (Bld) [#/Vol] 204 10*3/uL 150-450 [facility] Protein Test strip Ql (U)Ord ered By: Ildefonso Rockwell on 07-15-2023 Protein Ql (U) 15 mg/dl Negative [facility] Serum or plasma albumin wilner urement (mass/volume)Ordered By: Ildefonso Rockwell on 07-15-2023 Albumin [Mass/Vol] 3.1 g/dL 3.2-5.0 [facility] Serum or plasma albumin/glob ulin mass ratioOrdered By: Ildefonso Rockwell on 07-15-2023 Albumin/Globulin [Mass ratio] 1.0 {ratio} 0.9-2.4 [facility] Serum or plasma calcium wilner urement (mass/volume)Ordered By: Ildefonso Rockwell on 07-15-2023 Calcium [Mass/Vol] 8.8 mg/dL 8.5-10.1 [facility] Serum or plasma creatinine m easurement (mass/volume)Ordered By: Ildefonso Rockwell on 07-15-2023 Creatinine [Mass/Vol] 0.96 mg/dL 0.70-1.30 [facility] Comment on above: The validity of the calculated GFR & GFRAA in patients over 70 years has not been determined. Clinical correlation is essential. Serum or plasma urea nitroge n measurement (mass/volume)Ordered By: Ildefonso Rockwell on 07-15-2023 Urea nitrogen [Mass/Vol] 20 mg/dL 7-18 [facility] Squamous epithelial cells de tection in urine sediment by light microscopyOrdered By: Ildefonso Rockwell on 07-15-2023 Epithelial cells.squamous LM Ql (Urine sed) 0-5 SEEN /hpf 0-5 [facility] Thin prep Papanicolaou smear with manual screeningOrdered By: Ildefonso Rockwell on 07-15-2023 Thin prep Papanicolaou smear with manual screening 21 U/L 15-37 [facility] Comment on above: Slight Hemolysis, Re sult may be falsely increased. Thin prep Papanicolaou smear with manual screening 8 5-15 [facility] Urine blood detectionOrdered By: Ildefonso Rockwell on 07-15-2023 RBC Ql (U) Negative Negative [facility] RBC Ql (U) 0 SEEN /hpf 0-5 [facility] Urine clarityOrdered By: Milvia Rockwell on 07-15-2023 Clarity (U) Clear Clear [facility] Urine color determinationOrd ered By: Ildefonso Rockwell on 07-15-2023 Color (U) Yellow Yellow [facility] Urine glucose detectionOrder ed By: Ildefonso Rockwell on 07-15-2023 Glucose Ql (U) Normal mg/dl Normal [facility] Urine leukocyte esterase det ection by dipstickOrdered By: Ildefonso Rockwell on 07-15-2023 Leukocyte esterase Test strip Ql (U) 25 /ul Negative [facility] Urine pHOrdered By: Ildefonso schroederr on 07-15-2023 pH (U) 6.0 [pH] 5.0 - 8.0 [facility] Urine sediment bacteria coun t by microscopy (number/high power field)Ordered By: Ildefonso Rockwell on 07-15-2023 Bacteria LM.HPF (Urine sed) [#/Area] 0 /[HPF] None Seen [facility] Urine specific gravity measu rementOrdered By: Ildefonso Rockwell on 07-15-2023 Specific gravity (U) [Rel density] 1.015 1.002-1.030 [facility] Urobilinogen Auto test strip Ql (U)Ordered By: Ildefonso Rhodesmike on 07-15-2023 Urobilinogen Ql (U) 4 mg/dl Normal [facility] INR in Blood by Coagulation assayOrdered By: Karyna Nagel on 07-14-2023 INR Coag (Bld) [Relative time] 1.3 {INR} [facility] Laboratory - CoagulationOrde red By: Karyna Nagel on 07-14-2023 PT Coag (PPP) [Time] 16.4 s 11.7-14.9 [facility] No Panel InformationOrdered By: Karyna Nagel on 07-14-2023 16.4 SECONDS 11.7-14.9 [facility] MRI RECTUM WO/W IVCONon 10- [facility] Absolute lymphocyte countOrd ered By: Dale Rosales on 07-12-2023 Lymphocytes Auto (Unsp spec) [#/Vol] 0.24 10*3/uL 0.83-4.51 [facility] Basophil percentageOrdered B y: Dale Rosales on 07-12-2023 Basophil percentage 106 mg/dL 74-106 [facility] Basophil percentage 6.1 g/dL 6.4-8.2 [facility] Basophil percentage 0.60 mg/dL 0.20-1.00 [facility] Basophil percentage 144 mmol/L 136-145 [facility] Basophil percentage 3.7 mmol/L 3.5-5.1 [facility] Basophil percentage 112 mmol/L 98-107 [facility] Basophils (Bld) [#/Vol] 5.4 10*3/uL 4.4-11.0 [facility] Basophils (Bld) [#/Vol] 4.3 10*3/uL 2.0-7.7 [facility] Basophils/100 WBC (Bld) 0.4 % 0-1 [facility] Basophils/100 WBC (Bld) 78.7 % 47-70 [facility] Basophils/100 WBC (Bld) 2.4 % 0-5 [facility] Bilirubin [Mass/Vol] 0.60 mg/dL 0.20-1.00 [facility] Comment on above: For patients on eltr ombopag therapy, use of Dimension [place] TBIL is not recommended. Chloride [Moles/Vol] 112 mmol/L 98-107 [facility] Eosinophils/100 WBC (Bld) 2.4 % 0-5 [facility] Glucose [Mass/Vol] 106 mg/dL 74-106 [facility] Comment on above: Fasting Glucose resu lt from 100 to 125 mg/dL suggests IMPAIRED HOMEOSTASIS per A.D.A. criteria. Neutrophils (Bld) [#/Vol] 4.3 10*3/uL 2.0-7.7 [facility] Neutrophils/100 WBC (Bld) 78.7 % 47-70 [facility] Potassium [Moles/Vol] 3.7 mmol/L 3.5-5.1 [facility] Protein [Mass/Vol] 6.1 g/dL 6.4-8.2 [facility] Sodium [Moles/Vol] 144 mmol/L 136-145 [facility] WBC (Bld) [#/Vol] 5.4 10*3/uL 4.4-11.0 [facility] Blood erythrocytes count (nu mber/volume)Ordered By: Dale Rosales on 07-12-2023 RBC (Bld) [#/Vol] 3.52 10*6/uL 4.6-6.2 [facility] Blood hemoglobin measurement (mass/volume)Ordered By: Dale Rosales on 07-12-2023 Hemoglobin (Bld) [Mass/Vol] 11.6 g/dL 13.0-16.5 [facility] Blood lymphocytes/100 leukoc ytesOrdered By: Dale Rosales on 07-12-2023 Lymphocytes/100 WBC (Bld) 4.5 % 19-41 [facility] Blood manual differential co mment interpretation (narrative result)Ordered By: Dale Rosales on 07-12-2023 Manual differential comment Aime (Bld) [Interp] SCANNED [facility] Blood monocytes/100 leukocyt esOrdered By: Dale Rosales on 07-12-2023 Monocytes/100 WBC (Bld) 13.4 % 0-10 [facility] Blood platelet mean volumeOr dered By: Dale Rosales on 07-12-2023 Platelet mean volume (Bld) [Entitic vol] 8.9 fL 6.2-12.0 [facility] Determination of erythrocyte mean corpuscular volume (MCV)Ordered By: Dale Rosales on 07-12-2023 MCV (RBC) [Entitic vol] 99.1 fL 80-94 [facility] Hematocrit Auto (Bld) [Volum e fraction]Ordered By: Dale Rosales on 07-12-2023 Hematocrit (Bld) [Volume fraction] 34.9 % 40-54 [facility] INR in Blood by Coagulation assayOrdered By: Dale Rosales on 07-12-2023 INR Coag (Bld) [Relative time] 9.8 {INR} [facility] Comment on above: CRITICAL VALUE VERIF IED. CALLED TO YO KAUR07/12/23 1103 Dluce Watson.RESULTS READ BACK BY SAME . Laboratory - Chemistry and C hemistry - challengeOrdered By: Dale Rosales on 07-12-2023 ALP [Catalytic activity/Vol] 70 U/L 45-117 [facility] ALT [Catalytic activity/Vol] 23 U/L 16-61 [facility] [facility] CO2 [Moles/Vol] 28.0 mmol/L 21.0-32.0 [facility] Globulin (S) [Mass/Vol] 3.0 g/dL 2.2-4.2 [facility] Urea nitrogen/Creatinine [Mass ratio] 20.6 mg/mg 10-20 [facility] Laboratory - CoagulationOrde red By: Dale Rosales on 07-12-2023 PT Coag (PPP) [Time] 80.7 s 11.7-14.9 [facility] Laboratory - Hematology and Cell countsOrdered By: Dale Rosales on 07-12-2023 Erythrocyte distribution width (RBC) [Entitic vol] 62.9 fL 35.1-43.9 [facility] Erythrocyte distribution width (RBC) [Ratio] 18.4 % 11.6-14.6 [facility] Immature granulocytes/100 WBC (Bld) 0.600 % 0.0-0.9 [facility] Comment on above: IG% - Immature Granu locytes (promyelocytes, myelocytes and metamyelocytes) > 1% indicates that a LEFT SHIFT is Present. MCH (RBC) [Entitic mass] 33.0 pg 27.0-32.0 [facility] Nucleated RBC/100 WBC (Bld) [Ratio] 0 % 0-5 [facility] MCHC Auto (RBC) [Mass/Vol]Or dered By: Dale Rosales on 07-12-2023 MCHC (RBC) [Mass/Vol] 33.2 g/dL 32-36 [facility] No Panel InformationOrdered By: Dale Rosales on 07-12-2023 Estimated Creatinine Clearance Calc 80.86 ml/min [facility] Estimated GFR (MDRD) Amer 100 mL/min >60 [facility] Comment on above: GFR Calc Estimated GFR (MDRD) Non-Af Amer 82 mL/min >60 [facility] Comment on above: Non- GFR Calc 33.0 pg 27.0-32.0 [facility] 18.4 % 11.6-14.6 [facility] 62.9 fl 35.1-43.9 [facility] 0.600 % 0.0-0.9 [facility] 0 % 0-5 [facility] 80.7 SECONDS 11.7-14.9 [facility] 82 mL/min >60 [facility] 100 mL/min >60 [facility] 80.86 ml/min [facility] 20.6 RATIO 10-20 [facility] 3.0 g/dL 2.2-4.2 [facility] 70 U/L 45-117 [facility] 23 U/L 16-61 [facility] 28.0 mmol/L 21.0-32.0 [facility] Platelets bldOrdered By: Aaron Rosales on 07-12-2023 Platelets (Bld) [#/Vol] 200 10*3/uL 150-450 [facility] Serum or plasma albumin wilner urement (mass/volume)Ordered By: Dale Rosales on 07-12-2023 Albumin [Mass/Vol] 3.1 g/dL 3.2-5.0 [facility] Serum or plasma albumin/glob ulin mass ratioOrdered By: Dale Rosales on 07-12-2023 Albumin/Globulin [Mass ratio] 1.0 {ratio} 0.9-2.4 [facility] Serum or plasma calcium wilner urement (mass/volume)Ordered By: Dale Rosales on 07-12-2023 Calcium [Mass/Vol] 8.7 mg/dL 8.5-10.1 [facility] Serum or plasma creatinine m easurement (mass/volume)Ordered By: Dale Rosales on 07-12-2023 Creatinine [Mass/Vol] 0.97 mg/dL 0.70-1.30 [facility] Comment on above: The validity of the calculated GFR & GFRAA in patients over 70 years has not been determined. Clinical correlation is essential. Serum or plasma urea nitroge n measurement (mass/volume)Ordered By: Dale Rosales on 07-12-2023 Urea nitrogen [Mass/Vol] 20 mg/dL 7-18 [facility] Thin prep Papanicolaou smear with manual screeningOrdered By: Dale Rosales on 07-12-2023 Thin prep Papanicolaou smear with manual screening 20 U/L 15-37 [facility] Thin prep Papanicolaou smear with manual screening 4 5-15 [facility] Absolute lymphocyte countOrd ered By: Brittni Everett on 07-07-2023 Lymphocytes Auto (Unsp spec) [#/Vol] 0.18 10*3/uL 0.83-4.51 [facility] Basophil percentageOrdered B y: Brittni Everett on 07-07-2023 Basophil percentage 111 mg/dL 74-106 [facility] Basophil percentage 6.6 g/dL 6.4-8.2 [facility] Basophil percentage 0.50 mg/dL 0.20-1.00 [facility] Basophil percentage 143 mmol/L 136-145 [facility] Basophil percentage 3.3 mmol/L 3.5-5.1 [facility] Basophil percentage 110 mmol/L 98-107 [facility] Basophils (Bld) [#/Vol] 5.2 10*3/uL 4.4-11.0 [facility] Basophils (Bld) [#/Vol] 4.2 10*3/uL 2.0-7.7 [facility] Basophils/100 WBC (Bld) 0.6 % 0-1 [facility] Basophils/100 WBC (Bld) 80.1 % 47-70 [facility] Basophils/100 WBC (Bld) 3.1 % 0-5 [facility] Bilirubin [Mass/Vol] 0.50 mg/dL 0.20-1.00 [facility] Comment on above: For patients on eltr ombopag therapy, use of Dimension [place] TBIL is not recommended. Chloride [Moles/Vol] 110 mmol/L 98-107 [facility] Eosinophils/100 WBC (Bld) 3.1 % 0-5 [facility] Glucose [Mass/Vol] 111 mg/dL 74-106 [facility] Comment on above: Fasting Glucose resu lt from 100 to 125 mg/dL suggests IMPAIRED HOMEOSTASIS per A.D.A. criteria. Neutrophils (Bld) [#/Vol] 4.2 10*3/uL 2.0-7.7 [facility] Neutrophils/100 WBC (Bld) 80.1 % 47-70 [facility] Potassium [Moles/Vol] 3.3 mmol/L 3.5-5.1 [facility] Protein [Mass/Vol] 6.6 g/dL 6.4-8.2 [facility] Sodium [Moles/Vol] 143 mmol/L 136-145 [facility] WBC (Bld) [#/Vol] 5.2 10*3/uL 4.4-11.0 [facility] Basophil percentageOrdered B y: Andre Quesada on 07-07-2023 Basophil percentage 265 U/L [facility] LDH [Catalytic activity/Vol] 265 U/L [facility] Blood erythrocytes count (nu mber/volume)Ordered By: Brittni Everett on 07-07-2023 RBC (Bld) [#/Vol] 3.83 10*6/uL 4.6-6.2 [facility] Blood hemoglobin measurement (mass/volume)Ordered By: Brittni Everett on 07-07-2023 Hemoglobin (Bld) [Mass/Vol] 12.5 g/dL 13.0-16.5 [facility] Blood lymphocytes/100 leukoc ytesOrdered By: Brittni Everett on 07-07-2023 Lymphocytes/100 WBC (Bld) 3.5 % 19-41 [facility] Blood manual differential co mment interpretation (narrative result)Ordered By: Brittni Everett on 07-07-2023 Manual differential comment Aime (Bld) [Interp] COMMENT [facility] Comment on above: LYMPHOPENIA. Blood monocytes/100 leukocyt esOrdered By: Brittni Everett on 07-07-2023 Monocytes/100 WBC (Bld) 11.9 % 0-10 [facility] Blood platelet mean volumeOr dered By: Brittni Everett on 07-07-2023 Platelet mean volume (Bld) [Entitic vol] 8.6 fL 6.2-12.0 [facility] Determination of erythrocyte mean corpuscular volume (MCV)Ordered By: Brittni Everett on 07-07-2023 MCV (RBC) [Entitic vol] 97.7 fL 80-94 [facility] Hematocrit Auto (Bld) [Volum e fraction]Ordered By: Brittni Everett on 07-07-2023 Hematocrit (Bld) [Volume fraction] 37.4 % 40-54 [facility] Laboratory - Chemistry and C hemistry - challengeOrdered By: Brittni Everett on 07-07-2023 ALP [Catalytic activity/Vol] 67 U/L 45-117 [facility] ALT [Catalytic activity/Vol] 21 U/L 16-61 [facility] CO2 [Moles/Vol] 29.0 mmol/L 21.0-32.0 [facility] Globulin (S) [Mass/Vol] 3.1 g/dL 2.2-4.2 [facility] Urea nitrogen/Creatinine [Mass ratio] 18.3 mg/mg 10-20 [facility] Laboratory - Hematology and Cell countsOrdered By: Brittni Everett on 07-07-2023 Erythrocyte distribution width (RBC) [Entitic vol] 53.8 fL 35.1-43.9 [facility] Erythrocyte distribution width (RBC) [Ratio] 16.6 % 11.6-14.6 [facility] Immature granulocytes/100 WBC (Bld) 0.800 % 0.0-0.9 [facility] Comment on above: IG% - Immature Granu locytes (promyelocytes, myelocytes and metamyelocytes) > 1% indicates that a LEFT SHIFT is Present. MCH (RBC) [Entitic mass] 32.6 pg 27.0-32.0 [facility] Nucleated RBC/100 WBC (Bld) [Ratio] 0 % 0-5 [facility] MCHC Auto (RBC) [Mass/Vol]Or dered By: Brittni Everett on 07-07-2023 MCHC (RBC) [Mass/Vol] 33.4 g/dL 32-36 [facility] No Panel InformationOrdered By: Brittni Everett on 07-07-2023 Estimated Creatinine Clearance Calc 75.42 ml/min [facility] Estimated GFR (MDRD) Amer 92 mL/min >60 [facility] Comment on above: GFR Calc Estimated GFR (MDRD) Non-Af Amer 76 mL/min >60 [facility] Comment on above: Non- GFR Calc 32.6 pg 27.0-32.0 [facility] 16.6 % 11.6-14.6 [facility] 53.8 fl 35.1-43.9 [facility] 0.800 % 0.0-0.9 [facility] 0 % 0-5 [facility] 76 mL/min >60 [facility] 92 mL/min >60 [facility] 75.42 ml/min [facility] 18.3 RATIO 10-20 [facility] 3.1 g/dL 2.2-4.2 [facility] 67 U/L 45-117 [facility] 21 U/L 16-61 [facility] 29.0 mmol/L 21.0-32.0 [facility] Platelets bldOrdered By: Komal Everett on 07-07-2023 Platelets (Bld) [#/Vol] 220 10*3/uL 150-450 [facility] Serum or plasma albumin wilner urement (mass/volume)Ordered By: Brittni Everett on 07-07-2023 Albumin [Mass/Vol] 3.5 g/dL 3.2-5.0 [facility] Serum or plasma albumin/glob ulin mass ratioOrdered By: Brittni Everett on 07-07-2023 Albumin/Globulin [Mass ratio] 1.1 {ratio} 0.9-2.4 [facility] Serum or plasma calcium wilner urement (mass/volume)Ordered By: Brittni Everett on 07-07-2023 Calcium [Mass/Vol] 9.0 mg/dL 8.5-10.1 [facility] Serum or plasma creatinine m easurement (mass/volume)Ordered By: Brittni Everett on 07-07-2023 Creatinine [Mass/Vol] 1.04 mg/dL 0.70-1.30 [facility] Comment on above: The validity of the calculated GFR & GFRAA in patients over 70 years has not been determined. Clinical correlation is essential. Serum or plasma urea nitroge n measurement (mass/volume)Ordered By: Brittni Everett on 07-07-2023 Urea nitrogen [Mass/Vol] 19 mg/dL 7-18 [facility] Thin prep Papanicolaou smear with manual screeningOrdered By: Brittni Everett on 07-07-2023 Thin prep Papanicolaou smear with manual screening 19 U/L 15- [facility] Thin prep Papanicolaou smear with manual screening 4 5-15 [facility] Laboratory - Chemistry and C hemistry - challengeOrdered By: Brittni Everett on 06-30-2023 Magnesium [Mass/Vol] 2.3 mg/dL 1.6-2.6 [facility] No Panel InformationOrdered By: Brittni Everett on 06-30-2023 2.3 mg/dL 1.6-2.6 [facility] Absolute lymphocyte countOrd ered By: Andre Quesada on 06-22-2023 Lymphocytes Auto (Unsp spec) [#/Vol] 0.47 10*3/uL 0.83-4.51 [facility] Basophil percentageOrdered B y: Andre Quesada on 06-22-2023 Basophils/100 WBC (Bld) 0.5 % 0-1 [facility] Bilirubin [Mass/Vol] 0.40 mg/dL 0.20-1.00 [facility] Comment on above: For patients on eltr ombopag therapy, use of Dimension [place] TBIL is not recommended. Chloride [Moles/Vol] 108 mmol/L 98-[address] [facility] Eosinophils/100 WBC (Bld) 3.0 % 0-5 [facility] Glucose [Mass/Vol] 110 mg/dL 74-106 [facility] Comment on above: Fasting Glucose resu lt from 100 to 125 mg/dL suggests IMPAIRED HOMEOSTASIS per A.D.A. criteria. LDH [Catalytic activity/Vol] 221 U/L 87-241 [facility] Neutrophils (Bld) [#/Vol] 4.6 10*3/uL 2.0-7.7 [facility] Neutrophils/100 WBC (Bld) 76.1 % 47-70 [facility] Potassium [Moles/Vol] 4.1 mmol/L 3.5-5.1 [facility] Protein [Mass/Vol] 6.7 g/dL 6.4-8.2 [facility] Sodium [Moles/Vol] 141 mmol/L 136-145 [facility] WBC (Bld) [#/Vol] 6.0 10*3/uL 4.4-11.0 [facility] Blood erythrocytes count (nu mber/volume)Ordered By: Andre Quesada on 06-22-2023 RBC (Bld) [#/Vol] 4.08 10*6/uL 4.6-6.2 [facility] Blood hemoglobin measurement (mass/volume)Ordered By: Andre Quesada on 06-22-2023 Hemoglobin (Bld) [Mass/Vol] 13.2 g/dL 13.0-16.5 [facility] Blood lymphocytes/100 leukoc ytesOrdered By: Andre Quesada on 06-22-2023 Lymphocytes/100 WBC (Bld) 7.8 % 19-41 [facility] Blood monocytes/100 leukocyt esOrdered By: Andre Quesada on 06-22-2023 Monocytes/100 WBC (Bld) 11.8 % 0-10 [facility] Blood platelet mean volumeOr dered By: Andre Quesada on 06-22-2023 Platelet mean volume (Bld) [Entitic vol] 8.5 fL 6.2-12.0 [facility] Determination of erythrocyte mean corpuscular volume (MCV)Ordered By: Andre Quesada on 06-22-2023 MCV (RBC) [Entitic vol] 98.5 fL 80-94 [facility] Hematocrit Auto (Bld) [Volum e fraction]Ordered By: Andre Quesada on 06-22-2023 Hematocrit (Bld) [Volume fraction] 40.2 % 40-54 [facility] Laboratory - Chemistry and C hemistry - challengeOrdered By: Andre Quesada on 06-22-2023 ALP [Catalytic activity/Vol] 65 U/L 45-117 [facility] ALT [Catalytic activity/Vol] 22 U/L 16-61 [facility] CO2 [Moles/Vol] 28.0 mmol/L 21.0-32.0 [facility] Globulin (S) [Mass/Vol] 3.3 g/dL 2.2-4.2 [facility] Urea nitrogen/Creatinine [Mass ratio] 20.3 mg/mg 10-20 [facility] Laboratory - Chemistry and C hemistry - challengeOrdered By: Brittni Everett on 06-22-2023 Magnesium [Mass/Vol] 2.4 mg/dL 1.6-2.6 [facility] Laboratory - Hematology and Cell countsOrdered By: Andre Quesada on 06-22-2023 Erythrocyte distribution width (RBC) [Entitic vol] 44.2 fL 35.1-43.9 [facility] Erythrocyte distribution width (RBC) [Ratio] 13.8 % 11.6-14.6 [facility] Immature granulocytes/100 WBC (Bld) 0.800 % 0.0-0.9 [facility] Comment on above: IG% - Immature Granu locytes (promyelocytes, myelocytes and metamyelocytes) > 1% indicates that a LEFT SHIFT is Present. MCH (RBC) [Entitic mass] 32.4 pg 27.0-32.0 [facility] Nucleated RBC/100 WBC (Bld) [Ratio] 0.3 % 0-5 [facility] MCHC Auto (RBC) [Mass/Vol]Or dered By: Andre Quesada on 06-22-2023 MCHC (RBC) [Mass/Vol] 32.8 g/dL 32-36 [facility] No Panel InformationOrdered By: Andre Quesada on 06-22-2023 Estimated Creatinine Clearance Calc 83.44 ml/min [facility] Estimated GFR (MDRD) Amer 104 mL/min >60 [facility] Comment on above: GFR Calc Estimated GFR (MDRD) Non-Af Amer 86 mL/min >60 [facility] Comment on above: Non- GFR Calc Platelets bldOrdered By: Jose Alfredo Quesada on 06-22-2023 Platelets (Bld) [#/Vol] 173 10*3/uL 150-450 [facility] Serum or plasma albumin wilner urement (mass/volume)Ordered By: Andre Quesada on 06-22-2023 Albumin [Mass/Vol] 3.4 g/dL 3.2-5.0 [facility] Serum or plasma albumin/glob ulin mass ratioOrdered By: Andre Quesada on 06-22-2023 Albumin/Globulin [Mass ratio] 1.0 {ratio} 0.9-2.4 [facility] Serum or plasma calcium wilner urement (mass/volume)Ordered By: Andre Quesada on 06-22-2023 Calcium [Mass/Vol] 9.0 mg/dL 8.5-10.1 [facility] Serum or plasma creatinine m easurement (mass/volume)Ordered By: Andre Quesada on 06-22-2023 Creatinine [Mass/Vol] 0.94 mg/dL 0.70-1.30 [facility] Comment on above: The validity of the calculated GFR & GFRAA in patients over 70 years has not been determined. Clinical correlation is essential. Serum or plasma urea nitroge n measurement (mass/volume)Ordered By: Andre Quesada on 06-22-2023 Urea nitrogen [Mass/Vol] 19 mg/dL 7-18 [facility] Thin prep Papanicolaou smear with manual screeningOrdered By: Andre Quesada on 06-22-2023 Thin prep Papanicolaou smear with manual screening 10 U/L 15-37 [facility] Thin prep Papanicolaou smear with manual screening 5 5-15 [facility] Blood manual differential co mment interpretation (narrative result)Ordered By: Andre Quesada on 06-16-2023 Manual differential comment Aime (Bld) [Interp] SCANNED [facility] INR in Blood by Coagulation assayOrdered By: Andre Quesada on 06-09-2023 INR Coag (Bld) [Relative time] 2.2 {INR} [facility] Laboratory - CoagulationOrde red By: Andre Quesada on 06-09-2023 PT Coag (PPP) [Time] 25.0 s 11.7-14.9 [facility] No Panel InformationOrdered By: Andre Quesada on 06-09-2023 25.0 SECONDS 11.7-14.9 [facility] INR in Blood by Coagulation assayOrdered By: Jt Bird on 05-28-2023 INR Coag (Bld) [Relative time] 2.0 {INR} [facility] Laboratory - CoagulationOrde red By: Jt Bird on 05-28-2023 PT Coag (PPP) [Time] 22.7 s 11.7-14.9 [facility] No Panel InformationOrdered By: Cameron Childers on 05-28-2023 Estimated GFR (MDRD) Amer 114 mL/min >60 [facility] Comment on above: GFR Calc Estimated GFR (MDRD) Non-Af Amer 94 mL/min >60 [facility] Comment on above: Non- GFR Calc 94 mL/min >60 [facility] 114 mL/min >60 [facility] No Panel InformationOrdered By: Jt Bird on 05-28-2023 22.7 SECONDS 11.7-14.9 [facility] Serum or plasma creatinine m easurement (mass/volume)Ordered By: Cameron Childers on 05-28-2023 Creatinine [Mass/Vol] 0.87 mg/dL 0.70-1.30 [facility] Comment on above: The validity of the calculated GFR & GFRAA in patients over 70 years has not been determined. Clinical correlation is essential. No Panel InformationOrdered By: Andre Quesada on 05-25-2023 Miscellaneous Test Comment MAILED SPECIMEN [facility] MAILED SPECIMEN [facility] Absolute lymphocyte countOrd ered By: Andre Quesada on 05-11-2023 Lymphocytes Auto (Unsp spec) [#/Vol] 1.22 10*3/uL 0.83-4.51 [facility] Basophil percentageOrdered B y: Andre Quesada on 05-11-2023 Basophils/100 WBC (Bld) 0.7 % 0-1 [facility] Bilirubin [Mass/Vol] 0.30 mg/dL 0.20-1.00 [facility] Comment on above: For patients on eltr ombopag therapy, use of Dimension [place] TBIL is not recommended. Chloride [Moles/Vol] 109 mmol/L 98-107 [facility] Eosinophils/100 WBC (Bld) 4.1 % 0-5 [facility] Glucose [Mass/Vol] 109 mg/dL 74-106 [facility] Comment on above: Fasting Glucose resu lt from 100 to 125 mg/dL suggests IMPAIRED HOMEOSTASIS per A.D.A. criteria. LDH [Catalytic activity/Vol] 246 U/L 87-241 [facility] Neutrophils (Bld) [#/Vol] 4.9 10*3/uL 2.0-7.7 [facility] Neutrophils/100 WBC (Bld) 68.0 % 47-70 [facility] Potassium [Moles/Vol] 3.5 mmol/L 3.5-5.1 [facility] Protein [Mass/Vol] 7.0 g/dL 6.4-8.2 [facility] Sodium [Moles/Vol] 140 mmol/L 136-145 [facility] WBC (Bld) [#/Vol] 7.2 10*3/uL 4.4-11.0 [facility] Blood erythrocytes count (nu mber/volume)Ordered By: Andre Quesada on 05-11-2023 RBC (Bld) [#/Vol] 4.38 10*6/uL 4.6-6.2 [facility] Blood hemoglobin measurement (mass/volume)Ordered By: Andre Quesada on 05-11-2023 Hemoglobin (Bld) [Mass/Vol] 13.5 g/dL 13.0-16.5 [facility] Blood lymphocytes/100 leukoc ytesOrdered By: Andre Quesada on 05-11-2023 Lymphocytes/100 WBC (Bld) 17.1 % 19-41 [facility] Blood monocytes/100 leukocyt esOrdered By: Andre Quesada on 05-11-2023 Monocytes/100 WBC (Bld) 9.8 % 0-10 [facility] Blood platelet mean volumeOr dered By: Andre Quesada on 05-11-2023 Platelet mean volume (Bld) [Entitic vol] 9.3 fL 6.2-12.0 [facility] Determination of erythrocyte mean corpuscular volume (MCV)Ordered By: Andre Quesada on 05-11-2023 MCV (RBC) [Entitic vol] 94.7 fL 80-94 [facility] Hematocrit Auto (Bld) [Volum e fraction]Ordered By: Andre Quesada on 05-11-2023 Hematocrit (Bld) [Volume fraction] 41.5 % 40-54 [facility] Laboratory - Chemistry and C hemistry - challengeOrdered By: Andre Quesada on 05-11-2023 ALP [Catalytic activity/Vol] 68 U/L 45-117 [facility] ALT [Catalytic activity/Vol] 29 U/L 16-61 [facility] CO2 [Moles/Vol] 28.0 mmol/L 21.0-32.0 [facility] Globulin (S) [Mass/Vol] 3.5 g/dL 2.2-4.2 [facility] Urea nitrogen/Creatinine [Mass ratio] 17.9 mg/mg 10-20 [facility] Laboratory - Hematology and Cell countsOrdered By: Andre Quesada on 05-11-2023 Erythrocyte distribution width (RBC) [Entitic vol] 44.3 fL 35.1-43.9 [facility] Erythrocyte distribution width (RBC) [Ratio] 12.7 % 11.6-14.6 [facility] Immature granulocytes/100 WBC (Bld) 0.300 % 0.0-0.9 [facility] Comment on above: IG% - Immature Granu locytes (promyelocytes, myelocytes and metamyelocytes) > 1% indicates that a LEFT SHIFT is Present. MCH (RBC) [Entitic mass] 30.8 pg 27.0-32.0 [facility] Nucleated RBC/100 WBC (Bld) [Ratio] 0 % 0-5 [facility] MCHC Auto (RBC) [Mass/Vol]Or dered By: Andre Quesada on 05-11-2023 MCHC (RBC) [Mass/Vol] 32.5 g/dL 32-36 [facility] No Panel InformationOrdered By: Andre Quesada on 05-11-2023 Estimated GFR (MDRD) Amer 65 mL/min >60 [facility] Comment on above: GFR Calc Estimated GFR (MDRD) Non-Af Amer 54 mL/min >60 [facility] Comment on above: Non- GFR Calc Platelets bldOrdered By: Jose Alfredo Quesada on 05-11-2023 Platelets (Bld) [#/Vol] 248 10*3/uL 150-450 [facility] Serum or plasma albumin wilner urement (mass/volume)Ordered By: Andre Quesada on 05-11-2023 Albumin [Mass/Vol] 3.5 g/dL 3.2-5.0 [facility] Serum or plasma albumin/glob ulin mass ratioOrdered By: Andre Quesada on 05-11-2023 Albumin/Globulin [Mass ratio] 1.0 {ratio} 0.9-2.4 [facility] Serum or plasma calcium wilner urement (mass/volume)Ordered By: Andre Quesada on 05-11-2023 Calcium [Mass/Vol] 8.7 mg/dL 8.5-10.1 [facility] Serum or plasma carcinoembry onic antigen measurement (mass/volume)Ordered By: Andre Quesada on 05-11-2023 Carcinoembryonic Ag [Mass/Vol] 2.9 ng/mL 0.0-4.7 [facility] Comment on above: Nonsmokers <3.9 Smok ers <5.6[employer] Electrochemiluminescence Immunoassay(ECLIA)Values obtained with different assay methods or kitscannot be used interchangeably. Results cannot beinterpreted as absolute evidence of the presence orabsence of malignant disease.Performed at: [address] [id number] Director: Ed Ramirez PhD, Phone: [phone] Serum or plasma creatinine m easurement (mass/volume)Ordered By: Andre Quesada on 05-11-2023 Creatinine [Mass/Vol] 1.40 mg/dL 0.70-1.30 [facility] Comment on above: The validity of the calculated GFR & GFRAA in patients over 70 years has not been determined. Clinical correlation is essential. Serum or plasma urea nitroge n measurement (mass/volume)Ordered By: Andre Quesada on 05-11-2023 Urea nitrogen [Mass/Vol] 25 mg/dL 7-18 [facility] Thin prep Papanicolaou smear with manual screeningOrdered By: Andre Quesada on 05-11-2023 Thin prep Papanicolaou smear with manual screening 20 U/L 15-37 [facility] Thin prep Papanicolaou smear with manual screening 3 5-15 [facility] Basophil percentageOrdered B y: Alon Boland on 05-05-2023 Basophil percentage 1.1 mg/dL 0.70-1.30 [facility] Creatinine [Mass/Vol] 1.1 mg/dL 0.70-1.30 [facility] Laboratory - CoagulationOrde red By: Alon Boland on 05-05-2023 INR Coag (Bld) [Relative time] 1.7 {INR} [facility] Comment on above: Critical Value > 4.0 No Panel InformationOrdered By: Alon Boland on 05-05-2023 Bedside Estimated GFR (eGFR) > 60.0000 mL/min >60 [facility] > 60.0000 mL/min >60 [facility] 1.7 [facility] Whole blood prothrombin time Ordered By: Alon Boland on 05-05-2023 PT Coag (Bld) [Time] 19.1 s 11.7-14.9 [facility] Absolute lymphocyte countOrd ered By: Jt Membreno on 04-01-2023 Lymphocytes Auto (Unsp spec) [#/Vol] 1.40 10*3/uL 0.83-4.51 [facility] Basophil percentageOrdered B y: Jt Membreno on 04-01-2023 Basophil percentage 105 mg/dL 74-106 [facility] Basophil percentage 7.0 g/dL 6.4-8.2 [facility] Basophil percentage 0.30 mg/dL 0.20-1.00 [facility] Basophil percentage 171 mg/dL <200 [facility] Basophil percentage 103 mg/dL <199 [facility] Basophil percentage 139 mmol/L 136-145 [facility] Basophil percentage 4.0 mmol/L 3.5-5.1 [facility] Basophil percentage 110 mmol/L 98-107 [facility] Basophils (Bld) [#/Vol] 6.1 10*3/uL 4.4-11.0 [facility] Basophils (Bld) [#/Vol] 3.7 10*3/uL 2.0-7.7 [facility] Basophils/100 WBC (Bld) 0.5 % 0-1 [facility] Basophils/100 WBC (Bld) 61.5 % 47-70 [facility] Basophils/100 WBC (Bld) 4.5 % 0-5 [facility] Bilirubin [Mass/Vol] 0.30 mg/dL 0.20-1.00 [facility] Comment on above: For patients on eltr ombopag therapy, use of Dimension [place] TBIL is not recommended. Chloride [Moles/Vol] 110 mmol/L 98-107 [facility] Cholesterol [Mass/Vol] 171 mg/dL <200 [facility] Comment on above: <200 mg/dL Desirable 200-240 mg/dL Borderline >240 mg/dL High Risk Eosinophils/100 WBC (Bld) 4.5 % 0-5 [facility] Glucose [Mass/Vol] 105 mg/dL 74-106 [facility] Comment on above: Fasting Glucose resu lt from 100 to 125 mg/dL suggests IMPAIRED HOMEOSTASIS per A.D.A. criteria. Neutrophils (Bld) [#/Vol] 3.7 10*3/uL 2.0-7.7 [facility] Neutrophils/100 WBC (Bld) 61.5 % 47-70 [facility] Potassium [Moles/Vol] 4.0 mmol/L 3.5-5.1 [facility] Protein [Mass/Vol] 7.0 g/dL 6.4-8.2 [facility] Sodium [Moles/Vol] 139 mmol/L 136-145 [facility] Triglyceride [Mass/Vol] 103 mg/dL <199 [facility] Comment on above: The drugs N-Acetylcy steine and Metamizole may falsely depress this assay.Serum Triglycerides Reference Interval Normal <150 mg/dL Borderline high 150 - 199 mg/dL High 200 - 499 mg/dL Very High > or = 500 mg/dL WBC (Bld) [#/Vol] 6.1 10*3/uL 4.4-11.0 [facility] Blood erythrocytes count (nu mber/volume)Ordered By: Jt Membreno on 04-01-2023 RBC (Bld) [#/Vol] 4.53 10*6/uL 4.6-6.2 [facility] Blood hemoglobin measurement (mass/volume)Ordered By: Jt Membreno on 04-01-2023 Hemoglobin (Bld) [Mass/Vol] 14.0 g/dL 13.0-16.5 [facility] Blood lymphocytes/100 leukoc ytesOrdered By: Jt Membreno on 04-01-2023 Lymphocytes/100 WBC (Bld) 23.1 % 19-41 [facility] Blood monocytes/100 leukocyt esOrdered By: Jt Membreno on 04-01-2023 Monocytes/100 WBC (Bld) 10.1 % 0-10 [facility] Blood platelet mean volumeOr dered By: Jt Membreno on 04-01-2023 Platelet mean volume (Bld) [Entitic vol] 9.6 fL 6.2-12.0 [facility] Determination of erythrocyte mean corpuscular volume (MCV)Ordered By: Jt Membreno on 04-01-2023 MCV (RBC) [Entitic vol] 96.0 fL 80-94 [facility] Hematocrit Auto (Bld) [Volum e fraction]Ordered By: Jt Mmebreno on 04-01-2023 Hematocrit (Bld) [Volume fraction] 43.5 % 40-54 [facility] INR in Blood by Coagulation assayOrdered By: Jt Membreno on 04-01-2023 INR Coag (Bld) [Relative time] 2.2 {INR} [facility] Laboratory - Chemistry and C hemistry - challengeOrdered By: Jt Membreno on 04-01-2023 ALP [Catalytic activity/Vol] 59 U/L 45-117 [facility] ALT [Catalytic activity/Vol] 26 U/L 16-61 [facility] CO2 [Moles/Vol] 24.0 mmol/L 21.0-32.0 [facility] Globulin (S) [Mass/Vol] 3.6 g/dL 2.2-4.2 [facility] Magnesium [Mass/Vol] 2.3 mg/dL 1.6-2.6 [facility] Urea nitrogen/Creatinine [Mass ratio] 25.3 mg/mg 10-20 [facility] Laboratory - CoagulationOrde red By: Jt Membreno on 04-01-2023 PT Coag (PPP) [Time] 24.9 s 11.7-14.9 [facility] Laboratory - Hematology and Cell countsOrdered By: Jt Membreno on 04-01-2023 Erythrocyte distribution width (RBC) [Entitic vol] 46.7 fL 35.1-43.9 [facility] Erythrocyte distribution width (RBC) [Ratio] 13.2 % 11.6-14.6 [facility] Immature granulocytes/100 WBC (Bld) 0.300 % 0.0-0.9 [facility] Comment on above: IG% - Immature Granu locytes (promyelocytes, myelocytes and metamyelocytes) > 1% indicates that a LEFT SHIFT is Present. MCH (RBC) [Entitic mass] 30.9 pg 27.0-32.0 [facility] Nucleated RBC/100 WBC (Bld) [Ratio] 0 % 0-5 [facility] MCHC Auto (RBC) [Mass/Vol]Or dered By: Jt Membreno on 04-01-2023 MCHC (RBC) [Mass/Vol] 32.2 g/dL 32-36 [facility] No Panel InformationOrdered By: Jt Membreno on 04-01-2023 24.9 SECONDS 11.7-14.9 [facility] Estimated GFR (MDRD) Amer 98 mL/min >60 [facility] Comment on above: GFR Calc Estimated GFR (MDRD) Non-Af Amer 81 mL/min >60 [facility] Comment on above: Non- GFR Calc Thyroid Stimulating Hormone (TSH) 1.85 uIU/mL 0.358-3.74 [facility] Vitamin D 25-Hydroxy 70.1 ng/mL [facility] Comment on above: Vitamin D 25(OH) Sta tus Range Deficiency <20 ng/mL (50nmol/L) Insufficiency 20 - 30 ng/mL (50 - 75 nmol/L) Sufficiency 30 - 100 ng/mL (75 - 250 nmol/L) Toxicity >100 ng/mL (>250 nmol/L) 30.9 pg 27.0-32.0 [facility] 13.2 % 11.6-14.6 [facility] 46.7 fl 35.1-43.9 [facility] 0.300 % 0.0-0.9 [facility] 0 % 0-5 [facility] 81 mL/min >60 [facility] 98 mL/min >60 [facility] 25.3 RATIO 10-20 [facility] 3.6 g/dL 2.2-4.2 [facility] 59 U/L 45-117 [facility] 26 U/L 16-61 [facility] 2.3 mg/dL 1.6-2.6 [facility] 24.0 mmol/L 21.0-32.0 [facility] 1.85 uIU/mL 0.358-3.74 [facility] 70.1 ng/mL [facility] Platelets bldOrdered By: Mark Membreno on 04-01-2023 Platelets (Bld) [#/Vol] 216 10*3/uL 150-450 [facility] Serum or plasma albumin wilner urement (mass/volume)Ordered By: Jt Membreno on 04-01-2023 Albumin [Mass/Vol] 3.4 g/dL 3.2-5.0 [facility] Serum or plasma albumin/glob ulin mass ratioOrdered By: Jt Membreno on 04-01-2023 Albumin/Globulin [Mass ratio] 0.9 {ratio} 0.9-2.4 [facility] Serum or plasma calcium wilner urement (mass/volume)Ordered By: Jt Membreno on 04-01-2023 Calcium [Mass/Vol] 8.6 mg/dL 8.5-10.1 [facility] Serum or plasma cholesterol in HDL measurement (mass/volume)Ordered By: Jt Membreno on 04-01-2023 Cholesterol in HDL [Mass/Vol] 41 mg/dL >40 [facility] Comment on above: The drugs N-Acetylcy steine and Metamizole may falsely depress this assay. Reference Range HDL <40 mg/dL Low HDL Cholesterol HDL >or= 60 mg/dL High HDL Cholesterol Serum or plasma cholesterol in VLDL measurement (mass/volume)Ordered By: Jt Membreno on 04-01-2023 Cholesterol in VLDL [Mass/Vol] 21 mg/dL 5-40 [facility] Serum or plasma creatinine m easurement (mass/volume)Ordered By: Jt Membreno on 04-01-2023 Creatinine [Mass/Vol] 0.99 mg/dL 0.70-1.30 [facility] Comment on above: The validity of the calculated GFR & GFRAA in patients over 70 years has not been determined. Clinical correlation is essential. Serum or plasma low density lipoprotein (LDL) cholesterol measurement (mass/volume)Ordered By: Jt Membreno on 04-01-2023 Cholesterol in LDL [Mass/Vol] 109 mg/dL 0-130 [facility] Serum or plasma urea nitroge n measurement (mass/volume)Ordered By: Jt Membreno on 04-01-2023 Urea nitrogen [Mass/Vol] 25 mg/dL 7-18 [facility] Thin prep Papanicolaou smear with manual screeningOrdered By: Jt Membreno on 04-01-2023 Thin prep Papanicolaou smear with manual screening 20 U/L 15-37 [facility] Thin prep Papanicolaou smear with manual screening 5 5-15 [facility] Whole blood hemoglobin A1c/t otal hemoglobin ratio (mass fraction)Ordered By: Jt Membreno on 04-01-2023 HbA1c (Bld) [Mass fraction] 5.7 % 3.8-5.6 [facility] Comment on above: Normal < 5.7 % Predi abetic 5.7 - 6.4 % Diabetic >or= 6.5 % Please note range changes. INR in Blood by Coagulation assayOrdered By: Jt Bird on 03-10-2023 INR Coag (Bld) [Relative time] 2.3 {INR} [facility] Laboratory - CoagulationOrde red By: Jt Bird on 03-10-2023 PT Coag (PPP) [Time] 25.2 s 11.7-14.9 [facility] INR in Blood by Coagulation assayOrdered By: Jt Bird on 02-10-2023 INR Coag (Bld) [Relative time] 2.2 {INR} [facility] Laboratory - CoagulationOrde red By: Jt Bird on 02-10-2023 PT Coag (PPP) [Time] 24.6 s 11.7-14.9 [facility] INR in Blood by Coagulation assayOrdered By: Dr. Harris on 01-09-2023 INR Coag (Bld) [Relative time] 2.0 {INR} [facility] Laboratory - CoagulationOrde red By: Dr. Harris on 01-09-2023 PT Coag (PPP) [Time] 22.7 s 11.7-14.9 [facility] INR in Blood by Coagulation assayOrdered By: Dr. Harris on 12-12-2022 INR Coag (Bld) [Relative time] 2.7 {INR} [facility] Laboratory - CoagulationOrde red By: Dr. Harris on 12-12-2022 PT Coag (PPP) [Time] 28.0 s 11.7-14.9 [facility] Basophil percentageOrdered B y: Dr. Membreno on 12-03-2022 Basophil percentage 0 SEEN /hpf 0-5 [facility] Bilirubin [Mass/Vol] 0.30 mg/dL 0.20-1.00 [facility] Comment on above: For patients on eltr ombopag therapy, use of Dimension [place] TBIL is not recommended. Chloride [Moles/Vol] 106 mmol/L 98-107 [facility] Glucose [Mass/Vol] 95 mg/dL 74-106 [facility] Potassium [Moles/Vol] 3.8 mmol/L 3.5-5.1 [facility] Protein [Mass/Vol] 6.7 g/dL 6.4-8.2 [facility] Sodium [Moles/Vol] 141 mmol/L 136-145 [facility] Bilirubin Test strip Ql (U)O rdered By: Dr. Membreno on 12-03-2022 Bilirubin Ql (U) Negative Negative [facility] Ketones Test strip Ql (U)Ord ered By: Dr. Membreno on 12-03-2022 Ketones Ql (U) Negative Negative [facility] Laboratory - Chemistry and C hemistry - challengeOrdered By: Dr. Membreno on 12-03-2022 ALP [Catalytic activity/Vol] 58 U/L 45-117 [facility] ALT [Catalytic activity/Vol] 39 U/L 16-61 [facility] CO2 [Moles/Vol] 29.0 mmol/L 21.0-32.0 [facility] Globulin (S) [Mass/Vol] 3.2 g/dL 2.2-4.2 [facility] Urea nitrogen/Creatinine [Mass ratio] 22.0 mg/mg 10-20 [facility] Mucus LM Ql (Urine sed)Order ed By: Dr. Membreno on 12-03-2022 Mucus Ql (Urine sed) 0 SEEN /hpf [facility] Nitrite Test strip Ql (U)Ord ered By: Dr. Membreno on 12-03-2022 Nitrite Ql (U) Negative Negative [facility] No Panel InformationOrdered By: Dr. Membreno on 12-03-2022 Estimated GFR (MDRD) Amer 97 mL/min >60 [facility] Comment on above: GFR Calc Estimated GFR (MDRD) Non-Af Amer 80 mL/min >60 [facility] Comment on above: Non- GFR Calc Prostate Specific Antigen Screen 1.49 ng/mL 0.00-4.00 [facility] Comment on above: This test was perfor med using the TPSA assay method for theFSI chemistry system. Values obtained with differentassay methods cannot be used interchangably.When changing PSA assays in the course of monitoring apatient, additional sequential testing should be carriedout to confirm baseline values. Protein Test strip Ql (U)Ord ered By: Dr. Membreno on 12-03-2022 Protein Ql (U) Negative Negative [facility] Serum or plasma albumin wilner urement (mass/volume)Ordered By: Dr. Membreno on 12-03-2022 Albumin [Mass/Vol] 3.5 g/dL 3.2-5.0 [facility] Serum or plasma albumin/glob ulin mass ratioOrdered By: Dr. Membreno on 12-03-2022 Albumin/Globulin [Mass ratio] 1.1 {ratio} 0.9-2.4 [facility] Serum or plasma calcium wilner urement (mass/volume)Ordered By: Dr. Membreno on 12-03-2022 Calcium [Mass/Vol] 8.4 mg/dL 8.5-10.1 [facility] Serum or plasma creatinine m easurement (mass/volume)Ordered By: Dr. Membreno on 12-03-2022 Creatinine [Mass/Vol] 1.00 mg/dL 0.70-1.30 [facility] Comment on above: The validity of the calculated GFR & GFRAA in patients over 70 years has not been determined. Clinical correlation is essential. Serum or plasma urea nitroge n measurement (mass/volume)Ordered By: Dr. Membreno on 12-03-2022 Urea nitrogen [Mass/Vol] 22 mg/dL 7-18 [facility] Squamous epithelial cells de tection in urine sediment by light microscopyOrdered By: Dr. Membreno on 12-03-2022 Epithelial cells.squamous LM Ql (Urine sed) 0 SEEN /hpf 0-5 [facility] Thin prep Papanicolaou smear with manual screeningOrdered By: Dr. Membreno on 12-03-2022 Thin prep Papanicolaou smear with manual screening 23 U/L 15-37 [facility] Thin prep Papanicolaou smear with manual screening 6 5-15 [facility] Urine blood detectionOrdered By: Dr. Membreno on 12-03-2022 RBC Ql (U) Negative Negative [facility] RBC Ql (U) 0 SEEN /hpf 0-5 [facility] Urine clarityOrdered By: Dr. Membreno on 12-03-2022 Clarity (U) Clear Clear [facility] Urine color determinationOrd ered By: Dr. Membreno on 12-03-2022 Color (U) Yellow Yellow [facility] Urine glucose detectionOrder ed By: Dr. Membreno on 12-03-2022 Glucose Ql (U) Normal mg/dl Normal [facility] Urine leukocyte esterase det ection by dipstickOrdered By: Dr. Membreno on 12-03-2022 Leukocyte esterase Test strip Ql (U) Negative Negative [facility] Urine pHOrdered By: Dr. Eliseo jimenez on 12-03-2022 pH (U) 5.0 [pH] 5.0 - 8.0 [facility] Urine sediment bacteria coun t by microscopy (number/high power field)Ordered By: Dr. Membreno on 12-03-2022 Bacteria LM.HPF (Urine sed) [#/Area] 0 /[HPF] None Seen [facility] Urine specific gravity measu rementOrdered By: Dr. Membreno on 12-03-2022 Specific gravity (U) [Rel density] 1.020 1.002-1.030 [facility] Urobilinogen Auto test strip Ql (U)Ordered By: Dr. Membreno on 12-03-2022 Urobilinogen Ql (U) Normal mg/dl Normal [facility] Absolute lymphocyte countOrd ered By: Dr. Membreno on 11-28-2022 Lymphocytes Auto (Unsp spec) [#/Vol] 1.04 10*3/uL 0.83-4.51 [facility] Basophil percentageOrdered B y: Dr. Membreno on 11-28-2022 Basophils/100 WBC (Bld) 0.8 % 0-1 [facility] Bilirubin [Mass/Vol] 0.20 mg/dL 0.20-1.00 [facility] Comment on above: For patients on eltr ombopag therapy, use of Dimension [place] TBIL is not recommended. Chloride [Moles/Vol] 107 mmol/L 98-107 [facility] Cholesterol [Mass/Vol] 94 mg/dL <200 [facility] Comment on above: <200 mg/dL Desirable 200-240 mg/dL Borderline >240 mg/dL High Risk Eosinophils/100 WBC (Bld) 5.0 % 0-5 [facility] Glucose [Mass/Vol] 101 mg/dL 74-106 [facility] Comment on above: Fasting Glucose resu lt from 100 to 125 mg/dL suggests IMPAIRED HOMEOSTASIS per A.D.A. criteria. Neutrophils (Bld) [#/Vol] 3.2 10*3/uL 2.0-7.7 [facility] Neutrophils/100 WBC (Bld) 60.4 % 47-70 [facility] Potassium [Moles/Vol] 3.2 mmol/L 3.5-5.1 [facility] Protein [Mass/Vol] 6.4 g/dL 6.4-8.2 [facility] Sodium [Moles/Vol] 141 mmol/L 136-145 [facility] Triglyceride [Mass/Vol] 81 mg/dL <199 [facility] Comment on above: The drugs N-Acetylcy steine and Metamizole may falsely depress this assay.Serum Triglycerides Reference Interval Normal <150 mg/dL Borderline high 150 - 199 mg/dL High 200 - 499 mg/dL Very High > or = 500 mg/dL WBC (Bld) [#/Vol] 5.2 10*3/uL 4.4-11.0 [facility] Blood erythrocytes count (nu mber/volume)Ordered By: Dr. Membreno on 11-28-2022 RBC (Bld) [#/Vol] 4.46 10*6/uL 4.6-6.2 [facility] Blood hemoglobin measurement (mass/volume)Ordered By: Dr. Membreno on 11-28-2022 Hemoglobin (Bld) [Mass/Vol] 13.9 g/dL 13.0-16.5 [facility] Blood lymphocytes/100 leukoc ytesOrdered By: Dr. Membreno on 11-28-2022 Lymphocytes/100 WBC (Bld) 20.0 % 19-41 [facility] Blood monocytes/100 leukocyt esOrdered By: Dr. Membreno on 11-28-2022 Monocytes/100 WBC (Bld) 13.6 % 0-10 [facility] Blood platelet mean volumeOr dered By: Dr. Membreno on 11-28-2022 Platelet mean volume (Bld) [Entitic vol] 9.0 fL 6.2-12.0 [facility] Determination of erythrocyte mean corpuscular volume (MCV)Ordered By: Dr. Membreno on 11-28-2022 MCV (RBC) [Entitic vol] 92.8 fL 80-94 [facility] Hematocrit Auto (Bld) [Volum e fraction]Ordered By: Dr. Membreno on 11-28-2022 Hematocrit (Bld) [Volume fraction] 41.4 % 40-54 [facility] INR in Blood by Coagulation assayOrdered By: Dr. Harris on 11-28-2022 INR Coag (Bld) [Relative time] 3.2 {INR} [facility] Laboratory - Chemistry and C hemistry - challengeOrdered By: Dr. Membreno on 11-28-2022 ALP [Catalytic activity/Vol] 59 U/L 45-117 [facility] ALT [Catalytic activity/Vol] 77 U/L 16-61 [facility] CO2 [Moles/Vol] 24.0 mmol/L 21.0-32.0 [facility] Globulin (S) [Mass/Vol] 3.0 g/dL 2.2-4.2 [facility] Magnesium [Mass/Vol] 2.2 mg/dL 1.6-2.6 [facility] Urea nitrogen/Creatinine [Mass ratio] 23.4 mg/mg 10-20 [facility] Laboratory - CoagulationOrde red By: Dr. Harris on 11-28-2022 PT Coag (PPP) [Time] 32.2 s 11.7-14.9 [facility] Laboratory - Hematology and Cell countsOrdered By: Dr. Membreno on 11-28-2022 Erythrocyte distribution width (RBC) [Entitic vol] 43.2 fL 35.1-43.9 [facility] Erythrocyte distribution width (RBC) [Ratio] 12.7 % 11.6-14.6 [facility] Immature granulocytes/100 WBC (Bld) 0.200 % 0.0-0.9 [facility] Comment on above: IG% - Immature Granu locytes (promyelocytes, myelocytes and metamyelocytes) > 1% indicates that a LEFT SHIFT is Present. MCH (RBC) [Entitic mass] 31.2 pg 27.0-32.0 [facility] Nucleated RBC/100 WBC (Bld) [Ratio] 0 % 0-5 [facility] MCHC Auto (RBC) [Mass/Vol]Or dered By: Dr. Membreno on 11-28-2022 MCHC (RBC) [Mass/Vol] 33.6 g/dL 32-36 [facility] No Panel InformationOrdered By: Dr. Membreno on 11-28-2022 Estimated GFR (MDRD) Amer 116 mL/min >60 [facility] Comment on above: GFR Calc Estimated GFR (MDRD) Non-Af Amer 96 mL/min >60 [facility] Comment on above: Non- GFR Calc Thyroid Stimulating Hormone (TSH) 1.42 uIU/mL 0.358-3.74 [facility] Vitamin D 25-Hydroxy 50.5 ng/mL [facility] Comment on above: Vitamin D 25(OH) Sta tus Range Deficiency <20 ng/mL (50nmol/L) Insufficiency 20 - 30 ng/mL (50 - 75 nmol/L) Sufficiency 30 - 100 ng/mL (75 - 250 nmol/L) Toxicity >100 ng/mL (>250 nmol/L) Platelets bldOrdered By: Dr. Membreno on 11-28-2022 Platelets (Bld) [#/Vol] 245 10*3/uL 150-450 [facility] Serum or plasma albumin wilner urement (mass/volume)Ordered By: Dr. Membreno on 11-28-2022 Albumin [Mass/Vol] 3.4 g/dL 3.2-5.0 [facility] Serum or plasma albumin/glob ulin mass ratioOrdered By: Dr. Membreno on 11-28-2022 Albumin/Globulin [Mass ratio] 1.1 {ratio} 0.9-2.4 [facility] Serum or plasma calcium wilner urement (mass/volume)Ordered By: Dr. Membreno on 11-28-2022 Calcium [Mass/Vol] 8.5 mg/dL 8.5-10.1 [facility] Serum or plasma cholesterol in HDL measurement (mass/volume)Ordered By: Dr. Membreno on 11-28-2022 Cholesterol in HDL [Mass/Vol] 29 mg/dL >40 [facility] Comment on above: The drugs N-Acetylcy steine and Metamizole may falsely depress this assay. Reference Range HDL <40 mg/dL Low HDL Cholesterol HDL >or= 60 mg/dL High HDL Cholesterol Serum or plasma cholesterol in VLDL measurement (mass/volume)Ordered By: Dr. Membreno on 11-28-2022 Cholesterol in VLDL [Mass/Vol] 16 mg/dL 5-40 [facility] Serum or plasma creatinine m easurement (mass/volume)Ordered By: Dr. Membreno on 11-28-2022 Creatinine [Mass/Vol] 0.86 mg/dL 0.70-1.30 [facility] Comment on above: The validity of the calculated GFR & GFRAA in patients over 70 years has not been determined. Clinical correlation is essential. Serum or plasma low density lipoprotein (LDL) cholesterol measurement (mass/volume)Ordered By: Dr. Membreno on 11-28-2022 Cholesterol in LDL [Mass/Vol] 49 mg/dL 0-130 [facility] Serum or plasma urea nitroge n measurement (mass/volume)Ordered By: Dr. Membreno on 11-28-2022 Urea nitrogen [Mass/Vol] 20 mg/dL 7-18 [facility] Thin prep Papanicolaou smear with manual screeningOrdered By: Dr. Membreno on 11-28-2022 Thin prep Papanicolaou smear with manual screening 48 U/L 15-37 [facility] Thin prep Papanicolaou smear with manual screening 10 5-15 [facility] Whole blood hemoglobin A1c/t otal hemoglobin ratio (mass fraction)Ordered By: Dr. Membreno on 11-28-2022 HbA1c (Bld) [Mass fraction] 5.5 % 3.8-5.6 [facility] Comment on above: Normal < 5.7 % Predi abetic 5.7 - 6.4 % Diabetic >or= 6.5 % Please note range changes. Basophil percentageOrdered B y: Hanna Carlos on 11-25-2022 Amylase [Catalytic activity/Vol] 59 U/L 25-115 [facility] Bilirubin [Mass/Vol] 0.40 mg/dL 0.20-1.00 [facility] Comment on above: For patients on eltr ombopag therapy, use of Dimension [place] TBIL is not recommended. Chloride [Moles/Vol] 110 mmol/L 98-107 [facility] Glucose [Mass/Vol] 96 mg/dL 74-106 [facility] Potassium [Moles/Vol] 3.5 mmol/L 3.5-5.1 [facility] Protein [Mass/Vol] 7.0 g/dL 6.4-8.2 [facility] Sodium [Moles/Vol] 140 mmol/L 136-145 [facility] WBC (Bld) [#/Vol] 6.1 10*3/uL 4.4-11.0 [facility] Blood erythrocytes count (nu mber/volume)Ordered By: Hanna Carlos on 11-25-2022 RBC (Bld) [#/Vol] 4.80 10*6/uL 4.6-6.2 [facility] Blood hemoglobin measurement (mass/volume)Ordered By: Hanan Carlos on 11-25-2022 Hemoglobin (Bld) [Mass/Vol] 15.0 g/dL 13.0-16.5 [facility] Blood platelet mean volumeOr dered By: Hanna Carlos on 11-25-2022 Platelet mean volume (Bld) [Entitic vol] 9.2 fL 6.2-12.0 [facility] Determination of erythrocyte mean corpuscular volume (MCV)Ordered By: Hanna Carlos on 11-25-2022 MCV (RBC) [Entitic vol] 94.6 fL 80-94 [facility] Hematocrit Auto (Bld) [Volum e fraction]Ordered By: Hanna Carlos on 11-25-2022 Hematocrit (Bld) [Volume fraction] 45.4 % 40-54 [facility] Laboratory - Chemistry and C hemistry - challengeOrdered By: Hanna Carlos on 11-25-2022 ALP [Catalytic activity/Vol] 66 U/L 45-117 [facility] ALT [Catalytic activity/Vol] 51 U/L 16-61 [facility] CO2 [Moles/Vol] 21.0 mmol/L 21.0-32.0 [facility] Globulin (S) [Mass/Vol] 3.3 g/dL 2.2-4.2 [facility] Lipase [Catalytic activity/Vol] 166 U/L 73-393 [facility] Urea nitrogen/Creatinine [Mass ratio] 21.0 mg/mg 10-20 [facility] Laboratory - Hematology and Cell countsOrdered By: Hanna Carlos on 11-25-2022 Erythrocyte distribution width (RBC) [Entitic vol] 43.8 fL 35.1-43.9 [facility] Erythrocyte distribution width (RBC) [Ratio] 12.6 % 11.6-14.6 [facility] MCH (RBC) [Entitic mass] 31.3 pg 27.0-32.0 [facility] MCHC Auto (RBC) [Mass/Vol]Or dered By: Hanna Carlos on 11-25-2022 MCHC (RBC) [Mass/Vol] 33.0 g/dL 32-36 [facility] No Panel InformationOrdered By: Hanna Carlos on 11-25-2022 Estimated GFR (MDRD) Amer 109 mL/min >60 [facility] Comment on above: GFR Calc Estimated GFR (MDRD) Non-Af Amer 90 mL/min >60 [facility] Comment on above: Non- GFR Calc Platelets bldOrdered By: Justin Carlos on 11-25-2022 Platelets (Bld) [#/Vol] 255 10*3/uL 150-450 [facility] Serum or plasma albumin wilner urement (mass/volume)Ordered By: Hanna Carlos on 11-25-2022 Albumin [Mass/Vol] 3.7 g/dL 3.2-5.0 [facility] Serum or plasma albumin/glob ulin mass ratioOrdered By: Hanna Carlos on 11-25-2022 Albumin/Globulin [Mass ratio] 1.1 {ratio} 0.9-2.4 [facility] Serum or plasma calcium wilner urement (mass/volume)Ordered By: Hanna Carlos on 11-25-2022 Calcium [Mass/Vol] 8.8 mg/dL 8.5-10.1 [facility] Serum or plasma creatinine m easurement (mass/volume)Ordered By: Hanna Carlos on 11-25-2022 Creatinine [Mass/Vol] 0.90 mg/dL 0.70-1.30 [facility] Comment on above: The validity of the calculated GFR & GFRAA in patients over 70 years has not been determined. Clinical correlation is essential. Serum or plasma urea nitroge n measurement (mass/volume)Ordered By: Hanna Carlos on 11-25-2022 Urea nitrogen [Mass/Vol] 19 mg/dL 7-18 [facility] Thin prep Papanicolaou smear with manual screeningOrdered By: Hanna Carlos on 11-25-2022 Thin prep Papanicolaou smear with manual screening 45 U/L 15-37 [facility] Thin prep Papanicolaou smear with manual screening 9 5-15 [facility] INR in Blood by Coagulation assayOrdered By: Dr. Harris on 10-29-2022 INR Coag (Bld) [Relative time] 2.6 {INR} [facility] Laboratory - CoagulationOrde red By: Dr. Harris on 10-29-2022 PT Coag (PPP) [Time] 27.7 s 11.7-14.9 [facility] INR in Blood by Coagulation assayOrdered By: Dr. Harris on 09-30-2022 INR Coag (Bld) [Relative time] 2.2 {INR} [facility] Laboratory - CoagulationOrde red By: Dr. Harris on 09-30-2022 PT Coag (PPP) [Time] 24.5 s 11.7-14.9 [facility] Absolute lymphocyte countOrd ered By: Dr. Membreno on 08-29-2022 Lymphocytes Auto (Unsp spec) [#/Vol] 1.34 10*3/uL 0.83-4.51 [facility] Basophil percentageOrdered B y: Dr. Membreno on 08-29-2022 Basophils/100 WBC (Bld) 0.8 % 0-1 [facility] Bilirubin [Mass/Vol] 0.30 mg/dL 0.20-1.00 [facility] Comment on above: For patients on eltr ombopag therapy, use of Dimension [place] TBIL is not recommended. Chloride [Moles/Vol] 107 mmol/L 98-107 [facility] Cholesterol [Mass/Vol] 155 mg/dL <200 [facility] Comment on above: <200 mg/dL Desirable 200-240 mg/dL Borderline >240 mg/dL High Risk Eosinophils/100 WBC (Bld) 3.8 % 0-5 [facility] Glucose [Mass/Vol] 109 mg/dL 74-106 [facility] Comment on above: Fasting Glucose resu lt from 100 to 125 mg/dL suggests IMPAIRED HOMEOSTASIS per A.D.A. criteria. Neutrophils (Bld) [#/Vol] 3.9 10*3/uL 2.0-7.7 [facility] Neutrophils/100 WBC (Bld) 61.7 % 47-70 [facility] Potassium [Moles/Vol] 3.6 mmol/L 3.5-5.1 [facility] Protein [Mass/Vol] 6.6 g/dL 6.4-8.2 [facility] Sodium [Moles/Vol] 140 mmol/L 136-145 [facility] Triglyceride [Mass/Vol] 104 mg/dL <199 [facility] Comment on above: The drugs N-Acetylcy steine and Metamizole may falsely depress this assay.Serum Triglycerides Reference Interval Normal <150 mg/dL Borderline high 150 - 199 mg/dL High 200 - 499 mg/dL Very High > or = 500 mg/dL WBC (Bld) [#/Vol] 6.2 10*3/uL 4.4-11.0 [facility] Blood erythrocytes count (nu mber/volume)Ordered By: Dr. Membreno on 08-29-2022 RBC (Bld) [#/Vol] 4.30 10*6/uL 4.6-6.2 [facility] Blood hemoglobin measurement (mass/volume)Ordered By: Dr. Membreno on 08-29-2022 Hemoglobin (Bld) [Mass/Vol] 13.3 g/dL 13.0-16.5 [facility] Blood lymphocytes/100 leukoc ytesOrdered By: Dr. Membreno on 08-29-2022 Lymphocytes/100 WBC (Bld) 21.5 % 19-41 [facility] Blood monocytes/100 leukocyt esOrdered By: Dr. Membreno on 08-29-2022 Monocytes/100 WBC (Bld) 11.7 % 0-10 [facility] Blood platelet mean volumeOr dered By: Dr. Membreno on 08-29-2022 Platelet mean volume (Bld) [Entitic vol] 9.7 fL 6.2-12.0 [facility] Determination of erythrocyte mean corpuscular volume (MCV)Ordered By: Dr. Membreno on 08-29-2022 MCV (RBC) [Entitic vol] 95.3 fL 80-94 [facility] Hematocrit Auto (Bld) [Volum e fraction]Ordered By: Dr. Membreno on 08-29-2022 Hematocrit (Bld) [Volume fraction] 41.0 % 40-54 [facility] INR in Blood by Coagulation assayOrdered By: Dr. Harris on 08-29-2022 INR Coag (Bld) [Relative time] 2.7 {INR} [facility] Laboratory - Chemistry and C hemistry - challengeOrdered By: Dr. Membreno on 08-29-2022 ALP [Catalytic activity/Vol] 61 U/L 45-117 [facility] ALT [Catalytic activity/Vol] 29 U/L 16-61 [facility] CO2 [Moles/Vol] 28.0 mmol/L 21.0-32.0 [facility] Globulin (S) [Mass/Vol] 3.3 g/dL 2.2-4.2 [facility] Magnesium [Mass/Vol] 2.2 mg/dL 1.6-2.6 [facility] Urea nitrogen/Creatinine [Mass ratio] 21.3 mg/mg 10-20 [facility] Laboratory - CoagulationOrde red By: Dr. Harris on 08-29-2022 PT Coag (PPP) [Time] 28.2 s 11.7-14.9 [facility] Laboratory - Hematology and Cell countsOrdered By: Dr. Membreno on 08-29-2022 Erythrocyte distribution width (RBC) [Entitic vol] 44.5 fL 35.1-43.9 [facility] Erythrocyte distribution width (RBC) [Ratio] 12.8 % 11.6-14.6 [facility] Immature granulocytes/100 WBC (Bld) 0.500 % 0.0-0.9 [facility] Comment on above: IG% - Immature Granu locytes (promyelocytes, myelocytes and metamyelocytes) > 1% indicates that a LEFT SHIFT is Present. MCH (RBC) [Entitic mass] 30.9 pg 27.0-32.0 [facility] Nucleated RBC/100 WBC (Bld) [Ratio] 0 % 0-5 [facility] MCHC Auto (RBC) [Mass/Vol]Or dered By: Dr. Membreno on 08-29-2022 MCHC (RBC) [Mass/Vol] 32.4 g/dL 32-36 [facility] No Panel InformationOrdered By: Dr. Membreno on 08-29-2022 Estimated GFR (MDRD) Amer 98 mL/min >60 [facility] Comment on above: GFR Calc Estimated GFR (MDRD) Non-Af Amer 81 mL/min >60 [facility] Comment on above: Non- GFR Calc Thyroid Stimulating Hormone (TSH) 1.94 uIU/mL 0.358-3.74 [facility] Vitamin D 25-Hydroxy 46.3 ng/mL [facility] Comment on above: Vitamin D 25(OH) Sta tus Range Deficiency <20 ng/mL (50nmol/L) Insufficiency 20 - 30 ng/mL (50 - 75 nmol/L) Sufficiency 30 - 100 ng/mL (75 - 250 nmol/L) Toxicity >100 ng/mL (>250 nmol/L) Platelets bldOrdered By: Dr. Membreno on 08-29-2022 Platelets (Bld) [#/Vol] 270 10*3/uL 150-450 [facility] Serum or plasma albumin wilner urement (mass/volume)Ordered By: Dr. Membreno on 08-29-2022 Albumin [Mass/Vol] 3.3 g/dL 3.2-5.0 [facility] Serum or plasma albumin/glob ulin mass ratioOrdered By: Dr. Membreno on 08-29-2022 Albumin/Globulin [Mass ratio] 1.0 {ratio} 0.9-2.4 [facility] Serum or plasma calcium wilner urement (mass/volume)Ordered By: Dr. Membreno on 08-29-2022 Calcium [Mass/Vol] 8.6 mg/dL 8.5-10.1 [facility] Serum or plasma cholesterol in HDL measurement (mass/volume)Ordered By: Dr. Membreno on 08-29-2022 Cholesterol in HDL [Mass/Vol] 38 mg/dL >40 [facility] Comment on above: The drugs N-Acetylcy steine and Metamizole may falsely depress this assay. Reference Range HDL <40 mg/dL Low HDL Cholesterol HDL >or= 60 mg/dL High HDL Cholesterol Serum or plasma cholesterol in VLDL measurement (mass/volume)Ordered By: Dr. Membreno on 08-29-2022 Cholesterol in VLDL [Mass/Vol] 21 mg/dL 5-40 [facility] Serum or plasma creatinine m easurement (mass/volume)Ordered By: Dr. Membreno on 08-29-2022 Creatinine [Mass/Vol] 0.99 mg/dL 0.70-1.30 [facility] Comment on above: The validity of the calculated GFR & GFRAA in patients over 70 years has not been determined. Clinical correlation is essential. Serum or plasma low density lipoprotein (LDL) cholesterol measurement (mass/volume)Ordered By: Dr. Membreno on 08-29-2022 Cholesterol in LDL [Mass/Vol] 96 mg/dL 0-130 [facility] Serum or plasma urea nitroge n measurement (mass/volume)Ordered By: Dr. Membreno on 08-29-2022 Urea nitrogen [Mass/Vol] 21 mg/dL 7-18 [facility] Thin prep Papanicolaou smear with manual screeningOrdered By: Dr. Membreno on 08-29-2022 Thin prep Papanicolaou smear with manual screening 16 U/L 15-37 [facility] Thin prep Papanicolaou smear with manual screening 5 5-15 [facility] Whole blood hemoglobin A1c/t otal hemoglobin ratio (mass fraction)Ordered By: Dr. Membreno on 08-29-2022 HbA1c (Bld) [Mass fraction] 6.1 % 3.8-5.6 [facility] Comment on above: Normal < 5.7 % Predi abetic 5.7 - 6.4 % Diabetic >or= 6.5 % Please note range changes. INR in Blood by Coagulation assayOrdered By: Dr. Harris on 07-23-2022 INR Coag (Bld) [Relative time] 2.3 {INR} [facility] Laboratory - CoagulationOrde red By: Dr. Harris on 07-23-2022 PT Coag (PPP) [Time] 25.3 s 11.7-14.9 [facility] INR in Blood by Coagulation assayOrdered By: Dr. Harris on 06-24-2022 INR Coag (Bld) [Relative time] 2.6 {INR} [facility] Laboratory - CoagulationOrde red By: Dr. Harris on 06-24-2022 PT Coag (PPP) [Time] 27.1 s 11.7-14.9 [facility] INR in Blood by Coagulation assayon 05-28-2022 INR Coag (Bld) [Relative time] 2.5 {INR} [facility] Work Phone: Laboratory - Coagulationon 0 05-28-2022 PT Coag (PPP) [Time] 27.0 s 11.7-14.9 [facility] Work Phone: INR in Blood by Coagulation assayon 04-28-2022 INR Coag (Bld) [Relative time] 2.7 {INR} [facility] Work Phone: Laboratory - Coagulationon 0 04-28-2022 PT Coag (PPP) [Time] 28.2 s 11.7-14.9 [facility] Work Phone: Absolute lymphocyte counton 03-21-2022 Lymphocytes Auto (Unsp spec) [#/Vol] 1.31 10*3/uL 0.83-4.51 [facility] Work Phone: Basophil percentageon 2021 Basophils/100 WBC (Bld) 1.0 % 0-1 [facility] Work Phone: Bilirubin [Mass/Vol] 0.20 mg/dL 0.20-1.00 [facility] Work Phone: Comment on above: For patients on eltr ombopag therapy, use of Dimension [place] TBIL is not recommended. Chloride [Moles/Vol] 110 mmol/L 98-107 [facility] Work Phone: Cholesterol [Mass/Vol] 170 mg/dL <200 [facility] Work Phone: Comment on above: <200 mg/dL Desirable 200-240 mg/dL Borderline >240 mg/dL High Risk Eosinophils/100 WBC (Bld) 7.5 % 0-5 [facility] Work Phone: Glucose [Mass/Vol] 117 mg/dL 74-106 [facility] Work Phone: Comment on above: Fasting Glucose resu lt from 100 to 125 mg/dL suggests IMPAIRED HOMEOSTASIS per A.D.A. criteria. Neutrophils (Bld) [#/Vol] 3.7 10*3/uL 2.0-7.7 [facility] Work Phone: [phone] Neutrophils/100 WBC (Bld) 59.3 % 47-70 [facility] Work Phone: Potassium [Moles/Vol] 3.9 mmol/L 3.5-5.1 [facility] Work Phone: Comment on above: Slight Hemolysis, Re sult may be falsely increased. Protein [Mass/Vol] 6.8 g/dL 6.4-8.2 [facility] Work Phone: Sodium [Moles/Vol] 141 mmol/L 136-145 [facility] Work Phone: Triglyceride [Mass/Vol] 242 mg/dL <199 [facility] Work Phone: Comment on above: The drugs N-Acetylcy steine and Metamizole may falsely depress this assay.Serum Triglycerides Reference Interval Normal <150 mg/dL Borderline high 150 - 199 mg/dL High 200 - 499 mg/dL Very High > or = 500 mg/dL WBC (Bld) [#/Vol] 6.2 10*3/uL 4.4-11.0 [facility] Work Phone: Blood erythrocytes count (nu mber/volume)on 03-21-2022 RBC (Bld) [#/Vol] 4.33 10*6/uL 4.6-6.2 [facility] Work Phone: Blood hemoglobin measurement (mass/volume)on 03-21-2022 Hemoglobin (Bld) [Mass/Vol] 13.7 g/dL 13.0-16.5 [facility] Work Phone: Blood lymphocytes/100 leukoc yteson 03-21-2022 Lymphocytes/100 WBC (Bld) 21.3 % 19-41 [facility] Work Phone: Blood monocytes/100 leukocyt eson 03-21-2022 Monocytes/100 WBC (Bld) 10.4 % 0-10 [facility] Work Phone: Blood platelet mean volumeon 03-21-2022 Platelet mean volume (Bld) [Entitic vol] 10.0 fL 6.2-12.0 [facility] Work Phone: Determination of erythrocyte mean corpuscular volume (MCV)on 03-21-2022 MCV (RBC) [Entitic vol] 97.2 fL 80-94 [facility] Work Phone: Hematocrit Auto (Bld) [Volum e fraction]on 03-21-2022 Hematocrit (Bld) [Volume fraction] 42.1 % 40-54 [facility] Work Phone: INR in Blood by Coagulation assayon 03-21-2022 INR Coag (Bld) [Relative time] 2.4 {INR} [facility] Work Phone: Laboratory - Chemistry and C hemistry - challengeon 03-21-2022 ALP [Catalytic activity/Vol] 60 U/L 45-117 [facility] Work Phone: ALT [Catalytic activity/Vol] 28 U/L 16-61 [facility] Work Phone: CO2 [Moles/Vol] 26.0 mmol/L 21.0-32.0 [facility] Work Phone: Globulin (S) [Mass/Vol] 3.4 g/dL 2.2-4.2 [facility] Work Phone: Magnesium [Mass/Vol] 2.3 mg/dL 1.6-2.6 [facility] Work Phone: Comment on above: Slight Hemolysis, Re sult may be falsely increased. Urea nitrogen/Creatinine [Mass ratio] 18.8 mg/mg 10-20 [facility] Work Phone: Laboratory - Coagulationon 0 03-21-2022 PT Coag (PPP) [Time] 25.4 s 11.7-14.9 [facility] Work Phone: Laboratory - Hematology and Cell countson 03-21-2022 Erythrocyte distribution width (RBC) [Entitic vol] 46.1 fL 35.1-43.9 [facility] Work Phone: Erythrocyte distribution width (RBC) [Ratio] 12.9 % 11.6-14.6 [facility] Work Phone: Immature granulocytes/100 WBC (Bld) 0.500 % 0.0-0.9 [facility] Work Phone: Comment on above: IG% - Immature Granu locytes (promyelocytes, myelocytes and metamyelocytes) > 1% indicates that a LEFT SHIFT is Present. MCH (RBC) [Entitic mass] 31.6 pg 27.0-32.0 [facility] Work Phone: Nucleated RBC/100 WBC (Bld) [Ratio] 0 % 0-5 [facility] Work Phone: MCHC Auto (RBC) [Mass/Vol]on 03-21-2022 MCHC (RBC) [Mass/Vol] 32.5 g/dL 32-36 [facility] Work Phone: No Panel Informationon 03-21 Estimated GFR (MDRD) Amer 81 mL/min >60 [facility] Work Phone: Comment on above: GFR Calc Estimated GFR (MDRD) Non-Af Amer 67 mL/min >60 [facility] Work Phone: Comment on above: Non- GFR Calc Vitamin D 25-Hydroxy 49.8 ng/mL [facility] Work Phone: Comment on above: Vitamin D 25(OH) Sta tus Range Deficiency <20 ng/mL (50nmol/L) Insufficiency 20 - 30 ng/mL (50 - 75 nmol/L) Sufficiency 30 - 100 ng/mL (75 - 250 nmol/L) Toxicity >100 ng/mL (>250 nmol/L) Platelets bldon 03-21-2022 Platelets (Bld) [#/Vol] 226 10*3/uL 150-450 [facility] Work Phone: Serum or plasma albumin wilner urement (mass/volume)on 03-21-2022 Albumin [Mass/Vol] 3.4 g/dL 3.2-5.0 [facility] Work Phone: Serum or plasma albumin/glob ulin mass ratioon 03-21-2022 Albumin/Globulin [Mass ratio] 1.0 {ratio} 0.9-2.4 [facility] Work Phone: Serum or plasma calcium wilner urement (mass/volume)on 03-21-2022 Calcium [Mass/Vol] 8.7 mg/dL 8.5-10.1 [facility] Work Phone: Serum or plasma cholesterol in HDL measurement (mass/volume)on 03-21-2022 Cholesterol in HDL [Mass/Vol] 33 mg/dL >40 [facility] Work Phone: Comment on above: The drugs N-Acetylcy steine and Metamizole may falsely depress this assay. Reference Range HDL <40 mg/dL Low HDL Cholesterol HDL >or= 60 mg/dL High HDL Cholesterol Serum or plasma cholesterol in VLDL measurement (mass/volume)on 03-21-2022 Cholesterol in VLDL [Mass/Vol] 48 mg/dL 5-40 [facility] Work Phone: Serum or plasma creatinine m easurement (mass/volume)on 03-21-2022 Creatinine [Mass/Vol] 1.17 mg/dL 0.70-1.30 [facility] Work Phone: Comment on above: The validity of the calculated GFR & GFRAA in patients over 70 years has not been determined. Clinical correlation is essential. Serum or plasma low density lipoprotein (LDL) cholesterol measurement (mass/volume)on 03-21-2022 Cholesterol in LDL [Mass/Vol] 89 mg/dL 0-130 [facility] Work Phone: Serum or plasma urea nitroge n measurement (mass/volume)on 03-21-2022 Urea nitrogen [Mass/Vol] 22 mg/dL 7-18 [facility] Work Phone: Thin prep Papanicolaou smear with manual screeningon 03-21-2022 Thin prep Papanicolaou smear with manual screening 24 U/L 15-37 [facility] Work Phone: Comment on above: Slight Hemolysis, Re sult may be falsely increased. Thin prep Papanicolaou smear with manual screening 5 5-15 [facility] Work Phone: Whole blood hemoglobin A1c/t otal hemoglobin ratio (mass fraction)on 03-21-2022 HbA1c (Bld) [Mass fraction] 5.8 % 3.8-5.6 [facility] Work Phone: Comment on above: Normal < 5.7 % Predi abetic 5.7 - 6.4 % Diabetic >or= 6.5 % Please note range changes. INR in Blood by Coagulation assayon 02-19-2022 INR Coag (Bld) [Relative time] 2.1 {INR} [facility] Work Phone: Laboratory - Coagulationon 0 02-19-2022 PT Coag (PPP) [Time] 23.5 s 11.7-14.9 [facility] Work Phone: Absolute lymphocyte counton 01-21-2022 Lymphocytes Auto (Unsp spec) [#/Vol] 1.29 10*3/uL 0.83-4.51 [facility] Work Phone: Basophil percentageon 2021 Basophils/100 WBC (Bld) 0.9 % 0-1 [facility] Work Phone: Chloride [Moles/Vol] 107 mmol/L 98-107 [facility] Work Phone: Eosinophils/100 WBC (Bld) 3.8 % 0-5 [facility] Work Phone: Glucose [Mass/Vol] 124 mg/dL 74-106 [facility] Work Phone: Comment on above: Fasting Glucose resu lt from 100 to 125 mg/dL suggests IMPAIRED HOMEOSTASIS per A.D.A. criteria. Neutrophils (Bld) [#/Vol] 4.5 10*3/uL 2.0-7.7 [facility] Work Phone: Neutrophils/100 WBC (Bld) 66.6 % 47-70 [facility] Work Phone: [phone] Potassium [Moles/Vol] 3.7 mmol/L 3.5-5.1 [facility] Work Phone: Comment on above: Slight Hemolysis, Re sult may be falsely increased. Sodium [Moles/Vol] 143 mmol/L 136-145 [facility] Work Phone: WBC (Bld) [#/Vol] 6.8 10*3/uL 4.4-11.0 [facility] Work Phone: Blood erythrocytes count (nu mber/volume)on 01-21-2022 RBC (Bld) [#/Vol] 4.43 10*6/uL 4.6-6.2 [facility] Work Phone: Blood hemoglobin measurement (mass/volume)on 01-21-2022 Hemoglobin (Bld) [Mass/Vol] 14.1 g/dL 13.0-16.5 [facility] Work Phone: [phone] Blood lymphocytes/100 leukoc yteson 01-21-2022 Lymphocytes/100 WBC (Bld) 19.0 % 19-41 [facility] Work Phone: Blood monocytes/100 leukocyt eson 01-21-2022 Monocytes/100 WBC (Bld) 9.4 % 0-10 [facility] Work Phone: Blood platelet mean volumeon 01-21-2022 Platelet mean volume (Bld) [Entitic vol] 9.8 fL 6.2-12.0 [facility] Work Phone: Determination of erythrocyte mean corpuscular volume (MCV)on 01-21-2022 MCV (RBC) [Entitic vol] 96.4 fL 80-94 [facility] Work Phone: Hematocrit Auto (Bld) [Volum e fraction]on 01-21-2022 Hematocrit (Bld) [Volume fraction] 42.7 % 40-54 [facility] Work Phone: INR in Blood by Coagulation assayon 01-21-2022 INR Coag (Bld) [Relative time] 2.2 {INR} [facility] Work Phone: Laboratory - Chemistry and C hemistry - challengeon 01-21-2022 CO2 [Moles/Vol] 28.0 mmol/L 21.0-32.0 [facility] Work Phone: Urea nitrogen/Creatinine [Mass ratio] 21.3 mg/mg 10-20 [facility] Work Phone: Laboratory - Coagulationon 0 01-21-2022 PT Coag (PPP) [Time] 24.3 s 11.7-14.9 [facility] Work Phone: Laboratory - Hematology and Cell countson 01-21-2022 Erythrocyte distribution width (RBC) [Entitic vol] 44.5 fL 35.1-43.9 [facility] Work Phone: Erythrocyte distribution width (RBC) [Ratio] 12.5 % 11.6-14.6 [facility] Work Phone: Immature granulocytes/100 WBC (Bld) 0.300 % 0.0-0.9 [facility] Work Phone: Comment on above: IG% - Immature Granu locytes (promyelocytes, myelocytes and metamyelocytes) > 1% indicates that a LEFT SHIFT is Present. MCH (RBC) [Entitic mass] 31.8 pg 27.0-32.0 [facility] Work Phone: Nucleated RBC/100 WBC (Bld) [Ratio] 0 % 0-5 [facility] Work Phone: MCHC Auto (RBC) [Mass/Vol]on 01-21-2022 MCHC (RBC) [Mass/Vol] 33.0 g/dL 32-36 [facility] Work Phone: No Panel Informationon 01-21 Troponin I High Sensitivity 8 pg/mL 3.0-78.0 [facility] Work Phone: Comment on above: Please Note: New Geeta t Units and Gender Specific Reference Ranges. For more information see Policy Stat Procedure [place] High Sensitivity Troponin (TNIH) and attachments. Estimated Creatinine Clearance Calc 74.56 ml/min [facility] Work Phone: Estimated GFR (MDRD) Amer 89 mL/min >60 [facility] Work Phone: Comment on above: GFR Calc Estimated GFR (MDRD) Non-Af Amer 73 mL/min >60 [facility] Work Phone: Comment on above: Non- GFR Calc Platelets bldon 01-21-2022 Platelets (Bld) [#/Vol] 221 10*3/uL 150-450 [facility] Work Phone: Serum or plasma calcium wilner urement (mass/volume)on 01-21-2022 Calcium [Mass/Vol] 9.0 mg/dL 8.5-10.1 [facility] Work Phone: Serum or plasma creatinine m easurement (mass/volume)on 01-21-2022 Creatinine [Mass/Vol] 1.08 mg/dL 0.70-1.30 [facility] Work Phone: Comment on above: The validity of the calculated GFR & GFRAA in patients over 70 years has not been determined. Clinical correlation is essential. Serum or plasma urea nitroge n measurement (mass/volume)on 01-21-2022 Urea nitrogen [Mass/Vol] 23 mg/dL 7-18 [facility] Work Phone: Thin prep Papanicolaou smear with manual screeningon 01-21-2022 Thin prep Papanicolaou smear with manual screening 8 5-15 [facility] Work Phone: INR in Blood by Coagulation assayon 01-08-2022 INR Coag (Bld) [Relative time] 1.9 {INR} [facility] Work Phone: Laboratory - Coagulationon 0 01-08-2022 PT Coag (PPP) [Time] 21.4 s 11.7-14.9 [facility] Work Phone: Absolute lymphocyte counton 12-18-2021 Lymphocytes Auto (Unsp spec) [#/Vol] 1.67 10*3/uL 0.83-4.51 [facility] Work Phone: Basophil percentageon 2021 Basophils/100 WBC (Bld) 0.9 % 0-1 [facility] Work Phone: Bilirubin [Mass/Vol] 0.30 mg/dL 0.20-1.00 [facility] Work Phone: Comment on above: For patients on eltr ombopag therapy, use of Dimension [place] TBIL is not recommended. Chloride [Moles/Vol] 108 mmol/L 98-107 [facility] Work Phone: Cholesterol [Mass/Vol] 160 mg/dL <200 [facility] Work Phone: Comment on above: <200 mg/dL Desirable 200-240 mg/dL Borderline >240 mg/dL High Risk Eosinophils/100 WBC (Bld) 5.9 % 0-5 [facility] Work Phone: Glucose [Mass/Vol] 101 mg/dL 74-106 [facility] Work Phone: Comment on above: Fasting Glucose resu lt from 100 to 125 mg/dL suggests IMPAIRED HOMEOSTASIS per A.D.A. criteria. Neutrophils (Bld) [#/Vol] 4.7 10*3/uL 2.0-7.7 [facility] Work Phone: Neutrophils/100 WBC (Bld) 60.9 % 47-70 [facility] Work Phone: Potassium [Moles/Vol] 3.9 mmol/L 3.5-5.1 [facility] Work Phone: Protein [Mass/Vol] 7.1 g/dL 6.4-8.2 [facility] Work Phone: Sodium [Moles/Vol] 138 mmol/L 136-145 [facility] Work Phone: Triglyceride [Mass/Vol] 101 mg/dL <199 [facility] Work Phone: Comment on above: The drugs N-Acetylcy steine and Metamizole may falsely depress this assay.Serum Triglycerides Reference Interval Normal <150 mg/dL Borderline high 150 - 199 mg/dL High 200 - 499 mg/dL Very High > or = 500 mg/dL WBC (Bld) [#/Vol] 7.6 10*3/uL 4.4-11.0 [facility] [place]: Blood erythrocytes count (nu mber/volume)on 12-18-2021 RBC (Bld) [#/Vol] 4.43 10*6/uL 4.6-6.2 [facility] Work Phone: Blood hemoglobin measurement (mass/volume)on 12-18-2021 Hemoglobin (Bld) [Mass/Vol] 13.8 g/dL 13.0-16.5 [facility] Work Phone: Blood lymphocytes/100 leukoc yteson 12-18-2021 Lymphocytes/100 WBC (Bld) 21.9 % 19-41 [facility] Work Phone: Blood monocytes/100 leukocyt eson 12-18-2021 Monocytes/100 WBC (Bld) 10.1 % 0-10 [facility] Work Phone: Blood platelet mean volumeon 12-18-2021 Platelet mean volume (Bld) [Entitic vol] 9.5 fL 6.2-12.0 [facility] Work Phone: Determination of erythrocyte mean corpuscular volume (MCV)on 12-18-2021 MCV (RBC) [Entitic vol] 94.8 fL 80-94 [facility] Work Phone: Hematocrit Auto (Bld) [Volum e fraction]on 12-18-2021 Hematocrit (Bld) [Volume fraction] 42.0 % 40-54 [facility] Work Phone: Laboratory - Chemistry and C hemistry - challengeon 12-18-2021 ALP [Catalytic activity/Vol] 56 U/L 45-117 [facility] Work Phone: ALT [Catalytic activity/Vol] 30 U/L 16-61 [facility] Work Phone: CO2 [Moles/Vol] 26.0 mmol/L 21.0-32.0 [facility] Work Phone: Globulin (S) [Mass/Vol] 3.5 g/dL 2.2-4.2 [facility] Work Phone: Magnesium [Mass/Vol] 2.3 mg/dL 1.6-2.6 [facility] Work Phone: Urea nitrogen/Creatinine [Mass ratio] 26.5 mg/mg 10-20 [facility] Work Phone: Laboratory - Hematology and Cell countson 12-18-2021 Erythrocyte distribution width (RBC) [Entitic vol] 42.0 fL 35.1-43.9 [facility] Work Phone: Erythrocyte distribution width (RBC) [Ratio] 12.1 % 11.6-14.6 [facility] Work Phone: Immature granulocytes/100 WBC (Bld) 0.300 % 0.0-0.9 [facility] Work Phone: Comment on above: IG% - Immature Granu locytes (promyelocytes, myelocytes and metamyelocytes) > 1% indicates that a LEFT SHIFT is Present. MCH (RBC) [Entitic mass] 31.2 pg 27.0-32.0 [facility] Work Phone: Nucleated RBC/100 WBC (Bld) [Ratio] 0 % 0-5 [facility] Work Phone: MCHC Auto (RBC) [Mass/Vol]on 12-18-2021 MCHC (RBC) [Mass/Vol] 32.9 g/dL 32-36 [facility] Work Phone: No Panel Informationon 12-18 Estimated GFR (MDRD) Amer 103 mL/min >60 [facility] Work Phone: Comment on above: GFR Calc Estimated GFR (MDRD) Non-Af Amer 85 mL/min >60 [facility] Work Phone: Comment on above: Non- GFR Calc Thyroid Stimulating Hormone (TSH) 2.04 uIU/mL 0.358-3.74 [facility] Work Phone: Vitamin D 25-Hydroxy 48.7 ng/mL [facility] Work Phone: Comment on above: Vitamin D 25(OH) Sta tus Range Deficiency <20 ng/mL (50nmol/L) Insufficiency 20 - 30 ng/mL (50 - 75 nmol/L) Sufficiency 30 - 100 ng/mL (75 - 250 nmol/L) Toxicity >100 ng/mL (>250 nmol/L) Platelets bldon 12-18-2021 Platelets (Bld) [#/Vol] 278 10*3/uL 150-450 [facility] Work Phone: Serum or plasma albumin wilner urement (mass/volume)on 12-18-2021 Albumin [Mass/Vol] 3.6 g/dL 3.2-5.0 [facility] Work Phone: Serum or plasma albumin/glob ulin mass ratioon 12-18-2021 Albumin/Globulin [Mass ratio] 1.0 {ratio} 0.9-2.4 [facility] Work Phone: Serum or plasma calcium wilner urement (mass/volume)on 12-18-2021 Calcium [Mass/Vol] 8.3 mg/dL 8.5-10.1 [facility] Work Phone: Serum or plasma cholesterol in HDL measurement (mass/volume)on 12-18-2021 Cholesterol in HDL [Mass/Vol] 36 mg/dL >40 [facility] Work Phone: Comment on above: The drugs N-Acetylcy steine and Metamizole may falsely depress this assay. Reference Range HDL <40 mg/dL Low HDL Cholesterol HDL >or= 60 mg/dL High HDL Cholesterol Serum or plasma cholesterol in VLDL measurement (mass/volume)on 12-18-2021 Cholesterol in VLDL [Mass/Vol] 20 mg/dL 5-40 [facility] Work Phone: Serum or plasma creatinine m easurement (mass/volume)on 12-18-2021 Creatinine [Mass/Vol] 0.94 mg/dL 0.70-1.30 [facility] Work Phone: Comment on above: The validity of the calculated GFR & GFRAA in patients over 70 years has not been determined. Clinical correlation is essential. Serum or plasma low density lipoprotein (LDL) cholesterol measurement (mass/volume)on 12-18-2021 Cholesterol in LDL [Mass/Vol] 104 mg/dL 0-130 [facility] Work Phone: Serum or plasma urea nitroge n measurement (mass/volume)on 12-18-2021 Urea nitrogen [Mass/Vol] 25 mg/dL 7-18 [facility] Work Phone: Thin prep Papanicolaou smear with manual screeningon 12-18-2021 Thin prep Papanicolaou smear with manual screening 19 U/L 15-37 [facility] Work Phone: Thin prep Papanicolaou smear with manual screening 4 5-15 [facility] Work Phone: Whole blood hemoglobin A1c/t otal hemoglobin ratio (mass fraction)on 12-18-2021 HbA1c (Bld) [Mass fraction] 5.5 % 3.8-5.6 [facility] Work Phone: Comment on above: Normal < 5.7 % Predi abetic 5.7 - 6.4 % Diabetic >or= 6.5 % Please note range changes. INR in Blood by Coagulation assayon 12-11-2021 INR Coag (Bld) [Relative time] 1.9 {INR} [facility] Work Phone: Laboratory - Coagulationon 0 12-11-2021 PT Coag (PPP) [Time] 21.0 s 11.7-14.9 [facility] Work Phone: INR in Blood by Coagulation assayon 11-04-2021 INR Coag (Bld) [Relative time] 2.0 {INR} [facility] Work Phone: Laboratory - Coagulationon 0 11-04-2021 PT Coag (PPP) [Time] 21.6 s 11.7-14.9 [facility] Work Phone: INR in Blood by Coagulation assayon 10-04-2021 INR Coag (Bld) [Relative time] 2.1 {INR} [facility] Work Phone: Laboratory - Coagulationon 0 10-04-2021 PT Coag (PPP) [Time] 23.1 s 11.7-14.9 [facility] Work Phone: INR in Blood by Coagulation assayon 09-04-2021 INR Coag (Bld) [Relative time] 2.3 {INR} [facility] Work Phone: Laboratory - Coagulationon 1 11-05-2020 PT Coag (PPP) [Time] 24.8 s 11.7-14.9 [facility] Work Phone: CT HEAD OR BRAIN W/O CONTRAS Ton 06-23-2017 CT HEAD OR BRAIN W/O CONTRAST [...] PM Sign Date: 06/23/2017 1:39:51 PM Normal [facility] Vital Signs Date Time Vital Sign Value Performing Clinician Ramses toure 12-19-2024 11:51-0400 Body height 180.[address] Jt Membreno MD Work Phone: [facility] 12-19-2024 11:47-0400 Body mass index (BMI) [Ratio] 41.1 kg/m2 Dr. Jt Membreno MD Work Phone: [facility] 12-19-2024 11:47-0400 Body temperature 98.2 [degF] Dr. Jt Membreno MD Work Phone: [phone] [place] [address] 12-19-2024 11:47-0400 Body weight 133.[address] Jt Membreno MD Work Phone: [phone] [address] 12-19-2024 11:47-0400 Diastolic blood pressure 74 mm[Hg] Dr. Jt Membreno MD Work Phone: [facility] 12-19-2024 11:47-0400 Heart rate 51 /min Dr. Jt Membreno MD Work Phone: [facility] 12-19-2024 11:47-0400 Respiratory rate 18 /min Dr. Jt Membreno MD Work Phone: [phone] [place] [address] 12-19-2024 11:47-0400 SaO2% (BldA) [Mass fraction] 95 % Dr. Jt Membreno MD Work Phone: [facility] 12-19-2024 11:47-0400 Systolic blood pressure 138 mm[Hg] Dr. Jt Membreno MD Work Phone: [facility] 12-08-2024 15:35-0400 Body height 180.[address] Jt Membreno MD Work Phone: [facility] 12-08-2024 15:35-0400 Body mass index (BMI) [Ratio] 41.1 kg/m2 Dr. Jt Membreno MD Work Phone: [facility] 12-08-2024 15:35-0400 Body temperature 97.8 [degF] Dr. Jt Membreno MD Work Phone: [facility] 12-08-2024 15:35-0400 Body weight 133.[address] Jt Membreno MD Work Phone: [facility] 12-08-2024 15:35-0400 Diastolic blood pressure 75 mm[Hg] Dr. Jt Membreno MD Work Phone: [facility] 12-08-2024 15:35-0400 Heart rate 75 /min Dr. Jt Membreno MD Work Phone: [facility] 12-08-2024 15:35-0400 Respiratory rate 18 /min Dr. Jt Membreno MD Work Phone: [facility] 12-08-2024 15:35-0400 SaO2% (BldA) [Mass fraction] 95 % Dr. Jt Membreno MD Work Phone: [facility] 12-08-2024 15:35-0400 Systolic blood pressure 119 mm[Hg] Dr. Jt Membreno MD Work Phone: [facility] 11-04-2024 13:04-0500 Body height 180.3 cm Chetna Solomon RHEUMATOLOGIST - CLINICAL LAB SCIENTIST Work Phone: [facility] 11-04-2024 13:04-0500 Body mass index (BMI) [Ratio] 41.98 kg/m2 Chetna Solomon RHEUMATOLOGIST - CLINICAL LAB SCIENTIST Work Phone: [facility] 11-04-2024 13:04-0500 Body weight 136.53 kg Chetna Solomon RHEUMATOLOGIST - CLINICAL LAB SCIENTIST Work Phone: [facility] 11-04-2024 13:04-0500 Diastolic blood pressure 60 mm[Hg] Chetna Solomon RHEUMATOLOGIST - CLINICAL LAB SCIENTIST Work Phone: [facility] 11-04-2024 13:04-0500 Heart rate 81 /min Chetna Solomon RHEUMATOLOGIST - CLINICAL LAB SCIENTIST Work Phone: [facility] 11-04-2024 13:04-0500 SaO2% (BldA) [Mass fraction] 96 % Chetna Solomon RHEUMATOLOGIST - CLINICAL LAB SCIENTIST Work Phone: [facility] 11-04-2024 13:04-0500 Systolic blood pressure 132 mm[Hg] Chetna Solomon RHEUMATOLOGIST - CLINICAL LAB SCIENTIST Work Phone: [facility] 10-10-2024 10:24-0500 Body height 180.3 cm Lucio Louden RHEUMATOLOGIST.CLINICAL LAB SCIENTIST Work Phone: [facility] 10-10-2024 10:24-0500 Body mass index (BMI) [Ratio] 41.72 kg/m2 Lucio Louden RHEUMATOLOGIST.CLINICAL LAB SCIENTIST Work Phone: [facility] 10-10-2024 10:24-0500 Body weight 135.7 kg Lucio Louden RHEUMATOLOGIST.CLINICAL LAB SCIENTIST Work Phone: [facility] 10-10-2024 10:24-0500 Diastolic blood pressure 72 mm[Hg] Lucio Louden RHEUMATOLOGIST.CLINICAL LAB SCIENTIST Work Phone: [facility] 10-10-2024 10:24-0500 Heart rate 88 /min Lucio Louden RHEUMATOLOGIST.CLINICAL LAB SCIENTIST Work Phone: [facility] 10-10-2024 10:24-0500 SaO2% (BldA) [Mass fraction] 95 % Lucio Louden RHEUMATOLOGIST.CLINICAL LAB SCIENTIST Work Phone: [facility] 10-10-2024 10:24-0500 Systolic blood pressure 139 mm[Hg] Lucio Louden RHEUMATOLOGIST.CLINICAL LAB SCIENTIST Work Phone: [facility] 10-04-2024 15:59-0500 Heart rate 71 /min Meet Carl SHEA Work Phone: [facility] 10-04-2024 15:59-0500 Respiratory rate 18 /min Meet Carl SHEA Work Phone: [facility] 10-04-2024 15:00-0500 Diastolic blood pressure 68 mm[Hg] Meet Carl SHEA Work Phone: [facility] [employer] 10-04-2024 15:00-0500 Systolic blood pressure 120 mm[Hg] Meet Carl SHEA Work Phone: [facility] [employer] 10-04-2024 14:00-0500 SaO2% (BldA) [Mass fraction] 96 % Meet Carl SHEA Work Phone: [facility] [employer] 10-04-2024 13:43-0500 Body temperature 97 [degF] Meet Carl SHEA Work Phone: [facility] [employer] 10-04-2024 08:39-0500 Body height 180.3 cm Meet Carl SHEA Work Phone: [facility] [employer] 10-04-2024 08:39-0500 Body mass index (BMI) [Ratio] 41 kg/m2 Meet Carl SHEA Work Phone: [facility] [employer] 10-04-2024 08:39-0500 Body weight 133.36 kg Meet Carl SHEA Work Phone: [facility] [employer] 09-05-2024 09:56-0500 Body height 180.3 cm Josh Lr MD Work Phone: [facility] [employer] 09-05-2024 09:56-0500 Body mass index (BMI) [Ratio] 34.03 kg/m2 Josh Lr MD Work Phone: [facility] [employer] 09-05-2024 09:56-0500 Body weight 110.68 kg Josh Lr MD Work Phone: [facility] [employer] 09-05-2024 09:56-0500 Diastolic blood pressure 80 mm[Hg] Josh Lr MD Work Phone: [facility] [employer] 09-05-2024 09:56-0500 Heart rate 72 /min Josh Lr MD Work Phone: [facility] [employer] 09-05-2024 09:56-0500 SaO2% (BldA) [Mass fraction] 95 % Josh Lr MD Work Phone: [facility] [employer] 09-05-2024 09:56-0500 Systolic blood pressure 120 mm[Hg] Josh Lr MD Work Phone: [facility] 08-24-2024 08:10-0500 Body height 180.[address] Jt Membreno MD Work Phone: [facility] 08-24-2024 08:10-0500 Body mass index (BMI) [Ratio] 41.8 kg/m2 Dr. Jt Membreno MD Work Phone: [facility] 08-24-2024 08:10-0500 Body temperature 97.4 [degF] Dr. Jt Membreno MD Work Phone: [facility] 08-24-2024 08:10-0500 Body weight 136.[address] Jt Membreno MD Work Phone: [facility] 08-24-2024 08:10-0500 Diastolic blood pressure 80 mm[Hg] Dr. Jt Membreno MD Work Phone: [facility] 08-24-2024 08:10-0500 Heart rate 118 /min Dr. Jt Membreno MD Work Phone: [facility] 08-24-2024 08:10-0500 Respiratory rate 20 /min Dr. Jt Membreno MD Work Phone: [facility] 08-24-2024 08:10-0500 SaO2% (BldA) [Mass fraction] 96 % Dr. Jt Membreno MD Work Phone: [facility] 08-24-2024 08:10-0500 Systolic blood pressure 140 mm[Hg] Dr. Jt Membreno MD Work Phone: [facility] 06-27-2024 10:14-0400 Body weight 133.[address] Jt Membreno MD Work Phone: [facility] 12-15-2023 11:37-0400 Body height 180.[address] Jt Membreno Work Phone: [facility] 12-15-2023 11:33-0400 Body mass index (BMI) [Ratio] 42.1 kg/m2 Dr. Jt Membreno Work Phone: [facility] 12-15-2023 11:33-0400 Body temperature 97.8 [degF] Dr. Jt Membreno Work Phone: [facility] 12-15-2023 11:33-0400 Body weight 137.[address] Jt Membreno Work Phone: [facility] 12-15-2023 11:33-0400 Diastolic blood pressure 77 mm[Hg] Dr. Jt Membreno Work Phone: [facility] 12-15-2023 11:33-0400 Heart rate 71 /min Dr. Jt Membreno Work Phone: [facility] 12-15-2023 11:33-0400 Respiratory rate 18 /min Dr. Jt Membreno Work Phone: [facility] 12-15-2023 11:33-0400 SaO2% (BldA) [Mass fraction] 96 % Dr. Jt Membreno Work Phone: [facility] 12-15-2023 11:33-0400 Systolic blood pressure 121 mm[Hg] Dr. Jt Membreno Work Phone: [facility] 12-12-2023 22:39-0400 Body mass index (BMI) [Ratio] 38.9 kg/m2 Dr. Jt Membreno Work Phone: [facility] 12-03-2023 23:30-0400 Body temperature 98.2 [degF] Dr. Jt Membreno Work Phone: [facility] 12-03-2023 23:30-0400 Diastolic blood pressure 71 mm[Hg] Dr. Jt Membreno Work Phone: [facility] 12-03-2023 23:30-0400 Heart rate 81 /min Dr. Jt Membreno Work Phone: [facility] 12-03-2023 23:30-0400 Respiratory rate 16 /min Dr. Jt Membreno Work Phone: [facility] 12-03-2023 23:30-0400 SaO2% (BldA) [Mass fraction] 97 % Dr. Jt Membreno Work Phone: [facility] 12-03-2023 23:30-0400 Systolic blood pressure 129 mm[Hg] Dr. Jt Membreno Work Phone: [facility] 12-03-2023 20:28-0400 Body height 180.[address] Jt Membreno Work Phone: [facility] 12-03-2023 20:28-0400 Body mass index (BMI) [Ratio] 41.6 kg/m2 Dr. Jt Membreno Work Phone: [facility] 12-03-2023 20:28-0400 Body weight 135.[address] Jt Membreno Work Phone: [facility] 11-17-2023 07:50-0500 Body height 180.3 cm Ernesto Aguiar MD Work Phone: [facility] 11-17-2023 07:50-0500 Body weight 137 kg Ernesto Aguiar MD Work Phone: [facility] 11-13-2023 08:00-0500 Body temperature 97.9 [degF] Dr. Jt Membreno Work Phone: [facility] 11-13-2023 08:00-0500 Diastolic blood pressure 79 mm[Hg] Dr. Jt Membreno Work Phone: [facility] 11-13-2023 08:00-0500 Heart rate 74 /min Dr. Jt Membreno Work Phone: [facility] 11-13-2023 08:00-0500 Respiratory rate 16 /min Dr. Jt Membreno Work Phone: [facility] 11-13-2023 08:00-0500 SaO2% (BldA) [Mass fraction] 98 % Dr. Jt Membreno Work Phone: [facility] 11-13-2023 08:00-0500 Systolic blood pressure 149 mm[Hg] Dr. Jt Membreno Work Phone: [facility] 11-12-2023 23:51-0500 Body mass index (BMI) [Ratio] 38.9 kg/m2 Dr. Jt Membreno Work Phone: [facility] 11-12-2023 21:17-0500 Body temperature 97.6 [degF] Dr. Jt Membreno Work Phone: [facility] 11-12-2023 21:17-0500 Diastolic blood pressure 65 mm[Hg] Dr. Jt Membreno Work Phone: [facility] 11-12-2023 21:17-0500 Heart rate 75 /min Dr. Jt Membreno Work Phone: [facility] 11-12-2023 21:17-0500 Respiratory rate 16 /min Dr. Jt Membreno Work Phone: [facility] 11-12-2023 21:17-0500 SaO2% (BldA) [Mass fraction] 96 % Dr. Jt Membreno Work Phone: [facility] 11-12-2023 21:17-0500 Systolic blood pressure 125 mm[Hg] Dr. Jt Membreno Work Phone: [facility] 11-12-2023 14:38-0500 Body height 180.[address] Jt Membreno Work Phone: [facility] 11-12-2023 14:38-0500 Body weight 62.[address] Jt Membreno Work Phone: [facility] 11-11-2023 20:03-0500 Body mass index (BMI) [Ratio] 19.3 kg/m2 Dr. Jt Membreno Work Phone: [facility] 11-11-2023 19:40-0500 Body temperature 98.6 [degF] Dr. Jt Membreno Work Phone: [facility] 11-11-2023 19:40-0500 Diastolic blood pressure 60 mm[Hg] Dr. Jt Membreno Work Phone: [facility] 11-11-2023 19:40-0500 Heart rate 69 /min Dr. Jt Membreno Work Phone: [facility] 11-11-2023 19:40-0500 Respiratory rate 18 /min Dr. Jt Membreno Work Phone: [facility] 11-11-2023 19:40-0500 SaO2% (BldA) [Mass fraction] 96 % Dr. Jt Membreno Work Phone: [facility] 11-11-2023 19:40-0500 Systolic blood pressure 136 mm[Hg] Dr. Jt Membreno Work Phone: [facility] 11-11-2023 12:56-0500 Body height 180.[address] Jt Membreno Work Phone: [facility] 11-11-2023 12:56-0500 Body mass index (BMI) [Ratio] 42.6 kg/m2 Dr. Jt Membreno Work Phone: [facility] 11-11-2023 12:56-0500 Body weight 138.[address] Jt Membreno Work Phone: [facility] 11-02-2023 11:59-0500 Body height 180.[address] Jt Membreno Work Phone: [facility] 11-02-2023 11:59-0500 Body mass index (BMI) [Ratio] 42.1 kg/m2 Dr. Jt Membreno Work Phone: [facility] 11-02-2023 11:59-0500 Body temperature 98.2 [degF] Dr. Jt Membreno Work Phone: [facility] 11-02-2023 11:59-0500 Body weight 137.[address] Jt Membreno Work Phone: [facility] 11-02-2023 11:59-0500 Diastolic blood pressure 69 mm[Hg] Dr. Jt Membreno Work Phone: [facility] 11-02-2023 11:59-0500 Heart rate 71 /min Dr. Jt Membreno Work Phone: [facility] 11-02-2023 11:59-0500 Respiratory rate 18 /min Dr. Jt Membreno Work Phone: [facility] 11-02-2023 11:59-0500 SaO2% (BldA) [Mass fraction] 96 % Dr. Jt Membreno Work Phone: [facility] 11-02-2023 11:59-0500 Systolic blood pressure 117 mm[Hg] Dr. Jt Membreno Work Phone: [facility] 10-29-2023 15:48-0500 Body mass index (BMI) [Ratio] 42.1 kg/m2 Dr. Jt Membreno Work Phone: [facility] 10-29-2023 15:48-0500 Body temperature 97.7 [degF] Dr. Jt Membreno Work Phone: [facility] 10-29-2023 15:48-0500 Body weight 137.[address] Jt Membreno Work Phone: [facility] 10-29-2023 15:48-0500 Diastolic blood pressure 75 mm[Hg] Dr. Jt Membreno Work Phone: [facility] 10-29-2023 15:48-0500 Heart rate 70 /min Dr. Jt Membreno Work Phone: [facility] 10-29-2023 15:48-0500 Respiratory rate 18 /min Dr. Jt Membreno Work Phone: [facility] 10-29-2023 15:48-0500 SaO2% (BldA) [Mass fraction] 92 % Dr. Jt Membreno Work Phone: [facility] 10-29-2023 15:48-0500 Systolic blood pressure 133 mm[Hg] Dr. Jt Membreno Work Phone: [facility] 10-27-2023 15:11-0500 Body mass index (BMI) [Ratio] 42.3 kg/m2 Dr. Jt Membreno Work Phone: [facility] 10-27-2023 15:11-0500 Body temperature 97.5 [degF] Dr. Jt Membreno Work Phone: [facility] 10-27-2023 15:11-0500 Body weight 137.[address] Jt Membreno Work Phone: [facility] 10-27-2023 15:11-0500 Diastolic blood pressure 76 mm[Hg] Dr. Jt Membreno Work Phone: [facility] 10-27-2023 15:11-0500 Heart rate 77 /min Dr. Jt Membreno Work Phone: [facility] 10-27-2023 15:11-0500 Respiratory rate 18 /min Dr. Jt Membreno Work Phone: [facility] 10-27-2023 15:11-0500 SaO2% (BldA) [Mass fraction] 92 % Dr. Jt Membreno Work Phone: [facility] 10-27-2023 15:11-0500 Systolic blood pressure 153 mm[Hg] Dr. Jt Membreno Work Phone: [facility] 10-25-2023 12:49-0500 Diastolic blood pressure 65 mm[Hg] Dr. Jt Membreno Work Phone: [facility] 10-25-2023 12:49-0500 Heart rate 70 /min Dr. Jt Membreno Work Phone: [facility] 10-25-2023 12:49-0500 Systolic blood pressure 115 mm[Hg] Dr. Jt Membreno Work Phone: [facility] 10-25-2023 10:52-0500 Respiratory rate 16 /min Dr. Jt Membreno Work Phone: [facility] 10-25-2023 10:52-0500 SaO2% (BldA) [Mass fraction] 96 % Dr. Jt Membreno Work Phone: [facility] 10-25-2023 08:40-0500 Body height 180.[address] Jt Membreno Work Phone: [facility] 10-25-2023 08:40-0500 Body mass index (BMI) [Ratio] 42.4 kg/m2 Dr. Jt Membreno Work Phone: [facility] 10-25-2023 08:40-0500 Body temperature 96.7 [degF] Dr. Jt Membreno Work Phone: [facility] 10-25-2023 08:40-0500 Body weight 137.[address] Jt Membreno Work Phone: [facility] 10-12-2023 09:45-0500 Body mass index (BMI) [Ratio] 41.8 kg/m2 Dr. Jt Membreno Work Phone: [facility] 10-12-2023 09:45-0500 Body temperature 98.4 [degF] Dr. Jt Membreno Work Phone: [facility] 10-12-2023 09:45-0500 Body weight 136.[address] Jt Membreno Work Phone: [facility] 10-12-2023 09:45-0500 Diastolic blood pressure 67 mm[Hg] Dr. Jt Membreno Work Phone: [facility] 10-12-2023 09:45-0500 Heart rate 75 /min Dr. Jt Membreno Work Phone: [facility] 10-12-2023 09:45-0500 Respiratory rate 18 /min Dr. Jt Membreno Work Phone: [facility] 10-12-2023 09:45-0500 SaO2% (BldA) [Mass fraction] 96 % Dr. Jt Membreno Work Phone: [facility] 10-12-2023 09:45-0500 Systolic blood pressure 125 mm[Hg] Dr. Jt Membreno Work Phone: [facility] 10-05-2023 10:53-0500 Body mass index (BMI) [Ratio] 42 kg/m2 Dr. Jt Membreno Work Phone: [facility] 10-05-2023 10:53-0500 Body temperature 98.1 [degF] Dr. Jt Membreno Work Phone: [facility] 10-05-2023 10:53-0500 Body weight 136.[address] Jt Membreno Work Phone: [facility] 10-05-2023 10:53-0500 Diastolic blood pressure 80 mm[Hg] Dr. Jt Membreno Work Phone: [facility] 10-05-2023 10:53-0500 Heart rate 71 /min Dr. Jt Membreno Work Phone: [facility] 10-05-2023 10:53-0500 Respiratory rate 18 /min Dr. Jt Membreno Work Phone: [facility] 10-05-2023 10:53-0500 SaO2% (BldA) [Mass fraction] 96 % Dr. tJ Membreno Work Phone: [facility] 10-05-2023 10:53-0500 Systolic blood pressure 131 mm[Hg] Dr. Jt Membreno Work Phone: [facility] 09-21-2023 09:08-0500 Body mass index (BMI) [Ratio] 41.5 kg/m2 Dr. Jt Membreno Work Phone: [facility] 09-21-2023 09:08-0500 Body temperature 98.2 [degF] Dr. Jt Membreno Work Phone: [facility] 09-21-2023 09:08-0500 Body weight 134.[address] Jt Membreno Work Phone: [facility] 09-21-2023 09:08-0500 Diastolic blood pressure 61 mm[Hg] Dr. Jt Membreno Work Phone: [facility] 09-21-2023 09:08-0500 Heart rate 75 /min Dr. Jt Membreno Work Phone: [facility] 09-21-2023 09:08-0500 Respiratory rate 18 /min Dr. Jt Membreno Work Phone: [facility] 09-21-2023 09:08-0500 SaO2% (BldA) [Mass fraction] 96 % Dr. Jt Membreno Work Phone: [facility] 09-21-2023 09:08-0500 Systolic blood pressure 126 mm[Hg] Dr. Jt Membreno Work Phone: [facility] 09-15-2023 09:22-0500 Body mass index (BMI) [Ratio] 41 kg/m2 Dr. Jt Membreno Work Phone: [facility] 09-15-2023 09:22-0500 Body temperature 98.2 [degF] Dr. Jt Membreno Work Phone: [facility] 09-15-2023 09:22-0500 Body weight 133.[address] Jt Membreno Work Phone: [facility] 09-15-2023 09:22-0500 Diastolic blood pressure 71 mm[Hg] Dr. Jt Membreno Work Phone: [facility] 09-15-2023 09:22-0500 Heart rate 77 /min Dr. Jt Membreno Work Phone: [facility] 09-15-2023 09:22-0500 Respiratory rate 16 /min Dr. Jt Membreno Work Phone: [facility] 09-15-2023 09:22-0500 SaO2% (BldA) [Mass fraction] 95 % Dr. Jt Membreno Work Phone: [facility] 09-15-2023 09:22-0500 Systolic blood pressure 125 mm[Hg] Dr. Jt Membreno Work Phone: [facility] 09-13-2023 20:54-0500 Body mass index (BMI) [Ratio] 38.9 kg/m2 Dr. Jt Membreno Work Phone: [facility] 08-31-2023 09:34-0500 Body height 180.[address] Jt Membreno Work Phone: [facility] 08-31-2023 09:34-0500 Body mass index (BMI) [Ratio] 41.1 kg/m2 Dr. Jt Membreno Work Phone: [facility] 08-31-2023 09:34-0500 Body temperature 98.8 [degF] Dr. Jt Membreno Work Phone: [facility] 08-31-2023 09:34-0500 Body weight 133.[address] Jt Membreno Work Phone: [facility] 08-31-2023 09:34-0500 Diastolic blood pressure 71 mm[Hg] Dr. Jt Membreno Work Phone: [facility] 08-31-2023 09:34-0500 Heart rate 73 /min Dr. Jt Membreno Work Phone: [facility] 08-31-2023 09:34-0500 Respiratory rate 18 /min Dr. Jt Membreno Work Phone: [facility] 08-31-2023 09:34-0500 SaO2% (BldA) [Mass fraction] 93 % Dr. Jt Membreno Work Phone: [facility] 08-31-2023 09:34-0500 Systolic blood pressure 129 mm[Hg] Dr. Jt Membreno Work Phone: [facility] 08-24-2023 13:18-0500 Body mass index (BMI) [Ratio] 41.1 kg/m2 Dr. Jt Membreno Work Phone: [facility] 08-24-2023 13:18-0500 Body temperature 97.4 [degF] Dr. Jt Membreno Work Phone: [facility] 08-24-2023 13:18-0500 Body weight 133.[address] Jt Membreno Work Phone: [facility] 08-24-2023 13:18-0500 Diastolic blood pressure 82 mm[Hg] Dr. Jt Membreno Work Phone: [facility] 08-24-2023 13:18-0500 Heart rate 75 /min Dr. Jt Membreno Work Phone: [facility] 08-24-2023 13:18-0500 Respiratory rate 16 /min Dr. Jt Membreno Work Phone: [facility] 08-24-2023 13:18-0500 SaO2% (BldA) [Mass fraction] 95 % Dr. Jt Membreno Work Phone: [facility] 08-24-2023 13:18-0500 Systolic blood pressure 133 mm[Hg] Dr. Jt Membreno Work Phone: [facility] 08-18-2023 06:18-0500 Body mass index (BMI) [Ratio] 40.5 kg/m2 Dr. Jt Membreno Work Phone: [facility] 08-18-2023 06:18-0500 Body temperature 96.7 [degF] Dr. Jt Membreno Work Phone: [facility] 08-18-2023 06:18-0500 Body weight 131.[address] Jt Membreno Work Phone: [facility] 08-18-2023 06:18-0500 Diastolic blood pressure 52 mm[Hg] Dr. Jt Membreno Work Phone: [facility] 08-18-2023 06:18-0500 Heart rate 81 /min Dr. Jt Membreno Work Phone: [facility] 08-18-2023 06:18-0500 Respiratory rate 16 /min Dr. Jt Membreno Work Phone: [facility] 08-18-2023 06:18-0500 SaO2% (BldA) [Mass fraction] 97 % Dr. Jt Membreno Work Phone: [facility] 08-18-2023 06:18-0500 Systolic blood pressure 125 mm[Hg] Dr. Jt Membreno Work Phone: [facility] 08-10-2023 09:53-0500 Body mass index (BMI) [Ratio] 40.4 kg/m2 Dr. Jt Membreno Work Phone: 5(149)767-[address] [place] [address] 08-10-2023 09:53-0500 Body temperature 98.4 [degF] Dr. Jt Membreno Work Phone: [facility] 08-10-2023 09:53-0500 Body weight 131.[address] Jt Membreno Work Phone: [facility] 08-10-2023 09:53-0500 Diastolic blood pressure 80 mm[Hg] Dr. Jt Membreno Work Phone: [facility] 08-10-2023 09:53-0500 Heart rate 73 /min Dr. Jt Membreno Work Phone: [facility] 08-10-2023 09:53-0500 Respiratory rate 18 /min Dr. Jt Membreno Work Phone: [facility] 08-10-2023 09:53-0500 SaO2% (BldA) [Mass fraction] 96 % Dr. Jt Membreno Work Phone: [facility] 08-10-2023 09:53-0500 Systolic blood pressure 137 mm[Hg] Dr. Jt Membreno Work Phone: [facility] 08-04-2023 12:21-0500 Body height 180.3 cm Ernesto Aguiar MD Work Phone: [facility] 08-04-2023 12:21-0500 Body weight 129.73 kg Ernesto Aguiar MD Work Phone: [facility] 08-03-2023 10:35-0500 Body temperature 98.4 [degF] Dr. Jt Membreno Work Phone: [facility] 08-03-2023 10:35-0500 Diastolic blood pressure 65 mm[Hg] Dr. Jt Membreno Work Phone: [facility] 08-03-2023 10:35-0500 Heart rate 73 /min Dr. Jt Membreno Work Phone: [facility] 08-03-2023 10:35-0500 Respiratory rate 16 /min Dr. Jt Membreno Work Phone: [facility] 08-03-2023 10:35-0500 SaO2% (BldA) [Mass fraction] 97 % Dr. Jt Membreno Work Phone: [facility] 08-03-2023 10:35-0500 Systolic blood pressure 111 mm[Hg] Dr. Jt Membreno Work Phone: [facility] 08-03-2023 08:19-0500 Body height 180.[address] Jt Membreno Work Phone: [facility] 08-03-2023 08:19-0500 Body mass index (BMI) [Ratio] 40.2 kg/m2 Dr. tJ Membreno Work Phone: [facility] 08-03-2023 08:19-0500 Body weight [address] Jt Membreno Work Phone: [facility] 07-29-2023 14:04-0500 Body mass index (BMI) [Ratio] 41.1 kg/m2 Dr. Jt Membreno Work Phone: [facility] 07-29-2023 14:04-0500 Body temperature 98.8 [degF] Dr. Jt Membreno Work Phone: [facility] 07-29-2023 14:04-0500 Body weight 133.[address] Jt Membreno Work Phone: [facility] 07-29-2023 14:04-0500 Diastolic blood pressure 76 mm[Hg] Dr. Jt Membreno Work Phone: [facility] 07-29-2023 14:04-0500 Heart rate 83 /min Dr. Jt Membreno Work Phone: [facility] 07-29-2023 14:04-0500 Respiratory rate 18 /min Dr. Jt Membreno Work Phone: [facility] 07-29-2023 14:04-0500 SaO2% (BldA) [Mass fraction] 96 % Dr. Jt Membreno Work Phone: [facility] 07-29-2023 14:04-0500 Systolic blood pressure 146 mm[Hg] Dr. Jt Membreno Work Phone: [facility] 07-28-2023 15:35-0500 Body mass index (BMI) [Ratio] 41 kg/m2 Dr. Jt Membreno Work Phone: [facility] 07-28-2023 15:35-0500 Body temperature 97.1 [degF] Dr. Jt Membreno Work Phone: [facility] 07-28-2023 15:35-0500 Body weight 133.[address] Jt Membreno Work Phone: [facility] 07-28-2023 15:35-0500 Diastolic blood pressure 78 mm[Hg] Dr. Jt Membreno Work Phone: [facility] 07-28-2023 15:35-0500 Heart rate 80 /min Dr. Jt Membreno Work Phone: [facility] 07-28-2023 15:35-0500 Respiratory rate 16 /min Dr. Jt Membreno Work Phone: [facility] 07-28-2023 15:35-0500 SaO2% (BldA) [Mass fraction] 95 % Dr. Jt Membreno Work Phone: [facility] 07-28-2023 15:35-0500 Systolic blood pressure 123 mm[Hg] Dr. Jt Membreno Work Phone: [facility] 07-19-2023 16:26-0500 Diastolic blood pressure 77 mm[Hg] Dr. Jt Membreno Work Phone: [facility] 07-19-2023 16:26-0500 Heart rate 62 /min Dr. Jt Membreno Work Phone: [facility] 07-19-2023 16:26-0500 Respiratory rate 15 /min Dr. Jt Membreno Work Phone: [facility] 07-19-2023 16:26-0500 SaO2% (BldA) [Mass fraction] 97 % Dr. Jt Membreno Work Phone: [facility] 07-19-2023 16:26-0500 Systolic blood pressure 138 mm[Hg] Dr. Jt Membreno Work Phone: [facility] 07-19-2023 13:16-0500 Body height 180.[address] Jt Membreno Work Phone: [facility] 07-19-2023 13:16-0500 Body mass index (BMI) [Ratio] 40.1 kg/m2 Dr. Jt Membreno Work Phone: [facility] 07-19-2023 13:16-0500 Body temperature 97.6 [degF] Dr. Jt Membreno Work Phone: [facility] 07-19-2023 13:16-0500 Body weight 130.[address] Jt Membreno Work Phone: [facility] 07-17-2023 12:10-0400 Diastolic blood pressure 66 mm[Hg] Dr. Jt Membreno Work Phone: [facility] 07-17-2023 12:10-0400 Heart rate 73 /min Dr. Jt Membreno Work Phone: [facility] 07-17-2023 12:10-0400 Respiratory rate 18 /min Dr. Jt Membreno Work Phone: 0(536)643-327609 [place] [address] 07-17-2023 12:10-0400 SaO2% (BldA) [Mass fraction] 95 % Dr. Jt Membreno Work Phone: 6(582)845-479809 [place] [address] 07-17-2023 12:10-0400 Systolic blood pressure 115 mm[Hg] Dr. Jt Membreno Work Phone: 1(028)221-120321 [place] [address] 07-17-2023 08:26-0400 Body temperature 97.9 [degF] Dr. Jt Membreno Work Phone: 0(804)087-435509 [place] [address] 07-16-2023 11:32-0400 Body height 180.[address] Jt Membreno Work Phone: 9(388)486-994821 [place] [address] 07-16-2023 11:32-0400 Body weight 130.[address] Jt Membreno Work Phone: 4(422)250-335421 [place] [address] 07-15-2023 21:46-0400 Body mass index (BMI) [Ratio] 40.2 kg/m2 Dr. Jt Membreno Work Phone: 6(002)286-828509 [place] [address] 07-15-2023 18:00-0400 Diastolic blood pressure 57 mm[Hg] Dr. Jt Membreno Work Phone: 7(309)599-108709 [place] [address] 07-15-2023 18:00-0400 Heart rate 79 /min Dr. Jt Membreno Work Phone: 1(965)228-960709 [place] [address] 07-15-2023 18:00-0400 Respiratory rate 18 /min Dr. Jt Membreno Work Phone: [facility] 07-15-2023 18:00-0400 SaO2% (BldA) [Mass fraction] 99 % Dr. Jt Membreno Work Phone: [facility] 07-15-2023 18:00-0400 Systolic blood pressure 122 mm[Hg] Dr. Jt Membreno Work Phone: [facility] 07-15-2023 16:18-0400 Body temperature 98.2 [degF] Dr. Jt Membreno Work Phone: [facility] 07-15-2023 15:02-0400 Body height 180.[address] Jt Membreno Work Phone: [facility] 07-15-2023 15:02-0400 Body mass index (BMI) [Ratio] 39.9 kg/m2 Dr. Jt Membreno Work Phone: [facility] 07-15-2023 15:02-0400 Body weight 129.[address] Jt Membreno Work Phone: [facility] 07-14-2023 22:50-0400 Body mass index (BMI) [Ratio] 38.9 kg/m2 Dr. Jt Membreno Work Phone: [facility] 07-14-2023 08:49-0400 Body mass index (BMI) [Ratio] 40.3 kg/m2 Dr. Jt Membreno Work Phone: [facility] 07-14-2023 08:49-0400 Body weight 131.[address] Jt Membreno Work Phone: [facility] 07-14-2023 08:49-0400 Diastolic blood pressure 73 mm[Hg] Dr. Jt Membreno Work Phone: [facility] 07-14-2023 08:49-0400 Heart rate 88 /min Dr. Jt Membreno Work Phone: [facility] 07-14-2023 08:49-0400 Respiratory rate 18 /min Dr. Jt Membreno Work Phone: [facility] 07-14-2023 08:49-0400 Systolic blood pressure 127 mm[Hg] Dr. Jt Membreno Work Phone: [facility] 07-12-2023 11:44-0400 Diastolic blood pressure 76 mm[Hg] Dr. Jt Membreno Work Phone: [facility] 07-12-2023 11:44-0400 Heart rate 70 /min Dr. Jt Membreno Work Phone: 3(538)298-874509 [place] [address] 07-12-2023 11:44-0400 Respiratory rate 16 /min Dr. Jt Membreno Work Phone: [facility] 07-12-2023 11:44-0400 SaO2% (BldA) [Mass fraction] 96 % Dr. Jt Membreno Work Phone: 7(125)532-149109 [place] [address] 07-12-2023 11:44-0400 Systolic blood pressure 127 mm[Hg] Dr. Jt Membreno Work Phone: 9(663)197-086709 [place] [address] 07-12-2023 09:21-0400 Body height 180.[address] Jt Membreno Work Phone: 6(419)726-557309 [place] [address] 07-12-2023 09:21-0400 Body mass index (BMI) [Ratio] 40.4 kg/m2 Dr. Jt Membreno Work Phone: [facility] 07-12-2023 09:21-0400 Body temperature 97.3 [degF] Dr. Jt Membreno Work Phone: [facility] 07-12-2023 09:21-0400 Body weight 131.[address] Jt Membreno Work Phone: [facility] 07-07-2023 09:20-0400 Body mass index (BMI) [Ratio] 40.8 kg/m2 Dr. Jt Membreno Work Phone: [facility] 07-07-2023 09:20-0400 Body temperature 98.2 [degF] Dr. Jt Membreno Work Phone: 1(207)397-613809 [place] [address] 07-07-2023 09:20-0400 Body weight 132.[address] Jt Membreno Work Phone: [facility] 07-07-2023 09:20-0400 Diastolic blood pressure 76 mm[Hg] Dr. Jt Membreno Work Phone: [facility] 07-07-2023 09:20-0400 Heart rate 86 /min Dr. Jt Membreno Work Phone: [facility] 07-07-2023 09:20-0400 Respiratory rate 16 /min Dr. Jt Membreno Work Phone: [facility] 07-07-2023 09:20-0400 SaO2% (BldA) [Mass fraction] 95 % Dr. Jt Membreno Work Phone: [facility] 07-07-2023 09:20-0400 Systolic blood pressure 133 mm[Hg] Dr. Jt Membreno Work Phone: [facility] 07-07-2023 09:01-0400 Body mass index (BMI) [Ratio] 40.8 kg/m2 Dr. Jt Membreno Work Phone: [facility] 07-07-2023 09:01-0400 Body temperature 98.2 [degF] Dr. Jt Membreno Work Phone: [facility] 07-07-2023 09:01-0400 Body weight 132.[address] Jt Membreno Work Phone: [facility] 07-07-2023 09:01-0400 Diastolic blood pressure 76 mm[Hg] Dr. Jt Membreno Work Phone: [facility] 07-07-2023 09:01-0400 Heart rate 86 /min Dr. Jt Membreno Work Phone: [facility] 07-07-2023 09:01-0400 Respiratory rate 16 /min Dr. Jt Membreno Work Phone: [facility] 07-07-2023 09:01-0400 SaO2% (BldA) [Mass fraction] 95 % Dr. Jt Membreno Work Phone: [facility] 07-07-2023 09:01-0400 Systolic blood pressure 133 mm[Hg] Dr. Jt Membreno Work Phone: [facility] 07-01-2023 09:03-0400 Body mass index (BMI) [Ratio] 41.4 kg/m2 Dr. Jt Membreno Work Phone: [facility] 07-01-2023 09:03-0400 Body temperature 98.1 [degF] Dr. Jt Membreno Work Phone: [facility] 07-01-2023 09:03-0400 Body weight 134.[address] Jt Membreno Work Phone: [facility] 07-01-2023 09:03-0400 Diastolic blood pressure 75 mm[Hg] Dr. Jt Membreno Work Phone: 1(095)762-335409 [place] [address] 07-01-2023 09:03-0400 Heart rate 79 /min Dr. Jt Membreno Work Phone: [facility] 07-01-2023 09:03-0400 Respiratory rate 16 /min Dr. Jt Membreno Work Phone: [facility] 07-01-2023 09:03-0400 SaO2% (BldA) [Mass fraction] 94 % Dr. Jt Membreno Work Phone: [facility] 07-01-2023 09:03-0400 Systolic blood pressure 128 mm[Hg] Dr. Jt Membreno Work Phone: [facility] 06-30-2023 09:57-0400 Body mass index (BMI) [Ratio] 41.4 kg/m2 Dr. Jt Membreno Work Phone: [facility] 06-30-2023 09:57-0400 Body temperature 98.3 [degF] Dr. Jt Membreno Work Phone: [facility] 06-30-2023 09:57-0400 Body weight 134.[address] Jt Membreno Work Phone: [facility] 06-30-2023 09:57-0400 Diastolic blood pressure 67 mm[Hg] Dr. Jt Membreno Work Phone: [facility] 06-30-2023 09:57-0400 Heart rate 84 /min Dr. Jt Membreno Work Phone: [facility] 06-30-2023 09:57-0400 Respiratory rate 18 /min Dr. Jt Membreno Work Phone: [facility] 06-30-2023 09:57-0400 SaO2% (BldA) [Mass fraction] 94 % Dr. Jt Membreno Work Phone: [facility] 06-30-2023 09:57-0400 Systolic blood pressure 128 mm[Hg] Dr. Jt Membreno Work Phone: [facility] 06-24-2023 09:02-0400 Body height 180.[address] Jt Membreno Work Phone: [facility] 06-24-2023 09:02-0400 Body mass index (BMI) [Ratio] 41.4 kg/m2 Dr. Jt Membreno Work Phone: [facility] 06-24-2023 09:02-0400 Body temperature 98.2 [degF] Dr. Jt Membreno Work Phone: [facility] 06-24-2023 09:02-0400 Body weight 134.[address] Jt Membreno Work Phone: [facility] 06-24-2023 09:02-0400 Diastolic blood pressure 75 mm[Hg] Dr. Jt Membreno Work Phone: [facility] 06-24-2023 09:02-0400 Heart rate 80 /min Dr. Jt Membreno Work Phone: [facility] 06-24-2023 09:02-0400 Respiratory rate 18 /min Dr. Jt Membreno Work Phone: [facility] 06-24-2023 09:02-0400 SaO2% (BldA) [Mass fraction] 94 % Dr. Jt Membreno Work Phone: [facility] 06-24-2023 09:02-0400 Systolic blood pressure 121 mm[Hg] Dr. Jt Membreno Work Phone: [facility] 06-23-2023 08:55-0400 Body mass index (BMI) [Ratio] 41.8 kg/m2 Dr. Jt Membreno Work Phone: [facility] 06-23-2023 08:55-0400 Body temperature 98.7 [degF] Dr. Jt Membreno Work Phone: [facility] 06-23-2023 08:55-0400 Body weight 135.[address] Jt Membreno Work Phone: [facility] 06-23-2023 08:55-0400 Diastolic blood pressure 80 mm[Hg] Dr. Jt Membreno Work Phone: [facility] 06-23-2023 08:55-0400 Heart rate 80 /min Dr. Jt Membreno Work Phone: [facility] 06-23-2023 08:55-0400 Respiratory rate 18 /min Dr. Jt Membreno Work Phone: [facility] 06-23-2023 08:55-0400 SaO2% (BldA) [Mass fraction] 95 % Dr. Jt Membreno Work Phone: [facility] 06-23-2023 08:55-0400 Systolic blood pressure 132 mm[Hg] Dr. Jt Membreno Work Phone: [facility] 06-17-2023 09:01-0400 Body mass index (BMI) [Ratio] 41.5 kg/m2 Dr. Jt Membreno Work Phone: [facility] 06-17-2023 09:01-0400 Body temperature 97.9 [degF] Dr. Jt Membreno Work Phone: [facility] 06-17-2023 09:01-0400 Body weight 135.[address] Jt Membreno Work Phone: [facility] 06-17-2023 09:01-0400 Diastolic blood pressure 75 mm[Hg] Dr. Jt Membreno Work Phone: [facility] 06-17-2023 09:01-0400 Heart rate 75 /min Dr. Jt Membreno Work Phone: [facility] 06-17-2023 09:01-0400 Respiratory rate 18 /min Dr. Jt Membreno Work Phone: [facility] 06-17-2023 09:01-0400 SaO2% (BldA) [Mass fraction] 96 % Dr. Jt Membreno Work Phone: [facility] 06-17-2023 09:01-0400 Systolic blood pressure 138 mm[Hg] Dr. Jt Membreno Work Phone: [facility] 06-16-2023 09:07-0400 Body mass index (BMI) [Ratio] 41.5 kg/m2 Dr. Jt Membreno Work Phone: [facility] 06-16-2023 09:07-0400 Body temperature 98.4 [degF] Dr. Jt Membreno Work Phone: [facility] 06-16-2023 09:07-0400 Body weight 134.[address] Jt Membreno Work Phone: [facility] 06-16-2023 09:07-0400 Diastolic blood pressure 77 mm[Hg] Dr. Jt Membreno Work Phone: [facility] 06-16-2023 09:07-0400 Heart rate 18 /min Dr. Jt Membreno Work Phone: [facility] 06-16-2023 09:07-0400 Respiratory rate 18 /min Dr. Jt Membreno Work Phone: [facility] 06-16-2023 09:07-0400 SaO2% (BldA) [Mass fraction] 96 % Dr. Jt Membreno Work Phone: [facility] 06-16-2023 09:07-0400 Systolic blood pressure 130 mm[Hg] Dr. Jt Membreno Work Phone: 2(420)288-797709 [place] [address] 06-14-2023 02:48-0400 Body mass index (BMI) [Ratio] 38.9 kg/m2 Dr. Jt Membreno Work Phone: 9(595)002-753309 [place] [address] 06-10-2023 09:07-0400 Body mass index (BMI) [Ratio] 41.6 kg/m2 Dr. Jt Membreno Work Phone: 5(994)234-709060 [address] 06-10-2023 09:07-0400 Body temperature 97.9 [degF] Dr. Jt Membreno Work Phone: 3(399)658-060760 [address] 06-10-2023 09:07-0400 Body weight 135.[address] Jt Membreno Work Phone: 6(009)967-182960 [address] 06-10-2023 09:07-0400 Diastolic blood pressure 75 mm[Hg] Dr. Jt Membreno Work Phone: 9(040)292-323009 [place] [address] 06-10-2023 09:07-0400 Heart rate 70 /min Dr. Jt Membreno Work Phone: 5(767)073-937309 [place] [address] 06-10-2023 09:07-0400 Respiratory rate 16 /min Dr. Jt Membreno Work Phone: 6(028)732-755109 [place] [address] 06-10-2023 09:07-0400 SaO2% (BldA) [Mass fraction] 95 % Dr. Jt Membreno Work Phone: 0(965)868-579509 [place] [address] 06-10-2023 09:07-0400 Systolic blood pressure 133 mm[Hg] Dr. Jt Membreno Work Phone: 9(089)844-352360 [address] 06-09-2023 08:59-0400 Body mass index (BMI) [Ratio] 41.3 kg/m2 Dr. Jt Membreno Work Phone: [facility] 06-09-2023 08:59-0400 Body temperature 98.7 [degF] Dr. Jt Membreno Work Phone: [facility] 06-09-2023 08:59-0400 Body weight 134.[address] Jt Membrneo Work Phone: [facility] 06-09-2023 08:59-0400 Diastolic blood pressure 79 mm[Hg] Dr. Jt Membreno Work Phone: [facility] 06-09-2023 08:59-0400 Heart rate 72 /min Dr. Jt Membreno Work Phone: [facility] 06-09-2023 08:59-0400 Respiratory rate 18 /min Dr. Jt Membreno Work Phone: [facility] 06-09-2023 08:59-0400 SaO2% (BldA) [Mass fraction] 95 % Dr. Jt Membreno Work Phone: [facility] 06-09-2023 08:59-0400 Systolic blood pressure 137 mm[Hg] Dr. Jt Membreno Work Phone: [facility] 06-03-2023 08:56-0400 Body mass index (BMI) [Ratio] 40.7 kg/m2 Dr. Jt Membreno Work Phone: [facility] 06-03-2023 08:56-0400 Body temperature 97.8 [degF] Dr. Jt Membreno Work Phone: [facility] 06-03-2023 08:56-0400 Body weight 132.[address] Jt Membreno Work Phone: [facility] 06-03-2023 08:56-0400 Diastolic blood pressure 81 mm[Hg] Dr. Jt Memberno Work Phone: [facility] 06-03-2023 08:56-0400 Heart rate 69 /min Dr. Jt Membreno Work Phone: [facility] 06-03-2023 08:56-0400 Respiratory rate 18 /min Dr. Jt Membreno Work Phone: [facility] 06-03-2023 08:56-0400 SaO2% (BldA) [Mass fraction] 94 % Dr. Jt Membreno Work Phone: [facility] 06-03-2023 08:56-0400 Systolic blood pressure 138 mm[Hg] Dr. Jt Membreno Work Phone: [facility] 06-01-2023 11:32-0400 Body mass index (BMI) [Ratio] 39.9 kg/m2 Dr. Jt Membreno Work Phone: [facility] 06-01-2023 11:32-0400 Body temperature 97.5 [degF] Dr. tJ Membreno Work Phone: [facility] 06-01-2023 11:32-0400 Body weight 129.[address] Jt Membreno Work Phone: [facility] 06-01-2023 11:32-0400 Diastolic blood pressure 72 mm[Hg] Dr. Jt Membreno Work Phone: [facility] 06-01-2023 11:32-0400 Heart rate 75 /min Dr. Jt Membreno Work Phone: [facility] 06-01-2023 11:32-0400 Respiratory rate 17 /min Dr. Jt Membreno Work Phone: [facility] 06-01-2023 11:32-0400 SaO2% (BldA) [Mass fraction] 93 % Dr. Jt Membreno Work Phone: [facility] 06-01-2023 11:32-0400 Systolic blood pressure 139 mm[Hg] Dr. Jt Membreno Work Phone: [facility] 05-28-2023 10:00-0400 Body mass index (BMI) [Ratio] 40.4 kg/m2 Dr. Jt Membreno Work Phone: [facility] 05-28-2023 10:00-0400 Body temperature 97.9 [degF] Dr. Jt Membreno Work Phone: [facility] 05-28-2023 10:00-0400 Body weight 131.[address] Jt Membreno Work Phone: [facility] 05-28-2023 10:00-0400 Diastolic blood pressure 68 mm[Hg] Dr. Jt Membreno Work Phone: [facility] 05-28-2023 10:00-0400 Heart rate 77 /min Dr. Jt Membreno Work Phone: 1(602)758-896609 [place] [address] 05-28-2023 10:00-0400 Respiratory rate 18 /min Dr. Jt Membreno Work Phone: 1(874)665-898909 [place] [address] 05-28-2023 10:00-0400 SaO2% (BldA) [Mass fraction] 95 % Dr. Jt Membreno Work Phone: [facility] 05-28-2023 10:00-0400 Systolic blood pressure 115 mm[Hg] Dr. Jt Membreno Work Phone: [facility] 05-25-2023 08:22-0400 Body height 180.[address] Jt Membreno Work Phone: [facility] 05-25-2023 08:22-0400 Body mass index (BMI) [Ratio] 40.6 kg/m2 Dr. Jt Membreno Work Phone: [facility] 05-25-2023 08:22-0400 Body temperature 98.6 [degF] Dr. Jt Membreno Work Phone: [facility] 05-25-2023 08:22-0400 Body weight 132.[address] Jt Membreno Work Phone: [facility] 05-25-2023 08:22-0400 Diastolic blood pressure 73 mm[Hg] Dr. Jt Membreno Work Phone: [facility] 05-25-2023 08:22-0400 Heart rate 76 /min Dr. Jt Membreno Work Phone: [facility] 05-25-2023 08:22-0400 Respiratory rate 18 /min Dr. Jt Membreno Work Phone: [facility] 05-25-2023 08:22-0400 SaO2% (BldA) [Mass fraction] 93 % Dr. Jt Membreno Work Phone: [facility] 05-25-2023 08:22-0400 Systolic blood pressure 139 mm[Hg] Dr. Jt Membreno Work Phone: [facility] 05-14-2023 11:24-0400 Body height 180.[address] Jt Membreno Work Phone: [facility] 05-14-2023 11:24-0400 Body mass index (BMI) [Ratio] 41.1 kg/m2 Dr. Jt Membreno Work Phone: [facility] 05-14-2023 11:24-0400 Body temperature 97.7 [degF] Dr. Jt Membreno Work Phone: [facility] 05-14-2023 11:24-0400 Body weight 133.[address] Jt Membreno Work Phone: [facility] 05-14-2023 11:24-0400 Diastolic blood pressure 75 mm[Hg] Dr. Jt Membreno Work Phone: [facility] 05-14-2023 11:24-0400 Heart rate 67 /min Dr. Jt Membreno Work Phone: [facility] 05-14-2023 11:24-0400 Respiratory rate 18 /min Dr. Jt Membreno Work Phone: [facility] 05-14-2023 11:24-0400 SaO2% (BldA) [Mass fraction] 95 % Dr. Jt Membreno Work Phone: [facility] 05-14-2023 11:24-0400 Systolic blood pressure 127 mm[Hg] Dr. Jt Membreno Work Phone: [facility] 05-11-2023 14:35-0400 Body mass index (BMI) [Ratio] 40.3 kg/m2 Dr. Jt Membreno Work Phone: [facility] 05-11-2023 14:35-0400 Body temperature 98.7 [degF] Dr. Jt Membreno Work Phone: [facility] 05-11-2023 14:35-0400 Body weight 131.[address] Jt Membreno Work Phone: [facility] 05-11-2023 14:35-0400 Diastolic blood pressure 80 mm[Hg] Dr. Jt Membreno Work Phone: [facility] 05-11-2023 14:35-0400 Heart rate 76 /min Dr. Jt Membreno Work Phone: [facility] 05-11-2023 14:35-0400 Respiratory rate 18 /min Dr. Jt Membreno Work Phone: [facility] 05-11-2023 14:35-0400 SaO2% (BldA) [Mass fraction] 95 % Dr. Jt Membreno Work Phone: [facility] 05-11-2023 14:35-0400 Systolic blood pressure 151 mm[Hg] Dr. Jt Membreno Work Phone: [facility] 05-05-2023 12:07-0400 Body temperature 97.7 [degF] Dr. Jt Membreno Work Phone: [facility] 05-05-2023 12:07-0400 Diastolic blood pressure 73 mm[Hg] Dr. Jt Membreno Work Phone: [facility] 05-05-2023 12:07-0400 Heart rate 81 /min Dr. Jt Membreno Work Phone: [facility] 05-05-2023 12:07-0400 Respiratory rate 16 /min Dr. Jt Membreno Work Phone: [facility] 05-05-2023 12:07-0400 SaO2% (BldA) [Mass fraction] 99 % Dr. Jt Membreno Work Phone: [facility] 05-05-2023 12:07-0400 Systolic blood pressure 138 mm[Hg] Dr. Jt Membreno Work Phone: [facility] 05-05-2023 08:35-0400 Body height 180.[address] Jt Membreno Work Phone: 3(313)227-504060 [address] 05-05-2023 08:35-0400 Body mass index (BMI) [Ratio] 38.3 kg/m2 Dr. Jt Membreno Work Phone: 2(907)592-399160 [address] 05-05-2023 08:35-0400 Body weight 124.[address] Jt Membreno Work Phone: [facility] 04-14-2023 00:46-0400 Body mass index (BMI) [Ratio] 38.9 kg/m2 Dr. Jt Membreno Work Phone: [facility] 04-13-2023 08:09-0400 Body height 180.[address] Jt Membreno Work Phone: 2(492)224-863309 [place] [address] 04-13-2023 08:09-0400 Body mass index (BMI) [Ratio] 40.4 kg/m2 Dr. Jt Membreno Work Phone: [facility] 04-13-2023 08:09-0400 Body weight 131.[address] Jt Membreno Work Phone: [facility] 04-13-2023 08:09-0400 Diastolic blood pressure 78 mm[Hg] Dr. Jt Membreno Work Phone: [facility] 04-13-2023 08:09-0400 Respiratory rate 18 /min Dr. Jt Membreno Work Phone: [facility] 04-13-2023 08:09-0400 Systolic blood pressure 137 mm[Hg] Dr. Jt Membreno Work Phone: [facility] 03-13-2023 22:23-0400 Body mass index (BMI) [Ratio] 38.9 kg/m2 Dr. Jt Membreno Work Phone: [facility] 02-12-2023 09:48-0400 Body mass index (BMI) [Ratio] 38.9 kg/m2 Dr. Jt Membreno Work Phone: [facility] 02-10-2023 11:38-0400 Body height 180.[address] Jt Membreno Work Phone: [facility] 02-10-2023 11:38-0400 Body mass index (BMI) [Ratio] 40.1 kg/m2 Dr. Jt Membreno Work Phone: [facility] 02-10-2023 11:38-0400 Body weight 130.[address] Jt Membreno Work Phone: [facility] 02-10-2023 11:38-0400 Diastolic blood pressure 79 mm[Hg] Dr. Jt Membreno Work Phone: [facility] 02-10-2023 11:38-0400 Heart rate 72 /min Dr. Jt Membreno Work Phone: [facility] 02-10-2023 11:38-0400 Respiratory rate 18 /min Dr. Jt Membreno Work Phone: [facility] 02-10-2023 11:38-0400 SaO2% (BldA) [Mass fraction] 95 % Dr. Jt Membreno Work Phone: [facility] 02-10-2023 11:38-0400 Systolic blood pressure 144 mm[Hg] Dr. Jt Membreno Work Phone: [facility] 01-11-2023 01:23-0400 Body mass index (BMI) [Ratio] 38.9 kg/m2 Dr. Jt Membreno Work Phone: [facility] 12-12-2022 23:09-0400 Body mass index (BMI) [Ratio] 38.9 kg/m2 Dr. Jt Membreno Work Phone: [facility] 11-11-2022 23:04-0500 Body mass index (BMI) [Ratio] 38.9 kg/m2 Dr. Jt Membreno Work Phone: [facility] 10-15-2022 08:01-0500 Body mass index (BMI) [Ratio] 38.9 kg/m2 Dr. Jt Membreno Work Phone: [facility] 09-14-2022 03:59-0500 Body mass index (BMI) [Ratio] 38.9 kg/m2 Dr. Jt Membreno Work Phone: [facility] 08-20-2022 07:42-0500 Body height 180.[address] Jt Membreno Work Phone: [facility] 08-20-2022 07:42-0500 Body mass index (BMI) [Ratio] 39.7 kg/m2 Dr. Jt Membreno Work Phone: [facility] 08-20-2022 07:42-0500 Body temperature 97.4 [degF] Dr. Jt Membreno Work Phone: [facility] 08-20-2022 07:42-0500 Body weight 129.[address] Jt Membreno Work Phone: [facility] 08-20-2022 07:42-0500 Diastolic blood pressure 73 mm[Hg] Dr. Jt Membreno Work Phone: [facility] 08-20-2022 07:42-0500 Heart rate 73 /min Dr. Jt Membreno Work Phone: [facility] 08-20-2022 07:42-0500 Respiratory rate 20 /min Dr. Jt Membreno Work Phone: [facility] 08-20-2022 07:42-0500 SaO2% (BldA) [Mass fraction] 97 % Dr. Jt Membreno Work Phone: [facility] 08-20-2022 07:42-0500 Systolic blood pressure 144 mm[Hg] Dr. Jt Membreno Work Phone: [facility] 08-19-2022 16:52-0500 Body temperature 96.7 [degF] Dr. Jt Membreno Work Phone: [facility] 08-19-2022 16:52-0500 Diastolic blood pressure 68 mm[Hg] Dr. Jt Membreno Work Phone: [facility] 08-19-2022 16:52-0500 Heart rate 91 /min Dr. Jt Membreno Work Phone: 2(441)658-779209 [place] [address] 08-19-2022 16:52-0500 Respiratory rate 15 /min Dr. Jt Membreno Work Phone: [facility] 08-19-2022 16:52-0500 SaO2% (BldA) [Mass fraction] 97 % Dr. Jt Membreno Work Phone: [facility] 08-19-2022 16:52-0500 Systolic blood pressure 148 mm[Hg] Dr. tJ Membreno Work Phone: [facility] 08-13-2022 23:15-0500 Body mass index (BMI) [Ratio] 38.9 kg/m2 Dr. Jt Membreno Work Phone: [facility] 08-13-2022 10:55-0500 Body height 180.[address] Jt Membreno Work Phone: [facility] Work Phone: 08-13-2022 10:55-0500 Body mass index (BMI) [Ratio] 40.3 kg/m2 Dr. Jt Membreno Work Phone: [facility] 08-13-2022 10:55-0500 Body weight 131.[address] Jt Membreno Work Phone: [facility] 08-13-2022 10:55-0500 Diastolic blood pressure 72 mm[Hg] Dr. Jt Membreno Work Phone: [facility] 08-13-2022 10:55-0500 Heart rate 84 /min Dr. Jt Membreno Work Phone: [facility] 08-13-2022 10:55-0500 Respiratory rate 16 /min Dr. Jt Membreno Work Phone: [facility] 08-13-2022 10:55-0500 Systolic blood pressure 134 mm[Hg] Dr. Jt Membreno Work Phone: [facility] 07-31-2022 16:49-0500 Body temperature 97.8 [degF] Dr. Jt Membreno Work Phone: [facility] 07-31-2022 16:49-0500 Diastolic blood pressure 78 mm[Hg] Dr. Jt Membreno Work Phone: [facility] 07-31-2022 16:49-0500 Heart rate 86 /min Dr. Jt Membreno Work Phone: [facility] 07-31-2022 16:49-0500 Respiratory rate 18 /min Dr. Jt Membreno Work Phone: [facility] 07-31-2022 16:49-0500 SaO2% (BldA) [Mass fraction] 96 % Dr. Jt Membreno Work Phone: [facility] 07-31-2022 16:49-0500 Systolic blood pressure 150 mm[Hg] Dr. Jt Membreno Work Phone: [facility] 07-22-2022 17:36-0500 Body mass index (BMI) [Ratio] 39.9 kg/m2 Dr. Jt Membreno Work Phone: [facility] 07-22-2022 17:36-0500 Body temperature 97.4 [degF] Dr. Jt Membreno Work Phone: [facility] 07-22-2022 17:36-0500 Body weight 129.[address] Jt Membreno Work Phone: [facility] 07-22-2022 17:36-0500 Diastolic blood pressure 80 mm[Hg] Dr. Jt Membreno Work Phone: [facility] 07-22-2022 17:36-0500 Heart rate 92 /min Dr. Jt Membreno Work Phone: [facility] 07-22-2022 17:36-0500 Respiratory rate 18 /min Dr. Jt Membreno Work Phone: [facility] 07-22-2022 17:36-0500 SaO2% (BldA) [Mass fraction] 97 % Dr. Jt Membreno Work Phone: [facility] 07-22-2022 17:36-0500 Systolic blood pressure 152 mm[Hg] Dr. Jt Membreno Work Phone: [facility] 07-15-2022 09:42-0400 Body mass index (BMI) [Ratio] 38.9 kg/m2 Dr. Jt Membreno Work Phone: [facility] 06-13-2022 21:37-0400 Body mass index (BMI) [Ratio] 38.9 kg/m2 Dr. Jt Membreno Work Phone: [facility] 05-14-2022 23:07-0400 Body mass index (BMI) [Ratio] 38.9 kg/m2 Dr. Jt Membreno Work Phone: [facility] Work Phone: 04-13-2022 02:40-0400 Body mass index (BMI) [Ratio] 38.9 kg/m2 [facility] Work Phone: 03-14-2022 07:05-0400 Body mass index (BMI) [Ratio] 38.9 kg/m2 [facility] Work Phone: 02-11-2022 20:46-0400 Body mass index (BMI) [Ratio] 38.9 kg/m2 Dr. Jt Membreno Work Phone: [facility] Work Phone: 01-21-2022 12:26-0400 Diastolic blood pressure 82 mm[Hg] Dr. Jt Membreno Work Phone: [facility] Work Phone: 01-21-2022 12:26-0400 Heart rate 70 /min Dr. Jt Membreno Work Phone: [facility] Work Phone: 01-21-2022 12:26-0400 Respiratory rate 16 /min Dr. Jt Membreno Work Phone: [facility] Work Phone: 01-21-2022 12:26-0400 SaO2% (BldA) [Mass fraction] 95 % Dr. Jt Membreno Work Phone: [facility] Work Phone: 01-21-2022 12:26-0400 Systolic blood pressure 147 mm[Hg] Dr. Jt Membreno Work Phone: [facility] Work Phone: 01-21-2022 08:35-0400 Body height 180.[address] Jt Membreno Work Phone: [facility] Work Phone: 01-21-2022 08:35-0400 Body mass index (BMI) [Ratio] 41.3 kg/m2 Dr. Jt Membreno Work Phone: [facility] Work Phone: 01-21-2022 08:35-0400 Body temperature 97.6 [degF] Dr. Jt Membreno Work Phone: [facility] Work Phone: 01-21-2022 08:35-0400 Body weight 134.[address] Jt Membreno Work Phone: [facility] Work Phone: 01-12-2022 03:27-0400 Body mass index (BMI) [Ratio] 38.9 kg/m2 Dr. Jt Membreno Work Phone: [facility] Work Phone: 12-13-2021 02:32-0400 Body mass index (BMI) [Ratio] 38.9 kg/m2 Dr. Jt Membreno Work Phone: [facility] Work Phone: 12-08-2021 09:51-0400 Body temperature 96.5 [degF] Dr. Jt Membreno Work Phone: [facility] Work Phone: 12-08-2021 09:51-0400 Diastolic blood pressure 70 mm[Hg] Dr. Jt Membreno Work Phone: [facility] Work Phone: 12-08-2021 09:51-0400 Heart rate 111 /min Dr. Jt Membreno Work Phone: [facility] Work Phone: 12-08-2021 09:51-0400 Respiratory rate 15 /min Dr. Jt Membreno Work Phone: [facility] Work Phone: 12-08-2021 09:51-0400 SaO2% (BldA) [Mass fraction] 96 % Dr. Jt Membreno Work Phone: [facility] Work Phone: 12-08-2021 09:51-0400 Systolic blood pressure 138 mm[Hg] Dr. Jt Membreno Work Phone: [facility] Work Phone: 12-08-2021 09:51-0400 Body temperature 96.5 [degF] Dr. Jt Membreno Work Phone: [facility] Work Phone: 12-08-2021 09:51-0400 Diastolic blood pressure 70 mm[Hg] Dr. Jt Membreno Work Phone: [facility] Work Phone: 12-08-2021 09:51-0400 Heart rate 111 /min Dr. Jt Membreno Work Phone: [facility] Work Phone: 12-08-2021 09:51-0400 Respiratory rate 15 /min Dr. Jt Membreno Work Phone: [facility] Work Phone: 12-08-2021 09:51-0400 SaO2% (BldA) [Mass fraction] 96 % Dr. Jt Membreno Work Phone: [facility] Work Phone: 12-08-2021 09:51-0400 Systolic blood pressure 138 mm[Hg] Dr. Jt Membreno Work Phone: [facility] Work Phone: 11-15-2021 09:03-0500 Body temperature 98.6 [degF] Dr. Jt Membreno Work Phone: [facility] Work Phone: 11-15-2021 09:03-0500 Body weight 131.[address] Jt Membreno Work Phone: [facility] Work Phone: 11-15-2021 09:03-0500 Diastolic blood pressure 77 mm[Hg] Dr. Jt Membreno Work Phone: [facility] Work Phone: 11-15-2021 09:03-0500 Heart rate 70 /min Dr. Jt Membreno Work Phone: [facility] Work Phone: 11-15-2021 09:03-0500 Respiratory rate 17 /min Dr. Jt Membreno Work Phone: [facility] Work Phone: 11-15-2021 09:03-0500 SaO2% (BldA) [Mass fraction] 97 % Dr. Jt Membreno Work Phone: [facility] Work Phone: 11-15-2021 09:03-0500 Systolic blood pressure 129 mm[Hg] Dr. Jt Membreno Work Phone: [facility] Work Phone: 11-15-2021 08:03-0500 Body height 180.[address] Jt Membreno Work Phone: [facility] Work Phone: 11-15-2021 08:03-0500 Body temperature 98.6 [degF] Dr. Jt Membreno Work Phone: [facility] Work Phone: 11-15-2021 08:03-0500 Body weight 131.[address] Jt Membreno Work Phone: [facility] Work Phone: 11-15-2021 08:03-0500 Diastolic blood pressure 77 mm[Hg] Dr. Jt Membreno Work Phone: [facility] Work Phone: 11-15-2021 08:03-0500 Heart rate 70 /min Dr. Jt Membreon Work Phone: [facility] Work Phone: 11-15-2021 08:03-0500 Respiratory rate 17 /min Dr. Jt Membreno Work Phone: [facility] Work Phone: 11-15-2021 08:03-0500 SaO2% (BldA) [Mass fraction] 97 % Dr. Jt Membreno Work Phone: [facility] Work Phone: 11-15-2021 08:03-0500 Systolic blood pressure 129 mm[Hg] Dr. Jt Membreno Work Phone: [facility] Work Phone: 11-12-2021 09:45-0500 Body mass index (BMI) [Ratio] 38.9 kg/m2 Dr. Jt Membreno Work Phone: [facility] Work Phone: 11-12-2021 08:45-0500 Body mass index (BMI) [Ratio] 38.9 kg/m2 Dr. Jt Membreno Work Phone: [facility] Work Phone: 10-25-2021 10:09-0500 Body mass index (BMI) [Ratio] 41 kg/m2 Dr. Jt Membreno Work Phone: [facility] Work Phone: 10-25-2021 10:09-0500 Body weight 133.[address] Jt Membreno Work Phone: [facility] Work Phone: 10-25-2021 10:09-0500 Diastolic blood pressure 74 mm[Hg] Dr. Jt Membreno Work Phone: [facility] Work Phone: 10-25-2021 10:09-0500 Heart rate 72 /min Dr. Jt Membreno Work Phone: [facility] Work Phone: 10-25-2021 10:09-0500 Respiratory rate 16 /min Dr. Jt Membreno Work Phone: [facility] Work Phone: 10-25-2021 10:09-0500 Systolic blood pressure 122 mm[Hg] Dr. Jt Membreno Work Phone: [facility] Work Phone: 10-15-2021 00:15-0500 Body mass index (BMI) [Ratio] 38.9 kg/m2 Dr. Jt Membreno Work Phone: [facility] Work Phone: 09-15-2021 03:24-0500 Body mass index (BMI) [Ratio] 38.9 kg/m2 Dr. Jt Membreno Work Phone: [facility] Work Phone: 08-14-2021 02:25-0500 Body mass index (BMI) [Ratio] 38.9 kg/m2 Dr. Jt Membreno Work Phone: [facility] Work Phone: 11-13-2020 14:02-0500 Body mass index (BMI) [Ratio] 38.9 kg/m2 Dr. Jt Membreno Work Phone: [facility] Work Phone: 11-13-2020 13:02-0500 Body mass index (BMI) [Ratio] 38.9 kg/m2 Dr. Jt Membreno Work Phone: [facility] Work Phone: Encounters Encounter Date Encounter Type Care Provider Facility Start: 03-24-2025 ambulatory Jt Membreno Facilit y:[facility] Start: 03-14-2025 End: 03-14-2025 Orders Only Ernesto Aguiar MD Work Phone: Colorectal Surgery Comment on above: Malignant neoplasm o f rectum (HCC) (Primary Dx) Start: 02-28-2025 ambulatory Jt Membreno Facilit y:[facility] Start: 02-03-2025 End: 02-03-2025 ambulatory Jt Membreno Facility:[facility] Start: 01-20-2025 End: 01-20-2025 ambulatory Jt Membreno Facility:[facility] Start: 01-16-2025 End: 01-16-2025 ambulatory JT MEMBRENO [facility] Start: 01-12-2025 End: 01-12-2025 ambulatory JT MEMBRENO Facility:[facility] Start: 01-12-2025 End: 01-12-2025 ambulatory Jt Membreno Facility:[facility] Start: 01-10-2025 End: 01-10-2025 Orders Only Ernesto Aguiar MD Work Phone: Colorectal Surgery Comment on above: Rectal cancer (HCC) (Primary Dx); Malignant neoplasm of rectum (HCC) Rectal cancer (HCC) (Primary Dx) Start: 01-02-2025 End: 01-02-2025 ambulatory JT MEMBRENO Facility:[facility] Start: 12-30-2024 End: 12-30-2024 ambulatory Jt Membreno Facility:[facility] Start: 12-19-2024 End: 12-19-[address] Andre Quesada MD -[facility] Work Phone: Start: 12-19-2024 End: 12-19-2024 ambulatory Jt Membreno Facility[facility] Start: 12-14-2024 End: 12-14-[address] Jt Membreno MD Work Phone: [facility] Work Phone: Start: 12-14-2024 End: 12-14-[address] Jt Membreno MD -Laboratory, [facility] Start: 12-14-2024 End: 12-14-2024 ambulatory Jt Membreno Facility:[facility] Start: 12-09-2024 End: 12-09-[address] Jt Membreno MD Work Phone: [facility] Work Phone: Start: 12-09-2024 End: 12-09-[address] Jt Membreno MD -Laboratory, [facility] Start: 12-08-[address] Cameron Paulino on [facility] Start: 12-08-2024 End: 12-08-[address] Cameron Childers [facility] Work Phone: Start: 12-08-2024 End: 12-09-2024 ambulatory Jt Membreno Facility:[facility] Start: 12-01-2024 End: 12-01-[address] Jt Membreno MD Work Phone: [facility] Work Phone: Start: 12-01-2024 End: 12-01-[address] Watson Rodriguez MD -Laboratory, [facility] Start: 12-01-2024 End: 12-01-2024 [facility] Start: 11-16-[address] Cameron Paulino on -[facility] Start: 11-10-2024 End: 11-10-2024 Telephone encounter Ernesto Aguiar MD Work Phone: Colorectal Surgery Comment on above: Results Start: 11-07-2024 End: 11-07-[address] Watson Rodriguez MD -Laboratory, [facility] Start: 11-07-2024 End: 11-07-2024 [facility] Start: 11-04-2024 End: 11-04-2024 Office outpatient visit 25 minutes Chetnaerick Bellnick [facility] Work Phone: [facility] [place] Comment on above: Paroxysmal atrial fi brillation (HCC) (Primary Dx); CORRINA (obstructive sleep apnea); Primary hypertension Start: 11-04-2024 End: 11-04-2024 ambulatory CHETNAERICK BELLONOUGH [facility] Start: 10-25-2024 End: 10-25-2024 ambulatory JT MEMBRENO Facility:[facility] Start: 10-25-2024 End: 10-25-2024 Subsequent hospital visit by physician Ct Prep [facility] Cat Scan Comment on above: Malignant neoplasm o f rectum (HCC) [C20] Start: 10-24-2024 End: 10-24-2024 Telephone encounter Maryann Maier RN Colorectal Surgery Start: 10-21-2024 End: 10-21-2024 Admission to same day surgery center Estela Avitia MD Work Phone: Colorectal Surgery Start: 10-21-2024 End: 10-21-2024 ambulatory Estela Avitia MD Work Phone: Colorectal Surgery Start: 10-19-2024 End: 10-19-2024 Patient encounter procedure Jt Bird FIELD REP-C -Medical Out Work Phone: Start: 10-19-2024 End: 10-19-2024 [facility] Start: 10-18-2024 End: 10-18-2024 Orders Only Ernesto Aguiar MD Work Phone: Colorectal Surgery Comment on above: Rectal cancer (HCC) (Primary Dx) Start: 10-17-2024 End: 10-17-2024 ambulatory [facility] Facility:[facility] Start: 10-17-2024 End: 10-17-2024 Subsequent hospital visit by physician Mri Radio [facility] (I-Stat/1.5t) Work Phone: Radiology Comment on above: Malignant neoplasm o f rectum (HCC) [C20] Start: 10-14-2024 End: 10-26-2024 ambulatory Ulcio Louden RHEUMATOLOGIST.CLINICAL LAB SCIENTIST Work Phone: [facility] Start: 10-14-2024 End: 10-26-2024 Patient encounter procedure Lucio Louden RHEUMATOLOGIST.CLINICAL LAB SCIENTIST Work Phone: [facility] Comment on above: [employer] Start: 10-10-2024 End: 10-24-2024 Refill Lucio Louden RHEUMATOLOGIST.CLINICAL LAB SCIENTIST Work Phone: [facility] Comment on above: Med Change Request Start: 10-10-2024 End: 10-17-2024 ambulatory Lucio Louden RHEUMATOLOGIST.CLINICAL LAB SCIENTIST Work Phone: [facility] Start: 10-10-2024 End: 10-17-2024 Patient encounter procedure Lucio Louden RHEUMATOLOGIST.CLINICAL LAB SCIENTIST Work Phone: [facility] Comment on above: Obesity, unspecified class, unspecified obesity type, unspecified whether serious comorbidity present (Primary Dx); CORRINA (obstructive sleep apnea); Obesity, Class III, BMI >= 40 [employer] Start: 10-04-2024 End: 10-04-[address] [facility] Start: 10-04-2024 End: 10-04-2024 Subsequent hospital visit by physician Aylin Henry MD Work Phone: [facility] Comment on above: Paroxysmal atrial fi brillation (HCC) Start: 09-27-2024 End: 09-27-2024 Telephone encounter Jonna Sierra RHEUMATOLOGIST - CLINICAL LAB SCIENTIST Work Phone: [facility] Start: 09-27-2024 End: 09-27-[address] Jt Membreno MD Work Phone: -[facility] Start: 09-27-2024 End: 09-27-2024 ambulatory Jt Membreno Facility:[facility] Start: 09-26-2024 End: 09-26-2024 Telephone encounter Ernesto Aguiar MD Work Phone: Colorectal Surgery Comment on above: Patient Update Start: 09-23-2024 ambulatory Jt Membreno Facilit y:[facility] Start: 09-23-2024 Non-patient / Non-visit Dr. Linn Boyd MD -[facility] Start: 09-23-2024 End: 09-23-[address] Jt Membreno MD -Cardiovascular Services Work Phone: Start: 09-23-2024 End: 09-23-2024 ambulatory Jt Membreno Facility:[facility] Start: 09-20-2024 End: 09-20-[address] Watson Rodriguez MD -[facility] Start: 09-20-2024 End: 09-20-2024 ambulatory Watson Rodriguez Facility:[facility] Start: 09-13-2024 End: 09-13-2024 ambulatory JT MEMBRENO Facility:[facility] Start: 09-13-2024 End: 09-13-2024 ambulatory JT MEMBRENO Facility:[facility] Start: 09-13-2024 End: 09-13-2024 Patient encounter procedure Ernesto Aguiar MD Work Phone: Colorectal Surgery Comment on above: Malignant neoplasm o f rectum (HCC) (Primary Dx); Obesity, unspecified class, unspecified obesity type, unspecified whether serious comorbidity present Start: 09-05-2024 End: 09-06-2024 Telephone encounter Meet Netta Henry MD Work Phone: [facility] Comment on above: Procedure (PVI (Jazzmine on)) Start: 09-05-2024 End: 09-05-2024 Office outpatient new 45 minutes Josh Lr MD Work Phone: [facility] Comment on above: Atrial fibrillation, unspecified type (HCC) Start: 09-05-2024 End: 09-05-2024 ambulatory Chetna Solomon RHEUMATOLOGIST - CLINICAL LAB SCIENTIST Work Phone: [facility] Start: 08-24-2024 End: 08-24-[address] Watson Rodriguez MD -Medical Out Work Phone: Start: 08-24-2024 End: 08-24-2024 ambulatory Watson Rodriguez Facility:[facility] Start: 08-22-2024 End: 08-22-[address] Jt Membreno MD -Ultrasound, [facility] Work Phone: Start: 08-22-2024 End: 08-22-2024 ambulatory Jt Membreno Facility:[facility] Start: 08-14-2024 ambulatory Jt Membreno Facilit y:[facility] Start: 08-10-2024 End: 08-10-[address] Jt Membreno MD -Laboratory, [facility] Start: 08-10-2024 End: 08-10-2024 ambulatory Jt Membreno Facility:[facility] Start: 08-03-2024 End: 08-03-2024 ambulatory Jt Membreno Facility:[facility] Start: 08-03-2024 End: 08-13-2024 ambulatory Jt Membreno Facility:[facility] Start: 07-14-2024 End: 07-14-2024 ambulatory Jt Membreno Facility:[facility] Start: 06-27-2024 End: 06-27-2024 ambulatory Jt Membreno Facility:[facility] Start: 06-09-2024 End: 06-13-2024 ambulatory [facility] Facility:[facility] Start: 05-23-2024 End: 05-23-2024 ambulatory [facility] Facility:[facility] Start: 05-20-2024 End: 05-20-2024 Telephone encounter Maryann Maier RN Colorectal Surgery Start: 05-17-2024 End: 05-17-2024 Orders Only Ernesto Aguiar MD Work Phone: Colorectal Surgery Comment on above: Rectal cancer (HCC) (Primary Dx) Start: 05-13-2024 End: 05-13-2024 Telephone encounter Ernesto Aguiar MD Work Phone: Colorectal Surgery Comment on above: Patient Update Start: 05-03-2024 End: 05-03-2024 ambulatory [facility] Facility:[facility] Start: 04-27-2024 End: 04-27-2024 ambulatory [facility] Facility:[facility] Start: 04-27-2024 End: 04-27-2024 [facility] Start: 04-21-2024 End: 04-21-2024 ambulatory [facility] Facility:[facility] Start: 04-21-2024 End: 04-21-2024 Subsequent hospital visit by physician Mri [employer] [facility] (I-Stat/1.5t/3t) Work Phone: MRI Q Comment on above: Malignant neoplasm o f rectum (HCC) [C20] Start: 04-19-2024 Telephone encounter Ernesto Cornell MD Work Phone: Colorectal Surgery Comment on above: Patient Question Start: 04-19-2024 End: 04-19-2024 ambulatory Jt Yousif Cristinaruth ann Facility:[facility] Start: 04-18-2024 Orders Only Ernesto Aguiar MD [...] neoplasm o f rectum (HCC) [C20] Start: 2024 End: 2024 ambulatory Jt Yousif Membreno Facility:[facility] Start: 04-08-2024 End: 04-08-2024 ambulatory [facility] Facility:[facility] Start: 04-03-2024 End: 04-03-2024 [facility] Start: 03-28-2024 End: 03-28-2024 ambulatory [facility] Facility:[facility] Start: 03-25-2024 Orders Only Ernesto Aguiar MD Work Phone: Colorectal Surgery Comment on above: Malignant neoplasm o f rectum (HCC) (Primary Dx) Start: 03-23-2024 End: 03-23-2024 Emergency department [facility] Facility:[facility] Start: 03-01-2024 End: 03-01-[facility] Start: 03-01-2024 End: 03-01-2024 Patient encounter procedure Ernesto Aguiar MD Work Phone: Colorectal Surgery Comment on above: Rectal cancer (HCC) (Primary Dx) Start: 12-30-2023 End: 01-12-[address] Jt Membreno Work Phone: [facility] Work Phone: Start: 12-30-2023 End: 01-12-2024 Dr. Jt Membreno Work Phone: [facility]-Laboratory Work Phone: Start: 12-23-2023 End: 12-23-2023 Dr. Jt Membreno Work Phone: [facility] Work Phone: Start: 12-15-2023 End: 12-15-2023 Dr. Jt Membreno Work Phone: [facility] Work Phone: Start: 12-10-2023 End: 12-12-[address] Jt Membreno Work Phone: [facility] Work Phone: Start: 12-10-2023 End: 12-12-2023 Dr. Jt Membreno Work Phone: [facility]-Laboratory Work Phone: Start: 12-03-2023 End: 12-03-2023 Emergency department patient visit Dr. Jt Membreno Work Phone: [facility] Work Phone: Start: 12-03-2023 End: 12-03-2023 Dr. Jt Membreno Work Phone: [facility]-Emergency Department Work Phone: Start: 11-27-2023 End: 11-27-2023 Dr. Jt Membreno Work Phone: [facility] Work Phone: Start: 11-20-2023 End: 11-20-[address] Jt Membreno Work Phone: [facility] Work Phone: Start: 11-20-2023 End: 11-20-2023 Dr. Jt Membreno Work Phone: [facility]-Nuclear Medicine, [facility] Work Phone: Start: 11-18-2023 Telephone encounter Maryann Rothman) Danielle grier RN Colorectal Surgery Start: 11-18-2023 Dr. Jt lin Work Phone: [facility] Start: 11-17-2023 End: 11-17-2023 Patient encounter procedure Ernesto Aguiar MD Work Phone: Colorectal Surgery Comment on above: Rectal cancer (HCC) (Primary Dx) Start: 11-12-2023 End: 11-13-2023 Evaluation and management of inpatient Dr. Jt Membreno Work Phone: [facility] Work Phone: Start: 11-12-2023 End: 11-13-2023 Dr. Jt [facility] Work Phone: Start: 11-11-[address] Jt Membreno Work Phone: [facility] Work Phone: Start: 11-11-2023 Dr. Jt lin [facility] Work Phone: Start: 11-10-2023 End: 11-12-[address] Jt Membreno Work Phone: [facility] Work Phone: Start: 11-10-2023 End: 11-12-2023 Dr. Jt Membreno Work Phone: [facility]-Laboratory Work Phone: Start: 11-09-2023 End: 11-09-2023 Dr. Jt Membreno Work Phone: [facility] Work Phone: Start: 11-08-2023 Orders Only Ernesto Aguiar MD Work Phone: Colorectal Surgery Comment on above: Rectal cancer (HCC) (Primary Dx) Start: 11-04-2023 End: 11-04-2023 Subsequent hospital visit by physician Mri Radio [facility] (I-Stat/1.5t) Work Phone: Radiology Comment on above: Malignant neoplasm o f rectum (HCC) [C20] Start: 11-02-2023 Telephone encounter Ricki Nazario Juany billingsley DO Work Phone: Hematology/Oncology Comment on above: Appointment Start: 11-02-2023 End: 11-02-2023 Dr. Jt Membreno Work Phone: [facility] Work Phone: Start: 10-29-2023 End: 10-29-2023 Dr. Jt Membreno Work Phone: [facility] Work Phone: Start: 10-29-2023 End: 10-29-[address] Jt Membreno Work Phone: [facility] Work Phone: Start: 10-29-2023 End: 10-29-2023 Dr. Jt Membreno Work Phone: [facility], [facility] Work Phone: Start: 10-28-2023 Telephone encounter Ernesto Cornell MD Work Phone: Colorectal Surgery Comment on above: Patient Update Malignant neoplasm o f rectum (HCC) (Primary Dx) Start: 10-27-2023 End: 10-27-2023 Dr. Jt Membreno Work Phone: [facility] Work Phone: Start: 10-26-2023 Telephone encounter Ernesto Cornell MD Work Phone: Colorectal Surgery Start: 10-25-2023 End: 10-25-2023 Emergency department patient visit Dr. Jt Membreno Work Phone: [facility] Work Phone: Start: 10-25-2023 End: 10-25-2023 Dr. Jt Membreno Work Phone: [facility]-Emergency Department Work Phone: Start: 10-12-2023 End: 10-12-2023 Dr. Jt Membreno Work Phone: [facility] Work Phone: Start: 10-05-2023 End: 10-05-2023 Dr. Jt Membreno Work Phone: [facility] Work Phone: Start: 09-21-2023 End: 09-21-2023 Dr. Jt Membreno Work Phone: [facility] Work Phone: Start: 09-15-2023 End: 09-15-2023 Dr. Jt Membreno Work Phone: [facility] Work Phone: Start: 09-04-2023 End: 09-04-[address] Jt Membreno [facility] Phone: [facility] [facility] Work Phone: Start: 09-04-2023 End: 09-04-2023 Dr. Jt Membreno Work Phone: [facility] Work Phone: Start: 08-31-2023 End: 08-31-2023 Dr. Jt Membreno Work Phone: [facility] Work Phone: Start: 08-24-2023 End: 08-24-2023 Dr. Jt Membreno Work Phone: [facility] Work Phone: Start: 08-18-2023 End: 09-13-[address] Jt Membreno Work Phone: [facility] Work Phone: Start: 08-18-2023 End: 09-13-2023 Dr. Jt Membreno Work Phone: [facility]Laboratory Work Phone: Start: 08-10-2023 End: 08-10-2023 Dr. Jt Membreno Work Phone: [facility] Work Phone: Start: 08-04-2023 End: 08-04-2023 Patient encounter procedure Ernesto Aguiar MD Work Phone: Colorectal Surgery Comment on above: Rectal cancer (HCC) (Primary Dx) Start: 08-03-2023 End: 08-03-[address] Jt Membreno Work Phone: [facility] Work Phone: Start: 08-03-2023 End: 08-03-2023 Dr. Jt Membreno Work Phone: [facility]Surgical Day Care Start: 07-29-2023 End: 07-29-2023 Dr. Jt Membreno Work Phone: [facility] Work Phone: Start: 07-28-2023 End: 07-28-2023 Dr. Jt Membreno Work Phone: [facility] Work Phone: Start: 07-27-2023 Telephone encounter Jonna rubio PA-C Work Phone: Colorectal Surgery Comment on above: Results (CT chest/ab d/pel results) Start: 07-27-2023 End: 07-27-2023 Subsequent hospital visit by physician Ct [facility] (I-Stat) Work Phone: Cat Scan Comment on above: Malignant neoplasm o f rectum (HCC) [C20] Start: 07-19-2023 End: 07-19-2023 Emergency department patient visit Dr. Jt Membreno Work Phone: [facility] Work Phone: Start: 07-19-2023 End: 07-19-2023 Dr. Jt Membreno Work Phone: [facility]Emergency Department Work Phone: Start: 07-17-2023 Dr. Jt lin Work Phone: [facility] Start: 07-16-2023 Dr. Jt lin Work Phone: [facility] Start: 07-15-2023 Dr. Jt lin Work Phone: [facility] Start: 07-15-2023 End: 07-17-2023 Evaluation and management of inpatient Dr. Jt Membreno [facility] Work Phone: Start: 07-15-2023 End: 07-17-2023 Dr. Jt Membreno Work Phone: [facility] Work Phone: Start: 07-15-2023 Telephone encounter Kesha Quinn RN C olorectal Surgery Comment on above: Care Coordination Start: 07-14-2023 End: 07-14-[address] Jt Membreno Work Phone: [facility] Work Phone: Start: 07-14-2023 End: 07-14-[address] Jt Membreno Work Phone: [facility] Work Phone: Start: 07-14-2023 End: 07-14-2023 Dr. Jt Membreno [facility]: Start: 07-13-2023 End: 07-13-2023 Subsequent hospital visit by physician [employer] [facility] (I-Stat/1.5t) Work Phone: Radiology Comment on above: Malignant neoplasm o f rectum (HCC) [C20] Start: 07-12-2023 End: 07-12-2023 Emergency department patient visit Dr. Jt Membreno Work Phone: [facility]Emergency Department Work Phone: Start: 07-12-2023 End: 07-12-2023 Dr. Jt Membreno Work Phone: [facility]Emergency Department Work Phone: Start: 07-08-2023 Telephone encounter Ernesto Cornell MD Work Phone: Colorectal Surgery Comment on above: Patient Question Start: 07-07-[address] Jt Membreno Work Phone: [facility]Radiation Oncology Start: 07-07-2023 End: 07-07-[address] Jt Membreno Work Phone: [facility] Work Phone: Start: 07-07-2023 End: 07-07-2023 Dr. Jt Membreno Work Phone: [facility] Work Phone: Start: 07-03-2023 Telephone encounter Kesha Quinn RN C olorectal Surgery Comment on above: Patient Question; Ca re Coordination Start: 07-01-2023 End: 07-01-[address] Jt Membreno Work Phone: [facility] Work Phone: Start: 07-01-2023 End: 07-01-2023 Dr. Jt Membreno Work Phone: [facility] Work Phone: Start: 06-30-2023 End: 06-30-[address] Jt Membreno Work Phone: [facility] Work Phone: Start: 06-30-2023 End: 06-30-2023 Dr. Jt Membreno Work Phone: [facility] Work Phone: Start: 06-25-[address] Jt Membreno Work Phone: [facility]Radiation Oncology Start: 06-24-2023 End: 06-24-[address] Jt Membreno Work Phone: [facility] Work Phone: Start: 06-24-2023 End: 06-24-2023 Dr. Jt Membreno Work Phone: [facility] Work Phone: Start: 06-23-2023 End: 06-23-[address] Jt Membreno Work Phone: [facility] Work Phone: Start: 06-23-2023 End: 06-23-2023 Dr. Jt Membreno Work Phone: [facility] Work Phone: Start: 06-22-2023 End: 06-22-[address] Jt Membreno Work Phone: [facility] Work Phone: Start: 06-22-2023 End: 06-22-[address] Jt Mem[facility]reno [facility] Work Phone: Start: 06-22-2023 End: 06-22-2023 Dr. Jt Membreno [facility] Phone[facility] Work Phone: Start: 06-22-2023 End: 06-22-[address] Jt Membreno Work Phone: [facility] Work Phone: Start: 06-22-2023 End: 06-22-2023 Dr. Jt Membreno Work Phone: [facility] Work Phone: Start: 06-17-2023 End: 06-17-[address] Jt Membreno Work Phone: [facility] Work Phone: Start: 06-17-2023 End: 06-17-2023 Dr. J[facility]ren[facility] Work [facility]: Start: 06-16-2023 End: 06-16-[address] Jt Membreno Work Phone[facility] Work Phone: Start: 06-16-2023 End: 06-16-2023 Dr. Jt Membreno Work Phone: [facility] Work Phone: Start: 06-10-2023 End: 06-10-[address] Jt Membreno Work Phone[facility] Work Phone: Start: 06-10-2023 End: 06-10-2023 Dr. Jt Membreno Work Phone: [facility] Work Phone: Start: 06-09-2023 End: 06-09-[address] Jt Membreno Work Phone[facility] Work Phone: Start: 06-09-2023 End: 06-09-2023 Dr. Jt Membreno Work Phone: [facility] Work Phone: Start: 06-03-2023 End: 06-03-[address] Jt Membreno Work Phone: [facility] Work Phone: Start: 06-03-2023 End: 06-03-2023 Dr. Jt Membreno Work Phone: [facility] Work Phone: Start: 06-01-2023 End: 06-01-[address] Jt Membreno Work Phone: [facility] Work Phone: Start: 06-01-2023 End: 06-01-2023 Dr. Jt Membreno Work Phone: [facility] Work Phone: Start: 05-28-2023 End: 05-28-[address] Jt Membreno Work Phone: [facility] Work Phone: Start: 05-28-2023 End: 05-28-2023 Dr. Jt Membreno Work Phone: [facility] Work Phone: Start: 05-28-2023 End: 05-28-[address] Jt Mem[facility]reno [facility]: Start: 05-28-2023 End: 05-28-2023 Dr. Jt Membreno [facility] Phone[facility]: Start: 05-26-2023 Non-patient / Non-visit Dr. Luzmaria Membreno Work Phone: [facility] Start: 05-26-2023 Dr. Jt lin Work Phone: [facility] Start: 05-25-2023 Telephone encounter Kesha Quinn RN C olorectal Surgery Start: 05-25-[address] Jt Membreno Work Phone: [facility] Start: 05-25-2023 End: 05-25-[address] Jt Membreno Work Phone: [facility] Work Phone: Start: 05-25-2023 End: 05-25-2023 Dr. Jt Membreno Work Phone: [facility] Work Phone: Start: 05-21-2023 Non-patient / Non-visit Dr. Luzmaria Membreno Work Phone: [facility] Work Phone: Start: 05-21-2023 Dr. Jt lin Work Phone: [facility] Work Phone: Start: 05-21-2023 Non-patient / Non-visit Dr. Luzmaria Membreno Work Phone: [facility] Start: 05-21-2023 Dr. Jt lin Work Phone: [facility] Start: 05-21-[address] Jt Membreno Work Phone: [facility] Start: 05-20-2023 End: 05-20-[address] Jt Membreno Work Phone: [facility] Work Phone: Start: 05-20-2023 End: 05-20-[address] Jt Membreno Work Phone: [facility] Work Phone: Start: 05-20-2023 End: 05-20-2023 Dr. Jt Membreno Work Phone: [facility] Work Phone: Start: 05-14-2023 End: 05-14-[address] Jt Membreno Work Phone: [facility] Work Phone: Start: 05-14-2023 End: 05-14-2023 Dr. Jt Membreno Work Phone: [facility] Work Phone: Start: 05-13-2023 Non-patient / Non-visit Dr. Luzmaria Membreno Work Phone: [facility] Start: 05-13-2023 End: 05-13-[address] Jt Membreno Work Phone: [facility] Work Phone: Start: 05-13-2023 End: 05-13-[address] Jt Membreno Work Phone: [facility]Cardiovascul [facility] Services Work Phone: Start: 05-13-2023 End: 05-13-2023 Dr. Jt Membreno Work Phone: [facility] Start: 05-11-[address] Jt Membreno Work Phone: [facility]Radiation Oncology Start: 05-11-2023 End: 05-11-[address] Jt Membreno Work Phone: [facility] Work Phone: Start: 05-11-2023 End: 05-11-2023 Dr. Jt Membreno Work Phone: [facility] Work Phone: Start: 05-07-2023 End: 05-07-[address] Jt Membreno Work Phone: [facility] Work Phone: Start: 05-07-2023 End: 05-07-2023 Dr. Jt Membreno Work Phone: [facility] Work Phone: Start: 05-05-2023 End: 05-05-[address] Jt Membreno Work Phone: [facility] Work Phone: Start: 05-05-2023 End: 05-05-[address] Jt Membreno Work Phone: [facility] Work [facility]: Start: 05-05-2023 End: 05-05-2023 Dr. Jt Membreno Work Phone: [facility] Work Phone: Start: 05-05-2023 Non-patient / Non-visit Dr. Luzmaria Membreno Work Phone: [facility] Start: 05-05-2023 End: 05-05-2023 Admission to same day surgery center Dr. Jt Membreno Work Phone: [facility]-Endoscopy Work Phone: Start: 05-05-2023 End: 05-05-[address] Jt Membreno Work Phone: [facility] Work Phone: Start: 05-05-2023 End: 05-05-2023 Dr. Jt Membreno Work Phone: [facility]Endoscopy Work Phone: Start: 04-13-2023 End: 04-13-[address] Jt Membreno Work Phone: [facility] Work Phone: Start: 04-13-2023 End: 04-13-2023 Dr. Jt Membreno Work Phone: [facility] Work Phone: Start: 04-01-2023 End: 04-13-[address] Jt Membreno Work Phone: [facility] Work Phone: Start: 04-01-2023 End: 04-13-[address] Jt Membreno Work Phone: [facility] Work Phone: Start: 04-01-2023 End: 04-13-2023 Dr. Jt Membreno Work Phone: [facility] Work Phone: Start: 03-24-2023 End: 03-24-[address] Jt Membreno Work Phone: [facility]-Physical Therapy Work Phone: Start: 03-24-[address] Jt Membreno Work Phone: [facility] Work Phone: Start: 03-24-2023 End: 03-24-2023 Dr. Jt Membreno Work Phone: [facility] Work Phone: Start: 03-10-[address] Jt Membreno Work Phone: [facility]Physical Therapy Work Phone: Start: 03-10-2023 End: 03-10-[address] Jt Membreno Work Phone: [facility] Work Phone: Start: 03-10-2023 End: 03-10-[address] Jt Membreno Work Phone: [facility] Work Phone: Start: 02-26-2023 End: 02-26-[address] Jt Membreno Work Phone: [facility] Work Phone: Start: 02-10-2023 End: 02-11-[address] Jt Membreno Work Phone: [facility] Work Phone: Start: 02-10-2023 End: 02-11-[address] Jt Membreno Work Phone: [facility] Start: 02-10-2023 End: 02-10-[address] Jt Membreno Work Phone: [facility] Start: 01-09-2023 End: 01-11-[address] Jt Membreno Work Phone: [facility] Start: 12-12-2022 End: 12-12-[address] Jt Membreno Work Phone: [facility] Work Phone: Start: 12-12-2022 End: 12-12-[address] Jt Membreno Work Phone: [facility] Start: 12-03-2022 End: 12-03-[address] Jt Membreno Work Phone: [facility] Start: 11-28-[address] Jt Membreno Work Phone: [facility] Start: 11-25-2022 End: 11-25-[address] Jt Membreno Work Phone: [facility] Work Phone: Start: 11-25-2022 End: 11-25-[address] Jt Membreno Work Phone: [facility] Start: 10-29-2022 End: 10-29-[address] Jt Membreno Work Phone: [facility] Start: 10-29-[address] Jt Membreno Work Phone: [facility] Start: 10-21-2022 End: 10-21-[address] Jt Membreno Work Phone: [facility] Work Phone: Start: 10-21-2022 End: 10-21-[address] Jt Membreno Work Phone: [facility]-Radiology, [facility] Start: 09-30-2022 End: 09-30-[address] Jt Membreno Work Phone: [facility] Work Phone: Start: 09-30-2022 End: 09-30-[address] Jt Membreno Work Phone: [facility] Start: 08-29-2022 End: 08-29-[address] Jt Membreno Work Phone: [facility] Work Phone: Start: 08-29-2022 End: 08-29-[address] Jt Membreno Work Phone: [facility]Labor[facility] Start: 08-20-2022 End: 08-20-[address] Jt Membreno Work Phone: [facility]-Pulmonary Medicine [facility] Start: 08-19-2022 End: 08-19-[address] Jt Membreno Work Phone: [facility] Start: 08-13-2022 End: 08-13-[address] Jt Membreno Work Phone: [facility] Start: 07-31-2022 End: 07-31-[address] Jt Membreno Work Phone: [facility] Start: 07-23-2022 End: 08-13-[address] Jt Membreno Work Phone: [facility] Work Phone: Start: 07-23-2022 End: 08-13-[address] Jt Membreno Work Phone: [facility] Start: 07-22-2022 End: 07-22-[address] Jt Membreno Work Phone: [facility] Start: 06-24-2022 End: 06-24-[address] Jt Membreno Work Phone: [facility] Work Phone: Start: 06-24-2022 End: 06-24-[address] Jt Membreno Work Phone: [facility] Start: 05-28-2022 End: 05-28-[address] Jt Membreno Work Phone: [facility] Work Phone: Start: 05-28-2022 End: 05-28-[address] Jt Membreno [facility] Start: 05-21-2022 End: 05-21-[address] Jt Membreno Work Phone: [facility] Start: 05-06-2022 End: 05-06-2022 ambulatory [facility] Work Phone: Start: 05-06-2022 End: 05-06-2022 Patient encounter procedure [facility] Start: 04-28-2022 End: 04-28-2022 ambulatory [facility] Work Phone: Start: 04-28-2022 End: 04-28-2022 Discharged Recurring [facility] Start: 04-28-2022 [facility] Start: 03-21-2022 End: 04-13-2022 Discharged Recurring [facility] Start: 02-19-2022 End: 02-19-[address] Jt Membreno [facility] Start: 01-21-2022 End: 01-21-2022 Emergency department patient visit Dr. Jt Membreno Work Phone: [facility]Emergency Department Start: 01-21-2022 End: 01-21-[address] Jt Membreno [facility] Start: 01-21-[address] Jt Membreno [facility] Start: 01-08-2022 End: 01-08-[address] Jt Membreno [facility] Start: 12-11-2021 End: 12-12-[address] Jt Membreno [facility] Start: 12-08-2021 End: 12-08-[address] Jt Membreno Work Phone: [facility] Start: 11-15-2021 End: 11-15-[address] Jt Membreno [facility] Start: 11-04-2021 End: 11-04-[address] Jt Membreno [facility] Start: 10-25-2021 End: 10-25-[address] Jt Membreno Work Phone: [facility] Start: 10-04-2021 End: 10-14-[address] Jt Membreno [facility] Start: 09-04-2021 End: 09-04-[address] Jt Membreno Work Phone: [facility] Start: 09-04-2021 End: 09-14-[address] Jt Membreno Work Phone: [facility] Start: 09-04-2021 Non-patient / Non-visit Dr. Luzmaria Membreno Work Phone: [facility] Start: 06-23-2017 End: 06-24-2017 Ambulatory DEANNA ACKERMAN Facility:B Procedures Date Procedure Procedure Detail Performing Clinician Start: 12-08-[address] Jt jiang MD Work Phone: Comment on above: Nonsmokers <3.9 Smokers <5.6[employer] Electrochemiluminescence Immunoassay(ECLIA)Values obtained with different assay methods or kitscannot be used interchangeably. Results cannot beinterpreted as absolute evidence of the presence orabsence of malignant disease.Performed at: [id number] [address] [id number] Director: Ed Ramirez PhD, Phone: [phone] Start: 11-16-[address] Jt jiang MD Work Phone: Comment on above: Nonsmokers <3.9 Smokers <5.6[employer] Electrochemiluminescence Immunoassay(ECLIA)Values obtained with different assay methods or kitscannot be used interchangeably. Results cannot beinterpreted as absolute evidence of the presence orabsence of malignant disease.Performed at: [id number] [address] [id number] Director: Ed Ramirez PhD, Phone: [phone] Start: 11-04-2024 Ecg routine ecg w/least 12 lds trcg only w/o i&r Meet Netta Henry MD Work Phone: Start: 10-25-2024 Ct abdomen & pelvis w/contrast material Ernesto Aguiar MD Work Phone: Start: 10-25-2024 Ct thorax w/contrast material Ernesto Cornell MD Work Phone: Start: 10-10-2024 History of appendectomy History of appendectomy Lucio Rodriguez APRN.CLINICAL LAB SCIENTIST Work Phone: Start: 10-10-2024 History of repair of inguinal hernia History of inguinal hernia repair Lucio Rodriguez APRN.CLINICAL LAB SCIENTIST Work Phone: Start: 10-04-2024 Ecg routine ecg w/least 12 lds trcg only w/o i&r Jonna Sierra RHEUMATOLOGIST - CLINICAL LAB SCIENTIST Work Phone: Start: 10-04-2024 Electrophysiology study Chetna vasquez RHEUMATOLOGIST - [facility] Work Phone: Start: 10-04-2024 End: 10-04-2024 POCT CJ Henry MD Work Phone: Start: 10-04-2024 Basic metabolic panel calcium total Chetna Solomon RHEUMATOLOGIST - [facility] Work Phone: Start: 09-27-2024 POCT PROTHROMBIN TIME INR (QUEST) Jonna Sierra RHEUMATOLOGIST - [facility] Work Phone: Start: 09-27-2024 Prothrombin time Jonnabrendon Sierra RHEUMATOLOGIST - [facility] Work Phone: Start: 09-23-2024 Cardiovascular stress test using pharmacologic stress agent Dr. Jt Membreno MD Work Phone: Start: 09-20-2024 X-ray of chest, PA and lateral views Dr. Jt Membreno MD Work Phone: Start: 09-13-2024 Sigmoidoscopy flx dx w/collj spec br/wa if pfrmd [facility] Provider Start: 09-05-2024 Ecg routine ecg w/least 12 lds trcg only w/o i&r Josh Lr MD Work Phone: Start: 08-22-2024 US scan of thyroid Dr. Jt Membreno MD Work Phone: Start: 05-17-2024 Sigmoidoscopy flx dx w/collj spec br/wa if pfrmd [facility] Provider Start: 04-14-2024 Ct abdomen & pelvis w/contrast material Ernesto Aguiar MD Work Phone: Start: 04-14-2024 Ct thorax w/contrast material Ernesto Cornell MD Work Phone: Start: 03-01-2024 Sigmoidoscopy flx dx w/collj spec br/wa if pfrmd [facility] Provider Start: 11-20-2023 Radionuclide whole body bone study Dr. Jt Membreno Work Phone: Start: 11-17-2023 Sigmoidoscopy flx dx w/collj spec br/wa if pfrmd [facility] Provider Start: 11-11-2023 Computed tomography of abdomen and pelvis with intravenous contrast Dr. Jt Membreno Work Phone: Start: 11-10-2023 MRI of lumbar spine with contrast Dr. Jt Membreno Work Phone: Start: 10-29-[address] Jt Membreno Work Phone: Start: 10-25-2023 Computed tomography of abdomen and pelvis with intravenous contrast Dr. Jt Membreno Work Phone: Start: 08-04-2023 Sigmoidoscopy flx dx w/collj spec br/wa if pfrmd [facility] Provider Start: 08-03-2023 Plain chest X-ray Dr. Jt Membreno Work Phone: Start: 08-03-2023 Implantation to cardiovascular system Dr. tJ Membreno Work Phone: Start: 08-03-[address] Jt Membreno Work Phone: Start: 07-27-2023 Ct thorax w/contrast material Ernesto Cornell MD Work Phone: Start: 07-27-2023 Ct abdomen & pelvis w/contrast material Ernesto Aguiar MD Work Phone: Start: 07-19-2023 Computed tomography of abdomen and pelvis with intravenous contrast Dr. Jt Membreno Work Phone: Start: 07-19-[address] Jt Membreno Work Phone: Start: 07-19-2023 Dr. Jt Membreno Work Phone: Start: 07-19-2023 Plain chest X-ray Dr. Jt Membreno Work Phone: Start: 07-16-[address] Jt Membreno Work Phone: Start: 07-15-2023 Computed tomography of abdomen and pelvis with intravenous contrast Dr. Jt Membreno Work Phone: Start: 07-13-2023 Mri pelvis w/o & w/contrast material Ernesto Aguiar MD Work Phone: Start: 05-20-2023 MRI of pelvis with contrast Dr. Jt vallecillo Work Phone: Start: 05-13-2023 US scan of thyroid Dr. Jt Membreno Work Phone: Start: 05-05-2023 CT of chest and abdomen Dr. Jt glass Work Phone: Start: 05-05-[address] Jt Membreno Work Phone: Start: 02-26-2023 X-ray of lumbar spine, two or three views Dr. Jt Membreno Work Phone: Start: 10-21-2022 X-ray of cervical spine Dr. Jt glass Work Phone: Start: 05-06-2022 Plain x-ray of pelvis and lower extremity Start: 01-21-2022 Plain chest X-ray Dr. Jt Membreno Work Phone: Start: 07-11-2016 Colonoscopy Kesha Quinn RN History of appendectomy History of appendectomy Dr. Jt Membreno Work Phone: Plan of Treatment Date Care Activity Detail Author Start: 11-12-2030 DTaP/Tdap/Td Vaccines (2 - Td or Tdap) DTaP/Tdap/Td Vaccines (2 - Td or Tdap) [facility] Start: 11-12-2030 Urine microalbumin profile DTaP,Tdap,Td Vaccine (2 - Td or Tdap) [facility] Start: 01-10-2030 Screening for malignant neoplasm of colon Sigmoidoscopy [facility] Start: 09-13-2029 Screening for malignant neoplasm of colon Sigmoidoscopy [facility] Start: 05-17-2029 Screening for malignant neoplasm of colon Sigmoidoscopy [facility] Start: 03-01-2029 Screening for malignant neoplasm of colon Sigmoidoscopy [facility] Start: 11-16-2028 Screening for malignant neoplasm of colon Sigmoidoscopy [facility] Start: 08-04-2028 Screening for malignant neoplasm of colon Sigmoidoscopy [facility] Start: 08-04-2028 Sigmoidoscopy Sigmoidoscopy [facility] Start: 05-12-2028 SIGMOIDOSCOPY SIGMOIDOSCOPY [facility] Start: 10-04-2027 Diabetes Screening Diabetes Screening [facility] Start: 05-15-2025 Influenza vaccination Influenza Vaccine (#1) [facility] Start: 05-02-2025 End: 05-02-2025 Patient encounter procedure 05/02/2025 10:15 AM EDT Office Visit Colorectal Surgery [address] [place] [address] Ernesto Aguiar MD [address] [place] [address] 4-6 month follow flex sig Colorectal Surgery Comment on above: 4-6 month follow flex sig Start: 01-16-2025 End: 01-16-2025 Patient encounter procedure 01/16/2025 10:45 AM EDT Office Visit [facility] [address] [place] [phone] Aylin Henry MD [address] [place] [address] [facility] Start: 01-12-2025 End: 01-12-2025 ambulatory 01/12/2025 10:45 AM EDT Results Only Damaris Desouza [facility] [address] [place] [address] Damaris Nassarwn [facility] Start: 01-11-2025 Screening for malignant neoplasm of colon Colorectal Cancer Screening [facility] Start: 01-10-2025 End: 2025 Creatinine and Glomerular filtration rate.predicted panel - Serum, Plasma or Blood CREATININE BLD Lab Routine Rectal cancer (HCC) Malignant neoplasm of rectum (HCC) Expected: 01/10/2025, Expires: 2025 [facility] Comment on above: Expected: 01/10/2025, Expires: Start: 01-10-2025 End: 01-10-2025 Patient encounter procedure 01/10/2025 10:00 AM EDT Office Visit Colorectal Surgery [address] [place] [address] Ernesto Aguiar MD [address] [place] [address] flex sig watch and wait Colorectal Surgery Comment on above: flex sig watch and wait Start: 01-09-2025 End: 01-09-2025 Patient encounter procedure 01/09/2025 11:30 AM EDT Office Visit BMI [facility] REJ [address] [place] [address] Lucio Rodriguez APRN.CLINICAL LAB SCIENTIST [address] [place] [address] 3m f/u BMI [facility] Comment on above: 3m f/u Start: 11-16-2024 Venous catheter care management [facility] Start: 11-04-2024 End: 11-04-2024 Patient encounter procedure 11/04/2024 1:00 PM EST Office Visit [facility] [address] [place] [phone] Chetna Solomon APRN - CLINICAL LAB SCIENTIST [address] [facility] [address] [place] [address] [facility] Start: 10-25-2024 End: 10-25-2024 Patient encounter procedure Cat Scan Comment on above: Malignant neoplasm of rectum (HCC) [C20] Start: 10-17-2024 End: 10-17-2024 Patient encounter procedure 10/17/2024 2:20 PM EST Appointment Cat Scan [address] [place] [address] Malignant neoplasm of rectum (HCC) [C20] Cat Scan Comment on above: Malignant neoplasm of rectum (HCC) [C20] Start: 10-17-2024 End: 10-17-2024 Patient encounter procedure Radiology Comment on above: Malignant neoplasm of rectum (HCC) [C20] Start: 10-04-2024 End: 10-04-2024 Admission to same day surgery center 10/04/2024 8:30 AM EST - 10/04/2024 10:00 AM EST Surgery [facility] [address] [place] [address] Aylin Henry MD [address] [place] [id number] Ablation a-fib paroxysmal [83233 (CPT )] [facility] Comment on above: Ablation a-fib paroxysmal [86445 (CPT )] Start: 10-04-2024 Subsequent hospital visit by physician [facility] Comment on above: Paroxysmal atrial fibrillation (HCC) Start: 09-27-2024 End: 09-27-2025 POCT Prothrombin Time INR ([facility]) POCT Prothrombin Time INR ([facility]) Lab Routine Paroxysmal atrial fibrillation (HCC) Expected: 09/27/2024 (Approximate), Expires: 09/27/2025 [facility] [employer] Work Phone: Comment on above: Expected: 09/27/2024 (Approximate), Expi res: 09/27/2025 Start: 09-27-2024 End: 09-27-2025 Prothrombin time (PT) in Blood by Coagulation assay Protime-INR Lab Routine Paroxysmal atrial fibrillation (HCC) Expected: 09/27/2024 (Approximate), Expires: 09/27/2025 [facility] Comment on above: Expected: 09/27/2024 (Approximate), Expi res: 09/27/2025 Start: 09-14-2024 Advance Directive Discussion Advance Directive Discussion [facility] Start: 09-14-2024 Screening for malignant neoplasm of colon Colorectal Cancer Screening [facility] Start: 09-13-2024 End: 12-13-2024 CREATININE BLD CREATININE BLD Lab Routine Malignant neoplasm of rectum (HCC) Expected: 09/13/2024, Expires: 12/13/2024 [facility] Comment on above: Expected: 09/13/2024, Expires: Start: 09-13-2024 End: 09-13-2024 ambulatory 09/13/2024 1:15 PM EST Results Only Damaris [facility] [address] [place] [address] [facility] Start: 09-05-2024 End: 09-05-2025 Basic metabolic 1998 panel - Serum or Plasma Basic metabolic panel Lab Routine Atrial fibrillation, unspecified type (HCC) Expected: 09/05/2024 (Approximate), Expires: 09/05/2025 [facility] Comment on above: Expected: 09/05/2024 (Approximate), Expi res: 09/05/2025 Start: 09-05-2024 End: 09-05-2025 CBC W Auto Differential panel - Blood CBC auto differential Lab Routine Atrial fibrillation, unspecified type (HCC) Expected: 09/05/2024 (Approximate), Expires: 09/05/2025 [facility] Work Phone: Comment on above: Expected: 09/05/2024 (Approximate), Expi res: 09/05/2025 Start: 05-18-2024 Screening for malignant neoplasm of colon Colorectal Cancer Screening [facility] Start: 05-17-2024 End: 05-17-2024 Patient encounter procedure 05/17/2024 11:00 AM EDT Office Visit Colorectal Surgery [address] [place] [address] Ernesto Aguiar MD [address] [place] [address] flex sig watch and wait Colorectal Surgery Comment on above: flex sig watch and wait Start: 05-15-2024 Covid-19 Vaccine () Covid-19 Vaccine () [facility] Start: 05-15-2024 COVID-19 Vaccine ( season) COVID-19 Vaccine () [facility] Start: 05-15-2024 Influenza vaccination Influenza Vaccine (#1) Tracy Johanne Start: 04-21-2024 End: 04-21-2024 Patient encounter procedure 04/21/2024 11:10 AM EDT Appointment MRI Q [address] [address] Malignant neoplasm of rectum (HCC) [C20] MRI Q Comment on above: Malignant neoplasm of rectum (HCC) [C20] Start: 04-21-2024 Subsequent hospital visit by physician 04/21/2024 11:10 AM EDT Hospital Encounter MRI Q [address] [address] Malignant neoplasm of rectum (HCC) [C20] MRI Q Comment on above: Malignant neoplasm of rectum (HCC) [C20] Start: 03-28-2024 End: 03-28-2024 ambulatory 03/28/2024 4:45 PM EDT Results Only [facility] [address] [place] [address] [facility] Start: 03-25-2024 End: 06-24-2024 CREATININE BLD CREATININE BLD Lab Routine Malignant neoplasm of rectum (HCC) Expected: 03/25/2024, Expires: 06/24/2024 [facility] Comment on above: Expected: 03/25/2024, Expires: Start: 03-02-2024 Screening for malignant neoplasm of colon Colorectal Cancer Screening [facility] Start: 12-03-2023 [facility] Start: 11-20-2023 Venous catheter care management [facility] Start: 11-18-2023 Screening for malignant neoplasm of colon Colorectal Cancer Screening [facility] Start: 11-13-2023 Venous catheter care management [facility] Start: 11-13-2023 Patient discharge [facility] Start: 11-12-2023 Admission procedure [facility] Start: 11-11-2023 Application of intermittent pneumatic compression device [facility] Start: 11-11-2023 Following clinical pathway protocol [facility] Start: 11-11-2023 Admission procedure [facility] Start: 11-11-2023 Measuring intake and output [facility] Start: 11-11-2023 Patient education [facility] Start: 11-11-2023 Provision of activity privileges [facility] Start: 11-11-2023 Taking patient vital signs [facility] Start: 11-11-2023 Vital signs measurements [facility] Start: 11-11-2023 End: 11-12-2023 [facility] Start: 11-11-2023 Hospital admission, emergency, from emergency room, medical nature [facility] Start: 11-11-2023 Patient referral to dietitian [facility] Start: 11-11-2023 [facility] Start: 11-10-2023 Venous catheter care management [facility] Start: 11-09-2023 Patient referral [facility] Work Phone: Start: 10-28-2023 End: 01-27-2024 Carcinoembryonic Ag [Mass/volume] in Serum or Plasma CEA BLD Lab Routine Malignant neoplasm of rectum (HCC) Expected: 10/28/2023, Expires: 01/27/2024 [facility] Work Phone: Comment on above: Expected: 10/28/2023, Expires: Start: 10-25-2023 End: 10-25-2023 [facility] Start: 09-14-2023 Advance Directive Discussion Advance Directive Discussion [facility] Start: 09-14-2023 Behavioral Health Screening Behavioral Health Screening [facility] Start: 09-14-2023 Depression Assessment Depression Assessment [facility] Start: 08-31-2023 Venous catheter care management [facility] Start: 08-05-2023 Colorectal Cancer Screening Colorectal Cancer Screening [facility] Start: 08-05-2023 Screening for malignant neoplasm of colon Colorectal Cancer Screening [facility] Start: 08-03-2023 Anesthesia access central venous circulation [facility] Start: 08-03-2023 Insj tunneled ctr vad w/subq port age 3 yr/> [facility] Start: 08-03-2023 Patient discharge [facility] Start: 07-19-2023 End: 07-19-2023 Blood culture [facility] Start: 07-19-2023 [facility] Start: 07-17-2023 Patient discharge [facility] Start: 07-16-2023 Following clinical pathway protocol [facility] Start: 07-15-2023 Ambulation without limitation [facility] Start: 07-15-2023 Assessment of risk of venous thromboembolism [facility] Start: 07-15-2023 Insertion of catheter into peripheral vein [facility] Start: 07-15-2023 Providing care according to standard [facility] Start: 07-15-2023 Referral to general surgeon [facility] Start: 07-15-2023 [facility] Start: 07-15-2023 Verification routine [facility] Start: 07-15-2023 End: 07-15-2023 Hospital admission, emergency, from emergency room, medical nature [facility] Start: 07-15-2023 Admission procedure [facility] Start: 06-30-2023 Patient referral [facility] Work Phone: Start: 05-20-2023 MR Pelvis WO and W contrast IV [facility] Start: 05-20-2023 MRI of pelvis with contrast Pelvis W/WO Contrast [facility] Start: 05-15-2023 Covid-19 Vaccine ( season) Covid-19 Vaccine ( season) [facility] Start: 05-15-2023 Influenza vaccination [facility] Start: 05-13-2023 COLORECTAL CANCER SCREENING COLORECTAL CANCER SCREENING [facility] Start: 05-05-2023 Colonoscopy w/biopsy single/multiple [facility] Start: 05-05-2023 CT of chest and abdomen CT Chest, Abd, Pel w/Contrast [facility] Start: 05-05-2023 Patient discharge [facility] Start: 2023 ADVANCE DIRECTIVE DISCUSSION ADVANCE DIRECTIVE DISCUSSION [facility] Start: 2023 Pneumococcal Vaccine: 65+ (1 - PCV) Pneumococcal Vaccine: 65+ (1 - PCV) [facility] Start: 2023 Pneumococcal Vaccine: 65+ (1 of 1 - PCV) Pneumococcal Vaccine: 65+ (1 of 1 - PCV) [facility] Start: 2023 PNEUMOCOCCAL: 65+ (1 - PCV) PNEUMOCOCCAL: 65+ (1 - PCV) [facility] Start: 03-14-2023 Medicare Annual Wellness Visit Medicare Annual Wellness Visit [facility] Start: 02-26-2023 Patient referral [facility] Work Phone: Start: 09-14-2022 DEPRESSION ASSESSMENT DEPRESSION ASSESSMENT [facility] Start: 04-03-2022 COVID-19 VACCINE (4 - Moderna series) COVID-19 VACCINE (4 - Moderna series) [facility] Start: 01-21-2022 [facility] Work Phone: Start: 07-11-2019 Colonoscopy COLONOSCOPY [facility] Start: 07-11-2019 Screening for malignant neoplasm of colon Colonoscopy [facility] Start: 2018 RSV Immunization for Adults (1 - Risk 60-74 years 1-dose series) RSV Immunization for Adults (1 - Risk 60-74 years 1-dose series) [facility] Start: 2018 RSV Vaccine (1 - 1-dose 60+ series) RSV Vaccine (1 - 1-dose 60+ series) [facility] Start: 2018 RSV Vaccine (1 - Risk 60-74 years 1-dose series) RSV Vaccine (1 - Risk 60-74 years 1-dose series) [facility] Start: 2013 PROSTATE CANCER SCREENING DISCUSSION PROSTATE CANCER SCREENING DISCUSSION [facility] Start: 2013 Prostate specific antigen measurement Prostate Cancer Screening Discussion [facility] Start: 2008 Pneumococcal Vaccine: 50+ (1 of 1 - PCV) Pneumococcal Vaccine: 50+ (1 of 1 - PCV) [facility] Start: 2008 SHINGRIX VACCINE (1 of 2) SHINGRIX VACCINE (1 of 2) [facility] Start: 2003 COLOGUARD (FIT-DNA) COLOGUARD (FIT-DNA) [facility] Start: [address] COLONOGRAPHY [facility] Start: 2003 DIABETES SCREEN DIABETES SCREEN [facility] Start: 2003 Diabetes Screening Diabetes Screening [facility] Start: 2003 FECAL OCCULT BLOOD FECAL OCCULT BLOOD [facility] Start: 2003 Prostate specific antigen measurement Prostate Cancer Screening Discussion [facility] Start: 2003 Screening for malignant neoplasm of colon [facility] Start: 1993 Lipid 1996 panel - Serum or Plasma Lipid Screening [facility] Start: 1993 Lipid panel Lipid Screening [facility] Start: 1993 LIPID SCREEN LIPID SCREEN [facility] Start: 1977 Pneumococcal Vaccine: 50+ Years (1 of 2 - PCV) Pneumococcal Vaccine: 50+ Years (1 of 2 - PCV) [facility] Start: 1977 Urine microalbumin profile DTAP,TDAP,TD (1 - Tdap) [facility] Start: 1976 Annual PCP Team Chronic Disease Visit Annual PCP Team Chronic Disease Visit [facility] Start: 1976 Anxiety Screening Anxiety Screening [facility] Start: 1976 BP Controlled (<130/80) BP Controlled (<130/80) [facility] Start: 1976 Depression Screening Depression Screening [facility] Start: 1976 Diabetes mellitus screening Diabetes Screening [facility] Start: 1976 HEPATITIS C SCREENING HEPATITIS C SCREENING [facility] Start: 1976 Hepatitis C screening Hepatitis C Screening [facility] Start: 1976 HIV SCREENING HIV SCREENING [facility] Start: 1976 HIV screening HIV Screening [facility] Start: 1976 Spirometry Spirometry [facility] Start: 1970 Depression Screening Depression Screening [facility] Start: 1959 MMR Vaccines (1 of 1 - Standard series) MMR Vaccines (1 of 1 - Standard series) [facility] Start: 1958 Lipid panel Lipid Panel [facility] Start: 1958 Medicare Annual Wellness (AWV) Medicare Annual Wellness (AWV) [facility] Start: 1958 Screening for malignant neoplasm of colon [facility] Carcinoembryonic Ag [Mass/volume] in Serum or Plasma [facility] Carcinoembryonic Ag [Mass/volume] in Serum or Plasma [facility] Carcinoembryonic Ag [Mass/volume] in Serum or Plasma [facility] Carcinoembryonic Ag [Mass/volume] in Serum or Plasma [facility] CBC W Auto Different ial panel - Blood [facility] CBC W Auto Different ial panel - Blood [facility] CBC W Auto Different ial panel - Blood [facility] CBC W Auto Different ial panel - Blood [facility] CBC W Auto Different ial panel - Blood [facility] CBC W Auto Different ial panel - Blood [facility] CBC W Auto Different ial panel - Blood [facility] Colonoscopy [facility] Comprehensive metabo lic 2000 panel - Serum or Plasma [facility] CT Abdomen and Pelvi s W contrast IV [facility] End: 04-24-2025 CT Abdomen and Pelvis W contrast IV CT ABD/PEL W IVCON Radiology Routine Malignant neoplasm of rectum (HCC) 1 Occurrences starting 03/25/2024 until 04/24/2025 [facility] Work Phone: Comment on above: 1 Occurrences starting 03/25/2024 until 04/24/2025 End: 10-13-2025 CT Abdomen and Pelvis W contrast IV CT ABD/PEL W IVCON Radiology Routine Malignant neoplasm of rectum (HCC) 1 Occurrences starting 09/13/2024 until 10/13/2025 [facility] Comment on above: 1 Occurrences starting 09/13/2024 until 10/13/2025 End: 02-09-2026 CT Abdomen and Pelvis W contrast IV CT ABD/PEL W IVCON Radiology Routine Malignant neoplasm of rectum (HCC) 1 Occurrences starting 01/10/2025 until 02/09/2026 [facility] Comment on above: 1 Occurrences starting 01/10/2025 until 02/09/2026 End: 04-24-2025 CT Chest W contrast IV CT CHEST W IVCON Radiology Routine Malignant neoplasm of rectum (HCC) 1 Occurrences starting 03/25/2024 until 04/24/2025 [facility] Comment on above: 1 Occurrences starting 03/25/2024 until 04/24/2025 End: 10-13-2025 CT Chest W contrast IV CT CHEST W IVCON Radiology Routine Malignant neoplasm of rectum (HCC) 1 Occurrences starting 09/13/2024 until 10/13/2025 [facility] Comment on above: 1 Occurrences starting 09/13/2024 until 10/13/2025 End: 02-09-2026 CT Chest W contrast IV CT CHEST W IVCON Radiology Routine Malignant neoplasm of rectum (HCC) 1 Occurrences starting 01/10/2025 until 02/09/2026 [facility] Comment on above: 1 Occurrences starting 01/10/2025 until 02/09/2026 ECG 12 lead ECG 12 lead CV E CG STAT 10/04/2024 1:52 PM [employer] Work Phone: ECG 12 lead - CLINIC PERFORMED ECG 12 lead - CLINIC PERFORMED CV ECG Routine Atrial fibrillation, unspecified type (HCC) 09/05/2024 10:00 AM [employer] ECG 12 lead - CLINIC PERFORMED ECG 12 lead - CLINIC PERFORMED CV ECG Routine Paroxysmal atrial fibrillation (HCC) 11/04/2024 1:04 PM [employer] Work Phone: Electrocardiographic procedure [facility] Ephys evl trnsptl tx atrial fib isolat pulm vein ABLATION A-FIB PAROXYSMAL W COMPLETE EP STUDY Paroxysmal atrial fibrillation (HCC) [facility] Cardiac Cath Labs Ferritin [Mass/volum e] in Serum or Plasma [facility] Ferritin [Mass/volum e] in Serum or Plasma [facility] End: 01-10-2026 Flexible sigmoidoscopy study COLONOSCOPY DIAGNOSTIC Endoscopy Routine Rectal cancer (HCC) 1 Occurrences starting 01/10/2025 until 01/10/2026 [facility] Work Phone: Comment on above: 1 Occurrences starting 01/10/2025 until 01/10/2026 Iron and Iron bindin g capacity panel - Serum or Plasma [facility] Iron and Iron bindin g capacity panel - Serum or Plasma [facility] Lactate dehydrogenas e measurement [facility] Lactate dehydrogenas e measurement [facility] Lactate dehydrogenas e measurement [facility] Lactate dehydrogenas e measurement [facility] Lactate dehydrogenas e measurement [facility] Magnesium [Mass/volu me] in Serum or Plasma [facility] Magnesium [Mass/volu me] in Serum or Plasma [facility] [facility] Magnesium [Mass/volu me] in Serum or Plasma [facility] Magnesium [Mass/volu me] in Serum or Plasma [facility] MR Lumbar spine WO a nd W contrast IV [facility] End: 11-26-2024 MR Pelvis WO contrast MRI RECTUM WO/W IVCON Radiology Routine Malignant neoplasm of rectum (HCC) 1 Occurrences starting 10/28/2023 until 11/26/2024 [facility] Work Phone: Comment on above: 1 Occurrences starting 10/28/2023 until 11/26/2024 MR Pelvis WO contrast MRI RECTUM WO/W IVCON Radiology Routine Malignant neoplasm of rectum (HCC) 11/04/2023 2:05 PM EST [facility] Work Phone: End: 05-18-2025 MR Pelvis WO contrast MRI RECTUM WO/W IVCON Radiology Routine Malignant neoplasm of rectum (HCC) 1 Occurrences starting 04/18/2024 until 05/18/2025 [facility] Work Phone: Comment on above: 1 Occurrences starting 04/18/2024 until 05/18/2025 MR Pelvis WO contrast MRI RECTUM WO/W IVCON Radiology Routine Malignant neoplasm of rectum (HCC) 04/21/2024 1:13 PM EDT [facility] Work Phone: End: 10-13-2025 MR Pelvis WO contrast MRI RECTUM WO/W IVCON Radiology Routine Malignant neoplasm of rectum (HCC) 1 Occurrences starting 09/13/2024 until 10/13/2025 [facility] Work Phone: Comment on above: 1 Occurrences starting 09/13/2024 until 10/13/2025 MR Pelvis WO contrast MRI RECTUM WO/W IVCON Radiology Routine Malignant neoplasm of rectum (HCC) 10/17/2024 1:05 PM EST [facility] Work Phone: End: 04-13-2026 MR Pelvis WO contrast MRI RECTUM WO/W IVCON Radiology Routine Malignant neoplasm of rectum (HCC) 1 Occurrences starting 03/14/2025 until 04/13/2026 [facility] Work Phone: Comment on above: 1 Occurrences starting 03/14/2025 until 04/13/2026 Patient Education [facility] Work Phone: Patient referral [facility] Work Phone: Procedure [facility] Respiratory pathogen s DNA and RNA panel - Respiratory specimen by DONITA with probe detection [facility] Serum inorganic phos phate measurement [facility] US Heart [facility] US Thyroid gland [facility] Immunizations Immunization Date Immunization Notes Care Provider Asad dickey 05-29-2023 influenza, injectabl e, quadrivalent, contains preservative Lucio Louden RHEUMATOLOGIST.CLINICAL LAB SCIENTIST Work Phone: [facility] 05-29-2023 influenza virus vaccine, unspecified formulation Ernesto Aguiar MD Work Phone: [facility] 08-04-2022 influenza, injectabl e, quadrivalent, preservative free Ulcio Louden RHEUMATOLOGIST.CLINICAL LAB SCIENTIST Work Phone: [facility] 08-04-2022 influenza virus vaccine, unspecified formulation Kesha Quinn RN [facility] 11-12-2020 tetanus toxoid, redu ileana diphtheria toxoid, and acellular pertussis vaccine, adsorbed Lucio Louden RHEUMATOLOGIST.CLINICAL LAB SCIENTIST Work Phone: [facility] 08-23-2020 zoster vaccine recombinant Lucio Louden RHEUMATOLOGIST.CLINICAL LAB SCIENTIST Work Phone: [facility] 05-25-2020 influenza, injectabl e, quadrivalent, preservative free Lucio Louden RHEUMATOLOGIST.CLINICAL LAB SCIENTIST Work Phone: [facility] 05-25-2020 zoster vaccine recombinant Lucio Louden RHEUMATOLOGIST.CLINICAL LAB SCIENTIST Work Phone: [facility] 08-02-2019 influenza, injectabl e, quadrivalent, preservative free Lucio Louden RHEUMATOLOGIST.CLINICAL LAB SCIENTIST Work Phone: [facility] 06-09-2018 influenza, injectabl e, quadrivalent, preservative free Dr. Jt Membreno Work Phone: [facility] 06-09-2018 influenza, seasonal, injectable Dr. Jt Membreno Work Phone: [facility] 07-10-2009 influenza virus vaccine, whole virus Lucio Louden RHEUMATOLOGIST.CLINICAL LAB SCIENTIST Work Phone: [facility] Payers Date Payer Category Payer Private Health Insurance [id number] 09-14-2023 Medicare supplementa l policy (as second payer) [id number] 05-11-2023 Private Health Insurance [id number] 05-11-2023 Self-pay [id number] 03-14-2023 Medicare [id number] 03-14-2023 Medicare [id number] 09-14-2022 Private Health Insurance [id number] 06-23-2017 Unknown [id number] 09-14-2015 Private Health Insurance [id number] 09-14-2015 Unknown [id number] Private Health Insurance [facility] [id number] Private Health Insurance [facility] [id number] Unknown [id number] Unknown [id number] Unknown [id number] 2.16.840.1.715718.3.579.2.462 Unknown [id number] 2.16.840.1.524389.3.579.2.462 Unknown [id number] 2.16.840.1.331758.3.579.2.462 Unknown [id number] 2.16.840.1.976121.3.579.2.462 Unknown [id number] 2.16.840.1.528286.3.579.2.462 Unknown [id number] 2.16.840.1.601033.3.579.2.462 Unknown [id number] 2.16.840.1.992612.3.579.2.462 Unknown [id number] 2.16.840.1.953726.3.579.2.462 Unknown [id number] 2.16840.1.699664.3.579.2.462 Unknown [id number] 2.16.840.1.515491.3.579.2.462 Unknown [id number] 2.16.840.1.557987.3.579.2.462 Unknown [id number] 2..840.1.802402.3.579.2.462 Unknown [id number] 2.840.1.118981.3.579.2.462 Unknown [id number] 2.16.840.1.994911.3.579.2.462 Unknown [id number] 2.16.840.1.075634.3.579.2.462 Unknown [id number] 2.16.840.1.612733.3.579.2.462 Unknown [id number] 2.16840.1.007589.3.579.2.462 Unknown [id number] 2.16.840.1.289062.3.579.2.462 Unknown [id number] 2.16.840.1.354033.3.579.2.462 Unknown [id number] 2.16.840.1.761670.3.579.2.462 Unknown [id number] 2.16.840.1.582796.3.579.2.462 Unknown [id number] 2.840.1.699539.3.579.2.462 Unknown [id number] 2.840.1.277126.3.579.2.462 Unknown [id number] 2.840.1.468961.3.579.2.462 Unknown [id number] 2.840.1.110156.3.579.2.462 Unknown [id number] 2.840.1.964501.3.579.2.462 Unknown [id number] .840.1.897334.3.579.2.462 Unknown [id number] .840.1.183575.3.579.2.462 Unknown [id number] 2.840.1.647889.3.579.2.462 Unknown [id number] 840.1.758513.3.579.2.462 Unknown [id number] 2.840.1.618095.3.579.2.462 Unknown [id number] 2.840.1.978630.3.579.2.462 Unknown [id number] 2.840.1.822149.3.579.2.462 Unknown [id number] 840.1.551523.3.579.2.462 Unknown [id number] .840.1.836307.3.579.2.462 Unknown [id number] .840.1.354501.3.579.2.462 Unknown [id number] 2.840.1.793193.3.579.2.462 Unknown [id number] 2.840.1.490564.3.579.2.462 Unknown [id number] 2.840.1.272424.3.579.2.462 Unknown [id number] 2.840.1.860331.3.579.2.462 Unknown [id number] 2.16.840.1.475422.3.579.2.462 Social History Date Type Detail Facility Start: 12-08-2021 End: 12-23-2023 Tobacco smoking status NHIS Unknown if ever smoked [facility] Start: 01-12-2021 None [facility] Start: 10-31-2019 Spouse/ Signif icant Other [facility] Start: 01-12-2021 Non-smoker [facility] Start: 1960 Sex Assigned At Male [facility] Start: 05-12-2023 End: 08-24-2024 Tobacco smoking status NHIS Never smoked tobacco [facility] Start: 05-12-2023 Tobacco use and exposure Smokeless tobacco non-user [facility] Start: 05-12-2023 End: 10-17-2024 Alcohol intake Current drinker of alcohol (finding) [facility] Start: 05-12-2023 End: 10-17-2024 History of Social function [facility] Start: 05-12-2023 End: 10-17-2024 Tobacco use panel [facility] National Score (1-10 0), lower number is lower risk 54 [facility] Start: 05-11-2023 Gender identity Identifies as male gender (finding) [facility] Start: 05-11-2023 Sexual orientation Heterosexual (fin ding) [facility] Start: 1960 Sex assigned at Not on file [facility] Start: 05-05-2024 End: 12-20-2024 Sex Male (finding) [facility] Medical Equipment Procedure Code Equipment Code Equipment Origin al Text Equipment Identifier Dates Insertion, vascular access port ([id number]) [id number] 2019 FDA Start: 08-03-2023 Arthroscopy, shoulder, with rotator cuff repair FIBERLINK [id number] FDA Start: 05-23-2024 Arthroscopy, shoulder, with rotator cuff repair FIBERLINK [id number] FDA Start: 05-23-2024 Arthroscopy, shoulder, with rotator cuff repair FIBERLINK [id number] FDA Start: 05-23-2024 Arthroscopy, shoulder, with rotator cuff repair FIBERTAPE FDA Start: 05-23-2024 Arthroscopy, shoulder, with rotator cuff repair FIBERTAPE FDA Start: 05-23-2024 Arthroscopy, shoulder, with rotator cuff repair Tendon/ligament bone anchor, bioabsorbable [id number] FDA Start: 05-23-2024 Arthroscopy, shoulder, with rotator cuff repair Tendon/ligament bone anchor, bioabsorbable [id number] FDA Start: 05-23-2024 Arthroscopy, shoulder, with rotator cuff repair FIBERLINK [id number] FDA Start: 05-23-2024 Arthroscopy, shoulder, with rotator cuff repair FIBERLINK [id number] FDA Start: 05-23-2024 Arthroscopy, shoulder, with rotator cuff repair FIBERLINK [id number] FDA Start: 05-23-2024 Arthroscopy, shoulder, with rotator cuff repair FIBERTAPE FDA Start: 05-23-2024 Arthroscopy, shoulder, with rotator cuff repair FIBERTAPE FDA Start: 05-23-2024 Arthroscopy, shoulder, with rotator cuff repair FIBERLINK [id number] FDA Start: 05-23-2024 Arthroscopy, shoulder, with rotator cuff repair FIBERLINK [id number] FDA Start: 05-23-2024 Arthroscopy, shoulder, with rotator cuff repair FIBERLINK [id number] FDA Start: 05-23-2024 Arthroscopy, shoulder, with rotator cuff repair FIBERTAPE FDA Start: 05-23-2024 Arthroscopy, shoulder, with rotator cuff repair FIBERTAPE FDA Start: 05-23-2024 Vascade Mvp Xl [id number] , Please Transition To Cat# [id number] Start: 10-04-2024 Device Closure Vascade Mvp - [id number] Start: 10-04-2024 Goals Date Patient Goal Desired Activity /State Functional Status Date Assessment Result Facility 11-13-2023 Functional status Ambulates [facility] Work Phone: 11-12-2023 Functional status Ambulates;Up ad jadon [facility] Work Phone: 07-17-2023 Functional status Ambulates [facility] Work Phone: 05-05-2023 Functional status Ambulates;Bathroom Priv ilege [facility] Work Phone: Mental Status Date Assessment Result Facility 11-12-2023 Cognitive function Voice/Name [facility] Work Phone: 08-03-2023 Cognitive function Voice/Name [facility] Work Phone: 07-17-2023 Cognitive function Appropriate;Cooperativ e [facility] Work Phone: 05-05-2023 Cognitive function Voice/Name [facility] Work Phone: 01-21-2022 Cognitive function Voice/Name [facility] Work Phone: Clinical Notes 05-05-2023 to 01-10-2025 Ernesto Aguiar MD - 01/10/2025 10:00 AM EDTTelephone Encounter - Maryann Maier RN - 11/10/2024 2:27 PM ESTTelephone Encounter - Maryann Maier RN - 11/10/2024 2:27 PM ESTPatient Instructions Note Date & Type Note Facility 01-10-2025 History of Present illness Narrative Images from the original note were not included. COLORECTAL SURGERY Follow-up January 02, 2025 Chief complaint: rectal malignancy , WW follow up HPI: Migue Gunter is a 64-year-old year old male with a history of [...] to undergo watch and wait protocol. He had MRI and CT scans Oct 2024 - all stable, no evidence of metastatic disease or recurrence. He was presented to MDT in Oct 2024 as well and review of MRI advised continue with surveillance (presented due to noted left sacral lesion, verified continuation of W&W plan). Plan: CEA today, flex sig today Scans due again in April 2025 Colonoscopy was done in April 2024, but technically per protocol he needs a full colonoscopy one year after completing treatment which would have been Oct 2024 - so he is overdue for this. 10.15.23 CEA was 2.[address] C/A/P IMPRESSION: 1 No abdominopelvic metastatic disease. 2. Since 04/14/2024, interval progressive healing of previously noted left proximal femur greater trochanter fracture. 3. Please refer to concurrently acquired and separately reported chest CT for findings related to the thorax. IMPRESSION: Stable CT examination with no compelling evidence of intrathoracic metastatic disease. 10.17.24 MRI rectum IMPRESSION: Stable size of the low rectal tumor with mucin. No pelvic lymphadenopathy. Decreased size and conspicuity of the indeterminate left sacral lesion. Since 04/21/2024, post treatment primary tumor assessment: Complete/near complete response. mrTRG: Grade 2 - Good response Suspicious Mesorectal lymph nodes: No. Suspicious Extramesorectal lymph nodes: No. 12 flex sig Findings: The perianal and digital rectal examinations were normal. Pertinent negatives include no palpable rectal lesions. The entire examined colon appeared normal. Impression: - The entire examined colon is normal. - No specimens collected. 05.20.2024 MDT Discussion: recent MRI shows complete MRI response with no sign for a cancerous mass. Clinical Trial Candidate: No 05.20.2024 mDT Tumor board discussion and recommendation: Continue active [...] with no sign for a cancerous mass. 05.17.2024 flex sig Findings: The perianal and digital rectal examinations were normal aside from hemorrhoids The entire examined colon appeared normal. No evidence of recurrence Impression: - The entire examined colon is normal. - No specimens collected. 04/21/2024 MRI rectum Addendum to update the impression of the [...] metastatic disease in the abdomen or pelvis. 05/03/2024 colonoscopy Pathology 03.01.2024 flex sig Findings: The perianal and [...] nodes: No. 07/09/23 CEA 1.8 Physical Exam: Sensitive Exam: yes, Participation of a fellow, resident, medical student, or advanced practice provider student in performing the sensitive examination was discussed with the patient or authorized kiosk sales representative. The patient or authorized kiosk sales representative has agreed to proceed with the sensitive examination. There were no vitals taken for this visit. General - awake, alert, no acute distress Abdominal - soft and benign Anorectal: Perianal skin is intact. No erythema, induration or excoriation. No fissure, fistula. Mild hemorrhoids Digital Rectal Exam: Anus: closed Resting tone: NORMAL Squeeze tone: NORMAL Hospital Account Manager present: Yes, Marialuisa Stevenson Flexible sigmoidoscopy: UNIVERSAL PROTOCOL / SAFETY CHECKLIST Procedure to be Performed: Flex sig Sign In: A Moment of CARE was completed. Appropriate PPE (Personal Protective Equipment) worn by all providers involved with the procedure. Special equipment not required. Patient/Surrogate Stated/Verified: Patient name, Date of , Relevant allergies, and The intended procedure Time Out: Relevant labs, photos, and/or imaging studies have been reviewed. Intended patient and procedure match the source document(s) (e.g. consent, H&P, associated studies [imaging, pathology]) match the intended patient and procedure. Consent obtained and matches the intended procedure. Yes. Correct side/site is not applicable. Medications required for this procedure are not applicable. Fire risk assessed and is not applicable. Implants: are not applicable. Sign Out: Specimens not collected. All instruments, equipment, possible retained foreign bodies are accounted for. Yes. The post-procedure plan of care has been communicated to the patient or surrogate. Procedure: The patient was placed in left lateral position. After digital exam with a lubricated finger, the scope was easily inserted to 20 cm. Findings: The preparation was Good. There was a scar about 4 cmcm from the anal verge. The remainder of the sigmoid, rectum and anal canal were entirely normal. Biopsies were Not taken. No sign of recurrence on direct or retroflexion. Assessment Medical Decision Making: Assessment & Diagnosis: Migue Gunter is a 64 year old male with history of rectal cancer and W&W after CORKY and no sign of recurrence Data Reviewed: Tests & Documents Reviewed/ordered: Review of Imaging: CT Abdomen, MRI Pelvis, CT Chest I have independently interpreted: CT Abdomen, MRI Pelvis, CT Chest I have discussed Migue Gunter's treatment plan and/or results with him and his family. Treatment plan: Will get a colonoscopy to get back on track for timing as first one was a bit early. Will see oncology for routine scans and blood work. See me for flex sig in 4-6 months. Ernesto Aguiar MD, FACS, FASCRS natural history collections curator Department [place] [address] Risk of morbidity, mortality and/or complications of treatment plan: moderate documented in this encounter [facility] 01-10-2025 Note HNO ID: [id number] Author: ERNESTO AGUIAR MD Service: ? Author Type: Physician Type: Progress Notes Filed: 01/10/2025 10:16 Note Text: COLORECTAL SURGERY Follow-up January 02, 2025 Chief complaint: rectal malignancy , WW follow up HPI: Migue Gunter is a 64-year-old year old male with a history of [...] to undergo watch and wait protocol. He had MRI and CT scans Oct 2024 - all stable, no evidence of metastatic disease or recurrence. He was presented to MDT in Oct 2024 as well and review of MRI advised continue with surveillance (presented due to noted left sacral lesion, verified continuation of WANDW plan). Plan: CEA today, flex sig today Scans due again in April 2025 Colonoscopy was done in April 2024, but technically per protocol he needs a full colonoscopy one year after completing treatment which would have been Oct 2024 - so he is overdue for this. 2.24 CEA was 2.[address] C/A/P IMPRESSION: 1 No abdominopelvic metastatic disease. 2. Since 04/14/2024, interval progressive healing of previously noted left proximal femur greater trochanter fracture. 3. Please refer to concurrently acquired and separately reported chest CT for findings related to the thorax. IMPRESSION: Stable CT examination with no compelling evidence of intrathoracic metastatic disease. .25 MRI rectum IMPRESSION: Stable size of the low rectal tumor with mucin. No pelvic lymphadenopathy. Decreased size and conspicuity of the indeterminate left sacral lesion. Since 04/21/2024, post treatment primary tumor assessment: Complete/near complete response. mrTRG: Grade 2 - Good response Suspicious Mesorectal lymph nodes: No. Suspicious Extramesorectal lymph nodes: No. 12.31 flex sig Findings: The perianal and digital rectal examinations were normal. Pertinent negatives include no palpable rectal lesions. The entire examined colon appeared normal. Impression: - The entire examined colon is normal. - No specimens collected. 05.20.2024 MDT Discussion: recent MRI shows complete MRI response with no sign for a cancerous mass. Clinical Trial Candidate: No 05.20.2024 mDT Tumor board discussion and recommendation: Continue active surveillance (Watch AND Wait) with following schedule: Exam, MELINDA, CEA AND Flex Sig: Years 0-2 every 3 months; Years 3-4 every 6 months; Years 5- yearly MRI Pelvis: Years 0-4 every 6 months; Years 5- yearly CT C/A/P with Contrast: Years 0-2 every 6 months; Years 3-10 yearly Colonoscopy: 1 year after treatment then every 3 years Discussion: recent MRI shows complete MRI response with no sign for a cancerous mass. 05.17.2024 flex sig Findings: The perianal and digital rectal examinations were normal aside from hemorrhoids The entire examined colon appeared normal. No evidence of recurrence Impression: - The entire examined colon is normal. - No specimens collected. 04/21/2024 MRI rectum Addendum to update the impression of the [...] metastatic disease in the abdomen or pelvis. 05/03/2024 colonoscopy Pathology 03.01.2024 flex sig Findings: The perianal and [...] digital rectal examinations were normal. Scope advanced (more content not included)... [facility] 11-10-2024 Telephone encounter Note Called and spoke with patient Advised of CT scans - no evidence of metastatic disease Patient appreciative of call, verbalized understanding [facility] 11-10-2024 Miscellaneous Notes Called and spoke with patient Advised of CT scans - no evidence of metastatic disease Patient appreciative of call, verbalized understanding The patient is calling to discuss the results of his CT scan. [phone] documented in this encounter [facility] 11-10-2024 Telephone encounter Note The patient is calling to discuss the results of his CT scan. [phone] [facility] 11-04-2024 Evaluation + Plan note Associated Problem(s): Primary hypertension Well controlled. Continue benazepril. [facility] 11-04-2024 Miscellaneous Notes Associated Problem(s): Primary hypertension Well controlled. Continue benazepril. Associated Problem(s): CORRINA (obstructive sleep apnea) Compliant with CPAP. He is also working with a weight loss clinic at [facility]. Associated Problem(s): Paroxysmal atrial fibrillation (HCC) S/p PVI 1 month ago. He is maintaining normal rhythm. He is appropriately anticoagulated with coumadin. INR's being monitored through [facility]. documented in this encounter [facility] 11-04-2024 Evaluation + Plan note Associated Problem(s): CORRINA (obstructive sleep apnea) Compliant with CPAP. He is also working with a weight loss clinic at [facility]. [facility] 11-04-2024 Evaluation + Plan note Associated Problem(s): Paroxysmal atrial fibrillation (HCC) S/p PVI 1 month ago. He is maintaining normal rhythm. He is appropriately anticoagulated with coumadin. INR's being monitored through [facility]. [facility] 11-04-2024 History of Present illness Narrative Images from the original note were not included. [facility] [address] [address] Dept: [phone] Dept Visit type: Established : 1960 Reason for Visit: 1 Month Follow Up Assessment and Plan 1. Paroxysmal atrial fibrillation (HCC) Assessment & Plan: S/p PVI 1 month ago. He is maintaining normal rhythm. He is appropriately anticoagulated with coumadin. INR's being monitored through [facility]. Orders: - ECG 12 lead - CLINIC PERFORMED 2. CORRINA (obstructive sleep apnea) Assessment & Plan: Compliant with CPAP. He is also working with a weight loss clinic at [facility]. 3. Primary hypertension Assessment & Plan: Well controlled. Continue benazepril. Follow up in about 2 months (around 01/02/2025) for Dr. Henry. Rory Gunter is a 64 y.o. male known to Dr Lr with a history of CORRINA/CPAP, HTN, HPL, rectal cancer s/p chemo/radiation, hx of PE on warfarin, paroxysmal atrial fibrillation. He was referred to Dr Henry for PVI consideration. On 10/04/24 he underwent successful ablation for atrial fibrillation with pulse field ablation of all four pulmonary veins and posterior wall isolation. He presents for follow up. He states he is doing well overall. Noticed a few episodes of atrial fibrillation not too long after the ablation but recently has not felt any episodes. He denies any groin pain or swelling post procedure. No bleeding concerns on warfarin. Review of Systems Constitutional: Negative for fatigue. HENT: Negative for nosebleeds. Respiratory: Negative for shortness of breath. Cardiovascular: Negative for chest pain and palpitations. Gastrointestinal: Negative for blood in stool. Genitourinary: Negative for hematuria. Musculoskeletal: Positive for back pain. Neurological: Negative for dizziness, syncope and light-headedness. Hematological: Does not bruise/bleed easily. No Known Allergies Outpatient Medications Prior to Visit Medication Sig Dispense Refill Aspirin Low Dose 81 MG EC tablet Take 81 mg by mouth daily. benazepril (Lotensin) 20 MG tablet Take 20 mg by mouth daily. cholecalciferol (Vitamin D-3) 50 MCG (2000 UT) tablet Take 2,000 Units by mouth in the morning. dilTIAZem CD (Cardizem CD) 300 MG 24 hr capsule Take 300 mg by mouth daily. furosemide (Lasix) 40 MG tablet Take 40 mg by mouth daily. metFORMIN (Glucophage) 500 MG tablet Take 500 mg by mouth daily (with breakfast). omeprazole OTC (PriLOSEC OTC) 20 MG EC tablet Take 20 mg by mouth every morning (before breakfast). Do not crush, chew, or split. sertraline (Zoloft) 50 MG tablet Take by mouth daily. warfarin (Coumadin) 3 MG tablet Take by mouth. Take as directed per After Visit Summary. oxyCODONE (Roxicodone) 5 MG immediate release tablet Take 5 mg by mouth every 4 hours as needed for severe pain (7-10). No facility-administered medications prior to visit. Past Medical History: Diagnosis Date Atrial flutter (HCC) DVT (deep venous thrombosis) (HCC) 2018 HTN (hypertension) Hyperlipemia Obese CORRINA on CPAP PAF (paroxysmal atrial fibrillation) (HCC) Pulmonary emboli (HCC) Social History Tobacco Use Smoking status: Not on file Smokeless tobacco: Not on file Substance Use Topics Alcohol use: Not on file Past Surgical History: Procedure Laterality Date APPENDECTOMY CARDIAC ELECTROPHYSIOLOGY PROCEDURE N/A 10/04/2024 Performed by Aylin Henry MD at [facility] Cardiac Cath/EP Lab MAINFRAME PROGRAMMER REPORT (HISTORICAL) 2019 HERNIA REPAIR Left HIP ARTHROPLASTY No family history on file. Objective Vitals: 11/04/24 1304 BP: 132/60 BP Location: Left arm Patient Position: Sitting BP Cuff Size: Large adult Pulse: 81 SpO2: 96% Weight: (!) 301 lb (137 kg) Height: 5' 11 (1.803 m) Physical Exam Vitals reviewed. Constitutional: General: He is not in acute distress. Appearance: Normal appearance. He is obese. HENT: Head: Normocephalic and atraumatic. Cardiovascular: Rate and Rhythm: Normal rate and regular rhythm. Heart sounds: Normal heart sounds. No murmur heard. No friction rub. No gallop. Pulmonary: Effort: Pulmonary effort is normal. Breath sounds: Normal breath sounds. No wheezing, rhonchi or rales. Skin: General: Skin is warm and dry. Neurological: Mental Status: He is alert and oriented to person, place, and time. Data Reviewed and Summarized No results found for: EFBP, PLVEF, LVEFPHYS, LVEF2D, EF Review of tests/labs done/ordered within my specialty: EKG in office: See HPI Review of tests/labs done/ordered outside my specialty: Independent interpretation of tests: ASHTYN Velasquez CNP documented in this encounter [facility] 10-26-2024 Telephone encounter Note See encounter from 10/10/24 [facility] 10-26-2024 Miscellaneous Notes See encounter from 10/10/24 documented in this encounter [facility] 10-25-2024 History of Present illness Narrative Radiology Service Progress Note DATE OF SERVICE: October 25, 2024 TIME: 3:08 PM PATIENT IDENTITY VERIFICATION COMPLETED USING TWO (2) STANDARD IDENTIFIERS: Name and Date of confirmed by patient verbally. FALL SCREENING: Has the patient had 2 falls in the last year or 1 fall with injury or currently using an Ambulatory Assistive Device (Walker, Cane, Wheelchair, Crutches, etc.)? No PATIENT GENDER DATA: Assigned male at PATIENT RELEVANT IMPLANT DATA REVIEWED: Yes PATIENT PRESENTS WITH AN IMPLANTABLE OR ATTACHED DIRECTOR OF ENROLLMENT: No ALLERGIES: Reviewed and unchanged CONTRAST ALLERGY: NO. EXAM: CT -CONTRAST INDUCED NEPHROPATHY RISK FACTORS: Patient age > 60 years CREATININE: Creatinine Date Value Ref Range Status 09/13/2024 0.98 0.73 - 1.22 mg/dL Final 03/28/2024 1.06 0.73 - 1.22 mg/dL Final 07/09/2023 0.97 0.73 - 1.22 mg/dL Final Estimated Glomerular Filtration Rate Date Value Ref Range Status 09/13/2024 85 >=60 mL/min/1.73m Final Comment: Estimated Glomerular Filtration [...] RESULTS: POC done: Yes, See Lab Tab October 25, 2024 TREATMENT: N/A PERIPHERAL IV DATA: Ambulatory: A peripheral IV was started in the Left antecubital site with a Angio cath: 22 gauge. RADIOLOGY DEPARTMENT: CT; Exam(s) Completed: Chest Abdomen Pelvis SIGNATURE: RT Maryanne(R) PATIENT NAME: Migue Gunter DATE: October 25, 2024 TIME: 3:08 PM documented in this encounter [facility] 10-25-2024 Note HNO ID: [id number] Author: ZENAIDA CONTE RT(Cassius) Service: ? Author Type: Solar Development Engineer Type: Progress Notes Filed: 10/25/2024 15:08 Note Text: Radiology Service Progress Note DATE OF SERVICE: October 25, 2024 TIME: 3:08 PM PATIENT IDENTITY VERIFICATION COMPLETED USING TWO (2) STANDARD IDENTIFIERS: Name and Date of confirmed by patient verbally. FALL SCREENING: Has the patient had 2 falls in the last year or 1 fall with injury or currently using an Ambulatory Assistive Device (Walker, Cane, Wheelchair, Crutches, etc.)? No PATIENT GENDER DATA: Assigned male at PATIENT RELEVANT IMPLANT DATA REVIEWED: Yes PATIENT PRESENTS WITH AN IMPLANTABLE OR ATTACHED DIRECTOR OF ENROLLMENT: No ALLERGIES: Reviewed and unchanged CONTRAST ALLERGY: NO. EXAM: CT -CONTRAST INDUCED NEPHROPATHY RISK FACTORS: Patient age > 60 years CREATININE: Creatinine Date Value Ref Range Status 09/13/2024 0.98 0.73 - 1.22 mg/dL Final 03/28/2024 1.06 0.73 - 1.22 mg/dL Final 07/09/2023 0.97 0.73 - 1.22 mg/dL Final Estimated Glomerular Filtration Rate Date Value Ref Range Status 09/13/2024 85 >=60 mL/min/1.73m? Final Comment: Estimated Glomerular Filtration [...] RESULTS: POC done: Yes, See Lab Tab October 25, 2024 TREATMENT: N/A PERIPHERAL IV DATA: Ambulatory: A peripheral IV was started in the Left antecubital site with a Angio cath: 22 gauge. RADIOLOGY DEPARTMENT: CT; Exam(s) Completed: Chest Abdomen Pelvis SIGNATURE: RT Maryanne(Cassius) PATIENT NAME: Migue Gunter DATE: October 25, 2024 TIME: 3:08 PM [facility] 10-24-2024 Telephone encounter Note FABIÁN 10/10/24 01/09/25. Request for refills for Zepbound 2.5 mg and 5 mg ordered by Lucio Rodriguez APRN. Zepbound 2.5 mg is titrated up to 5 mg. Orders placed on on 10/10/24. No refill needed. [facility] 10-24-2024 Miscellaneous Notes FABIÁN 10/10/24 01/09/25. Request for refills for Zepbound 2.5 mg and 5 mg ordered by Lucio Rodriguez APRN. Zepbound 2.5 mg is titrated up to 5 mg. Orders placed on on 10/10/24. No refill needed. documented in this encounter [facility] 10-24-2024 Telephone encounter Note Called and spoke with patient Advised of MDT recommendations from meeting 2/7 Overall clinical assessment: No evidence of tumor [...] MRI response with no sign for a viable tumor. Flex sig scheduled in December 2024 for surveillance [facility] 10-24-2024 Miscellaneous Notes Called and spoke with patient Advised of MDT recommendations from meeting 2/7 Overall clinical assessment: No evidence of tumor [...] MRI response with no sign for a viable tumor. Flex sig scheduled in December 2024 for surveillance documented in this encounter [facility] 10-21-2024 Note HNO ID: [id number] Author: ESTELA AVITIA MD Service: ? Author Type: Physician Type: Progress Notes Filed: 10/21/2024 13:06 Note Text: Rectal Cancer Tumor Board Non-Operative / Active Surveillance Discussion Note Date of conference: 10/21/2024 Date of diagnosis: 05/05/2023 Pre-treatment clinical stage: [id number]. Type of neoadjuvant therapy completed: Long course chemoradiotherapy followed by consolidation chemotherapy (CORKY) Neoadjuvant therapy date of completion: 11/04/2023 Pre-treatment CEA level: 1.8 Current CEA level: CEA (ng/mL) Date Value 11/04/2023 2.8 Findings on most recent digital rectal examination and flexible sigmoidoscopy: Date: 09/13/24 No evidence of recurrence Biopsy: No Most recent MRI: Date: 10/19/24 MRI performed at: [facility]. mrTR Suspicious for tumor regrowth: [...] MRI response with no sign for a viable tumor. Clinical Trial Candidate: No Disciplines present: Colorectal Surgery, Medical Oncology, Radiation Oncology, Radiology and Anatomic Pathology This is the summary of the general discussion provided at tumor board conference. The final recommendations will be made by the primary health care team and the patient after discussing the benefits, risks and alternatives to the various treatment options. [facility] 10-21-2024 History of Present illness Narrative Rectal Cancer Tumor Board Non-Operative / Active Surveillance Discussion Note Date of conference: 10/21/2024 Date of diagnosis: 05/05/2023 Pre-treatment clinical stage: [id number]. Type of neoadjuvant therapy completed: Long course chemoradiotherapy followed by consolidation chemotherapy (CORKY) Neoadjuvant therapy date of completion: 11/04/2023 Pre-treatment CEA level: 1.8 Current CEA level: CEA (ng/mL) Date Value 11/04/2023 2.8 Findings on most recent digital rectal examination and flexible sigmoidoscopy: Date: 09/13/24 No evidence of recurrence Biopsy: No Most recent MRI: Date: 10/19/24 MRI performed at: [facility]. mrTR Suspicious for tumor regrowth: [...] MRI response with no sign for a viable tumor. Clinical Trial Candidate: No Disciplines present: Colorectal Surgery, Medical Oncology, Radiation Oncology, Radiology and Anatomic Pathology This is the summary of the general discussion provided at tumor board conference. The final recommendations will be made by the primary health care team and the patient after discussing the benefits, risks and alternatives to the various treatment options. documented in this encounter [facility] 10-17-2024 History of Present illness Narrative Radiology Service Progress Note DATE OF SERVICE: October 17, 2024 TIME: 12:21 PM PATIENT IDENTITY VERIFICATION COMPLETED USING TWO (2) STANDARD IDENTIFIERS: Name and Date of confirmed by patient verbally. FALL SCREENING: Has the patient had 2 falls in the last year or 1 fall with injury or currently using an Ambulatory Assistive Device (Walker, Cane, Wheelchair, Crutches, etc.)? No PATIENT GENDER DATA: Assigned male at PATIENT RELEVANT IMPLANT DATA REVIEWED: Yes PATIENT PRESENTS WITH AN IMPLANTABLE OR ATTACHED DIRECTOR OF ENROLLMENT: No ALLERGIES: Reviewed and unchanged CONTRAST ALLERGY: NO. EXAM: MRI - CONTRAST TYPE: GROUP II PERIPHERAL IV DATA: Ambulatory: A peripheral IV was started in the Right antecubital site with a Angio cath: 22 gauge. RADIOLOGY DEPARTMENT: MR; Exam(s) Completed: Body: Rectal SIGNATURE: RT Mike(R) PATIENT NAME: Mgiue Gunter DATE: October 17, 2024 TIME: 12:21 PM documented in this encounter [facility] 10-17-2024 Note HNO ID: [id number] Author: SAIDA GOLDSTEIN RT(R) Service: ? Author Type: Technologist Type: Progress Notes Filed: 10/17/2024 12:24 Note Text: Radiology Service Progress Note DATE OF SERVICE: October 17, 2024 TIME: 12:21 PM PATIENT IDENTITY VERIFICATION COMPLETED USING TWO (2) STANDARD IDENTIFIERS: Name and Date of confirmed by patient verbally. FALL SCREENING: Has the patient had 2 falls in the last year or 1 fall with injury or currently using an Ambulatory Assistive Device (Walker, Cane, Wheelchair, Crutches, etc.)? No PATIENT GENDER DATA: Assigned male at PATIENT RELEVANT IMPLANT DATA REVIEWED: Yes PATIENT PRESENTS WITH AN IMPLANTABLE OR ATTACHED DIRECTOR OF ENROLLMENT: No ALLERGIES: Reviewed and unchanged CONTRAST ALLERGY: NO. EXAM: MRI - CONTRAST TYPE: GROUP II PERIPHERAL IV DATA: Ambulatory: A peripheral IV was started in the Right antecubital site with a Angio cath: 22 gauge. RADIOLOGY DEPARTMENT: MR; Exam(s) Completed: Body: Rectal SIGNATURE: Saida Goldstein, RT(R) PATIENT NAME: Migue Gunter DATE: October 17, 2024 TIME: 12:21 PM [facility] 10-10-2024 Note Addended by: LUCIO RODRIGUEZ on: 10/10/2024 01:38 PM Modules accepted: Orders [facility] 10-10-2024 Miscellaneous Notes Addended by: LUCIO RODRIGUEZ on: 10/10/2024 01:38 PM Modules accepted: Orders documented in this encounter [facility] 10-10-2024 Instructions Lucio Rodriguez APRN.CNP - 10/10/2024 11:08 AM EST Images from the original note were not included. Nutrition Goal: See nutrition tips below. Nutrition consult placed. Physical Activity Goal: start with 2-3 days per week 15-20 min workout, particularly resistance exercise-type training to improve strength and preserve muscle mass with weight loss, consider aqua therapy of bike Behavior Goal: see tips for eating away from home Sleep Goal: goal of 7-8 hours Pharmacology: -Add Zepbound 2.5 mg for 4 weeks then increase to 5 mg weekly. Follow up in 3 months. If needed I have shared medical appointments (SMA's) Thursday afternoons at 2:30 (virtual) and have an in-person SMA in [place] on Mondays at 3 pm. Call [phone] to schedule at main campus or specialty hospital at [place]. [place] office or [place] office [phone] I have placed a consult to BMI nutrition: I recommend Ragini Kennedy RD or Alejandra Flores RD. Call [phone] to schedule. Nutrition tips: 1. Do not skip meals. 2. Use protein shake 1x per day with a piece of fruit to replace any skipped meals or for breakfast - shakes should have at least 20 grams of protein and contain less than 5 grams of sugar 3. Use the Plate Method of portion control for lunch and dinner 4 oz lean meat (fish, chicken, pork tenderloin, turkey, seafood, eggs/cheese) 1/2 plate non starchy vegetables (salad, greens, cabbage, spinach, brussels sprouts, broccoli, carrots, celery, peppers, green beans, cauliflower) 1/4 plate starch/starchy vegetables (corn, peas, barnett beans, winter squash, sweet potato, rice, pasta, potato) 4. Physical activity: Increase exercise to goal of 150 -200 minutes per week. Include a mix of cardio and weight resistance. 5. Drink 64 ounces per day of water. You may have 1-2 servings per day of sugar-free beverages. Avoid alcohol. Tips for eating away from home: Dynadec video: https://www.PasswordBank.com/watch?v=V 9oFJWoNYoA Meals away from home make it harder to control ingredients, calories, and portions. This can be particularly challenging for people with Type 2 diabetes (and for those of us trying to avoid getting this condition). The following tips can help you enjoy eating out without abandoning your efforts to eat well. Ask how the food is prepared. Before you order, ask about ingredients and how the menu selections are prepared. Try to choose dishes made with whole grains, healthy oils, vegetables, and lean proteins. Meat that has been broiled, poached, baked, or grilled is a more health-conscious option than fried foods or dishes prepared with heavy sauces. Look for less. Your eyes are the perfect instrument for sizing up portion sizes. Use your estimating techniques to size up the food on your plate. 1 thumb tip = 1 teaspoon of peanut butter, butter, or sugar 1 finger = 1 oz. of cheese 1 fist = 1 cup cereal, pasta, or vegetables 1 handful = 1 oz. of nuts or pretzels 1 palm = 3 oz. of meat, fish, or poultry Plan on eating half your meal and take the rest home to enjoy for lunch or dinner the next day. Order an extra side of veggies. Non-starchy vegetables, such as green beans, broccoli, asparagus, or summer squash, will help you fill up with low-calorie choices. Think ahead. Learn important nutrition information ahead of time. Most fast-food chains provide calories, sodium, and fat content for their menu items. Check out www.Parchment for a listing of over 50,000 foods, including many restaurant items. You can also visit company-specific websites Dining Out Tips Dining out is tricky. You have less control over ingredients & portions so even when you think you re ordering healthy, it s likely way more calories & less nutrition than a similar meal you d make at home. Research shows people who do best losing weight & keeping it off don t dine out much only 2.5 times out of 21 meals in a week. So, when you do dine out, make sure to use these PRO TIPS to keep your body happy DINE OUT LIKE A PRO 1. RUIN Your Appetite. About 1.5 hrs before you go out, eat something to cut hunger so you don t get to the restaurant & dive head first into the breadbasket. Try a produce + protein snack such as an apple + almonds or celery + sunflower seed butter. 2. Know BEFORE You Go. Do a few minutes of research before you re swept up in a whirlwind of socializing & drinking. This could be as simple as perusing the online menu on your phone on the ride to the restaurant. 3. Order a Vice-Virtue BUNDLE. Pair a healthy superfood with a less-healthy craving. It s the only way to honor both your inner health nut and wild child. At a [facility] joint and really want the pulled pork? Get it - but instead of plopping it on a refined grain bun, ask to put it alongside a salad. 4. Limit FLAVORS. Research shows variety stimulates appetite, meaning tasting little bits of many different foods will trigger you to over eat. So if you find yourself facing a tableful of small plates or buffet-style eating, commit to your absolute favorites rather than sampling every option. 5. Entree + ONE. It s often not just the meal that racks up CRAP calories, it s also the add-on apps + drinks + desserts. Focus on your main and skip these extras, or at least just pick your favorite ONE. Smart: Pick an appetizer salad! When [employer] researchers gave women a 100-calorie appetizer of either a salad or garlic bread, those who had the tiny salad ended up eating 21% less of their main course. Frozen Meal guidance These days, dozens and dozens of healthier frozen meals line the freezer shelves. And thank goodness! Because with jam-packed days, at least preparing a nutritious meal can go quickly. But before you stock up, it's important to know what you should you look for in a frozen meal. Your best bet is one with less than 500 calories and no more than 600 milligrams of sodium. You also don t want to go too low in calories -- if a meal sits below the 300- to 350-calorie kevin, you ll want to beef it up with a side of lean protein like shrimp or lentils, a healthy fat such as avocado or olives, or a fruit or starchy vegetable. And you ll want to aim for a meal with at least 10 grams of protein and 3 grams of fiber. These nutrients help keep you garcia for longer, so you won't be raiding the pantry a few hours later. Don t forget to keep these pointers in mind when reading the ingredients list: Look for a whole food. Ingredients are listed in descending order of weight. So ideally, the first ingredient will be a whole food -- for instance, a protein (such as chicken or beans), a fruit or vegetable or a whole grain. Avoid trans fats. Steer clear of ingredient lists that contain partially hydrogenated oil, a flag that a meal contains trans fats. Here are seven radio station operator picks to consider adding to your grocery list. You ll see that not every single meal on this list fits the guidelines above. In those cases, follow their expert suggestions for doctoring up a meal in mere minutes (or seconds!) to help it fit this criteria. https://www.Smokazon.com.com/better/po p-culture/zgcrpij-weqfmq-vryhq-7- sonoqyggeukh-hikttvns-yjluobc-okn b523938 TIRZEPATIDE (Zepbound) Tirzepatide delays gastric emptying and has the potential to alter absorption of oral medications. This is important in patients taking narrow therapeutic index drugs or drugs that need a minimum blood level for efficacy. If you are taking oral contraceptives switch to a non-oral contraceptive method or add a barrier contraceptive method for 4 weeks after initiation of tirzepatide and for 4 weeks after each dose escalation. The most common side effects of Zepbound include nausea, diarrhea, decreased appetite, vomiting, constipation, indigestion, and stomach (abdominal) pain. Video Instructions for Injecting Zepbound: www.[employer] Link to savings card https://www.[employer] - [employer]istema [employer] Inform[employer] do Investidor/co verage-savings Tirzepatide: Patient drug information What is Zepbound? Zepbound is an injectable prescription medicine that may help adults with obesity, or with excess weight (overweight) who also have weight-related medical problems, lose weight and keep it off. Zepbound should be used with a reduced-calorie diet and increased physical activity. Zepbound works by activating 2 hormone receptors. It reduces appetite, food intake, body fat, and body weight. Zepbound contains tirzepatide and should not be used with other tirzepatide-containing products or any GLP-1 receptor agonist medicines. It is not known if Zepbound is safe and effective when taken with other prescription, gpzq-mxh-oumkymb, or herbal weight loss products. It is not known if Zepbound can be used in people who have had pancreatitis. It is not known if Zepbound is safe and effective for use in children under 18 years of age. Zepbound may cause serious side effects, including: Inflammation of the pancreas (pancreatitis). Stop using Zepbound and call your healthcare provider right away if you have severe pain in your stomach area (abdomen) that will not go away, with or without vomiting. You may feel the pain from your abdomen to your back. Low blood sugar (hypoglycemia). Your risk for getting low blood sugar may be higher if you use Mounjaro with another medicine that can cause low blood sugar, such as a sulfonylurea or insulin. Signs and symptoms of low blood sugar may include dizziness or light-headedness, sweating, confusion or drowsiness, headache, blurred vision, slurred speech, shakiness, fast heartbeat, anxiety, irritability, or mood changes, hunger, weakness and feeling jittery. Serious allergic reactions. Stop using Zepbound and get medical help right away if you have any symptoms of a serious allergic reaction, including swelling of your face, lips, tongue or throat, problems breathing or swallowing, severe rash or itching, fainting or feeling dizzy, and very rapid heartbeat. Kidney problems (kidney failure). In people who have kidney problems, diarrhea, nausea, and vomiting may cause a loss of fluids (dehydration), which may cause kidney problems to get worse. It is important for you to drink fluids to help reduce your chance of dehydration. Severe stomach problems. Stomach problems, sometimes severe, have been reported in people who use Zepbound. Tell your healthcare provider if you have stomach problems that are severe or will not go away. Changes in vision. Tell your healthcare provider if you have changes in vision during treatment with Zepbound. Gallbladder problems. Gallbladder problems have happened in some people who use Mounjaro. Tell your healthcare provider right away if you get symptoms of gallbladder problems, which may include pain in your upper stomach (abdomen), fever, yellowing of skin or eyes (jaundice), and torey-colored stools. Common side effects The most common side effects of Zepbound include nausea, diarrhea, vomiting, constipation, stomach (abdominal) pain, indigestion, injection site reactions, feeling tired, allergic reactions, belching, hair loss, and heartburn. These are not all the possible side effects of Zepbound. Talk to your healthcare provider about any side effect that bothers you or doesn t go away. Tell your healthcare provider if you have any side effects. You can report side effects at 2-808-WVK-1871 or www.fda.gov/medwatch. Before using Zepbound Your healthcare provider should show you how to use Zepbound before you use it for the first time. Tell your healthcare provider if you are taking medicines to treat diabetes including insulin or sulfonylureas which could increase your risk of low blood sugar. Talk to your healthcare provider about low blood sugar levels and how to manage them. If you take control pills by mouth, talk to your healthcare provider before you use Zepbound. control pills may not work as well while using Zepbound. Your healthcare provider may recommend another type of control for 4 weeks after you start Zepbound and for 4 weeks after each increase in your dose of Zepbound. Review these questions with your healthcare provider: ? Do you have other medical conditions, including problems with your pancreas or kidneys, or severe problems with your stomach, such as slowed emptying of your stomach (gastroparesis) or problems digesting food? ? Do you take diabetes medicines, such as insulin or sulfonylureas? ? Do you have a history of diabetic retinopathy? ? Do you take any other prescription medicines or [id number]-[id number] drugs, vitamins, or herbal supplements? ? Are you , plan to become , , or plan to breastfeed? Zepbound may harm your unborn baby. Tell your healthcare provider if you become while using Zepbound. It is not known if Zepbound passes into your breast milk. You should talk with your healthcare provider about the best way to feed your baby while using Zepbound. Exposure Registry: There will be a exposure registry for women who have taken Zepbound during . The purpose of this registry is to collect information about the health of you and your baby. Talk to your healthcare provider about how you can take part in this registry, or you may contact [employer] at 9-306-ZiqtiIm ( ). https://www.zepbPeer60.[employer]/?g clid=[email or web address] Warning This drug has been shown to cause thyroid cancer in some animals. It is not known if this happens in humans. If thyroid cancer happens, it may be deadly if not found and treated early. Call your doctor right away if you have a neck mass, trouble breathing, trouble swallowing, or have hoarseness that will not go away. Do not use this drug if you have a health problem called Multiple Endocrine Neoplasia syndrome type 2 (MEN 2), or if you or a family member have had medullary thyroid cancer. Have your blood work checked and thyroid ultrasounds as you have been told by your doctor. What is this drug used for? Zepbound is an injectable prescription medicine that may help adults with obesity, or with excess weight (overweight) who also have weight-related medical problems, lose weight and keep it off. Zepbound should be used with a reduced-calorie diet and increased physical activity. What do I need to tell my doctor BEFORE I take this drug? If you are allergic to this drug; any part of this drug; or any other drugs, foods, or substances. Tell your doctor about the allergy and what signs you had. If you have type 1 diabetes. Do not use this drug to treat type 1 diabetes. If you have ever had pancreatitis. If you have stomach or bowel problems. This is not a list of all drugs or health problems that interact with this drug. Tell your doctor and pharmacist about all of your drugs (prescription or OTC, natural products, vitamins) and health problems. You must check to make sure that it is safe for you to take this drug with all of your drugs and health problems. Do not start, stop, or change the dose of any drug without checking with your doctor. What are some things I need to know or do while I take this drug? Tell all of your health care providers that you take this drug. This includes your doctors, nurses, pharmacists, and dentists. Wear disease medical alert ID (identification). Follow the diet and workout plan that your doctor told you about. Check your blood sugar as you have been told by your doctor. Do not drive if your blood sugar has been low. There is a greater chance of you having a crash. control pills may not work as well to prevent . If you take control pills, you may need to switch to another type of hormone-based control like a vaginal ring if your doctor tells you to. If another type of hormone-based control is not an option, use some other kind of control also, like a condom. Do this for 4 weeks after starting this drug and for 4 weeks each time the dose is raised. This drug may prevent other drugs taken by mouth from getting into the body. If you take other drugs by mouth, you may need to take them at some other time than this drug. Talk with your doctor. It may be harder to control blood sugar during times of stress such as fever, infection, injury, or surgery. A change in physical activity, exercise, or diet may also affect blood sugar. Talk with your doctor before you drink alcohol. Do not share with another person even if the needle has been changed. Sharing your tray or pen may pass infections from one person to another. This includes infections you may not know you have. If you cannot drink liquids by mouth or if you have upset stomach, throwing up, or diarrhea that does not go away; you need to avoid getting dehydrated. Contact your doctor to find out what to do. Dehydration may lead to new or worse kidney problems. A severe and sometimes deadly pancreas problem (pancreatitis) has happened with other drugs like this one. Tell your doctor if you are , plan on getting , or are breast-feeding. You will need to talk about the benefits and risks to you and the baby. What are some side effects that I need to call my doctor about right away? WARNING/CAUTION: Even though it may be rare, some people may have very bad and sometimes deadly side effects when taking a drug. Tell your doctor or get medical help right away if you have any of the following signs or symptoms that may be related to a very bad side effect: Signs of an allergic reaction, like rash; hives; itching; red, swollen, blistered, or peeling skin with or without fever; wheezing; tightness in the chest or throat; trouble breathing, swallowing, or talking; unusual hoarseness; or swelling of the mouth, face, lips, tongue, or throat. Signs of kidney problems like unable to pass urine, change in how much urine is passed, blood in the urine, or a big weight gain. Signs of gallbladder problems like pain in the upper right belly area, right shoulder area, or between the shoulder blades; yellow skin or eyes; fever with chills; bloating; or very upset stomach or throwing up. Signs of a pancreas problem (pancreatitis) like very bad stomach pain, very bad back pain, or very bad upset stomach or throwing up. Dizziness or passing out. A fast heartbeat. Change in eyesight. Low blood sugar can happen. The chance may be raised when this drug is used with other drugs for diabetes. Signs may be dizziness, headache, feeling sleepy or weak, shaking, fast heartbeat, confusion, hunger, or sweating. Call your doctor right away if you have any of these signs. Follow what you have been told to do for low blood sugar. This may include taking glucose tablets, liquid glucose, or some fruit juices. What are some other side effects of this drug? All drugs may cause side effects. However, many people have no side effects or only have minor side effects. Call your doctor or get medical help if any of these side effects or any other side effects bother you or do not go away: Constipation, diarrhea, stomach pain, upset stomach, throwing up, or feeling less hungry. Heartburn. These are not all of the side effects that may occur. If you have questions about side effects, call your doctor. Call your doctor for medical advice about side effects. You may report side effects to your national health agency. How is this drug best taken? Use this drug as ordered by your doctor. Read all information given to you. Follow all instructions closely. It is given as a shot into the fatty part of the skin on the top of the thigh, belly area, or upper arm. If you will be giving yourself the shot, your doctor or nurse will teach you how to give the shot. Keep taking this drug as you have been told by your doctor or other health care provider, even if you feel well. Take the same day each week. Move site where you give the shot each time. Take with or without food. Wash your hands before and after use. Do not use if the solution is leaking or has particles. This drug is colorless to a faint yellow. Do not use if the solution changes color. If you are also using insulin, you may inject this drug and the insulin in the same area of the body but not right next to each other. Do not mix this drug in the same syringe with insulin. Do not move this drug from the pen to a syringe. Each pen is for one use only. Throw away any part of the used pen after the dose is given. Throw away needles in a needle/sharp disposal box. Do not reuse needles or other items. When the box is full, follow all local rules for getting rid of it. Talk with a doctor or pharmacist if you have any questions. What do I do if I miss a dose? If it is within 4 days after the missed dose, take the missed dose and go back to your normal day. If it has been more than 4 days since the missed dose, skip the missed dose and go back to your normal day. Do not take 2 doses at the same time or extra doses. How do I store and/or throw out this drug? Store in a refrigerator. Do not freeze. Do not use if it has been frozen. If needed, each pen may be stored at room temperature for up to 21 days. If you store at room temperature, throw away any part not used after 21 days. Protect from heat. Store in the original container to protect from light. Keep all drugs in a safe place. Keep all drugs out of the reach of children and pets. Throw away unused or drugs. Do not flush down a toilet or pour down a drain unless you are told to do so. Check with your pharmacist if you have questions about the best way to throw out drugs. There may be drug take-back programs in your area. General drug facts If your symptoms or health problems do not get better or if they become worse, call your doctor. Do not share your drugs with others and do not take anyone else's drugs. Some drugs may have another patient information leaflet. If you have any questions about this drug, please talk with your doctor, nurse, pharmacist, or other health care provider. If you think there has been an overdose, call your poison control center or get medical care right away. Be ready to tell or show what was taken, how much, and when it happened. Last Reviewed [id number] Consumer Information Use and Disclaimer This generalized information is a limited summary of diagnosis, treatment, and/or medication information. It is not meant to be comprehensive and should be used as a tool to help the user understand and/or assess potential diagnostic and treatment options. It does NOT include all information about conditions, treatments, medications, side effects, or risks that may apply to a specific patient. It is not intended to be medical advice or a substitute for the medical advice, diagnosis, or treatment of a health care provider based on the health care provider's examination and assessment of a patient's specific and unique circumstances. Patients must speak with a health care provider for complete information about their health, medical questions, and treatment options, including any risks or benefits regarding use of medications. This information does not endorse any treatments or medications as safe, effective, or approved for treating a specific patient. [employer]. and its affiliates disclaim any warranty or liability relating to this information or the use thereof. The use of this information is governed by the Terms of Use, available at https://www.[employer].com/en/ know/krqenkdo-rzrhcylybdhfc-hoqno . documented in this encounter [facility] 10-10-2024 Note HNO ID: [id number] Author: LUCIO RODRIGUEZ APRN.CLINICAL LAB SCIENTIST Service: ? Author Type: Nurse Practitioner Type: Progress Notes Filed: 10/10/2024 11:22 Note Text: BMI Obesity Medicine Consult October 10, 2024 Consultation requested by Ernesto Aguiar MD for an opinion regarding Obesity. My final recommendations will be communicated back to the requesting physician by way of shared Medical record or letter to requesting physician via [place] mail. Patient Summary: Migue Gunter is a 64 year old male with obesity who presents to the [facility] for an initial evaluation of his obesity and is interested in non-surgical weight loss approaches. Primary reason for wanting obesity treatment : Reduction of cancer risk Overall goal: 220 lbs Weight History: He reports a family history of obesity and early onset weight gain. He states his weight gain is related to the following factors, including reduced physical activity, consumption of unhealthy foods, and inadequate sleep duration. Weight Graph: (please see graph scanned in chart) Medications: NA Weight Promoting Medications: SSRI Diet: Quality of diet: 24hr recall suggests unhealthy diet. Characterization of diet:Unstructured, increased consumption of sugar sweetened beverages, and skip meals. 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 Eating Disorder no B: skips or egg sandwich L: doesn't pack lunch, eats out subway or BBQ D:chili Snacks: popcorn or crackers Beverages:water and pop 2 regular per week. Diet History: Past weight loss attempts? self-directed. Increased physical activity. Low-sodium diet. Exercise: Regular exercise: No Strength/resistance exercise:No Barriers to regular exercise? Back pain Work-related activity:Sedentary. ?Sleep: Duration: 7 hours. CORRINA YES ; CPAP YES Quality:adequate, Few awakenings :Sleep-wake cycle disruption:No. Take naps. Wakes: 6 am Bedtime: 9 pm ??Stress: Some, Cause:Work Obesity Related Comorbidities: Prior Weight Loss Surgery:No ACTIVE PROBLEM LIST Personal History of Colonic Polyps PAST SURGICAL HISTORY Procedure Laterality Date COLONOSCOPY FLX DX W/COLLJ SPEC WHEN PFRMD PAST SURGICAL HISTORY OF 1990 herniated bowel PAST SURGICAL HISTORY OF [facility] PAST SURGICAL HISTORY OF Left 1970 left hip displacement Obesity ROS/ FHx GEN: Fatigue:Yes CV: h/o palpitations/cardiac arrhythmia, CP:Yes, afib with ablation last week. On coumadin. PULM: Asthma:Yes, hx of pulmonary embolism GI: GERD:Yes; Gallstones: Yes; Fatty liver disease:Yes; H/o hernia:Yes, inguinal, herniated bowel Rectal cancer MSK: Joint Pain:Yes, right hip arthritis, Spinal stenosis : Nephrolithiasis:Yes; Stress incontinence:No Thyroid nodules, has been told he has had some high blood sugars NEURO: Migraines/DOMÍNGUEZ:No; H/o seizures: No Glaucoma:No; Cataracts No Symptoms of pseudotumor cerebri:No The physical systems reviewed reveal no pathological symptoms that are pertinent to this visit Family History Problem Relation Age of Onset Cancer Paternal Uncle lung Coronary Artery Disease Maternal Grandmother Allergies Sister Ischemic Heart Disease Mother Diabetes Mother Hypertension Mother Aneurysm Father No Known Problems Brother Heart disease Paternal Grandmother PREV: PAP n/a, Mammogram n/a and Colonoscopy UTD Social History Social History Tobacco Use Smoking status: Never Smokeless tobacco: Never Substance Use Topics Alcohol use: Yes Comment: little Drug use: No 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 NAD. Central adiposity. Waist circumference not measured. No acanthosis, no lipoma, no pallor. No supraclavicular adiposity. No dorsal adiposity. PERRL. Tongue moist, pink. + OP crowding. Good dental hygiene RRR nl. s1s2 CTAB Abdomen Soft Protuberant ; No striae. NT/ND. No peripheral edema Results: reviewed with the patient Appointment on 09/13/2024 Component Date Value Ref Range Status Creatinine 09/13/2024 0.98 0.73 - 1.22 mg/dL Final Estimated Glomerular Filtration Ra* 09/13/2024 85 >=60 mL/min/1.73m? Final Impression: Migue Gunter is a 64 year old male with Class III obesity (There is no height or weight on file to calculate BMI.) who has early onset obesity with gradual weight gain. The causes of his obesity are multifactorial, biological, psychological and social and environmental. Specific factors include a genetic component related to a strong family of obesity, exposure to weight gain promoting medication(s) , increased consumption of high calorie/process foods, irregular eating patterns , suboptimal physical activity, and poor sleep quality. He has several weight-related medical comorbidities which increase his cardiovascular mortality risk. There are additional metabolic (more content not included)... [facility] 10-10-2024 History of Present illness Narrative Images from the original note were not included. BMI Obesity Medicine Consult October 10, 2024 Consultation requested by Ernesto Aguiar MD for an opinion regarding Obesity. My final recommendations will be communicated back to the requesting physician by way of shared Medical record or letter to requesting physician via [place] mail. Patient Summary: Migue Gunter is a 64 year old male with obesity who presents to the [facility] for an initial evaluation of his obesity and is interested in non-surgical weight loss approaches. Primary reason for wanting obesity treatment : Reduction of cancer risk Overall goal: 220 lbs Weight History: He reports a family history of obesity and early onset weight gain. He states his weight gain is related to the following factors, including reduced physical activity, consumption of unhealthy foods, and inadequate sleep duration. Weight Graph: (please see graph scanned in chart) Medications: NA Weight Promoting Medications: SSRI Diet: Quality of diet: 24hr recall suggests unhealthy diet. Characterization of diet:Unstructured, increased consumption of sugar sweetened beverages, and skip meals. 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 Eating Disorder no B: skips or egg sandwich L: doesn't pack lunch, eats out subway or BBQ D:chili Snacks: popcorn or crackers Beverages:water and pop 2 regular per week. Diet History: Past weight loss attempts? self-directed. Increased physical activity. Low-sodium diet. Exercise: Regular exercise: No Strength/resistance exercise:No Barriers to regular exercise? Back pain Work-related activity:Sedentary. ?Sleep: Duration: 7 hours. CORRINA YES ; CPAP YES Quality:adequate, Few awakenings :Sleep-wake cycle disruption:No. Take naps. Wakes: 6 am Bedtime: 9 pm ??Stress: Some, Cause:Work Obesity Related Comorbidities: Prior Weight Loss Surgery:No ACTIVE PROBLEM LIST Personal History of Colonic Polyps PAST SURGICAL HISTORY Procedure Laterality Date COLONOSCOPY FLX DX W/COLLJ SPEC WHEN PFRMD PAST SURGICAL HISTORY OF 1990 herniated bowel PAST SURGICAL HISTORY OF [facility] PAST SURGICAL HISTORY OF Left 1970 left hip displacement Obesity ROS/ FHx GEN: Fatigue:Yes CV: h/o palpitations/cardiac arrhythmia, CP:Yes, afib with ablation last week. On coumadin. PULM: Asthma:Yes, hx of pulmonary embolism GI: GERD:Yes; Gallstones: Yes; Fatty liver disease:Yes; H/o hernia:Yes, inguinal, herniated bowel Rectal cancer MSK: Joint Pain:Yes, right hip arthritis, Spinal stenosis : Nephrolithiasis:Yes; Stress incontinence:No Thyroid nodules, has been told he has had some high blood sugars NEURO: Migraines/DOMÍNGUEZ:No; H/o seizures: No Glaucoma:No; Cataracts No Symptoms of pseudotumor cerebri:No The physical systems reviewed reveal no pathological symptoms that are pertinent to this visit Family History Problem Relation Age of Onset Cancer Paternal Uncle lung Coronary Artery Disease Maternal Grandmother Allergies Sister Ischemic Heart Disease Mother Diabetes Mother Hypertension Mother Aneurysm Father No Known Problems Brother Heart disease Paternal Grandmother PREV: PAP n/a, Mammogram n/a and Colonoscopy UTD Social History Social History Tobacco Use Smoking status: Never Smokeless tobacco: Never Substance Use Topics Alcohol use: Yes Comment: little Drug use: No 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 NAD. Central adiposity. Waist circumference not measured. No acanthosis, no lipoma, no pallor. No supraclavicular adiposity. No dorsal adiposity. PERRL. Tongue moist, pink. + OP crowding. Good dental hygiene RRR nl. s1s2 CTAB Abdomen Soft Protuberant ; No striae. NT/ND. No peripheral edema Results: reviewed with the patient Appointment on 09/13/2024 Component Date Value Ref Range Status Creatinine 09/13/2024 0.98 0.73 - 1.22 mg/dL Final Estimated Glomerular Filtration Ra* 09/13/2024 85 >=60 mL/min/1.73m Final Impression: Migue Gunter is a 64 year old male with Class III obesity (There is no height or weight on file to calculate BMI.) who has early onset obesity with gradual weight gain. The causes of his obesity are multifactorial, biological, psychological and social and environmental. Specific factors include a genetic component related to a strong family of obesity, exposure to weight gain promoting medication(s) , increased consumption of high calorie/process foods, irregular eating patterns , suboptimal physical activity, and poor sleep quality. He has several weight-related medical comorbidities which increase his cardiovascular mortality risk. There are additional metabolic obesity complications including dyslipidemia, hypertension, obstructive sleep apnea, and elevated LFTs s/o non alcoholic fatty liver disease. Other medical conditions as above. Regarding his lifestyle, as above, he has several behavioral contributors; his physical activity is non-existent. Overall, it is clear that his quality of life is severely compromised by his weight. It is likely a combination of weight loss therapies will be needed. He appears motivated today. Interested in adding Zepbound (tirzepetide) for treatment of obesity today. Denies family history of thyroid cancer, MEN2 or pancreatitis. Educated on increased risk for inflammation of the pancreas (pancreatitis), gallbladder problems (including gallstones), low blood sugar, acute kidney injury, diabetic retinopathy (damage to the eye's retina), increased heart rate and suicidal behavior or thinking. Prescription sent today and detailed instructions on how to use the pen provided in the patient instructions. Patient also referred to [email or web address] for injection training video and encouraged to reach out if in-person pen training is needed. Plan: -- Based on the severity and resistance of the obesity to more conservative weight loss approaches, I believe a surgical intervention is the best and most appropriate prison therapeutic option. -- We discussed several strategies to track food intake and increase mindfulness around eating. He was counseled on Meal replacements -- Encouraged the patient to improve his physical activity. Although cardiovascular exercise is most beneficial for weight loss initially, we discussed healthy muscle from a combination of resistance training and cardiovascular exercise is the best 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 administrator plan. An overall goal of 200 minutes per week of exercise has been effective in weight loss and maintenance. -- follow-up visit for management of above interventions Nutrition Goal: See nutrition tips below. Nutrition consult placed. Physical Activity Goal: start with 2-3 days per week 15-20 min workout, particularly resistance exercise-type training to improve strength and preserve muscle mass with weight loss, consider aqua therapy of bike Behavior Goal: see tips for eating away from home Sleep Goal: goal of 7-8 hours Pharmacology: -Add Zepbound 2.5 mg for 4 weeks then increase to 5 mg weekly. Follow up in 3 months. Lucio Rodriguez APRN.CNP I spent a total of 55 minutes on the date of the service which included preparing to see the patient, [id number] patient care, completing clinical documentation, obtaining and/or reviewing separately obtained history, performing a medically appropriate examination, counseling and educating the patient/family/caregiver, and ordering medications, tests, or procedures. documented in this encounter [facility] 10-04-2024 Note Formatting of this n ote might be different from the original. Pt ambulated in hallway with supervision. Right groin dressing remains dry and intact. [facility] 10-04-2024 Note Formatting of this n ote might be different from the original. Pt ambulated in hallway with supervision. Right groin dressing remains dry and intact. [facility] 10-04-2024 Miscellaneous Notes Pt ambulated in hallway with supervision. Right groin dressing remains dry and intact. documented in this encounter [facility] 10-04-2024 History of Present illness Narrative Patient seen in prep and recovery s/p PVI + PW. Resting comfortably in bed without complaints. Right groin stable without hematoma. Post-PVI restrictions reviewed. Ambulation after 2 1/2 hours of bedrest. If groin remains stable after ambulation, plan for discharge home. Follow up with Chetna Solomon APRN in one month. Remain on uninterrupted anticoagulation unless otherwise instructed by our office. documented in this encounter [facility] 10-04-2024 Note Patient: Migue arenas Procedure Summary Date: 10/04/24 Room / Location: [facility] EP LAB 1 / [facility] Cardiac Cath Labs Anesthesia Start: 1153 Anesthesia Stop: 1317 Procedure: Ablation a-fib paroxysmal Diagnosis: Paroxysmal atrial fibrillation (HCC) (Paroxysmal atrial fibrillation (HCC) [I48.0]) Providers: Aylin Henry MD Responsible Provider: Jayro Goode MD Anesthesia Type: general ASA Status: 2 Anesthesia Type: general Vitals Value Taken Time BP 117/44 10/04/24 1322 Temp 97 10/04/24 1322 Pulse 67 10/04/24 1322 Resp 18 10/04/24 1322 SpO2 97 10/04/24 1322 Anesthesia Post Evaluation Patient location during evaluation: PACU Patient participation: complete - patient participated Level of consciousness: awake and alert Pain management: satisfactory to patient Airway patency: patent Dental Injury: no Cardiovascular status: acceptable, blood pressure returned to baseline and hemodynamically stable Respiratory status: acceptable, spontaneous ventilation and room air Hydration status: euvolemic Nausea/Vomiting: controlled No notable events documented. Patient can be discharged once all PACU criteria has been met. [facility] 10-04-2024 Note Patient: Migue arenas Procedure Summary Date: 10/04/24 Room / Location: [facility] EP LAB / [facility] Cardiac Cath Labs Anesthesia Start: 1153 Anesthesia Stop: 1317 Procedure: Ablation a-fib paroxysmal Diagnosis: Paroxysmal atrial fibrillation (HCC) (Paroxysmal atrial fibrillation (HCC) [I48.0]) Providers: Aylin Henry MD Responsible Provider: Jayro Goode MD Anesthesia Type: general ASA Status: 2 Anesthesia Type: general Vitals Value Taken Time BP 117/44 10/04/24 1321 Temp 97.4 10/04/24 1321 Pulse 68 10/04/24 1321 Resp 18 10/04/24 1321 SpO2 97 10/04/24 1321 Anesthesia Post Evaluation Patient location during evaluation: PACU Patient participation: complete - patient participated Level of consciousness: awake and alert Pain management: satisfactory to patient Multimodal analgesia pain management approach Airway patency: patent Two or more strategies used to mitigate risk of obstructive sleep apnea Cardiovascular status: acceptable and hemodynamically stable Respiratory status: acceptable Hydration status: acceptable No notable events documented. MIPS #430 PONV Patient received an inhalational anesthetic (4554F) Patient does not exhibit three or more risk factors for PONV (X0430)) MIPS # 424 Perioperative Temperature Management Anesthesia time was 60 minutes or longer (4255F) Anesthesai administered was General (inhalational or TIVA) or Neuraxial block (X0424) At least one body temperature greater than 95.8F/35.5C achieved within the 30 mins immediately prior to or the 15 minutes immediately following anesthesia end time (G9771) MIPS #477 Multimodal Pain Management Not emergent case Patient was administered multimodal pain management (two or more drugs and/or interventions excluding systemic opioids) in the periopeartive period occurring at some time between 6 hours prior to anesthesia start time until discharged from PACU (G2148) MIPS #404 Anesthesiology Smoking Abstinence The patient is not a current smoker (e.g. cigarette, cigar, pipe, e-cigarette/vaping/marijuana) If no stop here (XX404) I completed my handoff to the receiving clinician during which we: 1. Identified the patient 2. Identified the responsible provider 3. Reviewed the pertinent medical history 4. Discussed the surgical course 5. Reviewed intra-op anesthesia management and issues during anesthesia 6. Set expectations for post-procedure period 7. Allowed opportunity for questions and acknowledgement of understanding. [facility] 10-04-2024 Note Patient: Migue arenas Procedure Information Anesthesia Start Date/Time: 10/04/24 1153 Procedure: Ablation a-fib paroxysmal Location: [facility] EP LAB / [facility] Cardiac Cath Labs Providers: Aylin Henry MD Relevant Problems Cardio (+) Paroxysmal atrial fibrillation (HCC) Past Medical History: Past Medical History: No date: Atrial flutter (HCC) 2018: DVT (deep venous thrombosis) (HCC) No date: HTN (hypertension) No date: Hyperlipemia No date: Obese No date: CORRINA on CPAP No date: PAF (paroxysmal atrial fibrillation) (HCC) No date: Pulmonary emboli (HCC) Past Surgical History: Past Surgical History: No date: APPENDECTOMY No date: 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 ETOH: has no history on file for alcohol use. Social History Substance and Sexual Activity Drug Use Not on file Family History: No family history on file. Screening: unknown Clinical information reviewed: Allergies Meds Physical Exam Airway Mallampati: II TM distance: >3 FB Neck ROM: full Mouth Open: normalendotracheal tube not in place Cardiovascular Rhythm: irregular Rate: normal Dental Pulmonary Breath sounds clear to auscultation Abdominal Anesthesia Plan patient is NPO appropriate Any family history or previous problems with anesthesia no ASA 2 general Any family history or previous problems with anesthesia no The patient is not a current smoker. Anesthetic plan and risks discussed with patient. CORRINA Screening Labs: Lab Results Component Value Date WBC 5.5 09/20/2024 HGB 13.2 09/20/2024 HCT 41.5 09/20/2024 MCV 93.5 09/20/2024 PLT 261 09/20/2024 Lab Results Component Value Date NA 137 10/04/2024 K 5.1 10/04/2024 CL 110 (H) 10/04/2024 CO2 17 (L) 10/04/2024 BUN 25 (H) 10/04/2024 CREATININE 0.95 10/04/2024 GLUCOSE 106 10/04/2024 CALCIUM 8.9 10/04/2024 EGFR 88.3 10/04/2024 No echocardiogram results found for the past 14 days 09/05/24 ECG 12-LEAD 09/29/2024 6:56 PM (Final) Narrative Sinus Rhythm -With rate variation cv = 13. WITHIN NORMAL LIMITS Signed by: Josh Lr on 09/29/2024 6:56 PM Equipment Requests: Additional Equipment Requests [facility] 10-04-2024 Note Airway Date/Time: 10/04/2024 12:10 PM Urgency: scheduled Airway not difficult General Information and Staff Patient location during procedure: Procedural Resident/WELDER/FABRICATOR: Joshua Arciniega APRN - WELDER/FABRICATOR Performed: WELDER/FABRICATOR Indications and Patient Condition Indications for airway management: anesthesia Sedation level: Asleep Preoxygenated: yes Patient position: sniffing MILS maintained throughout Mask difficulty assessment: 1 - vent by mask Final Airway Details Final airway type: endotracheal airway Successful airway: ETT Cuffed: yes Successful intubation technique: direct laryngoscopy Facilitating devices/methods: intubating stylet and anterior pressure/BURP Endotracheal tube insertion site: oral Blade: Destini Blade size: #3 ETT size (mm): 7.0 Cormack-Lehane Classification: grade IIa - partial view of glottis Placement verified by: chest auscultation Measured from: lips ETT to lips (cm): 21 Number of attempts at approach: 1 Number of other approaches attempted: 0 Additional Comments Atraumatic intubation, dentition and oral cavity remains intact from baseline. [facility] 10-04-2024 Note I have examined the patient on admission and confirm that the necessity for the procedure is still present. The patient's condition has not changed since the History & Physical was originally completed. Meet Sukumar Henry MD [facility] 10-04-2024 Hospital Discharge instructions ASHTYN Carrillo CNP - 10/04/2024 7:53 AM EST Post Pulmonary Vein Isolation Ablation Discharge Instructions Observe groin site for swelling, redness, warmth, or bleeding. If these occur, notify your doctor. If you develop shortness of breath, cough and/or swelling please call you doctor's office or seek emergency care for severe symptoms. You may develop mild chest discomfort with taking a deep breath post procedure which typically peaks after 3 days and then improves. If discomfort worsens please call the office. If it becomes severe please seek emergency care. No driving for the next 3 days. Do not lift anything over 10 pounds for the next 5 days. You may resume your usual exercise routine after 5 days. Slight swelling or bruising is expected. For oozing, apply pressure for 10-15 minutes For brisk bleeding that does not stop, or if your foot or leg becomes cold, come to the Emergency department Keep groin site covered overnight, remove bandage tomorrow and leave open to air No soaking in water. Showers only for the next 5 days. Resume pre-procedure diet Take all medications as prescribed by your doctor documented in this encounter [facility] 10-03-2024 Telephone encounter Note Patient called in, inquiring about medications instructions. I read the RN's note to take no morning meds. Patient had not further questions and verbalized understanding. [facility] 10-03-2024 Miscellaneous Notes Patient called in, inquiring about medications instructions. I read the RN's note to take no morning meds. Patient had not further questions and verbalized understanding. INR 2.6 on 09/27/24 Spoke to RN at PCP office. Last INR result they have is 09-20-24. Reached out to [facility] via fax request for INR results. Suspect chloride level of 4 on BMP is an error. Will redraw. Therapeutic at 2.7. Need to make sure he gets another INR drawn on 09/27. Received INR results for patient on 09-20-24. KM reviewed will have MA's enter into chart. Spoke to patient, he has had INR's done at [facility] outpatient lab. Sent request to obtain those weekly results from 09-05-24 on going. Fax request sent [phone] Patient requesting labs be sent to [facility] outpatient lab. I faxed those over [phone] Left patient VM, to inquire INR results. LVM for patient requesting update on INR status See message below from me. Do we have weekly INR's on him? Where is he getting them drawn? Procedure: PVI/ [place] Case: [id number] Date: 10-04-24 Time: 8:30a Follow up: one month with KM 11-04-24 Auth: approved Labs sent to PCP. No auth needed for PVI (AF) Ablation CPT 32906/78773 per Traditional Medicare and [employer] Medicare Supplement Guidelines Can I have an auth for PVI 10-04-24? Case request placed. Prep for proc complete. Educated Patient about PVI on 10/04/[address] Henry. Arrive at [facility] at [address], and then take the East Elevators to the 1st floor [facility] where you will check in. The hospital will call you the day prior to procedure to give you your arrival time. If you do not receive a call by 5:30 pm the day prior, call Assistant Front Office Manager at [phone]. Netting Inspector parking is available for free day of procedure, please plan accordingly. Nothing to eat or drink after midnight the night before procedure Hold all morning medications on the day of procedure. Someone must drive patient to and from procedure Please get lab work done 2 weeks prior to procedure Any questions please call Lisa at [phone] documented in this encounter [facility] 09-30-2024 Telephone encounter Note INR 2.6 on 09/27/24 [facility] 09-30-2024 Miscellaneous Notes INR 2.6 on 09/27/24 Spoke to RN at PCP office. Last INR result they have is 09-20-24. Reached out to [facility] via fax request for INR results. Suspect chloride level of 4 on BMP is an error. Will redraw. Therapeutic at 2.7. Need to make sure he gets another INR drawn on 09/27. Received INR results for patient on 09-20-24. KM reviewed will have MA's enter into chart. Spoke to patient, he has had INR's done at [facility] outpatient lab. Sent request to obtain those weekly results from 09-05-24 on going. Fax request sent [phone] Patient requesting labs be sent to [facility] outpatient lab. I faxed those over [phone] Left patient VM, to inquire INR results. LVM for patient requesting update on INR status See message below from me. Do we have weekly INR's on him? Where is he getting them drawn? Procedure: PVI/ [place] Case: [id number] Date: 10-04-24 Time: 8:30a Follow up: one month with KM 11-04-24 Auth: approved Labs sent to PCP. No auth needed for PVI (AF) Ablation CPT 18952/68099 per Traditional Medicare and [employer] Medicare Supplement Guidelines Can I have an auth for PVI 10-04-24? Case request placed. Prep for proc complete. Educated Patient about PVI on 10/04/[address] Henry. Arrive at [facility] at [address], and then take the East Elevators to the 1st floor [facility] where you will check in. The hospital will call you the day prior to procedure to give you your arrival time. If you do not receive a call by 5:30 pm the day prior, call Assistant Front Office Manager at [phone]. Netting Inspector parking is available for free day of procedure, please plan accordingly. Nothing to eat or drink after midnight the night before procedure Hold all morning medications on the day of procedure. Someone must drive patient to and from procedure Please get lab work done 2 weeks prior to procedure Any questions please call Lisa at [phone] documented in this encounter [facility] 09-30-2024 Note INR 2.6 on 09/27/24. Information added to procedure encounter. [facility] 09-30-2024 Telephone encounter Note INR 2.6 on 09/27/24. Information added to procedure encounter. [facility] 09-30-2024 Miscellaneous Notes INR 2.6 on 09/27/24. Information added to procedure encounter. Caitlyn from [facility] INR 2.7, protime 29.5 09/20/24. Faxed stat request for INR results from [place] outpatient lab. Will await response. Patient collected INR yesterday, will wait for results. INR order faxed to [facility] lab [phone] INR order placed documented in this encounter [facility] 09-29-2024 Miscellaneous Notes Caitlyn from [facility] INR 2.7, protime 29.5 09/20/24. Faxed stat request for INR results from [facility] outpatient lab. Will await response. Patient collected INR yesterday, will wait for results. INR order faxed to [facility] lab [phone] INR order placed documented in this encounter [facility] 09-29-2024 Telephone encounter Note Caitlyn from [facility] INR 2.7, protime 29.5 09/20/24. [facility] 09-29-2024 Telephone encounter Note Faxed stat request for INR results from [facility] outpatient lab. Will await response. [facility] [employer] 09-29-2024 Telephone encounter Note Spoke to RN at PCP office. Last INR result they have is 09-20-24. Reached out to [facility] via fax request for INR results. [facility] [employer] 09-29-2024 Miscellaneous Notes Spoke to RN at PCP office. Last INR result they have is 09-20-24. Reached out to [facility] via fax request for INR results. Suspect chloride level of 4 on BMP is an error. Will redraw. Therapeutic at 2.7. Need to make sure he gets another INR drawn on 09/27. Received INR results for patient on 09-20-24. KM reviewed will have MA's enter into chart. Spoke to patient, he has had INR's done at [facility] outpatient lab. Sent request to obtain those weekly results from 09-05-24 on going. Fax request sent [phone] Patient requesting labs be sent to [facility] outpatient lab. I faxed those over [phone] Left patient VM, to inquire INR results. LVM for patient requesting update on INR status See message below from me. Do we have weekly INR's on him? Where is he getting them drawn? Procedure: PVI/ [place] Case: [id number] Date: 10-04-24 Time: 8:30a Follow up: one month with KM 11-04-24 Auth: approved Labs sent to PCP. No auth needed for PVI (AF) Ablation CPT 29485/76047 per Traditional Medicare and [employer] Medicare Supplement Guidelines Can I have an auth for PVI 10-04-24? Case request placed. Prep for proc complete. Educated Patient about PVI on 10/04/[address] Henry. Arrive at [facility] at [address] [place] [address], and then take the East Elevators to the 1st floor [facility] where you will check in. The hospital will call you the day prior to procedure to give you your arrival time. If you do not receive a call by 5:30 pm the day prior, call Assistant Front Office Manager at [phone]. Netting Inspector parking is available for free day of procedure, please plan accordingly. Nothing to eat or drink after midnight the night before procedure Hold all morning medications on the day of procedure. Someone must drive patient to and from procedure Please get lab work done 2 weeks prior to procedure Any questions please call Lisa at [phone] documented in this encounter [facility] 09-28-2024 Telephone encounter Note Patient collected INR yesterday, will wait for results. [facility] 09-28-2024 Miscellaneous Notes Patient collected INR yesterday, will wait for results. INR order faxed to [facility] lab [phone] INR order placed documented in this encounter [facility] 09-27-2024 Telephone encounter Note INR order faxed to [facility] lab [phone] [facility] 09-27-2024 Miscellaneous Notes INR order faxed to [facility] lab [phone] INR order placed documented in this encounter [facility] 09-27-2024 Telephone encounter Note INR order placed [facility] 09-26-2024 Telephone encounter Note Called and spoke with patient On Watch and wait protocol AM bowel movement was WNL, PM bowel movement had small amount of blood. Has had completely normal BMs since that time. Advised that he proceed with imaging, most recent scope a few weeks ago was WNL, so not too concerned with one episode of bleeding but w his history if it occurs again he should call the office and we can get him in for an exam Imaging can be done locally,w ill ask schedulers to call him to schedule [facility] 09-26-2024 Miscellaneous Notes Called and spoke with patient On Watch and wait protocol AM bowel movement was WNL, PM bowel movement had small amount of blood. Has had completely normal BMs since that time. Advised that he proceed with imaging, most recent scope a few weeks ago was WNL, so not too concerned with one episode of bleeding but w his history if it occurs again he should call the office and we can get him in for an exam Imaging can be done locally,w ill ask schedulers to call him to schedule The patient is calling to discuss some rectal bleeding and the passing some blood clots on Thursday. He also wants to discuss having his imaging done locally. [phone] documented in this encounter [facility] 09-26-2024 Telephone encounter Note The patient is calling to discuss some rectal bleeding and the passing some blood clots on Thursday. He also wants to discuss having his imaging done locally. [phone] [facility] 09-22-2024 Telephone encounter Note Suspect chloride level of 4 on BMP is an error. Will redraw. [facility] 09-22-2024 Miscellaneous Notes Suspect chloride level of 4 on BMP is an error. Will redraw. Therapeutic at 2.7. Need to make sure he gets another INR drawn on 09/27. Received INR results for patient on 09-20-24. KM reviewed will have MA's enter into chart. Spoke to patient, he has had INR's done at [facility] outpatient lab. Sent request to obtain those weekly results from 09-05-24 on going. Fax request sent [phone] Patient requesting labs be sent to [facility] outpatient lab. I faxed those over [phone] Left patient VM, to inquire INR results. LVM for patient requesting update on INR status See message below from me. Do we have weekly INR's on him? Where is he getting them drawn? Procedure: PVI/ [place] Case: [id number] Date: 10-04-24 Time: 8:30a Follow up: one month with KM 11-04-24 Auth: approved Labs sent to PCP. No auth needed for PVI (AF) Ablation CPT 31412/02779 per Traditional Medicare and [employer] Medicare Supplement Guidelines Can I have an auth for PVI 10-04-24? Case request placed. Prep for proc complete. Educated Patient about PVI on 10/04/[address] Henry. Arrive at [facility] at [address] [place] [address], and then take the East Elevators to the 1st floor [facility] where you will check in. The hospital will call you the day prior to procedure to give you your arrival time. If you do not receive a call by 5:30 pm the day prior, call Assistant Front Office Manager at [phone]. Netting Inspector parking is available for free day of procedure, please plan accordingly. Nothing to eat or drink after midnight the night before procedure Hold all morning medications on the day of procedure. Someone must drive patient to and from procedure Please get lab work done 2 weeks prior to procedure Any questions please call Lisa at [phone] documented in this encounter [facility] 09-21-2024 Telephone encounter Note Therapeutic at 2.7. Need to make sure he gets another INR drawn on 09/27. [facility] 09-21-2024 Miscellaneous Notes Therapeutic at 2.7. Need to make sure he gets another INR drawn on 09/27. Received INR results for patient on 09-20-24. KM reviewed will have MA's enter into chart. Spoke to patient, he has had INR's done at [facility] outpatient lab. Sent request to obtain those weekly results from 09-05-24 on going. Fax request sent [phone] Patient requesting labs be sent to [facility] outpatient lab. I faxed those over [phone] Left patient VM, to inquire INR results. LVM for patient requesting update on INR status See message below from me. Do we have weekly INR's on him? Where is he getting them drawn? Procedure: PVI/ [place] Case: [id number] Date: 10-04-24 Time: 8:30a Follow up: one month with SHALOM 11-04-24 Auth: approved Labs sent to PCP. No auth needed for PVI (AF) Ablation CPT 51667/30053 per Traditional Medicare and [employer] Medicare Supplement Guidelines Can I have an auth for PVI 10-04-24? Case request placed. Prep for proc complete. Educated Patient about PVI on 10/04/[address] Henry. Arrive at [facility] at [address] [place] [address] Street, and then take the East Elevators to the 1st floor [facility] where you will check in. The hospital will call you the day prior to procedure to give you your arrival time. If you do not receive a call by 5:30 pm the day prior, call Assistant Front Office Manager at [phone]. Netting Inspector parking is available for free day of procedure, please plan accordingly. Nothing to eat or drink after midnight the night before procedure Hold all morning medications on the day of procedure. Someone must drive patient to and from procedure Please get lab work done 2 weeks prior to procedure Any questions please call Lisa at [phone] documented in this encounter [facility] 09-21-2024 Telephone encounter Note Received INR results for patient on 09-20-24. KM reviewed will have MA's enter into chart. [facility] 09-20-2024 Telephone encounter Note Spoke to patient, he has had INR's done at [facility] outpatient lab. Sent request to obtain those weekly results from 09-05-24 on going. Fax request sent [phone] [facility] 09-20-2024 Miscellaneous Notes Spoke to patient, he has had INR's done at [facility] outpatient lab. Sent request to obtain those weekly results from 09-05-24 on going. Fax request sent [phone] Patient requesting labs be sent to [facility] outpatient lab. I faxed those over [phone] Left patient VM, to inquire INR results. LVM for patient requesting update on INR status See message below from me. Do we have weekly INR's on him? Where is he getting them drawn? Procedure: PVI/ [place] Case: [id number] Date: 10-04-24 Time: 8:30a Follow up: one month with KM 11-04-24 Auth: approved Labs sent to PCP. No auth needed for PVI (AF) Ablation CPT 88052/05015 per Traditional Medicare and [employer] Medicare Supplement Guidelines Can I have an auth for PVI 10-04-24? Case request placed. Prep for proc complete. Educated Patient about PVI on 10/04/[address] Henry. Arrive at [facility] Main Entrance at [address], and then take the East Elevators to the 1st floor [facility] where you will check in. The hospital will call you the day prior to procedure to give you your arrival time. If you do not receive a call by 5:30 pm the day prior, call Assistant Front Office Manager at [phone]. Netting Inspector parking is available for free day of procedure, please plan accordingly. Nothing to eat or drink after midnight the night before procedure Hold all morning medications on the day of procedure. Someone must drive patient to and from procedure Please get lab work done 2 weeks prior to procedure Any questions please call Lisa at [phone] documented in this encounter [employer] 09-20-2024 Telephone encounter Note Patient requesting labs be sent to [facility] outpatient lab. I faxed those over [phone] Left patient VM, to inquire INR results. [employer] [facility] 09-19-2024 Telephone encounter Note LVM for patient requesting update on INR status [employer] 09-19-2024 Miscellaneous Notes LVM for patient requesting update on INR status See message below from me. Do we have weekly INR's on him? Where is he getting them drawn? Procedure: PVI/ [place] Case: [id number] Date: 10-04-24 Time: 8:30a Follow up: one month with KM 11-04-24 Auth: approved Labs sent to PCP. No auth needed for PVI (AF) Ablation CPT 61795/25851 per Traditional Medicare and [employer] Medicare Supplement Guidelines Can I have an auth for PVI 10-04-24? Case request placed. Prep for proc complete. Educated Patient about PVI on 10/04/[address] Henry. Arrive at [facility] Entr[facility] at [address] [place] [address] Street, and then take the East Elevators to the 1st floor [facility] where you will check in. The hospital will call you the day prior to procedure to give you your arrival time. If you do not receive a call by 5:30 pm the day prior, call Assistant Front Office Manager at [phone]. Netting Inspector parking is available for free day of procedure, please plan accordingly. Nothing to eat or drink after midnight the night before procedure Hold all morning medications on the day of procedure. Someone must drive patient to and from procedure Please get lab work done 2 weeks prior to procedure Any questions please call Lisa at [phone] documented in this encounter [facility] 09-19-2024 Telephone encounter Note See message below from me. Do we have weekly INR's on him? Where is he getting them drawn? [facility] 09-13-2024 History of Present illness Narrative COLORECTAL SURGERY Follow-up September 08, 2024 Chief complaint: rectaql cancer HPI: Migue Gunter is a 64-year-old year old male with a history of [...] to undergo watch and wait protocol. He had MRI and CT scans in April 2024 - all stable, no evidence of metastatic disease or recurrence. Flex sig in April as well was WNL. He is here today for surveillance scope, imaging due in Oct 2024. Colonoscopy due in Oct 2024 . 05.20.2024 MDT Discussion: recent MRI shows complete MRI response with no sign for a cancerous mass. Clinical Trial Candidate: No 9. flex sig Findings: The perianal and digital rectal examinations were normal aside from hemorrhoids The entire examined colon appeared normal. No evidence of recurrence Impression: - The entire examined colon is normal. - No specimens collected. 04/21/2024 MRI rectum Addendum to update the impression of the [...] nodes: No. 07/09/23 CEA 1.8 Physical Exam: Sensitive Exam: yes, The sensitive examination was discussed with the Patient or Patient's Authorized Paste Worker. As applicable, any other physician, advance practice provider, medical student, or other health professional student that will be observing or involved in the sensitive examination for educational or training purposes was discussed with the Patient or Authorized Paste Worker. The Patient or Authorized Paste Worker has agreed to proceed with the sensitive examination. (Sensitive examination includes inspection and/or palpation of the breasts, pelvis, prostate and anorectal regions) There were no vitals taken for this visit. General - awake, alert, no acute distress Abdominal - WNL Anorectal: Perianal skin is intact. No erythema, induration or excoriation. No fissure, fistula or external hemorrhoids. Digital Rectal Exam: Anus: open Resting tone: NORMAL Squeeze tone: NORMAL Hospital Account Manager present: Yes, Maryann Maier Flexible sigmoidoscopy: Procedure: The patient was placed in left lateral position. After digital exam with a lubricated finger, the scope was easily inserted to 30 cm. Findings: See attached provation report Assessment Medical Decision Making: Assessment & Diagnosis: Migue Gunter is a 64 year old male with history of rectal cancer s/p CORKY now on watch and wait protocol Data Reviewed: Tests & Documents Reviewed/ordered: Review of prior notes from previous OV Review of Imaging: CT Abdomen, CT Pelvis, MRI Pelvis, CT Chest Review of Procedures / Tests: Colonoscopy, Flexible Sigmoidoscopy Assessment by: Care Center Team I have independently interpreted: CT Abdomen, CT Pelvis, MRI Pelvis, CT Chest I have discussed Migue Gunter's treatment plan and/or results with himself. Treatment plan: Scope today without concerns of recurrence Imaging due in Oct 2024 Full colonoscopy was done in April 2024 at OSH, notes scanned into chart Consult to weight management for obesity/weight loss planning RTC for scope in 3 months, sooner if any concerns Risk of morbidity, mortality and/or complications of treatment plan: low documented in this encounter [facility] 09-13-2024 Note HNO ID: [id number] Author: ERNESTO AGUIAR MD Service: ? Author Type: Physician Type: Progress Notes Filed: 09/13/2024 08:42 Note Text: COLORECTAL SURGERY Follow-up September 08, 2024 Chief complaint: rectaql cancer HPI: Migue Gunter is a 64-year-old year old male with a history of [...] to undergo watch and wait protocol. He had MRI and CT scans in April 2024 - all stable, no evidence of metastatic disease or recurrence. Flex sig in April as well was WNL. He is here today for surveillance scope, imaging due in Oct 2024. Colonoscopy due in Oct 2024 . 05.20.2024 MDT Discussion: recent MRI shows complete MRI response with no sign for a cancerous mass. Clinical Trial Candidate: No 9. flex sig Findings: The perianal and digital rectal examinations were normal aside from hemorrhoids The entire examined colon appeared normal. No evidence of recurrence Impression: - The entire examined colon is normal. - No specimens collected. 04/21/2024 MRI rectum Addendum to update the impression of the [...] AND DECREASED SIZE OF MESORECTAL FAT TUMOR DEP (more content not included)... [facility] 09-06-2024 Note Procedure: PVI/ [place] Case: [id number] Date: 10-04-24 Time: 8:30a Follow up: one month with 11-04-24 Auth: approved Labs sent to PCP. [facility] 09-06-2024 Telephone encounter Note Procedure: PVI/ [place] Case: [id number] Date: 10-04-24 Time: 8:30a Follow up: one month with 11-04-24 Auth: approved Labs sent to PCP. [facility] 09-06-2024 Telephone encounter Note No auth needed for PVI (AF) Ablation CPT 58666/48864 per Traditional Medicare and [employer] Medicare Supplement Guidelines [facility] 09-06-2024 Telephone encounter Note Can I have an auth for PVI 10-04-24? [facility] 09-05-2024 Telephone encounter Note Case request placed. Prep for proc complete. [facility] 09-05-2024 Miscellaneous Notes Addended by: CHETNA SOLOMON on: 09/22/2024 08:36 AM Modules accepted: Orders documented in this encounter [facility] 09-05-2024 Note Addended by: CHETNA JACINTO on: 09/22/2024 08:36 AM Modules accepted: Orders [facility] 09-05-2024 Note [facility] Note Chief Complaint: Chief Complaint Patient presents with New Patient History of Present Illness: Migue Gunter is a 64 y.o. male presents for evaluation of atrial fibrillation. Is very pleasant gentleman with 6 years of atrial fibrillation initially the paroxysms were much less bothersome and much less frequent. He is in sinus rhythm today, he reports that on recent pulmonary visit he was in atrial fibrillation, and he has symptoms of intermittent palpitation without chest pain or significant shortness of breath. No lightheadedness presyncope or syncope. He has CPAP for sleep apnea. No obvious triggers as the events appear to be quite random. He has never had a cardioversion. His rate control and anticoagulation strategy includes diltiazem and warfarin. He has not been on antiarrhythmic drug. Records are reviewed. Ejection fraction from summer 2022 was normal with normal left atrial size. BMI is 34. Past Medical History: Medical History Past Medical History: Diagnosis Date Atrial flutter (HCC) DVT (deep venous thrombosis) (HCC) 2018 HTN (hypertension) Hyperlipemia Obese CORRINA on CPAP PAF (paroxysmal atrial fibrillation) (HCC) Pulmonary emboli (HCC) Past Surgical History Surgical History Past Surgical History: Procedure Laterality Date APPENDECTOMY MAINFRAME PROGRAMMER REPORT (HISTORICAL) 2019 HERNIA REPAIR Left HIP ARTHROPLASTY Family History Family History No family history on file. Social History Social History Allergies: Allergies No Known Allergies Medications: Current Medications Current Outpatient Medications: Aspirin Low Dose 81 MG EC tablet, Take 81 mg by mouth daily., Disp: , Rfl: benazepril (Lotensin) 20 MG tablet, Take 20 mg by mouth daily., Disp: , Rfl: cholecalciferol (Vitamin D-3) 50 MCG (1999) tablet, Take 2,000 Units by mouth in the morning., Disp: , Rfl: dilTIAZem CD (Cardizem CD) 300 MG 24 hr capsule, Take 300 mg by mouth daily., Disp: , Rfl: furosemide (Lasix) 40 MG tablet, Take 40 mg by mouth daily., Disp: , Rfl: omeprazole OTC (PriLOSEC OTC) 20 MG EC tablet, Take 20 mg by mouth every morning (before breakfast). Do not crush, chew, or split., Disp: , Rfl: oxyCODONE (Roxicodone) 5 MG immediate release tablet, Take 5 mg by mouth every 4 hours as needed for severe pain (7-10)., Disp: , Rfl: sertraline (Zoloft) 50 MG tablet, Take by mouth daily., Disp: , Rfl: warfarin (Coumadin) 3 MG tablet, Take by mouth. Take as directed per After Visit Summary. (Patient taking differently: Take 8 mg by mouth. Take as directed per After Visit Summary.), Disp: , Rfl: metoprolol tartrate (Lopressor) 25 MG tablet, Take by mouth 2 times daily. (Patient not taking: Reported on 09/05/2024), Disp: , Rfl: Review of Systems: Review of Systems Constitutional: Negative. HENT: Negative. Eyes: Negative. Respiratory: Positive for apnea. Cardiovascular: Positive for palpitations. Gastrointestinal: Negative. Endocrine: Negative. Genitourinary: Negative. Musculoskeletal: Negative. Skin: Negative. Allergic/Immunologic: Negative. Neurological: Negative. Hematological: Negative. Psychiatric/Behavioral: Negative. Physical Examination: Vitals: Vitals Vitals: 09/05/24 0956 BP: 120/80 BP Location: Right arm Patient Position: Sitting BP Cuff Size: Large adult Pulse: 72 SpO2: 95% Weight: 244 lb (111 kg) Height: 5' 11 (1.803 m) Body mass index is 34.03 kg/m?. Physical Exam Vitals reviewed. Constitutional: Appearance: Normal appearance. HENT: Head: Normocephalic. Right Ear: External ear normal. Left Ear: External ear normal. Nose: Nose normal. Mouth/Throat: Mouth: Mucous membranes are moist. Eyes: Pupils: Pupils are equal, round, and reactive to light. Cardiovascular: Rate and Rhythm: Normal rate and regular rhythm. Heart sounds: No murmur heard. Pulmonary: Effort: No respiratory distress. Musculoskeletal: General: Normal range of motion. Right lower leg: No edema. Left lower leg: No edema. Skin: General: Skin is warm and dry. Coloration: Skin is not jaundiced. Neurological: General: No focal deficit present. Mental Status: He is alert. Cranial Nerves: No cranial nerve deficit. Motor: No weakness. Psychiatric: Mood and Affect: Mood normal. Behavior: Behavior normal. Thought Content: Thought content normal. Judgment: Judgment normal. Laboratory Tests: No results found for: WBC, HGB, HCT, MCV, PLT No results found for: GLUCOSE, CALCIUM, NA, K, CO2, CL, BUN, CREATININE @LASTCMP@ No results found for: CHLPL, CHOL No results found for: TRIG No results found for: HDL No results found for: LDLCALC Assessment and Plan: Atrial fibrillation: Paroxysmal occurring in the setting of a structurally normal heart and at least as of last summer, normal left atrial size. He has increased risk of (more content not included)... [facility] 09-05-2024 Note [facility] Note Chief Complaint: Chief Complaint Patient presents with New Patient History of Present Illness: Migue Gunter is a 64 y.o. male presents for evaluation of atrial fibrillation. Is very pleasant gentleman with 6 years of atrial fibrillation initially the paroxysms were much less bothersome and much less frequent. He is in sinus rhythm today, he reports that on recent pulmonary visit he was in atrial fibrillation, and he has symptoms of intermittent palpitation without chest pain or significant shortness of breath. No lightheadedness presyncope or syncope. He has CPAP for sleep apnea. No obvious triggers as the events appear to be quite random. He has never had a cardioversion. His rate control and anticoagulation strategy includes diltiazem and warfarin. He has not been on antiarrhythmic drug. Records are reviewed. Ejection fraction from summer 2022 was normal with normal left atrial size. BMI is 34. Past Medical History: Medical History Past Medical History: Diagnosis Date Atrial flutter (HCC) DVT (deep venous thrombosis) (HCC) 2018 HTN (hypertension) Hyperlipemia Obese CORRINA on CPAP PAF (paroxysmal atrial fibrillation) (HCC) Pulmonary emboli (HCC) Past Surgical History Surgical History Past Surgical History: Procedure Laterality Date APPENDECTOMY MAINFRAME PROGRAMMER REPORT (HISTORICAL) 2019 HERNIA REPAIR Left HIP ARTHROPLASTY Family History Family History No family history on file. Social History Social History Allergies: Allergies No Known Allergies Medications: Current Medications Current Outpatient Medications: Aspirin Low Dose 81 MG EC tablet, Take 81 mg by mouth daily., Disp: , Rfl: benazepril (Lotensin) 20 MG tablet, Take 20 mg by mouth daily., Disp: , Rfl: cholecalciferol (Vitamin D-3) 50 MCG (2000 UT) tablet, Take 2,000 Units by mouth in the morning., Disp: , Rfl: dilTIAZem CD (Cardizem CD) 300 MG 24 hr capsule, Take 300 mg by mouth daily., Disp: , Rfl: furosemide (Lasix) 40 MG tablet, Take 40 mg by mouth daily., Disp: , Rfl: omeprazole OTC (PriLOSEC OTC) 20 MG EC tablet, Take 20 mg by mouth every morning (before breakfast). Do not crush, chew, or split., Disp: , Rfl: oxyCODONE (Roxicodone) 5 MG immediate release tablet, Take 5 mg by mouth every 4 hours as needed for severe pain (7-10)., Disp: , Rfl: sertraline (Zoloft) 50 MG tablet, Take by mouth daily., Disp: , Rfl: warfarin (Coumadin) 3 MG tablet, Take by mouth. Take as directed per After Visit Summary. (Patient taking differently: Take 8 mg by mouth. Take as directed per After Visit Summary.), Disp: , Rfl: metoprolol tartrate (Lopressor) 25 MG tablet, Take by mouth 2 times daily. (Patient not taking: Reported on 09/05/2024), Disp: , Rfl: Review of Systems: Review of Systems Constitutional: Negative. HENT: Negative. Eyes: Negative. Respiratory: Positive for apnea. Cardiovascular: Positive for palpitations. Gastrointestinal: Negative. Endocrine: Negative. Genitourinary: Negative. Musculoskeletal: Negative. Skin: Negative. Allergic/Immunologic: Negative. Neurological: Negative. Hematological: Negative. Psychiatric/Behavioral: Negative. Physical Examination: Vitals: Vitals Vitals: 09/05/24 0956 BP: 120/80 BP Location: Right arm Patient Position: Sitting BP Cuff Size: Large adult Pulse: 72 SpO2: 95% Weight: 244 lb (111 kg) Height: 5' 11 (1.803 m) Body mass index is 34.03 kg/m?. Physical Exam Vitals reviewed. Constitutional: Appearance: Normal appearance. HENT: Head: Normocephalic. Right Ear: External ear normal. Left Ear: External ear normal. Nose: Nose normal. Mouth/Throat: Mouth: Mucous membranes are moist. Eyes: Pupils: Pupils are equal, round, and reactive to light. Cardiovascular: Rate and Rhythm: Normal rate and regular rhythm. Heart sounds: No murmur heard. Pulmonary: Effort: No respiratory distress. Musculoskeletal: General: Normal range of motion. Right lower leg: No edema. Left lower leg: No edema. Skin: General: Skin is warm and dry. Coloration: Skin is not jaundiced. Neurological: General: No focal deficit present. Mental Status: He is alert. Cranial Nerves: No cranial nerve deficit. Motor: No weakness. Psychiatric: Mood and Affect: Mood normal. Behavior: Behavior normal. Thought Content: Thought content normal. Judgment: Judgment normal. Laboratory Tests: No results found for: WBC, HGB, HCT, MCV, PLT No results found for: GLUCOSE, CALCIUM, NA, K, CO2, CL, BUN, CREATININE @LASTCMP@ No results found for: CHLPL, CHOL No results found for: TRIG No results found for: HDL No results found for: LDLCALC Assessment and Plan: Atrial fibrillation: Paroxysmal occurring in the setting of a structurally normal heart and at least as of last summer, normal left atrial size. He has increased risk of (more content not included)... [employer] [facility] 09-05-2024 Telephone encounter Note Educated Patient about PVI on 10/04/[address] Henry. Arrive at [facility] Main Entr[facility] at [address] [place] [address], and then take the East Elevators to the 1st floor [facility] where you will check in. The hospital will call you the day prior to procedure to give you your arrival time. If you do not receive a call by 5:30 pm the day prior, call Assistant Front Office Manager at [phone]. Netting Inspector parking is available for free day of procedure, please plan accordingly. Nothing to eat or drink after midnight the night before procedure Hold all morning medications on the day of procedure. Someone must drive patient to and from procedure Please get lab work done 2 weeks prior to procedure Any questions please call Lisa at [phone] [facility] 09-[facility] History of Present illness Narrative [facility] Note Chief Complaint: Chief Complaint Patient presents with New Patient History of Present Illness: Migue Gunter is a 64 y.o. male presents for evaluation of atrial fibrillation. Is very pleasant gentleman with 6 years of atrial fibrillation initially the paroxysms were much less bothersome and much less frequent. He is in sinus rhythm today, he reports that on recent pulmonary visit he was in atrial fibrillation, and he has symptoms of intermittent palpitation without chest pain or significant shortness of breath. No lightheadedness presyncope or syncope. He has CPAP for sleep apnea. No obvious triggers as the events appear to be quite random. He has never had a cardioversion. His rate control and anticoagulation strategy includes diltiazem and warfarin. He has not been on antiarrhythmic drug. Records are reviewed. Ejection fraction from summer 2022 was normal with normal left atrial size. BMI is 34. Past Medical History: Past Medical History: Diagnosis Date Atrial flutter (HCC) DVT (deep venous thrombosis) ([facility]) 2018 HTN (hypertension) Hyperlipemia Obese CORRINA on CPAP PAF (paroxysmal atrial fibrillation) (HCC) Pulmonary emboli (HCC) Past Surgical History Past Surgical History: Procedure Laterality Date APPENDECTOMY MAINFRAME PROGRAMMER REPORT (HISTORICAL) 2018 HERNIA REPAIR Left HIP ARTHROPLASTY Family History No family history on file. Social History Allergies: No Known Allergies Medications: Current Outpatient Medications: Aspirin Low Dose 81 MG EC tablet, Take 81 mg by mouth daily., Disp: , Rfl: benazepril (Lotensin) 20 MG tablet, Take 20 mg by mouth daily., Disp: , Rfl: cholecalciferol (Vitamin D-3) 50 MCG (1999 UT) tablet, Take 2,000 Units by mouth in the morning., Disp: , Rfl: dilTIAZem CD (Cardizem CD) 300 MG 24 hr capsule, Take 300 mg by mouth daily., Disp: , Rfl: furosemide (Lasix) 40 MG tablet, Take 40 mg by mouth daily., Disp: , Rfl: omeprazole OTC (PriLOSEC OTC) 20 MG EC tablet, Take 20 mg by mouth every morning (before breakfast). Do not crush, chew, or split., Disp: , Rfl: oxyCODONE (Roxicodone) 5 MG immediate release tablet, Take 5 mg by mouth every 4 hours as needed for severe pain (7-10)., Disp: , Rfl: sertraline (Zoloft) 50 MG tablet, Take by mouth daily., Disp: , Rfl: warfarin (Coumadin) 3 MG tablet, Take by mouth. Take as directed per After Visit Summary. (Patient taking differently: Take 8 mg by mouth. Take as directed per After Visit Summary.), Disp: , Rfl: metoprolol tartrate (Lopressor) 25 MG tablet, Take by mouth 2 times daily. (Patient not taking: Reported on 09/05/2024), Disp: , Rfl: Review of Systems: Review of Systems Constitutional: Negative. HENT: Negative. Eyes: Negative. Respiratory: Positive for apnea. Cardiovascular: Positive for palpitations. Gastrointestinal: Negative. Endocrine: Negative. Genitourinary: Negative. Musculoskeletal: Negative. Skin: Negative. Allergic/Immunologic: Negative. Neurological: Negative. Hematological: Negative. Psychiatric/Behavioral: Negative. Physical Examination: Vitals: Vitals: 09/05/24 0956 BP: 120/80 BP Location: Right arm Patient Position: Sitting BP Cuff Size: Large adult Pulse: 72 SpO2: 95% Weight: 244 lb (111 kg) Height: 5' 11 (1.803 m) Body mass index is 34.03 kg/m . Physical Exam Vitals reviewed. Constitutional: Appearance: Normal appearance. HENT: Head: Normocephalic. Right Ear: External ear normal. Left Ear: External ear normal. Nose: Nose normal. Mouth/Throat: Mouth: Mucous membranes are moist. Eyes: Pupils: Pupils are equal, round, and reactive to light. Cardiovascular: Rate and Rhythm: Normal rate and regular rhythm. Heart sounds: No murmur heard. Pulmonary: Effort: No respiratory distress. Musculoskeletal: General: Normal range of motion. Right lower leg: No edema. Left lower leg: No edema. Skin: General: Skin is warm and dry. Coloration: Skin is not jaundiced. Neurological: General: No focal deficit present. Mental Status: He is alert. Cranial Nerves: No cranial nerve deficit. Motor: No weakness. Psychiatric: Mood and Affect: Mood normal. Behavior: Behavior normal. Thought Content: Thought content normal. Judgment: Judgment normal. Laboratory Tests: No results found for: WBC, HGB, HCT, MCV, PLT No results found for: GLUCOSE, CALCIUM, NA, K, CO2, CL, BUN, CREATININE @LASTCMP@ No results found for: CHLPL, CHOL No results found for: TRIG No results found for: HDL No results found for: LDLCALC Assessment and Plan: Atrial fibrillation: Paroxysmal occurring in the setting of a structurally normal heart and at least as of last summer, normal left atrial size. He has increased risk of stroke he is anticoagulated with warfarin without bleeding issues. At this point his paroxysms are worsening in frequency and duration I recommended suppressive therapy. We discussed antiarrhythmic drug versus ablation. I recommended a pulmonary vein isolation with PFA. The procedure itself was discussed in detail and the risks including but not limited to stroke, cardiac perforation, vascular damage, and . We discussed the differences between this procedure and a cardiac catheterization which he has undergone. He wishes to proceed. The moment he will continue his diltiazem and warfarin unchanged. Hypertension: Blood pressures under good control on the above regimen plus benazepril 20 documented in this encounter [facility] 08-24-2024 Evaluation note Diagnosis Onset Date Resolution Asthma chronic August 24, 2024 2:11pm History of atrial fibrillation chronic August 24, 2024 2:11pm Obesity chronic August 24, 2024 2:11pm CORRINA (obstructive sleep apnea) chronic August 24, 2024 2:11pm Pulmonary embolism June 10, 2018 chronic August 24, 2024 2:11pm [facility] Work Phone: 1(293) 281-613212-11-2024 Evaluation note* Diagnosis Onset Date Resolution Status Admit Date Asthma chronic August 24, 2024 2:11pm History of atrial fibrillation chronic August 24, 2 024 2:11pm Obesity chronic August 24, 2024 2:11pm CORRINA (obstructive sleep apnea) chronic August 24 2 024 2:11pm Pulmonary embolism June 10, 2018 chronic August 24, 2024 2:11pm Rectal cancer chronic December 08, 2024 3:19pm [facility] Work Phone: [phone]) 230-209712-11-2024 Evaluation note* Diagnosis Onset Date Resolution Status Admit Date Asthma chronic August 24, 2024 2:11pm History of atrial fibrillation chronic August 24, 2 024 2:11pm Obesity chronic August 24, 2024 2:11pm CORRINA (obstructive sleep apnea) chronic August 24, 2 024 2:11pm Pulmonary embolism June 10, 2018 chronic August 24, 2024 2:11pm Rectal cancer chronic December 08, 2024 3:19pm Iron deficiency chronic December 10:53am Rectal cancer chronic December 19, 2024 10:53am [facility] Work Phone: 1(134) 873-294409-06-2024 Telephone encounter Note* Telephone Encounter - Maryann Maier RN - 05/20/2024 1:26 PM EDT Called and spoke with patient Advised MRI [...] Patient verbalized understanding and appreciative of call [facility]09-06-2024 Miscellaneous Notes* Telephone Encounter - Maryann Maier RN - 05/20/2024 1:26 PM EDT Called and spoke with patient Advised MRI [...] and appreciative of call documented in this encounterPrem[facility]24 NoteHNO ID: [id number] Author: OPHELIA CHAPMAN MD Service: ? Author Type: Physician Type: Progress Notes Filed: 05/20/2024 12:59 Note Text: Rectal Cancer Tumor Board Non-Operative / Active Surveillance Discussion Note Date of conference: 05/20/2024 Date of diagnosis: 05/05/2023 Pre-treatment clinical stage: [id number]. Type of neoadjuvant therapy completed: Long course chemoradiotherapy followed by consolidation chemotherapy (CORKY) Neoadjuvant therapy date of completion: 11/04/2023 Pre-treatment CEA level: 1.8 Current CEA level: CEA (ng/mL) Date Value 11/04/2023 2.8 Findings on most recent digital rectal examination and flexible sigmoidoscopy: Date: 05/17/2024 No evidence of recurrence Biopsy: No Most recent MRI: Date: 04/21/2024 MRI performed at: [facility]. mrTR Suspicious for tumor regrowth: [...] risks and alternatives to the various treatment options.[facility]09-03-2024 History of Present illness Narrative* Willie Chamorro MD - 05/17/2024 11:00 AM EDT COLORECTAL SURGERY Follow-up May 12, 2024 Chief [...] closed Resting tone: NORMAL Squeeze tone: NORMAL Hospital Account Manager present: Yes Assessment Medical Decision Making: Assessment [...] treatment plan: low Associated attestation - Ernesto Aguiar MD - 05/17/2024 11:51 AM EDT [facility] STAFF PHYSICIAN NOTE [...] but I cannot see a lesion. Will addback on to MDT to review. If continue [...] of SERVICE: 11:50 AM documented in this encounterPrem[facility]24 NoteHNO ID: [id number] Author: ERNESTO AGUIAR MD Service: ? Author Type: Fellow Type: Progress Notes Filed: 05/17/2024 11:51 Note Text: Attestation signed by Ernesto Aguiar MD at 05/17/2024 11:51 AM [facility] STAFF PHYSICIAN NOTE [...] endoscopic response. His case was presented to [facility] and recommended to undergo watch and [...] treatment primary tumor (more content not included)... [facility]08-30-2024 Telephone encounter Note* Telephone Encounter - June Veras - 05/13/2024 8:18 AM EDT [phone] Migue called and wanted to confirm if they still needed to come to the appointment on Thursday or not. Colonoscopy report was faxed over and scanned into the chart. [facility]08-30-2024 Miscellaneous Notes* Telephone Encounter - June Veras - 05/13/2024 8:18 AM EDT [phone] Migue Christine called and wanted to confirm if they still needed to come to the appointment on Thursday or not. Colonoscopy report was faxed over and scanned into the chart. documented in this encounterPrem[facility]08[facility]2024 [facility]08-08-2024 History of Present illness Narrative* Darya Dean RN - 04/21/2024 11:10 AM EDT Radiology Service Progress Note DATE OF SERVICE: [...] IV SITE APPEARANCE: Clean,Dry and Intact SIGNATURE: Darya Dean RN PATIENT NAME: Migue Gunter DATE: April 21, 2024 TIME: 11:25 AM documented in this encounterPrem[facility]-2024 NoteHNO ID: [id number] Author: DARYA DEAN RN Service: Nursing Author Type: Registered [...] IV SITE APPEARANCE: Clean,Dry and Intact SIGNATURE: Darya Dean RN PATIENT NAME: Migue Gunter DATE: April 21, 2024 TIME: 11:25 [facility]08-06-2024 Telephone encounter Note* Telephone Encounter - Maryann Maier RN - 04/19/2024 1:30 PM EDT Called and spoke with patient Canceled ortho surgery for now and will reschedule in May Discussed CT scan results, MRI scheduled 04/21 Colonoscopy 05/03 and results will review with DR Aguiar Follow up with Marta scheduled in May Patient appreciative of call [facility]08-06-2024 Miscellaneous Notes* Telephone Encounter - Maryann Maier RN - 04/19/2024 1:30 PM EDT Called and spoke with patient Canceled ortho surgery for now and will reschedule in May Discussed CT scan results, MRI scheduled 04/21 Colonoscopy 05/03 and results will review with DR Aguiar Follow up with Marta scheduled in May Patient appreciative of call * Telephone Encounter - Mary Kay Mitchell - 04/19/2024 11:46 AM EDT The patient calling to discuss the timeframe for rescheduling his ortho shoulder surgery. He reports he cancelled his 04/25 surgery to proceed with the 04/21 MRI and 05/03 scope locally. [phone] documented in this encounterPrem[facility] Telephone encounter Note * Telephone Encounter - Mary Kay Mitchell - 04/19/2024 11:46 AM EDT The patient calling to discuss the timeframe for rescheduling his ortho shoulder surgery. He reports he cancelled his 04/25 surgery to proceed with the 04/21 MRI and 05/03 scope locally. [phone] [facility]08-02-2024 Telephone encounter Note* Telephone Encounter - June Veras - 04/15/2024 3:08 PM EDT [phone] Myriam called back and states they are ok with getting MRI rectum done at [facility]. Would like the order placed for scheduling. [facility]08-02-2024 Miscellaneous Notes* Telephone Encounter - June Veras - 04/15/2024 3:08 PM EDT [phone] Myiram called back and states they are ok with getting MRI rectum done at [facility]. Would like the order placed for scheduling. documented in this encounterPrem[facility]-20[facility] History of Present illness Narrative* Zenaida Conte RT(R) - 04/14/2024 3:20 PM EDT Radiology Service Progress Note PATIENT NAME: Migue Gunter DATE OF SERVICE: April 14, 2024 TIME: 3:48 PM PATIENT IDENTITY VERIFICATION COMPLETED USING TWO (2) IDENTIFIERS: Name and Date of confirmedby patient verbally. FALL SCREENING: Has the patient had 2 falls in the last year or 1 fall with injury or currently using an Ambulatory Assistive Device (Walker, Cane, Wheelchair, Crutches, etc.)? No PATIENT GENDER DATA: Male PATIENT RELEVANT IMPLANT DATA REVIEWED: Yes PATIENT PRESENTS WITH AN IMPLANTABLE OR ATTACHED DIRECTOR OF ENROLLMENT: No RADIOLOGY DEPARTMENT: CT; Exam(s) Completed: Chest Abdomen Pelvis PERIPHERAL IV DATA: power port accessed by hemoc SIGNED BY: SONIA Madden) April 14, 2024 3:48 PM documented in this encounterPrem[facility]08-[facility]-2024 NoteHNO ID: [id number] Author: ZENAIDA CONTE RT (R) Service: ? Author Type: Solar Development Engineer Type: Progress Notes Filed: 04/14/2024 15:48 Note [...] PATIENT PRESENTS WITH AN IMPLANTABLE OR ATTACHED DIRECTOR OF ENROLLMENT: No RADIOLOGY DEPARTMENT: CT; Exam(s) Completed: Chest Abdomen Pelvis PERIPHERAL IV DATA: power port accessed by hemoc SIGNED BY: RT Maryanne(Cassius) April 14, 2024 3:48 [facility]06-18-2024 History of Present illness Narrative* Ernesto Aguiar MD - 03/01/2024 8:30 AM EDT COLORECTAL SURGERY Follow-up March 01, 2024 Chief [...] closed Resting tone: NORMAL Squeeze tone: NORMAL Hospital Account Manager present: Yes, Miranda Gutierrez Flexible sigmoidoscopy: Procedure: [...] after imaging is complete in April, Maryann Maier RN aware SIGNATURE: Ernesto Aguiar MD DATE of SERVICE: March 01, 2024 TIME of SERVICE: 9:04 AM documented in this encounterPrem[facility]06-18-2024 NoteHNO ID: [id number] Author: ERNESTO AGUIAR MD Service: ? Author [...] closed Resting tone: NORMAL Squeeze tone: NORMAL Hospital Account Manager present: Yes, Miranda Gutierrez Flexible sigmoidoscopy: Procedure: [...] so recommended to pr (more content not included)...[facility]03-21-2024 Hospital Discharge instructions Additional Instructions Ultrasound of your right leg negative for DVT this evening. Your INR subtherapeutic at 1.2. You were started on Lovenox bridge therapy to take twice a day. You are given 15-day supply. Pharmacy able to supply a 5-day supply currently, return in the next couple days to brick picker additional supply. Call cardiology office tomorrow for adjustments of your warfarin and to continue the bridging until you are therapeutic with your DVT and PE history.[facility] Work Phone: 1(796) 945-863503-06-2024 Miscellaneous Notes* Telephone Encounter - Maryann Maier RN - 11/18/2023 8:13 AM EST Called and spoke with patient Advised of watch and wait recommendations from TB Scheduled three month follow up with marta in February documented in this encounterPrem[facility] History of Present illness Narrative* Jon Fraser MD - 11/17/2023 8:15 AM EST COLORECTAL SURGERY Follow-up November 08, 2023 Chief complaint: rectal cancer HPI: Rectal Cancer Oncologist: Dr. Queasda ([place]) Migue Gunter is a 63-year-old year old [...] over last few months. No blood in bowelmovements. Sometimes stinging pain on bowel movement. No [...] TUMOR THICKNESS AND DECREASED IZE OF MESORECTAL FATTUMOR DEPOSIT. TWO SUSPICIOUS LYMPH NODES ARE AGAIN NOTED. 0.7 CM ENHANCING FOCUS IN THE LEFT SACRUM IS INDETERMINATE. CLOSE ATTENTION ON FOLLOW-UP IS RECOMMENDED. Since 05/20/2023, post treatment primary tumor assessment: Incomplete response (likely residual tumor). mrTRG: Grade 4 - Partial response Suspicious Mesorectal lymph nodes: Yes. Suspicious Extramesorectal lymph nodes: No. 07/09/23 CEA 1.8 Physical Exam: Ht 180.3 cm (5' 11) Wt (!) 137 kg (302 lb 0.5 oz) BMI 42.12 kg/m General - awake, alert, no acute distress Abdominal - well healed skin incision Anorectal: Perianal skin is intact. No erythema, induration or excoriation. No fissure, fistula or external hemorrhoids. Digital Rectal Exam: Anus: closed Resting tone: NORMAL Squeeze tone: NORMAL Hospital Account Manager present: Yes, Flexible sigmoidoscopy: Procedure: The patient [...] Aguiar MD - 11/17/2023 8:58 AM EST [facility] STAFF PHYSICIAN NOTE [...] patient and family regarding the treatment of rectalcancer as a multidisciplinary approach using radiation, chemotherapy, and/or surgery. In a subset of cases, there will be a clinical response to chemoradiation such that there is no grossly remainingdetectable tumor by physical exam, imaging, and endoscopy. In those select circumstances, deferral of surgery is a treatment option, allowing for rectal preservation and avoidance of an ileostomy or colostomy. In these cases, approximately 80% of patients will have a sustained clinical response andnot require surgery. The patient understands that if [...] of SERVICE: 8:57 AM documented in this encounterPrem[facility] Hospital Discharge instructions Additional Instructions [facility]: [facility]: 1(208) 861-225602-29-2024 Discharge summary Author Shilo Cortez [facility] November 12, 2023 7:04am Note Date/Time November 12, 2023 7:04am [facility] Medical Records Department [address] [place] [address] Instructions for Home/Discharge Instructions 11/12/23 0704 MR#: [id number] Acct: [id number] Name: MIGUE GUNTER Rep #:[id number] : 1960 63 From: Shilo Cortez MD PCP: Dr. Jt Membreno MD Status:AD Deya WATERMAN Discharge Instructions Diet Discharge Diet: No restrictions Activity Discharge Activity: Return to Normal Activity and May Not Drive (while taking narcotic pain medications.) Dressing / Incision Call your doctor if you observe: Fever of 101 or Higher Follow Up Care Please Follow Up With: Shilo Cortez MD When: Call [phone] for an appointment Test Results: Test results from this visit will be discussed in further detail at your follow- up appointment, if applicable. Discharge Plan Admission Admit Date/Time: 11/11/23 17:44 Primary Reason for Your Visit: kidney stone Attending Provider: Shilo Cortez Primary Care Provider: Jt Membreno Discharge Orders/Prescriptions Prescriptions: New oxycodone 5 mg tablet 5 mg PO Q6H PRN (Reason: pain) 7 Days Qty: 14 0RF Continued benazepril 20 mg tablet 20 mg PO DAILY Patient Comments: TAKE 1 TABLET BY MOUTH EVERY DAY sertraline 50 mg tablet 50 mg PO DAILY lidocaine-prilocaine 2.5-2.5 % cream 1 applic topical ONCE PRN (Reason: port access) 30 Days Qty: 30 2RF Hold Instructions: MD Ordered cholecalciferol (vitamin D3) 2,000 UNIT capsule 2,000 unit PO DAILY omeprazole 20 mg capsule,delayed release(DR/EC) 20 mg PO Q OTHER DAY PRN (Reason: GERD) warfarin [Jantoven] 3 mg tablet 3 mg PO DAILY furosemide 40 mg tablet 40 mg PO DAILY rosuvastatin [Crestor] 5 mg tablet 5 mg PO Q OTHER DAY Qty: 45 3RF aspirin [Enteric Coated Aspirin] 81 mg tablet,delayed release (DR/EC) 81 mg PO DAILY Qty: 90 3RF diltiazem HCl 300 mg capsule,extended release 24hr 300 mg PO DAILY Qty: 90 3RF diclofenac sodium 1 % gel See Rx Instructions .ROUTE .COMPLEX Qty: 100 2RF Dose Instruction: 2 G TOPICALLY TWICE A DAY APPLY TO HANDS AND FEET TWICE DAILY Rx Instructions: 2 G TOPICALLY TWICE A DAY APPLY TO HANDS AND FEET TWICE DAILY Referrals / Follow Up: Shilo Cortez MD [Med Staff - Active Staff] - Jt Membreno MD [Primary Care Provider] - 11/12/23 0704<Electronically signed by Shilo Cortez MD>Shilo Cortez MD CC: Dr. Jt Membreno MD ~ Signed [facility] Work Phone: 1(860) 325-856202-29-2024 Progress note Author Shilo Cortez [facility] November 12, 2023 7:02am Note Date/Time November 12, 2023 7:02am [facility] Medical Records Department [address] [place] [id number] Progress Note - Urology 11/12/23 0701 MR#: [id number] Acct: [id number] Name: MIGUE GUNTER Rep #:[id number] : 1960 63 From: Shilo Cortez MD PCP: Dr. Jt Membreno MD Status:AD M GUEVARA Location: MS3 [id number] Subjective Subjective 63-year-old male has a very small stone in the distal right ureter very likely can pass it on his own this morning he has much less pain and is doing well. Will watch him for another 24 hours if he is still pain-free he can discharge home tomorrow. Objective Data Objective Data Vital Signs: Vital Signs Temp Pulse Resp BP Pulse Ox O2 Del Method 97.4 F L 70 16 118/64 94 Room Air 11/11/23 23:25 11/11/23 23:25 11/11/23 23:25 11/11/23 23:25 11/11/23 23:25 11/11/23 23:25 Oxygen Delivery Method Room Air Weight: 62.737 kg Body Mass Index (BMI) 19.3 Intake & Output: Intake and Output for Last 24 Hours 11/10/23 11/11/23 11/12/23 23:59 23:59 23:59 Intake Total 1300 / 1300 818.75 / 818.75 Balance 1300 / 1300 818.75 / 818.75 Lab / Micro Data 11/11/23 14:00 11/11/23 14:00 Labs: Laboratory Results - last 24 hr 11/11/23 14:00: WBC 7.9, RBC 3.24 L, Hgb 11.6 L, Hct 34.5 L, MCV 106.5 H, MCH 35.8 H, MCHC 33.6, RDW Std Deviation 70.9 H, RDW Coeff of [place] 17.9 H, Plt Count 151, MPV 9.4, Immature Gran % (Auto) 0.900, Neut % (Auto) 87.2 H, Lymph % (Auto)3.9 L, Lane % (Auto) 7.9, Eos % (Auto) 0.0, Baso % (Auto) 0.1, Absolute Neuts (auto) 6.8, Absolute Lymphs (auto) 0.31 L, Nucleated RBC % 0, Differential Comment SCANNED, Anisocytosis 1+, PT 19.4 H, INR 1.6, Sodium 142, Potassium 3.9,Chloride 110 H, Carbon Dioxide 23.0, Anion Gap 9, BUN 24 H, Creatinine 1.26, Estim Creat Clear Calc 83.18, Est GFR (MDRD) Af Amer 74, Est GFR (MDRD) Non-Af 61, BUN/Creatinine Ratio 19.0, Glucose 131 H, Lactic Acid 2.6 H*, Calcium 8.8, Total Bilirubin 0.60, AST 14 L, ALT 29, Alkaline Phosphatase 94, Total Protein 6.2 L, Albumin 3.1 L, Globulin 3.1, Albumin/Globulin Ratio 1.0 11/11/23 15:22: Urine Color Yellow, Urine Clarity Sl. Cloudy, Urine pH 7.0, Ur Specific [place] 1.015, Urine Protein 30 H, Urine Glucose (UA) 50 H, Urine Ketones Negative, Urine Occult Blood 250 H, Urine Nitrite Negative, Urine Bilirubin Negative, Urine Urobilinogen 1 H, Ur Leukocyte Esterase 25 H, Urine RBC 50-100 SEEN, Urine WBC 0 SEEN, Ur Squamous Epith Cells 0-5 SEEN, Urine Bacteria 0 SEEN, Urine Mucus 0 SEEN 11/11/23 18:39: Lactic Acid 1.8 Radiography Diagnostic Testing: Radiology Impression Abdomen/Pelvis CT 11/11/23 13:38 IMPRESSION: Mild degree of right hydronephrosis due to a tiny calculus at the right ureterovesical junction. The remainder of the examination is unchanged. Electronically Signed: Al Beasley MD at 15:40 EST Reading Location ID and State: [facility] / [place] , Service support , 11/12/23 0702 <Electronically signed by Shilo Cortez MD> Cosigner Signature (if applicable): CC: ~ Signed [facility] Work Phone: 1(617) 319-404602-28-2024 Discharge summary Author Yun [facility] November 11, 2023 5:22pm Note Date/Time November 11, 2023 4:49pm [facility] Medical Records Department [address] [place] [id number] Emergency Department Summary 11/11/23 MR#: [id number] Acct: [id number] Name: MIGUE GUNTER Rep #:[id number] : 1960 63 From: Yun Dorman PCP: Dr. 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 Patient states that started at rest this morning and is quite severe. Describes the pain as constant. Notes that he think he saw some blood in his urine. Has not tried thing for pain today. He has been having ongoing back pain as well for the past 2 weeks but actually an MRI for this yesterday. Has tried Tylenol and oxycodone for this back pain (over the past 2 weeks) but states it does not help . Today the pain is in his right lower quadrant and radiates to his flank and down to his groin. Denies any dysuria. States this feels different than his bilateral flank pain has been having associated with his back pain. Denies any fever or chills. No systemic symptoms reported. No other complaints or concerns at this time. 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 Low back pain Non-smoker CORRINA (obstructive sleep apnea) Pulmonary embolism (06/10/18) Rectal cancer Rectal mass Sinusitis Thyroid disease Weight gain with edema Home Medications cholecalciferol (vitamin D3) 50 mcg (2,000 unit) capsule 2,000 unit PO DAILY supplement 06/16/19 [History Last Taken 06/16/19] furosemide 40 mg tablet 40 mg PO DAILY diuretic 06/16/19 [History Last Taken 08/02/23] benazepril 20 mg tablet 20 mg PO DAILY blood pressure 01/09/21 [History Last Taken 08/02/23] sertraline 50 mg tablet 50 mg PO DAILY depression 01/09/21 [History Last Taken Unknown] omeprazole 20 mg capsule,delayed release 20 mg PO Q OTHER DAY PRN GERD 10/25/21 [History Last Taken 08/02/23] rosuvastatin 5 mg tablet (Crestor) 5 mg PO Q OTHER DAY cholesterol #45 tabs 12/25/22 [Rx Last Taken Unknown] aspirin 81 mg tablet,delayed release (Enteric Coated Aspirin) 81 mg PO DAILY heart #90 tabs 01/11/23 [Rx Last Taken 08/02/23] diltiazem HCl 300 mg capsule,extended release 24 hr 300 mg PO DAILY heart #90 caps 04/30/23 [Rx Last Taken 08/02/23] lidocaine-prilocaine 2.5 %-2.5 % topical cream 1 applic topical ONCE PRN port access 30 days #30 grams 07/29/23 [Rx Last Taken Unknown] diclofenac sodium 1 % topical gel See Rx Instructions .Route .COMPLEX #100 grams08/31/23 [Rx Last Taken Unknown] warfarin 3 mg tablet (Jantoven) 3 mg PO DAILY 11/11/23 [History Last Taken Unknown] Allergy/AdvReac Type Severity Reaction Status Date / Time apixaban [From Eliquis] AdvReac Severe Pt formed Verified 11/11/23 12:56 PE's in spite of taking routinely simvastatin AdvReac Severe Myalgias Verified 11/11/23 12:56 doxycycline AdvReac Intermediate GI upset Verified 11/11/23 12:56 Family History Mother CAD (coronary artery disease) Diabetes Hypertension Hyperlipidemia Heart disease Father CVA (cerebral vascular accident) Surgical History History of appendectomy History of appendectomy History of cardiac catheterization History of colonoscopy (~06/2016) History of hip surgery History of left heart catheterization (10/21/18) History of left inguinal hernia repair Social History Smoking Status: Never smoker alcohol intake: never substance use type: does not use caffeine: Yes Type: carbonated beverages Number of servings: 1 ROS ROS ED Constitutional Constitutional ED: Denies chills or fever(s) Respiratory/Chest Respiratory/Chest: Denies cough Gastrointestinal Gastrointestinal: Reports abdominal pain and nausea; Denies diarrhea or vomiting Genitourinary Genitourinary ED: Reports hematuria; Denies dysuria Musculoskeletal Musculoskeletal: Reports back pain; Denies arthralgias or myalgias Integumentary Denies rash Neurologic Neurologic: Denies headache(s) Psychiatric Psychiatric: Denies anxiety Hematologic/Lymphatic Hematologic/Lymphatic: Reports easy bleeding and easy bruising EXAM Physical Exam Const Vital Signs: 11/11/23 12:56 11/11/23 13:05 11/11/23 13:05 Temperature 95.9 F L 97.9 F Temperature Source Temporal Oral Pulse Rate 155 H 140 H 140 H Respiratory Rate 22 H 16 15 Blood Pressure 136/108 H 146/78 H 146/78 H Blood Pressure Mean 117 100 100 Pulse Ox 97 97 97 Oxygen Delivery Method Room Air Room Air Room Air 11/11/23 13:27 11/11/23 15:00 Temperature Temperature Source Pulse Rate 80 130 H Respiratory Rate 14 16 Blood Pressure 151/72 H 132/66 H Blood Pressure Mean 98 88 Pulse Ox 99 96 Oxygen Delivery Method Room Air Room Air Positive well nourished, well developed and obese General Appearance ED: well developed and NAD Nutritional Appearance: obese HEENT Reports moist mucous membranes Chest Wall inspection of chest normal Resp normal respiratory effort and clear to auscultation bilaterally Cardio regular rate, regular rhythm and no murmurs GI normal to inspection, nondistended, normoactive bowel sounds, non-tender and non-distended Back/Spine no CVA tenderness Back/Spine Narrative: No midline tenderness. Band-Aid over approximately L5 from recent injection. Right lower lumbar paraspinal tenderness however this is different from his acute pain per patient. Extremity normal to inspection Neuro oriented x3 Sensorium / Orientation: alert Motor Exam: Negative for general weakness Psych mental status grossly normal Skin no rashes or lesions noted and no wounds MDM MDM MDM Narrative Medical decision making narrative: Patient evaluated for severe right flank pain. This is acute today but he is also been having ongoing issues with bilateral back and flank pain. Chart review shows that patient had an outpatient lumbar MRI of the spine yesterday which showed postradiation changes to the sacrum, multilevel spinal stenosis secondary to his disease and bony hypertrophy and findings which may be consistent with metastatic lesion involving L5 vertebral body. In addition patient had an outpatient renal ultrasound on 10/29 for right-sided back pain which showed perinephric edema/fluid bilaterally but no kidney stone. On 10/[address] flank study which showed fatty liver, colonic diverticulosis but normal kidneys. Per nursing report patient is intermittently tachycardic however every time I alvarez the room patient is normal sinus rhythm. Urinalysis shows 250 blood on dip but only 25 leukocyte esterase and no nitrites. Microscopy is still pending. CBC is largely normal he has a mild but stable anemia with a hemoglobin of 11.6. His CMP is normal with a creatinine of 1.26 which appears to be his baseline. He does have an elevated creatinine of 2.6 which is obtained because patient hassome slight pain on proportion. INR is subtherapeutic at 1.6. Patient is go to tell me that he did not really drink any water yesterday. He is given some IV fluids in the ER. CT abdomen pelvis shows mild degree of righthydronephrosis due to a tiny calculus on the right UVJ with no other acute changes. Patient is initially given 1 mg IV Dilaudid for pain control as well as IV fluids. He continues to have significant pain is given a second dose of 1 mg IVDilaudid. He continues to have significant pain and was given 100 mcg of fentanyl and a dose of Toradol (since his INR subtherapeutic). I will admit forpain control to urology given this kidney stone which should pass on its own. Patient is agreeable this plan of care. Of note besides recent prescription for Percocet patient is not on chronic pain medication. Case is discussed with Dr. Cortez who accepts the patient to his service. Lab Data Attestation: I reviewed the patient's lab results. Labs: Laboratory Results - last 24 hr 11/11/23 11/11/23 14:00 15:22 WBC 7.9 RBC 3.24 L Hgb 11.6 L Hct 34.5 L MCV 106.5 H MCH 35.8 H MCHC 33.6 RDW Std Deviation 70.9 H RDW Coeff of [place] 17.9 H Plt Count 151 MPV 9.4 Immature Gran % (Auto) 0.900 Neut % (Auto) 87.2 H Lymph % (Auto) 3.[address] % (Auto) 7.9 Eos % (Auto) 0.0 Baso % (Auto) 0.1 Absolute Neuts (auto) 6.8 Absolute Lymphs (auto) 0.31 L Nucleated RBC % 0 Differential Comment SCANNED Anisocytosis 1+ PT 19.4 H INR 1.6 Sodium 142 Potassium 3.9 Chloride 110 H Carbon Dioxide 23.0 Anion Gap 9 BUN 24 H Creatinine 1.26 Estim Creat Clear Calc 83.18 Est GFR (MDRD) Af Amer 74 Est GFR (MDRD) Non-Af 61 BUN/Creatinine Ratio 19.0 Glucose 131 H Lactic Acid 2.6 H* Calcium 8.8 Total Bilirubin 0.60 AST 14 L ALT 29 Alkaline Phosphatase 94 Total Protein 6.2 L Albumin 3.1 L Globulin 3.1 Albumin/Globulin Ratio 1.0 Urine Color Yellow Urine Clarity Sl. Cloudy Urine pH 7.0 Ur Specific [place] 1.015 Urine Protein 30 H Urine Glucose (UA) 50 H Urine Ketones Negative Urine Occult Blood 250 H Urine Nitrite Negative Urine Bilirubin Negative Urine Urobilinogen 1 H Ur Leukocyte Esterase 25 H Urine RBC 50-100 SEEN Urine WBC 0 SEEN Ur Squamous Epith Cells 0-5 SEEN Urine Bacteria 0 SEEN Urine Mucus 0 SEEN Radiography Diagnostic Testing: Clinical Impression(s) from Imaging Studies Abdomen/Pelvis CT 11/11/23 13:38 IMPRESSION: Mild degree of right hydronephrosis due to a tiny calculus at the right ureterovesical junction. The remainder of the examination is unchanged. Electronically Signed: Al Beasley MD at 15:40 EST , Management Discussion w/another healthcare provider: Hospitalist and [employer] Back Tender Discharge Plan Triage Chief Complaint: Abd Pain ED Provider: Yun Sarmiento Dx/Rx/DC Orders Clinical Impression: Renal colic on right side, Hydroureter, right, Kidney stone on right side Prescriptions: No Action benazepril 20 mg tablet 20 mg PO DAILY Patient Comments: TAKE 1 TABLET BY MOUTH EVERY DAY sertraline 50 mg tablet 50 mg PO DAILY lidocaine-prilocaine 2.5-2.5 % cream 1 applic topical ONCE PRN (Reason: port access) 30 Days Qty: 30 2RF cholecalciferol (vitamin D3) 2,000 UNIT capsule 2,000 unit PO DAILY omeprazole 20 mg capsule,delayed release(DR/EC) 20 mg PO Q OTHER DAY PRN (Reason: GERD) warfarin [Jantoven] 3 mg tablet 3 mg PO DAILY furosemide 40 mg tablet 40 mg PO DAILY rosuvastatin [Crestor] 5 mg tablet 5 mg PO Q OTHER DAY Qty: 45 3RF aspirin [Enteric Coated Aspirin] 81 mg tablet,delayed release (DR/EC) 81 mg PO DAILY Qty: 90 3RF diltiazem HCl 300 mg capsule,extended release 24hr 300 mg PO DAILY Qty: 90 3RF diclofenac sodium 1 % gel See Rx Instructions .ROUTE .COMPLEX Qty: 100 2RF Dose Instruction: 2 G TOPICALLY TWICE A DAY APPLY TO HANDS AND FEET TWICE DAILY Rx Instructions: 2 G TOPICALLY TWICE A DAY APPLY TO HANDS AND FEET TWICE DAILY Primary Care Provider: Jt Membreno Referrals: Jt Membreno MD [Primary Care Provider] - Disposition Disposition: Acute Care Hospital [facility] What to do if you have Problems For any increased pain, shortness of breath, bleeding, nausea or vomiting, chestpain, or any unexpected problems, contact your Primary Care Provider. Call [facility] ([phone]) or report to the closest Emergency Room. Call 911 if necessary. 11/11/23 1722 <Electronically signed by Yun Sarmiento DO> Cosigner Signature (if applicable): CC: Dr. Jt Membreno MD ~ Signed [facility] Work Phone: 1(652) 399-336502-28-2024 History and physical note Author Shilo Cortez [facility] November 11, 2023 5:09pm Note Date/Time November 11, 2023 5:09pm [facility] Medical Records Department [address] [place] [id number] History & Physical Exam 11/11/23 1705 MR#: [id number] Acct: [id number] Name: MIGUE GUNTER Rep #:[id number] : 1960 63 From: Shilo Cortez MD PCP: Dr. Jt Membreno MD Status:RE G ER Location: ED HPI - General General Date of Admission: 11/11/23 Chief Complaint: right ureteral calculi HPI Narrative MIGUE GUNTER, is a 63 M who presents severe pain intractable , admitted from ER with small stone stuck in the [facility] Medical History Abdominal pain Acute cough Afib Arthritis Asthma Benign essential hypertension BiPAP (biphasic positive airway pressure) dependence Cancer Cardiology follow-up encounter COVID-19 Dry skin DVT (deep venous thrombosis) Dyspnea on exertion Edema Encounter for education Fatigue Gastric reflux Gastroesophageal reflux disease High cholesterol History of atrial fibrillation History of echocardiogram History of edema History of steroid therapy History of venous thromboembolism Hyperlipidemia Hypertension Hypokalemia Kidney stone prison current use 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 Low back pain Non-smoker CORRINA (obstructive sleep apnea) Pulmonary embolism (06/10/18) Rectal cancer Rectal mass Sinusitis Thyroid disease Weight gain with edema Home Medications cholecalciferol (vitamin D3) 50 mcg (2,000 unit) capsule 2,000 unit PO DAILY supplement 06/16/19 [History Last Taken 06/16/19] furosemide 40 mg tablet 40 mg PO DAILY diuretic 06/16/19 [History Last Taken 08/02/23] benazepril 20 mg tablet 20 mg PO DAILY blood pressure 01/09/21 [History Last Taken 08/02/23] sertraline 50 mg tablet 50 mg PO DAILY depression 01/09/21 [History Last Taken Unknown] omeprazole 20 mg capsule,delayed release 20 mg PO Q OTHER DAY PRN GERD 10/25/21 [History Last Taken 08/02/23] rosuvastatin 5 mg tablet (Crestor) 5 mg PO Q OTHER DAY cholesterol #45 tabs 12/25/22 [Rx Last Taken Unknown] aspirin 81 mg tablet,delayed release (Enteric Coated Aspirin) 81 mg PO DAILY heart #90 tabs 01/11/23 [Rx Last Taken 08/02/23] diltiazem HCl 300 mg capsule,extended release 24 hr 300 mg PO DAILY heart #90 caps 04/30/23 [Rx Last Taken 08/02/23] warfarin 3 mg tablet 3 mg PO QHS blood thinner 07/09/23 [History Last Taken 07/30/23] lidocaine-prilocaine 2.5 %-2.5 % topical cream 1 applic topical ONCE PRN port access 30 days #30 grams 07/29/23 [Rx Last Taken Unknown] warfarin 5 mg tablet 5 mg PO DAILY 08/10/23 [History Last Taken Unknown] diclofenac sodium 1 % topical gel See Rx Instructions .Route .COMPLEX #100 grams08/31/23 [Rx Last Taken Unknown] warfarin 1 mg tablet 1 mg PO .COMPLEX 10/12/23 [History Last Taken Unknown] Allergy/AdvReac Type Severity Reaction Status Date / Time apixaban [From [employer]] AdvReac Severe Pt formed Verified 11/11/23 12:56 PE's in spite of taking routinely simvastatin AdvReac Severe Myalgias Verified 11/11/23 12:56 doxycycline AdvReac Intermediate GI upset Verified 11/11/23 12:56 Family History Mother CAD (coronary artery disease) Diabetes Hypertension Hyperlipidemia Heart disease Father CVA (cerebral vascular accident) Surgical History History of appendectomy History of appendectomy History of cardiac catheterization History of colonoscopy (~06/2016) History of hip surgery History of left heart catheterization (10/21/18) History of left inguinal hernia repair Social History Smoking Status: Never smoker alcohol intake: never substance use type: does not use caffeine: Yes Type: carbonated beverages Number of servings: 1 ROS Constitutional Constitutional: Denies chills, fever(s) or malaise Eyes Eyes: Denies blurry vision or change in vision ENT HEENT: Reports none Cardiovascular Cardiovascular: Denies chest pain or palpitations Respiratory/Chest Respiratory/Chest: Denies cough or shortness of breath with exertion Gastrointestinal Gastrointestinal: Denies abdominal pain, constipation or diarrhea Musculoskeletal Musculoskeletal: Denies back pain, joint stiffness or joint swelling Integumentary Integumentary: Denies dry skin, jaundice, lesions or rash Neurologic Neurologic: Denies confusion, syncope or weakness Psychiatric Psychiatric: Reports none; Denies anxiety or depression Endocrine Endocrinology: Denies excessive sweating, fatigue or flushing Hematologic/Lymphatic Hematologic/Lymphatic: Denies anemia, easy bleeding or easy bruising Vital Signs Vital Signs Vital Signs: 11/11/23 12:56 11/11/23 13:05 11/11/23 13:05 Temperature 95.9 F L 97.9 F Temperature Source Temporal Oral Pulse Rate 155 H 140 H 140 H Respiratory Rate 22 H 16 15 Blood Pressure 136/108 H 146/78 H 146/78 H Blood Pressure Mean 117 100 100 Pulse Ox 97 97 97 Oxygen Delivery Method Room Air Room Air Room Air 11/11/23 13:27 11/11/23 15:00 Temperature Temperature Source Pulse Rate 80 130 H Respiratory Rate 14 16 Blood Pressure 151/72 H 132/66 H Blood Pressure Mean 98 88 Pulse Ox 99 96 Oxygen Delivery Method Room Air Room Air Weight Weight: 138.6 kg Body Mass Index (BMI) 42.6 Physical Exam Const alert and oriented x3 General Appearance: cooperative HEENT normocephalic, head/scalp atraumatic, EAC's normal and TM's normal bilaterally Eyes PERRL and EOMs intact bilaterally Pupil: sluggish Neck no lymphadenopathy, supple and no JVD General: trachea midline Lymph Lymphatic: no lymphadenopathy noted, lymphedema and lymphadenopathy Resp normal respiratory effort, normal air movement and clear to auscultation bilaterally Cardio regular rate, regular rhythm and peripheral pulses 2+ throughout GI soft to palpation, non-tender and non-distended Extremity normal capillary refill and no clubbing, cyanosis or edema General Extremity: no tenderness to palpation of joints or extremities Skin no rashes or lesions noted General Skin Exam: turgor normal Lesions: no lesions Rashes: no rashes Neuro CN's II-XII intact bilaterally Speech: speech normal Motor Exam: strength 5/5 throughout; Negative for general weakness Psych thought process normal, cooperative and affect normal Appearance: appropriate Results Medical Records Data Attestation: I reviewed the patient's medical records Lab / Micro Data 11/11/23 14:00 11/11/23 14:00 Labs: Laboratory Results - last 24 hr 11/11/23 14:00: WBC 7.9, RBC 3.24 L, Hgb 11.6 L, Hct 34.5 L, MCV 106.5 H, MCH 35.8 H, MCHC 33.6, RDW Std Deviation 70.9 H, RDW Coeff of [place] 17.9 H, Plt Count 151, MPV 9.4, Immature Gran % (Auto) 0.900, Neut % (Auto) 87.2 H, Lymph % (Auto)3.9 L, Lane % (Auto) 7.9, Eos % (Auto) 0.0, Baso % (Auto) 0.1, Absolute Neuts (auto) 6.8, Absolute Lymphs (auto) 0.31 L, Nucleated RBC % 0, Differential Comment SCANNED, Anisocytosis 1+, PT 19.4 H, INR 1.6, Sodium 142, Potassium 3.9,Chloride 110 H, Carbon Dioxide 23.0, Anion Gap 9, BUN 24 H, Creatinine 1.26, Estim Creat Clear Calc 83.18, Est GFR (MDRD) Af Amer 74, Est GFR (MDRD) Non-Af 61, BUN/Creatinine Ratio 19.0, Glucose 131 H, Lactic Acid 2.6 H*, Calcium 8.8, Total Bilirubin 0.60, AST 14 L, ALT 29, Alkaline Phosphatase 94, Total Protein 6.2 L, Albumin 3.1 L, Globulin 3.1, Albumin/Globulin Ratio 1.0 11/11/23 15:22: Urine Color Yellow, Urine Clarity Sl. Cloudy, Urine pH 7.0, Ur Specific [place] 1.015, Urine Protein 30 H, Urine Glucose (UA) 50 H, Urine Ketones Negative, Urine Occult Blood 250 H, Urine Nitrite Negative, Urine Bilirubin Negative, Urine Urobilinogen 1 H, Ur Leukocyte Esterase 25 H, Urine RBC 50-100 SEEN, Urine WBC 0 SEEN, Ur Squamous Epith Cells 0-5 SEEN, Urine Bacteria 0 SEEN, Urine Mucus 0 SEEN Imaging Radiology Impression Abdomen/Pelvis CT 11/11/23 13:38 IMPRESSION: Mild degree of right hydronephrosis due to a tiny calculus at the right ureterovesical junction. The remainder of the examination is unchanged. Electronically Signed: Al Beasley MD at 15:40 EST Reading Location ID and State: [facility] / [place] , Service support , Assessment & Plan Assessment/Plan (1) Renal colic on right side: PLAN: admit for severe intracable pain from kidney stone (2) Hydroureter, right: 11/11/23 1709 <Electronically signed by Shilo Cortez MD> Cosigner Signature (if applicable): CC: Dr. Jt Membreno MD; Dr. Shilo Cortez MD~ Signed [facility] Work Phone: 1(504) 350-399502-28-2024 History and physical note Author Shilo Cortez [facility] November 11, 2023 5:09pm Note Date/Time November 11, 2023 5:09pm [facility] Medical Records Department [address] [place] [address] [place] [address] History & Physical Exam 11/11/23 1705 MR#: [id number] Acct: [id number] Name: MIGUE GUNTER Rep #:[id number] : 1960 63 From: Shilo Cortez MD PCP: Dr. Jt Membreno MD Status:RE G ER Location: ED HPI - General General Date of Admission: 11/11/23 Chief Complaint: right ureteral calculi HPI Narrative MIGUE GUNTER, is a 63 M who presents severe pain intractable , [facility] Ab[facility] pain Acute cough Afib Arthritis Asthma Benign essential hypertension BiPAP (biphasic positive airway pressure) dependence Cancer Cardiology follow-up encounter COVID-19 Dry skin DVT (deep venous thrombosis) Dyspnea on exertion Edema Encounter for education Fatigue Gastric reflux Gastroesophageal reflux disease High cholesterol History of atrial fibrillation History of echocardiogram History of edema History of steroid therapy History of venous thromboembolism Hyperlipidemia Hypertension Hypokalemia Kidney stone prison current use 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 Low back pain Non-smoker CORRINA (obstructive sleep apnea) Pulmonary embolism (06/10/18) Rectal cancer Rectal mass Sinusitis Thyroid disease Weight gain with edema Home Medications cholecalciferol (vitamin D3) 50 mcg (2,000 unit) capsule 2,000 unit PO DAILY supplement 06/16/19 [History Last Taken 06/16/19] furosemide 40 mg tablet 40 mg PO DAILY diuretic 06/16/19 [History Last Taken 08/02/23] benazepril 20 mg tablet 20 mg PO DAILY blood pressure 01/09/21 [History Last Taken 08/02/23] sertraline 50 mg tablet 50 mg PO DAILY depression 01/09/21 [History Last Taken Unknown] omeprazole 20 mg capsule,delayed release 20 mg PO Q OTHER DAY PRN GERD 10/25/21 [History Last Taken 08/02/23] rosuvastatin 5 mg tablet (Crestor) 5 mg PO Q OTHER DAY cholesterol #45 tabs 12/25/22 [Rx Last Taken Unknown] aspirin 81 mg tablet,delayed release (Enteric Coated Aspirin) 81 mg PO DAILY heart #90 tabs 01/11/23 [Rx Last Taken 08/02/23] diltiazem HCl 300 mg capsule,extended release 24 hr 300 mg PO DAILY heart #90 caps 04/30/23 [Rx Last Taken 08/02/23] warfarin 3 mg tablet 3 mg PO QHS blood thinner 07/09/23 [History Last Taken 07/30/23] lidocaine-prilocaine 2.5 %-2.5 % topical cream 1 applic topical ONCE PRN port access 30 days #30 grams 07/29/23 [Rx Last Taken Unknown] warfarin 5 mg tablet 5 mg PO DAILY 08/10/23 [History Last Taken Unknown] diclofenac sodium 1 % topical gel See Rx Instructions .Route .COMPLEX #100 grams08/31/23 [Rx Last Taken Unknown] warfarin 1 mg tablet 1 mg PO .COMPLEX 10/12/23 [History Last Taken Unknown] Allergy/AdvReac Type Severity Reaction Status Date / Time apixaban [From Eliquis] AdvReac Severe Pt formed Verified 11/11/23 12:56 PE's in spite of taking routinely simvastatin AdvReac Severe Myalgias Verified 11/11/23 12:56 doxycycline AdvReac Intermediate GI upset Verified 11/11/23 12:56 Family History Mother CAD (coronary artery disease) Diabetes Hypertension Hyperlipidemia Heart disease Father CVA (cerebral vascular accident) Surgical History History of appendectomy History of appendectomy History of cardiac catheterization History of colonoscopy (~06/2016) History of hip surgery History of left heart catheterization (10/21/18) History of left inguinal hernia repair Social History Smoking Status: Never smoker alcohol intake: never substance use type: does not use caffeine: Yes Type: carbonated beverages Number of servings: 1 ROS Constitutional Constitutional: Denies chills, fever(s) or malaise Eyes Eyes: Denies blurry vision or change in vision ENT HEENT: Reports none Cardiovascular Cardiovascular: Denies chest pain or palpitations Respiratory/Chest Respiratory/Chest: Denies cough or shortness of breath with exertion Gastrointestinal Gastrointestinal: Denies abdominal pain, constipation or diarrhea Musculoskeletal Musculoskeletal: Denies back pain, joint stiffness or joint swelling Integumentary Integumentary: Denies dry skin, jaundice, lesions or rash Neurologic Neurologic: Denies confusion, syncope or weakness Psychiatric Psychiatric: Reports none; Denies anxiety or depression Endocrine Endocrinology: Denies excessive sweating, fatigue or flushing Hematologic/Lymphatic Hematologic/Lymphatic: Denies anemia, easy bleeding or easy bruising Vital Signs Vital Signs Vital Signs: 11/11/23 12:56 11/11/23 13:05 11/11/23 13:05 Temperature 95.9 F L 97.9 F Temperature Source Temporal Oral Pulse Rate 155 H 140 H 140 H Respiratory Rate 22 H 16 15 Blood Pressure 136/108 H 146/78 H 146/78 H Blood Pressure Mean 117 100 100 Pulse Ox 97 97 97 Oxygen Delivery Method Room Air Room Air Room Air 11/11/23 13:27 11/11/23 15:00 Temperature Temperature Source Pulse Rate 80 130 H Respiratory Rate 14 16 Blood Pressure 151/72 H 132/66 H Blood Pressure Mean 98 88 Pulse Ox 99 96 Oxygen Delivery Method Room Air Room Air Weight Weight: 138.6 kg Body Mass Index (BMI) 42.6 Physical Exam Const alert and oriented x3 General Appearance: cooperative HEENT normocephalic, head/scalp atraumatic, EAC's normal and TM's normal bilaterally Eyes PERRL and EOMs intact bilaterally Pupil: sluggish Neck no lymphadenopathy, supple and no JVD General: trachea midline Lymph Lymphatic: no lymphadenopathy noted, lymphedema and lymphadenopathy Resp normal respiratory effort, normal air movement and clear to auscultation bilaterally Cardio regular rate, regular rhythm and peripheral pulses 2+ throughout GI soft to palpation, non-tender and non-distended Extremity normal capillary refill and no clubbing, cyanosis or edema General Extremity: no tenderness to palpation of joints or extremities Skin no rashes or lesions noted General Skin Exam: turgor normal Lesions: no lesions Rashes: no rashes Neuro CN's II-XII intact bilaterally Speech: speech normal Motor Exam: strength 5/5 throughout; Negative for general weakness Psych thought process normal, cooperative and affect normal Appearance: appropriate Results Medical Records Data Attestation: I reviewed the patient's medical records Lab / Micro Data 11/11/23 14:00 11/11/23 14:00 Labs: Laboratory Results - last 24 hr 11/11/23 14:00: WBC 7.9, RBC 3.24 L, Hgb 11.6 L, Hct 34.5 L, MCV 106.5 H, MCH 35.8 H, MCHC 33.6, RDW Std Deviation 70.9 H, RDW Coeff of [place] 17.9 H, Plt Count 151, MPV 9.4, Immature Gran % (Auto) 0.900, Neut % (Auto) 87.2 H, Lymph % (Auto)3.9 L, Lane % (Auto) 7.9, Eos % (Auto) 0.0, Baso % (Auto) 0.1, Absolute Neuts (auto) 6.8, Absolute Lymphs (auto) 0.31 L, Nucleated RBC % 0, Differential Comment SCANNED, Anisocytosis 1+, PT 19.4 H, INR 1.6, Sodium 142, Potassium 3.9,Chloride 110 H, Carbon Dioxide 23.0, Anion Gap 9, BUN 24 H, Creatinine 1.26, Estim Creat Clear Calc 83.18, Est GFR (MDRD) Af Amer 74, Est GFR (MDRD) Non-Af 61, BUN/Creatinine Ratio 19.0, Glucose 131 H, Lactic Acid 2.6 H*, Calcium 8.8, Total Bilirubin 0.60, AST 14 L, ALT 29, Alkaline Phosphatase 94, Total Protein 6.2 L, Albumin 3.1 L, Globulin 3.1, Albumin/Globulin Ratio 1.0 11/11/23 15:22: Urine Color Yellow, Urine Clarity Sl. Cloudy, Urine pH 7.0, Ur Specific [place] 1.015, Urine Protein 30 H, Urine Glucose (UA) 50 H, Urine Ketones Negative, Urine Occult Blood 250 H, Urine Nitrite Negative, Urine Bilirubin Negative, Urine Urobilinogen 1 H, Ur Leukocyte Esterase 25 H, Urine RBC 50-100 SEEN, Urine WBC 0 SEEN, Ur Squamous Epith Cells 0-5 SEEN, Urine Bacteria 0 SEEN, Urine Mucus 0 SEEN Imaging Radiology Impression Abdomen/Pelvis CT 11/11/23 13:38 IMPRESSION: Mild degree of right hydronephrosis due to a tiny calculus at the right ureterovesical junction. The remainder of the examination is unchanged. Electronically Signed: Al Beasley MD at 15:40 EST , Assessment & Plan Assessment/Plan (1) Renal colic on right side: PLAN: admit for severe intracable pain from kidney stone (2) Hydroureter, right: 11/11/23 1709 <Electronically signed by Shilo Cortez MD> Cosigner Signature (if applicable): CC: Dr. Jt Membreno MD; Dr. Shilo Cortez MD~ Signed [facility] Work Phone: 1(724) 830-604902-21-2024 History of Present illness Narrative* Alia Anderson RT(R) - 11/04/2023 1:00 PM EST Radiology Service Progress Note PATIENT NAME: Migue Gunter DATE OF SERVICE: November 04, 2023 TIME: 12:50 PM PATIENT IDENTITY VERIFICATION COMPLETED USING TWO (2) IDENTIFIERS: Name and Date of confirmedby patient verbally. FALL SCREENING: Has the patient had 2 falls in the last year or 1 fall with injury or currently using an Ambulatory Assistive Device (Walker, Cane, Wheelchair, Crutches, etc.)? No PATIENT GENDER DATA: Male PATIENT RELEVANT IMPLANT DATA REVIEWED: Yes PATIENT PRESENTS WITH AN IMPLANTABLE OR ATTACHED DIRECTOR OF ENROLLMENT: No RADIOLOGY DEPARTMENT: MR; Exam(s) Completed: Body: Rectal PERIPHERAL IV DATA: Site assessment: Clean,Dry and Intact, Site disposition Discontinued SIGNED BY: RT Henrique(R) November 04, 2023 12:50 PM documented in this encounterPremier Health [facility]02-19-2024 Miscellaneous Notes* Telephone Encounter - Pilar Alfredo - 11/02/2023 4:27 PM EST Pt given information below. * Telephone Encounter - Zuleyma Pinto - 11/02/2023 4:20 PM EST Left message for patient to return call. When he calls, please advise that he is to report at 12:45to the infusion center for port access for his MRI appointment on 11/04. Zuleyma Pinto * Telephone Encounter - Carolina Cristobal PSS - 11/02/2023 4:13 PM EST Pt would like to use port for appt on 11/04/23 @ 1pm MRI .. Please call pt to confirm time documented in this encounterPremier Health [facility]02-14-2024 Miscellaneous Notes* Telephone Encounter - Maryann Maier RN - 10/28/2023 3:13 PM EST Called and spoke with Patient completed CORKY on 10.26.[address] scan done locally Needs MRI rectum, cea, and scope Patient prefers MRI and cea locally - asked schedulers [facility] * Telephone Encounter - June Veras - 10/28/2023 2:59 PM EST [phone] returning nurse's call from yesterday. documented in this encounterPremier Health [facility]02-13-2024 Miscellaneous Notes* Telephone Encounter - Maryann Maier RN - 10/27/2023 5:52 PM EST Called patient number listed in message, no answer, left detailed VM requesting patient or to call back to discuss scheduling imaging and scope after CORKY - happy to coordinate all in one day here at [facility] * Telephone Encounter - Mary Kay Mitchell - 10/26/2023 3:46 PM EST Myriam, the patient's is calling to discuss his complete of his CORKY treatment. She wants to discuss the timing for his next colonoscopy and having it done locally. She needs the orders placed forthe repeat imaging. [phone] documented in this encounterPremier Health [facility]02-11-2024 Discharge summary Author Glenn Coreas [facility] October 25, 2023 12:19pm Note Date/Time October 25, 2023 9:12am [facility] Medical Records Department [address] [place] [address] Emergency Department Summary 10/25/23 MR#: [id number] Acct: [id number] Name: MIGUE GUNTER Rep #:[id number] : 1960 63 From: Glenn Coreas MD PCP: Dr. Jt Membreno MD Status:RE G ER Location: ED HPI HPI - GI History of Present Illness Chief Complaint: Flank Pain Informant: patient Abdominal Pain/Flank Pain Onset: Days Context: Gradual Onset Timing: Continuous Quality: Aching Location: RLQ and Right Flank Current Severity: Moderate Maximum Severity: Moderate Worsened by: Movement Relieved by: Nothing Nausea/Vomiting/Emesis GI Symptom: Negative for Nausea or Vomiting Diarrhea/Melena/Hematochezia GI Symptom: Negative for Diarrhea, Melena or Hematochezia Associated Symptoms Associated Symptoms: Negative for Dysuria, Frequency, Hematuria or Urgency Narrative Narrative: 63-year-old male history of prior kidney stone x 1., Prior DVT and PE on Coumadin and rectal cancer for which she is undergoing chemotherapy as previously had radiation therapy also. Surgery is possibly pending. States on Thursday he got, right lower flank right lower quadrant abdominal pain sometimes radiates to the left side also from his back. Denies any fall injury or trauma. No dysuria. No change in his bowel movements. Worse with movement. Denies any fever or chills. Said this really does not feel like his prior kidney stone. Prior similar symptoms: Yes Recent Illness/Hospitalization: No PFSH PFSH Medical History Abdominal pain Acute cough Afib Arthritis Asthma Benign essential hypertension BiPAP (biphasic positive airway pressure) dependence Cancer Cardiology follow-up encounter COVID-19 Dry skin DVT (deep venous thrombosis) Dyspnea on exertion Edema Encounter for education Fatigue Gastric reflux Gastroesophageal reflux disease High cholesterol History of atrial fibrillation History of echocardiogram History of edema History of steroid therapy History of venous thromboembolism Hyperlipidemia Hypertension Hypokalemia Kidney 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 Non-smoker CORRINA (obstructive sleep apnea) Pulmonary embolism (06/10/18) Rectal cancer Rectal mass Sinusitis Thyroid disease Weight gain with edema Home Medications cholecalciferol (vitamin D3) 50 mcg (2,000 unit) capsule 2,000 unit PO DAILY supplement 06/16/19 [History Last Taken 06/16/19] furosemide 40 mg tablet 40 mg PO DAILY diuretic 06/16/19 [History Last Taken 08/02/23] benazepril 20 mg tablet 20 mg PO DAILY blood pressure 01/09/21 [History Last Taken 08/02/23] sertraline 50 mg tablet 50 mg PO DAILY depression 01/09/21 [History Last Taken Unknown] omeprazole 20 mg capsule,delayed release 20 mg PO Q OTHER DAY PRN GERD 10/25/21 [History Last Taken 08/02/23] rosuvastatin 5 mg tablet (Crestor) 5 mg PO Q OTHER DAY cholesterol #45 tabs 12/25/22 [Rx Last Taken Unknown] aspirin 81 mg tablet,delayed release (Enteric Coated Aspirin) 81 mg PO DAILY heart #90 tabs 01/11/23 [Rx Last Taken 08/02/23] diltiazem HCl 300 mg capsule,extended release 24 hr 300 mg PO DAILY heart #90 caps 04/30/23 [Rx Last Taken 08/02/23] warfarin 3 mg tablet 3 mg PO QHS blood thinner 07/09/23 [History Last Taken 07/30/23] lidocaine-prilocaine 2.5 %-2.5 % topical cream 1 applic topical ONCE PRN port access 30 days #30 grams 07/29/23 [Rx Last Taken Unknown] warfarin 5 mg tablet 5 mg PO DAILY 08/10/23 [History Last Taken Unknown] diclofenac sodium 1 % topical gel See Rx Instructions .Route .COMPLEX #100 grams08/31/23 [Rx Last Taken Unknown] potassium chloride 20 mEq tablet,extended release 20 meq PO ONCE low potassium #30 tabs 09/15/23 [Rx Last Taken Unknown] warfarin 1 mg tablet 1 mg PO .COMPLEX 10/12/23 [History Last Taken Unknown] oxycodone-acetaminophen 5 mg-325 mg tablet (Percocet) 1 tab PO Q6H PRN pain 3 days #10 tabs 10/25/23 [Rx Last Taken Unknown] prednisone 20 mg tablet 40 mg (2 x 20 mg) PO DAILY 7 days #14 tabs 10/25/23 [Rx Last Taken Unknown] Allergy/AdvReac Type Severity Reaction Status Date / Time apixaban [From Eliquis] AdvReac Severe Pt formed Verified 10/25/23 08:40 PE's in spite of taking routinely simvastatin AdvReac Severe Myalgias Verified 10/25/23 08:40 doxycycline AdvReac Intermediate GI upset Verified 10/25/23 08:40 Family History Mother CAD (coronary artery disease) Diabetes Hypertension Hyperlipidemia Heart disease Father CVA (cerebral vascular accident) Surgical History History of appendectomy History of appendectomy History of cardiac catheterization History of colonoscopy (~06/2016) History of hip surgery History of left heart catheterization (10/21/18) History of left inguinal hernia repair Social History Smoking Status: Never smoker alcohol intake: never substance use type: does not use caffeine: Yes Type: carbonated beverages Number of servings: 1 ROS ROS ED ROS Narrative Right lower flank and abdominal pain. Denies any nausea vomiting diarrhea. No constipation. No dysuria or hematuria. No fever or chills. Review of Systems ROS Unobtainable: Denies due to encephalopathy Constitutional Constitutional ED: Denies chills or fever(s) ENT ENT ED: Denies ear pain Cardiovascular Cardiovascular: Denies chest pain Respiratory/Chest Respiratory/Chest: Denies cough or dyspnea Gastrointestinal Gastrointestinal: Reports abdominal pain; Denies constipation, diarrhea, melena,nausea or vomiting Genitourinary Genitourinary ED: Denies dysuria, hematuria or urinary frequency Musculoskeletal Musculoskeletal: Denies arthralgias Neurologic Neurologic: Denies headache(s) Psychiatric Psychiatric: Denies anxiety or depression Endocrine Endocrinology: Denies polydipsia Hematologic/Lymphatic Hematologic/Lymphatic: Denies easy bleeding Allergic/Immunologic Allergic/Immunologic ED: Denies mouth swelling or tongue swelling EXAM Physical Exam Narrative Exam Narrative: 63-year-old male no acute distress vital signs stable afebrile. Sitting uprightin bed. at bedside. H EENT exam unremarkable. Lungs clear to auscultation bilaterally. Heart regular rhythm no murmur rate about 85. Chest wall and ribs nontender. Abdomen soft, nontender, nondistended, normal bowel sounds without peritoneal signs. No hernia or mass. Right upper or right lowerquadrant have no reproducible pain. External exam is unremarkable and nontender. Back and flank is nontender. There is no reproducible pain. It is worse when he went from a lying to a sitting upright position. There is no rashor shingles. There is no signs of trauma. Moving all 4 extremities. Neurovascularly intact. No edema in his lower extremities. Normal pulp mixer strength. Bilaterally. Normal dorsi plantarflexion bilaterally. Neurologically is awake and alert with no focal motor deficits. Benign exam. Const Vital Signs: 10/25/23 08:40 10/25/23 10:52 Temperature 96.7 F L Temperature Source Temporal Pulse Rate 86 50 L Respiratory Rate 18 16 Blood Pressure 160/55 H 138/63 H Blood Pressure Mean 90 88 Pulse Ox 98 96 Oxygen Delivery Method Room Air Room Air Positive well nourished and well developed; Negative for cachectic, contracturesor unkempt General Appearance ED: well developed and NAD; Negative for unkempt, cachectic, contractures or pallor Nutritional Appearance: Negative for cachectic HEENT Reports moist mucous membranes normocephalic and atraumatic; Negative for trauma or tenderness Eyes PERRL and EOMs intact bilaterally General Eye ED: Negative for pale conjunctiva or scleral icterus Neck no lymphadenopathy, supple and no JVD General: Negative for tenderness Carotids: Negative for other Lymph Lymphatic: Negative for other Resp normal respiratory effort and clear to auscultation bilaterally Effort and Inspection: Negative for respiratory distress Auscultation: Negative for rales, rhonchi or wheezes Cardio regular rate, regular rhythm, S1 normal heart sound, S2 normal heart sound and no murmurs Rate: Negative for bradycardia or tachycardic Rhythm: Negative for abnormal rhythm GI non-tender, non-distended and no masses Inspection: Negative for abdominal distention Auscultation: normoactive bowel sounds Palpation: soft; Negative for tender, guarding, pulsatile mass or rebound tenderness present Back/Spine no CVA tenderness General Back: Negative for CVA tenderness Cervical Spine: Negative for cervical spine tenderness Thoracic Spine / Upper Back: Negative for thoracic spinal tenderness Lumbar Spine / Lower Back: Negative for lumbar spinal tenderness Coccyx: Negative for other Extremity full ROM General Extremety ED: Negative for edema or tenderness General Extremity: Negative for edema Neuro CN's II-XII intact bilaterally and moves all extremities Sensorium / Orientation: alert, oriented to person, oriented to place and oriented to time; Negative for orientation impaired or confused Motor Exam: strength 5/5 throughout Psych mental status grossly normal and thought process normal Appearance: Negative for unkempt Attitude: No agitated Mood & Affect: Negative for depressed, anxious or tearful Skin no wounds General Skin Exam: Negative for jaundice or pallor Lesions: no lesions Rashes: no rashes Trauma: Negative for abrasion Nails: Negative for discolored MDM MDM MDM Narrative Medical decision making narrative: 63-year-old male with 3-day history of right flank and right lower quadrant abdominal pain. Not reproducible on exam. Clinically unlikely to be appendicitis. Seems too low to be kidney stone. It may be musculoskeletal backpain that is worse when he went from a lying to a seated upright position in bed. There is no rash like shingles. CAT scan labs and urinalysis are being obtained. Patient states its moderate pain he is being given morphine IV and Zofran. Repeat exam at 12PM.Patient doing well. No change. Abdomen benign. Again painprimarily with movement.We went over all his test results. We placed on prednisone 40 mg a day for a week. 10 Percocet for more severe pain. And outpatient follow-up. History & Record Review Discussion w/independent historian: Patient Additional record(s) reviewed:: Prior inpatient record, Prior outpatient record,Prior ED visit and Prior labs Lab Data Attestation: I reviewed the patient's lab results. Lab results narrative: CBC shows a white count of 4. H&H 10 and 29. Platelets 152. Patient is on Coumadin his INR is 3.6. Electrolytes show sodium 146. Potassium 3.4. Gap of 9. BUN of 23 and creatinine of 1. Glucose 165. UA normal. CAT scan shows no significant cause of his pain. Labs: Laboratory Results - last 24 hr 10/25/23 10/25/23 09:25 10:45 WBC 4.1 L RBC 2.85 L Hgb 10.2 L Hct 29.8 L MCV 104.6 H MCH 35.8 H MCHC 34.2 RDW Std Deviation 66.4 H RDW Coeff of [place] 18.2 H Plt Count 152 MPV 9.0 Immature Gran % (Auto) 0.700 Neut % (Auto) 82.9 H Lymph % (Auto) 6.[address] % (Auto) 9.1 Eos % (Auto) 0.5 Baso % (Auto) 0.7 Absolute Neuts (auto) 3.4 Absolute Lymphs (auto) 0.25 L Nucleated RBC % 0 Differential Comment SCANNED Hypochromasia 1+ Anisocytosis 2+ Microcytosis 1+ Macrocytosis 1+ PT 36.1 H INR 3.6 Sodium 146 H Potassium 3.4 L Chloride 114 H Carbon Dioxide 23.0 Anion Gap 9 BUN 23 H Creatinine 1.03 Estim Creat Clear Calc 101.49 Est GFR (MDRD) Af Amer 93 Est GFR (MDRD) Non-Af 77 BUN/Creatinine Ratio 22.3 H Glucose 165 H Calcium 8.2 L Urine Color Yellow Urine Clarity Clear Urine pH 6.5 Ur Specific [place] 1.015 Urine Protein 15 H Urine Glucose (UA) 250 H Urine Ketones Negative Urine Occult Blood 10 H Urine Nitrite Negative Urine Bilirubin Negative Urine Urobilinogen Normal Ur Leukocyte Esterase Negative Urine RBC 0 SEEN Urine WBC 0 SEEN Ur Squamous Epith Cells 0-5 SEEN Urine Bacteria 0 SEEN Urine Mucus 0 SEEN Radiography Diagnostic Testing: Clinical Impression(s) from Imaging Studies Abdomen/Pelvis CT 10/25/23 09:10 IMPRESSION: Fatty infiltration of the liver associated with hepatomegaly. Colonic diverticulosis. Electronically Signed: Nica Kumar MD at 11:10 EST , Discharge Plan Triage Chief Complaint: Flank Pain ED Provider: Glenn Coreas Dx/Rx/DC Orders Clinical Impression: Bilateral flank pain, Chronic anticoagulation, History of pulmonary embolus (PE) Instructions: ED Flank Pain, Uncertain Cause Prescriptions: New prednisone 20 mg tablet 40 mg PO DAILY 7 Days Qty: 14 0RF oxycodone-acetaminophen [Percocet] 5-325 mg tablet 1 tab PO Q6H PRN (Reason: pain) 3 Days Qty: 10 0RF No Action benazepril 20 mg tablet 20 mg PO DAILY Patient Comments: TAKE 1 TABLET BY MOUTH EVERY DAY sertraline 50 mg tablet 50 mg PO DAILY lidocaine-prilocaine 2.5-2.5 % cream 1 applic topical ONCE PRN (Reason: port access) 30 Days Qty: 30 2RF potassium chloride 20 mEq tablet extended release 20 meq PO ONCE Qty: 30 1RF cholecalciferol (vitamin D3) 2,000 UNIT capsule 2,000 unit PO DAILY omeprazole 20 mg capsule,delayed release(DR/EC) 20 mg PO Q OTHER DAY PRN (Reason: GERD) warfarin 3 mg tablet 3 mg PO QHS Protocol: Dose Management Condition: Thursday Dose/Route: 3 mg Instruction: 1 x 3 mg tablet Condition: Thursday Dose/Route: 1 mg Instruction: 1 x 1 mg tablet Condition: Thursday Dose/Route: 3 mg Instruction: 1 x 3 mg tablet Condition: Thursday Dose/Route: 3 mg Instruction: 1 x 3 mg tablet Condition: Dose/Route: 3 mg Instruction: 1 x 3 mg tablet Condition: Thursday Dose/Route: 3 mg Instruction: 1 x 3 mg tablet Condition: Thursday Dose/Route: 3 mg Instruction: 1 x 3 mg tablet Protocol Text: Adjustment Start Date: Thursday10/12/23 INR Value: 3.2 INR Date: 10/12/23 Recheck Date: 10/26/23 Rx Instructions: Dose change to 8mg daily: needs 5mg +3mg tabs furosemide 40 mg tablet 40 mg PO DAILY rosuvastatin [Crestor] 5 mg tablet 5 mg PO Q OTHER DAY Qty: 45 3RF aspirin [Enteric Coated Aspirin] 81 mg tablet,delayed release (DR/EC) 81 mg PO DAILY Qty: 90 3RF diltiazem HCl 300 mg capsule,extended release 24hr 300 mg PO DAILY Qty: 90 3RF warfarin 5 mg tablet 5 mg PO DAILY Protocol: Dose Management Condition: Thursday Dose/Route: 3 mg Instruction: 1 x 3 mg tablet Condition: Thursday Dose/Route: 1 mg Instruction: 1 x 1 mg tablet Condition: Thursday Dose/Route: 3 mg Instruction: 1 x 3 mg tablet Condition: Thursday Dose/Route: 3 mg Instruction: 1 x 3 mg tablet Condition: Dose/Route: 3 mg Instruction: 1 x 3 mg tablet Condition: Thursday Dose/Route: 3 mg Instruction: 1 x 3 mg tablet Condition: Thursday Dose/Route: 3 mg Instruction: 1 x 3 mg tablet Protocol Text: Adjustment Start Date: Thursday10/12/23 INR Value: 3.2 INR Date: 10/12/23 Recheck Date: 10/26/23 diclofenac sodium 1 % gel See Rx Instructions .ROUTE .COMPLEX Qty: 100 2RF Dose Instruction: 2 G TOPICALLY TWICE A DAY APPLY TO HANDS AND FEET TWICE DAILY Rx Instructions: 2 G TOPICALLY TWICE A DAY APPLY TO HANDS AND FEET TWICE DAILY warfarin 1 mg tablet 1 mg PO .COMPLEX Protocol: Dose Management Condition: Thursday Dose/Route: 3 mg Instruction: 1 x 3 mg tablet Condition: Thursday Dose/Route: 1 mg Instruction: 1 x 1 mg tablet Condition: Thursday Dose/Route: 3 mg Instruction: 1 x 3 mg tablet Condition: Thursday Dose/Route: 3 mg Instruction: 1 x 3 mg tablet Condition: Dose/Route: 3 mg Instruction: 1 x 3 mg tablet Condition: Thursday Dose/Route: 3 mg Instruction: 1 x 3 mg tablet Condition: Thursday Dose/Route: 3 mg Instruction: 1 x 3 mg tablet Protocol Text: Adjustment Start Date: Thursday10/12/23 INR Value: 3.2 INR Date: 10/12/23 Recheck Date: 10/26/23 Rx Instructions: 1 mg orally as directed for dose changes; Primary Care Provider: Jt Membreno Referrals: Jt Membreno MD [Primary Care Provider] - As Needed Activity Restrictions/Additional Instructions: Percocet for more severe pain. Prednisone daily for a week Follow-up with your doctor if not improving. Disposition Disposition: Home, Self Care What to do if you have Problems For any increased pain, shortness of breath, bleeding, nausea or vomiting, chestpain, or any unexpected problems, contact your Primary Care Provider. Call [facility] ([phone]) or report to the closest Emergency Room. Call 911 if necessary. 10/25/23 1217 <Electronically signed by Glenn Coreas MD> Cosigner Signature (if applicable): CC: Dr. Jt Membreno MD ~ Signed [facility] Work Phone: 1(383) 156-417611-21-2023 History of Present illness Narrative* Ernesto Aguiar MD - 08/04/2023 1:00 PM EST COLORECTAL SURGERY Follow-up August 04, 2023 Chief [...] radiology. Physical Exam: Ht 180.3 cm (5' 11) Wt 129.7 kg (286 lb) BMI 39.89 kg/m General - awake, alert, no acute distress Abdominal - soft, nontender, nondistended Anorectal: Perianal skin is intact. No erythema, induration or excoriation. No fissure, fistula or external hemorrhoids. Digital Rectal Exam: Anus: closed Resting tone: NORMAL Squeeze tone: NORMAL Hospital Account Manager present: Yes, Miranda Gutierrez Palpable mass at [...] of SERVICE: 12:54 PM documented in this encounterPrem[facility]11-20-2023 History and physical note Author Alon Boland [facility] August 03, 2023 9:02am Note Date/Time August 03, 2023 8:45am [facility] Medical Records Department [address] [place] [address] History & Physical Exam 08/03/23 0844 MR#: [id number] Acct: [id number] Name: MIGUE GUNTER Rep #:[id number] : 1960 63 From: Alon Boland MD PCP: Dr. Jt Membreno MD Status:[facility] Location: [place] [address] History and Physical Date of Admission: 08/03/23 Chief Complaint: port consult Demand Planning Analyst Required: No Is patient in pain?: No Allergies apixaban [From Eliquis] Adverse Reaction (Severe, Verified 07/15/23 15:04) Pt formed PE's in spite of taking routinelysimvastatin Adverse Reaction (Severe,Verified 07/15/23 15:04) Myalgiasdoxycycline Adverse Reaction (Intermediate, Verified 07/15/23 15:04) GI upset Medications cholecalciferol (vitamin D3) 50 mcg (2,000 unit) capsule 2,000 unit PO DAILY supplement 06/16/19 [History Confirmed 07/15/23] furosemide 40 mg tablet 40 mg PO DAILY diuretic 06/16/19 [History Confirmed 07/15/23] benazepril 20 mg tablet 20 mg PO DAILY blood pressure 01/09/21 [History Confirmed 07/15/23] sertraline 50 mg tablet 50 mg PO DAILY depression 01/09/21 [History Confirmed 07/15/23] omeprazole 20 mg capsule,delayed release 20 mg PO Q OTHER DAY PRN GERD 10/25/21 [History Confirmed 07/15/23] rosuvastatin 5 mg tablet (Crestor) 5 mg PO Q OTHER DAY cholesterol #45 tabs 12/25/22 [Rx Confirmed 07/15/23] aspirin 81 mg tablet,delayed release (Enteric Coated Aspirin) 81 mg PO DAILY heart #90 tabs 01/11/23 [Rx Confirmed 07/15/23] diltiazem HCl 300 mg capsule,extended release 24 hr 300 mg PO DAILY heart #90 caps 04/30/23 [Rx Confirmed 07/15/23] potassium chloride 20 mEq tablet,extended release 20 meq PO DAILY low potassium #14 tabs 07/07/23 [Rx Confirmed 07/15/23] warfarin 3 mg tablet 3 mg PO QHS blood thinner 07/09/23 [History Confirmed 07/15/23] PFSH Medical History Abdominal pain Acute cough Afib Arthritis Asthma Benign essential hypertension BiPAP (biphasic positive airway pressure) dependence Cancer Cardiology follow-up encounter COVID-19 DVT (deep venous thrombosis) Dyspnea on exertion Edema Encounter for education Gastric reflux Gastroesophageal reflux disease High cholesterol History of atrial fibrillation History of echocardiogram History of edema History of steroid therapy History of venous thromboembolism Hyperlipidemia Hypertension Kidney 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 Non-smoker CORRINA (obstructive sleep apnea) Pulmonary embolism (06/10/18) Rectal cancer Rectal mass Sinusitis Thyroid disease Weight gain with edema Surgical History History of appendectomy History of appendectomy History of cardiac catheterization History of colonoscopy (~06/2016) History of hip surgery History of left heart catheterization (10/21/18) History of left inguinal hernia repair Family History Mother CAD (coronary artery disease) Diabetes Hypertension Hyperlipidemia Heart diseaseFather CVA (cerebral vascular accident) Social History Smoking Status: Never smoker alcohol intake: never substance use type: does not use caffeine: Yes Type: carbonated beverages Number of servings: 1 HPI HPI HPI: Patient is a 63 y/o M I am following with new diagnosed rectal cancer. Patient is scheduled to start chemotherapy at the end of July. Patient denies previous port-a-cath placement. He denies previous central lines. Patient is right handed. Patient denies previous complications with anesthesia. Patient recently have a fine needle aspiration of a left thyroid nodule by Dr. Boland on 06/22/23. 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 See comment. AM:anca 06/23/2023 COMMENT The Bonnie System for thyroid diagnostic categorization was used in the evaluation of this case. Per recommendations and a clinician-approved plan (a call was made to the referring doctor about the recommendation), genomic testing (Afirma) has been submitted. Results will be reported as an addendum and faxed to clinician. Afirma testing was completed and suggested a low risk of cancer. ROS General General: No weight change, appetite, fatigue, colon cancer, breast cancer or weakness HEENT HEENT: No difficulty swallowing, eye injury, eye surgery, swollen glands or hoarseness Endo Endocrine: No thyroid disease, diabetes mellitus, thyroid cancer, Hair loss, heat intolerance or cold intolerance Skin Skin: No rash or changing moles Breast Breast: No left breast lump, right breast lump, nipple discharge, breast pain, abnormal mammogram, abnormal US or breast enlargement Musc Musculoskeletal: Yes back problems and arthritis; No rheumatoid arthritis, gout or joint pain Cardio Cardiovascular: Yes atrial fibrillation and high blood pressure; No murmur, pacemaker, heart disease, heart attack, heart stent, palpitations, shortness of breat with exertion or chest pain Psych Psychiatric: Yes anxiety; No depression or hearing voices Resp Respiratory: No shortness of breath, Yes sleep apnea, No cough, No COPD, No asthma, No emphysema and No wheezing Gastro Gastrointestinal: No abdominal pain, No nausea or vomiting, No diarrhea, No constipation, No blood in stool, Yes acid reflux, Yes hemorrhoids, No ulcers, Nogallbladder problem and No black,tarry stools Juma Hematologic: Yes blood thinners, No blood disorders, No bleeding, No anemia and Yes blood clots Neuro Neurologic: No system reviewed and no additional complaints, except as documented, No as per HPI, No abnormal gait, No abnormal hearing, No abnormal movements, No abnormal speech, No behavioral changes, No burning sensations, No confusion, No convulsions, No disequilibrium, No dizziness, No localized weakness, No frequent falls, No headache(s), No lack of coordination, No loss ofvision, No memory loss, No numbness, No other visual disturbances, No radicular pain, No restless legs, No sensory deficit, No syncope, No tingling, No tremor(s), No weakness and No other Exam Const General: cooperative, healthy appearing, comfortable and no acute distress HENMT Head: normal to inspection Eyes General: appearance normal, both eyes and all related structures Neck Neck: normal visual inspection Neck mass: No Resp Effort & Inspection: normal respiratory effort Auscultation: clear to auscultation bilaterally Cardio Rate: regular rate Rhythm: regular rhythm GI Inspection: normal to inspection Palpation: soft Auscultation: normal bowel sounds Musc Cervical Spine: normal cervical lordosis Skin General: no rashes or lesions noted Neuro General: no focal motor deficits and CN's II-XI intact bilaterally Extrem General: normal to inspection Psych Appearance: grossly normal Affect: normal affect Assessment and Plan Assessment and Plan (1) Rectal cancer: Status: Acute Plan: Dr. Boland will plan to perform a right possible left chest port-a-cath placement. Procedure details, risks and benefits have been explained. Patient will plan to hold his Coumadin 3 days prior to the procedure. Patient has had the opportunity to ask and have questions answered. Patient verbally understandsand agrees with the plan. Plan for repeat thyroid ultrasound in 1 year. Patient will be placed in recall. \ \The patient had previously been scheduled to have the port placed but arrived with acute abdominal pain and enteritis. Procedure needed to be postponed. He returns today for planned port placement to facilitate management of his rectal cancer. He is still having frequent stools. No bright red blood per rectum or melena. He did have COVID when he was hospitalized as well. He feels that those symptoms have abated. He is scheduled to see Dr. Ernesto Aguiar colorectal surgery tomorrow. We will proceed with port placement Alon Boland M.D., F.A.C.S. 08/03/23 0902 <Electronically signed by Alon Boland MD> Cosigner Signature (if applicable): CC: Dr. Jt Membreno MD; Dr. Alon Boland MD~ Signed [facility] Work Phone: 1(112) 643-720411-13-2023 Miscellaneous Notes* Telephone Encounter - Jonna Cartwright PA-C - 07/27/2023 4:19 PM EST Called and let patient know CT chest/abd/pel [...] PA-C 07/27/2023 4:21 PM [facility] History of Present illness Narrative* Zenaida Conte, RT(R) - 07/27/2023 2:00 PM EST Radiology Service Progress Note DATE OF SERVICE: [...] creatinine assay has traceable calibration to isotope dilution- mass spectrometry. Refer to KDIGO guidelines for clinical interpretation. In patients with unstable renal function, e.g. those with acute kidney injury, the eGFRmay not accurately reflect actual GFR. P.O.C.T. RESULTS: POC done: Yes, See Lab Tab July 27, 2023 TREATMENT: N/A PERIPHERAL IV DATA: Ambulatory: A peripheral IV was started in the Left antecubital site with a Angio cath: 22 gauge. RADIOLOGY DEPARTMENT: CT; Exam(s) Completed: Chest Abdomen Pelvis SIGNATURE: RT Maryanne(R) PATIENT NAME: Migue Gunter DATE: July 27, 2023 TIME: 4:08 PM documented in this [facility]Prem[facility] Discharge summary Author Sidney Dominguez [facility] July 17, 2023 10:06am Note Date/Time July 17, 2023 1 0:02am [facility] Medical Records Department [address] [place] [address] Discharge Summary 07/17/23 1001 MR#: [id number] Acct: [id number] Name: MIGUE GUNTER Rep #:[id number] : 1960 63 From: Sidney Dominguez MD PCP: Dr. Jt Membreno MD Status:AD M IN Location: [facility] [id number] Providers Date of Admission: 07/15/23 Date of Discharge: 07/17/23 Primary Care Physician: Dr. Jt Membreno MD Consultations 07/15/23 19:59 Consult: General Surgery Routine Consulting Provider: Estela Kwon Reason for Consult: peritonitis EMERGENT Consult: No MD Notified: Yes Date Notified: 07/15/23 Time Notified: 19:25 Method of Notification: Verbal Reason For Visit: PERITONITIS, ENTERITIS Diagnosis Discharge Diagnosis (1) Abdominal pain: Status: Acute Code(s): R10.9 - Unspecified abdominal pain Plan Patient a 63-year-old gentleman with history of Rectal CA admitted with abdominal pain with associated diarrhea 1. Acute enteritis CT of the abdomen and pelvis obtained on admission demonstrated Suspected enteritis of a loop of distal ileum in the right upper quadrant with a small amount of free fluid suggestive of peritonitis. No abscess or perforation. Sigmoid diverticulosis without diverticulitis. Possible proctitis or rectal mass. Patient admitted to regular nursing floor started on empiric antibiotic therapy with Zosyn with consultation placed to general surgery seen by Dr. Domingo is noted recommendations reviewed ? 07/17/2023: Patient seen symptoms improved plan is for patient to be discharged 2. Recent diagnosis of rectal CA ? Patient has completed radiation therapy started his chemo a week prior to his admission follows with oncology?Dr. Dia outpatient 3. Hypertension - Blood pressure controlled, home medications continued with dose adjustment as needed 4. Dyslipidemia -Patient is on statin therapy, continued at home dose 5. History of previous VTE with PE/DVT ? Patient is on Coumadin which is currently being monitored with daily INR. Patient had apparently received vitamin K on 07/12/2023 when his INR was noted to be 10.8 Coumadin subsequently held. INR on admission was 1.5 Coumadin resumed with subsequent monitoring ordered 6. Class II obesity with BMI 40.2 ? Complicating care weight loss advised 7. GERD ? Patient on PPI 8. Depression ? Patient is on sertraline continue 9. 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 Dermatic treatment 10. DVT prophylaxis ? On Coumadin no additional measures warranted Time spent in the patient's overall evaluation,decision-making process, review of diagnostic data, adjustment of management, discussion with other providers, nursing nursing and ancillary staff involved in patient's care documentation, 35 Minutes Medications at Discharge Home Medications cholecalciferol (vitamin D3) 50 mcg (2,000 unit) capsule 2,000 unit PO DAILY supplement 06/16/19 furosemide 40 mg tablet 40 mg PO DAILY diuretic 06/16/19 benazepril 20 mg tablet 20 mg PO DAILY blood pressure 01/09/21 sertraline 50 mg tablet 50 mg PO DAILY depression 01/09/21 omeprazole 20 mg capsule,delayed release 20 mg PO Q OTHER DAY PRN GERD 10/25/21 rosuvastatin 5 mg tablet (Crestor) 5 mg PO Q OTHER DAY cholesterol #45 tabs 12/25/22 aspirin 81 mg tablet,delayed release (Enteric Coated Aspirin) 81 mg PO DAILY heart #90 tabs 01/11/23 diltiazem HCl 300 mg capsule,extended release 24 hr 300 mg PO DAILY heart #90 caps 04/30/23 potassium chloride 20 mEq tablet,extended release 20 meq PO DAILY low potassium #14 tabs 07/07/23 warfarin 3 mg tablet 3 mg PO QHS blood thinner 07/09/23 ciprofloxacin HCl 500 mg tablet (Cipro) 500 mg PO BID #28 tabs 07/17/23 metronidazole 500 mg tablet 500 mg PO TID 14 days #42 tabs 07/17/23 Hospital Course Summary of Care Provided Minutes Spent on Discharge: 35 Physical Exam Narrative GENERAL: cooperative HEENT: Atraumatic; normocephalic EYES; Anicteric, Normal Conjunctiva NECK; supple, normal thyroid, RESPIRATORY: Diminished to auscultation CARDIOVASCULAR: Regular S1 S2, GI: soft, normoactive bowel sounds, : No Renal angle tenderness; EXTREMITIES: No edema, no clubbing, MUSCULOSKELETAL: no muscle wasting NEURO: Awake; no lateralizing signs. SKIN: No Rash PSYCH; Flat affect Weight / BMI Weight Weight: 130.8 kg Body Mass Index (BMI) 40.2 ABG / Lab / Microbiology Data 07/17/23 06:10 07/17/23 06:10 Laboratory: Laboratory Results - last 24 hr 07/17/23 06:10: WBC 4.1 L, RBC 3.40 L, Hgb 11.6 L, Hct 34.6 L, MCV 101.8 H, MCH 34.1 H, MCHC 33.5, RDW Std Deviation 67.4 H, RDW Coeff of [place] 18.9 H, Plt Count 182, MPV 8.9, Immature Gran % (Auto) 0.500, Neut % (Auto) 74.7 H, Lymph % (Auto)6.6 L, Lane % (Auto) 13.0 H, Eos % (Auto) 4.7, Baso % (Auto) 0.5, Absolute Neuts(auto) 3.0, Absolute Lymphs (auto) 0.27 L, Nucleated RBC % 0, Differential Comment SCANNED, Diff Path Review May foll, Anisocytosis 2+, Microcytosis 1+, Macrocytosis 1+, PT 23.4 H, INR 2.1, Sodium 142, Potassium 3.9, Chloride 111 H, Carbon Dioxide 26.0, Anion Gap 5, BUN 11, Creatinine 0.93, Estim Creat Clear Calc 84.34, Est GFR (MDRD) Af Amer 105, Est GFR (MDRD) Non-Af 87, BUN/CreatinineRatio 11.9, Glucose 99, Calcium 8.6, Phosphorus 2.2 L, Magnesium 2.4 Microbiology: Microbiology 07/16/23 15:00 Stool Enteric Bacteriology - Final D/C Instructions Discharge Diet: No restrictions Discharge Activity: Return to Normal Activity Call your doctor if you observe: Fever of 101 or Higher, Shortness of breath, Fainting spells and Chest pain Meaningful Use Info Meaningful Use Diagnoses (Choose all that apply): None applicable Discharge Plan Admission Admit Date/Time: 07/15/23 19:13 Attending Provider: Sidney Dominguez Primary Care Provider: Jt Membreno Consulting Providers: Estela Kwon; Kevin Veras Discharge Orders/Prescriptions Prescriptions: New ciprofloxacin HCl [Cipro] 500 mg tablet 500 mg PO BID Qty: 28 0RF metronidazole 500 mg tablet 500 mg PO TID 14 Days Qty: 42 0RF Continued benazepril 20 mg tablet 20 mg PO DAILY Patient Comments: TAKE 1 TABLET BY MOUTH EVERY DAY sertraline 50 mg tablet 50 mg PO DAILY potassium chloride 20 mEq tablet extended release 20 meq PO DAILY Qty: 14 0RF cholecalciferol (vitamin D3) 2,000 UNIT capsule 2,000 unit PO DAILY omeprazole 20 mg capsule,delayed release(DR/EC) 20 mg PO Q OTHER DAY PRN (Reason: GERD) warfarin 3 mg tablet 3 mg PO QHS Protocol: Dose Management Condition: Thursday Dose/Route: 0 mg Instruction: 0 tablets Condition: Thursday Dose/Route: 0 mg Instruction: 0 tablets Condition: Thursday Dose/Route: 6 mg Instruction: 2 x 3 mg tablets Condition: Thursday Dose/Route: 6 mg Instruction: 2 x 3 mg tablets Condition: Dose/Route: 6 mg Instruction: 2 x 3 mg tablets Condition: Thursday Dose/Route: 0 mg Instruction: 0 tablets Condition: Thursday Dose/Route: 0 mg Instruction: 0 tablets Protocol Text: Adjustment Start Date: Thursday07/14/23 INR Value: 1.3 INR Date: 07/14/23 Recheck Date: 07/27/23 Rx Instructions: Dose change to 8mg daily: needs 5mg +3mg tabs furosemide 40 mg tablet 40 mg PO DAILY rosuvastatin [Crestor] 5 mg tablet 5 mg PO Q OTHER DAY Qty: 45 3RF aspirin [Enteric Coated Aspirin] 81 mg tablet,delayed release (DR/EC) 81 mg PO DAILY Qty: 90 3RF diltiazem HCl 300 mg capsule,extended release 24hr 300 mg PO DAILY Qty: 90 3RF Referrals / Follow Up: tJ Membreno MD [Primary Care Provider] - Within 2 Weeks Estela Kwon MD [Med Staff - Active Staff] - Within 2 Weeks Disposition Disposition (needs filled in before D/C Order can be placed): Home, Self Care Charges/Coding Visit Charges Inpatient E&M: 82850 Disch Hosp >30min 07/17/23 1006 <Electronically signed by Sidney Dominguez MD> Cosigner Signature (if applicable): CC: Dr. Sindey Dominguez MD; Dr. Jt Membreno MD~ Signed [facility] Work Phone: 1(232) 629-197411-03-2023 Progress note Author Sidney Dominguez [facility] July 17, 2023 10:00am Note Date/Time July 17, 2023 7 :37am [facility] Medical Records Department [address] [place] [address] Progress Note - Hospitalist 07/17/2336 MR#: [id number] Acct: [id number] Name: MIGUE GUNTER Rep #:[id number] : 1960 63 From: Sidney Dominguez MD PCP: Dr. Jt Membreno MD Status:AD M IN Location: [place] [address] Reason for Visit Reason for Visit: Diagnoses Noninfective gastroenteritis and colitis, unspecified (07/15/23) Unspecified abdominal pain (07/15/23) Personal history of other malignant neoplasm of rectum, rectosigmoid junction, and anus (07/15/23) Subjective Subjective Patient seen overall clinical condition improved plan is for patient to be assessed for possible discharge Objective Data Objective Data Vital Signs: Vital Signs Temp Pulse Resp BP Pulse Ox O2 Del Method 98 F 72 16 128/61 H 97 Room Air 07/17/23 03:00 07/17/23 03:00 07/17/23 03:00 07/17/23 03:00 07/17/23 03:00 07/17/23 03:00 Oxygen Delivery Method Room Air Weight: 130.8 kg Body Mass Index (BMI) 40.2 Intake & Output: Intake and Output for Last 24 Hours 07/15/23 07/16/23 07/17/23 23:59 23:59 23:59 Intake Total 789.58 / 1029.58 3077.50 / 3317.50 1256.67 / 1256.67 Balance 789.58 / 1029.58 3077.50 / 3317.50 1256.67 / 1256.67 Lab / Micro Data 07/17/23 06:10 07/17/23 06:10 Labs: Laboratory Results - last 24 hr 07/16/23 06:37: Differential Comment COMMENT, Anisocytosis 1+, PT 20.4 H, INR 1.7 07/17/23 06:10: WBC 4.1 L, RBC 3.40 L, Hgb 11.6 L, Hct 34.6 L, MCV 101.8 H, MCH 34.1 H, MCHC 33.5, RDW Std Deviation 67.4 H, RDW Coeff of [place] 18.9 H, Plt Count 182, MPV 8.9, Immature Gran % (Auto) 0.500, Neut % (Auto) 74.7 H, Lymph % (Auto)6.6 L, Lane % (Auto) 13.0 H, Eos % (Auto) 4.7, Baso % (Auto) 0.5, Absolute Neuts(auto) 3.0, Absolute Lymphs (auto) 0.27 L, Nucleated RBC % 0 Micro: Microbiology 07/16/23 15:00 Stool Enteric Bacteriology - Final Physical Exam Narrative GENERAL: cooperative HEENT: Atraumatic; normocephalic EYES; Anicteric, Normal Conjunctiva NECK; supple, normal thyroid, RESPIRATORY: Diminished to auscultation CARDIOVASCULAR: Regular S1 S2, GI: soft, normoactive bowel sounds, : No Renal angle tenderness; EXTREMITIES: No edema, no clubbing, MUSCULOSKELETAL: no muscle wasting NEURO: Awake; no lateralizing signs. SKIN: No Rash PSYCH; Flat affect Assessment & Plan Assessment/Plan (1) Abdominal pain: PLAN: Plan Patient a 63-year-old gentleman with history of Rectal CA admitted with abdominal pain with associated diarrhea 1. Acute enteritis CT of the abdomen and pelvis obtained on admission demonstrated Suspected enteritis of a loop of distal ileum in the right upper quadrant with a small amount of free fluid suggestive of peritonitis. No abscess or perforation. Sigmoid diverticulosis without diverticulitis. Possible proctitis or rectal mass. Patient admitted to regular nursing floor started on empiric antibiotic therapy with Zosyn with consultation placed to general surgery seen by Dr. Domingo is noted recommendations reviewed ? 07/17/2023: Patient seen symptoms improved plan is for patient to be discharged 2. Recent diagnosis of rectal CA ? Patient has completed radiation therapy started his chemo a week prior to his admission follows with oncology?Dr. Dia outpatient 3. Hypertension - Blood pressure controlled, home medications continued with dose adjustment as needed 4. Dyslipidemia -Patient is on statin therapy, continued at home dose 5. History of previous VTE with PE/DVT ? Patient is on Coumadin which is currently being monitored with daily INR. Patient had apparently received vitamin K on 07/12/2023 when his INR was noted to be 10.8 Coumadin subsequently held. INR on admission was 1.5 Coumadin resumed with subsequent monitoring ordered 6. Class II obesity with BMI 40.2 ? Complicating care weight loss advised 7. GERD ? Patient on PPI 8. Depression ? Patient is on sertraline continue 9. 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 Dermatic treatment 10. DVT prophylaxis ? On Coumadin no additional measures warranted Time spent in the patient's overall evaluation,decision-making process, review of diagnostic data, adjustment of management, discussion with other providers, nursing nursing and ancillary staff involved in patient's care documentation, 35 Minutes Charges/Coding Visit Charges Inpatient E&M: 29953 Subs Hosp L2 07/17/23 1000 <Electronically signed by Sidney Dominguez MD> Cosigner Signature (if applicable): CC: ~ Signed [facility] Work Phone: 1(557) 771-695911-03-2023 Progress note Author Estela Kwon [facility] July 17, 2023 9:35am Note Date/Time July 17, 2023 8 :26am [facility] Medical Records Department [address] [place] [address] Progress Note - Surgery 07/17/2326 MR#: [id number] Acct: [id number] Name: MIGUE GUNTER Rep #:[id number] : 1960 63 From: Estela Todd PCP: Dr. Jt Membreno MD Status:AD M IN Location: [facility] [id number] Subjective Subjective Patient seen and examined during AM rounds. Is found sitting out of bed in the chair. He states that he feels rather well this morning. He denies any significant abdominal pain. He confirms that he has been tolerating his diet. He does state that he is having persistent diarrhea when he has bowel movements. Objective Data Objective Data Vital Signs: Vital Signs Temp Pulse Resp BP Pulse Ox O2 Del Method 98 F 72 16 128/61 H 97 Room Air 07/17/23 03:00 07/17/23 03:00 07/17/23 03:00 07/17/23 03:00 07/17/23 03:00 07/17/23 03:00 Oxygen Delivery Method Room Air Weight: 288 lb 5.834 oz Body Mass Index (BMI) 40.2 Intake & Output: Intake and Output for Last 24 Hours 07/15/23 07/16/23 07/17/23 23:59 23:59 23:59 Intake Total 789.58 / 1029.58 3077.50 / 3317.50 1256.67 / 1256.67 Balance 789.58 / 1029.58 3077.50 / 3317.50 1256.67 / 1256.67 Lab / Micro Data 07/17/23 06:10 07/17/23 06:10 Labs: Laboratory Results - last 24 hr 07/17/23 06:10: WBC 4.1 L, RBC 3.40 L, Hgb 11.6 L, Hct 34.6 L, MCV 101.8 H, MCH 34.1 H, MCHC 33.5, RDW Std Deviation 67.4 H, RDW Coeff of [place] 18.9 H, Plt Count 182, MPV 8.9, Immature Gran % (Auto) 0.500, Neut % (Auto) 74.7 H, Lymph % (Auto)6.6 L, Lane % (Auto) 13.0 H, Eos % (Auto) 4.7, Baso % (Auto) 0.5, Absolute Neuts(auto) 3.0, Absolute Lymphs (auto) 0.27 L, Nucleated RBC % 0, PT 23.4 H, INR 2.1, Sodium 142, Potassium 3.9, Chloride 111 H, Carbon Dioxide 26.0, Anion Gap 5, BUN 11, Creatinine 0.93, Estim Creat Clear Calc 84.34, Est GFR (MDRD) Af [id number], Est GFR (MDRD) Non-Af 87, BUN/Creatinine Ratio 11.9, Glucose 99, Calcium 8.6, Phosphorus 2.2 L, Magnesium 2.4 Micro: Microbiology 07/16/23 15:00 Stool Enteric Bacteriology - Final Physical Exam Const oriented x3 and no apparent distress Resp normal respiratory effort GI GI Narrative: Mildly distended, soft, minimally tender to palpation in the right lower quadrant with deeper palpation Assessment & Plan Assessment/Plan (1) Enteritis: PLAN: Patient with further clinical improvements. Tolerating transitional diet without issue. At this point I believe he is nearing readiness for discharge and outpatient management. At present recommend: Continuation of transitional diet x2 weeks as an outpatient Recommend Cipro/Flagyl for 14 days at discharge Patient was scheduled for a port-a-cath placement with Dr. Boland on 07/20. This procedure well be canceled until patient has improved. Our office will reach outto the patient or his to reschedule his port placement. Above plan has been communicated to patient's primary hospitalist, Dr. Dominguez Charges/Coding Visit Charges Inpatient E&M: 18407 Subs Hosp L2 07/17/23 0935 <Electronically signed by Estela Kwon MD> Cosigner Signature (if applicable): CC: ~ Signed [facility] Work Phone: 1(964) 900-415811-02-2023 Progress note Author Karyna Nagel [facility] July 16, 2023 1:39pm Note Date/Time July 16, 2023 1 1:33am [facility] Medical Records Department [address] [place] [address] Progress Note - Surgery 07/16/23 1131 MR#: [id number] Acct: [id number] Name: MIGUE GUNTER Rep #:[id number] : 1960 63 From: Karyna LE PA-C PCP: Dr. Jt Membreno MD Status:AD M IN Location: [place] [id number] Subjective Subjective Patient evaluated resting comfortably in bed. Patient notes his abdominal discomfort is improved. He denies nausea, vomiting, fever. He notes his stools are starting to firm up. Objective Data Objective Data Vital Signs: Vital Signs Temp Pulse Resp BP Pulse Ox O2 Del Method 98 F 73 15 130/67 H 96 Room Air 07/16/23 08:00 07/16/23 08:00 07/16/23 08:00 07/16/23 08:00 07/16/23 08:00 07/16/23 08:00 Oxygen Delivery Method Room Air Weight: 288 lb 5.834 oz Body Mass Index (BMI) 40.2 Intake & Output: Intake and Output for Last 24 Hours 07/14/23 07/15/23 07/16/23 23:59 23:59 23:59 Intake Total 789.58 / 1029.58 1275.42 / 1275.42 Balance 789.58 / 1029.58 1275.42 / 1275.42 Lab / Micro Data 07/16/23 06:37 07/16/23 06:37 Labs: Laboratory Results - last 24 hr 07/15/23 15:50: WBC 7.8, RBC 3.75 L, Hgb 12.3 L, Hct 36.9 L, MCV 98.4 H, MCH 32.8 H, MCHC 33.3, RDW Std Deviation 64.7 H, RDW Coeff of [place] 18.8 H, Plt Count 204, MPV 9.6, Immature Gran % (Auto) 0.600, Neut % (Auto) 80.7 H, Lymph % (Auto)5.4 L, Lane % (Auto) 11.1 H, Eos % (Auto) 1.9, Baso % (Auto) 0.3, Absolute Neuts(auto) 6.3, Absolute Lymphs (auto) 0.42 L, Nucleated RBC % 0, Differential Comment SCANNED, PT 18.3 H, INR 1.5, Sodium 141, Potassium 3.7, Chloride 108 H, Carbon Dioxide 25.0, Anion Gap 8, BUN 20 H, Creatinine 0.96, Estim Creat Clear Calc 81.71, Est GFR (MDRD) Af Amer 101, Est GFR (MDRD) Non-Af 83, BUN/CreatinineRatio 20.8 H, Glucose 114 H, Calcium 8.8, Total Bilirubin 0.90, AST 21, ALT 23, Alkaline Phosphatase 76, Total Protein 6.3 L, Albumin 3.1 L, Globulin 3.2, Albumin/Globulin Ratio 1.0, Lipase 26 07/15/23 16:00: Lactic Acid 1.4 07/15/23 17:10: Urine Color Yellow, Urine Clarity Clear, Urine pH 6.0, Ur Specific [place] 1.015, Urine Protein 15 H, Urine Glucose (UA) Normal, Urine Ketones Negative, Urine Occult Blood Negative, Urine Nitrite Negative, Urine Bilirubin Negative, Urine Urobilinogen 4 H, Ur Leukocyte Esterase 25 H, Urine RBC 0 SEEN, Urine WBC 0 SEEN, Ur Squamous Epith Cells 0-5 SEEN, Calcium Oxalate Crystal 1+, Urine Bacteria 0 SEEN, Urine Mucus 0 SEEN 07/16/23 06:37: WBC 6.0, RBC 3.46 L, Hgb 11.3 L, Hct 35.0 L, MCV 101.2 H, MCH 32.7 H, MCHC 32.3, RDW Std Deviation 67.7 H, RDW Coeff of [place] 19.0 H, Plt Count 194, MPV 8.9, Immature Gran % (Auto) 0.700, Neut % (Auto) 78.6 H, Lymph % (Auto)5.2 L, Lane % (Auto) 12.0 H, Eos % (Auto) 3.0, Baso % (Auto) 0.5, Absolute Neuts(auto) 4.7, Absolute Lymphs (auto) 0.31 L, Nucleated RBC % 0, Differential Comment COMMENT, Anisocytosis 1+, PT 20.4 H, INR 1.7, Sodium 141, Potassium 3.9,Chloride 112 H, Carbon Dioxide 23.0, Anion Gap 6, BUN 16, Creatinine 0.92, EstimCreat Clear Calc 85.26, Est GFR (MDRD) Af Amer 106, Est GFR (MDRD) Non-Af 88, BUN/Creatinine Ratio 17.4, Glucose 103, Calcium 8.3 L Radiography Diagnostic Testing: Radiology Impression Abdomen/Pelvis CT 07/15/23 15:21 IMPRESSION: 1. Suspect enteritis of a loop of distal ileum in the right upper quadrant with a small amount of free fluid suggestive of peritonitis. No abscess or perforation. 2. Sigmoid diverticulosis without diverticulitis. 3. Possible proctitis or rectal mass. Clinical correlation is recommended. 4. Small right inguinal hernia containing fat and fluid. Electronically Signed: Leon Son MD at 17:35 EDT , Physical Exam GI GI Narrative: Abdomen- minimal tenderness in the right abdomen. Positive bowel sounds Assessment & Plan Assessment/Plan (1) Enteritis: PLAN: I am following this patient in conjunction with Dr. Kwon. Patient seems to be improving well Increase patient's diet to full liquids. If he tolerates full liquids, I would recommend increase to transitional diet Continue transitional diet at discharge for 2 weeks Recommend Cipro/Flagyl for 14 days at discharge Patient was scheduled for a port-a-cath placement with Dr. Boland on 07/20. This procedure well be canceled until patient has improved. Our office will reach outto the patient or his to reschedule his port placement. We will continue to monitor this patient Charges/Coding Visit Charges Inpatient E&M: 41294 Subs Hosp L1 07/16/23 1339 <Electronically signed by Karyna LE PA-C> Cosigner Signature (if applicable): CC: ~ Signed [facility] Work Phone: 1(767) 910-106511-02-2023 Progress note Author Sidney Dominguez [facility] July 16, 2023 10:40am Note Date/Time July 16, 2023 1 0:39am [facility] Medical Records Department [address] [place] [address] Progress Note - Hospitalist 07/16/23 1031 MR#: [id number] Acct: [id number] Name: MIGUE GUNTER Rep #:[id number] : 1960 63 From: Sidney Dominguez MD PCP: Dr. Jt Membreno MD Status:AD M IN Location: [place] [address] Reason for Visit Reason for Visit: Diagnoses Noninfective gastroenteritis and colitis, unspecified (07/15/23) Unspecified abdominal pain (07/15/23) Personal history of other malignant neoplasm of rectum, rectosigmoid junction, and anus (07/15/23) Subjective Subjective Patient a 63-year-old gentleman with history of rectal CA admitted with abdominal pain with associated diarrhea Objective Data Objective Data Vital Signs: Vital Signs Temp Pulse Resp BP Pulse Ox O2 Del Method 98 F 73 15 130/67 H 96 Room Air 07/16/23 08:00 07/16/23 08:00 07/16/23 08:00 07/16/23 08:00 07/16/23 08:00 07/16/23 08:00 Oxygen Delivery Method Room Air Weight: 130.8 kg Body Mass Index (BMI) 40.2 Intake & Output: Intake and Output for Last 24 Hours 07/14/23 07/15/23 07/16/23 23:59 23:59 23:59 Intake Total 789.58 / 1029.58 1275.42 / 1275.42 Balance 789.58 / 1029.58 1275.42 / 1275.42 Lab / Micro Data 07/16/23 06:37 07/16/23 06:37 Labs: Laboratory Results - last 24 hr 07/15/23 15:50: WBC 7.8, RBC 3.75 L, Hgb 12.3 L, Hct 36.9 L, MCV 98.4 H, MCH 32.8 H, MCHC 33.3, RDW Std Deviation 64.7 H, RDW Coeff of [place] 18.8 H, Plt Count 204, MPV 9.6, Immature Gran % (Auto) 0.600, Neut % (Auto) 80.7 H, Lymph % (Auto)5.4 L, Lane % (Auto) 11.1 H, Eos % (Auto) 1.9, Baso % (Auto) 0.3, Absolute Neuts(auto) 6.3, Absolute Lymphs (auto) 0.42 L, Nucleated RBC % 0, Differential Comment SCANNED, PT 18.3 H, INR 1.5, Sodium 141, Potassium 3.7, Chloride 108 H, Carbon Dioxide 25.0, Anion Gap 8, BUN 20 H, Creatinine 0.96, Estim Creat Clear Calc 81.71, Est GFR (MDRD) Af Amer 101, Est GFR (MDRD) Non-Af 83, BUN/CreatinineRatio 20.8 H, Glucose 114 H, Calcium 8.8, Total Bilirubin 0.90, AST 21, ALT 23, Alkaline Phosphatase 76, Total Protein 6.3 L, Albumin 3.1 L, Globulin 3.2, Albumin/Globulin Ratio 1.0, Lipase 26 07/15/23 16:00: Lactic Acid 1.4 07/15/23 17:10: Urine Color Yellow, Urine Clarity Clear, Urine pH 6.0, Ur Specific [place] 1.015, Urine Protein 15 H, Urine Glucose (UA) Normal, Urine Ketones Negative, Urine Occult Blood Negative, Urine Nitrite Negative, Urine Bilirubin Negative, Urine Urobilinogen 4 H, Ur Leukocyte Esterase 25 H, Urine RBC 0 SEEN, Urine WBC 0 SEEN, Ur Squamous Epith Cells 0-5 SEEN, Calcium Oxalate Crystal 1+, Urine Bacteria 0 SEEN, Urine Mucus 0 SEEN 07/16/23 06:37: WBC 6.0, RBC 3.46 L, Hgb 11.3 L, Hct 35.0 L, MCV 101.2 H, MCH 32.7 H, MCHC 32.3, RDW Std Deviation 67.7 H, RDW Coeff of [place] 19.0 H, Plt Count 194, MPV 8.9, Immature Gran % (Auto) 0.700, Neut % (Auto) 78.6 H, Lymph % (Auto)5.2 L, Lane % (Auto) 12.0 H, Eos % (Auto) 3.0, Baso % (Auto) 0.5, Absolute Neuts(auto) 4.7, Absolute Lymphs (auto) 0.31 L, Nucleated RBC % 0, Differential Comment COMMENT, Anisocytosis 1+, PT 20.4 H, INR 1.7, Sodium 141, Potassium 3.9,Chloride 112 H, Carbon Dioxide 23.0, Anion Gap 6, BUN 16, Creatinine 0.92, EstimCreat Clear Calc 85.26, Est GFR (MDRD) Af Amer 106, Est GFR (MDRD) Non-Af 88, BUN/Creatinine Ratio 17.4, Glucose 103, Calcium 8.3 L Radiography Diagnostic Testing: Radiology Impression Abdomen/Pelvis CT 07/15/23 15:21 IMPRESSION: 1. Suspect enteritis of a loop of distal ileum in the right upper quadrant with a small amount of free fluid suggestive of peritonitis. No abscess or perforation. 2. Sigmoid diverticulosis without diverticulitis. 3. Possible proctitis or rectal mass. Clinical correlation is recommended. 4. Small right inguinal hernia containing fat and fluid. Electronically Signed: Leon Son MD at 17:35 EDT , Physical Exam Narrative GENERAL: cooperative HEENT: Atraumatic; normocephalic EYES; Anicteric, Normal Conjunctiva NECK; supple, normal thyroid, RESPIRATORY: Diminished to auscultation CARDIOVASCULAR: Regular S1 S2, GI: soft, normoactive bowel sounds, : No Renal angle tenderness; EXTREMITIES: No edema, no clubbing, MUSCULOSKELETAL: no muscle wasting NEURO: Awake; no lateralizing signs. SKIN: No Rash PSYCH; Flat affect Assessment & Plan Assessment/Plan (1) Abdominal pain: PLAN: Plan Patient a 63-year-old gentleman with history of Rectal CA admitted with abdominal pain with associated diarrhea 1. Acute enteritis CT of the abdomen and pelvis obtained on admission demonstrated Suspected enteritis of a loop of distal ileum in the right upper quadrant with a small amount of free fluid suggestive of peritonitis. No abscess or perforation. Sigmoid diverticulosis without diverticulitis. Possible proctitis or rectal mass. Patient admitted to regular nursing floor started on empiric antibiotic therapy with Zosyn with consultation placed to general surgery seen by Dr. Domingo is noted recommendations reviewed 2. Recent diagnosis of rectal CA ? Patient has completed radiation therapy started his chemo a week prior to his admission follows with oncology?Dr. Dia outpatient 3. Hypertension - Blood pressure controlled, home medications continued with dose adjustment as needed 4. Dyslipidemia -Patient is on statin therapy, continued at home dose 5. History of previous VTE with PE/DVT ? Patient is on Coumadin which is currently being monitored with daily INR. Patient had apparently received vitamin K on 07/12/2023 when his INR was noted to be 10.8 Coumadin subsequently held. INR on admission was 1.5 Coumadin resumed with subsequent monitoring ordered 6. Class II obesity with BMI 40.2 ? Complicating care weight loss advised 7. GERD ? Patient on PPI 8. Depression ? Patient is on sertraline continue 9. 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 Dermatic treatment 10. DVT prophylaxis ? On Coumadin no additional measures warranted Time spent in the patient's overall evaluation,decision-making process, review of diagnostic data, adjustment of management, discussion with other providers, nursing nursing and ancillary staff involved in patient's care documentation, 52Min[employer] Advance planning; did discuss with the patient and family regarding advanced directives as well as CODE STATUS. Did explain the various scenarios involved (FULL CODE, DNR CCA, DNR CCA with no intubation, and DNR CC and what each meant) patient elected full code with CPR and intubation if warranted. Order was placed. Time spent on discussion 18 minutes. Charges/Coding Visit Charges Inpatient E&M: 32606 Subs Hosp L3 Procedures Hospitalists Procedures: 55221 Advncd Care Plan 30 Min 07/16/23 1040 <Electronically signed by Sidney Dominguez MD> Cosigner Signature (if applicable): CC: ~ Signed [facility] Work Phone: 1(573) 209-743911-02-2023 Discharge summary Author Ildefonso Rockwell [facility] July 15, 2023 11:16pm Note Date/Time July 15, 2023 3 :23pm [facility] Medical Records Department [address] [place] [address] Emergency Department Summary 07/15/23 MR#: [id number] Acct: [id number] Name: MIGUE GUNTER Rep #:[id number] : 1960 63 From: Ildefonso Rockwell DO PCP: Dr. Jt Membreno MD Status:AD M IN Location: [place] [address] HPI HPI - GI History of Present Illness Chief Complaint: Abd Pain Detail of Chief Complaint: Abdominal pain Informant: patient Narrative Narrative: Patient presents to the emergency department with complaint of abdominal pain that started yesterday. Patient states the pain came on pretty quickly. He hashad no fevers or chills or sweats. Pain mostly left-sided. Patient states thata little over a week ago he finished radiation chemotherapy for history of rectal cancer. Patient on Coumadin for history of A-fib. He denies urinary symptoms. He has had prior history of kidney stone and diverticulitis. Patienthas had a appendectomy. Patient denies any blood in his stool or black tarry stools. He has had some diarrhea. PFSH [facility] Medical History Abdominal pain Acute cough Afib Arthritis Asthma Benign essential hypertension BiPAP (biphasic positive airway pressure) dependence Cancer Cardiology follow-up encounter COVID-19 DVT (deep venous thrombosis) Dyspnea on exertion Edema Encounter for education Gastric reflux Gastroesophageal reflux disease High cholesterol History of atrial fibrillation History of echocardiogram History of edema History of steroid therapy History of venous thromboembolism Hyperlipidemia Hypertension Kidney stone prison current use 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 Non-smoker CORRINA (obstructive sleep apnea) Pulmonary embolism (06/10/18) Rectal cancer Rectal mass Sinusitis Thyroid disease Weight gain with edema Home Medications cholecalciferol (vitamin D3) 50 mcg (2,000 unit) capsule 2,000 unit PO DAILY supplement 06/16/19 [History Last Taken 06/16/19] furosemide 40 mg tablet 40 mg PO DAILY 06/16/19 [History Last Taken 06/16/19] benazepril 20 mg tablet 20 mg PO DAILY 01/09/21 [History Last Taken 05/05/23] sertraline 50 mg tablet 50 mg PO DAILY 01/09/21 [History Last Taken Unknown] omeprazole 20 mg capsule,delayed release 20 mg PO Q OTHER DAY PRN GERD 10/25/21 [History Last Taken Unknown] rosuvastatin 5 mg tablet (Crestor) 5 mg PO Q OTHER DAY #45 tabs 12/25/22 [Rx Last Taken Unknown] aspirin 81 mg tablet,delayed release (Enteric Coated Aspirin) 81 mg PO DAILY #90tabs 01/11/23 [Rx Last Taken 05/04/23] diltiazem HCl 300 mg capsule,extended release 24 hr 300 mg PO DAILY #90 caps 04/30/23 [Rx Last Taken 05/05/23] ondansetron 8 mg disintegrating tablet 8 mg PO Q12H PRN nausea and vomiting #30 tabs 05/25/23 [Rx Last Taken Unknown] diclofenac sodium 1 % topical gel 2 g topical BID #100 grams 05/28/23 [Rx Last Taken Unknown] prochlorperazine maleate 10 mg tablet 10 mg PO Q6H PRN nausea and vomiting #30 tabs 05/28/23 [Rx Last Taken Unknown] potassium chloride 20 mEq tablet,extended release 20 meq PO DAILY #14 tabs 07/07/23 [Rx Last Taken Unknown] hydrocortisone acetate 25 mg rectal suppository 25 mg NH BID PRN itching 07/09/23 [History Last Taken Unknown] warfarin 3 mg tablet 3 mg PO QHS 07/09/23 [History Last Taken Unknown] warfarin 5 mg tablet 5 mg PO QHS 07/09/23 [History Last Taken Unknown] Allergy/AdvReac Type Severity Reaction Status Date / Time apixaban [From Eliquis] AdvReac Severe Pt formed Verified 07/15/23 15:04 PE's in spite of taking routinely simvastatin AdvReac Severe Myalgias Verified 07/15/23 15:04 doxycycline AdvReac Intermediate GI upset Verified 07/15/23 15:04 Family History Mother CAD (coronary artery disease) Diabetes Hypertension Hyperlipidemia Heart disease Father CVA (cerebral vascular accident) Surgical History History of appendectomy History of appendectomy History of cardiac catheterization History of colonoscopy (~06/2016) History of hip surgery History of left heart catheterization (10/21/18) History of left inguinal hernia repair Social History Smoking Status: Never smoker alcohol intake: never substance use type: does not use caffeine: Yes Type: carbonated beverages Number of servings: 1 ROS ROS ED Review of Systems ROS Unobtainable: other Constitutional Constitutional ED: Reports lethargy; Denies chills, fever(s), sweats or weight loss Eyes Eyes: Denies blurry vision, change in vision or diplopia ENT ENT ED: Denies rhinorrhea or sore throat Cardiovascular Cardiovascular: Denies chest pain, orthopnea or racing heartbeat Respiratory/Chest Respiratory/Chest: Denies cough, dyspnea, dyspnea on exertion, orthopnea or sputum Gastrointestinal Gastrointestinal: Reports abdominal pain and diarrhea; Denies nausea or vomiting Genitourinary Genitourinary ED: Denies dysuria, hematuria or urinary frequency Musculoskeletal Musculoskeletal: Denies arthralgias, back pain, myalgias or neck pain Integumentary Denies abscess, Abrasions or rash Neurologic Neurologic: Denies headache(s) or weakness Psychiatric Psychiatric: Denies anxiety, depression or suicidal thoughts Endocrine Endocrinology: Denies polydipsia, polyphagia or polyuria Hematologic/Lymphatic Hematologic/Lymphatic: Denies easy bleeding, easy bruising or lymphadenopathy Allergic/Immunologic Allergic/Immunologic ED: Denies mouth swelling, tongue swelling or urticaria EXAM Physical Exam Const Vital Signs: 07/15/23 15:02 07/15/23 16:18 07/15/23 16:18 Temperature 96.2 F L 98.2 F Temperature Source Temporal Oral Pulse Rate 90 82 81 Respiratory Rate 18 18 18 Blood Pressure 126/69 H 124/57 H 124/57 H Blood Pressure Mean 88 79 79 Pulse Ox 96 96 95 Oxygen Delivery Method Room Air Room Air Room Air Positive well nourished and well developed General Appearance ED: well developed and NAD HEENT Reports TM's clear and moist mucous membranes normocephalic and atraumatic; Negative for trauma or tenderness Tympanic Membrane ED: Yes TM's clear Eyes PERRL and EOMs intact bilaterally General Eye ED: Negative for pale conjunctiva or scleral icterus Neck no lymphadenopathy, supple and no JVD General: Negative for tenderness Chest Wall inspection of chest normal and palpation of chest normal Chest: Negative for tenderness Resp normal respiratory effort and clear to auscultation bilaterally Effort and Inspection: Negative for respiratory distress or pain with movement Auscultation: Negative for rhonchi, wheezes or diminished lung sounds Cardio regular rate, regular rhythm, S1 normal heart sound, S2 normal heart sound and no murmurs Peripheral Pulses: pulses 2+ throughout GI normal to inspection, nondistended, normoactive bowel sounds, soft to palpation,non-distended and no masses GI Narrative: Tenderness palpation over left lower quadrant with some guarding. There is no rebound, rigidity, or. Signs. No mass palpated. Back/Spine no CVA tenderness and no thoracic nor lumbar tenderness Extremity normal to inspection General Extremety ED: Negative for edema General Extremity: Negative for edema Neuro oriented x3, CN's II-XII intact bilaterally, no sensory deficits noted and gait normal Sensorium / Orientation: awake, alert, oriented to person, oriented to place andoriented to time Motor Exam: strength 5/5 throughout and strength abnormal Psych mental status grossly normal Skin no rashes or lesions noted and no wounds MDM MDM MDM Narrative Medical decision making narrative: Patient presents with left-sided abdominal pain as her yesterday. In the differential would be kidney stone versus diverticulitis versus bowel obstruction or bowel perforation. IV line established. CBC with differential obtained showed a white count 7.8 with hemoglobin of 12 and platelet count of 204. Chemistries unremarkable. Lactate was normal at 1.4. LFTs were unremarkable. Lipase normal at 26. Urinalysis unremarkable for action. CT scan the pelvis with IV contrast showed an area in the right upper quadrant of active enteritis. Patient also noted to have a mass versus proctitis in the rectum and he does certainly have a history of a rectal mass. No other acute process noted. Patient was medicated with morphine and Zofran initially and required a second dose of morphine. At this point etiology of his pain is unclear. We will discuss case with general surgeon on-call. I did discuss casewith Dr. Kwon who postulated the enteritis and peritonitis may be related either to chemo or radiation. Recommended admission for IV fluids and antibiotics. Will discuss case with hospitalist to evaluate patient for admission. Lab Data Attestation: I reviewed the patient's lab results. Labs: Laboratory Results - last 24 hr 07/15/23 07/15/23 07/15/23 15:50 16:00 17:10 WBC 7.8 RBC 3.75 L Hgb 12.3 L Hct 36.9 L MCV 98.4 H MCH 32.8 H MCHC 33.3 RDW Std Deviation 64.7 H RDW Coeff of [place] 18.8 H Plt Count 204 MPV 9.6 Immature Gran % (Auto) 0.600 Neut % (Auto) 80.7 H Lymph % (Auto) 5.[address] % (Auto) 11.1 H Eos % (Auto) 1.9 Baso % (Auto) 0.3 Absolute Neuts (auto) 6.3 Absolute Lymphs (auto) 0.42 L Nucleated RBC % 0 Differential Comment SCANNED PT 18.3 H INR 1.5 Sodium 141 Potassium 3.7 Chloride 108 H Carbon Dioxide 25.0 Anion Gap 8 BUN 20 H Creatinine 0.96 Estim Creat Clear Calc 81.71 Est GFR (MDRD) Af Amer 101 Est GFR (MDRD) Non-Af 83 BUN/Creatinine Ratio 20.8 H Glucose 114 H Lactic Acid 1.4 Calcium 8.8 Total Bilirubin 0.90 AST 21 ALT 23 Alkaline Phosphatase 76 Total Protein 6.3 L Albumin 3.1 L Globulin 3.2 Albumin/Globulin Ratio 1.0 Lipase 26 Urine Color Yellow Urine Clarity Clear Urine pH 6.0 Ur Specific [place] 1.015 Urine Protein 15 H Urine Glucose (UA) Normal Urine Ketones Negative Urine Occult Blood Negative Urine Nitrite Negative Urine Bilirubin Negative Urine Urobilinogen 4 H Ur Leukocyte Esterase 25 H Urine RBC 0 SEEN Urine WBC 0 SEEN Ur Squamous Epith Cells 0-5 SEEN Calcium Oxalate Crystal 1+ Urine Bacteria 0 SEEN Urine Mucus 0 SEEN Radiography Diagnostic Testing: Clinical Impression(s) from Imaging Studies Abdomen/Pelvis CT 07/15/23 15:21 IMPRESSION: 1. Suspect enteritis of a loop of distal ileum in the right upper quadrant with a small amount of free fluid suggestive of peritonitis. No abscess or perforation. 2. Sigmoid diverticulosis without diverticulitis. 3. Possible proctitis or rectal mass. Clinical correlation is recommended. 4. Small right inguinal hernia containing fat and fluid. Electronically Signed: Leon Son MD at 17:35 EDT , Discharge Plan Triage Chief Complaint: Abd Pain ED Provider: Ildefonso Rockwell Dx/Rx/DC Orders Clinical Impression: History of rectal cancer, Enteritis, Abdominal pain Prescriptions: No Action benazepril 20 mg tablet 20 mg PO DAILY Patient Comments: TAKE 1 TABLET BY MOUTH EVERY DAY sertraline 50 mg tablet 50 mg PO DAILY ondansetron 8 mg tablet,disintegrating 8 mg PO Q12H PRN (Reason: nausea and vomiting) Qty: 30 0RF prochlorperazine maleate 10 mg tablet 10 mg PO Q6H PRN (Reason: nausea and vomiting) Qty: 30 2RF diclofenac sodium 1 % gel 2 g topical BID Qty: 100 2RF Rx Instructions: apply to hands and feet twice daily potassium chloride 20 mEq tablet extended release 20 meq PO DAILY Qty: 14 0RF cholecalciferol (vitamin D3) 2,000 UNIT capsule 2,000 unit PO DAILY omeprazole 20 mg capsule,delayed release(DR/EC) 20 mg PO Q OTHER DAY PRN (Reason: GERD) hydrocortisone acetate 25 mg suppository 25 mg NH BID PRN (Reason: itching) Rx Instructions: rectal insertion twice per day prn warfarin 3 mg tablet 3 mg PO QHS Protocol: Dose Management Condition: Thursday Dose/Route: 0 mg Instruction: 0 tablets Condition: Thursday Dose/Route: 0 mg Instruction: 0 tablets Condition: Thursday Dose/Route: 6 mg Instruction: 2 x 3 mg tablets Condition: Thursday Dose/Route: 6 mg Instruction: 2 x 3 mg tablets Condition: Dose/Route: 6 mg Instruction: 2 x 3 mg tablets Condition: Thursday Dose/Route: 0 mg Instruction: 0 tablets Condition: Thursday Dose/Route: 0 mg Instruction: 0 tablets Protocol Text: Adjustment Start Date: Thursday07/14/23 INR Value: 1.3 INR Date: 07/14/23 Recheck Date: 07/27/23 Patient Comments: STOPPING 2 DAYS BEFORE SCOPE- on hold Rx Instructions: Dose change to 8mg daily: needs 5mg +3mg tabs warfarin 5 mg tablet 5 mg PO QHS Protocol: Dose Management Condition: Thursday Dose/Route: 0 mg Instruction: 0 tablets Condition: Thursday Dose/Route: 0 mg Instruction: 0 tablets Condition: Thursday Dose/Route: 6 mg Instruction: 2 x 3 mg tablets Condition: Thursday Dose/Route: 6 mg Instruction: 2 x 3 mg tablets Condition: Dose/Route: 6 mg Instruction: 2 x 3 mg tablets Condition: Thursday Dose/Route: 0 mg Instruction: 0 tablets Condition: Thursday Dose/Route: 0 mg Instruction: 0 tablets Protocol Text: Adjustment Start Date: Thursday07/14/23 INR Value: 1.3 INR Date: 07/14/23 Recheck Date: 07/27/23 Patient Comments: STOPPING 2 DAYS BEFORE SCOPE- on hold Rx Instructions: Dose change to 8mg daily so needs 5mg + 3mg tabs furosemide 40 mg tablet 40 mg PO DAILY rosuvastatin [Crestor] 5 mg tablet 5 mg PO Q OTHER DAY Qty: 45 3RF aspirin [Enteric Coated Aspirin] 81 mg tablet,delayed release (DR/EC) 81 mg PO DAILY Qty: 90 3RF diltiazem HCl 300 mg capsule,extended release 24hr 300 mg PO DAILY Qty: 90 3RF Primary Care Provider: Jt Membreno Referrals: Jt Membreno MD [Primary Care Provider] - Disposition Disposition: Acute Care Hospital [facility] What to do if you have Problems For any increased pain, shortness of breath, bleeding, nausea or vomiting, chestpain, or any unexpected problems, contact your Primary Care Provider. Call [facility] ([phone]) or report to the closest Emergency Room. Call 911 if necessary. 07/15/232315 <Electronically signed by Ildefonso Rockwell DO> Cosigner Signature (if applicable): CC: Dr. Jt Membreno MD ~ Signed [facility] Work Phone: [phone] 182-946211-01-2023 Consult note Author Estela Kwon [facility] July 15, 2023 8:51pm Note Date/Time July 15, 2023 8 :51pm [facility] Medical Records Department [address] [place] [address] Consultation - Surgical 07/15/232014 MR#: [id number] Acct: [id number] Name: MIGUE GUNTER Rep #:[id number] : 1960 63 From: Estela Todd PCP: Dr. Jt Membreno MD Status:AD M IN [facility] Assessment & Plan Assessment/Plan (1) Enteritis: PLAN: This is a 63-year-old male who is evaluated for acute onset abdominal painand CT imaging that shows evidence of terminal ileitis. Given patient's recent completion of both oral chemotherapy with Xeloda and radiation his presentation is concerning for possible typhlitis (but not neutropenic enterocolitis) versus radiation enteritis. His exam is reassuring and he does report spontaneous improvement of his abdominal discomfort. Therefore I have recommended conservative management with bowel rest (patient okay for clear liquids) and IV antibiotic therapy. We will continue to trend serial abdominal exams. For now recommend: ? Clear liquid diet with IV fluid support ? Empiric IV antibiotics with Zosyn ? Consider stool sample ? AM CBC ? Trend abdominal exams (2) History of rectal cancer: HPI Consult Data Date of Consult: 07/15/23 HPI Narrative Reason for Consultation: Enteritis HPI Narrative: MIGUE GUNTER, is a 63 M who presents to [facility] with complaints of acute onset abdominal pain that began yesterday following a visit with general surgery for consideration of port placement. Patient is known to the general surgery service after a colonoscopy with Dr. Alon Boland identifieda rectal mass on 05/05/2023. Patient was referred to the [facility] where patient is now under the care of Dr. Ernesto Aguiar for consideration of tumor resection. Patient reports that it has been approximately 1 week since his completion of neoadjuvant chemoradiation with Xeloda. He states that his bowelshad been rather loose until yesterday when they were about as normal as they ever were yesterday. Mr. Gnuter describes migratory pain that begins in his right lower abdomen and moved to his left lower abdomen. This pain was shortly followed by return of looser stools. He states that the pain was particularly bad yesterday and improved today, but due to its persistence decided to seek evaluation. ER work-up is notable for CBC that shows normal WBC and normal neutrophil count. CT imaging of the abdomen pelvis shows inflammatory change of the ileum consistent with diagnosis of enteritis and some mild free fluid which radiology read as indicating possible peritonitis. [facility] Medical History Abdominal pain Acute cough Afib Arthritis Asthma Benign essential hypertension BiPAP (biphasic positive airway pressure) dependence Cancer Cardiology follow-up encounter COVID-19 DVT (deep venous thrombosis) Dyspnea on exertion Edema Encounter for education Gastric reflux Gastroesophageal reflux disease High cholesterol History of atrial fibrillation History of echocardiogram History of edema History of steroid therapy History of venous thromboembolism Hyperlipidemia Hypertension [facility] current use 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 Non-smoker CORRINA (obstructive sleep apnea) Pulmonary embolism (06/10/18) Rectal cancer Rectal mass Sinusitis Thyroid disease Weight gain with edema Home Medications cholecalciferol (vitamin D3) 50 mcg (2,000 unit) capsule 2,000 unit PO DAILY supplement 06/16/19 [History Last Taken 06/16/19] furosemide 40 mg tablet 40 mg PO DAILY diuretic 06/16/19 [History Last Taken 06/16/19] benazepril 20 mg tablet 20 mg PO DAILY blood pressure 01/09/21 [History Last Taken 05/05/23] sertraline 50 mg tablet 50 mg PO DAILY depression 01/09/21 [History Last Taken Unknown] omeprazole 20 mg capsule,delayed release 20 mg PO Q OTHER DAY PRN GERD 10/25/21 [History Last Taken Unknown] rosuvastatin 5 mg tablet (Crestor) 5 mg PO Q OTHER DAY cholesterol #45 tabs 12/25/22 [Rx Last Taken Unknown] aspirin 81 mg tablet,delayed release (Enteric Coated Aspirin) 81 mg PO DAILY heart #90 tabs 01/11/23 [Rx Last Taken 05/04/23] diltiazem HCl 300 mg capsule,extended release 24 hr 300 mg PO DAILY heart #90 caps 04/30/23 [Rx Last Taken 05/05/23] potassium chloride 20 mEq tablet,extended release 20 meq PO DAILY low potassium #14 tabs 07/07/23 [Rx Last Taken Unknown] warfarin 3 mg tablet 3 mg PO QHS blood thinner 07/09/23 [History Last Taken Unknown] Allergy/AdvReac Type Severity Reaction Status Date / Time apixaban [From [employer]] AdvReac Severe Pt formed Verified 07/15/23 15:04 PE's in spite of taking routinely simvastatin AdvReac Severe Myalgias Verified 07/15/23 15:04 doxycycline AdvReac Intermediate GI upset Verified 07/15/23 15:04 Family History Mother CAD (coronary artery disease) Diabetes Hypertension Hyperlipidemia Heart disease Father CVA (cerebral vascular accident) Surgical History History of appendectomy History of appendectomy History of cardiac catheterization History of colonoscopy (~06/2016) History of hip surgery History of left heart catheterization (10/21/18) History of left inguinal hernia repair Social History Smoking Status: Never smoker alcohol intake: never substance use type: does not use caffeine: Yes Type: carbonated beverages Number of servings: 1 Physical Exam Const alert, oriented x3 and no apparent distress General Appearance: cooperative Nutritional Appearance: obese Resp normal respiratory effort GI GI Narrative: Midline scar is well-healed, mildly distended, soft, mildly tender to palpation in the right lower quadrant (rated a 4 out of 10) Lab / Micro Data 07/15/23 15:50 07/15/23 15:50 Labs: Laboratory Results - last 24 hr 07/15/23 15:50: WBC 7.8, RBC 3.75 L, Hgb 12.3 L, Hct 36.9 L, MCV 98.4 H, MCH 32.8 H, MCHC 33.3, RDW Std Deviation 64.7 H, RDW Coeff of [place] 18.8 H, Plt Count 204, MPV 9.6, Immature Gran % (Auto) 0.600, Neut % (Auto) 80.7 H, Lymph % (Auto)5.4 L, Lane % (Auto) 11.1 H, Eos % (Auto) 1.9, Baso % (Auto) 0.3, Absolute Neuts(auto) 6.3, Absolute Lymphs (auto) 0.42 L, Nucleated RBC % 0, Differential Comment SCANNED, PT 18.3 H, INR 1.5, Sodium 141, Potassium 3.7, Chloride 108 H, Carbon Dioxide 25.0, Anion Gap 8, BUN 20 H, Creatinine 0.96, Estim Creat Clear Calc 81.71, Est GFR (MDRD) Af Amer 101, Est GFR (MDRD) Non-Af 83, BUN/CreatinineRatio 20.8 H, Glucose 114 H, Calcium 8.8, Total Bilirubin 0.90, AST 21, ALT 23, Alkaline Phosphatase 76, Total Protein 6.3 L, Albumin 3.1 L, Globulin 3.2, Albumin/Globulin Ratio 1.0, Lipase 26 07/15/23 16:00: Lactic Acid 1.4 07/15/23 17:10: Urine Color Yellow, Urine Clarity Clear, Urine pH 6.0, Ur Specific [place] 1.015, Urine Protein 15 H, Urine Glucose (UA) Normal, Urine Ketones Negative, Urine Occult Blood Negative, Urine Nitrite Negative, Urine Bilirubin Negative, Urine Urobilinogen 4 H, Ur Leukocyte Esterase 25 H, Urine RBC 0 SEEN, Urine WBC 0 SEEN, Ur Squamous Epith Cells 0-5 SEEN, Calcium Oxalate Crystal 1+, Urine Bacteria 0 SEEN, Urine Mucus 0 SEEN Radiology Impression Abdomen/Pelvis CT 07/15/23 15:21 IMPRESSION: 1. Suspect enteritis of a loop of distal ileum in the right upper quadrant with a small amount of free fluid suggestive of peritonitis. No abscess or perforation. 2. Sigmoid diverticulosis without diverticulitis. 3. Possible proctitis or rectal mass. Clinical correlation is recommended. 4. Small right inguinal hernia containing fat and fluid. Electronically Signed: Leon Son MD at 17:35 EDT , 07/15/232050 <Electronically signed by Estela Kwon MD> Cosigner Signature (if applicable): CC: Dr. Jt Membreno MD; Dr. Estela Kwon MD~ Signed [facility] Work Phone: 1(202) 512-288511-01-2023 History and physical note Author Kevin Veras [facility] July 15, 2023 8:09pm Note Date/Time July 15, 2023 7 :57pm [facility] Medical Records Department [address] [place] [address] [place] [address] H&P Exam - Hospitalist 07/15/231945 MR#: [id number] Acct: [id number] Name: MIGUE GUNTER Rep #:[id number] : 1960 63 From: Kevin Veras DO PCP: Dr. Jt Membreno MD Status:AD M IN Location: [place] [address] HPI - General General Date of Admission: 07/15/23 Date of Service: 07/15/23 Chief Complaint: Abdominal pain HPI Narrative MIGUE GUNTER, is a 63 M who presents to the emergency room at [facility] for evaluation of abdominal pain which started yesterday afternoon, he states that most of the abdominal pain is on the right side and also left middleabdomen to left lower abdomen. Patient has a history of diarrhea due to recent radiation treatment for rectal cancer, he underwent chemotherapy last Thursday, he is on Xeloda, his oncologist is Dr. Quesada. Patient denies any fever or chills. Work-up in the emergency room included a CBC which showed a normal white count, hemoglobin was 12.3, chemistry profile showed a BUN of 20, urinalysis was unremarkable, INR was 1.4. CT of the abdomen pelvis was performed which showed suspicious for enteritis of a loop of distal ileum in the right upper quadrant with a small amount of free fluid suggestive of peritonitis, no abscess or perforation was noted, there was noted to be possible proctitis or rectal mass. Small right inguinal hernia was noted. This case was discussed with Dr. Kwon of general surgery, he felt that the patient could possibly have typhlitis or radiation inflammation. Patient was given IV Zosyn in the emergency room, he will be admitted to [facility], given IV fluids, he will be placed on clear liquids and he will be seen in consultation by general surgery. 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 Non-smoker CORRINA (obstructive sleep apnea) Pulmonary embolism (06/10/18) Rectal cancer Rectal mass Sinusitis Thyroid disease Weight gain with edema Home Medications cholecalciferol (vitamin D3) 50 mcg (2,000 unit) capsule 2,000 unit PO DAILY supplement 06/16/19 [History Last Taken 06/16/19] furosemide 40 mg tablet 40 mg PO DAILY diuretic 06/16/19 [History Last Taken 06/16/19] benazepril 20 mg tablet 20 mg PO DAILY blood pressure 01/09/21 [History Last Taken 05/05/23] sertraline 50 mg tablet 50 mg PO DAILY depression 01/09/21 [History Last Taken Unknown] omeprazole 20 mg capsule,delayed release 20 mg PO Q OTHER DAY PRN GERD 10/25/21 [History Last Taken Unknown] rosuvastatin 5 mg tablet (Crestor) 5 mg PO Q OTHER DAY cholesterol #45 tabs 12/25/22 [Rx Last Taken Unknown] aspirin 81 mg tablet,delayed release (Enteric Coated Aspirin) 81 mg PO DAILY heart #90 tabs 01/11/23 [Rx Last Taken 05/04/23] diltiazem HCl 300 mg capsule,extended release 24 hr 300 mg PO DAILY heart #90 caps 04/30/23 [Rx Last Taken 05/05/23] potassium chloride 20 mEq tablet,extended release 20 meq PO DAILY low potassium #14 tabs 07/07/23 [Rx Last Taken Unknown] warfarin 3 mg tablet 3 mg PO QHS blood thinner 07/09/23 [History Last Taken Unknown] Allergy/AdvReac Type Severity Reaction Status Date / Time apixaban [From Eliquis] AdvReac Severe Pt formed Verified 07/15/23 15:04 PE's in spite of taking routinely simvastatin AdvReac Severe Myalgias Verified 07/15/23 15:04 doxycycline AdvReac Intermediate GI upset Verified 07/15/23 15:04 Family History Mother CAD (coronary artery disease) Diabetes Hypertension Hyperlipidemia Heart disease Father CVA (cerebral vascular accident) Surgical History History of appendectomy History of appendectomy History of cardiac catheterization History of colonoscopy (~06/2016) History of hip surgery History of left heart catheterization (10/21/18) History of left inguinal hernia repair Social History Smoking Status: Never smoker alcohol intake: never substance use type: does not use caffeine: Yes Type: carbonated beverages Number of servings: 1 ROS Constitutional Constitutional: Denies anorexia, change in weight, chills, fatigue, fever(s), malaise, night sweats or weakness Eyes Eyes: Denies blurry vision, change in vision, discharge from eye(s) or eye pain Cardiovascular Cardiovascular: Denies chest pain, claudication, dyspnea on exertion, edema, lightheadedness or palpitations Respiratory/Chest Respiratory/Chest: Denies cough, hemoptysis, shortness of breath at rest or shortness of breath with exertion Gastrointestinal Gastrointestinal: Reports abdominal pain and diarrhea; Denies constipation, hematemesis, hematochezia, melena, nausea or vomiting Genitourinary Genitourinary: Denies dysuria, hematuria, urinary frequency, urinary hesitancy, urinary incontinence or urinary urgency Musculoskeletal Musculoskeletal: Denies back pain, joint pain, joint stiffness, joint swelling, myalgias or neck pain Neurologic Neurologic: Denies abnormal gait, abnormal speech, confusion, dizziness, focal weakness, headache(s), loss of vision, numbness, other visual disturbances, paresthesias, syncope or tingling Psychiatric Psychiatric: Denies anxiety, cognitive impairment, depression, irritability, mood swings or suicidal ideation Endocrine Endocrinology: Denies change in body appearance, cold intolerance, excessive sweating, heat intolerance, polydipsia or polyuria Hematologic/Lymphatic Hematologic/Lymphatic: Denies none, anemia, easy bleeding, easy bruising or lymphadenopathy Allergic/Immunologic Allergic/Immunologic: Denies rhinitis, urticaria, eczemia or asthma Vital Signs Vital Signs Vital Signs: 07/15/23 15:02 07/15/23 16:18 07/15/23 16:18 Temperature 96.2 F L 98.2 F Temperature Source Temporal Oral Pulse Rate 90 82 81 Respiratory Rate 18 18 18 Blood Pressure 126/69 H 124/57 H 124/57 H Blood Pressure Mean 88 79 79 Pulse Ox 96 96 95 Oxygen Delivery Method Room Air Room Air Room Air 07/15/23 18:00 Temperature Temperature Source Pulse Rate 79 Respiratory Rate 18 Blood Pressure 122/57 H Blood Pressure Mean 78 Pulse Ox 99 Oxygen Delivery Method Room Air Weight Weight: 129.727 kg Body Mass Index (BMI) 39.9 Physical Exam Const alert, oriented x3, no apparent distress and healthy appearing General Appearance: cooperative, well kempt and well developed Orientation / Consciousness: awake, oriented to person, oriented to place and oriented to time HEENT normocephalic, head/scalp atraumatic, hearing grossly normal bilaterally and moist oral mucous membranes Eyes PERRL, EOMs intact bilaterally and conjunctivae normal Neck supple, no JVD, thyroid normal and no carotid bruits General: trachea midline Resp normal respiratory effort, no retractions, no use of accessory muscles and clearto auscultation bilaterally Auscultation: Negative for rales, rhonchi or wheezes Cardio regular rate, regular rhythm, S1 normal heart sound, S2 normal heart sound, no murmurs, no rub and no gallops GI GI Narrative: Abdomen is mildly distended, there is abdominal tenderness to palpation in the right upper quadrant noted and in the mid left lower quadrant. No rebound abdominal tenderness was noted, bowel sounds are present in all 4 quadrants. Extremity no clubbing, cyanosis or edema Skin no rashes or lesions noted General Skin Exam: no breakdown Neuro oriented x3, CN's II-XII intact bilaterally, moves all extremities, no focal motor deficits and no sensory deficits noted Sensorium / Orientation: awake and alert Speech: speech normal Psych affect normal Results Lab / Micro Data 07/15/23 15:50 07/15/23 15:50 Labs: Laboratory Results - last 24 hr 07/15/23 15:50: WBC 7.8, RBC 3.75 L, Hgb 12.3 L, Hct 36.9 L, MCV 98.4 H, MCH 32.8 H, MCHC 33.3, RDW Std Deviation 64.7 H, RDW Coeff of [place] 18.8 H, Plt Count 204, MPV 9.6, Immature Gran % (Auto) 0.600, Neut % (Auto) 80.7 H, Lymph % (Auto)5.4 L, Lane % (Auto) 11.1 H, Eos % (Auto) 1.9, Baso % (Auto) 0.3, Absolute Neuts(auto) 6.3, Absolute Lymphs (auto) 0.42 L, Nucleated RBC % 0, Differential Comment SCANNED, PT 18.3 H, INR 1.5, Sodium 141, Potassium 3.7, Chloride 108 H, Carbon Dioxide 25.0, Anion Gap 8, BUN 20 H, Creatinine 0.96, Estim Creat Clear Calc 81.71, Est GFR (MDRD) Af Amer 101, Est GFR (MDRD) Non-Af 83, BUN/CreatinineRatio 20.8 H, Glucose 114 H, Calcium 8.8, Total Bilirubin 0.90, AST 21, ALT 23, Alkaline Phosphatase 76, Total Protein 6.3 L, Albumin 3.1 L, Globulin 3.2, Albumin/Globulin Ratio 1.0, Lipase 26 07/15/23 16:00: Lactic Acid 1.4 07/15/23 17:10: Urine Color Yellow, Urine Clarity Clear, Urine pH 6.0, Ur Specific [place] 1.015, Urine Protein 15 H, Urine Glucose (UA) Normal, Urine Ketones Negative, Urine Occult Blood Negative, Urine Nitrite Negative, Urine Bilirubin Negative, Urine Urobilinogen 4 H, Ur Leukocyte Esterase 25 H, Urine RBC 0 SEEN, Urine WBC 0 SEEN, Ur Squamous Epith Cells 0-5 SEEN, Calcium Oxalate Crystal 1+, Urine Bacteria 0 SEEN, Urine Mucus 0 SEEN Radiology Impression Abdomen/Pelvis CT 07/15/23 15:21 IMPRESSION: 1. Suspect enteritis of a loop of distal ileum in the right upper quadrant with a small amount of free fluid suggestive of peritonitis. No abscess or perforation. 2. Sigmoid diverticulosis without diverticulitis. 3. Possible proctitis or rectal mass. Clinical correlation is recommended. 4. Small right inguinal hernia containing fat and fluid. Electronically Signed: Leon Son MD at 17:35 EDT , Assessment & Plan Assessment/Plan (1) Abdominal pain: PLAN: Plan 1. Acute enteritis with possible peritonitis-patient will be admitted to [facility] 3, he will be placed on clear liquids, he will remain on his home medications with the exception of his vitamins and cholesterol meds, he will be seen in consultation by general surgery, he will be given IV fluids #2 recent diagnosis of rectal cancer-patient has completed his radiotherapy and had his first dose of chemotherapy this week, Dr. Quesada sees the patient #3 essential hypertension-patient will remain on his home medications #4 past history of pulmonary embolism/DVT of the leg several years ago on chronic Coumadin-patient states he was on Eliquis for a time and it was discontinued after the leg DVT resolved, he then had a embolus in the pulmonaryartery and was placed on Eliquis, this was then changed to Coumadin, patient hadbeen in the emergency room recently on 07/12/2023 and his INR was elevated at 9.8, he was given IV vitamin K 10 mg, and he was told to stop his Coumadin-he did not take it on Thursday and Thursday and resumed it on Thursday. He states he resumed it at 7 mg/day on Thursday. I have elected to resume his Coumadin at 6 mg daily, it may take several days for the patient's INR to become therapeutic, I will give the patient an extra dosage of warfarin 5 mg tonight in addition to his 6 mg. Patient's INR today was 1.5. #5 morbid obesity-complicates care, medical course, recovery, and prognosis Total clinical time spent by myself addressing the patient's medical issues, reviewing all of his data, and collaborating with patient's care team: 55 minutes Charges/Coding Visit Charges Inpatient E&M: 07418 Init Hosp L2 07/15/232008 <Electronically signed by Kevin Veras DO> Cosigner Signature (if applicable): CC: Dr. Jt Membreno MD; Dr. Kevin Veras DO~ Signed [facility] Work Phone: 1(133) 982-125011-01-2023 Miscellaneous Notes* Telephone Encounter - Kesha Quinn RN - 07/15/2023 12:49 PM EDT SPECIALTY CARE COORDINATION FOLLOW-UP NOTE Spoke with patient. Advised that MRI was done on 07/13 so additional MRI scheduled on 08/[address] Aguiar will see patient on 08/04 in office for a flex sig and he will be presented at MDT for formal recommendations Kesha Quinn RN July 15, 2023 [facility] History of Present illness Narrative* Alia Anderson RT(R) - 07/13/2023 8:40 AM EDT Radiology Service Progress Note DATE OF SERVICE: [...] 2023 TIME: 9:12 AM [facility] Discharge summary Author Dale Rosales [facility] July 12, 2023 12:48pm Note Date/Time July 12, 2023 1 1:05am [facility] Medical Records Department [address] [place] [id number] Emergency Department Summary 07/12/23 MR#: [id number] Acct: [id number] Name: MIGUE GUNTER Mansi Rep #:[id number] : 1960 63 From: Dale Rosales DO PCP: Dr. Jt Membreno MD Status:RE G ER Location: ED HPI History of Present Illness Chief Complaint: GI Bleed Narrative Narrative: Patient is a 63-year-old male who is presenting to the ER today with chief complaint of a small sore that was caused from his dog at home yesterday that iscontinuously bleeding to left lower anterior lopez. Patient has multiple sores to his arms, scratches from his dog. There are no bite wounds. Patient has a lab at home, and is continuously climbing on the patient, and causing intermittent small sores. Patient is on Coumadin. Patient does have a history of rectal cancer and has intermittent rectal bleeding that is normal from what he was told. He just finished radiation and chemo recently, he is starting chemo again in 4 weeks. Patient states that since he started chemo, he has been having more bleeding. Patient had his INR checked on Thursday was 2.2. Patient is not diabetic. Patient has no acute care concern for infection. Patient's small puncture to the right lopez has stopped, the left anterior lopez puncture has been bleeding throughout the evening. Patient's been having bandages and pressure dressings on it. Patient woke up at 4:00 this morning and noted that there was blood on his sheets in bed because it continued to keep bleeding. He has a very small puncture wounds, no laceration, no skin tear. Patient has no other signs of bleeding, irritation, infections. No acute complaints. Not lightheaded, dizzy, no chest pain or shortness of breath patient states he has been having intermittent rectal bleeding, he does have rectal cancer. Patient was told this was going to be normal and expected after his chemoradiation and treatments from the rectal cancer. Patient does not have continuous rectal bleeding, it is intermittent and nothing significant today.. [facility] Medical History (Updated 07/12/23 @ 12:[address] 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 Non-smoker CORRINA (obstructive sleep apnea) Pulmonary embolism (06/10/18) Rectal cancer Rectal mass Sinusitis Thyroid disease Weight gain with edema Home Medications cholecalciferol (vitamin D3) 50 mcg (2,000 unit) capsule 2,000 unit PO DAILY supplement 06/16/19 [History Last Taken 06/16/19] furosemide 40 mg tablet 40 mg PO DAILY 06/16/19 [History Last Taken 06/16/19] benazepril 20 mg tablet 20 mg PO DAILY 01/09/21 [History Last Taken 05/05/23] sertraline 50 mg tablet 50 mg PO DAILY 01/09/21 [History Last Taken Unknown] omeprazole 20 mg capsule,delayed release 20 mg PO Q OTHER DAY PRN GERD 10/25/21 [History Last Taken Unknown] rosuvastatin 5 mg tablet (Crestor) 5 mg PO Q OTHER DAY #45 tabs 12/25/22 [Rx Last Taken Unknown] aspirin 81 mg tablet,delayed release (Enteric Coated Aspirin) 81 mg PO DAILY #90tabs 01/11/23 [Rx Last Taken 05/04/23] diltiazem HCl 300 mg capsule,extended release 24 hr 300 mg PO DAILY #90 caps 04/30/23 [Rx Last Taken 05/05/23] ondansetron 8 mg disintegrating tablet 8 mg PO Q12H PRN nausea and vomiting #30 tabs 05/25/23 [Rx Last Taken Unknown] diclofenac sodium 1 % topical gel 2 g topical BID #100 grams 05/28/23 [Rx Last Taken Unknown] prochlorperazine maleate 10 mg tablet 10 mg PO Q6H PRN nausea and vomiting #30 tabs 05/28/23 [Rx Last Taken Unknown] potassium chloride 20 mEq tablet,extended release 20 meq PO DAILY #14 tabs 07/07/23 [Rx Last Taken Unknown] hydrocortisone acetate 25 mg rectal suppository 25 mg [place] BID PRN itching 07/09/23 [History Last Taken Unknown] warfarin 3 mg tablet 3 mg PO QHS 07/09/23 [History Last Taken Unknown] warfarin 5 mg tablet 5 mg PO QHS 07/09/23 [History Last Taken Unknown] Allergy/AdvReac Type Severity Reaction Status Date / Time apixaban [From Eliquis] AdvReac Severe Pt formed Verified 07/12/23 09:24 PE's in spite of taking routinely simvastatin AdvReac Severe Myalgias Verified 07/12/23 09:24 doxycycline AdvReac Intermediate GI upset Verified 07/12/23 09:24 Family History Mother CAD (coronary artery disease) Diabetes Hypertension Hyperlipidemia Heart disease Father CVA (cerebral vascular accident) Surgical History History of appendectomy History of appendectomy History of cardiac catheterization History of colonoscopy (~06/2016) History of hip surgery History of left heart catheterization (10/21/18) History of left inguinal hernia repair Social History Smoking Status: Never smoker alcohol intake: never substance use type: does not use caffeine: Yes Type: carbonated beverages Number of servings: 1 ROS ROS ED ROS Narrative REVIEW OF SYSTEMS: Unless otherwise stated in this report the patient's positiveand negative responses for review of systems for constitutional, eyes, ENT, cardiovascular, respiratory, gastrointestinal, neurological, , musculoskeletal, and integument systems and related systems to the presenting problem are either stated in the history of present illness or were not pertinent or were negative for the symptoms and/or complaints related to the presenting medical problem. EXAM Physical Exam Narrative Exam Narrative: Vital signs reviewed and patient is not hypoxic. General: The patient appears well and in no apparent distress. Patient is resting comfortably on cart. Not toxic, lethargic, or listless. Skin: Warm, dry, no pallor noted. There is no rash noted. Expanding or developing hematoma. No laceration or skin tear. A very tiny pinpoint puncturewound to the right anterior lopez have stopped bleeding. They do have very slow venous bleeding, nothing pulsatile. Noted patient has very small pinpoint puncture wound to the left anterior lopez Head: Normocephalic, atraumatic Eye: Normal conjunctiva, no drainage, EOMI. PERRL. Ears, Nose, Mouth, and Throat: oral mucosa is moist. Nares patent. Mouth withoutvesicles. Cardiovascular: Regular Rate and Rhythm, no murmurs, gallops, or rubs Respiratory: Patient is in no distress, no accessory muscle use, lungs are clearto auscultation, no wheezing, rales or rhonchi Back: non-tender, no CVA tenderness bilaterally to percussion. NO CTLS midline or paraspinal tenderness to palpation. GI: Soft, obese, no tenderness to palpation, no masses appreciated. No rebound, guarding, or rigidity noted. Musculoskeletal: The patient has full range of motion of all extremities and joints with no difficulty. Patient has no motor, no sensory deficits. Neurological: A&O x4, normal speech, no focal neurological deficits. Psychiatric: Cooperative Const Vital Signs: 07/12/23 09:21 07/12/23 11:44 Temperature 97.3 F L Temperature Source Temporal Pulse Rate 79 70 Respiratory Rate 18 16 Blood Pressure 140/70 H 127/76 H Blood Pressure Mean 93 93 Pulse Ox 95 96 Oxygen Delivery Method Room Air Room Air MDM MDM MDM Narrative Medical decision making narrative: Patient initially had a Surgicel placed on the small tiny pinpoint area that wasbleeding to the left anterior lopez over a varicosity. A pressure dressing was placed for 1 hour, the bleeding had not stopped. Patient then had a second Surgicel placed along with 3 cc of 1% lidocaine with epinephrine. Pressure was held by healthcare administration intern for 25 minutes, the bleeding has stopped. Telfa and dry dressing was placed. Patient's CBC shows no significant findings, platelets [id number]. Patient will hold Coumadin today and tomorrow, follow-up with oncology for outpatient INR order on Thursday and then continue dosing as recommended. Patient's been very pleasant to take care of, no questions at discharge. Patient was given a dose of vitamin K IV 10mg in the ER. History & Record Review Discussion w/independent historian: Patient Lab Data Attestation: I reviewed the patient's lab results. Labs: Laboratory Results - last 24 hr 07/12/23 10:15 WBC 5.4 RBC 3.52 L Hgb 11.6 L Hct 34.9 L MCV 99.1 H MCH 33.0 H MCHC 33.2 RDW Std Deviation 62.9 H RDW Coeff of Kenroy 18.4 H Plt Count 200 MPV 8.9 Immature Gran % (Auto) 0.600 Neut % (Auto) 78.7 H Lymph % (Auto) 4.[address] % (Auto) 13.4 H Eos % (Auto) 2.4 Baso % (Auto) 0.4 Absolute Neuts (auto) 4.3 Absolute Lymphs (auto) 0.24 L Nucleated RBC % 0 Differential Comment SCANNED PT 80.7 H INR 9.8 H* Sodium 144 Potassium 3.7 Chloride 112 H Carbon Dioxide 28.0 Anion Gap 4 L BUN 20 H Creatinine 0.97 Estim Creat Clear Calc 80.86 Est GFR (MDRD) Af Amer 100 Est GFR (MDRD) Non-Af 82 BUN/Creatinine Ratio 20.6 H Glucose 106 Calcium 8.7 Total Bilirubin 0.60 AST 20 ALT 23 Alkaline Phosphatase 70 Total Protein 6.1 L Albumin 3.1 L Globulin 3.0 Albumin/Globulin Ratio 1.0 Discharge Plan Triage Chief Complaint: GI Bleed ED Provider: Dale Rosales Dx/Rx/DC Orders Clinical Impression: Bleeding, Supratherapeutic INR Prescriptions: No Action benazepril 20 mg tablet 20 mg PO DAILY Patient Comments: TAKE 1 TABLET BY MOUTH EVERY DAY sertraline 50 mg tablet 50 mg PO DAILY ondansetron 8 mg tablet,disintegrating 8 mg PO Q12H PRN (Reason: nausea and vomiting) Qty: 30 0RF prochlorperazine maleate 10 mg tablet 10 mg PO Q6H PRN (Reason: nausea and vomiting) Qty: 30 2RF diclofenac sodium 1 % gel 2 g topical BID Qty: 100 2RF Rx Instructions: apply to hands and feet twice daily potassium chloride 20 mEq tablet extended release 20 meq PO DAILY Qty: 14 0RF cholecalciferol (vitamin D3) 2,000 UNIT capsule 2,000 unit PO DAILY omeprazole 20 mg capsule,delayed release(DR/EC) 20 mg PO Q OTHER DAY PRN (Reason: GERD) hydrocortisone acetate 25 mg suppository 25 mg [place] BID PRN (Reason: itching) Rx Instructions: rectal insertion twice per day prn warfarin 3 mg tablet 3 mg PO QHS Protocol: Dose Management Condition: Thursday Dose/Route: 8 mg Instruction: 1 x 3 mg tablet, 1 x 5 mg tablet Condition: Thursday Dose/Route: 8 mg Instruction: 1 x 3 mg tablet, 1 x 5 mg tablet Condition: Thursday Dose/Route: 8 mg Instruction: 1 x 3 mg tablet, 1 x 5 mg tablet Condition: Thursday Dose/Route: 8 mg Instruction: 1 x 3 mg tablet, 1 x 5 mg tablet Condition: Dose/Route: 8 mg Instruction: 1 x 3 mg tablet, 1 x 5 mgtablet Condition: Thursday Dose/Route: 8 mg Instruction: 1 x 3 mg tablet, 1 x 5 mg tablet Condition: Thursday Dose/Route: 8 mg Instruction: 1 x 3 mg tablet, 1 x 5 mgtablet Protocol Text: Adjustment Start Date: 05/28/23 INR Value: 2.0 INR Date: 05/28/23 Recheck Date: 06/27/23 Patient Comments: STOPPING 2 DAYS BEFORE SCOPE Rx Instructions: Dose change to 8mg daily: needs 5mg +3mg tabs warfarin 5 mg tablet 5 mg PO QHS Protocol: Dose Management Condition: Thursday Dose/Route: 8 mg Instruction: 1 x 3 mg tablet, 1 x 5 mg tablet Condition: Thursday Dose/Route: 8 mg Instruction: 1 x 3 mg tablet, 1 x 5 mg tablet Condition: Thursday Dose/Route: 8 mg Instruction: 1 x 3 mg tablet, 1 x 5 mg tablet Condition: Thursday Dose/Route: 8 mg Instruction: 1 x 3 mg tablet, 1 x 5 mg tablet Condition: Dose/Route: 8 mg Instruction: 1 x 3 mg tablet, 1 x 5 mgtablet Condition: Thursday Dose/Route: 8 mg Instruction: 1 x 3 mg tablet, 1 x 5 mg tablet Condition: Thursday Dose/Route: 8 mg Instruction: 1 x 3 mg tablet, 1 x 5 mgtablet Protocol Text: Adjustment Start Date: 05/28/23 INR Value: 2.0 INR Date: 05/28/23 Recheck Date: 06/27/23 Patient Comments: STOPPING 2 DAYS BEFORE SCOPE Rx Instructions: Dose change to 8mg daily so needs 5mg + 3mg tabs furosemide 40 mg tablet 40 mg PO DAILY rosuvastatin [Crestor] 5 mg tablet 5 mg PO Q OTHER DAY Qty: 45 3RF aspirin [Enteric Coated Aspirin] 81 mg tablet,delayed release (DR/EC) 81 mg PO DAILY Qty: 90 3RF diltiazem HCl 300 mg capsule,extended release 24hr 300 mg PO DAILY Qty: 90 3RF Primary Care Provider: Jt Membreno Referrals: Jt Membreno MD [Primary Care Provider] - What to do if you have Problems For any increased pain, shortness of breath, bleeding, nausea or vomiting, chestpain, or any unexpected problems, contact your Primary Care Provider. Call [facility] ([phone]) or report to the closest Emergency Room. Call 911 if necessary. 07/12/23 1248 <Electronically signed by Dale Rosales DO> Cosigner Signature (if applicable): CC: Dr. Jt Membreno MD ~ Signed [facility] Work Phone: 1(756) 481-450410-25-2023 Miscellaneous Notes* Telephone Encounter - Germaine Melgarjon Alexanderlexi - 07/08/2023 10:30 AM EDT I spoke with the patient's and advised that is preferred that the imaging is done here. If they wished to have them locally, we would need a fax order to send the orders. A follow up call was made, and a detailed message was left with these details as well. [phone] documented in this encounterPrem[facility]23 Miscellaneous Notes* Telephone Encounter - Kesha Quinn RN - 07/03/2023 10:33 AM EDT SPECIALTY CARE COORDINATION FOLLOW-UP NOTE Received call [...] RN July 03, 2023 documented in this encounterPrem[facility]09-11-2023 Miscellaneous Notes* Telephone Encounter - Kesha Quinn RN - 05/25/2023 11:21 AM EDT SPECIALTY CARE COORDINATION FOLLOW-UP NOTE Informed that we received outside imaging, he will be presented at [facility] on Thursday and will received official recommendation from Dr. Aguiar. Patient states that current plan is to start chemo and radiation for 27 days 06/01. Kesha Quinn RN May 25, 2023 * Telephone Encounter - Kesha Quinn RN - 05/25/2023 11:21 AM EDT ----- Message from Mary Kay Herron [facility] at 05/25/2023 10:35 AM EDT ----- Regarding: Questions/update Please call the patients Myriam to discuss some additional questions about the plan. She reporthe saw a local oncologist Dr. Quesada and feels that a chemo treatment preference was discussed in theoffice with Dr. Aguiar. [phone] documented in this encounterPremier [facility]08-22-2023 History and physical note Author Alon Boland [facility] May 05, 2023 8:22am Note Date/Time May 05, 2023 8: 22am [facility] Medical Records Department [address] [place] [address] History & Physical Exam 05/05/23819 MR#: [id number] Acct: [id number] Name: MIGUE GUNTER Rep #:[id number] : 1960 63 From: Alon Boland MD PCP: Dr. Jt Membreno MD Status:[facility] Location: [place] [address] History and Physical Date of Admission: 05/05/23 Visit Reasons: RECTAL BLEED Chief Complaint: rectal bleeding Demand Planning Analyst Required: No Is patient in pain?: No Allergies apixaban [From Eliquis] Adverse Reaction (Severe, Verified 04/13/23 08:10) Pt formed PE's in spite of taking routinelysimvastatin Adverse Reaction (Severe,Verified 04/13/23 08:10) Myalgiasdoxycycline Adverse Reaction (Intermediate, Verified 04/13/23 08:10) GI upset Medications cholecalciferol (vitamin D3) 50 mcg (2,000 unit) capsule 2,000 unit PO DAILY supplement 06/16/19 [History Confirmed 04/13/23] furosemide 40 mg tablet 40 mg PO DAILY 06/16/19 [History Confirmed 04/13/23] benazepril 20 mg tablet 20 mg PO DAILY 01/09/21 [History Confirmed 04/13/23] sertraline 50 mg tablet 50 mg PO DAILY 01/09/21 [History Confirmed 04/13/23] omeprazole 20 mg capsule,delayed release 20 mg PO Q OTHER DAY PRN GERD 10/25/21 [History Confirmed 04/13/23] diltiazem HCl 300 mg capsule,extended release 24 hr 300 mg PO DAILY #90 caps 04/28/22 [Rx Confirmed 04/13/23] warfarin 1 mg tablet See Rx Instructions .Route .COMPLEX #180 TABLETS 11/27/22 [Rx Confirmed 04/13/23] warfarin 3 mg tablet 3 mg PO DAILY #90 tabs 11/28/22 [Rx Confirmed 04/13/23] warfarin 5 mg tablet 5 mg PO DAILY 90 days #90 tabs 11/28/22 [Rx Confirmed 04/13/23] rosuvastatin 5 mg tablet (Crestor) 5 mg PO Q OTHER DAY #45 tabs 12/25/22 [Rx Confirmed 04/13/23] aspirin 81 mg tablet,delayed release (Enteric Coated Aspirin) 81 mg PO DAILY #90tabs 01/11/23 [Rx Confirmed 04/13/23] PFSH Medical History Abdominal pain Acute cough Afib Arthritis Asthma Benign essential hypertension COVID-19 Dyspnea on exertion Edema Gastroesophageal reflux disease History of venous thromboembolism Hyperlipidemia Hypertension 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 CORRINA (obstructive sleep apnea) Pulmonary embolism (06/10/18) Sinusitis Weight gain with edema Surgical History History of appendectomy History of appendectomy History of colonoscopy (~06/2016) History of hip surgery History of left heart catheterization (10/21/18) History of left inguinal hernia repair Family History Mother CAD (coronary artery disease) Diabetes Hypertension Hyperlipidemia Heart diseaseFather CVA (cerebral vascular accident) Social History Smoking Status: Never smoker alcohol intake: never substance use type: does not use caffeine: Yes Type: carbonated beverages Number of servings: 1 HPI HPI HPI: 63-year-old gentleman who is referred by Dr Jt Membreno regarding concerns about rectal bleeding. A written compromise surgical consult recommendations will return to him. Reviewing medications it appears that he is on omeprazole and meloxicam and warfarin and low-dose aspirin in addition to his other medications. He has a history of paroxysmal atrial fibrillation and morbid obesity and pulmonary embolism and obstructive sleep apnea and gastroesophageal reflux disease and bilateral extremity edema. I assisted him on December 10, 2018 with a colonoscopy. The preparation was fair. Hemorrhoids were noted. Diverticulosis was noted in the entire colon. At that time the patient was on Eliquis and repeat exam at 5 years for screening was recommended. That examination was performed because of left lower quadrant abdominal pain. Previously on August 10, 2017 I assisted him with an esophagogastroduodenoscopy. Polyps were noted. Small to moderate-sized hiatal hernia. Pathology showed mild gastritisAnd H. pylori was negative. 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 Still doing heavy lifting and straining on occasion. He will note progressively frequent rectal bleeding noted on the tissue paper and on the stool. He denies any dark-colored stool. Denies any family history of colon cancer. He has been on omeprazole for period of time but he says his upper GI symptoms are really quite mild and infrequent. He now only takes the omeprazole every other day. He does have chronic bilateral extremity swelling. Occasionally he will use support hose. He has been more recently placed on a diuretic ROS General General: No weight change, appetite, fatigue, colon cancer, breast cancer or weakness HEENT HEENT: No difficulty swallowing, eye injury, eye surgery, swollen glands or hoarseness Endo Endocrine: No thyroid disease, diabetes mellitus, thyroid cancer, Hair loss, heat intolerance or cold intolerance Skin Skin: No rash or changing moles Breast Breast: No left breast lump, right breast lump, nipple discharge, breast pain, abnormal mammogram, abnormal US or breast enlargement Musc Musculoskeletal: Yes back problems and arthritis; No rheumatoid arthritis, gout or joint pain Cardio Cardiovascular: Yes atrial fibrillation and high blood pressure; No murmur, pacemaker, heart disease, heart attack, heart stent, palpitations, shortness of breat with exertion or chest pain Psych Psychiatric: Yes anxiety; No depression or hearing voices Resp Respiratory: No shortness of breath, Yes sleep apnea, No cough, No COPD, No asthma, No emphysema and No wheezing Gastro Gastrointestinal: No abdominal pain, No nausea or vomiting, No diarrhea, No constipation, No blood in stool, Yes acid reflux, Yes hemorrhoids, No ulcers, Nogallbladder problem and No black,tarry stools Juma Hematologic: Yes blood thinners, No blood disorders, No bleeding, No anemia and Yes blood clots Neuro Neurologic: No system reviewed and no additional complaints, except as documented, No as per HPI, No abnormal gait, No abnormal hearing, No abnormal movements, No abnormal speech, No behavioral changes, No burning sensations, No confusion, No convulsions, No disequilibrium, No dizziness, No localized weakness, No frequent falls, No headache(s), No lack of coordination, No loss ofvision, No memory loss, No numbness, No other visual disturbances, No radicular pain, No restless legs, No sensory deficit, No syncope, No tingling, No tremor(s), No weakness and No other Exam Const General: cooperative, comfortable and no acute distress HENMT Head: normal to inspection Eyes General: appearance normal, both eyes and all related structures Neck Neck: normal visual inspection Chest Chest palpation & inspection: normal inspection of the chest Resp Effort & Inspection: normal respiratory effort Auscultation: clear to auscultation bilaterally Cardio Rate: regular rate Rhythm: regular rhythm GI Auscultation: normal bowel sounds Other: Overweight, no focal mass, no focal tenderness, normal bowel sounds Musc Cervical Spine: normal cervical lordosis Skin General: no rashes or lesions noted Neuro General: patient alert and patient awake Extrem General: no calf tenderness Psych Appearance: grossly normal Assessment and Plan Assessment and Plan (1) Paroxysmal atrial fibrillation: Status: Chronic (2) prison current use 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: Status: Chronic (3) Gastroesophageal reflux disease: Status: Chronic Qualifiers: Esophagitis presence: without esophagitis Qualified Code(s): K21.9 - Gastro-esophageal reflux disease without esophagitis (4) Rectal bleeding: Status: Acute (5) History of pulmonary embolism: Status: Acute Plan: The patient's upper GI study symptoms have moderated greatly. He is concerned at this time as the rectal bleeding. His previous bowel prep was only fair. Wewill have him hold his Coumadin for 2 days. We will perform a colonoscopy with possible biopsy or polypectomy as indicated. We will utilize monitored anesthesia care. Very careful inspection for potential source of rectal bleeding will be pursued. He has had an opportunity to ask and have questions answered. I appreciate the ongoing opportunity of assisting with the surgical care. Copy: Dr Jt Boland M.D., F.A.C.S I have examined the patient and the H&P has been reviewed. There are no clinicalchanges since date of exam. Alon Boland M.D., F.A.C.S. 05/05/23821 <Electronically signed by Alon Boland MD> Cosigner Signature (if applicable): CC: Dr. Jt Membreno MD; Dr. Alon Boland MD~ Signed [facility] Work Phone: 1(646) 670-489108-22-[address] [facility] 05-05-[address] [facility] Author Angelito [facility] July 17, 2023 10:34am Note Date/Time July 17, 2023 1 0:34am [facility] Medical Records Department [address] [place] [address] Counseling Note - Pharmacy 07/17/23 1033 MR#: [id number] Acct: [id number] Name: MIGUE GUNTER Rep #:[id number] : 1960 63 From: Angelito Rios PCP: Dr. Jt Membreno MD Status:AD M IN Location: [place] [address] Pharmacy [facility] has performed discharge medication reconciliation and counseling for this patient. The patient's discharge medication list was reviewed for discrepancies and discrepancies were resolved. The patient was counseled on the following discharge medications and changes in medications for homegoing were reviewed. The Reason for Use, instructions for use, and potential side effects were reviewed for all new medications. The patient's questions regarding all of their medications were answered. 1. Ciprofloxacin 500 mg PO BID x 14 days 2. Metronidazole 500 mg PO TID x 14 days The patient was able to verbally demonstrate an understanding of their dischargemedications. Medications at Discharge Home Medications cholecalciferol (vitamin D3) 50 mcg (2,000 unit) capsule 2,000 unit PO DAILY supplement 06/16/19 furosemide 40 mg tablet 40 mg PO DAILY diuretic 06/16/19 benazepril 20 mg tablet 20 mg PO DAILY blood pressure 01/09/21 sertraline 50 mg tablet 50 mg PO DAILY depression 01/09/21 omeprazole 20 mg capsule,delayed release 20 mg PO Q OTHER DAY PRN GERD 10/25/21 rosuvastatin 5 mg tablet (Crestor) 5 mg PO Q OTHER DAY cholesterol #45 tabs 12/25/22 aspirin 81 mg tablet,delayed release (Enteric Coated Aspirin) 81 mg PO DAILY heart #90 tabs 01/11/23 diltiazem HCl 300 mg capsule,extended release 24 hr 300 mg PO DAILY heart #90 caps 04/30/23 potassium chloride 20 mEq tablet,extended release 20 meq PO DAILY low potassium #14 tabs 07/07/23 warfarin 3 mg tablet 3 mg PO QHS blood thinner 07/09/23 ciprofloxacin HCl 500 mg tablet (Cipro) 500 mg PO BID #28 tabs 07/17/23 metronidazole 500 mg tablet 500 mg PO TID 14 days #42 tabs 07/17/23 07/17/23 1034 <Electronically signed by Angelito glass> Date _ Angelito Lutz Signature (if applicable): Date CC: ~ Signed [facility] Work Phone: Discharge summary Author Shilo Cortez [facility] November 13, 2023 7:23am Note Date/Time November 13, 2023 7:23 am [facility] Medical Records Department [address] [place] [id number] Discharge Summary 11/13/23 0722 MR#: [id number] Acct: [id number] Name: MIGUE GUNTER Rep #:[id number] : 1960 63 From: Shilo Cortez MD PCP: Dr. Jt Membreno MD Status:AD M IN Location: [facility] [id number] Providers Date of Admission: 11/11/23 Date of Discharge: 11/13/23 Primary Care Physician: Dr. Jt Membreno MD Reason For Visit: KIDNEY Diagnosis Discharge Diagnosis (1) Renal colic on right side: Status: Acute Code(s): N23 - Unspecified renal colic Plan: admit for severe intracable pain from kidney stone (2) Hydroureter, right: Status: Acute Code(s): N13.4 - Hydroureter Medications at Discharge Home Medications cholecalciferol (vitamin D3) 50 mcg (2,000 unit) capsule 2,000 unit PO DAILY supplement 06/16/19 furosemide 40 mg tablet 40 mg PO DAILY diuretic 06/16/19 benazepril 20 mg tablet 20 mg PO DAILY blood pressure 01/09/21 sertraline 50 mg tablet 50 mg PO DAILY depression 01/09/21 omeprazole 20 mg capsule,delayed release 20 mg PO Q OTHER DAY PRN GERD 10/25/21 rosuvastatin 5 mg tablet (Crestor) 5 mg PO Q OTHER DAY cholesterol #45 tabs 12/25/22 aspirin 81 mg tablet,delayed release (Enteric Coated Aspirin) 81 mg PO DAILY heart #90 tabs 01/11/23 diltiazem HCl 300 mg capsule,extended release 24 hr 300 mg PO DAILY heart #90 caps 04/30/23 lidocaine-prilocaine 2.5 %-2.5 % topical cream 1 applic topical ONCE PRN port access 30 days #30 grams 07/29/23 diclofenac sodium 1 % topical gel See Rx Instructions .Route .COMPLEX #100 grams08/31/23 warfarin 3 mg tablet (Jantoven) 3 mg PO DAILY 11/11/23 oxycodone 5 mg tablet 5 mg PO Q6H PRN pain 7 days #14 tabs 11/12/23 Hospital Course Summary of Care Provided Hospital Course: Patient was admitted for a very small stone in the distal right ureter. Severe intractable pain was not able to go home from the ER he was admitted stay stay in the hospital for 48 hours pain resolved completely he now just has some mild chronic lower back pain. Stone was very small presumably had passed no more imaging was done I discharged him home today follow-up in my office in a few weeks Physical Exam Const alert and oriented x3 General Appearance: cooperative HEENT normocephalic, head/scalp atraumatic, EAC's normal and TM's normal bilaterally Eyes PERRL and EOMs intact bilaterally Pupil: sluggish Neck no lymphadenopathy, supple and no JVD General: trachea midline Lymph Lymphatic: no lymphadenopathy noted, lymphedema and lymphadenopathy Resp normal respiratory effort, normal air movement and clear to auscultation bilaterally Cardio regular rate, regular rhythm and peripheral pulses 2+ throughout GI soft to palpation, non-tender and non-distended Extremity normal capillary refill and no clubbing, cyanosis or edema General Extremity: no tenderness to palpation of joints or extremities Skin no rashes or lesions noted General Skin Exam: turgor normal Lesions: no lesions Rashes: no rashes Neuro CN's II-XII intact bilaterally Speech: speech normal Motor Exam: strength 5/5 throughout; Negative for general weakness Psych thought process normal, cooperative and affect normal Appearance: appropriate Weight / BMI Weight Weight: 62.737 kg Body Mass Index (BMI) 19.3 ABG / Lab / Microbiology Data 11/11/23 14:00 11/11/23 14:00 D/C Instructions Discharge Diet: No restrictions Call your doctor if you observe: Fever of 101 or Higher Please Follow Up With: Shilo Cortez MD When: Call [phone] for an appointment Meaningful Use Info Meaningful Use Diagnoses (Choose all that apply): None applicable Discharge Plan Admission Admit Date/Time: 11/12/23 15:02 Primary Reason for Your Visit: kidney stone Attending Provider: Shilo Cortez Primary Care Provider: Jt Membreno Discharge Orders/Prescriptions Prescriptions: New oxycodone 5 mg tablet 5 mg PO Q6H PRN (Reason: pain) 7 Days Qty: 14 0RF Continued benazepril 20 mg tablet 20 mg PO DAILY Patient Comments: TAKE 1 TABLET BY MOUTH EVERY DAY sertraline 50 mg tablet 50 mg PO DAILY lidocaine-prilocaine 2.5-2.5 % cream 1 applic topical ONCE PRN (Reason: port access) 30 Days Qty: 30 2RF Hold Instructions: Ordered cholecalciferol (vitamin D3) 2,000 UNIT capsule 2,000 unit PO DAILY omeprazole 20 mg capsule,delayed release(DR/EC) 20 mg PO Q OTHER DAY PRN (Reason: GERD) warfarin [Jantoven] 3 mg tablet 3 mg PO DAILY furosemide 40 mg tablet 40 mg PO DAILY rosuvastatin [Crestor] 5 mg tablet 5 mg PO Q OTHER DAY Qty: 45 3RF aspirin [Enteric Coated Aspirin] 81 mg tablet,delayed release (DR/EC) 81 mg PO DAILY Qty: 90 3RF diltiazem HCl 300 mg capsule,extended release 24hr 300 mg PO DAILY Qty: 90 3RF diclofenac sodium 1 % gel See Rx Instructions .ROUTE .COMPLEX Qty: 100 2RF Dose Instruction: 2 G TOPICALLY TWICE A DAY APPLY TO HANDS AND FEET TWICE DAILY Rx Instructions: 2 G TOPICALLY TWICE A DAY APPLY TO HANDS AND FEET TWICE DAILY Referrals / Follow Up: Shilo Cortez MD [Med Staff - Active Staff] - Jt Membreno MD [Primary Care Provider] - 11/13/23 0708 <Electronically signed by Shilo Cortez MD> Cosigner Signature (if applicable): CC: Dr. Jt Membreno MD; Dr. Shilo Cortez MD~ Signed [facility] Work Phone: evaluation note* Diagnosis Onset Date Resolution Status Degenerative spondylolisthesis acute Benign essential hypertension chronic Hyperlipidemia chronic Paroxysmal atrial fibrillation chronic Obesity chronic CORRINA (obstructive sleep apnea) chronic Acute cough acute Sinusitis acute [facility] Work Phone: evaluation note* Diagnosis Onset Date Resolution Status Benign essential hypertension chronic Hyperlipidemia chronic Paroxysmal atrial fibrillation chronic Obesity chronic CORRINA (obstructive sleep apnea) chronic Acute cough acute Sinusitis acute [facility] Work Phone: evaluation note* Diagnosis Onset Date Resolution Status Obesity chronic CORRINA (obstructive sleep apnea) chronic Acute cough acute Sinusitis acute [facility] Work Phone: Evaluation noteNo assessment information available [facility] Work Phone: evaluation note* Diagnosis Onset Date Resolution Status Acquired deformity of left hip acute Lumbar degenerative disc disease acute Spondylolisthesis at L4-L5 level acute [facility] Work Phone: Evaluation note* Diagnosis Onset Date Resolution Status Acquired deformity of left hip acute Lumbar degenerative disc disease acute Spondylolisthesis at L4-L5 level acute Right shoulder tendonitis ac [place] Right shoulder tendonitis [place] Benign essential hypertension chronic Hyperlipidemia chronic Paroxysmal atrial fibrillation chronic [facility] Work Phone: Evaluation note* Diagnosis Onset Date Resolution Status Acquired deformity of left hip acute Lumbar degenerative disc disease acute Spondylolisthesis at L4-L5 level acute Right shoulder tendonitis ac [place] Right shoulder tendonitis ac [place] Benign essential hypertension chronic Hyperlipidemia chronic Paroxysmal atrial fibrillation chronic Right shoulder tendonitis ac [place] Obesity chronic CORRINA (obstructive sleep apnea) [facility] Work Phone: Evaluation note* Diagnosis Onset Date Resolution Status Right shoulder tendonitis ac [place] Right shoulder tendonitis ac [place] Benign essential hypertension chronic Hyperlipidemia chronic Paroxysmal atrial fibrillation chronic Right shoulder tendonitis ac [place] Obesity chronic CORRINA (obstructive sleep apnea) [facility] Work Phone: Evaluation note* Diagnosis Onset Date Resolution Status Benign essential hypertension chronic Hyperlipidemia chronic Paroxysmal atrial fibrillation chronic Right shoulder tendonitis ac [place] Obesity chronic CORRINA (obstructive sleep apnea) [facility] Work Phone: Evaluation note* Diagnosis Onset Date Resolution Status Right shoulder tendonitis ac [place] Obesity chronic CORRINA (obstructive sleep apnea) [facility] Work Phone: Evaluation note* Diagnosis Onset Date Resolution Status Benign essential hypertension chronic Hyperlipidemia chronic Paroxysmal atrial fibrillation [facility] Work Phone: Evaluation note* Diagnosis Onset Date Resolution Status Benign essential hypertension chronic Hyperlipidemia chronic Paroxysmal atrial fibrillation chronic Lumbar degenerative disc disease acute Lumbar facet joint syndrome acute Spondylolisthesis at L4-L5 level acute [facility] Work Phone: Evaluation note* Diagnosis Onset Date Resolution Status Benign essential hypertension chronic Hyperlipidemia chronic Paroxysmal atrial fibrillation chronic Lumbar degenerative disc disease acute Lumbar facet joint syndrome acute Spondylolisthesis at L4-L5 level acute History of pulmonary embolism acute Rectal bleeding acute Gastroesophageal reflux disease chronic prison current use 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 Paroxysmal atrial fibrillation [facility] Work Phone: Evaluation note* Diagnosis Onset Date Resolution Status Benign essential hypertension chronic Hyperlipidemia chronic Paroxysmal atrial fibrillation chronic Lumbar degenerative disc disease acute Lumbar facet joint syndrome acute Spondylolisthesis at L4-L5 level acute History of pulmonary embolism acute Rectal bleeding acute Gastroesophageal reflux disease chronic prison current use 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 Paroxysmal atrial fibrillation chronic Left thyroid nodule acute Rectal cancer acute [facility] Work Phone: Evaluation note* Diagnosis Onset Date Resolution Status Benign essential hypertension chronic Hyperlipidemia chronic Paroxysmal atrial fibrillation chronic Lumbar degenerative disc disease acute Lumbar facet joint syndrome acute Spondylolisthesis at L4-L5 level acute History of pulmonary embolism acute Rectal bleeding acute Gastroesophageal reflux disease chronic 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 Paroxysmal atrial fibrillation chronic Left thyroid nodule acute Rectal cancer acute Rectal cancer acute Rectal cancer acute [facility] Work Phone: Evaluation note* Diagnosis Onset Date Resolution Status Benign essential hypertension chronic Hyperlipidemia chronic Paroxysmal atrial fibrillation chronic Lumbar degenerative disc disease acute Lumbar facet joint syndrome acute Spondylolisthesis at L4-L5 level acute History of pulmonary embolism acute Rectal bleeding acute Gastroesophageal reflux disease chronic 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 Paroxysmal atrial fibrillation chronic Left thyroid nodule acute Rectal cancer acute Rectal cancer acute Rectal cancer acute Rectal cancer acute [facility] Work Phone: Evaluation note* Diagnosis Onset Date Resolution Status Lumbar degenerative disc disease acute Lumbar facet joint syndrome acute Spondylolisthesis at L4-L5 level acute History of pulmonary embolism acute Rectal bleeding acute Gastroesophageal reflux disease chronic prison current use 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 Paroxysmal atrial fibrillation chronic Left thyroid nodule acute Rectal cancer acute Rectal cancer acute Rectal cancer acute Rectal cancer acute Encounter for education [place] Rectal cancer acute prison current use 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 Rectal cancer 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 Rectal cancer acute Rectal cancer acute prison current use 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 Rectal cancer acute Rectal cancer acute prison current use 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 Rectal cancer acute Left thyroid nodule acute Rectal cancer 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 Rectal cancer acute [facility] Work Phone: Evaluation note* Diagnosis Onset Date Resolution Status History of pulmonary embolism acute Rectal bleeding acute Gastroesophageal reflux disease chronic 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 Paroxysmal atrial fibrillation chronic Left thyroid nodule acute Rectal cancer acute Rectal cancer acute Rectal cancer acute Rectal cancer acute Encounter for education [place] Rectal cancer 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 Rectal cancer acute prison current use 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 Rectal cancer acute Rectal cancer acute prison current use 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 Rectal cancer acute Rectal cancer acute prison current use 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 Rectal cancer acute Left thyroid nodule acute Rectal cancer 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 Rectal cancer acute Rectal cancer acute prison current use 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 Rectal cancer acute Rectal cancer acute prison current use 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 Rectal cancer acute [facility] Work Phone: Evaluation note* Diagnosis Onset Date Resolution Status History of pulmonary embolism acute Rectal bleeding acute Gastroesophageal reflux disease chronic 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 Paroxysmal atrial fibrillation chronic Left thyroid nodule acute Rectal cancer acute Rectal cancer acute Rectal cancer acute Rectal cancer acute Encounter for education [facility] e Rectal cancer 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 Rectal cancer 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 Rectal cancer acute Rectal cancer acute prison current use 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 Rectal cancer acute Rectal cancer 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 Rectal cancer acute Left thyroid nodule acute Rectal cancer acute prison current use 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 Rectal cancer acute Rectal cancer acute prison current use 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 Rectal cancer acute Rectal cancer 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 Rectal cancer acute Abdominal pain acute Enteritis acute History of rectal cancer [facility] Work Phone: Evaluation note* Diagnosis Onset Date Resolution Status History of pulmonary embolism acute Rectal bleeding acute Gastroesophageal reflux disease chronic prison current use 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 Paroxysmal atrial fibrillation chronic Left thyroid nodule acute Rectal cancer acute Rectal cancer acute Rectal cancer acute Rectal cancer acute Encounter for education [facility] Rectal cancer 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 Rectal cancer 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 Rectal cancer acute Rectal cancer 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 Rectal cancer acute Rectal cancer 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 Rectal cancer acute Left thyroid nodule acute Rectal cancer 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 Rectal cancer acute Rectal cancer 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 Rectal cancer acute Rectal cancer 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 Rectal cancer acute Rectal cancer acute Abdominal pain acute Enteritis acute History of rectal cancer [facility] Work Phone: Evaluation note* Diagnosis Malignant neoplasm of rectum (HCC) Malignant neoplasm of rect[facility]* Diagnosis Malignant neoplasm of rectum (HCC) Malignant neoplasm of rectum [facility]* Diagnosis Onset Date Resolution Status History of pulmonary embolism acute Rectal bleeding acute Gastroesophageal reflux disease chronic 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 Paroxysmal atrial fibrillation chronic Left thyroid nodule acute Rectal cancer acute Rectal cancer acute Rectal cancer acute Rectal cancer acute Encounter for education [facility] Rectal cancer 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 Rectal cancer 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 Rectal cancer acute Rectal cancer acute prison current use 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 Rectal cancer acute Rectal cancer 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 Rectal cancer acute Left thyroid nodule acute Rectal cancer 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 Rectal cancer acute Rectal cancer 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 Rectal cancer acute Rectal cancer 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 Rectal cancer acute Rectal cancer acute History of rectal cancer acu te Abdominal pain resolved Enteritis resolved Rectal cancer acute Encounter for education [place] [place] Rectal cancer acute prison current use 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 [facility] Work Phone: Evaluation note* Diagnosis Rectal cancer (HCC)- Primary Malignant [facility] Diagnosis Onset Date Resolution Status Rectal cancer acute Rectal cancer acute Rectal cancer acute Encounter for education [place] Rectal cancer acute prison current use 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 Rectal cancer acute prison current use 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 Rectal cancer acute Rectal cancer 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 Rectal cancer acute Rectal cancer acute prison current use 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 Rectal cancer acute Left thyroid nodule acute Rectal cancer 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 Rectal cancer acute Rectal cancer acute prison current use 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 Rectal cancer acute Rectal cancer 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 Rectal cancer acute Rectal cancer acute History of rectal cancer acu te Abdominal pain resolved Enteritis resolved Rectal cancer acute Encounter for education [place] e Rectal cancer acute prison current use 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 Chemotherapy management, encounter for acute Rectal cancer acute prison current use 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 Obesity chronic CORRINA (obstructive sleep apnea) chronic Hypokalemia acute Rectal cancer acute prison current use 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 Chemotherapy management, encounter for acute Hypokalemia acute Hypophosphatemia acute Rectal cancer 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 [facility] Work Phone: Evaluation note* Diagnosis Onset Date Resolution Status Rectal cancer acute Encounter for education [place] [place] Rectal cancer 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 Rectal cancer 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 Rectal cancer acute Rectal cancer 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 Rectal cancer acute Rectal cancer acute prison current use 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 Rectal cancer acute Left thyroid nodule acute Rectal cancer 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 Rectal cancer acute Rectal cancer acute prison current use 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 Rectal cancer acute Rectal cancer acute prison current use 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 Rectal cancer acute Rectal cancer acute History of rectal cancer acu te Abdominal pain resolved Enteritis resolved Rectal cancer acute Encounter for education [place] Rectal cancer acute prison current use 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 Chemotherapy management, encounter for acute Rectal cancer acute prison current use 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 Obesity chronic CORRINA (obstructive sleep apnea) chronic Hypokalemia acute Rectal cancer acute prison current use 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 Chemotherapy management, encounter for acute Hypokalemia acute Hypophosphatemia acute Rectal cancer acute prison current use 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 [facility] Work Phone: Evaluation note* Diagnosis Onset Date Resolution Status Rectal cancer 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 Rectal cancer acute Rectal cancer acute prison current use 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 Rectal cancer acute Rectal cancer acute History of rectal cancer acu te Abdominal pain resolved Enteritis resolved Rectal cancer acute Encounter for education [place] Rectal cancer 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 Chemotherapy management, encounter for acute Rectal cancer acute prison current use 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 Obesity chronic CORRINA (obstructive sleep apnea) chronic Hypokalemia acute Rectal cancer 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 Chemotherapy management, encounter for acute Hypokalemia acute Hypophosphatemia acute Rectal cancer acute prison current use 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 Dry skin acute Hypokalemia acute Rectal cancer acute prison current use of 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 Chemotherapy management, encounter for acute Hypokalemia acute Hypophosphatemia acute Rectal cancer acute prison current use of 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 Fatigue acute Rectal cancer acute prison current use of 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 Chemotherapy management, encounter for acute Rectal cancer 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 [facility] Work Phone: Evaluation note* Diagnosis Malignant neoplasm of rectum (HCC)- Primary Malignant neoplasm [facility] Diagnosis Onset Date Resolution Status Rectal cancer acute prison current use of 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 Rectal cancer acute Rectal cancer acute History of rectal cancer acu te Abdominal pain resolved Enteritis resolved Rectal cancer acute Encounter for education [place] Rectal cancer 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 Chemotherapy management, encounter for acute Rectal cancer acute prison current use of 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 Obesity chronic CORRINA (obstructive sleep apnea) chronic Hypokalemia acute Rectal cancer acute prison current use of 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 Chemotherapy management, encounter for acute Hypokalemia acute Hypophosphatemia acute Rectal cancer acute prison current use of 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 Dry skin acute Hypokalemia acute Rectal cancer acute prison current use of 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 Chemotherapy management, encounter for acute Hypokalemia acute Hypophosphatemia acute Rectal cancer 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 Fatigue acute Rectal cancer acute prison current use of 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 Chemotherapy management, encounter for acute Rectal cancer 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 Low back pain acute Rectal cancer 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 Rectal cancer acute Chemotherapy follow-up examination acute Low back pain acute Rectal cancer 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 [facility] Work Phone: Evaluation note* Diagnosis Malignant neoplasm of rectum (HCC) Malignant neoplasm of rectum documented in this encounter [facility] note* Diagnosis Rectal cancer (HCC)- Primary Malignant neoplasm of rectum documented in this encounter [facility] note* Diagnosis Onset Date Resolution Status Rectal cancer acute History of rectal cancer acu te Abdominal pain resolved Enteritis resolved Rectal cancer acute Encounter for education [place] Rectal cancer acute prison current use of 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 Chemotherapy management, encounter for acute Rectal cancer 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 Obesity chronic CORRINA (obstructive sleep apnea) chronic Hypokalemia acute Rectal cancer 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 Chemotherapy management, encounter for acute Hypokalemia acute Hypophosphatemia acute Rectal cancer acute prison current use of 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 Dry skin acute Hypokalemia acute Rectal cancer 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 Chemotherapy management, encounter for acute Hypokalemia acute Hypophosphatemia acute Rectal cancer acute prison current use of 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 Fatigue acute Rectal cancer acute prison current use of 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 Chemotherapy management, encounter for acute Rectal cancer 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 Low back pain acute Rectal cancer acute prison current use of 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 Rectal cancer acute Chemotherapy follow-up examination acute Low back pain acute Rectal cancer 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 Degenerative spondylolisthesis acute Facet arthritis, degenerative, lumbar spine acute Hydroureter, right acute Kidney stone on right side a cute Renal colic on right side ac [place] [facility] Work Phone: Evaluation note* Diagnosis Onset Date Resolution Status History of rectal cancer acu te Abdominal pain resolved Enteritis resolved Rectal cancer acute Encounter for education [place] Rectal cancer 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 Chemotherapy management, encounter for acute Rectal cancer acute prison current use of 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 Obesity chronic CORRINA (obstructive sleep apnea) chronic Hypokalemia acute Rectal cancer acute prison current use of 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 Chemotherapy management, encounter for acute Hypokalemia acute Hypophosphatemia acute Rectal cancer 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 Dry skin acute Hypokalemia acute Rectal cancer acute prison current use of 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 Chemotherapy management, encounter for acute Hypokalemia acute Hypophosphatemia acute Rectal cancer 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 Fatigue acute Rectal cancer 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 Chemotherapy management, encounter for acute Rectal cancer acute prison current use of 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 Low back pain acute Rectal cancer acute prison current use of 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 Rectal cancer acute Chemotherapy follow-up examination acute Low back pain acute Rectal cancer 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 Degenerative spondylolisthesis acute Facet arthritis, degenerative, lumbar spine acute Hydroureter, right acute Kidney stone on right side a cute Renal colic on right side [facility] Work Phone: Evaluation note* Diagnosis Onset Date Resolution Status Rectal cancer acute Encounter for education [place] Rectal cancer 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 Chemotherapy management, encounter for acute Rectal cancer acute prison current use of 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 Obesity chronic CORRINA (obstructive sleep apnea) chronic Hypokalemia acute Rectal cancer acute prison current use of 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 Chemotherapy management, encounter for acute Hypokalemia acute Hypophosphatemia acute Rectal cancer acute prison current use of 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 Dry skin acute Hypokalemia acute Rectal cancer acute prison current use of 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 Chemotherapy management, encounter for acute Hypokalemia acute Hypophosphatemia acute Rectal cancer acute prison current use of 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 Fatigue acute Rectal cancer 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 Chemotherapy management, encounter for acute Rectal cancer acute prison current use of 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 Low back pain acute Rectal cancer acute prison current use of 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 Rectal cancer acute Chemotherapy follow-up examination acute Low back pain acute Rectal cancer acute prison current use of 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 Degenerative spondylolisthesis acute Facet arthritis, degenerative, lumbar spine acute Hydroureter, right acute Kidney stone on right side a cute Renal colic on right side [facility] Work Phone: Evaluation note* Diagnosis Rectal cancer (HCC)- Primary Malignant neoplasm of rectum [facility] Onset Date Resolution Status Chemotherapy management, encounter for acute Rectal cancer 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 Obesity chronic CORRINA (obstructive sleep apnea) chronic Hypokalemia acute Rectal cancer acute prison current use of 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 Chemotherapy management, encounter for acute Hypokalemia acute Hypophosphatemia acute Rectal cancer 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 Dry skin acute Hypokalemia acute Rectal cancer 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 Chemotherapy management, encounter for acute Hypokalemia acute Hypophosphatemia acute Rectal cancer acute prison current use of 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 Fatigue acute Rectal cancer 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 Chemotherapy management, encounter for acute Rectal cancer 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 Low back pain acute Rectal cancer acute prison current use of 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 Rectal cancer acute Chemotherapy follow-up examination acute Low back pain acute Rectal cancer 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 Degenerative spondylolisthesis acute Facet arthritis, degenerative, lumbar spine acute Hydroureter, right acute Kidney stone on right side a cute Renal colic on right side ac white earth Facet arthritis, degenerative, lumbar spine acute [facility] Work Phone: Evaluation note* Diagnosis Onset Date Resolution Status Obesity chronic CORRINA (obstructive sleep apnea) chronic Hypokalemia acute Rectal cancer 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 Chemotherapy management, encounter for acute Hypokalemia acute Hypophosphatemia acute Rectal cancer acute prison current use of 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 Dry skin acute Hypokalemia acute Rectal cancer acute prison current use of 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 Chemotherapy management, encounter for acute Hypokalemia acute Hypophosphatemia acute Rectal cancer 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 Fatigue acute Rectal cancer acute prison current use of 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 Chemotherapy management, encounter for acute Rectal cancer 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 Low back pain acute Rectal cancer acute prison current use of 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 Rectal cancer acute Chemotherapy follow-up examination acute Low back pain acute Rectal cancer 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 Degenerative spondylolisthesis acute Facet arthritis, degenerative, lumbar spine acute Hydroureter, right acute Kidney stone on right side a cute Renal colic on right side ac white earth Facet arthritis, degenerative, lumbar spine acute [facility] Work Phone: Evaluation note* Diagnosis Onset Date Resolution Status Dry skin acute Hypokalemia acute prison current use of 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 Rectal cancer chronic Chemotherapy management, encounter for acute Hypokalemia acute Hypophosphatemia acute prison current use of 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 Rectal cancer chronic Fatigue 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 Rectal cancer chronic Chemotherapy management, encounter for 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 Rectal cancer chronic prison current use of 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 Low back pain chronic Rectal cancer chronic Rectal cancer chronic Chemotherapy follow-up examination 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 Low back pain chronic Rectal cancer chronic Degenerative spondylolisthesis acute Facet arthritis, degenerative, lumbar spine acute Hydroureter, right acute Kidney stone on right side a cute Renal colic on right side ac white earth Facet arthritis, degenerative, lumbar spine acute Iron deficiency 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 Low back pain chronic Rectal cancer chronic Degenerative spondylolisthesis acute Spondylolisthesis at L4-L5 level acute [facility] Work Phone: Evaluation note* Diagnosis Malignant neoplasm of rectum (HCC)- Primary Malignant neoplasm of rectum documented in this encounter [facility] note* Diagnosis Malignant neoplasm of rectum (HCC)- Primary Malignant neoplasm of rectum documented in this encounter [facility] note* Diagnosis Malignant neoplasm of rectum (HCC) Malignant neoplasm of rectum documented in this encounter [facility] note* Diagnosis Malignant neoplasm of rectum (HCC)- Primary Malignant neoplasm of rectum documented in this encounter [facility] note* Diagnosis Malignant neoplasm of rectum (HCC) Malignant neoplasm of rectum documented in this encounter [facility] note* Diagnosis Rectal cancer (HCC)- Primary Malignant neoplasm of rectum documented in this encounter [facility] note* Diagnosis Rectal cancer (HCC)- Primary Malignant neoplasm of rectum documented in this encounter [facility] note* Diagnosis Atrial fibrillation, unspecified type (HCC) documented in this encounter [facility] note* Diagnosis Malignant neoplasm of rectum (HCC)- Primary Malignant neoplasm of rectum Obesity, unspecified class, unspecified obesity type, unspecified whether serious comorbidity present documented in this encounter [facility] note* Diagnosis Paroxysmal atrial fibrillation (HCC)- Primary Atrial fibrillation Paroxysmal atrial fibrillation (HCC)- Primary Atrial fibrillation Paroxysmal atrial fibrillation (HCC) Atrial fibrillation documented in this encounter [facility] note* Diagnosis Paroxysmal atrial fibrillation (HCC)- Primary Atrial fibrillation Paroxysmal atrial fibrillation (HCC)- Primary Atrial fibrillation Paroxysmal atrial fibrillation (HCC) Atrial fibrillation documented in this encounter [facility] note* Diagnosis Paroxysmal atrial fibrillation (HCC)- Primary Atrial fibrillation Paroxysmal atrial fibrillation (HCC)- Primary Atrial fibrillation Paroxysmal atrial fibrillation (HCC) Atrial fibrillation documented in this encounter [facility] note* Diagnosis Paroxysmal atrial fibrillation (HCC)- Primary Atrial fibrillation Paroxysmal atrial fibrillation (HCC)- Primary Atrial fibrillation Paroxysmal atrial fibrillation (HCC) Atrial fibrillation documented in this encounter [facility] note* Diagnosis Paroxysmal atrial fibrillation (HCC)- Primary Atrial fibrillation Paroxysmal atrial fibrillation (HCC)- Primary Atrial fibrillation Paroxysmal atrial fibrillation (HCC) Atrial fibrillation documented in this encounter [facility] note* Diagnosis Paroxysmal atrial fibrillation (HCC)- Primary Atrial fibrillation Paroxysmal atrial fibrillation (HCC)- Primary Atrial fibrillation Paroxysmal atrial fibrillation (HCC) Atrial fibrillation documented in this encounter [facility] note* Diagnosis Paroxysmal atrial fibrillation (HCC)- Primary Atrial fibrillation Paroxysmal atrial fibrillation (HCC)- Primary Atrial fibrillation Paroxysmal atrial fibrillation (HCC) Atrial fibrillation documented in this encounter [facility] note* Diagnosis Paroxysmal atrial fibrillation (HCC)- Primary Atrial fibrillation Paroxysmal atrial fibrillation (HCC)- Primary Atrial fibrillation Paroxysmal atrial fibrillation (HCC) Atrial fibrillation documented in this encounter [facility] note* Diagnosis Paroxysmal atrial fibrillation (HCC)- Primary Atrial fibrillation Paroxysmal atrial fibrillation (HCC)- Primary Atrial fibrillation Paroxysmal atrial fibrillation (HCC) Atrial fibrillation documented in this encounter [facility] note* Diagnosis Paroxysmal atrial fibrillation (HCC)- Primary Atrial fibrillation Paroxysmal atrial fibrillation (HCC)- Primary Atrial fibrillation Paroxysmal atrial fibrillation (HCC) Atrial fibrillation documented in this encounter [facility] note* Diagnosis Paroxysmal atrial fibrillation (HCC)- Primary Atrial fibrillation documented in this encounter [facility] note* Diagnosis Paroxysmal atrial fibrillation (HCC)- Primary Atrial fibrillation Paroxysmal atrial fibrillation (HCC) Atrial fibrillation documented in this encounter [facility] note* Diagnosis Obesity, unspecified class, unspecified obesity type, unspecified whether serious comorbidity present- Primary CORRINA (obstructive sleep apnea) Obstructive sleep apnea (adult) (pediatric) Obesity, Class III, BMI >= 40 Morbid obesity documented in this encounter [facility] note* Diagnosis Malignant neoplasm of rectum (HCC) Malignant neoplasm of rectum documented in this encounter [facility] note* Diagnosis Rectal cancer (HCC)- Primary Malignant neoplasm of rectum documented in this encounter [facility] note* Diagnosis Obesity, unspecified class, unspecified obesity type, unspecified whether serious comorbidity present CORRINA (obstructive sleep apnea) Obstructive sleep apnea (adult) (pediatric) documented in this encounter [facility] note* Diagnosis Paroxysmal atrial fibrillation (HCC)- Primary Atrial fibrillation CORRINA (obstructive sleep apnea) Obstructive sleep apnea (adult) (pediatric) Primary hypertension Unspecified essential hypertension documented in this encounter [facility] note* Diagnosis Rectal cancer (HCC)- Primary Malignant neoplasm of rectum Malignant neoplasm of rectum (HCC) Malignant neoplasm of rectum documented in this encounter [facility] note* Diagnosis Rectal cancer (HCC)- Primary Malignant neoplasm of rectum documented in this encounter [facility] note* Diagnosis Malignant neoplasm of rectum (HCC)- Primary Malignant neoplasm of rectum [facility] Additional Instructions Do not take your Coumadin dose today and tomorrow. Call your oncologist for a repeat INR study on Thursday. Based on your INR study on Thursday, recommendations on continued dosing on your Coumadin will need to be made. If bleeding starts again, hold direct pressure for 25 minutes, if it does not stop, return to the [facility] Work Phone: Hospital Discharge instructions Additional Instructions Please follow-up with your oncologist. Hold your statin until finished with Paxlovid. Make sure you maintain hydration, use ibuprofen, [facility]ol[facility]: Hospital Discharge instructions Additional Instructions Percocet for more severe pain. Prednisone daily for a week Follow-up with your doctor if not improving.[facility] Work Phone: Hospital Discharge instructions Additional Instructions Date of Discharge: 11/13/23[facility] Work Phone: Reirbp for referral (narrative)No reason for referral information availableOhiohealth [facility]ide [facility] Work Phone: Rehkvl for visit Narrative* Auth/Cert (Routine) Specialty Diagnoses / Procedures Referred By Contac t Referred To Contact Diagnoses Paroxysmal atrial fibrillation (HCC) Paroxysmal atrial fibrillation (HCC) [I48.0] Procedures Ablation a-fib paroxysmal Aylin Henry MD [address] [place] [address] Phone: tel: fax: [facility] Cath/EP Lab [address] [place] [phone] Phone: tel: Referral ID Status Reason Start Date Expiration Date Visits Re quested Visits Authorized [id number] 1 1 [facility] for visit Narrative* MRI/CT (Routine) - Closed Specialty Diagnoses / Procedures Referred By Iggy t Referred To Contact CT IMAGING Diagnoses Malignant neoplasm of rectum (HCC) Procedures CT CHEST W IVCON DIAGNOSTIC COMPUTED TOMOGRAPHY THORAX W/CONTRAST Ernesto Aguiar MD [address] [place] [address] Phone: tel: fax: [place] [phone] Referral ID Status Reason Start Date Expiration Date V isits Requested Visits Authorized [id number] Closed Auto-Generate d Referral 09/13/2024 10/13/2025 1 1 [facility] Summary Purpose Family History No Family History Records Found Relationship Condition Age at Onset Recorded Date/T colleen mother Coronary artery disease Unknown Diabetes mellitus Unknown Hypertension Unknown Hyperlipidemia Unknown Cardiac disease Unknown father Cerebrovascular accident (CVA) Unknown Advance Directives No Advanced Directives Records Found Advance Directive Response Recorded Date/ Time Advance Directives No October 21, 2018 7:58am Living Will No October 31 12:51pm Power of Commercial Artist No October 31, 2019 12:51pm Advance Directive Response Recorded Date/ Time Advance Directives No October 21, 2018 7:58am Living Will No January 21, 2022 8 :37am Power of Commercial Artist No January 21, 2022 8:37am Advance Directive Response Recorded Date/ Time Advance Directives No May 13, 2022 1:48pm Living Will No May 13 2 1:48pm Power of Commercial Artist No May 13 022 1:48pm Advance Directive Response Recorded Date/ Time Advance Directives No May 13, 2022 12:48pm Living Will No May 13 2 12:48pm Power of Commercial Artist No May 13 022 12:48pm Advance Directive Response Recorded Date/ Time Advance Directives No May 13, 2022 1:48pm Living Will No May 01 3 12:08pm Power of Commercial Artist No May 01 023 12:08pm Advance Directive Response Recorded Date/ Time Advance Directives No May 13, 2022 1:48pm Living Will No July 12 9:37am Power of Commercial Artist No July 12, 2023 9:37am Advance Directive Response Recorded Date/ Time Advance Directives No May 13, 2022 1:48pm Living Will No July 15 4:16pm Power of Commercial Artist No July 15, 2023 4:16pm Advance Directive Response Recorded Date/ Time Advance Directives No May 13, 2022 1:48pm Living Will No July 15 9:46pm Power of Commercial Artist No July 15, 2023 9:46pm Advance Directive Response Recorded Date/ Time Advance Directives No May 13, 2022 12:48pm Living Will No July 19 2:18pm Power of Commercial Artist No July 19, 2023 2:18pm Advance Directive Response Recorded Date/ Time Advance Directives on File No Nikki 2022 10:29am Advance Directives No August 10:29am Living Will No August 31 023 10:29am Power of Commercial Artist No August 31, 2023 10:29am Advance Directive Response Recorded Date/ Time Advance Directives No October 12, 2023 10:40am Living Will No October 25 8:55am Power of Commercial Artist No October 25, 2023 8:55am Advance Directives on File No 2023 10:40am Advance Directive Response Recorded Date/ Time Advance Directives on File No 2023 10:40am Advance Directives No October 12, 2023 10:40am Living Will No November 11 1:05pm Power of Commercial Artist No November 11, 2023 1:05pm Advance Directive Response Recorded Date/ Time Advance Directives on File No 2023 10:40am Advance Directives No October 12, 2023 10:40am Living Will No November 11 024 8:05pm Power of Commercial Artist No November 11, 2023 8:05pm Advance Directive Response Recorded Date/ Time Advance Directives on File No Sepstephen 2023 11:40am Advance Directives No October 12, 2023 11:40am Living Will No November 11 9:05pm Power of Commercial Artist No November 11, 2023 9:05pm Advance Directive Response Recorded Date/ Time Advance Directives on File No Daphne 2023 11:40am Advance Directives No October 12, 2023 11:40am Living Will No December 03, 2023 8:55pm Power of Commercial Artist No December 02 8:55pm Date Activated Date Inactivated Comments 10/04/2024 8:29 AM 10/04/2024 6:14 PM Date Activated Date Inactivated Comments 10/04/2024 8:29 AM 10/04/2024 6:14 PM Advance Directive Response Recorded Date/ Time Living Will No May 12 2:19pm Do you have a Healthcare Power of Commercial Artist? No May 12, 2024 2:19pm Advance Directives on File No Daphne 2023 11:40am Living Will No October 12 11:40am Do you have a Healthcare Power of Commercial Artist? No October 12, 2023 11:40am Advance Directives No October 12, 2023 11:40am Chief Complaint and Reason for Visit Chief Complaint S/O INR S/O INR LUMBER SPINE S/O INR 3 M FU S/O INR 1 Y FU COUGH, URI SX'S S/O INR Reason for Visit Degenerative spondyl olisthesis Benign essential hypertension Hyperlipidemia Paroxysmal atrial fibrillation Obesity CORRINA (obstructive sleep apnea) Acute cough Sinusitis Chief Complaint S/O INR 3 M FU S/O INR 1 Y FU COUGH, URI SX'S S/O INR S/O INR Reason for Visit Benign essential hyp ertension Hyperlipidemia Paroxysmal atrial fibrillation Obesity CORRINA (obstructive sleep apnea) Acute cough Sinusitis Chief Complaint S/O INR 3 M FU S/O INR 1 Y FU COUGH, URI SX'S S/O INR S/O INR S/O INR CP Reason for Visit Benign essential hyp ertension Hyperlipidemia Paroxysmal atrial fibrillation Obesity CORRINA (obstructive sleep apnea) Acute cough Sinusitis Chief Complaint 3 M FU S/O INR 1 Y FU COUGH, URI SX'S S/O INR S/O INR S/O INR CP Reason for Visit Benign essential hyp ertension Hyperlipidemia Paroxysmal atrial fibrillation Obesity CORRINA (obstructive sleep apnea) Acute cough Sinusitis Chief Complaint 1 Y FU COUGH, URI SX'S S/O INR S/O INR S/O INR CP S/O INR Reason for Visit Obesity CORRINA (obstructive sleep apnea) Acute cough Sinusitis Chief Complaint S/O INR S/O INR CP S/O INR S/O INR Chief Complaint S/O INR CP S/O INR S/O INR S/O INR HIP PAIN- BOTH Chief Complaint S/O INR S/O INR S/O INR HIP PAIN- BOTH BILAT HIPS S/O INR Reason for Visit Acquired deformity o f left hip Lumbar degenerative disc disease Spondylolisthesis at L4-L5 level Chief Complaint S/O INR S/O INR HIP PAIN- BOTH BILAT HIPS S/O INR S/O INR Reason for Visit Acquired deformity o f left hip Lumbar degenerative disc disease Spondylolisthesis at L4-L5 level Chief Complaint S/O INR HIP PAIN- BOTH BILAT HIPS S/O INR S/O INR POST ACCIDENT DRUG SCREEN/[place] TRUCK S/O INR 1 W FU 9 M FU Reason for Visit Acquired deformity o f left hip Lumbar degenerative disc disease Spondylolisthesis at L4-L5 level Right shoulder tendonitis Right shoulder tendonitis Benign essential hypertension Hyperlipidemia Paroxysmal atrial fibrillation Chief Complaint BILAT HIPS S/O INR S/O INR POST ACCIDENT DRUG SCREEN/[place] TRUCK S/O INR 1 W FU 9 M FU F/U [place] QUETA 6 M FU S/O INR Reason for Visit Acquired deformity o f left hip Lumbar degenerative disc disease Spondylolisthesis at L4-L5 level Right shoulder tendonitis Right shoulder tendonitis Benign essential hypertension Hyperlipidemia Paroxysmal atrial fibrillation Right shoulder tendonitis Obesity CORRINA (obstructive sleep apnea) Chief Complaint S/O INR POST ACCIDENT DRUG SCREEN/[place] TRUCK S/O INR 1 W FU 9 M FU F/U [place] QUETA 6 M FU S/O INR S/O INR Reason for Visit Right shoulder tendo nitis Right shoulder tendonitis Benign essential hypertension Hyperlipidemia Paroxysmal atrial fibrillation Right shoulder tendonitis Obesity CORRINA (obstructive sleep apnea) Chief Complaint POST ACCIDENT DRUG S CREEN/[place] TRUCK S/O INR 1 W FU 9 M FU F/U [place] QUETA 6 M FU S/O INR S/O INR Other cervical disc degeneration, unspecified cerv S/O INR Reason for Visit Right shoulder tendo nitis Right shoulder tendonitis Benign essential hypertension Hyperlipidemia Paroxysmal atrial fibrillation Right shoulder tendonitis Obesity CORRINA (obstructive sleep apnea) Chief Complaint 9 M FU F/U [place] QUETA 6 M FU S/O INR S/O INR Other cervical disc degeneration, unspecified cerv S/O INR S/O INR Reason for Visit Benign essential hyp ertension Hyperlipidemia Paroxysmal atrial fibrillation Right shoulder tendonitis Obesity CORRINA (obstructive sleep apnea) Chief Complaint F/U [place] TRUCKIN G 6 M FU S/O INR S/O INR Other cervical disc degeneration, unspecified cerv S/O INR S/O INR Reason for Visit Right shoulder tendo nitis Obesity CORRINA (obstructive sleep apnea) Chief Complaint Other cervical disc degeneration, unspecified cerv S/O INR S/O INR S/O INR 6 M FU S/O INR Reason for Visit Benign essential hyp ertension Hyperlipidemia Paroxysmal atrial fibrillation Chief Complaint S/O INR S/O INR 6 M FU S/O INR LUMBER SPINE Room 4 S/O INR BACK, HIP PN/RX HERE Reason for Visit Benign essential hyp ertension Hyperlipidemia Paroxysmal atrial fibrillation Lumbar degenerative disc disease Lumbar facet joint syndrome Spondylolisthesis at L4-L5 level Chief Complaint S/O INR 6 M FU S/O INR LUMBER SPINE Room 4 S/O INR BACK, HIP PN/RX HERE S/O INR RECTAL BLEED Reason for Visit Benign essential hyp ertension Hyperlipidemia Paroxysmal atrial fibrillation Lumbar degenerative disc disease Lumbar facet joint syndrome Spondylolisthesis at L4-L5 level History of pulmonary embolism Rectal bleeding Gastroesophageal reflux disease prison current use of anticoagulant Paroxysmal atrial fibrillation Chief Complaint S/O INR 6 M FU S/O INR LUMBER SPINE Room 4 S/O INR BACK, HIP PN/RX HERE S/O INR RECTAL BLEED RECTAL MASS Reason for Visit Benign essential hyp ertension Hyperlipidemia Paroxysmal atrial fibrillation Lumbar degenerative disc disease Lumbar facet joint syndrome Spondylolisthesis at L4-L5 level History of pulmonary embolism Rectal bleeding Gastroesophageal reflux disease 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 Paroxysmal atrial fibrillation Chief Complaint 6 M FU S/O INR LUMBER SPINE Room 4 S/O INR BACK, HIP PN/RX HERE S/O INR RECTAL BLEED RECTAL MASS Discuss scope and CT results Reason for Visit Benign essential hyp ertension Hyperlipidemia Paroxysmal atrial fibrillation Lumbar degenerative disc disease Lumbar facet joint syndrome Spondylolisthesis at L4-L5 level History of pulmonary embolism Rectal bleeding Gastroesophageal reflux disease 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 Paroxysmal atrial fibrillation Left thyroid nodule Rectal cancer Chief Complaint 6 M FU S/O INR LUMBER SPINE Room 4 S/O INR BACK, HIP PN/RX HERE S/O INR RECTAL BLEED RECTAL MASS Discuss scope and CT results NEW-RECTAL CA No labs needed- Left arm preferred AFIB CONSULT - RECTAL MALIGNANT NEOPLASM RECTUM *ATTENTION TO RECTUM* Reason for Visit Benign essential hyp ertension Hyperlipidemia Paroxysmal atrial fibrillation Lumbar degenerative disc disease Lumbar facet joint syndrome Spondylolisthesis at L4-L5 level History of pulmonary embolism Rectal bleeding Gastroesophageal reflux disease 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 Paroxysmal atrial fibrillation Left thyroid nodule Rectal cancer Rectal cancer Rectal cancer Chief Complaint 6 M FU S/O INR LUMBER SPINE Room 4 S/O INR BACK, HIP PN/RX HERE S/O INR RECTAL BLEED RECTAL MASS Discuss scope and CT results NEW-RECTAL CA AFIB CONSULT - RECTAL MALIGNANT NEOPLASM RECTUM *ATTENTION TO RECTUM* Amb Documentation [id number] PRIOR REVIEW MRI No labs needed- Left arm preferred Reason for Visit Benign essential hyp ertension Hyperlipidemia Paroxysmal atrial fibrillation Lumbar degenerative disc disease Lumbar facet joint syndrome Spondylolisthesis at L4-L5 level History of pulmonary embolism Rectal bleeding Gastroesophageal reflux disease prison current use of anticoagulant Paroxysmal atrial fibrillation Left thyroid nodule Rectal cancer Rectal cancer Rectal cancer Rectal cancer Chief Complaint LUMBER SPINE Room 4 S/O INR BACK, HIP PN/RX HERE S/O INR RECTAL BLEED RECTAL MASS Discuss scope and CT results NEW-RECTAL CA AFIB CONSULT - RECTAL MALIGNANT NEOPLASM RECTUM *ATTENTION TO RECTUM* Amb Documentation [id number] PRIOR REVIEW MRI S/O INR CHEMO ED [facility] OTV 1[facility] OTV 1[facility] OTV Left thyroid FNA LEFT THYROID NODULE 1[facility] OTV No labs needed- Left arm preferred Reason for Visit Lumbar degenerative disc disease Lumbar facet joint syndrome Spondylolisthesis at L4-L5 level History of pulmonary embolism Rectal bleeding Gastroesophageal reflux disease 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 Paroxysmal atrial fibrillation Left thyroid nodule Rectal cancer Rectal cancer Rectal cancer Rectal cancer Encounter for education Rectal cancer prison current use of anticoagulant Rectal cancer prison current use of anticoagulant Rectal cancer Rectal cancer prison current use of anticoagulant Rectal cancer Rectal cancer 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 Rectal cancer Left thyroid nodule Rectal cancer 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 Rectal cancer Chief Complaint BACK, HIP PN/RX HERE S/O INR RECTAL BLEED RECTAL MASS Discuss scope and CT results NEW-RECTAL CA AFIB CONSULT - RECTAL MALIGNANT NEOPLASM RECTUM *ATTENTION TO RECTUM* Amb Documentation [id number] PRIOR REVIEW MRI S/O INR CHEMO ED 1WK LABS OTV 1WK LABS OTV 1WK LABS OTV Left thyroid FNA LEFT THYROID NODULE 1WK LABS OTV 1WK LABS OTV 1WK LABS OTV No labs needed- Left arm preferred BLEEDING WOUNDS, GI BLEED, Reason for Visit History of pulmonary embolism Rectal bleeding Gastroesophageal reflux disease 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 Paroxysmal atrial fibrillation Left thyroid nodule Rectal cancer Rectal cancer Rectal cancer Rectal cancer Encounter for education Rectal cancer 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 Rectal cancer 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 Rectal cancer Rectal cancer prison current use of anticoagulant Rectal cancer Rectal cancer prison current use of anticoagulant Rectal cancer Left thyroid nodule Rectal cancer prison current use of anticoagulant Rectal cancer Rectal cancer 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 Rectal cancer Rectal cancer 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 Rectal cancer Chief Complaint BACK, HIP PN/RX HERE S/O INR RECTAL BLEED RECTAL MASS Discuss scope and CT results NEW-RECTAL CA AFIB CONSULT - RECTAL MALIGNANT NEOPLASM RECTUM *ATTENTION TO RECTUM* Amb Documentation 2WKS [facility]S PRIOR REVIEW MRI S/O INR CHEMO ED 1WK LABS OTV 1WK LABS OTV 1WK LABS OTV Left thyroid FNA LEFT THYROID NODULE 1WK LABS OTV 1WK LABS OTV 1WK LABS OTV No labs needed- Left arm preferred BLEEDING WOUNDS, GI BLEED, PORT RC 11/6 S/O INR PERITONITIS, ENTERITIS Reason for Visit History of pulmonary embolism Rectal bleeding Gastroesophageal reflux disease 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 Paroxysmal atrial fibrillation Left thyroid nodule Rectal cancer Rectal cancer Rectal cancer Rectal cancer Encounter for education Rectal cancer prison current use of anticoagulant Rectal cancer prison current use of anticoagulant Rectal cancer Rectal cancer 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 Rectal cancer Rectal cancer prison current use of anticoagulant Rectal cancer Left thyroid nodule Rectal cancer 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 Rectal cancer Rectal cancer 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 Rectal cancer Rectal cancer 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 Rectal cancer Abdominal pain Enteritis History of rectal cancer Chief Complaint BACK, HIP PN/RX HERE S/O INR RECTAL BLEED RECTAL MASS Discuss scope and CT results NEW-RECTAL CA AFIB CONSULT - RECTAL MALIGNANT NEOPLASM RECTUM *ATTENTION TO RECTUM* Amb Documentation 2[facility]KS [facility] PRIOR REVIEW MRI S/O INR CHEMO ED 1WK LABS OTV 1WK LABS OTV 1WK LABS OTV Left thyroid FNA LEFT THYROID NODULE 1WK LABS OTV 1WK LABS OTV 1WK LABS OTV No labs needed- Left arm preferred BLEEDING WOUNDS, GI BLEED, PORT RC 11/6 S/O INR PERITONITIS, ENTERITIS PERITONITIS, ENTERITIS PERITONITIS, ENTERITIS PERITONITIS, ENTERITIS PERITONITIS, ENTERITIS PERITONITIS, ENTERITIS PERITONITIS, ENTERITIS Reason for Visit History of pulmonary embolism Rectal bleeding Gastroesophageal reflux disease prison current use of anticoagulant Paroxysmal atrial fibrillation Left thyroid nodule Rectal cancer Rectal cancer Rectal cancer Rectal cancer Encounter for education Rectal cancer prison current use of anticoagulant Rectal cancer prison current use of anticoagulant Rectal cancer Rectal cancer prison current use of anticoagulant Rectal cancer Rectal cancer prison current use of anticoagulant Rectal cancer Left thyroid nodule Rectal cancer prison current use of anticoagulant Rectal cancer Rectal cancer 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 Rectal cancer Rectal cancer 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 Rectal cancer Rectal cancer Abdominal pain Enteritis History of rectal cancer Chief Complaint BACK, HIP PN/RX HERE S/O INR RECTAL BLEED RECTAL MASS Discuss scope and CT results NEW-RECTAL CA AFIB CONSULT - RECTAL MALIGNANT NEOPLASM RECTUM *ATTENTION TO RECTUM* Amb Documentation 2[facility] PRIOR REVIEW MRI S/O INR CHEMO ED 1WK LABS OTV 1WK LABS OTV 1WK LABS OTV Left thyroid FNA LEFT THYROID NODULE 1WK LABS OTV 1WK LABS OTV 1WK LABS OTV No labs needed- Left arm preferred BLEEDING WOUNDS, GI BLEED, PORT RC 11/6 S/O INR PERITONITIS, ENTERITIS PERITONITIS, ENTERITIS PERITONITIS, ENTERITIS PERITONITIS, ENTERITIS PERITONITIS, ENTERITIS PERITONITIS, ENTERITIS PERITONITIS, ENTERITIS fever Reason for Visit History of pulmonary embolism Rectal bleeding Gastroesophageal reflux disease prison current use of anticoagulant Paroxysmal atrial fibrillation Left thyroid nodule Rectal cancer Rectal cancer Rectal cancer Rectal cancer Encounter for education Rectal cancer prison current use of anticoagulant Rectal cancer prison current use of anticoagulant Rectal cancer Rectal cancer prison current use of anticoagulant Rectal cancer Rectal cancer 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 Rectal cancer Left thyroid nodule Rectal cancer prison current use of anticoagulant Rectal cancer Rectal cancer 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 Rectal cancer Rectal cancer 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 Rectal cancer Rectal cancer Abdominal pain Enteritis History of rectal cancer Chief Complaint RECTAL BLEED RECTAL MASS Discuss scope and CT results NEW-RECTAL CA AFIB CONSULT - RECTAL MALIGNANT NEOPLASM RECTUM *ATTENTION TO RECTUM* Amb Documentation 2[facility]KS [facility]S PRIOR REVIEW MRI S/O INR CHEMO ED 1WK LABS OTV 1WK LABS OTV 1WK LABS OTV Left thyroid FNA LEFT THYROID NODULE 1WK LABS OTV 1WK LABS OTV 1WK LABS OTV No labs needed- Left arm preferred BLEEDING WOUNDS, GI BLEED, PORT RC 11/6 S/O INR PERITONITIS, ENTERITIS PERITONITIS, ENTERITIS PERITONITIS, ENTERITIS PERITONITIS, ENTERITIS PERITONITIS, ENTERITIS PERITONITIS, ENTERITIS PERITONITIS, ENTERITIS fever 1 MONTH F/U POST RT RECTALW CHEMO ED Insertion, Vascular Port Insertion, Vascular Port Reason for Visit History of pulmonary embolism Rectal bleeding Gastroesophageal reflux disease 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 Paroxysmal atrial fibrillation Left thyroid nodule Rectal cancer Rectal cancer Rectal cancer Rectal cancer Encounter for education Rectal cancer prison current use of anticoagulant Rectal cancer 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 Rectal cancer Rectal cancer prison current use of anticoagulant Rectal cancer Rectal cancer 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 Rectal cancer Left thyroid nodule Rectal cancer 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 Rectal cancer Rectal cancer prison current use of anticoagulant Rectal cancer Rectal cancer 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 Rectal cancer Rectal cancer History of rectal cancer Abdominal pain Enteritis Rectal cancer Encounter for education Rectal cancer prison current use of anticoagulant Chief Complaint NEW-RECTAL CA AFIB CONSULT - RECTAL MALIGNANT NEOPLASM RECTUM *ATTENTION TO RECTUM* Amb Documentation 2[facility]KS [facility]S PRIOR REVIEW MRI S/O INR CHEMO ED 1WK LABS OTV 1WK LABS OTV 1WK LABS OTV Left thyroid FNA LEFT THYROID NODULE 1WK LABS OTV 1WK LABS OTV 1WK LABS OTV BLEEDING WOUNDS, GI BLEED, PORT RC 11/6 S/O INR PERITONITIS, ENTERITIS PERITONITIS, ENTERITIS PERITONITIS, ENTERITIS PERITONITIS, ENTERITIS PERITONITIS, ENTERITIS PERITONITIS, ENTERITIS PERITONITIS, ENTERITIS fever 1 MONTH F/U POST RT RECTALW CHEMO ED Insertion, Vascular Port Insertion, Vascular Port 1WK LABS NEW START 1 Y FU S/O INR 2WKS [facility] TOX CHECK No labs needed- Left arm preferred 1WK LABS TX INR lab draw Reason for Visit Rectal cancer Rectal cancer Rectal cancer Encounter for education Rectal cancer prison current use of anticoagulant Rectal cancer prison current use of anticoagulant Rectal cancer Rectal cancer 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 Rectal cancer Rectal cancer prison current use of anticoagulant Rectal cancer Left thyroid nodule Rectal cancer prison current use of anticoagulant Rectal cancer Rectal cancer 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 Rectal cancer Rectal cancer 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 Rectal cancer Rectal cancer History of rectal cancer Abdominal pain Enteritis Rectal cancer Encounter for education Rectal cancer 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 Chemotherapy management, encounter for Rectal cancer 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 Obesity CORRINA (obstructive sleep apnea) Hypokalemia Rectal cancer 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 Chemotherapy management, encounter for Hypokalemia Hypophosphatemia Rectal cancer 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 Chief Complaint MALIGNANT NEOPLASM R ECTUM *ATTENTION TO RECTUM* Amb Documentation 2[facility]KS [facility]S PRIOR REVIEW MRI S/O INR CHEMO ED 1WK LABS OTV 1WK LABS OTV 1WK LABS OTV Left thyroid FNA LEFT THYROID NODULE 1WK LABS OTV 1WK LABS OTV 1WK LABS OTV BLEEDING WOUNDS, GI BLEED, PORT RC 11/6 S/O INR PERITONITIS, ENTERITIS PERITONITIS, ENTERITIS PERITONITIS, ENTERITIS PERITONITIS, ENTERITIS PERITONITIS, ENTERITIS PERITONITIS, ENTERITIS PERITONITIS, ENTERITIS fever 1 MONTH F/U POST RT RECTALW CHEMO ED Insertion, Vascular Port Insertion, Vascular Port 1WK LABS NEW START 1 Y FU S/O INR 2WKS [facility] TOX CHECK No labs needed- Left arm preferred 1WK LABS TX INR lab draw Reason for Visit Rectal cancer Encounter for education Rectal cancer prison current use of anticoagulant Rectal cancer 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 Rectal cancer Rectal cancer 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 Rectal cancer Rectal cancer prison current use of anticoagulant Rectal cancer Left thyroid nodule Rectal cancer prison current use of anticoagulant Rectal cancer Rectal cancer prison current use of anticoagulant Rectal cancer Rectal cancer prison current use of anticoagulant Rectal cancer Rectal cancer History of rectal cancer Abdominal pain Enteritis Rectal cancer Encounter for education Rectal cancer prison current use of anticoagulant Chemotherapy management, encounter for Rectal cancer prison current use of anticoagulant Obesity CORRINA (obstructive sleep apnea) Hypokalemia Rectal cancer 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 Chemotherapy management, encounter for Hypokalemia Hypophosphatemia Rectal cancer prison current use of anticoagulant Chief Complaint 1WK LABS OTV 1WK LABS OTV BLEEDING WOUNDS, GI BLEED, PORT RC 11/6 S/O INR PERITONITIS, ENTERITIS PERITONITIS, ENTERITIS PERITONITIS, ENTERITIS PERITONITIS, ENTERITIS PERITONITIS, ENTERITIS PERITONITIS, ENTERITIS PERITONITIS, ENTERITIS fever 1 MONTH F/U POST RT RECTALW CHEMO ED Insertion, Vascular Port Insertion, Vascular Port 1WK LABS NEW START 1 Y FU S/O INR 2WKS LABS TOX CHECK 1WK LABS TX INR lab draw 2WKS LABS TOX CHECK 3WKS LABS TX 2WKS LABS TOX CHECK No labs needed- Left arm preferred 1 WEEK, LABS, TX flank pain Reason for Visit Rectal cancer 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 Rectal cancer Rectal cancer prison current use of anticoagulant Rectal cancer Rectal cancer History of rectal cancer Abdominal pain Enteritis Rectal cancer Encounter for education Rectal cancer prison current use of anticoagulant Chemotherapy management, encounter for Rectal cancer 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 Obesity CORRINA (obstructive sleep apnea) Hypokalemia Rectal cancer 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 Chemotherapy management, encounter for Hypokalemia Hypophosphatemia Rectal cancer prison current use of anticoagulant Dry skin Hypokalemia Rectal cancer 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 Chemotherapy management, encounter for Hypokalemia Hypophosphatemia Rectal cancer prison current use of anticoagulant Fatigue Rectal cancer prison current use of anticoagulant Chemotherapy management, encounter for Rectal cancer prison current use of anticoagulant Chief Complaint 1WK LABS OTV BLEEDING WOUNDS, GI BLEED, PORT RC 11/6 S/O INR PERITONITIS, ENTERITIS PERITONITIS, ENTERITIS PERITONITIS, ENTERITIS PERITONITIS, ENTERITIS PERITONITIS, ENTERITIS PERITONITIS, ENTERITIS PERITONITIS, ENTERITIS fever 1 MONTH F/U POST RT RECTALW CHEMO ED Insertion, Vascular Port Insertion, Vascular Port 1WK LABS NEW START 1 Y FU S/O INR 2WKS LABS TOX CHECK 1WK LABS TX INR lab draw 2WKS LABS TOX CHECK 3WKS LABS TX 2WKS LABS TOX CHECK 1 WEEK, LABS, TX flank pain ACUTE LABS LOW BACK PAIN 3 MONTH F/U RECTAL No labs needed- Left arm preferred 3WKS LABS Reason for Visit Rectal cancer prison current use of anticoagulant Rectal cancer Rectal cancer History of rectal cancer Abdominal pain Enteritis Rectal cancer Encounter for education Rectal cancer prison current use of anticoagulant Chemotherapy management, encounter for Rectal cancer 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 Obesity CORRINA (obstructive sleep apnea) Hypokalemia Rectal cancer 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 Chemotherapy management, encounter for Hypokalemia Hypophosphatemia Rectal cancer 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 Dry skin Hypokalemia Rectal cancer 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 Chemotherapy management, encounter for Hypokalemia Hypophosphatemia Rectal cancer prison current use of anticoagulant Fatigue Rectal cancer 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 Chemotherapy management, encounter for Rectal cancer prison current use of anticoagulant Low back pain Rectal cancer 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 Rectal cancer Chemotherapy follow-up examination Low back pain Rectal cancer prison current use of anticoagulant Chief Complaint PORT RC 11/6 S/O INR PERITONITIS, ENTERITIS PERITONITIS, ENTERITIS PERITONITIS, ENTERITIS PERITONITIS, ENTERITIS PERITONITIS, ENTERITIS PERITONITIS, ENTERITIS PERITONITIS, ENTERITIS fever 1 MONTH F/U POST RT RECTALW CHEMO ED Insertion, Vascular Port Insertion, Vascular Port 1WK LABS NEW START 1 Y FU S/O INR 2WKS LABS TOX CHECK 1WK LABS TX INR lab draw 2WKS LABS TOX CHECK 3WKS LABS TX 2WKS LABS TOX CHECK 1 WEEK, LABS, TX flank pain ACUTE LABS LOW BACK PAIN 3 MONTH F/U RECTAL No labs needed- Left arm preferred 3WKS LABS lumbar spine LOW BACK PAIN S/O INR KIDNEY Reason for Visit Rectal cancer History of rectal cancer Abdominal pain Enteritis Rectal cancer Encounter for education Rectal cancer prison current use of anticoagulant Chemotherapy management, encounter for Rectal cancer prison current use of anticoagulant Obesity CORRINA (obstructive sleep apnea) Hypokalemia Rectal cancer prison current use of anticoagulant Chemotherapy management, encounter for Hypokalemia Hypophosphatemia Rectal cancer prison current use of anticoagulant Dry skin Hypokalemia Rectal cancer prison current use of anticoagulant Chemotherapy management, encounter for Hypokalemia Hypophosphatemia Rectal cancer prison current use of anticoagulant Fatigue Rectal cancer prison current use of anticoagulant Chemotherapy management, encounter for Rectal cancer 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 Low back pain Rectal cancer prison current use of anticoagulant Rectal cancer Chemotherapy follow-up examination Low back pain Rectal cancer 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 Degenerative spondylolisthesis Facet arthritis, degenerative, lumbar spine Hydroureter, right Kidney stone on right side Renal colic on right side Chief Complaint PERITONITIS, ENTERIT IS PERITONITIS, ENTERITIS PERITONITIS, ENTERITIS PERITONITIS, ENTERITIS PERITONITIS, ENTERITIS fever 1 MONTH F/U POST RT RECTALW CHEMO ED Insertion, Vascular Port Insertion, Vascular Port 1WK LABS NEW START 1 Y FU S/O INR 2WKS LABS TOX CHECK 1WK LABS TX INR lab draw 2WKS LABS TOX CHECK 3WKS LABS TX 2WKS LABS TOX CHECK 1 WEEK, LABS, TX flank pain ACUTE LABS LOW BACK PAIN 3 MONTH F/U RECTAL No labs needed- Left arm preferred 3WKS LABS lumbar spine LOW BACK PAIN S/O INR KIDNEY Reason for Visit History of rectal ca ncer Abdominal pain Enteritis Rectal cancer Encounter for education Rectal cancer 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 Chemotherapy management, encounter for Rectal cancer 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 Obesity CORRINA (obstructive sleep apnea) Hypokalemia Rectal cancer 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 Chemotherapy management, encounter for Hypokalemia Hypophosphatemia Rectal cancer prison current use of anticoagulant Dry skin Hypokalemia Rectal cancer 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 Chemotherapy management, encounter for Hypokalemia Hypophosphatemia Rectal cancer 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 Fatigue Rectal cancer 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 Chemotherapy management, encounter for Rectal cancer 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 Low back pain Rectal cancer prison current use of anticoagulant Rectal cancer Chemotherapy follow-up examination Low back pain Rectal cancer prison current use of anticoagulant Degenerative spondylolisthesis Facet arthritis, degenerative, lumbar spine Hydroureter, right Kidney stone on right side Renal colic on right side Chief Complaint fever 1 MONTH F/U POST RT RECTALW CHEMO ED Insertion, Vascular Port Insertion, Vascular Port 1WK LABS NEW START 1 Y FU S/O INR 2WKS LABS TOX CHECK 1WK LABS TX INR lab draw 2WKS LABS TOX CHECK 3WKS LABS TX 2WKS LABS TOX CHECK 1 WEEK, LABS, TX flank pain ACUTE LABS LOW BACK PAIN 3 MONTH F/U RECTAL No labs needed- Left arm preferred 3WKS LABS lumbar spine LOW BACK PAIN S/O INR KIDNEY Reason for Visit Rectal cancer Encounter for education Rectal cancer 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 Chemotherapy management, encounter for Rectal cancer prison current use of anticoagulant Obesity CORRINA (obstructive sleep apnea) Hypokalemia Rectal cancer 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 Chemotherapy management, encounter for Hypokalemia Hypophosphatemia Rectal cancer prison current use of anticoagulant Dry skin Hypokalemia Rectal cancer 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 Chemotherapy management, encounter for Hypokalemia Hypophosphatemia Rectal cancer prison current use of anticoagulant Fatigue Rectal cancer 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 Chemotherapy management, encounter for Rectal cancer 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 Low back pain Rectal cancer prison current use of anticoagulant Rectal cancer Chemotherapy follow-up examination Low back pain Rectal cancer prison current use of anticoagulant Degenerative spondylolisthesis Facet arthritis, degenerative, lumbar spine Hydroureter, right Kidney stone on right side Renal colic on right side Chief Complaint 1 MONTH F/U POST RT RECTALW CHEMO ED Insertion, Vascular Port Insertion, Vascular Port 1WK LABS NEW START 1 Y FU S/O INR 2WKS LABS TOX CHECK 1WK LABS TX INR lab draw 2WKS LABS TOX CHECK 3WKS LABS TX 2WKS LABS TOX CHECK 1 WEEK, LABS, TX flank pain ACUTE LABS LOW BACK PAIN 3 MONTH F/U RECTAL 3WKS LABS lumbar spine LOW BACK PAIN S/O INR KIDNEY LABS/PRAH RECTAL CA Reason for Visit Rectal cancer Encounter for education Rectal cancer prison current use of anticoagulant Chemotherapy management, encounter for Rectal cancer prison current use of anticoagulant Obesity CORRINA (obstructive sleep apnea) Hypokalemia Rectal cancer 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 Chemotherapy management, encounter for Hypokalemia Hypophosphatemia Rectal cancer prison current use of anticoagulant Dry skin Hypokalemia Rectal cancer 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 Chemotherapy management, encounter for Hypokalemia Hypophosphatemia Rectal cancer prison current use of anticoagulant Fatigue Rectal cancer 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 Chemotherapy management, encounter for Rectal cancer prison current use of anticoagulant Low back pain Rectal cancer 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 Rectal cancer Chemotherapy follow-up examination Low back pain Rectal cancer prison current use of anticoagulant Degenerative spondylolisthesis Facet arthritis, degenerative, lumbar spine Hydroureter, right Kidney stone on right side Renal colic on right side Chief Complaint 1WK LABS NEW START 1 Y FU S/O INR 2WKS LABS TOX CHECK 1WK LABS TX INR lab draw 2WKS LABS TOX CHECK 3WKS LABS TX 2WKS LABS TOX CHECK 1 WEEK, LABS, TX flank pain ACUTE LABS LOW BACK PAIN 3 MONTH F/U RECTAL 3WKS LABS lumbar spine LOW BACK PAIN S/O INR KIDNEY LABS/PRAH RECTAL CA LUMBAR SPINE LEG PAIN Reason for Visit Chemotherapy managem ent, encounter for Rectal cancer prison current use of anticoagulant Obesity CORRINA (obstructive sleep apnea) Hypokalemia Rectal cancer prison current use of anticoagulant Chemotherapy management, encounter for Hypokalemia Hypophosphatemia Rectal cancer prison current use of anticoagulant Dry skin Hypokalemia Rectal cancer prison current use of anticoagulant Chemotherapy management, encounter for Hypokalemia Hypophosphatemia Rectal cancer prison current use of anticoagulant Fatigue Rectal cancer prison current use of anticoagulant Chemotherapy management, encounter for Rectal cancer 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 Low back pain Rectal cancer prison current use of anticoagulant Rectal cancer Chemotherapy follow-up examination Low back pain Rectal cancer 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 Degenerative spondylolisthesis Facet arthritis, degenerative, lumbar spine Hydroureter, right Kidney stone on right side Renal colic on right side Facet arthritis, degenerative, lumbar spine Chief Complaint 1 Y FU S/O INR 2WKS LABS TOX CHECK 1WK LABS TX INR lab draw 2WKS LABS TOX CHECK 3WKS LABS TX 2WKS LABS TOX CHECK 1 WEEK, LABS, TX flank pain ACUTE LABS LOW BACK PAIN 3 MONTH F/U RECTAL 3WKS LABS lumbar spine LOW BACK PAIN S/O INR KIDNEY LABS/PRAH RECTAL CA LUMBAR SPINE LEG PAIN S/O INR- ADD SCHINNER ORDERS Reason for Visit Obesity CORRINA (obstructive sleep apnea) Hypokalemia Rectal cancer prison current use of anticoagulant Chemotherapy management, encounter for Hypokalemia Hypophosphatemia Rectal cancer prison current use of anticoagulant Dry skin Hypokalemia Rectal cancer prison current use of anticoagulant Chemotherapy management, encounter for Hypokalemia Hypophosphatemia Rectal cancer 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 Fatigue Rectal cancer 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 Chemotherapy management, encounter for Rectal cancer prison current use of anticoagulant Low back pain Rectal cancer 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 Rectal cancer Chemotherapy follow-up examination Low back pain Rectal cancer 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 Degenerative spondylolisthesis Facet arthritis, degenerative, lumbar spine Hydroureter, right Kidney stone on right side Renal colic on right side Facet arthritis, degenerative, lumbar spine Chief Complaint 2WKS LABS TOX CHECK 3WKS LABS TX 2WKS LABS TOX CHECK 1 WEEK, LABS, TX flank pain ACUTE LABS LOW BACK PAIN 3 MONTH F/U RECTAL 3WKS LABS lumbar spine LOW BACK PAIN S/O INR KIDNEY RECTAL CA LUMBAR SPINE LEG PAIN S/O INR- ADD SCHINNER ORDERS 6WKS LABS LABS/PRAH LUMBAR SPINE S/O INR Reason for Visit Dry skin Hypokalemia 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 Rectal cancer Chemotherapy management, encounter for Hypokalemia Hypophosphatemia 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 Rectal cancer Fatigue 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 Rectal cancer Chemotherapy management, encounter for prison current use of anticoagulant Rectal cancer prison current use of anticoagulant Low back pain Rectal cancer Rectal cancer Chemotherapy follow-up examination prison current use of anticoagulant Low back pain Rectal cancer Degenerative spondylolisthesis Facet arthritis, degenerative, lumbar spine Hydroureter, right Kidney stone on right side Renal colic on right side Facet arthritis, degenerative, lumbar spine Iron deficiency prison current use of anticoagulant Low back pain Rectal cancer Degenerative spondylolisthesis Spondylolisthesis at L4-L5 level Chief Complaint Admit Date THYROID NODULE August 22, 2024 1 2:39pm 1 Y FU August 24, 2024 2:11pm port draw August 24, 2024 3:01pm ADD CXR September 20, 2024 2: 07pm CHEST PAIN September 23, 2024 6 :34am CHEST PAIN September 23, 2024 4 :33pm PORT DRAW/ROOF October 19, 2024 2 :27pm port draw November 16, 2024 9:45 am Reason for Visit Admit Date Asthma August 24, 2024 2:11pm History of atrial fibrillation August 24, 2024 2:11pm Obesity August 24, 2024 2:11pm CORRINA (obstructive sleep apnea) August 142023 2:11pm Pulmonary embolism August 24, 2024 2:11pm Chief Complaint Admit Date THYROID NODULE August 22, 2024 1 2:39pm 1 Y FU August 24, 2024 2:11pm port draw August 24, 2024 3:01pm ADD CXR September 20, 2024 2: 07pm CHEST PAIN September 23, 2024 6 :34am CHEST PAIN September 23, 2024 4 :33pm PORT DRAW/ROOF October 19, 2024 2 :27pm 6 MONTH F/U RECTAL December 08, 2024 3:1 9pm port draw December 08, 2024 3:3 0pm Reason for Visit Admit Date Asthma August 24, 2024 2:11pm History of atrial fibrillation August 24, 2024 2:11pm Obesity August 24, 2024 2:11pm CORRINA (obstructive sleep apnea) August 142023 2:11pm Pulmonary embolism August 24, 2024 2:11pm Rectal cancer December 08, 2024 3:1 9pm Chief Complaint Admit Date THYROID NODULE August 22, 2024 1 2:39pm 1 Y FU August 24, 2024 2:11pm port draw August 24, 2024 3:01pm ADD CXR September 20, 2024 2: 07pm CHEST PAIN September 23, 2024 6 :34am CHEST PAIN September 23, 2024 4 :33pm PORT DRAW/ROOF October 19, 2024 2 :27pm 6 MONTH F/U RECTAL December 08, 2024 3:1 9pm port draw December 08, 2024 3:3 0pm 6MO LABS PRIOR (NEED IMAGING [facility] FROM DE C) December 19, 2024 10:53am Reason for Visit Admit Date Asthma August 24, 2024 2:11pm History of atrial fibrillation August 24, 2024 2:11pm Obesity August 24, 2024 2:11pm CORRINA (obstructive sleep apnea) August 142023 2:11pm Pulmonary embolism August 24, 2024 2:11pm Rectal cancer December 08, 2024 3:1 9pm Iron deficiency December 19, 2024 10:5 3am Rectal cancer December 19, 2024 10:5 3am Reason for Referral Specialty Diagnoses / Procedures Referred By Contac t Referred To Contact MR IMAGING Diagnoses Malignant neoplasm of rectum (HCC) Procedures MRI RECTUM WO/W IVCON MRI PELVIS W/O & W/CONTRAST MATERIAL Ernesto Aguiar MD [address] [place] [phone] Mr Imaging [place] [facility] Referral ID Status Reason Start Date Expiration Date V isits Requested Visits Authorized [id number] Closed Auto-Generate d Referral 07/09/2023 09/13/2023 1 1 Specialty Diagnoses / Procedures Referred By Contac t Referred To Contact CT IMAGING Diagnoses Malignant neoplasm of rectum (HCC) Procedures CT ABD/PEL W IVCON CT ABD & PELVIS W/CONTRAST Ernesto Aguiar MD [phone] Imaging [place] [address] Referral ID Status Reason Start Date Expiration Date V isits Requested Visits Authorized [id number] Closed Auto-Generate d Referral 07/09/2023 09/13/2023 1 1 Specialty Diagnoses / Procedures [facility]ING Diagnoses Malignant neoplasm of rectum (HCC) Procedures CT CHEST W IVCON DIAGNOSTIC COMPUTED TOMOGRAPHY THORAX W/CONTRAST Ernesto Aguiar [facility] [address] [facility] [address] [address] [phone] [facility] Referral ID Status Reason Start Date Expiration Date V isits Requested Visits Authorized [id number] Closed Auto-Generate d Referral 07/09/2023 09/13/2023 1 1 Referral ID Status Reason Start Date Expiration Date Visits Requested Visits Authorized [id number] Pending Review Auto-Generat ed Referral 10/28/2023 11/26/2024 1 1 Referral ID Status Reason Start Date Expiration Date Visits Requested Visits Authorized [id number] New Request Auto-Generat ed Referral 03/25/2024 04/24/2025 1 1 Referral ID Status Reason Start Date Expiration Date Visits Requested Visits Authorized [id number] New Request Auto-Generat ed Referral 03/25/2024 04/24/2025 1 1 Referral ID Status Reason Start Date Expiration Date V isits Requested Visits Authorized [id number] Closed Auto-Generate d Referral 03/25/2024 04/24/2025 1 1 Referral ID Status Reason Start Date Expiration Date V isits Requested Visits Authorized [id number] Closed Auto-Generate d Referral 03/25/2024 04/24/2025 1 1 Referral ID Status Reason Start Date Expiration Date Visits Requested Visits Authorized [id number] Authorized Auto-Generat ed Referral 04/18/2024 05/18/2025 1 1 Specialty Diagnoses / Procedures Referred By Contac t Referred To Contact Diagnoses Obesity, unspecified class, unspecified obesity type, unspecified whether serious comorbidity present Procedures CONSULT [facility] OFFICE/OUTPATIENT [facility] 60 MINUTES Ernesto Aguiar MD [address] [place] [address] Referral ID Status Reason Start Date Expiration Date Visits Requested Visits Authorized [id number] Authorized PCP Requested Referral 4 09/13/2025 1 1 Referral ID Status Reason Start Date Expiration Date Visits Requested Visits Authorized [id number] New Request Auto-Generat ed Referral 4 10/13/2025 1 1 Referral ID Status Reason Start Date Expiration Date Visits Requested Visits Authorized [id number] New Request Auto-Generat ed Referral 4 10/13/2025 1 1 Referral ID Status Reason Start Date Expiration Date Visits Requested Visits Authorized [id number] New Request Auto-Generat ed Referral 4 10/13/2025 1 1 Additional Source Comments (unrecognized sect ion and content) No Status Records FoundNo Status Records FoundNo Status Records FoundNo Status Records Found INFORMATION SOURCE (unrecogn ized section and content) DATE CREATED AUTHOR 03/05/2018 [facility] ([place]) DATE CREATED AUTHOR AUTHOR'S ORGANIZ ATION 01/17/2025 [facility] DATE CREATED AUTHOR AUTHOR'S ORGANIZ ATION 01/23/2025 [facility] DATE CREATED AUTHOR AUTHOR'S ORGANIZ ATION 03/18/2025 [facility] Goals (unrecognized section and content) Goals may be documented in a n alternate sectionGoals may be documented in an alternate sectionGoals may be documented in an alternate sectionGoals may be documented in an alternate sectionGoals may be documented in an alternate sectionGoals may be documented in an alternate sectionGoals may be documented in an alternate sectionGoals may be documented in an alternate sectionGoals may be documented in an alternate sectionGoals may be documented in an alternate sectionGoals may be documented in an alternate sectionGoals may be documented in an alternate sectionGoals may be documented in an alternate sectionGoals may be documented in an alternate sectionGoals may be documented in an alternate sectionGoals may be documented in an alternate sectionGoals may be documented in an alternate sectionGoals may be documented in an alternate sectionGoals may be documented in an alternate sectionGoals may be documented in an alternate sectionGoals may be documented in an alternate sectionGoals may be documented in an alternate section Care Teams (unrecognized sec tion and content) Team Status: Active Member Role Status Dates Dr. Jt Membreno MD Family Provider Active Dr. Jt Membreno MD Primary Care Provider Active Team Status: Inactive Member Role Status Dates Dr. Jt Membreno MD Primary Care Provider, Referr ing Provider Active Dr. Ricki Harris MD Attending Provider Active Team Status: Inactive Member Role Status Dates Dr. Jt Membreno MD Primary Care Provider, Referr ing Provider Active Dr. Martin Razo DO Attending Provider Active Team Status: Inactive Member Role Status Dates Dr. Jt Membreno MD Primary Care Provider, Referr ing Provider Active Pancho LE, PA Attending Provider Active Team Status: Inactive Member Role Status Dates Dr. Jt Membreno MD Primary Care Provider, Family Provider Active Dr. Ricki Harris MD Attending Provider, Referring Provider Active Team Status: Active Member Role Status Dates Dr. Jt Membreno MD Primary Care Provider, Family Provider Active Dr. Ricki Harris MD Attending Provider, Referring Provider Active Team Status: Inactive Member Role Status Dates Dr. Jt Membreno MD Primary Care Provider Active Dr. Richard Ordonez MD Attending Provider, Referring Pr ovider Active Team Status: Inactive Member Role Status Dates Dr. Jt Membreno MD Primary Care Provider Active YAKOV Holman Attending Provider Active Team Status: Inactive Member Role Status Dates Dr. Jt Membreno MD Primary Care Pr ovider, Attending Provider, Referring Provider Active Team Status: Inactive Member Role Status Dates Dr. Jt Membreno MD Primary Care Provider, Referr ing Provider Active Jt Bird FIELD REP, FIELD REP-C Attending Provider Active Team Status: Inactive Member Role Status Dates Dr. Jt Membreno MD Primary Care Provider, Family Provider Active Jt Bird FIELD REP, FIELD REP-C Attending Provider Active Dr. Watson Rodriguez MD Referring Provider Active Team Status: Inactive Member Role Status Dates Dr. Jt Membreno MD Primary Care Provider, Referr ing Provider Active Dr. Sheng Jones DO Attending Provider Active Team Status: Inactive Member Role Status Dates Dr. Jt Membreno MD Primary Care Provider Active Dr. Watson Rodriguez MD Attending Provider Active Team Status: Active Member Role Status Dates Dr. tJ Membreno MD Primary Care Provider Active Dr. Richard Ordonez MD Attending Provider, Referring Pr ovider Active Team Status: Inactive Member Role Status Dates Dr. Jt Membreno MD Primary Care Provider, Family Provider Active Jt Bird FIELD REP, FIELD REP-C Attending Provider, Referring Pro vider Active Dr. Watson Rodriguez MD Other Provider Active Team Status: Inactive Member Role Status Dates Dr. Jt Membreno MD Primary Care Provider, Referr ing Provider Active Dr. Alon Boland MD Attending Provider Active Team Status: Active Member Role Status Dates Dr. Jt Membreno MD Primary Care Provider, Referr ing Provider Active Dr. Alon Boland MD Attending Provider, Other Prov ider Active Team Status: Active Member Role Status Dates Dr. Jt Membreno MD Primary Care Provider Active Dr. Alon Boland MD Attending Provider, Referring Provider Active Team Status: Inactive Member Role Status Dates Dr. Jt Membreno MD Primary Care Provider Active Dr. Alon Boland MD Attending Provider, Referring Provider Active Team Status: Inactive Member Role Status Dates Dr. Jt Membreno MD Primary Care Provider, Referr ing Provider Active Dr. Andre Quesada MD Attending Provider Active Team Status: Inactive Member Role Status Dates Dr. Jt Membreno MD Primary Care Provider, Referr ing Provider Active Dr. Cameron Childers DO Attending Provider Active Team Status: Active Member Role Status Dates Dr. Jt Membreno MD Primary Care Provider Active Dr. Watson Rodriguez MD Attending Provider Active Team Status: Inactive Member Role Status Dates Dr. Jt Membreno MD Primary Care Provider Active Jt Bird FIELD REP, FIELD REP-C Attending Provider, Referring Pro vider Active Dr. Alon Boland MD Other Provider Active Team Status: Active Member Role Status Dates Dr. Jt Membreno MD Primary Care Provider Active Dr. Cameron Childers DO Attending Provider Active Dr. Andre Quesada MD Referring Provider Active Team Status: Active Member Role Status Dates Dr. Jt Membreno MD Primary Care Provider Active Dr. Andre Quesada MD Attending Provider, Referring Pro vider Active Pleater Hand Relationship Specialty Start Date End Date Jt Membreno MD [address] [place] [address] PCP - General Family Medicine 07/21/19 Andre Quesada MD [address] [facility] [address] [place] [address] Oncology 05/25/23 Team Status: Active Member Role Status Dates Dr. Jt Membreno MD Primary Care Provider Active Dr. Cameron Childers DO Attending Provider Active Team Status: Active Member Role Status Dates Dr. Jt Membreno MD Primary Care Provider Active Jt Bird FIELD REP, FIELD REP-C Attending Provider Active Team Status: Inactive Member Role Status Dates Dr. Jt Membreno MD Primary Care Provider Active Dr. Andre Quesada MD Attending Provider, Referring Pro vider Active Team Status: Active Member Role Status Dates Dr. Jt Membreno MD Primary Care Provider Active Dr. Cameron Childers DO Attending Provider, Referring P rotiader Active Team Status: Inactive Member Role Status Dates Dr. Jt Membreno MD Primary Care Provider, Referr ing Provider Active Brittni Everett FIELD REP, FIELD REP-C Attending Provider Active Team Status: Inactive Member Role Status Dates Dr. Jt Membreno MD Primary Care Provider Active Dr. Cameron Childers DO Attending Provider, Referring Sofía rosales Active Team Status: Inactive Member Role Status Dates Dr. Jt Membreno MD Primary Care Provider Active Dr. Cameron Childers DO Attending Provider Active Pleater Hand Relationship Specialty Start Date End Date Jt Membreno MD [address] [facility] [address] [place] [address] PCP - General Family Medicine 07/21/19 Andre Quesada MD [address] [facility] [address] [place] [address] Oncology 05/25/23 Pleater Hand Relationship Specialty Start Date End Date Jt Membreno MD [address] [facility] [address] [place] [address] PCP - General Family Medicine 07/21/19 Andre Quesada MD [address] [facility] [address] [place] [address] Oncology 05/25/23 Team Status: Inactive Member Role Status Dates Dr. Jt Membreno MD Primary Care Provider, Referr ing Provider Active Dr. Andre Quesada MD Active Brittni Everett FIELD REP, FIELD REP-C Attending Provider Active Team Status: Inactive Member Role Status Dates Dr. Jt Membreno MD Primary Care Provider Active Dr. Dale Rosales DO Emergency Provider Active Team Status: Inactive Member Role Status Dates Dr. Jt Membreno MD Primary Care Provider, Referr ing Provider Active Karyna LE, PA-C Attending Provider Active Team Status: Active Member Role Status Dates Dr. Jt Membreno MD Primary Care Provider Active Dr. Ildefonso Rockwell DO Emergency Provider Active Dr. Kevin Veras DO Admit Provider, Attending Pro vider Active Team Status: Active Member Role Status Dates Dr. Jt Membreno MD Primary Care Provider Active Dr. Ildefonso Rockwell DO Emergency Provider Active Dr. Kevin Veras , DO Admit Provider, Attending Provider, Other Provider Active Dr. Estela Kwon MD Other Provider Active Team Status: Active Member Role Status Dates Dr. Jt Membreno MD Primary Care Provider Active Dr. Ildefonso Rockwell DO Emergency Provider Active Dr. Kevin Veras , DO Admit Provider, Other Provide r Active Dr. Estela Kwon MD Attending Provider, Other Provi fatoumata Active Team Status: Active Member Role Status Dates Dr. Jt Membreno MD Primary Care Provider Active Dr. Ildefonso Rockwell DO Emergency Provider Active Dr. Kevin Veras , DO Admit Provider, Other Provide r Active Dr. Estela Kwon MD Other Provider Active Dr. Sidney Dominguez MD Attending Provider, Other Provid er Active Team Status: Active Member Role Status Dates Dr. Jt Membreno MD Primary Care Provider Active Dr. Ildefonso Rockwell DO Emergency Provider Active Dr. Kevin Veras DO Admit Provider, Other Provide r Active Dr. Estela Kwon MD Other Provider Active Dr. Sidney Dominguez MD Other Provider Active Karyna LE PA-C Attending Provider Active Team Status: Active Member Role Status Dates Dr. Jt Membreno MD Primary Care Provider Active Dr. Ildefonso Rockwell DO Emergency Provider Active Dr. Kevin Veras , DO Admit Provider, Other Provide r Active Dr. Estela Kwon MD Attending Provider, Other Provi fatoumata Active Dr. Sidney Dominguez MD Other Provider Active Team Status: Inactive Member Role Status Dates Dr. Jt Membreno MD Primary Care Provider Active Dr. Dale Rosales , Attending Provider, Emergency Pro vider Active Team Status: Inactive Member Role Status Dates Dr. Jt Membreno MD Primary Care Provider Active Dr. Ildefonso Rockwell DO Emergency Provider Active Dr. Kevin Veras DO Admit Provider, Other Provide r Active Dr. Estela Kwon MD Other Provider Active Dr. Sidney Dominguez MD Attending Provider Active Team Status: Inactive Member Role Status Dates Dr. Jt Membreno MD Primary Care Provider Active Dr. Nomi Clay , Emergency Provider Active Pleater Hand Relationship Specialty Start Date End Date Jt Membreno MD [address] [place] [address] PCP - General Family Medicine 07/21/19 Andre Quesada MD [address] [place] [address] Oncology 05/25/23 Pleater Hand Relationship Specialty Start Date End Date Jt Membreno MD [address] [facility] [address] [place] [address] PCP - General Family Medicine 07/21/19 Andre Quesada MD [address] [facility] [place] [address] Oncology 05/25/23 Team Status: Active Member Role Status Dates Dr. Jt Membreno MD Primary Care Provider Active Dr. Ildefonso Rockwell DO Emergency Provider Active Dr. Kevin Veras DO Admit Provider, Other Provide r Active Dr. Estela Kwon MD Attending Provider, Other Provi fatoumata Active Dr. Sidney Dominguez MD Referring Provider Active Team Status: Active Member Role Status Dates Dr. Jt Membreno MD Primary Care Provider Active Dr. Alon Boland MD Attending Provider, Other Prov ider Active Team Status: Inactive Member Role Status Dates Dr. Jt Membreno MD Primary Care Provider Active Dr. Nomi Clay , Attending Provider, Emergency Provider Active Team Status: Inactive Member Role Status Dates Dr. Jt Membreno MD Primary Care Provider Active Dr. Alon Boland MD Attending Provider Active Team Status: Active Member Role Status Dates Dr. Jt Membreno MD Primary Care Provider Active Dr. Alon Boland MD Attending Provid er, Referring Provider, Other Provider Active Team Status: Active Member Role Status Dates Dr. Jt Membreno MD Primary Care Provider, Family Provider Active Jt Bird FIELD REP, FIELD REP-C Attending Provider, Referring Pro vider Active Dr. Watson Rodriguez MD Other Provider Active Team Status: Inactive Member Role Status Dates Dr. Jt Membreno MD Primary Care Provider Active Jt Bird FIELD REP, FIELD REP-C Attending Provider, Referring Pro vider Active Team Status: Inactive Member Role Status Dates Dr. Jt Membreno MD Primary Care Provider Active Dr. Glenn Coreas MD Emergency Provider Active Pleater Hand Relationship Specialty Start Date End Date Jt Membreno MD [address] [place], [place] [address] PCP - General Family Medicine 07/21/19 Andre Quesada MD [address] [place] [address] Oncology 05/25/23 Pleater Hand Relationship Specialty Start Date End Date Jt Membreno MD [address] [place], [place] [address] PCP - General Family Medicine 07/21/19 Andre Quesada MD [address] [place], [place] [phone] Oncology 05/25/23 Team Status: Inactive Member Role Status Dates Dr. Jt Membreno MD Primary Care Provider Active Dr. Glenn Coreas MD Attending Provider, Emergency Pro vider Active Team Status: Inactive Member Role Status Dates Dr. Jt Membreno MD Primary Care Provider Active Brittni Everett FIELD REP, FIELD REP-C Attending Provider, Referring Provider Active Pleater Hand Relationship Specialty Start Date End Date Jt Membreno MD [address] [place], [place] [address] PCP - General Family Medicine 07/21/19 Andre Quesada MD [address] [place] [address] Oncology 05/25/23 Pleater Hand Relationship Specialty Start Date End Date Jt Membreno MD [address] [facility] [address] [place] [address] PCP - General Family Medicine 07/21/19 Andre Quesada MD [address] [facility] [address] [place], [place] [address] Oncology 05/25/23 Team Status: Active Member Role Status Dates Dr. Jt Membreno MD Primary Care Provider Active Dr. Yun Sarmiento , Emergency Provider Active Dr. Shilo Cortez MD Admit Provider, Attending Provider Active Team Status: Inactive Member Role Status Dates Dr. Jt Membreno MD Primary Care Provider Active Dr. Yun Sarmiento , Emergency Provider Active Dr. Shilo Cortez MD Admit Provider, Attending Provider Active Team Status: Inactive Member Role Status Dates Dr. Jt Membreno MD Primary Care Provider Active Dr. Sheng Jones , Attending Provider, Referring P rovider Active Team Status: Inactive Member Role Status Dates Dr. Jt Membreno MD Primary Care Provider Active Dr. Aneudy Mir DO Emergency Provider Active Team Status: Inactive Member Role Status Dates Dr. Jt Membreno MD Primary Care Pr ovider, Family Provider, Other Provider Active Jt Bird FIELD REP, FIELD REP-C Attending Provider, Referring Pro vider Active Dr. Watson Rodriguez MD Other Provider Active Team Status: Inactive Member Role Status Dates Dr. Jt Membreno MD Primary Care Provider Active Dr. Aneudy Mir DO Attending Provider, Emergency Provide r Active Pleater Hand Relationship Specialty Start Date End Date Jt Membreno MD [address] [facility] [address] [place] [address] PCP - General Family Medicine 07/21/19 Andre Quesada MD [address] [facility] [place] [address] Oncology 05/25/23 Pleater Hand Relationship Specialty Start Date End Date Jt Membreno MD [address] [place] [address] PCP - General Family Medicine 07/21/19 Andre Quesada MD [address] [place] [address] Oncology 05/25/23 Pleater Hand Relationship Specialty Start Date End Date Jt Membreno MD [address] [place] [address] PCP - General Family Medicine 07/21/19 Andre Quesada MD [address] [place] [address] Oncology 05/25/23 Pleater Hand Relationship Specialty Start Date End Date Jt Membreno MD [address] [place] [address] PCP - General Family Medicine 07/21/19 Andre Quesada MD [address] [place] [address] Oncology 05/25/23 Pleater Hand Relationship Specialty Start Date End Date Jt Membreno MD [address] [place] [address] PCP - General Family Medicine 05/05/24 Pleater Hand Relationship Specialty Start Date End Date Jt Membreno MD [address] [place] [address] PCP - General Family Medicine 05/05/24 Pleater Hand Relationship Specialty Start Date End Date Jt Membreno MD [address] [place] [address] PCP - General Family Medicine 07/21/19 Andre Quesada MD [address] [place] [address] Oncology 05/25/23 Cameron Childers DO [address] [place] [address] Radiation Oncology 09/05/24 Pleater Hand Relationship Specialty Start Date End Date Jt Membreno MD [address] [place] [address] PCP - General Family Medicine 05/05/24 Pleater Hand Relationship Specialty Start Date End Date Jt Membreno MD [address] [place] [address] PCP - General Family Medicine 05/05/24 Pleater Hand Relationship Specialty Start Date End Date Jt Membreno MD [address] [place] [address] PCP - General Family Medicine 05/05/24 Pleater Hand Relationship Specialty Start Date End Date Jt Membreno MD [address] [place] [address] PCP - General Family Medicine 05/05/24 Pleater Hand Relationship Specialty Start Date End Date Jt Membreno MD [address] [place] [phone] PCP - General Family Medicine 05/05/24 Pleater Hand Relationship Specialty Start Date End Date Jt Membreno MD [address] [place] [address] PCP - General Family Medicine 07/21/19 Andre Quesada MD [address] [place] [address] Oncology 05/25/23 Cameron Childers DO [address] [place] [address] Radiation Oncology 09/05/24 Pleater Hand Relationship Specialty Start Date End Date Jt Membreno MD [address] [facility] [address] [place] [id number] PCP - General Family Medicine 05/05/24 Pleater Hand Relationship Specialty Start Date End Date Jt Membreno MD [address] [facility] [address] [place] [address] PCP - General Family Medicine 05/05/24 Pleater Hand Relationship Specialty Start Date End Date Jt Membreno MD [address] [facility] [address] [place] [address] PCP - General Family Medicine 05/05/24 Pleater Hand Relationship Specialty Start Date End Date Jt Membreno MD [address] [facility] [address] [place] [address] PCP - General Family Medicine 05/05/24 Pleater Hand Relationship Specialty Start Date End Date Jt Membreno MD [address] [place] [address] PCP - General Family Medicine 05/05/24 Pleater Hand Relationship Specialty Start Date End Date Jt Membreno MD [address] [place] [address] PCP - General Family Medicine 07/21/19 Andre Quesada MD [address] [place] [address] Oncology 05/25/23 Cameron Childers DO [address] [place] [address] Radiation Oncology 09/05/24 Pleater Hand Relationship Specialty Start Date End Date Jt Membreno MD [address] [place] [address] PCP - General Family Medicine 07/21/19 Andre Quesada MD [address] [place] [address] Oncology 05/25/23 Cameron Childers DO [address] [place] [address] Radiation Oncology 09/05/24 Pleater Hand Relationship Specialty Start Date End Date Jt Membreno MD [address] [place] [address] PCP - General Family Medicine 07/21/19 Andre Quesada MD [address] [place] [address] Oncology 05/25/23 Cameron Childers DO [address] [place] [address] Radiation Oncology 09/05/24 Pleater Hand Relationship Specialty Start Date End Date Jt Membreno MD [address] [place] [address] PCP - General Family Medicine 07/21/19 Andre Quesada MD [address] [place] [address] Oncology 05/25/23 Cameron Childers DO [address] [place] [address] Radiation Oncology 09/05/24 Pleater Hand Relationship Specialty Start Date End Date Jt Membreno MD [address] [place] [address] PCP - General Family Medicine 07/21/19 Andre Quesada MD [address] [place] [address] Oncology 05/25/23 Cameron Childers DO [address] [place] [address] Radiation Oncology 09/05/24 Pleater Hand Relationship Specialty Start Date End Date Jt Membreno MD [address] [place] [address] PCP - General Family Medicine 07/21/19 Andre Quesada MD [address] [place] [address] Oncology 05/25/23 Cameron Childers DO [address] [place] [address] Radiation Oncology 09/05/24 Pleater Hand Relationship Specialty Start Date End Date Jt Membreno MD [address] [place] [address] PCP - General Family Medicine 07/21/19 Andre Quesada MD [address] [place] [address] Oncology 05/25/23 Cameron Childers DO [address] [place] [address] Radiation Oncology 09/05/24 Pleater Hand Relationship Specialty Start Date End Date Jt Membreno MD [address] [place] [address] PCP - General Family Medicine 07/21/19 Andre Quesada MD [address] [place] [address] Oncology 05/25/23 Cameron Childers DO [address] [place] [address] Radiation Oncology 09/05/24 Pleater Hand Relationship Specialty Start Date End Date Jt Membreno MD [address] [place] [address] PCP - General Family Medicine 07/21/19 Andre Quesada MD [address] [place] [address] Oncology 05/25/23 Cameron Childers DO [address] [place] [address] Radiation Oncology 09/05/24 Team Status: Active Member Role Status Dates Dr. Jt Membreno MD Primary Care Provider Active Team Status: Inactive Member Role Status Dates Dr. Jt Membreno MD Primary Care Provider Active Start: August 10, 2024 End: August 10, 2024 Dr. Jt Membreno MD Attending Provider Active Start: August 10, 2024 End: August 10, 2024 Team Status: Inactive Member Role Status Dates Dr. Jt Membreno MD Primary Care Provider Active Start: August 22, 2024 End: August 22, 2024 Dr. Jt Membreno MD Attending Provider Active Start: August 22, 2024 End: August 22, 2024 Dr. Jt Membreno MD Referring Provider Active Start: August 22, 2024 End: August 22, 2024 Team Status: Inactive Member Role Status Dates Dr. Jt Membreno MD Primary Care Provider Active Start: August 24, 2024 End: August 24, 2024 Dr. Jt Membreno MD Referring Provider Active Start: August 24, 2024 End: August 24, 2024 Soheila Brown FIELD REP, FIELD REP-C Attending Provider Active Start: August 24, 2024 End: August 24, 2024 Team Status: Inactive Member Role Status Dates Dr. Jt Membreno MD Primary Care Provider Active Start: August 24, 2024 End: August 24, 2024 Dr. Watson Rodriguez MD Attending Provider Active S tart: August 24, 2024 End: August 24, 2024 Dr. Watson Rodriguez MD Referring Provider Active S tart: August 24, 2024 End: August 24, 2024 Team Status: Inactive Member Role Status Dates Dr. Jt Membreno MD Primary Care Provider Active Start: September 20, 2024 End: September 20, 2024 Dr. Jt Membreno MD Other Provider Active S tart: September 20, 2024 End: September 20, 2024 Dr. Watson Rodriguez MD Attending Provider Active S tart: September 20, 2024 End: September 20, 2024 Dr. Watson Rodriguez MD Referring Provider Active S tart: September 20, 2024 End: September 20, 2024 Josh Lr MD Other Provider Active Star t: September 20, 2024 End: September 20, 2024 Team Status: Inactive Member Role Status Dates Dr. Jt Membreno MD Primary Care Provider Active Start: September 23, 2024 End: September 23, 2024 Dr. Jt Membreno MD Attending Provider Active Start: September 23, 2024 End: September 23, 2024 Dr. Jt Membreno MD Referring Provider Active Start: September 23, 2024 End: September 23, 2024 Team Status: Active Member Role Status Dates Dr. Jt Membreno MD Primary Care Provider Active Start: September 23, 2024 Dr. Jt Membreno MD Referring Provider Active Start: September 23, 2024 Dr. Jt Membreno MD Other Provider Active S tart: September 23, 2024 Dr. Lali Boyd MD Attending Provider Activ e Start: September 23, 2024 Team Status: Inactive Member Role Status Dates Dr. Jt Membreno MD Primary Care Provider Active Start: September 27, 2024 End: September 27, 2024 MARIELA BASS Attending Provider Active Start: September 27, 2024 End: September 27, 2024 Team Status: Inactive Member Role Status Dates Dr. Jt Membreno MD Primary Care Provider Active Start: October 19, 2024 End: October 19, 2024 Jt Bird FIELD REP, FIELD REP-C Attending Provider Active S tart: October 19, 2024 End: October 19, 2024 Jt Bird FIELD REP, FIELD REP-C Referring Provider Active S tart: October 19, 2024 End: October 19, 2024 Team Status: Inactive Member Role Status Dates Dr. Jt Membreno MD Primary Care Provider Active Start: November 07, 2024 End: November 07, 2024 Dr. Watson Rodriguez MD Attending Provider Active S tart: November 07, 2024 End: November 07, 2024 Team Status: Active Member Role Status Dates Dr. Jt Membreno MD Primary Care Provider Active Start: November 16, 2024 Dr. Cameron Childers DO Attending Provider Active Start: November 16, 2024 Dr. Andre Quesada MD Referring Provider Active S tart: November 16, 2024 Team Status: Inactive Member Role Status Dates Dr. Jt Membreno MD Primary Care Provider Active Start: December 01, 2024 End: December 01, 2024 Dr. Watson Rodriguez MD Attending Provider Active S tart: December 01, 2024 End: December 01, 2024 Team Status: Inactive Member Role Status Dates Dr. Jt Membreno MD Primary Care Provider Active Start: December 08, 2024 End: December 08, 2024 Dr. Jt Membreno MD Referring Provider Active Start: December 08, 2024 End: December 08, 2024 Dr. Cameron Childers DO Attending Provider Active Start: December 08, 2024 End: December 08, 2024 Team Status: Active Member Role Status Dates Dr. Jt Membreno MD Primary Care Provider Active Start: December 08, 2024 Dr. Cameron Childers DO Attending Provider Active Start: December 08, 2024 Dr. Andre Quesada MD Referring Provider Active S tart: December 08, 2024 Team Status: Inactive Member Role Status Dates Dr. Jt Membreno MD Primary Care Provider Active Start: December 09, 2024 End: December 09, 2024 Dr. Jt Membreno MD Attending Provider Active Start: December 09, 2024 End: December 09, 2024 Dr. Jt Membreno MD Referring Provider Active Start: December 09, 2024 End: December 09, 2024 Team Status: Inactive Member Role Status Dates Dr. Jt Membreno MD Primary Care Provider Active Start: December 14, 2024 End: December 14, 2024 Dr. Jt Membreno MD Attending Provider Active Start: December 14, 2024 End: December 14, 2024 Dr. Jt Membreno MD Referring Provider Active Start: December 14, 2024 End: December 14, 2024 Team Status: Inactive Member Role Status Dates Dr. Jt Membreno MD Primary Care Provider Active Start: December 19, 2024 End: December 19, 2024 Dr. Jt Membreno MD Referring Provider Active Start: December 19, 2024 End: December 19, 2024 Dr. Andre Quesada MD Attending Provider Active S tart: December 19, 2024 End: December 19, 2024 Pleater Hand Relationship Specialty Start Date End Date Jt Membreno MD [address] [place] [address] PCP - General Family Medicine 07/21/19 Andre Quesada MD [address] [place] [address] Oncology 05/25/23 Cameron Childers DO [address] [place] [address] Radiation Oncology 09/05/24 Pleater Hand Relationship Specialty Start Date End Date Jt Membreno MD [address] [place] [address] PCP - General Family Medicine 07/21/19 Andre Quesada MD [address] [place] [address] Oncology 05/25/23 Cameron Childers DO [address] [place] [address] Radiation Oncology 09/05/24 Daniel Ramirez MD [address] [place] [address] General Surgery 01/12/25 Source Comments (unrecognize d section and content) In the event this informatio n is protected by the Federal Confidentiality of Alcohol and Drug Abuse Patient Records regulations: The Federal rules restrict any use of the information to criminally investigate or prosecute any alcohol or drug abuse patient.[facility] the event this information is protected by the Federal Confidentiality of Alcohol and Drug Abuse Patient Records regulations: The Federal rules restrict any use of the information to criminally investigate or prosecute any alcohol or drug abuse patient.[facility] CenterIn the event this information is protected by the Federal Confidentiality of Alcohol and Drug Abuse Patient Records regulations: The Federal rules restrict any use of the information to criminally investigate or prosecute any alcohol or drug abuse patient.[facility] CenterIn the event this information is protected by the Federal Confidentiality of Alcohol and Drug Abuse Patient Records regulations: The Federal rules restrict any use of the information to criminally investigate or prosecute any alcohol or drug abuse patient.[facility] CenterIn the event this information is protected by the Federal Confidentiality of Alcohol and Drug Abuse Patient Records regulations: The Federal rules restrict any use of the information to criminally investigate or prosecute any alcohol or drug abuse patient.[facility] CenterIn the event this information is protected by the Federal Confidentiality of Alcohol and Drug Abuse Patient Records regulations: The Federal rules restrict any use of the information to criminally investigate or prosecute any alcohol or drug abuse patient.[facility] CenterIn the event this information is protected by the Federal Confidentiality of Alcohol and Drug Abuse Patient Records regulations: The Federal rules restrict any use of the information to criminally investigate or prosecute any alcohol or drug abuse patient.[facility] CenterIn the event this information is protected by the Federal Confidentiality of Alcohol and Drug Abuse Patient Records regulations: The Federal rules restrict any use of the information to criminally investigate or prosecute any alcohol or drug abuse patient.[facility] CenterIn the event this information is protected by the Federal Confidentiality of Alcohol and Drug Abuse Patient Records regulations: The Federal rules restrict any use of the information to criminally investigate or prosecute any alcohol or drug abuse patient.[facility] CenterIn the event this information is protected by the Federal Confidentiality of Alcohol and Drug Abuse Patient Records regulations: The Federal rules restrict any use of the information to criminally investigate or prosecute any alcohol or drug abuse patient.[facility] CenterIn the event this information is protected by the Federal Confidentiality of Alcohol and Drug Abuse Patient Records regulations: The Federal rules restrict any use of the information to criminally investigate or prosecute any alcohol or drug abuse patient.[facility] CenterIn the event this information is protected by the Federal Confidentiality of Alcohol and Drug Abuse Patient Records regulations: The Federal rules restrict any use of the information to criminally investigate or prosecute any alcohol or drug abuse patient.[facility] CenterIn the event this information is protected by the Federal Confidentiality of Alcohol and Drug Abuse Patient Records regulations: The Federal rules restrict any use of the information to criminally investigate or prosecute any alcohol or drug abuse patient.[facility] CenterIn the event this information is protected by the Federal Confidentiality of Alcohol and Drug Abuse Patient Records regulations: The Federal rules restrict any use of the information to criminally investigate or prosecute any alcohol or drug abuse patient.[facility] CenterIn the event this information is protected by the Federal Confidentiality of Alcohol and Drug Abuse Patient Records regulations: The Federal rules restrict any use of the information to criminally investigate or prosecute any alcohol or drug abuse patient.[facility] CenterIn the event this information is protected by the Federal Confidentiality of Alcohol and Drug Abuse Patient Records regulations: The Federal rules restrict any use of the information to criminally investigate or prosecute any alcohol or drug abuse patient.[facility] CenterIn the event this information is protected by the Federal Confidentiality of Alcohol and Drug Abuse Patient Records regulations: The Federal rules restrict any use of the information to criminally investigate or prosecute any alcohol or drug abuse patient.[facility] CenterIn the event this information is protected by the Federal Confidentiality of Alcohol and Drug Abuse Patient Records regulations: The Federal rules restrict any use of the information to criminally investigate or prosecute any alcohol or drug abuse patient.[facility] CenterIn the event this information is protected by the Federal Confidentiality of Alcohol and Drug Abuse Patient Records regulations: The Federal rules restrict any use of the information to criminally investigate or prosecute any alcohol or drug abuse patient.[facility] CenterIn the event this information is protected by the Federal Confidentiality of Alcohol and Drug Abuse Patient Records regulations: The Federal rules restrict any use of the information to criminally investigate or prosecute any alcohol or drug abuse patient.[facility] CenterIn the event this information is protected by the Federal Confidentiality of Alcohol and Drug Abuse Patient Records regulations: The Federal rules restrict any use of the information to criminally investigate or prosecute any alcohol or drug abuse patient.[facility] CenterIn the event this information is protected by the Federal Confidentiality of Alcohol and Drug Abuse Patient Records regulations: The Federal rules restrict any use of the information to criminally investigate or prosecute any alcohol or drug abuse patient.[facility] CenterIn the event this information is protected by the Federal Confidentiality of Alcohol and Drug Abuse Patient Records regulations: The Federal rules restrict any use of the information to criminally investigate or prosecute any alcohol or drug abuse patient.[facility] CenterIn the event this information is protected by the Federal Confidentiality of Alcohol and Drug Abuse Patient Records regulations: The Federal rules restrict any use of the information to criminally investigate or prosecute any alcohol or drug abuse patient.[facility] CenterIn the event this information is protected by the Federal Confidentiality of Alcohol and Drug Abuse Patient Records regulations: The Federal rules restrict any use of the information to criminally investigate or prosecute any alcohol or drug abuse patient.[facility] CenterIn the event this information is protected by the Federal Confidentiality of Alcohol and Drug Abuse Patient Records regulations: The Federal rules restrict any use of the information to criminally investigate or prosecute any alcohol or drug abuse patient.[facility] CenterIn the event this information is protected by the Federal Confidentiality of Alcohol and Drug Abuse Patient Records regulations: The Federal rules restrict any use of the information to criminally investigate or prosecute any alcohol or drug abuse patient.[facility] CenterIn the event this information is protected by the Federal Confidentiality of Alcohol and Drug Abuse Patient Records regulations: The Federal rules restrict any use of the information to criminally investigate or prosecute any alcohol or drug abuse patient.[facility] CenterIn the event this information is protected by the Federal Confidentiality of Alcohol and Drug Abuse Patient Records regulations: The Federal rules restrict any use of the information to criminally investigate or prosecute any alcohol or drug abuse patient.[facility] CenterIn the event this information is protected by the Federal Confidentiality of Alcohol and Drug Abuse Patient Records regulations: The Federal rules restrict any use of the information to criminally investigate or prosecute any alcohol or drug abuse patient.[facility] CenterIn the event this information is protected by the Federal Confidentiality of Alcohol and Drug Abuse Patient Records regulations: The Federal rules restrict any use of the information to criminally investigate or prosecute any alcohol or drug abuse patient.[facility] CenterIn the event this information is protected by the Federal Confidentiality of Alcohol and Drug Abuse Patient Records regulations: The Federal rules restrict any use of the information to criminally investigate or prosecute any alcohol or drug abuse patient.[facility] CenterIn the event this information is protected by the Federal Confidentiality of Alcohol and Drug Abuse Patient Records regulations: The Federal rules restrict any use of the information to criminally investigate or prosecute any alcohol or drug abuse patient.[facility] CenterIn the event this information is protected by the Federal Confidentiality of Alcohol and Drug Abuse Patient Records regulations: The Federal rules restrict any use of the information to criminally investigate or prosecute any alcohol or drug abuse patient.[facility] CenterIn the event this information is protected by the Federal Confidentiality of Alcohol and Drug Abuse Patient Records regulations: The Federal rules restrict any use of the information to criminally investigate or prosecute any alcohol or drug abuse patient.[facility] CenterIn the event this information is protected by the Federal Confidentiality of Alcohol and Drug Abuse Patient Records regulations: The Federal rules restrict any use of the information to criminally investigate or prosecute any alcohol or drug abuse patient.[facility] CenterIn the event this information is protected by the Federal Confidentiality of Alcohol and Drug Abuse Patient Records regulations: The Federal rules restrict any use of the information to criminally investigate or prosecute any alcohol or drug abuse patient.[facility] CenterIn the event this information is protected by the Federal Confidentiality of Alcohol and Drug Abuse Patient Records regulations: The Federal rules restrict any use of the information to criminally investigate or prosecute any alcohol or drug abuse patient.[facility] CenterIn the event this information is protected by the Federal Confidentiality of Alcohol and Drug Abuse Patient Records regulations: The Federal rules restrict any use of the information to criminally investigate or prosecute any alcohol or drug abuse patient.[facility] CenterIn the event this information is protected by the Federal Confidentiality of Alcohol and Drug Abuse Patient Records regulations: The Federal rules restrict any use of the information to criminally investigate or prosecute any alcohol or drug abuse patient.[facility] CenterIn the event this information is protected by the Federal Confidentiality of Alcohol and Drug Abuse Patient Records regulations: The Federal rules restrict any use of the information to criminally investigate or prosecute any alcohol or drug abuse patient.[facility] CenterIn the event this information is protected by the Federal Confidentiality of Alcohol and Drug Abuse Patient Records regulations: The Federal rules restrict any use of the information to criminally investigate or prosecute any alcohol or drug abuse patient.[facility] CenterIn the event this information is protected by the Federal Confidentiality of Alcohol and Drug Abuse Patient Records regulations: The Federal rules restrict any use of the information to criminally investigate or prosecute any alcohol or drug abuse patient.[facility] CenterIn the event this information is protected by the Federal Confidentiality of Alcohol and Drug Abuse Patient Records regulations: The Federal rules restrict any use of the information to criminally investigate or prosecute any alcohol or drug abuse patient.[facility] CenterIn the event this information is protected by the Federal Confidentiality of Alcohol and Drug Abuse Patient Records regulations: The Federal rules restrict any use of the information to criminally investigate or prosecute any alcohol or drug abuse patient.[facility] Reason for Visit (unrecogniz ed section and content) Reason Comments Patient Question Care Coordination Reason Comments Patient Question Reason Comments Care Coordination Specialty Diagnoses / Procedures Referred By Contac t Referred To Contact MR IMAGING Diagnoses Malignant neoplasm of rectum (HCC) Procedures MRI RECTUM WO/W IVCON MRI PELVIS W/O & W/CONTRAST MATERIAL Ernesto Aguiar MD [id number] [place] [id number] Mr Imaging MARGARET [place] [address] Referral ID Status Reason Start Date Expiration Date V isits Requested Visits Authorized [id number] Closed Auto-Generate d Referral 07/09/2023 09/13/2023 [address] chest/abd/pel res ults Reason Comments Radiology CT Specialty Diagnoses / Procedures Referred By Contac t Referred To Contact CT IMAGING Diagnoses Malignant neoplasm of rectum (HCC) Procedures CT ABD/PEL W IVCON CT ABD & PELVIS W/CONTRAST Ernesto Aguiar MD [address] [phone] [place] [address] Referral ID Status Reason Start Date Expiration Date V isits Requested Visits Authorized [id number] Closed Auto-Generate d Referral 07/09/2023 09/13/2023 1 1 Reason Comments Established Patient Specialty Diagnoses / Procedures Referred By Contac t Referred To Contact Colon and Rectal Surgery / COLORECTAL SURGERY Diagnoses Discussing imaging from 07/29 rectal cancer/flex sig - completed chemoradiation on 07/07 Procedures OFFICE/OUTPATIENT ESTABLISHED MOD MDM 30-39 MIN EST DDI PATIENT Jt Membreno MD [address] [place] [address] Ernesto Aguiar MD [address] [place] [phone] Referral ID Status Reason Start Date Expiration Date Visits Re quested Visits Authorized [id number] Closed 08/04/2023 09/13/2023 1 1 Reason Comments Patient Update Reason Comments Appointment Referral ID Status Reason Start Date Expiration Date V isits Requested Visits Authorized [id number] Closed Auto-Generate d Referral 10/28/2023 11/26/2024 1 1 Reason Comments CVAD Access Specialty Diagnoses / Procedures Referred By Contac t Referred To Contact CT IMAGING Diagnoses Malignant neoplasm of rectum (HCC) Procedures CT CHEST W IVCON DIAGNOSTIC COMPUTED TOMOGRAPHY THORAX W/CONTRAST Ernesto Aguiar MD [address] [place] [phone] [place] [address] Referral ID Status Reason Start Date Expiration Date V isits Requested Visits Authorized [id number] Closed Auto-Generate d Referral 03/25/2024 04/24/2025 1 1 Reason Comments Radiology MRI Specialty Diagnoses / Procedures Referred By Contac t Referred To Contact MR IMAGING Diagnoses Malignant neoplasm of rectum (HCC) Procedures MRI RECTUM WO/W IVCON MRI PELVIS W/O & W/CONTRAST MATERIAL Ernesto Aguiar MD [address] [place] [phone] [place] [address] Referral ID Status Reason Start Date Expiration Date V isits Requested Visits Authorized [id number] Closed Auto-Generate d Referral 04/18/2024 05/18/2025 1 1 Reason Comments Follow Up Rectal Cancer Reason Comments New Patient Specialty Diagnoses / Procedures Referred By Contact Referred To Contact Electrophysiology / Cardiology Diagnoses Unspecified atrial fibrillation (HCC) Procedures [place] OFFICE/OP CONSLTJ NEW/EST PT MOD MDM 40 MINUTES Jt Bird, RHEUMATOLOGIST - CLINICAL LAB SCIENTIST [address] [place] [address] Phone: tel:[phone] fax:[phone] Josh Lr MD [address] [place] [address] Phone: tel:[phone] fax:[phone] Referral ID Status Reason Start Date Expiration Date Visits Re quested Visits Authorized [id number] Closed 05/05/2024 05/05/2025 1 1 Reason Comments Established Patient Reason Onset Date Comments Procedure 09/05/2024 PVI ([place]) Reason Comments New Patient Weight management Specialty Diagnoses / Procedures Referred By Contac t Referred To Contact Diagnoses Obesity, unspecified class, unspecified obesity type, unspecified whether serious comorbidity present Procedures CONSULT [facility] OFFICE/OUTPATIENT NEW HIGH MDM 60 MINUTES Ernesto Aguiar MD [address] [place] [address] Referral ID Status Reason Start Date Expiration Date V isits Requested Visits Authorized [id number] Closed PCP Requested Referral 09/13/2024 09/13/2025 1 1 Referral ID Status Reason Start Date Expiration Date V isits Requested Visits Authorized [id number] Closed Auto-Generate d Referral 09/13/2024 10/13/2025 1 1 Reason Comments Med Change Request Reason Comments Radiology CT Specialty Diagnoses / Procedures Referred By Contac t Referred To Contact CT IMAGING Diagnoses Malignant neoplasm of rectum (HCC) Procedures CT CHEST W IVCON DIAGNOSTIC COMPUTED TOMOGRAPHY THORAX W/CONTRAST Ernesto Aguiar MD [address] [place] [phone] Phone: tel: fax: CT IMAGING [place] [address] Referral ID Status Reason Start Date Expiration Date V isits Requested Visits Authorized [id number] Closed Auto-Generate d Referral 09/13/2024 10/13/2025 1 1 Reason Comments 1 Month Follow Up Reason Comments Results Scheduled Active and Recently Administ ered Medications (unrecognized section and content) Medication Order 10/02/2024 10/03/2024 10/04/2024 sodium chloride 0.9% (NS) flush 5-40 mL 5-40 mL, IntraVENous, Every 12 hours, First dose on Thu10/04/24 at 1430, Recovery & On Unit, For Line Patency: Peripheral IV = 5 mL; Midline or Central Line = 10 mL/lumen. If following IV push medication, administer flush at same rate as the IV push. Flush volume is determined by type of infusion therapy being given. For non-viscous solutions use: Peripheral IV = 5 mL Midline or Central Line = 10 mL/lumen For viscous solutions (i.e. blood components, parenteral nutrition, contrast media, or after obtaining blood sample) use: Peripheral IV = 10 mL Midline or Central Line = 20 mL/lumen 1430 (Canceled Entry - Provider: Automatic Discharge Provider - Comment: Automatically canceled at discontinue of medication order) PRN Medication Order 10/02/2024 10/03/2024 10/04/2024 acetaminophen (Tylenol) tablet 650 mg 650 mg, Oral, Every 4 hours PRN, mild pain (1-3), Fever > 100.5 F (38 C), Starting on Thu10/04/24 at 1416, Recovery & On Unit, Maximum dose of acetaminophen is 4000 mg from all sources in 24 hours. sodium chloride 0.9 % infusion 5-250 mL/hr, IntraVENous, PRN, if patient receiving piggyback infusions and maintenance fluids are not ordered OR KVO fluids to protect IV site / prevent frequent line interruptions / long duration, Starting on Thu10/04/24 at 1416, Recovery & On Unit, For piggyback infusion, administer at same rate as piggyback for a total of 25 mL. Enter 25 mL into dose field and piggyback rate into rate field of order. If piggyback is infusing at a rate less than 100 mL/hr, enter 25 mL into dose field and 100 mL/hr into rate field of order. For KVO fluids, enter rate of 20 mL/hr or less into rate field of order. sodium chloride 0.9 % infusion (CANCELED) 5-250 mL/hr, IntraVENous, PRN, if patient receiving piggyback infusions and maintenance fluids are not ordered OR KVO fluids to protect IV site / prevent frequent line interruptions / long duration, Starting on Thu10/04/24 at 0829, Preprocedure, For piggyback infusion, administer at same rate as piggyback for a total of 25 mL. Enter 25 mL into dose field and piggyback rate into rate field of order. If piggyback is infusing at a rate less than 100 mL/hr, enter 25 mL into dose field and 100 mL/hr into rate field of order. For KVO fluids, enter rate of 20 mL/hr or less into rate field of order. 1159 (New Bag - Prov ider: ASHTYN Antonio CRNA)1303 (Anesthesia Volume Adjustment - Provider: ASHTYN Antonio CRNA) sodium chloride 0.9% (NS) flush 5-40 mL 5-40 mL, IntraVENous, PRN, line care, After every IV line use, Starting on Thu10/04/24 at 1416, Recovery & On Unit, For Line Patency: Peripheral IV = 5 mL; Midline or Central Line = 10 mL/lumen. If following IV push medication, administer flush at same rate as the IV push. Flush volume is determined by type of infusion therapy being given. For non-viscous solutions use: Peripheral IV = 5 mL Midline or Central Line = 10 mL/lumen For viscous solutions (i.e. blood components, parenteral nutrition, contrast media, or after obtaining blood sample) use: Peripheral IV = 10 mL Midline or Central Line = 20 mL/lumen FOR RECORDS PERTAINING TO PATIENTS WHO ARE [...] BE BASED ON THE PRIMARY CLINICAL RECORDS. [employer] [facility]. provides no warranty or guarantee of the accuracy or completeness of information in this document.
[2025-03-24 07:31] LABS: INR Fingerstick 1.3
[2025-03-24] MEDS: Lactated Ringers 1,000 ML 15 ML IV (07:47)
[2025-03-24 07:48] VITALS: BP 120/72; PULSE 70; RESP 16; TEMP 36.4; O2SAT 97; BMI 38.1
--- NOTE | 2025-03-24 07:52 | HP.PCM_ITS ---
History and Physical Date of Admission: 03/24/25 Intake Vital Signs 01/12/2509:26 01/20/2513:55 Height 5 ft 11 in 5 ft 11 in Weight: 290 lb 302 lb BMI 40.4 42.1 BP 129/74 H Blood Pressure Location Rt brachial Position Sitting Respiration 16 Intake Visit Reasons: REPEAT COLONOSCOPY Chief Complaint: c-scope Product Director Required: No Is patient in pain?: No Allergies simvastatin Adverse Reaction (Severe, Verified 01/20/25 13:55) Myalgiasdoxycycline Adverse Reaction (Intermediate, Verified 01/20/25 13:55) GI upset Medications ?Medication ?Instructions ?Recorded ?Confirmed ?Type cholecalciferol (vitamin D3) 50 2,000 unit PO DAILY supplement 06/16/19 01/20/25 History mcg (2,000 unit) capsule furosemide 40 mg tablet 40 mg PO DAILY diuretic 06/16/19 5 History benazepril 20 mg tablet 20 mg PO DAILY blood pressure 01/09/21 0 01/20/25 History sertraline 50 mg tablet 50 mg PO QHS depression 01/09/21 5 History omeprazole 20 mg capsule,delayed 20 mg PO Q OTHER DAY PRN GERD 10/25/21 0 01/20/25 History release aspirin 81 mg tablet,delayed 81 mg PO DAILY heart #90 tabs 01/15/24 0 01/20/25 Rx release (Enteric Coated Aspirin) warfarin 5 mg tablet 5 mg PO DAILY blood thinner 02/14/2406/08 History diltiazem HCl 300 mg 300 mg PO QDAY heart #90 caps 04/26/24 0 01/20/25 Rx capsule,extended release 24 hr acetaminophen 500 mg tablet 500 mg PO Q6H PRN 06/09/24 01/20/25 Hist ory (Tylenol Extra Strength) warfarin 1 mg tablet 1 mg PO DAILY #90 tabs 12/01/24 01/20/25 Rx rosuvastatin 5 mg tablet (Crestor) 5 mg PO Q OTHER DAY cholesterol 01/12/25 01/20/25 Rx #45 tabs Have you fallen in the past year?: No PFSH Medical History Rotator cuff injury History of kidney stones Anxiety CPAP (continuous positive airway pressure) dependence Diverticulitis Low back pain Fatigue Dry skin Hypokalemia Thyroid disease History of echocardiogram Cancer Encounter for education Rectal cancer Rectal mass High cholesterol DVT (deep venous thrombosis) Gastric reflux Non-smoker History of edema Cardiology follow-up encounter History of atrial fibrillation Hypertension Sinusitis Acute cough COVID-19 Kidney stone oil heaterman current use of anticoagulant Abdominal pain Weight gain with edema Edema Dyspnea on exertion History of venous thromboembolism Pulmonary embolism (06/10/18) CORRINA (obstructive sleep apnea) Afib Asthma Arthritis Hyperlipidemia Gastroesophageal reflux disease Benign essential hypertension Surgical History (Updated 01/20/25 @ 14:16 by Alejandra Collado) History of cardiac ablation for atrial fibrillation S/P left rotator cuff repair S/P ablation of atrial fibrillation History of vascular access device History of cardiac catheterization History of appendectomy History of colonoscopy (~06/2016) History of left heart catheterization (10/21/18) History of left inguinal hernia repair History of appendectomy History of hip surgery Family History Mother CAD (coronary artery disease) Diabetes Hypertension Hyperlipidemia Heart diseaseFather CVA (cerebral vascular accident) Social History Smoking Status: Never smoker second hand exposure: Yes alcohol intake: never substance use type: does not use caffeine: Yes Type: carbonated beverages Number of servings: 1 HPI HPI HPI: Patient is a 64-year-old male with a history of rectal cancer. This was treated with chemotherapy and radiation. He had a colonoscopy a year ago and a tubular adenoma was removed. The rectum was normal. The patient just recently had a flexible sigmoidoscopy but his colorectal surgeon would like a full colonoscopy to be performed. He denies abdominal pain or blood in the stool. ROS General General: No weight change, appetite, fatigue, colon cancer, breast cancer or weakness HEENT HEENT: No difficulty swallowing, eye injury, eye surgery, swollen glands or hoarseness Endo Endocrine: No thyroid disease, diabetes mellitus, thyroid cancer, Hair loss, heat intolerance or cold intolerance Skin Skin: No rash or changing moles Breast Breast: No left breast lump, right breast lump, nipple discharge, breast pain, abnormal mammogram, abnormal US or breast enlargement Musc Musculoskeletal: Yes back problems and arthritis; No rheumatoid arthritis, gout or joint pain Cardio Cardiovascular: Yes heart disease, atrial fibrillation and high blood pressure; No murmur, pacemaker, heart attack, heart stent, palpitations, shortness of breath with exertion or chest pain Psych Psychiatric: No depression, anxiety or hearing voices Resp Respiratory: No shortness of breath, Yes sleep apnea, No cough, No COPD, No asthma, No emphysema and No wheezing Gastro Gastrointestinal: No abdominal pain, No nausea or vomiting, No diarrhea, No constipation, No blood in stool, No acid reflux, No hemorrhoids, No ulcers, No gallbladder problem and No black,tarry stools Juma Hematologic: Yes blood thinners, No blood disorders, No bleeding, No anemia and Yes blood clots Neuro Neurologic: No system reviewed and no additional complaints, except as documented, No as per HPI, No abnormal gait, No abnormal hearing, No abnormal movements, No abnormal speech, No behavioral changes, No burning sensations, No confusion, No convulsions, No disequilibrium, No dizziness, No localized weakness, No frequent falls, No headache(s), No lack of coordination, No loss of vision, No memory loss, No numbness, No other visual disturbances, No radicular pain, No restless legs, No sensory deficit, No syncope, No tingling, No tremor(s), No weakness and No other Exam Const General: cooperative Orientation: alert and oriented x3 HENCT Head: normal to inspection Neck Neck: normal visual inspection and full ROM Chest Chest palpation & inspection: normal inspection of the chest Resp Effort & Inspection: normal respiratory effort Auscultation: clear to auscultation bilaterally Cardio Rate: regular rate Rhythm: regular rhythm GI Inspection: non-distended Palpation: soft and nontender Skin General: no rashes or lesions noted Neuro General: patient alert and patient oriented x3 Extrem General: full ROM Psych Appearance: grossly normal Mental Status: mental status grossly normal Assessment and Plan Assessment and Plan (1) Rectal cancer: Status: Chronic Comment: Finished chemoradiation therapy and chemo on 10/25/2023. On observation Comes for follow up. ctDNA on 11/16/2024 was negative. CEA on 12/08/2024 was 2.2. No clinical evidence of disease. Plan: The patient comes in for surveillance colonoscopy. A tubular adenoma was removed about a year ago. He was recommended for full colonoscopy by his colorectal surgeon. I explained endoscopy in detail to the patient. I explained the risks including but not limited to stroke or heart attack with anesthesia, perforation of the GI tract, bleeding, infection. I explained that any of these could necessitate further emergency surgery. The patient understands and all questions were answered sufficiently. The patient wishes to proceed with procedure. Patient will hold his Coumadin for 1 week prior to the procedure Daniel Ramirez MD Pager: [facility] [address] [place] [address], [address] [place] [address] Office: I have examined the patient and the H&P has been reviewed. There are no clinical changes since date of exam.
--- NOTE | 2025-03-24 08:46 | OP.COLON_ITS ---
Patient Name: Maxime Gunter Procedure Date: 03/24/2025 8:20 AM Date of : 1960 Age: 64 Procedure: Colonoscopy Indications: High risk colon cancer surveillance: Personal history of colon cancer Providers: Daniel Ramirez MD Medicines: Propofol per Anesthesia Patient Profile: This is a 64 year old male. Refer to note in patient chart for documentation of history and physical. Last Colonoscopy: 1 year ago. Complications: No immediate complications. Procedure: Pre-Anesthesia Assessment: - Prior to the procedure, a History and Physical was performed, and patient medications and allergies were reviewed. The patient's tolerance of previous anesthesia was also reviewed. The risks and benefits of the procedure and the sedation options and risks were discussed with the patient. All questions were answered, and informed consent was obtained. Prior Anticoagulants: The patient has taken no anticoagulant or antiplatelet agents. After reviewing the risks and benefits, the patient was deemed in satisfactory condition to undergo the procedure. After I obtained informed consent, the scope was passed under direct vision. Throughout the procedure, the patient's blood pressure, pulse, and oxygen saturations were monitored continuously. The pediatric colonoscope was introduced through the anus and advanced to the cecum, identified by appendiceal orifice and ileocecal valve. The colonoscopy was performed without difficulty. The patient tolerated the procedure well. The quality of the bowel preparation was good. The ileocecal valve, appendiceal orifice, and rectum were photographed. Scope In: 8:34:38 AM Scope Withdrawal Time 0 hours 4 minutes 51 seconds Scope Out: 8:42:10 AM Total Procedure Duration Time 0 hours 7 minutes 32 seconds Findings: The entire examined colon appeared normal on direct and retroflexion views. Impression: - The entire examined colon is normal on direct and retroflexion views. - No specimens collected. Recommendation: - Discharge patient to home. - Resume previous diet. - Continue present medications. - Repeat colonoscopy in 3 years for screening purposes. Procedure Code(s): --- Professional --- 27178, Colonoscopy, flexible; diagnostic, including collection of specimen(s) by brushing or washing, when performed (separate procedure) Diagnosis Code(s): --- Professional --- Z85.038, Personal history of other malignant neoplasm of large intestine CPT copyright 2021 [employer]. All rights reserved. The codes documented in this report are preliminary and upon podiatric assistant review may be revised to meet current compliance requirements. Daniel Ramirez MD 03/24/2025 8:46:01 AM This report has been signed electronically. Number of Addenda: 0 Note Initiated On: 03/24/2025 8:20 AM
--- NOTE | 2025-03-24 08:46 | OP.CCLET_ITS ---
03/24/2025 Hao Membreno [address] [place] [address] Re : Colonoscopy procedure for Maxime Gunter Dear Dr. Membreno This procedure was performed on Monday, March 24, 2025. My impressions and recommendations are as follows: Impressions : - The entire examined colon is normal on direct and retroflexion views. - No specimens collected. Recommendations : - Discharge patient to home. - Resume previous diet. - Continue present medications. - Repeat colonoscopy in 3 years for screening purposes. My findings are described in the full procedure note, which is enclosed. If I can be of further assistance, please feel free to contact me at Doctor phone number(s): , Work: . Sincerely, Daniel Ramirez MD 03/24/2025 8:46:01 AM This report has been signed electronically.
[2025-03-24 08:49] VITALS: BP 120/72; BP 130/71; PULSE 65; RESP 16; TEMP 36.4; O2SAT 95
--- NOTE | 2025-03-24 08:53 | PCM.POST.ANE ---
Anesthesia: Postop Eval I Current Vital Signs Temperature: 97.6 F Pulse Rate: 62 Blood Pressure: 130/71 Respiratory Rate: 16 Pulse Ox: 95 Oxygen Delivery Method: Room Air Assessment Airway patent: Yes Spontaneous unlabored respirations: Yes Mental status: Awake and Calm nausea: No Vomiting: No Anesthesia Complication: No Fluid Hydration Crystalloid volume administer (ml): 500 Total IV fluid infused: 500 Progress Note Anesthesia document: Postop Eval 1 completed: Yes
[2025-03-24 08:54] VITALS: BP 120/72; BP 130/71; BP 134/74; PULSE 62; RESP 16; TEMP 36.4; O2SAT 95
[2025-03-24 08:59] VITALS: BP 120/72; BP 124/80; PULSE 65; RESP 16; TEMP 36.4; O2SAT 99
[2025-03-24 09:27] VITALS: BP 120/72
--- NOTE | 2025-03-24 11:44 | PCM.POSTANE2 ---
Anesthesia Postop Eval I Sum Postop Eval Completion status Anesthesia document: Postop Eval 1 completed: Yes Anesthesia Postop Eval I Summary Anesthesia Postop Eval I Summary: Anesthesia Postop Eval I: Assessment Summary Airway patent Yes 03/24/25 08:54 [email or web address] Spontaneous unlabored Yes 03/24/25 08:54 [email or web address] respirations Mental status Awake,Calm 03/24/25 08:54 [email or web address] nausea No 03/24/25 08:54 [email or web address] Vomiting No 03/24/25 08:54 [email or web address] Anesthesia Postop Eval I: Fluid Summary Crystalloid volume administer 500 03/24/25 08:54 [email or web address] (ml) Colloids volume administered ( ml) Blood Product volume administered (ml) Total IV fluid infused 500 03/24/25 08:54 [email or web address] Anesthesia Postop Eval I: Summary Notes Anesthesia Complication No 03/24/25 08:54 [email or web address] Anesthesia Complication Comment: Post-operative progress note Anesthesia: Postop Eval II Evaluation Mental status: Awake Pain Level: 0 nausea: No Vomiting: No
== END 2025-03-24 09:30 | disposition home or self-care (01) ==
LOC: EN 07:23 → AC 07:24
PROVIDERS: PCP Family Medicine; Referring Provider Family Medicine; Visit Provider Surgery
PROC: 0DJD8ZZ Inspection of Lower Intestinal Tract, Via Natural or Artificial Opening Endoscopic (ICD-10-PCS; CPT 45378; principal; 2025-03-24 08:25)
DX: Z12.11 Encounter for screening for malignant neoplasm of colon (principal); Z92.3 Personal history of irradiation; Z92.21 Personal history of antineoplastic chemotherapy; E78.00 Pure hypercholesterolemia, unspecified; K21.9 Gastro-esophageal reflux disease without esophagitis; I10 Essential (primary) hypertension; G47.33 Obstructive sleep apnea (adult) (pediatric); Z86.16 Personal history of COVID-19; Z86.718 Personal history of other venous thrombosis and embolism; Z79.82 Long term (current) use of aspirin; Z79.899 Other long term (current) drug therapy; Z79.01 Long term (current) use 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s; Z86.711 Personal history of pulmonary embolism; Z85.038 Personal history of other malignant neoplasm of large intestine
CPT/HCPCS: G0121; 36416; 85610; J2405

== ENCOUNTER → 2025-04-06 | Outpatient (CLI) | payer MEDICARE, OTHER, SELFPAY ==
[2025-04-06 08:32] LABS: Mucous, Urine 0 SEEN /hpf (<or=2+); Red Blood Cells-Urine 0 SEEN /hpf (0-5)
[2025-04-06 10:20] LABS: Hematocrit 39.2 % (40-54); Hemoglobin 13.4 g/dL (13.0-16.5); Immature Granulocytes Count 0.020 X10^3/uL (0.0-0.0); Mean Corp Hgb Conc 34.2 g/dL (32-36); Mean Corpuscular Volume 92.2 fL (80-94); Mean Platelet Vol. 9.5 fl (6.2-12.0); NRBC Flagged by Analyzer 0 % (0-5); POSITIVE DIFFERENTIAL YES; Platelet Count 247 K/mm3 (150-450); RBC Distribution Width CV 13.5 % (11.6-14.6); RBC Distribution Width SD 45.5 fl (35.1-43.9); Red Blood Count 4.25 M/mm3 (4.6-6.2); White Blood Count 4.9 K/mm3 (4.4-11.0)
[2025-04-06 10:50] LABS: Color, Urine Straw (Yellow); Glucose, Dipstick Normal (Normal); Ketone-Dipstick Negative (Negative); Leukocyte Esterase-Dipstick Negative /ul (Negative); Nitrite-Dipstick Negative (Negative); Occult Blood-Urine Negative /ul (Negative); Protein-Dipstick Negative (Negative); Specific Gravity, Urine 1.015 (1.002-1.030); Urine Bilirubin Dipstick Negative (Negative)
[2025-04-06 11:07] LABS: Squamous Epithelial Cells - UA 0-5 SEEN /hpf (0-5)
[2025-04-06 11:36] LABS: AST(SGOT) 21 U/L (<=37); Alanine Aminotransfer ALT/SGPT 17 U/L (<=46); Albumin, Serum 3.9 g/dL (3.4-4.8); Alkaline Phosphatase 94 U/L (40-129); Anion Gap 12 (5-15); BUN 17 mg/dL (4-19); BUN/Creat Ratio 16.9 RATIO (10-20); Calcium,Total 9.3 mg/dL (7.6-11.0); Carbon Dioxide 20.8 mmol/L (21.0-32.0); Chloride 106 mmol/L (98-108); Cholesterol 147 mg/dL (<=200); Globulin 2.9 g/dL (2.2-4.2); Glucose 98 mg/dL (70-99); Low Density Lipoprotein Calc. 93 mg/dL; Magnesium 2.2 mg/dL (1.5-2.2); Potassium 3.9 mmol/L (3.3-5.1); Triglycerides 79 mg/dL; Very Low Density Lipoprotein 16 mg/dL (5-40); Vitamin D,25 Hydroxy 44.9 ng/mL (30-100); cholesterol:hdl ratio screen 3.83
== END | disposition home or self-care (01) ==
LOC: MFPLAB 08:29
PROVIDERS: PCP Family Medicine; Referring Provider Family Medicine; Visit Provider Family Medicine
DX: R73.02 Impaired glucose tolerance (oral) (principal); I48.91 Unspecified atrial fibrillation; E78.00 Pure hypercholesterolemia, unspecified; E55.9 Vitamin D deficiency, unspecified; I10 Essential (primary) hypertension
CPT/HCPCS: 36415; 80053; 80061; 81001; 82306; 83036; 83735; 85025

== ENCOUNTER 2025-04-24 06:36 | Inpatient (IN) | payer MEDICARE, OTHER, SELFPAY ==
[2025-04-24] VITALS (9 sets, daily range): BP systolic 106–139; BP diastolic 62–79; PULSE 77–152; RESP 14–21; TEMP 36.3–36.8; O2SAT 95–100; BMI 36.8; BMI 36.6
--- NOTE | 2025-04-24 07:02 | CT_ITS ---
PROCEDURE: SPINE CERVICAL WITHOUT CONTRAS 04/24/2025 REASON FOR EXAM: HEAD TRAUMA TECHNIQUE: SPINE CERVICAL WITHOUT CONTRAS Coronal and Sagittal reconstruction series were provided. One or more dose reduction techniques were used (e.g., Automated exposure control, adjustment of the mA and/or kV according to patient size, use of iterative reconstruction technique. RADIATION DOSE SUMMARY: DLP: 674 mGycm COMPARISON: February 14, 2024 FINDINGS: There is loss of the lordosis. Visualized skull base and craniocervical junction demonstrate no evidence of fracture or dislocation. There is no evidence of cervical spine fracture. Alignment is normal. No soft tissue abnormality is seen. Disc spaces are narrowed from C5-7. Visualized portions of the lung apices demonstrate no evidence of pneumothorax. A central line is noted in the right. Atherosclerotic calcifications are visible. CT/Spine Cervical without Contras IMPRESSION: There is loss of the lordosis. There is loss of disc height from C5-7. There is no visible acute traumatic injury. Reading Location: [facility]
--- NOTE | 2025-04-24 07:02 | CT_ITS ---
EXAM: NONCONTRAST CT SCAN OF THE HEAD CLINICAL HISTORY: Head trauma, syncope, on blood thinners COMPARISON: February 14, 2024 TECHNIQUE: Serial axial series through the head were obtained without contrast. 2-D coronal and sagittal reformats were then obtained. FINDINGS: Brain: There is no acute large territorial infarct, intracranial hemorrhage, midline shift or mass effect. There are atherosclerotic vascular calcifications involving the bilateral carotid siphons. The sella and pineal gland regions appear unremarkable. Evaluation of the brainstem is limited due to beam hardening artifact. There is no evidence of cerebellar tonsillar herniation. Ventricles: There is no acute hydrocephalus. Basilar cisterns are patent. Paranasal sinuses: Well-aerated Mastoid air cells: Well-aerated. Calvarium: The bony calvarium is intact. Orbits: The bilateral globes are symmetric, without retrobulbar compressive mass lesion or hemorrhage. CT/Brain/Head without Contrast IMPRESSION: No acute intracranial pathology. Reading Location: [facility]
--- NOTE | 2025-04-24 07:02 | CT_ITS ---
PROCEDURE: ABDOMEN/PELVIS W IV CONT ONLY 04/24/2025 REASON FOR EXAM: ABDOMINAL PAIN, DIARRHEA TECHNIQUE: ABDOMEN/PELVIS W IV CONT ONLY Coronal and Sagittal reconstruction series were provided. CONTRAST: Isovue-300 VOLUME: 100 mL One or more dose reduction techniques were used (e.g., Automated exposure control, adjustment of the mA and/or kV according to patient size, use of iterative reconstruction technique. RADIATION DOSE SUMMARY: CTDlvol: 30 mGy DLP: 2941.45 mGycm COMPARISON: Prior study dated March 23, 2024. FINDINGS: Lung bases: The lung bases are clear. The stomach is distended with fluid and residual food particles. Liver: Diffuse fatty infiltration. Gallbladder: Unremarkable Spleen: Normal size. Pancreas: Diffuse fatty atrophy. Adrenals: Unremarkable Kidneys: Normal renal sizes. No hydronephrosis. Bladder: Unremarkable Central prostatic calcifications. Bowel: Colonic diverticulosis without diverticulitis. Appendix: Unremarkable Lymph nodes: Unremarkable. Vasculature: The abdominal aorta and IVC are normal. Peritoneum / Retroperitoneum: Small right inguinal hernia containing fat. Bones: Degenerative changes of the spine. Minimal anterior listhesis of L4 on L5. CT/Abdomen/Pelvis W IV Cont ONLY IMPRESSION: Fatty infiltration of the liver. The stomach is distended with fluids as well as residual food particles. Scattered sigmoid diverticula. Reading Location: [place] [address]
--- NOTE | 2025-04-24 07:07 | EKG12_ITS ---
Test Reason : SYNCOPE Blood Pressure : */* mmHG Vent. Rate : 94 BPM Atrial Rate : 94 BPM P-R Int : 162 ms QRS Dur : 82 ms QT Int : 354 ms P-R-T Axes : 42 15 29 degrees QTcB Int : 442 ms Normal sinus rhythm Normal ECG Confirmed by Wili Youngblood ([id number]), development editor AMISHA PULIDO ([id number]) on 04/25/2025 11:38:45 AM Referred By: ER/BB Confirmed By: Wili Youngblood
[2025-04-24] MEDS: 0.9% Normal Saline (1000mL) 1,000 ML 1000 ML IV (07:10)
[2025-04-24 07:12] LABS: Hematocrit 50.9 % (40-54); Hemoglobin 17.0 g/dL (13.0-16.5); Immature Granulocytes Count 0.040 X10^3/uL (0.0-0.0); Mean Corp Hgb Conc 33.4 g/dL (32-36); Mean Corpuscular Volume 93.9 fL (80-94); Mean Platelet Vol. 10.0 fl (6.2-12.0); NRBC Flagged by Analyzer 0 % (0-5); POSITIVE COUNT YES; Platelet Count 297 K/mm3 (150-450); RBC Distribution Width CV 14.2 % (11.6-14.6); RBC Distribution Width SD 48.6 fl (35.1-43.9); Red Blood Count 5.42 M/mm3 (4.6-6.2); White Blood Count 11.1 K/mm3 (4.4-11.0)
--- NOTE | 2025-04-24 07:25 | RAD_ITS ---
PROCEDURE: CHEST PA AND LATERAL 04/24/2025 REASON FOR EXAM: SYNCOPE TECHNIQUE: CHEST PA AND LATERAL COMPARISON: Prior study dated September 20, 2024. FINDINGS: Hardware: A right-sided port a catheter is seen with the tip at the junction of the superior vena cava and right atrium. EKG electrodes are seen. Heart: Borderline cardiomegaly. Mediastinum: The mediastinal contour is unremarkable. Lungs: The lungs are clear. Bones: Degenerative changes are identified within the thoracic spine. RAD/Chest PA and Lateral IMPRESSION: NO ACUTE FINDINGS. Reading Location: [facility]
[2025-04-24 07:41] LABS: Lipase 31 U/L (13-75); Troponin T High Sensitivity 20 ng/L (<=22)
[2025-04-24 07:51] LABS: AST(SGOT) 26 U/L (<=37); Alanine Aminotransfer ALT/SGPT 22 U/L (<=46); Albumin, Serum 4.9 g/dL (3.4-4.8); Alkaline Phosphatase 132 U/L (40-129); Anion Gap 21 (5-15); BUN 30 mg/dL (4-19); BUN/Creat Ratio 12.3 RATIO (10-20); Calcium,Total 10.2 mg/dL (7.6-11.0); Carbon Dioxide 13.7 mmol/L (21.0-32.0); Chloride 102 mmol/L (98-108); Estimated Creatinine Clearance 38.51 ml/min (50-250); Globulin 3.9 g/dL (2.2-4.2); Glucose 159 mg/dL (70-99); Potassium 4.2 mmol/L (3.3-5.1)
--- NOTE | 2025-04-24 07:52 | EX.ED.DYSGE1 ---
HPI History of Present Illness Chief Complaint: Syncope Narrative Narrative: Patient is a 65-year-old male presenting to the emergency department for diarrhea. Patient has a past medical history as below including history of rectal cancer. States that he is not on any current treatment for this. Currently being monitored. He is on warfarin. States that for the past 2 days he has been having numerous episodes of nonbloody diarrhea. Reports that he is had more than 20 episodes a day. He denies any recent antibiotic use or travel. Reports some nausea. Denies fever, chills, chest pain, shortness of breath, abdominal pain, dysuria, hematuria or vomiting. States that on arrival here he pressed the doorbell and then felt a little lightheaded and syncopized. [facility] Medical History History of stress test Anxiety CPAP (continuous positive airway pressure) dependence Diverticulitis Low back pain Thyroid disease History of echocardiogram Cancer Rectal cancer High cholesterol DVT (deep venous thrombosis) Gastric reflux Non-smoker History of edema Cardiology follow-up encounter Hypertension Weight gain with edema History of venous thromboembolism Pulmonary embolism (06/10/18) Arthritis Home Medications ?Medication ?Instructions ?Recorded ?Last Taken ?Type cholecalciferol (vitamin D3) 50 2,000 unit PO DAILY supplement 06/16/19 03/23/25 History mcg (2,000 unit) capsule furosemide 40 mg tablet 40 mg PO DAILY diuretic 06/16/19 03/23/25 History benazepril 20 mg tablet 20 mg PO DAILY blood pressure 01/09/21 03/23/25 History sertraline 50 mg tablet 50 mg PO QHS depression 01/09/21 03/23/25 History omeprazole 20 mg capsule,delayed 20 mg PO Q OTHER DAY GERD 10/25/21 03/24/25 History release aspirin 81 mg tablet,delayed 81 mg PO DAILY heart #90 tabs 01/15/24 03/17/25 Rx release (Enteric Coated Aspirin) warfarin 5 mg tablet 7 mg PO MOTUWETHFR blood thinner 02/14/24 03/16/25 History acetaminophen 500 mg tablet 500 mg PO Q6H PRN pain 06/09/24 Unknown History (Tylenol Extra Strength) rosuvastatin 5 mg tablet (Crestor) 5 mg PO Q OTHER DAY cholesterol 01/12/25 03/23/25 Rx #45 tabs tirzepatide (weight loss) 2.5 7.5 mg subcut KOEHLER 02/03/25 03/12/25 History mg/0.5 mL subcutaneous pen injector (Zepbound) warfarin 5 mg tablet 8 mg PO SUSA 03/23/25 03/16/25 History diltiazem HCl 300 mg 300 mg PO QDAY heart #90 caps 04/18/25 Unknown Rx capsule,extended release 24 hr Allergy/AdvReac Type Severity Reaction Status Date / Time simvastatin AdvReac Severe Myalgias Verified 04/24/25 06:37 doxycycline AdvReac Intermediate GI upset Verified 04/24/25 06:37 Family History Mother CAD (coronary artery disease) Diabetes Hypertension Hyperlipidemia Heart disease Father CVA (cerebral vascular accident) Surgical History History of cardiac ablation for atrial fibrillation S/P left rotator cuff repair S/P ablation of atrial fibrillation History of vascular access device History of cardiac catheterization History of colonoscopy (~06/2016) History of left heart catheterization (10/21/18) History of left inguinal hernia repair History of appendectomy History of hip surgery Social History Smoking Status: Never smoker second hand exposure: Yes alcohol intake: never substance use type: does not use caffeine: Yes Type: carbonated beverages Number of servings: 1 ROS ROS ED ROS Narrative see HPI EXAM Physical Exam Narrative Exam Narrative: Vital signs: Reviewed General: Alert and oriented. No acute distress HEENT: Head is normocephalic. Superficial abrasion to the right parietal region of the head. There is no hematoma. No active bleeding. sinuses nontender, pupils equal round and reactive. Nares are patent. Oropharynx and throat exams normal. Neck: Supple without lymphadenopathy nontender. No midline cervical spinal tenderness to palpation. No step-offs or deformities. Cardiovascular: Regular rate and rhythm, no murmurs. No rubs or gallops. Normal S1 and S2 Respiratory: Clear to auscultation bilaterally. No wheezes, rales, rhonchi Abdominal: Soft and generalized tenderness to palpation throughout. Hyperactive bowel sounds. No guarding or rebound. Nonsurgical abdomen Extremities: No tenderness. No bruising. Normal range of motion. Normal sensation. Hips are stable nontender to palpation. No midline thoracic or lumbar spinal tenderness to palpation. No step-offs or deformities. Extremities are atraumatic. Skin: No rash or redness. Neurological: Cranial nerves II through XII are grossly intact. Normal strength and sensation. Normal cerebellar function The rest of the physical exam is unremarkable Const Vital Signs: 04/24/25 06:37 04/24/25 06:37 04/24/25 06:41 Temperature 97.7 F L 97.7 F L Temperature Source Oral Oral Pulse Rate 90 92 Respiratory Rate 21 H 18 Respiratory Effort Normal Respiratory Pattern Normal Blood Pressure 139/79 H 139/79 H Blood Pressure Mean 99 99 Pulse Ox 100 100 Oxygen Delivery Method Room Air Room Air 04/24/25 07:54 04/24/25 08:04 Temperature 97.3 F L 97.3 F L Temperature Source Temporal Temporal Pulse Rate 85 86 Respiratory Rate 17 16 Respiratory Effort Respiratory Pattern Blood Pressure 116/63 114/68 Blood Pressure Mean 80 83 Pulse Ox 95 97 Oxygen Delivery Method MDM MDM MDM Narrative Medical decision making narrative: Patient is a 65-year-old male presenting to the emergency department for diarrhea. Patient was seen and examined. Vitals are stable. Patient resting bed comfortably no acute distress. Patient started on fluids. Differential includes but is not limited to: Gastroenteritis, c diff, hypovolemia, cardiac dysrhythmia, electrolyte imbalance Given the patient did syncopize and strike his head, witnessed on our camera CT brain and cervical spine were ordered. EKG, chest x-ray and troponins also obtained to rule out a cardiac cause of his syncope. I suspect is likely hypovolemia from his multiple episodes of diarrhea. CBC with WBC of 11.1 and hemoglobin of 17 labs do appear to be hemoconcentrated. BMP with significant SRINIVAS. Lactic within normal limits. Lipase within normal limits. Troponin within normal meds. EKG shows normal sinus rhythm with no ischemic changes. CT brain with no acute intracranial abnormalities. CT cervical spine shows no acute traumatic injury. CT abdomen pelvis shows fatty infiltration with a distended stomach and scattered sigmoid diverticula. Chest x-ray shows no acute radiographic abnormalities. Discussed findings with patient at bedside. Recommended admission for further fluid resuscitation given significant SRINIVAS. They were agreeable. Patient admitted to Dr. Castellanos for further managment. History & Record Review Discussion w/independent historian: Patient and Family Lab Data Attestation: I reviewed the patient's lab results. Labs: Laboratory Results - last 24 hr 04/24/25 04/24/25 06:50 07:10 WBC 11.1 H RBC 5.42 Hgb 17.0 H Hct 50.9 MCV 93.9 MCH 31.4 MCHC 33.4 RDW Std Deviation 48.6 H RDW Coeff of [place] 14.2 Plt Count 297 MPV 10.0 Immature Gran % (Auto) 0.400 Neut % (Auto) 87.1 H Lymph % (Auto) 6.7 L [place] % (Auto) 4.8 Eos % (Auto) 0.7 Baso % (Auto) 0.3 Absolute Neuts (auto) 9.7 H Absolute Lymphs (auto) 0.74 L Nucleated RBC % 0 Sodium 137 Potassium 4.2 Chloride 102 Carbon Dioxide 13.7 L Anion Gap 21 H BUN 30 H Creatinine 2.45 H Estim Creat Clear Calc 38.51 L Est GFR (MDRD) Non-Af 28 L BUN/Creatinine Ratio 12.3 Glucose 159 H Lactic Acid 1.5 Calcium 10.2 Total Bilirubin 0.50 AST 26 ALT 22 Alkaline Phosphatase 132 H Troponin T High Sens 20 Total Protein 8.8 H Albumin 4.9 H Globulin 3.9 Albumin/Globulin Ratio 1.2 Lipase 31 Radiography Chest X-Ray - ED: 2 View, Read by ED Physician, No Acute Disease and No Infiltrates Diagnostic Testing: Clinical Impression(s) from Imaging Studies Abdomen/Pelvis CT 04/24/25 07:02 IMPRESSION: Fatty infiltration of the liver. The stomach is distended with fluids as well as residual food particles. Scattered sigmoid diverticula. Reading Location: [facility] 04/24/25 07:02 IMPRESSION: No acute intracranial pathology. [facility] Cervical Spine CT 04/24/25 07:02 IMPRESSION: There is loss of the lordosis. There is loss of disc height from C5-7. There is no visible acute traumatic injury. Reading Location: [facility] Chest X-Ray 04/24/25 07:25 IMPRESSION: NO ACUTE FINDINGS. Reading Location: [place] [address] Discharge Plan Triage Chief Complaint: Syncope Other Complaint: Diarrhea ED Provider: Carolina Lakhani Dx/Rx/DC Orders Prescriptions: No Action benazepril 20 mg tablet 20 mg PO DAILY Patient Comments: TAKE 1 TABLET BY MOUTH EVERY DAY sertraline 50 mg tablet 50 mg PO QHS acetaminophen [Tylenol Extra Strength] 500 mg tablet 500 mg PO Q6H PRN (Reason: pain) Zepbound 2.5 mg/0.5 mL pen injector 7.5 mg subcut KOEHLER Rx Instructions: for 4 weeks cholecalciferol (vitamin D3) 2,000 UNIT capsule 2,000 unit PO DAILY omeprazole 20 mg capsule,delayed release(DR/EC) 20 mg PO Q OTHER DAY warfarin 5 mg tablet 8 mg PO SUSA warfarin 5 mg tablet 7 mg PO MOTUWETHFR Protocol: Dose Management Condition: Thursday Dose/Route: 8 mg Instruction: 3 x 1 mg tablets, 1 x 5 mg tablet Condition: Thursday Dose/Route: 7 mg Instruction: 2 x 1 mg tablets, 1 x 5 mg tablet Condition: Thursday Dose/Route: 7 mg Instruction: 2 x 1 mg tablets, 1 x 5 mg tablet Condition: Thursday Dose/Route: 7 mg Instruction: 2 x 1 mg tablets, 1 x 5 mg tablet Condition: Dose/Route: 7 mg Instruction: 2 x 1 mg tablets, 1 x 5 mg tablet Condition: Thursday Dose/Route: 7 mg Instruction: 2 x 1 mg tablets, 1 x 5 mg tablet Condition: Thursday Dose/Route: 8 mg Instruction: 3 x 1 mg tablets, 1 x 5 mg tablet Protocol Text: Adjustment Start Date: Thursday02/28/25 INR Value: 2.0 INR Date: 02/28/25 Recheck Date: 03/30/25 Rx Instructions: 7 MG ON WEEKDAYS 8 MG ON WEEKENDS furosemide 40 mg tablet 40 mg PO DAILY aspirin [Enteric Coated Aspirin] 81 mg tablet,delayed release (DR/EC) 81 mg PO DAILY Qty: 90 3RF rosuvastatin [Crestor] 5 mg tablet 5 mg PO Q OTHER DAY Qty: 45 3RF diltiazem HCl 300 mg capsule,extended release 24hr 300 mg PO QDAY Qty: 90 3RF Primary Care Provider: Hao Membreno Referrals: Hao Membreno MD [Primary Care Provider] - Print Language: Croatian
--- NOTE | 2025-04-24 08:16 | PCM.HP.STD ---
HPI - General General Date of Admission: 04/24/25 Date of Service: 04/24/25 Chief Complaint: syncope HPI Narrative MIGUE STROUD, is a 65 M with a PMH as outlined who presents via the ED On 04/24/2025 with a complaint of diarrhea nad syncope. He has a history of rectal cancer and has had multiple episodes of diarrhea over the past few days. He is on coumadin. He says he has been having nonbloody diarrhea for several days, but denied any nausea, abdominal pain, fever or chills or any other symptoms. Review of sysems was otherwise negative. On arrival in the ED patient had syncope. Vitals in the ED were blood pressure 114/68, pulse rate of 86, respiratory rate of 16 and temperature of 97.3 Fahrenheit. Oxygen saturation was 97% on room air. CBC showed hemoglobin of 17 with WBC of 11.1 and platelets of 297. Chemistry showed sodium of 137 with potassium of 4.2 and bicarb of 13.7. Anion gap is 21 and creatinine is 2.45 with a baseline creatinine of around 0.9. CT brain showed no acute intracranial pathology. CT of the abdomen and pelvis showed fatty infiltration of the liver and the stomach was distended with fluids as well as residual food particles and scattered sigmoid diverticula. Cervical spine CT showed loss of lordosis and loss of disc height from C5-7 with no visible acute traumatic injury. Chest x-ray showed no acute cardiopulmonary pulmonary findings. He has been admitted to be managed for syncope likely due to dehydration as well as SRINIVAS from dehydration as result of diarrhea. [facility] Medical History History of stress test Anxiety CPAP (continuous positive airway pressure) dependence Diverticulitis Low back pain Thyroid disease History of echocardiogram Cancer Rectal cancer High cholesterol DVT (deep venous thrombosis) Gastric reflux Non-smoker History of edema Cardiology follow-up encounter Hypertension Weight gain with edema History of venous thromboembolism Pulmonary embolism (06/10/18) Arthritis Home Medications ?Medication ?Instructions ?Recorded ?Last Taken ?Type cholecalciferol (vitamin D3) 50 2,000 unit PO DAILY supplement 06/16/19 03/23/25 History mcg (2,000 unit) capsule furosemide 40 mg tablet 40 mg PO DAILY diuretic 06/16/19 03/23/25 History benazepril 20 mg tablet 20 mg PO DAILY blood pressure 01/09/21 03/23/25 History sertraline 50 mg tablet 50 mg PO QHS depression 01/09/21 03/23/25 History omeprazole 20 mg capsule,delayed 20 mg PO Q OTHER DAY GERD 10/25/21 03/24/25 History release aspirin 81 mg tablet,delayed 81 mg PO DAILY heart #90 tabs 01/15/24 03/17/25 Rx release (Enteric Coated Aspirin) warfarin 5 mg tablet 7 mg PO MOTUWETHFR blood thinner 02/14/24 03/16/25 History acetaminophen 500 mg tablet 500 mg PO Q6H PRN pain 06/09/24 Unknown History (Tylenol Extra Strength) rosuvastatin 5 mg tablet (Crestor) 5 mg PO Q OTHER DAY cholesterol 01/12/25 03/23/25 Rx #45 tabs tirzepatide (weight loss) 2.5 7.5 mg subcut KOEHLER 02/03/25 03/12/25 History mg/0.5 mL subcutaneous pen injector (Zepbound) warfarin 5 mg tablet 8 mg PO SUSA 03/23/25 03/16/25 History diltiazem HCl 300 mg 300 mg PO QDAY heart #90 caps 04/18/25 Unknown Rx capsule,extended release 24 hr Allergy/AdvReac Type Severity Reaction Status Date / Time simvastatin AdvReac Severe Myalgias Verified 04/24/25 06:37 doxycycline AdvReac Intermediate GI upset Verified 04/24/25 06:37 Family History Mother CAD (coronary artery disease) Diabetes Hypertension Hyperlipidemia Heart disease Father CVA (cerebral vascular accident) Surgical History History of cardiac ablation for atrial fibrillation S/P left rotator cuff repair S/P ablation of atrial fibrillation History of vascular access device History of cardiac catheterization History of colonoscopy (~06/2016) History of left heart catheterization (10/21/18) History of left inguinal hernia repair History of appendectomy History of hip surgery Social History (Updated 04/24/25 @ 10:41 by June Lew) household members: spouse housing: house Smoking Status: Never smoker second hand exposure: Yes alcohol intake: never substance use type: does not use caffeine: Yes Type: carbonated beverages Number of servings: 1 ROS Constitutional Constitutional: Reports anorexia, fatigue, malaise and weakness; Denies chills or fever(s) Eyes Eyes: Denies change in vision ENT HEENT: Denies dysphagia or headache(s) Cardiovascular Cardiovascular: Reports lightheadedness and syncope; Denies chest pain, dyspnea on exertion, edema, orthopnea, palpitations, paroxysmal nocturnal dyspnea or rapid heart rate Respiratory/Chest Respiratory/Chest: Denies cough, dyspnea, productive cough, shortness of breath at rest or shortness of breath with exertion Gastrointestinal Gastrointestinal: Reports diarrhea and nausea; Denies abdominal pain, constipation, dyspepsia, hematemesis, hematochezia, loose stools, melena or vomiting Genitourinary Genitourinary: Denies burning urination or dysuria Musculoskeletal Musculoskeletal: Denies back pain Neurologic Neurologic: Denies confusion, dizziness, focal weakness, headache(s), numbness, paresthesias or seizures Vital Signs Vital Signs Vital Signs: 04/24/25 06:37 04/24/25 06:37 04/24/25 06:41 Temperature 97.7 F L 97.7 F L Temperature Source Oral Oral Pulse Rate 90 92 Respiratory Rate 21 H 18 Respiratory Effort Normal Respiratory Pattern Normal Blood Pressure 139/79 H 139/79 H Blood Pressure Mean 99 99 Pulse Ox 100 100 Oxygen Delivery Method Room Air Room Air 04/24/25 07:54 04/24/25 08:04 Temperature 97.3 F L 97.3 F L Temperature Source Temporal Temporal Pulse Rate 85 86 Respiratory Rate 17 16 Respiratory Effort Respiratory Pattern Blood Pressure 116/63 114/68 Blood Pressure Mean 80 83 Pulse Ox 95 97 Oxygen Delivery Method Weight Weight: 263 lb 14.293 oz Body Mass Index (BMI) 36.8 Physical Exam Const alert, oriented x3 and no apparent distress General Appearance: cooperative HEENT normocephalic, head/scalp atraumatic and hearing grossly normal bilaterally HEENT Narrative: dry oral mucosa Eyes PERRL, EOMs intact bilaterally and conjunctivae normal Neck no lymphadenopathy Resp normal respiratory effort Cardio regular rate, regular rhythm, S1 normal heart sound, S2 normal heart sound and no murmurs GI normal to inspection, nondistended, normoactive bowel sounds, soft to palpation and non-tender Extremity normal to inspection, full ROM and no clubbing, cyanosis or edema Neuro oriented x3, CN's II-XII intact bilaterally, moves all extremities and no focal motor deficits Sensorium / Orientation: awake and alert Motor Exam: strength 5/5 throughout Psych affect normal Results Lab / Micro Data 04/24/25 06:50 04/24/25 06:50 Labs: Laboratory Results - last 24 hr 04/24/25 06:50: WBC 11.1 H, RBC 5.42, Hgb 17.0 H, Hct 50.9, MCV 93.9, MCH 31.4, MCHC 33.4, RDW Std Deviation 48.6 H, RDW Coeff of [place] 14.2, Plt Count 297, MPV 10.0, Immature Gran % (Auto) 0.400, Neut % (Auto) 87.1 H, Lymph % (Auto) 6.7 L, [place] % (Auto) 4.8, Eos % (Auto) 0.7, Baso % (Auto) 0.3, Absolute Neuts (auto) 9.7 H, Absolute Lymphs (auto) 0.74 L, Nucleated RBC % 0, Sodium 137, Potassium 4.2, Chloride 102, Carbon Dioxide 13.7 L, Anion Gap 21 H, BUN 30 H, Creatinine 2.45 H, Estim Creat Clear Calc 38.51 L, Est GFR (MDRD) Non-Af 28 L, BUN/Creatinine Ratio 12.3, Glucose 159 H, Calcium 10.2, Total Bilirubin 0.50, AST 26, ALT 22, Alkaline Phosphatase 132 H, Troponin T High Sens 20, Total Protein 8.8 H, Albumin 4.9 H, Globulin 3.9, Albumin/Globulin Ratio 1.2, Lipase 31 04/24/25 07:10: Lactic Acid 1.5 Imaging Radiology Impression Abdomen/Pelvis CT 04/24/25 07:02 IMPRESSION: Fatty infiltration of the liver. The stomach is distended with fluids as well as residual food particles. Scattered sigmoid diverticula. Reading Location: [facility] 04/24/25 07:02 IMPRESSION: No acute intracranial pathology. Reading Location: [facility] Cervical Spine CT 04/24/25 07:02 IMPRESSION: There is loss of the lordosis. There is loss of disc height from C5-7. There is no visible acute traumatic injury. Reading Location: [facility] Chest X-Ray 04/24/25 07:25 IMPRESSION: NO ACUTE FINDINGS. [facility] Assessment & Plan Assessment/Plan (1) SRINIVAS (acute kidney injury): (2) Diarrhea: (3) Syncope: PLAN: Plan #Syncope in the setting of profuse diarrhea with SRINIVAS and dehydration This was likely the cause of the syncope. However out of an abundance of precaution we will admit patient to PCU Creatinine is 2.85 with a baseline of less than 1. Says he has been having more than 20 episodes of diarrhea daily. Hydrate aggressively with IV fluid normal saline at 150 cc/h. Check stool enteric pathogen C. difficile. If these are negative, then will start on loperamide. WBC is elevated at 11.1. Will hold off on antibiotics for now until there is clearer evidence of an infectious etiology. CT abdomen/pelvis showed fatty infiltration of the liver with distended stomach, distended with fluids as well as residual food particles in scattered sigmoid diverticula Keep n.p.o. for now hydrate with IV fluid. IV Zofran as needed #Acute gastroenteritis: Management as above #History of rectal cancer, currently not undergoing any treatment #History of A-fib: On Cardizem. On Coumadin. INR is therapeutic #Hypertension: Hold benazepril and Lasix due to SRINIVAS. IV hydralazine. #Hyperlipidemia: On statin #Depression: On sertraline #Weight loss: Patient currently taking tirzepatide for weight loss, which is also known side effect of diarrhea. BMI is 36.7. Complicates acute care, expected recovery and prognosis. Tirzepatide on hold DVT prophylaxis: Not indicated as patient already on Coumadin. Code status: Full code Patient and counseled extensively about different types of CODE STATUS including full code, DNR CCA and DNR CCA. Patient elects to be full code. Total [id number] time 17 minutes. Charges/Coding Visit Charges Inpatient E&M: 16937 Init Hosp L3 Procedures Hospitalists Procedures: 57087 Advncd Care Plan 30 Min
[2025-04-24 08:26] LABS: Magnesium 2.6 mg/dL (1.5-2.2)
[2025-04-24] MEDS: 0.9% Normal Saline (1000mL) 1,000 ML 125 ML IV ×2 (11:47→20:29)
[2025-04-24] MEDS: Cholecalciferol (VIT D3) 25 MCG TABLET (1,000 UNITS) 50 MCG PO (11:52)
[2025-04-24 12:06] LABS: Prothrombin Time (Protime)PT. 27.7 SECONDS (11.7-14.9)
[2025-04-24 13:39] LABS: Troponin T High Sensitivity 15 ng/L (<=22)
[2025-04-24 15:32] LABS: Troponin T High Sens 2 HR 18 ng/L (<=22)
[2025-04-24 15:42] LABS: Mucous, Urine 0 SEEN /hpf (<or=2+)
[2025-04-24 17:33] LABS: Troponin T High Sens 4 HR 17 ng/L (<=22)
[2025-04-24 19:28] LABS: Color, Urine Yellow (Yellow); Glucose, Dipstick Normal (Normal); Ketone-Dipstick Negative (Negative); Leukocyte Esterase-Dipstick Negative /ul (Negative); Nitrite-Dipstick Negative (Negative); Occult Blood-Urine 10 /ul (Negative); Protein-Dipstick 30 mg/dl (Negative); Specific Gravity, Urine 1.020 (1.002-1.030); Urine Bilirubin Dipstick Negative (Negative)
[2025-04-24] MEDS: Warfarin (BKC) 3 MG Tablet PO (19:34)
[2025-04-24] MEDS: 0.9% Saline Lock 10 ML Syringe IV (19:42)
[2025-04-24 21:49] LABS: Red Blood Cells-Urine 0-5 SEEN /hpf (0-5)
[2025-04-24 21:50] LABS: Squamous Epithelial Cells - UA 0-5 SEEN /hpf (0-5)
[2025-04-25] VITALS (7 sets, daily range): BP systolic 135–180; BP diastolic 63–84; PULSE 84–144; RESP 16–18; TEMP 36.6–37.1; O2SAT 95–99
[2025-04-25 05:30] LABS: Hematocrit 49.3 % (40-54); Hemoglobin 16.4 g/dL (13.0-16.5); Immature Granulocytes Count 0.050 X10^3/uL (0.0-0.0); Mean Corp Hgb Conc 33.3 g/dL (32-36); Mean Corpuscular Volume 94.4 fL (80-94); Mean Platelet Vol. 9.3 fl (6.2-12.0); NRBC Flagged by Analyzer 0 % (0-5); POSITIVE DIFFERENTIAL YES; Platelet Count 281 K/mm3 (150-450); RBC Distribution Width CV 14.3 % (11.6-14.6); RBC Distribution Width SD 49.6 fl (35.1-43.9); Red Blood Count 5.22 M/mm3 (4.6-6.2); White Blood Count 12.0 K/mm3 (4.4-11.0)
[2025-04-25] MEDS: 0.9% Saline Lock 10 ML Syringe IV ×4 (05:49→23:07)
[2025-04-25 06:24] LABS: Anion Gap 14 (5-15); BUN 31 mg/dL (4-19); BUN/Creat Ratio 25.4 RATIO (10-20); Calcium,Total 9.7 mg/dL (7.6-11.0); Carbon Dioxide 16.7 mmol/L (21.0-32.0); Chloride 105 mmol/L (98-108); Estimated Creatinine Clearance 77.21 ml/min (50-250); Glucose 115 mg/dL (70-99); Potassium 4.8 mmol/L (3.3-5.1)
--- NOTE | 2025-04-25 09:13 | CASEMGMT ---
Dx: SRINIVAS, Dehydration LACE: 2 6-Clicks: 24 Medical record reviewed and patient evaluated for identification of discharge planning needs. Based on this review, at this time criteria are not present to indicate a need for discharge planning. Will remain available to assist with discharge planning needs as identified or requested.
[2025-04-25 09:57] LABS: Prothrombin Time (Protime)PT. 33.5 SECONDS (11.7-14.9)
[2025-04-25] MEDS: Aspirin E.C. 81 MG Tablet PO (10:09)
--- NOTE | 2025-04-25 10:25 | RAD_ITS ---
PROCEDURE: ABDOMEN SINGLE VIEW (PORTABLE) 04/25/2025 REASON FOR EXAM: DISTENDED, HYPOACTIVE BS TECHNIQUE: ABDOMEN SINGLE VIEW (PORTABLE) COMPARISON: None FINDINGS: Bowel gas: Gaseous distention of the proximal small bowel loops. Gas and fecal material is seen in the colon. Findings may represent either early small-bowel obstruction or ileus. Follow-up recommended. Calcifications: No suspicious calcifications. Bones: There are degenerative changes of the spine. Other: RAD/Abdomen Single View (Portable) IMPRESSION: Mildly distended small bowel loops as described. Gas and fecal material seen t hroughout the colon. This may represent either localized ileus versus possible early bowel obstruction. Radiographic follow-u p recommended. Reading Location: [facility]
--- NOTE | 2025-04-25 10:40 | PN_ITS ---
Subjective Subjective Patient seen and examined. He complained of abdominal pain. His abdomen is distended, and he says he is not passing gas. He admits to nausea but denies any vomiting. Review of systems is otherwise negative. Objective Data Objective Data Vital Signs: Vital Signs Temp Pulse Resp BP Pulse Ox O2 Del Method 98.1 F 91 16 150/84 H 98 Room Air 04/25/25 08:40 04/25/25 08:40 04/25/25 08:40 04/25/25 08:40 04/25/25 08:40 04/25/25 08:40 Oxygen Delivery Method Room Air Weight: 263 lb 0.183 oz Body Mass Index (BMI) 36.6 Intake & Output: Intake and Output for Last 24 Hours 04/23/25 04/24/25 04/25/25 23:59 23:59 23:59 Intake Total 1999 1600 / 1600 Balance 1999 Lab / Micro Data 04/25/25 04:45 04/25/25 04:45 Labs: Laboratory Results - last 24 hr 04/24/25 11:45: PT 27.7 H, INR 2.5 04/24/25 12:57: Troponin T High Sens 15 D 04/24/25 14:55: Troponin T Hi Sens 2 Hr 18 04/24/25 15:31: Urine Color Yellow, Urine Clarity Clear, Urine pH 5.0, Ur Specific [place] 1.020, Urine Protein 30 H, Urine Glucose (UA) Normal, Urine Ketones Negative, Urine Occult Blood 10 H, Urine Nitrite Negative, Urine Bilirubin Negative, Urine Urobilinogen Normal, Ur Leukocyte Esterase Negative, Urine RBC 0-5 SEEN, Urine WBC 0-5 SEEN, Ur Squamous Epith Cells 0-5 SEEN, Urine Bacteria 0 SEEN, Urine Mucus 0 SEEN 04/24/25 16:36: Troponin T Hi Sens 4Hr 17 04/25/25 04:45: WBC 12.0 H, RBC 5.22, Hgb 16.4, Hct 49.3, MCV 94.4 H, MCH 31.4, MCHC 33.3, RDW Std Deviation 49.6 H, RDW Coeff of [place] 14.3, Plt Count 281, MPV 9.3, Immature Gran % (Auto) 0.400, Neut % (Auto) 87.1 H, Lymph % (Auto) 3.4 L, [place] % (Auto) 8.4, Eos % (Auto) 0.4, Baso % (Auto) 0.3, Absolute Neuts (auto) 10.5 H, Absolute Lymphs (auto) 0.41 L, Nucleated RBC % 0, Sodium 135, Potassium 4.8, Chloride 105, Carbon Dioxide 16.7 L, Anion Gap 14, BUN 31 H, Creatinine 1.22 H, Estim Creat Clear Calc 77.21, Est GFR (MDRD) Non-Af 65, BUN/Creatinine Ratio 25.4 H, Glucose 115 H, Calcium 9.7 04/25/25 09:18: PT 33.5 H, INR 3.2 Micro: Microbiology 04/24/25 10:44 Stool Clostridioides difficile (PCR) - Final 04/24/25 10:32 Stool Enteric Bacteriology - Final Physical Exam Const alert, oriented x3 and no apparent distress General Appearance: cooperative HEENT normocephalic, head/scalp atraumatic and hearing grossly normal bilaterally Eyes PERRL, EOMs intact bilaterally and conjunctivae normal Neck no lymphadenopathy Resp normal respiratory effort Cardio regular rate, regular rhythm, S1 normal heart sound, S2 normal heart sound and no murmurs GI normal to inspection, nondistended, normoactive bowel sounds, soft to palpation and non-tender Extremity normal to inspection, full ROM and no clubbing, cyanosis or edema General Extremity: no tenderness to palpation of joints or extremities Skin General Skin Exam: no breakdown Neuro oriented x3, CN's II-XII intact bilaterally, moves all extremities and no focal motor deficits Sensorium / Orientation: awake and alert Motor Exam: strength 5/5 throughout Psych thought process normal, cooperative and affect normal Appearance: appropriate Assessment & Plan Assessment/Plan (1) SRINIVAS (acute kidney injury): (2) Diarrhea: (3) Syncope: PLAN: Plan #Syncope in the setting of profuse diarrhea with SRINIVAS and dehydration * This was likely the cause of the syncope. * Cr has trended down to 1.22 from 2.45 on admission * stool for enteric pathogen negative, as well as C diff. * wbc today is 12. Patient complaining of abdominal pain and distension. Not passing gas and has not had any bowel movements. * Started having abdominal pain after having a meal. * Keep NPO and hydrate with IVF * get KUB * IV zofran and IV compazine prn for nausea. * PO tylenol, IV morphine and PO oxycodone prn for pain * I am concerned this is all a result of his tirzepatide use, and he says the dose was recently increased from 5mg to 7.5mg also. * Abdominal x-ray shows mildly distended small bowel loops with gas and fecal material seen throughout the colon which may represent either localized ileus versus possible early small bowel obstruction.. Consult general surgery * #Acute gastroenteritis: Management as above * #Possible early small bowel obstruction * abdominal xray as above. Consult general surgery. * #History of rectal cancer, currently not undergoing any treatment #History of A-fib: On Cardizem. On Coumadin. INR is therapeutic #Hypertension: Hold benazepril and Lasix due to SRINIVAS. IV hydralazine. #Hyperlipidemia: On statin #Depression: On sertraline #Weight loss: Patient currently taking tirzepatide for weight loss, which is also known side effect of diarrhea. BMI is 36.7. Complicates acute care, expected recovery and prognosis. Tirzepatide on hold DVT prophylaxis: Not indicated as patient already on Coumadin. Code status: Full code * Charges/Coding Visit Charges Inpatient E&M: 03391 Subs Hosp L2
[2025-04-25] MEDS: 0.9% Normal Saline (1000mL) 1,000 ML 125 ML IV ×2 (11:10→18:26)
--- NOTE | 2025-04-25 16:52 | EX.PCM.CON.S ---
Assessment & Plan Assessment/Plan (1) Small bowel obstruction: PLAN: Plan The patient is a 60-year-old male who presents initially with complaints of diarrhea which then transitioned to presumably a small bowel obstruction versus ileus. At this point I would recommend n.p.o. If patient has ongoing issues with nausea and vomiting, would consider NG tube placement. Would recommend repeat KUB in a.m. Will continue to follow and advise accordingly but there are no surgical plans at this time HPI Consult Data Date of Consult: 04/25/25 HPI Narrative Reason for Consultation: Small bowel obstruction versus ileus HPI Narrative: MIGUE STROUD, is a 65 M who was admitted to the [facility] on 04/24/2025 through the emergency department where he presented with diarrhea and near syncope. Patient has a history of rectal cancer. He has had multiple episodes of diarrhea over the past few days. He states that he has been on Zepbound for the past couple of weeks in hopes of losing weight. He took his most recent dose on Thursday. He was initially seen in the emergency department by the ER staff who ordered a CT scan. And this really just showed dilation of the stomach. He was subsidy admitted and on KUB this morning it was noted that he had dilated loops of small bowel concerning for ileus versus bowel obstruction. Sounds as though he may have had bowel obstructions in the past. 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 No resection was performed other than the appendectomy. He had another bowel obstruction that sounds as though it resolved without surgical intervention. Patient currently denies any diarrhea nor any flatus today. Due to the clinical change and findings on KUB, surgical consultation was obtained. Patient is on Coumadin. [facility] Medical History (Updated 04/25/25 @ 16:[address] Francis Crowley MD) Small bowel obstruction History of stress test Anxiety CPAP (continuous positive airway pressure) dependence Diverticulitis Low back pain Thyroid disease History of echocardiogram Cancer Rectal cancer High cholesterol DVT (deep venous thrombosis) Gastric reflux Non-smoker History of edema Cardiology follow-up encounter Hypertension Weight gain with edema History of venous thromboembolism Pulmonary embolism (06/10/18) Arthritis Home Medications ?Medication ?Instructions ?Recorded ?Last Taken ?Type cholecalciferol (vitamin D3) 50 2,000 unit PO DAILY supplement 06/16/19 03/23/25 History mcg (2,000 unit) capsule furosemide 40 mg tablet 40 mg PO DAILY diuretic 06/16/19 03/23/25 History benazepril 20 mg tablet 20 mg PO DAILY blood pressure 01/09/21 03/23/25 History sertraline 50 mg tablet 50 mg PO QHS depression 01/09/21 03/23/25 History omeprazole 20 mg capsule,delayed 20 mg PO Q OTHER DAY GERD 10/25/21 03/24/25 History release aspirin 81 mg tablet,delayed 81 mg PO DAILY heart #90 tabs 01/15/24 03/17/25 Rx release (Enteric Coated Aspirin) warfarin 5 mg tablet 7 mg PO MOTUWETHFR blood thinner 02/14/24 03/16/25 History acetaminophen 500 mg tablet 500 mg PO Q6H PRN pain 06/09/24 Unknown History (Tylenol Extra Strength) rosuvastatin 5 mg tablet (Crestor) 5 mg PO Q OTHER DAY cholesterol 01/12/25 03/23/25 Rx #45 tabs tirzepatide (weight loss) 2.5 7.5 mg subcut KOEHLER 02/03/25 03/12/25 History mg/0.5 mL subcutaneous pen injector (Zepbound) warfarin 5 mg tablet 8 mg PO SUSA 03/23/25 03/16/25 History diltiazem HCl 300 mg 300 mg PO QDAY heart #90 caps 04/18/25 Unknown Rx capsule,extended release 24 hr Allergy/AdvReac Type Severity Reaction Status Date / Time simvastatin AdvReac Severe Myalgias Verified 04/24/25 06:37 doxycycline AdvReac Intermediate GI upset Verified 04/24/25 06:37 Family History Mother CAD (coronary artery disease) Diabetes Hypertension Hyperlipidemia Heart disease Father CVA (cerebral vascular accident) Surgical History History of cardiac ablation for atrial fibrillation S/P left rotator cuff repair S/P ablation of atrial fibrillation History of vascular access device History of cardiac catheterization History of colonoscopy (~06/2016) History of left heart catheterization (10/21/18) History of left inguinal hernia repair History of appendectomy History of hip surgery Social History (Updated 04/24/25 @ 10:41 by June Lew) household members: spouse housing: house Smoking Status: Never smoker second hand exposure: Yes alcohol intake: never substance use type: does not use caffeine: Yes Type: carbonated beverages Number of servings: 1 Physical Exam Narrative Patient is alert and oriented x 3. He is in no acute distress. Abdomen is distended. Mild diffuse tenderness palpation Lab / Micro Data 04/25/25 04:45 04/25/25 04:45 Labs: Laboratory Results - last 24 hr 04/24/25 15:31: Urine Color Yellow, Urine Clarity Clear, Urine pH 5.0, Ur Specific [place] 1.020, Urine Protein 30 H, Urine Glucose (UA) Normal, Urine Ketones Negative, Urine Occult Blood 10 H, Urine Nitrite Negative, Urine Bilirubin Negative, Urine Urobilinogen Normal, Ur Leukocyte Esterase Negative, Urine RBC 0-5 SEEN, Urine WBC 0-5 SEEN, Ur Squamous Epith Cells 0-5 SEEN, Urine Bacteria 0 SEEN, Urine Mucus 0 SEEN 04/24/25 16:36: Troponin T Hi Sens 4Hr 17 04/25/25 04:45: WBC 12.0 H, RBC 5.22, Hgb 16.4, Hct 49.3, MCV 94.4 H, MCH 31.4, MCHC 33.3, RDW Std Deviation 49.6 H, RDW Coeff of [place] 14.3, Plt Count 281, MPV 9.3, Immature Gran % (Auto) 0.400, Neut % (Auto) 87.1 H, Lymph % (Auto) 3.4 L, [place] % (Auto) 8.4, Eos % (Auto) 0.4, Baso % (Auto) 0.3, Absolute Neuts (auto) 10.5 H, Absolute Lymphs (auto) 0.41 L, Nucleated RBC % 0, Sodium 135, Potassium 4.8, Chloride 105, Carbon Dioxide 16.7 L, Anion Gap 14, BUN 31 H, Creatinine 1.22 H, Estim Creat Clear Calc 77.21, Est GFR (MDRD) Non-Af 65, BUN/Creatinine Ratio 25.4 H, Glucose 115 H, Calcium 9.7 04/25/25 09:18: PT 33.5 H, INR 3.2 Micro: Microbiology 04/24/25 10:44 Stool Clostridioides difficile (PCR) - Final 04/24/25 10:32 Stool Enteric Bacteriology - Final Imaging Radiology Impression KUB X-Ray 04/25/25 10:25 IMPRESSION: Mildly distended small bowel loops as described. Gas and fecal material seen throughout the colon. This may represent either localized ileus versus possible early bowel obstruction. Radiographic follow-up recommended. Reading Location: [facility]-IR-1 Charges/Coding Visit Charges Inpatient E&M: 85957 Init Hosp L3
[2025-04-26] VITALS (40 sets, daily range): BP systolic 110–162; BP diastolic 50–108; PULSE 74–145; RESP 12–20; TEMP 35.6–37.1; O2SAT 93–98
--- NOTE | 2025-04-26 00:58 | EKG12_ITS ---
Test Reason : RHYTHM CHANGE Blood Pressure : */* mmHG Vent. Rate : 142 BPM Atrial Rate : 142 BPM P-R Int : 154 ms QRS Dur : 82 ms QT Int : 280 ms P-R-T Axes : 76 0 263 degrees QTcB Int : 430 ms Critical Test Result: High HR aflutter/fib with RVR Nonspecific ST and T wave abnormality Abnormal ECG Confirmed by Wili Youngblood ([id number]), editor in chief AMISHA PULIDO ([id number]) on 04/27/2025 6:25:25 AM Referred By: Confirmed By: Wili Youngblood
[2025-04-26] MEDS: 0.9% Normal Saline (500mL Bag) 500 ML 999 ML IV (01:47)
--- NOTE | 2025-04-26 03:13 | EKG12_ITS ---
Test Reason : POSSIBLE A-FIB Blood Pressure : */* mmHG Vent. Rate : 145 BPM Atrial Rate : 145 BPM P-R Int : 142 ms QRS Dur : 84 ms QT Int : 328 ms P-R-T Axes : 73 -3 -66 degrees QTcB Int : 509 ms Critical Test Result: High HR afib flutter with RVR Nonspecific ST and T wave abnormality Abnormal ECG When compared with ECG of 26-Apr-2025 01:13, MANUAL COMPARISON REQUIRED DATA IS UNCONFIRMED Reconfirmed by Wili Youngblood ([id number]), international editorial producer AMISHA PULIDO ([id number]) on 04/27/2025 6:24:56 AM Referred By: Confirmed By: Wili Youngblood
--- NOTE | 2025-04-26 03:15 | RAD_ITS ---
PROCEDURE: ABD DECUB AND/OR ERECT(PORTABLE 04/26/2025 REASON FOR EXAM: SBO TECHNIQUE: ABD DECUB AND/OR ERECT(PORTABLE COMPARISON: 04/25/2025 x-ray, 04/24/2025 CT FINDINGS: Clear lung bases. No free air. Dilated upper abdominal small bowel. Dilated stomach. The lower abdomen and pelvis not imaged. RAD/Abd Decub and/or Erect(Portabl IMPRESSION: Findings suggest a persistent proximal bowel obstruction as better seen on rece nt CT. Reading Location: [place] [address]
[2025-04-26] MEDS: Diltiazem 125 MG in Dextrose 5%-Water (100mL Bag) 100 ML IV (04:01)
[2025-04-26] MEDS: 0.9% Saline Lock 10 ML Syringe IV (04:04)
[2025-04-26 04:48] LABS: Hematocrit 46.7 % (40-54); Hemoglobin 15.9 g/dL (13.0-16.5); Immature Granulocytes Count 0.060 X10^3/uL (0.0-0.0); Mean Corp Hgb Conc 34.0 g/dL (32-36); Mean Corpuscular Volume 91.9 fL (80-94); Mean Platelet Vol. 9.2 fl (6.2-12.0); NRBC Flagged by Analyzer 0 % (0-5); POSITIVE DIFFERENTIAL YES; Platelet Count 272 K/mm3 (150-450); RBC Distribution Width CV 14.0 % (11.6-14.6); RBC Distribution Width SD 47.6 fl (35.1-43.9); Red Blood Count 5.08 M/mm3 (4.6-6.2); White Blood Count 11.2 K/mm3 (4.4-11.0)
[2025-04-26 05:15] LABS: Anion Gap 15 (5-15); BUN 39 mg/dL (4-19); BUN/Creat Ratio 38.9 RATIO (10-20); Calcium,Total 9.3 mg/dL (7.6-11.0); Carbon Dioxide 17.2 mmol/L (21.0-32.0); Chloride 104 mmol/L (98-108); Estimated Creatinine Clearance 93.26 ml/min (50-250); Glucose 138 mg/dL (70-99); Potassium 4.4 mmol/L (3.3-5.1)
--- NOTE | 2025-04-26 07:03 | PCM.PN.SRG ---
Subjective Subjective Patient evaluated resting comfortably in bed. He notes having nausea and vomiting episode yesterday evening. He has not had any nausea since that time. He notes abdominal pressure. He denies any flatus or bowel movement. Objective Data Objective Data Vital Signs: Vital Signs Temp Pulse Resp BP Pulse Ox O2 Del Method 98.1 F 106 H 20 H 142/77 H 95 Room Air 04/26/25 04:01 04/26/25 06:00 04/26/25 06:00 04/26/25 06:00 04/26/25 06:00 04/26/25 06:00 Oxygen Delivery Method Room Air Weight: 263 lb 0.183 oz Body Mass Index (BMI) 36.6 Intake & Output: Intake and Output for Last 24 Hours 04/24/25 04/25/25 04/26/25 23:59 23:59 23:59 Intake Total 1999 2988.33 / 2988.33 1542.42 / 1542.42 Output Total 500 / 950 450 / 450 Balance 1999 2488.33 / 2038.33 1092.42 / 1092.42 Lab / Micro Data 04/26/25 04:18 04/26/25 04:18 Labs: Laboratory Results - last 24 hr 04/25/25 09:18: PT 33.5 H, INR 3.2 04/26/25 04:18: WBC 11.2 H, RBC 5.08, Hgb 15.9, Hct 46.7, MCV 91.9, MCH 31.3, MCHC 34.0, RDW Std Deviation 47.6 H, RDW Coeff of [place] 14.0, Plt Count 272, MPV 9.2, Immature Gran % (Auto) 0.500, Neut % (Auto) 82.6 H, Lymph % (Auto) 4.9 L, [place] % (Auto) 11.5 H, Eos % (Auto) 0.1, Baso % (Auto) 0.4, Absolute Neuts (auto) 9.3 H, Absolute Lymphs (auto) 0.55 L, Nucleated RBC % 0, Sodium 136, Potassium 4.4, Chloride 104, Carbon Dioxide 17.2 L, Anion Gap 15, BUN 39 H, Creatinine 1.01, Estim Creat Clear Calc 93.26, Est GFR (MDRD) Non-Af 82, BUN/Creatinine Ratio 38.9 H, Glucose 138 H, Calcium 9.3 Micro: Microbiology 04/24/25 10:44 Stool Clostridioides difficile (PCR) - Final 04/24/25 10:32 Stool Enteric Bacteriology - Final Radiography Diagnostic Testing: Radiology Impression KUB X-Ray 04/25/25 10:25 IMPRESSION: Mildly distended small bowel loops as described. Gas and fecal material seen throughout the colon. This may represent either localized ileus versus possible early bowel obstruction. Radiographic follow-up recommended. Reading Location: [facility]-IR-1 Abdomen X-Ray 04/26/25 03:15 IMPRESSION: Findings suggest a persistent proximal bowel obstruction as better seen on recent CT. Reading Location: [place] [address] Physical Exam GI GI Narrative: Abdomen- soft, distended. Pressure with palpation. Hypoactive bowel sounds. Assessment & Plan Assessment/Plan (1) Small bowel obstruction: PLAN: I am following this patient in conjunction with Dr. Crowley. He will independently evaluate this patient. Labs reviewed Plan to place an NG tube and likely SBFT later today Continue NPO status at this time No surgical intervention planned currently We will continue to monitor this patient Charges/Coding Visit Charges Inpatient E&M: 30932 [facility] Hosp L2
[2025-04-26] MEDS: Aspirin E.C. 81 MG Tablet PO (07:59)
[2025-04-26] MEDS: Cholecalciferol (VIT D3) 25 MCG TABLET (1,000 UNITS) 50 MCG PO (07:59)
[2025-04-26] MEDS: Oxymetazoline 0.05% 1 SPRAY SPRAY.BTL 2 SPRAY NASAL (09:58)
--- NOTE | 2025-04-26 10:16 | RAD_ITS ---
EXAM: Modified Gastrografin small bowel follow-through. CLINICAL HISTORY: Small-bowel obstruction. COMPARISON: Prior study dated April 26, 2025. TECHNIQUE: 3 images were obtained. FINDINGS: Persistent small bowel dilatation. Contrast is seen throughout the colon down to the rectum. RAD/Small Bowel Series Only IMPRESSION: Persistent small bowel dilatation. Contrast is seen within the colon and rectu m. Reading Location: [facility]--1
[2025-04-26 10:48] LABS: Prothrombin Time (Protime)PT. 37.3 SECONDS (11.7-14.9)
--- NOTE | 2025-04-26 11:17 | PN_ITS ---
Subjective Subjective Patient seen and examined. Went into A-fib with RVR overnight and had to be placed on Cardizem drip. His KUB this morning is still showing persistent small bowel obstruction. He is complaining of abdominal pain still. He did pass a small amount of gas this morning. Review of systems otherwise negative. Objective Data Objective Data Vital Signs: Vital Signs Temp Pulse Resp BP Pulse Ox O2 Del Method 97.9 F 109 H 12 162/78 H 97 Room Air 04/26/25 07:56 04/26/25 10:00 04/26/25 10:00 04/26/25 10:00 04/26/25 10:00 04/26/25 10:00 Oxygen Delivery Method Room Air Weight: 263 lb 0.183 oz Body Mass Index (BMI) 36.6 Intake & Output: Intake and Output for Last 24 Hours 04/24/25 04/25/25 04/26/25 23:59 23:59 23:59 Intake Total 1999 2988.33 / 2988.33 1602.42 / 1602.42 Output Total 500 / 950 450 / 450 Balance 1999 2488.33 / 2038.33 1152.42 / 1152.42 Lab / Micro Data 04/26/25 04:18 04/26/25 04:18 Labs: Laboratory Results - last 24 hr 04/26/25 04:18: WBC 11.2 H, RBC 5.08, Hgb 15.9, Hct 46.7, MCV 91.9, MCH 31.3, MCHC 34.0, RDW Std Deviation 47.6 H, RDW Coeff of [place] 14.0, Plt Count 272, MPV 9.2, Immature Gran % (Auto) 0.500, Neut % (Auto) 82.6 H, Lymph % (Auto) 4.9 L, M rad[place] % (Auto) 11.5 H, Eos % (Auto) 0.1, Baso % (Auto) 0.4, Absolute Neuts (auto) 9.3 H, Absolute Lymphs (auto) 0.55 L, Nucleated RBC % 0, Sodium 136, Potassium 4.4, Chloride 104, Carbon Dioxide 17.2 L, Anion Gap 15, BUN 39 H, Creatinine 1.01, Estim Creat Clear Calc 93.26, Est GFR (MDRD) Non-Af 82, BUN/Creatinine Ratio 38.9 H, Glucose 138 H, Calcium 9.3 04/26/25 10:20: PT 37.3 H, INR 3.7 Micro: Microbiology 04/24/25 10:44 Stool Clostridioides difficile (PCR) - Final 04/24/25 10:32 Stool Enteric Bacteriology - Final Radiography Diagnostic Testing: Radiology Impression Abdomen X-Ray 04/26/25 03:15 IMPRESSION: Findings suggest a persistent proximal bowel obstruction as better seen on recent CT. Reading Location: [place] [address] Physical Exam Const alert, oriented x3 and no apparent distress General Appearance: cooperative HEENT normocephalic, head/scalp atraumatic and hearing grossly normal bilaterally Eyes PERRL, EOMs intact bilaterally and conjunctivae normal Neck no lymphadenopathy Resp normal respiratory effort Cardio S1 normal heart sound, S2 normal heart sound and no murmurs Cardio Narrative: afib with RVR GI GI Narrative: abdomen distended, tender to palpation, tympanitic to percussion. Extremity normal to inspection, full ROM and no clubbing, cyanosis or edema General Extremity: no tenderness to palpation of joints or extremities Skin General Skin Exam: no breakdown Neuro oriented x3, CN's II-XII intact bilaterally, moves all extremities and no focal motor deficits Sensorium / Orientation: awake and alert Motor Exam: strength 5/5 throughout Psych thought process normal, cooperative and affect normal Appearance: appropriate Assessment & Plan Assessment/Plan (1) SRINIVAS (acute kidney injury): (2) Diarrhea: (3) Syncope: PLAN: Plan #small bowel obstruction * Diarrhea has resolved. However abdomen has remained distended. KUB yesterday and this morning both showed small bowel obstruction. * Stool for enteric pathogen as well as C. difficile screen negative. General surgery on board. For insertion of NG tube today to help decompress the abdomen. * Continue keeping NPO. Hydrate with IV fluids. IV Zofran and IV Compazine for nausea * IV zofran and IV compazine prn for nausea. * PO tylenol, IV morphine and PO oxycodone prn for pain * I am concerned this is all a result of his tirzepatide use, and he says the dose was recently increased from 5mg to 7.5mg also. * * #Afib with RVR * Went into A-fib with RVR overnight and now on Cardizem drip. Already on Coumadin. INR is therapeutic at 3.7 today. Consult cardiology. * #Acute gastroenteritis: resolved. Management as above * #History of rectal cancer, currently not undergoing any treatment #Hypertension: Hold benazepril and Lasix due to SRINIVAS. IV hydralazine. #Hyperlipidemia: On statin #Depression: On sertraline #Weight loss: Patient currently taking tirzepatide for weight loss, which is also known side effect of diarrhea. BMI is 36.7. Complicates acute care, expected recovery and prognosis. Tirzepatide on hold DVT prophylaxis: Not indicated as patient already on Coumadin. Code status: Full code * Charges/Coding Visit Charges Inpatient E&M: 44608 Subs Hosp L2
[2025-04-26] MEDS: Diltiazem 125 MG in Dextrose 5%-Water (100mL Bag) 100 ML 15 MG IV (12:19)
--- NOTE | 2025-04-26 12:33 | CON.PCM.CA_ITS ---
Assessment & Plan Assessment/Plan (1) Paroxysmal atrial fibrillation: PLAN: Patient has a history of paroxysmal atrial fibrillation. This has been increasing in frequency in the late 2023 and the patient underwent pulmonary vein isolation at [facility] by Dr. Quijano September 2024. This is the first time the patient has been documented to be out of sinus rhythm since that point in time. The patient been off his oral diltiazem due to his small bowel obstruction. He did not respond to IV diltiazem infusion. Heart rate remained elevated. Given the patient's n.p.o. status I did recommend that we place him on IV amiodarone loading bolus and chronic chronic infusion. If the patient does not chemically cardiovert back to sinus rhythm would proceed with elective direct- current cardioversion when appropriate pending consultation with the surgical team. The patient is hemodynamically stable other than his heart rate. If we can control his heart rate with a combination of amiodarone IV and IV metoprolol the patient should be able to proceed with surgical intervention in atrial fibrillation if indicated. The patient does need to be continued on anticoagulation therapy. The patient appears to be on warfarin at this point in time his INR was stable at 2.7 on admission. 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 PLAN: Plan 1. Will DC IV Cardizem as this is not controlling his rate. 2. Will utilize IV amiodarone therapy to control his rate and hopefully convert him chemically back to sinus rhythm. 3. Need to continue oral anticoagulation or if that must be interrupted intermittent IV anticoagulation as we are attempting to get him back into sinus rhythm. 4. The patient should be fine as long as we can get him back into sinus rhythm within the next 36 hours. 5. If surgical intervention is indicated as long as we can control his rate with IV metoprolol and IV amiodarone would supplemented IV Cardizem if needed we should be able to get him through with surgical intervention. HPI Consult Data Date of Consult: 04/26/25 HPI Narrative Reason for Consultation: Atrial tachycardia with rapid ventricular response. HPI Narrative: MIGUE STROUD, is a 65 M who presents with a small bowel obstruction. Patient been having diarrhea for most of the weekend prior to admission yesterday. Early this morning he developed a tachycardia in the 145 beats per minute range by ECG appears to be atrial flutter with 2-1 conduction. The patient carries a history of pulsed field radiofrequency ablation September 2024 at [facility] by Dr. Quijano. He has had pulmonary vein isolation done due to atrial fibrillation. He was having paroxysms of atrial fibrillation that was occurring more and more frequently. Last echocardiogram was 2022 which showed normal LV function and normal atrial size with no valvular heart disease. He had a catheterization done remotely that showed normal coronary arteries. The patient does not notice that he is out of sinus rhythm today. However he has been sick with a small bowel obstruction and diarrhea. The patient denies any syncope or near syncope. He does have some lower extremity edema which is chronic and has not really changed. He does have brawny skin changes on his lower extremities. The patient was placed on IV Cardizem as his oral agents had been held. This has not impacted their heart rate. Patient is unable to take p.o.'s at this point in time due to a small bowel obstruction. [facility] Medical History Small bowel obstruction History of stress test Anxiety CPAP (continuous positive airway pressure) dependence Diverticulitis Low back pain Thyroid disease History of echocardiogram Cancer Rectal cancer High cholesterol DVT (deep venous thrombosis) Gastric reflux Non-smoker History of edema Cardiology follow-up encounter Hypertension Weight gain with edema History of venous thromboembolism Pulmonary embolism (06/10/18) Arthritis Home Medications ?Medication ?Instructions ?Recorded ?Last Taken ?Type cholecalciferol (vitamin D3) 50 2,000 unit PO DAILY koehler pplement 06/16/19 03/23/25 History mcg (2,000 unit) capsule furosemide 40 mg tablet 40 mg PO DAILY diuretic 11/3003/23/25 History benazepril 20 mg tablet 20 mg PO DAILY blood pressur e 01/09/21 03/23/25 History sertraline 50 mg tablet 50 mg PO QHS depression 12/1403/23/25 History omeprazole 20 mg capsule,delayed 20 mg PO Q OTHER DAY GERD 10/25/21 03/24/25 History release aspirin 81 mg tablet,delayed 81 mg PO DAILY heart #90 tabs 01/15/24 03/17/25 Rx release (Enteric Coated Aspirin) warfarin 5 mg tablet 7 mg PO MOTUWETHFR blood thi nner 02/14/24 03/16/25 History acetaminophen 500 mg tablet 500 mg PO Q6H PRN pain Unknown History (Tylenol Extra Strength) rosuvastatin 5 mg tablet (Crestor) 5 mg PO Q OTHER DAY cholesterol 01/12/25 03/23/25 Rx #45 tabs tirzepatide (weight loss) 2.5 7.5 mg subcut KOEHLER 5 03/12/25 History mg/0.5 mL subcutaneous pen injector (Zepbound) warfarin 5 mg tablet 8 mg PO SUSA 03/23/25 History diltiazem HCl 300 mg 300 mg PO QDAY heart #90 cap s 04/18/25 Unknown Rx capsule,extended release 24 hr Allergy/AdvReac Type Severity Reaction Status Date / Time simvastatin AdvReac Severe Myalgias Verified 04/24/25 06:37 doxycycline AdvReac Intermediate GI upset Verified 04/24/25 06:37 Family History Mother CAD (coronary artery disease) Diabetes Hypertension Hyperlipidemia Heart disease Father CVA (cerebral vascular accident) Surgical History History of cardiac ablation for atrial fibrillation S/P left rotator cuff repair S/P ablation of atrial fibrillation History of vascular access device History of cardiac catheterization History of colonoscopy (~06/2016) History of left heart catheterization (10/21/18) History of left inguinal hernia repair History of appendectomy History of hip surgery Social History household members: spouse housing: house Smoking Status: Never smoker second hand exposure: Yes alcohol intake: never substance use type: does not use caffeine: Yes Type: carbonated beverages Number of servings: 1 ROS Constitutional Constitutional: Reports as per HPI Eyes Eyes: Reports systems reviewed and no addt'l complaints, except as documented ENT HEENT: Reports systems reviewed and no addt'l complaints, except as documented Cardiovascular Cardiovascular: Reports as per HPI Respiratory/Chest Respiratory/Chest: Reports as per HPI Gastrointestinal Gastrointestinal: Reports as per HPI Genitourinary Genitourinary: Reports systems reviewed and no addt'l complaints, except as documented Musculoskeletal Musculoskeletal: Reports as per HPI Integumentary Integumentary: Reports as per HPI Neurologic Neurologic: Reports systems reviewed and no addt'l complaints, except as documented Psychiatric Psychiatric: Reports systems reviewed and no addt'l complaints, except as documented Endocrine Endocrinology: Reports systems reviewed and no addt'l complaints, except as documented Hematologic/Lymphatic Hematologic/Lymphatic: Reports as per HPI Allergic/Immunologic Allergic/Immunologic: Reports systems reviewed and no addt'l complaints, except as documented Physical Exam Const alert and oriented x3 HEENT normocephalic Eyes EOMs intact bilaterally Neck supple, no JVD and no carotid bruits Chest inspection of chest normal Resp normal respiratory effort and clear to auscultation bilaterally Cardio Rate: tachycardic Rhythm: regular rhythm Heart Sounds: S1 normal and S2 normal; Negative for click, gallop or murmur GI GI Narrative: Tense to palpation with no active bowel sounds. Extremity General Extremity: edema bilateral lower extremity Details: mild Skin Skin Narrative: Brawny chronic edematous changes noted on the lower extremities Neuro Neuro Narrative: Alert and oriented x 3 Psych mental status grossly normal Risk Stratification Risk Stratification Applicable: No Charges/Coding Visit Charges Inpatient E&M: 71729 Init Hosp L3 Objective Data Vital Signs: Vital Signs Temp Pulse Resp BP Pulse Ox O2 Del Method 97.9 F 93 18 124/64 H 97 Room Air 04/26/25 07:56 04/26/25 12:19 04/26/25 11:11 04/26/25 12:15 04/26/25 12:15 04/26/25 12:15 Oxygen Delivery Method Room Air Weight: 263 lb 0.183 oz Body Mass Index (BMI) 36.6 Intake & Output: Intake and Output for Last 24 Hours 04/24/25 04/25/25 04/26/25 23:59 23:59 23:59 Intake Total 1999 2988.33 / 2988.33 1637.17 / 1637.17 Output Total 500 / 950 450 / 450 Balance 1999 2488.33 / 2038.33 1187.17 / 1187.17 Lab / Micro Data Attestation: I reviewed the patient's lab results. 04/26/25 04:18 04/26/25 04:18 Labs: Laboratory Results - last 24 hr 04/26/25 04:18: WBC 11.2 H, RBC 5.08, Hgb 15.9, Hct 46.7, MCV 91.9, MCH 31.3, MCHC 34.0, RDW Std Deviation 47.6 H, RDW Coeff of [place] 14.0, Plt Count 272, MPV 9.2, Immature Gran % (Auto) 0.500, Neut % (Auto) 82.6 H, Lymph % (Auto) 4.9 L, M radames % (Auto) 11.5 H, Eos % (Auto) 0.1, Baso % (Auto) 0.4, Absolute Neuts (auto) 9.3 H, Absolute Lymphs (auto) 0.55 L, Nucleated RBC % 0, Sodium 136, Potassium 4.4, Chloride 104, Carbon Dioxide 17.2 L, Anion Gap 15, BUN 39 H, Creatinine 1.01, Estim Creat Clear Calc 93.26, Est GFR (MDRD) Non-Af 82, BUN/Creatinine Ratio 38.9 H, Glucose 138 H, Calcium 9.3 04/26/25 10:20: PT 37.3 H, INR 3.7 Rhythm Strip Rhythm Strip: A-fib (Course atrial fibs versus fib flutter) Rate: 120 Cardiology Labs/Tests 04/26/25 04:18: WBC 11.2 H, RBC 5.08, Hgb 15.9, Hct 46.7, MCV 91.9, MCH 31.3, MCHC 34.0, Plt Count 272, MPV 9.2, Immature Gran % (Auto) 0.500, Neut % (Auto) 82.6 H, Lymph % (Auto) 4.9 L, [place] % (Auto) 11.5 H, Eos % (Auto) 0.1, Baso % (Auto) 0.4, Absolute Neuts (auto) 9.3 H, Nucleated RBC % 0, Sodium 136, Potassium 4.4, Chloride 104, Carbon Dioxide 17.2 L, Anion Gap 15, BUN 39 H, Creatinine 1.01, Est GFR (MDRD) Non-Af 82, BUN/Creatinine Ratio 38.9 H, Glucose 138 H, Calcium 9.3 04/26/25 10:20: PT 37.3 H, INR 3.7 Rhythm: EKG: ECHO: Stress Test: Cardiac Cath: PCI: CT Surgery: Holter monitor: EPS: PPM: CXR: Chest CT Scan: Radiography Diagnostic Testing: Radiology Impression Abdomen X-Ray 04/26/25 03:15 IMPRESSION: Findings suggest a persistent proximal bowel obstruction as better seen on recent CT. Reading Location: [place] [id number]
--- NOTE | 2025-04-26 12:43 | ECHOD_ITS ---
Reason For Study Reason For Study: ATRIAL FIB/FLUTTER Procedure This was a 2D Doppler, Color Flow transthoracic echocardiogram. Exam performed portable in patient room. Left Ventricle Normal LV size. Normal left ventricular thickness. Left ventricular systolic function is normal. Diastolic function is indeterminate. The estimated ejection fraction is 65 %. Right Ventricle Normal right ventricle. Normal RV size. Normal systolic function. Atria The left and right atria are normal. Mitral Valve The mitral valve is structurally normal. No prolapse or stenosis seen. Trivial mitral valve insufficiency. Tricuspid Valve Unable to estimate RV systolic pressure due to insufficient tricuspid regurgitant envelope. Aortic Valve The aortic valve is not well visualized. Great Vessels Normal sized aortic root. Pericardium/Pleural No pericardial effusion. MMode/2D Measurements & Calculations LVIDd: 4.1 cm IVSd: 1.1 cm LVOT diam: 2.1 cm LVIDs: 2.5 cm LVPWd: 1.1 cm LVOT area: 3.6 cm2 RVDd: 4.0 cm FS: 40.0 % asc Aorta Diam: 3.1 cm LAV(MOD-bp): 45.0 ml LVAd ap4: 18.2 cm2 LAV(MOD-bp) Indexed: 19.0 ml/m2 LVLd ap4: 6.9 cm LAV(MOD-sp2): 43.7 ml EDV(MOD-sp4): 40.5 ml LAV(MOD-sp4): 45.9 ml EDV(sp4-el): 40.8 ml LVAs ap4: 9.3 cm2 LVLs ap4: 5.7 cm ESV(MOD-sp4): 14.0 ml ESV(sp4-el): 12.7 ml EF(MOD-sp4): 65.5 % EF(sp4-el): 68.8 % SV(MOD-sp4): 26.5 ml SV(MOD-sp2): 38.2 ml LVAd ap2: 22.9 cm2 LVLd ap2: 7.7 cm SI(MOD-sp4): 11.2 ml/m2 SI(MOD-sp2): 16.1 ml/m2 EDV(MOD-sp2): 56.4 ml EDV(sp2-el): 58.0 ml LVAs ap2: 11.7 cm2 LVLs ap2: 6.7 cm ESV(MOD-sp2): 18.1 ml ESV(sp2-el): 17.3 ml EF(MOD-sp2): 67.8 % SV(sp4-el): 28.1 ml Ao sinus diam: 3.[address] Junction: 2.4 cm LA A4 area: 16.3 cm2 LA dimension(2D): 3.7 cm RA A4 area: 13.5 cm2 TAPSE: 2.0 cm Time Measurements MV dec time: 0.18 sec Doppler Measurements & Calculations MV E max bala: 107.6 cm/sec Lat Peak E' Bala: 17.7 cm/sec Med Peak E' Bala: 11.6 cm/sec E/E' lat: 6.1 E/E' med: 9.3 Ao V2 max: 139.4 cm/sec LV V1 max: 113.1 cm/sec SV(LVOT): 65.9 ml Ao max P.8 mmHg LV V1 max P.1 mmHg Ao V2 mean: 102.1 cm/sec LV V1 mean P.1 mmHg Ao mean P.5 mmHg LV V1 mean: 83.0 cm/sec Ao V2 VTI: 19.8 cm LV V1 VTI: 18.4 cm AV (velocity ratio): 0.93 MONICA(I,D): 3.3 cm2 MONICA(V,D): 2.9 cm2 PA V2 max: 139.4 cm/sec ECHO/Echo Complete Interpretation Summary Normal LV size. Normal systolic function. Diastolic function is indeterminate due to A fib. Left ventricular systolic function is normal. The estimated ejection fraction is 65 %. No significant valve pathology Ordering Physician: Wili Youngblood Referring Physician: Hao Membreno Performed By: Debi Ulloa RDCS
[2025-04-26] MEDS: 0.9% Normal Saline (1000mL) 1,000 ML 125 ML IV ×2 (14:19→22:29)
[2025-04-26] MEDS: Amiodarone 150 MG in Dextrose 5%-Water (100mL Bag) 100 ML 600 MG IV BOLUS (14:33)
[2025-04-26] MEDS: Amiodarone 360 MG in Dextrose 5% Viaflo Bag 192.8 ML 33.3 MG CONT INF (14:46)
[2025-04-26] MEDS: Amiodarone 360 MG in Dextrose 5% Viaflo Bag 192.8 ML 16.7 MG CONT INF (20:53)
[2025-04-27] VITALS (18 sets, daily range): BP systolic 119–155; BP diastolic 73–100; PULSE 66–120; RESP 14–21; TEMP 35.7–36.6; O2SAT 95–97
[2025-04-27 06:15] LABS: Hematocrit 46.6 % (40-54); Hemoglobin 15.8 g/dL (13.0-16.5); Immature Granulocytes Count 0.040 X10^3/uL (0.0-0.0); Mean Corp Hgb Conc 33.9 g/dL (32-36); Mean Corpuscular Volume 92.5 fL (80-94); Mean Platelet Vol. 9.1 fl (6.2-12.0); NRBC Flagged by Analyzer 0 % (0-5); Platelet Count 279 K/mm3 (150-450); RBC Distribution Width CV 14.2 % (11.6-14.6); RBC Distribution Width SD 48.2 fl (35.1-43.9); Red Blood Count 5.04 M/mm3 (4.6-6.2); White Blood Count 9.4 K/mm3 (4.4-11.0)
[2025-04-27] MEDS: 0.9% Normal Saline (1000mL) 1,000 ML 125 ML IV (06:29)
--- NOTE | 2025-04-27 06:30 | RAD_ITS ---
EXAM: XR Abdomen, 2 Views CLINICAL INDICATION: SMALL BOWEL OBSTRUCTION TECHNIQUE: Frontal view of the abdomen/pelvis with upright view of the abdomen. COMPARISON: No relevant prior studies available. FINDINGS: INTRAPERITONEAL SPACE: No free air. GASTROINTESTINAL TRACT: Multiple distended small bowels with differential air- fluid levels measuring up to 4.6 cm. Contrast is noted in the colon. Findings suggest at least partial small bowel obstruction. BONES/JOINTS: Unremarkable. No acute fracture. RAD/Abd Inc Decub and/or Erect IMPRESSION: Multiple distended small bowels with differential air-fluid levels measuring up to 4.6 cm. Contrast is noted in the colon. Findings suggest at least partial small bowel obstruction. Reading Location: [id number]
[2025-04-27 07:05] LABS: Anion Gap 13 (5-15); BUN 37 mg/dL (4-19); BUN/Creat Ratio 40.4 RATIO (10-20); Calcium,Total 9.0 mg/dL (7.6-11.0); Carbon Dioxide 17.4 mmol/L (21.0-32.0); Chloride 108 mmol/L (98-108); Estimated Creatinine Clearance 103.51 ml/min (50-250); Glucose 117 mg/dL (70-99); Potassium 4.1 mmol/L (3.3-5.1)
--- NOTE | 2025-04-27 07:39 | PN.CARD_ITS ---
Subjective Subjective Patient undergoing serial x-rays to evaluate his small bowel obstruction. Patient remains in atrial fibrillation when at rest his rate is well-controlled on IV amiodarone. Went up at all to go to the restroom or move around the room his heart rate goes up in the 120s beat per minute range. He remains n.p.o. due to the small bowel obstruction. Objective Data Vital Signs: Vital Signs Temp Pulse Resp BP Pulse Ox O2 Del Method 98 F 106 H 21 H 149/86 H 95 Room Air 04/27/25 03:00 04/27/25 04:00 04/27/25 04:00 04/27/25 04:00 04/27/25 04:00 04/27/25 04:00 Oxygen Delivery Method Room Air Weight: 263 lb 0.183 oz Body Mass Index (BMI) 36.6 Intake & Output: Intake and Output for Last 24 Hours 04/25/25 04/26/25 04/27/25 23:59 23:59 23:59 Intake Total 2988.33 / 2988.33 3107.02 / 3123.72 1083.5 / 1083.5 Output Total 500 / 950 850 / 1400 550 / 550 Balance 2488.33 / 2038.33 2257.02 / 1723.72 533.5 / 533.5 Lab / Micro Data 04/27/25 05:57 04/27/25 05:57 Labs: Laboratory Results - last 24 hr 04/26/25 10:20: PT 37.3 H, INR 3.7 04/27/25 05:57: WBC 9.4, RBC 5.04, Hgb 15.8, Hct 46.6, MCV 92.5, MCH 31.3, MCHC 33.9, RDW Std Deviation 48.2 H, RDW Coeff of [place] 14.2, Plt Count 279, MPV 9.1, Immature Gran % (Auto) 0.400, Neut % (Auto) 75.9 H, Lymph % (Auto) 8.4 L, [place] % (Auto) 14.6 H, Eos % (Auto) 0.5, Baso % (Auto) 0.2, Absolute Neuts (auto) 7.1, A bsolute Lymphs (auto) 0.79 L, Nucleated RBC % 0, Sodium 139, Potassium 4.1, Chloride 108, Carbon Dioxide 17.4 L, Anion Gap 13, BUN 37 H, Creatinine 0.91, Estim Creat Clear Calc 103.51, Est GFR (MDRD) Non-Af 92, BUN/Creatinine Ratio 40.4 H, Glucose 117 H, Calcium 9.0 Rhythm Strip Rhythm Strip: A-fib (Course atrial fibs versus fib flutter) Rate: 120 Cardiology Labs/Tests 04/26/25 10:20: PT 37.3 H, INR 3.7 04/27/25 05:57: WBC 9.4, RBC 5.04, Hgb 15.8, Hct 46.6, MCV 92.5, MCH 31.3, MCHC 33.9, Plt Count 279, MPV 9.1, Immature Gran % (Auto) 0.400, Neut % (Auto) 75.9 H , Lymph % (Auto) 8.4 L, [place] % (Auto) 14.6 H, Eos % (Auto) 0.5, Baso % (Auto) 0.2, Absolute Neuts (auto) 7.1, Nucleated RBC % 0, Sodium 139, Potassium 4.1, Chloride 108, Carbon Dioxide 17.4 L, Anion Gap 13, BUN 37 H, Creatinine 0.91, Est GFR (MDRD) Non-Af 92, BUN/Creatinine Ratio 40.4 H, Glucose 117 H, Calcium 9.0 Rhythm: EKG: ECHO: Stress Test: Cardiac Cath: PCI: CT Surgery: Holter monitor: EPS: PPM: CXR: Chest CT Scan: Radiography Diagnostic Testing: Radiology Impression Echocardiogram 04/26/25 12:43 Interpretation Summary Normal LV size. Normal systolic function. Diastolic function is indeterminate due to A fib. Left ventricular systolic function is normal. The estimated ejection fraction is 65 %. No significant valve pathology Ordering Physician: Wili Youngblood Referring Physician: Hao Membreno Performed By: Debi Ulloa RDCS Abdomen X-Ray 04/27/25 06:30 IMPRESSION: Multiple distended small bowels with differential air-fluid levels measuring up to 4.6 cm. Contrast is noted in the colon. Findings suggest at least partial small bowel obstruction. Reading Location: [facility] Physical Exam Const alert and oriented x3 HEENT normocephalic Eyes EOMs intact bilaterally Neck supple and no JVD Chest inspection of chest normal Resp normal respiratory effort Cardio Rate: tachycardic Rhythm: abnormal rhythm irregularly irregular GI GI Narrative: Tense abdomen. Psych mental status grossly normal Assessment & Plan Assessment/Plan (1) Paroxysmal atrial fibrillation: PLAN: Patient remains in atrial fibrillation on IV amiodarone. Heart rate is controlled when he is at rest but up in the 120 range when he gets up to the bathroom or act or is active. Would recommend adding IV Lopressor 5 mg IV as needed heart rate above 100. Will continue IV amiodarone load and IV infusion. Once able to take p.o.'s would switch the patient to 400 mg twice daily of amiodarone. If the patient is required to interrupt his oral anticoagulation for surgical intervention would then need bridging with heparin if if the patient has to remain off oral anticoagulation for more than 72 hours. Would plan to discharge the patient home in around 1 4 mg twice daily for 10 days and follow-up in the [place] office in 7 to 10 days. He will then be dropped down to 200 mg daily and we would wait 4 to 6 weeks if he does not convert to sinus rhythm would perform direct-current cardioversion in the ambulatory setting. (2) Small bowel obstruction: PLAN: Surgical team is evaluating and treating the small bowel obstruction. The last x-ray shows a partial small bowel obstruction with contrast getting into the colon. The patient continues to complain of diarrhea. PLAN: Plan 1. Will add IV Lopressor as needed to maintain his heart rate less than 100. 2. Will continue amiodarone load once able to take p.o.'s with switch to 400 mg twice daily for 10 days. He will then drop down to 200 mg daily. 3. Please call Dr. Youngblood if there is any questions. Charges/Coding Visit Charges Inpatient E&M: 64643 Subs Hosp L2
[2025-04-27] MEDS: Amiodarone 360 MG in Dextrose 5% Viaflo Bag 192.8 ML 16.7 MG CONT INF (08:32)
--- NOTE | 2025-04-27 08:32 | PCM.PN.SRG ---
Subjective Subjective Patient evaluated resting comfortably in bed. He notes abdominal pressure. He denies any nausea, vomiting. He notes loose stools. Very minimal amount of flatus. Objective Data Objective Data Vital Signs: Vital Signs Temp Pulse Resp BP Pulse Ox O2 Del Method 98 F 66 18 134/73 H 97 Room Air 04/27/25 03:00 04/27/25 08:00 04/27/25 08:00 04/27/25 08:00 04/27/25 08:00 04/27/25 08:00 Oxygen Delivery Method Room Air Weight: 263 lb 0.183 oz Body Mass Index (BMI) 36.6 Intake & Output: Intake and Output for Last 24 Hours 04/25/25 04/26/25 04/27/25 23:59 23:59 23:59 Intake Total 2988.33 / 2988.33 3107.02 / 3123.72 1150.3 / 1150.3 Output Total 500 / 950 850 / 1400 850 / 850 Balance 2488.33 / 2038.33 2257.02 / 1723.72 300.3 / 300.3 Lab / Micro Data 04/27/25 05:57 04/27/25 05:57 Labs: Laboratory Results - last 24 hr 04/26/25 10:20: PT 37.3 H, INR 3.7 04/27/25 05:57: WBC 9.4, RBC 5.04, Hgb 15.8, Hct 46.6, MCV 92.5, MCH 31.3, MCHC 33.9, RDW Std Deviation 48.2 H, RDW Coeff of [place] 14.2, Plt Count 279, MPV 9.1, Immature Gran % (Auto) 0.400, Neut % (Auto) 75.9 H, Lymph % (Auto) 8.4 L, [place] % (Auto) 14.6 H, Eos % (Auto) 0.5, Baso % (Auto) 0.2, Absolute Neuts (auto) 7.1, Absolute Lymphs (auto) 0.79 L, Nucleated RBC % 0, Sodium 139, Potassium 4.1, Chloride 108, Carbon Dioxide 17.4 L, Anion Gap 13, BUN 37 H, Creatinine 0.91, Estim Creat Clear Calc 103.51, Est GFR (MDRD) Non-Af 92, BUN/Creatinine Ratio 40.4 H, Glucose 117 H, Calcium 9.0 Micro: Microbiology 04/24/25 10:44 Stool Clostridioides difficile (PCR) - Final 04/24/25 10:32 Stool Enteric Bacteriology - Final Radiography Diagnostic Testing: Radiology Impression Echocardiogram 04/26/25 12:43 Interpretation Summary Normal LV size. Normal systolic function. Diastolic function is indeterminate due to A fib. Left ventricular systolic function is normal. The estimated ejection fraction is 65 %. No significant valve pathology Ordering Physician: Wili Youngblood Referring Physician: Hao Membreno Performed By: Debi Ulloa RDCS Abdomen X-Ray 04/27/25 06:30 IMPRESSION: Multiple distended small bowels with differential air-fluid levels measuring up to 4.6 cm. Contrast is noted in the colon. Findings suggest at least partial small bowel obstruction. Reading Location: [facility] Rhythm Strip Rhythm Strip: A-fib (Course atrial fibs versus fib flutter) Rate: 120 Physical Exam GI GI Narrative: Abdomen- soft, distended. Hypoactive bowel sounds. Pressure sensation with palpation. Assessment & Plan Assessment/Plan (1) Small bowel obstruction: PLAN: I am following this patient in conjunction with Dr. Kwon in Dr. Crowley's absence. He has independently evaluated this patient. Labs reviewed. Patient continuing to have small bowel follow-through. It appears the contrast is in the large bowel, however he continues to have contrast in the colon. Patient's current KUB shows a picture of a dense ileus most likely from increase in dosage of weight loss medication Will plan to order a suppository and Reglan to assist with return of bowel function Continue NPO No surgical intervention is planned at this time Patient had 3 failed attempts yesterday with NG tube placement We will continue to monitor this patient Charges/Coding Visit Charges Inpatient E&M: 56980 Subs Hosp L2
[2025-04-27] MEDS: Cholecalciferol (VIT D3) 25 MCG TABLET (1,000 UNITS) 50 MCG PO (10:55)
[2025-04-27] MEDS: Aspirin E.C. 81 MG Tablet PO (10:55)
--- NOTE | 2025-04-27 11:53 | PN.HOSP_ITS ---
Reason for Visit Chief Complaint: syncope Subjective Subjective Saw patient at bedside this morning, present. Patient was sitting back fairly comfortably in bed, conversing normally, in no acute distress. He reported some abdominal discomfort as well as loose stools. He has been passing minimal flatus. Denies any nausea or vomiting. No other acute concerns this morning. Objective Data Objective Data Vital Signs: Vital Signs Temp Pulse Resp BP Pulse Ox O2 Del Method 96.3 F L 115 H 18 147/81 H 97 Room Air 04/27/25 09:00 04/27/25 10:57 04/27/25 10:00 04/27/25 10:00 04/27/25 10:00 04/27/25 10:00 Oxygen Delivery Method Room Air Weight: 119.3 kg Body Mass Index (BMI) 36.6 Intake & Output: Intake and Output for Last 24 Hours 04/25/25 04/26/25 04/27/25 23:59 23:59 23:59 Intake Total 2988.33 / 2988.33 3107.02 / 3123.72 1183.70 / 1183.70 Output Total 500 / 950 850 / 1400 850 / 850 Balance 2488.33 / 2038.33 2257.02 / 1723.72 333.70 / 333.70 Lab / Micro Data 04/27/25 05:57 04/27/25 05:57 Labs: Laboratory Results - last 24 hr 04/27/25 05:57: WBC 9.4, RBC 5.04, Hgb 15.8, Hct 46.6, MCV 92.5, MCH 31.3, MCHC 33.9, RDW Std Deviation 48.2 H, RDW Coeff of [place] 14.2, Plt Count 279, MPV 9.1, Immature Gran % (Auto) 0.400, Neut % (Auto) 75.9 H, Lymph % (Auto) 8.4 L, [place] % (Auto) 14.6 H, Eos % (Auto) 0.5, Baso % (Auto) 0.2, Absolute Neuts (auto) 7.1, A bsolute Lymphs (auto) 0.79 L, Nucleated RBC % 0, Sodium 139, Potassium 4.1, Chloride 108, Carbon Dioxide 17.4 L, Anion Gap 13, BUN 37 H, Creatinine 0.91, Estim Creat Clear Calc 103.51, Est GFR (MDRD) Non-Af 92, BUN/Creatinine Ratio 40.4 H, Glucose 117 H, Calcium 9.0 Micro: Microbiology 04/24/25 10:44 Stool Clostridioides difficile (PCR) - Final 04/24/25 10:32 Stool Enteric Bacteriology - Final Radiography Diagnostic Testing: Radiology Impression Echocardiogram 04/26/25 12:43 Interpretation Summary Normal LV size. Normal systolic function. Diastolic function is indeterminate due to A fib. Left ventricular systolic function is normal. The estimated ejection fraction is 65 %. No significant valve pathology Ordering Physician: Wili Youngblood Referring Physician: Hao Membreno Performed By: Debi Ulloa RDCS Abdomen X-Ray 04/27/25 06:30 IMPRESSION: Multiple distended small bowels with differential air-fluid levels measuring up to 4.6 cm. Contrast is noted in the colon. Findings suggest at least partial small bowel obstruction. Reading Location: [facility] Rhythm Strip Rhythm Strip: A-fib (Course atrial fibs versus fib flutter) Rate: 120 Physical Exam Const alert, oriented x3 and no apparent distress Constitutional Narrative: Elderly male, class II obesity, mildly fatigued appearing but otherwise sitting back comfortably in bed, conversing normally, in no acute distress. General Appearance: cooperative and comfortable HEENT normocephalic, head/scalp atraumatic, hearing grossly normal bilaterally, nasal mucous membranes and turbinates normal and moist oral mucous membranes Eyes PERRL, EOMs intact bilaterally and conjunctivae normal Neck full ROM Chest inspection of chest normal Resp normal respiratory effort, normal air movement, no use of accessory muscles and clear to auscultation bilaterally Cardio no murmurs and peripheral pulses 2+ throughout Cardio Narrative: A-fib with RVR. GI GI Narrative: Abdomen distended but soft and nontender to palpation. Hypoactive bowel sounds noted. Back/Spine normal ROM Extremity normal to inspection, full ROM and no pedal edema Skin no rashes or lesions noted Psych mental status grossly normal Assessment & Plan Assessment/Plan (1) Small bowel obstruction: (2) Diarrhea: PLAN: Plan Patient is a 65-year-old male who presented to [facility] ED on 04/24/2025 after a syncopal episode. 1. Small bowel obstruction versus ileus ? Surgery following. Presented with abdominal distention and acute diarrhea. Suspected that diarrhea was primarily due to tirzepatide patient has been taking for weight loss as below. CT abdomen pelvis on admit showed concern for small bowel obstruction versus ileus. Unfortunately patient had 3 unsuccessful attempts at NG tube placement. Small bowel follow-through study was done and shows contrast in the large bowel; KUB shows a picture most consistent with dense ileus. Per surgery, not planning for surgical intervention at this time. Suppository ordered and Reglan started to assist with return of bowel function. Continuing n.p.o. status with close monitoring. 2. A-fib with RVR on Coumadin ? Cardiology following. Known history of A-fib with RVR. Underwent pulmonary vein isolation procedure at [facility] in September 2024. This is the first documented time patient has been out of sinus rhythm since then. Presume secondary to small bowel obstruction versus ileus as above. Initiated on IV amiodarone with improvement in rate control at rest, though rate does worsen to the 120s with exertion. Continue home diltiazem. IV Lopressor added as needed to maintain heart rate less than 100. INR 3.7 on 04/27, will hold home Coumadin until he returns to therapeutic range. Continue cardiac monitoring. 3. History of rectal cancer ? Remote history. In remission. 4. Class II obesity with intentional weight loss ? BMI 36 on admit. Patient reports taking tirzepatide for a few weeks prior for weight loss. Given his issues as above, tirzepatide will be discontinued on discharge. 5. Hypertension/hyperlipidemia ?Continue home diltiazem, statin and aspirin. Holding Benzapril and Lasix for now. 6. Depression ? Stable. Continue home sertraline. DVT prophylaxis: Not indicated, on warfarin CODE STATUS: Full code, verified Expected disposition: Home, TBD Total clinical time spent by myself addressing the patient's medical issues, reviewing all the data, and collaborating with patient's care team: 35 minutes. Charges/Coding Visit Charges Inpatient E&M: 75006 Subs Hosp L2
[2025-04-27] MEDS: 0.9% Saline Lock 10 ML Syringe IV (23:04)
[2025-04-28] VITALS (8 sets, daily range): BP systolic 101–146; BP diastolic 71–98; PULSE 63–154; RESP 18; TEMP 35.7–36.1; O2SAT 94–96
[2025-04-28] MEDS: 0.9% Saline Lock 10 ML Syringe IV ×2 (03:15→23:28)
--- NOTE | 2025-04-28 07:23 | PN.SURG_ITS ---
Subjective Subjective Patient was started on Reglan yesterday. He reports that he feels things moving along. He is passing some gas and had a liquid bowel movement. He denies any nausea or vomiting. Objective Data Objective Data Vital Signs: Vital Signs Temp Pulse Resp BP Pulse Ox O2 Del Method 96.3 F L 137 H 18 140/98 H 95 Room Air 04/28/25 03:00 04/28/25 03:15 04/28/25 03:00 04/28/25 03:00 04/28/25 03:00 04/28/25 03:00 Oxygen Delivery Method Room Air Weight: 263 lb 0.183 oz Body Mass Index (BMI) 36.6 Intake & Output: Intake and Output for Last 24 Hours 04/26/25 04/27/25 04/28/25 23:59 23:59 23:59 Intake Total 3107.02 / 3123.72 2287.24 / 2287.24 Output Total 850 / 1400 850 / 850 Balance 2257.02 / 1723.72 1437.24 / 1437.24 Lab / Micro Data 04/27/25 05:57 04/27/25 05:57 Micro: Microbiology 04/24/25 10:44 Stool Clostridioides difficile (PCR) - Final 04/24/25 10:32 Stool Enteric Bacteriology - Final Radiography Diagnostic Testing: Radiology Impression Small Bowel X-Ray 04/26/25 10:16 IMPRESSION: Persistent small bowel dilatation. Contrast is seen within the colon and rectum. Reading Location: [facility] Rhythm Strip Rhythm Strip: A-fib (Course atrial fibs versus fib flutter) Rate: 120 Physical Exam Const oriented x3 and no apparent distress Resp normal respiratory effort GI soft to palpation Inspection: abdominal distention Assessment & Plan Assessment/Plan (1) Small bowel obstruction: PLAN: Patient feels like things are moving along. He is passing gas. I will order another KUB to see how things look today but I will start him on clear liquids and I told him to take this very lightly and try no carbonation. Daniel Ramirez MD Pager: [facility] [address] [place] [address], [address] [place] [phone] Office:
--- NOTE | 2025-04-28 07:23 | RAD_ITS ---
PROCEDURE: ABDOMEN SINGLE VIEW (PORTABLE) 04/28/2025 REASON FOR EXAM: SBO TECHNIQUE: ABDOMEN SINGLE VIEW (PORTABLE) COMPARISON: X-ray abdomen 04/27/2025. FINDINGS: Bowel gas: Redemonstration of multiple dilated loops of small bowel measuring up to 3.5 cm previously measured up to 4.5 cm. There is faint visualization of contrast within large bowel loops finding are again suggestive of partial small-bowel obstruction. No definite evidence of free air. Calcifications: Multiple pelvic phleboliths. Bones: There are degenerative changes of the spine. There is increased distance between bilateral pubic symphysis measuring up to 20 mm is concerning or diastasis pubic symphysis. Other: None RAD/Abdomen Single View (Portable) IMPRESSION: 1. Interval slight decrease in distention of multiple dilated small bowel loops as mentioned above. 2. There is increased distance between pubic symphysis concerning for diastasis . Reading Location: [id number]
[2025-04-28 07:44] LABS: Hematocrit 44.7 % (40-54); Hemoglobin 15.1 g/dL (13.0-16.5); Mean Corp Hgb Conc 33.8 g/dL (32-36); Mean Corpuscular Volume 92.4 fL (80-94); Mean Platelet Vol. 9.4 fl (6.2-12.0); Platelet Count 282 K/mm3 (150-450); RBC Distribution Width CV 14.0 % (11.6-14.6); RBC Distribution Width SD 47.4 fl (35.1-43.9); Red Blood Count 4.84 M/mm3 (4.6-6.2); White Blood Count 8.9 K/mm3 (4.4-11.0)
[2025-04-28] MEDS: Cholecalciferol (VIT D3) 25 MCG TABLET (1,000 UNITS) 50 MCG PO (07:47)
[2025-04-28] MEDS: Aspirin E.C. 81 MG Tablet PO (07:48)
[2025-04-28 08:08] LABS: Anion Gap 12 (5-15); BUN 33 mg/dL (4-19); BUN/Creat Ratio 41.9 RATIO (10-20); Calcium,Total 8.9 mg/dL (7.6-11.0); Carbon Dioxide 18.3 mmol/L (21.0-32.0); Chloride 108 mmol/L (98-108); Estimated Creatinine Clearance 117.74 ml/min (50-250); Glucose 92 mg/dL (70-99); Potassium 4.0 mmol/L (3.3-5.1)
[2025-04-28 08:20] LABS: Prothrombin Time (Protime)PT. 29.4 SECONDS (11.7-14.9)
--- NOTE | 2025-04-28 11:01 | PCM.PN.HOSP ---
Reason for Visit Chief Complaint: syncope Subjective Subjective Saw patient at bedside this morning. Patient was sitting back comfortably in bed and conversing normally. Was seen by surgery this morning who noted patient was clinically improving and initiated him on a clear liquid diet. KUB showed slight interval decrease in distention of dilated bowel loops. Patient does report feeling better today compared to yesterday and was tolerating liquids without issue to this point. No other new concerns at morning. Objective Data Objective Data Vital Signs: Vital Signs Temp Pulse Resp BP Pulse Ox O2 Del Method 96.8 F L 98 18 131/71 H 95 Room Air 04/28/25 09:37 04/28/25 09:37 04/28/25 09:37 04/28/25 09:37 04/28/25 09:37 04/28/25 09:37 Oxygen Delivery Method Room Air Weight: 119.3 kg Body Mass Index (BMI) 36.6 Intake & Output: Intake and Output for Last 24 Hours 04/26/25 04/27/25 04/28/25 23:59 23:59 23:59 Intake Total 3107.02 / 3123.72 2287.24 / 2287.24 Output Total 850 / 1400 850 / 850 Balance 2257.02 / 1723.72 1437.24 / 1437.24 Lab / Micro Data 04/28/25 06:50 04/28/25 06:50 Labs: Laboratory Results - last 24 hr 04/28/25 06:50: WBC 8.9, RBC 4.84, Hgb 15.1, Hct 44.7, MCV 92.4, MCH 31.2, MCHC 33.8, RDW Std Deviation 47.4 H, RDW Coeff of [place] 14.0, Plt Count 282, MPV 9.4, PT 29.4 H, INR 2.7, Sodium 139, Potassium 4.0, Chloride 108, Carbon Dioxide 18.3 L, Anion Gap 12, BUN 33 H, Creatinine 0.79, Estim Creat Clear Calc 117.74, Est GFR (MDRD) Non-Af 98, BUN/Creatinine Ratio 41.9 H, Glucose 92, Calcium 8.9 Micro: Microbiology 04/24/25 10:44 Stool Clostridioides difficile (PCR) - Final 04/24/25 10:32 Stool Enteric Bacteriology - Final Radiography Diagnostic Testing: Radiology Impression Small Bowel X-Ray 04/26/25 10:16 IMPRESSION: Persistent small bowel dilatation. Contrast is seen within the colon and rectum. Reading Location: [facility] KUB X-Ray 04/28/25 07:23 IMPRESSION: 1. Interval slight decrease in distention of multiple dilated small bowel loops as mentioned above. 2. There is increased distance between pubic symphysis concerning for diastasis. Reading Location: [id number] Rhythm Strip Rhythm Strip: A-fib (Course atrial fibs versus fib flutter) Rate: 120 Physical Exam Const alert, oriented x3 and no apparent distress Constitutional Narrative: Elderly male, class II obesity, mildly fatigued appearing but otherwise sitting back comfortably in bed, conversing normally, in no acute distress. Stable. General Appearance: cooperative and comfortable HEENT normocephalic, head/scalp atraumatic, hearing grossly normal bilaterally, nasal mucous membranes and turbinates normal and moist oral mucous membranes Eyes PERRL, EOMs intact bilaterally and conjunctivae normal Neck full ROM Chest inspection of chest normal Resp normal respiratory effort, normal air movement, no use of accessory muscles and clear to auscultation bilaterally Cardio no murmurs and peripheral pulses 2+ throughout Cardio Narrative: A-fib, rate controlled. GI GI Narrative: Abdomen distended but soft and nontender to palpation. Hypoactive bowel sounds noted. Stable. Back/Spine normal ROM Extremity normal to inspection, full ROM and no pedal edema Skin no rashes or lesions noted Psych mental status grossly normal Assessment & Plan Assessment/Plan (1) Small bowel obstruction: (2) Diarrhea: PLAN: Plan Patient is a 65-year-old male who presented to [facility] ED on 04/24/2025 after a syncopal episode. 1. Small bowel obstruction versus ileus ? Surgery following. Presented with abdominal distention and acute diarrhea. Suspected that diarrhea was primarily due to tirzepatide patient has been taking for weight loss as below. CT abdomen pelvis on admit showed concern for small bowel obstruction versus ileus. Unfortunately patient had 3 unsuccessful attempts at NG tube placement. Small bowel follow-through study was done and shows contrast in the large bowel; KUB showed a picture most consistent with dense ileus. Per surgery, not planning for surgical intervention at this time. Initiated on Reglan on 04/27 and KUB on 04/28 showed interval slight decrease in distention of small bowel loops. Per surgery, initiated on clear liquid diet on morning of 04/28 and they will advance as tolerated. 2. A-fib with RVR on Coumadin ? Cardiology following. Known history of A-fib with RVR. Underwent pulmonary vein isolation procedure at [facility] in September 2024. This is the first documented time patient has been out of sinus rhythm since then. Presume secondary to small bowel obstruction versus ileus as above. Initiated on IV amiodarone with improvement in rate control at rest, though rate does worsen to the 120s with exertion. De-escalated to p.o. amiodarone on 04/27. Continue home diltiazem. IV Lopressor added as needed to maintain heart rate less than 100. INR 3.7 on 04/27, holding home Coumadin until he returns to therapeutic range. Continue cardiac monitoring. 3. History of rectal cancer ? Remote history. In remission. 4. Class II obesity with intentional weight loss ? BMI 36 on admit. Patient reports taking tirzepatide for a few weeks prior for weight loss. Given his issues as above, tirzepatide will be discontinued on discharge. 5. Hypertension/hyperlipidemia ?Continue home diltiazem, statin and aspirin. Holding Benzapril and Lasix for now. 6. Depression ? Stable. Continue home sertraline. DVT prophylaxis: Not indicated, on warfarin CODE STATUS: Full code, verified Expected disposition: Home, TBD Total clinical time spent by myself addressing the patient's medical issues, reviewing all the data, and collaborating with patient's care team: 35 minutes. Charges/Coding Visit Charges Inpatient E&M: 86453 Subs Hosp L2
--- NOTE | 2025-04-28 14:35 | CASEMGMT ---
OLY KAN Assessment: RN CM to room to meet with pt for initial transition planning/care coordination assessment. OLY KAN introduced self and role at [facility], pt voices understanding and consents to assessment. Pt sitting up in chair in room in no distress, sitting at bedside. Pt is A&O and answers all questions appropriately at this time. Care providers, pharmacy, and demographics verified/updated. Strata: 3 PCP: Dr Membreno Specialists: Dr Rodriguez, Hao Bird/REY - Government Employee, Dr Ordonez - Pain management, Dr Childers - Radiation Onc., Dr Quesada - Oncology, Dr Martin Razo - Skill Labor, Dr Villeda - [facility], Dr Ramirez-surgeon. Preferred Pharmacy: [facility] Insurance: Medicare, [employer] Prescription Benefit: yes LNOK: Myriam - , Myriam. 2 adult children Living Arrangements: Pt lives with and son in a ranch home with 2 steps to enter. Pt states I with ADL's and IADL's and manages his own medications. Transportation: Pt and both drive. DME: CPAP HHC/SNF: Denies Hx of either. Pt has gone to [facility] for OP therapy in the past. Pt wishes to return home and states has no concerns with going home at time of discharge.? PLAN:??Home Julian VINCENT?RN?CM
[2025-04-29] VITALS (12 sets, daily range): BP systolic 105–156; BP diastolic 70–81; PULSE 82–168; RESP 18; TEMP 35.9–36.8; O2SAT 92–97
[2025-04-29] MEDS: 0.9% Saline Lock 10 ML Syringe IV ×3 (02:24→14:20)
[2025-04-29 07:37] LABS: Hematocrit 46.0 % (40-54); Hemoglobin 15.8 g/dL (13.0-16.5); Mean Corp Hgb Conc 34.3 g/dL (32-36); Mean Corpuscular Volume 90.9 fL (80-94); Mean Platelet Vol. 9.5 fl (6.2-12.0); Platelet Count 299 K/mm3 (150-450); RBC Distribution Width CV 13.6 % (11.6-14.6); RBC Distribution Width SD 45.8 fl (35.1-43.9); Red Blood Count 5.06 M/mm3 (4.6-6.2); White Blood Count 6.7 K/mm3 (4.4-11.0)
[2025-04-29 08:04] LABS: Anion Gap 15 (5-15); BUN 39 mg/dL (4-19); BUN/Creat Ratio 41.4 RATIO (10-20); Calcium,Total 9.3 mg/dL (7.6-11.0); Carbon Dioxide 19.2 mmol/L (21.0-32.0); Chloride 103 mmol/L (98-108); Estimated Creatinine Clearance 100.20 ml/min (50-250); Glucose 130 mg/dL (70-99); Potassium 3.8 mmol/L (3.3-5.1)
[2025-04-29 08:07] LABS: Prothrombin Time (Protime)PT. 25.3 SECONDS (11.7-14.9)
[2025-04-29] MEDS: Cholecalciferol (VIT D3) 25 MCG TABLET (1,000 UNITS) 50 MCG PO (08:14)
[2025-04-29] MEDS: Aspirin E.C. 81 MG Tablet PO (08:15)
--- NOTE | 2025-04-29 09:01 | PN.SURG_ITS ---
Subjective Subjective The patient reports he is not doing well this morning. He says he tolerated diet yesterday evening but overnight he became more bloated and stopped passing flatus. He denies vomiting or nausea. He is just very bloated. Objective Data Objective Data Vital Signs: Vital Signs Temp Pulse Resp BP Pulse Ox O2 Del Method 98.0 F 82 18 152/76 H 96 Room Air 04/29/25 08:12 04/29/25 08:12 04/29/25 08:12 04/29/25 08:12 04/29/25 08:12 04/29/25 08:12 Oxygen Delivery Method Room Air Weight: 263 lb 0.183 oz Body Mass Index (BMI) 36.6 Intake & Output: Intake and Output for Last 24 Hours 04/27/25 04/28/25 04/29/25 23:59 23:59 23:59 Intake Total 2287.24 / 2287.24 920 / 920 Output Total 850 / 850 Balance 1437.24 / 1437.24 920 / 920 Lab / Micro Data 04/29/25 06:41 04/29/25 06:41 Labs: Laboratory Results - last 24 hr 04/29/25 06:41: WBC 6.7, RBC 5.06, Hgb 15.8, Hct 46.0, MCV 90.9, MCH 31.2, MCHC 34.3, RDW Std Deviation 45.8 H, RDW Coeff of [place] 13.6, Plt Count 299, MPV 9.5, P T 25.3 H, INR 2.2, Sodium 137, Potassium 3.8, Chloride 103, Carbon Dioxide 19.2 L, Anion Gap 15, BUN 39 H, Creatinine 0.94, Estim Creat Clear Calc 100.20, Est GFR (MDRD) Non-Af 88, BUN/Creatinine Ratio 41.4 H, Glucose 130 H, Calcium 9.3 Micro: Microbiology 04/24/25 10:44 Stool Clostridioides difficile (PCR) - Final 04/24/25 10:32 Stool Enteric Bacteriology - Final Rhythm Strip Rhythm Strip: A-fib (Course atrial fibs versus fib flutter) Rate: 120 Physical Exam Const oriented x3 and no apparent distress Resp normal respiratory effort GI soft to palpation Inspection: abdominal distention Palpation: tender Assessment & Plan Assessment/Plan (1) Small bowel obstruction: PLAN: The patient was tolerating clear liquids yesterday but overnight became more bloated. I would like to order a CT scan to evaluate if this is stomach versus small bowel causing the issue. There was question of gastroparesis and the patient has been on Reglan. Daniel Ramirez MD Pager: [facility] [address] [place] [address], [address] [place] [address] Office:
--- NOTE | 2025-04-29 09:30 | CT_ITS ---
PROCEDURE: ABDOMEN/PELVIS W IV CONT ONLY 04/29/2025 REASON FOR EXAM: SBO TECHNIQUE: ABDOMEN/PELVIS W IV CONT ONLY Coronal and Sagittal reconstruction series were provided. CONTRAST: Isovue 370 VOLUME: 75 mL One or more dose reduction techniques were used (e.g., Automated exposure control, adjustment of the mA and/or kV according to patient size, use of iterative reconstruction technique. RADIATION DOSE SUMMARY: CTDlvol: 9.11, 21.1, 21.1, 19.0 mGy DLP: 3524 mGycm FINDINGS: LUNG BASES: Patchy opacity in the right lower lobe, new since the prior study. Moderately elevated left hemidiaphragm with left lower lobe compressive atelectasis. Central line tip terminating in the right atrium. Fluid containing esophagus with mild diffuse wall thickening. LIVER: No focal liver lesion. Portal venous gas scattered in the liver, greatest in the left lobe. GALLBLADDER: Vicarious gallbladder contrast excretion. BILE DUCTS: No ductal dilation. PANCREAS: Unremarkable. SPLEEN: Unremarkable. ADRENAL GLANDS: Unremarkable. KIDNEYS: The kidneys enhance symmetrically. Hypodense 4.4 mm right renal focus, too small to further characterize. No hydronephrosis or hydroureter. STOMACH AND BOWEL: Interval worsening of gastric and small bowel dilation since the prior study. No definite transition point seen, however the distal small bowel loops are normal in caliber or decompressed. Areas of small bowel pneumatosis, adjacent fat stranding and mesenteric venous gas in the central lower abdomen. Air and fluid present in the distal small bowel and right colon. Colonic diverticulosis. No CT evidence of colitis or acute diverticulitis. APPENDIX: The appendix is not definitively seen. No pericecal inflammatory changes. RETRO/PERITONEUM: No free fluid. No focal fluid collection. LYMPH NODES: No lymphadenopathy. PELVIC ORGANS: Unremarkable as visualized. VASCULATURE: No aortic aneurysm. ABDOMINAL WALL AND SOFT TISSUES: Small fat-containing right periumbilical and right inguinal hernias. BONES: No fracture or suspicious osseous abnormality. Bilateral L4-L5 and L5-S1 facet arthropathy. Grade 1 anterolisthesis of L4 on L5. Diastasis of the symphysis pubis again seen measuring 1.2 cm. Arthritic changes of both hips. Deformity of the left femoral head and neck, possibly due to prior fracture. CT/Abdomen/Pelvis W IV Cont ONLY IMPRESSION: 1. Worsening gastric and small-bowel dilation. No definite small bowel transit ion point seen, however the distal small bowel loops are nondistended. Early or partial small bowel obstruction is possible. 2. Small bowel pneumatosis with mesenteric and portal venous gas, suggests acu te ischemic enteritis and/or mesenteric ischemia. 3. Patchy right lower lobe opacity, likely pneumonia. Reading Location: [id number]
--- NOTE | 2025-04-29 11:21 | RAD_ITS ---
PROCEDURE: ABDOMEN SINGLE VIEW (PORTABLE) 04/29/2025 REASON FOR EXAM: NG PLACEMENT TECHNIQUE: ABDOMEN SINGLE VIEW (PORTABLE) COMPARISON: 04/28/2025 FINDINGS: LINES: Right chest port tip terminating at the cavoatrial junction. Nasogastric tube tip terminating in the distal gastric body. LUNG BASES: Small opacities in both lung bases.. BOWEL: The small bowel loops remain dilated. PERITONEUM/SOFT TISSUES: No appreciable free air. No abnormal calcifications. BONES: No acute osseous abnormality. RAD/Abdomen Single View (Portable) IMPRESSION: 1. Well-positioned nasogastric tube. 2. Persistent small bowel distention. Reading Location: [id number]
--- NOTE | 2025-04-29 11:34 | PCM.PN.BLA ---
Progress Note The patient's CAT scan from this morning revealed pneumatosis with portal venous gas and mesenteric ischemia. The patient's INR is 2.2 from this morning. Patient is in A-fib RVR currently. I had tried taking him to surgery here but anesthesia is concerned over the A-fib RVR with anticoagulation INR blood products and decreased staff on the weekend. Anesthesia recommended transfer. I discussed with general surgery at [facility] who accepted the patient in a floor to ER transfer. I discussed this with the patient and he is agreeable. Daniel Ramirez MD Pager: [facility] [address] [place] [address], [address] [place] [address] Office:
--- NOTE | 2025-04-29 12:29 | NURSING ---
Report called to Zurdoa JUWAN Fragoso
[2025-04-29] MEDS: Tetracaine/Benzocaine/Butamben 2 APPLIC TOPICAL (13:43)
--- NOTE | 2025-04-29 14:54 | PCM.DC.SUM ---
Providers Date of Admission: 04/24/25 Date of Discharge: 04/29/25 Primary Care Physician: Dr. Hao Membreno MD Consultations 04/25/25 10:58 Consult: General Surgery Routine Consulting Provider: Francis Crowley Reason for Consult: possible early small bosel obstruction v ileus EMERGENT Consult: No Notified: Yes Date Notified: 04/25/25 Time Notified: 10:58 Method of Notification: Text 04/26/25 11:35 Consult: Cardiology Routine Consulting Provider: Wili Youngblood Reason for Consult: afib with RVR EMERGENT Consult: No Notified: Yes Date Notified: 04/26/25 Time Notified: 11:35 Method of Notification: Text Reason For Visit: SRINIVAS, DEHYDRATION Diagnosis Discharge Diagnosis (1) Small bowel obstruction: Status: Acute Code(s): K56.609 - Unspecified intestinal obstruction, unspecified as to partial versus complete obstruction Plan 1. Partial small bowel obstruction #2 paroxysmal atrial fibs with RVR #3 essential hypertension #4 hyperlipidemia #5 chronic depression Medications at Discharge Home Medications cholecalciferol (vitamin D3) 50 mcg (2,000 unit) capsule 2,000 unit PO DAILY supplement 06/16/19 furosemide 40 mg tablet 40 mg PO DAILY diuretic 06/16/19 benazepril 20 mg tablet 20 mg PO DAILY blood pressure 01/09/21 sertraline 50 mg tablet 50 mg PO QHS depression 01/09/21 omeprazole 20 mg capsule,delayed release 20 mg PO Q OTHER DAY GERD 10/25/21 aspirin 81 mg tablet,delayed release (Enteric Coated Aspirin) 81 mg PO DAILY heart #90 tabs 01/15/24 warfarin 5 mg tablet 7 mg PO MOTUWETHFR blood thinner 02/14/24 acetaminophen 500 mg tablet (Tylenol Extra Strength) 500 mg PO Q6H PRN pain 06/09/24 rosuvastatin 5 mg tablet (Crestor) 5 mg PO Q OTHER DAY cholesterol #45 tabs 01/12/25 tirzepatide (weight loss) 2.5 mg/0.5 mL subcutaneous pen injector (Zepbound) 7.5 mg subcut KOEHLER 02/03/25 warfarin 5 mg tablet 8 mg PO SUSA 03/23/25 diltiazem HCl 300 mg capsule,extended release 24 hr 300 mg PO QDAY heart #90 caps 04/18/25 Hospital Course Operations None Procedures Transthoracic echo Summary of Care Provided Minutes Spent on Discharge: 31 Hospital Course: 65-year-old white male was seen in the emergency room at [facility] with complaints of diarrhea and near syncope. Patient stated he had multiple episodes of diarrhea over the past several days, patient denied any nausea abdominal pain fever chills. Labs obtained in the emergency room included a CBC which showed a normal white blood cell count and an elevated hemoglobin, chemistry profile was remarkable for creatinine of 2.45. CT of the abdomen pelvis showed fatty filtration of the liver in the stomach was distended with fluid. Chest x-ray was unremarkable. Patient was admitted for SRINIVAS and given IV fluids, follow-up labs were obtained, patient was seen in consultation by general surgery after a KUB the following morning showed dilated loops of small bowel concerning for ileus versus mall bowel obstruction. An NG was not placed and surgery recommended a follow-up KUB. The following day, an NG tube was placed and the patient continued to be NPO. Patient then developed a tachycardia at 145 bpm-EKG appeared to show atrial flutter with a 2-1 conduction, cardiology was consulted the patient had been placed on IV Cardizem and this was discontinued because it was not controlling the patient's rate. Patient was placed on IV amiodarone, an echocardiogram was obtained which showed normal EF. Patient began passing gas and had liquid bowel movements, NG was discontinued and the patient was placed on a clear liquid diet. Patient's creatinine returned to normal, heart rate was controlled with amiodarone and Lopressor. Surgery ordered a CAT scan on 04/29/2025 which revealed pneumatosis with portal venous gas and mesenteric ischemia, patient's INR at that point was 2.2, surgery had plan for the patient to go to surgery but anesthesia here felt that the patient was too high risk for this institution and recommended transfer to another facility. [facility] was contacted and accepted the patient and recommend the patient go to the emergency room at [facility]. Patient was agreeable to this and was transferred to [facility] for further care. On 04/29/2025, patient was seen and examined: On examination he appeared in good health and spirits. Vital signs as documented. Skin warm and dry and without overt rashes. Neck without JVD, neck was supple, trachea midline, thyroid was normal. Lungs clear bilaterally, normal air movement was noted. Heart exam notable for irregular rhythm, normal sounds and absence of murmurs, rubs or gallops. Abdomen unremarkable and without evidence of organomegaly, masses, or abdominal aortic enlargement. Bowel sounds are present, abdomen is not distended. Extremities nonedematous, no cyanosis was noted, no clubbing was noted. Neuro: Cranial nerves II through XII are grossly intact, no focal motor deficits were noted, sensation to light touch and pinprick intact, motor exam 5/5 throughout. Psych: Patient is alert and oriented x3, he does not appear anxious or depressed, he does not appear agitated. Patient was transferred to [facility] in stable condition on 04/29/2025 Weight / BMI Weight Weight: 119.3 kg Body Mass Index (BMI) 36.6 ABG / Lab / Microbiology Data 04/29/25 06:41 04/29/25 06:41 Laboratory: Laboratory Results - last 24 hr 04/29/25 06:41: WBC 6.7, RBC 5.06, Hgb 15.8, Hct 46.0, MCV 90.9, MCH 31.2, MCHC 34.3, RDW Std Deviation 45.8 H, RDW Coeff of [place] 13.6, Plt Count 299, MPV 9.5, PT 25.3 H, INR 2.2, Sodium 137, Potassium 3.8, Chloride 103, Carbon Dioxide 19.2 L, Anion Gap 15, BUN 39 H, Creatinine 0.94, Estim Creat Clear Calc 100.20, Est GFR (MDRD) Non-Af 88, BUN/Creatinine Ratio 41.4 H, Glucose 130 H, Calcium 9.3 04/29/25 12:10: Blood Type A POSITIVE, Antibody Screen NEGATIVE Microbiology: Microbiology 04/24/25 10:44 Stool Clostridioides difficile (PCR) - Final 04/24/25 10:32 Stool Enteric Bacteriology - Final Radiography Diagnostic Testing: Radiology Impression Abdomen/Pelvis CT 04/29/25 09:30 IMPRESSION: 1. Worsening gastric and small-bowel dilation. No definite small bowel transition point seen, however the distal small bowel loops are nondistended. Early or partial small bowel obstruction is possible. 2. Small bowel pneumatosis with mesenteric and portal venous gas, suggests acute ischemic enteritis and/or mesenteric ischemia. 3. Patchy right lower lobe opacity, likely pneumonia. Reading Location: [facility] KUB X-Ray 04/29/25 11:21 IMPRESSION: 1. Well-positioned nasogastric tube. 2. Persistent small bowel distention. Reading Location: [facility] D/C Instructions DC O2, CPAP, BIPAP Needs Home O2 Discharge instructions: No Meaningful Use Info Meaningful Use Meaningful Use Diagnoses (Choose all that apply): None applicable Discharge Plan Admission Admit Date/Time: 04/24/25 08:28 Attending Provider: Kevin Veras Primary Care Provider: Hao Membreno Consulting Providers: Francis Crowley; Wili Youngblood; Lilo Castellanos; Blaise Amaya Discharge Orders/Prescriptions Prescriptions: No Action benazepril 20 mg tablet 20 mg PO DAILY Patient Comments: TAKE 1 TABLET BY MOUTH EVERY DAY sertraline 50 mg tablet 50 mg PO QHS acetaminophen [Tylenol Extra Strength] 500 mg tablet 500 mg PO Q6H PRN (Reason: pain) Zepbound 2.5 mg/0.5 mL pen injector 7.5 mg subcut KOEHLER Rx Instructions: for 4 weeks cholecalciferol (vitamin D3) 2,000 UNIT capsule 2,000 unit PO DAILY omeprazole 20 mg capsule,delayed release(DR/EC) 20 mg PO Q OTHER DAY warfarin 5 mg tablet 8 mg PO SUSA Protocol: Dose Management Condition: Thursday Dose/Route: 7.5 mg Instruction: 1.5 x 5 mg tablets Condition: Thursday Dose/Route: 7.5 mg Instruction: 1.5 x 5 mg tablets Condition: Thursday Dose/Route: 7.5 mg Instruction: 1.5 x 5 mg tablets Condition: Thursday Dose/Route: 7.5 mg Instruction: 1.5 x 5 mg tablets Condition: Dose/Route: 7.5 mg Instruction: 1.5 x 5 mg tablets Condition: Thursday Dose/Route: 7.5 mg Instruction: 1.5 x 5 mg tablets Condition: Thursday Dose/Route: 7.5 mg Instruction: 1.5 x 5 mg tablets Protocol Text: Adjustment Start Date: Thursday05/02/25 INR Value: 2.2 INR Date: 04/29/25 Recheck Date: 05/03/25 warfarin 5 mg tablet 7 mg PO MOTUWETHFR Protocol: Dose Management Condition: Thursday Dose/Route: 7.5 mg Instruction: 1.5 x 5 mg tablets Condition: Thursday Dose/Route: 7.5 mg Instruction: 1.5 x 5 mg tablets Condition: Thursday Dose/Route: 7.5 mg Instruction: 1.5 x 5 mg tablets Condition: Thursday Dose/Route: 7.5 mg Instruction: 1.5 x 5 mg tablets Condition: Dose/Route: 7.5 mg Instruction: 1.5 x 5 mg tablets Condition: Thursday Dose/Route: 7.5 mg Instruction: 1.5 x 5 mg tablets Condition: Thursday Dose/Route: 7.5 mg Instruction: 1.5 x 5 mg tablets Protocol Text: Adjustment Start Date: Thursday05/02/25 INR Value: 2.2 INR Date: 04/29/25 Recheck Date: 05/03/25 Rx Instructions: 7 MG ON WEEKDAYS 8 MG ON WEEKENDS furosemide 40 mg tablet 40 mg PO DAILY aspirin [Enteric Coated Aspirin] 81 mg tablet,delayed release (DR/EC) 81 mg PO DAILY Qty: 90 3RF rosuvastatin [Crestor] 5 mg tablet 5 mg PO Q OTHER DAY Qty: 45 3RF diltiazem HCl 300 mg capsule,extended release 24hr 300 mg PO QDAY Qty: 90 3RF Referrals / Follow Up: Hao Membreno MD [Primary Care Provider] - Disposition Disposition (needs filled in before D/C Order can be placed): DC/Tx to Another Type of HCF Charges/Coding Visit Charges Inpatient E&M: 38153 Disch Hosp >30min
== END 2025-04-29 16:28 | disposition short-term general hospital (02) | DRG 683 ==
LOC: ED 08:11 → PCU 08:54
PROVIDERS: Hospitalist; Admitting Provider Student in an Organized Health Care Education/Training Program; Emergency Provider Student in an Organized Health Care Education/Training Program; PCP Family Medicine; Visit Provider Internal Medicine
DX: N17.9 Acute kidney failure, unspecified (principal); K56.609 Unspecified intestinal obstruction, unspecified as to partial versus complete obstruction; Z66 Do not resuscitate; E66.812 Obesity, class 2; I48.0 Paroxysmal atrial fibrillation; E86.0 Dehydration; I10 Essential (primary) hypertension; K76.0 Fatty (change of) liver, not elsewhere classified; F32.A Depression, unspecified; K52.9 Noninfective gastroenteritis and colitis, unspecified; K21.9 Gastro-esophageal reflux disease without esophagitis; K57.30 Diverticulosis of large intestine without perforation or abscess without bleeding; E78.5 Hyperlipidemia, unspecified; R55 Syncope and collapse; Z68.36 Body mass index [BMI] 36.0-36.9, adult; Z79.82 Long term (current) use of aspirin; Z79.01 Long term (current) use 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s; Z86.718 Personal history of other venous thrombosis and embolism; Z86.711 Personal history of pulmonary embolism; Z79.85 Long-term (current) use of injectable non-insulin antidiabetic drugs; Z82.49 Family history of ischemic heart disease and other diseases of the circulatory system; Z99.89 Dependence on other enabling machines and devices
CPT/HCPCS: 36415; 36591; 70450; 71046; 72125; 74018; 74019; 74177; 74250; 80048; 80053; 81001; 83605; 83690; 83735; 84484; 85025; 85027; 85610; 86850; 86900; 86901; 87493; 87506; 93005; 93306; 97802; 99285; P9017; Q9957; Q9967; A4216; J2405

== ENCOUNTER → 2025-05-12 | Outpatient (CLI) | payer MEDICARE, OTHER, SELFPAY ==
[2025-05-12 15:38] LABS: Prothrombin Time (Protime)PT. 20.8 SECONDS (11.7-14.9)
== END | disposition home or self-care (01) ==
LOC: MFPLAB 11:21
PROVIDERS: PCP Family Medicine; Visit Provider Nurse Practitioner Family
DX: Z79.01 Long term (current) use 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s (principal)
CPT/HCPCS: 36415; 85610

== ENCOUNTER → 2025-07-18 | Outpatient (CLI) | payer MEDICARE, OTHER, SELFPAY ==
[2025-07-18 18:17] LABS: PSA,Total - Annual Screen 0.36 ng/mL (0.02-4.00)
== END | disposition home or self-care (01) ==
LOC: MFPLAB 15:37
PROVIDERS: PCP Family Medicine; Visit Provider Nurse Practitioner Family
DX: Z12.5 Encounter for screening for malignant neoplasm of prostate (principal)
CPT/HCPCS: 36415; 84153; G0103

== ENCOUNTER → 2025-08-03 | Outpatient (CLI) | payer MEDICARE, OTHER, SELFPAY ==
[2025-08-03 17:52] LABS: Prothrombin Time (Protime)PT. 29.2 SECONDS (11.7-14.9)
== END | disposition home or self-care (01) ==
LOC: LABSPEC 11:22
PROVIDERS: PCP Family Medicine; Visit Provider Physician Assistant Surgical
DX: R31.9 Hematuria, unspecified (principal); Z79.01 Long term (current) use 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s
CPT/HCPCS: 36415; 85610; 87086; 87088

== ENCOUNTER → 2025-08-07 | Outpatient (CLI) | payer MEDICARE, OTHER, SELFPAY ==
[2025-08-07 09:17] LABS: Prothrombin Time (Protime)PT. 29.7 SECONDS (11.7-14.9)
== END | disposition home or self-care (01) ==
LOC: LAB 08:37
PROVIDERS: PCP Family Medicine; Referring Provider Internal Medicine Cardiovascular Disease; Visit Provider Internal Medicine Cardiovascular Disease
DX: I48.0 Paroxysmal atrial fibrillation (principal); Z79.01 Long term (current) use 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s; Z86.718 Personal history of other venous thrombosis and embolism
CPT/HCPCS: 36415; 85610